=== PATIENT | male | born 1945 | race Caucasian/White ===

== ENCOUNTER → 2021-10-15 09:26 | Outpatient (BNVA) | payer MEDICARE, SELFPAY | PROVIDERS: Visit Provider Surgery | DX: L97.909 Non-pressure chronic ulcer of unspecified part of unspecified lower leg with unspecified severity (principal) | CPT/HCPCS: 99202 ==

== ENCOUNTER 2021-10-23 07:44 | Outpatient (RCR) | payer MEDICARE, SELFPAY | END 2022-02-25 11:08 | disposition home or self-care (01) | LOC: HO.WCC 07:44 | PROVIDERS: PCP Internal Medicine; Visit Provider Surgery | DX: L97.522 Non-pressure chronic ulcer of other part of left foot with fat layer exposed (principal); L97.512 Non-pressure chronic ulcer of other part of right foot with fat layer exposed; S91.002D Unspecified open wound, left ankle, subsequent encounter; L95.9 Vasculitis limited to the skin, unspecified; L03.116 Cellulitis of left lower limb; R60.0 Localized edema; Z79.891 Long term (current) use of opiate analgesic; Z79.52 Long term (current) use of systemic steroids; Z79.899 Other long term (current) drug therapy; Z87.891 Personal history of nicotine dependence | CPT/HCPCS: 11042; 99202; 99212; 99213; 99214; 99215 ==

== ENCOUNTER 2021-10-31 12:16 | Outpatient (REF) | payer MEDICARE, SELFPAY ==
[2021-10-31 13:38] LABS: MANUAL DIFF FLAG NO
[2021-10-31 13:49] LABS: Basophils Absolute Auto 0.1 X10*3/uL (0.0-0.2); Basophils Percent Auto 0.8 % (0-2); Eosinophils Absolute Auto 0.6 X10*3/uL (0.0-0.4); Eosinophils Percent Auto 6.4 % (0-4); Hematocrit 49.7 % (42.0-52.0); Hemoglobin 16.1 g/dl (14.0-18.0); Imm Gran Abs Auto 0.03 X10*3/uL (0.00-0.03); Imm Gran Pct Auto 0.3 % (0.0-0.4); Lymphocytes Absolute Auto 2.2 X10*3/uL (1.2-4.9); Lymphocytes Percent Auto 23.4 % (20-40); Mean Corpuscular HGB Conc 32.4 g/dl (31.0-36.0); Mean Corpuscular Hemoglobin 28.6 pg (27.0-33.0); Mean Corpuscular Volume 88.4 fL (80.0-98.0); Mean Platelet Volume 9.4 fL (9.4-12.4); Monocytes Absolute Auto 0.7 X10*3/uL (0.1-1.2); Monocytes Percent Auto 7.2 % (2-11); Neutrophils Absolute Auto 5.8 x10*3/uL (2.0-8.3); Neutrophils Percent Auto 61.9 % (45-73); Platelet Count 282 X10*3/uL (160-400); Red Blood Count 5.62 X10*6/uL (4.60-5.80); Red Cell Distribution Width 14.9 % (11.0-16.0); White Blood Count 9.3 X10*3/uL (4.8-10.8)
[2021-10-31 13:57] LABS: Alanine Aminotransferase 19 U/L (0-40); Albumin Level 4.4 g/dL (3.5-5.0); Alkaline Phosphatase 45 U/L (39-117); Anion Gap 13 (12-20); Aspartate Amino Transferase 21 U/L (5-37); Bilirubin Total 0.9 mg/dL (0.0-1.0); Blood Urea Nitrogen 25 mg/dL (9-16); Calcium 10.2 mg/dL (8.4-10.2); Carbon Dioxide 30 mmol/L (22-29); Chloride 101 mmol/L (96-108); Cholesterol 210 mg/dL; Estimated Glomerular Filt Rate 45; Glucose Fasting 97 mg/dL (60-99); HDL Cholesterol 39 mg/dL; LDL Cholesterol Calculated 147 mg/dl; Potassium 4.5 mmol/L (3.3-5.1); Sodium 139 mmol/L (135-145); Total Protein 6.9 g/dL (6.5-8.0); Triglycerides 124 mg/dL
[2021-10-31 14:22] LABS: TSH reflex Free T4 1.73 uIU/mL (0.32-4.0); Vitamin D 25-OH Total 33.7 ng/mL (>30)
[2021-10-31 14:34] LABS: Folate 7.9 ng/mL (> or = 4.0); Vitamin B12 485 pg/mL (200-900)
== END 2021-10-31 12:17 | disposition home or self-care (01) ==
LOC: HO.HMGCLDS 12:16
PROVIDERS: Visit Provider Nurse Practitioner Family
DX: Z13.820 Encounter for screening for osteoporosis (principal); Z13.29 Encounter for screening for other suspected endocrine disorder; I10 Essential (primary) hypertension
CPT/HCPCS: 36415; 80053; 80061; 82306; 82607; 82746; 84443; 85025

== ENCOUNTER → 2021-11-05 11:44 | Outpatient (BNVA) | payer MEDICARE, SELFPAY | PROVIDERS: PCP Internal Medicine; Referring Provider Internal Medicine; Visit Provider Surgery | DX: L97.929 Non-pressure chronic ulcer of unspecified part of left lower leg with unspecified severity (principal); L97.919 Non-pressure chronic ulcer of unspecified part of right lower leg with unspecified severity | CPT/HCPCS: 99212 ==

== ENCOUNTER 2021-11-14 13:41 | Outpatient (REF) | payer MEDICARE, SELFPAY ==
[2021-11-14 16:36] LABS: Alanine Aminotransferase 19 U/L (0-40); Albumin Level 4.4 g/dL (3.5-5.0); Alkaline Phosphatase 43 U/L (39-117); Anion Gap 14 (12-20); Aspartate Amino Transferase 19 U/L (5-37); Bilirubin Total 0.6 mg/dL (0.0-1.0); Blood Urea Nitrogen 23 mg/dL (9-16); Calcium 10.4 mg/dL (8.4-10.2); Carbon Dioxide 28 mmol/L (22-29); Chloride 103 mmol/L (96-108); Estimated Glomerular Filt Rate 44; Glucose Random 84 mg/dL (60-115); Potassium 3.9 mmol/L (3.3-5.1); Sodium 141 mmol/L (135-145)
[2021-11-14 17:00] LABS: Erythrocyte Sedimentation Rate 2 MM/HR (0-15)
== END 2021-11-14 13:42 | disposition home or self-care (01) ==
LOC: HO.HMGCLDS 13:41
PROVIDERS: Visit Provider Nurse Practitioner Family
DX: R79.89 Other specified abnormal findings of blood chemistry (principal); M06.9 Rheumatoid arthritis, unspecified
CPT/HCPCS: 36415; 80053; 85652; 86140

== ENCOUNTER 2021-12-05 11:43 | Outpatient (REF) | payer MEDICARE, SELFPAY ==
[2021-12-09 13:41] LABS: Calcium (PTHI) 10.1 mg/dL (8.6-10.3); PTHI 50 pg/mL (16-77)
[2021-12-10 14:36] LABS: Calcium, Ionized 5.3 mg/dL (4.8-5.6)
== END 2021-12-05 11:44 | disposition home or self-care (01) ==
LOC: HO.HMGCLDS 11:43
PROVIDERS: PCP Internal Medicine; Visit Provider Nurse Practitioner Family
DX: E83.52 Hypercalcemia (principal)
CPT/HCPCS: 36415; 82310; 82330; 83970

== ENCOUNTER 2021-12-17 10:25 | Outpatient (REF) | payer MEDICARE, SELFPAY ==
--- NOTE | ~2021-12-17 | MR_ITS ---
EXAMINATION: MRI FOOT WITHOUT CONTRAST, LEFT CLINICAL INFORMATION: Nonhealing wound. Osteomyelitis. COMPARISON: Subsequent left foot CT dated 12/22/2021. TECHNIQUE: Multisequence MR imaging of the left foot was obtained without contrast on a high-field strength scanner. Examination was terminated prematurely due to patient discomfort. Sagittal STIR, sagittal T1, and axial STIR images were obtained. FINDINGS: Evaluation limited due to patient motion and incomplete image acquisition. BONE: Prominent degenerative cystic change at the angle of G[place]. Articular cartilage loss with underlying cerebral cystic change at the dorsal calcaneocuboid joint. Additional degenerative arthritis at the talonavicular and cuneonavicular joints. No prominent marrow edema to suggest acute osteomyelitis, however, evaluation is significantly limited. MUSCLES/TENDONS: The visualized flexor and extensor tendons are grossly intact, however, evaluation is limited due to motion. SOFT TISSUES: Dorsal subcutaneous edema. No organized fluid collection or abscess formation. MR/MR foot LT wo con IMPRESSION: Evaluation significantly limited due to patient motion and incomplete image acquisition. Dorsal subcutaneous edema without evidence of abscess formation. Findings could represent cellulitis in the appropriate clinical setting. No evidence of acute osteomyelitis.
== END 2021-12-17 10:26 | disposition home or self-care (01) ==
LOC: HO.MRI 10:25
PROVIDERS: Visit Provider Psychiatry & Neurology Neurology
DX: M86.9 Osteomyelitis, unspecified (principal)
CPT/HCPCS: 73718

== ENCOUNTER → 2021-12-19 13:52 | Outpatient (BNVA) | payer MEDICARE, SELFPAY | PROVIDERS: PCP Internal Medicine; Visit Provider Nurse Practitioner Family | DX: S81.802A Unspecified open wound, left lower leg, initial encounter (principal); M62.838 Other muscle spasm | CPT/HCPCS: 99202 ==

== ENCOUNTER 2021-12-22 11:13 | Inpatient (IN) | payer MEDICARE, SELFPAY ==
--- NOTE | ~2021-12-22 | XR_ITS ---
EXAMINATION: XR CHEST CLINICAL INFORMATION: Shortness of breath COMPARISON: None TECHNIQUE: Frontal view of the chest was obtained. FINDINGS: No focal consolidation. Bibasilar subsegmental atelectasis. No pleural effusion or pneumothorax. Normal heart size and pulmonary vascularity. No acute or suspicious osseous abnormalities. XR/XR chest 1V IMPRESSION: No acute findings. Bibasilar subsegmental atelectasis.
--- NOTE | ~2021-12-22 | CT_ITS ---
EXAMINATION: CT HEAD WITHOUT CONTRAST CLINICAL INFORMATION: Confusion. Patient is anticoagulated. COMPARISON: None TECHNIQUE: Contiguous axial imaging was performed from the skull base to vertex without intravenous administration of contrast. This CT examination was performed using dose optimization techniques as appropriate, variously including the following: *Automated exposure control *Adjustment of mA and/or kV according to patient size (this includes techniques or standardized protocols for targeted exams where dose is matched to indication/reason for exam; i.e. extremities or head) *Use of iterative reconstruction technique DLP: 782 mGy-cm FINDINGS: There is no evidence of an extra-axial collection. There is no evidence of intra-axial or extra-axial hemorrhage. The ventricles and extra-axial CSF spaces are prominent suggestive of mild generalized atrophy. There is nonspecific periventricular white matter disease. No mass, mass effect or infarct is seen. Review of bone windows is normal. Paranasal sinuses, mastoid air cells and middle ears are clear. CT/CT head/brain wo con IMPRESSION: No acute findings. Mild generalized atrophy and nonspecific periventricular white matter disease.
--- NOTE | ~2021-12-22 | US_ITS ---
EXAMINATION: US VENOUS WITH DOPPLER UPPER EXTREMITY, RIGHT CLINICAL INFORMATION: Upper extremity swelling. COMPARISON: None TECHNIQUE: Ultrasound of the upper extremity is performed using compression sonography and color and pulse Doppler flow with assessment of augmentation of flow. There is also imaging and Doppler assessment of the jugular and subclavian veins. Spectral analysis with color-flow imaging is performed. FINDINGS: Right: No evidence for deep venous thrombosis in the right internal jugular, subclavian, axillary and brachial veins. The right cephalic and basilic veins are patent. The subcutaneous soft tissues are unremarkable. Left: Positive deep venous thrombosis is seen in the left brachial vein. The left internal jugular, subclavian and axillary veins are patent. Positive superficial thrombus with prominent thrombus burden is seen in the left basilic vein proximally and to a lesser extent distally. Positive superficial thrombus is also seen in the left cephalic vein extending to the left forearm. Overlying mild subcutaneous edema is noted. US/US venous duplex UE BI IMPRESSION: 1. Positive deep venous thrombosis in the left brachial vein. Positive superficial thrombus in the left basilic and cephalic veins. 2. No evidence for deep venous thrombosis in the right upper extremity.
--- NOTE | ~2021-12-22 | CT_ITS ---
EXAMINATION: CT foot LT wo con CLINICAL INFORMATION: Reason for Exam r/o osteo nonhealing wound COMPARISON: Limited incomplete noncontrast MRI left foot 12/17/2021 TECHNIQUE: Axial images were obtained through the left foot without the administration of intravenous contrast. Multiplanar reformatted images were generated. Intravenous Contrast: None This CT examination was performed using dose optimization techniques as appropriate, variously including the following: *Automated exposure control *Adjustment of mA and/or kV according to patient size (this includes techniques or standardized protocols for targeted exams where dose is matched to indication/reason for exam; i.e. extremities or head) *Use of iterative reconstruction technique DLP: 219 mGy-cm FINDINGS: No acute fracture or dislocation. No ankle joint effusion. No osseous destructive change or periosteal reaction. Osteoarthritic changes at the ankle, subtalar and Chopart joints with joint space narrowing, subchondral sclerosis and osteophyte formation. Lisfranc alignment is maintained. Vascular remnant and intraosseous fat noted in the calcaneal body at the ankle. Limited assessment of soft tissues to noncontrast CT technique. There are superficial appearing soft tissue wounds/ulcers overlying the dorsal and lateral aspect of the midfoot. No appreciable underlying loculated fluid collection. Broader soft tissue defect/ulcer overlying the distal fibula and peroneal muscles and tendons. No underlying fluid collection. Diffuse subcutaneous edema. No evidence of tenosynovitis. CT/CT foot LT wo con IMPRESSION: 1. No acute osseous injury or CT findings of advanced acute osteomyelitis. 2. Soft tissue ulcers along the midfoot and overlying the distal fibula. 3. No loculated fluid collection to suggest abscess. 4. Diffuse subcutaneous edema.
--- NOTE | ~2021-12-22 | XR_ITS ---
EXAMINATION: XR CHEST CLINICAL INFORMATION: Status post intubation. COMPARISON: 12/22/2021 TECHNIQUE: Frontal view of the chest was obtained. FINDINGS: The endotracheal tube terminates 5 cm above the rosanna. Right internal jugular central venous catheter terminates over the mid SVC. Cardiac leads overlie the chest. The lungs are well expanded. There is new right basilar consolidation. No pleural effusion or pneumothorax. The cardiomediastinal silhouette is unchanged. XR/XR chest 1V IMPRESSION: Endotracheal tube terminates 5 cm above the rosanna. New right basilar airspace opacity which could be aspiration or pneumonia.
--- NOTE | ~2021-12-22 | US_ITS ---
EXAMINATION: ULTRASOUND ARTERIAL DUPLEX UPPER EXTREMITY BILATERAL CLINICAL INFORMATION: Compartment syndrome. COMPARISON: None TECHNIQUE: Multiple 2-D grayscale and duplex Doppler ultrasound images of the arteries of the upper extremities were obtained. FINDINGS: Normal triphasic/biphasic waveforms are seen bilaterally. Peak systolic arterial velocities are as follows in centimeters per second: Subclavian: Right 86. Left 98. Axillary: Right 65. Left 59. Proximal brachial: Right 91. Left 84. Mid brachial: Right 71. Left 72. Distal brachial: Right 68. Left 65. Radial: Right 53. Left 83. Ulnar: Right 40. Left 24. US/US arterial duplex UE BI IMPRESSION: No hemodynamically significant arterial stenosis bilaterally.
--- NOTE | ~2021-12-22 | XR_ITS ---
EXAMINATION: XR CHEST CLINICAL INFORMATION: Evaluation of feeding tube placement COMPARISON: 01/09/2022 earlier exam TECHNIQUE: Frontal view of the chest was obtained. FINDINGS: NG tube is been placed with its tip past the GE junction but not fully included. Other support tubing stable. There is a patchy infiltrate in the right midlung and right lower lung. Given differences in patient obliquity and inspiration and position, little change from the study performed earlier today. Left lung remains grossly clear. Heart size borderline with normal caliber pulmonary vessels. XR/XR chest 1V IMPRESSION: NG tube placed as described. Otherwise no significant change given differences in patient positioning and inspiratory effort.
--- NOTE | ~2021-12-22 | CT_ITS ---
EXAMINATION: CT ANGIOGRAM OF THE CHEST WITH AND WITHOUT CONTRAST (CT PULMONARY ANGIOGRAM FOR PE) CLINICAL INFORMATION: Reason for Exam s/p arrest ? PE COMPARISON: Radiograph from today. TECHNIQUE: Prior to contrast administration, noncontrast localization images were obtained. Subsequently, multidetector volumetric imaging was performed from the thoracic inlet to below the diaphragms following the administration of 100 mL Omnipaque 350 intravenous contrast. No contrast reaction reported Sagittal, coronal, and MIP oblique sagittal reformatted images were obtained on the CT workstation, uploaded to PACS, and reviewed. This CT examination was performed using dose optimization techniques as appropriate, variously including the following: *Automated exposure control *Adjustment of mA and/or kV according to patient size (this includes techniques or standardized protocols for targeted exams where dose is matched to indication/reason for exam; i.e. extremities or head) *Use of iterative reconstruction technique Total exam dose-length product 566 mGy-cm FINDINGS: QUALITY OF STUDY/CONTRAST BOLUS: Satisfactory. PULMONARY ARTERIES: Bilateral pulmonary emboli are present. Left upper lobe lobar level filling defect extending into segmental branches. Left lower lobe subsegmental branch filling defect. Right upper lobe lobar level and lower lobe lobar level filling defects. Right middle lobe segmental level filling defect. THORACIC AORTA: No aneurysm or dissection. LUNG: Endotracheal tube in place which terminates 4 cm above the rosanna. The central airways are patent. There is severe centrilobular and paraseptal emphysema. Right lower lobe consolidation noted. PLEURA: No pleural effusion or pneumothorax. MEDIASTINUM: Normal heart size. No pericardial effusion. No hilar or mediastinal lymphadenopathy. There is septal bowing suggesting right heart strain. CHEST WALL/AXILLA: No axillary or internal mammary lymphadenopathy. OSSEOUS STRUCTURES: No acute or suspicious osseous abnormality. Degenerative changes throughout the spine. UPPER ABDOMEN: There is reflux of contrast into the hepatic veins to suggest elevated right heart pressures. CT/CT angio chest PE protocol IMPRESSION: Bilateral pulmonary emboli. Evidence of elevated right heart pressures. Endotracheal tube terminates 4 cm above the rosanna. Right lower lobe consolidation which is concerning for pneumonia/aspiration. Severe emphysema. This critical result was discussed with Anamaria Rm PA-C, by telephone at 01/09/2022 6:40 AM and it was ascertained that the content and urgency of the report was understood at the time of direct communication. VTE: positive
[2021-12-22 11:15] VITALS: BP 140/89; PULSE 96; RESP 18; TEMP 36.6; O2SAT 94; BMI 25.8
[2021-12-22 11:47] LABS: MANUAL DIFF FLAG NO
[2021-12-22 11:49] LABS: Basophils Percent Auto 0.3 % (0-2); Eosinophils Percent Auto 0.3 % (0-4); Hematocrit 48.4 % (42.0-52.0); Hemoglobin 16.3 g/dl (14.0-18.0); Imm Gran Abs Auto 0.09 X10*3/uL (0.00-0.03); Imm Gran Pct Auto 0.6 % (0.0-0.4); Lymphocytes Absolute Auto 1.5 X10*3/uL (1.2-4.9); Lymphocytes Percent Auto 10.7 % (20-40); Mean Corpuscular HGB Conc 33.7 g/dl (31.0-36.0); Mean Corpuscular Hemoglobin 30.4 pg (27.0-33.0); Mean Corpuscular Volume 90.1 fL (80.0-98.0); Mean Platelet Volume 8.5 fL (9.4-12.4); Monocytes Absolute Auto 0.7 X10*3/uL (0.1-1.2); Monocytes Percent Auto 4.8 % (2-11); Neutrophils Percent Auto 83.3 % (45-73); Platelet Count 239 X10*3/uL (160-400); Red Blood Count 5.37 X10*6/uL (4.60-5.80); Red Cell Distribution Width 13.8 % (11.0-16.0); White Blood Count 14.4 X10*3/uL (4.8-10.8)
[2021-12-22 11:58] LABS: Lactic Acid 1.3 mmol/L (0.5-2.0)
[2021-12-22 12:02] LABS: Anion Gap 15 (12-20); Blood Urea Nitrogen 19 mg/dL (9-16); C Reactive Protein 0.05 mg/dL (< or = 0.50); Calcium 9.5 mg/dL (8.4-10.2); Carbon Dioxide 24 mmol/L (22-29); Chloride 105 mmol/L (96-108); Creatinine Clr Calc Pharmacy 44.3; Estimated Glomerular Filt Rate 55; Glucose Random 83 mg/dL (60-115); Sodium 140 mmol/L (135-145)
[2021-12-22 12:43] LABS: Erythrocyte Sedimentation Rate 1 MM/HR (0-15)
[2021-12-22] MEDS: Acetaminophen 325 MG TABLET 650 MG PO (15:46)
--- NOTE | 2021-12-22 17:15 | ED_ITS ---
HPI - General Adult General Chief complaint: General Medical Stated complaint: severe open wound L leg Time Seen by Provider: 12/22/21 17:15 Source: patient Mode of arrival: ambulatory Limitations: no limitations History of Present Illness HPI narrative: Patient comes to the emergency room complaining of a wound on his left foot. Patient has been seen at the [facility] for several months. The patient's states that 3 days ago, the wound started turning black, and this morning redness started spreading upwards. Patient denies fever chills. Patient states his foot is very painful. Patient went to the wound clinic today, they asked the patient to come to the emergency room, patient will need IV antibiotics and inpatient treatment. On December 17, patient had an MRI done of his foot. However, patient has intermittent twitching of his foot, his images were not ideal, not read by radiology yet Related Data Home Medications Medication Instructions Recorded Confirmed umeclidinium 62.5 mcg-vilanterol 1 inh inhalation DAILY PRN 10/15/21 12/22/21 25 mcg/actuation powdr for Shortness Of Breath inhalation (Anoro Ellipta) acetaminophen 500 mg tablet 1,000 mg PO Q6H PRN Pain (Scale 10/30/21 12/22/21 (Tylenol Extra Strength) Score 1-3) albuterol sulfate 90 mcg/actuation 2 puff inhalation Q6H PRN 11/28/21 12/22/21 aerosol inhaler (ProAir HFA) Shortness Of Breath tocilizumab 80 mg/4 mL (20 mg/mL) 0 mg IV Q30D 11/28/21 12/22/21 intravenous solution (Actemra) duloxetine 20 mg capsule,delayed 20 mg PO BEDTIME 12/19/21 12/22/21 release prednisone 10 mg tablet See Taper PO DAILY 12/19/21 12/22/21 Previous Rx's Medication Instructions Recorded baclofen 10 mg tablet 10 mg PO BID #60 tabs 12/19/21 Allergies Allergy/AdvReac Type Severity Reaction Status Date / Time No Known Allergies Allergy Verified 12/22/21 11:15 [No Known Allergies*] Review of Systems Review of Systems: Constitutional : No Weight loss, No Fever, No Chills, No Night Sweats, No Fatigue, No Malaise ENT/Mouth : No Hearing loss, No Ear Pain, No Nasal Congestion, No Sinus Pain, No Hoarseness, No sore throat, No Rhinorrhea, No Swallowing Difficulty Eyes: No Eye Pain, No Swelling, No Redness, No Foreign Body, No Discharge, No Vision Changes Cardiovascular : No Chest Pain, No SOB, No Dyspnea on Exertion, No Orthopnea, No Edema, No Palpitations Respiratory : No Cough, No Sputum, No Wheezing, No Smoke Exposure, No Dyspnea Gastrointestinal : No Nausea, No Vomiting, No Diarrhea, No Constipation, No abdominal Pain, No Hematochezia, No Melena Genitourinary : no irregular bleeding, No Dysuria, No Urinary Frequency, No Hematuria, No Urinary Incontinence, No Urgency, No Flank Pain, No Urinary Flow Changes, No Hesitancy Musculoskeletal : No joint pain, No Myalgias, No Joint Swelling Skin : Large skin lesion, draining odorous yellowish fluid, very painful to touch Neuro : No Weakness, No Numbness, No Paresthesias, No Loss of Consciousness, No Dizziness, No Headache Psych : No Anxiety/Panic, No Depression, No SI/HI/AH/VH, No Social Issues, Heme/Lymph: No Bruising, No Bleeding,No Lymphadenopathy Endocrine : No Polyuria, No Polydipsia, No Temperature Intolerance [facility] Past Medical History Medical History (Updated 12/22/21 @ 17:45 by Isamar Smith MD) Chronic ulcer of leg CKD (chronic kidney disease) stage 3, GFR 30-59 ml/min COPD (chronic obstructive pulmonary disease) Elevated serum creatinine HTN (hypertension) Rheumatoid arthritis Sjogren's disease Vasculitis Surgical History History of hernia repair History of left knee replacement Social History Social History (Updated 11/28/21 @ 13:45 by Kia Stroud MD) Housing: House Alcohol intake: current Patient Tobacco Use Status: Former Tobacco user Tobacco use type: Cigarette Years Smoked: quit 2019 e-Cigarette/Vaping Use: Never Used Advance Directives: Yes Advance Directives Information Provided: Yes Advance Directives on File: No Current occupational status: retired Cognitive needs: Yes (cane) Hearing needs: No Vision needs: Yes (Pt wear glasses. ) Physical Exam ED Vital Signs: Vital Signs - 24 hr 12/22/21 11:15 12/22/21 18:52 12/22/21 19:37 Temperature 97.8 F 99.5 F 99.1 F Pulse Rate 96 104 H 92 Respiratory Rate 18 18 23 H Blood Pressure 140/89 H 134/86 145/83 H Pulse Oximetry 94 90 L 94 Oxygen Delivery Method Room Air Room Air Room Air BMI result Body Mass Index 25.8 Const Other: Appearance: Alert. Oriented X3. No acute distress. Well-appearing Eyes: Pupils equal, round and reactive to light. ENT: Pharynx normal. Neck: Normal inspection. Neck supple. No lymph nodes noted. No crepitus CVS: Normal heart rate and rhythm. Pulses normal. Normal S1 and S2 Respiratory: No respiratory distress. Breath sounds normal. No Wheezing. No rales Abdomen: Soft and nontender. No rigidity. No distention. Skin: Skin warm and dry. Normal skin color. However, left extremity, erythema spreading upwards from the ankle, significant ulcerations at the ankle, see pictures below Extremities: No lower extremity edema. See skin Neuro: Oriented X 3. No motor deficit. No sensory deficit. Moving all extremities. No slurred speech. CN 2 through 12 grossly intact Psych: calm, cooperative, normal affect Course Course Course Narrative: I discussed the patient with , he will be consulting tomorrow for possible debridement Patient was started on Zosyn and vancomycin. White blood cell count is elevated, normal lactic acid, normal blood pressure, no fever or chills. Sepsis not suspected. CT scan does not show osteomyelitis. I discussed the patient with Dr. Mckeon, pt being admitted Medical Decision Making Lab Data Result diagrams: 12/22/21 11:41 12/22/21 11:41 Labs: Lab Results 12/22/21 12/22/21 12/22/21 Range/Units 11:41 11:41 11:41 WBC 14.4 H (4.8-10.8) X10*3/uL RBC 5.37 (4.60-5.80) X10*6/uL Hgb 16.3 (14.0-18.0) g/dl Hct 48.4 (42.0-52.0) % MCV 90.1 (80.0-98.0) fL MCH 30.4 (27.0-33.0) pg MCHC 33.7 (31.0-36.0) g/dl RDW 13.8 (11.0-16.0) % Plt Count 239 (160-400) X10*3/uL MPV 8.5 L (9.4-12.4) fL Immature Gran % (Auto) 0.6 H (0.0-0.4) % Neut % (Auto) 83.3 H (45-73) % Lymph % (Auto) 10.7 L (20-40) % [place] % (Auto) 4.8 (2-11) % Eos % (Auto) 0.3 (0-4) % Baso % (Auto) 0.3 (0-2) % Lymph # (Auto) 1.5 (1.2-4.9) X10*3/uL [place] # (Auto) 0.7 (0.1-1.2) X10*3/uL Eos # (Auto) 0.0 (0.0-0.4) X10*3/uL Baso # (Auto) 0.0 (0.0-0.2) X10*3/uL Abs Immat Gran (auto) 0.09 H (0.00-0.03) X10*3/uL Absolute Neuts (auto) 12.0 H (2.0-8.3) x10*3/uL Absolute Nucleated RBC 0.000 (0.0-0.012) X10*3/uL Nucleated RBC % (auto) 0.0 (0.0-0.2) /100WBC ESR 1 (0-15) MM/HR Sodium 140 (135-145) mmol/L Potassium 4.0 (3.3-5.1) mmol/L Chloride 105 (96-108) mmol/L Carbon Dioxide 24 (22-29) mmol/L Anion Gap 15 (12-20) BUN 19 H (9-16) mg/dL Creatinine 1.28 (0.5-1.4) mg/dL Estim Creat Clear Calc 44.3 Estimated GFR 55 Random Glucose 83 (60-115) mg/dL Lactic Acid (0.5-2.0) mmol/L Calcium 9.5 (8.4-10.2) mg/dL C-Reactive Protein 0.05 (< or = 0.50) mg/dL 12/22/21 Range/Units 11:41 WBC (4.8-10.8) X10*3/uL RBC (4.60-5.80) X10*6/uL Hgb (14.0-18.0) g/dl Hct (42.0-52.0) % MCV (80.0-98.0) fL MCH (27.0-33.0) pg MCHC (31.0-36.0) g/dl RDW (11.0-16.0) % Plt Count (160-400) X10*3/uL MPV (9.4-12.4) fL Immature Gran % (Auto) (0.0-0.4) % Neut % (Auto) (45-73) % Lymph % (Auto) (20-40) % [place] % (Auto) (2-11) % Eos % (Auto) (0-4) % Baso % (Auto) (0-2) % Lymph # (Auto) (1.2-4.9) X10*3/uL [place] # (Auto) (0.1-1.2) X10*3/uL Eos # (Auto) (0.0-0.4) X10*3/uL Baso # (Auto) (0.0-0.2) X10*3/uL Abs Immat Gran (auto) (0.00-0.03) X10*3/uL Absolute Neuts (auto) (2.0-8.3) x10*3/uL Absolute Nucleated RBC (0.0-0.012) X10*3/uL Nucleated RBC % (auto) (0.0-0.2) /100WBC ESR (0-15) MM/HR Sodium (135-145) mmol/L Potassium (3.3-5.1) mmol/L Chloride (96-108) mmol/L Carbon Dioxide (22-29) mmol/L Anion Gap (12-20) BUN (9-16) mg/dL Creatinine (0.5-1.4) mg/dL Estim Creat Clear Calc Estimated GFR Random Glucose (60-115) mg/dL Lactic Acid 1.3 (0.5-2.0) mmol/L Calcium (8.4-10.2) mg/dL C-Reactive Protein (< or = 0.50) mg/dL Imaging Data Foot CT: Radiologist's impression: FINDINGS: No acute fracture or dislocation. No ankle joint effusion. No osseous destructive change or periosteal reaction. Osteoarthritic changes at the ankle, subtalar and Chopart joints with joint space narrowing, subchondral sclerosis and osteophyte formation. Lisfranc alignment is maintained. Vascular remnant and intraosseous fat noted in the calcaneal body at the ankle. Limited assessment of soft tissues to noncontrast CT technique. There are superficial appearing soft tissue wounds/ulcers overlying the dorsal and lateral aspect of the midfoot. No appreciable underlying loculated fluid collection. Broader soft tissue defect/ulcer overlying the distal fibula and peroneal muscles and tendons. No underlying fluid collection. Diffuse subcutaneous edema. No evidence of tenosynovitis. CT/CT foot LT wo con IMPRESSION: ? 1. No acute osseous injury or CT findings of advanced acute osteomyelitis. 2. Soft tissue ulcers along the midfoot and overlying the distal fibula. 3. No loculated fluid collection to suggest abscess. 4. Diffuse subcutaneous edema. Discharge Plan Discharge Clinical Impression: Chronic ulcer of leg, Cellulitis Patient Disposition: Admitted As Inpatient
--- NOTE | 2021-12-22 17:41 | PM.CNGS ---
History of Present Illness Consult details Consult date: 12/22/21 Narrative: 76M here in the ED for painful left leg/foot ulcers. He has hx of RA and Sjogrens disease, and has had painful chronicu ulcers on bothe lower extremities for years. He has been seeing multiple doctors in [place] , including rheumatologists, neurologists and a wound care clinic but has recently moved to the area. He has been following the Wound Clinic. He apparently has had worsening of the left lower leg ulcer with discoloration, boyce and redness so he was sent to the ED earlier today. Review of Systems Constitutional: Constitutional: Denies chills and Denies fever(s) Cardiovascular: Cardiovascular: Denies chest pain, Denies dyspnea and Denies dyspnea on exertion Respiratory: Respiratory: Denies cough, Denies dyspnea and Denies dyspnea on exertion Gastrointestinal: Gastrointestinal: Denies hematochezia and Denies change in bowel habits Genitourinary: Genitourinary: Denies hematuria and Denies difficulty urinating Musculoskeletal: Musculoskeletal: Reports back pain and Reports limited range of motion Neurologic: Denies focal weakness and Denies convulsions Psychiatric: Psychiatric: Denies depression and Denies mood swings [facility] Past Medical History Medical History Chronic ulcer of leg CKD (chronic kidney disease) stage 3, GFR 30-59 ml/min COPD (chronic obstructive pulmonary disease) Elevated serum creatinine HTN (hypertension) Rheumatoid arthritis Sjogren's disease Vasculitis Family History Family History Other No family history of coronary artery disease Surgical History Surgical History History of hernia repair History of left knee replacement Social History Social History Household Members: Spouse Housing: House Do you presently have visiting nurse or other home services: No Alcohol intake: current Alcohol intake frequency: former alcohol drinker Patient Tobacco Use Status: Former Tobacco user Tobacco use type: Cigarette Years Smoked: quit 2019 e-Cigarette/Vaping Use: Never Used Advance Directives Date on File: 12/23/21 service: No Current occupational status: retired Cognitive needs: Yes (cane) Hearing needs: No Vision needs: Yes (Pt wear glasses. ) Meds Allergies Allergy/AdvReac Type Severity Reaction Status Date / Time No Known Allergies Allergy Verified 12/22/21 11:15 [No Known Allergies*] Active Medications: Current Medications Piperacillin Sod/Tazobactam (Sod 3.375 gm/ Sodium Chloride) 50 mls @ 100 mls/hr IV ONCE ONE Stop: 12/22/21 17:56 Vancomycin HCl 1,000 mg/Vancomycin HCl 750 mg/ Sodium Chloride 535 mls @ 267.5 mls/hr IV ONCE ONE Stop: 12/22/21 19:44 Pharmacy Consult (Consult Rx Vancomycin Dosing) 1 each MISCELLANE DAILY PRN PRN Reason: Consult order Pharmacy Consult (Consult Rx Perform Med Rec) 1 each MISCELLANE ONCE PRN PRN Reason: Consult order Home Medications Medication Instructions Recorded Confirmed Last Taken Type umeclidinium 62.5 mcg-vilanterol 1 inh inhalation DAILY PRN 10/15/21 12/22/21 Unknown History 25 mcg/actuation powdr for Shortness Of Breath inhalation (Anoro Ellipta) acetaminophen 500 mg tablet 1,000 mg PO Q6H PRN Pain (Scale 10/30/21 12/22/21 12/22/21 History (Tylenol Extra Strength) Score 1-3) albuterol sulfate 90 mcg/actuation 2 puff inhalation Q6H PRN 11/28/21 12/22/21 Unknown History aerosol inhaler (ProAir HFA) Shortness Of Breath tocilizumab 80 mg/4 mL (20 mg/mL) 0 mg IV Q30D 11/28/21 12/22/21 12/02/21 History intravenous solution (Actemra) duloxetine 20 mg capsule,delayed 20 mg PO BEDTIME 12/19/21 12/22/21 12/21/21 History release prednisone 10 mg tablet See Taper PO DAILY 12/19/21 12/22/21 12/21/21 History Physical Exam Vital Signs: Vital Signs: Last Vital Signs Temp 97.8 F 12/22/21 11:15 Pulse 96 12/22/21 11:15 Resp 18 12/22/21 11:15 BP 140/89 H 12/22/21 11:15 Pulse Ox 94 12/22/21 11:15 O2 Del Method 12/22/21 11:15 BMI result Body Mass Index 25.8 Const: General: comfortable and no acute distress Orientation/consciousness: patient oriented x3 Neck: Neck: Yes no lymphadenopathy Resp: Auscultation: clear to auscultation bilaterally Cardio: Rhythm: regular rhythm GI: Palpation (GI): Soft to palpation, nontender and no guarding Neuro: General: patient oriented x3 Extrem: Other: large ulcer, left lower leg, near the ankle, about 9 cm by 5 cm in widest dimension with surrounding redness, some nonviable coating with discoloration, very tender Results Labs Result diagrams: 12/25/21 05:59 12/25/21 05:59 Labs: Abnormal lab results 12/22/21 12/22/21 Range/Units 11:41 11:41 WBC 14.4 H (4.8-10.8) X10*3/uL MPV 8.5 L (9.4-12.4) fL Immature Gran % (Auto) 0.6 H (0.0-0.4) % Neut % (Auto) 83.3 H (45-73) % Lymph % (Auto) 10.7 L (20-40) % Abs Immat Gran (auto) 0.09 H (0.00-0.03) X10*3/uL Absolute Neuts (auto) 12.0 H (2.0-8.3) x10*3/uL BUN 19 H (9-16) mg/dL Short CBC 12/22/21 Range/Units 11:41 WBC 14.4 H (4.8-10.8) X10*3/uL Hgb 16.3 (14.0-18.0) g/dl Hct 48.4 (42.0-52.0) % Plt Count 239 (160-400) X10*3/uL BMP 12/22/21 11:41 Sodium 140 Potassium 4.0 Chloride 105 Carbon Dioxide 24 BUN 19 H Creatinine 1.28 Calcium 9.5 All other labs normal. Assessment and Plan (1) Chronic ulcer of leg: Status: Acute Plan He has a leg ulcer as described above with worsening pain, redness and discoloration starting last weel. There appears to be a coating of nonviable tissue. This needs to be debrided in the OR under anesthesia. I explained the technique of this procedure. I reviewed the risks including but not limited to bleeding and infections and postop pain. We will try to have this done in the OR tomorrow. In the meantime, he will be admitted to the Medical service and will be started on empiric antibiotics. Procedures Date of Service Date of Service: 12/22/21
[2021-12-22] MEDS: Piperacillin Sodium/Tazobactam 3.375 GM in 0.9 % Sodium Chloride 50 ML IV (18:04)
--- NOTE | 2021-12-22 18:35 | PHA.MEDREC ---
Pharmacy Consult ? Medication Reconciliation Pharmacy has completed the medication reconciliation. Spoke with patient and who had RX bottles with her. patient takes Anoro Ellipta PRN. Patient is on Prednisone taper and will be on 20 mg daily until until and then 10 mg daily x 7 days starting wednesday. Actemra for RA was last administered on 12/02/21
[2021-12-22 18:52] VITALS: BP 134/86; PULSE 104; RESP 18; TEMP 37.5; O2SAT 90
[2021-12-22] MEDS: vancomycin HCL 1,000 MG, vancomycin HCL 750 MG in 0.9 % Sodium Chloride 500 ML 267.5 MG IV (19:04)
[2021-12-22 19:37] VITALS: BP 145/83; PULSE 92; RESP 23; TEMP 37.3; O2SAT 94
--- NOTE | 2021-12-22 19:41 | PC.NURSE ---
Addendum entered by Tejal Razo 12/23/21 06:57: Report given to RICKEY Rose Addendum entered by Tejal Razo 12/22/21 22:45: pt c/o bilateral lower leg pain. Dr. Mckeon made aare. pt desat to 86%RA on good pleth. pt started on 3L oxygen increase to 92%. Dr. Mckeon made aware, will order chest xray Original Note: Report received from RICKEY Bangura. pt is alert and oriented. resting in bed. no signs of acute distress notice. breathing equally unlabored. pt started on continuos cardiac monitoring
[2021-12-22] MEDS: Baclofen 10 MG TABLET PO (20:04)
[2021-12-22] MEDS: DULoxetine HCl 20 MG CAPSULE.DR PO (20:31)
[2021-12-22] MEDS: HYDROmorphone HCl 0.5 MG/0.5 ML SYRINGE IVPUSH (22:33)
[2021-12-22 22:35] VITALS: BP 103/63; PULSE 100; RESP 25; O2SAT 93
--- NOTE | 2021-12-22 22:48 | P.HPHOSP_ITS ---
History of Present Illness Date of Service: 12/22/21 Chief Complaint: leg pain This is a 76-year-old male with past medical history of chronic ulcer of leg, CKD, COPD, HTN, rheumatoid arthritis, Sjogren's disease, and 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 although patient and his deny at this time comes into the hospital from wound clinic for nonhealing left lower extremity wound. Patient reports that he has had this wound for several months, following at the wound clinic, he he has been experiencing increased pain, drainage, and redness at the side of the wound and therefore went to the wound clinic today and was asked to come to the hospital. Patient reports that he noticed drainage about 5 days ago, the left lower extremity became significantly red and experience 10/10 constant nonradiating, pain that is not alleviated with Tylenol or ibuprofen. Patient denies any fever but has had chills, reports no chest pain, no abdominal pain, some nausea with 1 episode of vomiting, no diarrhea constipation, no urin parth symptoms. On arrival to the ED patient hemodynamically stable with no significant abnormal vitals Labs are significant for WBC count of 14.4, creatinine of 1.28, hives otherwise unremarkable, ESR normal, CRP normal, Foot CT shows no acute osseous injury on CT findings suggestive of advanced osteomyelitis, soft tissue ulcers along the midfoot and overlaying the distal fibula, no loculated fluid collection, diffuse subcutaneous edema General surgery was consulted and evaluated the patient, planned for surgical debridement in a.m. Review of Systems Review of Systems: Yes all other systems are reviewed and are negative [facility] Medical History Chronic ulcer of leg CKD (chronic kidney disease) stage 3, GFR 30-59 ml/min COPD (chronic obstructive pulmonary disease) Elevated serum creatinine HTN (hypertension) Rheumatoid arthritis Sjogren's disease Vasculitis Family History (Updated 12/23/21 @ 06:28 by Bridget Mckeon MD) Other No family history of coronary artery disease Surgical History History of hernia repair History of left knee replacement Social History Housing: House Alcohol intake: current Patient Tobacco Use Status: Former Tobacco user Tobacco use type: Cigarette Years Smoked: quit 2019 e-Cigarette/Vaping Use: Never Used Advance Directives: Yes Advance Directives Information Provided: Yes Advance Directives on File: No Current occupational status: retired Cognitive needs: Yes (cane) Hearing needs: No Vision needs: Yes (Pt wear glasses. ) Meds Allergies Allergy/AdvReac Type Severity Reaction Status Date / Time No Known Allergies Allergy Verified 12/22/21 11:15 [No Known Allergies*] Active Medications: Current Medications Acetaminophen (Acetaminophen 325 Mg Tablet) 650 mg PO Q6H PRN PRN Reason: Pain (Scale Score 1-3) Baclofen (Baclofen 10 Mg Tablet) 10 mg PO BID ON LICENSE OF [facility] Last Admin: 12/22/21 20:04 Dose: 10 mg Duloxetine HCl (Duloxetine Hcl 20 Mg Capsule.Dr) 20 mg PO BEDTIME ON LICENSE OF [facility] Last Admin: 12/22/21 20:31 Dose: 20 mg Pharmacy Consult (Consult Rx Vancomycin Dosing) 1 each MISCELLANE DAILY PRN PRN Reason: Consult order Pharmacy Consult (Consult Rx Perform Med Rec) 1 each MISCELLANE ONCE PRN PRN Reason: Consult order Home Medications Medication Instructions Recorded Confirmed Last Taken Type umeclidinium 62.5 mcg-vilanterol 1 inh inhalation DAILY PRN 10/15/21 12/22/21 Unknown History 25 mcg/actuation powdr for Shortness Of Breath inhalation (Anoro Ellipta) acetaminophen 500 mg tablet 1,000 mg PO Q6H PRN Pain (Scale 10/30/21 12/22/21 12/22/21 History (Tylenol Extra Strength) Score 1-3) albuterol sulfate 90 mcg/actuation 2 puff inhalation Q6H PRN 11/28/21 12/22/21 Unknown History aerosol inhaler (ProAir HFA) Shortness Of Breath tocilizumab 80 mg/4 mL (20 mg/mL) 0 mg IV Q30D 11/28/21 12/22/21 12/02/21 History intravenous solution (Actemra) duloxetine 20 mg capsule,delayed 20 mg PO BEDTIME 12/19/21 12/22/21 12/21/21 History release prednisone 10 mg tablet See Taper PO DAILY 12/19/21 12/22/21 12/21/21 History Physical Exam Vital Signs and Narrative: Vital Signs: Last Vital Signs Temp 99.1 F 12/22/21 19:37 Pulse 100 12/22/21 22:35 Resp 25 H 12/22/21 22:35 BP 103/63 12/22/21 22:35 Pulse Ox 93 12/22/21 22:35 O2 Del Method 12/22/21 22:35 BMI result Body Mass Index 25.8 Const: Other: Patient is sitting up in bed , appears in pain and uncomfortable General: coope rative Orientation/consciousness: patient oriented x3 Eyes: General: appearance normal, both eyes and all related structures Pupils: Equal, round and reactive pupils present Resp: Effort & Inspection: normal respiratory effort Auscultation: clear to auscultation bilaterally Cardio: Rate: regular rate Rhythm: regular rhythm GI: Palpation (GI): Soft to palpation Auscultation: normal bowel sounds Skin: Other: Significant aspiration on the lateral aspect of left lower extremity, has erythema extending to just below the left knee, warmth, significant tenderness on palpation, General skin exam: no rashes or lesions noted Neuro: General: patient oriented x3 Cranial nerves: Yes Equal, round and reactive pupils present Cognition (Neuro): normal cognition Extrem: General: Yes normal to inspection and Yes no pedal edema Results Labs CBC and Chem 7: 12/23/21 04:07 12/23/21 04:07 Labs: Laboratory Results - last 24 hr 12/22/21 12/22/21 12/22/21 11:41 11:41 11:41 MCV 90.1 MCH 30.4 MCHC 33.7 RDW 13.8 Plt Count 239 MPV 8.5 L Immature Gran % (Auto) 0.6 H Neut % (Auto) 83.3 H Lymph % (Auto) 10.7 L [place] % (Auto) 4.8 Eos % (Auto) 0.3 Baso % (Auto) 0.3 Lymph # (Auto) 1.5 [place] # (Auto) 0.7 Eos # (Auto) 0.0 Baso # (Auto) 0.0 Abs Immat Gran (auto) 0.09 H Absolute Neuts (auto) 12.0 H Absolute Nucleated RBC 0.000 Nucleated RBC % (auto) 0.0 ESR 1 Anion Gap 15 Estim Creat Clear Calc 44.3 Estimated GFR 55 Random Glucose 83 Lactic Acid Calcium 9.5 C-Reactive Protein 0.05 12/22/21 11:41 MCV MCH MCHC RDW Plt Count MPV Immature Gran % (Auto) Neut % (Auto) Lymph % (Auto) [place] % (Auto) Eos % (Auto) Baso % (Auto) Lymph # (Auto) [place] # (Auto) Eos # (Auto) Baso # (Auto) Abs Immat Gran (auto) Absolute Neuts (auto) Absolute Nucleated RBC Nucleated RBC % (auto) ESR Anion Gap Estim Creat Clear Calc Estimated GFR Random Glucose Lactic Acid 1.3 Calcium C-Reactive Protein Imaging Radiologist's Impressions: Impressions Foot CT 12/22/21 19:06 IMPRESSION: 1. No acute osseous injury or CT findings of advanced acute osteomyelitis. 2. Soft tissue ulcers along the midfoot and overlying the distal fibula. 3. No loculated fluid collection to suggest abscess. 4. Diffuse subcutaneous edema. Assessment and Plan (1) Non-healing wound of left lower extremity: Status: Acute (2) Cellulitis: Status: Acute (3) Chronic ulcer of leg: Status: Acute Plan This is a 76-year-old male with past medical history of chronic leg wound, Sjogren's disease, 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 presents to the hospital of complaints of worsening pain on his left lower leg # nonhealing wound of left lower extremity - patient was increased erythema, pain, wound drainage of a chronic lower extremity ulcer - patient and at bedside reports the patient is being investigated for poss ible vasculitis but has not been confirm have vasculitis - no history of diabetes - afebrile but has leukocytosis - will start patient on IV antibiotics - follow blood cultures - normal ESR and CRP therefore osteomyelitis less likely - surgery consulted for surgical debridement # cellulitis - erythema, warmth, tenderness, as well as edema up to just below the left knee - will treat with IV antibiotics, cover for staph given the drainage and skin breakdown - follow cultures - infectious disease consulted # rheumatoid arthritis - continue home medication as well as prednisone # COPD - not in exacerbation - continue home inhalers DVT prophylaxis: Heparin subQ Given the patient's need for surgical intervention as well as IV antibiotics he will require a minimum 2 night hospital stay for further management and monitoring Quality Stroke Does the patient have a stroke diagnosis?: No VTE Prior VTE?: No VTE Risk Level:: Medical - moderate - high VTE Device Contraindication: Treatment Not Indicated VTE Drug Contraindication: N/A - Med Ordered
[2021-12-23] VITALS (23 sets, daily range): BP systolic 94–158; BP diastolic 53–97; PULSE 69–113; RESP 12–22; TEMP 36.2–37.3; O2SAT 90–99
[2021-12-23] MEDS: Piperacillin Sodium/Tazobactam 3.375 GM in 0.9 % Sodium Chloride 50 ML IV ×3 (03:19→20:36)
[2021-12-23] MEDS: HYDROmorphone HCl 1 MG/ML SYRINGE 0.5 MG IVPUSH ×2 (03:20→08:37)
[2021-12-23] MEDS: Heparin Sodium,Porcine 5,000 UNIT/ML VIAL 5000 UNIT SUBCUT ×2 (03:22→19:37)
[2021-12-23 04:13] LABS: Basophils Absolute Auto 0.1 X10*3/uL (0.0-0.2); Basophils Percent Auto 0.2 % (0-2); Hematocrit 44.1 % (42.0-52.0); Hemoglobin 14.4 g/dl (14.0-18.0); Imm Gran Abs Auto 0.66 X10*3/uL (0.00-0.03); Imm Gran Pct Auto 2.7 % (0.0-0.4); Lymphocytes Absolute Auto 0.6 X10*3/uL (1.2-4.9); Lymphocytes Percent Auto 2.6 % (20-40); MANUAL DIFF FLAG SCAN; Mean Corpuscular HGB Conc 32.7 g/dl (31.0-36.0); Mean Corpuscular Hemoglobin 29.9 pg (27.0-33.0); Mean Corpuscular Volume 91.7 fL (80.0-98.0); Mean Platelet Volume 8.4 fL (9.4-12.4); Monocytes Absolute Auto 1.4 X10*3/uL (0.1-1.2); Monocytes Percent Auto 5.8 % (2-11); Neutrophils Absolute Auto 21.4 x10*3/uL (2.0-8.3); Neutrophils Percent Auto 88.7 % (45-73); Platelet Count 179 X10*3/uL (160-400); Red Blood Count 4.81 X10*6/uL (4.60-5.80); SCAN SMEAR FLAG 1; White Blood Count 24.2 X10*3/uL (4.8-10.8)
[2021-12-23 04:31] LABS: Anion Gap 13 (12-20); Blood Urea Nitrogen 22 mg/dL (9-16); Calcium 8.6 mg/dL (8.4-10.2); Carbon Dioxide 22 mmol/L (22-29); Chloride 107 mmol/L (96-108); Creatinine Clr Calc Pharmacy 37.5; Estimated Glomerular Filt Rate 45; Glucose Random 116 mg/dL (60-115); Potassium 4.2 mmol/L (3.3-5.1); Sodium 138 mmol/L (135-145)
[2021-12-23 04:32] LABS: SLIDE REVIEW VERIFIED
[2021-12-23] MEDS: Lactated Ringers 1,000 ML 100 ML IVCONT ×2 (06:32→16:51)
[2021-12-23] MEDS: Baclofen 10 MG TABLET PO ×2 (08:30→19:37)
[2021-12-23 09:14] LABS: COVID-19 Test Negative (Negative); IDNOW Serial# 16C4AD1C
--- NOTE | 2021-12-23 12:03 | PHA.PROG ---
Admission Date/Time: December 22, 2021 22:46 Indication: Cellulitis Weight in k.575 kg Adjusted body weight in K.5 kg [place] body weight in K.8 Obesity Dosing Indication % IBW: 113% Serum Creatinine - Last 168 Hours 12/22/21 12/23/21 11:41 04:07 Creatinine 1.28 1.51 H Estimated CrCl and GFR - Last 168 Hours 12/22/21 12/23/21 11:41 04:07 Estim Creat Clear Calc 44.3 37.5 Estimated GFR 55 45 Vancomycin Loading Dose: 1750 mg (24 mg/kg) Current Vancomycin Dosing Regimen: 100 mgQ24H Date and Time for next Vancomycin Level to be drawn: 12/24 @ 1700 Pharmacist Comments on Vancomycin Plan: Patient recieve an adequate loading dose of vancomycin 1750 mg in the ED 12/22 @ 1900 Maintenance dose vancomycin 100 mg Q24H to begin 12/23 @ 1900. Expected AUC 498 with a trough of 498. Patient renal fucntion is decline with an increase of Scr 1.28 to 1.5. Will get a random level 12/24 @ 1700 prior to 3rd dose to access for patient safety as renal function is decline Pharmacy will monitor renal function daily Keiry Llamas PharmD Vancomycin dosing will take advantage of [employer] as a clinical decision support tool that uses Bayesian modeling to calculate individual patient's pharmacokinetic parameters and forecast the patient's drug concentration time course with the target goal AUC 24 range of 400 - 600 mg/L/hr.
--- NOTE | 2021-12-23 12:24 | HO.ANESPROP2 ---
HPI - Anesthesia Eval Consult details Narrative: Left lower extremity non-healing ulcer PMFSH Active Problems Active Problems: All Active Problems (Updated 12/23/21 @ 06:30 by Bridget Mckeon MD) Non-healing wound of left lower extremity (Acute) Chronic ulcer of leg (Acute) Cellulitis (Acute) Guaiac positive stools (Acute) Annual physical exam (Acute) Hypercalcemia (Acute) Leg pain, bilateral (Acute) Chronic venous insufficiency (Acute) Past Medical History Medical History Chronic ulcer of leg CKD (chronic kidney disease) stage 3, GFR 30-59 ml/min COPD (chronic obstructive pulmonary disease) Elevated serum creatinine HTN (hypertension) Rheumatoid arthritis Sjogren's disease Vasculitis Family History Family History (Updated 12/23/21 @ 06:28 by Bridget Mckeon MD) Other No family history of coronary artery disease Family history of problems with anesthesia: No Surgical History Surgical History History of hernia repair History of left knee replacement History of Problems with Anesthesia: No Social History Social History Housing: House Alcohol intake: current Patient Tobacco Use Status: Former Tobacco user Tobacco use type: Cigarette Years Smoked: quit 2019 e-Cigarette/Vaping Use: Never Used Current occupational status: retired Cognitive needs: Yes (cane) Hearing needs: No Vision needs: Yes (Pt wear glasses. ) Meds Allergies Allergy/AdvReac Type Severity Reaction Status Date / Time No Known Allergies Allergy Verified 12/22/21 11:15 [No Known Allergies*] Active Medications: Current Medications Acetaminophen (Acetaminophen 325 Mg Tablet) 650 mg PO Q6H PRN PRN Reason: Pain (Scale Score 1-3) Acetaminophen (Acetaminophen 325 Mg Tablet) 650 mg PO Q6H PRN PRN Reason: Pain, Mild (Pain Scale 1-3) Baclofen (Baclofen 10 Mg Tablet) 10 mg PO BID [facility] Last Admin: 12/23/21 08:30 Dose: 10 mg Docusate Sodium (Docusate Sodium 100 Mg Capsule) 100 mg PO DAILY PRN PRN Reason: Constipation Duloxetine HCl (Duloxetine Hcl 20 Mg Capsule.Dr) 20 mg PO BEDTIME [facility] Last Admin: 12/22/21 20:31 Dose: 20 mg Heparin Sodium (Porcine) (Heparin Sodium,Porcine 5,000 Unit/Ml Vial) 5,000 unit SUBCUT Q12H [facility] Last Admin: 12/23/21 11:57 Dose: Not Given Hydromorphone HCl (Hydromorphone Hcl 1 Mg/Ml Syringe) 0.5 mg IVPUSH Q4H PRN; Protocol PRN Reason: Pain, Severe (Pain Scale 7-10) Last Admin: 12/23/21 08:37 Dose: 0.5 mg Piperacillin Sod/Tazobactam (Sod 3.375 gm/ Sodium Chloride) 50 mls @ 100 mls/hr IV Q6H [facility] Last Infusion: 12/23/21 10:55 Dose: Infused Lactated Ringer's (Lr) 1,000 mls @ 100 mls/hr IVCONT .Q10H [facility] Last Admin: 12/23/21 06:32 Dose: 100 mls/hr Vancomycin HCl 1,000 mg/ (Sodium Chloride) 270 mls @ 270 mls/hr IV Q24H [facility] Non-Formulary Medication (Umeclidinium-Vilanterol [Anoro Ellipta]) 1 inhalation INHALE DAILY PRN PRN Reason: Shortness Of Breath Ondansetron HCl (Ondansetron Hcl 4 Mg/2 Ml Vial) 4 mg IVPUSH Q8H PRN PRN Reason: Nausea and Vomiting Pharmacy Consult (Consult Rx Vancomycin Dosing) 1 each MISCELLANE DAILY PRN PRN Reason: Consult order Pharmacy Consult (Consult Rx Perform Med Rec) 1 each MISCELLANE ONCE PRN PRN Reason: Consult order Pharmacy Consult (Consult Rx Vancomycin Dosing) 1 each MISCELLANE DAILY PRN PRN Reason: Consult order Sodium Chloride (0.9 % Sodium Chloride Flush 3 Ml Syringe) 3 ml IVFLUSH QSHIFT [facility] Last Admin: 12/23/21 08:30 Dose: Not Given Home Medications Medication Instructions Recorded Confirmed Last Taken Type umeclidinium 62.5 mcg-vilanterol 1 inh inhalation DAILY PRN 10/15/21 12/22/21 Unknown History 25 mcg/actuation powdr for Shortness Of Breath inhalation (Anoro Ellipta) acetaminophen 500 mg tablet 1,000 mg PO Q6H PRN Pain (Scale 10/30/21 12/22/21 12/22/21 History (Tylenol Extra Strength) Score 1-3) albuterol sulfate 90 mcg/actuation 2 puff inhalation Q6H PRN 11/28/21 12/22/21 Unknown History aerosol inhaler (ProAir HFA) Shortness Of Breath tocilizumab 80 mg/4 mL (20 mg/mL) 0 mg IV Q30D 11/28/21 12/22/21 12/02/21 History intravenous solution (Actemra) duloxetine 20 mg capsule,delayed 20 mg PO BEDTIME 12/19/21 12/22/21 12/21/21 History release prednisone 10 mg tablet See Taper PO DAILY 12/19/21 12/22/21 12/21/21 History Exam Exam Date and Time: December 23, 2021 1224 Height,Weight and Vital Signs: Height 5 ft 6 in Weight 72.575 kg Last Vital Signs Temp 98.3 F 12/23/21 06:31 Pulse 73 12/23/21 05:59 Resp 18 12/23/21 05:59 BP 107/71 12/23/21 05:59 Pulse Ox 98 12/23/21 05:59 O2 Del Method 12/23/21 05:59 O2 Flow Rate 3 12/23/21 05:59 Pertinent Lab Results Pertinent Lab Results: Laboratory Tests 12/22/21 12/22/21 12/22/21 11:41 11:41 11:41 WBC 14.4 H RBC 5.37 Hgb 16.3 Hct 48.4 MCV 90.1 MCH 30.4 MCHC 33.7 RDW 13.8 Plt Count 239 MPV 8.5 L Immature Gran % (Auto) 0.6 H Neut % (Auto) 83.3 H Lymph % (Auto) 10.7 L [place] % (Auto) 4.8 Eos % (Auto) 0.3 Baso % (Auto) 0.3 Lymph # (Auto) 1.5 [place] # (Auto) 0.7 Eos # (Auto) 0.0 Baso # (Auto) 0.0 Abs Immat Gran (auto) 0.09 H Absolute Neuts (auto) 12.0 H Absolute Nucleated RBC 0.000 Nucleated RBC % (auto) 0.0 Smear Tech's Comments ESR 1 Sodium 140 Potassium 4.0 Chloride 105 Carbon Dioxide 24 Anion Gap 15 BUN 19 H Creatinine 1.28 Estim Creat Clear Calc 44.3 Estimated GFR 55 Random Glucose 83 Lactic Acid Calcium 9.5 C-Reactive Protein 0.05 COVID-19 ([facility]) COVID-19 Exo 12/22/21 12/23/21 12/23/21 11:41 04:07 04:07 WBC 24.2 H RBC 4.81 Hgb 14.4 Hct 44.1 MCV 91.7 MCH 29.9 MCHC 32.7 RDW 14.0 Plt Count 179 D MPV 8.4 L Immature Gran % (Auto) 2.7 H Neut % (Auto) 88.7 H Lymph % (Auto) 2.6 L [place] % (Auto) 5.8 Eos % (Auto) 0.0 Baso % (Auto) 0.2 Lymph # (Auto) 0.6 L [place] # (Auto) 1.4 H Eos # (Auto) 0.0 Baso # (Auto) 0.1 Abs Immat Gran (auto) 0.66 H Absolute Neuts (auto) 21.4 H Absolute Nucleated RBC 0.000 Nucleated RBC % (auto) 0.0 Smear Tech's Comments VERIFIED ESR Sodium 138 Potassium 4.2 Chloride 107 Carbon Dioxide 22 Anion Gap 13 BUN 22 H Creatinine 1.51 H Estim Creat Clear Calc 37.5 Estimated GFR 45 Random Glucose 116 H D Lactic Acid 1.3 Calcium 8.6 D C-Reactive Protein COVID-19 ([facility]) COVID-19 Exo 12/23/21 08:48 WBC RBC Hgb Hct MCV MCH MCHC RDW Plt Count MPV Immature Gran % (Auto) Neut % (Auto) Lymph % (Auto) [place] % (Auto) Eos % (Auto) Baso % (Auto) Lymph # (Auto) [place] # (Auto) Eos # (Auto) Baso # (Auto) Abs Immat Gran (auto) Absolute Neuts (auto) Absolute Nucleated RBC Nucleated RBC % (auto) Smear Tech's Comments ESR Sodium Potassium Chloride Carbon Dioxide Anion Gap BUN Creatinine Estim Creat Clear Calc Estimated GFR Random Glucose Lactic Acid Calcium C-Reactive Protein COVID-19 ([facility]) Negative COVID-[place] See Note Airway Mallampati Class: II TM Dist: >3cm Neck ROM: Full Denture: Upper and Lower Loose/Missing/Broken Teeth: Yes Heart: [id number] Lungs: cta b/l Assessment and Plan Assessment Anesthesia Assessment: Anesthesia Plan Discussed and Chart Reviewed Final Anesthetic Review Family History of Problems with Anesthesia: No History of Problems with Anesthesia: No NPO: Yes ASA Class: III Final Preanesthetic Review: No Changes in Pt Med Stat, Meds/Allgs Chart Reviewed, Consent Obtained/Reviewed and Anes Risks/Benef Reviewed Patient Risk: Intermediate Procedure Risk: Intermediate Assessment/Block/Sedation in SS: Assess/Block/Sedation-SS Anesthetic Plan Anesthetic Plan: GA and Agree w/ Assess. and Plan Disposition: Standard PACU
--- NOTE | 2021-12-23 12:56 | PM.EVENT ---
Event Note Date of Service: 12/23/21 Event Note: explained to pt technique of debridement of the left leg ulcers I reviewed the risks including but not limited to bleeding, infections,pain, poor healing he understands and agrees to proceed was involved with discussion
--- NOTE | 2021-12-23 13:42 | W.PM.OPN ---
Operative Note Operative Note Date of Service: 12/23/21 Narrative: Preop diagnosis: Left leg ulcer with eschar Postop diagnose: Left leg ulcer with eschar, measuring about 11 cm x 7 cm, irregularly shaped Procedure: Excisional debridement, left leg ulcer with eschar, full-thickness of the skin and part of subcutaneous layer Surgeon: Qamar Cedeno MD practice assistant: TIMOTEO Arthur The patient is a 76-year-old male who has a chronic leg ulcers. [facility] He was sent to the ER yesterday by the [facility] because of his left leg ulcer with an eschar Examination read showed a thick eschar on the ulcer with surrounding cellulitis. I told him it would be best to proceed with excision debridement the OR. He understood the technique of the procedure as well as the risks, benefits, and alternatives Was brought to the operating room and placed supine under general anesthesia via laryngeal mask airway. The left leg and foot was prepped draped usual sterile fashion. A surgical time-out was done. The patient had been receiving scheduled antibiotics . Examination showed this large ulcer with eschar, on the lateral aspect of left leg towards the ankle. I proceeded to sharply excise this thick eschar using curved Landeros scissors. The eschar consisted of the full-thickness skin and part of subcutaneous layer. I lifted up all these eschar and sharply debrided this using this scissors. I then used the curette to further remove more nonviable tissue. This area excise about 11 x 7 cm. There was note of a smaller area towards the dorsum of the foot which is also debrided. This was about a 1.5 cm area Once it appeared that the base was viable, proceeded to irrigate. I applied wet to dry dressings on all the open areas, and over this with thick dry gauze and wrapped this with Kerlix as well as that Chris bandage. The procedure was then completed. The patient tolerated well. There were no complications noted. Blood loss about 20 cc The patient was extubated without difficulty and transferred to the recovery room with stable vital signs.
[2021-12-23] MEDS: HYDROmorphone HCl 0.5 MG/0.5 ML SYRINGE IVPUSH ×3 (14:09→14:19)
--- NOTE | 2021-12-23 14:54 | P.PNIM_ITS ---
Subjective Subjective Date of Service: 12/23/21 Interval History: leg pain,possible ckd Review of Systems Patient says that he has leg wound on and off since 1998, his wound he tends to heal with wound care but this time he has leg wound since and we which is not healing Physical Exam Vital Signs: Vital Signs: Last Vital Signs Temp 99.1 F 12/23/21 13:55 Pulse 109 H 12/23/21 14:40 Resp 14 12/23/21 14:40 BP 109/69 12/23/21 14:40 Pulse Ox 91 L 12/23/21 14:40 O2 Del Method 12/23/21 14:40 O2 Flow Rate 5 12/23/21 14:40 BMI result Body Mass Index 25.8 Appearance: Alert.? Oriented X3.? not in distress.? cvs: [id number], [id number] , no murmur res: clear to auscultation ,no rhonchii or wheezing abd: no rebound or guarding ,nt, bs present. ext pulses present , no cyanosis ,left leg ulcers -seems nonhealing-on the lateral aspect of left lower extremity, has erythema extending to just below the left knee, warmth, significant tenderness on palpation? neuro: axo3 , nonfocal. Objective Data Active Medications Acetaminophen (Acetaminophen 325 Mg Tablet) 650 mg PO Q6H PRN PRN Reason: Pain (Scale Score 1-3) Acetaminophen (Acetaminophen 325 Mg Tablet) 650 mg PO Q6H PRN PRN Reason: Pain, Mild (Pain Scale 1-3) Baclofen (Baclofen 10 Mg Tablet) 10 mg PO BID [facility] Last Admin: 12/23/21 08:30 Dose: 10 mg Documented By: JADA Docusate Sodium (Docusate Sodium 100 Mg Capsule) 100 mg PO DAILY PRN PRN Reason: Constipation Duloxetine HCl (Duloxetine Hcl 20 Mg Capsule.Dr) 20 mg PO BEDTIME [facility] Last Admin: 12/22/21 20:31 Dose: 20 mg Documented By: BRITTANICL Fentanyl (Fentanyl Citrate/Pf 100 Mcg/2 Ml Vial) 50 mcg IVPUSH Q5M PRN; Protocol PRN Reason: Pain, Moderate (Pain Scale 4-6 Heparin Sodium (Porcine) (Heparin Sodium,Porcine 5,000 Unit/Ml Vial) 5,000 unit SUBCUT Q12H [facility] Last Admin: 12/23/21 11:57 Dose: Not Given Documented By: JN Non-Admin Reason: See Note Hydromorphone HCl (Hydromorphone Hcl 0.5 Mg/0.5 Ml Syringe) 0.5 mg IVPUSH Q5M PRN; Protocol PRN Reason: Pain, Severe (Pain Scale 7-10) Last Admin: 12/23/21 14:19 Dose: 0.5 mg Documented By: PAULO Hydromorphone HCl (Hydromorphone Hcl 1 Mg/Ml Syringe) 1 mg IVPUSH Q4H PRN; Protocol PRN Reason: Pain, Severe (Pain Scale 7-10) Piperacillin Sod/Tazobactam (Sod 3.375 gm/ Sodium Chloride) 50 mls @ 100 mls/hr IV Q6H [facility] Last Infusion: 12/23/21 10:55 Dose: 0 mls/hr Documented By: BRITTRAMSK Lactated Ringer's (Lr) 1,000 mls @ 100 mls/hr IVCONT .Q10H [facility] Last Admin: 12/23/21 06:32 Dose: 100 mls/hr Documented By: BRITTANICL Vancomycin HCl 1,000 mg/ (Sodium Chloride) 270 mls @ 270 mls/hr IV Q24H [facility] Non-Formulary Medication (Umeclidinium-Vilanterol [Anoro Ellipta]) 1 inhalation INHALE DAILY PRN PRN Reason: Shortness Of Breath Ondansetron HCl (Ondansetron Hcl 4 Mg/2 Ml Vial) 4 mg IVPUSH Q8H PRN PRN Reason: Nausea and Vomiting Ondansetron HCl (Ondansetron Hcl 4 Mg/2 Ml Vial) 4 mg IVPUSH ONCE PRN PRN Reason: Nausea and Vomiting Oxycodone HCl (Oxycodone Hcl Immed Release 5 Mg Tablet) 10 mg PO ONCE PRN PRN Reason: Pain, Mild (Pain Scale 1-3) Oxycodone HCl (Oxycodone Hcl Immed Release 5 Mg Tablet) 5 mg PO ONCE PRN PRN Reason: Pain, Severe (Pain Scale 7-10) Oxycodone HCl (Oxycodone Hcl Immed Release 5 Mg Tablet) 10 mg PO Q4H PRN PRN Reason: Pain, Moderate (Pain Scale 4-6 Pharmacy Consult (Consult Rx Vancomycin Dosing) 1 each MISCELLANE DAILY PRN PRN Reason: Consult order Pharmacy Consult (Consult Rx Perform Med Rec) 1 each MISCELLANE ONCE PRN PRN Reason: Consult order Pharmacy Consult (Consult Rx Vancomycin Dosing) 1 each MISCELLANE DAILY PRN PRN Reason: Consult order Pharmacy Consult (Consult Rx Vancomycin Dosing) 1 each MISCELLANE DAILY PRN PRN Reason: Consult order Sodium Chloride (0.9 % Sodium Chloride Flush 3 Ml Syringe) 3 ml IVFLUSH QSHIFT [facility] Last Admin: 12/23/21 08:30 Dose: Not Given Documented By: JADA Non-Admin Reason: IV Running Labs CBC & Chem 7: 12/23/21 04:07 12/23/21 04:07 Labs: Laboratory Results - last 24 hr 12/23/21 12/23/21 12/23/21 04:07 04:07 08:48 MCV 91.7 MCH 29.9 MCHC 32.7 RDW 14.0 Plt Count 179 D MPV 8.4 L Immature Gran % (Auto) 2.7 H Neut % (Auto) 88.7 H Lymph % (Auto) 2.6 L [place] % (Auto) 5.8 Eos % (Auto) 0.0 Baso % (Auto) 0.2 Lymph # (Auto) 0.6 L [place] # (Auto) 1.4 H Eos # (Auto) 0.0 Baso # (Auto) 0.1 Abs Immat Gran (auto) 0.66 H Absolute Neuts (auto) 21.4 H Absolute Nucleated RBC 0.000 Nucleated RBC % (auto) 0.0 Smear Tech's Comments VERIFIED Anion Gap 13 Estim Creat Clear Calc 37.5 Estimated GFR 45 Random Glucose 116 H D Calcium 8.6 D COVID-19 ([facility]) Negative COVID-19 Clin Com See Note Microbiology Microbiology Results: Microbiology 12/22/21 11:41 Blood Culture - Preliminary Blood - Venous No growth after 24 hours. 12/22/21 11:41 Blood Culture - Preliminary Blood - Venous No growth after 24 hours. Assessment and Plan (1) Non-healing wound of left lower extremity: Status: Acute (2) Chronic ulcer of leg: Status: Acute (3) Cellulitis: Status: Acute Plan 76-year-old male with past medical history of chronic leg wound, Sjogren's disease, 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 presents to the hospital of complaints of worsening pain on his left lower leg nonhealing wound of left lower extremity - patient was increased erythema, pain, wound drainage of a chronic lower extremity ulcer - patient and at bedside reports the patient is being investigated for possible vasculitis but has not been confirm have vasculitis - no history of diabetes - afebrile but has leukocytosis on IV antibiotics-vanco,zosyn -vanco trough. - follow blood cultures - normal ESR and CRP therefore osteomyelitis less likely - surgery consulted for surgical debridement cellulitis - erythema, warmth, tenderness, as well as edema up to just below the left knee - will treat with IV antibiotics, cover for staph given the drainage and skin breakdown - follow cultures - infectious disease consulted rheumatoid arthritis - continue home medication as well as prednisone COPD - not in exacerbation - continue home inhalers joshua on ckd: his cr was 1.2 earlier this year gentle hydration nephrology eval DVT prophylaxis:? Heparin subQ inpatient needs: left foot ulcer /cellulitis- IV antibiotics Quality Stroke Does the patient have a stroke diagnosis?: No VTE Prior VTE?: No VTE Risk Level:: Medical - moderate - high VTE Device Contraindication: Treatment Not Indicated VTE Drug Contraindication: N/A - Med Ordered
[2021-12-23] MEDS: Albuterol/Iprat 2.5/0.5MG 3 ML AMPUL.NEB 1.5 ML INHALE (15:41)
--- NOTE | 2021-12-23 16:27 | PM.EVENT ---
Event Note Date of Service: 12/23/21 Event Note: underwent debridement of left leg ulcer with eschar seems to have good pain control dressings dry pain mgt monitor creatinine - pt on Vanco in room
[2021-12-23] MEDS: vancomycin HCL 1,000 MG in 0.9 % Sodium Chloride 250 ML 270 MG IV (19:26)
[2021-12-23] MEDS: oxyCODONE HCl Immed Release 5 MG TABLET 10 MG PO (19:37)
[2021-12-23] MEDS: DULoxetine HCl 20 MG CAPSULE.DR PO (19:37)
[2021-12-23] MEDS: 0.9 % Sodium Chloride Flush 3 ML SYRINGE IVFLUSH (19:37)
[2021-12-24] VITALS (8 sets, daily range): BP systolic 108–123; BP diastolic 62–91; PULSE 75–83; RESP 16–20; TEMP 36.2–37.3; O2SAT 90–95
[2021-12-24] MEDS: Piperacillin Sodium/Tazobactam 3.375 GM in 0.9 % Sodium Chloride 50 ML IV ×4 (01:56→19:23)
[2021-12-24] MEDS: Lactated Ringers 1,000 ML 100 ML IVCONT ×3 (03:03→21:26)
[2021-12-24] MEDS: oxyCODONE HCl Immed Release 5 MG TABLET PO (05:57)
[2021-12-24 06:26] LABS: Estimated Glomerular Filt Rate 51
[2021-12-24] MEDS: Baclofen 10 MG TABLET PO ×2 (07:30→19:55)
[2021-12-24] MEDS: HYDROmorphone HCl 1 MG/ML SYRINGE IVPUSH ×3 (07:36→21:38)
--- NOTE | 2021-12-24 08:45 | HE.PHANOTE ---
Vancomycin Dosing Adendu Patient has random @ 1700. Drawing to evaluate for safety. Previously renal function was declining. Renal function has improved from yesterday, therefore, level might be subtherapeutic as patient is not at steady state.
--- NOTE | 2021-12-24 10:00 | HO.POSTANES ---
Post Anesthesia Evaluation Post Anesthesia Evaluation Vital Signs: Vital Signs Temp Pulse Resp BP Pulse Ox O2 Del Method O2 Flow Rate 12/24/21 08:00 98.4 F 76 18 117/71 92 Room Air 12/24/21 04:00 97.1 F 78 17 108/62 94 Nasal Cannula 3 12/23/21 23:59 97.8 F 75 18 107/65 97 Nasal Cannula 3 Anesthesia: General Mental Status: Awake Pain Control: Satisfactory (difficult to control pain) Nausea/Vomiting: None Hydration: Adequate Anesthesia-Related Issues: No Anes. Related Issues
--- NOTE | 2021-12-24 11:36 | P.PNIM_ITS ---
Subjective Subjective Date of Service: 12/24/21 Interval History: leg wound Review of Systems Denies any new complaint of chest pain or shortness of breath or abdominal pain or fever or chills or nausea or vomiting Denies any cough Denies any weakness or numbness. still has leg pain Physical Exam Vital Signs: Vital Signs: Last Vital Signs Temp 98.4 F 12/24/21 08:00 Pulse 76 12/24/21 08:00 Resp 18 12/24/21 08:00 BP 117/71 12/24/21 08:00 Pulse Ox 92 12/24/21 08:00 O2 Del Method 12/24/21 08:00 O2 Flow Rate 3 12/24/21 04:00 BMI result Body Mass Index 25.8 Appearance: Alert.? Oriented X3.? not in distress.? cvs: rrr, [id number] , no murmur res: clear to auscultation ,no rhonchii or wheezing abd: no rebound or guarding ,nt, bs present. ext pulses present , no cyanosis ,left leg ulcers -wrapped ( less pain than yesterday) neuro: axo3 , nonfocal.? Objective Data Active Medications Acetaminophen (Acetaminophen 325 Mg Tablet) 650 mg PO Q6H PRN PRN Reason: Pain, Mild (Pain Scale 1-3) Albuterol Sulfate (Albuterol Sulfate 90 Mcg 8 Gm Inhaler) 1 puff INHALE RQ4H PRN PRN Reason: asthma Baclofen (Baclofen 10 Mg Tablet) 10 mg PO BID [facility] Last Admin: 12/24/21 07:30 Dose: 10 mg Documented By: UZIEL Docusate Sodium (Docusate Sodium 100 Mg Capsule) 100 mg PO DAILY PRN PRN Reason: Constipation Duloxetine HCl (Duloxetine Hcl 20 Mg Capsule.Dr) 20 mg PO BEDTIME [facility] Last Admin: 12/23/21 19:37 Dose: 20 mg Documented By: KEVON Fentanyl (Fentanyl Citrate/Pf 100 Mcg/2 Ml Vial) 50 mcg IVPUSH Q5M PRN; Protocol PRN Reason: Pain, Moderate (Pain Scale 4-6 Heparin Sodium (Porcine) (Heparin Sodium,Porcine 5,000 Unit/Ml Vial) 5,000 unit SUBCUT Q12H [facility] Last Admin: 12/23/21 19:37 Dose: 5,000 unit Documented By: KEVON Hydromorphone HCl (Hydromorphone Hcl 0.5 Mg/0.5 Ml Syringe) 0.5 mg IVPUSH Q5M PRN; Protocol PRN Reason: Pain, Severe (Pain Scale 7-10) Last Admin: 12/23/21 14:19 Dose: 0.5 mg Documented By: PAULO Hydromorphone HCl (Hydromorphone Hcl 1 Mg/Ml Syringe) 1 mg IVPUSH Q4H PRN; Protocol PRN Reason: Pain, Severe (Pain Scale 7-10) Last Admin: 12/24/21 07:36 Dose: 1 mg Documented By: UZIEL Piperacillin Sod/Tazobactam (Sod 3.375 gm/ Sodium Chloride) 50 mls @ 100 mls/hr IV Q6H [facility] Last Infusion: 12/24/21 08:39 Dose: 0 mls/hr Documented By: UZIEL Lactated Ringer's (Lr) 1,000 mls @ 100 mls/hr IVCONT .Q10H [facility] Last Admin: 12/24/21 03:03 Dose: 100 mls/hr Documented By: KEVON Vancomycin HCl 1,000 mg/ (Sodium Chloride) 270 mls @ 270 mls/hr IV Q24H [facility] Last Infusion: 12/23/21 20:35 Dose: 0 mls/hr Documented By: KEVON Non-Formulary Medication (Umeclidinium-Vilanterol [Anoro Ellipta]) 1 inhalation INHALE DAILY PRN PRN Reason: Shortness Of Breath Ondansetron HCl (Ondansetron Hcl 4 Mg/2 Ml Vial) 4 mg IVPUSH Q8H PRN PRN Reason: Nausea and Vomiting Ondansetron HCl (Ondansetron Hcl 4 Mg/2 Ml Vial) 4 mg IVPUSH ONCE PRN PRN Reason: Nausea and Vomiting Oxycodone HCl (Oxycodone Hcl Immed Release 5 Mg Tablet) 10 mg PO ONCE PRN PRN Reason: Pain, Mild (Pain Scale 1-3) Oxycodone HCl (Oxycodone Hcl Immed Release 5 Mg Tablet) 10 mg PO Q4H PRN PRN Reason: Pain, Moderate (Pain Scale 4-6 Last Admin: 12/23/21 19:37 Dose: 10 mg Documented By: KEVON Pharmacy Consult (Consult Rx Vancomycin Dosing) 1 each MISCELLANE DAILY PRN PRN Reason: Consult order Pharmacy Consult (Consult Rx Perform Med Rec) 1 each MISCELLANE ONCE PRN PRN Reason: Consult order Pharmacy Consult (Consult Rx Vancomycin Dosing) 1 each MISCELLANE DAILY PRN PRN Reason: Consult order Sodium Chloride (0.9 % Sodium Chloride Flush 3 Ml Syringe) 3 ml IVFLUSH QSHIFT [facility] Last Admin: 12/24/21 07:33 Dose: Not Given Documented By: UZIEL Non-Admin Reason: IV Running Labs CBC & Chem 7: 12/23/21 04:07 12/24/21 05:46 Labs: Laboratory Results - last 24 hr 12/24/21 05:46 Estim Creat Clear Calc 42.0 Estimated GFR 51 Microbiology Microbiology Results: Microbiology 12/22/21 11:41 Blood Culture - Preliminary Blood - Venous No growth after 24 hours. 12/22/21 11:41 Blood Culture - Preliminary Blood - Venous No growth after 24 hours. Assessment and Plan (1) Non-healing wound of left lower extremity: Status: Acute (2) Cellulitis: Status: Acute Plan 76-year-old male with past medical history of chronic leg wound, Sjogren's disease, 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 presents to the hospital of complaints of worsening pain on his left lower leg ?nonhealing wound of left lower extremity - patient was increased erythema, pain, wound drainage of a chronic lower extremity ulcer - patient and at bedside reports the patient is being investigated for possible vasculitis but has not been confirm have vasculitis - no history of diabetes - afebrile but has leukocytosis on IV antibiotics-vanco,zosyn -vanco trough. - follow blood cultures - normal ESR and CRP therefore osteomyelitis less likely - surgery consulted -s/psurgical debridement day 2. ?cellulitis - erythema, warmth, tenderness, as well as edema up to just below the left knee - will treat with IV antibiotics, cover for staph given the drainage and skin breakdown follow vanco trough - follow cultures - infectious disease consulted rheumatoid arthritis - continue home medication as well as prednisone ?COPD - not in exacerbation - continue home inhalers joshua on ckd:cr improving his cr was 1.2 earlier this year gentle hydration nephrology -added workup-spep,immunlogical- Proteus 3, myeloperoxidase, complement C3 and C4. DVT prophylaxis:? Heparin subQ inpatient needs: left leg ulcer /cellulitis- IV antibiotics Quality Stroke Does the patient have a stroke diagnosis?: No VTE Prior VTE?: No VTE Risk Level:: Medical - moderate - high VTE Device Contraindication: Treatment Not Indicated VTE Drug Contraindication: N/A - Med Ordered
[2021-12-24] MEDS: Heparin Sodium,Porcine 5,000 UNIT/ML VIAL 5000 UNIT SUBCUT ×2 (11:50→21:31)
[2021-12-24] MEDS: oxyCODONE HCl Immed Release 5 MG TABLET 10 MG PO ×2 (11:50→19:26)
--- NOTE | 2021-12-24 12:05 | CONS_ITS ---
DATE OF SERVICE: 12/24/2021 REASON FOR CONSULTATION: I was called to see this patient to assist in management of acute kidney injury. HISTORY OF PRESENT ILLNESS: To summarize, the patient is a 76-year-old man with history of rheumatoid arthritis, Sjogren syndrome and question of vasculitis. He has had history of an episode of acute kidney injury in the past and serum creatinine has been fluctuating. According to his , they were in [place] and they were told about the fluctuating creatinine levels. Although, he does not remember the baseline. Looking at the clinical records, it appears that the baseline creatinine is around 1.2 to 1.3 mg/dL. He has had a chronic leg ulcer and is being managed in the [facility]ound [facility] and he has been admitted for further management of the wound. He did receive vancomycin 1 g and there has been a bump in serum creatinine to 1.5. Although he has not had any difficulty urination in the past. He did notice some blood in the urine today. Also of note, the patient has been consuming ibuprofen for last several years for the rheumatoid arthritis. He was initially treated with Enbrel. He did not receive any gold therapy. ONGOING MEDICAL PROBLEMS: Include a history of chronic kidney disease. Baseline creatinine around 1.2 to 1.3 mg/dL. COPD. Rheumatoid arthritis. Sjogren syndrome. Question of vasculitis. Hypertension. Chronic leg ulcer. FAMILY HISTORY: Noncontributory. SURGICAL HISTORY: History of hernia repair and left knee replacement. SOCIAL HISTORY: He consumes alcohol at home. He also used to smoke in the past. He does not smoke anymore. ALLERGIES: NO KNOWN DRUG ALLERGIES. MEDICATIONS: At time of admission included Tylenol, albuterol, tocilizumab (Actemra), duloxetine, and prednisone. REVIEW OF SYSTEMS: Positive for leg pain. No headache, nausea, or vomiting. No abdominal pain or constipation. No fever. No rash. No dysuria. No polyuria or polydipsia. He did have hematuria, which was painless. PHYSICAL EXAMINATION: GENERAL: Today, the patient appears comfortable, not in distress. NECK: Supple. No JVD. Mucosa is dry. LUNGS: Air entry equal. No rales. HEART: S1, S2 heard. No gallop. No rub. ABDOMEN: Distended, soft, nontender. Bowel sounds heard. NEUROLOGY: Alert and awake. No asterixis. EXTREMITIES: The left lower leg is wrapped. There are deformities related to rheumatoid arthritis. No dependent edema. No rash. No clubbing. VITAL SIGNS: Blood pressure was 117/71, pulse 76, temperature 98.4. LABORATORY DATA: WBC 24.2, hemoglobin 14.4, on admission hemoglobin was 16.3, platelets 179. Serum electrolytes normal. BUN 22, creatinine 1.51, calcium 8.6. Urine studies not available. PROBLEMS: 1. Acute kidney injury, superimposed on chronic kidney disease. 2. Chronic leg ulcers. 3. Rheumatoid arthritis. 4. Acute kidney injury mostly related to volume depletion. However, he did receive vancomycin. Therefore, vanco induced brain injury is a possibility. Obstructive uropathy should be considered as well. He does have underlying chronic kidney disease. This has been related to chronic use of NSAIDs. However, with rheumatoid arthritis, he could have underlying pulmonary disease as well. RECOMMENDATION: Check urine for urinalysis, urine sodium, creatinine and protein. Renal ultrasonogram or CAT scan to evaluate the kidneys and ureters in the bladder and may need further workup for the hematuria. However, nephrotoxic agents, I will hold vancomycin until the creatinine continues to increase. Check vanco levels. For now, I agree with IV hydration with current IV fluids. Keep intake more than the output. Further workup will be based on the outcome of the baseline investigations. This includes serological workup as well. Terrance Scruggs MD BPA/MODL / [id number]
[2021-12-24 13:40] LABS: Appearance Urine CLEAR; Color Urine YELLOW; Glucose Urine UA NEG (NEG); Leukocyte Esterase Urine NEG (NEG); Nitrite Urine NEG (NEG); Specific Gravity - Urine 1.025 (1.005-1.025); Urine Blood NEG (NEG); Urine Ketones NEG (NEG); Urine Protein NEG (NEG-TRACE)
--- NOTE | 2021-12-24 13:43 | PM.PNGS ---
Subjective Subjective Date of Service: 12/24/21 Interval history: Underwent excisional debridement of the left leg ulcer yesterday Says he was able to sleep well last night Area of the ulcer very sensitive Good urine output Physical Exam Vital Signs: Vital Signs: Last Vital Signs Temp 97.9 F 12/24/21 11:50 Pulse 81 12/24/21 11:50 Resp 16 12/24/21 11:50 BP 123/80 12/24/21 11:50 Pulse Ox 92 12/24/21 11:50 O2 Del Method 12/24/21 11:50 O2 Flow Rate 3 12/24/21 04:00 BMI result Body Mass Index 25.8 Const: Other: In bed, appears comfortable or although has periods of pain from his left leg Resp: Effort & Inspection: normal respiratory effort Cardio: Rate: regular rate GI: Palpation (GI): Soft to palpation and nontender Extrem: Other: I removed his dressings - debrided area on the left leg appears to be clean, no pus, eschar Objective Data Active Medications Acetaminophen (Acetaminophen 325 Mg Tablet) 650 mg PO Q6H PRN PRN Reason: Pain, Mild (Pain Scale 1-3) Albuterol Sulfate (Albuterol Sulfate 90 Mcg 8 Gm Inhaler) 1 puff INHALE RQ4H PRN PRN Reason: asthma Baclofen (Baclofen 10 Mg Tablet) 10 mg PO BID [facility] Last Admin: 12/24/21 07:30 Dose: 10 mg Documented By: UZIEL Docusate Sodium (Docusate Sodium 100 Mg Capsule) 100 mg PO DAILY PRN PRN Reason: Constipation Duloxetine HCl (Duloxetine Hcl 20 Mg Capsule.) 20 mg PO BEDTIME [facility] Last Admin: 12/23/21 19:37 Dose: 20 mg Documented By: CASTILM Fentanyl (Fentanyl Citrate/Pf 100 Mcg/2 Ml Vial) 50 mcg IVPUSH Q5M PRN; Protocol PRN Reason: Pain, Moderate (Pain Scale 4-6 Heparin Sodium (Porcine) (Heparin Sodium,Porcine 5,000 Unit/Ml Vial) 5,000 unit SUBCUT Q12H [facility] Last Admin: 12/24/21 11:50 Dose: 5,000 unit Documented By: UZIEL Hydromorphone HCl (Hydromorphone Hcl 0.5 Mg/0.5 Ml Syringe) 0.5 mg IVPUSH Q5M PRN; Protocol PRN Reason: Pain, Severe (Pain Scale 7-10) Last Admin: 12/23/21 14:19 Dose: 0.5 mg Documented By: PAULO Hydromorphone HCl (Hydromorphone Hcl 1 Mg/Ml Syringe) 1 mg IVPUSH Q4H PRN; Protocol PRN Reason: Pain, Severe (Pain Scale 7-10) Last Admin: 12/24/21 12:15 Dose: 1 mg Documented By: UZIEL Piperacillin Sod/Tazobactam (Sod 3.375 gm/ Sodium Chloride) 50 mls @ 100 mls/hr IV Q6H [facility] Last Infusion: 12/24/21 08:39 Dose: 0 mls/hr Documented By: UZIEL Lactated Ringer's (Lr) 1,000 mls @ 100 mls/hr IVCONT .Q10H [facility] Last Infusion: 12/24/21 13:37 Dose: 0 mls/hr Documented By: UZIEL Vancomycin HCl 1,000 mg/ (Sodium Chloride) 270 mls @ 270 mls/hr IV Q24H [facility] Last Infusion: 12/23/21 20:35 Dose: 0 mls/hr Documented By: CASTILAleksandr Non-Formulary Medication (Umeclidinium-Vilanterol [Anoro Ellipta]) 1 inhalation INHALE DAILY PRN PRN Reason: Shortness Of Breath Ondansetron HCl (Ondansetron Hcl 4 Mg/2 Ml Vial) 4 mg IVPUSH Q8H PRN PRN Reason: Nausea and Vomiting Ondansetron HCl (Ondansetron Hcl 4 Mg/2 Ml Vial) 4 mg IVPUSH ONCE PRN PRN Reason: Nausea and Vomiting Oxycodone HCl (Oxycodone Hcl Immed Release 5 Mg Tablet) 10 mg PO ONCE PRN PRN Reason: Pain, Mild (Pain Scale 1-3) Oxycodone HCl (Oxycodone Hcl Immed Release 5 Mg Tablet) 10 mg PO Q4H PRN PRN Reason: Pain, Moderate (Pain Scale 4-6 Last Admin: 12/24/21 11:50 Dose: 10 mg Documented By: UZIEL Pharmacy Consult (Consult Rx Vancomycin Dosing) 1 each MISCELLANE DAILY PRN PRN Reason: Consult order Pharmacy Consult (Consult Rx Perform Med Rec) 1 each MISCELLANE ONCE PRN PRN Reason: Consult order Pharmacy Consult (Consult Rx Vancomycin Dosing) 1 each MISCELLANE DAILY PRN PRN Reason: Consult order Sodium Chloride (0.9 % Sodium Chloride Flush 3 Ml Syringe) 3 ml IVFLUSH QSHIFT [facility] Last Admin: 12/24/21 07:33 Dose: Not Given Documented By: UZIEL Non-Admin Reason: IV Running Labs CBC & Chem 7: 12/23/21 04:07 12/24/21 05:46 Labs: Laboratory Results - last 24 hr 12/24/21 12/24/21 05:46 13:20 Estim Creat Clear Calc 42.0 Estimated GFR 51 Urine Color YELLOW Urine Appearance CLEAR Urine pH 6.0 Ur Specific [place] 1.025 Urine Protein NEG Urine Glucose (UA) NEG Urine Ketones NEG Urine Blood NEG Urine Nitrite NEG Ur Leukocyte Esterase NEG Microbiology Microbiology Results: Microbiology 12/22/21 11:41 Blood Culture - Preliminary Blood - Venous No growth after 24 hours. 12/22/21 11:41 Blood Culture - Preliminary Blood - Venous No growth after 24 hours. Procedures Date of Service Date of Service: 12/24/21 Progress Note: A&P Assessment and plan (1) Chronic ulcer of leg: Status: Acute Assessment and Plan: I changes dressings and applied wet to dry for now He remains very hyperaesthetic on the left leg Pain management Creatinine better today Wound care Will also consult the Wound Clinic for management of this chronic colon Time Spent With Patient Time: Total time spent is greater than 50% in coordination of care (as documented) at patient's floor/unit and/or counseling patient: Quality Stroke Does the patient have a stroke diagnosis?: No VTE Prior VTE?: No VTE Risk Level:: Medical - moderate - high VTE Device Contraindication: Treatment Not Indicated VTE Drug Contraindication: N/A - Med Ordered
[2021-12-24 13:55] LABS: RBC Urine 0 /HPF (0); Uric Acid Crystals Urine 1+ /LPF; WBC Urine 0 /HPF (0-4)
--- NOTE | 2021-12-24 14:05 | W.PM.IDCN ---
History of Present Illness Data of Consult Service Date: 12/24/21 Requesting physician: Hernan Hastings Primary Care Provider: Kia Stroud MD HPI Reason for consult: chronic leg wound,left I tried to see patient yesterday but he was in surgery with Dr Cedeno. He presents with worsening redness and drainage lateral left leg for about a week. He has no fever or chills. He has had chronic left leg ulcers and seen Dr Vela in Wound Clinic. He was diagnosed in 1998 with chronic venous stasis ulcers he says He has seen Vascular. He has rhhad rheumatoid arthritis and was thought to have ulcer due to it or pyoderma gangrenosum Review of Systems Review of Systems: Yes all other systems are reviewed and are negative PMFSH Past Medical History Medical History Chronic ulcer of leg CKD (chronic kidney disease) stage 3, GFR 30-59 ml/min COPD (chronic obstructive pulmonary disease) Elevated serum creatinine HTN (hypertension) Rheumatoid arthritis Sjogren's disease Vasculitis Family History Family History Other No family history of coronary artery disease Family history: reviewed and not pertinent Surgical History Surgical History History of hernia repair History of left knee replacement Social History Social History Household Members: Spouse Housing: House Do you presently have visiting nurse or other home services: No Alcohol intake: current Alcohol intake frequency: former alcohol drinker Patient Tobacco Use Status: Former Tobacco user Tobacco use type: Cigarette Years Smoked: quit 2018 e-Cigarette/Vaping Use: Never Used Advance Directives Date on File: 12/23/21 Current occupational status: retired Cognitive needs: Yes (cane) Hearing needs: No Vision needs: Yes (Pt wear glasses. ) Meds Allergies Allergy/AdvReac Type Severity Reaction Status Date / Time No Known Allergies Allergy Verified 12/22/21 11:15 [No Known Allergies*] Active Medications: Current Medications Acetaminophen (Acetaminophen 325 Mg Tablet) 650 mg PO Q6H PRN PRN Reason: Pain, Mild (Pain Scale 1-3) Albuterol Sulfate (Albuterol Sulfate 90 Mcg 8 Gm Inhaler) 1 puff INHALE RQ4H PRN PRN Reason: asthma Baclofen (Baclofen 10 Mg Tablet) 10 mg PO BID [facility] Last Admin: 12/24/21 07:30 Dose: 10 mg Docusate Sodium (Docusate Sodium 100 Mg Capsule) 100 mg PO DAILY PRN PRN Reason: Constipation Duloxetine HCl (Duloxetine Hcl 20 Mg Capsule.Dr) 20 mg PO BEDTIME [facility] Last Admin: 12/23/21 19:37 Dose: 20 mg Fentanyl (Fentanyl Citrate/Pf 100 Mcg/2 Ml Vial) 50 mcg IVPUSH Q5M PRN; Protocol PRN Reason: Pain, Moderate (Pain Scale 4-6 Heparin Sodium (Porcine) (Heparin Sodium,Porcine 5,000 Unit/Ml Vial) 5,000 unit SUBCUT Q12H [facility] Last Admin: 12/24/21 11:50 Dose: 5,000 unit Hydromorphone HCl (Hydromorphone Hcl 0.5 Mg/0.5 Ml Syringe) 0.5 mg IVPUSH Q5M PRN; Protocol PRN Reason: Pain, Severe (Pain Scale 7-10) Last Admin: 12/23/21 14:19 Dose: 0.5 mg Hydromorphone HCl (Hydromorphone Hcl 1 Mg/Ml Syringe) 1 mg IVPUSH Q4H PRN; Protocol PRN Reason: Pain, Severe (Pain Scale 7-10) Last Admin: 12/24/21 12:15 Dose: 1 mg Piperacillin Sod/Tazobactam (Sod 3.375 gm/ Sodium Chloride) 50 mls @ 100 mls/hr IV Q6H [facility] Last Admin: 12/24/21 14:02 Dose: 100 mls/hr Lactated Ringer's (Lr) 1,000 mls @ 100 mls/hr IVCONT .Q10H [facility] Last Admin: 12/24/21 14:03 Dose: 100 mls/hr Vancomycin HCl 1,000 mg/ (Sodium Chloride) 270 mls @ 270 mls/hr IV Q24H [facility] Last Infusion: 12/23/21 20:35 Dose: Infused Non-Formulary Medication (Umeclidinium-Vilanterol [Anoro Ellipta]) 1 inhalation INHALE DAILY PRN PRN Reason: Shortness Of Breath Ondansetron HCl (Ondansetron Hcl 4 Mg/2 Ml Vial) 4 mg IVPUSH Q8H PRN PRN Reason: Nausea and Vomiting Ondansetron HCl (Ondansetron Hcl 4 Mg/2 Ml Vial) 4 mg IVPUSH ONCE PRN PRN Reason: Nausea and Vomiting Oxycodone HCl (Oxycodone Hcl Immed Release 5 Mg Tablet) 10 mg PO ONCE PRN PRN Reason: Pain, Mild (Pain Scale 1-3) Oxycodone HCl (Oxycodone Hcl Immed Release 5 Mg Tablet) 10 mg PO Q4H PRN PRN Reason: Pain, Moderate (Pain Scale 4-6 Last Admin: 12/24/21 11:50 Dose: 10 mg Pharmacy Consult (Consult Rx Vancomycin Dosing) 1 each MISCELLANE DAILY PRN PRN Reason: Consult order Pharmacy Consult (Consult Rx Perform Med Rec) 1 each MISCELLANE ONCE PRN PRN Reason: Consult order Pharmacy Consult (Consult Rx Vancomycin Dosing) 1 each MISCELLANE DAILY PRN PRN Reason: Consult order Sodium Chloride (0.9 % Sodium Chloride Flush 3 Ml Syringe) 3 ml IVFLUSH [facility] Last Admin: 12/24/21 14:03 Dose: Not Given Home Medications Medication Instructions Recorded Confirmed Last Taken Type umeclidinium 62.5 mcg-vilanterol 1 inh inhalation DAILY PRN 10/15/21 12/22/21 Unknown History 25 mcg/actuation powdr for Shortness Of Breath inhalation (Anoro Ellipta) acetaminophen 500 mg tablet 1,000 mg PO Q6H PRN Pain (Scale 10/30/21 12/22/21 12/22/21 History (Tylenol Extra Strength) Score 1-3) albuterol sulfate 90 mcg/actuation 2 puff inhalation Q6H PRN 11/28/21 12/22/21 Unknown History aerosol inhaler (ProAir HFA) Shortness Of Breath tocilizumab 80 mg/4 mL (20 mg/mL) 0 mg IV Q30D 11/28/21 12/22/21 12/02/21 History intravenous solution (Actemra) duloxetine 20 mg capsule,delayed 20 mg PO BEDTIME 12/19/21 12/22/21 12/21/21 History release prednisone 10 mg tablet See Taper PO DAILY 12/19/21 12/22/21 12/21/21 History Physical Exam Vital Signs: Vital Signs: Last Vital Signs Temp 97.9 F 12/24/21 11:50 Pulse 81 12/24/21 11:50 Resp 16 12/24/21 11:50 BP 123/80 12/24/21 11:50 Pulse Ox 92 12/24/21 13:35 O2 Del Method 12/24/21 13:35 O2 Flow Rate 3 12/24/21 04:00 BMI result Body Mass Index 25.8 Const: General: cooperative Eyes: General: appearance normal, both eyes and all related structures Pupils: Equal, round and reactive pupils present Resp: Effort & Inspection: normal respiratory effort Cardio: Rate: regular rate Rhythm: regular rhythm GI: Palpation (GI): Soft to palpation and nontender Neuro: Cranial nerves: Yes Equal, round and reactive pupils present Extrem: Other: left leg wrapped,had eschar Results Labs CBC & Chem 7: 12/23/21 04:07 12/24/21 05:46 Labs: BMP 12/24/21 05:46 Creatinine 1.35 Urine 12/24/21 Range/Units 13:20 Urine Color YELLOW Urine Appearance CLEAR Urine pH 6.0 (5.0-8.0) Ur Specific [place] 1.025 (1.005-1.025) Urine Protein NEG (NEG-TRACE) MG/DL Urine Glucose (UA) NEG (NEG) MG/DL Microbiology Microbiology Results: Microbiology 12/22/21 11:41 Blood - Venous Blood Culture - Preliminary No growth after 48 hours. 12/22/21 11:41 Blood - Venous Blood Culture - Preliminary No growth after 48 hours. Assessment and Plan (1) Non-healing wound of left lower extremity: Status: Acute There appears to be acute infection probably due to skin being open of chronic ulcer which may be infectious or possibly due to chronic venous changes or collagen vascular disease or pyoderma gangrenosum (2) Chronic ulcer of leg: Status: Acute (3) Cellulitis: Status: Acute Plan Continue Vancomycin and Zosyn for now treat possible bacterial superinfection of chronic ulcer. Would await biopsy (steroids helped in past and are ok if needed) Duration and type of antibiotics to be determined.
[2021-12-24 14:20] LABS: Creatinine Urine 135.33 mg/dL; Total Protein Urine Random 25 mg/dL (<12)
--- NOTE | 2021-12-24 15:50 | MHC.CM.PN ---
IMM 12/24/21, EMR REVIEWED, DEBRIDEMENT OF LLE WOUND DONE ON 12/23, WOUND CULTURE PENDING, BC'S PENDING, PT W/RIGHT LIVES W/, USES A CANE AND HAS A WALKER AT HOME, GRAB BARS IN [place], PT HAS NO HOME SERVICES AND SEES DR LYLES AT [facility] WK[facility] ON WEDNESDAYS, PT'S WOULD LIKE VNA SERVICES AND REPORTS SHE HAS BEEN DOING HIS DRESSINGS EOD AND SHE STARTED DOING THEM DAILY D/T TO AN INCREASE OF DRAINAGE AND SATURATED DRESSINGS, REPORTS PT WAS INITIALLY GOING TO [facility] [place] WHEN THEY FIRST RELOCATED FROM [place], REPORTS HCP WAS DONE IN [place] AND SHE WOULD LIKE TO COMPLETE A NEW ONE TOMORROW, PT VERIFIES MODERNA X3. D/C PLAN: HOME W/NEW VNA AND [facility] OF [facility], FAMILY FOR TRANSPORT.
[2021-12-24 19:03] LABS: Vancomycin Trough 8.4 mcg/mL (10.0-20.0)
[2021-12-24] MEDS: vancomycin HCL 1,250 MG in 0.9 % Sodium Chloride 250 ML 166.67 MG IV (19:55)
[2021-12-24] MEDS: DULoxetine HCl 20 MG CAPSULE.DR PO (19:55)
[2021-12-24] MEDS: 0.9 % Sodium Chloride Flush 3 ML SYRINGE IVFLUSH (19:56)
[2021-12-25] VITALS: BP 113/71; PULSE 73; RESP 18; TEMP 36.6; O2SAT 96
[2021-12-25] MEDS: Piperacillin Sodium/Tazobactam 3.375 GM in 0.9 % Sodium Chloride 50 ML IV ×4 (01:43→20:09)
[2021-12-25] MEDS: oxyCODONE HCl Immed Release 5 MG TABLET 10 MG PO ×3 (01:47→20:12)
[2021-12-25 04:00] VITALS: BP 128/75; PULSE 71; RESP 17; TEMP 36.4; O2SAT 94
[2021-12-25 06:35] LABS: Hematocrit 41.9 % (42.0-52.0); Hemoglobin 13.3 g/dl (14.0-18.0); Mean Corpuscular HGB Conc 31.7 g/dl (31.0-36.0); Mean Corpuscular Volume 94.6 fL (80.0-98.0); Platelet Count 168 X10*3/uL (160-400); Red Blood Count 4.43 X10*6/uL (4.60-5.80); Red Cell Distribution Width 13.9 % (11.0-16.0); White Blood Count 16.2 X10*3/uL (4.8-10.8)
[2021-12-25 07:05] LABS: Creatinine Clr Calc Pharmacy 50.6; Estimated Glomerular Filt Rate > 60
[2021-12-25 07:13] LABS: Anion Gap 12 (12-20); Blood Urea Nitrogen 17 mg/dL (9-16); Calcium 8.3 mg/dL (8.4-10.2); Carbon Dioxide 23 mmol/L (22-29); Chloride 111 mmol/L (96-108); Creatinine Clr Calc Pharmacy 48.8; Estimated Glomerular Filt Rate > 60; Glucose Random 77 mg/dL (60-115); Sodium 142 mmol/L (135-145)
[2021-12-25] MEDS: Baclofen 10 MG TABLET PO ×2 (07:27→20:12)
[2021-12-25 07:53] VITALS: BP 134/85; PULSE 70; RESP 18; TEMP 36.7; O2SAT 93
--- NOTE | 2021-12-25 08:12 | HE.PHANOTE ---
Vancomycin Dosing Addendum Patient has trough level 12/25 @1800. Renal function is improved. Predicted AUC 413 mg/L/hr
--- NOTE | 2021-12-25 08:24 | P.PNGS_ITS ---
Subjective Subjective Date of Service: 12/25/21 Interval history: He states he slept well last night Pain well controlled overnight but says he now has pain again Physical Exam Vital Signs: Vital Signs: Last Vital Signs Temp 98.1 F 12/25/21 07:53 Pulse 70 12/25/21 07:53 Resp 18 12/25/21 07:53 BP 134/85 12/25/21 07:53 Pulse Ox 93 12/25/21 07:53 O2 Del Method 12/25/21 07:53 O2 Flow Rate 2.0 12/25/21 07:53 BMI result Body Mass Index 25.8 Const: General: comfortable and no acute distress Resp: Effort & Inspection: normal respiratory effort Cardio: Rate: regular rate Extrem: Other: Dressings dry, nonbloody Objective Data Active Medications Acetaminophen (Acetaminophen 325 Mg Tablet) 650 mg PO Q6H PRN PRN Reason: Pain, Mild (Pain Scale 1-3) Albuterol Sulfate (Albuterol Sulfate 90 Mcg 8 Gm Inhaler) 1 puff INHALE RQ4H P RN PRN Reason: asthma Baclofen (Baclofen 10 Mg Tablet) 10 mg PO BID [facility] Last Admin: 12/25/21 07:27 Dose: 10 mg Documented By: UZIEL Docusate Sodium (Docusate Sodium 100 Mg Capsule) 100 mg PO DAILY PRN PRN Reason: Constipation Duloxetine HCl (Duloxetine Hcl 20 Mg Capsule.Dr) 20 mg PO BEDTIME [facility] Last Admin: 12/24/21 19:55 Dose: 20 mg Documented By: SAMUEL Fentanyl (Fentanyl Citrate/Pf 100 Mcg/2 Ml Vial) 50 mcg IVPUSH Q5M PRN; Protocol PRN Reason: Pain, Moderate (Pain Scale 4-6 Heparin Sodium (Porcine) (Heparin Sodium,Porcine 5,000 Unit/Ml Vial) 5,000 unit SUBCUT Q12H [facility] Last Admin: 12/24/21 21:31 Dose: 5,000 unit Documented By: SAMUEL Hydromorphone HCl (Hydromorphone Hcl 0.5 Mg/0.5 Ml Syringe) 0.5 mg IVPUSH Q5M PRN; Protocol PRN Reason: Pain, Severe (Pain Scale 7-10) Last Admin: 12/23/21 14:19 Dose: 0.5 mg Documented By: PAULO Hydromorphone HCl (Hydromorphone Hcl 1 Mg/Ml Syringe) 1 mg IVPUSH Q4H PRN; Protocol PRN Reason: Pain, Severe (Pain Scale 7-10) Last Admin: 12/24/21 21:38 Dose: 1 mg Documented By: SAMUEL Piperacillin Sod/Tazobactam (Sod 3.375 gm/ Sodium Chloride) 50 mls @ 100 mls/hr IV Q6H [facility] Last Admin: 12/25/21 07:27 Dose: 100 mls/hr Documented By: UZIEL Vancomycin HCl 1,250 mg/ (Sodium Chloride) 250 mls @ 166.667 mls/hr IV Q24H [facility] Last Infusion: 12/24/21 21:57 Dose: 0 mls/hr Documented By: SAMUEL Non-Formulary Medication (Umeclidinium-Vilanterol [Anoro Ellipta]) 1 inhalation INHALE DAILY PRN PRN Reason: Shortness Of Breath Ondansetron HCl (Ondansetron Hcl 4 Mg/2 Ml Vial) 4 mg IVPUSH Q8H PRN PRN Reason: Nausea and Vomiting Ondansetron HCl (Ondansetron Hcl 4 Mg/2 Ml Vial) 4 mg IVPUSH ONCE PRN PRN Reason: Nausea and Vomiting Oxycodone HCl (Oxycodone Hcl Immed Release 5 Mg Tablet) 10 mg PO ONCE PRN PRN Reason: Pain, Mild (Pain Scale 1-3) Oxycodone HCl (Oxycodone Hcl Immed Release 5 Mg Tablet) 10 mg PO Q4H PRN PRN Reason: Pain, Moderate (Pain Scale 4-6 Last Admin: 12/25/21 07:27 Dose: 10 mg Documented By: UZIEL Pharmacy Consult (Consult Rx Vancomycin Dosing) 1 each MISCELLANE DAILY PRN PRN Reason: Consult order Pharmacy Consult (Consult Rx Perform Med Rec) 1 each MISCELLANE ONCE PRN PRN Reason: Consult order Pharmacy Consult (Consult Rx Vancomycin Dosing) 1 each MISCELLANE DAILY PRN PRN Reason: Consult order Sodium Chloride (0.9 % Sodium Chloride Flush 3 Ml Syringe) 3 ml IVFLUSH QSHIFT [facility] Last Admin: 12/25/21 07:09 Dose: Not Given Documented By: HO.DABA Non-Admin Reason: IV Running Labs CBC & Chem 7: 12/25/21 05:59 12/25/21 05:59 Labs: Laboratory Results - last 24 hr 12/24/21 12/24/21 12/24/21 13:20 13:20 18:21 MCV MCH MCHC RDW Plt Count MPV Absolute Nucleated RBC Nucleated RBC % (auto) Anion Gap Estim Creat Clear Calc Estimated GFR Random Glucose Calcium Urine Color YELLOW Urine Appearance CLEAR Urine pH 6.0 Ur Specific [place] 1.025 Urine Protein NEG Urine Glucose (UA) NEG Urine Ketones NEG Urine Blood NEG Urine Nitrite NEG Ur Leukocyte Esterase NEG Urine RBC 0 Urine WBC 0 Ur Squamous Epith Cells NONE Uric Acid Crystals 1+ Urine Bacteria NONE U Random Total Protein 25 H Urine Creatinine 135.33 Vancomycin Trough 8.4 L 12/25/21 12/25/21 12/25/21 05:59 05:59 05:59 MCV 94.6 MCH 30.0 MCHC 31.7 RDW 13.9 Plt Count 168 MPV 9.0 L Absolute Nucleated RBC 0.000 Nucleated RBC % (auto) 0.0 Anion Gap 12 Estim Creat Clear Calc 48.8 50.6 Estimated GFR > 60 > 60 Random Glucose 77 Calcium 8.3 L Urine Color Urine Appearance Urine pH Ur Specific [place] Urine Protein Urine Glucose (UA) Urine Ketones Urine Blood Urine Nitrite Ur Leukocyte Esterase Urine RBC Urine WBC Ur Squamous Epith Cells Uric Acid Crystals Urine Bacteria U Random Total Protein Urine Creatinine Vancomycin Trough Microbiology Microbiology Results: Microbiology 12/22/21 11:41 Blood Culture - Preliminary Blood - Venous No growth after 48 hours. 12/22/21 11:41 Blood Culture - Preliminary Blood - Venous No growth after 48 hours. Procedures Date of Service Date of Service: 12/25/21 Progress Note: A&P Assessment and plan (1) Chronic ulcer of leg: Status: Acute Assessment and Plan: Status post debridement WBC down Will have dressing change with Dr. Vela today Pain management Will continue to follow Time Spent With Patient Time: Total time spent is greater than 50% in coordination of care (as documented) at patient's floor/unit and/or counseling patient: Quality Stroke Does the patient have a stroke diagnosis?: No VTE Prior VTE?: No VTE Risk Level:: Medical - moderate - high VTE Device Contraindication: Treatment Not Indicated VTE Drug Contraindication: N/A - Med Ordered
--- NOTE | 2021-12-25 10:43 | P.PNNP_ITS ---
Subjective Subjective Date of Service: 12/25/21 Interval history: Events noted leg wound Physical Exam Vital Signs: Vital Signs: Last Vital Signs Temp 98.1 F 12/25/21 07:53 Pulse 70 12/25/21 07:53 Resp 18 12/25/21 07:53 BP 134/85 12/25/21 07:53 Pulse Ox 93 12/25/21 07:53 O2 Del Method 12/25/21 07:53 O2 Flow Rate 2.0 12/25/21 07:53 BMI result Body Mass Index 25.8 Const: General: alert and awake Orientation/consciousness: patient oriented x3 Neck: Neck: Yes supple and Yes no JVD Resp: Auscultation: clear to auscultation bilaterally, no crackles and no rhonchi Cardio: Heart sounds: S1 normal heart sound present, S2 normal heart sound present, no murmurs and no rubs GI: Palpation (GI): Soft to palpation and nontender Auscultation: normal bowel sounds Skin: Rashes: no rashes Neuro: General: patient oriented x3 Motor exam (neuro): no asterixis Objective Data Labs CBC & Chem 7: 12/25/21 05:59 12/25/21 05:59 Labs: Laboratory Results - last 24 hr 12/24/21 12/24/21 12/24/21 13:20 13:20 18:21 WBC RBC Hgb Hct MCV MCH MCHC RDW Plt Count MPV Absolute Nucleated RBC Nucleated RBC % (auto) Sodium Potassium Chloride Carbon Dioxide Anion Gap BUN Creatinine Estim Creat Clear Calc Estimated GFR Random Glucose Calcium Urine Color YELLOW Urine Appearance CLEAR Urine pH 6.0 Ur Specific [employer] 1.025 Urine Protein NEG Urine Glucose (UA) NEG Urine Ketones NEG Urine Blood NEG Urine Nitrite NEG Ur Leukocyte Esterase NEG Urine RBC 0 Urine WBC 0 Ur Squamous Epith Cells NONE Uric Acid Crystals 1+ Urine Bacteria NONE U Random Total Protein 25 H Urine Creatinine 135.33 Vancomycin Trough 8.4 L 12/25/21 12/25/21 12/25/21 05:59 05:59 05:59 WBC 16.2 H RBC 4.43 L Hgb 13.3 L Hct 41.9 L MCV 94.6 MCH 30.0 MCHC 31.7 RDW 13.9 Plt Count 168 MPV 9.0 L Absolute Nucleated RBC 0.000 Nucleated RBC % (auto) 0.0 Sodium 142 Potassium 4.0 Chloride 111 H Carbon Dioxide 23 Anion Gap 12 BUN 17 H Creatinine 1.16 1.12 Estim Creat Clear Calc 48.8 50.6 Estimated GFR > 60 > 60 Random Glucose 77 Calcium 8.3 L Urine Color Urine Appearance Urine pH Ur Specific [employer] Urine Protein Urine Glucose (UA) Urine Ketones Urine Blood Urine Nitrite Ur Leukocyte Esterase Urine RBC Urine WBC Ur Squamous Epith Cells Uric Acid Crystals Urine Bacteria U Random Total Protein Urine Creatinine Vancomycin Trough Microbiology Microbiology Results: Microbiology 12/22/21 11:41 Blood - Venous Blood Culture - Preliminary No growth after 48 hours. 12/22/21 11:41 Blood - Venous Blood Culture - Preliminary No growth after 48 hours. Procedures Date of Service Date of Service: 12/25/21 Assessment & Plan Assessment and plan (1) CKD (chronic kidney disease) stage 3, GFR 30-59 ml/min: Plan 1. Acute kidney injury, superimposed on chronic kidney disease. 2. Chronic leg ulcers. 3. Rheumatoid arthritis. 4. Acute kidney injury mostly related to volume depletion.? However, he did receive vancomycin.? Therefore, vanco induced brain injury is a possibility. Obstructive uropathy should be considered as well.? He does have underlying chronic kidney disease.? This has been related to chronic use of NSAIDs. However, with rheumatoid arthritis, he could have underlying pulmonary disease as well. Ua- No hematuria or protineria RECOMMENDATION:? .? Keep intake more than the output.? Renal function back to baseline Time Spent With Patient Time: Total time spent is greater than 50% in coordination of care (as documented) at patient's floor/unit and/or counseling patient: Progress Note: Quality Stroke Does the patient have a stroke diagnosis?: No
[2021-12-25] MEDS: Heparin Sodium,Porcine 5,000 UNIT/ML VIAL 5000 UNIT SUBCUT ×2 (10:48→22:32)
[2021-12-25] MEDS: HYDROmorphone HCl 1 MG/ML SYRINGE IVPUSH (11:32)
[2021-12-25 11:37] LABS: Complement C3 52 mg/dL (82-185)
[2021-12-25 12:00] VITALS: RESP 17
[2021-12-25] MEDS: 0.9 % Sodium Chloride Flush 3 ML SYRINGE IVFLUSH ×2 (13:32→20:55)
--- NOTE | 2021-12-25 13:55 | P.PNIM_ITS ---
Subjective Subjective Date of Service: 12/25/21 Interval History: leg wound Review of Systems still has leg pain , erythema slightly better denies any nausea vomiting or fever chills. Physical Exam Vital Signs: Vital Signs: Last Vital Signs Temp 98.1 F 12/25/21 07:53 Pulse 70 12/25/21 07:53 Resp 18 12/25/21 07:53 BP 134/85 12/25/21 07:53 Pulse Ox 93 12/25/21 07:53 O2 Del Method 12/25/21 13:00 O2 Flow Rate 2.0 12/25/21 07:53 Oxygen Flow Rate 2 12/25/21 12:00 BMI result Body Mass Index 25.8 ?Appearance: Alert.? Oriented X3.? not in distress.? cvs: rrr, [id number] , no murmur res: clear to auscultation ,no rhonchii or wheezing abd: no rebound or guarding ,nt, bs present. ext pulses present , no cyanosis ,left leg ulcers -wrapped ( less pain similar to yesterday) neuro: axo3 , nonfocal.? Objective Data Active Medications Acetaminophen (Acetaminophen 325 Mg Tablet) 650 mg PO Q6H PRN PRN Reason: Pain, Mild (Pain Scale 1-3) Albuterol Sulfate (Albuterol Sulfate 90 Mcg 8 Gm Inhaler) 1 puff INHALE RQ4H PRN PRN Reason: asthma Baclofen (Baclofen 10 Mg Tablet) 10 mg PO BID [facility] Last Admin: 12/25/21 07:27 Dose: 10 mg Documented By: UZIEL Docusate Sodium (Docusate Sodium 100 Mg Capsule) 100 mg PO DAILY PRN PRN Reason: Constipation Duloxetine HCl (Duloxetine Hcl 20 Mg Capsule.Dr) 20 mg PO BEDTIME [facility] Last Admin: 12/24/21 19:55 Dose: 20 mg Documented By: SAMUEL Fentanyl (Fentanyl Citrate/Pf 100 Mcg/2 Ml Vial) 50 mcg IVPUSH Q5M PRN; Protocol PRN Reason: Pain, Moderate (Pain Scale 4-6 Heparin Sodium (Porcine) (Heparin Sodium,Porcine 5,000 Unit/Ml Vial) 5,000 unit SUBCUT Q12H [facility] Last Admin: 12/25/21 10:48 Dose: 5,000 unit Documented By: UZIEL Hydromorphone HCl (Hydromorphone Hcl 0.5 Mg/0.5 Ml Syringe) 0.5 mg IVPUSH Q5M PRN; Protocol PRN Reason: Pain, Severe (Pain Scale 7-10) Last Admin: 12/23/21 14:19 Dose: 0.5 mg Documented By: PAULO Hydromorphone HCl (Hydromorphone Hcl 1 Mg/Ml Syringe) 1 mg IVPUSH Q4H PRN; Protocol PRN Reason: Pain, Severe (Pain Scale 7-10) Last Admin: 12/25/21 11:32 Dose: 1 mg Documented By: UZIEL Piperacillin Sod/Tazobactam (Sod 3.375 gm/ Sodium Chloride) 50 mls @ 100 mls/hr IV Q6H [facility] Last Admin: 12/25/21 13:30 Dose: 100 mls/hr Documented By: UZIEL Vancomycin HCl 1,250 mg/ (Sodium Chloride) 250 mls @ 166.667 mls/hr IV Q24H [facility] Last Infusion: 12/24/21 21:57 Dose: 0 mls/hr Documented By: SAMUEL Non-Formulary Medication (Umeclidinium-Vilanterol [Anoro Ellipta]) 1 inhalation INHALE DAILY PRN PRN Reason: Shortness Of Breath Ondansetron HCl (Ondansetron Hcl 4 Mg/2 Ml Vial) 4 mg IVPUSH Q8H PRN PRN Reason: Nausea and Vomiting Ondansetron HCl (Ondansetron Hcl 4 Mg/2 Ml Vial) 4 mg IVPUSH ONCE PRN PRN Reason: Nausea and Vomiting Oxycodone HCl (Oxycodone Hcl Immed Release 5 Mg Tablet) 10 mg PO ONCE PRN PRN Reason: Pain, Mild (Pain Scale 1-3) Oxycodone HCl (Oxycodone Hcl Immed Release 5 Mg Tablet) 10 mg PO Q4H PRN PRN Reason: Pain, Moderate (Pain Scale 4-6 Last Admin: 12/25/21 07:27 Dose: 10 mg Documented By: UZIEL Pharmacy Consult (Consult Rx Vancomycin Dosing) 1 each MISCELLANE DAILY PRN PRN Reason: Consult order Pharmacy Consult (Consult Rx Perform Med Rec) 1 each MISCELLANE ONCE PRN PRN Reason: Consult order Pharmacy Consult (Consult Rx Vancomycin Dosing) 1 each MISCELLANE DAILY PRN PRN Reason: Consult order Sodium Chloride (0.9 % Sodium Chloride Flush 3 Ml Syringe) [facility] Last Admin: 12/25/21 13:32 Dose: 3 ml Documented By: UZIEL Labs CBC & Chem 7: 12/25/21 05:59 12/25/21 05:59 Labs: Laboratory Results - last 24 hr 12/24/21 12/24/21 12/24/21 10:59 13:20 13:20 MCV MCH MCHC RDW Plt Count MPV Absolute Nucleated RBC Nucleated RBC % (auto) Anion Gap Estim Creat Clear Calc Estimated GFR Random Glucose Calcium Urine RBC 0 Urine WBC 0 Ur Squamous Epith Cells NONE Uric Acid Crystals 1+ Urine Bacteria NONE U Random Total Protein 25 H Urine Creatinine 135.33 Vancomycin Trough Complement C3 52 L Complement C4 15 12/24/21 12/25/21 12/25/21 18:21 05:59 05:59 MCV 94.6 MCH 30.0 MCHC 31.7 RDW 13.9 Plt Count 168 MPV 9.0 L Absolute Nucleated RBC 0.000 Nucleated RBC % (auto) 0.0 Anion Gap 12 Estim Creat Clear Calc 48.8 Estimated GFR > 60 Random Glucose 77 Calcium 8.3 L Urine RBC Urine WBC Ur Squamous Epith Cells Uric Acid Crystals Urine Bacteria U Random Total Protein Urine Creatinine Vancomycin Trough 8.4 L Complement C3 Complement C4 12/25/21 05:59 MCV MCH MCHC RDW Plt Count MPV Absolute Nucleated RBC Nucleated RBC % (auto) Anion Gap Estim Creat Clear Calc 50.6 Estimated GFR > 60 Random Glucose Calcium Urine RBC Urine WBC Ur Squamous Epith Cells Uric Acid Crystals Urine Bacteria U Random Total Protein Urine Creatinine Vancomycin Trough Complement C3 Complement C4 Microbiology Microbiology Results: Microbiology 12/22/21 11:41 Blood Culture - Preliminary Blood - Venous No growth after 48 hours. 12/22/21 11:41 Blood Culture - Preliminary Blood - Venous No growth after 48 hours. Assessment and Plan (1) Non-healing wound of left lower extremity: Status: Acute (2) Cellulitis: Status: Acute Plan 76-year-old male with past medical history of chronic leg wound, Sjogren's disease, 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 presents to the hospital of complaints of worsening pain on his left lower leg ?nonhealing wound of left lower extremity - patient was increased erythema, pain, wound drainage of a chronic lower extremity ulcer - patient and at bedside reports the patient is being investigated for possible vasculitis but has not been confirm have vasculitis - no history of diabetes - afebrile but has leukocytosis trending down , blood cultures neg@48hrs on IV antibiotics-vanco,zosyn -vanco trough. normal ESR and CRP therefore osteomyelitis less likely - surgery consulted -s/psurgical debridement day 3. ?cellulitis - erythema, warmth, tenderness, as well as edema up to just below the left knee - will treat with IV antibiotics, cover for staph given the drainage and skin breakdown follow vanco trough - follow cultures - infectious disease consulted rheumatoid arthritis - continue home medication as well as prednisone ?COPD - not in exacerbation - continue home inhalers joshua on ckd:cr at [facility] his cr was 1.2 earlier this year nephrology -added workup-spep,immunlogical- Proteus 3, myeloperoxidase, complement C3 and C4. DVT prophylaxis:? Heparin subQ inpatient needs: left leg ulcer /cellulitis- IV antibiotics Quality Stroke Does the patient have a stroke diagnosis?: No VTE Prior VTE?: No VTE Risk Level:: Medical - moderate - high VTE Device Contraindication: Treatment Not Indicated VTE Drug Contraindication: N/A - Med Ordered
--- NOTE | 2021-12-25 14:33 | HO.WOUNDCONS ---
History of Present Illness Data of Consult Service Date: 12/24/21 Requesting physician: Hernan Hastings Primary Care Provider: MD MARINO White Reason for consult: leg wound the patient is a 76-year-old male who has had peripheral extremity wounds for many years without a distinct etiology. He has Srojens disease and RA insert we are assuming that this was some kind of vasculitis or other inflammatory autoimmune disease process. He has had other product info specialist back at his home in [place] take care of him. He says that he occasionally gets on steroids and that helps him with his wounds. He complains that his wounds are extremely painful and he recently has seen pain management for this. Last week he came into the hospital after being started about 2 weeks ago on some steroids that he asked for. This was because the wounds were getting worse and we set him up with Dermatology but he was in so much pain that we started prednisone taper before he saw Dermatology. Last week in the office visit the wound looked a little worse on the lateral leg larger is clean it is very difficult to read or do anything because he is in so much pain. Over the next couple of days the pain got worse the wound looked worse such that he came in for an emergency clinic visit here on Wednesday morning and the wound was significantly worse with necrotic tissue and he was sent over to the hospital. He was admitted and then underwent surgical excision of this necrotic tissue and now having wound care consulted to determine what else needs to be done. The pathology specimen did not reveal any significant findings other than the chronic gangrenous tissue. he is also being seen for chronic renal insufficiency. His main complaint is the continuous pain. It seems like there is almost a neuropathic component to this pain Review of Systems Review of Systems: Yes all other systems are reviewed and are negative [facility] Medical History Chronic ulcer of leg CKD (chronic kidney disease) stage 3, GFR 30-59 ml/min COPD (chronic obstructive pulmonary disease) Elevated serum creatinine HTN (hypertension) Rheumatoid arthritis Sjogren's disease Vasculitis Functional capacity: independent ambulation Family History Other No family history of coronary artery disease Surgical History History of hernia repair History of left knee replacement Social History Household Members: Spouse Housing: House Do you presently have visiting nurse or other home services: No Alcohol intake: current Alcohol intake frequency: former alcohol drinker Patient Tobacco Use Status: Former Tobacco user Tobacco use type: Cigarette Years Smoked: quit 2019 e-Cigarette/Vaping Use: Never Used Advance Directives Date on File: 12/23/21 service: No Current occupational status: retired Cognitive needs: Yes (cane) Hearing needs: No Vision needs: Yes (Pt wear glasses. ) Meds Allergies Allergy/AdvReac Type Severity Reaction Status Date / Time No Known Allergies Allergy Verified 12/22/21 11:15 [No Known Allergies*] Active Medications: Current Medications Acetaminophen (Acetaminophen 325 Mg Tablet) 650 mg PO Q6H PRN PRN Reason: Pain, Mild (Pain Scale 1-3) Albuterol Sulfate (Albuterol Sulfate 90 Mcg 8 Gm Inhaler) 1 puff INHALE RQ4H PRN PRN Reason: asthma Baclofen (Baclofen 10 Mg Tablet) 10 mg PO BID [facility] Last Admin: 12/25/21 07:27 Dose: 10 mg Docusate Sodium (Docusate Sodium 100 Mg Capsule) 100 mg PO DAILY PRN PRN Reason: Constipation Duloxetine HCl (Duloxetine Hcl 20 Mg Capsule.Dr) 20 mg PO BEDTIME [facility] Last Admin: 12/24/21 19:55 Dose: 20 mg Fentanyl (Fentanyl Citrate/Pf 100 Mcg/2 Ml Vial) 50 mcg IVPUSH Q5M PRN; Protocol PRN Reason: Pain, Moderate (Pain Scale 4-6 Heparin Sodium (Porcine) (Heparin Sodium,Porcine 5,000 Unit/Ml Vial) 5,000 unit SUBCUT Q12H [facility] Last Admin: 12/25/21 10:48 Dose: 5,000 unit Hydromorphone HCl (Hydromorphone Hcl 0.5 Mg/0.5 Ml Syringe) 0.5 mg IVPUSH Q5M PRN; Protocol PRN Reason: Pain, Severe (Pain Scale 7-10) Last Admin: 12/23/21 14:19 Dose: 0.5 mg Hydromorphone HCl (Hydromorphone Hcl 1 Mg/Ml Syringe) 1 mg IVPUSH Q4H PRN; Protocol PRN Reason: Pain, Severe (Pain Scale 7-10) Last Admin: 12/25/21 11:32 Dose: 1 mg Piperacillin Sod/Tazobactam (Sod 3.375 gm/ Sodium Chloride) 50 mls @ 100 mls/hr IV Q6H [facility] Last Infusion: 12/25/21 14:17 Dose: Infused Vancomycin HCl 1,250 mg/ (Sodium Chloride) 250 mls @ 166.667 mls/hr IV Q24H [facility] Last Infusion: 12/24/21 21:57 Dose: Infused Non-Formulary Medication (Umeclidinium-Vilanterol [Anoro Ellipta]) 1 inhalation INHALE DAILY PRN PRN Reason: Shortness Of Breath Ondansetron HCl (Ondansetron Hcl 4 Mg/2 Ml Vial) 4 mg IVPUSH Q8H PRN PRN Reason: Nausea and Vomiting Ondansetron HCl (Ondansetron Hcl 4 Mg/2 Ml Vial) 4 mg IVPUSH ONCE PRN PRN Reason: Nausea and Vomiting Oxycodone HCl (Oxycodone Hcl Immed Release 5 Mg Tablet) 10 mg PO ONCE PRN PRN Reason: Pain, Mild (Pain Scale 1-3) Oxycodone HCl (Oxycodone Hcl Immed Release 5 Mg Tablet) 10 mg PO Q4H PRN PRN Reason: Pain, Moderate (Pain Scale 4-6 Last Admin: 12/25/21 07:27 Dose: 10 mg Pharmacy Consult (Consult Rx Vancomycin Dosing) 1 each MISCELLANE DAILY PRN PRN Reason: Consult order Pharmacy Consult (Consult Rx Perform Med Rec) 1 each MISCELLANE ONCE PRN PRN Reason: Consult order Pharmacy Consult (Consult Rx Vancomycin Dosing) 1 each MISCELLANE DAILY PRN PRN Reason: Consult order Sodium Chloride (0.9 % Sodium Chloride Flush 3 Ml Syringe) 3 ml IVFLUSH QSHIFT [facility] Last Admin: 12/25/21 13:32 Dose: 3 ml Home Medications Medication Instructions Recorded Confirmed Last Taken Type umeclidinium 62.5 mcg-vilanterol 1 inh inhalation DAILY PRN 10/15/21 12/22/21 Unknown History 25 mcg/actuation powdr for Shortness Of Breath inhalation (Anoro Ellipta) acetaminophen 500 mg tablet 1,000 mg PO Q6H PRN Pain (Scale 10/30/21 12/22/21 12/22/21 History (Tylenol Extra Strength) Score 1-3) albuterol sulfate 90 mcg/actuation 2 puff inhalation Q6H PRN 11/28/21 12/22/21 Unknown History aerosol inhaler (ProAir HFA) Shortness Of Breath tocilizumab 80 mg/4 mL (20 mg/mL) 0 mg IV Q30D 11/28/21 12/22/21 12/02/21 History intravenous solution (Actemra) duloxetine 20 mg capsule,delayed 20 mg PO BEDTIME 12/19/21 12/22/21 12/21/21 History release prednisone 10 mg tablet See Taper PO DAILY 12/19/21 12/22/21 12/21/21 History Physical Exam Vital Signs and Narrative: Vital Signs: Last Vital Signs Temp 98.1 F 12/25/21 07:53 Pulse 70 12/25/21 07:53 Resp 18 12/25/21 07:53 BP 134/85 12/25/21 07:53 Pulse Ox 93 12/25/21 07:53 O2 Del Method 12/25/21 13:00 O2 Flow Rate 2.0 12/25/21 07:53 Oxygen Flow Rate 2 12/25/21 12:00 BMI result Body Mass Index 25.8 Const: General: cooperative and healthy appearing HEENT: Head: Yes normal to inspection Skin: Other: the patient's left leg is very tender his skin is super sensitive and he has hyperesthesia to even light touch. On the lateral aspect of the left lower leg there is an open wound which was debrided down to some fatty skin tissue layer as well as deeper dermal layer. The area is very sensitive to light touch there is no purulent material it does not appear to be necrotic tissue. On the back of the left thigh there is a little raw area which looks like some blistered skin has broken down and this also is very tender. There is no purulent material draining anywhere his clear fluid from the posterior calf Patient has palpable pedal pulses Neuro: Other: hyperesthesia of left leg and foot especially around the wounds Results Labs CBC and Chem 7: 12/25/21 05:59 12/25/21 05:59 Labs: Laboratory Results - last 24 hr 12/24/21 12/24/21 12/25/21 10:59 18:21 05:59 MCV 94.6 MCH 30.0 MCHC 31.7 RDW 13.9 Plt Count 168 MPV 9.0 L Absolute Nucleated RBC 0.000 Nucleated RBC % (auto) 0.0 Anion Gap Estim Creat Clear Calc Estimated GFR Random Glucose Calcium Vancomycin Trough 8.4 L Complement C3 52 L Complement C4 15 12/25/21 12/25/21 05:59 05:59 MCV MCH MCHC RDW Plt Count MPV Absolute Nucleated RBC Nucleated RBC % (auto) Anion Gap 12 Estim Creat Clear Calc 48.8 50.6 Estimated GFR > 60 > 60 Random Glucose 77 Calcium 8.3 L Vancomycin Trough Complement C3 Complement C4 Assessment and Plan (1) Non-healing wound of left lower extremity: Status: Acute Plan 76-year-old male who left leg wounds very painful question the etiology of this necrotic wound. He had been on prednisone before to treat these as he is said in the past they have responded to prednisone. He does have other autoimmune issues. Pathology on the skin specimen does not reveal any significant diagnostic findings. Plan is to continue with the IV antibiotics and switch to p.o. as recommended by Infectious Diseases. Increased protein diet. Two wet to dry for right now and then also get Pain Service involved. Getting him on some type of narcotic as well as potentially gabapentin may be beneficial. Once he is discharged we can follow up with him in the outpatient setting. This was all extensively discussed with his team and the patient and his in the understand and agree
[2021-12-25 15:24] VITALS: BP 110/72; PULSE 76; RESP 18; TEMP 36.3; O2SAT 94
[2021-12-25] MEDS: Gabapentin 100 MG CAPSULE 200 MG PO ×2 (15:40→20:12)
[2021-12-25 18:13] LABS: Vancomycin Trough 10.3 mcg/mL (10.0-20.0)
--- NOTE | 2021-12-25 18:38 | HE.PHANOTE ---
Patient trough 10.3 and scr improving, increase dose to 1500 mg q24 , predicted auc 459, trough 12, next level 12/26@1800
[2021-12-25 19:46] VITALS: BP 117/73; PULSE 81; RESP 18; TEMP 36.9; O2SAT 96
[2021-12-25] MEDS: DULoxetine HCl 20 MG CAPSULE.DR PO (20:12)
[2021-12-25] MEDS: vancomycin HCL 1,500 MG in 0.9 % Sodium Chloride 500 ML 333.33 MG IV (20:49)
[2021-12-26] VITALS (11 sets, daily range): BP systolic 113–155; BP diastolic 66–96; PULSE 65–84; RESP 17–18; TEMP 36.2–37.1; O2SAT 91–97
[2021-12-26] MEDS: Piperacillin Sodium/Tazobactam 3.375 GM in 0.9 % Sodium Chloride 50 ML IV ×2 (01:46→09:12)
[2021-12-26] MEDS: oxyCODONE HCl Immed Release 5 MG TABLET 10 MG PO ×2 (04:03→09:21)
[2021-12-26 07:07] LABS: Estimated Glomerular Filt Rate > 60
--- NOTE | 2021-12-26 07:56 | P.PNIM_ITS ---
Subjective Subjective Date of Service: 12/27/21 Interval History: leg wound/persistent leg pain Review of Systems denies any chest pain or shortness of breath or abdominal pain or fever chills. Physical Exam Vital Signs: Vital Signs: Last Vital Signs Temp 98.6 F 12/26/21 04:00 Pulse 84 12/26/21 04:00 Resp 18 12/26/21 04:00 BP 146/87 H 12/26/21 04:00 Pulse Ox 92 12/26/21 04:00 O2 Del Method 12/26/21 04:00 O2 Flow Rate 2 12/26/21 04:00 Oxygen Flow Rate 2 12/25/21 12:00 BMI result Body Mass Index 25.8 Appearance: Alert.? Oriented X3.? not in distress.? cvs: rrr, [id number] , no murmur res: clear to auscultation ,no rhonchii or wheezing abd: no rebound or guarding ,nt, bs present. ext pulses present , no cyanosis ,left leg ulcers -wrapped ( less pain similar to yesterday) neuro: axo3 , nonfocal.? Objective Data Active Medications Acetaminophen (Acetaminophen 325 Mg Tablet) 975 mg PO Q8H PRN PRN Reason: Pain, Mild (Pain Scale 1-3) Albuterol Sulfate (Albuterol Sulfate 90 Mcg 8 Gm Inhaler) 1 puff INHALE RQ4H PRN PRN Reason: asthma Baclofen (Baclofen 10 Mg Tablet) 10 mg PO BID [facility] Last Admin: 12/25/21 20:12 Dose: 10 mg Documented By: SAMUEL Docusate Sodium (Docusate Sodium 100 Mg Capsule) 100 mg PO DAILY PRN PRN Reason: Constipation Duloxetine HCl (Duloxetine Hcl 20 Mg Capsule.) 20 mg PO BEDTIME [facility] Last Admin: 12/25/21 20:12 Dose: 20 mg Documented By: SAMUEL Fentanyl (Fentanyl Citrate/Pf 100 Mcg/2 Ml Vial) 50 mcg IVPUSH Q5M PRN; Protocol PRN Reason: Pain, Moderate (Pain Scale 4-6 Gabapentin (Gabapentin 100 Mg Capsule) 200 mg PO BID [facility] Last Admin: 12/25/21 20:12 Dose: 200 mg Documented By: SAMUEL Heparin Sodium (Porcine) (Heparin Sodium,Porcine 5,000 Unit/Ml Vial) 5,000 unit SUBCUT Q12H [facility] Last Admin: 12/25/21 22:32 Dose: 5,000 unit Documented By: SAMUEL Hydromorphone HCl (Hydromorphone Hcl 0.5 Mg/0.5 Ml Syringe) 0.5 mg IVPUSH Q5M PRN; Protocol PRN Reason: Pain, Severe (Pain Scale 7-10) Last Admin: 12/23/21 14:19 Dose: 0.5 mg Documented By: PAULO Hydromorphone HCl (Hydromorphone Hcl 1 Mg/Ml Syringe) 1 mg IVPUSH Q4H PRN; Protocol PRN Reason: Pain, Severe (Pain Scale 7-10) Last Admin: 12/25/21 11:32 Dose: 1 mg Documented By: UZIEL Piperacillin Sod/Tazobactam (Sod 3.375 gm/ Sodium Chloride) 50 mls @ 100 mls/hr IV Q6H [facility] Last Infusion: 12/26/21 02:17 Dose: 0 mls/hr Documented By: SAMUEL Vancomycin HCl 1,500 mg/ (Sodium Chloride) 500 mls @ 333.333 mls/hr IV Q24H [facility] Last Infusion: 12/25/21 22:34 Dose: 0 mls/hr Documented By: SAMUEL Non-Formulary Medication (Umeclidinium-Vilanterol [Anoro Ellipta]) 1 inhalation INHALE DAILY PRN PRN Reason: Shortness Of Breath Ondansetron HCl (Ondansetron Hcl 4 Mg/2 Ml Vial) 4 mg IVPUSH Q8H PRN PRN Reason: Nausea and Vomiting Ondansetron HCl (Ondansetron Hcl 4 Mg/2 Ml Vial) 4 mg IVPUSH ONCE PRN PRN Reason: Nausea and Vomiting Oxycodone HCl (Oxycodone Hcl Immed Release 5 Mg Tablet) 10 mg PO ONCE PRN PRN Reason: Pain, Mild (Pain Scale 1-3) Oxycodone HCl (Oxycodone Hcl Immed Release 5 Mg Tablet) 10 mg PO Q4H PRN PRN Reason: Pain, Moderate (Pain Scale 4-6 Last Admin: 12/26/21 04:03 Dose: 10 mg Documented By: SAMUEL Pharmacy Consult (Consult Rx Vancomycin Dosing) 1 each MISCELLANE DAILY PRN PRN Reason: Consult order Pharmacy Consult (Consult Rx Perform Med Rec) 1 each MISCELLANE ONCE PRN PRN Reason: Consult order Pharmacy Consult (Consult Rx Vancomycin Dosing) 1 each MISCELLANE DAILY PRN PRN Reason: Consult order Sodium Chloride (0.9 % Sodium Chloride Flush 3 Ml Syringe) 3 ml IVFLUSH QSHIFT [facility]ER Last Admin: 12/25/21 20:55 Dose: 3 ml Documented By: SAMUEL Labs CBC & Chem 7: 12/25/21 05:59 12/27/21 06:04 Labs: Laboratory Results - last 24 hr 12/24/21 12/25/21 12/26/21 10:59 17:44 05:38 Estim Creat Clear Calc 53.0 Estimated GFR > 60 Vancomycin Trough 10.3 Complement C3 52 L Complement C4 15 Assessment and Plan (1) Muscle spasm: Status: Acute (2) Cellulitis: Status: Acute (3) Chronic ulcer of leg: Status: Acute Plan 76-year-old male with past medical history of chronic leg wound, Sjogren's disease, 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 presents to the hospital of complaints of worsening pain on his left lower leg ?nonhealing wound of left lower extremity - patient was increased erythema, pain, wound drainage of a chronic lower extremity ulcer - patient and at bedside reports the patient is being investigated for possible vasculitis but has not been confirm have vasculitis - no history of diabetes - afebrile but has leukocytosis trending down , blood cultures neg@48hrs on IV antibiotics-vanco,zosyn -vanco trough. normal ESR and CRP therefore osteomyelitis less likely - surgery consulted -s/psurgical debridement? day 3. ?cellulitis - erythema, warmth, tenderness, as well as edema up to just below the left knee - will treat with IV antibiotics, cover for staph given the drainage and skin breakdown follow vanco trough - follow cultures - infectious disease consulted rheumatoid arthritis - continue home medication as well as prednisone ?COPD - not in exacerbation - continue home inhalers joshua on ckd:cr at [facility] his cr was 1.2 earlier this year nephrology -added workup-spep,immunlogical-? Proteus 3, myeloperoxidase, compl ement C3 and C4. DVT prophylaxis:? Heparin subQ inpatient needs: left leg ulcer /cellulitis- IV antibiotics,pain control. Quality Stroke Does the patient have a stroke diagnosis?: No VTE Prior VTE?: No VTE Risk Level:: Medical - moderate - high VTE Device Contraindication: Treatment Not Indicated VTE Drug Contraindication: N/A - Med Ordered
--- NOTE | 2021-12-26 08:20 | PM.PNGS ---
Subjective Subjective Date of Service: 12/26/21 Interval history: c/o spasms, pain on left leg ulcer dressings changed by [facility] yesterday Physical Exam Vital Signs: Vital Signs: Last Vital Signs Temp 98.3 F 12/26/21 07:58 Pulse 82 12/26/21 07:58 Resp 17 12/26/21 07:58 BP 155/96 H 12/26/21 07:58 Pulse Ox 92 12/26/21 07:58 O2 Del Method 12/26/21 07:58 O2 Flow Rate 2.0 12/26/21 07:58 Oxygen Flow Rate 2 12/25/21 12:00 BMI result Body Mass Index 25.8 Const: General: no acute distress Resp: Effort & Inspection: normal respiratory effort Cardio: Rate: regular rate GI: Palpation (GI): Soft to palpation and nontender Objective Data Active Medications Acetaminophen (Acetaminophen 325 Mg Tablet) 975 mg PO Q8H PRN PRN Reason: Pain, Mild (Pain Scale 1-3) Albuterol Sulfate (Albuterol Sulfate 90 Mcg 8 Gm Inhaler) 1 puff INHALE RQ4H PRN PRN Reason: asthma Baclofen (Baclofen 10 Mg Tablet) 10 mg PO BID [facility] Last Admin: 12/25/21 20:12 Dose: 10 mg Documented By: SAMUEL Docusate Sodium (Docusate Sodium 100 Mg Capsule) 100 mg PO DAILY PRN PRN Reason: Constipation Duloxetine HCl (Duloxetine Hcl 20 Mg Capsule.Dr) 20 mg PO BEDTIME [facility] Last Admin: 12/25/21 20:12 Dose: 20 mg Documented By: SAMUEL Fentanyl (Fentanyl Citrate/Pf 100 Mcg/2 Ml Vial) 50 mcg IVPUSH Q5M PRN; Protocol PRN Reason: Pain, Moderate (Pain Scale 4-6 Gabapentin (Gabapentin 100 Mg Capsule) 200 mg PO BID [facility] Last Admin: 12/25/21 20:12 Dose: 200 mg Documented By: SAMUEL Heparin Sodium (Porcine) (Heparin Sodium,Porcine 5,000 Unit/Ml Vial) 5,000 unit SUBCUT Q12H [facility] Last Admin: 12/25/21 22:32 Dose: 5,000 unit Documented By: SAMUEL Hydromorphone HCl (Hydromorphone Hcl 0.5 Mg/0.5 Ml Syringe) 0.5 mg IVPUSH Q5M PRN; Protocol PRN Reason: Pain, Severe (Pain Scale 7-10) Last Admin: 12/23/21 14:19 Dose: 0.5 mg Documented By: PAULO Hydromorphone HCl (Hydromorphone Hcl 1 Mg/Ml Syringe) 1 mg IVPUSH Q4H PRN; Protocol PRN Reason: Pain, Severe (Pain Scale 7-10) Last Admin: 12/25/21 11:32 Dose: 1 mg Documented By: UZIEL Piperacillin Sod/Tazobactam (Sod 3.375 gm/ Sodium Chloride) 50 mls @ 100 mls/hr IV Q6H [facility] Last Infusion: 12/26/21 02:17 Dose: 0 mls/hr Documented By: SAMUEL Vancomycin HCl 1,500 mg/ (Sodium Chloride) 500 mls @ 333.333 mls/hr IV Q24H [facility] Last Infusion: 12/25/21 22:34 Dose: 0 mls/hr Documented By: SAMUEL Non-Formulary Medication (Umeclidinium-Vilanterol [Anoro Ellipta]) 1 inhalation INHALE DAILY PRN PRN Reason: Shortness Of Breath Ondansetron HCl (Ondansetron Hcl 4 Mg/2 Ml Vial) 4 mg IVPUSH Q8H PRN PRN Reason: Nausea and Vomiting Ondansetron HCl (Ondansetron Hcl 4 Mg/2 Ml Vial) 4 mg IVPUSH ONCE PRN PRN Reason: Nausea and Vomiting Oxycodone HCl (Oxycodone Hcl Immed Release 5 Mg Tablet) 10 mg PO ONCE PRN PRN Reason: Pain, Mild (Pain Scale 1-3) Oxycodone HCl (Oxycodone Hcl Immed Release 5 Mg Tablet) 10 mg PO Q4H PRN PRN Reason: Pain, Moderate (Pain Scale 4-6 Last Admin: 12/26/21 04:03 Dose: 10 mg Documented By: SAMUEL Pharmacy Consult (Consult Rx Vancomycin Dosing) 1 each MISCELLANE DAILY PRN PRN Reason: Consult order Pharmacy Consult (Consult Rx Perform Med Rec) 1 each MISCELLANE ONCE PRN PRN Reason: Consult order Pharmacy Consult (Consult Rx Vancomycin Dosing) 1 each MISCELLANE DAILY PRN PRN Reason: Consult order Sodium Chloride (0.9 % Sodium Chloride Flush 3 Ml Syringe) 3 ml IVFLUSH QSHIFT [facility] Last Admin: 12/25/21 20:55 Dose: 3 ml Documented By: SAMUEL Labs CBC & Chem 7: 12/25/21 05:59 12/26/21 05:38 Labs: Laboratory Results - last 24 hr 12/24/21 12/25/21 12/26/21 10:59 17:44 05:38 Estim Creat Clear Calc 53.0 Estimated GFR > 60 Vancomycin Trough 10.3 Complement C3 52 L Complement C4 15 Procedures Date of Service Date of Service: 12/26/21 Progress Note: A&P Assessment and plan (1) Chronic ulcer of leg: Status: Acute Assessment and Plan: S/P debridement seen by Wound Care continue wet to dry dressings for now daily needs good pain mgt Gabapentin restarted Time Spent With Patient Time: Total time spent is greater than 50% in coordination of care (as documented) at patient's floor/unit and/or counseling patient: Quality Stroke Does the patient have a stroke diagnosis?: No VTE Prior VTE?: No VTE Risk Level:: Medical - moderate - high VTE Device Contraindication: Treatment Not Indicated VTE Drug Contraindication: N/A - Med Ordered
[2021-12-26] MEDS: Heparin Sodium,Porcine 5,000 UNIT/ML VIAL 5000 UNIT SUBCUT ×2 (09:13→22:00)
[2021-12-26] MEDS: Gabapentin 100 MG CAPSULE 200 MG PO (09:13)
[2021-12-26] MEDS: Baclofen 10 MG TABLET PO ×2 (09:13→20:35)
[2021-12-26] MEDS: 0.9 % Sodium Chloride Flush 3 ML SYRINGE IVFLUSH ×3 (09:13→20:35)
[2021-12-26] MEDS: Acetaminophen 325 MG TABLET 975 MG PO (09:21)
--- NOTE | 2021-12-26 12:23 | PM.PNNEP ---
Subjective Subjective Date of Service: 12/26/21 Interval history: leg wound Physical Exam Vital Signs: Vital Signs: Last Vital Signs Temp 97.6 F 12/26/21 11:51 Pulse 65 12/26/21 11:51 Resp 18 12/26/21 11:51 BP 118/66 12/26/21 11:51 Pulse Ox 95 12/26/21 11:51 O2 Del Method 12/26/21 11:51 O2 Flow Rate 2.0 12/26/21 11:51 Oxygen Flow Rate 2 12/25/21 12:00 BMI result Body Mass Index 25.8 Const: General: alert and awake Orientation/consciousness: patient oriented x3 Neck: Neck: Yes supple and Yes no JVD Resp: Auscultation: clear to auscultation bilaterally, no crackles and no rhonchi Cardio: Heart sounds: S1 normal heart sound present, S2 normal heart sound present, no murmurs and no rubs GI: Palpation (GI): Soft to palpation and nontender Auscultation: normal bowel sounds Skin: Rashes: no rashes Neuro: General: patient oriented x3 Motor exam (neuro): no asterixis Objective Data Labs CBC & Chem 7: 12/25/21 05:59 12/26/21 05:38 Labs: Laboratory Results - last 24 hr 12/25/21 12/26/21 17:44 05:38 Creatinine 1.07 Estim Creat Clear Calc 53.0 Estimated GFR > 60 Vancomycin Trough 10.3 Microbiology Microbiology Results: Microbiology 12/22/21 11:41 Blood - Venous Blood Culture - Preliminary No growth after 48 hours. 12/22/21 11:41 Blood - Venous Blood Culture - Preliminary No growth after 48 hours. Procedures Date of Service Date of Service: 12/26/21 Assessment & Plan Assessment and plan (1) CKD (chronic kidney disease) stage 3, GFR 30-59 ml/min: Plan 1. Acute kidney injury, superimposed on chronic kidney disease. 2. Chronic leg ulcers. 3. Rheumatoid arthritis. 4. Acute kidney injury mostly related to volume depletion.? However, he did receive vancomycin.? Therefore, vanco induced brain injury is a possibility. Obstructive uropathy should be considered as well.? He does have underlying chronic kidney disease.? This has been related to chronic use of NSAIDs. However, with rheumatoid arthritis, he could have underlying pulmonary disease as well. Ua- No hematuria or protineria RECOMMENDATION:? .? Keep intake more than the output.? Renal function back to baseline Time Spent With Patient Time: Total time spent is greater than 50% in coordination of care (as documented) at patient's floor/unit and/or counseling patient: Progress Note: Quality Stroke Does the patient have a stroke diagnosis?: No
--- NOTE | 2021-12-26 13:55 | MHC.CLN ---
NUTRITION CONSULT FOR CELLULITIS. DIET=REGULAR. APPEARS TO BE EATING WELL, 50-100%. NO NEW NUTRITION INTERVENTIONS AT THIS TIME.
[2021-12-26] MEDS: Amoxicillin/Potassium Clav 875 MG TABLET PO (15:41)
[2021-12-26] MEDS: fentaNYL 12 MCG PATCH.TD72 TRANSDERMA (15:42)
[2021-12-26] MEDS: HYDROmorphone HCl 1 MG/ML SYRINGE IVPUSH ×2 (15:43→22:00)
--- NOTE | 2021-12-26 16:15 | MHC.CM.PN ---
EMR REVIEWED, PT NOT READY FOR D/C D/T UNCONTROLLED PAIN, NEPHROLOGY AND SURGICAL FOLLOWING, CM WILL CONT TO FOLLOW D/C NEEDS.
[2021-12-26 18:07] LABS: Prot Elec - Alpha1 0.4 g/dL (0.2-0.3); Prot Elec - Alpha2 0.6 g/dL (0.5-0.9); Prot Elec - Beta 1 0.3 g/dL (0.4-0.6); Prot Elec - Beta 2 0.3 g/dL (0.2-0.5); Prot Elec - Gamma 0.6 g/dL (0.8-1.7); Prot Elec - Total Protein 5.1 g/dL (6.1-8.1)
[2021-12-26 18:42] LABS: Vancomycin Trough 11.5 mcg/mL (10.0-20.0)
[2021-12-26] MEDS: HYDROmorphone HCl 2 MG TABLET 1 MG PO (20:35)
[2021-12-26] MEDS: Gabapentin 300 MG CAPSULE PO (20:35)
[2021-12-26] MEDS: DULoxetine HCl 20 MG CAPSULE.DR PO (20:35)
[2021-12-27] VITALS (12 sets, daily range): BP systolic 117–151; BP diastolic 66–94; PULSE 67–81; RESP 12–20; TEMP 36.4–37.2; O2SAT 90–95
[2021-12-27] MEDS: Amoxicillin/Potassium Clav 875 MG TABLET PO ×2 (02:34→14:51)
[2021-12-27] MEDS: HYDROmorphone HCl 1 MG/ML SYRINGE IVPUSH ×5 (02:34→23:16)
[2021-12-27 07:10] LABS: Creatinine Clr Calc Pharmacy 56.1; Estimated Glomerular Filt Rate > 60
[2021-12-27] MEDS: Docusate Sodium 100 MG CAPSULE PO (08:32)
[2021-12-27] MEDS: Gabapentin 300 MG CAPSULE PO ×3 (08:32→19:59)
[2021-12-27] MEDS: Baclofen 10 MG TABLET PO ×2 (08:32→19:59)
[2021-12-27] MEDS: Acetaminophen 325 MG TABLET 975 MG PO ×2 (08:33→19:59)
[2021-12-27] MEDS: HYDROmorphone HCl 2 MG TABLET 1 MG PO ×3 (08:33→19:59)
[2021-12-27] MEDS: 0.9 % Sodium Chloride Flush 3 ML SYRINGE IVFLUSH ×3 (08:33→20:01)
[2021-12-27 10:01] LABS: Myeloperoxidase Antibody <1.0 AI; Proteinase 3 PR3 Antibodies <1.0 AI
[2021-12-27] MEDS: Heparin Sodium,Porcine 5,000 UNIT/ML VIAL 5000 UNIT SUBCUT ×2 (10:03→22:42)
--- NOTE | 2021-12-27 10:16 | P.PNIM_ITS ---
Subjective Subjective Date of Service: 12/27/21 Interval History: leg wound/persistent leg pain Review of Systems denies any new complaint except leg pain seems similar to day denies jonah sob or constipation Physical Exam Vital Signs: Vital Signs: Last Vital Signs Temp 98.0 F 12/27/21 07:40 Pulse 71 12/27/21 07:40 Resp 19 12/27/21 10:03 BP 135/88 12/27/21 07:40 Pulse Ox 90 L 12/27/21 07:40 O2 Del Method 12/27/21 07:40 O2 Flow Rate 2 12/27/21 07:40 Oxygen Flow Rate 2.0 12/26/21 13:00 BMI result Body Mass Index 25.8 ?Appearance: Alert.? Oriented X3.? not in distress.? cvs: rrr, [id number] , no murmur res: clear to auscultation ,no rhonchii or wheezing abd: no rebound or guarding ,nt, bs present. ext pulses present , no cyanosis ,left leg ulcers -wrapped (leg pain similar to ) neuro: axo3 , nonfocal.? Objective Data Active Medications Acetaminophen (Acetaminophen 325 Mg Tablet) 975 mg PO Q8H PRN PRN Reason: Pain, Mild (Pain Scale 1-3) Last Admin: 12/27/21 08:33 Dose: 975 mg Documented By: NATHANIEL Albuterol Sulfate (Albuterol Sulfate 90 Mcg 8 Gm Inhaler) 1 puff INHALE RQ4H PRN PRN Reason: asthma Albuterol/Ipratropium (Albuterol/Iprat 2.5/0.5mg 3 Ml Ampul.Neb) 3 ml INHALE RQ4H WHILE AWAKE [facility] Amoxicillin/Clavulanate Potassium (Amoxicillin/Potassium Clav 875 Mg Tablet) 875 mg PO Q12H [facility] Last Admin: 12/27/21 02:34 Dose: 875 mg Documented By: LUPIS Baclofen (Baclofen 10 Mg Tablet) 10 mg PO BID [facility] Last Admin: 12/27/21 08:32 Dose: 10 mg Documented By: COTEMA Docusate Sodium (Docusate Sodium 100 Mg Capsule) 100 mg PO DAILY PRN PRN Reason: Constipation Last Admin: 12/27/21 08:32 Dose: 100 mg Documented By: NATHANIEL Doxycycline Hyclate (Doxycycline Hyclate 100 Mg Tablet) 100 mg PO Q12H [facility] Last Admin: 12/27/21 02:34 Dose: 100 mg Documented By: LUPIS Duloxetine HCl (Duloxetine Hcl 20 Mg Capsule.Dr) 20 mg PO BEDTIME [facility] Last Admin: 12/26/21 20:35 Dose: 20 mg Documented By: LUPIS Fluticasone/Vilanterol (Fluticasone/Vilanterol 100/25 Blst.W.Dev) 1 puff INHALE DAILY PRN PRN Reason: Shortness Of Breath Gabapentin (Gabapentin 300 Mg Capsule) 300 mg PO TID [facility] Heparin Sodium (Porcine) (Heparin Sodium,Porcine 5,000 Unit/Ml Vial) 5,000 unit SUBCUT Q12H [facility] Last Admin: 12/27/21 10:03 Dose: 5,000 unit Documented By: NATHANIEL Hydromorphone HCl (Hydromorphone Hcl 1 Mg/Ml Syringe) 1 mg IVPUSH Q4H PRN; Protocol PRN Reason: Pain, Severe (Pain Scale 7-10) Last Admin: 12/27/21 02:34 Dose: 1 mg Documented By: LUPIS Hydromorphone HCl (Hydromorphone Hcl 2 Mg Tablet) 1 mg PO TID [facility] Last Admin: 12/27/21 08:33 Dose: 1 mg Documented By: NATHANIEL Ondansetron HCl (Ondansetron Hcl 4 Mg/2 Ml Vial) 4 mg IVPUSH Q8H PRN PRN Reason: Nausea and Vomiting Oxycodone HCl (Oxycodone Hcl Er 10 Mg Tab.Er.12h) 10 mg PO BID [facility] Pharmacy Consult (Consult Rx Perform Med Rec) 1 each MISCELLANE ONCE PRN PRN Reason: Consult order Pharmacy Consult (Consult Rx Vancomycin Dosing) 1 each MISCELLANE DAILY PRN PRN Reason: Consult order Sodium Chloride (0.9 % Sodium Chloride Flush 3 Ml Syringe) 3 ml IVFLUSH QSHIFT [facility] Last Admin: 12/27/21 08:33 Dose: 3 ml Documented By: NATHANIEL Labs CBC & Chem 7: 12/25/21 05:59 12/27/21 06:04 Labs: Laboratory Results - last 24 hr 12/24/21 12/26/21 12/27/21 10:59 18:07 06:04 Estim Creat Clear Calc 56.1 Estimated GFR > 60 Total Protein (PEP) 5.1 L Albumin (PEP) 3.0 L Suype-8-Cjgzpufgg 0.4 H Xakuo-0-Ftvjzsrgl 0.6 Mrza-5-Nevkekzp 0.3 L Ehrq-9-Uuldifxp 0.3 Gamma Globulins 0.6 L Abnorm Protein Band 1 TNP Abnorm Protein Band 2 TNP Abnorm Protein Band 3 TNP PEP Interpretation SEE NOTE Vancomycin Trough 11.5 Proteinase 3 (PR3) Ab <1.0 Myeloperoxidase Ab <1.0 Assessment and Plan (1) Muscle spasm: Status: Acute (2) Non-healing wound of left lower extremity: Status: Acute (3) Cellulitis: Status: Acute Plan 76-year-old male with past medical history of chronic leg wound, Sjogren's disease, 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 presents to the hospital of complaints of worsening pain on his left lower leg ?nonhealing wound of left lower extremity - patient was increased erythema, pain, wound drainage of a chronic lower extrem ity ulcer - patient and at bedside reports the patient is being investigated for possible vasculitis but has not been confirm have vasculitis - no history of diabetes - afebrile but has leukocytosis trending down , blood cultures neg@48hrs on IV antibiotics-vanco,zosyn -vanco trough. normal ESR and CRP therefore osteomyelitis less likely - surgery consulted -s/psurgical debridement? day 4. patient is having difficult time with pain control-started on iv diludid ,tylenol,gabapentin,po dilaudid , po oxycontin added -encouraged for getting out even if need more pain meds bowel regimen ?cellulitis - erythema, warmth, tenderness, as well as edema up to just below the left knee - will treat with IV antibiotics, cover for staph given the drainage and skin breakdown blood cultures@48 hours - infectious disease consulted noted -d/w Id : seems improving switched to po antibiotics rheumatoid arthritis - continue home medication as well as prednisone ?COPD - not in exacerbation - continue home inhalers joshua on ckd:cr at [facility] his cr was 1.2 earlier this year nephrology -added workup-spep,immunlogical-? Proteus 3, myeloperoxidase, complement C3 and C4. DVT prophylaxis:? Heparin subQ inpatient needs: left leg ulcer s/p debridement-pain control. Quality Stroke Does the patient have a stroke diagnosis?: No VTE Prior VTE?: No VTE Risk Level:: Medical - moderate - high VTE Device Contraindication: Treatment Not Indicated VTE Drug Contraindication: N/A - Med Ordered
[2021-12-27] MEDS: Albuterol/Iprat 2.5/0.5MG 3 ML AMPUL.NEB INHALE ×3 (10:40→19:59)
--- NOTE | 2021-12-27 13:11 | PM.PNNEP ---
Subjective Subjective Date of Service: 12/28/21 Interval history: Events noted leg wound/persistent leg pain Physical Exam Vital Signs: Vital Signs: Last Vital Signs Temp 98.9 F 12/27/21 11:50 Pulse 80 12/27/21 11:50 Resp 17 12/27/21 11:50 BP 151/94 H 12/27/21 11:50 Pulse Ox 93 12/27/21 11:50 O2 Del Method 12/27/21 12:02 O2 Flow Rate 2 12/27/21 11:50 Oxygen Flow Rate 2 12/27/21 12:02 BMI result Body Mass Index 25.8 Const: General: alert and awake Orientation/consciousness: patient oriented x3 Neck: Neck: Yes supple and Yes no JVD Resp: Auscultation: clear to auscultation bilaterally, no crackles and no rhonchi Cardio: Heart sounds: S1 normal heart sound present, S2 normal heart sound present, no murmurs and no rubs GI: Palpation (GI): Soft to palpation and nontender Auscultation: normal bowel sounds Skin: Rashes: no rashes Neuro: General: patient oriented x3 Motor exam (neuro): no asterixis Objective Data Labs CBC & Chem 7: 12/25/21 05:59 12/28/21 05:59 Labs: Laboratory Results - last 24 hr 12/24/21 12/26/21 12/27/21 10:59 18:07 06:04 Creatinine 1.01 Estim Creat Clear Calc 56.1 Estimated GFR > 60 Total Protein (PEP) 5.1 L Albumin (PEP) 3.0 L Aycxg-6-Tvsnxcnph 0.4 H Qozbp-1-Phbytztpm 0.6 Uqzg-4-Xvvpvexi 0.3 L Vkhj-7-Gqwezkrb 0.3 Gamma Globulins 0.6 L Abnorm Protein Band 1 TNP Abnorm Protein Band 2 TNP Abnorm Protein Band 3 TNP PEP Interpretation SEE NOTE Vancomycin Trough 11.5 Proteinase 3 (PR3) Ab <1.0 Myeloperoxidase Ab <1.0 Microbiology Microbiology Results: Microbiology 12/22/21 11:41 Blood - Venous Blood Culture - Preliminary No growth after 48 hours. 12/22/21 11:41 Blood - Venous Blood Culture - Preliminary No growth after 48 hours. Procedures Date of Service Date of Service: 12/27/21 Assessment & Plan Assessment and plan (1) CKD (chronic kidney disease) stage 3, GFR 30-59 ml/min: Plan 1. Acute kidney injury, superimposed on chronic kidney disease. 2. Chronic leg ulcers. 3. Rheumatoid arthritis. 4. Acute kidney injury mostly related to volume depletion.? However, he did receive vancomycin.? Therefore, vanco induced brain injury is a possibility. Obstructive uropathy should be considered as well.? He does have underlying chronic kidney disease.? This has been related to chronic use of NSAIDs. However, with rheumatoid arthritis, he could have underlying pulmonary disease as well. Ua- No hematuria or protineria RECOMMENDATION:? .? Keep intake more than the output.? Renal function back to baseline Time Spent With Patient Time: Total time spent is greater than 50% in coordination of care (as documented) at patient's floor/unit and/or counseling patient: Progress Note: Quality Stroke Does the patient have a stroke diagnosis?: No
[2021-12-27] MEDS: DULoxetine HCl 20 MG CAPSULE.DR PO (19:59)
[2021-12-27] MEDS: oxyCODONE HCl ER 10 MG TAB.ER.12H PO (20:00)
[2021-12-28] VITALS (9 sets, daily range): BP systolic 112–146; BP diastolic 61–84; PULSE 73–107; RESP 15–20; TEMP 36.3–36.8; O2SAT 94–97
[2021-12-28] MEDS: Amoxicillin/Potassium Clav 875 MG TABLET PO ×2 (02:38→14:34)
[2021-12-28 07:35] LABS: Creatinine Clr Calc Pharmacy 57.8; Estimated Glomerular Filt Rate > 60
[2021-12-28] MEDS: Albuterol/Iprat 2.5/0.5MG 3 ML AMPUL.NEB INHALE ×3 (07:59→19:41)
[2021-12-28] MEDS: 0.9 % Sodium Chloride Flush 3 ML SYRINGE IVFLUSH ×3 (08:30→20:47)
[2021-12-28] MEDS: Gabapentin 300 MG CAPSULE PO ×4 (08:31→20:47)
[2021-12-28] MEDS: oxyCODONE HCl ER 10 MG TAB.ER.12H PO ×2 (08:31→20:47)
[2021-12-28] MEDS: HYDROmorphone HCl 2 MG TABLET 1 MG PO (08:31)
[2021-12-28] MEDS: Baclofen 10 MG TABLET PO ×2 (08:31→20:47)
[2021-12-28] MEDS: predniSONE 10 MG TABLET PO (08:31)
[2021-12-28] MEDS: ondansetron HCL 4 MG/2 ML VIAL IVPUSH (08:32)
[2021-12-28] MEDS: HYDROmorphone HCl 1 MG/ML SYRINGE IVPUSH ×2 (08:32→14:35)
[2021-12-28] MEDS: Acetaminophen 325 MG TABLET 975 MG PO (08:32)
[2021-12-28] MEDS: LORazepam 2 MG/ML VIAL 0.5 MG IVPUSH (08:48)
--- NOTE | 2021-12-28 11:12 | P.PNIM_ITS ---
Subjective Subjective Date of Service: 12/28/21 Interval History: leg wound/persistent leg pain Review of Systems leg pain seems improving slightly to yeterday denies any sob or constipation or fever or chills Physical Exam Vital Signs: Vital Signs: Last Vital Signs Temp 97.7 F 12/28/21 07:05 Pulse 82 12/28/21 08:00 Resp 17 12/28/21 08:32 BP 146/84 H 12/28/21 07:05 Pulse Ox 95 12/28/21 07:05 O2 Del Method 12/28/21 07:05 O2 Flow Rate 3 12/28/21 07:05 Oxygen Flow Rate 2 12/27/21 12:02 BMI result Body Mass Index 25.8 Appearance: Alert.? Oriented X3.? not in distress.? cvs: [id number], [id number] , no murmur res: clear to auscultation ,no rhonchii or wheezing abd: no rebound or guarding ,nt, bs present. ext pulses present , no cyanosis ,left leg ulcers -wrapped-lower leg ulcer area seems to be improving/graulatin(lateral side) upper medial /posterior left leg area (skin denudation -area unchanged but still very discomfortable) neuro: axo3 , nonfocal.? Const: General: alert and awake Orientation/consciousness: patient oriented x3 Neck: Neck: Yes supple and Yes no JVD Resp: Auscultation: clear to auscultation bilaterally, no crackles and no rhonchi Cardio: Heart sounds: S1 normal heart sound present, S2 normal heart sound present, no murmurs and no rubs GI: Palpation (GI): Soft to palpation and nontender Auscultation: normal bowel sounds Skin: Rashes: no rashes Neuro: General: patient oriented x3 Motor exam (neuro): no asterixis Objective Data Active Medications Acetaminophen (Acetaminophen 325 Mg Tablet) 975 mg PO Q8H PRN PRN Reason: Pain, Mild (Pain Scale 1-3) Last Admin: 12/28/21 08:32 Dose: 975 mg Documented By: COTEMA Albuterol Sulfate (Albuterol Sulfate 90 Mcg 8 Gm Inhaler) 1 puff INHALE RQ4H PRN PRN Reason: asthma Albuterol/Ipratropium (Albuterol/Iprat 2.5/0.5mg 3 Ml Ampul.Neb) 3 ml INHALE RQ4H WHILE AWAKE [facility] Last Admin: 12/28/21 07:59 Dose: 3 ml Documented By: ULRICWild Amoxicillin/Clavulanate Potassium (Amoxicillin/Potassium Clav 875 Mg Tablet) 875 mg PO Q12H [facility] Last Admin: 12/28/21 02:38 Dose: 875 mg Documented By: SAMUEL Baclofen (Baclofen 10 Mg Tablet) 10 mg PO BID [facility] Last Admin: 12/28/21 08:31 Dose: 10 mg Documented By: COTEMA Docusate Sodium (Docusate Sodium 100 Mg Capsule) 100 mg PO DAILY PRN PRN Reason: Constipation Last Admin: 12/27/21 08:32 Dose: 100 mg Documented By: NATHANIEL Doxycycline Hyclate (Doxycycline Hyclate 100 Mg Tablet) 100 mg PO Q12H [facility] Last Admin: 12/28/21 02:38 Dose: 100 mg Documented By: SAMUEL Duloxetine HCl (Duloxetine Hcl 20 Mg Capsule.Dr) 20 mg PO BEDTIME [facility] Last Admin: 12/27/21 19:59 Dose: 20 mg Documented By: SAMUEL Fluticasone/Vilanterol (Fluticasone/Vilanterol 100/25 Blst.W.Dev) 1 puff INHALE DAILY PRN PRN Reason: Shortness Of Breath Gabapentin (Gabapentin 300 Mg Capsule) 300 mg PO QID [facility] Heparin Sodium (Porcine) (Heparin Sodium,Porcine 5,000 Unit/Ml Vial) 5,000 unit SUBCUT Q12H [facility] Last Admin: 12/27/21 22:42 Dose: 5,000 unit Documented By: SAMUEL Hydromorphone HCl (Hydromorphone Hcl 1 Mg/Ml Syringe) 1 mg IVPUSH Q4H PRN; Protocol PRN Reason: Pain, Severe (Pain Scale 7-10) Last Admin: 12/28/21 08:32 Dose: 1 mg Documented By: NATHANIEL Ondansetron HCl (Ondansetron Hcl 4 Mg/2 Ml Vial) 4 mg IVPUSH Q8H PRN PRN Reason: Nausea and Vomiting Last Admin: 12/28/21 08:32 Dose: 4 mg Documented By: NATHANIEL Oxycodone HCl (Oxycodone Hcl Er 10 Mg Tab.Er.12h) 20 mg PO BID [facility] Oxycodone HCl (Oxycodone Hcl Immed Release 5 Mg Tablet) 10 mg PO Q4H PRN PRN Reason: Pain, Mild (Pain Scale 1-3) Pharmacy Consult (Consult Rx Perform Med Rec) 1 each MISCELLANE ONCE PRN PRN Reason: Consult order Pharmacy Consult (Consult Rx Vancomycin Dosing) 1 each MISCELLANE DAILY PRN PRN Reason: Consult order Polyethylene Glycol (Polyethylene Glycol 3350 17 Gm Powd.Pack) 17 gm PO DAILY [facility] Last Admin: 12/28/21 08:11 Dose: Not Given Documented By: NATHANIEL Non-Admin Reason: Patient Refused Prednisone (Prednisone 10 Mg Tablet) 10 mg PO DAILY [facility]; Taper Stop: 01/08/22 08:59 Last Admin: 12/28/21 08:31 Dose: 10 mg Documented By: NATHANIEL Sodium Chloride (0.9 % Sodium Chloride Flush 3 Ml Syringe) 3 ml IVFLUSH QSHIFT [facility] Last Admin: 12/28/21 08:30 Dose: 3 ml Documented By: NATHANIEL Labs CBC & Chem 7: 12/25/21 05:59 12/28/21 05:59 Labs: Laboratory Results - last 24 hr 12/28/21 05:59 Estim Creat Clear Calc 57.8 Estimated GFR > 60 Microbiology Microbiology Results: Microbiology 12/22/21 11:41 Blood Culture - Final Blood - Venous No growth after 5 days. 12/22/21 11:41 Blood Culture - Final Blood - Venous No growth after 5 days. Assessment and Plan (1) Non-healing wound of left lower extremity: Status: Acute (2) Chronic ulcer of leg: Status: Acute (3) Cellulitis: Status: Acute Plan 76-year-old male with past medical history of chronic leg wound, Sjogren's disease, 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 presents to the hospital of complaints of worsening pain on his left lower leg ?nonhealing wound of left lower extremity - patient was increased erythema, pain, wound drainage of a chronic lower extremity ulcer - patient and at bedside reports the patient is being investigated for possible vasculitis but has not been confirm have vasculitis - no history of diabetes - afebrile but has leukocytosis trending down , blood cultures neg@48hrs on IV antibiotics-vanco,zosyn -vanco trough. normal ESR and CRP therefore osteomyelitis less likely - surgery consulted -s/psurgical debridement? day 6. pain control-continue tylenol , oxycontin adjusted to 20 mg bid ,oxycodone added also , gabapentin adjusted 300 mg qid, also iv diludid coverage for intermittent pain/dressing change. bowel regimen ?cellulitis - erythema, warmth, tenderness, as well as edema up to just below the left knee. seems imprvin,?blood cultures@48 hours - infectious disease consulted noted -d/w Id : seems improving switched to po antibiotics rheumatoid arthritis - continue home medication as well as prednisone ?COPD - not in exacerbation - continue home inhalers joshua on ckd:cr at [facility] his cr was 1.2 earlier this year nephrology-spep,immunlogical-? Proteus 3, myeloperoxidase, complement C3 and C4. DVT prophylaxis:? Heparin subQ inpatient needs: left leg ulcer s/p debridement-pain control. Quality Stroke Does the patient have a stroke diagnosis?: No VTE Prior VTE?: No VTE Risk Level:: Medical - moderate - high VTE Device Contraindication: Treatment Not Indicated VTE Drug Contraindication: N/A - Med Ordered
[2021-12-28] MEDS: Heparin Sodium,Porcine 5,000 UNIT/ML VIAL 5000 UNIT SUBCUT ×2 (14:34→23:08)
[2021-12-28] MEDS: oxyCODONE HCl Immed Release 5 MG TABLET 10 MG PO (14:35)
[2021-12-28] MEDS: DULoxetine HCl 20 MG CAPSULE.DR PO (20:47)
[2021-12-29] VITALS (11 sets, daily range): BP systolic 93–117; BP diastolic 61–78; PULSE 76–106; RESP 16–20; TEMP 36.4–36.9; O2SAT 2–97
[2021-12-29] MEDS: Amoxicillin/Potassium Clav 875 MG TABLET PO ×2 (01:51→14:30)
[2021-12-29] MEDS: HYDROmorphone HCl 1 MG/ML SYRINGE IVPUSH ×3 (04:52→14:31)
[2021-12-29] MEDS: Albuterol/Iprat 2.5/0.5MG 3 ML AMPUL.NEB INHALE ×4 (08:06→19:53)
[2021-12-29] MEDS: Heparin Sodium,Porcine 5,000 UNIT/ML VIAL 5000 UNIT SUBCUT ×2 (09:11→23:33)
[2021-12-29] MEDS: Gabapentin 300 MG CAPSULE PO ×4 (09:12→20:38)
[2021-12-29] MEDS: predniSONE 10 MG TABLET PO (09:12)
[2021-12-29] MEDS: Baclofen 10 MG TABLET PO ×2 (09:13→20:37)
[2021-12-29] MEDS: oxyCODONE HCl ER 10 MG TAB.ER.12H PO ×2 (09:13→20:37)
[2021-12-29] MEDS: 0.9 % Sodium Chloride Flush 3 ML SYRINGE IVFLUSH ×3 (09:14→20:38)
--- NOTE | 2021-12-29 10:11 | P.PNIM_ITS ---
Subjective Subjective Date of Service: 12/29/21 Interval History: leg wound/persistent leg pain Review of Systems denies any sob or constipation or fever or chills Physical Exam Vital Signs: Vital Signs: Last Vital Signs Temp 98.5 F 12/29/21 07:45 Pulse 76 12/29/21 08:08 Resp 18 12/29/21 08:08 BP 112/78 12/29/21 07:45 Pulse Ox 96 12/29/21 07:45 O2 Del Method 12/29/21 07:45 O2 Flow Rate 2.5 12/29/21 07:45 Oxygen Flow Rate 2 12/27/21 12:02 BMI result Body Mass Index 25.8 Appearance: Alert.? Oriented X3.? not in distress.? cvs: rrr, [id number] , no murmur res: clear to auscultation ,no rhonchii or wheezing abd: no rebound or guarding ,nt, bs present. ext pulses present , no cyanosis ,left leg ulcers -wrapped-lower leg ulcer area seems to be improving/graulatin(lateral side) upper medial /posterior left leg area (skin denudation -area unchanged but still very discomfortable) neuro: axo3 , nonfocal.? Objective Data Active Medications Acetaminophen (Acetaminophen 325 Mg Tablet) 975 mg PO Q8H PRN PRN Reason: Pain, Mild (Pain Scale 1-3) Last Admin: 12/28/21 08:32 Dose: 975 mg Documented By: NATHANIEL Albuterol Sulfate (Albuterol Sulfate 90 Mcg 8 Gm Inhaler) 1 puff INHALE RQ4H PRN PRN Reason: asthma Albuterol/Ipratropium (Albuterol/Iprat 2.5/0.5mg 3 Ml Ampul.Neb) 3 ml INHALE RQ4H WHILE AWAKE [facility] Last Admin: 12/29/21 08:06 Dose: 3 ml Documented By: SHIRLEY Amoxicillin/Clavulanate Potassium (Amoxicillin/Potassium Clav 875 Mg Tablet) 875 mg PO Q12H [facility] Last Admin: 12/29/21 01:51 Dose: 875 mg Documented By: LUPIS Baclofen (Baclofen 10 Mg Tablet) 10 mg PO BID [facility] Last Admin: 12/29/21 09:13 Dose: 10 mg Documented By: LYSZ Docusate Sodium (Docusate Sodium 100 Mg Capsule) 100 mg PO DAILY PRN PRN Reason: Constipation Last Admin: 12/27/21 08:32 Dose: 100 mg Documented By: NATHANIEL Doxycycline Hyclate (Doxycycline Hyclate 100 Mg Tablet) 100 mg PO Q12H [facility] Last Admin: 12/29/21 01:51 Dose: 100 mg Documented By: LUPIS Duloxetine HCl (Duloxetine Hcl 20 Mg Capsule.Dr) 20 mg PO BEDTIME [facility] Last Admin: 12/28/21 20:47 Dose: 20 mg Documented By: LUPIS Fluticasone/Vilanterol (Fluticasone/Vilanterol 100/25 Blst.W.Dev) 1 puff INHALE DAILY PRN PRN Reason: Shortness Of Breath Gabapentin (Gabapentin 300 Mg Capsule) 300 mg PO QID [facility] Last Admin: 12/29/21 09:12 Dose: 300 mg Documented By: TATIANNA Heparin Sodium (Porcine) (Heparin Sodium,Porcine 5,000 Unit/Ml Vial) 5,000 unit SUBCUT Q12H [facility] Last Admin: 12/29/21 09:11 Dose: 5,000 unit Documented By: TATIANNA Hydromorphone HCl (Hydromorphone Hcl 1 Mg/Ml Syringe) 1 mg IVPUSH Q4H PRN; Protocol PRN Reason: Pain, Severe (Pain Scale 7-10) Last Admin: 12/29/21 09:03 Dose: 1 mg Documented By: TATIANNA Ondansetron HCl (Ondansetron Hcl 4 Mg/2 Ml Vial) 4 mg IVPUSH Q8H PRN PRN Reason: Nausea and Vomiting Last Admin: 12/28/21 08:32 Dose: 4 mg Documented By: NATHANIEL Oxycodone HCl (Oxycodone Hcl Immed Release 5 Mg Tablet) 10 mg PO Q4H PRN PRN Reason: Pain, Mild (Pain Scale 1-3) Last Admin: 12/28/21 14:35 Dose: 10 mg Documented By: NATHANIEL Oxycodone HCl (Oxycodone Hcl Er 10 Mg Tab.Er.12h) 10 mg PO BID [facility] Last Admin: 12/29/21 09:13 Dose: 10 mg Documented By: TATIANNA Pharmacy Consult (Consult Rx Perform Med Rec) 1 each MISCELLANE ONCE PRN PRN Reason: Consult order Pharmacy Consult (Consult Rx Vancomycin Dosing) 1 each MISCELLANE DAILY PRN PRN Reason: Consult order Polyethylene Glycol (Polyethylene Glycol 3350 17 Gm Powd.Pack) 17 gm PO DAILY [facility] Last Admin: 12/29/21 09:14 Dose: Not Given Documented By: TATIANNA Non-Admin Reason: Patient Refused Prednisone (Prednisone 10 Mg Tablet) 10 mg PO DAILY [facility]; Taper Stop: 01/08/22 08:59 Last Admin: 12/29/21 09:12 Dose: 10 mg Documented By: TATIANNA Sodium Chloride (0.9 % Sodium Chloride Flush 3 Ml Syringe) 3 ml IVFLUSH QSHIFT [facility] Last Admin: 12/29/21 09:14 Dose: 3 ml Documented By: TATIANNA Labs CBC & Chem 7: 12/25/21 05:59 12/29/21 06:14 Assessment and Plan (1) Non-healing wound of left lower extremity: Status: Acute Plan 76-year-old male with past medical history of chronic leg wound, Sjogren's disease, 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 presents to the hospital of complaints of worsening pain on his left lower leg ?nonhealing wound of left lower extremity - patient was increased erythema, pain, wound drainage of a chronic lower extremity ulcer - patient and at bedside reports the patient is being investigated for p ossible vasculitis but has not been confirm have vasculitis - no history of diabetes - afebrile but has leukocytosis trending down , blood cultures neg@48hrs intialy on IV antibiotics-vanco,zosyn-switched to po antibiotics. normal ESR and CRP therefore osteomyelitis less likely - surgery consulted -s/psurgical debridement? day 7. ?pain control -after dressing still has significant pain -continue tylenol , oxycontin adjusted to 20 mg bid ,oxycodone added also , gabapentin adjusted 300 mg qid, also iv diludid coverage for intermittent pain/dressing change. bowel regimen surgery follow up ?cellulitis - erythema, warmth, tenderness, as well as edema up to just below the left knee. seems imprvin,?blood cultures@48 hours - infectious disease consulted noted -d/w Id : seems improving switched to po antibiotics rheumatoid arthritis - continue home medication as well as prednisone ?COPD - not in exacerbation - continue home inhalers joshua on ckd:cr at [facility] his cr was 1.2 earlier this year nephrology-spep,immunlogical-? Proteus 3, myeloperoxidase, complement C3 and C4. DVT prophylaxis:? Heparin subQ inpatient needs: left leg ulcer s/p debridement-pain control. Quality Stroke Does the patient have a stroke diagnosis?: No VTE Prior VTE?: No VTE Risk Level:: Medical - moderate - high VTE Device Contraindication: Treatment Not Indicated VTE Drug Contraindication: N/A - Med Ordered
[2021-12-29 10:35] LABS: Creatinine Clr Calc Pharmacy 50.6; Estimated Glomerular Filt Rate > 60
--- NOTE | 2021-12-29 11:40 | HO.WOUNDCONS ---
History of Present Illness Data of Consult Service Date: 12/29/21 Requesting physician: Hernan Hastings Primary Care Provider: MD MARINO White Reason for consult: dressing recommendation Asked by Dr. Hastings on Wednesday to update dressing recommendations because patient is having pain with wet to dry dressing changes. Over the weekend, the patient was transitioned from fentanyl and IV hydromorphone to oxcodone. Pain management has been involved as requested on , but his outpatient pain management plan is not clearly understood. Additionally, he has had surgical debridement of the left leg wounds since admission, with post surgical dressings managed by surgery. Primary role of consultation is to suggest dressings for these complicated wounds that may be vasculitic in nature, further confounded by rheumatologic history. [facility] Medical History Chronic ulcer of leg CKD (chronic kidney disease) stage 3, GFR 30-59 ml/min COPD (chronic obstructive pulmonary disease) Elevated serum creatinine HTN (hypertension) Rheumatoid arthritis Sjogren's disease Vasculitis Functional capacity: independent ambulation Family History Other No family history of coronary artery disease Surgical History History of hernia repair History of left knee replacement Social History Household Members: Spouse Housing: House Do you presently have visiting nurse or other home services: No Alcohol intake: current Alcohol intake frequency: former alcohol drinker Patient Tobacco Use Status: Former Tobacco user Tobacco use type: Cigarette Years Smoked: quit 2019 e-Cigarette/Vaping Use: Never Used Advance Directives Date on File: 12/23/21 service: No Current occupational status: retired Cognitive needs: Yes (cane) Hearing needs: No Vision needs: Yes (Pt wear glasses. ) Meds Allergies Allergy/AdvReac Type Severity Reaction Status Date / Time No Known Allergies Allergy Verified 12/22/21 11:15 [No Known Allergies*] Active Medications: Current Medications Acetaminophen (Acetaminophen 325 Mg Tablet) 975 mg PO Q8H PRN PRN Reason: Pain, Mild (Pain Scale 1-3) Last Admin: 12/28/21 08:32 Dose: 975 mg Albuterol Sulfate (Albuterol Sulfate 90 Mcg 8 Gm Inhaler) 1 puff INHALE RQ4H PRN PRN Reason: asthma Albuterol/Ipratropium (Albuterol/Iprat 2.5/0.5mg 3 Ml Ampul.Neb) 3 ml INHALE RQ4H WHILE AWAKE [facility] Last Admin: 12/29/21 11:39 Dose: 3 ml Amoxicillin/Clavulanate Potassium (Amoxicillin/Potassium Clav 875 Mg Tablet) 875 mg PO Q12H [facility] Last Admin: 12/29/21 01:51 Dose: 875 mg Baclofen (Baclofen 10 Mg Tablet) 10 mg PO BID [facility] Last Admin: 12/29/21 09:13 Dose: 10 mg Docusate Sodium (Docusate Sodium 100 Mg Capsule) 100 mg PO DAILY PRN PRN Reason: Constipation Last Admin: 12/27/21 08:32 Dose: 100 mg Doxycycline Hyclate (Doxycycline Hyclate 100 Mg Tablet) 100 mg PO Q12H [facility] Last Admin: 12/29/21 01:51 Dose: 100 mg Duloxetine HCl (Duloxetine Hcl 20 Mg Capsule.Dr) 20 mg PO BEDTIME [facility] Last Admin: 12/28/21 20:47 Dose: 20 mg Fluticasone/Vilanterol (Fluticasone/Vilanterol 100/25 Blst.W.Dev) 1 puff INHALE DAILY PRN PRN Reason: Shortness Of Breath Gabapentin (Gabapentin 300 Mg Capsule) 300 mg PO QID [facility] Last Admin: 12/29/21 09:12 Dose: 300 mg Heparin Sodium (Porcine) (Heparin Sodium,Porcine 5,000 Unit/Ml Vial) 5,000 unit SUBCUT Q12H [facility] Last Admin: 12/29/21 09:11 Dose: 5,000 unit Hydromorphone HCl (Hydromorphone Hcl 1 Mg/Ml Syringe) 1 mg IVPUSH Q4H PRN; Protocol PRN Reason: Pain, Severe (Pain Scale 7-10) Last Admin: 12/29/21 09:03 Dose: 1 mg Ondansetron HCl (Ondansetron Hcl 4 Mg/2 Ml Vial) 4 mg IVPUSH Q8H PRN PRN Reason: Nausea and Vomiting Last Admin: 12/28/21 08:32 Dose: 4 mg Oxycodone HCl (Oxycodone Hcl Immed Release 5 Mg Tablet) 10 mg PO Q4H PRN PRN Reason: Pain, Mild (Pain Scale 1-3) Last Admin: 12/28/21 14:35 Dose: 10 mg Oxycodone HCl (Oxycodone Hcl Er 10 Mg Tab.Er.12h) 10 mg PO BID [facility] Last Admin: 12/29/21 09:13 Dose: 10 mg Pharmacy Consult (Consult Rx Perform Med Rec) 1 each MISCELLANE ONCE PRN PRN Reason: Consult order Pharmacy Consult (Consult Rx Vancomycin Dosing) 1 each MISCELLANE DAILY PRN PRN Reason: Consult order Polyethylene Glycol (Polyethylene Glycol 3350 17 Gm Powd.Pack) 17 gm PO DAILY [facility] Last Admin: 12/29/21 09:14 Dose: Not Given Prednisone (Prednisone 10 Mg Tablet) 10 mg PO DAILY [facility]; Taper Stop: 01/08/22 08:59 Last Admin: 12/29/21 09:12 Dose: 10 mg Sodium Chloride (0.9 % Sodium Chloride Flush 3 Ml Syringe) 3 ml IVFLUSH QSHIFT [facility] Last Admin: 12/29/21 09:14 Dose: 3 ml Home Medications Medication Instructions Recorded Confirmed Last Taken Type umeclidinium 62.5 mcg-vilanterol 1 inh inhalation DAILY PRN 10/15/21 12/22/21 Unknown History 25 mcg/actuation powdr for Shortness Of Breath inhalation (Anoro Ellipta) acetaminophen 500 mg tablet 1,000 mg PO Q6H PRN Pain (Scale 10/30/21 12/22/21 12/22/21 History (Tylenol Extra Strength) Score 1-3) albuterol sulfate 90 mcg/actuation 2 puff inhalation Q6H PRN 11/28/21 12/22/21 Unknown History aerosol inhaler (ProAir HFA) Shortness Of Breath tocilizumab 80 mg/4 mL (20 mg/mL) 0 mg IV Q30D 11/28/21 12/22/21 12/02/21 History intravenous solution (Actemra) duloxetine 20 mg capsule,delayed 20 mg PO BEDTIME 12/19/21 12/22/21 12/21/21 History release prednisone 10 mg tablet See Taper PO DAILY 12/19/21 12/22/21 12/21/21 History Physical Exam Vital Signs and Narrative: Vital Signs: Last Vital Signs Temp 98.5 F 12/29/21 07:45 Pulse 76 12/29/21 08:08 Resp 18 12/29/21 08:08 BP 112/78 12/29/21 07:45 Pulse Ox 96 12/29/21 07:45 O2 Del Method 12/29/21 07:45 O2 Flow Rate 2.5 12/29/21 07:45 Oxygen Flow Rate 2 12/27/21 12:02 BMI result Body Mass Index 25.8 The patient is resting comfortably when I enter the room. He does not object to left leg wound examination. Without manipulation of any kind to this left leg, he winces and acutely withdraws from the examiner (me) as I remove the adhesive tape from the dressing which does not contact the wounds directly. He proceeds to tell me that I need scissors to remove the bandage. I reassure him that only the roller guaze will be removed by unwrapping. He tolerates this without difficulty. The inferior medial lower leg dressings fall off spontaneously with this manuever revealing relatively healthy, pink granular wound bed. No erythema, edema or streaking is seen. This is a remarkable improvement compared to pre admission wound assessment that promted ED visit last week. The proximal medial left lower leg wounds present more of a challenge. This is because denuded nonviable epithelial tissue is peeling from the patient's intact dermis. I would recommend debridement of this with tenotomy scissors which again, should not pose severe pain, if any because the tissue is nonviable. It appears to me that the nonstick Xeroform actually dried out and is adhered to this nonviable epithelium. When it is removed with or without irrigation, it is tearing the epithelial tissue as it approximates intact tissue which surely causes pain. For this reason, a small square is left in place for debridement at a later time. Additionally, with a closer look at this more proximal aspect of the left leg, there is significantly less edema and erythema compared to pre-admission appearance. The patient tolerated this encounter without any difficulty. See plan. His entered the room as a visitor upon completion the dressing change and called the wound clinic to express how she is upset that the patient was not premedicated prior to this encounter. I did discuss with the patient that he cannot go home on IV pain medication. His wounds are remarkably improved since admission and his narcotic requirement should reduce as his course improves. I find his reaction to pain to be out of proportion to the objective findings of his wound. That is not to say that dressing changes are not painful to the patient, clearly they are painful as described above. Wounds associated with vasculitis are generally painful. It is not clear to me if the patient has been properly counseled in terms of the use of narcotics for this type of pain management as they relate to indications, usage and limitations. No pain with dressing changes may not be a realistic expectation for these complicated wounds with unclear primary etiology. Results Labs CBC and Chem 7: 12/25/21 05:59 12/29/21 06:14 Labs: Laboratory Results - last 24 hr 12/29/21 06:14 Estim Creat Clear Calc 50.6 Estimated GFR > 60 Assessment and Plan (1) Chronic ulcer of leg: Plan In regards to the request for consultation regarding dressing changes, it is in the patient's best interest to use irrigated calcium alginate with silver cut to fit the open areas of inferior left leg wounds which will spontaneously fall off after removal of roller gauze and any other type of topical wrap if desired. I applied this with roller gauze today without causing discomfort to the patient. Unfortunately, the adhered Xeroform over nonviable epithelium creates more difficulty. I would recommend removal of the nonviable epithelial tissue which could be done at the bedside by surgery to include removal of Xeroform. Once definitive open area, free of debris is defined, then irrigated calcium alginate with silver to these open wounds would be the least painful way to proceed with dressing changes. He would benefit from zinc oxide to the periwound unless there is no contraindication otherwise. Would also recommend on an outpatient basis that the patient receive proper pain management counseling in terms of goals, limitations and indications for the use of pain medication. Happy to see that he is gradually transitioning to oral pain medications, as his course shows objective findings of improvement compared to one week ago by way of less inflammation, less edema and no signs of infection. If we have dermatology or rheumatology available for consultation in this inpatient setting, this may be helpful in terms of solidifying the wound etiology. We had planned to pursue this on an outpatient basis in the setting of potential vasculitis. Might also consider toxic epidermal necrolysis from new medication given blistery appearance of more proximal area on left leg if not a already considered. Dressings using irrigated calcium alginate with silver can be q 48 hours and prn drainage.
[2021-12-29] MEDS: oxyCODONE HCl Immed Release 5 MG TABLET 10 MG PO (11:58)
--- NOTE | 2021-12-29 13:50 | P.PNGS_ITS ---
Subjective Subjective Date of Service: 12/29/21 Interval history: He felt that he had been getting better with regards to his pain control over the weekend Dressing changes were being done by the nurses and he says that this was becoming more tolerable with pain meds However, this morning, he said a dressing change was done by the wound PA and he says that he felt that he was not given pain medications so he had severe pain during the dressing change He says that this is a setback for him today after improvement with the past few days. Physical Exam Vital Signs: Vital Signs: Last Vital Signs Temp 97.8 F 12/29/21 11:40 Pulse 95 12/29/21 11:40 Resp 16 12/29/21 11:40 BP 100/69 12/29/21 11:40 Pulse Ox 97 12/29/21 11:40 O2 Del Method 12/29/21 11:40 O2 Flow Rate 2.5 12/29/21 11:40 Oxygen Flow Rate 2 12/27/21 12:02 BMI result Body Mass Index 25.8 Const: General: no acute distress Resp: Effort & Inspection: normal respiratory effort Extrem: Other: Dressings in place, dry, foot edema is much improved Objective Data Active Medications Acetaminophen (Acetaminophen 325 Mg Tablet) 975 mg PO Q8H PRN PRN Reason: Pain, Mild (Pain Scale 1-3) Last Admin: 12/28/21 08:32 Dose: 975 mg Documented By: NATHANIEL Albuterol Sulfate (Albuterol Sulfate 90 Mcg 8 Gm Inhaler) 1 puff INHALE RQ4H PRN PRN Reason: asthma Albuterol/Ipratropium (Albuterol/Iprat 2.5/0.5mg 3 Ml Ampul.Neb) 3 ml INHALE RQ4H WHILE AWAKE [facility] Last Admin: 12/29/21 11:39 Dose: 3 ml Documented By: SHIRLEY Amoxicillin/Clavulanate Potassium (Amoxicillin/Potassium Clav 875 Mg Tablet) 875 mg PO Q12H [facility] Last Admin: 12/29/21 01:51 Dose: 875 mg Documented By: LUPIS Baclofen (Baclofen 10 Mg Tablet) 10 mg PO BID [facility] Last Admin: 12/29/21 09:13 Dose: 10 mg Documented By: LYSHomero Docusate Sodium (Docusate Sodium 100 Mg Capsule) 100 mg PO DAILY PRN PRN Reason: Constipation Last Admin: 12/27/21 08:32 Dose: 100 mg Documented By: NATHANIEL Doxycycline Hyclate (Doxycycline Hyclate 100 Mg Tablet) 100 mg PO Q12H [facility] Last Admin: 12/29/21 01:51 Dose: 100 mg Documented By: LUPIS Duloxetine HCl (Duloxetine Hcl 20 Mg Capsule.Dr) 20 mg PO BEDTIME [facility] Last Admin: 12/28/21 20:47 Dose: 20 mg Documented By: LUPIS Fluticasone/Vilanterol (Fluticasone/Vilanterol 100/25 Blst.W.Dev) 1 puff INHALE DAILY PRN PRN Reason: Shortness Of Breath Gabapentin (Gabapentin 300 Mg Capsule) 300 mg PO QID [facility] Last Admin: 12/29/21 09:12 Dose: 300 mg Documented By: TATIANNA Heparin Sodium (Porcine) (Heparin Sodium,Porcine 5,000 Unit/Ml Vial) 5,000 unit SUBCUT Q12H [facility] Last Admin: 12/29/21 09:11 Dose: 5,000 unit Documented By: TATIANNA Hydromorphone HCl (Hydromorphone Hcl 1 Mg/Ml Syringe) 1 mg IVPUSH Q4H PRN; Protocol PRN Reason: Pain, Severe (Pain Scale 7-10) Last Admin: 12/29/21 09:03 Dose: 1 mg Documented By: TATIANNA Ondansetron HCl (Ondansetron Hcl 4 Mg/2 Ml Vial) 4 mg IVPUSH Q8H PRN PRN Reason: Nausea and Vomiting Last Admin: 12/28/21 08:32 Dose: 4 mg Documented By: NATHANIEL Oxycodone HCl (Oxycodone Hcl Immed Release 5 Mg Tablet) 10 mg PO Q4H PRN PRN Reason: Pain, Mild (Pain Scale 1-3) Last Admin: 12/29/21 11:58 Dose: 10 mg Documented By: TATIANNA Oxycodone HCl (Oxycodone Hcl Er 10 Mg Tab.Er.12h) 10 mg PO BID [facility] Last Admin: 12/29/21 09:13 Dose: 10 mg Documented By: TATIANNA Pharmacy Consult (Consult Rx Perform Med Rec) 1 each MISCELLANE ONCE PRN PRN Reason: Consult order Pharmacy Consult (Consult Rx Vancomycin Dosing) 1 each MISCELLANE DAILY PRN PRN Reason: Consult order Polyethylene Glycol (Polyethylene Glycol 3350 17 Gm Powd.Pack) 17 gm PO DAILY [facility] Last Admin: 12/29/21 09:14 Dose: Not Given Documented By: TATIANNA Non-Admin Reason: Patient Refused Prednisone (Prednisone 10 Mg Tablet) 10 mg PO DAILY [facility]; Taper Stop: 01/08/22 08:59 Last Admin: 12/29/21 09:12 Dose: 10 mg Documented By: TATIANNA Sodium Chloride (0.9 % Sodium Chloride Flush 3 Ml Syringe) 3 ml IVFLUSH QSHIFT [facility] Last Admin: 12/29/21 09:14 Dose: 3 ml Documented By: TATIANNA Labs CBC & Chem 7: 12/25/21 05:59 12/29/21 06:14 Labs: Laboratory Results - last 24 hr 12/29/21 06:14 Estim Creat Clear Calc 50.6 Estimated GFR > 60 Procedures Date of Service Date of Service: 12/29/21 Progress Note: A&P Assessment and plan (1) Chronic ulcer of leg: Status: Acute Assessment and Plan: Status post debridement I had planned on doing his dressing change but had been done earlier by the [facility] PA I will by tomorrow again to do the dressing change He understands the plan Continues to require pain meds with dressing changes specially today The goal is for him to be able to tolerate dressing changes at home Time Spent With Patient Time: Total time spent is greater than 50% in coordination of care (as documented) at patient's floor/unit and/or counseling patient: Quality Stroke Does the patient have a stroke diagnosis?: No VTE Prior VTE?: No VTE Risk Level:: Medical - moderate - high VTE Device Contraindication: Treatment Not Indicated VTE Drug Contraindication: N/A - Med Ordered
--- NOTE | 2021-12-29 16:32 | MHC.CM.PN ---
yoly rn field case manager ntoe electronic emdical record reviewed along with case disucussed with [facility] wound cons called they changed the wound dresing today and made recomendations (please see therir note ), general surgeorn plans on changing thr dresisng tomorrow patient still continues on iv abx and iv analgeics for pain mangement discharge plan is for patient to be able to tolerate dresisng chnages at home with vna and follow up as outpaitent with [facility]
[2021-12-29] MEDS: DULoxetine HCl 20 MG CAPSULE.DR PO (20:38)
[2021-12-30] VITALS (10 sets, daily range): BP systolic 104–138; BP diastolic 63–87; PULSE 82–100; RESP 14–20; TEMP 36.3–37.1; O2SAT 92–99
[2021-12-30] MEDS: Amoxicillin/Potassium Clav 875 MG TABLET PO ×2 (02:00→13:05)
[2021-12-30] MEDS: HYDROmorphone HCl 1 MG/ML SYRINGE IVPUSH ×2 (03:33→11:11)
[2021-12-30] MEDS: oxyCODONE HCl Immed Release 5 MG TABLET 10 MG PO ×3 (04:17→13:42)
[2021-12-30 06:58] LABS: Hematocrit 41.5 % (42.0-52.0); Hemoglobin 13.4 g/dl (14.0-18.0); Mean Corpuscular HGB Conc 32.3 g/dl (31.0-36.0); Mean Corpuscular Hemoglobin 30.2 pg (27.0-33.0); Mean Corpuscular Volume 93.7 fL (80.0-98.0); Platelet Count 161 X10*3/uL (160-400); Red Blood Count 4.43 X10*6/uL (4.60-5.80); Red Cell Distribution Width 13.8 % (11.0-16.0); White Blood Count 8.4 X10*3/uL (4.8-10.8)
[2021-12-30 07:17] LABS: Creatinine Clr Calc Pharmacy 47.6; Estimated Glomerular Filt Rate 59
[2021-12-30 07:22] LABS: Anion Gap 11 (12-20); Blood Urea Nitrogen 17 mg/dL (9-16); Carbon Dioxide 27 mmol/L (22-29); Chloride 107 mmol/L (96-108); Creatinine Clr Calc Pharmacy 48.4; Estimated Glomerular Filt Rate > 60; Glucose Random 118 mg/dL (60-115); Potassium 4.4 mmol/L (3.3-5.1); Sodium 141 mmol/L (135-145)
[2021-12-30] MEDS: oxyCODONE HCl ER 10 MG TAB.ER.12H PO ×2 (08:25→20:03)
[2021-12-30] MEDS: polyethylene glycoL 3350 17 GM POWD.PACK PO (08:25)
[2021-12-30] MEDS: Gabapentin 300 MG CAPSULE PO ×4 (08:25→20:03)
[2021-12-30] MEDS: Baclofen 10 MG TABLET PO ×2 (08:26→20:02)
[2021-12-30] MEDS: predniSONE 10 MG TABLET PO (08:26)
[2021-12-30] MEDS: 0.9 % Sodium Chloride Flush 3 ML SYRINGE IVFLUSH ×3 (08:26→20:02)
[2021-12-30] MEDS: Albuterol/Iprat 2.5/0.5MG 3 ML AMPUL.NEB INHALE ×2 (08:54→21:00)
[2021-12-30] MEDS: Acetaminophen 325 MG TABLET 975 MG PO ×2 (09:38→17:18)
[2021-12-30] MEDS: Heparin Sodium,Porcine 5,000 UNIT/ML VIAL 5000 UNIT SUBCUT ×2 (09:39→23:37)
--- NOTE | 2021-12-30 09:58 | P.PNIM_ITS ---
Subjective Subjective Date of Service: 12/30/21 <Aurora Puentes NP - Last Filed: 12/30/21 14:46> 01/18/22 <Michele Silver MD - Last Filed: 01/18/22 14:47> Review of Systems Follow up LLE non-healing wound better today with pain resting in bed <Aurora Puentes NP - Last Filed: 12/30/21 14:46> Physical Exam Vital Signs: Vital Signs: Last Vital Signs Temp 98.1 F 12/30/21 07:49 Pulse 82 12/30/21 08:54 Resp 14 12/30/21 08:54 BP 135/83 12/30/21 08:34 Pulse Ox 93 12/30/21 08:34 O2 Del Method 12/30/21 07:49 O2 Flow Rate 2 12/30/21 07:49 Oxygen Flow Rate 2 12/29/21 13:00 BMI result Body Mass Index 25.8 <Aurora Puentes NP - Last Filed: 12/30/21 14:46> Appearing in no acute distress lung sounds are clear to auscultation heart regular rate rhythm, clear S1, S2 positive bowel sounds, abdomen is soft, nontender neuro patient is alert x3, no focal deficits LLE dressing intact, wound not visualized <Aurora Puentes NP - Last Filed: 12/30/21 14:46> Objective Data Active Medications Acetaminophen (Acetaminophen 325 Mg Tablet) 975 mg PO Q8H PRN PRN Reason: Pain, Mild (Pain Scale 1-3) Last Admin: 12/30/21 09:38 Dose: 975 mg Documented By: VALERIE Albuterol Sulfate (Albuterol Sulfate 90 Mcg 8 Gm Inhaler) 1 puff INHALE RQ4H PRN PRN Reason: asthma Albuterol/Ipratropium (Albuterol/Iprat 2.5/0.5mg 3 Ml Ampul.Neb) 3 ml INHALE RQ4H WHILE AWAKE [facility] Last Admin: 12/30/21 08:54 Dose: 3 ml Documented By: SHIRLEY Amoxicillin/Clavulanate Potassium (Amoxicillin/Potassium Clav 875 Mg Tablet) 875 mg PO Q12H [facility] Last Admin: 12/30/21 02:00 Dose: 875 mg Documented By: LUPIS Baclofen (Baclofen 10 Mg Tablet) 10 mg PO BID [facility] Last Admin: 12/30/21 08:26 Dose: 10 mg Documented By: VALERIE Docusate Sodium (Docusate Sodium 100 Mg Capsule) 100 mg PO DAILY PRN PRN Reason: Constipation Last Admin: 12/27/21 08:32 Dose: 100 mg Documented By: COTLEEANNA Doxycycline Hyclate (Doxycycline Hyclate 100 Mg Tablet) 100 mg PO Q12H [facility] Last Admin: 12/30/21 02:00 Dose: 100 mg Documented By: LUPIS Duloxetine HCl (Duloxetine Hcl 20 Mg Capsule.Dr) 20 mg PO BEDTIME [facility] Last Admin: 12/29/21 20:38 Dose: 20 mg Documented By: LUPIS Fluticasone/Vilanterol (Fluticasone/Vilanterol 100/25 Blst.W.Dev) 1 puff INHALE DAILY PRN PRN Reason: Shortness Of Breath Gabapentin (Gabapentin 300 Mg Capsule) 300 mg PO QID [facility] Last Admin: 12/30/21 08:25 Dose: 300 mg Documented By: VALERIE Heparin Sodium (Porcine) (Heparin Sodium,Porcine 5,000 Unit/Ml Vial) 5,000 unit SUBCUT Q12H [facility] Last Admin: 12/30/21 09:39 Dose: 5,000 unit Documented By: VALERIE Hydromorphone HCl (Hydromorphone Hcl 1 Mg/Ml Syringe) 1 mg IVPUSH Q4H PRN; Pr otocol PRN Reason: Pain, Severe (Pain Scale 7-10) Last Admin: 12/30/21 03:33 Dose: 1 mg Documented By: LUPIS Ondansetron HCl (Ondansetron Hcl 4 Mg/2 Ml Vial) 4 mg IVPUSH Q8H PRN PRN Reason: Nausea and Vomiting Last Admin: 12/28/21 08:32 Dose: 4 mg Documented By: NATHANIEL Oxycodone HCl (Oxycodone Hcl Immed Release 5 Mg Tablet) 10 mg PO Q4H PRN PRN Reason: Pain, Mild (Pain Scale 1-3) Last Admin: 12/30/21 09:41 Dose: 10 mg Documented By: VALERIE Oxycodone HCl (Oxycodone Hcl Er 10 Mg Tab.Er.12h) 10 mg PO BID [facility] Last Admin: 12/30/21 08:25 Dose: 10 mg Documented By: VALERIE Pharmacy Consult (Consult Rx Perform Med Rec) 1 each MISCELLANE ONCE PRN PRN Reason: Consult order Polyethylene Glycol (Polyethylene Glycol 3350 17 Gm Powd.Pack) 17 gm PO DAILY [facility] Last Admin: 12/30/21 08:25 Dose: 17 gm Documented By: VALERIE Prednisone (Prednisone 10 Mg Tablet) 10 mg PO DAILY [facility]; Taper Stop: 01/08/22 08:59 Last Admin: 12/30/21 08:26 Dose: 10 mg Documented By: VALERIE Sodium Chloride (0.9 % Sodium Chloride Flush 3 Ml Syringe) 3 ml IVFLUSH QSHIFT [facility] Last Admin: 12/30/21 08:26 Dose: 3 ml Documented By: VALERIE <Aurora Puentes NP - Last Filed: 12/30/21 14:46> Labs CBC & Chem 7: : 01/18/22 06:21 01/18/22 06:21 <Aurora Puentes NP - Last Filed: 12/30/21 14:46> Labs: Laboratory Results - last 24 hr 12/29/21 12/30/21 12/30/21 06:14 06:12 06:12 MCV 93.7 MCH 30.2 MCHC 32.3 RDW 13.8 Plt Count 161 MPV 10.0 Absolute Nucleated RBC 0.000 Nucleated RBC % (auto) 0.0 Anion Gap Estim Creat Clear Calc 50.6 47.6 Estimated GFR > 60 59 Random Glucose Calcium 12/30/21 06:12 MCV MCH MCHC RDW Plt Count MPV Absolute Nucleated RBC Nucleated RBC % (auto) Anion Gap 11 L Estim Creat Clear Calc 48.4 Estimated GFR > 60 Random Glucose 118 H D Calcium 9.0 D <Aurora Puentes NP - Last Filed: 12/30/21 14:46> Assessment and Plan (1) Non-healing wound of left lower extremity: Status: Acute <Aurora Puentes NP - Last Filed: 12/30/21 14:46> Assessment and Plan: 76-year-old male with past medical history of chronic leg wound, Sjogren's disease, 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 dressings with calcium alginate and silver Cellulitis. erythema, warmth, tenderness, as well as edema up to just below the left knee. blood cultures@48 hours ID following rheumatoid arthritis continue home medication as well as prednisone COPD, not in exacerbation continue home inhalers DEACON GFR >60. baseline his cr was 1.2 earlier this year DVT prophylaxis Heparin subQ Attending Dr. Silver Full code Patient requires continued hospitalization for left leg ulcer s/p debridement IV pain control. <Aurora Puentes NP - Last Filed: 12/30/21 14:46> Quality Stroke Does the patient have a stroke diagnosis?: No <Aurora Puentes NP - Last Filed: 12/30/21 14:46> VTE Prior VTE?: No <Aurora Puentes NP - Last Filed: 12/30/21 14:46> VTE Risk Level:: Medical - moderate - high <Aurora Puentes NP - Last Filed: 12/30/21 14:46> VTE Device Contraindication: Treatment Not Indicated <Aurora Puentes NP - Last Filed: 12/30/21 14:46> VTE Drug Contraindication: N/A - Med Ordered <Aurora Puentes NP - Last Filed: 12/30/21 14:46>
--- NOTE | 2021-12-30 13:00 | P.PNGS_ITS ---
Subjective Subjective Date of Service: 12/30/21 Interval history: no new complaints still with same jolting pain on left foot and leg Physical Exam Vital Signs: Vital Signs: Last Vital Signs Temp 97.5 F 12/30/21 11:25 Pulse 100 12/30/21 11:25 Resp 18 12/30/21 11:25 BP 104/63 12/30/21 11:25 Pulse Ox 93 12/30/21 11:25 O2 Del Method 12/30/21 11:25 O2 Flow Rate 2 12/30/21 11:25 Oxygen Flow Rate 2 12/29/21 13:00 BMI result Body Mass Index 25.8 Const: General: no acute distress Resp: Effort & Inspection: normal respiratory effort Extrem: Other: dressings taken down: swelling on left lower leg and foot much improved; ulcer on left leg clean, granulating well; skin tear on posterior calf noted Objective Data Active Medications Acetaminophen (Acetaminophen 325 Mg Tablet) 975 mg PO Q8H PRN PRN Reason: Pain, Mild (Pain Scale 1-3) Last Admin: 12/30/21 09:38 Dose: 975 mg Documented By: VALERIE Albuterol Sulfate (Albuterol Sulfate 90 Mcg 8 Gm Inhaler) 1 puff INHALE RQ4H PRN PRN Reason: asthma Albuterol/Ipratropium (Albuterol/Iprat 2.5/0.5mg 3 Ml Ampul.Neb) 3 ml INHALE RQ4H WHILE AWAKE [facility] Last Admin: 12/30/21 12:19 Dose: Not Given Documented By: SHIRLEY Non-Admin Reason: Patient Refused Amoxicillin/Clavulanate Potassium (Amoxicillin/Potassium Clav 875 Mg Tablet) 875 mg PO Q12H [facility] Last Admin: 12/30/21 02:00 Dose: 875 mg Documented By: LUPIS Baclofen (Baclofen 10 Mg Tablet) 10 mg PO BID [facility] Last Admin: 12/30/21 08:26 Dose: 10 mg Documented By: VALERIE Docusate Sodium (Docusate Sodium 100 Mg Capsule) 100 mg PO DAILY PRN PRN Reason: Constipation Last Admin: 12/27/21 08:32 Dose: 100 mg Documented By: COTEMA Doxycycline Hyclate (Doxycycline Hyclate 100 Mg Tablet) 100 mg PO Q12H [facility] Last Admin: 12/30/21 02:00 Dose: 100 mg Documented By: LUPIS Duloxetine HCl (Duloxetine Hcl 20 Mg Capsule.Dr) 20 mg PO BEDTIME [facility] Last Admin: 12/29/21 20:38 Dose: 20 mg Documented By: LUPIS Fluticasone/Vilanterol (Fluticasone/Vilanterol 100/25 Blst.W.Dev) 1 puff INHALE DAILY PRN PRN Reason: Shortness Of Breath Gabapentin (Gabapentin 300 Mg Capsule) 300 mg PO QID [facility] Last Admin: 12/30/21 08:25 Dose: 300 mg Documented By: VALERIE Heparin Sodium (Porcine) (Heparin Sodium,Porcine 5,000 Unit/Ml Vial) 5,000 unit SUBCUT Q12H [facility] Last Admin: 12/30/21 09:39 Dose: 5,000 unit Documented By: VALERIE Hydromorphone HCl (Hydromorphone Hcl 1 Mg/Ml Syringe) 1 mg IVPUSH Q4H PRN; Protocol PRN Reason: Pain, Severe (Pain Scale 7-10) Last Admin: 12/30/21 11:11 Dose: 1 mg Documented By: VALERIE Ondansetron HCl (Ondansetron Hcl 4 Mg/2 Ml Vial) 4 mg IVPUSH Q8H PRN PRN Reason: Nausea and Vomiting Last Admin: 12/28/21 08:32 Dose: 4 mg Documented By: COTLEEANNA Oxycodone HCl (Oxycodone Hcl Immed Release 5 Mg Tablet) 10 mg PO Q4H PRN PRN Reason: Pain, Mild (Pain Scale 1-3) Last Admin: 12/30/21 09:41 Dose: 10 mg Documented By: VALERIE Oxycodone HCl (Oxycodone Hcl Er 10 Mg Tab.Er.12h) 10 mg PO BID [facility] Last Admin: 12/30/21 08:25 Dose: 10 mg Documented By: VALERIE Pharmacy Consult (Consult Rx Perform Med Rec) 1 each MISCELLANE ONCE PRN PRN Reason: Consult order Polyethylene Glycol (Polyethylene Glycol 3350 17 Gm Powd.Pack) 17 gm PO DAILY [facility] Last Admin: 12/30/21 08:25 Dose: 17 gm Documented By: VALERIE Prednisone (Prednisone 10 Mg Tablet) 10 mg PO DAILY [facility]; Taper Stop: 01/08/22 08:59 Last Admin: 12/30/21 08:26 Dose: 10 mg Documented By: VALERIE Sodium Chloride (0.9 % Sodium Chloride Flush 3 Ml Syringe) 3 ml IVFLUSH QSHIFT [facility] Last Admin: 12/30/21 08:26 Dose: 3 ml Documented By: VALERIE Labs CBC & Chem 7: 12/30/21 06:12 12/30/21 06:12 Labs: Laboratory Results - last 24 hr 12/30/21 12/30/21 12/30/21 06:12 06:12 06:12 MCV 93.7 MCH 30.2 MCHC 32.3 RDW 13.8 Plt Count 161 MPV 10.0 Absolute Nucleated RBC 0.000 Nucleated RBC % (auto) 0.0 Anion Gap 11 L Estim Creat Clear Calc 47.6 48.4 Estimated GFR 59 > 60 Random Glucose 118 H D Calcium 9.0 D Procedures Date of Service Date of Service: 12/30/21 Progress Note: A&P Assessment and plan (1) Chronic ulcer of leg: Status: Acute Assessment and Plan: debrided last week dressings changed - sliver ag applied to ulcer; xeroform applied to skin tear on posterior calf; lef and foot wrapped in Kerlix pain mgt still requiring IV pain meds with dressing change restart Fentanyl patch? wound much improved STR once pain control better Time Spent With Patient Time: Total time spent is greater than 50% in coordination of care (as documented) at patient's floor/unit and/or counseling patient: Quality Stroke Does the patient have a stroke diagnosis?: No VTE Prior VTE?: No VTE Risk Level:: Medical - moderate - high VTE Device Contraindication: Treatment Not Indicated VTE Drug Contraindication: N/A - Med Ordered
--- NOTE | 2021-12-30 14:55 | MHC.CM.PN ---
NURSE PAPER SEALER NOTE ELECTRONIC MEDICAL RECORD REVIEWED ALONG WITH CASE DISUCSSED WITH STAFF NURSE , MET WITH PATIENT AFTER DISCUSSING CASE WITH THE HOSPITLIAT ASSIGHNED TO PATIENT . IT HAS BEEN RECOMENDED THAT HE FO TO SHORT TERM REHAB FOR PHYSICAL THERAPY AND WOUND DRESSING CARE AND RYAN I REVIEWED WITH THEM THE LIST OF [facility]MEDICARE FACILITIES , HE AND HIS ARE RELATIVELY NEW TO [facility] AND WANTE DTO TAKE THE PRINT OUT AND INVESTIGAET THESE FACILTIES MORE , I ALSO GAVE THEM THE CNTACT OF MEDICARE GOV,[employer] AND ENCORAGED THEM TO CLAL FACILTIIES IF THEY HAD SPECIFIC QUESTIONS AT THIS TIME BITH HE AND HIS VANDANAIULD NOT GIVE ME PERMISSION TO INATED ANY REFERRALS FOR SHORT TERM REHAB T/C TO HIS LYDIA BELLUCA [phone] ASKING FOR CIPY OF [facility] PROXY AND COPY OF VACINATION CARD to please bring to [facility] dso we could make a copy as this was need for the [facility] facility (message left on her visce mail ) discharge plan str for physical therpay and wound dressing chamnges and monitoring patient and to still give lead case manager facilities they have chosen
[2021-12-30] MEDS: fentaNYL 12 MCG PATCH.TD72 TRANSDERMA (15:20)
[2021-12-30] MEDS: DULoxetine HCl 20 MG CAPSULE.DR PO (20:03)
[2021-12-31] VITALS (10 sets, daily range): BP systolic 106–143; BP diastolic 63–84; PULSE 77–98; RESP 16–22; TEMP 36.2–37.3; O2SAT 92–97
[2021-12-31] MEDS: Amoxicillin/Potassium Clav 875 MG TABLET PO ×2 (01:15→12:33)
[2021-12-31] MEDS: Albuterol/Iprat 2.5/0.5MG 3 ML AMPUL.NEB INHALE ×4 (07:33→20:04)
[2021-12-31] MEDS: HYDROmorphone HCl 1 MG/ML SYRINGE IVPUSH ×2 (08:21→11:38)
[2021-12-31] MEDS: predniSONE 10 MG TABLET PO (08:24)
[2021-12-31] MEDS: Gabapentin 300 MG CAPSULE PO ×4 (08:24→21:28)
[2021-12-31] MEDS: oxyCODONE HCl ER 10 MG TAB.ER.12H PO ×2 (08:24→21:27)
[2021-12-31] MEDS: 0.9 % Sodium Chloride Flush 3 ML SYRINGE IVFLUSH ×2 (08:25→16:44)
[2021-12-31] MEDS: Baclofen 10 MG TABLET PO ×2 (08:25→21:28)
--- NOTE | 2021-12-31 08:35 | MHC.CM.PN ---
[facility] HAS CHOSEN IN ORDER OF PREFERENCE [facility] REFERRALS PLACED.
--- NOTE | 2021-12-31 09:40 | P.PNIM_ITS ---
Subjective Subjective Date of Service: 12/31/21 Review of Systems Follow up LLE non-healing wound better today with pain resting in bed Physical Exam Vital Signs: Vital Signs: Last Vital Signs Temp 98.1 F 12/31/21 07:42 Pulse 83 12/31/21 07:42 Resp 18 12/31/21 07:42 BP 121/77 12/31/21 07:42 Pulse Ox 95 12/31/21 07:42 O2 Del Method 12/31/21 07:42 O2 Flow Rate 2 12/31/21 07:42 Oxygen Flow Rate 2 12/29/21 13:00 BMI result Body Mass Index 25.8 Appearing in no acute distress head is normocephalic atraumatic eyes pupils are PERRLA sclera is anicteric mouth throat mucous membranes are intact and moist neck is supple no lymphadenopathy, no JVD noted lung sounds are clear to auscultation heart regular rate rhythm, clear S1, S2 positive bowel sounds, abdomen is soft, nontender neuro patient is alert x3, no focal deficits Objective Data Active Medications Acetaminophen (Acetaminophen 325 Mg Tablet) 975 mg PO Q8H PRN PRN Reason: Pain, Mild (Pain Scale 1-3) Last Admin: 12/30/21 17:18 Dose: 975 mg Documented By: VALERIE Albuterol Sulfate (Albuterol Sulfate 90 Mcg 8 Gm Inhaler) 1 puff INHALE RQ4H PRN PRN Reason: asthma Albuterol/Ipratropium (Albuterol/Iprat 2.5/0.5mg 3 Ml Ampul.Neb) 3 ml INHALE RQ4H WHILE AWAKE [facility] Last Admin: 12/31/21 07:33 Dose: 3 ml Documented By: BLASCDionna Amoxicillin/Clavulanate Potassium (Amoxicillin/Potassium Clav 875 Mg Tablet) 875 mg PO Q12H [facility] Last Admin: 12/31/21 01:15 Dose: 875 mg Documented By: MORRINDionna Baclofen (Baclofen 10 Mg Tablet) 10 mg PO BID [facility] Last Admin: 12/31/21 08:25 Dose: 10 mg Documented By: DESIRE Docusate Sodium (Docusate Sodium 100 Mg Capsule) 100 mg PO DAILY PRN PRN Reason: Constipation Last Admin: 12/27/21 08:32 Dose: 100 mg Documented By: HO.COTEMA Doxycycline Hyclate (Doxycycline Hyclate 100 Mg Tablet) 100 mg PO Q12H [facility] Last Admin: 12/31/21 01:14 Dose: 100 mg Documented By: GUILLERMORINDionna Duloxetine HCl (Duloxetine Hcl 20 Mg Capsule.Dr) 20 mg PO BEDTIME [facility] Last Admin: 12/30/21 20:03 Dose: 20 mg Documented By: SILVIA Fentanyl (Fentanyl 12 Mcg Patch.Td72) 12 mcg TRANSDERMA Q72H [facility] Last Admin: 12/30/21 15:20 Dose: 12 mcg Documented By: VALERIE Fluticasone/Vilanterol (Fluticasone/Vilanterol 100/25 Blst.W.Dev) 1 puff INHALE DAILY PRN PRN Reason: Shortness Of Breath Gabapentin (Gabapentin 300 Mg Capsule) 300 mg PO QID [facility] Last Admin: 12/31/21 08:24 Dose: 300 mg Documented By: DESIRE Heparin Sodium (Porcine) (Heparin Sodium,Porcine 5,000 Unit/Ml Vial) 5,000 unit SUBCUT Q12H [facility] Last Admin: 12/30/21 23:37 Dose: 5,000 unit Documented By: SILVIA Hydromorphone HCl (Hydromorphone Hcl 1 Mg/Ml Syringe) 1 mg IVPUSH Q4H PRN; Protocol PRN Reason: Pain, Severe (Pain Scale 7-10) Last Admin: 12/31/21 08:21 Dose: 1 mg Documented By: DESIRE Ondansetron HCl (Ondansetron Hcl 4 Mg/2 Ml Vial) 4 mg IVPUSH Q8H PRN PRN Reason: Nausea and Vomiting Last Admin: 12/28/21 08:32 Dose: 4 mg Documented By: NATHANIEL Oxycodone HCl (Oxycodone Hcl Immed Release 5 Mg Tablet) 10 mg PO Q4H PRN PRN Reason: Pain, Mild (Pain Scale 1-3) Last Admin: 12/30/21 13:42 Dose: 10 mg Documented By: VALERIE Oxycodone HCl (Oxycodone Hcl Er 10 Mg Tab.Er.12h) 10 mg PO BID [facility] Last Admin: 12/31/21 08:24 Dose: 10 mg Documented By: DESIRE Pharmacy Consult (Consult Rx Perform Med Rec) 1 each MISCELLANE ONCE PRN PRN Reason: Consult order Polyethylene Glycol (Polyethylene Glycol 3350 17 Gm Powd.Pack) 17 gm PO DAILY [facility] Last Admin: 12/31/21 08:25 Dose: Not Given Documented By: DESIRE Non-Admin Reason: Patient Refused Prednisone (Prednisone 10 Mg Tablet) 10 mg PO DAILY [facility]; Taper Stop: 01/08/22 08:59 Last Admin: 12/31/21 08:24 Dose: 10 mg Documented By: DESIRE Sodium Chloride (0.9 % Sodium Chloride Flush 3 Ml Syringe) 3 ml IVFLUSH QSHIFT [facility] Last Admin: 12/31/21 08:25 Dose: 3 ml Documented By: DESIRE Labs CBC & Chem 7: 12/30/21 06:12 12/30/21 06:12 Assessment and Plan (1) Non-healing wound of left lower extremity: Status: Acute Plan 76-year-old male with past medical history of chronic leg wound, Sjogren's disease, 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 presents to the hospital of complaints of worsening pain on his left lower leg Nonhealing wound of left lower extremity increased erythema, pain, wound drainage of a chronic lower extremity ulcer blood cultures neg@48hrs Initially on IV antibiotics- vanco,zosyn now on doxy and augmentin Day #6 normal ESR and CRP and no osteomyelitis on CT s/p surgical debridement Pain control -after dressing still has significant pain -continue tylenol, oxycontin adjusted to 20 mg bid, oxycodone added also, gabapentin adjusted 300 mg qid, Fentanyl patch also iv dilaudid coverage for intermittent pain/dressing change. dressings with calcium alginate and silver Cellulitis. Improving erythema, warmth, tenderness, as well as edema up to just below the left knee. blood cultures@48 hours ID following rheumatoid arthritis continue home medication as well as prednisone COPD, not in exacerbation continue home inhalers DEACON GFR >60. baseline his cr was 1.2 earlier this year DVT prophylaxis Heparin subQ Attending Dr. Silver Full code DISPO. Possible discharge tomorrow to [facility] if medically stable Patient requires continued hospitalization for left leg ulcer s/p debridement IV pain control. Quality Stroke Does the patient have a stroke diagnosis?: No VTE Prior VTE?: No VTE Risk Level:: Medical - moderate - high VTE Device Contraindication: Treatment Not Indicated VTE Drug Contraindication: N/A - Med Ordered
[2021-12-31] MEDS: Heparin Sodium,Porcine 5,000 UNIT/ML VIAL 5000 UNIT SUBCUT ×2 (11:38→21:28)
[2021-12-31] MEDS: oxyCODONE HCl Immed Release 5 MG TABLET 10 MG PO (12:33)
[2021-12-31] MEDS: Acetaminophen 325 MG TABLET 975 MG PO (13:38)
--- NOTE | 2021-12-31 13:41 | P.PNGS_ITS ---
Subjective Subjective Date of Service: 12/31/21 Interval history: No new complaints Has had periodic pain in the left leg Physical Exam Vital Signs: Vital Signs: Last Vital Signs Temp 98.2 F 12/31/21 11:39 Pulse 87 12/31/21 11:39 Resp 16 12/31/21 11:39 BP 106/63 12/31/21 11:39 Pulse Ox 92 12/31/21 11:39 O2 Del Method 12/31/21 11:39 O2 Flow Rate 1 12/31/21 11:39 Oxygen Flow Rate 2 12/29/21 13:00 BMI result Body Mass Index 25.8 Const: General: no acute distress Resp: Effort & Inspection: normal respiratory effort Cardio: Rate: regular rate Extrem: Other: I removed his dressings carefully after giving him IV pain meds The debridement site appears clean There was note of some skin tears the back of the calf There is note of an area of dry scabbing on the posterior calf as well I applied silver alginate to the debrided area Xeroform dressings on the posterior I wrapped the entire foot and leg with thick Kerlix He did have significant pain after dressing changes I do not feel that he is ready to be discharged to rehab because of his pain level I will re-evaluate him tomorrow Objective Data Active Medications Acetaminophen (Acetaminophen 325 Mg Tablet) 975 mg PO Q8H PRN PRN Reason: Pain, Mild (Pain Scale 1-3) Last Admin: 12/31/21 13:38 Dose: 975 mg Documented By: DESIRE Albuterol Sulfate (Albuterol Sulfate 90 Mcg 8 Gm Inhaler) 1 puff INHALE RQ4H PRN PRN Reason: asthma Albuterol/Ipratropium (Albuterol/Iprat 2.5/0.5mg 3 Ml Ampul.Neb) 3 ml INHALE RQ4H WHILE AWAKE [facility] Last Admin: 12/31/21 11:26 Dose: 3 ml Documented By: JENIFFER Amoxicillin/Clavulanate Potassium (Amoxicillin/Potassium Clav 875 Mg Tablet) 875 mg PO Q12H [facility] Last Admin: 12/31/21 12:33 Dose: 875 mg Documented By: DESIRE Baclofen (Baclofen 10 Mg Tablet) 10 mg PO BID [facility] Last Admin: 12/31/21 08:25 Dose: 10 mg Documented By: DESIRE Docusate Sodium (Docusate Sodium 100 Mg Capsule) 100 mg PO DAILY PRN PRN Reason: Constipation Last Admin: 12/27/21 08:32 Dose: 100 mg Documented By: COTLEEANNA Doxycycline Hyclate (Doxycycline Hyclate 100 Mg Tablet) 100 mg PO Q12H [facility] Last Admin: 12/31/21 12:33 Dose: 100 mg Documented By: DESIRE Duloxetine HCl (Duloxetine Hcl 20 Mg Capsule.) 20 mg PO BEDTIME [facility] Last Admin: 12/30/21 20:03 Dose: 20 mg Documented By: MORRINL Fentanyl (Fentanyl 12 Mcg Patch.Td72) 12 mcg TRANSDERMA Q72H [facility] Last Admin: 12/30/21 15:20 Dose: 12 mcg Documented By: NGENOAL Fluticasone/Vilanterol (Fluticasone/Vilanterol 100/25 Blst.W.Dev) 1 puff INHALE DAILY PRN PRN Reason: Shortness Of Breath Gabapentin (Gabapentin 300 Mg Capsule) 300 mg PO QID [facility] Last Admin: 12/31/21 12:33 Dose: 300 mg Documented By: DESIRE Heparin Sodium (Porcine) (Heparin Sodium,Porcine 5,000 Unit/Ml Vial) 5,000 unit SUBCUT Q12H [facility] Last Admin: 12/31/21 11:38 Dose: 5,000 unit Documented By: DESIRE Hydromorphone HCl (Hydromorphone Hcl 1 Mg/Ml Syringe) 1 mg IVPUSH Q4H PRN; Protocol PRN Reason: Pain, Severe (Pain Scale 7-10) Last Admin: 12/31/21 11:38 Dose: 1 mg Documented By: DESIRE Comments: give early per dr. gibson for dressing change Ondansetron HCl (Ondansetron Hcl 4 Mg/2 Ml Vial) 4 mg IVPUSH Q8H PRN PRN Reason: Nausea and Vomiting Last Admin: 12/28/21 08:32 Dose: 4 mg Documented By: NATHANIEL Oxycodone HCl (Oxycodone Hcl Immed Release 5 Mg Tablet) 10 mg PO Q4H PRN PRN Reason: Pain, Mild (Pain Scale 1-3) Last Admin: 12/31/21 12:33 Dose: 10 mg Documented By: DESIRE Oxycodone HCl (Oxycodone Hcl Er 10 Mg Tab.Er.12h) 10 mg PO BID [facility] Last Admin: 12/31/21 08:24 Dose: 10 mg Documented By: DESIRE Pharmacy Consult (Consult Rx Perform Med Rec) 1 each MISCELLANE ONCE PRN PRN Reason: Consult order Polyethylene Glycol (Polyethylene Glycol 3350 17 Gm Powd.Pack) 17 gm PO DAILY [facility] Last Admin: 12/31/21 08:25 Dose: Not Given Documented By: DESIRE Non-Admin Reason: Patient Refused Prednisone (Prednisone 10 Mg Tablet) 10 mg PO DAILY [facility]; Taper Stop: 01/08/22 08:59 Last Admin: 12/31/21 08:24 Dose: 10 mg Documented By: DESIRE Sodium Chloride (0.9 % Sodium Chloride Flush 3 Ml Syringe) [facility] Admin: 12/31/21 08:25 Dose: 3 ml Documented By: DESIRE Labs CBC & Chem 7: 12/30/21 06:12 12/30/21 06:12 Procedures Date of Service Date of Service: 12/31/21 Progress Note: A&P Time Spent With Patient Time: Total time spent is greater than 50% in coordination of care (as documented) at patient's floor/unit and/or counseling patient: Quality Stroke Does the patient have a stroke diagnosis?: No VTE Prior VTE?: No VTE Risk Level:: Medical - moderate - high VTE Device Contraindication: Treatment Not Indicated VTE Drug Contraindication: N/A - Med Ordered
[2021-12-31] MEDS: LORazepam 2 MG/ML VIAL 1 MG IVPUSH (14:16)
--- NOTE | 2021-12-31 15:30 | MHC.CM.PN ---
Addendum entered by Dedra Jones 01/01/22 12:43: [facility] OFFERED. THEY WILL FOLLOW FOR DC. PLAN IS FOR PATIENT TO TRANSFER TO OR. Original Note: PER CONVERSATION WITH (IN ROOM) REFERRALS NOW TO [facility] PLAN IS DC WEDNESDAY [facility] STILL FIRST CHOICE. PATIENT IS NOT RECEIVING HIS MONTHLY INFUSION ( PLAN IS TO START AT [facility] PROVIDER) PATIENT ORIGINALLY GOING TO [place] FOR THIS SERVICE AND IS STARTING PROCESS FOR LOCAL SERVICE
[2021-12-31] MEDS: DULoxetine HCl 20 MG CAPSULE.DR PO (21:28)
[2022-01-01] VITALS (7 sets, daily range): BP systolic 107–146; BP diastolic 65–96; PULSE 68–88; RESP 16–18; TEMP 36.4–37.4; O2SAT 92–96
[2022-01-01] MEDS: 0.9 % Sodium Chloride Flush 3 ML SYRINGE IVFLUSH ×4 (00:32→19:53)
[2022-01-01] MEDS: Amoxicillin/Potassium Clav 875 MG TABLET PO ×2 (01:25→13:00)
[2022-01-01] MEDS: Gabapentin 300 MG CAPSULE PO ×4 (08:39→19:53)
[2022-01-01] MEDS: oxyCODONE HCl ER 10 MG TAB.ER.12H PO ×2 (08:39→19:52)
[2022-01-01] MEDS: predniSONE 10 MG TABLET PO (08:39)
[2022-01-01] MEDS: Baclofen 10 MG TABLET PO ×2 (08:39→19:52)
[2022-01-01] MEDS: oxyCODONE HCl Immed Release 5 MG TABLET 10 MG PO ×2 (08:44→17:13)
[2022-01-01] MEDS: Acetaminophen 325 MG TABLET 975 MG PO ×2 (08:44→17:13)
[2022-01-01] MEDS: Heparin Sodium,Porcine 5,000 UNIT/ML VIAL 5000 UNIT SUBCUT ×2 (11:34→21:53)
[2022-01-01] MEDS: HYDROmorphone HCl 1 MG/ML SYRINGE IVPUSH (11:35)
--- NOTE | 2022-01-01 13:06 | P.PNGS_ITS ---
Subjective Subjective Date of Service: 01/01/22 Interval history: Pain now mostly on the posterior calf proximally No new complaints Physical Exam Vital Signs: Vital Signs: Last Vital Signs Temp 98.4 F 01/01/22 11:38 Pulse 76 01/01/22 11:38 Resp 18 01/01/22 11:38 BP 138/91 H 01/01/22 11:38 Pulse Ox 93 01/01/22 11:38 O2 Del Method 01/01/22 11:38 O2 Flow Rate 2 01/01/22 11:38 Oxygen Flow Rate 2 12/29/21 13:00 BMI result Body Mass Index 25.8 Const: General: no acute distress Resp: Effort & Inspection: normal respiratory effort Cardio: Rate: regular rate Extrem: Other: Left leg - dressings taken down after giving him; pain medications by IV and oral; the debrided site on the lateral aspect of the left lower leg is healing well and this appears clean. However posteriorly, there was note of a thick eschar on the more proximal part of the leg measuring about 3.2 cm in diameter. This is also tender to touch Objective Data Active Medications Acetaminophen (Acetaminophen 325 Mg Tablet) 975 mg PO Q8H PRN PRN Reason: Pain, Mild (Pain Scale 1-3) Last Admin: 01/01/22 08:44 Dose: 975 mg Documented By: DESIRE Albuterol Sulfate (Albuterol Sulfate 90 Mcg 8 Gm Inhaler) 1 puff INHALE RQ4H PRN PRN Reason: asthma Albuterol/Ipratropium (Albuterol/Iprat 2.5/0.5mg 3 Ml Ampul.Neb) 3 ml INHALE RQ4H WHILE AWAKE [facility] Last Admin: 01/01/22 12:15 Dose: Not Given Documented By: SHIRLEY Non-Admin Reason: Patient Refused Amoxicillin/Clavulanate Potassium (Amoxicillin/Potassium Clav 875 Mg Tablet) 875 mg PO Q12H [facility] Last Admin: 01/01/22 13:00 Dose: 875 mg Documented By: DESIRE Baclofen (Baclofen 10 Mg Tablet) 10 mg PO BID [facility] Last Admin: 01/01/22 08:39 Dose: 10 mg Documented By: DESIRE Docusate Sodium (Docusate Sodium 100 Mg Capsule) 100 mg PO DAILY PRN PRN Reason: Constipation Last Admin: 12/27/21 08:32 Dose: 100 mg Documented By: NATHANIEL Doxycycline Hyclate (Doxycycline Hyclate 100 Mg Tablet) 100 mg PO Q12H [facility] Last Admin: 01/01/22 13:00 Dose: 100 mg Documented By: DESIRE Duloxetine HCl (Duloxetine Hcl 20 Mg Capsule.Dr) 20 mg PO BEDTIME [facility] Last Admin: 12/31/21 21:28 Dose: 20 mg Documented By: ARTEMIO Fluticasone/Vilanterol (Fluticasone/Vilanterol 100/25 Blst.W.Dev) 1 puff INHALE DAILY PRN PRN Reason: Shortness Of Breath Gabapentin (Gabapentin 300 Mg Capsule) 300 mg PO QID [facility] Last Admin: 01/01/22 11:34 Dose: 300 mg Documented By: DESIRE Heparin Sodium (Porcine) (Heparin Sodium,Porcine 5,000 Unit/Ml Vial) 5,000 unit SUBCUT Q12H [facility] Last Admin: 01/01/22 11:34 Dose: 5,000 unit Documented By: DESIRE Hydromorphone HCl (Hydromorphone Hcl 1 Mg/Ml Syringe) 1 mg IVPUSH Q4H PRN; Protocol PRN Reason: Pain, Severe (Pain Scale 7-10) Last Admin: 01/01/22 11:35 Dose: 1 mg Documented By: DESIRE Ondansetron HCl (Ondansetron Hcl 4 Mg/2 Ml Vial) 4 mg IVPUSH Q8H PRN PRN Reason: Nausea and Vomiting Last Admin: 12/28/21 08:32 Dose: 4 mg Documented By: NATHANIEL Oxycodone HCl (Oxycodone Hcl Immed Release 5 Mg Tablet) 10 mg PO Q4H PRN PRN Reason: Pain, Mild (Pain Scale 1-3) Last Admin: 01/01/22 08:44 Dose: 10 mg Documented By: DESIRE Oxycodone HCl (Oxycodone Hcl Er 10 Mg Tab.Er.12h) 10 mg PO BID [facility] Last Admin: 01/01/22 08:39 Dose: 10 mg Documented By: DESIRE Pharmacy Consult (Consult Rx Perform Med Rec) 1 each MISCELLANE ONCE PRN PRN Reason: Consult order Polyethylene Glycol (Polyethylene Glycol 3350 17 Gm Powd.Pack) 17 gm PO DAILY [facility] Last Admin: 01/01/22 08:40 Dose: Not Given Documented By: DESIRE Non-Admin Reason: Patient Refused Prednisone (Prednisone 10 Mg Tablet) 10 mg PO DAILY [facility]; Taper Stop: 01/08/22 08:59 Last Admin: 01/01/22 08:39 Dose: 10 mg Documented By: DESIRE Sodium Chloride (0.9 % Sodium Chloride Flush 3 Ml Syringe) 3 ml IVFLUSH QSHIFT [facility] Last Admin: 01/01/22 11:35 Dose: 3 ml Documented By: DESIRE Labs CBC & Chem 7: 12/30/21 06:12 12/30/21 06:12 Procedures Date of Service Date of Service: 01/01/22 Progress Note: A&P Assessment and plan (1) Eschar of lower leg: Status: Acute Assessment and Plan: He has a new area with a thick eschar as described above on the posterior calf. He complains of pain on this area and this seems to be is predominant issue for him. I will schedule him for excision debridement of this eschar tomorrow in the OR under anesthesia. I reviewed with him the technique of this procedure. I explained the risks including but not limited to bleeding and infections as well as benefits and alternatives He has given consent. His family was around during the discussion. Time Spent With Patient Time: Total time spent is greater than 50% in coordination of care (as documented) at patient's floor/unit and/or counseling patient: Quality Stroke Does the patient have a stroke diagnosis?: No VTE Prior VTE?: No VTE Risk Level:: Medical - moderate - high VTE Device Contraindication: Treatment Not Indicated VTE Drug Contraindication: N/A - Med Ordered
--- NOTE | 2022-01-01 15:44 | HO.PM.IMPN ---
Subjective Subjective Date of Service: 01/01/22 Interval History: Seen and examined this morning Follow-up for nonhealing left lower extremity wound Patient reports ongoing pain with dressing changes Denies any fever, chills Review of Systems Review of Systems: Yes all other systems are reviewed and are negative Constitutional Constitutional: Denies chills and Denies fever(s) Cardiovascular Cardiovascular: Denies chest pain and Denies palpitations Respiratory Respiratory: Denies cough Gastrointestinal Gastrointestinal: Denies abdominal pain, Denies nausea and Denies vomiting Endocrine Endocrine: Denies palpitations Physical Exam Vital Signs: Vital Signs: Last Vital Signs Temp 98.4 F 01/01/22 11:38 Pulse 76 01/01/22 11:38 Resp 18 01/01/22 11:38 BP 138/91 H 01/01/22 11:38 Pulse Ox 93 01/01/22 11:38 O2 Del Method 01/01/22 11:38 O2 Flow Rate 2 01/01/22 11:38 Oxygen Flow Rate 2 12/29/21 13:00 BMI result Body Mass Index 25.8 Const: General: comfortable and awake Nutritional Appearance: average body habitus Orientation/consciousness: patient oriented x3 Resp: Effort & Inspection: normal respiratory effort and able to speak in complete sentences Cardio: Rate: regular rate Heart sounds: S1 normal heart sound present and S2 normal heart sound present GI: Palpation (GI): Soft to palpation and nontender Neuro: General: patient oriented x3 Extrem: Other: posterior calf Objective Data Active Medications Acetaminophen (Acetaminophen 325 Mg Tablet) 975 mg PO Q8H PRN PRN Reason: Pain, Mild (Pain Scale 1-3) Last Admin: 01/01/22 08:44 Dose: 975 mg Documented By: DESIRE Albuterol Sulfate (Albuterol Sulfate 90 Mcg 8 Gm Inhaler) 1 puff INHALE RQ4H PRN PRN Reason: asthma Albuterol/Ipratropium (Albuterol/Iprat 2.5/0.5mg 3 Ml Ampul.Neb) 3 ml INHALE RQ4H WHILE AWAKE [facility] Last Admin: 01/01/22 12:15 Dose: Not Given Documented By: SHIRLEY Non-Admin Reason: Patient Refused Amoxicillin/Clavulanate Potassium (Amoxicillin/Potassium Clav 875 Mg Tablet) 875 mg PO Q12H [facility] Last Admin: 01/01/22 13:00 Dose: 875 mg Documented By: DESIRE Baclofen (Baclofen 10 Mg Tablet) 10 mg PO BID [facility] Last Admin: 01/01/22 08:39 Dose: 10 mg Documented By: DESIRE Docusate Sodium (Docusate Sodium 100 Mg Capsule) 100 mg PO DAILY PRN PRN Reason: Constipation Last Admin: 12/27/21 08:32 Dose: 100 mg Documented By: NATHANIEL Doxycycline Hyclate (Doxycycline Hyclate 100 Mg Tablet) 100 mg PO Q12H [facility] Last Admin: 01/01/22 13:00 Dose: 100 mg Documented By: DESIRE Duloxetine HCl (Duloxetine Hcl 20 Mg Capsule.Dr) 20 mg PO BEDTIME [facility] Last Admin: 12/31/21 21:28 Dose: 20 mg Documented By: ARTEMIO Fluticasone/Vilanterol (Fluticasone/Vilanterol 100/25 Blst.W.Dev) 1 puff INHALE DAILY PRN PRN Reason: Shortness Of Breath Gabapentin (Gabapentin 300 Mg Capsule) 300 mg PO QID [facility] Last Admin: 01/01/22 11:34 Dose: 300 mg Documented By: DESIRE Heparin Sodium (Porcine) (Heparin Sodium,Porcine 5,000 Unit/Ml Vial) 5,000 unit SUBCUT Q12H [facility] Last Admin: 01/01/22 11:34 Dose: 5,000 unit Documented By: DESIRE Hydromorphone HCl (Hydromorphone Hcl 1 Mg/Ml Syringe) 1 mg IVPUSH Q4H PRN; Protocol PRN Reason: Pain, Severe (Pain Scale 7-10) Last Admin: 01/01/22 11:35 Dose: 1 mg Documented By: DESIRE Ondansetron HCl (Ondansetron Hcl 4 Mg/2 Ml Vial) 4 mg IVPUSH Q8H PRN PRN Reason: Nausea and Vomiting Last Admin: 12/28/21 08:32 Dose: 4 mg Documented By: NATHANIEL Oxycodone HCl (Oxycodone Hcl Immed Release 5 Mg Tablet) 10 mg PO Q4H PRN PRN Reason: Pain, Mild (Pain Scale 1-3) Last Admin: 01/01/22 08:44 Dose: 10 mg Documented By: DESIRE Oxycodone HCl (Oxycodone Hcl Er 10 Mg Tab.Er.12h) 10 mg PO BID [facility] Last Admin: 01/01/22 08:39 Dose: 10 mg Documented By: DESIRE Pharmacy Consult (Consult Rx Perform Med Rec) 1 each MISCELLANE ONCE PRN PRN Reason: Consult order Polyethylene Glycol (Polyethylene Glycol 3350 17 Gm Powd.Pack) 17 gm PO DAILY [facility] Last Admin: 01/01/22 08:40 Dose: Not Given Documented By: DESIRE Non-Admin Reason: Patient Refused Prednisone (Prednisone 10 Mg Tablet) 10 mg PO DAILY [facility]; Taper Stop: 01/08/22 08:59 Last Admin: 01/01/22 08:39 Dose: 10 mg Documented By: DESIRE Sodium Chloride (0.9 % Sodium Chloride Flush 3 Ml Syringe) 3 ml IVFLUSH QSHIFT [facility] Last Admin: 01/01/22 11:35 Dose: 3 ml Documented By: DESIRE Labs CBC & Chem 7: 12/30/21 06:12 12/30/21 06:12 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 presents to the hospital of complaints of worsening pain on his left lower leg Nonhealing wound of left lower extremity increased erythema, pain, wound drainage of a chronic lower extremity ulcer blood cultures neg to date 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 Seen by wound care, surgery following Cellulitis. Improving erythema, warmth, tenderness, as well as edema up to just below the left knee. blood cultures negative ID following rheumatoid arthritis continue home medication as well as prednisone COPD, not in exacerbation continue home inhalers DEACON GFR >60. baseline his cr was 1.2 earlier this year DVT prophylaxis Heparin subQ Attending Dr. Pulliam Full code DISPO. Possible discharge tomorrow to [facility] if medically stable Patient requires continued hospitalization for left leg ulcer s/p debridement IV pain control. Quality Stroke Does the patient have a stroke diagnosis?: No VTE Prior VTE?: No VTE Risk Level:: Medical - moderate - high VTE Device Contraindication: Treatment Not Indicated VTE Drug Contraindication: N/A - Med Ordered
[2022-01-01] MEDS: Albuterol/Iprat 2.5/0.5MG 3 ML AMPUL.NEB INHALE (15:45)
[2022-01-01] MEDS: DULoxetine HCl 20 MG CAPSULE.DR PO (19:52)
[2022-01-02] VITALS (21 sets, daily range): BP systolic 92–179; BP diastolic 58–109; PULSE 71–118; RESP 16–20; TEMP 36.2–37.2; O2SAT 89–95
[2022-01-02] MEDS: Amoxicillin/Potassium Clav 875 MG TABLET PO (01:41)
[2022-01-02 06:42] LABS: Hematocrit 42.8 % (42.0-52.0); Hemoglobin 13.7 g/dl (14.0-18.0); Mean Corpuscular Hemoglobin 29.7 pg (27.0-33.0); Mean Corpuscular Volume 92.6 fL (80.0-98.0); Mean Platelet Volume 9.9 fL (9.4-12.4); Platelet Count 123 X10*3/uL (160-400); Red Blood Count 4.62 X10*6/uL (4.60-5.80); Red Cell Distribution Width 13.9 % (11.0-16.0); White Blood Count 8.7 X10*3/uL (4.8-10.8)
[2022-01-02 07:00] LABS: Anion Gap 14 (12-20); Blood Urea Nitrogen 18 mg/dL (9-16); Calcium 9.1 mg/dL (8.4-10.2); Carbon Dioxide 26 mmol/L (22-29); Chloride 105 mmol/L (96-108); Creatinine Clr Calc Pharmacy 49.3; Estimated Glomerular Filt Rate > 60; Glucose Random 82 mg/dL (60-115); Potassium 4.5 mmol/L (3.3-5.1); Sodium 140 mmol/L (135-145)
[2022-01-02] MEDS: Gabapentin 300 MG CAPSULE PO ×4 (08:09→19:59)
[2022-01-02] MEDS: Baclofen 10 MG TABLET PO ×2 (08:09→19:59)
[2022-01-02] MEDS: oxyCODONE HCl ER 10 MG TAB.ER.12H PO ×2 (08:09→19:59)
[2022-01-02] MEDS: predniSONE 10 MG TABLET PO (08:09)
[2022-01-02] MEDS: 0.9 % Sodium Chloride Flush 3 ML SYRINGE IVFLUSH ×2 (08:10→15:38)
[2022-01-02] MEDS: Albuterol/Iprat 2.5/0.5MG 3 ML AMPUL.NEB INHALE ×2 (08:40→15:05)
--- NOTE | 2022-01-02 09:59 | P.CONAN_ITS ---
[facility] Active Problems Active Problems: All Active Problems (Updated 01/01/22 @ 13:07 by Qamar Cedeno MD) Eschar of lower leg (Acute) Muscle spasm (Acute) Non-healing wound of left lower extremity (Acute) Chronic ulcer of leg (Acute) Cellulitis (Acute) Guaiac positive stools (Acute) Annual physical exam (Acute) Hypercalcemia (Acute) Leg pain, bilateral (Acute) Chronic venous insufficiency (Acute) Past Medical History Medical History Chronic ulcer of leg CKD (chronic kidney disease) stage 3, GFR 30-59 ml/min COPD (chronic obstructive pulmonary disease) Elevated serum creatinine HTN (hypertension) Rheumatoid arthritis Sjogren's disease Vasculitis Functional capacity: independent ambulation Family History Family History Other No family history of coronary artery disease Family history of problems with anesthesia: No Surgical History Surgical History History of hernia repair History of left knee replacement History of Problems with Anesthesia: No Social History Social History Household Members: Spouse Housing: House Do you presently have visiting nurse or other home services: No Alcohol intake: current Alcohol intake frequency: holidays/special occasions only Patient Tobacco Use Status: Former Tobacco user Tobacco use type: Cigarette Years Smoked: quit 2019 e-Cigarette/Vaping Use: Never Used Advance Directives Date on File: 12/23/21 service: No Current occupational status: retired Cognitive needs: Yes (cane) Hearing needs: No Vision needs: Yes (Pt wear glasses. ) Meds Allergies Allergy/AdvReac Type Severity Reaction Status Date / Time No Known Allergies Allergy Verified 12/22/21 11:15 [No Known Allergies*] Active Medications: Current Medications Acetaminophen (Acetaminophen 325 Mg Tablet) 975 mg PO Q8H PRN PRN Reason: Pain, Mild (Pain Scale 1-3) Last Admin: 01/01/22 17:13 Dose: 975 mg Albuterol Sulfate (Albuterol Sulfate 90 Mcg 8 Gm Inhaler) 1 puff INHALE RQ4H PRN PRN Reason: asthma Albuterol/Ipratropium (Albuterol/Iprat 2.5/0.5mg 3 Ml Ampul.Neb) 3 ml INHALE RQ4H WHILE AWAKE [facility] Last Admin: 01/02/22 08:40 Dose: 3 ml Amoxicillin/Clavulanate Potassium (Amoxicillin/Potassium Clav 875 Mg Tablet) 875 mg PO Q12H [facility] Last Admin: 01/02/22 01:41 Dose: 875 mg Baclofen (Baclofen 10 Mg Tablet) 10 mg PO BID [facility] Last Admin: 01/02/22 08:09 Dose: 10 mg Docusate Sodium (Docusate Sodium 100 Mg Capsule) 100 mg PO DAILY PRN PRN Reason: Constipation Last Admin: 12/27/21 08:32 Dose: 100 mg Doxycycline Hyclate (Doxycycline Hyclate 100 Mg Tablet) 100 mg PO Q12H [facility] Last Admin: 01/02/22 01:41 Dose: 100 mg Duloxetine HCl (Duloxetine Hcl 20 Mg Capsule.Dr) 20 mg PO BEDTIME [facility] Last Admin: 01/01/22 19:52 Dose: 20 mg Fluticasone/Vilanterol (Fluticasone/Vilanterol 100/25 Blst.W.Dev) 1 puff INHALE DAILY PRN PRN Reason: Shortness Of Breath Gabapentin (Gabapentin 300 Mg Capsule) 300 mg PO QID [facility] Last Admin: 01/02/22 08:09 Dose: 300 mg Heparin Sodium (Porcine) (Heparin Sodium,Porcine 5,000 Unit/Ml Vial) 5,000 unit SUBCUT Q12H [facility] Last Admin: 01/01/22 21:53 Dose: 5,000 unit Ondansetron HCl (Ondansetron Hcl 4 Mg/2 Ml Vial) 4 mg IVPUSH Q8H PRN PRN Reason: Nausea and Vomiting Last Admin: 12/28/21 08:32 Dose: 4 mg Oxycodone HCl (Oxycodone Hcl Immed Release 5 Mg Tablet) 10 mg PO Q4H PRN PRN Reason: Pain, Mild (Pain Scale 1-3) Last Admin: 01/01/22 17:13 Dose: 10 mg Oxycodone HCl (Oxycodone Hcl Er 10 Mg Tab.Er.12h) 10 mg PO BID [facility] Last Admin: 01/02/22 08:09 Dose: 10 mg Pharmacy Consult (Consult Rx Perform Med Rec) 1 each MISCELLANE ONCE PRN PRN Reason: Consult order Polyethylene Glycol (Polyethylene Glycol 3350 17 Gm Powd.Pack) 17 gm PO DAILY [facility] Last Admin: 01/02/22 08:08 Dose: Not Given Prednisone (Prednisone 10 Mg Tablet) 10 mg PO DAILY [facility]; Taper Stop: 01/08/22 08:59 Last Admin: 01/02/22 08:09 Dose: 10 mg Sodium Chloride (0.9 % Sodium Chloride Flush 3 Ml Syringe) 3 ml IVFLUSH QSHIFT [facility] Last Admin: 01/02/22 08:10 Dose: 3 ml Home Medications Medication Instructions Recorded Confirmed Last Taken Type umeclidinium 62.5 mcg-vilanterol 1 inh inhalation DAILY PRN 10/15/21 12/22/21 Unknown History 25 mcg/actuation powdr for Shortness Of Breath inhalation (Anoro Ellipta) acetaminophen 500 mg tablet 1,000 mg PO Q6H PRN Pain (Scale 10/30/21 12/22/21 12/22/21 History (Tylenol Extra Strength) Score 1-3) albuterol sulfate 90 mcg/actuation 2 puff inhalation Q6H PRN 11/28/21 12/22/21 Unknown History aerosol inhaler (ProAir HFA) Shortness Of Breath tocilizumab 80 mg/4 mL (20 mg/mL) 0 mg IV Q30D 11/28/21 12/22/21 12/02/21 History intravenous solution (Actemra) duloxetine 20 mg capsule,delayed 20 mg PO BEDTIME 12/19/21 12/22/21 12/21/21 History release prednisone 10 mg tablet See Taper PO DAILY 12/19/21 12/22/21 12/21/21 History Exam Exam Date and Time: January 02, 2022 0959 Height,Weight and Vital Signs: Height 5 ft 6 in Weight 72.575 kg Last Vital Signs Temp 98.3 F 01/02/22 09:29 Pulse 87 01/02/22 09:29 Resp 18 01/02/22 09:29 BP 179/109 H 01/02/22 09:29 Pulse Ox 92 01/02/22 09:29 O2 Del Method 01/02/22 09:29 O2 Flow Rate 2 01/02/22 09:29 Oxygen Flow Rate 2 12/29/21 13:00 Pertinent Lab Results Pertinent Lab Results: Laboratory Tests 12/22/21 12/22/21 12/22/21 11:41 11:41 11:41 WBC 14.4 H RBC 5.37 Hgb 16.3 Hct 48.4 MCV 90.1 MCH 30.4 MCHC 33.7 RDW 13.8 Plt Count 239 MPV 8.5 L Immature Gran % (Auto) 0.6 H Neut % (Auto) 83.3 H Lymph % (Auto) 10.7 L Carlton % (Auto) 4.8 Eos % (Auto) 0.3 Baso % (Auto) 0.3 Lymph # (Auto) 1.5 Carlton # (Auto) 0.7 Eos # (Auto) 0.0 Baso # (Auto) 0.0 Abs Immat Gran (auto) 0.09 H Absolute Neuts (auto) 12.0 H Absolute Nucleated RBC 0.000 Nucleated RBC % (auto) 0.0 Smear Tech's Comments ESR 1 Sodium 140 Potassium 4.0 Chloride 105 Carbon Dioxide 24 Anion Gap 15 BUN 19 H Creatinine 1.28 Estim Creat Clear Calc 44.3 Estimated GFR 55 Random Glucose 83 Lactic Acid Calcium 9.5 C-Reactive Protein 0.05 Total Protein (PEP) Albumin (PEP) Hvojo-1-Zcypczrul Vvlrh-7-Qicgopvsl Hpok-8-Tkfijhbr Zdzc-8-Odidhpgv Gamma Globulins Abnorm Protein Band 1 Abnorm Protein Band 2 Abnorm Protein Band 3 PEP Interpretation Urine Color Urine Appearance Urine pH Ur Specific [place] Urine Protein Urine Glucose (UA) Urine Ketones Urine Blood Urine Nitrite Ur Leukocyte Esterase Urine RBC Urine WBC Ur Squamous Epith Cells Uric Acid Crystals Urine Bacteria U Random Total Protein Urine Creatinine Vancomycin Trough Proteinase 3 (PR3) Ab Myeloperoxidase Ab Complement C3 Complement C4 COVID-19 ([facility]) COVID-19 Clin Com 12/22/21 12/23/21 12/23/21 11:41 04:07 04:07 WBC 24.2 H RBC 4.81 Hgb 14.4 Hct 44.1 MCV 91.7 MCH 29.9 MCHC 32.7 RDW 14.0 Plt Count 179 D MPV 8.4 L Immature Gran % (Auto) 2.7 H Neut % (Auto) 88.7 H Lymph % (Auto) 2.6 L Carlton % (Auto) 5.8 Eos % (Auto) 0.0 Baso % (Auto) 0.2 Lymph # (Auto) 0.6 L Carl[place] # (Auto) 1.4 H Eos # (Auto) 0.0 Baso # (Auto) 0.1 Abs Immat Gran (auto) 0.66 H Absolute Neuts (auto) 21.4 H Absolute Nucleated RBC 0.000 Nucleated RBC % (auto) 0.0 Smear Tech's Comments VERIFIED ESR Sodium 138 Potassium 4.2 Chloride 107 Carbon Dioxide 22 Anion Gap 13 BUN 22 H Creatinine 1.51 H Estim Creat Clear Calc 37.5 Estimated GFR 45 Random Glucose 116 H D Lactic Acid 1.3 Calcium 8.6 D C-Reactive Protein Total Protein (PEP) Albumin (PEP) Wyldj-7-Btsxzypgq Yzdlf-0-Hnqierrwh Ynou-4-Xzlsuono Acvv-4-Frndgibv Gamma Globulins Abnorm Protein Band 1 Abnorm Protein Band 2 Abnorm Protein Band 3 PEP Interpretation Urine Color Urine Appearance Urine pH Ur Specific [place] Urine Protein Urine Glucose (UA) Urine Ketones Urine Blood Urine Nitrite Ur Leukocyte Esterase Urine RBC Urine WBC Ur Squamous Epith Cells Uric Acid Crystals Urine Bacteria U Random Total Protein Urine Creatinine Vancomycin Trough Proteinase 3 (PR3) Ab Myeloperoxidase Ab Complement C3 Complement C4 COVID-19 ([facility]) COVID-19 Clin Com 12/23/21 12/24/21 12/24/21 08:48 05:46 10:59 WBC RBC Hgb Hct MCV MCH MCHC RDW Plt Count MPV Immature Gran % (Auto) Neut % (Auto) Lymph % (Auto) Carlton % (Auto) Eos % (Auto) Baso % (Auto) Lymph # (Auto) Carlton # (Auto) Eos # (Auto) Baso # (Auto) Abs Immat Gran (auto) Absolute Neuts (auto) Absolute Nucleated RBC Nucleated RBC % (auto) Smear Tech's Comments ESR Sodium Potassium Chloride Carbon Dioxide Anion Gap BUN Creatinine 1.35 Estim Creat Clear Calc 42.0 Estimated GFR 51 Random Glucose Lactic Acid Calcium C-Reactive Protein Total Protein (PEP) 5.1 L Albumin (PEP) 3.0 L Pxofo-0-Bckpxhnky 0.4 H Kcmno-7-Jtfrqexer 0.6 Ysov-5-Hqgsqniu 0.3 L Jaav-6-Xoubscsq 0.3 Gamma Globulins 0.6 L Abnorm Protein Band 1 TNP Abnorm Protein Band 2 TNP Abnorm Protein Band 3 TNP PEP Interpretation SEE NOTE Urine Color Urine Appearance Urine pH Ur Specific [place] Urine Protein Urine Glucose (UA) Urine Ketones Urine Blood Urine Nitrite Ur Leukocyte Esterase Urine RBC Urine WBC Ur Squamous Epith Cells Uric Acid Crystals Urine Bacteria U Random Total Protein Urine Creatinine Vancomycin Trough Proteinase 3 (PR3) Ab <1.0 Myeloperoxidase Ab <1.0 Complement C3 52 L Complement C4 15 COVID-19 ([facility]) Negative COVID-19 Clin Com See Note 12/24/21 12/24/21 12/24/21 13:20 13:20 18:21 WBC RBC Hgb Hct MCV MCH MCHC RDW Plt Count MPV Immature Gran % (Auto) Neut % (Auto) Lymph % (Auto) Carlton % (Auto) Eos % (Auto) Baso % (Auto) Lymph # (Auto) Carlton # (Auto) Eos # (Auto) Baso # (Auto) Abs Immat Gran (auto) Absolute Neuts (auto) Absolute Nucleated RBC Nucleated RBC % (auto) Smear Tech's Comments ESR Sodium Potassium Chloride Carbon Dioxide Anion Gap BUN Creatinine Estim Creat Clear Calc Estimated GFR Random Glucose Lactic Acid Calcium C-Reactive Protein Total Protein (PEP) Albumin (PEP) Tnccq-7-Nvpnehvjw Mwtco-6-Psnztgdhv Novp-9-Quywojdl Sypv-5-Beqijsst Gamma Globulins Abnorm Protein Band 1 Abnorm Protein Band 2 Abnorm Protein Band 3 PEP Interpretation Urine Color YELLOW Urine Appearance CLEAR Urine pH 6.0 Ur Specific [place] 1.025 Urine Protein NEG Urine Glucose (UA) NEG Urine Ketones NEG Urine Blood NEG Urine Nitrite NEG Ur Leukocyte Esterase NEG Urine RBC 0 Urine WBC 0 Ur Squamous Epith Cells NONE Uric Acid Crystals 1+ Urine Bacteria NONE U Random Total Protein 25 H Urine Creatinine 135.33 Vancomycin Trough 8.4 L Proteinase 3 (PR3) Ab Myeloperoxidase Ab Complement C3 Complement C4 COVID-19 ([facility]) COVID-19 Clin Com 12/25/21 12/25/21 12/25/21 05:59 05:59 05:59 WBC 16.2 H RBC 4.43 L Hgb 13.3 L Hct 41.9 L MCV 94.6 MCH 30.0 MCHC 31.7 RDW 13.9 Plt Count 168 MPV 9.0 L Immature Gran % (Auto) Neut % (Auto) Lymph % (Auto) Carlton % (Auto) Eos % (Auto) Baso % (Auto) Lymph # (Auto) Carlton # (Auto) Eos # (Auto) Baso # (Auto) Abs Immat Gran (auto) Absolute Neuts (auto) Absolute Nucleated RBC 0.000 Nucleated RBC % (auto) 0.0 Smear Tech's Comments ESR Sodium 142 Potassium 4.0 Chloride 111 H Carbon Dioxide 23 Anion Gap 12 BUN 17 H Creatinine 1.16 1.12 Estim Creat Clear Calc 48.8 50.6 Estimated GFR > 60 > 60 Random Glucose 77 Lactic Acid Calcium 8.3 L C-Reactive Protein Total Protein (PEP) Albumin (PEP) Zdtmd-4-Ljbqccgkn Mxhac-4-Qgewmirej Sxha-5-Taafzjeb Jaol-9-Nwgvcwzw Gamma Globulins Abnorm Protein Band 1 Abnorm Protein Band 2 Abnorm Protein Band 3 PEP Interpretation Urine Color Urine Appearance Urine pH Ur Specific [place] Urine Protein Urine Glucose (UA) Urine Ketones Urine Blood Urine Nitrite Ur Leukocyte Esterase Urine RBC Urine WBC Ur Squamous Epith Cells Uric Acid Crystals Urine Bacteria U Random Total Protein Urine Creatinine Vancomycin Trough Proteinase 3 (PR3) Ab Myeloperoxidase Ab Complement C3 Complement C4 COVID-19 ([facility]) COVID-19 [employer] 12/25/21 12/26/21 12/26/21 17:44 05:38 18:07 WBC RBC Hgb Hct MCV MCH MCHC RDW Plt Count MPV Immature Gran % (Auto) Neut % (Auto) Lymph % (Auto) Carlton % (Auto) Eos % (Auto) Baso % (Auto) Lymph # (Auto) Carl[place] # (Auto) Eos # (Auto) Baso # (Auto) Abs Immat Gran (auto) Absolute Neuts (auto) Absolute Nucleated RBC Nucleated RBC % (auto) Smear Tech's Comments ESR Sodium Potassium Chloride Carbon Dioxide Anion Gap BUN Creatinine 1.07 Estim Creat Clear Calc 53.0 Estimated GFR > 60 Random Glucose Lactic Acid Calcium C-Reactive Protein Total Protein (PEP) Albumin (PEP) Lznmk-4-Wpoxigvlp Myiba-8-Nvwxtjrwm Loom-8-Nydpadpf Ucry-9-Uovmpvdy Gamma Globulins Abnorm Protein Band 1 Abnorm Protein Band 2 Abnorm Protein Band 3 PEP Interpretation Urine Color Urine Appearance Urine pH Ur Specific [place] Urine Protein Urine Glucose (UA) Urine Ketones Urine Blood Urine Nitrite Ur Leukocyte Esterase Urine RBC Urine WBC Ur Squamous Epith Cells Uric Acid Crystals Urine Bacteria U Random Total Protein Urine Creatinine Vancomycin Trough 10.3 11.5 Proteinase 3 (PR3) Ab Myeloperoxidase Ab Complement C3 Complement C4 COVID-19 ([facility]) COVID-19 [employer] [facility] 12/27/21 12/28/21 12/29/21 06:04 05:59 06:14 WBC RBC Hgb Hct MCV MCH MCHC RDW Plt Count MPV Immature Gran % (Auto) Neut % (Auto) Lymph % (Auto) Carlton % (Auto) Eos % (Auto) Baso % (Auto) Lymph # (Auto) Carlton # (Auto) Eos # (Auto) Baso # (Auto) Abs Immat Gran (auto) Absolute Neuts (auto) Absolute Nucleated RBC Nucleated RBC % (auto) Smear Tech's Comments ESR Sodium Potassium Chloride Carbon Dioxide Anion Gap BUN Creatinine 1.01 0.98 1.12 Estim Creat Clear Calc 56.1 57.8 50.6 Estimated GFR > 60 > 60 > 60 Random Glucose Lactic Acid Calcium C-Reactive Protein Total Protein (PEP) Albumin (PEP) Mrnas-8-Pytuypwyv Rqtxo-5-Nikzrymze Yyhw-7-Hzormgjw Hwhc-4-Zqlbywei Gamma Globulins Abnorm Protein Band 1 Abnorm Protein Band 2 Abnorm Protein Band 3 PEP Interpretation Urine Color Urine Appearance Urine pH Ur Specific [place] Urine Protein Urine Glucose (UA) Urine Ketones Urine Blood Urine Nitrite Ur Leukocyte Esterase Urine RBC Urine WBC Ur Squamous Epith Cells Uric Acid Crystals Urine Bacteria U Random Total Protein Urine Creatinine Vancomycin Trough Proteinase 3 (PR3) Ab Myeloperoxidase Ab Complement C3 Complement C4 COVID-19 ([facility]) COVID-19 Clin Com 12/30/21 12/30/21 12/30/21 06:12 06:12 06:12 WBC 8.4 RBC 4.43 L Hgb 13.4 L Hct 41.5 L MCV 93.7 MCH 30.2 MCHC 32.3 RDW 13.8 Plt Count 161 MPV 10.0 Immature Gran % (Auto) Neut % (Auto) Lymph % (Auto) Carlton % (Auto) Eos % (Auto) Baso % (Auto) Lymph # (Auto) [place] # (Auto) Eos # (Auto) Baso # (Auto) Abs Immat Gran (auto) Absolute Neuts (auto) Absolute Nucleated RBC 0.000 Nucleated RBC % (auto) 0.0 Smear Tech's Comments ESR Sodium 141 Potassium 4.4 Chloride 107 Carbon Dioxide 27 Anion Gap 11 L BUN 17 H Creatinine 1.19 1.17 Estim Creat Clear Calc 47.6 48.4 Estimated GFR 59 > 60 Random Glucose 118 H D Lactic Acid Calcium 9.0 D C-Reactive Protein Total Protein (PEP) Albumin (PEP) Juwwb-3-Drkgjqlwv Vjjaw-7-Lezonukco Bmfa-5-Zehgbdnn Rkec-7-Bndugplc Gamma Globulins Abnorm Protein Band 1 Abnorm Protein Band 2 Abnorm Protein Band 3 PEP Interpretation Urine Color Urine Appearance Urine pH Ur Specific [place] Urine Protein Urine Glucose (UA) Urine Ketones Urine Blood Urine Nitrite Ur Leukocyte Esterase Urine RBC Urine WBC Ur Squamous Epith Cells Uric Acid Crystals Urine Bacteria U Random Total Protein Urine Creatinine Vancomycin Trough Proteinase 3 (PR3) Ab Myeloperoxidase Ab Complement C3 Complement C4 COVID-19 ([facility]) COVID-19 Clin Com 01/02/22 01/02/22 05:47 05:47 WBC 8.7 RBC 4.62 Hgb 13.7 L Hct 42.8 MCV 92.6 MCH 29.7 MCHC 32.0 RDW 13.9 Plt Count 123 L MPV 9.9 Immature Gran % (Auto) Neut % (Auto) Lymph % (Auto) Carl[place] % (Auto) Eos % (Auto) Baso % (Auto) Lymph # (Auto) [place] # (Auto) Eos # (Auto) Baso # (Auto) Abs Immat Gran (auto) Absolute Neuts (auto) Absolute Nucleated RBC 0.000 Nucleated RBC % (auto) 0.0 Smear Tech's Comments ESR Sodium 140 Potassium 4.5 Chloride 105 Carbon Dioxide 26 Anion Gap 14 BUN 18 H Creatinine 1.15 Estim Creat Clear Calc 49.3 Estimated GFR > 60 Random Glucose 82 Lactic Acid Calcium 9.1 C-Reactive Protein Total Protein (PEP) Albumin (PEP) Lrehj-5-Fojtjlefr Ojhdg-0-Yklieshdq Izoc-6-Wzwpgjop Isrm-6-Wrbpvcxp Gamma Globulins Abnorm Protein Band 1 Abnorm Protein Band 2 Abnorm Protein Band 3 PEP Interpretation Urine Color Urine Appearance Urine pH Ur Specific [place] Urine Protein Urine Glucose (UA) Urine Ketones Urine Blood Urine Nitrite Ur Leukocyte Esterase Urine RBC Urine WBC Ur Squamous Epith Cells Uric Acid Crystals Urine Bacteria U Random Total Protein Urine Creatinine Vancomycin Trough Proteinase 3 (PR3) Ab Myeloperoxidase Ab Complement C3 Complement C4 COVID-19 ([facility]) COVID-19 Clin Com Assessment and Plan Final Anesthetic Review Family History of Problems with Anesthesia: No History of Problems with Anesthesia: No
--- NOTE | 2022-01-02 11:16 | W.PM.OPN ---
Operative Note Operative Note Date of Service: 01/02/22 Narrative: Preop diagnosis: Ulcer with eschar, left posterior calf Postop diagnosis: The same Procedure: Excision debridement, of ulcer with eschar on the left posterior calf surgeon: Qamar Cedeno MD the patient is a 76-year-old male was had chronic ulcers of the left leg and he had undergone debridement of the lateral aspect because of ulcers last week with an eschar. However, he had developed another ulcer posteriorly on the calf with an eschar as well. I explained to him that we needed to proceed with excision in the or because of this. He has severe pain and tenderness with hyperesthesia of the in on these areas so he would not be able to tolerate this at bedside He understood the technique of procedure. He was aware of the risks, benefits, and alternatives. He was brought to the operating room. He was in general anesthesia via laryngeal mask airway. The left leg was prepped draped usual sterile fashion. A surgical time-out was done. The patient received receiving scheduled antibiotics I had taken down the previous dressings on the entire left leg. Examination revealed an ulcer with the thick eschar a posteriorly. I sharply debrided this using the curved Landeros scissors. I debrided an area about 8 x 5 cm. I also cleaned up the previous also on the lateral aspect of the lower leg towards the ankle. This had good granulation tissue and was clean. There were no other areas of ischemic skin. I irrigated the debrided areas. I then nonstick sterile form packing and then wet to dry. I wrapped the entire leg with thick Kerlix rolls. The procedure was then completed The patient tolerated this well. There were no complications noted. Estimated blood loss about 25 cc The patient was extubated without difficulty and transferred to the recovery room with stable vital signs.
--- NOTE | 2022-01-02 11:30 | MHC.CM.PN ---
PT NOT YET MEDICALLY CLEARED DCP [facility]IN[facility] TO BE [facility] IS STILL PREFERRED FACILITY
[2022-01-02] MEDS: fentaNYL citrate/PF 100 MCG/2 ML VIAL 50 MCG IVPUSH ×2 (11:37→11:44)
--- NOTE | 2022-01-02 11:37 | HO.PM.IMPN ---
Subjective Subjective Date of Service: 01/02/22 Interval History: Seen and examined this morning Follow-up for left lower extremity wound No overnight events, slept well Reports pain with movement of his left leg. Denies fever, chills Review of Systems Review of Systems: Yes all other systems are reviewed and are negative Constitutional Constitutional: Denies chills and Denies fever(s) Cardiovascular Cardiovascular: Denies chest pain, Denies palpitations and Denies dyspnea Respiratory Respiratory: Denies cough and Denies dyspnea Gastrointestinal Gastrointestinal: Denies abdominal pain, Denies diarrhea, Denies nausea and Denies vomiting Endocrine Endocrine: Denies palpitations Physical Exam Vital Signs: Vital Signs: Last Vital Signs Temp 98.7 F 01/02/22 11:28 Pulse 76 01/02/22 11:28 Resp 16 01/02/22 11:28 BP 137/107 H 01/02/22 11:28 Pulse Ox 94 01/02/22 11:28 O2 Del Method 01/02/22 11:28 O2 Flow Rate 3 01/02/22 11:28 Oxygen Flow Rate 2 12/29/21 13:00 BMI result Body Mass Index 25.8 Const: General: comfortable and awake Nutritional Appearance: average body habitus Orientation/consciousness: patient oriented x3 Resp: Effort & Inspection: normal respiratory effort and able to speak in complete sentences Cardio: Rate: regular rate Heart sounds: S1 normal heart sound present and S2 normal heart sound present GI: Palpation (GI): Soft to palpation and nontender Neuro: General: patient oriented x3 Extrem: Other: LLE wrapped in c/d/i dressing from ankle to knee Objective Data Active Medications Acetaminophen (Acetaminophen 325 Mg Tablet) 975 mg PO Q8H PRN PRN Reason: Pain, Mild (Pain Scale 1-3) Last Admin: 01/01/22 17:13 Dose: 975 mg Documented By: ELISSA Albuterol Sulfate (Albuterol Sulfate 90 Mcg 8 Gm Inhaler) 1 puff INHALE RQ4H PRN PRN Reason: asthma Albuterol/Ipratropium (Albuterol/Iprat 2.5/0.5mg 3 Ml Ampul.Neb) 3 ml INHALE RQ4H WHILE AWAKE [facility] Last Admin: 01/02/22 08:40 Dose: 3 ml Documented By: SHIRLEY Amoxicillin/Clavulanate Potassium (Amoxicillin/Potassium Clav 875 Mg Tablet) 875 mg PO Q12H [facility] Last Admin: 01/02/22 01:41 Dose: 875 mg Documented By: SAMUEL Baclofen (Baclofen 10 Mg Tablet) 10 mg PO BID [facility] Last Admin: 01/02/22 08:09 Dose: 10 mg Documented By: OJ Docusate Sodium (Docusate Sodium 100 Mg Capsule) 100 mg PO DAILY PRN PRN Reason: Constipation Last Admin: 12/27/21 08:32 Dose: 100 mg Documented By: COTEMA Doxycycline Hyclate (Doxycycline Hyclate 100 Mg Tablet) 100 mg PO Q12H [facility] Last Admin: 01/02/22 01:41 Dose: 100 mg Documented By: SAMUEL Duloxetine HCl (Duloxetine Hcl 20 Mg Capsule.Dr) 20 mg PO BEDTIME [facility] Last Admin: 01/01/22 19:52 Dose: 20 mg Documented By: SAMUEL Fentanyl (Fentanyl Citrate/Pf 100 Mcg/2 Ml Vial) 25 mcg IVPUSH Q5M PRN; Protocol PRN Reason: Pain, Moderate (Pain Scale 4-6 Fentanyl (Fentanyl Citrate/Pf 100 Mcg/2 Ml Vial) 50 mcg IVPUSH Q5M PRN; Protocol PRN Reason: Pain, Severe (Pain Scale 7-10) Fluticasone/Vilanterol (Fluticasone/Vilanterol 100/25 Blst.W.Dev) 1 puff INHALE DAILY PRN PRN Reason: Shortness Of Breath Gabapentin (Gabapentin 300 Mg Capsule) 300 mg PO QID [facility] Last Admin: 01/02/22 08:09 Dose: 300 mg Documented By: OJ Heparin Sodium (Porcine) (Heparin Sodium,Porcine 5,000 Unit/Ml Vial) 5,000 unit SUBCUT Q12H [facility] Last Admin: 01/01/22 21:53 Dose: 5,000 unit Documented By: SAMUEL Ondansetron HCl (Ondansetron Hcl 4 Mg/2 Ml Vial) 4 mg IVPUSH Q8H PRN PRN Reason: Nausea and Vomiting Last Admin: 12/28/21 08:32 Dose: 4 mg Documented By: COTEMA Ondansetron HCl (Ondansetron Hcl 4 Mg/2 Ml Vial) 4 mg IVPUSH ONCE PRN PRN Reason: Nausea and Vomiting Oxycodone HCl (Oxycodone Hcl Er 10 Mg Tab.Er.12h) 10 mg PO BID [facility] Last Admin: 01/02/22 08:09 Dose: 10 mg Documented By: OJ Oxycodone HCl (Oxycodone Hcl Immed Release 5 Mg Tablet) 5 mg PO ONCE PRN PRN Reason: Pain, Severe (Pain Scale 7-10) Pharmacy Consult (Consult Rx Perform Med Rec) 1 each MISCELLANE ONCE PRN PRN Reason: Consult order Polyethylene Glycol (Polyethylene Glycol 3350 17 Gm Powd.Pack) 17 gm PO DAILY [facility] Last Admin: 01/02/22 08:08 Dose: Not Given Documented By: OJ Non-Admin Reason: Patient Refused Prednisone (Prednisone 10 Mg Tablet) 10 mg PO DAILY [facility]; Taper Stop: 01/08/22 08:59 Last Admin: 01/02/22 08:09 Dose: 10 mg Documented By: OJ Sodium Chloride (0.9 % Sodium Chloride Flush 3 Ml Syringe) 3 ml IVFLUSH QSHIFT [facility] Last Admin: 01/02/22 08:10 Dose: 3 ml Documented By: OJ Labs CBC & Chem 7: 01/02/22 05:47 01/02/22 05:47 Labs: Laboratory Results - last 24 hr 01/02/22 01/02/22 05:47 05:47 MCV 92.6 MCH 29.7 MCHC 32.0 RDW 13.9 Plt Count 123 L MPV 9.9 Absolute Nucleated RBC 0.000 Nucleated RBC % (auto) 0.0 Anion Gap 14 Estim Creat Clear Calc 49.3 Estimated GFR > 60 Random Glucose 82 Calcium 9.1 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 Resolved blood cultures negative ID following rheumatoid arthritis continue home medication as well as prednisone COPD, not in exacerbation continue home inhalers DEACON GFR >60. baseline his cr was 1.2 earlier this year DVT prophylaxis Heparin subQ Attending Dr. Pulliam Full code DISPO. to STR when medically stable Patient requires continued hospitalization for left leg ulcer s/p debridement IV pain control. Quality Stroke Does the patient have a stroke diagnosis?: No VTE Prior VTE?: No VTE Risk Level:: Medical - moderate - high VTE Device Contraindication: Treatment Not Indicated VTE Drug Contraindication: N/A - Med Ordered
[2022-01-02] MEDS: fentaNYL citrate/PF 100 MCG/2 ML VIAL 25 MCG IVPUSH (12:11)
[2022-01-02] MEDS: oxyCODONE HCl Immed Release 5 MG TABLET PO (12:57)
--- NOTE | 2022-01-02 14:15 | MHC.HEMONC ---
Alert and oriented. C/O left leg pain, medicated per MAR with good effect. VSS, afebrile, no acute resp. distress noted. S/P wound debridement. Left leg elevated on pillow, prn oxycodone given post procedure with good effect. at bedside. Vital signs stable. Fall precautions maintained. Will continue to monitor and treat per plan of care.
--- NOTE | 2022-01-02 14:25 | MHC.CLN ---
F/U PATIENT REQUESTING ENSURE SUPPLEMENT. ADDED ENSURE BID TO PROVIDE ADDITIONAL 700 KCALS, 40 G PROTEIN.
[2022-01-02] MEDS: HYDROmorphone HCl 0.5 MG/0.5 ML SYRINGE 0.25 MG IVPUSH (15:36)
--- NOTE | 2022-01-02 15:50 | PM.EVENT ---
Event Note Date of Service: 01/02/22 Event Note: Seen postop Underwent debridement of the left leg earlier today He seems to have adequate pain control at this time Dressings dry Pain management Plan to change dressings on Wednesday Family updated
[2022-01-02] MEDS: DULoxetine HCl 20 MG CAPSULE.DR PO (19:59)
[2022-01-02] MEDS: Heparin Sodium,Porcine 5,000 UNIT/ML VIAL 5000 UNIT SUBCUT (20:00)
[2022-01-03] VITALS (7 sets, daily range): BP systolic 111–163; BP diastolic 74–92; PULSE 71–90; RESP 16–20; TEMP 36.4–37; O2SAT 91–96
[2022-01-03] MEDS: oxyCODONE HCl Immed Release 5 MG TABLET PO ×2 (00:20→20:04)
[2022-01-03] MEDS: 0.9 % Sodium Chloride Flush 3 ML SYRINGE IVFLUSH ×4 (00:21→19:44)
[2022-01-03] MEDS: Albuterol/Iprat 2.5/0.5MG 3 ML AMPUL.NEB INHALE (09:07)
--- NOTE | 2022-01-03 09:34 | HO.POSTANES ---
Post Anesthesia Evaluation Post Anesthesia Evaluation Vital Signs: Vital Signs Temp Pulse Resp BP Pulse Ox O2 Del Method 01/03/22 09:09 90 18 01/03/22 08:14 98.6 F 71 17 128/82 93 Room Air 01/03/22 03:40 97.8 F 72 18 114/74 96 Room Air 01/03/22 01:00 16 01/02/22 23:58 97.1 F 77 17 110/75 95 Room Air 01/02/22 23:00 97.1 F 77 17 110/75 95 Room Air Anesthesia: General LMA Mental Status: Awake Pain Control: Satisfactory Nausea/Vomiting: None Hydration: Adequate Anesthesia-Related Issues: No Anes. Related Issues
--- NOTE | 2022-01-03 09:44 | PM.PNGS ---
Subjective Subjective Date of Service: 01/03/22 Interval history: seems to have been comfortable postop pain wellcontrolled this morning he is in good spirits Physical Exam Vital Signs: Vital Signs: Last Vital Signs Temp 98.6 F 01/03/22 08:14 Pulse 90 01/03/22 09:09 Resp 18 01/03/22 09:09 BP 128/82 01/03/22 08:14 Pulse Ox 93 01/03/22 08:14 O2 Del Method 01/03/22 08:14 O2 Flow Rate 2 01/02/22 20:00 Oxygen Flow Rate 2 12/29/21 13:00 BMI result Body Mass Index 25.8 Const: General: comfortable and no acute distress Resp: Effort & Inspection: normal respiratory effort Extrem: Other: dressings dry on the left leg Objective Data Active Medications Acetaminophen (Acetaminophen 325 Mg Tablet) 975 mg PO Q8H PRN PRN Reason: Pain, Mild (Pain Scale 1-3) Last Admin: 01/01/22 17:13 Dose: 975 mg Documented By: ELISSA Albuterol Sulfate (Albuterol Sulfate 90 Mcg 8 Gm Inhaler) 1 puff INHALE RQ4H PRN PRN Reason: asthma Albuterol/Ipratropium (Albuterol/Iprat 2.5/0.5mg 3 Ml Ampul.Neb) 3 ml INHALE RQ4H WHILE AWAKE [facility] Last Admin: 01/03/22 09:07 Dose: 3 ml Documented By: REGINE Baclofen (Baclofen 10 Mg Tablet) 10 mg PO BID [facility] Last Admin: 01/02/22 19:59 Dose: 10 mg Documented By: ARTEMIO Docusate Sodium (Docusate Sodium 100 Mg Capsule) 100 mg PO DAILY PRN PRN Reason: Constipation Last Admin: 12/27/21 08:32 Dose: 100 mg Documented By: COTEMA Duloxetine HCl (Duloxetine Hcl 20 Mg Capsule.Dr) 20 mg PO BEDTIME [facility] Last Admin: 01/02/22 19:59 Dose: 20 mg Documented By: ARTEMIO Fentanyl (Fentanyl Citrate/Pf 100 Mcg/2 Ml Vial) 25 mcg IVPUSH Q5M PRN; Protocol PRN Reason: Pain, Moderate (Pain Scale 4-6 Last Admin: 01/02/22 12:11 Dose: 25 mcg Documented By: AMADEO Fentanyl (Fentanyl Citrate/Pf 100 Mcg/2 Ml Vial) 50 mcg IVPUSH Q5M PRN; Protocol PRN Reason: Pain, Severe (Pain Scale 7-10) Last Admin: 01/02/22 11:44 Dose: 50 mcg Documented By: AMADEO Fluticasone/Vilanterol (Fluticasone/Vilanterol 100/25 Blst.W.Dev) 1 puff INHALE DAILY PRN PRN Reason: Shortness Of Breath Gabapentin (Gabapentin 300 Mg Capsule) 300 mg PO QID [facility] Last Admin: 01/02/22 19:59 Dose: 300 mg Documented By: ARTEMIO Heparin Sodium (Porcine) (Heparin Sodium,Porcine 5,000 Unit/Ml Vial) 5,000 unit SUBCUT Q12H [facility] Last Admin: 01/02/22 20:00 Dose: 5,000 unit Documented By: ARTEMIO Hydromorphone HCl (Hydromorphone Hcl 0.5 Mg/0.5 Ml Syringe) 0.25 mg IVPUSH Q5M PRN; Protocol PRN Reason: Pain, Severe (Pain Scale 7-10) Last Admin: 01/02/22 15:36 Dose: 0.25 mg Documented By: OJ Ondansetron HCl (Ondansetron Hcl 4 Mg/2 Ml Vial) 4 mg IVPUSH Q8H PRN PRN Reason: Nausea and Vomiting Last Admin: 12/28/21 08:32 Dose: 4 mg Documented By: NATHANIEL Ondansetron HCl (Ondansetron Hcl 4 Mg/2 Ml Vial) 4 mg IVPUSH ONCE PRN PRN Reason: Nausea and Vomiting Pharmacy Consult (Consult Rx Perform Med Rec) 1 each MISCELLANE ONCE PRN PRN Reason: Consult order Polyethylene Glycol (Polyethylene Glycol 3350 17 Gm Powd.Pack) 17 gm PO DAILY [facility] Last Admin: 01/02/22 08:08 Dose: Not Given Documented By: OJ Non-Admin Reason: Patient Refused Prednisone (Prednisone 10 Mg Tablet) 10 mg PO DAILY [facility]; Taper Stop: 01/08/22 08:59 Last Admin: 01/02/22 08:09 Dose: 10 mg Documented By: OJ Sodium Chloride (0.9 % Sodium Chloride Flush 3 Ml Syringe) 3 ml IVFLUSH QSHIFT [facility] Last Admin: 01/03/22 00:21 Dose: 3 ml Documented By: ARTEMIO Labs CBC & Chem 7: 01/02/22 05:47 01/02/22 05:47 Procedures Date of Service Date of Service: 01/03/22 Progress Note: A&P Assessment and plan (1) Eschar of lower leg: Status: Acute Assessment and Plan: status post debridement of ulcer with eschar on the posterior calf yesterday will hold off on dressing changes today has areas appeared clean after debridement he seems a lot more comfortable today still certain as to why he keeps having this skin ulcers with eschars with severe pain wound care will continue to follow closely physical therapy Time Spent With Patient Time: Total time spent is greater than 50% in coordination of care (as documented) at patient's floor/unit and/or counseling patient: Quality Stroke Does the patient have a stroke diagnosis?: No VTE Prior VTE?: No VTE Risk Level:: Medical - moderate - high VTE Device Contraindication: Treatment Not Indicated VTE Drug Contraindication: N/A - Med Ordered
--- NOTE | 2022-01-03 09:53 | P.PNIM_ITS ---
Subjective Subjective Date of Service: 01/03/22 Interval History: Seen and examined this morning Follow-up for left lower extremity wounds No overnight events, slept well Physical Exam Vital Signs: Vital Signs: Last Vital Signs Temp 98.6 F 01/03/22 08:14 Pulse 90 01/03/22 09:09 Resp 18 01/03/22 09:09 BP 128/82 01/03/22 08:14 Pulse Ox 93 01/03/22 08:14 O2 Del Method 01/03/22 08:14 O2 Flow Rate 2 01/02/22 20:00 Oxygen Flow Rate 2 12/29/21 13:00 BMI result Body Mass Index 25.8 Appearing in no acute distress lung sounds are clear to auscultation heart regular rate rhythm, clear S1, S2 positive bowel sounds, abdomen is soft, nontender neuro patient is alert x3, no focal deficits Surgical dressing intact two wounds one to left calf and one to lateral heal Objective Data Active Medications Acetaminophen (Acetaminophen 325 Mg Tablet) 975 mg PO Q8H PRN PRN Reason: Pain, Mild (Pain Scale 1-3) Last Admin: 01/01/22 17:13 Dose: 975 mg Documented By: ELISSA Albuterol Sulfate (Albuterol Sulfate 90 Mcg 8 Gm Inhaler) 1 puff INHALE RQ4H PRN PRN Reason: asthma Albuterol/Ipratropium (Albuterol/Iprat 2.5/0.5mg 3 Ml Ampul.Neb) 3 ml INHALE RQ4H WHILE AWAKE [facility] Last Admin: 01/03/22 09:07 Dose: 3 ml Documented By: REGINE Baclofen (Baclofen 10 Mg Tablet) 10 mg PO BID [facility] Last Admin: 01/02/22 19:59 Dose: 10 mg Documented By: ARTEMIO Docusate Sodium (Docusate Sodium 100 Mg Capsule) 100 mg PO DAILY PRN PRN Reason: Constipation Last Admin: 12/27/21 08:32 Dose: 100 mg Documented By: COTEMA Duloxetine HCl (Duloxetine Hcl 20 Mg Capsule.) 20 mg PO BEDTIME [facility] Last Admin: 01/02/22 19:59 Dose: 20 mg Documented By: ARTEMIO Fentanyl (Fentanyl Citrate/Pf 100 Mcg/2 Ml Vial) 25 mcg IVPUSH Q5M PRN; Protocol PRN Reason: Pain, Moderate (Pain Scale 4-6 Last Admin: 01/02/22 12:11 Dose: 25 mcg Documented By: AMADEO Fentanyl (Fentanyl Citrate/Pf 100 Mcg/2 Ml Vial) 50 mcg IVPUSH Q5M PRN; Protocol PRN Reason: Pain, Severe (Pain Scale 7-10) Last Admin: 01/02/22 11:44 Dose: 50 mcg Documented By: AMADEO Fluticasone/Vilanterol (Fluticasone/Vilanterol 100/25 Blst.W.Dev) 1 puff INHALE DAILY PRN PRN Reason: Shortness Of Breath Gabapentin (Gabapentin 300 Mg Capsule) 300 mg PO QID [facility] Last Admin: 01/02/22 19:59 Dose: 300 mg Documented By: ARTEMIO Heparin Sodium (Porcine) (Heparin Sodium,Porcine 5,000 Unit/Ml Vial) 5,000 unit SUBCUT Q12H [facility] Last Admin: 01/02/22 20:00 Dose: 5,000 unit Documented By: ARTEMIO Hydromorphone HCl (Hydromorphone Hcl 0.5 Mg/0.5 Ml Syringe) 0.25 mg IVPUSH Q5M PRN; Protocol PRN Reason: Pain, Severe (Pain Scale 7-10) Last Admin: 01/02/22 15:36 Dose: 0.25 mg Documented By: OJ Ondansetron HCl (Ondansetron Hcl 4 Mg/2 Ml Vial) 4 mg IVPUSH Q8H PRN PRN Reason: Nausea and Vomiting Last Admin: 12/28/21 08:32 Dose: 4 mg Documented By: COTLEEANNA Ondansetron HCl (Ondansetron Hcl 4 Mg/2 Ml Vial) 4 mg IVPUSH ONCE PRN PRN Reason: Nausea and Vomiting Pharmacy Consult (Consult Rx Perform Med Rec) 1 each MISCELLANE ONCE PRN PRN Reason: Consult order Polyethylene Glycol (Polyethylene Glycol 3350 17 Gm Powd.Pack) 17 gm PO DAILY [facility] Last Admin: 01/02/22 08:08 Dose: Not Given Documented By: OJ Non-Admin Reason: Patient Refused Prednisone (Prednisone 10 Mg Tablet) 10 mg PO DAILY [facility]; Taper Stop: 01/08/22 08:59 Last Admin: 01/02/22 08:09 Dose: 10 mg Documented By: OJ Sodium Chloride (0.9 % Sodium Chloride Flush 3 Ml Syringe) 3 ml IVFLUSH QSHIFT [facility] Last Admin: 01/03/22 00:21 Dose: 3 ml Documented By: ARTEMIO Labs CBC & Chem 7: 01/02/22 05:47 01/02/22 05:47 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 Resolved blood cultures negative ID following rheumatoid arthritis continue home medication as well as prednisone COPD, not in exacerbation continue home inhalers DEACON GFR >60. baseline his cr was 1.2 earlier this year DVT prophylaxis Heparin subQ Attending Dr. Stock Full code DISPO. to STR when medically stable Patient requires continued hospitalization for left leg ulcer s/p debridement IV pain control. Quality Stroke Does the patient have a stroke diagnosis?: No VTE Prior VTE?: No VTE Risk Level:: Medical - moderate - high VTE Device Contraindication: Treatment Not Indicated VTE Drug Contraindication: N/A - Med Ordered
[2022-01-03] MEDS: Heparin Sodium,Porcine 5,000 UNIT/ML VIAL 5000 UNIT SUBCUT ×2 (10:10→23:40)
[2022-01-03] MEDS: predniSONE 10 MG TABLET PO (10:10)
[2022-01-03] MEDS: Baclofen 10 MG TABLET PO ×2 (10:10→19:42)
[2022-01-03] MEDS: Gabapentin 300 MG CAPSULE PO ×4 (10:10→19:42)
[2022-01-03] MEDS: Acetaminophen 325 MG TABLET 975 MG PO (10:10)
[2022-01-03] MEDS: DULoxetine HCl 20 MG CAPSULE.DR PO (19:42)
[2022-01-04] VITALS (9 sets, daily range): BP systolic 106–129; BP diastolic 69–87; PULSE 64–99; RESP 14–18; TEMP 35.6–36.7; O2SAT 90–96
[2022-01-04] MEDS: ondansetron HCL 4 MG/2 ML VIAL IVPUSH (00:05)
[2022-01-04] MEDS: Morphine Sulfate 4 MG/ML CARTRIDGE IVPUSH (00:05)
[2022-01-04] MEDS: 0.9 % Sodium Chloride Flush 3 ML SYRINGE IVFLUSH ×3 (08:39→20:36)
[2022-01-04] MEDS: Acetaminophen 325 MG TABLET 975 MG PO ×2 (08:39→17:00)
[2022-01-04] MEDS: Baclofen 10 MG TABLET PO ×2 (08:40→20:35)
[2022-01-04] MEDS: Gabapentin 300 MG CAPSULE PO ×4 (08:40→20:35)
[2022-01-04] MEDS: predniSONE 10 MG TABLET PO (08:40)
[2022-01-04] MEDS: HYDROmorphone HCl 1 MG/ML SYRINGE IVPUSH (09:37)
[2022-01-04] MEDS: Heparin Sodium,Porcine 5,000 UNIT/ML VIAL 5000 UNIT SUBCUT ×2 (09:46→20:35)
--- NOTE | 2022-01-04 09:59 | P.PNIM_ITS ---
Subjective Subjective Date of Service: 01/04/22 Interval History: Seen and examined this morning Follow-up for left lower extremity wounds pain overnight Review of Systems Follow up cellulitis Physical Exam Vital Signs: Vital Signs: Last Vital Signs Temp 98.0 F 01/04/22 07:54 Pulse 76 01/04/22 07:54 Resp 16 01/04/22 07:54 BP 128/75 01/04/22 07:54 Pulse Ox 90 L 01/04/22 07:54 O2 Del Method 01/04/22 07:54 O2 Flow Rate 2 01/03/22 15:44 Oxygen Flow Rate 2 12/29/21 13:00 BMI result Body Mass Index 25.8 Appearing in no acute distress lung sounds are clear to auscultation heart regular rate rhythm, clear S1, S2 positive bowel sounds, abdomen is soft, nontender neuro patient is alert x3, no focal deficits Objective Data Active Medications Acetaminophen (Acetaminophen 325 Mg Tablet) 975 mg PO Q8H PRN PRN Reason: Pain, Mild (Pain Scale 1-3) Last Admin: 01/04/22 08:39 Dose: 975 mg Documented By: SAMSON Albuterol Sulfate (Albuterol Sulfate 90 Mcg 8 Gm Inhaler) 1 puff INHALE RQ4H PRN PRN Reason: asthma Baclofen (Baclofen 10 Mg Tablet) 10 mg PO BID [facility] Last Admin: 01/04/22 08:40 Dose: 10 mg Documented By: SAMSON Docusate Sodium (Docusate Sodium 100 Mg Capsule) 100 mg PO DAILY PRN PRN Reason: Constipation Last Admin: 12/27/21 08:32 Dose: 100 mg Documented By: COTEMA Duloxetine HCl (Duloxetine Hcl 20 Mg Capsule.Dr) 20 mg PO BEDTIME [facility] Last Admin: 01/03/22 19:42 Dose: 20 mg Documented By: NAUMOC Fentanyl (Fentanyl Citrate/Pf 100 Mcg/2 Ml Vial) 25 mcg IVPUSH Q5M PRN; Protocol PRN Reason: Pain, Moderate (Pain Scale 4-6 Last Admin: 01/02/22 12:11 Dose: 25 mcg Documented By: LARVidal Fentanyl (Fentanyl Citrate/Pf 100 Mcg/2 Ml Vial) 50 mcg IVPUSH Q5M PRN; Protocol PRN Reason: Pain, Severe (Pain Scale 7-10) Last Admin: 01/02/22 11:44 Dose: 50 mcg Documented By: AMADEO Fluticasone/Vilanterol (Fluticasone/Vilanterol 100/25 Blst.W.Dev) 1 puff INHALE DAILY PRN PRN Reason: Shortness Of Breath Gabapentin (Gabapentin 300 Mg Capsule) 300 mg PO QID [facility] Last Admin: 01/04/22 08:40 Dose: 300 mg Documented By: SAMSON Heparin Sodium (Porcine) (Heparin Sodium,Porcine 5,000 Unit/Ml Vial) 5,000 unit SUBCUT Q12H [facility] Last Admin: 01/04/22 09:46 Dose: 5,000 unit Documented By: SAMSON Hydromorphone HCl (Hydromorphone Hcl 0.5 Mg/0.5 Ml Syringe) 0.25 mg IVPUSH Q5M PRN; Protocol PRN Reason: Pain, Severe (Pain Scale 7-10) Last Admin: 01/02/22 15:36 Dose: 0.25 mg Documented By: OJ Morphine Sulfate (Morphine Sulfate 4 Mg/Ml Cartridge) 3 mg IVPUSH Q3H PRN; Protocol PRN Reason: Pain, Severe (Pain Scale 7-10) Ondansetron HCl (Ondansetron Hcl 4 Mg/2 Ml Vial) 4 mg IVPUSH Q8H PRN PRN Reason: Nausea and Vomiting Last Admin: 01/04/22 00:05 Dose: 4 mg Documented By: BAKARI Ondansetron HCl (Ondansetron Hcl 4 Mg/2 Ml Vial) 4 mg IVPUSH ONCE PRN PRN Reason: Nausea and Vomiting Oxycodone HCl (Oxycodone Hcl Immed Release 5 Mg Tablet) 5 mg PO Q4H PRN PRN Reason: Pain, Severe (Pain Scale 7-10) Last Admin: 01/03/22 20:04 Dose: 5 mg Documented By: BAKARI Pharmacy Consult (Consult Rx Perform Med Rec) 1 each MISCELLANE ONCE PRN PRN Reason: Consult order Polyethylene Glycol (Polyethylene Glycol 3350 17 Gm Powd.Pack) 17 gm PO DAILY [facility] Last Admin: 01/04/22 08:46 Dose: Not Given Documented By: SAMSON Non-Admin Reason: Patient Refused Prednisone (Prednisone 10 Mg Tablet) 10 mg PO DAILY [facility]; Taper Stop: 01/08/22 08:59 Last Admin: 01/04/22 08:40 Dose: 10 mg Documented By: SAMSON Sodium Chloride (0.9 % Sodium Chloride Flush 3 Ml Syringe) 3 ml IVFLUSH QSHIFT [facility] Last Admin: 01/04/22 08:39 Dose: 3 ml Documented By: SAMSON Labs CBC & Chem 7: 01/02/22 05:47 01/02/22 05:47 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 Resolved blood cultures negative ID following rheumatoid arthritis continue home medication as well as prednisone COPD, not in exacerbation continue home inhalers DEACON GFR >60. baseline his cr was 1.2 earlier this year DVT prophylaxis Heparin subQ Attending Dr. Stock Full code DISPO. to STR when medically stable Patient requires continued hospitalization for left leg ulcer s/p debridement IV pain control. Quality Stroke Does the patient have a stroke diagnosis?: No VTE Prior VTE?: No VTE Risk Level:: Medical - moderate - high VTE Device Contraindication: Treatment Not Indicated VTE Drug Contraindication: N/A - Med Ordered
[2022-01-04] MEDS: oxyCODONE HCl Immed Release 5 MG TABLET PO ×2 (10:27→20:40)
[2022-01-04] MEDS: fentaNYL 12 MCG PATCH.TD72 TRANSDERMA (10:27)
[2022-01-04] MEDS: Morphine Sulfate 4 MG/ML CARTRIDGE 3 MG IVPUSH (11:16)
--- NOTE | 2022-01-04 12:06 | P.PNGS_ITS ---
Subjective Subjective Date of Service: 01/04/22 Interval history: c/o throbbing pain says he has not been getting IV pain meds - order apparently had dropped off Physical Exam Vital Signs: Vital Signs: Last Vital Signs Temp 97.6 F 01/04/22 11:24 Pulse 99 01/04/22 11:24 Resp 18 01/04/22 11:24 BP 127/83 01/04/22 11:24 Pulse Ox 90 L 01/04/22 11:24 O2 Del Method 01/04/22 07:54 O2 Flow Rate 2 01/03/22 15:44 Oxygen Flow Rate 2 12/29/21 13:00 BMI result Body Mass Index 25.8 Const: General: no acute distress Resp: Effort & Inspection: normal respiratory effort Cardio: Rate: regular rate Extrem: Other: dressings were taken down after given him Dilaudid IV both debridement sites are clean, w/ good granulation dressings changed - silver alginate placed Objective Data Active Medications Acetaminophen (Acetaminophen 325 Mg Tablet) 975 mg PO Q8H PRN PRN Reason: Pain, Mild (Pain Scale 1-3) Last Admin: 01/04/22 08:39 Dose: 975 mg Documented By: SAMSON Albuterol Sulfate (Albuterol Sulfate 90 Mcg 8 Gm Inhaler) 1 puff INHALE RQ4H PRN PRN Reason: asthma Baclofen (Baclofen 10 Mg Tablet) 10 mg PO BID [facility] Last Admin: 01/04/22 08:40 Dose: 10 mg Documented By: SAMSON Docusate Sodium (Docusate Sodium 100 Mg Capsule) 100 mg PO DAILY PRN PRN Reason: Constipation Last Admin: 12/27/21 08:32 Dose: 100 mg Documented By: COTEMA Duloxetine HCl (Duloxetine Hcl 20 Mg Capsule.Dr) 20 mg PO BEDTIME [facility] Last Admin: 01/03/22 19:42 Dose: 20 mg Documented By: NAUMOC Fentanyl (Fentanyl 12 Mcg Patch.Td72) 12 mcg TRANSDERMA Q72H [facility] Last Admin: 01/04/22 10:27 Dose: 12 mcg Documented By: SAMSON Fluticasone/Vilanterol (Fluticasone/Vilanterol 100/25 Blst.W.Dev) 1 puff INHALE DAILY PRN PRN Reason: Shortness Of Breath Gabapentin (Gabapentin 300 Mg Capsule) 300 mg PO QID [facility] Last Admin: 01/04/22 08:40 Dose: 300 mg Documented By: SAMSON Heparin Sodium (Porcine) (Heparin Sodium,Porcine 5,000 Unit/Ml Vial) 5,000 unit SUBCUT Q12H [facility] Last Admin: 01/04/22 09:46 Dose: 5,000 unit Documented By: SAMSON Hydromorphone HCl (Hydromorphone Hcl 0.5 Mg/0.5 Ml Syringe) 0.5 mg IVPUSH Q4H PRN; Protocol PRN Reason: Pain, Mild (Pain Scale 1-3) Morphine Sulfate (Morphine Sulfate 4 Mg/Ml Cartridge) 3 mg IVPUSH Q3H PRN; Protocol PRN Reason: Pain, Severe (Pain Scale 7-10) Last Admin: 01/04/22 11:16 Dose: 3 mg Documented By: SAMSON Ondansetron HCl (Ondansetron Hcl 4 Mg/2 Ml Vial) 4 mg IVPUSH Q8H PRN PRN Reason: Nausea and Vomiting Last Admin: 01/04/22 00:05 Dose: 4 mg Documented By: BAKARI Ondansetron HCl (Ondansetron Hcl 4 Mg/2 Ml Vial) 4 mg IVPUSH ONCE PRN PRN Reason: Nausea and Vomiting Oxycodone HCl (Oxycodone Hcl Immed Release 5 Mg Tablet) 5 mg PO Q4H PRN PRN Reason: Pain, Severe (Pain Scale 7-10) Last Admin: 01/04/22 10:27 Dose: 5 mg Documented By: SAMSON Pharmacy Consult (Consult Rx Perform Med Rec) 1 each MISCELLANE ONCE PRN PRN Reason: Consult order Polyethylene Glycol (Polyethylene Glycol 3350 17 Gm Powd.Pack) 17 gm PO DAILY [facility] Last Admin: 01/04/22 08:46 Dose: Not Given Documented By: SAMSON Non-Admin Reason: Patient Refused Prednisone (Prednisone 10 Mg Tablet) 10 mg PO DAILY [facility]; Taper Stop: 01/08/22 08:59 Last Admin: 01/04/22 08:40 Dose: 10 mg Documented By: SAMSON Sodium Chloride (0.9 % Sodium Chloride Flush 3 Ml Syringe) 3 ml IVFLUSH [facility] Last Admin: 01/04/22 08:39 Dose: 3 ml Documented By: SAMSON Labs CBC & Chem 7: 01/02/22 05:47 01/02/22 05:47 Procedures Date of Service Date of Service: 01/04/22 Progress Note: A&P Assessment and plan (1) Eschar of lower leg: Status: Acute Plan dressings changed silver alginate applied leg wrapped with Kerlix still requiring IV pain meds for dressing change will continue with wound care Time Spent With Patient Time: Total time spent is greater than 50% in coordination of care (as documented) at patient's floor/unit and/or counseling patient: Quality Stroke Does the patient have a stroke diagnosis?: No VTE Prior VTE?: No VTE Risk Level:: Medical - moderate - high VTE Device Contraindication: Treatment Not Indicated VTE Drug Contraindication: N/A - Med Ordered
[2022-01-04] MEDS: HYDROmorphone HCl 0.5 MG/0.5 ML SYRINGE IVPUSH (13:08)
[2022-01-04] MEDS: DULoxetine HCl 20 MG CAPSULE.DR PO (20:35)
[2022-01-05] VITALS (9 sets, daily range): BP systolic 110–151; BP diastolic 74–91; PULSE 70–106; RESP 16–20; TEMP 36.1–36.6; O2SAT 89–95
[2022-01-05] MEDS: Gabapentin 300 MG CAPSULE PO ×4 (09:01→20:19)
[2022-01-05] MEDS: predniSONE 10 MG TABLET PO (09:01)
[2022-01-05] MEDS: Baclofen 10 MG TABLET PO ×2 (09:02→20:19)
[2022-01-05] MEDS: oxyCODONE HCl Immed Release 5 MG TABLET PO ×2 (09:05→14:38)
--- NOTE | 2022-01-05 09:12 | P.PNGS_ITS ---
Subjective Subjective Date of Service: 01/05/22 Interval history: Says he is comfortable Had a relatively good night States he did not require IV pain meds Physical Exam Vital Signs: Vital Signs: Last Vital Signs Temp 97.9 F 01/05/22 07:48 Pulse 74 01/05/22 07:48 Resp 16 01/05/22 07:48 BP 151/84 H 01/05/22 07:48 Pulse Ox 92 01/05/22 07:48 O2 Del Method 01/05/22 07:48 O2 Flow Rate 2 01/03/22 15:44 Oxygen Flow Rate 2 12/29/21 13:00 BMI result Body Mass Index 25.8 Const: General: comfortable and no acute distress Resp: Effort & Inspection: normal respiratory effort Cardio: Rate: regular rate Extrem: Other: Dressings on the left leg clean, dry Objective Data Active Medications Acetaminophen (Acetaminophen 325 Mg Tablet) 975 mg PO Q8H PRN PRN Reason: Pain, Mild (Pain Scale 1-3) Last Admin: 01/04/22 17:00 Dose: 975 mg Documented By: SAMSON Albuterol Sulfate (Albuterol Sulfate 90 Mcg 8 Gm Inhaler) 1 puff INHALE RQ4H PRN PRN Reason: asthma Baclofen (Baclofen 10 Mg Tablet) 10 mg PO BID [facility] Last Admin: 01/05/22 09:02 Dose: 10 mg Documented By: GALE Docusate Sodium (Docusate Sodium 100 Mg Capsule) 100 mg PO DAILY PRN PRN Reason: Constipation Last Admin: 12/27/21 08:32 Dose: 100 mg Documented By: COTEMA Duloxetine HCl (Duloxetine Hcl 20 Mg Capsule.Dr) 20 mg PO BEDTIME [facility] Last Admin: 01/04/22 20:35 Dose: 20 mg Documented By: CASTILM Fentanyl (Fentanyl 12 Mcg Patch.Td72) 12 mcg TRANSDERMA Q72H [facility] Last Admin: 01/04/22 10:27 Dose: 12 mcg Documented By: SAMSON Fluticasone/Vilanterol (Fluticasone/Vilanterol 100/25 Blst.W.Dev) 1 puff INHALE DAILY PRN PRN Reason: Shortness Of Breath Gabapentin (Gabapentin 300 Mg Capsule) 300 mg PO QID [facility] Last Admin: 01/05/22 09:01 Dose: 300 mg Documented By: GALE Heparin Sodium (Porcine) (Heparin Sodium,Porcine 5,000 Unit/Ml Vial) 5,000 unit SUBCUT Q12H [facility] Last Admin: 01/04/22 20:35 Dose: 5,000 unit Documented By: CASTILAleksandr Hydromorphone HCl (Hydromorphone Hcl 0.5 Mg/0.5 Ml Syringe) 0.5 mg IVPUSH Q4H PRN; Protocol PRN Reason: Pain, Mild (Pain Scale 1-3) Last Admin: 01/04/22 13:08 Dose: 0.5 mg Documented By: SAMSON Morphine Sulfate (Morphine Sulfate 4 Mg/Ml Cartridge) 3 mg IVPUSH Q3H PRN; Protocol PRN Reason: Pain, Severe (Pain Scale 7-10) Last Admin: 01/04/22 11:16 Dose: 3 mg Documented By: SAMSON Ondansetron HCl (Ondansetron Hcl 4 Mg/2 Ml Vial) 4 mg IVPUSH Q8H PRN PRN Reason: Nausea and Vomiting Last Admin: 01/04/22 00:05 Dose: 4 mg Documented By: BAKARI Ondansetron HCl (Ondansetron Hcl 4 Mg/2 Ml Vial) 4 mg IVPUSH ONCE PRN PRN Reason: Nausea and Vomiting Oxycodone HCl (Oxycodone Hcl Immed Release 5 Mg Tablet) 5 mg PO Q4H PRN PRN Reason: Pain, Severe (Pain Scale 7-10) Last Admin: 01/05/22 09:05 Dose: 5 mg Documented By: GALE Pharmacy Consult (Consult Rx Perform Med Rec) 1 each MISCELLANE ONCE PRN PRN Reason: Consult order Polyethylene Glycol (Polyethylene Glycol 3350 17 Gm Powd.Pack) 17 gm PO DAILY [facility] Last Admin: 01/05/22 09:01 Dose: Not Given Documented By: GALE Non-Admin Reason: Patient Refused Prednisone (Prednisone 10 Mg Tablet) 10 mg PO DAILY [facility]; Taper Stop: 01/08/22 08:59 Last Admin: 01/05/22 09:01 Dose: 10 mg Documented By: GALE Sodium Chloride (0.9 % Sodium Chloride Flush 3 Ml Syringe) 3 ml IVFLUSH QSHIFT [facility] Last Admin: 01/04/22 20:36 Dose: 3 ml Documented By: KEVON Labs CBC & Chem 7: 01/02/22 05:47 01/02/22 05:47 Procedures Date of Service Date of Service: 01/05/22 Progress Note: A&P Assessment and plan (1) Eschar of lower leg: Status: Acute Assessment and Plan: Status post debridement Dressings were changed yesterday - these appear clean and granulating well He says that he wants to hold off on any dressing change for today because of the pain I will therefore plan on doing his dressing change tomorrow Hopefully, he will require less pain medications Time Spent With Patient Time: Total time spent is greater than 50% in coordination of care (as documented) at patient's floor/unit and/or counseling patient: Quality Stroke Does the patient have a stroke diagnosis?: No VTE Prior VTE?: No VTE Risk Level:: Medical - moderate - high VTE Device Contraindication: Treatment Not Indicated VTE Drug Contraindication: N/A - Med Ordered
[2022-01-05] MEDS: 0.9 % Sodium Chloride Flush 3 ML SYRINGE IVFLUSH ×2 (11:18→16:29)
[2022-01-05] MEDS: Heparin Sodium,Porcine 5,000 UNIT/ML VIAL 5000 UNIT SUBCUT ×2 (11:18→21:58)
--- NOTE | 2022-01-05 11:22 | P.PNIM_ITS ---
Subjective Subjective Date of Service: 01/05/22 Interval History: Seen and examined this morning Follow-up for left lower extremity wounds pain with dressing changes diarrhea Review of Systems Follow up cellulitis Physical Exam Vital Signs: Vital Signs: Last Vital Signs Temp 97.9 F 01/05/22 07:48 Pulse 74 01/05/22 10:33 Resp 16 01/05/22 07:48 BP 151/84 H 01/05/22 10:33 Pulse Ox 92 01/05/22 10:33 O2 Del Method 01/05/22 07:48 O2 Flow Rate 2 01/03/22 15:44 Oxygen Flow Rate 2 12/29/21 13:00 BMI result Body Mass Index 25.8 Appearing in no acute distress lung sounds are clear to auscultation heart regular rate rhythm, clear S1, S2 positive bowel sounds, abdomen is soft, nontender neuro patient is alert x3, no focal deficits Objective Data Active Medications Acetaminophen (Acetaminophen 325 Mg Tablet) 975 mg PO Q8H PRN PRN Reason: Pain, Mild (Pain Scale 1-3) Last Admin: 01/04/22 17:00 Dose: 975 mg Documented By: SAMSON Albuterol Sulfate (Albuterol Sulfate 90 Mcg 8 Gm Inhaler) 1 puff INHALE RQ4H PRN PRN Reason: asthma Baclofen (Baclofen 10 Mg Tablet) 10 mg PO BID [facility] Last Admin: 01/05/22 09:02 Dose: 10 mg Documented By: GALE Docusate Sodium (Docusate Sodium 100 Mg Capsule) 100 mg PO DAILY PRN PRN Reason: Constipation Last Admin: 12/27/21 08:32 Dose: 100 mg Documented By: COTEMA Duloxetine HCl (Duloxetine Hcl 20 Mg Capsule.Dr) 20 mg PO BEDTIME [facility] Last Admin: 01/04/22 20:35 Dose: 20 mg Documented By: CASTILM Fentanyl (Fentanyl 12 Mcg Patch.Td72) 12 mcg TRANSDERMA Q72H [facility] Last Admin: 01/04/22 10:27 Dose: 12 mcg Documented By: SAMSON Fluticasone/Vilanterol (Fluticasone/Vilanterol 100/25 Blst.W.Dev) 1 puff INHALE DAILY PRN PRN Reason: Shortness Of Breath Gabapentin (Gabapentin 300 Mg Capsule) 300 mg PO QID [facility] Last Admin: 01/05/22 09:01 Dose: 300 mg Documented By: GALE Heparin Sodium (Porcine) (Heparin Sodium,Porcine 5,000 Unit/Ml Vial) 5,000 unit SUBCUT Q12H [facility] Last Admin: 01/05/22 11:18 Dose: 5,000 unit Documented By: GALE Hydromorphone HCl (Hydromorphone Hcl 0.5 Mg/0.5 Ml Syringe) 0.5 mg IVPUSH Q4H PRN; Protocol PRN Reason: Pain, Mild (Pain Scale 1-3) Last Admin: 01/04/22 13:08 Dose: 0.5 mg Documented By: SAMSON Morphine Sulfate (Morphine Sulfate 4 Mg/Ml Cartridge) 3 mg IVPUSH Q3H PRN; Protocol PRN Reason: Pain, Severe (Pain Scale 7-10) Last Admin: 01/04/22 11:16 Dose: 3 mg Documented By: SAMSON Ondansetron HCl (Ondansetron Hcl 4 Mg/2 Ml Vial) 4 mg IVPUSH Q8H PRN PRN Reason: Nausea and Vomiting Last Admin: 01/04/22 00:05 Dose: 4 mg Documented By: BAKARI Ondansetron HCl (Ondansetron Hcl 4 Mg/2 Ml Vial) 4 mg IVPUSH ONCE PRN PRN Reason: Nausea and Vomiting Oxycodone HCl (Oxycodone Hcl Immed Release 5 Mg Tablet) 5 mg PO Q4H PRN PRN Reason: Pain, Severe (Pain Scale 7-10) Last Admin: 01/05/22 09:05 Dose: 5 mg Documented By: GALE Pharmacy Consult (Consult Rx Perform Med Rec) 1 each MISCELLANE ONCE PRN PRN Reason: Consult order Polyethylene Glycol (Polyethylene Glycol 3350 17 Gm Powd.Pack) 17 gm PO DAILY [facility] Last Admin: 01/05/22 09:01 Dose: Not Given Documented By: GALE Non-Admin Reason: Patient Refused Prednisone (Prednisone 10 Mg Tablet) 10 mg PO DAILY [facility]; Taper Stop: 01/08/22 08:59 Last Admin: 01/05/22 09:01 Dose: 10 mg Documented By: GALE Sodium Chloride (0.9 % Sodium Chloride Flush 3 Ml Syringe) 3 ml IVFLUSH [facility] Last Admin: 01/05/22 11:18 Dose: 3 ml Documented By: GALE Labs CBC & Chem 7: 01/02/22 05:47 01/02/22 05:47 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 Resolved blood cultures negative ID following rheumatoid arthritis continue home medication as well as prednisone COPD, not in exacerbation continue home inhalers DEACON GFR >60. baseline his cr was 1.2 earlier this year DVT prophylaxis Heparin subQ Attending Dr. Adams Full code DISPO. to STR when medically stable Patient requires continued hospitalization for left leg ulcer s/p debridement IV pain control. Quality Stroke Does the patient have a stroke diagnosis?: No VTE Prior VTE?: No VTE Risk Level:: Medical - moderate - high VTE Device Contraindication: Treatment Not Indicated VTE Drug Contraindication: N/A - Med Ordered
[2022-01-05 14:59] LABS: Leukocytes Stool Qualitative NEGATIVE (NEGATIVE)
[2022-01-05] MEDS: DULoxetine HCl 20 MG CAPSULE.DR PO (20:19)
[2022-01-06] VITALS (7 sets, daily range): BP systolic 112–134; BP diastolic 66–90; PULSE 75–87; RESP 17–18; TEMP 36.3–37; O2SAT 91–96
[2022-01-06] MEDS: 0.9 % Sodium Chloride Flush 3 ML SYRINGE IVFLUSH ×3 (00:52→18:11)
[2022-01-06] MEDS: oxyCODONE HCl Immed Release 5 MG TABLET PO ×3 (00:55→18:23)
[2022-01-06] MEDS: Gabapentin 300 MG CAPSULE PO ×4 (08:21→20:30)
[2022-01-06] MEDS: Baclofen 10 MG TABLET PO ×2 (08:21→20:30)
[2022-01-06] MEDS: predniSONE 10 MG TABLET PO (08:21)
[2022-01-06 08:38] LABS: CDiff Gene PCR NEGATIVE (Negative)
--- NOTE | 2022-01-06 10:04 | P.PNIM_ITS ---
Subjective Subjective Date of Service: 01/06/22 Interval History: Seen and examined this morning Follow-up for left lower extremity wounds pain with dressing changes diarrhea Review of Systems Follow up cellulitis Physical Exam Vital Signs: Vital Signs: Last Vital Signs Temp 98.2 F 01/06/22 07:41 Pulse 76 01/06/22 07:41 Resp 18 01/06/22 07:41 BP 131/88 01/06/22 07:41 Pulse Ox 96 01/06/22 07:41 O2 Del Method 01/06/22 07:41 O2 Flow Rate 2 01/03/22 15:44 Oxygen Flow Rate 2 12/29/21 13:00 BMI result Body Mass Index 25.8 Appearing in no acute distress lung sounds are clear to auscultation heart regular rate rhythm, clear S1, S2 positive bowel sounds, abdomen is soft, nontender neuro patient is alert x3, no focal deficits Objective Data Active Medications Acetaminophen (Acetaminophen 325 Mg Tablet) 975 mg PO Q8H PRN PRN Reason: Pain, Mild (Pain Scale 1-3) Last Admin: 01/04/22 17:00 Dose: 975 mg Documented By: SAMSON Albuterol Sulfate (Albuterol Sulfate 90 Mcg 8 Gm Inhaler) 1 puff INHALE RQ4H PRN PRN Reason: asthma Baclofen (Baclofen 10 Mg Tablet) 10 mg PO BID [facility] Last Admin: 01/06/22 08:21 Dose: 10 mg Documented By: FLORESITA Docusate Sodium (Docusate Sodium 100 Mg Capsule) 100 mg PO DAILY PRN PRN Reason: Constipation Last Admin: 12/27/21 08:32 Dose: 100 mg Documented By: COTEMA Duloxetine HCl (Duloxetine Hcl 20 Mg Capsule.Dr) 20 mg PO BEDTIME [facility] Last Admin: 01/05/22 20:19 Dose: 20 mg Documented By: ARTEMIO Fentanyl (Fentanyl 12 Mcg Patch.Td72) 12 mcg TRANSDERMA Q72H [facility] Last Admin: 01/04/22 10:27 Dose: 12 mcg Documented By: SAMSON Fluticasone/Vilanterol (Fluticasone/Vilanterol 100/25 Blst.W.Dev) 1 puff INHALE DAILY PRN PRN Reason: Shortness Of Breath Gabapentin (Gabapentin 300 Mg Capsule) 300 mg PO QID [facility] Last Admin: 01/06/22 08:21 Dose: 300 mg Documented By: FLORESITA Heparin Sodium (Porcine) (Heparin Sodium,Porcine 5,000 Unit/Ml Vial) 5,000 unit SUBCUT Q12H [facility] Last Admin: 01/05/22 21:58 Dose: 5,000 unit Documented By: ARTEMIO Hydromorphone HCl (Hydromorphone Hcl 0.5 Mg/0.5 Ml Syringe) 0.5 mg IVPUSH Q4H PRN; Protocol PRN Reason: Pain, Mild (Pain Scale 1-3) Last Admin: 01/04/22 13:08 Dose: 0.5 mg Documented By: SAMSON Morphine Sulfate (Morphine Sulfate 4 Mg/Ml Cartridge) 3 mg IVPUSH Q3H PRN; Protocol PRN Reason: Pain, Severe (Pain Scale 7-10) Last Admin: 01/04/22 11:16 Dose: 3 mg Documented By: SASMON Ondansetron HCl (Ondansetron Hcl 4 Mg/2 Ml Vial) 4 mg IVPUSH Q8H PRN PRN Reason: Nausea and Vomiting Last Admin: 01/04/22 00:05 Dose: 4 mg Documented By: BAKARI Ondansetron HCl (Ondansetron Hcl 4 Mg/2 Ml Vial) 4 mg IVPUSH ONCE PRN PRN Reason: Nausea and Vomiting Oxycodone HCl (Oxycodone Hcl Immed Release 5 Mg Tablet) 5 mg PO Q4H PRN PRN Reason: Pain, Severe (Pain Scale 7-10) Last Admin: 01/06/22 00:55 Dose: 5 mg Documented By: ISABEL Pharmacy Consult (Consult Rx Perform Med Rec) 1 each MISCELLANE ONCE PRN PRN Reason: Consult order Polyethylene Glycol (Polyethylene Glycol 3350 17 Gm Powd.Pack) 17 gm PO DAILY [facility] Last Admin: 01/06/22 08:31 Dose: Not Given Documented By: FLORESITA Non-Admin Reason: Patient Refused Prednisone (Prednisone 10 Mg Tablet) 10 mg PO DAILY [facility]; Taper Stop: 01/08/22 08:59 Last Admin: 01/06/22 08:21 Dose: 10 mg Documented By: FLORESITA Sodium Chloride (0.9 % Sodium Chloride Flush 3 Ml Syringe) 3 ml IVFLUSH [facility] Last Admin: 01/06/22 08:26 Dose: 3 ml Documented By: FLORESITA Labs CBC & Chem 7: 01/02/22 05:47 01/02/22 05:47 Labs: Laboratory Results - last 24 hr 01/05/22 01/05/22 Unknown Unknown Stool Leukocytes, Qual NEGATIVE C. 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 subsiding Likely from recent antibiotics check stool studies including cdiff-negative Cellulitis. Resolved blood cultures negative ID following rheumatoid arthritis continue home medication as well as prednisone COPD, not in exacerbation continue home inhalers DEACON GFR >60. baseline his cr was 1.2 earlier this year DVT prophylaxis Heparin subQ Attending Dr. Adams Full code DISPO. to STR when medically stable Patient requires continued hospitalization for left leg ulcer s/p debridement IV pain control. Quality Stroke Does the patient have a stroke diagnosis?: No VTE Prior VTE?: No VTE Risk Level:: Medical - moderate - high VTE Device Contraindication: Treatment Not Indicated VTE Drug Contraindication: N/A - Med Ordered
[2022-01-06] MEDS: HYDROmorphone HCl 0.5 MG/0.5 ML SYRINGE IVPUSH (11:27)
[2022-01-06] MEDS: Heparin Sodium,Porcine 5,000 UNIT/ML VIAL 5000 UNIT SUBCUT ×2 (11:31→20:30)
[2022-01-06] MEDS: Morphine Sulfate 4 MG/ML CARTRIDGE 3 MG IVPUSH (12:59)
--- NOTE | 2022-01-06 15:10 | P.PNGS_ITS ---
Subjective Subjective Date of Service: 01/06/22 Interval history: New complaints Says he has better range of motion on his foot and ankle leg Physical Exam Vital Signs: Vital Signs: Last Vital Signs Temp 97.4 F 01/06/22 11:29 Pulse 78 01/06/22 12:31 Resp 17 01/06/22 11:29 BP 126/90 H 01/06/22 12:31 Pulse Ox 93 01/06/22 12:31 O2 Del Method 01/06/22 11:29 O2 Flow Rate 2 01/03/22 15:44 Oxygen Flow Rate 2 12/29/21 13:00 BMI result Body Mass Index 25.8 Const: General: comfortable and no acute distress Resp: Effort & Inspection: normal respiratory effort Cardio: Rate: regular rate GI: Palpation (GI): Soft to palpation and nontender Extrem: Other: Dressings taken down, ulcers examined; both debrided areas granulating well, edema better; he did have a severe throbbing pain after dressing change Objective Data Active Medications Acetaminophen (Acetaminophen 325 Mg Tablet) 975 mg PO Q8H PRN PRN Reason: Pain, Mild (Pain Scale 1-3) Last Admin: 01/04/22 17:00 Dose: 975 mg Documented By: SAMSON Albuterol Sulfate (Albuterol Sulfate 90 Mcg 8 Gm Inhaler) 1 puff INHALE RQ4H PRN PRN Reason: asthma Baclofen (Baclofen 10 Mg Tablet) 10 mg PO BID [facility] Last Admin: 01/06/22 08:21 Dose: 10 mg Documented By: FLORESITA Docusate Sodium (Docusate Sodium 100 Mg Capsule) 100 mg PO DAILY PRN PRN Reason: Constipation Last Admin: 12/27/21 08:32 Dose: 100 mg Documented By: COTEMA Duloxetine HCl (Duloxetine Hcl 20 Mg Capsule.Dr) 20 mg PO BEDTIME [facility] Last Admin: 01/05/22 20:19 Dose: 20 mg Documented By: BEIT Fentanyl (Fentanyl 12 Mcg Patch.Td72) 12 mcg TRANSDERMA Q72H [facility] Last Admin: 01/04/22 10:27 Dose: 12 mcg Documented By: SAMSON Fluticasone/Vilanterol (Fluticasone/Vilanterol 100/25 Blst.W.Dev) 1 puff INHALE DAILY PRN PRN Reason: Shortness Of Breath Gabapentin (Gabapentin 300 Mg Capsule) 300 mg PO QID [facility] Last Admin: 01/06/22 13:00 Dose: 300 mg Documented By: FLORESITA Heparin Sodium (Porcine) (Heparin Sodium,Porcine 5,000 Unit/Ml Vial) 5,000 unit SUBCUT Q12H [facility] Last Admin: 01/06/22 11:31 Dose: 5,000 unit Documented By: FLORESITA Hydromorphone HCl (Hydromorphone Hcl 0.5 Mg/0.5 Ml Syringe) 0.5 mg IVPUSH Q4H PRN; Protocol PRN Reason: Pain, Mild (Pain Scale 1-3) Last Admin: 01/06/22 11:27 Dose: 0.5 mg Documented By: FLORESITA Morphine Sulfate (Morphine Sulfate 4 Mg/Ml Cartridge) 3 mg IVPUSH Q3H PRN; Protocol PRN Reason: Pain, Severe (Pain Scale 7-10) Last Admin: 01/06/22 12:59 Dose: 3 mg Documented By: FLORESITA Ondansetron HCl (Ondansetron Hcl 4 Mg/2 Ml Vial) 4 mg IVPUSH Q8H PRN PRN Reason: Nausea and Vomiting Last Admin: 01/04/22 00:05 Dose: 4 mg Documented By: BAKARI Ondansetron HCl (Ondansetron Hcl 4 Mg/2 Ml Vial) 4 mg IVPUSH ONCE PRN PRN Reason: Nausea and Vomiting Oxycodone HCl (Oxycodone Hcl Immed Release 5 Mg Tablet) 5 mg PO Q4H PRN PRN Reason: Pain, Severe (Pain Scale 7-10) Last Admin: 01/06/22 11:28 Dose: 5 mg Documented By: FLORESITA Pharmacy Consult (Consult Rx Perform Med Rec) 1 each MISCELLANE ONCE PRN PRN Reason: Consult order Polyethylene Glycol (Polyethylene Glycol 3350 17 Gm Powd.Pack) 17 gm PO DAILY [facility] Last Admin: 01/06/22 08:31 Dose: Not Given Documented By: FLORESITA Non-Admin Reason: Patient Refused Prednisone (Prednisone 10 Mg Tablet) 10 mg PO DAILY [facility]; Taper Stop: 01/08/22 08:59 Last Admin: 01/06/22 08:21 Dose: 10 mg Documented By: FLORESITA Sodium Chloride (0.9 % Sodium Chloride Flush 3 Ml Syringe) 3 ml IVFLUSH QSHIFT [facility] Last Admin: 01/06/22 08:26 Dose: 3 ml Documented By: FLORESITA Labs CBC & Chem 7: 01/02/22 05:47 01/02/22 05:47 Labs: Laboratory Results - last 24 hr 01/05/22 Unknown C. difficile Tox B Gene NEGATIVE Procedures Date of Service Date of Service: 01/06/22 Progress Note: A&P Assessment and plan (1) Eschar of lower leg: Status: Acute Assessment and Plan: Status post debridement of ulcers I have changes dressings He has improved significantly but still requires IV pain medications with dressing changes I have applied silver alginate dressings to the debrided areas With change dressings again- needs pre medication with IV pain meds with dressing changes Time Spent With Patient Time: Total time spent is greater than 50% in coordination of care (as documented) at patient's floor/unit and/or counseling patient: Quality Stroke Does the patient have a stroke diagnosis?: No VTE Prior VTE?: No VTE Risk Level:: Medical - moderate - high VTE Device Contraindication: Treatment Not Indicated VTE Drug Contraindication: N/A - Med Ordered
[2022-01-06] MEDS: DULoxetine HCl 20 MG CAPSULE.DR PO (20:30)
[2022-01-07] VITALS (7 sets, daily range): BP systolic 96–133; BP diastolic 63–83; PULSE 73–85; RESP 16–19; TEMP 36–37.1; O2SAT 92–96
[2022-01-07] MEDS: Baclofen 10 MG TABLET PO ×2 (07:44→21:35)
[2022-01-07] MEDS: predniSONE 10 MG TABLET PO (07:44)
[2022-01-07] MEDS: oxyCODONE HCl Immed Release 5 MG TABLET PO ×2 (07:44→13:47)
[2022-01-07] MEDS: Gabapentin 300 MG CAPSULE PO ×4 (07:44→21:35)
[2022-01-07] MEDS: Acetaminophen 325 MG TABLET 975 MG PO (07:45)
--- NOTE | 2022-01-07 08:31 | PM.PNGS ---
Subjective Subjective Date of Service: 01/07/22 Interval history: No new complaints Had a good night Physical Exam Vital Signs: Vital Signs: Last Vital Signs Temp 98.6 F 01/07/22 08:00 Pulse 79 01/07/22 08:00 Resp 16 01/07/22 08:00 BP 123/82 01/07/22 08:00 Pulse Ox 92 01/07/22 08:00 O2 Del Method 01/07/22 08:00 O2 Flow Rate 2 01/03/22 15:44 Oxygen Flow Rate 2 12/29/21 13:00 BMI result Body Mass Index 25.8 Const: General: comfortable and no acute distress Resp: Effort & Inspection: normal respiratory effort Extrem: Other: Dressings dry Foot edema has resolved Objective Data Active Medications Acetaminophen (Acetaminophen 325 Mg Tablet) 975 mg PO Q8H PRN PRN Reason: Pain, Mild (Pain Scale 1-3) Last Admin: 01/07/22 07:45 Dose: 975 mg Documented By: GALE Albuterol Sulfate (Albuterol Sulfate 90 Mcg 8 Gm Inhaler) 1 puff INHALE RQ4H PRN PRN Reason: asthma Baclofen (Baclofen 10 Mg Tablet) 10 mg PO BID [facility] Last Admin: 01/07/22 07:44 Dose: 10 mg Documented By: GALE Docusate Sodium (Docusate Sodium 100 Mg Capsule) 100 mg PO DAILY PRN PRN Reason: Constipation Last Admin: 12/27/21 08:32 Dose: 100 mg Documented By: COTEMA Duloxetine HCl (Duloxetine Hcl 20 Mg Capsule.Dr) 20 mg PO BEDTIME [facility] Last Admin: 01/06/22 20:30 Dose: 20 mg Documented By: BEIT Fentanyl (Fentanyl 12 Mcg Patch.Td72) 12 mcg TRANSDERMA Q72H [facility] Last Admin: 01/04/22 10:27 Dose: 12 mcg Documented By: N-ARMKA Fluticasone/Vilanterol (Fluticasone/Vilanterol 100/25 Blst.W.Dev) 1 puff INHALE DAILY PRN PRN Reason: Shortness Of Breath Gabapentin (Gabapentin 300 Mg Capsule) 300 mg PO QID [facility] Last Admin: 01/07/22 07:44 Dose: 300 mg Documented By: GALE Heparin Sodium (Porcine) (Heparin Sodium,Porcine 5,000 Unit/Ml Vial) 5,000 unit SUBCUT Q12H [facility] Last Admin: 01/06/22 20:30 Dose: 5,000 unit Documented By: ARTEMIO Hydromorphone HCl (Hydromorphone Hcl 0.5 Mg/0.5 Ml Syringe) 0.5 mg IVPUSH Q4H PRN; Protocol PRN Reason: Pain, Mild (Pain Scale 1-3) Last Admin: 01/06/22 11:27 Dose: 0.5 mg Documented By: FLORESITA Morphine Sulfate (Morphine Sulfate 4 Mg/Ml Cartridge) 3 mg IVPUSH Q3H PRN; Protocol PRN Reason: Pain, Severe (Pain Scale 7-10) Last Admin: 01/06/22 12:59 Dose: 3 mg Documented By: FLORESITA Ondansetron HCl (Ondansetron Hcl 4 Mg/2 Ml Vial) 4 mg IVPUSH Q8H PRN PRN Reason: Nausea and Vomiting Last Admin: 01/04/22 00:05 Dose: 4 mg Documented By: BAKARI Ondansetron HCl (Ondansetron Hcl 4 Mg/2 Ml Vial) 4 mg IVPUSH ONCE PRN PRN Reason: Nausea and Vomiting Oxycodone HCl (Oxycodone Hcl Immed Release 5 Mg Tablet) 5 mg PO Q4H PRN PRN Reason: Pain, Severe (Pain Scale 7-10) Last Admin: 01/07/22 07:44 Dose: 5 mg Documented By: GALE Pharmacy Consult (Consult Rx Perform Med Rec) 1 each MISCELLANE ONCE PRN PRN Reason: Consult order Polyethylene Glycol (Polyethylene Glycol 3350 17 Gm Powd.Pack) 17 gm PO DAILY [facility] Last Admin: 01/06/22 08:31 Dose: Not Given Documented By: FLORESITA Non-Admin Reason: Patient Refused Prednisone (Prednisone 10 Mg Tablet) 10 mg PO DAILY [facility]; Taper Stop: 01/08/22 08:59 Last Admin: 01/07/22 07:44 Dose: 10 mg Documented By: GALE Sodium Chloride (0.9 % Sodium Chloride Flush 3 Ml Syringe) 3 ml IVFLUSH QSHIFT [facility] Last Admin: 01/07/22 00:15 Dose: Not Given Documented By: KESHA Non-Admin Reason: Previously Administered Labs CBC & Chem 7: 01/02/22 05:47 01/02/22 05:47 Labs: Laboratory Results - last 24 hr 01/05/22 Unknown C. difficile Tox B Gene NEGATIVE Procedures Date of Service Date of Service: 01/07/22 Progress Note: A&P Assessment and plan (1) Eschar of lower leg: Status: Acute Assessment and Plan: Status post debridement Has been doing much better Main issue now is severe pain with dressing changes Scheduled to have another dressing change tomorrow - will see if he can tolerate this with high doses of oral narcotics Time Spent With Patient Time: Total time spent is greater than 50% in coordination of care (as documented) at patient's floor/unit and/or counseling patient: Quality Stroke Does the patient have a stroke diagnosis?: No VTE Prior VTE?: No VTE Risk Level:: Medical - moderate - high VTE Device Contraindication: Treatment Not Indicated VTE Drug Contraindication: N/A - Med Ordered
[2022-01-07] MEDS: 0.9 % Sodium Chloride Flush 3 ML SYRINGE IVFLUSH ×2 (10:59→15:40)
[2022-01-07] MEDS: Heparin Sodium,Porcine 5,000 UNIT/ML VIAL 5000 UNIT SUBCUT ×2 (10:59→21:35)
[2022-01-07] MEDS: fentaNYL 12 MCG PATCH.TD72 TRANSDERMA (11:00)
--- NOTE | 2022-01-07 11:30 | P.PNIM_ITS ---
Subjective Subjective Date of Service: 01/07/22 Interval History: Seen and examined this morning Follow-up for left lower extremity wounds pain with dressing changes Review of Systems Follow up cellulitis Physical Exam Vital Signs: Vital Signs: Last Vital Signs Temp 98.6 F 01/07/22 08:00 Pulse 79 01/07/22 08:00 Resp 16 01/07/22 08:00 BP 123/82 01/07/22 08:00 Pulse Ox 92 01/07/22 08:00 O2 Del Method 01/07/22 08:00 O2 Flow Rate 2 01/03/22 15:44 Oxygen Flow Rate 2 12/29/21 13:00 BMI result Body Mass Index 25.8 Appearing in no acute distress lung sounds are clear to auscultation heart regular rate rhythm, clear S1, S2 positive bowel sounds, abdomen is soft, nontender neuro patient is alert x3, no focal deficits large Left leg granulating wounds to calf and anterior ankle, wound bed pink, surrounding tissue intact Objective Data Active Medications Acetaminophen (Acetaminophen 325 Mg Tablet) 975 mg PO Q8H PRN PRN Reason: Pain, Mild (Pain Scale 1-3) Last Admin: 01/07/22 07:45 Dose: 975 mg Documented By: GALE Albuterol Sulfate (Albuterol Sulfate 90 Mcg 8 Gm Inhaler) 1 puff INHALE RQ4H PRN PRN Reason: asthma Baclofen (Baclofen 10 Mg Tablet) 10 mg PO BID [facility] Last Admin: 01/07/22 07:44 Dose: 10 mg Documented By: GALE Docusate Sodium (Docusate Sodium 100 Mg Capsule) 100 mg PO DAILY PRN PRN Reason: Constipation Last Admin: 12/27/21 08:32 Dose: 100 mg Documented By: COTEMA Duloxetine HCl (Duloxetine Hcl 20 Mg Capsule.Dr) 20 mg PO BEDTIME [facility] Last Admin: 01/06/22 20:30 Dose: 20 mg Documented By: BEIT Fentanyl (Fentanyl 12 Mcg Patch.Td72) 12 mcg TRANSDERMA Q72H [facility] Last Admin: 01/07/22 11:00 Dose: 12 mcg Documented By: GALE Comments: old patch removed from left upper arm witness Nafisa Arteaga Fluticasone/Vilanterol (Fluticasone/Vilanterol 100/25 Blst.W.Dev) 1 puff INHALE DAILY PRN PRN Reason: Shortness Of Breath Gabapentin (Gabapentin 300 Mg Capsule) 300 mg PO QID [facility] Last Admin: 01/07/22 07:44 Dose: 300 mg Documented By: GALE Heparin Sodium (Porcine) (Heparin Sodium,Porcine 5,000 Unit/Ml Vial) 5,000 unit SUBCUT Q12H [facility] Last Admin: 01/07/22 10:59 Dose: 5,000 unit Documented By: GALE Hydromorphone HCl (Hydromorphone Hcl 0.5 Mg/0.5 Ml Syringe) 0.5 mg IVPUSH Q4H PRN; Protocol PRN Reason: Pain, Mild (Pain Scale 1-3) Last Admin: 01/06/22 11:27 Dose: 0.5 mg Documented By: FLORESITA Morphine Sulfate (Morphine Sulfate 4 Mg/Ml Cartridge) 3 mg IVPUSH Q3H PRN; Protocol PRN Reason: Pain, Severe (Pain Scale 7-10) Last Admin: 01/06/22 12:59 Dose: 3 mg Documented By: FLORESITA Ondansetron HCl (Ondansetron Hcl 4 Mg/2 Ml Vial) 4 mg IVPUSH Q8H PRN PRN Reason: Nausea and Vomiting Last Admin: 01/04/22 00:05 Dose: 4 mg Documented By: BAKARI Ondansetron HCl (Ondansetron Hcl 4 Mg/2 Ml Vial) 4 mg IVPUSH ONCE PRN PRN Reason: Nausea and Vomiting Oxycodone HCl (Oxycodone Hcl Immed Release 5 Mg Tablet) 5 mg PO Q4H PRN PRN Reason: Pain, Severe (Pain Scale 7-10) Last Admin: 01/07/22 07:44 Dose: 5 mg Documented By: GALE Pharmacy Consult (Consult Rx Perform Med Rec) 1 each MISCELLANE ONCE PRN PRN Reason: Consult order Polyethylene Glycol (Polyethylene Glycol 3350 17 Gm Powd.Pack) 17 gm PO DAILY [facility] Last Admin: 01/07/22 09:25 Dose: Not Given Documented By: GALE Non-Admin Reason: Patient Refused Prednisone (Prednisone 10 Mg Tablet) 10 mg PO DAILY [facility]; Taper Stop: 01/08/22 08:59 Last Admin: 01/07/22 07:44 Dose: 10 mg Documented By: GALE Sodium Chloride (0.9 % Sodium Chloride Flush 3 Ml Syringe) 3 ml IVFLUSH QSHIFT [facility] Last Admin: 01/07/22 10:59 Dose: 3 ml Documented By: GALE Labs CBC & Chem 7: 01/02/22 05:47 01/02/22 05:47 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 presents to the hospital of complaints of worsening pain on his left lower leg Nonhealing wound of left lower extremity Biopsy of the area showing soft tissue gangrenous necrosis, no osteomyelitis on CT s/p surgical debridement 01/02/22 Initially on IV antibiotics- vanco,zosyn switched to doxy/augmentin Day #8 , completed course local wound care as per general surgery pain control still an issue especially with dressing changes but slowly improving Diarrhea. resolved Likely from recent antibiotics check stool studies including cdiff-negative Cellulitis. Resolved blood cultures negative ID following rheumatoid arthritis continue home medication as well as prednisone COPD, not in exacerbation continue home inhalers DEACON GFR >60. baseline his cr was 1.2 earlier this year DVT prophylaxis Heparin subQ Attending Dr. Adams Full code DISPO. to STR when medically stable Patient requires continued hospitalization for left leg ulcer s/p debridement IV pain control. Quality Stroke Does the patient have a stroke diagnosis?: No VTE Prior VTE?: No VTE Risk Level:: Medical - moderate - high VTE Device Contraindication: Treatment Not Indicated VTE Drug Contraindication: N/A - Med Ordered
[2022-01-07] MEDS: DULoxetine HCl 20 MG CAPSULE.DR PO (21:35)
[2022-01-08] MEDS: 0.9 % Sodium Chloride Flush 3 ML SYRINGE IVFLUSH ×3 (00:17→16:47)
[2022-01-08 04:00] VITALS: BP 117/81; PULSE 70; RESP 17; TEMP 37.1; O2SAT 96
[2022-01-08 07:27] VITALS: BP 105/68; PULSE 68; RESP 18; TEMP 36.1; O2SAT 90
--- NOTE | 2022-01-08 08:30 | P.PNIM_ITS ---
Subjective Subjective Date of Service: 01/08/22 Interval History: Seen and examined this morning Follow-up for left lower extremity wounds pain with dressing changes more throbbing today to wound area especially with movement Review of Systems Follow up cellulitis Physical Exam Vital Signs: Vital Signs: Last Vital Signs Temp 97 F 01/08/22 07:27 Pulse 68 01/08/22 07:27 Resp 18 01/08/22 07:27 BP 105/68 01/08/22 07:27 Pulse Ox 90 L 01/08/22 07:27 O2 Del Method 01/08/22 07:27 O2 Flow Rate 2 01/03/22 15:44 Oxygen Flow Rate 2 12/29/21 13:00 BMI result Body Mass Index 25.8 Appearing in no acute distress lung sounds are clear to auscultation heart regular rate rhythm, clear S1, S2 positive bowel sounds, abdomen is soft, nontender neuro patient is alert x3, no focal deficits large Left leg granulating wounds to calf and anterior ankle, wound bed pink, surrounding tissue intact ? Objective Data Active Medications Acetaminophen (Acetaminophen 325 Mg Tablet) 975 mg PO Q8H PRN PRN Reason: Pain, Mild (Pain Scale 1-3) Last Admin: 01/07/22 07:45 Dose: 975 mg Documented By: GALE Albuterol Sulfate (Albuterol Sulfate 90 Mcg 8 Gm Inhaler) 1 puff INHALE RQ4H PRN PRN Reason: asthma Baclofen (Baclofen 10 Mg Tablet) 10 mg PO BID [facility] Last Admin: 01/07/22 21:35 Dose: 10 mg Documented By: ARTEMIO Docusate Sodium (Docusate Sodium 100 Mg Capsule) 100 mg PO DAILY PRN PRN Reason: Constipation Last Admin: 12/27/21 08:32 Dose: 100 mg Documented By: COTEMA Duloxetine HCl (Duloxetine Hcl 20 Mg Capsule.Dr) 20 mg PO BEDTIME [facility] Last Admin: 01/07/22 21:35 Dose: 20 mg Documented By: ARTEMIO Fentanyl (Fentanyl 12 Mcg Patch.Td72) 12 mcg TRANSDERMA Q72H [facility] Last Admin: 01/07/22 11:00 Dose: 12 mcg Documented By: GALE Comments: old patch removed from left upper arm witness Nafisa Arteaga Fluticasone/Vilanterol (Fluticasone/Vilanterol 100/25 Blst.W.Dev) 1 puff INHALE DAILY PRN PRN Reason: Shortness Of Breath Gabapentin (Gabapentin 300 Mg Capsule) 300 mg PO QID [facility] Last Admin: 01/07/22 21:35 Dose: 300 mg Documented By: ARTEMIO Heparin Sodium (Porcine) (Heparin Sodium,Porcine 5,000 Unit/Ml Vial) 5,000 unit SUBCUT Q12H [facility] Last Admin: 01/07/22 21:35 Dose: 5,000 unit Documented By: ARTEMIO Hydromorphone HCl (Hydromorphone Hcl 0.5 Mg/0.5 Ml Syringe) 0.5 mg IVPUSH Q4H PRN; Protocol PRN Reason: Pain, Mild (Pain Scale 1-3) Last Admin: 01/06/22 11:27 Dose: 0.5 mg Documented By: FLORESITA Morphine Sulfate (Morphine Sulfate 4 Mg/Ml Cartridge) 3 mg IVPUSH Q3H PRN; Protocol PRN Reason: Pain, Severe (Pain Scale 7-10) Last Admin: 01/06/22 12:59 Dose: 3 mg Documented By: FLORESITA Ondansetron HCl (Ondansetron Hcl 4 Mg/2 Ml Vial) 4 mg IVPUSH Q8H PRN PRN Reason: Nausea and Vomiting Last Admin: 01/04/22 00:05 Dose: 4 mg Documented By: BAKARI Ondansetron HCl (Ondansetron Hcl 4 Mg/2 Ml Vial) 4 mg IVPUSH ONCE PRN PRN Reason: Nausea and Vomiting Oxycodone HCl (Oxycodone Hcl Immed Release 5 Mg Tablet) 5 mg PO Q4H PRN PRN Reason: Pain, Severe (Pain Scale 7-10) Last Admin: 01/07/22 13:47 Dose: 5 mg Documented By: GALE Pharmacy Consult (Consult Rx Perform Med Rec) 1 each MISCELLANE ONCE PRN PRN Reason: Consult order Polyethylene Glycol (Polyethylene Glycol 3350 17 Gm Powd.Pack) 17 gm PO DAILY [facility] Last Admin: 01/07/22 09:25 Dose: Not Given Documented By: GALE Non-Admin Reason: Patient Refused Prednisone (Prednisone 10 Mg Tablet) 10 mg PO DAILY [facility]; Taper Stop: 01/08/22 08:59 Last Admin: 01/07/22 07:44 Dose: 10 mg Documented By: GALE Sodium Chloride (0.9 % Sodium Chloride Flush 3 Ml Syringe) 3 ml IVFLUSH QSHIFT [facility] Last Admin: 01/08/22 00:17 Dose: 3 ml Documented By: ISABEL Labs CBC & Chem 7: 01/02/22 05:47 01/02/22 05:47 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 presents to the hospital of complaints of worsening pain on his left lower leg Nonhealing wound of left lower extremity Biopsy of the area showing soft tissue gangrenous necrosis, no osteomyelitis on CT s/p surgical debridement 01/02/22 Initially on IV antibiotics- vanco,zosyn switched to doxy/augmentin, completed course local wound care as per general surgery pain control still an issue especially with dressing changes but slowly improving Diarrhea. resolved Likely from recent antibiotics check stool studies including cdiff-negative Cellulitis. Resolved blood cultures negative ID following rheumatoid arthritis continue home medication as well as prednisone COPD, not in exacerbation continue home inhalers DEACON GFR >60. baseline his cr was 1.2 earlier this year DVT prophylaxis Heparin subQ Attending Dr. Adams Full code DISPO. to STR when medically stable Patient requires continued hospitalization for left leg ulcer s/p debridement IV pain control. Quality Stroke Does the patient have a stroke diagnosis?: No VTE Prior VTE?: No VTE Risk Level:: Medical - moderate - high VTE Device Contraindication: Treatment Not Indicated VTE Drug Contraindication: N/A - Med Ordered
[2022-01-08] MEDS: Baclofen 10 MG TABLET PO ×2 (09:14→20:36)
[2022-01-08] MEDS: Gabapentin 300 MG CAPSULE PO ×4 (09:14→20:36)
[2022-01-08] MEDS: Heparin Sodium,Porcine 5,000 UNIT/ML VIAL 5000 UNIT SUBCUT ×2 (09:15→23:29)
[2022-01-08] MEDS: oxyCODONE HCl Immed Release 5 MG TABLET PO (10:04)
[2022-01-08 11:25] VITALS: BP 105/80; PULSE 84; RESP 18; TEMP 36.5; O2SAT 89
[2022-01-08] MEDS: Morphine Sulfate 4 MG/ML CARTRIDGE 3 MG IVPUSH ×2 (11:35→20:36)
[2022-01-08] MEDS: HYDROmorphone HCl 0.5 MG/0.5 ML SYRINGE IVPUSH (12:27)
--- NOTE | 2022-01-08 12:53 | MHC.CM.PN ---
[facility] UPDATED. PLAN IS PAIN MANAGEMENT AND DRESSING CHANGES. CM FOLLOWING FOR DC
--- NOTE | 2022-01-08 12:54 | PM.PNGS ---
Subjective Subjective Date of Service: 01/08/22 Interval history: no new complaints occasional throbbing pain on lower leg on left Physical Exam Vital Signs: Vital Signs: Last Vital Signs Temp 97.7 F 01/08/22 11:25 Pulse 84 01/08/22 11:25 Resp 18 01/08/22 11:25 BP 105/80 01/08/22 11:25 Pulse Ox 89 L 01/08/22 11:25 O2 Del Method 01/08/22 11:25 O2 Flow Rate 2 01/03/22 15:44 Oxygen Flow Rate 2 12/29/21 13:00 BMI result Body Mass Index 25.8 Const: General: comfortable and no acute distress Resp: Effort & Inspection: normal respiratory effort Extrem: Other: dressings taken down after premedication with Morphine and Oxycodobe; debrided area clean, granulating, no cellultic changes but he had a lot of pain with removal of dressings Objective Data Active Medications Acetaminophen (Acetaminophen 325 Mg Tablet) 975 mg PO Q8H PRN PRN Reason: Pain, Mild (Pain Scale 1-3) Last Admin: 01/07/22 07:45 Dose: 975 mg Documented By: GALE Albuterol Sulfate (Albuterol Sulfate 90 Mcg 8 Gm Inhaler) 1 puff INHALE RQ4H PRN PRN Reason: asthma Baclofen (Baclofen 10 Mg Tablet) 10 mg PO BID [facility] Last Admin: 01/08/22 09:14 Dose: 10 mg Documented By: GALE Docusate Sodium (Docusate Sodium 100 Mg Capsule) 100 mg PO DAILY PRN PRN Reason: Constipation Last Admin: 12/27/21 08:32 Dose: 100 mg Documented By: COTEMA Duloxetine HCl (Duloxetine Hcl 20 Mg Capsule.Dr) 20 mg PO BEDTIME [facility] Last Admin: 01/07/22 21:35 Dose: 20 mg Documented By: BEFLOYD Fentanyl (Fentanyl 12 Mcg Patch.Td72) 12 mcg TRANSDERMA Q72H [facility] Last Admin: 01/07/22 11:00 Dose: 12 mcg Documented By: GALE Comments: old patch removed from left upper arm witness Nafisa Arteaga Fluticasone/Vilanterol (Fluticasone/Vilanterol 100/25 Blst.W.Dev) 1 puff INHALE DAILY PRN PRN Reason: Shortness Of Breath Gabapentin (Gabapentin 300 Mg Capsule) 300 mg PO QID [facility] Last Admin: 01/08/22 12:27 Dose: 300 mg Documented By: GALE Heparin Sodium (Porcine) (Heparin Sodium,Porcine 5,000 Unit/Ml Vial) 5,000 unit SUBCUT Q12H [facility] Last Admin: 01/08/22 09:15 Dose: 5,000 unit Documented By: GALE Hydromorphone HCl (Hydromorphone Hcl 0.5 Mg/0.5 Ml Syringe) 0.5 mg IVPUSH Q4H PRN; Protocol PRN Reason: Pain, Mild (Pain Scale 1-3) Last Admin: 01/08/22 12:27 Dose: 0.5 mg Documented By: GALE Morphine Sulfate (Morphine Sulfate 4 Mg/Ml Cartridge) 3 mg IVPUSH Q3H PRN; Protocol PRN Reason: Pain, Severe (Pain Scale 7-10) Last Admin: 01/08/22 11:35 Dose: 3 mg Documented By: GALE Ondansetron HCl (Ondansetron Hcl 4 Mg/2 Ml Vial) 4 mg IVPUSH Q8H PRN PRN Reason: Nausea and Vomiting Last Admin: 01/04/22 00:05 Dose: 4 mg Documented By: BAKARI Ondansetron HCl (Ondansetron Hcl 4 Mg/2 Ml Vial) 4 mg IVPUSH ONCE PRN PRN Reason: Nausea and Vomiting Oxycodone HCl (Oxycodone Hcl Immed Release 5 Mg Tablet) 5 mg PO Q4H PRN PRN Reason: Pain, Severe (Pain Scale 7-10) Last Admin: 01/08/22 10:04 Dose: 5 mg Documented By: GALE Pharmacy Consult (Consult Rx Perform Med Rec) 1 each MISCELLANE ONCE PRN PRN Reason: Consult order Polyethylene Glycol (Polyethylene Glycol 3350 17 Gm Powd.Pack) 17 gm PO DAILY [facility] Last Admin: 01/08/22 09:16 Dose: Not Given Documented By: GALE Non-Admin Reason: Patient Refused Sodium Chloride (0.9 % Sodium Chloride Flush 3 Ml Syringe) 3 ml IVFLUSH QSHIFT [facility] Last Admin: 01/08/22 10:06 Dose: 3 ml Documented By: HO.YOUB Labs CBC & Chem 7: 01/02/22 05:47 01/02/22 05:47 Procedures Date of Service Date of Service: 01/08/22 Progress Note: A&P Assessment and plan (1) Eschar of lower leg: Status: Acute Assessment and Plan: S/P debridement dressings changed silver alginate applied to both open areas pt still requiring IV pain meds with dressing change needed another dose after dressing change continue same wound care debrided areas look much better Time Spent With Patient Time: Total time spent is greater than 50% in coordination of care (as documented) at patient's floor/unit and/or counseling patient: Quality Stroke Does the patient have a stroke diagnosis?: No VTE Prior VTE?: No VTE Risk Level:: Medical - moderate - high VTE Device Contraindication: Treatment Not Indicated VTE Drug Contraindication: N/A - Med Ordered
[2022-01-08 15:21] VITALS: BP 114/79; PULSE 89; RESP 20; TEMP 36.9; O2SAT 90
[2022-01-08 19:35] VITALS: BP 120/81; PULSE 81; RESP 18; TEMP 37.3; O2SAT 90
[2022-01-08] MEDS: DULoxetine HCl 20 MG CAPSULE.DR PO (20:36)
[2022-01-08 23:43] VITALS: BP 102/75; PULSE 78; RESP 18; TEMP 37.3; O2SAT 91
[2022-01-09] VITALS (38 sets, daily range): BP systolic 74–148; BP diastolic 50–93; PULSE 77–136; RESP 13–25; TEMP 32–38.1; O2SAT 90–100; BMI 25.8
--- NOTE | 2022-01-09 | ECG_ITS ---
Test Reason : code Blood Pressure : / mmHG Vent. Rate : 131 BPM Atrial Rate : 000 BPM P-R Int : 000 ms QRS Dur : 122 ms QT Int : 294 ms P-R-T Axes : 000 034 -73 degrees QTc Int : 434 ms Undetermined rhythm RSR' or QR pattern in V1 suggests right ventricular conduction delay Cannot rule out Inferior infarct , age undetermined ST & T wave abnormality, consider anterior ischemia Abnormal ECG No previous ECGs available Referred By: Anamaria Rm Electronically Signed By:SALLIE HURLEY
[2022-01-09] MEDS: 0.9 % Sodium Chloride Flush 3 ML SYRINGE IVFLUSH ×3 (00:43→14:20)
[2022-01-09 04:30] LABS: Glucose, Whole Blood 101 mg/dL (60-115)
--- NOTE | 2022-01-09 04:42 | P.EN_ITS ---
Event Note Date of Service: 01/09/22 Event Note: At 04:00 a rapid response was called on this patient for unresponsiveness, on my arrival to patient bedside of for O2 patient was found to be pulseless, cold blue than was called, CPR was initiated, patient was believed to be in pulseless electrical activity. patient received 4 rounds of epinephrine, as well as bicarb and calcium gluconate. ROSC was achieved at 04:18. Glucose during the code was in the 100s, patient has been on heparin subQ for DVT prophylaxis. According to the nurse, he had requested go the bathroom, she noticed that patient was short of breath, and had respiratory distress and walking to the bathroom and back, she increased his oxygen from 2 L to 3 L he was satting in the mid 90s. He then requested to use the bathroom again but this time on the bed commode, she placed a bed commode under him, came back about 8 minutes later and found him to be unresponsive and therefore called the rapid response. Patient has been transferred to the ICU. Auto Mechanic Apprentice notified was informed
[2022-01-09 04:45] LABS: Hematocrit 44.4 % (42.0-52.0); Hemoglobin 13.3 g/dl (14.0-18.0); Mean Corpuscular Hemoglobin 29.5 pg (27.0-33.0); Mean Corpuscular Volume 98.4 fL (80.0-98.0); Mean Platelet Volume 10.4 fL (9.4-12.4); White Blood Count 15.5 X10*3/uL (4.8-10.8)
--- NOTE | 2022-01-09 04:49 | PC.NURSE ---
PATIENT OOB TO BEDSIDE COMMODE WITH ASSIST OF TWO AT APPROX., [id number]. ALERT, TALKING, VERBALIZING SAFE INSTRUCTIONS TO MOVE HIS LEFT LEG THE WAY ITS BEST FOR HIM, DELLA TRANSFER WELL. LARGE BM ON COMMODE, ALSO URINATED, ASSIST OF 2 WITH WALKER TO STAND, PIVOT, BTB. PT SAT AT BED EDGE FOR A MINUTE HE WAS FEELING SOB, STAYED WITH PT, INCREASED OXYGEN TO 3L/M N/C. POSITIONED IN BED, HOB UP, PILLOWS UNDER LEFT LEG PER HIS ROUTINE. PT REMAINED WINDED AND SLOW BREATHS THROUGH HIS NOSE ENCOURAGED, SATS 91%, SKIN DRY, COLOR GOOD, PT TALKING. SHORTLY AFTER GETTING IN BED PT STATED THOUGH HE WAS GOING TO HAVE ANOTHER BM OR JUST SOME SQUIRTS . PT PUT ON THE BEDPAN THIS TIME PER HIS REQUEST, CALL TOLLIVER PLACED IN REACH, BED ALARM IN USE, AND PT INSTRUCTED TO ALERT STAFF WHEN DONE. RN AND PLANT OPERATOR LEFT ROOM, PHONE MESSAGE BY THIS STUDENT FINANCE SPECIALIST, HOWEVER, PLANT OPERATOR IN HALLWAY. RETURNED TO ROOM IN 4 TO 5 MINUTES AFTER ASKING PLANT OPERATOR IF HE RANG YET, CHECKED TO MAKE SURE HE DIDNT DROP TOLLIVER, AND UPON ENTERING ROOM PT WAS NOTED DUSKY COLOR, SKIN CLAMMY, NOT ANSWERING TO HIS NAME OR STERNAL RUB. RR CALLED, BEDPAN REMOVED, SMALL BM NOTED, BUT PT UNRESPONSIVE AT THIS POINT. NOTED BY THIS STUDENT FINANCE SPECIALIST TO HAVE SHALLOW BREATHS AT FIRST ENTER, BUT THEN NO RESPIRATIONS AND NO PULSE. NURSING TEMPER MILL ROLLER WAS NOW PRESENT IN ROOM, HOSPITALIST ALSO ENTERING AND CODE CALLED, TEAM ALL ARRIVING FOR RR. CPR INITIATED AND CODE TEAM, ED MD, AND ED RN AND STAFF ALL TOOK OVER PT CARE. PT INTUBATED AND TRANSFERRED TO ICU SETTING. SEE CODE DOCUMENTATION FOR DETAILS AND TIMES FRAME. HOSPITALIST CALLED AND UPDATED , REPORT GIVEN TO PHARMACY ORDER ENTRY TECHNICIAN TAKING OVER PATIENTS CARE.
[2022-01-09 04:50] LABS: VBG Base Excess -11.6 mmol/L; VBG HCO3 21 mmol/L (22-26); VBG pCO2 84 mmHg; VBG pO2 40 mmHg
[2022-01-09 04:51] LABS: Venous Blood Gas Refer to POC result
[2022-01-09 05:00] LABS: D Dimer High Sensitivity 47559 NG/ML
[2022-01-09 05:02] LABS: Lactic Acid 12.3 mmol/L (0.5-2.0)
[2022-01-09 05:03] LABS: Platelet Count 69 X10*3/uL (160-400)
[2022-01-09 05:06] LABS: Band Neutrophils Percent 11 % (3-5); Basophils Abs Manual 0.2 X10*3/uL (0.0-0.2); Basophils Percent Manual 1 % (0-2); Lymphocytes Absolute Manual 5.6 X10*3/uL (1.2-4.9); Lymphocytes Percent Manual 36 % (20-40); Metamyelocytes Absolute 0.2 X10*3/uL; Metamyelocytes Percent 1 %; Monocytes Absolute Manual 0.8 X10*3/uL (0.1-1.2); Monocytes Percent Manual 5 % (2-11); Neutrophils Absolute Manual 8.8 X10*3/uL (2.0-8.3); Neutrophils Percent Manual 46 % (45-73)
[2022-01-09 05:07] LABS: Large Platelet PRESENT; Platelet Estimate DECREASED (NORMAL); Platelet Morphology Comment NOTED; RBC Morphology NORMAL
[2022-01-09 05:09] LABS: B Type Natriuretic Peptide 38 pg/mL (<100)
[2022-01-09 05:18] LABS: Anion Gap 24 (12-20); Blood Urea Nitrogen 23 mg/dL (9-16); Carbon Dioxide 19 mmol/L (22-29); Chloride 101 mmol/L (96-108); Creatinine Clr Calc Pharmacy 31.5; Estimated Glomerular Filt Rate 37; Glucose Random 258 mg/dL (60-115); Magnesium 2.4 mg/dL (1.6-2.6); Phosphorus 9.2 mg/dL (2.7-4.5); Potassium 4.2 mmol/L (3.3-5.1); Sodium 140 mmol/L (135-145)
--- NOTE | 2022-01-09 05:31 | W.PM.CCHP ---
Procedures Date of Service Date of Service: 01/09/22 Central Line Placement Right IJ: Central Line Comments: venous access Consent for Procedure: Emergent-no informed consent obtained Time out performed: Yes Sterile Technique Used: Yes Patient placed on monitor/pulse ox: Yes MD prep: mask, gown and gloves Central line prep: Chlorhexidine scrub and sterile drapes applied Ultrasound used for placement: Yes Central line lumen inserted: triple Post procedure: sutured in place, good blood return, all ports aspirated, flushed, capped and sterile dressing applied Post procedure x-ray: tip of catheter in good position and no pneumothorax seen Patient tolerated procedure: well and no complications Complications: none
[2022-01-09 05:38] LABS: INTERNATIONAL NORM RATIO 1.2 (0.9-1.1)
[2022-01-09 05:41] LABS: Partial Thromboplastin Time 46.6 SEC (24.1-38.0)
[2022-01-09] MEDS: iohexoL 350 MG/ML 100 ML INFUS..BTL 35 ML IV (06:19)
[2022-01-09] MEDS: iohexoL 350 MG/ML 100 ML INFUS..BTL 65 ML IV (06:22)
--- NOTE | 2022-01-09 06:36 | W.PM.CCCN ---
History of Present Illness Data of Consult Service Date: 01/09/22 Requesting physician: Bridget Mckeon Primary Care Provider: Kia Stroud MD HPI Reason for consult: cardiac arrest At 04:00 a rapid response was called on this patient for unresponsiveness, when production sound mixer arrived, the patient was found to be pulseless, cold blue than was called, CPR was initiated, patient was believed to be in pulseless electrical activity.? patient received 4 rounds of epinephrine, as well as bicarb and calcium gluconate.? ROSC was achieved at 04:18.? Glucose during the code was in the 100s, patient has been on heparin subQ for DVT prophylaxis. Dr Lott from the ED intubated the pt. I was also at the bedside. Dr Vernon ran the code. According to the nurse, he had requested go the bathroom, she noticed that patient was short of breath, and had respiratory distress and walking to the bathroom and back, she increased his oxygen from 2 L to 3 L he was satting in the mid 90s.? He then requested to use the bathroom again but this time on the bed commode, she placed a bed commode under him, came back about 8 minutes later and found him to be unresponsive and therefore called the rapid response.? The patient will be transferred to the ICU following intubation; intubation meds caused patient to become hypotensive, this was not due to sepsis, will need to be placed on pressors and have a TLC placed. I discussed this case with Dr. Gardner and he agreed with the assessment and plan. EKG showed a right bundle branch block, however there is no previous EKG to compare this to, trop was 57.0. Most likely PE, will get CTA for PE protocol; discussed this with his family, agreed that the IV contrast is necessary, risk greater than benefit considering he has CKD. when we returned from the CT scan, the did give me a healthcare proxy that states the patient is now a DNR. Once we got the patient to the ICU, pt was cognitively aware of what was going on and was able to answer my questions by nodding his head yes or no and was answering questions appropriately. Will not do therapeutic hyopthermia protocol based on this. Review of Systems Review of Systems: Yes all other systems are reviewed and are negative PMFSH Past Medical History Medical History Chronic ulcer of leg Chronic venous insufficiency CKD (chronic kidney disease) stage 3, GFR 30-59 ml/min COPD (chronic obstructive pulmonary disease) Elevated serum creatinine HTN (hypertension) Leg pain, bilateral Rheumatoid arthritis Sjogren's disease Vasculitis Functional capacity: independent ambulation Family History Family History Other No family history of coronary artery disease Family history: reviewed and not pertinent Surgical History Surgical History History of hernia repair History of left knee replacement Social History Social History Household Members: Spouse Housing: House Do you presently have visiting nurse or other home services: No Alcohol intake: current Alcohol intake frequency: holidays/special occasions only Patient Tobacco Use Status: Former Tobacco user Tobacco use type: Cigarette Years Smoked: quit 2019 e-Cigarette/Vaping Use: Never Used Advance Directives Date on File: 12/23/21 service: No Current occupational status: retired Cognitive needs: Yes (cane) Hearing needs: No Vision needs: Yes (Pt wear glasses. ) Meds Allergies Allergy/AdvReac Type Severity Reaction Status Date / Time No Known Allergies Allergy Verified 12/22/21 11:15 [No Known Allergies*] Active Medications: Current Medications Acetaminophen (Acetaminophen 325 Mg Tablet) 975 mg PO Q8H PRN PRN Reason: Pain, Mild (Pain Scale 1-3) Last Admin: 01/07/22 07:45 Dose: 975 mg Albuterol Sulfate (Albuterol Sulfate 90 Mcg 8 Gm Inhaler) 1 puff INHALE RQ4H PRN PRN Reason: asthma Baclofen (Baclofen 10 Mg Tablet) 10 mg PO BID PETER Last Admin: 01/08/22 20:36 Dose: 10 mg Chlorhexidine Gluconate (Chlorhexidine Gluc Oral Rinse 15 Ml Mouthwash) 15 ml BUCCAL TID PETER Docusate Sodium (Docusate Sodium 100 Mg Capsule) 100 mg PO DAILY PRN PRN Reason: Constipation Last Admin: 12/27/21 08:32 Dose: 100 mg Duloxetine HCl (Duloxetine Hcl 20 Mg Capsule.Dr) 20 mg PO BEDTIME [facility] Last Admin: 01/08/22 20:36 Dose: 20 mg Fentanyl (Fentanyl 12 Mcg Patch.Td72) 12 mcg TRANSDERMA Q72H [facility] Last Admin: 01/07/22 11:00 Dose: 12 mcg Fluticasone/Vilanterol (Fluticasone/Vilanterol 100/25 Blst.W.Dev) 1 puff INHALE DAILY PRN PRN Reason: Shortness Of Breath Gabapentin (Gabapentin 300 Mg Capsule) 300 mg PO QID [facility] Last Admin: 01/08/22 20:36 Dose: 300 mg Heparin Sodium (Porcine) (Heparin Sodium,Porcine 5,000 Unit/Ml Vial) 5,000 unit SUBCUT Q12H [facility] Last Admin: 01/08/22 23:29 Dose: 5,000 unit Hydromorphone HCl (Hydromorphone Hcl 0.5 Mg/0.5 Ml Syringe) 0.5 mg IVPUSH Q4H PRN; Protocol PRN Reason: Pain, Mild (Pain Scale 1-3) Last Admin: 01/08/22 12:27 Dose: 0.5 mg Norepinephrine Bitartrate (Levophed) 8 mg in 250 mls @ 0 mls/hr IVCONT .Q0M PETER; Protocol Propofol (Diprivan) 1,000 mg in 100 mls @ 0 mls/hr IVCONT .Q0M PETER; Protocol Morphine Sulfate (Morphine Sulfate 4 Mg/Ml Cartridge) 3 mg IVPUSH Q3H PRN; Protocol PRN Reason: Pain, Severe (Pain Scale 7-10) Last Admin: 01/08/22 20:36 Dose: 3 mg Ondansetron HCl (Ondansetron Hcl 4 Mg/2 Ml Vial) 4 mg IVPUSH Q8H PRN PRN Reason: Nausea and Vomiting Last Admin: 01/04/22 00:05 Dose: 4 mg Ondansetron HCl (Ondansetron Hcl 4 Mg/2 Ml Vial) 4 mg IVPUSH ONCE PRN PRN Reason: Nausea and Vomiting Pharmacy Consult (Consult Rx Perform Med Rec) 1 each MISCELLANE ONCE PRN PRN Reason: Consult order Polyethylene Glycol (Polyethylene Glycol 3350 17 Gm Powd.Pack) 17 gm PO DAILY [facility] Last Admin: 01/08/22 09:16 Dose: Not Given Sodium Chloride (0.9 % Sodium Chloride Flush 3 Ml Syringe) 3 ml IVFLUSH QSHIFT PETER Last Admin: 01/09/22 00:43 Dose: 3 ml Home Medications Medication Instructions Recorded Confirmed Last Taken Type umeclidinium 62.5 mcg-vilanterol 1 inh inhalation DAILY PRN 10/15/21 12/22/21 Unknown History 25 mcg/actuation powdr for Shortness Of Breath inhalation (Anoro Ellipta) acetaminophen 500 mg tablet 1,000 mg PO Q6H PRN Pain (Scale 10/30/21 12/22/21 12/22/21 History (Tylenol Extra Strength) Score 1-3) albuterol sulfate 90 mcg/actuation 2 puff inhalation Q6H PRN 11/28/21 12/22/21 Unknown History aerosol inhaler (ProAir HFA) Shortness Of Breath tocilizumab 80 mg/4 mL (20 mg/mL) 0 mg IV Q30D 11/28/21 12/22/21 12/02/21 History intravenous solution (Actemra) duloxetine 20 mg capsule,delayed 20 mg PO BEDTIME 12/19/21 12/22/21 12/21/21 History release prednisone 10 mg tablet See Taper PO DAILY 12/19/21 12/22/21 12/21/21 History Physical Exam Vital Signs: Vital Signs: Last Vital Signs Temp 98.6 F 01/09/22 06:00 Pulse 100 01/09/22 06:00 Resp 20 01/09/22 06:00 BP 127/92 H 01/09/22 06:00 Pulse Ox 95 01/09/22 06:00 O2 Del Method 01/09/22 06:00 O2 Flow Rate 1.0 01/08/22 19:35 FiO2 100 01/09/22 06:00 Oxygen Flow Rate 2 12/29/21 13:00 BMI result Body Mass Index 25.8 Const: Other: intubated and sedated Resp: Effort & Inspection: tachypneic and uses accessory muscles Auscultation: clear to auscultation bilaterally Cardio: Jugular venous distension: no JVD Rate: tachycardic Rhythm: abnormal rhythm Heart sounds: normal S1 and S2 GI: Inspection: Yes normal to inspection Palpation (GI): Soft to palpation and nontender Neuro: Cognition (Neuro): normal cognition Extrem: Other: left lower extremity has dressing applied, CDI Results Labs CBC & Chem 7: 01/10/22 04:55 01/10/22 04:55 Labs: Short CBC 01/09/22 Range/Units 04:36 WBC 15.5 H (4.8-10.8) X10*3/uL Hgb 13.3 L (14.0-18.0) g/dl Hct 44.4 (42.0-52.0) % Plt Count 69 L D (160-400) X10*3/uL BMP 01/09/22 04:36 Sodium 140 Potassium 4.2 Chloride 101 Carbon Dioxide 19 L BUN 23 H Creatinine 1.80 H Calcium 13.0 H* D Microbiology Microbiology Results: Microbiology 12/22/21 11:41 Blood - Venous Blood Culture - Final No growth after 5 days. 12/22/21 11:41 Blood - Venous Blood Culture - Final No growth after 5 days. Assessment and Plan (1) Cardiac arrest: Status: Acute (2) Eschar of lower leg: Status: Acute (3) Non-healing wound of left lower extremity: Status: Acute (4) Chronic ulcer of leg: Status: Acute (5) Cellulitis: Status: Acute (6) Hypercalcemia: Status: Acute (7) Chronic venous insufficiency: Status: Acute Plan Pt has PE, will give argatroban because of possible heparin-induced thrombosis with bilateral pulmonary emboli and acute cor pulmonale supporting blood pressure and right ventricle with Levophed. Critical Care Time Critical Care Time (minutes): 120
--- NOTE | 2022-01-09 06:40 | PC.NURSE ---
received from med-surg post cardiac arrest...unresponsive on arrival...intubated/ambued by rt..placed ac vent settings by rt...diaphoretic and dusky...atrial fib hr 120's-130's..sbp 70's-90's....icu pa present...right jugular tlc inserted.....cxr done...to radiology for cta.... present at transfer to radiology...returned from radiology.. provided pa with paperwork changing code status to dnr...post-arrest monitor rapid atrial fib...converted to nsr/s.tach in ct dept...multiple vent changes...dr vázquez present post-ct..vent changed to pcv: ac 20/ip 15/fio2 80%/peep5...propofol and levophed titrated per anahi
[2022-01-09 06:42] LABS: Reflex Lactate? Lactic Acid Added
--- NOTE | 2022-01-09 07:00 | CA_ITS ---
Transthoracic Echocardiogram Patient (Last, First, Middle): Sarath Rodriguez, Gender: Male Date of : 1945 Age: 76 Procedure Date: 01/09/2022 Procedure Type: Transthoracic Echocardiogram Location: ICU Height: 167.64 cm Weight: 72.58 kg BSA: 1.82 m2 Heart Rate: bpm BP: 124 / 89 mmHg [employer] Operator: VH/TO Referring MD: Anamaria Rm PA-C Symptoms: s/p cardiac arrest Study Quality: Technically Difficult ECG Rhythm: Sinus Conclusions: - Based on available images, LVEF grossly >50%. - Moderately increased right ventricular cavity size. - No obvious valvular pathology seen on this study (based on available images). Findings Left Ventricle The left ventricle was not well visualized. Normal left ventricular cavity size. Regional wall motion abnormalities can not be excluded due to suboptimal endocardial definition. Diastolic function is indeterminate on the basis of available data. Based on available images, LVEF grossly >50%. Right Ventricle The right ventricle was not well visualized. Moderately increased right ventricular cavity size. Atria The left atrium is moderately dilated. The right atrium was not well visualized. Aortic Valve The aortic valve was not well visualized. There is no aortic valve stenosis. There is no aortic valve regurgitation. Mitral Valve The mitral valve appears normal. There is trace mitral valve regurgitation. There is no mitral valve stenosis. Pulmonic Valve The pulmonic valve was not well visualized. Tricuspid Valve Normal tricuspid valve structure. There is mild to moderate tricuspid valve regurgitation. Estimated RVSP 36mmHg + RAP (intubated). Venous The inferior vena cava is mildly dilated and collapses less than 50% with inspiration. Pericardium/Pleural There is no evidence of pericardial effusion. Prior Study Comparison No prior study available for comparison. Recommendations, Care & Conclusions No obvious valvular pathology seen on this study. Measurements 2D Linear Measurements LVOT Diam: 2.50 3.0+(-)1.3 cm Mitral Valve MV Pk E: 0.34 MV PK A: 0.30 MV Decel Time: 104.00 E/A: 1.10 E'Lateral: 8.92 E'Medial: 5.22 E/E' Med: 6.60 E/E' Lat: 3.80 PHT: 31.00 MVA PHT: 7.10 Decel [place]: 3.29 Aortic Valve AoV Pk Giovani: 1.10 AoV Mn Giovani: 0.76 AoV VTI: 0.30 AoV Pk Grad: 5.00 Aov Mn Grad: 3.00 SANJAY Cont.VTI: 2.00 LVOT LVOT Pk Giovani: 0.57 LVOT Mn Giovani: 0.37 LVOT VTI: 0.12 LVOT Pk Grad: 1.00 LVOT Mn Grad: 1.00 LVOT Diam: 2.50 LVOT Area: 4.91 Diastolic Function MV Pk E: 0.34 MV Pk A: 0.30 E/A: 1.10 E'Medial: 5.22 E/E' Med: 6.60 E' Laterial: 8.92 E/E' Lat: 3.80 Tricuspid Valve TR Pk Giovani: 3.03 TR Pk Grad: 37.00 Pulmonary Valve PV Pk Giovani: 0.80 Peak PV Grad: 3.00 Updated in Other Vendor System with Status of Final Matt Plunkett MD electronically signed on 01/09/2022 4:28:12 PM with status of Final
[2022-01-09] MEDS: propofoL 1,000 MG/100 ML VIAL 21.77 MG IVCONT ×3 (07:08→13:15)
[2022-01-09] MEDS: Sodium Bicarbonate 8.4% 50 MEQ/50 ML SYRINGE IVPUSH (07:08)
[2022-01-09 07:22] LABS: ~Lactic Acid-LAB USE ONLY 2.1 mmol/L (0.5-2.0)
[2022-01-09] MEDS: Argatroban 250 MG in 0.9 % Sodium Chloride 250 ML IV (07:30)
[2022-01-09 07:52] LABS: VBG Base Excess -0.6 mmol/L; VBG HCO3 24 mmol/L (22-26); VBG pCO2 43 mmHg; VBG pH 7.36 (7.32-7.43); VBG pO2 57 mmHg
[2022-01-09 07:57] LABS: Venous Blood Gas Refer to POC result
[2022-01-09 08:58] LABS: Reflex Lactate? 2 Y
[2022-01-09] MEDS: Chlorhexidine Gluc Oral Rinse 15 ML MOUTHWASH BUCCAL ×3 (10:23→22:02)
[2022-01-09 10:57] LABS: Partial Thromboplastin Time 150.2 SEC (24.1-38.0)
[2022-01-09] MEDS: fentaNYL citrate/NS 1,000 MCG/100 ML PLAST..BAG 2.5 MCG IVCONT (11:39)
--- NOTE | 2022-01-09 11:54 | MHC.CM.PN ---
Pt intubated and in ICU following a Code Blue earlier this morning where he was found pulseless. Pt initially being followed by STR however, d/c plans are pended at this time d/c critical condition
[2022-01-09] MEDS: Albuterol/Iprat 2.5/0.5MG 3 ML AMPUL.NEB INHALE ×3 (11:58→19:54)
[2022-01-09 12:26] LABS: Venous Blood Gas Refer to POC result
[2022-01-09 12:28] LABS: VBG Base Excess -3.3 mmol/L; VBG HCO3 19 mmol/L (22-26); VBG pCO2 28 mmHg; VBG pH 7.43 (7.32-7.43); VBG pO2 46 mmHg
[2022-01-09] MEDS: Lactated Ringers 1,000 ML 150 ML IVCONT ×2 (12:42→18:29)
[2022-01-09 12:54] LABS: Alanine Aminotransferase 784 U/L (0-40); Albumin Level 3.2 g/dL (3.5-5.0); Alkaline Phosphatase 124 U/L (39-117); Anion Gap 18 (12-20); Aspartate Amino Transferase 823 U/L (5-37); Bilirubin Total 0.6 mg/dL (0.0-1.0); Blood Urea Nitrogen 32 mg/dL (9-16); Carbon Dioxide 22 mmol/L (22-29); Chloride 105 mmol/L (96-108); Estimated Glomerular Filt Rate 34; Glucose Random 148 mg/dL (60-115); Potassium 4.7 mmol/L (3.3-5.1); Sodium 140 mmol/L (135-145); Total Protein 6.5 g/dL (6.5-8.0)
[2022-01-09] MEDS: vancomycin HCL 1,500 MG in 0.9 % Sodium Chloride 500 ML 333.33 MG IV (13:22)
[2022-01-09] MEDS: Fluconazole in NaCl,Iso-Osm 200 MG/100 ML PIGGYBACK 100 MG IV (13:22)
[2022-01-09] MEDS: methylPREDNISolone Sod Succ 125 MG/2 ML VIAL 60 MG IVPUSH ×2 (13:23→23:48)
[2022-01-09 14:36] LABS: Partial Thromboplastin Time 98.1 SEC (24.1-38.0)
[2022-01-09 15:26] LABS: Procalcitonin 23.03 ng/mL
--- NOTE | 2022-01-09 15:42 | P.PNCC_ITS ---
Subjective Subjective Date of Service: 01/09/22 Interval History: 76-year-old male who has been here for close to 3 weeks mostly at bed rest for a nonhealing ulcer in distal left lower extremity medially a very extensive area of skin debridement which just simply showed necrosis no evidence of inflammatory infiltrate who does have chronic renal insufficiency and underlying collagen vascular disease with rheumatoid arthritis and Sjogren syndrome and today had cardiac arrest with new right bundle branch block right ventricular preponderance echo confirming significantly dilated and diffusely hypo functional right ventricle with some compression of the interventricular septum but no septal paradox normal LV function with cysts with ejection fraction 60% and no primary valve or pericardial disease but he has a very eccentric 3+ tricuspid regurgitation with velocity exceeding 3.5 m/sec for pulmonary artery pressure probably somewhat greater than 50 mmHg and when I noted his platelet count had dropped and he was on subcutaneous heparin I felt this could be heparin-induced thrombosis and thrombocytopenia we stop heparin sent off the platelet antibody started argatroban empirically and went for a CTA utilizing PE protocol found that he did have showers of a bilateral pulmonary emboli with significant burden superimposed on significant COPD on the CT scan so currently we still require Levophed drip his periphery is still call with some diffuse acrocyanosis/livedo but dopplerable pulses at least 1 per lower extremity and we noted that it has been a week since his last antibiotic and his procalcitonin was 23 along with this hemodynamic so I have cultured him and empirically cover him with meropenem and vancomycin and 1 dose of fluconazole in 0 for the open wound as a potential source but there is no diarrhea. He did awaken while intubated him after the resuscitation which took 15 minutes to restore circulation so that is a hopeful sign for meaningful recovery but his climbing creatinine is indicating ATN but so thus far nonoliguric Critical Care Time (minutes): 60 Physical Exam Vital Signs: Vital Signs: Last Vital Signs Temp 99.7 F 01/09/22 15:00 Pulse 86 01/09/22 15:31 Resp 22 H 01/09/22 15:31 BP 117/88 01/09/22 15:23 Pulse Ox 97 01/09/22 15:00 O2 Del Method 01/09/22 15:00 O2 Flow Rate 1.0 01/08/22 19:35 FiO2 40 01/09/22 15:33 Oxygen Flow Rate 2 12/29/21 13:00 BMI result Body Mass Index 25.8 Deeply sedated and were going to lower propofol but before he did awaken no seizure activity no myoclonus moving all 4 extremities The ulcer base which is deep tissue looks clean no evidence of significant necroses but he does have some peripheral livedo and all 4 extremities cool to the touch distally Bedside echo with normal LV function but evidence of dilated dysfunctional right ventricle Chest no infiltrate no adventitious sounds Abdomen is soft with no again a megaly and tolerating his feedings Objective Data Labs CBC & Chem 7: 01/09/22 04:36 01/09/22 12:18 Labs: Laboratory Results - last 24 hr 01/09/22 01/09/22 01/09/22 04:14 04:36 04:36 WBC 15.5 H RBC 4.50 L Hgb 13.3 L Hct 44.4 MCV 98.4 H D MCH 29.5 MCHC 30.0 L RDW 14.0 Plt Count 69 L D MPV 10.4 Immature Gran % (Auto) Cancelled Neut % (Auto) Cancelled Lymph % (Auto) Cancelled [place] % (Auto) Cancelled Eos % (Auto) Cancelled Baso % (Auto) Cancelled Lymph # (Auto) Cancelled [place] # (Auto) Cancelled Eos # (Auto) Cancelled Baso # (Auto) Cancelled Abs Immat Gran (auto) Cancelled Absolute Neuts (auto) Cancelled Absolute Nucleated RBC 0.000 Nucleated RBC % (auto) 0.0 Neutrophils % (Manual) 46 Band Neutrophils % 11 H Lymphocytes % (Manual) 36 Monocytes % (Manual) 5 Basophils % (Manual) 1 Metamyelocytes % 1 Abs Neuts (Manual) 8.8 H Lymphocytes # (Manual) 5.6 H Monocytes # (Manual) 0.8 Basophils # (Manual) 0.2 Metamyelocytes # 0.2 Platelet Estimate DECREASED Large Platelets PRESENT Plt Morphology Comment NOTED RBC Morphology NORMAL PT 14.0 H INR 1.2 H APTT 46.6 H D-Dimer High Sensitivty 93967 VBG pH VBG pCO2 VBG pO2 VBG HCO3 VBG O2 Saturation VBG Base Excess Sodium Potassium Chloride Carbon Dioxide Anion Gap BUN Creatinine Estim Creat Clear Calc Estimated GFR POC Glucose 101 Random Glucose Lactic Acid Lactic Acid F/U @ 2Hr Calcium Phosphorus Magnesium Total Bilirubin AST ALT Alkaline Phosphatase Troponin I High Sens B-Natriuretic Peptide Total Protein Albumin Procalcitonin 01/09/22 01/09/22 01/09/22 04:36 04:36 04:36 WBC RBC Hgb Hct MCV MCH MCHC RDW Plt Count MPV Immature Gran % (Auto) Neut % (Auto) Lymph % (Auto) [place] % (Auto) Eos % (Auto) Baso % (Auto) Lymph # (Auto) [place] # (Auto) Eos # (Auto) Baso # (Auto) Abs Immat Gran (auto) Absolute Neuts (auto) Absolute Nucleated RBC Nucleated RBC % (auto) Neutrophils % (Manual) Band Neutrophils % Lymphocytes % (Manual) Monocytes % (Manual) Basophils % (Manual) Metamyelocytes % Abs Neuts (Manual) Lymphocytes # (Manual) Monocytes # (Manual) Basophils # (Manual) Metamyelocytes # Platelet Estimate Large Platelets Plt Morphology Comment RBC Morphology PT INR APTT D-Dimer High Sensitivty VBG pH VBG pCO2 VBG pO2 VBG HCO3 VBG O2 Saturation VBG Base Excess Sodium 140 Potassium 4.2 Chloride 101 Carbon Dioxide 19 L Anion Gap 24 H BUN 23 H Creatinine 1.80 H Estim Creat Clear Calc 31.5 Estimated GFR 37 POC Glucose Random Glucose 258 H D Lactic Acid 12.3 H* Lactic Acid F/U @ 2Hr Calcium 13.0 H* D Phosphorus 9.2 H Magnesium 2.4 Total Bilirubin AST ALT Alkaline Phosphatase Troponin I High Sens 57.0 H B-Natriuretic Peptide 38 Total Protein Albumin Procalcitonin 01/09/22 01/09/22 01/09/22 04:43 06:55 07:48 WBC RBC Hgb Hct MCV MCH MCHC RDW Plt Count MPV Immature Gran % (Auto) Neut % (Auto) Lymph % (Auto) [place] % (Auto) Eos % (Auto) Baso % (Auto) Lymph # (Auto) [place] # (Auto) Eos # (Auto) Baso # (Auto) Abs Immat Gran (auto) Absolute Neuts (auto) Absolute Nucleated RBC Nucleated RBC % (auto) Neutrophils % (Manual) Band Neutrophils % Lymphocytes % (Manual) Monocytes % (Manual) Basophils % (Manual) Metamyelocytes % Abs Neuts (Manual) Lymphocytes # (Manual) Monocytes # (Manual) Basophils # (Manual) Metamyelocytes # Platelet Estimate Large Platelets Plt Morphology Comment RBC Morphology PT INR APTT D-Dimer High Sensitivty VBG pH 7.00 L* 7.36 VBG pCO2 84 43 VBG pO2 40 57 VBG HCO3 21 L 24 VBG O2 Saturation 38.0 83.0 VBG Base Excess -11.6 -0.6 Sodium Potassium Chloride Carbon Dioxide Anion Gap BUN Creatinine Estim Creat Clear Calc Estimated GFR POC Glucose Random Glucose Lactic Acid Lactic Acid F/U @ 2Hr 2.1 H* Calcium Phosphorus Magnesium Total Bilirubin AST ALT Alkaline Phosphatase Troponin I High Sens B-Natriuretic Peptide Total Protein Albumin Procalcitonin 01/09/22 01/09/22 01/09/22 10:05 12:18 12:18 WBC RBC Hgb Hct MCV MCH MCHC RDW Plt Count MPV Immature Gran % (Auto) Neut % (Auto) Lymph % (Auto) [place] % (Auto) Eos % (Auto) Baso % (Auto) Lymph # (Auto) [place] # (Auto) Eos # (Auto) Baso # (Auto) Abs Immat Gran (auto) Absolute Neuts (auto) Absolute Nucleated RBC Nucleated RBC % (auto) Neutrophils % (Manual) Band Neutrophils % Lymphocytes % (Manual) Monocytes % (Manual) Basophils % (Manual) Metamyelocytes % Abs Neuts (Manual) Lymphocytes # (Manual) Monocytes # (Manual) Basophils # (Manual) Metamyelocytes # Platelet Estimate Large Platelets Plt Morphology Comment RBC Morphology PT INR APTT 150.2 H* D D-Dimer High Sensitivty VBG pH VBG pCO2 VBG pO2 VBG HCO3 VBG O2 Saturation VBG Base Excess Sodium 140 Potassium 4.7 Chloride 105 Carbon Dioxide 22 Anion Gap 18 BUN 32 H Creatinine 1.95 H Estim Creat Clear Calc 29.0 Estimated GFR 34 POC Glucose Random Glucose 148 H D Lactic Acid 2.0 Lactic Acid F/U @ 2Hr Calcium 10.0 D Phosphorus Magnesium Total Bilirubin 0.6 AST 823 H ALT 784 H Alkaline Phosphatase 124 H D Troponin I High Sens B-Natriuretic Peptide Total Protein 6.5 Albumin 3.2 L D Procalcitonin 01/09/22 01/09/22 01/09/22 12:18 12:24 14:13 WBC RBC Hgb Hct MCV MCH MCHC RDW Plt Count MPV Immature Gran % (Auto) Neut % (Auto) Lymph % (Auto) [place] % (Auto) Eos % (Auto) Baso % (Auto) Lymph # (Auto) [place] # (Auto) Eos # (Auto) Baso # (Auto) Abs Immat Gran (auto) Absolute Neuts (auto) Absolute Nucleated RBC Nucleated RBC % (auto) Neutrophils % (Manual) Band Neutrophils % Lymphocytes % (Manual) Monocytes % (Manual) Basophils % (Manual) Metamyelocytes % Abs Neuts (Manual) Lymphocytes # (Manual) Monocytes # (Manual) Basophils # (Manual) Metamyelocytes # Platelet Estimate Large Platelets Plt Morphology Comment RBC Morphology PT INR APTT 98.1 H* D D-Dimer High Sensitivty VBG pH 7.43 VBG pCO2 28 VBG pO2 46 VBG HCO3 19 L VBG O2 Saturation 73.0 VBG Base Excess -3.3 Sodium Potassium Chloride Carbon Dioxide Anion Gap BUN Creatinine Estim Creat Clear Calc Estimated GFR POC Glucose Random Glucose Lactic Acid Lactic Acid F/U @ 2Hr Calcium Phosphorus Magnesium Total Bilirubin AST ALT Alkaline Phosphatase Troponin I High Sens B-Natriuretic Peptide Total Protein Albumin Procalcitonin 23.03 Microbiology Microbiology Results: Microbiology 12/22/21 11:41 Blood - Venous Blood Culture - Final No growth after 5 days. 12/22/21 11:41 Blood - Venous Blood Culture - Final No growth after 5 days. Progress Note: A&P Assessment and plan (1) Acute pulmonary embolism: Status: Acute (2) Acute pulmonary embolism with acute cor pulmonale: Status: Acute (3) ATN (acute tubular necrosis): Status: Acute (4) HTN (hypertension): Status: Acute (5) Sjogren's disease: Status: Acute (6) Rheumatoid arthritis: Status: Acute (7) COPD (chronic obstructive pulmonary disease): Status: Acute (8) CKD (chronic kidney disease) stage 3, GFR 30-59 ml/min: Status: Acute (9) Cardiac arrest: Status: Acute (10) Eschar of lower leg: Status: Acute (11) Muscle spasm: Status: Acute (12) Non-healing wound of left lower extremity: Status: Acute (13) Chronic ulcer of leg: Status: Acute (14) Cellulitis: Status: Acute (15) Guaiac positive stools: Status: Acute (16) Annual physical exam: Status: Acute (17) Hypercalcemia: Status: Acute (18) Leg pain, bilateral: Status: Acute (19) Chronic venous insufficiency: Status: Acute Plan And the plan is to cover him and as a potential septic with an open wound potential source and we are using argatroban because of possible heparin-induced thrombosis with bilateral pulmonary emboli and acute cor pulmonale supporting blood pressure and right ventricle with Levophed Quality Stroke Does the patient have a stroke diagnosis?: No VTE Prior VTE?: No VTE Risk Level:: Medical - moderate - high VTE Device Contraindication: Treatment Not Indicated VTE Drug Contraindication: N/A - Med Ordered
--- NOTE | 2022-01-09 16:13 | P.PNGS_ITS ---
Subjective Subjective Date of Service: 01/09/22 Interval history: Events this hospice executive director reviewed Was found unresponsive on the bedpan for o'clock this morning Code blue called, return of spontaneous circulation, patient now in the ICU On ventilator, low-dose pressors Found to have multiple small PEs on CT angiogram Currently on anticoagulation Physical Exam Vital Signs: Vital Signs: Last Vital Signs Temp 99.9 F 01/09/22 16:00 Pulse 88 01/09/22 16:00 Resp 15 01/09/22 16:00 BP 100/71 01/09/22 16:00 Pulse Ox 97 01/09/22 16:00 O2 Del Method 01/09/22 16:00 O2 Flow Rate 1.0 01/08/22 19:35 FiO2 50 01/09/22 16:00 Oxygen Flow Rate 2 12/29/21 13:00 BMI result Body Mass Index 25.8 Const: Other: Intubated, on vent and sedated Resp: Other: On vent Cardio: Rate: regular rate Rhythm: regular rhythm GI: Palpation (GI): Soft to palpation and nontender Extrem: Other: Left leg Objective Data Active Medications Albuterol/Ipratropium (Albuterol/Iprat 2.5/0.5mg 3 Ml Ampul.Neb) 3 ml INHALE RQ4H WHILE AWAKE [facility], [facility] Last Admin: 01/09/22 15:30 Dose: 3 ml Documented By: ORLIN Chlorhexidine Gluconate (Chlorhexidine Gluc Oral Rinse 15 Ml Mouthwash) 15 ml BUCCAL TID [facility] Last Admin: 01/09/22 14:20 Dose: 15 ml Documented By: RAF Docusate Sodium (Docusate Sodium 100 Mg Capsule) 100 mg PO DAILY [facility] Fluticasone/Vilanterol (Fluticasone/Vilanterol 100/25 Blst.W.Dev) 1 puff INHALE DAILY PRN PRN Reason: Shortness Of Breath Norepinephrine Bitartrate (Levophed) 8 mg in 250 mls @ 0 mls/hr IVCONT .Q0M [facility]; Protocol Last Titration: 01/09/22 15:46 Dose: 0.14 mcg/kg/min, 19.05 mls/hr Documented By: RAF Propofol (Diprivan) 1,000 mg in 100 mls @ 0 mls/hr IVCONT .Q0M [facility]; Protocol Last Titration: 01/09/22 15:20 Dose: 40 mcg/kg/min, 17.42 mls/hr Documented By: CLARA Argatroban 250 mg/ Sodium (Chloride) 252.5 mls @ 4.398 mls/hr IV .Q24H PETER; Protocol Last Infusion: 01/09/22 14:36 Dose: 0 mcg/kg/min, 0 mls/hr Documented By: RAF Fentanyl (Sublimaze/Ns) 1,000 mcg in 100 mls @ 0 mls/hr IVCONT .Q0M PETER; Protocol Last Admin: 01/09/22 11:39 Dose: 25 mcg/hr, 2.5 mls/hr Documented By: CLARA Lactated Ringer's (Lr) 1,000 mls @ 150 mls/hr IVCONT .Q6H40M [facility] Last Admin: 01/09/22 12:42 Dose: 150 mls/hr Documented By: CLARA Meropenem 1 gm/ Sodium (Chloride) 100 mls @ 200 mls/hr IV Q12H [facility] Last Infusion: 01/09/22 13:54 Dose: 0 mls/hr Documented By: RAF Methylprednisolone Sodium Succinate (Methylprednisolone Sod Succ 125 Mg/2 Ml Vial) 60 mg IVPUSH Q12H [facility] Last Admin: 01/09/22 13:23 Dose: 60 mg Documented By: CLARA Naloxone HCl (Naloxone Hcl 0.4 Mg/Ml Vial) 0.2 mg IVPUSH Q2M PRN PRN Reason: Excessive sedation or RR < 8 Pharmacy Consult (Consult Rx Perform Med Rec) 1 each MISCELLANE ONCE PRN PRN Reason: Consult order Sodium Chloride (0.9 % Sodium Chloride Flush 3 Ml Syringe) 3 ml IVFLUSH QSHIFT [facility] Last Admin: 01/09/22 14:20 Dose: 3 ml Documented By: RAF Labs CBC & Chem 7: 01/09/22 04:36 01/09/22 12:18 Labs: Laboratory Results - last 24 hr 01/09/22 01/09/22 01/09/22 04:14 04:36 04:36 MCV 98.4 H D MCH 29.5 MCHC 30.0 L RDW 14.0 Plt Count 69 L D MPV 10.4 Immature Gran % (Auto) Cancelled Neut % (Auto) Cancelled Lymph % (Auto) Cancelled [place] % (Auto) Cancelled Eos % (Auto) Cancelled Baso % (Auto) Cancelled Lymph # (Auto) Cancelled [place] # (Auto) Cancelled Eos # (Auto) Cancelled Baso # (Auto) Cancelled Abs Immat Gran (auto) Cancelled Absolute Neuts (auto) Cancelled Absolute Nucleated RBC 0.000 Nucleated RBC % (auto) 0.0 Neutrophils % (Manual) 46 Band Neutrophils % 11 H Lymphocytes % (Manual) 36 Monocytes % (Manual) 5 Basophils % (Manual) 1 Metamyelocytes % 1 Abs Neuts (Manual) 8.8 H Lymphocytes # (Manual) 5.6 H Monocytes # (Manual) 0.8 Basophils # (Manual) 0.2 Metamyelocytes # 0.2 Platelet Estimate DECREASED Large Platelets PRESENT Plt Morphology Comment NOTED RBC Morphology NORMAL PT 14.0 H INR 1.2 H APTT 46.6 H D-Dimer High Sensitivty 75825 VBG pH VBG pCO2 VBG pO2 VBG HCO3 VBG O2 Saturation VBG Base Excess Anion Gap Estim Creat Clear Calc Estimated GFR POC Glucose 101 Random Glucose Lactic Acid Lactic Acid F/U @ 2Hr Calcium Phosphorus Magnesium Total Bilirubin AST ALT Alkaline Phosphatase Troponin I High Sens B-Natriuretic Peptide Total Protein Albumin Procalcitonin 01/09/22 01/09/22 01/09/22 04:36 04:36 04:36 MCV MCH MCHC RDW Plt Count MPV Immature Gran % (Auto) Neut % (Auto) Lymph % (Auto) [place] % (Auto) Eos % (Auto) Baso % (Auto) Lymph # (Auto) [place] # (Auto) Eos # (Auto) Baso # (Auto) Abs Immat Gran (auto) Absolute Neuts (auto) Absolute Nucleated RBC Nucleated RBC % (auto) Neutrophils % (Manual) Band Neutrophils % Lymphocytes % (Manual) Monocytes % (Manual) Basophils % (Manual) Metamyelocytes % Abs Neuts (Manual) Lymphocytes # (Manual) Monocytes # (Manual) Basophils # (Manual) Metamyelocytes # Platelet Estimate Large Platelets Plt Morphology Comment RBC Morphology PT INR APTT D-Dimer High Sensitivty VBG pH VBG pCO2 VBG pO2 VBG HCO3 VBG O2 Saturation VBG Base Excess Anion Gap 24 H Estim Creat Clear Calc 31.5 Estimated GFR 37 POC Glucose Random Glucose 258 H D Lactic Acid 12.3 H* Lactic Acid F/U @ 2Hr Calcium 13.0 H* D Phosphorus 9.2 H Magnesium 2.4 Total Bilirubin AST ALT Alkaline Phosphatase Troponin I High Sens 57.0 H B-Natriuretic Peptide 38 Total Protein Albumin Procalcitonin 01/09/22 01/09/22 01/09/22 04:43 06:55 07:48 MCV MCH MCHC RDW Plt Count MPV Immature Gran % (Auto) Neut % (Auto) Lymph % (Auto) [place] % (Auto) Eos % (Auto) Baso % (Auto) Lymph # (Auto) [place] # (Auto) Eos # (Auto) Baso # (Auto) Abs Immat Gran (auto) Absolute Neuts (auto) Absolute Nucleated RBC Nucleated RBC % (auto) Neutrophils % (Manual) Band Neutrophils % Lymphocytes % (Manual) Monocytes % (Manual) Basophils % (Manual) Metamyelocytes % Abs Neuts (Manual) Lymphocytes # (Manual) Monocytes # (Manual) Basophils # (Manual) Metamyelocytes # Platelet Estimate Large Platelets Plt Morphology Comment RBC Morphology PT INR APTT D-Dimer High Sensitivty VBG pH 7.00 L* 7.36 VBG pCO2 84 43 VBG pO2 40 57 VBG HCO3 21 L 24 VBG O2 Saturation 38.0 83.0 VBG Base Excess -11.6 -0.6 Anion Gap Estim Creat Clear Calc Estimated GFR POC Glucose Random Glucose Lactic Acid Lactic Acid F/U @ 2Hr 2.1 H* Calcium Phosphorus Magnesium Total Bilirubin AST ALT Alkaline Phosphatase Troponin I High Sens B-Natriuretic Peptide Total Protein Albumin Procalcitonin 01/09/22 01/09/22 01/09/22 10:05 12:18 12:18 MCV MCH MCHC RDW Plt Count MPV Immature Gran % (Auto) Neut % (Auto) Lymph % (Auto) [place] % (Auto) Eos % (Auto) Baso % (Auto) Lymph # (Auto) [place] # (Auto) Eos # (Auto) Baso # (Auto) Abs Immat Gran (auto) Absolute Neuts (auto) Absolute Nucleated RBC Nucleated RBC % (auto) Neutrophils % (Manual) Band Neutrophils % Lymphocytes % (Manual) Monocytes % (Manual) Basophils % (Manual) Metamyelocytes % Abs Neuts (Manual) Lymphocytes # (Manual) Monocytes # (Manual) Basophils # (Manual) Metamyelocytes # Platelet Estimate Large Platelets Plt Morphology Comment RBC Morphology PT INR APTT 150.2 H* D D-Dimer High Sensitivty VBG pH VBG pCO2 VBG pO2 VBG HCO3 VBG O2 Saturation VBG Base Excess Anion Gap 18 Estim Creat Clear Calc 29.0 Estimated GFR 34 POC Glucose Random Glucose 148 H D Lactic Acid 2.0 Lactic Acid F/U @ 2Hr Calcium 10.0 D Phosphorus Magnesium Total Bilirubin 0.6 AST 823 H ALT 784 H Alkaline Phosphatase 124 H D Troponin I High Sens B-Natriuretic Peptide Total Protein 6.5 Albumin 3.2 L D Procalcitonin 01/09/22 01/09/22 01/09/22 12:18 12:24 14:13 MCV MCH MCHC RDW Plt Count MPV Immature Gran % (Auto) Neut % (Auto) Lymph % (Auto) [place] % (Auto) Eos % (Auto) Baso % (Auto) Lymph # (Auto) [place] # (Auto) Eos # (Auto) Baso # (Auto) Abs Immat Gran (auto) Absolute Neuts (auto) Absolute Nucleated RBC Nucleated RBC % (auto) Neutrophils % (Manual) Band Neutrophils % Lymphocytes % (Manual) Monocytes % (Manual) Basophils % (Manual) Metamyelocytes % Abs Neuts (Manual) Lymphocytes # (Manual) Monocytes # (Manual) Basophils # (Manual) Metamyelocytes # Platelet Estimate Large Platelets Plt Morphology Comment RBC Morphology PT INR APTT 98.1 H* D D-Dimer High Sensitivty VBG pH 7.43 VBG pCO2 28 VBG pO2 46 VBG HCO3 19 L VBG O2 Saturation 73.0 VBG Base Excess -3.3 Anion Gap Estim Creat Clear Calc Estimated GFR POC Glucose Random Glucose Lactic Acid Lactic Acid F/U @ 2Hr Calcium Phosphorus Magnesium Total Bilirubin AST ALT Alkaline Phosphatase Troponin I High Sens B-Natriuretic Peptide Total Protein Albumin Procalcitonin 23.03 Procedures Date of Service Date of Service: 01/09/22 Progress Note: A&P Assessment and plan (1) Eschar of lower leg: Status: Acute Assessment and Plan: 2 areas have been debrided on the left leg - posterior upper calf and lateral distal lower leg Both areas open with good granulation Continue silver alginate dressings - okay to change every other day ICU care Currently being treated for PE, question of sepsis On anticoagulation Creatinine elevated as well Procalcitonin also elevated Time Spent With Patient Time: Total time spent is greater than 50% in coordination of care (as documented) at patient's floor/unit and/or counseling patient: Quality Stroke Does the patient have a stroke diagnosis?: No VTE Prior VTE?: No VTE Risk Level:: Medical - moderate - high VTE Device Contraindication: Treatment Not Indicated VTE Drug Contraindication: N/A - Med Ordered
[2022-01-09 18:19] LABS: Partial Thromboplastin Time 69.6 SEC (24.1-38.0)
[2022-01-09] MEDS: propofoL 1,000 MG/100 ML VIAL 13.06 MG IVCONT ×2 (18:32→23:48)
[2022-01-09 20:50] LABS: Partial Thromboplastin Time 59.6 SEC (24.1-38.0)
[2022-01-10] VITALS (34 sets, daily range): BP systolic 96–171; BP diastolic 61–107; PULSE 61–110; RESP 10–27; TEMP 34.8–37; O2SAT 94–100; BMI 27.4; BMI 25.6
[2022-01-10 00:55] LABS: Partial Thromboplastin Time 63.9 SEC (24.1-38.0)
[2022-01-10] MEDS: Lactated Ringers 1,000 ML 150 ML IVCONT (01:20)
[2022-01-10 05:07] LABS: VBG Base Excess -3.7 mmol/L; VBG HCO3 19 mmol/L (22-26); VBG pCO2 30 mmHg; VBG pH 7.41 (7.32-7.43); VBG pO2 55 mmHg
[2022-01-10 05:16] LABS: MANUAL DIFF FLAG NO
[2022-01-10 05:18] LABS: Basophils Percent Auto 0.2 % (0-2); Hematocrit 42.5 % (42.0-52.0); Hemoglobin 13.7 g/dl (14.0-18.0); Imm Gran Abs Auto 0.25 X10*3/uL (0.00-0.03); Imm Gran Pct Auto 1.6 % (0.0-0.4); Lymphocytes Absolute Auto 1.6 X10*3/uL (1.2-4.9); Lymphocytes Percent Auto 10.5 % (20-40); Mean Corpuscular HGB Conc 32.2 g/dl (31.0-36.0); Mean Corpuscular Hemoglobin 29.3 pg (27.0-33.0); Mean Corpuscular Volume 90.8 fL (80.0-98.0); Mean Platelet Volume 9.6 fL (9.4-12.4); Monocytes Absolute Auto 0.3 X10*3/uL (0.1-1.2); Monocytes Percent Auto 1.8 % (2-11); Neutrophils Absolute Auto 13.3 x10*3/uL (2.0-8.3); Neutrophils Percent Auto 85.9 % (45-73); Platelet Count 120 X10*3/uL (160-400); Red Blood Count 4.68 X10*6/uL (4.60-5.80); Red Cell Distribution Width 14.2 % (11.0-16.0); White Blood Count 15.5 X10*3/uL (4.8-10.8)
[2022-01-10 05:23] LABS: Venous Blood Gas Refer to POC result
[2022-01-10 05:33] LABS: INTERNATIONAL NORM RATIO 1.6 (0.9-1.1); Prothrombin Time 18.1 SEC (10.0-13.1)
[2022-01-10 05:40] LABS: Partial Thromboplastin Time 61.9 SEC (24.1-38.0)
[2022-01-10 05:41] LABS: Alanine Aminotransferase 510 U/L (0-40); Alkaline Phosphatase 96 U/L (39-117); Anion Gap 16 (12-20); Aspartate Amino Transferase 190 U/L (5-37); Bilirubin Direct 0.3 mg/dL (0.0-0.5); Bilirubin Total 0.5 mg/dL (0.0-1.0); Blood Urea Nitrogen 30 mg/dL (9-16); Carbon Dioxide 22 mmol/L (22-29); Chloride 107 mmol/L (96-108); Estimated Glomerular Filt Rate 42; Glucose Random 174 mg/dL (60-115); Magnesium 1.8 mg/dL (1.6-2.6); Phosphorus 4.5 mg/dL (2.7-4.5); Potassium 4.4 mmol/L (3.3-5.1); Sodium 141 mmol/L (135-145); Total Protein 5.6 g/dL (6.5-8.0)
[2022-01-10] MEDS: propofoL 1,000 MG/100 ML VIAL 13.06 MG IVCONT (06:25)
[2022-01-10] MEDS: 0.9 % Sodium Chloride Flush 3 ML SYRINGE IVFLUSH ×2 (07:53→13:49)
[2022-01-10] MEDS: Lactated Ringers 1,000 ML 100 ML IVCONT ×2 (07:53→17:01)
[2022-01-10] MEDS: Albuterol/Iprat 2.5/0.5MG 3 ML AMPUL.NEB INHALE ×4 (08:02→20:31)
--- NOTE | 2022-01-10 08:24 | P.PNCC_ITS ---
Subjective Subjective Date of Service: 01/10/22 Interval History: 76-year-old male in the hospital for a 2 and half weeks receiving several courses of antibiotics that the last of which was delivered one-week ago and this is for a in an ulcerated wound and underwent several debridements all showing necrotic skin edges but no evidence of vasculitic vasculitis and it is rather extensive certainly down to deep tissue and also because of underlying rheumatoid arthritis and Sjogren syndrome was on steroids were 1st week at 20 mg daily 2nd week at 10 mg abruptly stopped or at least 30 hours before this presentation and noted for several hours during that day to become increasingly hypoxic then found unresponsive and then pulseless and there was a 15 minute resuscitation until achieving ROSC and of course intubated and sent down here and when I saw the drop in platelets abruptly by more than 50% to 69,000 on heparin DVT prophylaxis I was afraid of heparin-induced thrombosis we did a stat CT scan not withstanding his 31 cc GFR and indeed it showed extensive bilateral pulmonary emboli heparin stopped and platelet antibody was sent and patient started on argatroban therapeutic ever since oxygenating via the vent the X the very very significant lactic acidosis resolved gradually over the hours with adventist of peripheral pulses and eventually urine output and then by today t he peak creatinine of 1.95 now is down to 1.62 with improvement in the degree of non oliguria even though the patient's periphery all 4 extremities are cold it stands out much more so on the left upper extremity with a less audible S palpable pulse there her an with a lot of tense forearm soft tissue swelling so just to be sure there is no compartment we with an ultrasound the upper extremity but let liver function tests are improving as well that probably a manifestation of hepatic ischemia all resolving stable CBC but with low-grade temperature yesterday there was certainly concerns about infection so he was cultured empirically given antibiotics as well and we considered the portal of entry to be the open ulcer on the left lower extremity and that is where we stand now but most of this picture is resolving and more importantly he started waking up of fairly early without any neurological sequelae just yet so this is much better prognosis so he was also given stress dose steroids and I inotropic and pressor support and will reassess daily by bedside echo the state of his right ventricle which clearly demonstrated acute cor pulmonale where was dilated and diffusely hypo functional initially in a pushing the interventricular septum towards the left ventricle and that is affect seem to relax never getting to a an actual septal paradox Critical Care Time (minutes): 60 Physical Exam Vital Signs: Vital Signs: Last Vital Signs Temp 98.2 F 01/10/22 08:00 Pulse 110 H 01/10/22 08:03 Resp 27 H 01/10/22 08:03 BP 96/61 01/10/22 08:00 Pulse Ox 96 01/10/22 08:00 O2 Del Method 01/10/22 08:00 O2 Flow Rate 1.0 01/08/22 19:35 FiO2 40 01/10/22 08:00 Oxygen Flow Rate 2 12/29/21 13:00 BMI result Body Mass Index 27.4 Responsive a nonfocal Good bilateral carotid upstrokes stable moderate CVP Abdomen benign no organomegaly No cellulitis of the skin dressing wrapped on the left lower extremity wound all 4 distal extremities so called but definitely a big temperature and color difference and even pulse difference at the left hand and that is going to have a duplex scan done Objective Data Labs CBC & Chem 7: 01/10/22 04:55 01/10/22 04:55 Labs: Laboratory Results - last 24 hr 01/09/22 01/09/22 01/09/22 10:05 12:18 12:18 WBC RBC Hgb Hct MCV MCH MCHC RDW Plt Count MPV Immature Gran % (Auto) Neut % (Auto) Lymph % (Auto) [place] % (Auto) Eos % (Auto) Baso % (Auto) Lymph # (Auto) [place] # (Auto) Eos # (Auto) Baso # (Auto) Abs Immat Gran (auto) Absolute Neuts (auto) Absolute Nucleated RBC Nucleated RBC % (auto) PT INR APTT 150.2 H* D VBG pH VBG pCO2 VBG pO2 VBG HCO3 VBG O2 Saturation VBG Base Excess Sodium 140 Potassium 4.7 Chloride 105 Carbon Dioxide 22 Anion Gap 18 BUN 32 H Creatinine 1.95 H Estim Creat Clear Calc 29.0 Estimated GFR 34 Random Glucose 148 H D Lactic Acid 2.0 Calcium 10.0 D Phosphorus Magnesium Total Bilirubin 0.6 Direct Bilirubin AST 823 H ALT 784 H Alkaline Phosphatase 124 H D Total Protein 6.5 Albumin 3.2 L D Procalcitonin 01/09/22 01/09/22 01/09/22 12:18 12:24 14:13 WBC RBC Hgb Hct MCV MCH MCHC RDW Plt Count MPV Immature Gran % (Auto) Neut % (Auto) Lymph % (Auto) [place] % (Auto) Eos % (Auto) Baso % (Auto) Lymph # (Auto) [place] # (Auto) Eos # (Auto) Baso # (Auto) Abs Immat Gran (auto) Absolute Neuts (auto) Absolute Nucleated RBC Nucleated RBC % (auto) PT INR APTT 98.1 H* D VBG pH 7.43 VBG pCO2 28 VBG pO2 46 VBG HCO3 19 L VBG O2 Saturation 73.0 VBG Base Excess -3.3 Sodium Potassium Chloride Carbon Dioxide Anion Gap BUN Creatinine Estim Creat Clear Calc Estimated GFR Random Glucose Lactic Acid Calcium Phosphorus Magnesium Total Bilirubin Direct Bilirubin AST ALT Alkaline Phosphatase Total Protein Albumin Procalcitonin 23.03 01/09/22 01/09/22 01/09/22 17:42 20:27 23:33 WBC RBC Hgb Hct MCV MCH MCHC RDW Plt Count MPV Immature Gran % (Auto) Neut % (Auto) Lymph % (Auto) [place] % (Auto) Eos % (Auto) Baso % (Auto) Lymph # (Auto) [place] # (Auto) Eos # (Auto) Baso # (Auto) Abs Immat Gran (auto) Absolute Neuts (auto) Absolute Nucleated RBC Nucleated RBC % (auto) PT INR APTT 69.6 H* D 59.6 H 63.9 H* VBG pH VBG pCO2 VBG pO2 VBG HCO3 VBG O2 Saturation VBG Base Excess Sodium Potassium Chloride Carbon Dioxide Anion Gap BUN Creatinine Estim Creat Clear Calc Estimated GFR Random Glucose Lactic Acid Calcium Phosphorus Magnesium Total Bilirubin Direct Bilirubin AST ALT Alkaline Phosphatase Total Protein Albumin Procalcitonin 01/10/22 01/10/22 01/10/22 03:00 04:55 04:55 WBC 15.5 H RBC 4.68 Hgb 13.7 L Hct 42.5 MCV 90.8 D MCH 29.3 MCHC 32.2 RDW 14.2 Plt Count 120 L D MPV 9.6 Immature Gran % (Auto) 1.6 H Neut % (Auto) 85.9 H Lymph % (Auto) 10.5 L [place] % (Auto) 1.8 L Eos % (Auto) 0.0 Baso % (Auto) 0.2 Lymph # (Auto) 1.6 [place] # (Auto) 0.3 Eos # (Auto) 0.0 Baso # (Auto) 0.0 Abs Immat Gran (auto) 0.25 H Absolute Neuts (auto) 13.3 H Absolute Nucleated RBC 0.000 Nucleated RBC % (auto) 0.0 PT 18.1 H INR 1.6 H APTT 68.0 H* 61.9 H* VBG pH VBG pCO2 VBG pO2 VBG HCO3 VBG O2 Saturation VBG Base Excess Sodium Potassium Chloride Carbon Dioxide Anion Gap BUN Creatinine Estim Creat Clear Calc Estimated GFR Random Glucose Lactic Acid Calcium Phosphorus Magnesium Total Bilirubin Direct Bilirubin AST ALT Alkaline Phosphatase Total Protein Albumin Procalcitonin 01/10/22 01/10/22 04:55 05:01 WBC RBC Hgb Hct MCV MCH MCHC RDW Plt Count MPV Immature Gran % (Auto) Neut % (Auto) Lymph % (Auto) [place] % (Auto) Eos % (Auto) Baso % (Auto) Lymph # (Auto) [place] # (Auto) Eos # (Auto) Baso # (Auto) Abs Immat Gran (auto) Absolute Neuts (auto) Absolute Nucleated RBC Nucleated RBC % (auto) PT INR APTT VBG pH 7.41 VBG pCO2 30 VBG pO2 55 VBG HCO3 19 L VBG O2 Saturation 84.0 VBG Base Excess -3.7 Sodium 141 Potassium 4.4 Chloride 107 Carbon Dioxide 22 Anion Gap 16 BUN 30 H Creatinine 1.62 H Estim Creat Clear Calc 35.0 Estimated GFR 42 Random Glucose 174 H Lactic Acid Calcium 9.0 D Phosphorus 4.5 Magnesium 1.8 Total Bilirubin 0.5 Direct Bilirubin 0.3 AST 190 H ALT 510 H Alkaline Phosphatase 96 D Total Protein 5.6 L Albumin 3.0 L Procalcitonin Microbiology Microbiology Results: Microbiology 01/09/22 04:38 Blood - Venous Blood Culture - Preliminary No growth after 24 hours. 01/09/22 04:38 Blood - Venous Blood Culture - Preliminary Prelim: GPC Gram Stain only 12/22/21 11:41 Blood - Venous Blood Culture - Final No growth after 5 days. 12/22/21 11:41 Blood - Venous Blood Culture - Final No growth after 5 days. Progress Note: A&P Assessment and plan (1) ATN (acute tubular necrosis): Status: Acute (2) Acute pulmonary embolism with acute cor pulmonale: Status: Acute (3) Acute pulmonary embolism: Status: Acute (4) HTN (hypertension): Status: Acute (5) Sjogren's disease: Status: Acute (6) Rheumatoid arthritis: Status: Acute (7) COPD (chronic obstructive pulmonary disease): Status: Acute (8) CKD (chronic kidney disease) stage 3, GFR 30-59 ml/min: Status: Acute (9) Cardiac arrest: Status: Acute (10) Eschar of lower leg: Status: Acute (11) Muscle spasm: Status: Acute (12) Non-healing wound of left lower extremity: Status: Acute (13) Chronic ulcer of leg: Status: Acute (14) Cellulitis: Status: Acute (15) Guaiac positive stools: Status: Acute (16) Annual physical exam: Status: Acute (17) Hypercalcemia: Status: Acute (18) Leg pain, bilateral: Status: Acute (19) Chronic venous insufficiency: Status: Acute Plan Ultrasound duplex including soft tissue of left upper extremity because of relative ischemia and hopefully slowly wean the pressor support that he is on for the sake of right ventricular function clearly continue ventilator today and based on some of culture returns consider maintaining his antibiotics and certainly his steroids Quality Stroke Does the patient have a stroke diagnosis?: No VTE Prior VTE?: No VTE Risk Level:: Medical - moderate - high VTE Device Contraindication: Treatment Not Indicated VTE Drug Contraindication: N/A - Med Ordered
[2022-01-10 08:33] LABS: Partial Thromboplastin Time 63.9 SEC (24.1-38.0)
[2022-01-10] MEDS: Argatroban 250 MG in 0.9 % Sodium Chloride 250 ML IV (08:52)
--- NOTE | 2022-01-10 08:52 | P.PNGS_ITS ---
Subjective Subjective Date of Service: 01/10/22 Interval history: remains on vent still on low dose pressors urine output much improved Physical Exam Vital Signs: Vital Signs: Last Vital Signs Temp 98.2 F 01/10/22 08:00 Pulse 110 H 01/10/22 08:03 Resp 27 H 01/10/22 08:03 BP 96/61 01/10/22 08:00 Pulse Ox 96 01/10/22 08:00 O2 Del Method 01/10/22 08:00 O2 Flow Rate 1.0 01/08/22 19:35 FiO2 40 01/10/22 08:32 Oxygen Flow Rate 2 12/29/21 13:00 BMI result Body Mass Index 27.4 Const: Other: on vent, sedated but starting to wake up Resp: Other: on ventilator Cardio: Rhythm: regular rhythm GI: Palpation (GI): Soft to palpation Extrem: Other: left lower dressings dry; changes on skin on right ankle area are chronic edema of left forearm - likely from IV infiltration Objective Data Active Medications Albuterol/Ipratropium (Albuterol/Iprat 2.5/0.5mg 3 Ml Ampul.Neb) 3 ml INHALE RQ4H WHILE AWAKE [facility] Last Admin: 01/10/22 08:02 Dose: 3 ml Documented By: SHIRLEY Chlorhexidine Gluconate (Chlorhexidine Gluc Oral Rinse 15 Ml Mouthwash) 15 ml BUCCAL TID [facility] Last Admin: 01/09/22 22:02 Dose: 15 ml Documented By: KESHA Docusate Sodium (Docusate Sodium 100 Mg Capsule) 100 mg PO DAILY [facility] Fluticasone/Vilanterol (Fluticasone/Vilanterol 100/25 Blst.W.Dev) 1 puff INHALE DAILY PRN PRN Reason: Shortness Of Breath Norepinephrine Bitartrate (Levophed) 8 mg in 250 mls @ 0 mls/hr IVCONT .Q0M [facility]; Protocol Last Admin: 01/10/22 05:12 Dose: 0.11 mcg/kg/min, 14.97 mls/hr Documented By: KESHA Propofol (Diprivan) 1,000 mg in 100 mls @ 0 mls/hr IVCONT .Q0M [facility]; Protocol Last Titration: 01/10/22 08:15 Dose: 40 mcg/kg/min, 17.42 mls/hr Documented By: GAYE Argatroban 250 mg/ Sodium (Chloride) 252.5 mls @ 4.398 mls/hr IV .Q24H [facility]; Protocol Last Infusion: 01/10/22 05:44 Dose: 1 mcg/kg/min, 4.4 mls/hr Documented By: NORMAN Fentanyl (Sublimaze/Ns) 1,000 mcg in 100 mls @ 0 mls/hr IVCONT .Q0M [facility]; Protocol Last Titration: 01/10/22 08:15 Dose: 50 mcg/hr, 5 mls/hr Documented By: GAYE Lactated Ringer's (Lr) 1,000 mls @ 150 mls/hr IVCONT .Q6H40M [facility] Last Admin: 01/10/22 07:53 Dose: 100 mls/hr Documented By: GAYE Meropenem 1 gm/ Sodium (Chloride) 100 mls @ 200 mls/hr IV Q12H [facility] Last Infusion: 01/10/22 01:51 Dose: 0 mls/hr Documented By: KESHA Methylprednisolone Sodium Succinate (Methylprednisolone Sod Succ 125 Mg/2 Ml Vial) 60 mg IVPUSH Q12H [facility] Last Admin: 01/09/22 23:48 Dose: 60 mg Documented By: KESHA Naloxone HCl (Naloxone Hcl 0.4 Mg/Ml Vial) 0.2 mg IVPUSH Q2M PRN PRN Reason: Excessive sedation or RR < 8 Pharmacy Consult (Consult Rx Perform Med Rec) 1 each MISCELLANE ONCE PRN PRN Reason: Consult order Sodium Chloride (0.9 % Sodium Chloride Flush 3 Ml Syringe) 3 ml IVFLUSH QSHIFT [facility] Last Admin: 01/10/22 07:53 Dose: 3 ml Documented By: GAYE Labs CBC & Chem 7: 01/10/22 04:55 01/10/22 04:55 Labs: Laboratory Results - last 24 hr 01/09/22 01/09/22 01/09/22 10:05 12:18 12:18 MCV MCH MCHC RDW Plt Count MPV Immature Gran % (Auto) Neut % (Auto) Lymph % (Auto) [place] % (Auto) Eos % (Auto) Baso % (Auto) Lymph # (Auto) [place] # (Auto) Eos # (Auto) Baso # (Auto) Abs Immat Gran (auto) Absolute Neuts (auto) Absolute Nucleated RBC Nucleated RBC % (auto) PT INR APTT 150.2 H* D VBG pH VBG pCO2 VBG pO2 VBG HCO3 VBG O2 Saturation VBG Base Excess Anion Gap 18 Estim Creat Clear Calc 29.0 Estimated GFR 34 Random Glucose 148 H D Lactic Acid 2.0 Calcium 10.0 D Phosphorus Magnesium Total Bilirubin 0.6 Direct Bilirubin AST 823 H ALT 784 H Alkaline Phosphatase 124 H D Total Protein 6.5 Albumin 3.2 L D Procalcitonin 01/09/22 01/09/22 01/09/22 12:18 12:24 14:13 MCV MCH MCHC RDW Plt Count MPV Immature Gran % (Auto) Neut % (Auto) Lymph % (Auto) [place] % (Auto) Eos % (Auto) Baso % (Auto) Lymph # (Auto) [place] # (Auto) Eos # (Auto) Baso # (Auto) Abs Immat Gran (auto) Absolute Neuts (auto) Absolute Nucleated RBC Nucleated RBC % (auto) PT INR APTT 98.1 H* D VBG pH 7.43 VBG pCO2 28 VBG pO2 46 VBG HCO3 19 L VBG O2 Saturation 73.0 VBG Base Excess -3.3 Anion Gap Estim Creat Clear Calc Estimated GFR Random Glucose Lactic Acid Calcium Phosphorus Magnesium Total Bilirubin Direct Bilirubin AST ALT Alkaline Phosphatase Total Protein Albumin Procalcitonin 23.03 01/09/22 01/09/22 01/09/22 17:42 20:27 23:33 MCV MCH MCHC RDW Plt Count MPV Immature Gran % (Auto) Neut % (Auto) Lymph % (Auto) [place] % (Auto) Eos % (Auto) Baso % (Auto) Lymph # (Auto) [place] # (Auto) Eos # (Auto) Baso # (Auto) Abs Immat Gran (auto) Absolute Neuts (auto) Absolute Nucleated RBC Nucleated RBC % (auto) PT INR APTT 69.6 H* D 59.6 H 63.9 H* VBG pH VBG pCO2 VBG pO2 VBG HCO3 VBG O2 Saturation VBG Base Excess Anion Gap Estim Creat Clear Calc Estimated GFR Random Glucose Lactic Acid Calcium Phosphorus Magnesium Total Bilirubin Direct Bilirubin AST ALT Alkaline Phosphatase Total Protein Albumin Procalcitonin 01/10/22 01/10/22 01/10/22 03:00 04:55 04:55 MCV 90.8 D MCH 29.3 MCHC 32.2 RDW 14.2 Plt Count 120 L D MPV 9.6 Immature Gran % (Auto) 1.6 H Neut % (Auto) 85.9 H Lymph % (Auto) 10.5 L [place] % (Auto) 1.8 L Eos % (Auto) 0.0 Baso % (Auto) 0.2 Lymph # (Auto) 1.6 [place] # (Auto) 0.3 Eos # (Auto) 0.0 Baso # (Auto) 0.0 Abs Immat Gran (auto) 0.25 H Absolute Neuts (auto) 13.3 H Absolute Nucleated RBC 0.000 Nucleated RBC % (auto) 0.0 PT 18.1 H INR 1.6 H APTT 68.0 H* 61.9 H* VBG pH VBG pCO2 VBG pO2 VBG HCO3 VBG O2 Saturation VBG Base Excess Anion Gap Estim Creat Clear Calc Estimated GFR Random Glucose Lactic Acid Calcium Phosphorus Magnesium Total Bilirubin Direct Bilirubin AST ALT Alkaline Phosphatase Total Protein Albumin Procalcitonin 01/10/22 01/10/22 01/10/22 04:55 05:01 08:00 MCV MCH MCHC RDW Plt Count MPV Immature Gran % (Auto) Neut % (Auto) Lymph % (Auto) [place] % (Auto) Eos % (Auto) Baso % (Auto) Lymph # (Auto) [place] # (Auto) Eos # (Auto) Baso # (Auto) Abs Immat Gran (auto) Absolute Neuts (auto) Absolute Nucleated RBC Nucleated RBC % (auto) PT INR APTT 63.9 H* VBG pH 7.41 VBG pCO2 30 VBG pO2 55 VBG HCO3 19 L VBG O2 Saturation 84.0 VBG Base Excess -3.7 Anion Gap 16 Estim Creat Clear Calc 35.0 Estimated GFR 42 Random Glucose 174 H Lactic Acid Calcium 9.0 D Phosphorus 4.5 Magnesium 1.8 Total Bilirubin 0.5 Direct Bilirubin 0.3 AST 190 H ALT 510 H Alkaline Phosphatase 96 D Total Protein 5.6 L Albumin 3.0 L Procalcitonin Microbiology Microbiology Results: Microbiology 01/09/22 04:38 Blood Culture - Preliminary Blood - Venous No growth after 24 hours. 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
[2022-01-10] MEDS: Chlorhexidine Gluc Oral Rinse 15 ML MOUTHWASH BUCCAL ×3 (08:54→21:15)
[2022-01-10] MEDS: propofoL 1,000 MG/100 ML VIAL 17.42 MG IVCONT ×2 (11:16→23:02)
--- NOTE | 2022-01-10 11:54 | PC.NURSE ---
Addendum entered by Cristhian Cordova RN 01/10/22 18:40: PT afebrile, VSS with Levophed gtt - see EMAR Left arm cool, dusky, and swollen - US BUE obtained - Doppler pulses bilaterally RLE no Doppler pedal pulse, noted in Pos. Tibial via Doppler LLE Pedal pulse via Doppler ARGATROBAN gtt titrated per MD updated by RN and MD Total bath, Q2hr reposition, turning bed, prevalon system utilized with pillows and wedges, barrier cream applied Original Note: PT moved from 261 to 254 to be placed on turning bed. Turning bed zeroed and new weight obtained of 72.0 Kg. New weight entered in EMAR.
[2022-01-10 12:33] LABS: Partial Thromboplastin Time 63.5 SEC (24.1-38.0)
[2022-01-10] MEDS: methylPREDNISolone Sod Succ 125 MG/2 ML VIAL 60 MG IVPUSH ×2 (12:53→23:38)
[2022-01-10] MEDS: fentaNYL citrate/NS 1,000 MCG/100 ML PLAST..BAG 5 MCG IVCONT (13:35)
[2022-01-10] MEDS: vancomycin HCL 1,250 MG in 0.9 % Sodium Chloride 250 ML 166.67 MG IV (13:48)
[2022-01-10 13:57] LABS: Vancomycin Trough 8.9 mcg/mL (10.0-20.0)
--- NOTE | 2022-01-10 14:22 | HE.PHANOTE ---
Level came back at 8.9, if provider chooses to cont, should decrease dose to 1 gm q24 based on current labs
[2022-01-10 14:39] LABS: Partial Thromboplastin Time 59.9 SEC (24.1-38.0)
[2022-01-10] MEDS: propofoL 1,000 MG/100 ML VIAL 15.24 MG IVCONT (17:02)
[2022-01-10 17:22] LABS: Partial Thromboplastin Time 71.1 SEC (24.1-38.0)
[2022-01-10 20:07] LABS: Partial Thromboplastin Time 65.2 SEC (24.1-38.0)
[2022-01-11] VITALS (34 sets, daily range): BP systolic 104–152; BP diastolic 66–95; PULSE 58–111; RESP 10–46; TEMP 34.8–37.2; O2SAT 5–98; BMI 25.6
[2022-01-11 00:22] LABS: Partial Thromboplastin Time 63.9 SEC (24.1-38.0)
[2022-01-11] MEDS: Lactated Ringers 1,000 ML 100 ML IVCONT ×2 (02:53→13:24)
[2022-01-11] MEDS: propofoL 1,000 MG/100 ML VIAL 17.42 MG IVCONT (02:54)
[2022-01-11 03:25] LABS: Partial Thromboplastin Time 71.3 SEC (24.1-38.0)
[2022-01-11] MEDS: fentaNYL citrate/NS 1,000 MCG/100 ML PLAST..BAG 5 MCG IVCONT (03:40)
[2022-01-11 05:55] LABS: Basophils Percent Auto 0.1 % (0-2); Hematocrit 34.2 % (42.0-52.0); Hemoglobin 10.8 g/dl (14.0-18.0); Imm Gran Abs Auto 0.18 X10*3/uL (0.00-0.03); Imm Gran Pct Auto 0.9 % (0.0-0.4); Lymphocytes Absolute Auto 0.8 X10*3/uL (1.2-4.9); Lymphocytes Percent Auto 4.2 % (20-40); MANUAL DIFF FLAG SCAN; Mean Corpuscular HGB Conc 31.6 g/dl (31.0-36.0); Mean Corpuscular Hemoglobin 29.1 pg (27.0-33.0); Mean Corpuscular Volume 92.2 fL (80.0-98.0); Mean Platelet Volume 10.1 fL (9.4-12.4); Monocytes Absolute Auto 0.6 X10*3/uL (0.1-1.2); Neutrophils Absolute Auto 17.6 x10*3/uL (2.0-8.3); Neutrophils Percent Auto 91.8 % (45-73); Platelet Count 132 X10*3/uL (160-400); Red Blood Count 3.71 X10*6/uL (4.60-5.80); Red Cell Distribution Width 13.9 % (11.0-16.0); SCAN SMEAR FLAG 1; White Blood Count 19.2 X10*3/uL (4.8-10.8)
[2022-01-11 06:02] LABS: Venous Blood Gas Refer to POC result
[2022-01-11 06:06] LABS: Partial Thromboplastin Time 68.5 SEC (24.1-38.0)
[2022-01-11 06:25] LABS: Alanine Aminotransferase 294 U/L (0-40); Albumin Level 2.8 g/dL (3.5-5.0); Alkaline Phosphatase 68 U/L (39-117); Anion Gap 13 (12-20); Aspartate Amino Transferase 59 U/L (5-37); Bilirubin Direct 0.2 mg/dL (0.0-0.5); Bilirubin Total 0.4 mg/dL (0.0-1.0); Blood Urea Nitrogen 26 mg/dL (9-16); Calcium 8.2 mg/dL (8.4-10.2); Carbon Dioxide 25 mmol/L (22-29); Chloride 107 mmol/L (96-108); Creatinine Clr Calc Pharmacy 49.7; Estimated Glomerular Filt Rate > 60; Glucose Random 155 mg/dL (60-115); Magnesium 1.8 mg/dL (1.6-2.6); Phosphorus 2.9 mg/dL (2.7-4.5); Potassium 4.2 mmol/L (3.3-5.1); Sodium 141 mmol/L (135-145)
[2022-01-11 06:29] LABS: SLIDE REVIEW VERIFIED
[2022-01-11 06:37] LABS: VBG Base Excess 1.1 mmol/L; VBG HCO3 25 mmol/L (22-26); VBG pCO2 36 mmHg; VBG pH 7.43 (7.32-7.43); VBG pO2 51 mmHg
[2022-01-11] MEDS: propofoL 1,000 MG/100 ML VIAL 21.77 MG IVCONT (07:44)
[2022-01-11] MEDS: Albuterol/Iprat 2.5/0.5MG 3 ML AMPUL.NEB INHALE ×4 (08:08→20:50)
[2022-01-11] MEDS: 0.9 % Sodium Chloride Flush 3 ML SYRINGE IVFLUSH ×3 (08:49→23:23)
[2022-01-11] MEDS: Argatroban 250 MG in 0.9 % Sodium Chloride 250 ML 8.8 MG IV (08:49)
[2022-01-11] MEDS: Chlorhexidine Gluc Oral Rinse 15 ML MOUTHWASH BUCCAL ×3 (08:51→21:52)
[2022-01-11 09:26] LABS: Partial Thromboplastin Time 73.4 SEC (24.1-38.0)
[2022-01-11 12:18] LABS: Partial Thromboplastin Time 67.5 SEC (24.1-38.0)
[2022-01-11] MEDS: fentaNYL citrate/PF 100 MCG/2 ML VIAL 50 MCG IVPUSH ×2 (13:30→21:44)
[2022-01-11] MEDS: methylPREDNISolone Sod Succ 125 MG/2 ML VIAL 60 MG IVPUSH ×2 (13:51→23:23)
[2022-01-11 14:53] LABS: Partial Thromboplastin Time 72.2 SEC (24.1-38.0)
--- NOTE | 2022-01-11 15:23 | P.PNCC_ITS ---
Subjective Subjective Date of Service: 01/11/22 Interval History: 76-year-old male with underlying rheumatoid arthritis who was on a monthly infusion of a monoclonal antibody but has not received it since November they missed out on December and also has Sjogren syndrome and has been dealing with this long- term issue with full-thickness skin loss very very large areas below the knee of his left lower extremity and a looked like pyoderma and has been repeatedly debrided with tissue being sent to pathology but there was no indication of of a vasculitis and came in for antibiotic treatment and pain control treatment for these lesions on his feet had been in for at least 2 and half to 3 weeks but was placed on heparin prophylaxis and all of a sudden has a primary hypoxic induced cardiac arrest in a with a pulseless electrical activity was intubated and had a 15 minute resuscitation to restore circulation and just before this happened there was a precipitous fall in his platelets I was concerned obviously with heparin-induced thrombocytopenia/hypercoagulability stop the heparin sent off antibody started him on argatroban he went for an emergent CT angiogram which was positive for bilateral pulmonary emboli and bedside echo showed preserved LV function but clear-cut dilatation and hypokinesis of the right ventricle with a pressure effect on the interventricular septum indicating an acute cor pulmonale and he required on inotropics lasts pressor support placement of central line i ntubation currently extubated successfully today and he is awake and alert but he does require fentanyl for pain control He was cultured because we question a possible septic issue he had a stunning i ncrease in his white count but found no source and but we have concerns because of the multiple large open areas of skin even though not cellulitic still a portal of entry so initially covered him but cultures have thus far remained negative He had been on prednisone which was abruptly stopped about a day and a half be before that and because of his hypotension we went back on methylprednisolone a nd be that over time could be slowly tapered and I will send off markers looking for activity which apparently do wax and wane in his case namely sed rate and CRP and maybe at some point and infusion could be arranged while still in inpatient once the brings in the information about this biological that he is on and once felt safe a can convert him from argatroban possibly to an oral anticoagulant of your choice Critical Care Time (minutes): 60 Physical Exam Vital Signs: Vital Signs: Last Vital Signs Temp 98.6 F 01/11/22 14:38 Pulse 11 L 01/11/22 14:38 Resp 13 01/11/22 14:38 BP 107/74 01/11/22 14:38 Pulse Ox 90 L 01/11/22 14:38 O2 Del Method 01/11/22 14:38 O2 Flow Rate 5 01/11/22 14:00 FiO2 40 01/11/22 13:07 Oxygen Flow Rate 2 12/29/21 13:00 BMI result Body Mass Index 25.6 Awake and alert 122/70 with a mean of 85 respiratory rate is 19 saturation 93% heart rate 100 in sinus He has got very distended left upper extremity and there was a tight compartment but with excellent preservation of arterial inflow so there was no compartment issue but the entire distal venous system is it occluded by thrombus namely brachial and basilic and cephalic and as a result literally has a cooler left hand as well as cerulea Objective Data Labs CBC & Chem 7: 01/11/22 05:10 01/11/22 05:10 Labs: Laboratory Results - last 24 hr 01/10/22 01/10/22 01/10/22 16:56 19:20 23:20 WBC RBC Hgb Hct MCV MCH MCHC RDW Plt Count MPV Immature Gran % (Auto) Neut % (Auto) Lymph % (Auto) [place] % (Auto) Eos % (Auto) Baso % (Auto) Lymph # (Auto) [place] # (Auto) Eos # (Auto) Baso # (Auto) Abs Immat Gran (auto) Absolute Neuts (auto) Absolute Nucleated RBC Nucleated RBC % (auto) Smear Tech's Comments APTT 71.1 H* 65.2 H* 63.9 H* VBG pH VBG pCO2 VBG pO2 VBG HCO3 VBG O2 Saturation VBG Base Excess Sodium Potassium Chloride Carbon Dioxide Anion Gap BUN Creatinine Estim Creat Clear Calc Estimated GFR Random Glucose Calcium Phosphorus Magnesium Total Bilirubin Direct Bilirubin AST ALT Alkaline Phosphatase Total Protein Albumin 01/11/22 01/11/22 01/11/22 02:46 05:10 05:10 WBC 19.2 H RBC 3.71 L D Hgb 10.8 L D Hct 34.2 L MCV 92.2 MCH 29.1 MCHC 31.6 RDW 13.9 Plt Count 132 L MPV 10.1 Immature Gran % (Auto) 0.9 H Neut % (Auto) 91.8 H Lymph % (Auto) 4.2 L [place] % (Auto) 3.0 Eos % (Auto) 0.0 Baso % (Auto) 0.1 Lymph # (Auto) 0.8 L [place] # (Auto) 0.6 Eos # (Auto) 0.0 Baso # (Auto) 0.0 Abs Immat Gran (auto) 0.18 H Absolute Neuts (auto) 17.6 H Absolute Nucleated RBC 0.000 Nucleated RBC % (auto) 0.0 Smear Tech's Comments VERIFIED APTT 71.3 H* VBG pH VBG pCO2 VBG pO2 VBG HCO3 VBG O2 Saturation VBG Base Excess Sodium 141 Potassium 4.2 Chloride 107 Carbon Dioxide 25 Anion Gap 13 BUN 26 H Creatinine 1.14 Estim Creat Clear Calc 49.7 Estimated GFR > 60 Random Glucose 155 H Calcium 8.2 L D Phosphorus 2.9 Magnesium 1.8 Total Bilirubin 0.4 Direct Bilirubin 0.2 AST 59 H ALT 294 H Alkaline Phosphatase 68 D Total Protein 5.0 L Albumin 2.8 L 01/11/22 01/11/22 01/11/22 05:10 05:28 08:08 WBC RBC Hgb Hct MCV MCH MCHC RDW Plt Count MPV Immature Gran % (Auto) Neut % (Auto) Lymph % (Auto) [place] % (Auto) Eos % (Auto) Baso % (Auto) Lymph # (Auto) [place] # (Auto) Eos # (Auto) Baso # (Auto) Abs Immat Gran (auto) Absolute Neuts (auto) Absolute Nucleated RBC Nucleated RBC % (auto) Smear Tech's Comments APTT 68.5 H* 73.4 H* VBG pH 7.43 VBG pCO2 36 VBG pO2 51 VBG HCO3 25 VBG O2 Saturation 79.0 VBG Base Excess 1.1 Sodium Potassium Chloride Carbon Dioxide Anion Gap BUN Creatinine Estim Creat Clear Calc Estimated GFR Random Glucose Calcium Phosphorus Magnesium Total Bilirubin Direct Bilirubin AST ALT Alkaline Phosphatase Total Protein Albumin 01/11/22 01/11/22 11:53 14:26 WBC RBC Hgb Hct MCV MCH MCHC RDW Plt Count MPV Immature Gran % (Auto) Neut % (Auto) Lymph % (Auto) [place] % (Auto) Eos % (Auto) Baso % (Auto) Lymph # (Auto) [place] # (Auto) Eos # (Auto) Baso # (Auto) Abs Immat Gran (auto) Absolute Neuts (auto) Absolute Nucleated RBC Nucleated RBC % (auto) Smear Tech's Comments APTT 67.5 H* 72.2 H* VBG pH VBG pCO2 VBG pO2 VBG HCO3 VBG O2 Saturation VBG Base Excess Sodium Potassium Chloride Carbon Dioxide Anion Gap BUN Creatinine Estim Creat Clear Calc Estimated GFR Random Glucose Calcium Phosphorus Magnesium Total Bilirubin Direct Bilirubin AST ALT Alkaline Phosphatase Total Protein Albumin Microbiology Microbiology Results: Microbiology 01/09/22 04:38 Blood - Venous Blood Culture - Preliminary No growth after 48 hours. 01/09/22 04:38 Blood - Venous Blood Culture - Final Coag negative Staphylococcus 12/22/21 11:41 Blood - Venous Blood Culture - Final No growth after 5 days. 12/22/21 11:41 Blood - Venous Blood Culture - Final No growth after 5 days. Progress Note: A&P Assessment and plan (1) 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: Status: Acute (2) Deep vein thrombosis: Status: Acute (3) ATN (acute tubular necrosis): Status: Acute (4) Acute pulmonary embolism with acute cor pulmonale: Status: Acute (5) Acute pulmonary embolism: Status: Acute (6) HTN (hypertension): Status: Acute (7) Sjogren's disease: Status: Acute (8) Rheumatoid arthritis: Status: Acute (9) COPD (chronic obstructive pulmonary disease): Status: Acute (10) CKD (chronic kidney disease) stage 3, GFR 30-59 ml/min: Status: Acute (11) Cardiac arrest: Status: Acute (12) Eschar of lower leg: Status: Acute (13) Muscle spasm: Status: Acute (14) Non-healing wound of left lower extremity: Status: Acute (15) Chronic ulcer of leg: Status: Acute (16) Cellulitis: Status: Acute (17) Guaiac positive stools: Status: Acute (18) Annual physical exam: Status: Acute (19) Hypercalcemia: Status: Acute (20) Leg pain, bilateral: Status: Acute (21) Chronic venous insufficiency: Status: Acute Plan At this point because of the morbidity of that left upper extremity I was going to place a catheter via the left axillary vein passage retrograde and at least into the brachial system and or basal excess them a something to her to be able to infuse alteplase but I think it might be preferable if the entry could be gained into either the brachial or basilic system from below and possibly I nterventional Radiology to do this and and push the catheter up into the thrombus and infuse for 24 hours the tPA while the thrombosis still fresh but otherwise we continue systemically the argatroban which is therapeutic consistently at 73 seconds and then switch her over to a oral anticoagulant and then eventually taper the steroid in it that he is on but 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
[2022-01-11 16:36] LABS: C Reactive Protein 4.26 mg/dL (< or = 0.50)
[2022-01-11 17:07] LABS: Erythrocyte Sedimentation Rate 11 MM/HR (0-15)
[2022-01-11 17:13] LABS: Partial Thromboplastin Time 69.5 SEC (24.1-38.0)
--- NOTE | 2022-01-11 17:31 | PC.NURSE ---
Sedation vacation per MD started at 0921. PT began to awaken, follow commands, track with eyes. RT called to change vent settings to pressure support. Successfully extubated at 1350 to 5L Oxymiser. PT alert but confused, PT redirectable. TLC dressing changed. Leg wound cleaned and changed dressing per order, progression pictures obtained and added to chart. Family updated by RN and
[2022-01-11 20:17] LABS: Partial Thromboplastin Time 67.1 SEC (24.1-38.0)
[2022-01-11 22:44] LABS: Partial Thromboplastin Time 69.3 SEC (24.1-38.0)
[2022-01-11] MEDS: ondansetron HCL 4 MG/2 ML VIAL IVPUSH (23:21)
[2022-01-12] VITALS (18 sets, daily range): BP systolic 121–158; BP diastolic 71–98; PULSE 74–87; RESP 10–19; TEMP 36.3–37.1; O2SAT 91–97; BMI 25.6
[2022-01-12 01:25] LABS: Partial Thromboplastin Time 73.1 SEC (24.1-38.0)
[2022-01-12 03:27] LABS: Partial Thromboplastin Time 81.2 SEC (24.1-38.0)
[2022-01-12] MEDS: HYDROmorphone HCl 0.5 MG/0.5 ML SYRINGE IVPUSH ×2 (04:36→20:54)
[2022-01-12 05:25] LABS: VBG Base Excess 2.7 mmol/L; VBG HCO3 27 mmol/L (22-26); VBG pCO2 44 mmHg; VBG pO2 48 mmHg
[2022-01-12 05:46] LABS: Venous Blood Gas Refer to POC result
[2022-01-12 05:52] LABS: Basophils Percent Auto 0.1 % (0-2); Hematocrit 32.1 % (42.0-52.0); Hemoglobin 10.1 g/dl (14.0-18.0); Imm Gran Abs Auto 0.16 X10*3/uL (0.00-0.03); Imm Gran Pct Auto 1.1 % (0.0-0.4); Lymphocytes Absolute Auto 0.7 X10*3/uL (1.2-4.9); Lymphocytes Percent Auto 4.9 % (20-40); MANUAL DIFF FLAG SCAN; Mean Corpuscular HGB Conc 31.5 g/dl (31.0-36.0); Mean Corpuscular Hemoglobin 29.2 pg (27.0-33.0); Mean Corpuscular Volume 92.8 fL (80.0-98.0); Monocytes Absolute Auto 0.3 X10*3/uL (0.1-1.2); Monocytes Percent Auto 2.3 % (2-11); Neutrophils Percent Auto 91.6 % (45-73); Platelet Count 111 X10*3/uL (160-400); Red Blood Count 3.46 X10*6/uL (4.60-5.80); Red Cell Distribution Width 13.6 % (11.0-16.0); SCAN SMEAR FLAG 1; White Blood Count 14.2 X10*3/uL (4.8-10.8)
[2022-01-12 06:06] LABS: Alanine Aminotransferase 202 U/L (0-40); Albumin Level 2.9 g/dL (3.5-5.0); Alkaline Phosphatase 65 U/L (39-117); Anion Gap 11 (12-20); Aspartate Amino Transferase 35 U/L (5-37); Bilirubin Direct 0.2 mg/dL (0.0-0.5); Bilirubin Total 0.4 mg/dL (0.0-1.0); Blood Urea Nitrogen 27 mg/dL (9-16); Calcium 8.1 mg/dL (8.4-10.2); Carbon Dioxide 26 mmol/L (22-29); Chloride 109 mmol/L (96-108); Creatinine Clr Calc Pharmacy 62.3; Estimated Glomerular Filt Rate > 60; Glucose Random 106 mg/dL (60-115); Magnesium 1.9 mg/dL (1.6-2.6); Phosphorus 2.9 mg/dL (2.7-4.5); Potassium 4.3 mmol/L (3.3-5.1); Sodium 142 mmol/L (135-145)
[2022-01-12 06:13] LABS: SLIDE REVIEW VERIFIED
[2022-01-12 06:18] LABS: Partial Thromboplastin Time 72.1 SEC (24.1-38.0)
[2022-01-12] MEDS: Albuterol/Iprat 2.5/0.5MG 3 ML AMPUL.NEB INHALE ×2 (08:18→19:25)
[2022-01-12] MEDS: 0.9 % Sodium Chloride Flush 3 ML SYRINGE IVFLUSH (08:19)
[2022-01-12] MEDS: Argatroban 250 MG in 0.9 % Sodium Chloride 250 ML 12.32 MG IV (08:20)
[2022-01-12] MEDS: predniSONE 20 MG TABLET 40 MG PO (08:23)
[2022-01-12] MEDS: Chlorhexidine Gluc Oral Rinse 15 ML MOUTHWASH BUCCAL ×2 (08:23→15:09)
[2022-01-12] MEDS: Docusate Sodium 100 MG CAPSULE PO (08:23)
[2022-01-12] MEDS: ondansetron HCL 4 MG/2 ML VIAL IVPUSH ×3 (08:34→20:54)
--- NOTE | 2022-01-12 09:51 | PM.CCPN ---
Subjective Subjective Date of Service: 01/12/22 Interval History: 76-year-old gentleman with underlying history of COPD, Sjogren's, RA, hypertension, nonhealing left lower extremity ulcer initially admitted on 12/22/2021 with poorly healing left lower extremity ulcer requiring extensive debridement by General surgery. Hospital course complicated by PEA/asystole cardiac arrest on 01/10/2022 from massive pulmonary embolism with underlying deep venous thrombosis, including left upper extremity. Extubated 01/11/2022. Critical Care Time (minutes): 0 Physical Exam Vital Signs: Vital Signs: Last Vital Signs Temp 97.3 F 01/12/22 07:00 Pulse 82 01/12/22 09:00 Resp 16 01/12/22 09:00 BP 140/89 H 01/12/22 09:00 Pulse Ox 94 01/12/22 09:00 O2 Del Method 01/12/22 09:00 O2 Flow Rate 5 01/12/22 09:00 FiO2 40 01/11/22 13:07 Oxygen Flow Rate 2 12/29/21 13:00 BMI result Body Mass Index 25.6 Const: General: no acute distress, alert and awake Eyes: Sclerae: sclerae normal EOM: EOMs intact bilaterally Neck: Neck: Yes no lymphadenopathy, Yes trachea midline and Yes supple Resp: Effort & Inspection: normal respiratory effort and no respiratory distress Auscultation: clear to auscultation bilaterally Cardio: Rate: regular rate Rhythm: regular rhythm Heart sounds: no gallops, no murmurs and no rubs GI: Palpation (GI): Soft to palpation and Other GI palpation findings present ( Nontender) Auscultation: normal bowel sounds Extrem: General: Yes no pedal edema, No clubbing, No cyanosis and Yes other (Left upper extremity swelling) Objective Data Labs CBC & Chem 7: 01/12/22 05:15 01/12/22 05:15 Labs: Laboratory Results - last 24 hr 01/11/22 01/11/22 01/11/22 11:53 14:26 16:01 WBC RBC Hgb Hct MCV MCH MCHC RDW Plt Count MPV Immature Gran % (Auto) Neut % (Auto) Lymph % (Auto) [place] % (Auto) Eos % (Auto) Baso % (Auto) Lymph # (Auto) [place] # (Auto) Eos # (Auto) Baso # (Auto) Abs Immat Gran (auto) Absolute Neuts (auto) Absolute Nucleated RBC Nucleated RBC % (auto) Smear Tech's Comments ESR 11 APTT 67.5 H* 72.2 H* VBG pH VBG pCO2 VBG pO2 VBG HCO3 VBG O2 Saturation VBG Base Excess Sodium Potassium Chloride Carbon Dioxide Anion Gap BUN Creatinine Estim Creat Clear Calc Estimated GFR Random Glucose Calcium Phosphorus Magnesium Total Bilirubin Direct Bilirubin AST ALT Alkaline Phosphatase C-Reactive Protein Total Protein Albumin 01/11/22 01/11/22 01/11/22 16:01 16:50 19:43 WBC RBC Hgb Hct MCV MCH MCHC RDW Plt Count MPV Immature Gran % (Auto) Neut % (Auto) Lymph % (Auto) [place] % (Auto) Eos % (Auto) Baso % (Auto) Lymph # (Auto) [place] # (Auto) Eos # (Auto) Baso # (Auto) Abs Immat Gran (auto) Absolute Neuts (auto) Absolute Nucleated RBC Nucleated RBC % (auto) Smear Tech's Comments ESR APTT 69.5 H* 67.1 H* VBG pH VBG pCO2 VBG pO2 VBG HCO3 VBG O2 Saturation VBG Base Excess Sodium Potassium Chloride Carbon Dioxide Anion Gap BUN Creatinine Estim Creat Clear Calc Estimated GFR Random Glucose Calcium Phosphorus Magnesium Total Bilirubin Direct Bilirubin AST ALT Alkaline Phosphatase C-Reactive Protein 4.26 H Total Protein Albumin 01/11/22 01/12/22 01/12/22 22:22 00:56 03:01 WBC RBC Hgb Hct MCV MCH MCHC RDW Plt Count MPV Immature Gran % (Auto) Neut % (Auto) Lymph % (Auto) [place] % (Auto) Eos % (Auto) Baso % (Auto) Lymph # (Auto) [place] # (Auto) Eos # (Auto) Baso # (Auto) Abs Immat Gran (auto) Absolute Neuts (auto) Absolute Nucleated RBC Nucleated RBC % (auto) Smear Tech's Comments ESR APTT 69.3 H* 73.1 H* 81.2 H* VBG pH VBG pCO2 VBG pO2 VBG HCO3 VBG O2 Saturation VBG Base Excess Sodium Potassium Chloride Carbon Dioxide Anion Gap BUN Creatinine Estim Creat Clear Calc Estimated GFR Random Glucose Calcium Phosphorus Magnesium Total Bilirubin Direct Bilirubin AST ALT Alkaline Phosphatase C-Reactive Protein Total Protein Albumin 01/12/22 01/12/22 01/12/22 05:15 05:15 05:15 WBC 14.2 H RBC 3.46 L Hgb 10.1 L Hct 32.1 L MCV 92.8 MCH 29.2 MCHC 31.5 RDW 13.6 Plt Count 111 L MPV 10.0 Immature Gran % (Auto) 1.1 H Neut % (Auto) 91.6 H Lymph % (Auto) 4.9 L [place] % (Auto) 2.3 Eos % (Auto) 0.0 Baso % (Auto) 0.1 Lymph # (Auto) 0.7 L [place] # (Auto) 0.3 Eos # (Auto) 0.0 Baso # (Auto) 0.0 Abs Immat Gran (auto) 0.16 H Absolute Neuts (auto) 13.0 H Absolute Nucleated RBC 0.000 Nucleated RBC % (auto) 0.0 Smear Tech's Comments VERIFIED ESR APTT 72.1 H* VBG pH VBG pCO2 VBG pO2 VBG HCO3 VBG O2 Saturation VBG Base Excess Sodium 142 Potassium 4.3 Chloride 109 H Carbon Dioxide 26 Anion Gap 11 L BUN 27 H Creatinine 0.91 Estim Creat Clear Calc 62.3 Estimated GFR > 60 Random Glucose 106 Calcium 8.1 L Phosphorus 2.9 Magnesium 1.9 Total Bilirubin 0.4 Direct Bilirubin 0.2 AST 35 D ALT 202 H Alkaline Phosphatase 65 C-Reactive Protein Total Protein 5.0 L Albumin 2.9 L 01/12/22 01/12/22 05:21 08:19 WBC RBC Hgb Hct MCV MCH MCHC RDW Plt Count MPV Immature Gran % (Auto) Neut % (Auto) Lymph % (Auto) [place] % (Auto) Eos % (Auto) Baso % (Auto) Lymph # (Auto) [place] # (Auto) Eos # (Auto) Baso # (Auto) Abs Immat Gran (auto) Absolute Neuts (auto) Absolute Nucleated RBC Nucleated RBC % (auto) Smear Tech's Comments ESR APTT 78.0 H* VBG pH 7.40 VBG pCO2 44 VBG pO2 48 VBG HCO3 27 H VBG O2 Saturation 76.0 VBG Base Excess 2.7 Sodium Potassium Chloride Carbon Dioxide Anion Gap BUN Creatinine Estim Creat Clear Calc Estimated GFR Random Glucose Calcium Phosphorus Magnesium Total Bilirubin Direct Bilirubin AST ALT Alkaline Phosphatase C-Reactive Protein Total Protein Albumin Microbiology Microbiology Results: Microbiology 01/09/22 04:38 Blood - Venous Blood Culture - Preliminary No growth after 48 hours. 01/09/22 04:38 Blood - Venous Blood Culture - Final Coag negative Staphylococcus 12/22/21 11:41 Blood - Venous Blood Culture - Final No growth after 5 days. 12/22/21 11:41 Blood - Venous Blood Culture - Final No growth after 5 days. Progress Note: A&P Assessment and plan (1) Deep vein thrombosis: Status: Acute (2) Acute pulmonary embolism with acute cor pulmonale: Status: Acute (3) Sjogren's disease: Status: Acute (4) Rheumatoid arthritis: Status: Acute (5) COPD (chronic obstructive pulmonary disease): Status: Acute (6) CKD (chronic kidney disease) stage 3, GFR 30-59 ml/min: Status: Acute (7) Cardiac arrest: Status: Acute (8) Non-healing wound of left lower extremity: Status: Acute Plan Assessment: 76-year-old gentleman with underlying CO growing and rheumatoid arthritis initially admitted with nonhealing left lower extremity ulcer with hospital course complicated by cardiac arrest secondary to massive pulmonary embolism, left upper extremity DVT, and possible GLENROY Plan: Neuro: No acute issues. Cardiac: Cardiac arrest secondary to acute pulmonary embolism, now on anticoagulation. Pulmonary: Intubated during CPR, extubated 01/11/2022. Renal: No acute issues. Endo: No acute issues. GI: No acute issues. ID: No acute issues Heme/Onc: Left upper extremity large DVT, possible GLENROY, continues on argatroban drip, vascular surgery consulted. Psych: No acute issues. Miscellaneous: Left upper extremity ulcer, status post surgical debridement. General surgery service care appreciated, likely related to underlying inflammatory diseases. Prophylaxis: Argatroban Diet: Regular Quality Stroke Does the patient have a stroke diagnosis?: No VTE Prior VTE?: No VTE Risk Level:: Medical - moderate - high VTE Device Contraindication: Treatment Not Indicated VTE Drug Contraindication: N/A - Med Ordered
[2022-01-12 14:13] LABS: Partial Thromboplastin Time 78.5 SEC (24.1-38.0)
--- NOTE | 2022-01-12 16:00 | PM.EVENT ---
Event Note Date of Service: 01/12/22 Event Note: Discussed case with . Transfer to medical floor
[2022-01-12 16:33] LABS: Partial Thromboplastin Time 72.7 SEC (24.1-38.0)
[2022-01-12] MEDS: fentaNYL citrate/PF 100 MCG/2 ML VIAL 50 MCG IVPUSH (18:03)
--- NOTE | 2022-01-12 18:35 | PC.NURSE ---
PT VSS, A&O x4 Pulses - Pedal pulses assessed with doppler, Radial pulse palpable Improvement in color and warmth of upper left arm to forearm, wrist to finger tips remain cold but able to tolerate movement of L arm better as day progressed, L hand swelling decreased w/ increased movement of fingers Pain in Left arm/hand treated with fentanyl per EMAR Patients necklace w/ medallion found and on patient
[2022-01-12 18:45] LABS: Partial Thromboplastin Time 73.4 SEC (24.1-38.0)
[2022-01-12 22:09] LABS: Partial Thromboplastin Time 73.9 SEC (24.1-38.0)
[2022-01-13] VITALS (9 sets, daily range): BP systolic 139–159; BP diastolic 85–99; PULSE 71–88; RESP 9–18; TEMP 36.6–37.5; O2SAT 93–97; BMI 27.3
[2022-01-13 00:42] LABS: Partial Thromboplastin Time 77.4 SEC (24.1-38.0)
[2022-01-13] MEDS: 0.9 % Sodium Chloride Flush 3 ML SYRINGE IVFLUSH ×3 (00:49→16:25)
[2022-01-13] MEDS: HYDROmorphone HCl 0.5 MG/0.5 ML SYRINGE IVPUSH ×2 (03:51→10:44)
[2022-01-13] MEDS: Argatroban 250 MG in 0.9 % Sodium Chloride 250 ML 12.32 MG IV (03:52)
[2022-01-13] MEDS: ondansetron HCL 4 MG/2 ML VIAL IVPUSH ×3 (03:56→12:03)
[2022-01-13 05:24] LABS: Hematocrit 32.5 % (42.0-52.0); Hemoglobin 10.6 g/dl (14.0-18.0); Mean Corpuscular HGB Conc 32.6 g/dl (31.0-36.0); Mean Corpuscular Volume 92.1 fL (80.0-98.0); Mean Platelet Volume 9.7 fL (9.4-12.4); Platelet Count 147 X10*3/uL (160-400); Red Blood Count 3.53 X10*6/uL (4.60-5.80); Red Cell Distribution Width 13.2 % (11.0-16.0)
[2022-01-13 05:33] LABS: Partial Thromboplastin Time 91.6 SEC (24.1-38.0)
[2022-01-13 05:59] LABS: Anion Gap 8 (12-20); Blood Urea Nitrogen 26 mg/dL (9-16); Calcium 8.4 mg/dL (8.4-10.2); Carbon Dioxide 28 mmol/L (22-29); Chloride 109 mmol/L (96-108); Estimated Glomerular Filt Rate > 60; Glucose Random 89 mg/dL (60-115); Sodium 141 mmol/L (135-145)
[2022-01-13 08:55] LABS: Partial Thromboplastin Time 62.9 SEC (24.1-38.0)
[2022-01-13] MEDS: predniSONE 20 MG TABLET 40 MG PO (08:58)
--- NOTE | 2022-01-13 09:04 | P.CONGS_ITS ---
History of Present Illness Consult details Consult date: 01/13/22 Reason for consult: other (DVT) Narrative: Very pleasant 76-year-old gentleman who has had a prolonged hospital stay hit was most recently discovered to have a left upper extremity DVT. He was origi carole brought in with a history surgery in syndrome and nonhealing left lower extremity ulcer. It has been progressively getting worse over time. During his hospitalization he ended up in the ICU and has had left upper extremity swelling. It was discovered he had a DVT. In addition there was concern of hit as the platelet count went down to 67. Patient is now on argatroban. Review of Systems Review of Systems: Yes all other systems are reviewed and are negative Constitutional: Constitutional: Reports fatigue and Reports poor appetite ENT: Reports Normal hearing present Cardiovascular: Cardiovascular: Denies chest pain, Denies chest pain at rest, Denies chest pain with activity and Denies pedal edema Respiratory: Respiratory: Denies cough Gastrointestinal: Gastrointestinal: Denies abdominal pain Musculoskeletal: Musculoskeletal: Denies abnormal gait, Denies muscle cramps and Denies radiating pain into limb Integumentary/Breasts: Skin/Breast: Denies skin ulcer and Denies wounds Neurologic: Reports Normal hearing present and Denies abnormal gait Psychiatric: Psychiatric: Reports no additional psychiatric complaints Endocrine: Endocrine: Reports fatigue PMFSH Past Medical History Medical History Chronic ulcer of leg Chronic venous insufficiency CKD (chronic kidney disease) stage 3, GFR 30-59 ml/min COPD (chronic obstructive pulmonary disease) Elevated serum creatinine HTN (hypertension) Leg pain, bilateral Rheumatoid arthritis Sjogren's disease Vasculitis Functional capacity: independent ambulation Family History Family History Other No family history of coronary artery disease Family history: reviewed and not pertinent Surgical History Surgical History History of hernia repair History of left knee replacement Social History Social History Household Members: Spouse Housing: House Do you presently have visiting nurse or other home services: No Alcohol intake: current Alcohol intake frequency: holidays/special occasions only Patient Tobacco Use Status: Former Tobacco user Tobacco use type: Cigarette Years Smoked: quit 2018 e-Cigarette/Vaping Use: Never Used Advance Directives Date on File: 12/23/21 service: No Current occupational status: retired Cognitive needs: Yes (cane) Hearing needs: No Vision needs: Yes (Pt wear glasses. ) Meds Allergies Allergy/AdvReac Type Severity Reaction Status Date / Time No Known Allergies Allergy Verified 12/22/21 11:15 [No Known Allergies*] Active Medications: Current Medications Albuterol/Ipratropium (Albuterol/Iprat 2.5/0.5mg 3 Ml Ampul.Neb) 3 ml INHALE RQ4H WHILE AWAKE [facility] Last Admin: 01/13/22 07:51 Dose: Not Given Chlorhexidine Gluconate (Chlorhexidine Gluc Oral Rinse 15 Ml Mouthwash) 15 ml BUCCAL TID [facility] Last Admin: 01/13/22 08:57 Dose: Not Given Docusate Sodium (Docusate Sodium 100 Mg Capsule) 100 mg PO DAILY [facility] Last Admin: 01/13/22 08:58 Dose: 100 mg Fluticasone/Vilanterol (Fluticasone/Vilanterol 100/25 Blst.W.Dev) 1 puff INHALE DAILY PRN PRN Reason: Shortness Of Breath Hydromorphone HCl (Hydromorphone Hcl 0.5 Mg/0.5 Ml Syringe) 0.5 mg IVPUSH Q4H PRN; Protocol PRN Reason: Breakthrough Pain Last Admin: 01/13/22 03:51 Dose: 0.5 mg Argatroban 250 mg/ Sodium (Chloride) 252.5 mls @ 12.315 mls/hr IV .[id number] [facility]; Protocol Last Infusion: 01/13/22 06:26 Dose: 1.4 mcg/kg/min, 6.16 mls/hr Naloxone HCl (Naloxone Hcl 0.4 Mg/Ml Vial) 0.2 mg IVPUSH Q2M PRN PRN Reason: Excessive sedation or RR < 8 Ondansetron HCl (Ondansetron Hcl 4 Mg/2 Ml Vial) 4 mg IVPUSH Q4H PRN PRN Reason: nausea Last Admin: 01/13/22 08:02 Dose: 4 mg Pharmacy Consult (Consult Rx Perform Med Rec) 1 each MISCELLANE ONCE PRN PRN Reason: Consult order Prednisone (Prednisone 20 Mg Tablet) 40 mg PO DAILY [facility] Last Admin: 01/13/22 08:58 Dose: 40 mg Sodium Chloride (0.9 % Sodium Chloride Flush 3 Ml Syringe) 3 ml IVFLUSH QSHIFT [facility] Last Admin: 01/13/22 08:43 Dose: 3 ml Home Medications Medication Instructions Recorded Confirmed Last Taken Type umeclidinium 62.5 mcg-vilanterol 1 inh inhalation DAILY PRN 10/15/21 12/22/21 Unknown History 25 mcg/actuation powdr for Shortness Of Breath inhalation (Anoro Ellipta) acetaminophen 500 mg tablet 1,000 mg PO Q6H PRN Pain (Scale 10/30/21 12/22/21 12/22/21 History (Tylenol Extra Strength) Score 1-3) albuterol sulfate 90 mcg/actuation 2 puff inhalation Q6H PRN 11/28/21 12/22/21 U nknown History aerosol inhaler (ProAir HFA) Shortness Of Breath tocilizumab 80 mg/4 mL (20 mg/mL) 0 mg IV Q30D 11/28/21 12/22/21 12/02/21 History intravenous solution (Actemra) duloxetine 20 mg capsule,delayed 20 mg PO BEDTIME 12/19/21 12/22/21 12/21/21 History release prednisone 10 mg tablet See Taper PO DAILY 12/19/21 12/22/21 12/21/21 History Physical Exam Vital Signs: Vital Signs: Last Vital Signs Temp 98.9 F 01/13/22 08:00 Pulse 71 01/13/22 08:00 Resp 9 L 01/13/22 08:00 BP 159/95 H 01/13/22 08:00 Pulse Ox 95 01/13/22 08:00 O2 Del Method 01/13/22 08:00 O2 Flow Rate 5 01/13/22 08:00 FiO2 40 01/11/22 13:07 Oxygen Flow Rate 2 12/29/21 13:00 BMI result Body Mass Index 27.3 Const: General: cooperative, ill appearing and lethargic Orientation/consciousness: oriented to person, oriented to place, oriented to time and lethargic HEENT: Head: Yes normal to inspection Neck: Neck: Yes normal visual inspection Carotids: no bruits Chest: Chest palpation & inspection: normal inspection of the chest Resp: Effort & Inspection: normal respiratory effort and able to speak in complete sentences Auscultation: clear to auscultation bilaterally, no crackles, no rales, no rhonchi and no wheezes Cardio: Other: Left upper extremity +2 edema Rate: regular rate Rhythm: regular rhythm Heart sounds: S1 normal heart sound present and S2 normal heart sound present Bruits: no carotid bruits Peripheral pulses: dorsalis pedis present (Bilateral DP) GI: Inspection: Yes normal to inspection Skin: Wounds: no wounds Hair: normal Neuro: General: oriented to person, oriented to place and oriented to time Cranial nerves: Yes CN's II-XII intact bilaterally and Yes Normal hearing present Cognition (Neuro): normal cognition Motor exam (neuro): 5/5 motor strength present throughout Extrem: Other: venous exam: No significant superficial varicosities or spider telangiectasias, minimal edema General: No clubbing, No cyanosis and No edema Psych: Appearance: grossly normal Mental Status: mental status grossly normal Speech and movement: Normal speech and movement present Results Labs Result diagrams: 01/13/22 05:15 01/13/22 05:15 Labs: Abnormal lab results 01/12/22 01/12/22 01/12/22 Range/Units 10:48 13:49 16:08 WBC (4.8-10.8) X10*3/uL RBC (4.60-5.80) X10*6/uL Hgb (14.0-18.0) g/dl Hct (42.0-52.0) % Plt Count (160-400) X10*3/uL APTT 66.0 H* 78.5 H* 72.7 H* (24.1-38.0) SEC Chloride (96-108) mmol/L Anion Gap (12-20) BUN (9-16) mg/dL 01/12/22 01/12/22 01/13/22 Range/Units 18:28 20:53 00:18 WBC (4.8-10.8) X10*3/uL RBC (4.60-5.80) X10*6/uL Hgb (14.0-18.0) g/dl Hct (42.0-52.0) % Plt Count (160-400) X10*3/uL APTT 73.4 H* 73.9 H* 77.4 H* (24.1-38.0) SEC Chloride (96-108) mmol/L Anion Gap (12-20) BUN (9-16) mg/dL 01/13/22 01/13/22 01/13/22 Range/Units 02:32 05:15 05:15 WBC 13.0 H (4.8-10.8) X10*3/uL RBC 3.53 L (4.60-5.80) X10*6/uL Hgb 10.6 L (14.0-18.0) g/dl Hct 32.5 L (42.0-52.0) % Plt Count 147 L D (160-400) X10*3/uL APTT 80.0 H* (24.1-38.0) SEC Chloride 109 H (96-108) mmol/L Anion Gap 8 L (12-20) BUN 26 H (9-16) mg/dL 01/13/22 01/13/22 Range/Units 05:15 08:36 WBC (4.8-10.8) X10*3/uL RBC (4.60-5.80) X10*6/uL Hgb (14.0-18.0) g/dl Hct (42.0-52.0) % Plt Count (160-400) X10*3/uL APTT 91.6 H* 62.9 H* D (24.1-38.0) SEC Chloride (96-108) mmol/L Anion Gap (12-20) BUN (9-16) mg/dL Short CBC 01/13/22 Range/Units 05:15 WBC 13.0 H (4.8-10.8) X10*3/uL Hgb 10.6 L (14.0-18.0) g/dl Hct 32.5 L (42.0-52.0) % Plt Count 147 L D (160-400) X10*3/uL BMP 01/13/22 05:15 Sodium 141 Potassium 4.0 Chloride 109 H Carbon Dioxide 28 BUN 26 H Creatinine 0.81 Calcium 8.4 Urine 12/24/21 Range/Units 13:20 Urine Color YELLOW Urine Appearance CLEAR Urine pH 6.0 (5.0-8.0) Ur Specific [place] 1.025 (1.005-1.025) Urine Protein NEG (NEG-TRACE) MG/DL Urine Glucose (UA) NEG (NEG) MG/DL All other labs normal. Assessment and Plan (1) 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: Status: Acute Plan I did review imaging and the patient does have left upper extremity DVT. At the current time I would not recommend intervention, unclear duration of the clot. 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 Would recommend continued elevation. Argatroban may be transition to Coumadin as required. We will follow on an as-needed basis. Thank you for allowing us to assist in this patient's care. Procedures Date of Service Date of Service: 01/13/22
--- NOTE | 2022-01-13 10:30 | P.PNIM_ITS ---
Subjective Subjective Date of Service: 01/13/22 Review of Systems Follow up cardiac arrest ICU transfer Still with pain to legs pain to left hand Physical Exam Vital Signs: Vital Signs: Last Vital Signs Temp 98.9 F 01/13/22 08:00 Pulse 71 01/13/22 08:00 Resp 9 L 01/13/22 08:00 BP 159/95 H 01/13/22 08:00 Pulse Ox 95 01/13/22 08:00 O2 Del Method 01/13/22 08:00 O2 Flow Rate 5 01/13/22 08:00 FiO2 40 01/11/22 13:07 Oxygen Flow Rate 2 12/29/21 13:00 BMI result Body Mass Index 27.3 Appearing in no acute distress lung sounds are clear to auscultation heart regular rate rhythm, clear S1, S2 positive bowel sounds, abdomen is soft, nontender neuro patient is alert x3, no focal deficits Objective Data Active Medications Albuterol/Ipratropium (Albuterol/Iprat 2.5/0.5mg 3 Ml Ampul.Neb) 3 ml INHALE RQ4H WHILE AWAKE [facility] Last Admin: 01/13/22 07:51 Dose: Not Given Documented By: SHIRLEY Non-Admin Reason: Patient Refused Chlorhexidine Gluconate (Chlorhexidine Gluc Oral Rinse 15 Ml Mouthwash) 15 ml BUCCAL TID [facility] Last Admin: 01/13/22 08:57 Dose: Not Given Documented By: RAF Non-Admin Reason: Patient no longer taking Docusate Sodium (Docusate Sodium 100 Mg Capsule) 100 mg PO DAILY [facility] Last Admin: 01/13/22 09:05 Dose: Not Given Documented By: RAF Non-Admin Reason: Patient Refused Fluticasone/Vilanterol (Fluticasone/Vilanterol 100/25 Blst.W.Dev) 1 puff INHALE DAILY PRN PRN Reason: Shortness Of Breath Hydromorphone HCl (Hydromorphone Hcl 0.5 Mg/0.5 Ml Syringe) 0.5 mg IVPUSH Q4H PRN; Protocol PRN Reason: Breakthrough Pain Last Admin: 01/13/22 03:51 Dose: 0.5 mg Documented By: ALAINA Argatroban 250 mg/ Sodium (Chloride) 252.5 mls @ 12.315 mls/hr IV .[id number] [facility]; Protocol Last Infusion: 01/13/22 06:26 Dose: 1.4 mcg/kg/min, 6.16 mls/hr Documented By: ALAINA Naloxone HCl (Naloxone Hcl 0.4 Mg/Ml Vial) 0.2 mg IVPUSH Q2M PRN PRN Reason: Excessive sedation or RR < 8 Ondansetron HCl (Ondansetron Hcl 4 Mg/2 Ml Vial) 4 mg IVPUSH Q4H PRN PRN Reason: nausea Last Admin: 01/13/22 08:02 Dose: 4 mg Documented By: CLARA Pharmacy Consult (Consult Rx Perform Med Rec) 1 each MISCELLANE ONCE PRN PRN Reason: Consult order Prednisone (Prednisone 20 Mg Tablet) 40 mg PO DAILY [facility] Last Admin: 01/13/22 08:58 Dose: 40 mg Documented By: RAF Sodium Chloride (0.9 % Sodium Chloride Flush 3 Ml Syringe) 3 ml IVFLUSH QSHIFT [facility] Last Admin: 01/13/22 08:43 Dose: 3 ml Documented By: RAF Labs CBC & Chem 7: 01/13/22 05:15 01/13/22 05:15 Labs: Laboratory Results - last 24 hr 01/12/22 01/12/22 01/12/22 10:48 13:49 16:08 MCV MCH MCHC RDW Plt Count MPV Absolute Nucleated RBC Nucleated RBC % (auto) APTT 66.0 H* 78.5 H* 72.7 H* Anion Gap Estim Creat Clear Calc Estimated GFR Random Glucose Calcium 01/12/22 01/12/22 01/13/22 18:28 20:53 00:18 MCV MCH MCHC RDW Plt Count MPV Absolute Nucleated RBC Nucleated RBC % (auto) APTT 73.4 H* 73.9 H* 77.4 H* Anion Gap Estim Creat Clear Calc Estimated GFR Random Glucose Calcium 01/13/22 01/13/22 01/13/22 02:32 05:15 05:15 MCV 92.1 MCH 30.0 MCHC 32.6 RDW 13.2 Plt Count 147 L D MPV 9.7 Absolute Nucleated RBC 0.000 Nucleated RBC % (auto) 0.0 APTT 80.0 H* Anion Gap 8 L Estim Creat Clear Calc 70.0 Estimated GFR > 60 Random Glucose 89 Calcium 8.4 01/13/22 01/13/22 05:15 08:36 MCV MCH MCHC RDW Plt Count MPV Absolute Nucleated RBC Nucleated RBC % (auto) APTT 91.6 H* 62.9 H* D Anion Gap Estim Creat Clear Calc Estimated GFR Random Glucose Calcium 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 presents to the hospital of complaints of worsening pain on his left lower leg Cardiac arrest 01/10/22 requiring intubation PEA/asystole, coded for 15 minutes with return of Rosc Secondary to massive bilateral pulmonary emboli with evidence of elevated right heart pressures and positive DVT in the left brachial vein, positive superficial thrombus in the left basilic and cephalic veins Had been maintained on subcutaneous heparin for DVT prophylaxis Physical therapy consultation Question of HIT Severe drop in platelet count on day of event (69) HIT workup pending for now continue on Argatroban Left arm swelling secondary to DVT Seen by vascular surgery rec no intervention at this time continue elevation monitor Nonhealing wound of left lower extremity Hx of Sjogren's likely contributing to pain management also Biopsy of the area showing soft tissue gangrenous necrosis, no osteomyelitis on CT s/p surgical debridement 01/02/22 Initially on IV antibiotics- vanco, zosyn switched to doxy/augmentin, completed course local wound care as per general surgery pain control an issue especially with dressing changes, had been slowly improving prior to Cardiac arrest Wound care every other day, premedicate Cellulitis. Resolved blood cultures negative ID following rheumatoid arthritis continue home medication as well as prednisone COPD, not in exacerbation continue home inhalers DEACON GFR >60. baseline his cr was 1.2 earlier this year DVT prophylaxis Argatroban IV Attending Dr. Adams Full code DISPO. to STR when medically stable Patient requires continued hospitalization for left leg ulcer s/p debridement IV pain control. S/p cardiac arrest, ICU transfer will require extensive PT prior to tx to rehab facility Quality Stroke Does the patient have a stroke diagnosis?: No VTE Prior VTE?: No VTE Risk Level:: Medical - moderate - high VTE Device Contraindication: Treatment Not Indicated VTE Drug Contraindication: N/A - Med Ordered
[2022-01-13 11:07] LABS: Partial Thromboplastin Time 58.2 SEC (24.1-38.0)
[2022-01-13 13:13] LABS: Partial Thromboplastin Time 55.2 SEC (24.1-38.0)
--- NOTE | 2022-01-13 13:56 | PC.NURSE ---
Patient c/o continuos left lower extremity and left upper extremity throbbing pain, rated an 8/10. Patient medicated with PRN dilaudid with no effectiveness per patient. Posterior surface of the Left hand covered in multiple fluid filled blisters, skin cool with dark discoloration. Left radial pulse obtained with dopplar ultrasound. Dressing changed per patient request with xeroform and gauze wrap. Picture obtained and sent to [facility]. No new orders at this time. Patient reporting continuous nausea throughout shift, medicated with Q4 PRN zofran at 0800, ineffective per patient. Patient given zofran again at 1200. Patient reported worsening of nausea immediately after administration of zofran. [facility] notified. No new orders at this time. Meds to be reviewed per [facility]. VSS.
[2022-01-13 14:55] LABS: Partial Thromboplastin Time 57.3 SEC (24.1-38.0)
--- NOTE | 2022-01-13 16:33 | P.CNHO_ITS ---
Subjective - Subjective Chief complaint: left hand pain Patient: new to practice Consult date: 01/13/22 Requesting Physician: Aurora Puentes NP Primary Care Provider: Kia Stroud MD HPI - Consult Narrative Reason for consult: DVT and pulmonary emboli Narrative: Sarath Rodriguez is a 76 year old male with a complicated medical history who has been diagnosed with left upper extremity DVT and pulmonary emboli while hospitalized for nonhealing ulcer of left foot. Patient states that problem with blisters and ulcer of his left foot started about 5 months ago and he has been receiving treatment at the wound clinic for this. He has a history of chronic kidney disease, rheumatoid arthritis and Sjogren's disease. He presented to the ED in December with increased pain in his left foot, CT findings showed soft tissue ulcers along the midfoot and overlying distal fibula. He was admitted for IV antibiotics. During the course of hospitalization, he was evaluated by Nephrology for acute kidney injury which was felt to be related to volume depletion. He has been evaluated by ID as well, biopsy of skin lesion showed gangrenous necrosis. On 01/09/2022 patient was found unresponsive and following a code he was intubated and admitted to the ICU. He was then diagnosed with possible heparin-induced thrombosis as his platelet counts had dropped and he was noted to have left upper extremity DVT and multiple pulmonary emboli. He has been on argatroban and his platelet counts have improved. There is no personal history of previous thromboembolism or family history of the same. Review of Systems - Constitutional Reports as per HPI - Neurologic Reports hearing normal, Denies abnormal gait, Denies focal weakness, Denies con vulsions [facility] Medical History: Medical History (Last Reviewed 01/09/22 @ 06:39 by Anamaria Rm PA-C) Chronic ulcer of leg Chronic venous insufficiency CKD (chronic kidney disease) stage 3, GFR 30-59 ml/min COPD (chronic obstructive pulmonary disease) Elevated serum creatinine HTN (hypertension) Leg pain, bilateral Rheumatoid arthritis Sjogren's disease Vasculitis Functional capacity: independent ambulation Family History: Family History (Last Reviewed 01/09/22 @ 06:39 by Anamaria Rm PA-C) Other No family history of coronary artery disease Family history: reviewed and not pertinent Surgical History: Surgical History (Last Reviewed 01/09/22 @ 06:39 by Anamaria Rm PA-C) History of hernia repair History of left knee replacement Social History: Social History (Last Reviewed 01/09/22 @ 06:39 by Anamaria Rm PA-C) Living Situation History: Household Members: Spouse Housing: House Do you presently have visiting nurse or other home services: No Tobacco History: Patient Tobacco Use Status: Former Tobacco user Tobacco use type: Cigarette Years Smoked: quit 2019 e-Cigarette/Vaping Use: Never Used Advance Directives: Advance Directives Date on File: 12/23/21 Occupation Assessmet: service: No Current occupational status: retired Home Medications and Allergies Current Medications: Current Medications Albuterol/Ipratropium (Albuterol/Iprat 2.5/0.5mg 3 Ml Ampul.Neb) 3 ml INHALE RQ4H WHILE AWAKE [facility] Last Admin: 01/13/22 14:54 Dose: Not Given Docusate Sodium (Docusate Sodium 100 Mg Capsule) 100 mg PO DAILY [facility] Last Admin: 01/13/22 09:05 Dose: Not Given Fluticasone/Vilanterol (Fluticasone/Vilanterol 100/25 Blst.W.Dev) 1 puff INHALE DAILY PRN PRN Reason: Shortness Of Breath Hydromorphone HCl (Hydromorphone Hcl 0.5 Mg/0.5 Ml Syringe) 0.5 mg IVPUSH Q4H PRN; Protocol PRN Reason: Breakthrough Pain Last Admin: 01/13/22 10:44 Dose: 0.5 mg Argatroban 250 mg/ Sodium (Chloride) 252.5 mls @ 12.315 mls/hr IV .[id number] [facility]; Protocol Last Infusion: 01/13/22 06:26 Dose: 1.4 mcg/kg/min, 6.16 mls/hr Promethazine HCl 6.25 mg/ (Sodium Chloride) 50.25 mls @ 201 mls/hr IV Q6H PRN PRN Reason: Nausea Naloxone HCl (Naloxone Hcl 0.4 Mg/Ml Vial) 0.2 mg IVPUSH Q2M PRN PRN Reason: Excessive sedation or RR < 8 Ondansetron HCl (Ondansetron Hcl 4 Mg/2 Ml Vial) 4 mg IVPUSH Q4H PRN PRN Reason: nausea Last Admin: 01/13/22 12:03 Dose: 4 mg Pharmacy Consult (Consult Rx Perform Med Rec) 1 each MISCELLANE ONCE PRN PRN Reason: Consult order Prednisone (Prednisone 20 Mg Tablet) 40 mg PO DAILY [facility] Last Admin: 01/13/22 08:58 Dose: 40 mg Sodium Chloride (0.9 % Sodium Chloride Flush 3 Ml Syringe) 3 ml IVFLUSH QSHIFT [facility] Last Admin: 01/13/22 16:25 Dose: 3 ml Home Medications Medication Instructions Recorded Confirmed Type umeclidinium 62.5 mcg-vilanterol 1 inh inhalation DAILY PRN 10/15/21 12/22/21 H istory 25 mcg/actuation powdr for Shortness Of Breath inhalation (Anoro Ellipta) acetaminophen 500 mg tablet 1,000 mg PO Q6H PRN Pain (Scale 10/30/21 12/22/21 History (Tylenol Extra Strength) Score 1-3) albuterol sulfate 90 mcg/actuation 2 puff inhalation Q6H PRN 11/28/21 12/22/21 H istory aerosol inhaler (ProAir HFA) Shortness Of Breath tocilizumab 80 mg/4 mL (20 mg/mL) 0 mg IV Q30D 11/28/21 12/22/21 History intravenous solution (Actemra) duloxetine 20 mg capsule,delayed 20 mg PO BEDTIME 12/19/21 12/22/21 History release prednisone 10 mg tablet See Taper PO DAILY 12/19/21 12/22/21 History Allergies Allergy/AdvReac Type Severity Reaction Status Date / Time No Known Allergies Allergy Verified 12/22/21 11:15 [No Known Allergies*] Physical Exam Vital signs: Vital Signs Temp 97.9 F 01/13/22 12:00 Pulse 73 01/13/22 12:00 Resp 11 L 01/13/22 12:00 BP 159/95 H 01/13/22 08:00 Pulse Ox 93 01/13/22 12:00 O2 Del Method 01/13/22 12:00 O2 Flow Rate 5 01/13/22 12:00 FiO2 40 01/11/22 13:07 Intake & Output 01/12/22 01/13/22 01/13/22 18:59 06:59 18:59 Intake Total 498.884 / 760.479 261.595 / 760.479 120 / 120 Output Total 865 / 1740 875 / 1740 360 / 360 Balance -366.116 / -979.521 -613.405 / -979.521 -240 / -240 Urine Output (Average ml/kg/hr) 1.00 0.95 0.39 Intake: Intake, Oral Amount 390 / 390 120 / 120 Intake, IV Amount 108.884 / 370.479 261.595 / 370.479 Argatroban 250 mg In 0.9 % 108.884 / 370.479 261.595 / 370.479 Sodium Chloride 250 ml @ 2.8 MCG/KG/MIN 12.315 mls/hr IV . [id number] [facility] Rx#:[id number] Output: Output, Urine Amount (Catheter) 865 / 1740 875 / 1740 360 / 360 Urethral 865 / 1740 875 / 1740 360 / 360 Other: Lunch % Eaten 0% Dinner % Eaten 100% Number of Bowel Movements 1 Urine Color Aura Last Bowel Movement 01/12/22 Stool Bedpan Stool Amount Moderate Stool Color Brown Stool Consistency Soft Weight 72 kg 77 kg Weight in Grams 79579 Weight 77 kg - Constitutional Present: no acute distress - Routine HEENT Exam Head: Present: normocephalic Eye: Present: EOMI - Routine Neck Exam Absent: lymphadenopathy - Routine Respiratory Exam Absent: accessory muscle use - Routine Cardiovascular Exam Cardiovascular: Present: RRR, S1, S2 - Routine Extremities Exam Present: calf tenderness - Routine Skin Exam Present: lesions Comments: Left foot and left hand under bandages. Swelling noted of left forearm and left leg. Hem/Onc Consult Result - Labs CBC & Chem 7: 01/13/22 05:15 01/13/22 05:15 Labs: Short CBC 01/13/22 Range/Units 05:15 WBC 13.0 H (4.8-10.8) X10*3/uL Hgb 10.6 L (14.0-18.0) g/dl Hct 32.5 L (42.0-52.0) % Plt Count 147 L D (160-400) X10*3/uL BMP 01/13/22 05:15 Sodium 141 Potassium 4.0 Chloride 109 H Carbon Dioxide 28 BUN 26 H Creatinine 0.81 Calcium 8.4 Assessment and Plan Patient Active problem list reviewed?: Yes (1) Acute pulmonary embolism Status: Acute Assessment and plan: 1. This is an unfortunate 76-year-old man with chronic rheumatoid arthritis and left foot nonhealing ulcer who has been diagnosed with left upper extremity DVT and acute bilateral pulmonary emboli. He has been bed-bound for several weeks and suffered transient cardiac arrest and had to be resuscitated. Echocardiogram at the time of resuscitation revealed increased right heart pressure and his platelet count had dropped while he was a receiving subcutaneous heparin for DVT prophylaxis. CT angiogram revealed bilateral pulmonary emboli with elevated right heart pressures. Bilateral upper extremity Dopplers revealed DVT in the left brachial vein and superficial thrombus in the left basilic and cephalic veins. Because of high suspicion for heparin-induced thrombocytopenia, he has been started on argatroban. Clinically he is doing better although he continues to have swelling of the distal part of his left upper extremity. Result of HIT antibody assay is pending. Lupus anticoagulant test is also pending. He will need to be transitioned to warfarin when his platelet counts are at least 150 K. There should be minimum of 5 days of overlapping therapy and the INR should be in the target range before argatroban can be discontinued. starting dose of warfarin should be low - 5 mg a day. If lupus anticoagulant test is negative, another option is to use a direct oral anticoagulants such as apixaban or rivaroxaban. Duration of anticoagulation is 6 months. I thank you for this consultation. - Time Spent With Patient Time Spent with Patient (in minutes): 25
[2022-01-13 17:24] LABS: Partial Thromboplastin Time 54.7 SEC (24.1-38.0)
[2022-01-13 19:14] LABS: Partial Thromboplastin Time 56.4 SEC (24.1-38.0)
[2022-01-13] MEDS: Albuterol/Iprat 2.5/0.5MG 3 ML AMPUL.NEB INHALE (19:55)
[2022-01-13 22:28] LABS: PTT Heparin Drip 61.3 SEC (53-77.9)
[2022-01-14] VITALS (9 sets, daily range): BP systolic 109–150; BP diastolic 77–93; PULSE 77–88; RESP 13–18; TEMP 37.2–37.6; O2SAT 90–99
[2022-01-14] MEDS: 0.9 % Sodium Chloride Flush 3 ML SYRINGE IVFLUSH ×4 (00:04→22:03)
[2022-01-14 01:04] LABS: PTT Heparin Drip 59.2 SEC (53-77.9)
--- NOTE | 2022-01-14 01:43 | PC.NURSE ---
ARGATROBAN DRIP 1.4 MCG/KG/MIN.....PTT REMAINS STABLE..NO SIGNS OF BLEEDING ..DR YEH UPDATED...TO CHANGE PTT DRAWS TO Q3 HOURS IF PTT STABLE...TO RETURN TO Q2H PTT'S IF DRIP RATE TITRATED
[2022-01-14 03:55] LABS: Partial Thromboplastin Time 59.3 SEC (24.1-38.0)
[2022-01-14 06:39] LABS: Partial Thromboplastin Time 55.3 SEC (24.1-38.0)
[2022-01-14 07:00] LABS: Anion Gap 10 (12-20); Blood Urea Nitrogen 24 mg/dL (9-16); Calcium 8.4 mg/dL (8.4-10.2); Carbon Dioxide 25 mmol/L (22-29); Chloride 104 mmol/L (96-108); Creatinine Clr Calc Pharmacy 74.8; Estimated Glomerular Filt Rate > 60; Glucose Random 85 mg/dL (60-115); Potassium 4.1 mmol/L (3.3-5.1); Sodium 135 mmol/L (135-145)
[2022-01-14] MEDS: Albuterol/Iprat 2.5/0.5MG 3 ML AMPUL.NEB INHALE ×4 (07:47→20:20)
[2022-01-14] MEDS: predniSONE 20 MG TABLET 40 MG PO (08:38)
[2022-01-14] MEDS: Morphine Sulfate 4 MG/ML CARTRIDGE IVPUSH (09:00)
--- NOTE | 2022-01-14 09:36 | MHC.CLN ---
F/U POOR PO PER REBAR BENDER PT REFUSED BREAKFAST THIS MORNING-C/O NAUSEOUS FROM MEDS DIET RX: CARDIAC-APPROPRIATE PT RECEIVING ENSURE BID PROVIDES 700KCALS, 40G PROTEIN TO PROMOTE WOUND HEALING CONTINUE TO MONITOR PO INTAKE CLOSELY
[2022-01-14 10:28] LABS: Partial Thromboplastin Time 63.6 SEC (24.1-38.0)
--- NOTE | 2022-01-14 10:52 | HO.PM.IMPN ---
Subjective Subjective Date of Service: 01/14/22 Interval History: cc: leg pain interval history:diffuse pain, nausea, weakness Cardiovascular Cardiovascular: Reports no additional cardiovascular complaints Respiratory Respiratory: Reports no additional respiratory complaints Physical Exam Vital Signs: Vital Signs: Last Vital Signs Temp 99.3 F 01/14/22 08:00 Pulse 88 01/14/22 08:00 Resp 15 01/14/22 08:00 BP 150/93 H 01/14/22 08:00 Pulse Ox 90 L 01/14/22 08:00 O2 Del Method 01/14/22 08:00 O2 Flow Rate 3 01/14/22 08:00 FiO2 40 01/11/22 13:07 Oxygen Flow Rate 2 12/29/21 13:00 BMI result Body Mass Index 27.3 General: AO X 3, in pain, ill appearing, anasarca Resp: diminished bilateral, no accessory muscles used CVS: S1,S2,RRR GI: soft, non tender, non distended Neuro: motor grossly intact, alert skin: bilateral lower excrtrmeiy ulcers, LUE edematous with bullae (as seen in previous pictures) Psych: appropriate affect, appropriate insight Objective Data Active Medications Albuterol/Ipratropium (Albuterol/Iprat 2.5/0.5mg 3 Ml Ampul.Neb) 3 ml INHALE RQ4H WHILE AWAKE [facility] Last Admin: 01/14/22 07:47 Dose: 3 ml Documented By: ORLIN Docusate Sodium (Docusate Sodium 100 Mg Capsule) 100 mg PO DAILY [facility] Last Admin: 01/14/22 08:39 Dose: Not Given Documented By: RAF Non-Admin Reason: Patient Refused Fentanyl (Fentanyl Citrate/Pf 100 Mcg/2 Ml Vial) 25 mcg IVPUSH Q1H PRN; Protocol PRN Reason: severe pain Fluticasone/Vilanterol (Fluticasone/Vilanterol 100/25 Blst.W.Dev) 1 puff INHALE DAILY PRN PRN Reason: Shortness Of Breath Hydromorphone HCl (Hydromorphone Hcl 0.5 Mg/0.5 Ml Syringe) 0.5 mg IVPUSH Q4H PRN; Protocol PRN Reason: Breakthrough Pain Last Admin: 01/13/22 10:44 Dose: 0.5 mg Documented By: CLARA Argatroban 250 mg/ Sodium (Chloride) 252.5 mls @ 12.315 mls/hr IV .[id number] [facility]; Protocol Last Admin: 01/14/22 00:00 Dose: 1.4 mcg/kg/min, 6.16 mls/hr Documented By: NORMAN Promethazine HCl 6.25 mg/ (Sodium Chloride) 50.25 mls @ 201 mls/hr IV Q6H PRN PRN Reason: Nausea Naloxone HCl (Naloxone Hcl 0.4 Mg/Ml Vial) 0.2 mg IVPUSH Q2M PRN PRN Reason: Excessive sedation or RR < 8 Ondansetron HCl (Ondansetron Hcl 4 Mg/2 Ml Vial) 4 mg IVPUSH Q4H PRN PRN Reason: nausea Last Admin: 01/13/22 12:03 Dose: 4 mg Documented By: CLARA Pharmacy Consult (Consult Rx Perform Med Rec) 1 each MISCELLANE ONCE PRN PRN Reason: Consult order Prednisone (Prednisone 20 Mg Tablet) 40 mg PO DAILY [facility] Last Admin: 01/14/22 08:38 Dose: 40 mg Documented By: RAF Sodium Chloride (0.9 % Sodium Chloride Flush 3 Ml Syringe) 3 ml IVFLUSH QSHIFT [facility] Last Admin: 01/14/22 08:39 Dose: 3 ml Documented By: RAF Labs CBC & Chem 7: 01/13/22 05:15 01/14/22 06:06 Labs: Laboratory Results - last 24 hr 01/13/22 01/13/22 01/13/22 10:50 12:45 14:40 APTT 58.2 H 55.2 H 57.3 H aPTT Heparin Protocol Anion Gap Estim Creat Clear Calc Estimated GFR Random Glucose Calcium 01/13/22 01/13/22 01/13/22 16:42 18:49 22:07 APTT 54.7 H 56.4 H aPTT Heparin Protocol 61.3 Anion Gap Estim Creat Clear Calc Estimated GFR Random Glucose Calcium 01/14/22 01/14/22 01/14/22 00:17 03:39 06:06 APTT 59.3 H aPTT Heparin Protocol 59.2 Anion Gap 10 L Estim Creat Clear Calc 74.8 Estimated GFR > 60 Random Glucose 85 Calcium 8.4 01/14/22 01/14/22 06:06 09:54 APTT 55.3 H 63.6 H* aPTT Heparin Protocol Anion Gap Estim Creat Clear Calc Estimated GFR Random Glucose Calcium Microbiology Microbiology Results: Microbiology 01/09/22 04:38 Blood Culture - Final Blood - Venous No growth after 5 days. 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 presents to the hospital of complaints of worsening pain on his left lower leg Cardiac arrest 01/10/22 requiring intubation PEA/asystole, coded for 15 minutes with return of Rosc Secondary to massive bilateral pulmonary emboli with evidence of elevated right heart pressures and positive DVT in the left brachial vein, positive superficial thrombus in the left basilic and cephalic veins Had been maintained on subcutaneous heparin for DVT prophylaxis Physical therapy consultation Question of HIT HIT workup pending for now continue on Argatroban plan for starting warfarin once plts above 150K, then atleast 5 days of dual therapy, then dc argatroban, can change to doac if LAC negative, monitor cbc, inr Left arm swelling secondary to DVT Seen by vascular surgery rec no intervention at this time continue elevation monitor Nonhealing wound of left lower extremity Hx of Sjogren's likely contributing to pain management also Biopsy of the area showing soft tissue gangrenous necrosis, no osteomyelitis on CT s/p surgical debridement 01/02/22 Initially on IV antibiotics- vanco, zosyn switched to doxy/augmentin, completed course local wound care as per general surgery pain control an issue especially with dressing changes, had been slowly improving prior to Cardiac arrest Wound care every other day, premedicate Cellulitis. Resolved blood cultures negative rheumatoid arthritis continue home medication as well as prednisone COPD, not in exacerbation continue home inhalers DEACON resolved Full code DISPO. to STR when medically stable reason for continued hospitalization: argatroban, close lab monitoring Quality Stroke Does the patient have a stroke diagnosis?: No VTE Prior VTE?: No VTE Risk Level:: Medical - moderate - high VTE Device Contraindication: Treatment Not Indicated VTE Drug Contraindication: N/A - Med Ordered
[2022-01-14] MEDS: fentaNYL citrate/PF 100 MCG/2 ML VIAL 25 MCG IVPUSH ×2 (11:32→21:38)
[2022-01-14] MEDS: fentaNYL 12 MCG PATCH.TD72 TRANSDERMA (12:58)
[2022-01-14 14:01] LABS: Partial Thromboplastin Time 63.6 SEC (24.1-38.0)
--- NOTE | 2022-01-14 14:11 | PC.NURSE ---
Addendum entered by Nae Trujillo RN 01/14/22 14:40: Lopressor 25 PO administered. 1435 18 second long non sustained VTach. Patient resting in bed with no complaints. BP 92/65. Dr Stock notified. BMP and Mag ordered - phlebotomy called to bedside. Cardio consult placed and called in. Will continue to monitor. Original Note: SVT up to 170's with 5BVT, patient asymptomatic. VSS. Dr Stock notified and at bedside. EKG ordered and obtained. No new orders at this time.
--- NOTE | 2022-01-14 14:15 | ECG_ITS ---
Test Reason : SVT, Vtach Blood Pressure : / mmHG Vent. Rate : 102 BPM Atrial Rate : 102 BPM P-R Int : 142 ms QRS Dur : 076 ms QT Int : 302 ms P-R-T Axes : 016 -05 -40 degrees QTc Int : 393 ms Sinus tachycardia with Premature ventricular complexes or Fusion complexes Nonspecific ST and T wave abnormality Abnormal ECG When compared to the previous EKG of IVCD not present anymore Referred By: Master Stock Electronically Signed By:Loco Carr
[2022-01-14] MEDS: Metoprolol Tartrate 25 MG TABLET PO ×2 (14:22→21:56)
[2022-01-14 15:12] LABS: Anion Gap 10 (12-20); Blood Urea Nitrogen 26 mg/dL (9-16); Calcium 8.3 mg/dL (8.4-10.2); Carbon Dioxide 25 mmol/L (22-29); Chloride 103 mmol/L (96-108); Creatinine Clr Calc Pharmacy 70.5; Estimated Glomerular Filt Rate > 60; Glucose Random 142 mg/dL (60-115); Magnesium 1.9 mg/dL (1.6-2.6); Potassium 4.1 mmol/L (3.3-5.1); Sodium 134 mmol/L (135-145)
[2022-01-14] MEDS: Magnesium Sulfate/H2O 2 GM/50 ML PIGGYBACK IV (15:39)
[2022-01-14 15:47] LABS: Heparin Induced Plt Ab POSITIVE (NEGATIVE)
[2022-01-14 18:34] LABS: Partial Thromboplastin Time 62.8 SEC (24.1-38.0)
[2022-01-14 21:49] LABS: Partial Thromboplastin Time 55.2 SEC (24.1-38.0)
[2022-01-14] MEDS: Argatroban 250 MG in 0.9 % Sodium Chloride 250 ML 6.16 MG IV ×2 (21:58)
--- NOTE | 2022-01-14 23:04 | P.CONWO_ITS ---
History of Present Illness Data of Consult Service Date: 01/14/22 Requesting physician: Master Stock Primary Care Provider: Kia Stroud MD [facility] Reason for consult: buttock DTI The pt is a 76 year old male who has been hospitalized for painful necrotic skin lesions on his legs- he has undergone surgical debridement for these and they have been treated for infection with iv antibiotics. unfortunately the pt also developed a left arm DVT and then had PE which lead to him having a cardiac arrest and coded. He was resuscitated with 4 rounds of epi and intubated but recovered and was extubated in the icu. during this time he developed some DTI to the buttock area bilaterally around the level of the anus. the tissue partially blanches but there is no significant skin breakdown. He is on an offloading bed and now is awake and stable in regards to vitals. He is known to us in wound care. [facility] Medical History Chronic ulcer of leg Chronic venous insufficiency CKD (chronic kidney disease) stage 3, GFR 30-59 ml/min COPD (chronic obstructive pulmonary disease) Elevated serum creatinine HTN (hypertension) Leg pain, bilateral Rheumatoid arthritis Sjogren's disease Vasculitis Functional capacity: independent ambulation Family History Other No family history of coronary artery disease Surgical History History of hernia repair History of left knee replacement Social History Household Members: Spouse Housing: House Do you presently have visiting nurse or other home services: No Alcohol intake: current Alcohol intake frequency: holidays/special occasions only Patient Tobacco Use Status: Former Tobacco user Tobacco use type: Cigarette Years Smoked: quit 2019 e-Cigarette/Vaping Use: Never Used Advance Directives Date on File: 12/23/21 service: No Current occupational status: retired Cognitive needs: Yes (cane) Hearing needs: No Vision needs: Yes (Pt wear glasses. ) Meds Allergies Allergy/AdvReac Type Severity Reaction Status Date / Time No Known Allergies Allergy Verified 12/22/21 11:15 [No Known Allergies*] Active Medications: Current Medications Albuterol/Ipratropium (Albuterol/Iprat 2.5/0.5mg 3 Ml Ampul.Neb) 3 ml INHALE RQ4H WHILE AWAKE [facility] Last Admin: 01/14/22 20:20 Dose: 3 ml Docusate Sodium (Docusate Sodium 100 Mg Capsule) 100 mg PO DAILY [facility] Last Admin: 01/14/22 08:39 Dose: Not Given Fentanyl (Fentanyl Citrate/Pf 100 Mcg/2 Ml Vial) 25 mcg IVPUSH Q1H PRN; Protocol PRN Reason: severe pain Last Admin: 01/14/22 21:38 Dose: 25 mcg Fentanyl (Fentanyl 12 Mcg Patch.Td72) 12 mcg TRANSDERMA Q72H [facility] Last Admin: 01/14/22 12:58 Dose: 12 mcg Fluticasone/Vilanterol (Fluticasone/Vilanterol 100/25 Blst.W.Dev) 1 puff INHALE DAILY PRN PRN Reason: Shortness Of Breath Argatroban 250 mg/ Sodium (Chloride) 252.5 mls @ 12.315 mls/hr IV .[id number] [facility]; Protocol Last Admin: 01/14/22 21:58 Dose: 1.4 mcg/kg/min, 6.16 mls/hr Metoprolol Tartrate (Metoprolol Tartrate 25 Mg Tablet) 25 mg PO BID [facility]; Protocol Last Admin: 01/14/22 21:56 Dose: 25 mg Naloxone HCl (Naloxone Hcl 0.4 Mg/Ml Vial) 0.2 mg IVPUSH Q2M PRN PRN Reason: Excessive sedation or RR < 8 Pharmacy Consult (Consult Rx Perform Med Rec) 1 each MISCELLANE ONCE PRN PRN Reason: Consult order Prednisone (Prednisone 20 Mg Tablet) 40 mg PO DAILY [facility] Last Admin: 01/14/22 08:38 Dose: 40 mg Sodium Chloride (0.9 % Sodium Chloride Flush 3 Ml Syringe) 3 ml IVFLUSH QSHIFT [facility] Last Admin: 01/14/22 22:03 Dose: 3 ml Home Medications Medication Instructions Recorded Confirmed Last Taken Type umeclidinium 62.5 mcg-vilanterol 1 inh inhalation DAILY PRN 10/15/21 12/22/21 Unknown History 25 mcg/actuation powdr for Shortness Of Breath inhalation (Anoro Ellipta) acetaminophen 500 mg tablet 1,000 mg PO Q6H PRN Pain (Scale 10/30/21 12/22/21 12/22/21 History (Tylenol Extra Strength) Score 1-3) albuterol sulfate 90 mcg/actuation 2 puff inhalation Q6H PRN 11/28/21 12/22/21 Unknown History aerosol inhaler (ProAir HFA) Shortness Of Breath tocilizumab 80 mg/4 mL (20 mg/mL) 0 mg IV Q30D 11/28/21 12/22/21 12/02/21 History intravenous solution (Actemra) duloxetine 20 mg capsule,delayed 20 mg PO BEDTIME 12/19/21 12/22/21 12/21/21 History release prednisone 10 mg tablet See Taper PO DAILY 12/19/21 12/22/21 12/21/21 History Physical Exam Vital Signs and Narrative: Vital Signs: Last Vital Signs Temp 98.6 F 01/15/22 00:00 Pulse 95 01/15/22 00:00 Resp 12 01/15/22 00:00 BP 131/83 01/15/22 00:00 Pulse Ox 95 01/15/22 00:00 O2 Del Method 01/15/22 00:00 O2 Flow Rate 5 01/15/22 00:00 FiO2 40 01/11/22 13:07 Oxygen Flow Rate 2 12/29/21 13:00 BMI result Body Mass Index 27.3 Skin: Other: buttock area bilaterally around the level of the anus has purplish/inkish color changes consistent with some DTI - no significant skin breakdown - maybe slight epithelial slough but otherwise intact. Results Labs CBC and Chem 7: 01/13/22 05:15 01/14/22 14:48 Labs: Laboratory Results - last 24 hr 01/09/22 01/14/22 01/14/22 07:29 00:17 03:39 APTT 59.3 H aPTT Heparin Protocol 59.2 Hep-Ind Thrombocytop Com See Below Anion Gap Estim Creat Clear Calc Estimated GFR Random Glucose Calcium Magnesium Heparin Dep Plt Ab OD >2.000 H Hep-Induced Plt Ab Nina POSITIVE A 01/14/22 01/14/22 01/14/22 06:06 06:06 09:54 APTT 55.3 H 63.6 H* aPTT Heparin Protocol Hep-Ind Thrombocytop Com Anion Gap 10 L Estim Creat Clear Calc 74.8 Estimated GFR > 60 Random Glucose 85 Calcium 8.4 Magnesium Heparin Dep Plt Ab OD Hep-Induced Plt Ab Nina 01/14/22 01/14/22 01/14/22 13:12 14:48 17:24 APTT 63.6 H* 62.8 H* aPTT Heparin Protocol Hep-Ind Thrombocytop Com Anion Gap 10 L Estim Creat Clear Calc 70.5 Estimated GFR > 60 Random Glucose 142 H D Calcium 8.3 L Magnesium 1.9 Heparin Dep Plt Ab OD Hep-Induced Plt Ab Nina 01/14/22 01/15/22 21:35 00:33 APTT 55.2 H aPTT Heparin Protocol 57.2 Hep-Ind Thrombocytop Com Anion Gap Estim Creat Clear Calc Estimated GFR Random Glucose Calcium Magnesium Heparin Dep Plt Ab OD Hep-Induced Plt Ab Nina Assessment and Plan (1) Pressure injury of buttock, stage 1: Status: Acute Plan 76 year old male known to us at wound care with leg wounds hospitalized for these and infection then went on to have dvt and thrombocytopenia and PE and coded and resuscitated and developed some DTI to buttock area. This is now improving and the patient is stable, better vitals- encourage protein intake, offloading and repositioning, special mattress, and teatment of underlying disease- PE, thrombocytopenia, ?vasculitis.
[2022-01-15] VITALS (8 sets, daily range): BP systolic 99–140; BP diastolic 65–98; PULSE 69–95; RESP 12–19; TEMP 36.4–37.5; O2SAT 93–99
[2022-01-15 00:49] LABS: PTT Heparin Drip 57.2 SEC (53-77.9)
[2022-01-15 03:59] LABS: PTT Heparin Drip 48.7 SEC (53-77.9)
[2022-01-15] MEDS: fentaNYL citrate/PF 100 MCG/2 ML VIAL 25 MCG IVPUSH ×2 (06:03→09:45)
[2022-01-15 06:20] LABS: Hemoglobin 10.9 g/dl (14.0-18.0); Mean Corpuscular Volume 87.8 fL (80.0-98.0); Mean Platelet Volume 9.2 fL (9.4-12.4); Platelet Count 223 X10*3/uL (160-400); Red Blood Count 3.76 X10*6/uL (4.60-5.80); Red Cell Distribution Width 13.2 % (11.0-16.0); White Blood Count 13.2 X10*3/uL (4.8-10.8)
[2022-01-15 06:32] LABS: INTERNATIONAL NORM RATIO 1.8 (0.9-1.1); Prothrombin Time 20.7 SEC (10.0-13.1)
[2022-01-15 06:47] LABS: Anion Gap 10 (12-20); Blood Urea Nitrogen 22 mg/dL (9-16); Calcium 8.3 mg/dL (8.4-10.2); Carbon Dioxide 26 mmol/L (22-29); Chloride 103 mmol/L (96-108); Creatinine Clr Calc Pharmacy 78.7; Estimated Glomerular Filt Rate > 60; Glucose Fasting 84 mg/dL (60-99); Magnesium 2.1 mg/dL (1.6-2.6); Potassium 3.9 mmol/L (3.3-5.1); Sodium 135 mmol/L (135-145)
[2022-01-15 07:13] LABS: DRVVT Confirmation Negative (Negative); Hexagonal Phase Neutralization Positive (Negative)
[2022-01-15] MEDS: Albuterol/Iprat 2.5/0.5MG 3 ML AMPUL.NEB INHALE (07:24)
--- NOTE | 2022-01-15 07:35 | PM.EVENT ---
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 Please list heparin as allergy, avoid heparin completely in future. Start warfarin today. Can switch to DOAC as outpt when pt more stable.
[2022-01-15 07:42] LABS: PTT Heparin Drip 53.4 SEC (53-77.9)
[2022-01-15 07:47] LABS: DRVVT 1:1 Mix Interpretation Not Indicated; PTT (LAC) Screen 144 sec (<=40); Thrombin Clotting Time >100 sec (13-19)
--- NOTE | 2022-01-15 08:51 | HO.PM.IMPN ---
Subjective Subjective Date of Service: 01/15/22 Interval History: cc: leg pain interval history:diffuse pain, nausea, weakness Cardiovascular Cardiovascular: Reports no additional cardiovascular complaints Respiratory Respiratory: Reports no additional respiratory complaints Physical Exam Vital Signs: Vital Signs: Last Vital Signs Temp 98.4 F 01/15/22 08:00 Pulse 77 01/15/22 08:00 Resp 13 01/15/22 08:00 BP 129/89 01/15/22 08:00 Pulse Ox 93 01/15/22 08:00 O2 Del Method 01/15/22 08:00 O2 Flow Rate 2 01/15/22 08:00 FiO2 40 01/11/22 13:07 Oxygen Flow Rate 2 12/29/21 13:00 BMI result Body Mass Index 27.3 General: AO X 3, in pain, ill appearing, anasarca Resp: diminished bilateral, no accessory muscles used CVS: S1,S2,RRR GI: soft, non tender, non distended Neuro: motor grossly intact, alert skin: bilateral lower excrtrmeiy ulcers, LUE edematous with bullae (as seen in previous pictures) Psych: appropriate affect, appropriate insight Objective Data Active Medications Albuterol/Ipratropium (Albuterol/Iprat 2.5/0.5mg 3 Ml Ampul.Neb) 3 ml INHALE RQ4H WHILE AWAKE [facility] Last Admin: 01/15/22 07:24 Dose: 3 ml Documented By: ORLIN Docusate Sodium (Docusate Sodium 100 Mg Capsule) 100 mg PO DAILY [facility] Last Admin: 01/14/22 08:39 Dose: Not Given Documented By: RAF Non-Admin Reason: Patient Refused Fentanyl (Fentanyl Citrate/Pf 100 Mcg/2 Ml Vial) 25 mcg IVPUSH Q1H PRN; Protocol PRN Reason: severe pain Last Admin: 01/15/22 06:03 Dose: 25 mcg Documented By: TERRA Fentanyl (Fentanyl 12 Mcg Patch.Td72) 12 mcg TRANSDERMA Q72H [facility] Last Admin: 01/14/22 12:58 Dose: 12 mcg Documented By: RAF Fluticasone/Vilanterol (Fluticasone/Vilanterol 100/25 Blst.W.Dev) 1 puff INHALE DAILY PRN PRN Reason: Shortness Of Breath Argatroban 250 mg/ Sodium (Chloride) 252.5 mls @ 12.315 mls/hr IV .[id number] [facility]; Protocol Last Admin: 01/14/22 21:58 Dose: 1.4 mcg/kg/min, 6.16 mls/hr Documented By: TERRA Metoprolol Tartrate (Metoprolol Tartrate 25 Mg Tablet) 25 mg PO BID [facility]; Protocol Last Admin: 01/14/22 21:56 Dose: 25 mg Documented By: TERRA Naloxone HCl (Naloxone Hcl 0.4 Mg/Ml Vial) 0.2 mg IVPUSH Q2M PRN PRN Reason: Excessive sedation or RR < 8 Pharmacy Consult (Consult Rx Perform Med Rec) 1 each MISCELLANE ONCE PRN PRN Reason: Consult order Prednisone (Prednisone 20 Mg Tablet) 40 mg PO DAILY [facility] Last Admin: 01/14/22 08:38 Dose: 40 mg Documented By: RAF Sodium Chloride (0.9 % Sodium Chloride Flush 3 Ml Syringe) 3 ml IVFLUSH QSHIFT [facility] Last Admin: 01/14/22 22:03 Dose: 3 ml Documented By: TERRA Warfarin Sodium (Warfarin Sodium 5 Mg Tablet) 5 mg PO DAILY@1800 [facility] Labs CBC & Chem 7: 01/15/22 06:10 01/15/22 06:10 Labs: Laboratory Results - last 24 hr 01/09/22 01/10/22 01/14/22 07:29 13:11 09:54 MCV MCH MCHC RDW Plt Count MPV Absolute Nucleated RBC Nucleated RBC % (auto) PT INR APTT 63.6 H* aPTT Heparin Protocol LA PTT Screen 144 H LA Thrombin Time >100 H dRVV Screen 153 H dRVVT Confirm Interp Negative dRVVT Mix Interpret Not Indicated Lupus Anticoag Interp see note Hep-Ind Thrombocytop Com See Below Anion Gap Estim Creat Clear Calc Estimated GFR Random Glucose Fasting Glucose Calcium Magnesium Heparin Dep Plt Ab OD >2.000 H Hep-Induced Plt Ab Nina POSITIVE A 01/14/22 01/14/22 01/14/22 13:12 14:48 17:24 MCV MCH MCHC RDW Plt Count MPV Absolute Nucleated RBC Nucleated RBC % (auto) PT INR APTT 63.6 H* 62.8 H* aPTT Heparin Protocol LA PTT Screen LA Thrombin Time dRVV Screen dRVVT Confirm Interp dRVVT Mix Interpret Lupus Anticoag Interp Hep-Ind Thrombocytop Com Anion Gap 10 L Estim Creat Clear Calc 70.5 Estimated GFR > 60 Random Glucose 142 H D Fasting Glucose Calcium 8.3 L Magnesium 1.9 Heparin Dep Plt Ab OD Hep-Induced Plt Ab Nina 01/14/22 01/15/22 01/15/22 21:35 00:33 03:40 MCV MCH MCHC RDW Plt Count MPV Absolute Nucleated RBC Nucleated RBC % (auto) PT INR APTT 55.2 H aPTT Heparin Protocol 57.2 48.7 L LA PTT Screen LA Thrombin Time dRVV Screen dRVVT Confirm Interp dRVVT Mix Interpret Lupus Anticoag Interp Hep-Ind Thrombocytop Com Anion Gap Estim Creat Clear Calc Estimated GFR Random Glucose Fasting Glucose Calcium Magnesium Heparin Dep Plt Ab OD Hep-Induced Plt Ab Nina 01/15/22 01/15/22 01/15/22 06:10 06:10 06:10 MCV 87.8 MCH 29.0 MCHC 33.0 RDW 13.2 Plt Count 223 D MPV 9.2 L Absolute Nucleated RBC 0.000 Nucleated RBC % (auto) 0.0 PT 20.7 H INR 1.8 H APTT aPTT Heparin Protocol LA PTT Screen LA Thrombin Time dRVV Screen dRVVT Confirm Interp dRVVT Mix Interpret Lupus Anticoag Interp Hep-Ind Thrombocytop Com Anion Gap 10 L Estim Creat Clear Calc 78.7 Estimated GFR > 60 Random Glucose Fasting Glucose 84 Calcium 8.3 L Magnesium 2.1 Heparin Dep Plt Ab OD Hep-Induced Plt Ab Nina 01/15/22 06:10 MCV MCH MCHC RDW Plt Count MPV Absolute Nucleated RBC Nucleated RBC % (auto) PT INR APTT aPTT Heparin Protocol 53.4 LA PTT Screen LA Thrombin Time dRVV Screen dRVVT Confirm Interp dRVVT Mix Interpret Lupus Anticoag Interp Hep-Ind Thrombocytop Com Anion Gap Estim Creat Clear Calc Estimated GFR Random Glucose Fasting Glucose Calcium Magnesium Heparin Dep Plt Ab OD Hep-Induced Plt Ab Nina Microbiology Microbiology Results: Microbiology 01/09/22 04:38 Blood Culture - Final Blood - Venous No growth after 5 days. 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 presents to the hospital of complaints of worsening pain on his left lower leg Cardiac arrest 01/10/22 requiring intubation PEA/asystole, coded for 15 minutes with return of Rosc Secondary to massive bilateral pulmonary emboli with evidence of elevated right heart pressures and positive DVT in the left brachial vein, positive superficial thrombus in the left basilic and cephalic veins Had been maintained on subcutaneous heparin for DVT prophylaxis Physical therapy consultation 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, platelets now >150K, will start coumadin 5mg daily, aim for inr around 4 while still on argatroban for atleast 5 days, then can dc argatroban and aim for inr 2-3 monitor cbc, inr Left arm swelling secondary to DVT Seen by vascular surgery rec no intervention at this time continue elevation monitor Nonhealing wound of left lower extremity Hx of Sjogren's likely contributing to pain management also Biopsy of the area showing soft tissue gangrenous necrosis, no osteomyelitis on CT s/p surgical debridement 01/02/22 Initially on IV antibiotics- vanco, zosyn switched to doxy/augmentin, completed course local wound care as per general surgery pain control an issue especially with dressing changes, had been slowly improving prior to Cardiac arrest Wound care every other day, premedicate wide complex tachyarrhtyhmia cardio eval now in sinus Cellulitis. Resolved blood cultures negative rheumatoid arthritis continue home medication as well as prednisone COPD, not in exacerbation continue home inhalers DEACON resolved Full code DISPO. to STR when medically stable reason for continued hospitalization: argatroban, close lab monitoring Quality Stroke Does the patient have a stroke diagnosis?: No VTE Prior VTE?: No VTE Risk Level:: Medical - moderate - high VTE Device Contraindication: Treatment Not Indicated VTE Drug Contraindication: N/A - Med Ordered
--- NOTE | 2022-01-15 09:43 | P.PNGS_ITS ---
Subjective Subjective Date of Service: 01/15/22 Interval history: Still short of breath Has some pain on the left leg Dressings were changed yesterday and required premedications Physical Exam Vital Signs: Vital Signs: Last Vital Signs Temp 98.4 F 01/15/22 08:00 Pulse 77 01/15/22 08:00 Resp 13 01/15/22 08:00 BP 129/89 01/15/22 08:00 Pulse Ox 93 01/15/22 08:00 O2 Del Method 01/15/22 08:00 O2 Flow Rate 2 01/15/22 08:00 FiO2 40 01/11/22 13:07 Oxygen Flow Rate 2 12/29/21 13:00 BMI result Body Mass Index 27.3 Const: Other: A little short of breath but comfortable Resp: Other: A little short of breath Cardio: Rate: regular rate GI: Palpation (GI): Soft to palpation and nontender Extrem: Other: Dressings on the left leg clean Has some fully on the left arm with swelling Objective Data Active Medications Albuterol/Ipratropium (Albuterol/Iprat 2.5/0.5mg 3 Ml Ampul.Neb) 3 ml INHALE RQ4H WHILE AWAKE [facility] Last Admin: 01/15/22 07:24 Dose: 3 ml Documented By: ORLIN Docusate Sodium (Docusate Sodium 100 Mg Capsule) 100 mg PO DAILY [facility] Last Admin: 01/14/22 08:39 Dose: Not Given Documented By: RAF Non-Admin Reason: Patient Refused Fentanyl (Fentanyl Citrate/Pf 100 Mcg/2 Ml Vial) 25 mcg IVPUSH Q1H PRN; Protocol PRN Reason: severe pain Last Admin: 01/15/22 06:03 Dose: 25 mcg Documented By: TERRA Fentanyl (Fentanyl 12 Mcg Patch.Td72) 12 mcg TRANSDERMA Q72H [facility] Last Admin: 01/14/22 12:58 Dose: 12 mcg Documented By: RAF Fluticasone/Vilanterol (Fluticasone/Vilanterol 100/25 Blst.W.Dev) 1 puff INHALE DAILY PRN PRN Reason: Shortness Of Breath Argatroban 250 mg/ Sodium (Chloride) 252.5 mls @ 12.315 mls/hr IV .[id number] [facility]; Protocol Last Admin: 01/14/22 21:58 Dose: 1.4 mcg/kg/min, 6.16 mls/hr Documented By: TERRA Metoprolol Tartrate (Metoprolol Tartrate 25 Mg Tablet) 25 mg PO BID [facility]; Protocol Last Admin: 01/14/22 21:56 Dose: 25 mg Documented By: TERRA Naloxone HCl (Naloxone Hcl 0.4 Mg/Ml Vial) 0.2 mg IVPUSH Q2M PRN PRN Reason: Excessive sedation or RR < 8 Omeprazole (Omeprazole 40 Mg Capsule.Dr) 40 mg PO DAILY@0630 [facility] Pharmacy Consult (Consult Rx Perform Med Rec) 1 each MISCELLANE ONCE PRN PRN Reason: Consult order Prednisone (Prednisone 20 Mg Tablet) 40 mg PO DAILY [facility] Last Admin: 01/14/22 08:38 Dose: 40 mg Documented By: RAF Sodium Chloride (0.9 % Sodium Chloride Flush 3 Ml Syringe) 3 ml IVFLUSH QSHIFT [facility] Last Admin: 01/14/22 22:03 Dose: 3 ml Documented By: TERRA Warfarin Sodium (Warfarin Sodium 5 Mg Tablet) 5 mg PO DAILY@1800 [facility] Labs CBC & Chem 7: 01/15/22 06:10 01/15/22 06:10 Labs: Laboratory Results - last 24 hr 01/09/22 01/10/22 01/14/22 07:29 13:11 09:54 MCV MCH MCHC RDW Plt Count MPV Absolute Nucleated RBC Nucleated RBC % (auto) PT INR APTT 63.6 H* aPTT Heparin Protocol LA PTT Screen 144 H LA Thrombin Time >100 H dRVV Screen 153 H dRVVT Confirm Interp Negative dRVVT Mix Interpret Not Indicated Lupus Anticoag Interp see note Hep-Ind Thrombocytop Com See Below Anion Gap Estim Creat Clear Calc Estimated GFR Random Glucose Fasting Glucose Calcium Magnesium Heparin Dep Plt Ab OD >2.000 H Hep-Induced Plt Ab Nina POSITIVE A 01/14/22 01/14/22 01/14/22 13:12 14:48 17:24 MCV MCH MCHC RDW Plt Count MPV Absolute Nucleated RBC Nucleated RBC % (auto) PT INR APTT 63.6 H* 62.8 H* aPTT Heparin Protocol LA PTT Screen LA Thrombin Time dRVV Screen dRVVT Confirm Interp dRVVT Mix Interpret Lupus Anticoag Interp Hep-Ind Thrombocytop Com Anion Gap 10 L Estim Creat Clear Calc 70.5 Estimated GFR > 60 Random Glucose 142 H D Fasting Glucose Calcium 8.3 L Magnesium 1.9 Heparin Dep Plt Ab OD Hep-Induced Plt Ab Nina 01/14/22 01/15/22 01/15/22 21:35 00:33 03:40 MCV MCH MCHC RDW Plt Count MPV Absolute Nucleated RBC Nucleated RBC % (auto) PT INR APTT 55.2 H aPTT Heparin Protocol 57.2 48.7 L LA PTT Screen LA Thrombin Time dRVV Screen dRVVT Confirm Interp dRVVT Mix Interpret Lupus Anticoag Interp Hep-Ind Thrombocytop Com Anion Gap Estim Creat Clear Calc Estimated GFR Random Glucose Fasting Glucose Calcium Magnesium Heparin Dep Plt Ab OD Hep-Induced Plt Ab Nina 01/15/22 01/15/22 01/15/22 06:10 06:10 06:10 MCV 87.8 MCH 29.0 MCHC 33.0 RDW 13.2 Plt Count 223 D MPV 9.2 L Absolute Nucleated RBC 0.000 Nucleated RBC % (auto) 0.0 PT 20.7 H INR 1.8 H APTT aPTT Heparin Protocol LA PTT Screen LA Thrombin Time dRVV Screen dRVVT Confirm Interp dRVVT Mix Interpret Lupus Anticoag Interp Hep-Ind Thrombocytop Com Anion Gap 10 L Estim Creat Clear Calc 78.7 Estimated GFR > 60 Random Glucose Fasting Glucose 84 Calcium 8.3 L Magnesium 2.1 Heparin Dep Plt Ab OD Hep-Induced Plt Ab Nina 01/15/22 06:10 MCV MCH MCHC RDW Plt Count MPV Absolute Nucleated RBC Nucleated RBC % (auto) PT INR APTT aPTT Heparin Protocol 53.4 LA PTT Screen LA Thrombin Time dRVV Screen dRVVT Confirm Interp dRVVT Mix Interpret Lupus Anticoag Interp Hep-Ind Thrombocytop Com Anion Gap Estim Creat Clear Calc Estimated GFR Random Glucose Fasting Glucose Calcium Magnesium Heparin Dep Plt Ab OD Hep-Induced Plt Ab Nina Microbiology Microbiology Results: Microbiology 01/09/22 04:38 Blood Culture - Final Blood - Venous No growth after 5 days. Procedures Date of Service Date of Service: 01/15/22 Progress Note: A&P Assessment and plan (1) Eschar of lower leg: Status: Acute Assessment and Plan: Status post debridement Plan to change dressings tomorrow with silver alginate Still requiring premedication with IV meds To be started on Coumadin due to [place] Time Spent With Patient Time: Total time spent is greater than 50% in coordination of care (as documented) at patient's floor/unit and/or counseling patient: Quality Stroke Does the patient have a stroke diagnosis?: No VTE Prior VTE?: No VTE Risk Level:: Medical - moderate - high VTE Device Contraindication: Treatment Not Indicated VTE Drug Contraindication: N/A - Med Ordered
[2022-01-15] MEDS: predniSONE 20 MG TABLET 40 MG PO (09:46)
[2022-01-15] MEDS: Metoprolol Tartrate 25 MG TABLET PO ×2 (09:46→20:08)
[2022-01-15] MEDS: 0.9 % Sodium Chloride Flush 3 ML SYRINGE IVFLUSH ×3 (09:46→20:08)
[2022-01-15] MEDS: Docusate Sodium 100 MG CAPSULE PO (09:46)
[2022-01-15] MEDS: Omeprazole 40 MG CAPSULE.DR PO (09:52)
[2022-01-15 10:07] LABS: PTT Heparin Drip 60.5 SEC (53-77.9)
[2022-01-15] MEDS: oxyCODONE HCl Immed Release 5 MG TABLET PO ×2 (10:34→17:50)
[2022-01-15] MEDS: fentaNYL 25 MCG PATCH.TD72 TRANSDERMA (12:52)
[2022-01-15 13:06] LABS: PTT Heparin Drip 63.7 SEC (53-77.9)
--- NOTE | 2022-01-15 14:19 | P.CONCA_ITS ---
History of Present Illness History of Present Illness Date of Service: 01/15/22 Requesting physician: Master Stock Chief complaint: PE, WCT Narrative: 76-year-old gentleman who had pea arrest secondary to massive pulmonary embolism who is extubated now and doing well. Yesterday he had 3-4 self-limiting episodes of wide complex tachycardia. Telemetry was reviewed. He did not have any symptoms at the time he had these runs. He is saying his breathing is impr oving. He has no chest discomfort or pain. Denying any palpitations. EKG, labs and imaging reviewed. Telemetry review has shown wide complex tachycardia which terminated spontaneously. One of the runs clearly has transition from wide complex to narrow complex with same heart rate. [facility] Past Medical History Medical History Chronic ulcer of leg Chronic venous insufficiency CKD (chronic kidney disease) stage 3, GFR 30-59 ml/min COPD (chronic obstructive pulmonary disease) Elevated serum creatinine HTN (hypertension) Leg pain, bilateral Rheumatoid arthritis Sjogren's disease Vasculitis Functional capacity: independent ambulation Family History Family History Other No family history of coronary artery disease Family history: reviewed and not pertinent Surgical History Surgical History History of hernia repair History of left knee replacement Social History Social History Household Members: Spouse Housing: House Do you presently have visiting nurse or other home services: No Alcohol intake: current Alcohol intake frequency: holidays/special occasions only Patient Tobacco Use Status: Former Tobacco user Tobacco use type: Cigarette Years Smoked: quit 2019 e-Cigarette/Vaping Use: Never Used Advance Directives Date on File: 12/23/21 service: No Current occupational status: retired Cognitive needs: Yes (cane) Hearing needs: No Vision needs: Yes (Pt wear glasses. ) Meds Allergies Allergy/AdvReac Type Severity Reaction Status Date / Time No Known Allergies Allergy Verified 12/22/21 11:15 [No Known Allergies*] Active Medications: Current Medications Albuterol/Ipratropium (Albuterol/Iprat 2.5/0.5mg 3 Ml Ampul.Neb) 3 ml INHALE RQ4H WHILE AWAKE [facility] Last Admin: 01/15/22 07:24 Dose: 3 ml Docusate Sodium (Docusate Sodium 100 Mg Capsule) 100 mg PO DAILY [facility] Last Admin: 01/15/22 09:46 Dose: 100 mg Fentanyl (Fentanyl Citrate/Pf 100 Mcg/2 Ml Vial) 25 mcg IVPUSH Q1H PRN; Protocol PRN Reason: severe pain Last Admin: 01/15/22 09:45 Dose: 25 mcg Fentanyl (Fentanyl 25 Mcg Patch.Td72) 25 mcg TRANSDERMA Q72H [facility] Last Admin: 01/15/22 12:52 Dose: 25 mcg Fluticasone/Vilanterol (Fluticasone/Vilanterol 100/25 Blst.W.Dev) 1 puff INHALE DAILY PRN PRN Reason: Shortness Of Breath Argatroban 250 mg/ Sodium (Chloride) 252.5 mls @ 12.315 mls/hr IV .[id number] [facility]; Protocol Last Admin: 01/14/22 21:58 Dose: 1.4 mcg/kg/min, 6.16 mls/hr Metoprolol Tartrate (Metoprolol Tartrate 25 Mg Tablet) 25 mg PO BID [facility]; Protocol Last Admin: 01/15/22 09:46 Dose: 25 mg Naloxone HCl (Naloxone Hcl 0.4 Mg/Ml Vial) 0.2 mg IVPUSH Q2M PRN PRN Reason: Excessive sedation or RR < 8 Omeprazole (Omeprazole 40 Mg Capsule.Dr) 40 mg PO DAILY@0630 [facility] Last Admin: 01/15/22 09:52 Dose: 40 mg Oxycodone HCl (Oxycodone Hcl Immed Release 5 Mg Tablet) 5 mg PO Q4H PRN PRN Reason: moderate pain Last Admin: 01/15/22 10:34 Dose: 5 mg Pharmacy Consult (Consult Rx Perform Med Rec) 1 each MISCELLANE ONCE PRN PRN Reason: Consult order Prednisone (Prednisone 20 Mg Tablet) 40 mg PO DAILY [facility] Last Admin: 01/15/22 09:46 Dose: 40 mg Sodium Chloride (0.9 % Sodium Chloride Flush 3 Ml Syringe) 3 ml IVFLUSH QSHIFT [facility] Last Admin: 01/15/22 09:46 Dose: 3 ml Warfarin Sodium (Warfarin Sodium 5 Mg Tablet) 5 mg PO DAILY@1800 [facility] Home Medications Medication Instructions Recorded Confirmed Last Taken Type umeclidinium 62.5 mcg-vilanterol 1 inh inhalation DAILY PRN 10/15/21 12/22/21 Unknown History 25 mcg/actuation powdr for Shortness Of Breath inhalation (Anoro Ellipta) acetaminophen 500 mg tablet 1,000 mg PO Q6H PRN Pain (Scale 10/30/21 12/22/21 12/22/21 History (Tylenol Extra Strength) Score 1-3) albuterol sulfate 90 mcg/actuation 2 puff inhalation Q6H PRN 11/28/21 12/22/21 Unknown History aerosol inhaler (ProAir HFA) Shortness Of Breath tocilizumab 80 mg/4 mL (20 mg/mL) 0 mg IV Q30D 11/28/21 12/22/21 12/02/21 History intravenous solution (Actemra) duloxetine 20 mg capsule,delayed 20 mg PO BEDTIME 12/19/21 12/22/21 12/21/21 History release prednisone 10 mg tablet See Taper PO DAILY 12/19/21 12/22/21 12/21/21 History Physical Exam Vital Signs: Vital Signs: Last Vital Signs Temp 99 F 01/15/22 12:00 Pulse 77 01/15/22 12:00 Resp 18 01/15/22 12:00 BP 99/65 01/15/22 12:00 Pulse Ox 94 01/15/22 12:00 O2 Del Method 01/15/22 12:00 O2 Flow Rate 2 01/15/22 12:00 FiO2 40 01/11/22 13:07 Oxygen Flow Rate 2 12/29/21 13:00 BMI result Body Mass Index 27.3 GENERAL APPEARANCE: in no acute distress, pleasant. NECK: no carotid bruit, no jugular venous distention. Right IJ triple-lumen catheter. SKIN: no suspicious lesions, warm and dry. HEART: no murmurs, regular rate and rhythm. LUNGS: clear to auscultation bilaterally. ABDOMEN: soft, nontender. EXTREMITIES: no edema. PERIPHERAL PULSES: equal. NEUROLOGIC: No gross deficits, AAO X 3 Objective Labs and Meds Result diagrams: 01/15/22 06:10 01/15/22 06:10 Lab results: Laboratory Results - last 24 hr 01/09/22 01/10/22 01/14/22 07:29 13:11 14:48 WBC RBC Hgb Hct MCV MCH MCHC RDW Plt Count MPV Absolute Nucleated RBC Nucleated RBC % (auto) PT INR APTT aPTT Heparin Protocol LA PTT Screen 144 H LA Thrombin Time >100 H dRVV Screen 153 H dRVVT Confirm Interp Negative dRVVT Mix Interpret Not Indicated Lupus Anticoag Interp see note Hep-Ind Thrombocytop Com See Below Sodium 134 L Potassium 4.1 Chloride 103 Carbon Dioxide 25 Anion Gap 10 L BUN 26 H Creatinine 0.87 Estim Creat Clear Calc 70.5 Estimated GFR > 60 Random Glucose 142 H D Fasting Glucose Calcium 8.3 L Magnesium 1.9 Heparin Dep Plt Ab OD >2.000 H Hep-Induced Plt Ab Nina POSITIVE A 01/14/22 01/14/22 01/15/22 17:24 21:35 00:33 WBC RBC Hgb Hct MCV MCH MCHC RDW Plt Count MPV Absolute Nucleated RBC Nucleated RBC % (auto) PT INR APTT 62.8 H* 55.2 H aPTT Heparin Protocol 57.2 LA PTT Screen LA Thrombin Time dRVV Screen dRVVT Confirm Interp dRVVT Mix Interpret Lupus Anticoag Interp Hep-Ind Thrombocytop Com Sodium Potassium Chloride Carbon Dioxide Anion Gap BUN Creatinine Estim Creat Clear Calc Estimated GFR Random Glucose Fasting Glucose Calcium Magnesium Heparin Dep Plt Ab OD Hep-Induced Plt Ab Nina 01/15/22 01/15/22 01/15/22 03:40 06:10 06:10 WBC 13.2 H RBC 3.76 L Hgb 10.9 L Hct 33.0 L MCV 87.8 MCH 29.0 MCHC 33.0 RDW 13.2 Plt Count 223 D MPV 9.2 L Absolute Nucleated RBC 0.000 Nucleated RBC % (auto) 0.0 PT 20.7 H INR 1.8 H APTT aPTT Heparin Protocol 48.7 L LA PTT Screen LA Thrombin Time dRVV Screen dRVVT Confirm Interp dRVVT Mix Interpret Lupus Anticoag Interp Hep-Ind Thrombocytop Com Sodium Potassium Chloride Carbon Dioxide Anion Gap BUN Creatinine Estim Creat Clear Calc Estimated GFR Random Glucose Fasting Glucose Calcium Magnesium Heparin Dep Plt Ab OD Hep-Induced Plt Ab Nina 01/15/22 01/15/22 01/15/22 06:10 06:10 09:39 WBC RBC Hgb Hct MCV MCH MCHC RDW Plt Count MPV Absolute Nucleated RBC Nucleated RBC % (auto) PT INR APTT aPTT Heparin Protocol 53.4 60.5 LA PTT Screen LA Thrombin Time dRVV Screen dRVVT Confirm Interp dRVVT Mix Interpret Lupus Anticoag Interp Hep-Ind Thrombocytop Com Sodium 135 Potassium 3.9 Chloride 103 Carbon Dioxide 26 Anion Gap 10 L BUN 22 H Creatinine 0.78 Estim Creat Clear Calc 78.7 Estimated GFR > 60 Random Glucose Fasting Glucose 84 Calcium 8.3 L Magnesium 2.1 Heparin Dep Plt Ab OD Hep-Induced Plt Ab Nina 01/15/22 12:50 WBC RBC Hgb Hct MCV MCH MCHC RDW Plt Count MPV Absolute Nucleated RBC Nucleated RBC % (auto) PT INR APTT aPTT Heparin Protocol 63.7 LA PTT Screen LA Thrombin Time dRVV Screen dRVVT Confirm Interp dRVVT Mix Interpret Lupus Anticoag Interp Hep-Ind Thrombocytop Com Sodium Potassium Chloride Carbon Dioxide Anion Gap BUN Creatinine Estim Creat Clear Calc Estimated GFR Random Glucose Fasting Glucose Calcium Magnesium Heparin Dep Plt Ab OD Hep-Induced Plt Ab Nina Assessment and Plan (1) Acute pulmonary embolism with acute cor pulmonale: Status: Acute (2) Wide-complex tachycardia: Status: Acute Plan [age] year gentleman who is currently in the intensive care unit and recovering from recent cardiac arrest due to massive pulmonary embolism. He has been noticed to have runs of wide complex tachycardia on telemetry. Reviewing the telemetry it appears that the wide complex tachycardia converted to narrow complex tachycardia at the same heart rate. He did not have any symptoms during these episodes. With acute cor pulmonale due to massive pulmonary embolism ventricular arrhythmia are possible but I think this is likely SVT with aberrancy. In any case initial treatment is beta-blockade. He did not have sustained VT or arrhythmia to warrant any shocks or treatment. We will see how he responds to beta-jocelyn. Please monitor potassium and magnesium closely and keep potassium close to 4.5 and magnesium close to 2. Thank you for allowing me to participate in the care of your patient. Please feel free to contact me if you have any questions. Procedures Date of Service Date of Service: 01/15/22
[2022-01-15 16:43] LABS: PTT Heparin Drip 55.8 SEC (53-77.9)
[2022-01-15] MEDS: Argatroban 250 MG in 0.9 % Sodium Chloride 250 ML 6.16 MG IV (17:47)
[2022-01-15] MEDS: Warfarin Sodium 5 MG TABLET PO (17:49)
[2022-01-15 19:27] LABS: PTT Heparin Drip 61.5 SEC (53-77.9)
[2022-01-15 22:34] LABS: PTT Heparin Drip 61.4 SEC (53-77.9)
[2022-01-16] VITALS (10 sets, daily range): BP systolic 82–150; BP diastolic 56–102; PULSE 70–89; RESP 14–18; TEMP 36.2–37.2; O2SAT 89–93
[2022-01-16 01:19] LABS: PTT Heparin Drip 63.1 SEC (53-77.9)
[2022-01-16 04:08] LABS: Hemoglobin 11.9 g/dl (14.0-18.0); Mean Corpuscular Hemoglobin 29.6 pg (27.0-33.0); Mean Corpuscular Volume 87.1 fL (80.0-98.0); Mean Platelet Volume 9.2 fL (9.4-12.4); Platelet Count 267 X10*3/uL (160-400); Red Blood Count 4.02 X10*6/uL (4.60-5.80); Red Cell Distribution Width 13.4 % (11.0-16.0); White Blood Count 17.4 X10*3/uL (4.8-10.8)
[2022-01-16 04:15] LABS: Prothrombin Time 23.3 SEC (10.0-13.1)
[2022-01-16 04:17] LABS: PTT Heparin Drip 63.8 SEC (53-77.9)
[2022-01-16 04:36] LABS: Anion Gap 11 (12-20); Blood Urea Nitrogen 26 mg/dL (9-16); Calcium 8.5 mg/dL (8.4-10.2); Carbon Dioxide 25 mmol/L (22-29); Chloride 104 mmol/L (96-108); Creatinine Clr Calc Pharmacy 73.1; Estimated Glomerular Filt Rate > 60; Glucose Fasting 89 mg/dL (60-99); Potassium 4.2 mmol/L (3.3-5.1); Sodium 136 mmol/L (135-145)
[2022-01-16] MEDS: Albuterol/Iprat 2.5/0.5MG 3 ML AMPUL.NEB INHALE ×2 (07:34→11:08)
[2022-01-16] MEDS: predniSONE 20 MG TABLET 40 MG PO (09:59)
[2022-01-16] MEDS: Metoprolol Tartrate 25 MG TABLET PO (09:59)
[2022-01-16] MEDS: Docusate Sodium 100 MG CAPSULE PO (09:59)
--- NOTE | 2022-01-16 10:04 | MHC.CLN ---
F/U VARIABLE PO INTAKE DIET RX: CARDIAC-APPROPRIATE PT RECEIVING ENSURE BID PROVIDES 700KCALS, 40G PROTEIN TO PROMOTE WOUND HEALING CONTINUE TO MONITOR PO INTAKE CLOSELY
[2022-01-16 10:37] LABS: PTT Heparin Drip 61.7 SEC (53-77.9)
--- NOTE | 2022-01-16 11:21 | MHC.CM.PN ---
Per ROUNDS discussion, Patient will not likely be medically cleared for dc until next week, r/t IV Argatrobin,Coumadin, required IV fentanyl yesterday/pain. PT recommends STR and [facility] is following.
--- NOTE | 2022-01-16 12:13 | P.PNIM_ITS ---
Subjective Subjective Date of Service: 01/16/22 Interval History: cc: leg pain interval history:diffuse pain, nausea, weakness, overall improved Cardiovascular Cardiovascular: Reports no additional cardiovascular complaints Respiratory Respiratory: Reports no additional respiratory complaints Physical Exam Vital Signs: Vital Signs: Last Vital Signs Temp 97.1 F 01/16/22 11:02 Pulse 83 01/16/22 11:09 Resp 18 01/16/22 11:09 BP 82/63 L 01/16/22 11:02 Pulse Ox 92 01/16/22 11:02 O2 Del Method 01/16/22 11:02 O2 Flow Rate 2 01/15/22 20:00 FiO2 40 01/11/22 13:07 Oxygen Flow Rate 2 12/29/21 13:00 BMI result Body Mass Index 27.3 GENERAL APPEARANCE: in no acute distress, pleasant. NECK: no carotid bruit, no jugular venous distention. Right IJ triple-lumen catheter. SKIN: no suspicious lesions, warm and dry. HEART: no murmurs, regular rate and rhythm. LUNGS: clear to auscultation bilaterally. ABDOMEN: soft, nontender. EXTREMITIES: no edema. PERIPHERAL PULSES: equal. NEUROLOGIC: No gross deficits, AAO X 3 Objective Data Active Medications Docusate Sodium (Docusate Sodium 100 Mg Capsule) 100 mg PO DAILY [facility] Last Admin: 01/16/22 09:59 Dose: 100 mg Documented By: COTEMA Fentanyl (Fentanyl Citrate/Pf 100 Mcg/2 Ml Vial) 25 mcg IVPUSH Q1H PRN; Protocol PRN Reason: severe pain Last Admin: 01/15/22 09:45 Dose: 25 mcg Documented By: ROOPA Fentanyl (Fentanyl 25 Mcg Patch.Td72) 25 mcg TRANSDERMA Q72H [facility] Last Admin: 01/15/22 12:52 Dose: 25 mcg Documented By: ROOPA Fluticasone/Vilanterol (Fluticasone/Vilanterol 100/25 Blst.W.Dev) 1 puff INHALE DAILY PRN PRN Reason: Shortness Of Breath Argatroban 250 mg/ Sodium (Chloride) 252.5 mls @ 12.315 mls/hr IV .[id number] [facility]; Protocol Last Infusion: 01/16/22 04:22 Dose: 1.4 mcg/kg/min, 6.16 mls/hr Documented By: ELIZABET Metoprolol Tartrate (Metoprolol Tartrate 25 Mg Tablet) 25 mg PO BID [facility]; Protocol Last Admin: 01/16/22 09:59 Dose: 25 mg Documented By: COTEMA Naloxone HCl (Naloxone Hcl 0.4 Mg/Ml Vial) 0.2 mg IVPUSH Q2M PRN PRN Reason: Excessive sedation or RR < 8 Omeprazole (Omeprazole 40 Mg Capsule.Dr) 40 mg PO DAILY@0630 [facility] Last Admin: 01/16/22 06:20 Dose: Not Given Documented By: ELIZABET Non-Admin Reason: Patient Refused Comments: pt refused and new allergy alert Oxycodone HCl (Oxycodone Hcl Immed Release 5 Mg Tablet) 5 mg PO Q4H PRN PRN Reason: moderate pain Last Admin: 01/15/22 17:50 Dose: 5 mg Documented By: ANJUM Pharmacy Consult (Consult Rx Perform Med Rec) 1 each MISCELLANE ONCE PRN PRN Reason: Consult order Prednisone (Prednisone 20 Mg Tablet) 40 mg PO DAILY [facility] Last Admin: 01/16/22 09:59 Dose: 40 mg Documented By: FLAVIOEMA Sodium Chloride (0.9 % Sodium Chloride Flush 3 Ml Syringe) 3 ml IVFLUSH QSHIFT [facility] Last Admin: 01/16/22 07:29 Dose: Not Given Documented By: NATHANIEL Non-Admin Reason: IV Running Warfarin Sodium (Warfarin Sodium 5 Mg Tablet) 5 mg PO DAILY@1800 [facility] Last Admin: 01/15/22 17:49 Dose: 5 mg Documented By: ANJUM Labs CBC & Chem 7: 01/16/22 04:02 01/16/22 04:02 Labs: Laboratory Results - last 24 hr 01/15/22 01/15/22 01/15/22 12:50 16:28 19:03 MCV MCH MCHC RDW Plt Count MPV Absolute Nucleated RBC Nucleated RBC % (auto) PT INR aPTT Heparin Protocol 63.7 55.8 61.5 Anion Gap Estim Creat Clear Calc Estimated GFR Fasting Glucose Calcium 01/15/22 01/16/22 01/16/22 22:05 00:56 04:02 MCV MCH MCHC RDW Plt Count MPV Absolute Nucleated RBC Nucleated RBC % (auto) PT 23.3 H INR 2.0 H aPTT Heparin Protocol 61.4 63.1 Anion Gap Estim Creat Clear Calc Estimated GFR Fasting Glucose Calcium 01/16/22 01/16/22 01/16/22 04:02 04:02 04:02 MCV 87.1 MCH 29.6 MCHC 34.0 RDW 13.4 Plt Count 267 MPV 9.2 L Absolute Nucleated RBC 0.000 Nucleated RBC % (auto) 0.0 PT INR aPTT Heparin Protocol 63.8 Anion Gap 11 L Estim Creat Clear Calc 73.1 Estimated GFR > 60 Fasting Glucose 89 Calcium 8.5 01/16/22 01/16/22 07:00 10:03 MCV MCH MCHC RDW Plt Count MPV Absolute Nucleated RBC Nucleated RBC % (auto) PT INR aPTT Heparin Protocol 64.0 61.7 Anion Gap Estim Creat Clear Calc Estimated GFR Fasting Glucose Calcium 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 presents to the hospital of complaints of worsening pain on his left lower leg Cardiac arrest 01/10/22 requiring intubation PEA/asystole, coded for 15 minutes with return of Rosc Secondary to massive bilateral pulmonary emboli with evidence of elevated right heart pressures and positive DVT in the left brachial vein, positive superficial thrombus in the left basilic and cephalic veins Had been maintained on subcutaneous heparin for DVT prophylaxis Physical therapy consultation 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, platelets now >150K, will start coumadin 5mg daily, aim for inr around 4 while still on argatroban for atleast 5 days, then can dc argatroban and aim for inr 2-3, today day 2/5 of bridge monitor cbc, inr Left arm swelling secondary to DVT Seen by vascular surgery rec no intervention at this time continue elevation monitor plan to disrupt bullae Nonhealing wound of left lower extremity Hx of Sjogren's likely contributing to pain management also Biopsy of the area showing soft tissue gangrenous necrosis, no osteomyelitis on CT s/p surgical debridement 01/02/22 Initially on IV antibiotics- vanco, zosyn switched to doxy/augmentin, completed course local wound care as per general surgery pain control an issue especially with dressing changes, had been slowly improving prior to Cardiac arrest Wound care every other day, premedicate wide complex tachyarrhtyhmia cardio eval now in sinus Cellulitis. Resolved blood cultures negative rheumatoid arthritis continue home medication as well as prednisone COPD, not in exacerbation continue home inhalers DEACON resolved Full code DISPO. to STR when medically stable reason for continued hospitalization: argatroban, close lab monitoring Quality Stroke Does the patient have a stroke diagnosis?: No VTE Prior VTE?: No VTE Risk Level:: Medical - moderate - high VTE Device Contraindication: Treatment Not Indicated VTE Drug Contraindication: N/A - Med Ordered
[2022-01-16 12:33] LABS: Beta-2 Glycoprotein IgA <2.0 U/mL (<20.0); Beta-2 Glycoprotein IgG <2.0 U/mL (<20.0); Beta-2 Glycoprotein IgM <2.0 U/mL (<20.0)
[2022-01-16 13:33] LABS: PTT Heparin Drip 62.2 SEC (53-77.9)
[2022-01-16] MEDS: Argatroban 250 MG in 0.9 % Sodium Chloride 250 ML 6.16 MG IV (13:33)
[2022-01-16] MEDS: HYDROmorphone HCl 1 MG/ML SYRINGE IVPUSH (13:33)
--- NOTE | 2022-01-16 15:09 | P.PNGS_ITS ---
Subjective Subjective Date of Service: 01/16/22 Interval history: He has no new complaints Transferred to [facility] [place] yesterday Physical Exam Vital Signs: Vital Signs: Last Vital Signs Temp 97.1 F 01/16/22 11:02 Pulse 83 01/16/22 11:09 Resp 18 01/16/22 11:09 BP 106/64 01/16/22 12:00 Pulse Ox 92 01/16/22 11:02 O2 Del Method 01/16/22 11:02 O2 Flow Rate 2 01/15/22 20:00 FiO2 40 01/11/22 13:07 Oxygen Flow Rate 2 12/29/21 13:00 BMI result Body Mass Index 27.3 Const: General: comfortable and no acute distress Cardio: Rate: regular rate Extrem: Other: Left leg ulcers x2 clean, good granulation, dressings changed with silver alginate Left arm wrist with edema and with multiple bullae; I drained this bowl a opening this using fine scissors. I covered this areas of the bully with Xeroform and wrapped the and forearm with gauze and Issac roll Objective Data Active Medications Docusate Sodium (Docusate Sodium 100 Mg Capsule) 100 mg PO DAILY [facility] Last Admin: 01/16/22 09:59 Dose: 100 mg Documented By: FLAVIOEMA Fentanyl (Fentanyl Citrate/Pf 100 Mcg/2 Ml Vial) 25 mcg IVPUSH Q1H PRN; Protocol PRN Reason: severe pain Last Admin: 01/15/22 09:45 Dose: 25 mcg Documented By: ROOPA Fentanyl (Fentanyl 25 Mcg Patch.Td72) 25 mcg TRANSDERMA Q72H [facility] Last Admin: 01/15/22 12:52 Dose: 25 mcg Documented By: ROOPA Fluticasone/Vilanterol (Fluticasone/Vilanterol 100/25 Blst.W.Dev) 1 puff INHALE DAILY PRN PRN Reason: Shortness Of Breath Argatroban 250 mg/ Sodium (Chloride) 252.5 mls @ 12.315 mls/hr IV .[id number] [facility]; Protocol Last Admin: 01/16/22 13:33 Dose: 1.4 mcg/kg/min, 6.16 mls/hr Documented By: FLAVIOEMA Metoprolol Tartrate (Metoprolol Tartrate 25 Mg Tablet) 25 mg PO BID [facility]; Protocol Last Admin: 01/16/22 09:59 Dose: 25 mg Documented By: FLAVIOEMA Naloxone HCl (Naloxone Hcl 0.4 Mg/Ml Vial) 0.2 mg IVPUSH Q2M PRN PRN Reason: Excessive sedation or RR < 8 Omeprazole (Omeprazole 40 Mg Capsule.Dr) 40 mg PO DAILY@0630 [facility] Last Admin: 01/16/22 06:20 Dose: Not Given Documented By: ELIZABET Non-Admin Reason: Patient Refused Comments: pt refused and new allergy alert Oxycodone HCl (Oxycodone Hcl Immed Release 5 Mg Tablet) 5 mg PO Q4H PRN PRN Reason: moderate pain Last Admin: 01/15/22 17:50 Dose: 5 mg Documented By: ANJUM Pharmacy Consult (Consult Rx Perform Med Rec) 1 each MISCELLANE ONCE PRN PRN Reason: Consult order Prednisone (Prednisone 20 Mg Tablet) 40 mg PO DAILY [facility] Last Admin: 01/16/22 09:59 Dose: 40 mg Documented By: NATHANIEL Sodium Chloride (0.9 % Sodium Chloride Flush 3 Ml Syringe) 3 ml IVFLUSH QSHIFT [facility] Last Admin: 01/16/22 07:29 Dose: Not Given Documented By: NATHANIEL Non-Admin Reason: IV Running Warfarin Sodium (Warfarin Sodium 5 Mg Tablet) 5 mg PO DAILY@1800 [facility] Last Admin: 01/15/22 17:49 Dose: 5 mg Documented By: ANJUM Labs CBC & Chem 7: 01/16/22 04:02 01/16/22 04:02 Labs: Laboratory Results - last 24 hr 01/10/22 01/15/22 01/15/22 13:11 16:28 19:03 MCV MCH MCHC RDW Plt Count MPV Absolute Nucleated RBC Nucleated RBC % (auto) PT INR aPTT Heparin Protocol 55.8 61.5 Anion Gap Estim Creat Clear Calc Estimated GFR Fasting Glucose Calcium Beta-2-GPI IgG Ab <2.0 Beta-2-GPI IgA Ab <2.0 Beta-2-GPI IgM Ab <2.0 01/15/22 01/16/22 01/16/22 22:05 00:56 04:02 MCV MCH MCHC RDW Plt Count MPV Absolute Nucleated RBC Nucleated RBC % (auto) PT 23.3 H INR 2.0 H aPTT Heparin Protocol 61.4 63.1 Anion Gap Estim Creat Clear Calc Estimated GFR Fasting Glucose Calcium Beta-2-GPI IgG Ab Beta-2-GPI IgA Ab Beta-2-GPI IgM Ab 01/16/22 01/16/22 01/16/22 04:02 04:02 04:02 MCV 87.1 MCH 29.6 MCHC 34.0 RDW 13.4 Plt Count 267 MPV 9.2 L Absolute Nucleated RBC 0.000 Nucleated RBC % (auto) 0.0 PT INR aPTT Heparin Protocol 63.8 Anion Gap 11 L Estim Creat Clear Calc 73.1 Estimated GFR > 60 Fasting Glucose 89 Calcium 8.5 Beta-2-GPI IgG Ab Beta-2-GPI IgA Ab Beta-2-GPI IgM Ab 01/16/22 01/16/22 01/16/22 07:00 10:03 13:03 MCV MCH MCHC RDW Plt Count MPV Absolute Nucleated RBC Nucleated RBC % (auto) PT INR aPTT Heparin Protocol 64.0 61.7 62.2 Anion Gap Estim Creat Clear Calc Estimated GFR Fasting Glucose Calcium Beta-2-GPI IgG Ab Beta-2-GPI IgA Ab Beta-2-GPI IgM Ab Procedures Date of Service Date of Service: 01/16/22 Progress Note: A&P Assessment and plan (1) Eschar of lower leg: Status: Acute Assessment and Plan: I had changed his dressings Has better tolerance to pain now with dressing changes Continue dressing changes every other day using silver alginate I also debrided will lay on his forearm and wrapped this with Kerlix as well Time Spent With Patient Time: Total time spent is greater than 50% in coordination of care (as documented) at patient's floor/unit and/or counseling patient: Quality Stroke Does the patient have a stroke diagnosis?: No VTE Prior VTE?: No VTE Risk Level:: Medical - moderate - high VTE Device Contraindication: Treatment Not Indicated VTE Drug Contraindication: N/A - Med Ordered
[2022-01-16 16:43] LABS: PTT Heparin Drip 64.7 SEC (53-77.9)
[2022-01-16] MEDS: Warfarin Sodium 5 MG TABLET PO (17:47)
[2022-01-16] MEDS: 0.9 % Sodium Chloride Flush 3 ML SYRINGE IVFLUSH (21:30)
[2022-01-16] MEDS: oxyCODONE HCl Immed Release 5 MG TABLET PO (21:44)
[2022-01-17] VITALS (7 sets, daily range): BP systolic 107–130; BP diastolic 67–83; PULSE 69–110; RESP 15–20; TEMP 36.5–37.2; O2SAT 90–99
[2022-01-17 08:27] LABS: Hematocrit 33.5 % (42.0-52.0); Hemoglobin 11.5 g/dl (14.0-18.0); Mean Corpuscular HGB Conc 34.3 g/dl (31.0-36.0); Mean Corpuscular Hemoglobin 30.2 pg (27.0-33.0); Mean Corpuscular Volume 87.9 fL (80.0-98.0); Mean Platelet Volume 9.3 fL (9.4-12.4); Platelet Count 328 X10*3/uL (160-400); Red Blood Count 3.81 X10*6/uL (4.60-5.80); Red Cell Distribution Width 13.7 % (11.0-16.0); White Blood Count 20.1 X10*3/uL (4.8-10.8)
[2022-01-17 08:28] LABS: INTERNATIONAL NORM RATIO 2.8 (0.9-1.1); Prothrombin Time 33.3 SEC (10.0-13.1)
[2022-01-17 08:31] LABS: PTT Heparin Drip 62.6 SEC (53-77.9)
[2022-01-17 08:53] LABS: Anion Gap 12 (12-20); Blood Urea Nitrogen 26 mg/dL (9-16); Calcium 8.9 mg/dL (8.4-10.2); Carbon Dioxide 25 mmol/L (22-29); Chloride 105 mmol/L (96-108); Creatinine Clr Calc Pharmacy 74.8; Estimated Glomerular Filt Rate > 60; Glucose Fasting 79 mg/dL (60-99); Potassium 4.3 mmol/L (3.3-5.1); Sodium 138 mmol/L (135-145)
[2022-01-17] MEDS: Metoprolol Tartrate 25 MG TABLET PO (10:06)
[2022-01-17] MEDS: 0.9 % Sodium Chloride Flush 3 ML SYRINGE IVFLUSH ×2 (10:06→16:10)
[2022-01-17] MEDS: predniSONE 20 MG TABLET 40 MG PO (10:06)
--- NOTE | 2022-01-17 10:13 | HO.PM.IMPN ---
Subjective Subjective Date of Service: 01/17/22 Interval History: cc: leg pain interval history:diffuse pain, nausea, weakness, overall improved Cardiovascular Cardiovascular: Reports no additional cardiovascular complaints Respiratory Respiratory: Reports no additional respiratory complaints Physical Exam Vital Signs: Vital Signs: Last Vital Signs Temp 98.6 F 01/17/22 08:00 Pulse 70 01/17/22 08:00 Resp 18 01/17/22 08:00 BP 125/75 01/17/22 08:00 Pulse Ox 98 01/17/22 08:00 O2 Del Method 01/17/22 08:00 O2 Flow Rate 2 01/15/22 20:00 FiO2 40 01/11/22 13:07 Oxygen Flow Rate 2 12/29/21 13:00 BMI result Body Mass Index 27.3 GENERAL APPEARANCE: in no acute distress, pleasant. NECK: no carotid bruit, no jugular venous distention. Right IJ triple-lumen catheter. SKIN: no suspicious lesions, warm and dry. HEART: no murmurs, regular rate and rhythm. LUNGS: clear to auscultation bilaterally. ABDOMEN: soft, nontender. EXTREMITIES: no edema. PERIPHERAL PULSES: equal. NEUROLOGIC: No gross deficits, AAO X 3 Objective Data Active Medications Docusate Sodium (Docusate Sodium 100 Mg Capsule) 100 mg PO DAILY [facility] Last Admin: 01/17/22 10:06 Dose: Not Given Documented By: SUSANA Non-Admin Reason: Patient Refused Fentanyl (Fentanyl Citrate/Pf 100 Mcg/2 Ml Vial) 25 mcg IVPUSH Q1H PRN; Protocol PRN Reason: severe pain Last Admin: 01/15/22 09:45 Dose: 25 mcg Documented By: ROOPA Fentanyl (Fentanyl 25 Mcg Patch.Td72) 25 mcg TRANSDERMA Q72H [facility] Last Admin: 01/15/22 12:52 Dose: 25 mcg Documented By: ROOPA Fluticasone/Vilanterol (Fluticasone/Vilanterol 100/25 Blst.W.Dev) 1 puff INHALE DAILY PRN PRN Reason: Shortness Of Breath Argatroban 250 mg/ Sodium (Chloride) 252.5 mls @ 12.315 mls/hr IV .[id number] [facility]; Protocol Last Admin: 01/17/22 10:07 Dose: Not Given Documented By: SUSANA Non-Admin Reason: IV Running Metoprolol Tartrate (Metoprolol Tartrate 25 Mg Tablet) 25 mg PO BID [facility]; Protocol Last Admin: 01/17/22 10:06 Dose: 25 mg Documented By: SUSANA Naloxone HCl (Naloxone Hcl 0.4 Mg/Ml Vial) 0.2 mg IVPUSH Q2M PRN PRN Reason: Excessive sedation or RR < 8 Omeprazole (Omeprazole 40 Mg Capsule.Dr) 40 mg PO DAILY@0630 [facility] Last Admin: 01/17/22 06:17 Dose: Not Given Documented By: IVANIA Non-Admin Reason: Patient Refused Oxycodone HCl (Oxycodone Hcl Immed Release 5 Mg Tablet) 5 mg PO Q4H PRN PRN Reason: moderate pain Last Admin: 01/16/22 21:44 Dose: 5 mg Documented By: IVANIA Pharmacy Consult (Consult Rx Perform Med Rec) 1 each MISCELLANE ONCE PRN PRN Reason: Consult order Prednisone (Prednisone 20 Mg Tablet) 40 mg PO DAILY [facility] Last Admin: 01/17/22 10:06 Dose: 40 mg Documented By: SUSANA Sodium Chloride (0.9 % Sodium Chloride Flush 3 Ml Syringe) 3 ml IVFLUSH QSHIFT [facility] Last Admin: 01/17/22 10:06 Dose: 3 ml Documented By: SUSANA Warfarin Sodium (Warfarin Sodium 5 Mg Tablet) 5 mg PO DAILY@1800 [facility] Last Admin: 01/16/22 17:47 Dose: 5 mg Documented By: NATHANIEL Labs CBC & Chem 7: 01/17/22 08:14 01/17/22 08:14 Labs: Laboratory Results - last 24 hr 01/10/22 01/10/22 01/16/22 13:11 13:11 10:03 MCV MCH MCHC RDW Plt Count MPV Absolute Nucleated RBC Nucleated RBC % (auto) PT INR aPTT Heparin Protocol 61.7 dRVVT Mixing Study TNP Hexagon Phase Neutraliz Positive A Anion Gap Estim Creat Clear Calc Estimated GFR Fasting Glucose Calcium Beta-2-GPI IgG Ab <2.0 Beta-2-GPI IgA Ab <2.0 Beta-2-GPI IgM Ab <2.0 01/16/22 01/16/22 01/17/22 13:03 16:09 08:14 MCV MCH MCHC RDW Plt Count MPV Absolute Nucleated RBC Nucleated RBC % (auto) PT 33.3 H INR 2.8 H aPTT Heparin Protocol 62.2 64.7 dRVVT Mixing Study Hexagon Phase Neutraliz Anion Gap Estim Creat Clear Calc Estimated GFR Fasting Glucose Calcium Beta-2-GPI IgG Ab Beta-2-GPI IgA Ab Beta-2-GPI IgM Ab 01/17/22 01/17/22 01/17/22 08:14 08:14 08:14 MCV 87.9 Cancelled MCH 30.2 Cancelled MCHC 34.3 Cancelled RDW 13.7 Cancelled Plt Count 328 Cancelled MPV 9.3 L Cancelled Absolute Nucleated RBC 0.000 Cancelled Nucleated RBC % (auto) 0.0 Cancelled PT INR aPTT Heparin Protocol dRVVT Mixing Study Hexagon Phase Neutraliz Anion Gap 12 Estim Creat Clear Calc 74.8 Estimated GFR > 60 Fasting Glucose 79 Calcium 8.9 Beta-2-GPI IgG Ab Beta-2-GPI IgA Ab Beta-2-GPI IgM Ab 01/17/22 08:14 MCV MCH MCHC RDW Plt Count MPV Absolute Nucleated RBC Nucleated RBC % (auto) PT INR aPTT Heparin Protocol 62.6 dRVVT Mixing Study Hexagon Phase Neutraliz Anion Gap Estim Creat Clear Calc Estimated GFR Fasting Glucose Calcium Beta-2-GPI IgG Ab Beta-2-GPI IgA Ab Beta-2-GPI IgM Ab 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 presents to the hospital of complaints of worsening pain on his left lower leg Cardiac arrest 01/10/22 requiring intubation PEA/asystole, coded for 15 minutes with return of Rosc Secondary to massive bilateral pulmonary emboli with evidence of elevated right heart pressures and positive DVT in the left brachial vein, positive superficial thrombus in the left basilic and cephalic veins Had been maintained on subcutaneous heparin for DVT prophylaxis Physical therapy consultation 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, platelets now >150K, started coumadin 5mg daily, aim for inr around 4 while still on argatroban for atleast 5 days, then can dc argatroban and aim for inr 2-3, today day 35 of bridge monitor cbc, inr Left arm swelling secondary to DVT s/p disruption of bullae continue elevation monitor Nonhealing wound of left lower extremity Hx of Sjogren's likely contributing to pain management also Biopsy of the area showing soft tissue gangrenous necrosis, no osteomyelitis on CT s/p surgical debridement 01/02/22 Initially on IV antibiotics- vanco, zosyn switched to doxy/augmentin, completed course local wound care as per general surgery pain control an issue especially with dressing changes, had been slowly improving prior to Cardiac arrest Wound care every other day, premedicate wide complex tachyarrhtyhmia cardio eval now in sinus Cellulitis. Resolved blood cultures negative rheumatoid arthritis continue home medication as well as prednisone COPD, not in exacerbation continue home inhalers DEACON resolved Full code DISPO. to STR when medically stable reason for continued hospitalization: argatroban, close lab monitoring Quality Stroke Does the patient have a stroke diagnosis?: No VTE Prior VTE?: No VTE Risk Level:: Medical - moderate - high VTE Device Contraindication: Treatment Not Indicated VTE Drug Contraindication: N/A - Med Ordered
--- NOTE | 2022-01-17 11:33 | PM.PNCARD ---
Subjective Subjective Date of Service: 01/17/22 Interval history: Telemetry has shown and other on of narrow complex tachycardia. His denying symptoms. He is more frustrated about his arm swelling and hand swelling. Having trouble with ADLs and frustrated. Physical Exam Vital Signs: Last Vital Signs Temp 98.6 F 01/17/22 08:00 Pulse 70 01/17/22 08:00 Resp 18 01/17/22 08:00 BP 125/75 01/17/22 08:00 Pulse Ox 98 01/17/22 08:00 O2 Del Method 01/17/22 08:00 O2 Flow Rate 2 01/15/22 20:00 FiO2 40 01/11/22 13:07 Oxygen Flow Rate 2 12/29/21 13:00 BMI result Body Mass Index 27.3 GENERAL APPEARANCE: in no acute distress, pleasant. NECK: no carotid bruit, no jugular venous distention. Right IJ triple-lumen catheter. SKIN: no suspicious lesions, warm and dry. HEART: no murmurs, regular rate and rhythm. LUNGS: clear to auscultation bilaterally. ABDOMEN: soft, nontender. EXTREMITIES: Left upper extremity dressed and edema from hand to elbow. PERIPHERAL PULSES: equal. NEUROLOGIC: No gross deficits, AAO X 3 Objective Labs and Meds Result diagrams: 01/17/22 08:14 01/17/22 08:14 Lab results: Laboratory Results - last 24 hr 01/10/22 01/10/22 01/16/22 13:11 13:11 13:03 WBC RBC Hgb Hct MCV MCH MCHC RDW Plt Count MPV Absolute Nucleated RBC Nucleated RBC % (auto) PT INR aPTT Heparin Protocol 62.2 dRVVT Mixing Study TNP Hexagon Phase Neutraliz Positive A Sodium Potassium Chloride Carbon Dioxide Anion Gap BUN Creatinine Estim Creat Clear Calc Estimated GFR Fasting Glucose Calcium Beta-2-GPI IgG Ab <2.0 Beta-2-GPI IgA Ab <2.0 Beta-2-GPI IgM Ab <2.0 01/16/22 01/17/22 01/17/22 16:09 08:14 08:14 WBC 20.1 H RBC 3.81 L Hgb 11.5 L Hct 33.5 L MCV 87.9 MCH 30.2 MCHC 34.3 RDW 13.7 Plt Count 328 MPV 9.3 L Absolute Nucleated RBC 0.000 Nucleated RBC % (auto) 0.0 PT 33.3 H INR 2.8 H aPTT Heparin Protocol 64.7 dRVVT Mixing Study Hexagon Phase Neutraliz Sodium Potassium Chloride Carbon Dioxide Anion Gap BUN Creatinine Estim Creat Clear Calc Estimated GFR Fasting Glucose Calcium Beta-2-GPI IgG Ab Beta-2-GPI IgA Ab Beta-2-GPI IgM Ab 01/17/22 01/17/22 01/17/22 08:14 08:14 08:14 WBC Cancelled RBC Cancelled Hgb Cancelled Hct Cancelled MCV Cancelled MCH Cancelled MCHC Cancelled RDW Cancelled Plt Count Cancelled MPV Cancelled Absolute Nucleated RBC Cancelled Nucleated RBC % (auto) Cancelled PT INR aPTT Heparin Protocol 62.6 dRVVT Mixing Study Hexagon Phase Neutraliz Sodium 138 Potassium 4.3 Chloride 105 Carbon Dioxide 25 Anion Gap 12 BUN 26 H Creatinine 0.82 Estim Creat Clear Calc 74.8 Estimated GFR > 60 Fasting Glucose 79 Calcium 8.9 Beta-2-GPI IgG Ab Beta-2-GPI IgA Ab Beta-2-GPI IgM Ab Progress Note: A&P Assessment and plan (1) Acute pulmonary embolism with acute cor pulmonale: Status: Acute (2) Wide-complex tachycardia: Status: Acute Plan [age] year gentleman who had acute pulmonary embolism and cardiac arrest with recovery and developed wide complex tachycardia which was thought to be SVT with aberrancy. He has runs of narrow complex tachycardia on telemetry. Again this is regular and supraventricular in origin. He has no symptoms. I am increasing the metoprolol to 50 mg twice a day. He has left arm is significantly swollen. I think he is struggling to keep the arm elevated with pillows. One possibility is to hang the arm to a sturdy IV pole. Thank you for allowing me to participate in the care of your patient. Please feel free to contact me if you have any questions. Time Spent With Patient Time: Total time spent is greater than 50% in coordination of care (as documented) at patient's floor/unit and/or counseling patient: Progress Note: Quality Stroke Does the patient have a stroke diagnosis?: No Procedures Date of Service Date of Service: 01/17/22
[2022-01-17] MEDS: Metoprolol Tartrate 5 MG/5 ML VIAL 2.5 MG IVPUSH (11:52)
[2022-01-17] MEDS: oxyCODONE HCl Immed Release 5 MG TABLET PO (14:46)
[2022-01-17] MEDS: Warfarin Sodium 5 MG TABLET PO (17:41)
[2022-01-17] MEDS: Metoprolol Tartrate 50 MG TABLET PO (19:49)
[2022-01-17] MEDS: Argatroban 250 MG in 0.9 % Sodium Chloride 250 ML 6.16 MG IV (22:30)
[2022-01-18] MEDS: 0.9 % Sodium Chloride Flush 3 ML SYRINGE IVFLUSH ×3 (00:24→21:57)
[2022-01-18] MEDS: oxyCODONE HCl Immed Release 5 MG TABLET PO ×4 (02:14→21:56)
--- NOTE | 2022-01-18 03:15 | MHC.PIE ---
P.PAIN I.PT C/O THROBBING TO LEFT ARM.ARM REMAINS SWOLLEN,REDDENED WITH BLISTERS PRESENT.HAD GIVEN OXYCODONE 5MG PO AT 0215.PT STATED IT DID NOT HELP MUCH.DR YEH NOTIFIED. STATES TO GIVE SECOND DOSE OF OXYCODONE 5MG PO NOW.PT UPDATED AND SECOND DOSE GIVEN. E.RESTING QUIETLY,CONT TO MONITOR.
[2022-01-18 03:55] VITALS: BP 134/80; PULSE 63; RESP 18; TEMP 36.8; O2SAT 94
[2022-01-18] MEDS: Omeprazole 40 MG CAPSULE.DR PO (06:13)
[2022-01-18 07:06] LABS: Hematocrit 33.1 % (42.0-52.0); Hemoglobin 10.9 g/dl (14.0-18.0); Mean Corpuscular HGB Conc 32.9 g/dl (31.0-36.0); Mean Corpuscular Hemoglobin 29.4 pg (27.0-33.0); Mean Corpuscular Volume 89.2 fL (80.0-98.0); Mean Platelet Volume 9.6 fL (9.4-12.4); Platelet Count 358 X10*3/uL (160-400); Red Blood Count 3.71 X10*6/uL (4.60-5.80); Red Cell Distribution Width 13.6 % (11.0-16.0); White Blood Count 16.2 X10*3/uL (4.8-10.8)
[2022-01-18 07:14] LABS: INTERNATIONAL NORM RATIO 3.4 (0.9-1.1); Prothrombin Time 41.6 SEC (10.0-13.1)
[2022-01-18 07:19] LABS: Anion Gap 11 (12-20); Blood Urea Nitrogen 25 mg/dL (9-16); Calcium 8.9 mg/dL (8.4-10.2); Carbon Dioxide 25 mmol/L (22-29); Chloride 105 mmol/L (96-108); Creatinine Clr Calc Pharmacy 78.7; Estimated Glomerular Filt Rate > 60; Glucose Fasting 75 mg/dL (60-99); Potassium 4.6 mmol/L (3.3-5.1); Sodium 136 mmol/L (135-145)
[2022-01-18 07:49] VITALS: BP 136/80; PULSE 64; RESP 20; TEMP 36.9; O2SAT 95
--- NOTE | 2022-01-18 09:27 | P.PNIM_ITS ---
Subjective Subjective Date of Service: 01/18/22 Interval History: cc: leg pain interval history:diffuse pain, nausea, weakness, overall improved Cardiovascular Cardiovascular: Reports no additional cardiovascular complaints Respiratory Respiratory: Reports no additional respiratory complaints Physical Exam Vital Signs: Vital Signs: Last Vital Signs Temp 98.4 F 01/18/22 07:49 Pulse 64 01/18/22 07:49 Resp 20 01/18/22 07:49 BP 136/80 01/18/22 07:49 Pulse Ox 95 01/18/22 07:49 O2 Del Method 01/18/22 07:49 O2 Flow Rate 2 01/15/22 20:00 FiO2 40 01/11/22 13:07 Oxygen Flow Rate 2 12/29/21 13:00 BMI result Body Mass Index 27.3 GENERAL APPEARANCE: in no acute distress, pleasant. NECK: no carotid bruit, no jugular venous distention. Right IJ triple-lumen catheter. SKIN: no suspicious lesions, warm and dry. HEART: no murmurs, regular rate and rhythm. LUNGS: clear to auscultation bilaterally. ABDOMEN: soft, nontender. EXTREMITIES: Left upper extremity dressed and edema from hand to elbow. PERIPHERAL PULSES: equal. NEUROLOGIC: No gross deficits, AAO X 3 Objective Data Active Medications Docusate Sodium (Docusate Sodium 100 Mg Capsule) 100 mg PO DAILY [facility] Last Admin: 01/17/22 10:06 Dose: Not Given Documented By: SUSANA Non-Admin Reason: Patient Refused Fentanyl (Fentanyl Citrate/Pf 100 Mcg/2 Ml Vial) 25 mcg IVPUSH Q1H PRN; Protocol PRN Reason: severe pain Last Admin: 01/15/22 09:45 Dose: 25 mcg Documented By: ROOPA Fentanyl (Fentanyl 25 Mcg Patch.Td72) 25 mcg TRANSDERMA Q72H [facility] Last Admin: 01/15/22 12:52 Dose: 25 mcg Documented By: ROOPA Fluticasone/Vilanterol (Fluticasone/Vilanterol 100/25 Blst.W.Dev) 1 puff INHALE DAILY PRN PRN Reason: Shortness Of Breath Argatroban 250 mg/ Sodium (Chloride) 252.5 mls @ 12.315 mls/hr IV .[id number] [facility]; Protocol Last Admin: 01/17/22 22:30 Dose: 1.4 mcg/kg/min, 6.16 mls/hr Documented By: BAKARI Metoprolol Tartrate (Metoprolol Tartrate 50 Mg Tablet) 50 mg PO BID [facility]; Protocol Last Admin: 01/17/22 19:49 Dose: 50 mg Documented By: POLI Naloxone HCl (Naloxone Hcl 0.4 Mg/Ml Vial) 0.2 mg IVPUSH Q2M PRN PRN Reason: Excessive sedation or RR < 8 Omeprazole (Omeprazole 40 Mg Capsule.) 40 mg PO DAILY@0630 [facility] Last Admin: 01/18/22 06:13 Dose: 40 mg Documented By: REMIGIO Oxycodone HCl (Oxycodone Hcl Immed Release 5 Mg Tablet) 5 mg PO Q4H PRN PRN Reason: moderate pain Last Admin: 01/18/22 03:27 Dose: 5 mg Documented By: REMIGIO Pharmacy Consult (Consult Rx Perform Med Rec) 1 each MISCELLANE ONCE PRN PRN Reason: Consult order Prednisone (Prednisone 20 Mg Tablet) 40 mg PO DAILY [facility] Last Admin: 01/17/22 10:06 Dose: 40 mg Documented By: SUSANA Sodium Chloride (0.9 % Sodium Chloride Flush 3 Ml Syringe) 3 ml IVFLUSH QSHIFT [facility] Last Admin: 01/18/22 00:24 Dose: 3 ml Documented By: REMIGIO Warfarin Sodium (Warfarin Sodium 5 Mg Tablet) 5 mg PO DAILY@1800 [facility] Last Admin: 01/17/22 17:41 Dose: 5 mg Documented By: SUSANA Labs CBC & Chem 7: 01/18/22 06:21 01/18/22 06:21 Labs: Laboratory Results - last 24 hr 01/18/22 01/18/22 01/18/22 06:21 06:21 06:21 MCV 89.2 MCH 29.4 MCHC 32.9 RDW 13.6 Plt Count 358 MPV 9.6 Absolute Nucleated RBC 0.000 Nucleated RBC % (auto) 0.0 PT 41.6 H INR 3.4 H Anion Gap 11 L Estim Creat Clear Calc 78.7 Estimated GFR > 60 Fasting Glucose 75 Calcium 8.9 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 presents to the hospital of complaints of worsening pain on his left lower leg Cardiac arrest 01/10/22 requiring intubation PEA/asystole, coded for 15 minutes with return of Rosc Secondary to massive bilateral pulmonary emboli with evidence of elevated right heart pressures and positive DVT in the left brachial vein, positive superficial thrombus in the left basilic and cephalic veins Had been maintained on subcutaneous heparin for DVT prophylaxis Physical therapy consultation 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, platelets now >150K, started coumadin 5mg daily, aim for inr around 4 while still on argatroban for atleast 5 days, then can dc argatroban and aim for inr 2-3, today day 4/ of bridge monitor cbc, inr Left arm swelling secondary to DVT s/p disruption of bullae continue elevation monitor Nonhealing wound of left lower extremity Hx of Sjogren's likely contributing to pain management also Biopsy of the area showing soft tissue gangrenous necrosis, no osteomyelitis on CT s/p surgical debridement 01/02/22 Initially on IV antibiotics- vanco, zosyn switched to doxy/augmentin, completed course local wound care as per general surgery pain control an issue especially with dressing changes, had been slowly improv ing prior to Cardiac arrest Wound care every other day, premedicate wide complex tachyarrhtyhmia cardio eval now in sinus Cellulitis. Resolved blood cultures negative rheumatoid arthritis continue home medication as well as prednisone COPD, not in exacerbation continue home inhalers DEACON resolved Full code DISPO. to STR when medically stable reason for continued hospitalization: argatroban, close lab monitoring Quality Stroke Does the patient have a stroke diagnosis?: No VTE Prior VTE?: No VTE Risk Level:: Medical - moderate - high VTE Device Contraindication: Treatment Not Indicated VTE Drug Contraindication: N/A - Med Ordered
[2022-01-18] MEDS: fentaNYL 25 MCG PATCH.TD72 TRANSDERMA (10:01)
[2022-01-18] MEDS: Docusate Sodium 100 MG CAPSULE PO (10:01)
[2022-01-18] MEDS: Metoprolol Tartrate 50 MG TABLET PO ×2 (10:01→21:56)
[2022-01-18] MEDS: predniSONE 20 MG TABLET 40 MG PO (10:02)
[2022-01-18 11:13] VITALS: BP 117/73; PULSE 61; RESP 20; TEMP 36.6; O2SAT 92
[2022-01-18] MEDS: Argatroban 250 MG in 0.9 % Sodium Chloride 250 ML 6.16 MG IV (11:14)
[2022-01-18 11:45] LABS: PTT Heparin Drip 73.2 SEC (53-77.9)
[2022-01-18 15:58] VITALS: BP 100/64; PULSE 66; RESP 17; TEMP 36.4; O2SAT 92
[2022-01-18] MEDS: Warfarin Sodium 5 MG TABLET PO (18:05)
--- NOTE | 2022-01-18 18:12 | PC.NURSE ---
Patient was due for dsg change today per Mds order, Patient refused stating he wants Dr. Cedeno to do the dsg change.
[2022-01-18 20:00] VITALS: BP 113/69; PULSE 76; RESP 18; TEMP 36.8; O2SAT 93
[2022-01-18 23:51] VITALS: BP 134/76; PULSE 66; RESP 16; TEMP 36.7; O2SAT 98
[2022-01-19] VITALS (9 sets, daily range): BP systolic 107–141; BP diastolic 51–83; PULSE 54–85; RESP 15–20; TEMP 36.1–36.8; O2SAT 92–99
[2022-01-19] MEDS: oxyCODONE HCl Immed Release 5 MG TABLET PO ×4 (02:13→17:08)
[2022-01-19] MEDS: Docusate Sodium 100 MG CAPSULE PO (07:37)
[2022-01-19] MEDS: Metoprolol Tartrate 50 MG TABLET PO ×2 (07:37→22:09)
[2022-01-19] MEDS: Omeprazole 40 MG CAPSULE.DR PO (07:37)
[2022-01-19] MEDS: 0.9 % Sodium Chloride Flush 3 ML SYRINGE IVFLUSH ×3 (07:37→22:09)
[2022-01-19] MEDS: predniSONE 20 MG TABLET 40 MG PO (07:37)
[2022-01-19 08:57] LABS: Hemoglobin 10.9 g/dl (14.0-18.0); Mean Corpuscular Hemoglobin 29.5 pg (27.0-33.0); Mean Corpuscular Volume 89.2 fL (80.0-98.0); Mean Platelet Volume 9.4 fL (9.4-12.4); Platelet Count 361 X10*3/uL (160-400); Red Cell Distribution Width 13.8 % (11.0-16.0); White Blood Count 13.3 X10*3/uL (4.8-10.8)
[2022-01-19 09:04] LABS: INTERNATIONAL NORM RATIO 4.9 (0.9-1.1); Prothrombin Time 59.9 SEC (10.0-13.1)
[2022-01-19 09:06] LABS: PTT Heparin Drip 74.4 SEC (53-77.9)
--- NOTE | 2022-01-19 09:10 | HO.PM.IMPN ---
Subjective Subjective Date of Service: 01/19/22 Review of Systems Follow up leg wounds, cardiac arrest, PE states that he is very depressed still with pain to his legs and left arm Physical Exam Vital Signs: Vital Signs: Last Vital Signs Temp 97.8 F 01/19/22 08:00 Pulse 61 01/19/22 08:00 Resp 20 01/19/22 08:00 BP 135/83 01/19/22 08:00 Pulse Ox 92 01/19/22 08:00 O2 Del Method 01/19/22 08:00 O2 Flow Rate 2 01/15/22 20:00 FiO2 40 01/11/22 13:07 Oxygen Flow Rate 2 12/29/21 13:00 BMI result Body Mass Index 27.3 Appearing in no acute distress lung sounds are clear to auscultation heart regular rate rhythm, clear S1, S2 positive bowel sounds, abdomen is soft, nontender neuro patient is alert x3, no focal deficits Left hand wrapped in gauze Left LE with dressing intact Objective Data Active Medications Docusate Sodium (Docusate Sodium 100 Mg Capsule) 100 mg PO DAILY [facility] Last Admin: 01/19/22 07:37 Dose: 100 mg Documented By: VALERIE Fentanyl (Fentanyl Citrate/Pf 100 Mcg/2 Ml Vial) 25 mcg IVPUSH Q1H PRN; Protocol PRN Reason: severe pain Last Admin: 01/15/22 09:45 Dose: 25 mcg Documented By: ROOPA Fentanyl (Fentanyl 25 Mcg Patch.Td72) 25 mcg TRANSDERMA Q72H [facility] Last Admin: 01/18/22 10:01 Dose: 25 mcg Documented By: ANN Fentanyl (Fentanyl 12 Mcg Patch.Td72) 12 mcg TRANSDERMA Q72H [facility] Last Admin: 01/18/22 13:26 Dose: Not Given Documented By: ANN Non-Admin Reason: Patient Refused Fluticasone/Vilanterol (Fluticasone/Vilanterol 100/25 Blst.W.Dev) 1 puff INHALE DAILY PRN PRN Reason: Shortness Of Breath Argatroban 250 mg/ Sodium (Chloride) 252.5 mls @ 12.315 mls/hr IV .[id number] [facility]; Protocol Last Admin: 01/19/22 04:11 Dose: Not Given Documented By: JOE Non-Admin Reason: IV Running Metoprolol Tartrate (Metoprolol Tartrate 50 Mg Tablet) 50 mg PO BID [facility]; Protocol Last Admin: 01/19/22 07:37 Dose: 50 mg Documented By: VALERIE Naloxone HCl (Naloxone Hcl 0.4 Mg/Ml Vial) 0.2 mg IVPUSH Q2M PRN PRN Reason: Excessive sedation or RR < 8 Omeprazole (Omeprazole 40 Mg Capsule.Dr) 40 mg PO DAILY@0630 [facility] Last Admin: 01/19/22 07:37 Dose: 40 mg Documented By: VALERIE Oxycodone HCl (Oxycodone Hcl Immed Release 5 Mg Tablet) 5 mg PO Q4H PRN PRN Reason: moderate pain Last Admin: 01/19/22 08:16 Dose: 5 mg Documented By: VALERIE Pharmacy Consult (Consult Rx Perform Med Rec) 1 each MISCELLANE ONCE PRN PRN Reason: Consult order Prednisone (Prednisone 20 Mg Tablet) 40 mg PO DAILY [facility] Last Admin: 01/19/22 07:37 Dose: 40 mg Documented By: VALERIE Sodium Chloride (0.9 % Sodium Chloride Flush 3 Ml Syringe) 3 ml IVFLUSH QSHIFT [facility] Last Admin: 01/19/22 07:37 Dose: 3 ml Documented By: VALERIE Warfarin Sodium (Warfarin Sodium 5 Mg Tablet) 5 mg PO DAILY@1800 [facility] Last Admin: 01/18/22 18:05 Dose: 5 mg Documented By: JONATHAN Labs CBC & Chem 7: 01/19/22 08:14 01/18/22 06:21 Labs: Laboratory Results - last 24 hr 01/18/22 01/19/22 01/19/22 11:26 08:14 08:14 MCV 89.2 MCH 29.5 MCHC 33.0 RDW 13.8 Plt Count 361 MPV 9.4 Absolute Nucleated RBC 0.000 Nucleated RBC % (auto) 0.0 PT 59.9 H INR 4.9 H aPTT Heparin Protocol 73.2 01/19/22 08:14 MCV MCH MCHC RDW Plt Count MPV Absolute Nucleated RBC Nucleated RBC % (auto) PT INR aPTT Heparin Protocol 74.4 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 presents to the hospital of complaints of worsening pain on his left lower leg Depression after cardiac arrest Will consult CARE team for guidance Cardiac arrest 01/10/22 requiring intubation PEA/asystole, coded for 15 minutes with return of Rosc Secondary to massive bilateral pulmonary emboli with evidence of elevated right heart pressures and positive DVT in the left brachial vein, positive superficial thrombus in the left basilic and cephalic veins Had been maintained on subcutaneous heparin for DVT prophylaxis Physical therapy following 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, started coumadin 5mg daily, aiming for inr around 4 while still on argatroban for at least 5 days, INR now 4.9, will stop Argatroban continue warfarin with INR goal 2-3 monitor cbc, inr daily Left arm swelling secondary to DVT s/p disruption of bullae continue elevation monitor Nonhealing wound of left lower extremity Hx of Sjogren's likely contributing to pain management also Biopsy of the area showing soft tissue gangrenous necrosis, no osteomyelitis on CT s/p surgical debridement 01/02/22 Initially on IV antibiotics- vanco, zosyn switched to doxy/augmentin, completed course local wound care pain control an issue especially with dressing changes, had been slowly improving prior to Cardiac arrest Wound care every other day, premedicate Dressing changes every other day with silver alginate wide complex tachyarrhtyhmia cardio eval now in sinus Cellulitis. Resolved blood cultures negative rheumatoid arthritis continue home medication as well as prednisone COPD, not in exacerbation continue home inhalers DEACON resolved Full code DISPO. to STR when medically stable Attending Dr. Silver reason for continued hospitalization: Now bridged to warfarin. Continue to require IV pain medications for dressing changes Quality Stroke Does the patient have a stroke diagnosis?: No VTE Prior VTE?: No VTE Risk Level:: Medical - moderate - high VTE Device Contraindication: Treatment Not Indicated VTE Drug Contraindication: N/A - Med Ordered
[2022-01-19 09:30] LABS: Anion Gap 11 (12-20); Blood Urea Nitrogen 18 mg/dL (9-16); Calcium 8.6 mg/dL (8.4-10.2); Carbon Dioxide 26 mmol/L (22-29); Chloride 105 mmol/L (96-108); Creatinine Clr Calc Pharmacy 73.9; Estimated Glomerular Filt Rate > 60; Glucose Fasting 75 mg/dL (60-99); Potassium 4.5 mmol/L (3.3-5.1); Sodium 137 mmol/L (135-145)
--- NOTE | 2022-01-19 11:38 | MHC.CM.PN ---
Per ROUNDS discussion, Patient is not yet medically cleared for dc R/T slow recovery,less IV pain management required, pending Care Team Consult r/t s/s of severe Depression; PT is recommending STR and [facility] is following.
--- NOTE | 2022-01-19 11:49 | MHC.CLN ---
F/U PO INTAKE IMPROVED 75-100% DIET RX: CARDIAC-APPROPRIATE PT RECEIVING ENSURE BID PROVIDES 700KCALS, 40G PROTEIN TO PROMOTE WOUND HEALING CONTINUE TO MONITOR PO INTAKE CLOSELY
[2022-01-19] MEDS: fentaNYL citrate/PF 100 MCG/2 ML VIAL 25 MCG IVPUSH ×2 (13:05→17:07)
--- NOTE | 2022-01-19 14:29 | P.PNGS_ITS ---
Subjective Subjective Date of Service: 01/19/22 Interval history: a little depressed no new complaints Physical Exam Vital Signs: Vital Signs: Last Vital Signs Temp 98.1 F 01/19/22 12:00 Pulse 66 01/19/22 12:00 Resp 20 01/19/22 12:00 BP 109/69 01/19/22 12:00 Pulse Ox 92 01/19/22 12:00 O2 Del Method 01/19/22 12:00 O2 Flow Rate 2 01/15/22 20:00 FiO2 40 01/11/22 13:07 Oxygen Flow Rate 2 12/29/21 13:00 BMI result Body Mass Index 27.3 Const: General: comfortable and no acute distress GI: Palpation (GI): Soft to palpation, not firm and nontender Extrem: Other: left leg wounds clean, granulating well, edema seems resolved left forearm/wrist - with some bullous skin changes, also seen on fingers edema stil present Objective Data Active Medications Docusate Sodium (Docusate Sodium 100 Mg Capsule) 100 mg PO DAILY [facility] Last Admin: 01/19/22 07:37 Dose: 100 mg Documented By: VALERIE Fentanyl (Fentanyl Citrate/Pf 100 Mcg/2 Ml Vial) 25 mcg IVPUSH Q1H PRN; Protoc ol PRN Reason: severe pain Last Admin: 01/19/22 13:05 Dose: 25 mcg Documented By: VALERIE Fentanyl (Fentanyl 25 Mcg Patch.Td72) 25 mcg TRANSDERMA Q72H [facility] Last Admin: 01/18/22 10:01 Dose: 25 mcg Documented By: DOBROB Fentanyl (Fentanyl 12 Mcg Patch.Td72) 12 mcg TRANSDERMA Q72H [facility] Last Admin: 01/18/22 13:26 Dose: Not Given Documented By: ANN Non-Admin Reason: Patient Refused Fluticasone/Vilanterol (Fluticasone/Vilanterol 100/25 Blst.W.Dev) 1 puff INHALE DAILY PRN PRN Reason: Shortness Of Breath Metoprolol Tartrate (Metoprolol Tartrate 50 Mg Tablet) 50 mg PO BID [facility]; Protocol Last Admin: 01/19/22 07:37 Dose: 50 mg Documented By: VALERIE Naloxone HCl (Naloxone Hcl 0.4 Mg/Ml Vial) 0.2 mg IVPUSH Q2M PRN PRN Reason: Excessive sedation or RR < 8 Omeprazole (Omeprazole 40 Mg Capsule.Dr) 40 mg PO DAILY@0630 [facility] Last Admin: 01/19/22 07:37 Dose: 40 mg Documented By: VALERIE Oxycodone HCl (Oxycodone Hcl Immed Release 5 Mg Tablet) 5 mg PO Q4H PRN PRN Reason: moderate pain Last Admin: 01/19/22 13:04 Dose: 5 mg Documented By: VALERIE Pharmacy Consult (Consult Rx Perform Med Rec) 1 each MISCELLANE ONCE PRN PRN Reason: Consult order Prednisone (Prednisone 20 Mg Tablet) 40 mg PO DAILY [facility] Last Admin: 01/19/22 07:37 Dose: 40 mg Documented By: VALERIE Sodium Chloride (0.9 % Sodium Chloride Flush 3 Ml Syringe) 3 ml IVFLUSH QSHIFT [facility] Last Admin: 01/19/22 07:37 Dose: 3 ml Documented By: VALERIE Warfarin Sodium (Warfarin Sodium 5 Mg Tablet) 5 mg PO DAILY@1800 [facility] Last Admin: 01/18/22 18:05 Dose: 5 mg Documented By: JONATHAN Labs CBC & Chem 7: 01/19/22 08:14 01/19/22 08:14 Labs: Laboratory Results - last 24 hr 01/19/22 01/19/22 01/19/22 08:14 08:14 08:14 MCV 89.2 MCH 29.5 MCHC 33.0 RDW 13.8 Plt Count 361 MPV 9.4 Absolute Nucleated RBC 0.000 Nucleated RBC % (auto) 0.0 PT 59.9 H INR 4.9 H aPTT Heparin Protocol Anion Gap 11 L Estim Creat Clear Calc 73.9 Estimated GFR > 60 Fasting Glucose 75 Calcium 8.6 01/19/22 08:14 MCV MCH MCHC RDW Plt Count MPV Absolute Nucleated RBC Nucleated RBC % (auto) PT INR aPTT Heparin Protocol 74.4 Anion Gap Estim Creat Clear Calc Estimated GFR Fasting Glucose Calcium Procedures Date of Service Date of Service: 01/19/22 Progress Note: A&P Assessment and plan (1) Chronic ulcer of leg: Status: Acute Assessment and Plan: s/p debridement dressings changed silver alginate applied on leg wounds premedicated with Dilaudid 1 mg IV I also changed the dressings on the left forearm continue wound care - will do dressings change on Wednesday restart physical therapy Time Spent With Patient Time: Total time spent is greater than 50% in coordination of care (as documented) at patient's floor/unit and/or counseling patient: Quality Stroke Does the patient have a stroke diagnosis?: No VTE Prior VTE?: No VTE Risk Level:: Medical - moderate - high VTE Device Contraindication: Treatment Not Indicated VTE Drug Contraindication: N/A - Med Ordered
[2022-01-19] MEDS: Warfarin Sodium 5 MG TABLET PO (17:08)
[2022-01-20 03:03] VITALS: BP 112/71; PULSE 61; RESP 16; TEMP 36.9; O2SAT 95
[2022-01-20] MEDS: Omeprazole 40 MG CAPSULE.DR PO (05:39)
[2022-01-20] MEDS: oxyCODONE HCl Immed Release 5 MG TABLET PO (05:42)
[2022-01-20 06:47] LABS: INTERNATIONAL NORM RATIO 4.1 (0.9-1.1); Prothrombin Time 49.7 SEC (10.0-13.1)
[2022-01-20 07:05] LABS: Hematocrit 31.4 % (42.0-52.0); Hemoglobin 10.3 g/dl (14.0-18.0); Mean Corpuscular HGB Conc 32.8 g/dl (31.0-36.0); Mean Corpuscular Hemoglobin 29.1 pg (27.0-33.0); Mean Corpuscular Volume 88.7 fL (80.0-98.0); Mean Platelet Volume 9.2 fL (9.4-12.4); Platelet Count 330 X10*3/uL (160-400); Red Blood Count 3.54 X10*6/uL (4.60-5.80); Red Cell Distribution Width 13.6 % (11.0-16.0); White Blood Count 10.9 X10*3/uL (4.8-10.8)
[2022-01-20 07:48] VITALS: BP 124/80; PULSE 63; RESP 20; TEMP 36.9; O2SAT 93
--- NOTE | 2022-01-20 08:36 | P.CDIC_ITS ---
CDI Concurrent Query Documentation Clarification: PHYSICIAN'S DOCUMENTATION REQUEST Date of Query: 01/20/22 0836 Patient Name: Sarath Rodriguez Admit Date: 12/22/21 Dear Doctor, A review of the medical record indicates additional documentation may be indicated. Please review below and update the documentation accordingly. Clinical Indicators: Risk Factors/Clinical Indicators/Treatments Wound care notes 01/15 - Deep tissue injury Bilateral buttocks. Barrier cream, leave open to air. Based on the above, could you please provide, in the Progress Notes, further information regarding the ulcer/wound: * If a pressure ulcer, please also include the stage* of the ulcer/DTI: Stages 1-4 or other * Stage 1 - Skin intact, non-blanchable redness * Stage 2 - Partial thickness loss of dermis, includes intact or open blister * Stage 3 - Full thickness tissue not including bone, tendon, or muscle * Stage 4 - Full thickness tissue loss, including exposed bones, tendon, or muscle * Unstageable * Suspected deep tissue injury - Purple or maroon localized area of discolored intact skin or blood-filled blister due to damage of underlying soft tissues from pressure and/or shear. The area may be preceded by tissue that is painful, firm, mushy, boggy, warmer, or cooler as compare to adjacent tissue. * Other * Unable to determine *Source: National Pressure Ulcer Advisory Panel (NPUAP) Use of terms such as suspected, likely, concern for, or probable (associated with a specific diagnosis that is being evaluated, monitored, or treated as if it exists) are acceptable and can be coded in the inpatient setting, when documented at the time of discharge. Thank you, Clair [place] [facility], CDIS Extension: [phone] Please use your independent medical judgment in providing your response. THIS QUERY IS PART OF THE PERMANENT MEDICAL RECORD
[2022-01-20] MEDS: HYDROmorphone HCl 1 MG/ML SYRINGE IVPUSH (09:42)
[2022-01-20] MEDS: predniSONE 20 MG TABLET 40 MG PO (09:45)
[2022-01-20] MEDS: Metoprolol Tartrate 50 MG TABLET PO ×2 (09:45→21:32)
[2022-01-20] MEDS: Docusate Sodium 100 MG CAPSULE PO (09:45)
[2022-01-20] MEDS: LORazepam 0.5 MG TABLET 0.25 MG PO (09:45)
[2022-01-20] MEDS: 0.9 % Sodium Chloride Flush 3 ML SYRINGE IVFLUSH (09:46)
[2022-01-20] MEDS: oxyCODONE HCl Immed Release 5 MG TABLET 10 MG PO (09:49)
--- NOTE | 2022-01-20 09:50 | PC.NURSE ---
Pt complaining of severe 10/10 pain to LLE. Pt crying out in pain and attempting to climb out of bed. 1mg IVP Dilaudid, 10mg PO Oxycodone, and 0.25mg PO ativan given per Aurora Puentes NP verbal orders. Pt in bed. Call crane in reach. Bed alarm on.
--- NOTE | 2022-01-20 10:30 | HO.PM.IMPN ---
Subjective Subjective Date of Service: 01/20/22 Review of Systems Follow up leg wounds, cardiac arrest, PE states that he is very depressed still with pain to his legs and left arm Physical Exam Vital Signs: Vital Signs: Last Vital Signs Temp 98.5 F 01/20/22 07:48 Pulse 63 01/20/22 07:48 Resp 20 01/20/22 07:48 BP 124/80 01/20/22 07:48 Pulse Ox 93 01/20/22 07:48 O2 Del Method 01/20/22 07:48 O2 Flow Rate 2 01/19/22 23:35 FiO2 40 01/11/22 13:07 Oxygen Flow Rate 2 12/29/21 13:00 BMI result Body Mass Index 27.3 Appearing in no acute distress, apprears to be mentally down lung sounds are clear to auscultation heart regular rate rhythm, clear S1, S2 positive bowel sounds, abdomen is soft, nontender neuro patient is alert x3, no focal deficits Objective Data Active Medications Docusate Sodium (Docusate Sodium 100 Mg Capsule) 100 mg PO DAILY [facility] Last Admin: 01/20/22 09:45 Dose: 100 mg Documented By: JUSTINO Fentanyl (Fentanyl 25 Mcg Patch.Td72) 25 mcg TRANSDERMA Q72H [facility] Last Admin: 01/18/22 10:01 Dose: 25 mcg Documented By: BROMady Fentanyl (Fentanyl 12 Mcg Patch.Td72) 12 mcg TRANSDERMA Q72H [facility] Last Admin: 01/18/22 13:26 Dose: Not Given Documented By: ANN Non-Admin Reason: Patient Refused Fluticasone/Vilanterol (Fluticasone/Vilanterol 100/25 Blst.W.Dev) 1 puff INHALE DAILY PRN PRN Reason: Shortness Of Breath Hydromorphone HCl (Hydromorphone Hcl 2 Mg Tablet) 3 mg PO Q6H PRN PRN Reason: Pain, Mild (Pain Scale 1-3) Lorazepam (Lorazepam 0.5 Mg Tablet) 0.25 mg PO Q6H PRN PRN Reason: anxiety Last Admin: 01/20/22 09:45 Dose: 0.25 mg Documented By: JUSTINO Metoprolol Tartrate (Metoprolol Tartrate 50 Mg Tablet) 50 mg PO BID [facility]; Protocol Last Admin: 01/20/22 09:45 Dose: 50 mg Documented By: JUSTINO Naloxone HCl (Naloxone Hcl 0.4 Mg/Ml Vial) 0.2 mg IVPUSH Q2M PRN PRN Reason: Excessive sedation or RR < 8 Omeprazole (Omeprazole 40 Mg Capsule.) 40 mg PO DAILY@0630 [facility] Last Admin: 01/20/22 05:39 Dose: 40 mg Documented By: TRENT Oxycodone HCl (Oxycodone Hcl Immed Release 5 Mg Tablet) 10 mg PO Q4H PRN PRN Reason: moderate pain Last Admin: 01/20/22 09:49 Dose: 10 mg Documented By: JUSTINO Pharmacy Consult (Consult Rx Perform Med Rec) 1 each MISCELLANE ONCE PRN PRN Reason: Consult order Prednisone (Prednisone 20 Mg Tablet) 40 mg PO DAILY [facility] Last Admin: 01/20/22 09:45 Dose: 40 mg Documented By: JUSTINO Sodium Chloride (0.9 % Sodium Chloride Flush 3 Ml Syringe) 3 ml IVFLUSH QSHIFT [facility] Last Admin: 01/20/22 09:46 Dose: 3 ml Documented By: JUSTINO Warfarin Sodium (Warfarin Sodium 5 Mg Tablet) 5 mg PO DAILY@1800 [facility] Last Admin: 01/19/22 17:08 Dose: 5 mg Documented By: VALERIE Labs CBC & Chem 7: 01/20/22 05:20 01/19/22 08:14 Labs: Laboratory Results - last 24 hr 01/20/22 01/20/22 05:20 05:20 MCV 88.7 MCH 29.1 MCHC 32.8 RDW 13.6 Plt Count 330 MPV 9.2 L Absolute Nucleated RBC 0.000 Nucleated RBC % (auto) 0.0 PT 49.7 H INR 4.1 H 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 presents to the hospital of complaints of worsening pain on his left lower leg Depression after cardiac arrest Will consult CARE team for guidance Cardiac arrest 01/10/22 requiring intubation PEA/asystole, coded for 15 minutes with return of Rosc Secondary to massive bilateral pulmonary emboli with evidence of elevated right heart pressures and positive DVT in the left brachial vein, positive superficial thrombus in the left basilic and cephalic veins Had been maintained on subcutaneous heparin for DVT prophylaxis Physical therapy following 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, started coumadin 5mg daily, aiming for inr around 4 while still on argatroban for at least 5 days, INR now 4.9, will stop Argatroban continue warfarin with INR goal 2-3 monitor cbc, inr daily Left arm swelling secondary to DVT s/p disruption of bullae continue elevation monitor Nonhealing wound of left lower extremity throbbing pain today Hx of Sjogren's Biopsy of the area showing soft tissue gangrenous necrosis, no osteomyelitis on CT s/p surgical debridement 01/02/22 Initially on IV antibiotics- vanco, zosyn switched to doxy/augmentin, completed course pain control an issue especially with dressing changes, had been slowly improving prior to Cardiac arrest Dressing changes every other day with silver alginate switched to oral dilaudid to see if he can handle with dressing changes, also increased oxycodone to 10mg wide complex tachyarrhtyhmia cardio eval now in sinus Cellulitis. Resolved blood cultures negative rheumatoid arthritis continue home medication as well as prednisone COPD, not in exacerbation continue home inhalers DEACON resolved Full code DISPO. to STR when medically stable Attending Dr. Silver reason for continued hospitalization: Now bridged to warfarin. Continue to require IV pain medications for dressing changes Quality Stroke Does the patient have a stroke diagnosis?: No VTE Prior VTE?: No VTE Risk Level:: Medical - moderate - high VTE Device Contraindication: Treatment Not Indicated VTE Drug Contraindication: N/A - Med Ordered
[2022-01-20 12:00] VITALS: BP 91/62; PULSE 62; RESP 20; TEMP 36.7; O2SAT 93
[2022-01-20] MEDS: Dextrose 5 % and 0.9 % NaCl 1,000 ML 100 ML IVCONT (14:36)
[2022-01-20 15:15] VITALS: BP 121/83; PULSE 65; RESP 16; TEMP 37; O2SAT 95
--- NOTE | 2022-01-20 16:13 | PM.PNGS ---
Subjective Subjective Date of Service: 01/20/22 Interval history: depressed today does not want to eat also somewhat confused Physical Exam Vital Signs: Vital Signs: Last Vital Signs Temp 98.6 F 01/20/22 15:15 Pulse 65 01/20/22 15:15 Resp 16 01/20/22 15:15 BP 121/83 01/20/22 15:15 Pulse Ox 95 01/20/22 15:15 O2 Del Method 01/20/22 15:15 O2 Flow Rate 2 01/19/22 23:35 FiO2 40 01/11/22 13:07 Oxygen Flow Rate 2 12/29/21 13:00 BMI result Body Mass Index 27.3 Const: Other: somewhat confused Resp: Effort & Inspection: normal respiratory effort Cardio: Rate: regular rate GI: Palpation (GI): Soft to palpation and nontender Extrem: Other: dressings in place, dry Objective Data Active Medications Docusate Sodium (Docusate Sodium 100 Mg Capsule) 100 mg PO DAILY [facility] Last Admin: 01/20/22 09:45 Dose: 100 mg Documented By: JUSTINO Fentanyl (Fentanyl 25 Mcg Patch.Td72) 25 mcg TRANSDERMA Q72H [facility] Last Admin: 01/18/22 10:01 Dose: 25 mcg Documented By: BROMady Fentanyl (Fentanyl 12 Mcg Patch.Td72) 12 mcg TRANSDERMA Q72H [facility] Last Admin: 01/18/22 13:26 Dose: Not Given Documented By: ANN Non-Admin Reason: Patient Refused Fluticasone/Vilanterol (Fluticasone/Vilanterol 100/25 Blst.W.Dev) 1 puff INHALE DAILY PRN PRN Reason: Shortness Of Breath Hydromorphone HCl (Hydromorphone Hcl 2 Mg Tablet) 3 mg PO Q6H PRN PRN Reason: Pain, Mild (Pain Scale 1-3) Dextrose/Sodium Chloride (D5ns) 1,000 mls @ 100 mls/hr IVCONT .Q10H [facility] Last Admin: 01/20/22 14:36 Dose: 100 mls/hr Documented By: JUSTINO Lorazepam (Lorazepam 0.5 Mg Tablet) 0.25 mg PO Q6H PRN PRN Reason: anxiety Last Admin: 01/20/22 09:45 Dose: 0.25 mg Documented By: JUSTINO Metoprolol Tartrate (Metoprolol Tartrate 50 Mg Tablet) 50 mg PO BID [facility]; Protocol Last Admin: 01/20/22 09:45 Dose: 50 mg Documented By: JUSTINO Naloxone HCl (Naloxone Hcl 0.4 Mg/Ml Vial) 0.2 mg IVPUSH Q2M PRN PRN Reason: Excessive sedation or RR < 8 Omeprazole (Omeprazole 40 Mg Capsule.Dr) 40 mg PO DAILY@0630 [facility] Last Admin: 01/20/22 05:39 Dose: 40 mg Documented By: TRENT Oxycodone HCl (Oxycodone Hcl Immed Release 5 Mg Tablet) 10 mg PO Q4H PRN PRN Reason: moderate pain Last Admin: 01/20/22 09:49 Dose: 10 mg Documented By: JUSTINO Pharmacy Consult (Consult Rx Perform Med Rec) 1 each MISCELLANE ONCE PRN PRN Reason: Consult order Prednisone (Prednisone 20 Mg Tablet) 40 mg PO DAILY [facility] Last Admin: 01/20/22 09:45 Dose: 40 mg Documented By: JUSTINO Sodium Chloride (0.9 % Sodium Chloride Flush 3 Ml Syringe) 3 ml IVFLUSH QSHIFT [facility] Last Admin: 01/20/22 09:46 Dose: 3 ml Documented By: JUSTINO Warfarin Sodium (Warfarin Sodium 5 Mg Tablet) 5 mg PO DAILY@1800 [facility] Last Admin: 01/19/22 17:08 Dose: 5 mg Documented By: VALERIE Labs CBC & Chem 7: 01/20/22 05:20 01/19/22 08:14 Labs: Laboratory Results - last 24 hr 01/20/22 01/20/22 05:20 05:20 MCV 88.7 MCH 29.1 MCHC 32.8 RDW 13.6 Plt Count 330 MPV 9.2 L Absolute Nucleated RBC 0.000 Nucleated RBC % (auto) 0.0 PT 49.7 H INR 4.1 H Procedures Date of Service Date of Service: 01/20/22 Progress Note: A&P Assessment and plan (1) Eschar of lower leg: Status: Acute Assessment and Plan: s/p debridement plan dressing changes tomorrow including for left wrist Alginate dressings for open wounds, granulating has had change in mental status today - depressed, somewhat confused dw Hospitalist - CT ordered IVF - pt not eating at all today Time Spent With Patient Time: Total time spent is greater than 50% in coordination of care (as documented) at patient's floor/unit and/or counseling patient: Quality Stroke Does the patient have a stroke diagnosis?: No VTE Prior VTE?: No VTE Risk Level:: Medical - moderate - high VTE Device Contraindication: Treatment Not Indicated VTE Drug Contraindication: N/A - Med Ordered
--- NOTE | 2022-01-20 17:15 | PM.PSYCN ---
History of Present Illness Date of Service: 01/20/22 Chief Complaint: PE, WCT Reason for Consult: Medication Requesting physician: Aurora Puentes Discussed with referring provider: Yes Sources of Information: patient interviewed, chart reviewed and crisis/core team assessment reviewed HPI Narrative: Sarath is a 76 y.o. male with past medical history of chronic leg wound, Sjogren's disease, RA, COPD, HTN, CKD, underlying collagen vascular disease. He presented to [facility] on 12/22/21 due worsening pain on his left lower extremity due to ulcer. During course of hospitalization, pt went into cardiac arrest, coded for 15 min on 01/10/2022 requiring intubation (extubated 01/11/22) and ICU stay. Pt found to have massive bilateral pulmonary emboli with evidence of elevated right heart pressures and positive DVT in the left brachial vein, positive superficial thrombus in the left basilic and cephalic vein. Pt had echo, which showed EF 60%. 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 Pt is currently being cross titrated from argatroban to coumadin. Pt has throbbing pain, non-healing wound of L lower extremity, had surgical debridement 01/02/22 due to necrosis. Has required IV pain meds for dressing changes. Will be discharged to PT upon discharge. Pt has mostly been on bed rest.? Psych consult placed for medication due to pt complaining of severe depression, crying episodes. I evaluated the pt this evening and upon interview he denies any past psych treatment. He was recently prescribed cymbalta on 12/15/2021 but did not take it. Pt endorses depressed mood. Says he doesnt sleep enough, feels tired, his appetite is low. Says he has thoughts that he?d be better off but denies active SI. Denies experiencing past episodes of depression. Says he feels irritable, ?short,? and has no patience.? Medical Evaluation Reviewed: Yes [facility] Medical History Chronic ulcer of leg Chronic venous insufficiency CKD (chronic kidney disease) stage 3, GFR 30-59 ml/min COPD (chronic obstructive pulmonary disease) Elevated serum creatinine HTN (hypertension) Leg pain, bilateral Rheumatoid arthritis Sjogren's disease Vasculitis Surgical History History of hernia repair History of left knee replacement Diagnostics Vital Signs (24Hr): Vital Signs - 24 hr 01/19/22 19:23 01/19/22 19:25 01/19/22 23:27 Temperature 97.5 F 96.9 F 98.3 F Pulse Rate 78 85 58 Respiratory Rate 18 18 16 Blood Pressure 107/57 L 109/51 L 113/67 Pulse Oximetry 99 95 93 Oxygen Delivery Method Room Air Nasal Cannula Room Air Oxygen Flow Rate 2 01/19/22 23:35 01/19/22 23:39 01/20/22 03:03 Temperature 97.8 F 97.3 F 98.4 F Pulse Rate 54 71 61 Respiratory Rate 16 16 16 Blood Pressure 141/63 H 135/69 112/71 Pulse Oximetry 95 93 95 Oxygen Delivery Method Nasal Cannula Room Air Room Air Oxygen Flow Rate 2 01/20/22 07:48 01/20/22 12:00 01/20/22 15:15 Temperature 98.5 F 98.0 F 98.6 F Pulse Rate 63 62 65 Respiratory Rate 20 20 16 Blood Pressure 124/80 91/62 121/83 Pulse Oximetry 93 93 95 Oxygen Delivery Method Room Air Room Air Room Air Oxygen Flow Rate BMI result Body Mass Index 27.3 Labs Results: 01/20/22 05:20 01/19/22 08:14 Labs: Laboratory Results - last 48 hr 01/19/22 01/19/22 01/19/22 08:14 08:14 08:14 WBC 13.3 H RBC 3.70 L Hgb 10.9 L Hct 33.0 L MCV 89.2 MCH 29.5 MCHC 33.0 RDW 13.8 Plt Count 361 MPV 9.4 Absolute Nucleated RBC 0.000 Nucleated RBC % (auto) 0.0 PT 59.9 H INR 4.9 H aPTT Heparin Protocol Sodium 137 Potassium 4.5 Chloride 105 Carbon Dioxide 26 Anion Gap 11 L BUN 18 H Creatinine 0.83 Estim Creat Clear Calc 73.9 Estimated GFR > 60 Fasting Glucose 75 Calcium 8.6 01/19/22 01/20/22 01/20/22 08:14 05:20 05:20 WBC 10.9 H RBC 3.54 L Hgb 10.3 L Hct 31.4 L MCV 88.7 MCH 29.1 MCHC 32.8 RDW 13.6 Plt Count 330 MPV 9.2 L Absolute Nucleated RBC 0.000 Nucleated RBC % (auto) 0.0 PT 49.7 H INR 4.1 H aPTT Heparin Protocol 74.4 Sodium Potassium Chloride Carbon Dioxide Anion Gap BUN Creatinine Estim Creat Clear Calc Estimated GFR Fasting Glucose Calcium Imaging Radiology Impressions: ITS Impressions Foot CT 12/22/21 19:06 IMPRESSION: 1. No acute osseous injury or CT findings of advanced acute osteomyelitis. 2. Soft tissue ulcers along the midfoot and overlying the distal fibula. 3. No loculated fluid collection to suggest abscess. 4. Diffuse subcutaneous edema. Chest X-Ray 12/22/21 23:00 IMPRESSION: No acute findings. Bibasilar subsegmental atelectasis. Chest X-Ray 01/09/22 05:15 IMPRESSION: Endotracheal tube terminates 5 cm above the ros[place]. New right basilar airspace opacity which could be aspiration or pneumonia. Chest CTA 01/09/22 06:15 IMPRESSION: Bilateral pulmonary emboli. Evidence of elevated right heart pressures. Endotracheal tube terminates 4 cm above the ros[place]. Right lower lobe consolidation which is concerning for pneumonia/aspiration. Severe emphysema. This critical result was discussed with Anamaria Rm PA-C, by telephone at 01/09/2022 6:40 AM and it was ascertained that the content and urgency of the report was understood at the time of direct communication. VTE: positive Chest X-Ray 01/09/22 12:13 IMPRESSION: NG tube placed as described. Otherwise no significant change given differences in patient positioning and inspiratory effort. Duplex Scan Upper Extremity Artery 01/10/22 10:15 IMPRESSION: No hemodynamically significant arterial stenosis bilaterally. Venous Duplex 01/10/22 10:15 IMPRESSION: 1. Positive deep venous thrombosis in the left brachial vein. Positive superficial thrombus in the left basilic and cephalic veins. 2. No evidence for deep venous thrombosis in the right upper extremity. Head CT 01/20/22 15:33 IMPRESSION: No acute findings. Mild generalized atrophy and nonspecific periventricular white matter disease. Mental Status Exam Mental Status Exam Narrative: A&O. In hospital attire, bandage on L upper extremity, somewhat unkempt but not malodorous. Poor eye contact, attentive. No Tics or Tremors. No abnormal involuntary movements. Calm, question of brain injury s/p cardiac arrest and expressive aphasia. Non-pressured speech, normal volume, no prolonged speech latency or dysarthria. Mood is depressed,? affect is blunted. Denies SI/SIB/HI upon inquiry. Denies A/VH or delusional thought content. Thoughts are slowed. Insight/ Judgment fair and adequate. Medications Medications Current Medications Docusate Sodium (Docusate Sodium 100 Mg Capsule) 100 mg PO DAILY [facility] Last Admin: 01/20/22 09:45 Dose: 100 mg Fentanyl (Fentanyl 25 Mcg Patch.Td72) 25 mcg TRANSDERMA Q72H [facility] Last Admin: 01/18/22 10:01 Dose: 25 mcg Fentanyl (Fentanyl 12 Mcg Patch.Td72) 12 mcg TRANSDERMA Q72H [facility] Last Admin: 01/18/22 13:26 Dose: Not Given Fluticasone/Vilanterol (Fluticasone/Vilanterol 100/25 Blst.W.Dev) 1 puff INHALE DAILY PRN PRN Reason: Shortness Of Breath Hydromorphone HCl (Hydromorphone Hcl 2 Mg Tablet) 3 mg PO Q6H PRN PRN Reason: Pain, Mild (Pain Scale 1-3) Dextrose/Sodium Chloride (D5ns) 1,000 mls @ 100 mls/hr IVCONT .Q10H [facility] Last Admin: 01/20/22 14:36 Dose: 100 mls/hr Lorazepam (Lorazepam 0.5 Mg Tablet) 0.25 mg PO Q6H PRN PRN Reason: anxiety Last Admin: 01/20/22 09:45 Dose: 0.25 mg Metoprolol Tartrate (Metoprolol Tartrate 50 Mg Tablet) 50 mg PO BID [facility]; Protocol Last Admin: 01/20/22 09:45 Dose: 50 mg Naloxone HCl (Naloxone Hcl 0.4 Mg/Ml Vial) 0.2 mg IVPUSH Q2M PRN PRN Reason: Excessive sedation or RR < 8 Omeprazole (Omeprazole 40 Mg Capsule.) 40 mg PO DAILY@0630 [facility] Last Admin: 01/20/22 05:39 Dose: 40 mg Oxycodone HCl (Oxycodone Hcl Immed Release 5 Mg Tablet) 10 mg PO Q4H PRN PRN Reason: moderate pain Last Admin: 01/20/22 09:49 Dose: 10 mg Pharmacy Consult (Consult Rx Perform Med Rec) 1 each MISCELLANE ONCE PRN PRN Reason: Consult order Prednisone (Prednisone 20 Mg Tablet) 40 mg PO DAILY [facility] Last Admin: 01/20/22 09:45 Dose: 40 mg Sodium Chloride (0.9 % Sodium Chloride Flush 3 Ml Syringe) 3 ml IVFLUSH QSHIFT [facility] Last Admin: 01/20/22 17:01 Dose: Not Given Warfarin Sodium (Warfarin Sodium 5 Mg Tablet) 5 mg PO DAILY@1800 [facility] Last Admin: 01/19/22 17:08 Dose: 5 mg Allergies Allergies Allergy/AdvReac Type Severity Reaction Status Date / Time heparin (porcine) Allergy Severe HIT Verified 01/16/22 07:48 Assessment & Plan Assessment & Plan (1) MDD (major depressive disorder), single episode: Status: Acute Code(s): F32.9 - Major depressive disorder, single episode, unspecified Plan Sarath is a 76 y.o. male with past medical history of chronic leg wound, Sjogren's disease, RA, COPD, HTN, CKD, underlying collagen vascular disease. He presented to [facility] ED on 12/22/21 due worsening pain on his left lower extremity due to ulcer. During course of hospitalization, pt went into cardiac arrest, coded for 15 min on 01/10/2022 requiring intubation (extubated 01/11/22) and ICU stay. Pt found to have massive bilateral pulmonary emboli with evidence of elevated right heart pressures and positive DVT. 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 Pt is currently being cross titrated from argatroban to coumadin. Pt has throbbing pain, non-healing wound of L lower extremity, had surgical debridement 01/02/22 due to necrosis. Has required IV pain meds for dressing changes. Will be discharged to PT upon discharge. Pt has mostly been on bed rest.?Question of brain injury, expressive aphasia. Plan: -Pt is presenting with sx congruent with single episode of depression, precipitating factors include decompensation in health. Pt prescribed cymbalta prior to admission but did not take it. Will trial cymbalta 20 mg QAM for sx of depression and monitor for benefit. Reviewed risks and benefits. -Care team consult for referral to OP therapy once medically cleared. I have shared this with Aurora Puentes Thank you for this consultation. If you have any questions or concerns, please do not hesitate to contact psychiatry service. I spent minutes with the patient and/or on the patient floor today, greater than?50% of which was spent counseling/coordinating care. Patient educated on: medication risk/benefits and therapeutic strategies
[2022-01-20] MEDS: Warfarin Sodium 5 MG TABLET PO (18:35)
[2022-01-20] MEDS: HYDROmorphone HCl 2 MG TABLET 3 MG PO (18:40)
[2022-01-20 19:40] VITALS: BP 101/63; PULSE 76; RESP 16; TEMP 36.7; O2SAT 92
[2022-01-20] MEDS: DULoxetine HCl 20 MG CAPSULE.DR PO (21:32)
[2022-01-20 23:44] VITALS: BP 107/69; PULSE 58; RESP 18; TEMP 36.4; O2SAT 93
[2022-01-21] MEDS: 0.9 % Sodium Chloride Flush 3 ML SYRINGE IVFLUSH ×4 (00:37→20:06)
[2022-01-21] MEDS: Dextrose 5 % and 0.9 % NaCl 1,000 ML 100 ML IVCONT ×3 (01:52→20:10)
[2022-01-21 03:09] VITALS: BP 99/65; PULSE 62; RESP 18; TEMP 36.6; O2SAT 93
[2022-01-21 05:55] LABS: Hematocrit 33.3 % (42.0-52.0); Hemoglobin 10.6 g/dl (14.0-18.0); Mean Corpuscular HGB Conc 31.8 g/dl (31.0-36.0); Mean Corpuscular Hemoglobin 28.3 pg (27.0-33.0); Mean Corpuscular Volume 88.8 fL (80.0-98.0); Mean Platelet Volume 8.9 fL (9.4-12.4); Platelet Count 289 X10*3/uL (160-400); Red Blood Count 3.75 X10*6/uL (4.60-5.80); Red Cell Distribution Width 13.7 % (11.0-16.0); White Blood Count 9.2 X10*3/uL (4.8-10.8)
[2022-01-21] MEDS: Omeprazole 40 MG CAPSULE.DR PO (06:05)
[2022-01-21 06:17] LABS: INTERNATIONAL NORM RATIO 4.9 (0.9-1.1); Prothrombin Time 59.9 SEC (10.0-13.1)
[2022-01-21 06:46] LABS: Anion Gap 11 (12-20); Blood Urea Nitrogen 15 mg/dL (9-16); Calcium 8.3 mg/dL (8.4-10.2); Carbon Dioxide 24 mmol/L (22-29); Chloride 107 mmol/L (96-108); Creatinine Clr Calc Pharmacy 73.1; Estimated Glomerular Filt Rate > 60; Glucose Random 140 mg/dL (60-115); Potassium 4.5 mmol/L (3.3-5.1); Sodium 137 mmol/L (135-145)
[2022-01-21 07:27] VITALS: BP 107/76; PULSE 78; RESP 18; TEMP 36.6; O2SAT 94
--- NOTE | 2022-01-21 08:16 | PM.PNGS ---
Subjective Subjective Date of Service: 01/21/22 Interval history: Looks much better Alert again today Mental status much improved compared to yesterday Better mood Physical Exam Vital Signs: Vital Signs: Last Vital Signs Temp 97.9 F 01/21/22 07:27 Pulse 78 01/21/22 07:27 Resp 18 01/21/22 07:27 BP 107/76 01/21/22 07:27 Pulse Ox 94 01/21/22 07:27 O2 Del Method 01/21/22 07:27 O2 Flow Rate 2 01/19/22 23:35 FiO2 40 01/11/22 13:07 Oxygen Flow Rate 2 12/29/21 13:00 BMI result Body Mass Index 27.3 Const: General: comfortable and no acute distress GI: Palpation (GI): Soft to palpation and nontender Extrem: Other: Dressings dry Objective Data Active Medications Docusate Sodium (Docusate Sodium 100 Mg Capsule) 100 mg PO DAILY [facility] Last Admin: 01/20/22 09:45 Dose: 100 mg Documented By: JUSTINO Duloxetine HCl (Duloxetine Hcl 20 Mg Capsule.Dr) 20 mg PO BEDTIME [facility] Last Admin: 01/20/22 21:32 Dose: 20 mg Documented By: MANOLO Fentanyl (Fentanyl 25 Mcg Patch.Td72) 25 mcg TRANSDERMA Q72H [facility] Last Admin: 01/18/22 10:01 Dose: 25 mcg Documented By: ANN Fentanyl (Fentanyl 12 Mcg Patch.Td72) 12 mcg TRANSDERMA Q72H [facility] Last Admin: 01/18/22 13:26 Dose: Not Given Documented By: ANN Non-Admin Reason: Patient Refused Fluticasone/Vilanterol (Fluticasone/Vilanterol 100/25 Blst.W.Dev) 1 puff INHALE DAILY PRN PRN Reason: Shortness Of Breath Hydromorphone HCl (Hydromorphone Hcl 2 Mg Tablet) 3 mg PO Q6H PRN PRN Reason: Pain, Mild (Pain Scale 1-3) Last Admin: 01/20/22 18:40 Dose: 3 mg Documented By: JUSTINO Dextrose/Sodium Chloride (D5ns) 1,000 mls @ 100 mls/hr IVCONT .Q10H [facility] Last Admin: 01/21/22 01:52 Dose: 100 mls/hr Documented By: REMIGIO Lorazepam (Lorazepam 0.5 Mg Tablet) 0.25 mg PO Q6H PRN PRN Reason: anxiety Last Admin: 01/20/22 09:45 Dose: 0.25 mg Documented By: JUSTINO Metoprolol Tartrate (Metoprolol Tartrate 50 Mg Tablet) 50 mg PO BID [facility]; Protocol Last Admin: 01/20/22 21:32 Dose: 50 mg Documented By: MANOLO Naloxone HCl (Naloxone Hcl 0.4 Mg/Ml Vial) 0.2 mg IVPUSH Q2M PRN PRN Reason: Excessive sedation or RR < 8 Omeprazole (Omeprazole 40 Mg Capsule.Dr) 40 mg PO DAILY@0630 [facility] Last Admin: 01/21/22 06:05 Dose: 40 mg Documented By: REMIGIO Oxycodone HCl (Oxycodone Hcl Immed Release 5 Mg Tablet) 10 mg PO Q4H PRN PRN Reason: moderate pain Last Admin: 01/20/22 09:49 Dose: 10 mg Documented By: JUSTINO Pharmacy Consult (Consult Rx Perform Med Rec) 1 each MISCELLANE ONCE PRN PRN Reason: Consult order Prednisone (Prednisone 20 Mg Tablet) 40 mg PO DAILY [facility] Last Admin: 01/20/22 09:45 Dose: 40 mg Documented By: JUSTINO Sodium Chloride (0.9 % Sodium Chloride Flush 3 Ml Syringe) 3 ml IVFLUSH QSHIFT [facility] Last Admin: 01/21/22 00:37 Dose: 3 ml Documented By: REMIGIO Warfarin Sodium (Warfarin Sodium 5 Mg Tablet) 5 mg PO DAILY@1800 [facility] Last Admin: 01/20/22 18:35 Dose: 5 mg Documented By: JUSTINO Labs CBC & Chem 7: 01/21/22 05:34 01/21/22 05:34 Labs: Laboratory Results - last 24 hr 01/21/22 01/21/22 01/21/22 05:34 05:34 05:34 MCV 88.8 MCH 28.3 MCHC 31.8 RDW 13.7 Plt Count 289 MPV 8.9 L Absolute Nucleated RBC 0.000 Nucleated RBC % (auto) 0.0 PT 59.9 H INR 4.9 H Anion Gap 11 L Estim Creat Clear Calc 73.1 Estimated GFR > 60 Random Glucose 140 H Calcium 8.3 L Procedures Date of Service Date of Service: 01/21/22 Progress Note: A&P Assessment and plan (1) Eschar of lower leg: Status: Acute Assessment and Plan: Was very depressed, confused yesterday May have been secondary to Ativan? CT scan of the head did not reveal any acute change Now much improved Plan to change dressings today with p.o. Dilaudid Time Spent With Patient Time: Total time spent is greater than 50% in coordination of care (as documented) at patient's floor/unit and/or counseling patient: Quality Stroke Does the patient have a stroke diagnosis?: No VTE Prior VTE?: No VTE Risk Level:: Medical - moderate - high VTE Device Contraindication: Treatment Not Indicated VTE Drug Contraindication: N/A - Med Ordered
[2022-01-21] MEDS: predniSONE 20 MG TABLET 40 MG PO (09:23)
[2022-01-21] MEDS: Metoprolol Tartrate 50 MG TABLET PO ×2 (09:23→20:06)
[2022-01-21] MEDS: fentaNYL 25 MCG PATCH.TD72 TRANSDERMA (09:46)
--- NOTE | 2022-01-21 09:53 | P.PNIM_ITS ---
Subjective Subjective Date of Service: 01/21/22 Review of Systems Follow up leg wounds, cardiac arrest, PE In better spirits today still with pain to his legs and left arm Physical Exam Vital Signs: Vital Signs: Last Vital Signs Temp 97.9 F 01/21/22 07:27 Pulse 78 01/21/22 07:27 Resp 18 01/21/22 07:27 BP 107/76 01/21/22 07:27 Pulse Ox 94 01/21/22 07:27 O2 Del Method 01/21/22 07:27 O2 Flow Rate 2 01/19/22 23:35 FiO2 40 01/11/22 13:07 Oxygen Flow Rate 2 12/29/21 13:00 BMI result Body Mass Index 27.3 Appearing in no acute distress lung sounds are clear to auscultation heart regular rate rhythm, clear S1, S2 positive bowel sounds, abdomen is soft, nontender neuro patient is alert x3, no focal deficits Left hand swelling improving, still with some blistering Left LE wound dressing intact, changed by general surgeon Objective Data Active Medications Docusate Sodium (Docusate Sodium 100 Mg Capsule) 100 mg PO DAILY COUNTS INCLUDE 234 BEDS AT THE [facility] Last Admin: 01/21/22 09:24 Dose: Not Given Documented By: ZACH Non-Admin Reason: Patient Refused Duloxetine HCl (Duloxetine Hcl 20 Mg Capsule.Dr) 20 mg PO BEDTIME COUNTS INCLUDE 234 BEDS AT THE [facility] Last Admin: 01/20/22 21:32 Dose: 20 mg Documented By: MANOLO Fentanyl (Fentanyl 25 Mcg Patch.Td72) 25 mcg TRANSDERMA Q72H COUNTS INCLUDE 234 BEDS AT THE [facility] Last Admin: 01/21/22 09:46 Dose: 25 mcg Documented By: ZACH Fentanyl (Fentanyl 12 Mcg Patch.Td72) 12 mcg TRANSDERMA Q72H COUNTS INCLUDE 234 BEDS AT THE [facility] Last Admin: 01/21/22 09:47 Dose: Not Given Documented By: ZACH Non-Admin Reason: Physician Held Med Fluticasone/Vilanterol (Fluticasone/Vilanterol 100/25 Blst.W.Dev) 1 puff INHALE DAILY PRN PRN Reason: Shortness Of Breath Hydromorphone HCl (Hydromorphone Hcl 2 Mg Tablet) 3 mg PO Q6H PRN PRN Reason: Pain, Mild (Pain Scale 1-3) Last Admin: 01/20/22 18:40 Dose: 3 mg Documented By: JUSTINO Dextrose/Sodium Chloride (D5ns) 1,000 mls @ 100 mls/hr IVCONT .Q10H COUNTS INCLUDE 234 BEDS AT THE [facility] Last Admin: 01/21/22 01:52 Dose: 100 mls/hr Documented By: REMIGIO Lorazepam (Lorazepam 0.5 Mg Tablet) 0.25 mg PO Q6H PRN PRN Reason: anxiety Last Admin: 01/20/22 09:45 Dose: 0.25 mg Documented By: JUSTINO Metoprolol Tartrate (Metoprolol Tartrate 50 Mg Tablet) 50 mg PO BID COUNTS INCLUDE 234 BEDS AT THE [facility]; Protocol Last Admin: 01/21/22 09:23 Dose: 50 mg Documented By: ZACH Naloxone HCl (Naloxone Hcl 0.4 Mg/Ml Vial) 0.2 mg IVPUSH Q2M PRN PRN Reason: Excessive sedation or RR < 8 Omeprazole (Omeprazole 40 Mg Capsule.Dr) 40 mg PO DAILY@0630 COUNTS INCLUDE 234 BEDS AT THE [facility] Last Admin: 01/21/22 06:05 Dose: 40 mg Documented By: REMIGIO Oxycodone HCl (Oxycodone Hcl Immed Release 5 Mg Tablet) 10 mg PO Q4H PRN PRN Reason: moderate pain Last Admin: 01/20/22 09:49 Dose: 10 mg Documented By: JUSTINO Pharmacy Consult (Consult Rx Perform Med Rec) 1 each MISCELLANE ONCE PRN PRN Reason: Consult order Prednisone (Prednisone 20 Mg Tablet) 40 mg PO DAILY COUNTS INCLUDE 234 BEDS AT THE [facility] Last Admin: 01/21/22 09:23 Dose: 40 mg Documented By: ZACH Sodium Chloride (0.9 % Sodium Chloride Flush 3 Ml Syringe) 3 ml IVFLUSH QSHIFT COUNTS INCLUDE 234 BEDS AT THE [facility] Last Admin: 01/21/22 09:24 Dose: 3 ml Documented By: ZACH Warfarin Sodium (Warfarin Sodium 5 Mg Tablet) 5 mg PO DAILY@1800 COUNTS INCLUDE 234 BEDS AT THE [facility] Last Admin: 01/20/22 18:35 Dose: 5 mg Documented By: JUSTINO Labs CBC & Chem 7: 01/21/22 05:34 01/21/22 05:34 Labs: Laboratory Results - last 24 hr 01/21/22 01/21/22 01/21/22 05:34 05:34 05:34 MCV 88.8 MCH 28.3 MCHC 31.8 RDW 13.7 Plt Count 289 MPV 8.9 L Absolute Nucleated RBC 0.000 Nucleated RBC % (auto) 0.0 PT 59.9 H INR 4.9 H Anion Gap 11 L Estim Creat Clear Calc 73.1 Estimated GFR > 60 Random Glucose 140 H Calcium 8.3 L 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, started coumadin 5mg daily, aiming for inr around 4 while still on argatroban for at least 5 days, INR now 4.9, will stop Argatroban continue warfarin with INR goal 2-3 monitor cbc, inr daily Left arm swelling secondary to DVT s/p disruption of bullae continue elevation monitor Nonhealing wound of left lower extremity throbbing pain today Hx of Sjogren's Biopsy of the area showing soft tissue gangrenous necrosis, no osteomyelitis on CT s/p surgical debridement 01/02/22 Initially on IV antibiotics- vanco, zosyn switched to doxy/augmentin, completed course pain control an issue especially with dressing changes, had been slowly improving prior to Cardiac arrest Dressing changes every other day with silver alginate switched to oral dilaudid to see if he can handle with dressing changes, also increased oxycodone to 10mg wide complex tachyarrhtyhmia cardio eval now in sinus Cellulitis. Resolved blood cultures negative rheumatoid arthritis continue home medication as well as prednisone COPD, not in exacerbation continue home inhalers DEACON resolved DVT prophylaxis with warfarin Full code DISPO. to STR when medically stable Attending Dr. Adams reason for continued hospitalization: Now bridged to warfarin. Continue to require IV pain medications for dressing changes Quality Stroke Does the patient have a stroke diagnosis?: No VTE Prior VTE?: No VTE Risk Level:: Medical - moderate - high VTE Device Contraindication: Treatment Not Indicated VTE Drug Contraindication: N/A - Med Ordered
--- NOTE | 2022-01-21 10:08 | PC.NURSE ---
Fentanyl patch 25mcg from 01/18/22 removed 09:45 from left upper back. New fentanyl patch 25 mcg placed to left upper posterior shoulder for left arm pain.
[2022-01-21] MEDS: HYDROmorphone HCl 2 MG TABLET PO (11:36)
--- NOTE | 2022-01-21 11:41 | MHC.CM.PN ---
Per ROUNDS discussion, Patient is not yet medically cleared for dc (Fentanyl Patch for leg and left arm pain); PT is recommending STR and CM will continue to follow.
[2022-01-21 12:00] VITALS: BP 99/60; PULSE 64; RESP 20; TEMP 36.9; O2SAT 94
--- NOTE | 2022-01-21 13:39 | MHC.CLN ---
F/U PO INTAKE IMPROVED 75-100% DIET RX: CARDIAC-APPROPRIATE PT RECEIVING ENSURE BID PROVIDES 700KCALS, 40G PROTEIN TO PROMOTE WOUND HEALING CONTINUE TO MONITOR PO INTAKE CLOSELY
[2022-01-21] MEDS: oxyCODONE HCl Immed Release 5 MG TABLET 10 MG PO (14:45)
[2022-01-21 15:42] VITALS: BP 95/65; PULSE 67; RESP 18; TEMP 36.8; O2SAT 94
[2022-01-21] MEDS: HYDROmorphone HCl 2 MG TABLET 3 MG PO (16:40)
[2022-01-21 19:44] VITALS: BP 110/67; PULSE 65; RESP 18; TEMP 36.4; O2SAT 93
[2022-01-21] MEDS: DULoxetine HCl 20 MG CAPSULE.DR PO (20:06)
[2022-01-21 23:11] VITALS: BP 118/71; RESP 17; O2SAT 95
[2022-01-22] VITALS (7 sets, daily range): BP systolic 99–126; BP diastolic 62–77; PULSE 57–67; RESP 14–20; TEMP 36.2–36.8; O2SAT 92–97
[2022-01-22 05:57] LABS: Hematocrit 27.7 % (42.0-52.0); Mean Corpuscular HGB Conc 32.5 g/dl (31.0-36.0); Mean Corpuscular Hemoglobin 28.8 pg (27.0-33.0); Mean Corpuscular Volume 88.8 fL (80.0-98.0); Mean Platelet Volume 8.8 fL (9.4-12.4); Platelet Count 235 X10*3/uL (160-400); Red Blood Count 3.12 X10*6/uL (4.60-5.80); Red Cell Distribution Width 13.7 % (11.0-16.0); White Blood Count 9.3 X10*3/uL (4.8-10.8)
[2022-01-22 06:09] LABS: INTERNATIONAL NORM RATIO 4.1 (0.9-1.1); Prothrombin Time 49.4 SEC (10.0-13.1)
[2022-01-22] MEDS: Dextrose 5 % and 0.9 % NaCl 1,000 ML 100 ML IVCONT (06:22)
[2022-01-22] MEDS: Omeprazole 40 MG CAPSULE.DR PO (06:22)
[2022-01-22] MEDS: Metoprolol Tartrate 50 MG TABLET PO ×2 (09:04→20:36)
[2022-01-22] MEDS: predniSONE 20 MG TABLET 40 MG PO (09:04)
--- NOTE | 2022-01-22 11:06 | MHC.CM.PN ---
Per Medical, Patient will likely be ready for dc to SNF/STR tomorrow; CM has asked [facility] to initiate the auth process.
[2022-01-22] MEDS: HYDROmorphone HCl 2 MG TABLET 3 MG PO (12:02)
--- NOTE | 2022-01-22 12:39 | MHC.CM.PN ---
CM met with Patient and his at bedside. expressed that she felt uninformed about Patient's condition/plan. RN was in the room upon CM entering and Patient's indicated that Medical (Sandra) had been in earlier today to speak with/update her. CM explained that the first choices for SNFs are not able to accept Patient and that fellow RN ANANYA Colmenares had discussed a referral to the only accepting facility/[facility] on 12/31/21. CM addressed IMM with Patient and his and original has been given to them and a copy has been placed on the chart. Patient and his appeared comforted and appreciative of the update and CM will follow.
--- NOTE | 2022-01-22 13:37 | P.PNGS_ITS ---
Subjective Subjective Date of Service: 01/22/22 Interval history: No new complaints Eating better Patient not happy with care in [facility] Physical Exam Vital Signs: Vital Signs: Last Vital Signs Temp 98.0 F 01/22/22 11:25 Pulse 67 01/22/22 11:25 Resp 20 01/22/22 11:25 BP 103/62 01/22/22 11:25 Pulse Ox 94 01/22/22 11:25 O2 Del Method 01/22/22 11:25 O2 Flow Rate 2 01/19/22 23:35 FiO2 40 01/11/22 13:07 Oxygen Flow Rate 2 12/29/21 13:00 BMI result Body Mass Index 27.3 Const: General: comfortable and no acute distress Resp: Effort & Inspection: normal respiratory effort Extrem: Other: Dressings in place, bleeding, no solid Objective Data Active Medications Docusate Sodium (Docusate Sodium 100 Mg Capsule) 100 mg PO DAILY [facility] Last Admin: 01/22/22 09:04 Dose: Not Given Documented By: RUBIA Non-Admin Reason: Patient Refused Duloxetine HCl (Duloxetine Hcl 20 Mg Capsule.Dr) 20 mg PO BEDTIME [facility] Last Admin: 01/21/22 20:06 Dose: 20 mg Documented By: BAKARI Fentanyl (Fentanyl 25 Mcg Patch.Td72) 25 mcg TRANSDERMA Q72H [facility] Last Admin: 01/21/22 09:46 Dose: 25 mcg Documented By: ZACH Fluticasone/Vilanterol (Fluticasone/Vilanterol 100/25 Blst.W.Dev) 1 puff INHALE DAILY PRN PRN Reason: Shortness Of Breath Hydromorphone HCl (Hydromorphone Hcl 2 Mg Tablet) 3 mg PO Q6H PRN PRN Reason: Pain, Mild (Pain Scale 1-3) Last Admin: 01/22/22 12:02 Dose: 3 mg Documented By: RUBIA Lorazepam (Lorazepam 0.5 Mg Tablet) 0.25 mg PO Q6H PRN PRN Reason: anxiety Last Admin: 01/20/22 09:45 Dose: 0.25 mg Documented By: JUSTINO Metoprolol Tartrate (Metoprolol Tartrate 50 Mg Tablet) 50 mg PO BID [facility]; Protocol Last Admin: 01/22/22 09:04 Dose: 50 mg Documented By: RUBIA Naloxone HCl (Naloxone Hcl 0.4 Mg/Ml Vial) 0.2 mg IVPUSH Q2M PRN PRN Reason: Excessive sedation or RR < 8 Omeprazole (Omeprazole 40 Mg Capsule.) 40 mg PO DAILY@0630 [facility] Last Admin: 01/22/22 06:22 Dose: 40 mg Documented By: BAKARI Oxycodone HCl (Oxycodone Hcl Immed Release 5 Mg Tablet) 10 mg PO Q4H PRN PRN Reason: moderate pain Last Admin: 01/21/22 14:45 Dose: 10 mg Documented By: ZACH Pharmacy Consult (Consult Rx Perform Med Rec) 1 each MISCELLANE ONCE PRN PRN Reason: Consult order Prednisone (Prednisone 20 Mg Tablet) 40 mg PO DAILY [facility] Last Admin: 01/22/22 09:04 Dose: 40 mg Documented By: RUBIA Sodium Chloride (0.9 % Sodium Chloride Flush 3 Ml Syringe) 3 ml IVFLUSH QSHIFT [facility] Last Admin: 01/22/22 09:04 Dose: Not Given Documented By: RUBIA Non-Admin Reason: IV Running Warfarin Sodium (Warfarin Sodium 5 Mg Tablet) 5 mg PO DAILY@1800 [facility] Last Admin: 01/20/22 18:35 Dose: 5 mg Documented By: JUSTINO Labs CBC & Chem 7: 01/22/22 05:39 01/21/22 05:34 Labs: Laboratory Results - last 24 hr 01/22/22 01/22/22 05:39 05:39 MCV 88.8 MCH 28.8 MCHC 32.5 RDW 13.7 Plt Count 235 MPV 8.8 L Absolute Nucleated RBC 0.000 Nucleated RBC % (auto) 0.0 PT 49.4 H INR 4.1 H Procedures Date of Service Date of Service: 01/22/22 Progress Note: A&P Assessment and plan (1) Eschar of lower leg: Status: Acute Assessment and Plan: Plan to do dressing change tomorrow with p.o. Dilaudid Will change pain regimen - oxycodone 10 mg p.o. p.r.n. for pain, Dilaudid only for dressing change if possible Physical therapy Explained plan to family at bedside Time Spent With Patient Time: Total time spent is greater than 50% in coordination of care (as documented) at patient's floor/unit and/or counseling patient: Quality Stroke Does the patient have a stroke diagnosis?: No VTE Prior VTE?: No VTE Risk Level:: Medical - moderate - high VTE Device Contraindication: Treatment Not Indicated VTE Drug Contraindication: N/A - Med Ordered
[2022-01-22] MEDS: 0.9 % Sodium Chloride Flush 3 ML SYRINGE IVFLUSH ×2 (16:02→20:37)
--- NOTE | 2022-01-22 16:14 | HO.PM.IMPN ---
Subjective Subjective Date of Service: 01/22/22 Interval History: Seen and examined this morning Follow-up for PE, lower extremity edema Pain under adequate control No specific complaints at this time Review of Systems Review of Systems: Yes all other systems are reviewed and are negative Constitutional Constitutional: Denies chills and Denies fever(s) Cardiovascular Cardiovascular: Denies chest pain, Denies palpitations and Denies dyspnea Respiratory Respiratory: Denies cough and Denies dyspnea Gastrointestinal Gastrointestinal: Denies abdominal pain Endocrine Endocrine: Denies palpitations Physical Exam Vital Signs: Vital Signs: Last Vital Signs Temp 98.2 F 01/22/22 15:11 Pulse 63 01/22/22 15:11 Resp 14 01/22/22 15:11 BP 100/64 01/22/22 15:11 Pulse Ox 95 01/22/22 15:11 O2 Del Method 01/22/22 15:11 O2 Flow Rate 2 01/19/22 23:35 FiO2 40 01/11/22 13:07 Oxygen Flow Rate 2 12/29/21 13:00 BMI result Body Mass Index 27.3 Const: General: cooperative, comfortable, alert and awake Nutritional Appearance: average body habitus Orientation/consciousness: patient oriented x3 Resp: Effort & Inspection: normal respiratory effort and able to speak in complete sentences Cardio: Rate: regular rate Heart sounds: S1 normal heart sound present and S2 normal heart sound present GI: Palpation (GI): Soft to palpation and nontender Neuro: General: patient oriented x3 Extrem: Other: Left hand, left lower leg wrapped in clean/dry bandage; left arm swelling Objective Data Active Medications Docusate Sodium (Docusate Sodium 100 Mg Capsule) 100 mg PO DAILY [facility] Last Admin: 01/22/22 09:04 Dose: Not Given Documented By: RUBIA Non-Admin Reason: Patient Refused Duloxetine HCl (Duloxetine Hcl 20 Mg Capsule.Dr) 20 mg PO BEDTIME [facility] Last Admin: 01/21/22 20:06 Dose: 20 mg Documented By: BAKARI Fentanyl (Fentanyl 25 Mcg Patch.Td72) 25 mcg TRANSDERMA Q72H [facility] Last Admin: 01/21/22 09:46 Dose: 25 mcg Documented By: ZACH Fluticasone/Vilanterol (Fluticasone/Vilanterol 100/25 Blst.W.Dev) 1 puff INHALE DAILY PRN PRN Reason: Shortness Of Breath Hydromorphone HCl (Hydromorphone Hcl 2 Mg Tablet) 2 mg PO Q4H PRN PRN Reason: Pain, Moderate (Pain Scale 4-6 Metoprolol Tartrate (Metoprolol Tartrate 50 Mg Tablet) 50 mg PO BID [facility]; Protocol Last Admin: 01/22/22 09:04 Dose: 50 mg Documented By: RUBIA Naloxone HCl (Naloxone Hcl 0.4 Mg/Ml Vial) 0.2 mg IVPUSH Q2M PRN PRN Reason: Excessive sedation or RR < 8 Omeprazole (Omeprazole 40 Mg Capsule.Dr) 40 mg PO DAILY@0630 [facility] Last Admin: 01/22/22 06:22 Dose: 40 mg Documented By: BAKARI Oxycodone HCl (Oxycodone Hcl Immed Release 5 Mg Tablet) 10 mg PO Q4H PRN PRN Reason: moderate pain Last Admin: 01/21/22 14:45 Dose: 10 mg Documented By: ZACH Pharmacy Consult (Consult Rx Perform Med Rec) 1 each MISCELLANE ONCE PRN PRN Reason: Consult order Prednisone (Prednisone 20 Mg Tablet) 40 mg PO DAILY [facility] Last Admin: 01/22/22 09:04 Dose: 40 mg Documented By: RUBIA Sodium Chloride (0.9 % Sodium Chloride Flush 3 Ml Syringe) 3 ml IVFLUSH QSHIFT [facility] Last Admin: 01/22/22 16:02 Dose: 3 ml Documented By: LANDENQC Warfarin Sodium (Warfarin Sodium 5 Mg Tablet) 5 mg PO DAILY@1800 [facility] Last Admin: 01/20/22 18:35 Dose: 5 mg Documented By: HOWIEI Labs CBC & Chem 7: 01/22/22 05:39 01/21/22 05:34 Labs: Laboratory Results - last 24 hr 01/22/22 01/22/22 05:39 05:39 MCV 88.8 MCH 28.8 MCHC 32.5 RDW 13.7 Plt Count 235 MPV 8.8 L Absolute Nucleated RBC 0.000 Nucleated RBC % (auto) 0.0 PT 49.4 H INR 4.1 H Assessment and Plan (1) Deep vein thrombosis: Status: Acute (2) Acute pulmonary embolism with acute cor pulmonale: Status: Acute Plan 76-year-old male with past medical history of chronic leg wound, Sjogren's disease, 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 argatroban now d/c continue warfarin with INR goal 2-3; INR elevated, coumadin on hold monitor cbc, inr daily Cardiac arrest 01/10/22 requiring intubation/PE/DVT PEA/asystole, coded for 15 minutes with return of Rosc Secondary to massive bilateral pulmonary emboli with evidence of elevated right heart pressures and positive DVT in the left brachial vein, positive superficial thrombus in the left basilic and cephalic veins Had been maintained on subcutaneous heparin for DVT prophylaxis continue coumadin Left arm swelling secondary to DVT s/p disruption of bullae continue elevation monitor Nonhealing wound of left lower extremity Hx of Sjogren's Biopsy of the area showing soft tissue gangrenous necrosis, no osteomyelitis on CT s/p surgical debridement 01/02/22 Initially on IV antibiotics- vanco, zosyn switched to doxy/augmentin, completed course pain control an issue especially with dressing changes, had been slowly improving prior to Cardiac arrest Dressing changes every other day with silver alginate switched to oral dilaudid to see if he can handle with dressing changes, also increased oxycodone to 10mg tachyarrhtyhmia seen by cardiology continue BB Cellulitis. Resolved blood cultures negative rheumatoid arthritis continue home medication as well as prednisone COPD, not in exacerbation continue home inhalers DEACON resolved DVT prophylaxis with warfarin Full code DISPO. to STR when medically stable Attending Dr. Adams reason for continued hospitalization: Now bridged to warfarin Quality Stroke Does the patient have a stroke diagnosis?: No VTE Prior VTE?: No VTE Risk Level:: Medical - moderate - high VTE Device Contraindication: Treatment Not Indicated VTE Drug Contraindication: N/A - Med Ordered
[2022-01-22] MEDS: DULoxetine HCl 20 MG CAPSULE.DR PO (20:36)
[2022-01-23] VITALS (8 sets, daily range): BP systolic 89–138; BP diastolic 56–80; PULSE 56–65; RESP 14–18; TEMP 36.6–37.1; O2SAT 92–98
[2022-01-23] MEDS: oxyCODONE HCl Immed Release 5 MG TABLET 10 MG PO ×3 (03:25→23:18)
[2022-01-23] MEDS: polyethylene glycoL 3350 17 GM POWD.PACK PO (03:34)
[2022-01-23 05:15] LABS: OBS Int Ctl Valid YES; OBS1 NEGATIVE (NEGATIVE)
[2022-01-23] MEDS: Omeprazole 40 MG CAPSULE.DR PO (05:53)
[2022-01-23 06:53] LABS: Hematocrit 29.7 % (42.0-52.0); Hemoglobin 9.5 g/dl (14.0-18.0); Mean Corpuscular Hemoglobin 28.3 pg (27.0-33.0); Mean Corpuscular Volume 88.4 fL (80.0-98.0); Mean Platelet Volume 9.2 fL (9.4-12.4); Platelet Count 228 X10*3/uL (160-400); Red Blood Count 3.36 X10*6/uL (4.60-5.80); Red Cell Distribution Width 13.7 % (11.0-16.0); White Blood Count 9.7 X10*3/uL (4.8-10.8)
[2022-01-23 07:04] LABS: INTERNATIONAL NORM RATIO 2.3 (0.9-1.1); Prothrombin Time 26.8 SEC (10.0-13.1)
[2022-01-23] MEDS: 0.9 % Sodium Chloride Flush 3 ML SYRINGE IVFLUSH ×3 (10:35→23:18)
[2022-01-23] MEDS: Metoprolol Tartrate 50 MG TABLET PO ×2 (10:35→23:18)
[2022-01-23] MEDS: predniSONE 20 MG TABLET 40 MG PO (10:35)
--- NOTE | 2022-01-23 11:36 | MHC.CLN ---
F/U PO INTAKE VARIABLE RANGING FROM 0-100% DIET RX: CARDIAC-APPROPRIATE PT RECEIVING ENSURE BID PROVIDES 700KCALS, 40G PROTEIN TO PROMOTE WOUND HEALING CONTINUE TO MONITOR PO INTAKE CLOSELY
--- NOTE | 2022-01-23 14:48 | MHC.CM.PN ---
PER NOTES, REQUEST SENT TO [facility] YESTERDAY ASKING FOR AUTH TO BE INITIATED. PER [facility], AUTH NOT YET RECEIVED. MESSAGE LEFT REQUESTING FOLLOW UP PTS INSURANCE COMPANY WILL BE CLOSED THROUGH THE WEEKEND, IF [facility] DOES NOT COME IN TODAY, HE WILL REMAIN UNTIL WEDNESDAY WHEN THEY REOPEN.
[2022-01-23] MEDS: HYDROmorphone HCl 2 MG TABLET PO (16:17)
--- NOTE | 2022-01-23 16:54 | HO.PM.IMPN ---
Subjective Subjective Date of Service: 01/23/22 Interval History: Seen and examined this morning No specific complaints today No chest pain, no shortness of breath Pain under adequate control Review of Systems Review of Systems: Yes all other systems are reviewed and are negative Constitutional Constitutional: Denies chills and Denies fever(s) Cardiovascular Cardiovascular: Denies chest pain, Denies palpitations and Denies dyspnea Respiratory Respiratory: Denies cough and Denies dyspnea Gastrointestinal Gastrointestinal: Denies abdominal pain Endocrine Endocrine: Denies palpitations Physical Exam Vital Signs: Vital Signs: Last Vital Signs Temp 97.8 F 01/23/22 15:34 Pulse 62 01/23/22 15:34 Resp 14 01/23/22 15:34 BP 89/56 L 01/23/22 15:34 Pulse Ox 94 01/23/22 15:34 O2 Del Method 01/23/22 15:34 O2 Flow Rate 2 01/19/22 23:35 FiO2 40 01/11/22 13:07 Oxygen Flow Rate 2 12/29/21 13:00 BMI result Body Mass Index 27.3 Const: General: cooperative, comfortable, alert and awake Nutritional Appearance: average body habitus Orientation/consciousness: patient oriented x3 Resp: Effort & Inspection: normal respiratory effort and able to speak in complete sentences Cardio: Rate: regular rate Heart sounds: S1 normal heart sound present and S2 normal heart sound present GI: Palpation (GI): Soft to palpation and nontender Skin: Other: Neuro: General: patient oriented x3 Extrem: Other: Left hand, left lower leg wrapped in clean/dry bandage; left arm swelling Objective Data Active Medications Docusate Sodium (Docusate Sodium 100 Mg Capsule) 100 mg PO DAILY [facility] Last Admin: 01/23/22 10:36 Dose: Not Given Documented By: RUBIA Non-Admin Reason: Patient Refused Duloxetine HCl (Duloxetine Hcl 20 Mg Capsule.Dr) 20 mg PO BEDTIME [facility] Last Admin: 01/22/22 20:36 Dose: 20 mg Documented By: BAKARI Fentanyl (Fentanyl 25 Mcg Patch.Td72) 25 mcg TRANSDERMA Q72H [facility] Last Admin: 01/21/22 09:46 Dose: 25 mcg Documented By: ZACH Fluticasone/Vilanterol (Fluticasone/Vilanterol 100/25 Blst.W.Dev) 1 puff INHALE DAILY PRN PRN Reason: Shortness Of Breath Hydromorphone HCl (Hydromorphone Hcl 2 Mg Tablet) 2 mg PO Q4H PRN PRN Reason: Pain, Moderate (Pain Scale 4-6 Last Admin: 01/23/22 16:17 Dose: 2 mg Documented By: RUBIA Metoprolol Tartrate (Metoprolol Tartrate 50 Mg Tablet) 50 mg PO BID [facility]; Protocol Last Admin: 01/23/22 10:35 Dose: 50 mg Documented By: RUBIA Naloxone HCl (Naloxone Hcl 0.4 Mg/Ml Vial) 0.2 mg IVPUSH Q2M PRN PRN Reason: Excessive sedation or RR < 8 Omeprazole (Omeprazole 40 Mg Capsule.Dr) 40 mg PO DAILY@0630 [facility] Last Admin: 01/23/22 05:53 Dose: 40 mg Documented By: BAKARI Oxycodone HCl (Oxycodone Hcl Immed Release 5 Mg Tablet) 10 mg PO Q4H PRN PRN Reason: moderate pain Last Admin: 01/23/22 03:25 Dose: 10 mg Documented By: BAKARI Pharmacy Consult (Consult Rx Perform Med Rec) 1 each MISCELLANE ONCE PRN PRN Reason: Consult order Polyethylene Glycol (Polyethylene Glycol 3350 17 Gm Powd.Pack) 17 gm PO DAILY PRN PRN Reason: Constipation Last Admin: 01/23/22 03:34 Dose: 17 gm Documented By: BAKARI Prednisone (Prednisone 20 Mg Tablet) 40 mg PO DAILY [facility] Last Admin: 01/23/22 10:35 Dose: 40 mg Documented By: RUBIA Sodium Chloride (0.9 % Sodium Chloride Flush 3 Ml Syringe) 3 ml IVFLUSH QSHIFT [facility] Last Admin: 01/23/22 16:19 Dose: 3 ml Documented By: RUBIA Warfarin Sodium (Warfarin Sodium 4 Mg Tablet) 4 mg PO DAILY@1800 [facility] Labs CBC & Chem 7: 01/23/22 06:13 01/21/22 05:34 Labs: Laboratory Results - last 24 hr 01/23/22 01/23/22 01/23/22 04:30 06:12 06:13 MCV 88.4 MCH 28.3 MCHC 32.0 RDW 13.7 Plt Count 228 MPV 9.2 L Absolute Nucleated RBC 0.000 Nucleated RBC % (auto) 0.0 PT 26.8 H INR 2.3 H Stool Occult Blood NEGATIVE Assessment and Plan (1) Pressure injury of buttock, stage 1: Status: Acute (2) Acute pulmonary embolism with acute cor pulmonale: Status: Acute (3) Chronic ulcer of leg: Status: Acute Plan 76-year-old male with past medical history of chronic leg wound, Sjogren's disease, 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 INR now 2.3 resume coumadin Check PT INR daily Depression after cardiac arrest Seen by psychiatry team (see note) Resumed on Cymbalta 20 mg daily, Needs lots of encouragement. 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 argatroban now d/c continue warfarin with INR goal 2-3; INR 2.3, resume coumadin monitor cbc, inr daily Cardiac arrest 01/10/22 requiring intubation/PE/DVT PEA/asystole, coded for 15 minutes with return of Rosc Secondary to massive bilateral pulmonary emboli with evidence of elevated right heart pressures and positive DVT in the left brachial vein, positive superficial thrombus in the left basilic and cephalic veins Had been maintained on subcutaneous heparin for DVT prophylaxis continue coumadin Left arm swelling secondary to DVT s/p disruption of bullae continue elevation Nonhealing wound of left lower extremity Hx of Sjogren's Biopsy of the area showing soft tissue gangrenous necrosis, no osteomyelitis on CT s/p surgical debridement 01/02/22 Initially on IV antibiotics- vanco, zosyn switched to doxy/augmentin, completed course pain control an issue especially with dressing changes, had been slowly improving prior to Cardiac arrest Dressing changes every other day with silver alginate switched to oral dilaudid to see if he can handle with dressing changes, also increased oxycodone to 10mg dressing changes per Dr. hilda saul, plan to change to MWF dressing changes tachyarrhtyhmia seen by cardiology continue BB Cellulitis. Resolved blood cultures negative rheumatoid arthritis continue home medication as well as prednisone COPD, not in exacerbation continue home inhalers DEACON resolved Pressure injury of buttock, stage 1 local wound care DVT prophylaxis with warfarin Full code DISPO. to STR when medically stable Attending Dr. Adams reason for continued hospitalization: Now bridged to warfarin; awaiting rehab placement Quality Stroke Does the patient have a stroke diagnosis?: No VTE Prior VTE?: No VTE Risk Level:: Medical - moderate - high VTE Device Contraindication: Treatment Not Indicated VTE Drug Contraindication: N/A - Med Ordered
--- NOTE | 2022-01-23 16:55 | HO.PSYCHPN ---
Subjective Subjective Date of Service: 01/23/22 Reason For Visit: PE, ELINA Interim History: Patient seen and discussed with team. Patient evaluated today and upon interview pt reports its hard to say for if he has noticed any benefit on cymbalta, which I agree it is too early to assess. Says he has been up and down with his mood. His sleep has been improving and his energy is better, says he still cant say it's doing great. His pain is a 10/10, recently had a dressing change. Pt's is present, which was allowed by the pt, and she reports I've seen a little bit of a difference in his mood, he doesnt seem to be as down and out and agitated. Per pt, I feel better but not great. Medication Compliance: Yes Side effects from medications: No Mental Status Exam Mental Status Exam Narrative: A&O. In hospital attire, bandage on L upper extremity, somewhat unkempt but not malodorous. Poor eye contact, attentive. No Tics or Tremors. No abnormal involuntary movements. Calm, aphasia is less. Non-pressured speech, normal volume, no prolonged speech latency or dysarthria. Mood is okay,? affect is brighter, calmer. Denies SI/SIB/HI upon inquiry. Denies A/VH or delusional thought content. Thoughts are slowed. Insight/ Judgment fair and adequate. Diagnostics Vital Signs (24Hr): Vital Signs - 24 hr 01/22/22 19:04 01/22/22 20:30 01/22/22 23:21 Temperature 98.3 F 98.2 F Pulse Rate 66 63 Respiratory Rate 14 14 Blood Pressure 99/66 126/77 110/74 Pulse Oximetry 94 97 Oxygen Delivery Method Room Air Room Air 01/23/22 04:00 01/23/22 07:21 01/23/22 10:44 Temperature 98.6 F 98.4 F Pulse Rate 65 56 56 Respiratory Rate 15 16 Blood Pressure 138/80 111/70 111/70 Pulse Oximetry 94 93 93 Oxygen Delivery Method Room Air Room Air 01/23/22 11:49 01/23/22 15:34 Temperature 98.4 F 97.8 F Pulse Rate 61 62 Respiratory Rate 16 14 Blood Pressure 104/67 89/56 L Pulse Oximetry 92 94 Oxygen Delivery Method Room Air Room Air BMI result Body Mass Index 27.3 Labs Results: 01/24/22 06:05 01/24/22 06:05 Labs: Laboratory Results - last 48 hr 01/22/22 01/22/22 01/23/22 05:39 05:39 04:30 WBC 9.3 RBC 3.12 L Hgb 9.0 L Hct 27.7 L MCV 88.8 MCH 28.8 MCHC 32.5 RDW 13.7 Plt Count 235 MPV 8.8 L Absolute Nucleated RBC 0.000 Nucleated RBC % (auto) 0.0 PT 49.4 H INR 4.1 H Stool Occult Blood NEGATIVE 01/23/22 01/23/22 06:12 06:13 WBC 9.7 RBC 3.36 L Hgb 9.5 L Hct 29.7 L MCV 88.4 MCH 28.3 MCHC 32.0 RDW 13.7 Plt Count 228 MPV 9.2 L Absolute Nucleated RBC 0.000 Nucleated RBC % (auto) 0.0 PT 26.8 H INR 2.3 H Stool Occult Blood Imaging Radiology Impressions: ITS Impressions Foot CT 12/22/21 19:06 IMPRESSION: 1. No acute osseous injury or CT findings of advanced acute osteomyelitis. 2. Soft tissue ulcers along the midfoot and overlying the distal fibula. 3. No loculated fluid collection to suggest abscess. 4. Diffuse subcutaneous edema. Chest X-Ray 12/22/21 23:00 IMPRESSION: No acute findings. Bibasilar subsegmental atelectasis. Chest X-Ray 01/09/22 05:15 IMPRESSION: Endotracheal tube terminates 5 cm above the rosanna. New right basilar airspace opacity which could be aspiration or pneumonia. Chest CTA 01/09/22 06:15 IMPRESSION: Bilateral pulmonary emboli. Evidence of elevated right heart pressures. Endotracheal tube terminates 4 cm above the rosanna. Right lower lobe consolidation which is concerning for pneumonia/aspiration. Severe emphysema. This critical result was discussed with Anamaria Rm PA-C, by telephone at 01/09/2022 6:40 AM and it was ascertained that the content and urgency of the report was understood at the time of direct communication. VTE: positive Chest X-Ray 01/09/22 12:13 IMPRESSION: NG tube placed as described. Otherwise no significant change given differences in patient positioning and inspiratory effort. Duplex Scan Upper Extremity Artery 01/10/22 10:15 IMPRESSION: No hemodynamically significant arterial stenosis bilaterally. Venous Duplex 01/10/22 10:15 IMPRESSION: 1. Positive deep venous thrombosis in the left brachial vein. Positive superficial thrombus in the left basilic and cephalic veins. 2. No evidence for deep venous thrombosis in the right upper extremity. Head CT 01/20/22 15:33 IMPRESSION: No acute findings. Mild generalized atrophy and nonspecific periventricular white matter disease. Medications Medications Current Medications Docusate Sodium (Docusate Sodium 100 Mg Capsule) 100 mg PO DAILY [facility] Last Admin: 01/23/22 10:36 Dose: Not Given Duloxetine HCl (Duloxetine Hcl 20 Mg Capsule.) 20 mg PO BEDTIME [facility] Last Admin: 01/22/22 20:36 Dose: 20 mg Fentanyl (Fentanyl 25 Mcg Patch.Td72) 25 mcg TRANSDERMA Q72H [facility] Last Admin: 01/21/22 09:46 Dose: 25 mcg Fluticasone/Vilanterol (Fluticasone/Vilanterol 100/25 Blst.W.Dev) 1 puff INHALE DAILY PRN PRN Reason: Shortness Of Breath Hydromorphone HCl (Hydromorphone Hcl 2 Mg Tablet) 2 mg PO Q4H PRN PRN Reason: Pain, Moderate (Pain Scale 4-6 Last Admin: 01/23/22 16:17 Dose: 2 mg Metoprolol Tartrate (Metoprolol Tartrate 50 Mg Tablet) 50 mg PO BID [facility]; Protocol Last Admin: 01/23/22 10:35 Dose: 50 mg Naloxone HCl (Naloxone Hcl 0.4 Mg/Ml Vial) 0.2 mg IVPUSH Q2M PRN PRN Reason: Excessive sedation or RR < 8 Omeprazole (Omeprazole 40 Mg Capsule.) 40 mg PO DAILY@0630 [facility] Last Admin: 01/23/22 05:53 Dose: 40 mg Oxycodone HCl (Oxycodone Hcl Immed Release 5 Mg Tablet) 10 mg PO Q4H PRN PRN Reason: moderate pain Last Admin: 01/23/22 03:25 Dose: 10 mg Pharmacy Consult (Consult Rx Perform Med Rec) 1 each MISCELLANE ONCE PRN PRN Reason: Consult order Polyethylene Glycol (Polyethylene Glycol 3350 17 Gm Powd.Pack) 17 gm PO DAILY PRN PRN Reason: Constipation Last Admin: 01/23/22 03:34 Dose: 17 gm Prednisone (Prednisone 20 Mg Tablet) 40 mg PO DAILY [facility] Last Admin: 01/23/22 10:35 Dose: 40 mg Sodium Chloride (0.9 % Sodium Chloride Flush 3 Ml Syringe) 3 ml IVFLUSH QSHIFT [facility] Last Admin: 01/23/22 16:19 Dose: 3 ml Warfarin Sodium (Warfarin Sodium 4 Mg Tablet) 4 mg PO DAILY@1800 [facility] Allergies Allergies Allergy/AdvReac Type Severity Reaction Status Date / Time heparin (porcine) Allergy Severe HIT Verified 01/16/22 07:48 Assessment & Plan Assessment & Plan (1) Deep vein thrombosis: Status: Acute Code(s): I82.409 - Acute embolism and thrombosis of unspecified deep veins of unspecified lower extremity (2) Acute pulmonary embolism with acute cor pulmonale: Status: Acute Code(s): I26.09 - Other pulmonary embolism with acute cor pulmonale Plan Sarath is a 76 y.o. male with past medical history of chronic leg wound, Sjogren's disease, RA, COPD, HTN, CKD, underlying collagen vascular disease. He presented to [facility] ED on 12/22/21 due worsening pain on his left lower extremity due to ulcer. During course of hospitalization, pt went into cardiac arrest, coded for 15 min on 01/10/2022 requiring intubation (extubated 01/11/22) and ICU stay. Pt found to have massive bilateral pulmonary emboli with evidence of elevated right heart pressures and positive DVT. 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 Pt is currently being cross titrated from argatroban to coumadin. Pt has throbbing pain, non-healing wound of L lower extremity, had surgical debridement 01/02/22 due to necrosis. Has required IV pain meds for dressing changes. Will be discharged to PT upon discharge. Pt has mostly been on bed rest.?Question of brain injury, expressive aphasia. Plan: -Pt is presenting with sx congruent with single episode of depression, precipitating factors include decompensation in health. Pt prescribed cymbalta prior to admission but did not take it. Will trial cymbalta 20 mg QAM for sx of depression and monitor for benefit. Reviewed risks and benefits. -Care team consult for referral to OP therapy once medically cleared. I have shared this with Aurora Puentes Thank you for this consultation. If you have any questions or concerns, please do not hesitate to contact psychiatry service. I spent minutes with the patient and/or on the patient floor today, greater than?50% of which was spent counseling/coordinating care. Reason for contiued inpatient stay Substantial Risk for: stable for discharge
--- NOTE | 2022-01-23 18:01 | PM.EVENT ---
Event Note Date of Service: 01/23/22 Event Note: dressing changed premdicated with PODilaudid 45 minutes before, alginate soaked with NS to loosen this both left lower leg wounds clean, granulating edema has resolved Silver alginate applied, wrapped with abd and Issac roll left wrist/hand dressings also changed central line removed
[2022-01-23] MEDS: Warfarin Sodium 4 MG TABLET PO (18:32)
--- NOTE | 2022-01-23 20:02 | PC.NURSE ---
[address] Cedeno. Also dsg to left arm and LE changed by . Medicated for pain with some eff.
[2022-01-23] MEDS: DULoxetine HCl 20 MG CAPSULE.DR PO (23:18)
[2022-01-24 04:00] VITALS: BP 126/78; PULSE 57; RESP 20; TEMP 37.1; O2SAT 96
[2022-01-24] MEDS: oxyCODONE HCl Immed Release 5 MG TABLET 10 MG PO (06:26)
[2022-01-24] MEDS: Omeprazole 40 MG CAPSULE.DR PO (06:26)
[2022-01-24 06:36] LABS: INTERNATIONAL NORM RATIO 1.9 (0.9-1.1); Prothrombin Time 22.2 SEC (10.0-13.1)
[2022-01-24 06:38] LABS: Hematocrit 30.5 % (42.0-52.0); Hemoglobin 9.7 g/dl (14.0-18.0); Mean Corpuscular HGB Conc 31.8 g/dl (31.0-36.0); Mean Corpuscular Hemoglobin 28.2 pg (27.0-33.0); Mean Corpuscular Volume 88.7 fL (80.0-98.0); Platelet Count 226 X10*3/uL (160-400); Red Blood Count 3.44 X10*6/uL (4.60-5.80); Red Cell Distribution Width 13.9 % (11.0-16.0); White Blood Count 9.6 X10*3/uL (4.8-10.8)
[2022-01-24 07:15] LABS: Anion Gap 9 (12-20); Blood Urea Nitrogen 16 mg/dL (9-16); Calcium 8.2 mg/dL (8.4-10.2); Carbon Dioxide 29 mmol/L (22-29); Chloride 105 mmol/L (96-108); Creatinine Clr Calc Pharmacy 73.1; Estimated Glomerular Filt Rate > 60; Glucose Random 86 mg/dL (60-115); Potassium 5.1 mmol/L (3.3-5.1); Sodium 138 mmol/L (135-145)
[2022-01-24] MEDS: predniSONE 20 MG TABLET 40 MG PO (07:47)
[2022-01-24] MEDS: 0.9 % Sodium Chloride Flush 3 ML SYRINGE IVFLUSH ×3 (07:48→21:30)
[2022-01-24] MEDS: Metoprolol Tartrate 50 MG TABLET PO (07:51)
[2022-01-24] MEDS: fentaNYL 25 MCG PATCH.TD72 TRANSDERMA (07:51)
[2022-01-24 08:00] VITALS: BP 127/61; PULSE 67; RESP 18; TEMP 36.3; O2SAT 92
--- NOTE | 2022-01-24 11:23 | P.PNIM_ITS ---
Subjective Subjective Date of Service: 01/24/22 Interval History: seen and examined this morning follow up for chronic wound feeling well this am, no specific complaints tolerating diet, voiding without issue, pain controlled Review of Systems Review of Systems: Yes all other systems are reviewed and are negative Constitutional Constitutional: Denies chills and Denies fever(s) Cardiovascular Cardiovascular: Denies chest pain, Denies palpitations and Denies dyspnea Respiratory Respiratory: Denies cough and Denies dyspnea Endocrine Endocrine: Denies palpitations Physical Exam Vital Signs: Vital Signs: Last Vital Signs Temp 97.4 F 01/24/22 08:00 Pulse 67 01/24/22 08:00 Resp 18 01/24/22 08:00 BP 127/61 01/24/22 08:00 Pulse Ox 92 01/24/22 08:00 O2 Del Method 01/24/22 08:00 O2 Flow Rate 2 01/19/22 23:35 FiO2 40 01/11/22 13:07 Oxygen Flow Rate 2 12/29/21 13:00 BMI result Body Mass Index 27.3 Const: General: cooperative, comfortable, alert and awake Nutritional Appearance: average body habitus Orientation/consciousness: patient oriented x3 Resp: Effort & Inspection: normal respiratory effort and able to speak in co mplete sentences Cardio: Rate: regular rate Heart sounds: S1 normal heart sound present and S2 normal heart sound present GI: Palpation (GI): Soft to palpation and nontender Neuro: General: patient oriented x3 Extrem: Other: Left hand, left lower leg wrapped in clean/dry bandage; left arm swelling Objective Data Active Medications Docusate Sodium (Docusate Sodium 100 Mg Capsule) 100 mg PO DAILY [facility] Last Admin: 01/24/22 07:48 Dose: Not Given Documented By: VALERIE Non-Admin Reason: Patient Refused Duloxetine HCl (Duloxetine Hcl 20 Mg Capsule.Dr) 20 mg PO BEDTIME [facility] Last Admin: 01/23/22 23:18 Dose: 20 mg Documented By: JOE Fentanyl (Fentanyl 25 Mcg Patch.Td72) 25 mcg TRANSDERMA Q72H [facility] Last Admin: 01/24/22 07:51 Dose: 25 mcg Documented By: VALERIE Fluticasone/Vilanterol (Fluticasone/Vilanterol 100/25 Blst.W.Dev) 1 puff INHALE DAILY PRN PRN Reason: Shortness Of Breath Hydromorphone HCl (Hydromorphone Hcl 2 Mg Tablet) 2 mg PO Q4H PRN PRN Reason: Pain, Moderate (Pain Scale 4-6 Last Admin: 01/23/22 16:17 Dose: 2 mg Documented By: RUBIA Metoprolol Tartrate (Metoprolol Tartrate 50 Mg Tablet) 50 mg PO BID [facility]; Protocol Last Admin: 01/24/22 07:51 Dose: 50 mg Documented By: VALERIE Naloxone HCl (Naloxone Hcl 0.4 Mg/Ml Vial) 0.2 mg IVPUSH Q2M PRN PRN Reason: Excessive sedation or RR < 8 Omeprazole (Omeprazole 40 Mg Capsule.Dr) 40 mg PO DAILY@0630 [facility] Last Admin: 01/24/22 06:26 Dose: 40 mg Documented By: JOE Oxycodone HCl (Oxycodone Hcl Immed Release 5 Mg Tablet) 10 mg PO Q4H PRN PRN Reason: moderate pain Last Admin: 01/24/22 06:26 Dose: 10 mg Documented By: JOE Pharmacy Consult (Consult Rx Perform Med Rec) 1 each MISCELLANE ONCE PRN PRN Reason: Consult order Polyethylene Glycol (Polyethylene Glycol 3350 17 Gm Powd.Pack) 17 gm PO DAILY PRN PRN Reason: Constipation Last Admin: 01/23/22 03:34 Dose: 17 gm Documented By: BAKARI Prednisone (Prednisone 20 Mg Tablet) 40 mg PO DAILY [facility] Last Admin: 01/24/22 07:47 Dose: 40 mg Documented By: VALERIE Sodium Chloride (0.9 % Sodium Chloride Flush 3 Ml Syringe) 3 ml IVFLUSH QSHIFT [facility] Last Admin: 01/24/22 07:48 Dose: 3 ml Documented By: VALERIE Warfarin Sodium (Warfarin Sodium 4 Mg Tablet) 4 mg PO DAILY@1800 [facility] Last Admin: 01/23/22 18:32 Dose: 4 mg Documented By: RUBIA Labs CBC & Chem 7: 01/24/22 06:05 01/24/22 06:05 Labs: Laboratory Results - last 24 hr 01/24/22 01/24/22 01/24/22 06:05 06:05 06:05 MCV 88.7 MCH 28.2 MCHC 31.8 RDW 13.9 Plt Count 226 MPV 9.0 L Absolute Nucleated RBC 0.000 Nucleated RBC % (auto) 0.0 PT 22.2 H INR 1.9 H Anion Gap 9 L Estim Creat Clear Calc 73.1 Estimated GFR > 60 Random Glucose 86 D Calcium 8.2 L Assessment and Plan (1) Pressure injury of buttock, stage 1: Status: Acute (2) Deep vein thrombosis: Status: Acute (3) Acute pulmonary embolism: Status: Acute Plan 76-year-old male with past medical history of chronic leg wound, Sjogren's disease, 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 argatroban now d/c continue warfarin with INR goal 2-3; INR 2.3, resume coumadin monitor cbc, inr daily avoid heparin products Cardiac arrest 01/10/22 requiring intubation/PE/DVT PEA/asystole, coded for 15 minutes with return of Rosc Secondary to massive bilateral pulmonary emboli with evidence of elevated right heart pressures and positive DVT in the left brachial vein, positive superficial thrombus in the left basilic and cephalic veins Had been maintained on subcutaneous heparin for DVT prophylaxis continue coumadin. INR was elevated and held, resumed yesterday at lower dose, INR 1.9 will increase dose of coumadin, follow INR Left arm swelling secondary to DVT s/p disruption of bullae continue elevation Nonhealing wound of left lower extremity Hx of Sjogren's Biopsy of the area showing soft tissue gangrenous necrosis, no osteomyelitis on CT s/p surgical debridement 01/02/22 Initially on IV antibiotics- vanco, zosyn switched to doxy/augmentin, completed course pain control an issue especially with dressing changes, had been slowly im proving prior to Cardiac arrest Dressing changes every other day with silver alginate switched to oral dilaudid to see if he can handle with dressing changes, also increased oxycodone to 10mg dressing changes per Dr. hilda saul, plan to change to MWF dressing changes tachyarrhtyhmia seen by cardiology continue BB Cellulitis. Resolved blood cultures negative rheumatoid arthritis continue home medication as well as prednisone COPD, not in exacerbation continue home inhalers DEACON resolved Pressure injury of buttock, stage 1 local wound care DVT prophylaxis with warfarin Full code DISPO. to STR when medically stable Attending Dr. Adams reason for continued hospitalization: Now bridged to warfarin; awaiting rehab placement - awaiting insurance authorization, Has bed at [facility] Quality Stroke Does the patient have a stroke diagnosis?: No VTE Prior VTE?: No VTE Risk Level:: Medical - moderate - high VTE Device Contraindication: Treatment Not Indicated VTE Drug Contraindication: N/A - Med Ordered
[2022-01-24 12:00] VITALS: BP 94/57; PULSE 66; RESP 20; TEMP 36.2; O2SAT 94
[2022-01-24 15:13] VITALS: BP 94/65; PULSE 77; RESP 18; TEMP 36.7; O2SAT 94
[2022-01-24] MEDS: Warfarin Sodium 5 MG TABLET PO (17:56)
[2022-01-24 19:16] VITALS: BP 99/63; PULSE 61; RESP 18; TEMP 36.7; O2SAT 96
[2022-01-24] MEDS: DULoxetine HCl 20 MG CAPSULE.DR PO (21:29)
[2022-01-25] VITALS (7 sets, daily range): BP systolic 95–123; BP diastolic 56–80; PULSE 57–87; RESP 16–20; TEMP 36.1–37.1; O2SAT 91–98
[2022-01-25] MEDS: Omeprazole 40 MG CAPSULE.DR PO (05:30)
[2022-01-25 06:51] LABS: INTERNATIONAL NORM RATIO 2.1 (0.9-1.1); Prothrombin Time 24.6 SEC (10.0-13.1)
[2022-01-25] MEDS: Metoprolol Tartrate 50 MG TABLET PO ×2 (08:44→22:13)
[2022-01-25] MEDS: Docusate Sodium 100 MG CAPSULE PO (08:44)
[2022-01-25] MEDS: 0.9 % Sodium Chloride Flush 3 ML SYRINGE IVFLUSH ×3 (08:45→22:13)
[2022-01-25] MEDS: predniSONE 20 MG TABLET 40 MG PO (08:45)
[2022-01-25] MEDS: polyethylene glycoL 3350 17 GM POWD.PACK PO (13:13)
--- NOTE | 2022-01-25 14:17 | P.PNIM_ITS ---
Subjective Subjective Date of Service: 01/25/22 Interval History: seen and examined this morning follow up left arm/leg wounds, PE frustrated overnight with leaking [place] catheter and inability to reach urinal, gonzalez catheter was placed no SOB, no chest pain Review of Systems Review of Systems: Yes all other systems are reviewed and are negative Constitutional Constitutional: Denies chills and Denies fever(s) Cardiovascular Cardiovascular: Denies chest pain, Denies palpitations and Denies dyspnea Respiratory Respiratory: Denies cough and Denies dyspnea Gastrointestinal Gastrointestinal: Denies abdominal pain, Denies nausea and Denies vomiting Endocrine Endocrine: Denies palpitations Physical Exam Vital Signs: Vital Signs: Last Vital Signs Temp 97.3 F 01/25/22 12:00 Pulse 65 01/25/22 13:57 Resp 20 01/25/22 13:57 BP 107/65 01/25/22 13:57 Pulse Ox 95 01/25/22 13:57 O2 Del Method 01/25/22 13:57 O2 Flow Rate 2 01/19/22 23:35 FiO2 40 01/11/22 13:07 Oxygen Flow Rate 2 12/29/21 13:00 BMI result Body Mass Index 27.3 Const: General: cooperative, comfortable, alert and awake Nutritional Appearance: average body habitus Orientation/consciousness: patient oriented x3 Resp: Effort & Inspection: normal respiratory effort and able to speak in complete sentences Cardio: Rate: regular rate Heart sounds: S1 normal heart sound present and S2 normal heart sound present GI: Palpation (GI): Soft to palpation and nontender : Other: gonzalez in place draining clear yellow urine Neuro: General: patient oriented x3 Extrem: Other: Left hand, left lower leg wrapped in clean/dry bandage; left arm swelling improving Objective Data Active Medications Docusate Sodium (Docusate Sodium 100 Mg Capsule) 100 mg PO DAILY [facility] Last Admin: 01/25/22 08:44 Dose: 100 mg Documented By: DESIRE Duloxetine HCl (Duloxetine Hcl 20 Mg Capsule.) 20 mg PO BEDTIME [facility] Last Admin: 01/24/22 21:29 Dose: 20 mg Documented By: ANABELA Fentanyl (Fentanyl 25 Mcg Patch.Td72) 25 mcg TRANSDERMA Q72H [facility] Last Admin: 01/24/22 07:51 Dose: 25 mcg Documented By: HO.NGENOAL Fluticasone/Vilanterol (Fluticasone/Vilanterol 100/25 Blst.W.Dev) 1 puff INHALE DAILY PRN PRN Reason: Shortness Of Breath Hydromorphone HCl (Hydromorphone Hcl 2 Mg Tablet) 2 mg PO Q4H PRN PRN Reason: Pain, Moderate (Pain Scale 4-6 Last Admin: 01/23/22 16:17 Dose: 2 mg Documented By: RUBIA Metoprolol Tartrate (Metoprolol Tartrate 50 Mg Tablet) 50 mg PO BID [facility]; Protocol Last Admin: 01/25/22 08:44 Dose: 50 mg Documented By: DESIRE Naloxone HCl (Naloxone Hcl 0.4 Mg/Ml Vial) 0.2 mg IVPUSH Q2M PRN PRN Reason: Excessive sedation or RR < 8 Omeprazole (Omeprazole 40 Mg Capsule.) 40 mg PO DAILY@0630 [facility] Last Admin: 01/25/22 05:30 Dose: 40 mg Documented By: ANABELA Pharmacy Consult (Consult Rx Perform Med Rec) 1 each MISCELLANE ONCE PRN PRN Reason: Consult order Polyethylene Glycol (Polyethylene Glycol 3350 17 Gm Powd.Pack) 17 gm PO DAILY PRN PRN Reason: Constipation Last Admin: 01/25/22 13:13 Dose: 17 gm Documented By: DESIRE Prednisone (Prednisone 20 Mg Tablet) 40 mg PO DAILY [facility] Last Admin: 01/25/22 08:45 Dose: 40 mg Documented By: DESIRE Sodium Chloride (0.9 % Sodium Chloride Flush 3 Ml Syringe) 3 ml IVFLUSH QSHIFT [facility] Last Admin: 01/25/22 08:45 Dose: 3 ml Documented By: DESIRE Warfarin Sodium (Warfarin Sodium 5 Mg Tablet) 5 mg PO DAILY@1800 [facility] Last Admin: 01/24/22 17:56 Dose: 5 mg Documented By: HAL Labs CBC & Chem 7: 01/24/22 06:05 01/24/22 06:05 Labs: Laboratory Results - last 24 hr 01/25/22 06:03 PT 24.6 H INR 2.1 H Assessment and Plan (1) MDD (major depressive disorder), single episode: Status: Acute (2) Acute pulmonary embolism: Status: Acute Plan 76-year-old male with past medical history of chronic leg wound, Sjogren's disease, 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 argatroban now d/c continue warfarin with INR goal 2-3; continue coumadin monitor inr daily avoid heparin products Cardiac arrest 01/10/22 requiring intubation/PE/DVT PEA/asystole, coded for 15 minutes with return of Rosc Secondary to massive bilateral pulmonary emboli with evidence of elevated right heart pressures and positive DVT in the left brachial vein, positive superficial thrombus in the left basilic and cephalic veins Had been maintained on subcutaneous heparin for DVT prophylaxis continue coumadin INR 2.1 Left arm swelling secondary to DVT improving s/p disruption of bullae continue elevation Nonhealing wound of left lower extremity Hx of Sjogren's Biopsy of the area showing soft tissue gangrenous necrosis, no osteomyelitis on CT s/p surgical debridement 01/02/22 Initially on IV antibiotics- vanco, zosyn switched to doxy/augmentin, completed course pain control an issue especially with dressing changes, had been slowly improving prior to Cardiac arrest switched to oral dilaudid to see if he can handle with dressing changes, also increased oxycodone to 10mg dressing changes per Dr. hilda saul, plan to change to MWF dressing changes tachyarrhtyhmia seen by cardiology continue BB Cellulitis. Resolved blood cultures negative rheumatoid arthritis continue home medication, wean prednisone COPD, not in exacerbation continue home inhalers DEACON resolved Pressure injury of buttock, stage 1 local wound care DVT prophylaxis with warfarin Full code DISPO. to STR when medically stable Attending Dr. Adams reason for continued hospitalization: Now bridged to warfarin; awaiting rehab placement - awaiting insurance authorization, [facility] Stroke Does the patient have a stroke diagnosis?: No VTE Prior VTE?: No VTE Risk Level:: Medical - moderate - high VTE Device Contraindication: Treatment Not Indicated VTE Drug Contraindication: N/A - Med Ordered
[2022-01-25] MEDS: Warfarin Sodium 5 MG TABLET PO (17:29)
[2022-01-25] MEDS: DULoxetine HCl 20 MG CAPSULE.DR PO (22:13)
[2022-01-26 03:09] VITALS: BP 117/66; PULSE 51; RESP 19; TEMP 36.8; O2SAT 96
[2022-01-26 04:00] VITALS: PULSE 51
[2022-01-26] MEDS: Omeprazole 40 MG CAPSULE.DR PO (06:00)
[2022-01-26 07:07] LABS: Hematocrit 31.3 % (42.0-52.0); Mean Corpuscular HGB Conc 31.9 g/dl (31.0-36.0); Mean Corpuscular Hemoglobin 28.2 pg (27.0-33.0); Mean Corpuscular Volume 88.4 fL (80.0-98.0); Mean Platelet Volume 8.6 fL (9.4-12.4); Platelet Count 215 X10*3/uL (160-400); Red Blood Count 3.54 X10*6/uL (4.60-5.80); Red Cell Distribution Width 14.3 % (11.0-16.0); White Blood Count 9.1 X10*3/uL (4.8-10.8)
[2022-01-26 07:13] LABS: Prothrombin Time 35.6 SEC (10.0-13.1)
[2022-01-26 07:38] VITALS: BP 123/83; PULSE 59; RESP 18; TEMP 36.7; O2SAT 94
[2022-01-26] MEDS: predniSONE 10 MG TABLET 30 MG PO (08:37)
[2022-01-26 09:37] VITALS: BP 123/83; PULSE 59; O2SAT 94
[2022-01-26 11:24] VITALS: BP 113/70; PULSE 71; RESP 20; TEMP 36.5; O2SAT 94
[2022-01-26] MEDS: HYDROmorphone HCl 2 MG TABLET PO (11:47)
--- NOTE | 2022-01-26 12:12 | MHC.CLN ---
F/U PO INTAKE 50% AVERAGE DIET RX: CARDIAC-APPROPRIATE PT RECEIVING ENSURE BID PROVIDES 700KCALS, 40G PROTEIN TO PROMOTE WOUND HEALING SPOKE WITH PT TODAY STATED OVERALL FOOD IS FINE DRINKING ENSURE AT BEDSIDE PRESSURE INJURY NOW STAGE 1 PER NSG CONTINUE TO MONITOR PO INTAKE CLOSELY
--- NOTE | 2022-01-26 12:44 | HO.PM.IMPN ---
Subjective Subjective Date of Service: 01/26/22 Interval History: follow up left arm/leg wounds, PE frustrated overnight with leaking [place] catheter and inability to reach urinal, gonzalez catheter was placed no SOB, no chest pain Review of Systems Follow up Review of Systems: Yes all other systems are reviewed and are negative Constitutional Constitutional: Denies chills and Denies fever(s) Cardiovascular Cardiovascular: Denies chest pain, Denies palpitations and Denies dyspnea Respiratory Respiratory: Denies cough and Denies dyspnea Gastrointestinal Gastrointestinal: Denies abdominal pain, Denies nausea and Denies vomiting Endocrine Endocrine: Denies palpitations Physical Exam Vital Signs: Vital Signs: Last Vital Signs Temp 97.7 F 01/26/22 11:24 Pulse 71 01/26/22 11:24 Resp 20 01/26/22 11:24 BP 113/70 01/26/22 11:24 Pulse Ox 94 01/26/22 11:24 O2 Del Method 01/26/22 11:24 O2 Flow Rate 2 01/19/22 23:35 FiO2 40 01/11/22 13:07 Oxygen Flow Rate 2 12/29/21 13:00 BMI result Body Mass Index 27.3 Appearing in no acute distress lung sounds are clear to auscultation heart regular rate rhythm, clear S1, S2 positive bowel sounds, abdomen is soft, nontender neuro patient is alert x3, no focal deficits Left leg wound Objective Data Active Medications Docusate Sodium (Docusate Sodium 100 Mg Capsule) 100 mg PO DAILY [facility] Last Admin: 01/26/22 08:39 Dose: Not Given Documented By: MARIN-SOFFA Non-Admin Reason: Patient Refused Duloxetine HCl (Duloxetine Hcl 20 Mg Capsule.) 20 mg PO BEDTIME [facility] Last Admin: 01/25/22 22:13 Dose: 20 mg Documented By: CRISTIN Fentanyl (Fentanyl 25 Mcg Patch.Td72) 25 mcg TRANSDERMA Q72H [facility] Last Admin: 01/24/22 07:51 Dose: 25 mcg Documented By: VALERIE Fluticasone/Vilanterol (Fluticasone/Vilanterol 100/25 Blst.W.Dev) 1 puff INHALE DAILY PRN PRN Reason: Shortness Of Breath Hydromorphone HCl (Hydromorphone Hcl 2 Mg Tablet) 2 mg PO Q4H PRN PRN Reason: Pain, Moderate (Pain Scale 4-6 Last Admin: 01/26/22 11:47 Dose: 2 mg Documented By: ALAN Metoprolol Tartrate (Metoprolol Tartrate 50 Mg Tablet) 50 mg PO BID [facility]; Protocol Last Admin: 01/26/22 08:31 Dose: Not Given Documented By: ALAN Non-Admin Reason: low HR Naloxone HCl (Naloxone Hcl 0.4 Mg/Ml Vial) 0.2 mg IVPUSH Q2M PRN PRN Reason: Excessive sedation or RR < 8 Omeprazole (Omeprazole 40 Mg Capsule.) 40 mg PO DAILY@0630 [facility] Last Admin: 01/26/22 06:00 Dose: 40 mg Documented By: MITCHEL Pharmacy Consult (Consult Rx Perform Med Rec) 1 each MISCELLANE ONCE PRN PRN Reason: Consult order Polyethylene Glycol (Polyethylene Glycol 3350 17 Gm Powd.Pack) 17 gm PO DAILY PRN PRN Reason: Constipation Last Admin: 01/25/22 13:13 Dose: 17 gm Documented By: DESIRE Prednisone (Prednisone 10 Mg Tablet) 30 mg PO DAILY [facility] Last Admin: 01/26/22 08:37 Dose: 30 mg Documented By: ALAN Sodium Chloride (0.9 % Sodium Chloride Flush 3 Ml Syringe) 3 ml IVFLUSH QSHIFT [facility] Last Admin: 01/26/22 07:53 Dose: Not Given Documented By: ALAN Non-Admin Reason: See Note Warfarin Sodium (Warfarin Sodium 4 Mg Tablet) 4 mg PO DAILY@1800 [facility] Labs CBC & Chem 7: 01/26/22 06:46 01/24/22 06:05 Labs: Laboratory Results - last 24 hr 01/26/22 01/26/22 06:46 06:46 MCV 88.4 MCH 28.2 MCHC 31.9 RDW 14.3 Plt Count 215 MPV 8.6 L Absolute Nucleated RBC 0.000 Nucleated RBC % (auto) 0.0 PT 35.6 H INR 3.0 H Assessment and Plan (1) MDD (major depressive disorder), single episode: Status: Acute (2) Acute pulmonary embolism: Status: Acute Plan 76-year-old male with past medical history of chronic leg wound, Sjogren's disease, 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 argatroban now d/c continue warfarin with INR goal 2-3; continue coumadin monitor inr daily avoid heparin products Cardiac arrest 01/10/22 requiring intubation/PE/DVT PEA/asystole, coded for 15 minutes with return of Rosc Secondary to massive bilateral pulmonary emboli with evidence of elevated right heart pressures and positive DVT in the left brachial vein, positive superficial thrombus in the left basilic and cephalic veins Had been maintained on subcutaneous heparin for DVT prophylaxis continue coumadin Left arm swelling secondary to DVT improving s/p disruption of bullae continue elevation Nonhealing wound of left lower extremity Hx of Sjogren's Biopsy of the area showing soft tissue gangrenous necrosis, no osteomyelitis on CT s/p surgical debridement 01/02/22 Initially on IV antibiotics- vanceddy zosyn switched to doxy/augmentin, completed course pain control an issue especially with dressing changes, had been slowly improving prior to Cardiac arrest switched to oral dilaudid to see if he can handle with dressing changes, also increased oxycodone to 10mg dressing changes per Dr. hilda saul, plan to change to MWF dressing changes tachyarrythmia seen by cardiology continue BB Cellulitis. Resolved blood cultures negative rheumatoid arthritis continue home medication, wean prednisone COPD, not in exacerbation continue home inhalers DEACON resolved Pressure injury of buttock, stage 1 local wound care DVT prophylaxis with warfarin Full code DISPO. to STR when medically stable Attending Dr. Adams reason for continued hospitalization: Now bridged to warfarin; awaiting rehab placement - awaiting insurance authorization, [facility] bed [facility] Stroke Does the patient have a stroke diagnosis?: No VTE Prior VTE?: No VTE Risk Level:: Medical - moderate - high VTE Device Contraindication: Treatment Not Indicated VTE Drug Contraindication: N/A - Med Ordered
--- NOTE | 2022-01-26 13:41 | MHC.CM.PN ---
ins auth obtained amb risa be set up for 3 to [facility]
--- NOTE | 2022-01-26 14:11 | PM.DS ---
DS: Providers Provider Date of Service: 01/27/22 Date of admission: 12/22/21 22:46 Primary care physician: Kia Stroud MD Consults: 12/22/21 22:45 Consult to General Surgery Routine Consulting Provider: Qamar Cedeno Reason for consultation: non-healing wound Has provider been notified: Yes Consult to Infectious Diseases Routine Consulting Provider: Elizabeth Camara Reason for consultation: non-healing wound Has provider been notified: No 12/23/21 12:31 Consult to Wound Care Routine Consulting Provider: Sandra Vela Reason for consultation: leg wound Has provider been notified: No 12/23/21 15:05 Consult to Nephrology Routine Consulting Provider: Terrance Scruggs Reason for consultation: [facility] vs ckd Has provider been notified: No 12/24/21 14:12 Consult to Wound Care Routine Consulting Provider: Sandra Vela Reason for consultation: chronic ulcer left leg, s/p debridement yesterday 12/26/21 09:56 Consult to Pain Management Routine Consulting Provider: [facility] Reason for consultation: persistent leg pain Has provider been notified: No 01/12/22 08:17 Consult to Vascular Surgery Routine Consulting Provider: Harry Tavares Reason for consultation: RUE venous thrombosis ?local t-PA Has provider been notified: No 01/13/22 10:05 Consult to Wound Care Stat Consulting Provider: Sandra Vela Reason for consultation: wound staging bilateral buttocks 01/13/22 10:31 Consult to Hematology / Oncology Routine Consulting Provider: Ludy Powell Reason for consultation: PE on heparin Has provider been notified: No 01/14/22 14:39 Consult to Cardiology Routine Consulting Provider: Loco Carr Reason for consultation: NSVT, cardiac arrest this admission 01/19/22 09:09 Consult to Care Team Routine Comment: Reason for consultation: severe depression after cardiac arrest 01/20/22 14:37 Consult to Psychiatry Routine Consulting Provider: Psych Covering Reason for consultation: severe depression Has provider been notified: No Attending physician on discharge: Anival Adams Discharging clinician: Aurora Puentes DS: Diagnosis Discharge Diagnosis (1) MDD (major depressive disorder), single episode: Status: Acute (2) Acute pulmonary embolism: Status: Acute DS: Summary Hospital Course Hospital Course: HP as per admitting provider This is a 76-year-old male with past medical history of chronic ulcer of leg, CKD, COPD, HTN, rheumatoid arthritis, Sjogren's disease, and 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 Patient reports that he has had this wound for several months, following at the wound clinic, he he has been experiencing increased pain, drainage, and redness at the side of the wound and therefore went to the wound clinic today and was asked to come to the hospital.? Patient reports that he noticed drainage about 5 days ago, the left lower extremity became significantly red and experience 10/10 constant nonradiating, pain that is not alleviated with Tylenol or ibuprofen.? Patient denies any fever but has had chills, reports no chest pain, no abdominal pain, some nausea with 1 episode of vomiting, no diarrhea constipation, no urinary symptoms.?On arrival to the ED patient hemodynamically stable with no significant abnormal vitals Labs are significant for WBC count of 14.4, creatinine of 1.28, hives otherwise unremarkable, ESR normal, CRP normal, Foot CT shows no acute osseous injury on CT findings suggestive of advanced osteomyelitis, soft tissue ulcers along the midfoot and overlaying the distal fibula, no loculated fluid collection, diffuse subcutaneous edema General surgery was consulted and evaluated the patient, planned for surgical debridement in a.m . Nonhealing wound of left lower extremity Hx of Sjogren's? Biopsy of the area showing soft tissue gangrenous necrosis, no osteomyelitis on CT s/p surgical debridement 01/02/22 Initially on IV antibiotics- vanco, zosyn switched to doxy/augmentin, completed course pain control an issue especially with dressing changes, had been slowly improving prior to Cardiac arrest switched to oral dilaudid to see if he can handle with dressing changes, also increased oxycodone to 10mg dressing changes per Dr. 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 argatroban now d/c continue warfarin with INR goal 2-3; continue coumadin monitor inr daily avoid heparin products Cardiac arrest 01/10/22 requiring intubation/PE/DVT secondary to HIT PEA/asystole, coded for 15 minutes with return of Rosc Secondary to massive bilateral pulmonary emboli with evidence of elevated right heart pressures and positive DVT in the left brachial vein, positive superficial thrombus in the left basilic and cephalic veins Had been maintained on subcutaneous heparin for DVT prophylaxis continue coumadin, INR goal 2-3 Left arm swelling secondary to DVT improving s/p disruption of bullae continue elevation Depression after cardiac arrest Seen by psychiatry team Resumed on Cymbalta 20 mg daily, Needs lots of encouragement. He should be OOB to chair and working with PT everyday Cellulitis. Resolved blood cultures negative rheumatoid arthritis continue home medication COPD, not in exacerbation continue inhalers DEACON resolved Pressure injury of buttock, stage 1 local wound care Time Spent with Patient Time attestation: Total time spent providing and/or coordinating discharge services: Discharge coordination time: Greater than 30 minutes Quality: Safe Use of Opioids Does Pt have an Active Cancer Diagnosis on the Problem List?: No Quality: Stroke Does the patient have a stroke diagnosis?: No Physical Exam Vital Signs: Vital Signs: Last Vital Signs Temp 97.7 F 01/26/22 11:24 Pulse 71 01/26/22 11:24 Resp 20 01/26/22 11:24 BP 113/70 01/26/22 11:24 Pulse Ox 94 01/26/22 11:24 O2 Del Method 01/26/22 11:24 O2 Flow Rate 2 01/19/22 23:35 FiO2 40 01/11/22 13:07 Oxygen Flow Rate 2 12/29/21 13:00 BMI result Body Mass Index 27.3 Appearing in no acute distress head is normocephalic atraumatic eyes pupils are PERRLA sclera is anicteric mouth throat mucous membranes are intact and moist neck is supple no lymphadenopathy, no JVD noted lung sounds are clear to auscultation heart regular rate rhythm, clear S1, S2 positive bowel sounds, abdomen is soft, nontender neuro patient is alert x3, no focal deficits Left hand wounds Left leg wound with granulating tissue and intact surrounding skin. DS: Data Data Completed and Pending Completed studies during hospitalization [Text1]: Pending at discharge 12/23/21 14:10 Surgical [PTH] Routine 01/02/22 11:17 Surgical [PTH] Routine Labs on day of discharge: Laboratory Results - last 24 hr 01/26/22 01/26/22 06:46 06:46 WBC 9.1 RBC 3.54 L Hgb 10.0 L Hct 31.3 L MCV 88.4 MCH 28.2 MCHC 31.9 RDW 14.3 Plt Count 215 MPV 8.6 L Absolute Nucleated RBC 0.000 Nucleated RBC % (auto) 0.0 PT 35.6 H INR 3.0 H Discharge Plan Discharge Anticipated Discharge Date/Time: 01/27/22 10:24 Patient Disposition: Xfer Inpatient Rehab Fac Discharge Diagnosis: Nonhealing wound of left lower ext and cellulitis Cardiac arrest Heparin induced thrombocytopenia DVT of left upper extremity Pulmonary embolus Cellulitis Referrals: [facility] [Other] - 1 Week Po,Kia Liu MD [Primary Care Provider] - 1 Week Discharge Medications: New warfarin [Jantoven] 4 mg Tablet 4 mg PO DAILY@1800 Qty: 30 0RF metoprolol tartrate 50 mg Tablet 50 mg PO BID Qty: 60 0RF Protocol: Hold for SBP/HR < HOLD for SBP < : 90 HOLD for HR < : 60 fentanyl 25 mcg/hr Patch 72 Hour 25 mcg transdermal Q72H Qty: 5 0RF Rx Instructions: Partial Fill upon patient request. oxycodone 10 mg tablet 10 mg PO Q4H PRN (Reason: pain) Qty: 24 0RF Rx Instructions: pain with dressing change hydromorphone 2 mg Tablet 2 mg PO DAILY PRN (Reason: Pain, Moderate (Pain Scale 4-6) Qty: 3 0RF Rx Instructions: Partial Fill upon patient request. Continued acetaminophen [Tylenol Extra Strength] 500 mg tablet 1,000 mg PO Q6H PRN (Reason: Pain (Scale Score 1-3)) albuterol sulfate [ProAir HFA] 90 mcg/actuation HFA aerosol inhaler 2 puff inhalation Q6H PRN (Reason: Shortness Of Breath) Anoro Ellipta 62.5-25 mcg/actuation blister with device 1 inh inhalation DAILY PRN (Reason: Shortness Of Breath) Actemra 80 mg/4 mL (20 mg/mL) solution 0 mg IV Q30D Label Comments: [place]- scheduled 12/2021 Rx Instructions: last dose on 12/02 duloxetine 20 mg capsule,delayed release(DR/EC) 20 mg PO BEDTIME baclofen 10 mg tablet 10 mg PO BID Qty: 60 0RF Discontinued prednisone 10 mg tablet See Taper PO DAILY Taper: Prednisone 20 mg daily for 4 Days and 0 Hour 10 mg daily for 7 Days and 0 Hour Rx Instructions: pt on prednisone taper. 20 mg daily until 12/25 and then on 12/26 start 10 mg daily x 7 days, then done. Discharge Orders: Discharge Order (Routine); Ordered 01/27/22 Ordered By: Aurora Puentes Diet: Advance to usual diet Activity on Discharge: As tolerated Stand Alone Forms: Patient Portal Discharge page Other Ambulatory Orders: Prothrombin Time INR (DAILY@0600) Timeframe: 20220128 Facility: [facility] - Location: Laboratory Ordered By: Aurora Puentes Prothrombin Time INR (DAILY@0600) Timeframe: 20220129 Facility: [facility] - Location: Laboratory Ordered By: Aurora Puentes Prothrombin Time INR (DAILY@0600) Timeframe: 20220130 Facility: [facility] - Location: Laboratory Ordered By: Aurora Puentes Care Plan Goals: Resolution of symptoms Health Concerns: Nonhealing wound of left lower ext and cellulitis Cardiac arrest Heparin induced thrombocytopenia DVT of left upper extremity Pulmonary embolus Cellulitis Plan of Treatment: Check INR daily until therapeutic between 2-3 Take all medications as prescribed Soak the dressings with NS on the 2 open wounds, left calf until these loosen. Remove silver alginate and replace. Cover with ABD and wrap Issac roll. Ok to do MWF. Premedicate with Dilaudid 2 mg PO 1 hour prior to dressing change Last dressing change 01/26/22 Assessment: See discharge summary Discharge Date/Time: 01/27/22 13:10
--- NOTE | 2022-01-26 14:16 | PC.NURSE ---
prn pain med administered per md verbal order prior to dressing change. MD changed pt's dressing and assessed pt. pt's at bedside. pt to be discharged around 1500. IV and tele removed, all belongings with pt. safety and fell precautions in place. pt repo'ed q2. call crane within reach. informed md sindy concepcion test req prior to discharge
[2022-01-26 14:52] LABS: COVID-19 Test Negative (Negative); IDNOW Serial# 9DD0AD1C
--- NOTE | 2022-01-26 14:59 | PM.EVENT ---
Event Note Date of Service: 01/26/22 Event Note: No new complaints I have changes his dressings Silver alginate placed He may be able to transfer to residential today They should continue with dressing changes to the left leg Premedicate 1st with Dilaudid, 2 mg about 1 hour prior to dressing change Cut out all the Issac roll Moisten the dressings to let it loose sent for several minutes Removed the dressings including the silver alginate dressings and changes a fresh alginate on both sites Cover the wounds with ABD pad Wrap the leg with Issac roll Dressing changes may be done Wednesday
[2022-01-26] MEDS: Warfarin Sodium 4 MG TABLET PO (17:44)
--- NOTE | 2022-01-26 22:07 | PC.NURSE ---
Pt upset that his discharge was pushed back to [phone]. Pt refusing ro leave but also refusing all care (vital signs, hs medications). Wants to speak to Nursing broadcast supervisor-Hunter marshallied.
[2022-01-27] VITALS: BP 148/93; PULSE 76; RESP 16; TEMP 36.4; O2SAT 93
[2022-01-27 04:00] VITALS: BP 125/81; PULSE 68; RESP 16; TEMP 36.2; O2SAT 93
[2022-01-27] MEDS: Omeprazole 40 MG CAPSULE.DR PO (06:27)
[2022-01-27 07:36] VITALS: BP 139/89; PULSE 70; RESP 16; TEMP 36.4; O2SAT 96
[2022-01-27] MEDS: predniSONE 10 MG TABLET 30 MG PO (09:16)
[2022-01-27] MEDS: Metoprolol Tartrate 50 MG TABLET PO (09:18)
--- NOTE | 2022-01-27 10:05 | MHC.CM.PN ---
Patient will be dc to [facility] today at noon via [facility]. Apparently when Patient arrived at the SNF last night after 10PM, he was sent back to [facility] (Do not accept Patients after 10PM).
== END 2022-01-27 13:10 | DRG 570 ==
LOC: HO.ED 17:45 → HO.EDOVER 22:51 → HO.S3 12-23 12:18 → HO.ICU 01-09 04:47 → HO.IMC 01-15 12:40 → HO.ICU 01-15 13:41 → HO.IMC 01-15 19:27 → HO.S3 01-26 23:38
PROVIDERS: Hospitalist; Internal Medicine; Internal Medicine Cardiovascular Disease; Internal Medicine Hypertension Specialist; Internal Medicine Pulmonary Disease; Physician Assistant; Physician Assistant Medical; Surgery; Admitting Provider Internal Medicine; Emergency Provider Emergency Medicine; PCP Internal Medicine; Visit Provider Nurse Practitioner Acute Care
PROC: 0JBP0ZZ Excision of Left Lower Leg Subcutaneous Tissue and Fascia, Open Approach (ICD-10-PCS; principal; 2021-12-23 13:30)
PROC: 0HBLXZZ Excision of Left Lower Leg Skin, External Approach (ICD-10-PCS; principal; 2022-01-02 10:20)
DX: L97.228 Non-pressure chronic ulcer of left calf with other specified severity (principal); I26.09 Other pulmonary embolism with acute cor pulmonale; I46.9 Cardiac arrest, cause unspecified; N17.0 Acute kidney failure with tubular necrosis; L03.116 Cellulitis of left lower limb; I96 Gangrene, not elsewhere classified; K52.1 Toxic gastroenteritis and colitis; I82.622 Acute embolism and thrombosis of deep veins of left upper extremity; I47.1 Supraventricular tachycardia; F32.9 Major depressive disorder, single episode, unspecified; M06.9 Rheumatoid arthritis, unspecified; M35.00 Sjogren syndrome, unspecified; I12.9 Hypertensive chronic kidney disease with stage 1 through stage 4 chronic kidney disease, or unspecified chronic kidney disease; R20.3 Hyperesthesia; T36.95XA Adverse effect of unspecified systemic antibiotic, initial encounter; L95.9 Vasculitis limited to the skin, unspecified; L89.301 Pressure ulcer of unspecified buttock, stage 1; D75.82 Heparin induced thrombocytopenia (HIT); E83.52 Hypercalcemia; N18.30 Chronic kidney disease, stage 3 unspecified; J44.9 Chronic obstructive pulmonary disease, unspecified; Z96.652 Presence of left artificial knee joint; Z91.14 Patient's other noncompliance with medication regimen; Z20.822 Contact with and (suspected) exposure to COVID-19; Z87.891 Personal history of nicotine dependence; Z79.899 Other long term (current) drug therapy
CPT/HCPCS: 36415; 70450; 71045; 71275; 73700; 80048; 80053; 80076; 80202; 81001; 82272; 82565; 82803; 82947; 83605; 83735; 83880; 84100; 84145; 84156; 84165; 84484; 85007; 85025; 85027; 85379; 85597; 85610; 85613; 85652; 85730; 86021; 86022; 86140; 86146; 86160; 87040; 87147; 87205; 87493; 87635; 88304; 88305; 89055; 93005; 93306; 93930; 93970; 94002; 94003; 94640; 96365; 96366; 96367; 96375; 97110; 97116; 97162; 97530; 99285; C1758; J0131; J0171; J0883; J1100; J1170; J1450; J2060; J2185; J2250; J2270; J2405; J2543; J2930; J3010; J3370; J3475; Q9967

== ENCOUNTER 2022-04-06 09:50 | Outpatient (REF) | payer MEDICARE, SELFPAY ==
[2022-04-06 11:22] LABS: MANUAL DIFF FLAG NO
[2022-04-06 11:33] LABS: Basophils Absolute Auto 0.1 X10*3/uL (0.0-0.2); Eosinophils Absolute Auto 0.2 X10*3/uL (0.0-0.4); Eosinophils Percent Auto 2.4 % (0-4); Hematocrit 43.4 % (42.0-52.0); Hemoglobin 13.2 g/dl (14.0-18.0); Imm Gran Abs Auto 0.03 X10*3/uL (0.00-0.03); Imm Gran Pct Auto 0.4 % (0.0-0.4); Immature Retic Fraction 15.7 % (2.3-13.4); Lymphocytes Absolute Auto 1.7 X10*3/uL (1.2-4.9); Lymphocytes Percent Auto 24.2 % (20-40); Mean Corpuscular HGB Conc 30.4 g/dl (31.0-36.0); Mean Corpuscular Hemoglobin 25.5 pg (27.0-33.0); Mean Corpuscular Volume 83.9 fL (80.0-98.0); Monocytes Absolute Auto 0.5 X10*3/uL (0.1-1.2); Monocytes Percent Auto 6.8 % (2-11); Neutrophils Absolute Auto 4.6 x10*3/uL (2.0-8.3); Neutrophils Percent Auto 65.2 % (45-73); Platelet Count 294 X10*3/uL (160-400); Red Blood Count 5.17 X10*6/uL (4.60-5.80); Red Cell Distribution Width 15.7 % (11.0-16.0); Retic HGB Equivalent 28.2 pg (30.0-35.0); Reticulocyte Percent 1.1 % (0.5-1.8); Reticulocytes Absolute 0.056 X10*6/uL (0.026-0.095); White Blood Count 7.1 X10*3/uL (4.8-10.8)
[2022-04-06 11:52] LABS: Alanine Aminotransferase 11 U/L (0-40); Albumin Level 4.2 g/dL (3.5-5.0); Alkaline Phosphatase 58 U/L (39-117); Anion Gap 15 (12-20); Aspartate Amino Transferase 12 U/L (5-37); Bilirubin Total 0.2 mg/dL (0.0-1.0); Blood Urea Nitrogen 23 mg/dL (9-16); C Reactive Protein 4.15 mg/dL (< or = 0.50); Calcium 9.8 mg/dL (8.4-10.2); Carbon Dioxide 25 mmol/L (22-29); Chloride 106 mmol/L (96-108); Cholesterol 176 mg/dL; Estimated Glomerular Filt Rate > 60; Glucose Random 96 mg/dL (60-115); HDL Cholesterol 43 mg/dL; Iron 37 mcg/dL (45-160); LDL Cholesterol Calculated 119 mg/dl; Percent Iron Saturation 11 % (15-50); Potassium 4.3 mmol/L (3.3-5.1); Sodium 142 mmol/L (135-145); Total Iron Binding Capacity 325 mcg/dL (228-428); Total Protein 7.2 g/dL (6.5-8.0); Triglycerides 72 mg/dL; Unsaturated Iron Binding 288 ug/dL
[2022-04-06 12:05] LABS: Alanine Aminotransferase 12 U/L (0-40); Alkaline Phosphatase 57 U/L (39-117); Aspartate Amino Transferase 13 U/L (5-37); Bilirubin Direct 0.2 mg/dL (0.0-0.5); Bilirubin Total 0.2 mg/dL (0.0-1.0); Blood Urea Nitrogen 23 mg/dL (9-16); Estimated Glomerular Filt Rate > 60; Total Protein 6.8 g/dL (6.5-8.0)
[2022-04-06 12:11] LABS: HBS Num1 1.01 mIU/mL (0-7.99); HBc Num1 0.17 S/CO (0.00-0.79); HBsAGNum1 0.23 S/CO (0.00-0.99); Hepatitis B Core Antibody Nonreactive (Nonreactive); Hepatitis B Surface Antigen Negative (Negative); ~Hepatitis B Surface Antibody NONREACTIVE (Nonreactive); ~Hepatitis C Antibody Nonreactive (Nonreactive)
[2022-04-06 12:17] LABS: Erythrocyte Sedimentation Rate 44 MM/HR (0-15)
[2022-04-06 12:18] LABS: Ferritin 57 ng/mL (20-250); Free T4 (Free Thyroxine) 0.96 ng/dL (0.71-1.85); Thyroid Stimulating Hormone 1.08 uIU/mL (0.32-4.0)
[2022-04-06 12:46] LABS: Folate 10.8 ng/mL (> or = 4.0); Vitamin B12 489 pg/mL (200-900)
[2022-04-09 15:35] LABS: TS Negative Control Passed; TS Panel A 0; TS Panel B 0; TS Positive Control Passed; TSpotTB Negative (Negative)
== END 2022-04-06 09:51 | disposition home or self-care (01) ==
LOC: HO.HMGCLDS 09:50
PROVIDERS: Absent Provider Physician Assistant; PCP Internal Medicine; Referring Provider Internal Medicine; Visit Provider Dermatology
DX: Z11.1 Encounter for screening for respiratory tuberculosis (principal); I10 Essential (primary) hypertension; I77.6 Arteritis, unspecified; R79.89 Other specified abnormal findings of blood chemistry; E78.00 Pure hypercholesterolemia, unspecified; Z79.899 Other long term (current) drug therapy
CPT/HCPCS: 36415; 80053; 80061; 80076; 82248; 82565; 82607; 82728; 82746; 83540; 84439; 84443; 84520; 85025; 85045; 85652; 86140; 86481; 86704; 86706; 86803; 87340

== ENCOUNTER 2022-05-04 13:24 | Outpatient (REF) | payer MEDICARE, SELFPAY ==
[2022-05-04 14:02] LABS: INTERNATIONAL NORM RATIO 2.4 (0.9-1.1); Prothrombin Time 28.2 SEC (10.0-13.1)
== END 2022-05-04 13:25 | disposition home or self-care (01) ==
LOC: HO.LAB 13:24
PROVIDERS: PCP Internal Medicine; Visit Provider Internal Medicine
DX: I26.09 Other pulmonary embolism with acute cor pulmonale (principal)
CPT/HCPCS: 36415; 85610

== ENCOUNTER 2022-05-05 09:29 | Outpatient (REF) | payer MEDICARE, SELFPAY ==
[2022-05-05 11:06] LABS: MANUAL DIFF FLAG NO
[2022-05-05 11:35] LABS: Basophils Absolute Auto 0.1 X10*3/uL (0.0-0.2); Basophils Percent Auto 0.8 % (0-2); Eosinophils Absolute Auto 0.1 X10*3/uL (0.0-0.4); Eosinophils Percent Auto 1.4 % (0-4); Hematocrit 41.6 % (42.0-52.0); Hemoglobin 12.7 g/dl (14.0-18.0); Imm Gran Abs Auto 0.02 X10*3/uL (0.00-0.03); Imm Gran Pct Auto 0.3 % (0.0-0.4); Lymphocytes Absolute Auto 1.9 X10*3/uL (1.2-4.9); Lymphocytes Percent Auto 24.4 % (20-40); Mean Corpuscular HGB Conc 30.5 g/dl (31.0-36.0); Mean Corpuscular Hemoglobin 24.9 pg (27.0-33.0); Mean Corpuscular Volume 81.4 fL (80.0-98.0); Mean Platelet Volume 9.5 fL (9.4-12.4); Monocytes Absolute Auto 0.6 X10*3/uL (0.1-1.2); Monocytes Percent Auto 7.8 % (2-11); Neutrophils Absolute Auto 5.1 x10*3/uL (2.0-8.3); Neutrophils Percent Auto 65.3 % (45-73); Platelet Count 302 X10*3/uL (160-400); Red Blood Count 5.11 X10*6/uL (4.60-5.80); Red Cell Distribution Width 15.8 % (11.0-16.0); White Blood Count 7.7 X10*3/uL (4.8-10.8)
[2022-05-05 11:55] LABS: Alanine Aminotransferase 12 U/L (0-40); Albumin Level 4.2 g/dL (3.5-5.0); Alkaline Phosphatase 50 U/L (39-117); Anion Gap 15 (12-20); Aspartate Amino Transferase 14 U/L (5-37); Bilirubin Direct < 0.2 mg/dL (0.0-0.5); Bilirubin Total 0.3 mg/dL (0.0-1.0); Blood Urea Nitrogen 21 mg/dL (9-16); Calcium 9.7 mg/dL (8.4-10.2); Carbon Dioxide 26 mmol/L (22-29); Chloride 106 mmol/L (96-108); Estimated Glomerular Filt Rate > 60; Glucose Random 93 mg/dL (60-115); Potassium 4.5 mmol/L (3.3-5.1); Sodium 142 mmol/L (135-145)
== END 2022-05-05 09:30 | disposition home or self-care (01) ==
LOC: HO.HMGCLDS 09:29
PROVIDERS: Absent Provider Physician Assistant; PCP Internal Medicine; Visit Provider Dermatology
DX: Z79.899 Other long term (current) drug therapy (principal)
CPT/HCPCS: 36415; 80053; 82248; 85025

== ENCOUNTER 2022-06-01 08:27 | Outpatient (REF) | payer MEDICARE, SELFPAY ==
[2022-06-01 11:30] LABS: MANUAL DIFF FLAG NO
[2022-06-01 11:55] LABS: Basophils Absolute Auto 0.1 X10*3/uL (0.0-0.2); Basophils Percent Auto 0.6 % (0-2); Eosinophils Absolute Auto 0.1 X10*3/uL (0.0-0.4); Eosinophils Percent Auto 0.9 % (0-4); Hematocrit 44.6 % (42.0-52.0); Hemoglobin 13.5 g/dl (14.0-18.0); Imm Gran Abs Auto 0.02 X10*3/uL (0.00-0.03); Imm Gran Pct Auto 0.3 % (0.0-0.4); Lymphocytes Absolute Auto 2.1 X10*3/uL (1.2-4.9); Lymphocytes Percent Auto 26.3 % (20-40); Mean Corpuscular HGB Conc 30.3 g/dl (31.0-36.0); Mean Corpuscular Hemoglobin 24.7 pg (27.0-33.0); Mean Corpuscular Volume 81.5 fL (80.0-98.0); Mean Platelet Volume 9.5 fL (9.4-12.4); Monocytes Absolute Auto 0.6 X10*3/uL (0.1-1.2); Monocytes Percent Auto 7.2 % (2-11); Neutrophils Absolute Auto 5.1 x10*3/uL (2.0-8.3); Neutrophils Percent Auto 64.7 % (45-73); Platelet Count 346 X10*3/uL (160-400); Red Blood Count 5.47 X10*6/uL (4.60-5.80); Red Cell Distribution Width 16.6 % (11.0-16.0); White Blood Count 7.9 X10*3/uL (4.8-10.8)
[2022-06-01 12:21] LABS: Alanine Aminotransferase 13 U/L (0-40); Albumin Level 4.5 g/dL (3.5-5.0); Alkaline Phosphatase 56 U/L (39-117); Anion Gap 15 (12-20); Aspartate Amino Transferase 15 U/L (5-37); Bilirubin Total 0.4 mg/dL (0.0-1.0); Blood Urea Nitrogen 23 mg/dL (9-16); Calcium 9.8 mg/dL (8.4-10.2); Carbon Dioxide 27 mmol/L (22-29); Chloride 105 mmol/L (96-108); Cholesterol 191 mg/dL; Estimated Glomerular Filt Rate 58; Glucose Fasting 95 mg/dL (60-99); HDL Cholesterol 41 mg/dL; LDL Cholesterol Calculated 131 mg/dl; Potassium 4.8 mmol/L (3.3-5.1); Sodium 142 mmol/L (135-145); Total Protein 7.5 g/dL (6.5-8.0); Triglycerides 96 mg/dL
== END 2022-06-01 08:28 | disposition home or self-care (01) ==
LOC: HO.HMGCLDS 08:27
PROVIDERS: Absent Provider Physician Assistant; PCP Internal Medicine; Referring Provider Surgery; Visit Provider Dermatology
DX: Z79.899 Other long term (current) drug therapy (principal)
CPT/HCPCS: 36415; 80053; 80061; 85025

== ENCOUNTER → 2022-06-19 14:53 | Outpatient (BNVA) | payer MEDICARE, SELFPAY | PROVIDERS: PCP Internal Medicine; Visit Provider Nurse Practitioner Family | DX: L97.929 Non-pressure chronic ulcer of unspecified part of left lower leg with unspecified severity (principal); S81.802A Unspecified open wound, left lower leg, initial encounter; M35.00 Sjogren syndrome, unspecified; M79.605 Pain in left leg; G62.9 Polyneuropathy, unspecified; M06.9 Rheumatoid arthritis, unspecified; G89.29 Other chronic pain | CPT/HCPCS: 99212 ==

== ENCOUNTER 2022-07-02 11:48 | Outpatient (REF) | payer MEDICARE, SELFPAY ==
--- NOTE | 2022-07-02 08:15 | EMG_ITS ---
Bilateral tibial and peroneal motor studies were performed. Bilateral sural studies were performed and needle examination was performed on few muscles and each leg. IMPRESSION: This study was somewhat limited because of extensive pathology on his left leg. Because of this, I also tested his right leg for comparison. There was no significant difference between the legs. 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 MD DIRK Davis/ARJUNL / [id number]
== END 2022-07-02 11:49 | disposition home or self-care (01) ==
LOC: HO.NEURO 11:48
PROVIDERS: PCP Internal Medicine; Visit Provider Nurse Practitioner Family
DX: G62.9 Polyneuropathy, unspecified (principal); M79.605 Pain in left leg; G89.29 Other chronic pain
CPT/HCPCS: 95886; 95910

== ENCOUNTER → 2022-07-03 11:49 | Outpatient (BNVA) | payer MEDICARE, SELFPAY | PROVIDERS: PCP Internal Medicine; Visit Provider Nurse Practitioner Family | DX: G60.8 Other hereditary and idiopathic neuropathies (principal); I87.2 Venous insufficiency (chronic) (peripheral); I12.9 Hypertensive chronic kidney disease with stage 1 through stage 4 chronic kidney disease, or unspecified chronic kidney disease; N18.30 Chronic kidney disease, stage 3 unspecified; G89.29 Other chronic pain; M79.605 Pain in left leg; L97.421 Non-pressure chronic ulcer of left heel and midfoot limited to breakdown of skin; L89.301 Pressure ulcer of unspecified buttock, stage 1; Z57.4 Occupational exposure to toxic agents in agriculture | CPT/HCPCS: Q3014 ==

== ENCOUNTER → 2022-07-20 15:37 | Outpatient (BNVA) | payer MEDICARE, SELFPAY | PROVIDERS: PCP Internal Medicine; Visit Provider Nurse Practitioner Family | DX: M79.662 Pain in left lower leg (principal); G89.29 Other chronic pain; L89.301 Pressure ulcer of unspecified buttock, stage 1; I87.2 Venous insufficiency (chronic) (peripheral); I26.09 Other pulmonary embolism with acute cor pulmonale; I12.9 Hypertensive chronic kidney disease with stage 1 through stage 4 chronic kidney disease, or unspecified chronic kidney disease; N18.30 Chronic kidney disease, stage 3 unspecified; Z87.891 Personal history of nicotine dependence; Z99.3 Dependence on wheelchair | CPT/HCPCS: 99212 ==

== ENCOUNTER 2022-07-28 10:27 | Outpatient (REF) | payer MEDICARE, SELFPAY ==
[2022-07-28 11:49] LABS: MANUAL DIFF FLAG NO
[2022-07-28 12:04] LABS: Basophils Absolute Auto 0.1 X10*3/uL (0.0-0.2); Basophils Percent Auto 0.8 % (0-2); Eosinophils Absolute Auto 0.2 X10*3/uL (0.0-0.4); Eosinophils Percent Auto 2.1 % (0-4); Hematocrit 39.5 % (42.0-52.0); Hemoglobin 12.6 g/dl (14.0-18.0); Imm Gran Abs Auto 0.04 X10*3/uL (0.00-0.03); Imm Gran Pct Auto 0.5 % (0.0-0.4); Lymphocytes Absolute Auto 1.9 X10*3/uL (1.2-4.9); Lymphocytes Percent Auto 24.1 % (20-40); Mean Corpuscular HGB Conc 31.9 g/dl (31.0-36.0); Mean Corpuscular Hemoglobin 26.7 pg (27.0-33.0); Mean Corpuscular Volume 83.7 fL (80.0-98.0); Mean Platelet Volume 9.2 fL (9.4-12.4); Monocytes Absolute Auto 0.6 X10*3/uL (0.1-1.2); Monocytes Percent Auto 7.2 % (2-11); Neutrophils Absolute Auto 5.2 x10*3/uL (2.0-8.3); Neutrophils Percent Auto 65.3 % (45-73); Platelet Count 322 X10*3/uL (160-400); Red Blood Count 4.72 X10*6/uL (4.60-5.80); White Blood Count 7.9 X10*3/uL (4.8-10.8)
[2022-07-28 14:16] LABS: Alanine Aminotransferase 13 U/L (0-40); Albumin Level 4.2 g/dL (3.5-5.0); Alkaline Phosphatase 60 U/L (39-117); Anion Gap 12 (12-20); Aspartate Amino Transferase 15 U/L (5-37); Bilirubin Total 0.4 mg/dL (0.0-1.0); Blood Urea Nitrogen 18 mg/dL (9-16); Calcium 9.7 mg/dL (8.4-10.2); Carbon Dioxide 27 mmol/L (22-29); Chloride 106 mmol/L (96-108); Cholesterol 178 mg/dL; Estimated Glomerular Filt Rate 59; Glucose Random 92 mg/dL (60-115); HDL Cholesterol 42 mg/dL; LDL Cholesterol Calculated 111 mg/dl; Potassium 4.6 mmol/L (3.3-5.1); Sodium 140 mmol/L (135-145); Triglycerides 129 mg/dL
== END 2022-07-28 10:28 | disposition home or self-care (01) ==
LOC: HO.HMGCLDS 10:27
PROVIDERS: PCP Internal Medicine; Visit Provider Dermatology
DX: Z79.899 Other long term (current) drug therapy (principal)
CPT/HCPCS: 36415; 80053; 80061; 85025

== ENCOUNTER 2022-08-03 14:08 | Outpatient (REF) | payer MEDICARE, SELFPAY ==
--- NOTE | ~2022-08-03 | US_ITS ---
EXAMINATION: US VENOUS WITH DOPPLER UPPER EXTREMITY, LEFT CLINICAL INFORMATION: History of DVT. COMPARISON: Upper extremity venous ultrasound 01/10/2022 TECHNIQUE: Ultrasound of the upper extremity is performed using compression sonography and color and pulse Doppler flow with assessment of augmentation of flow. There is also imaging and Doppler assessment of the jugular and subclavian veins. Spectral analysis with color-flow imaging is performed. FINDINGS: There is residual chronic appearing thrombus in the distal brachial veins. Residual chronic appearing occlusive thrombus throughout the imaged cephalic vein and chronic appearing residual thrombus in the proximal and mid portion of the basilic vein. There is normal flow in the internal jugular and subclavian veins. The axillary vein is also patent. US/US venous duplex UE LT IMPRESSION: 1. Residual chronic appearing thrombus in the distal brachial veins, overall improved since prior study. 2. Residual chronic appearing occlusive thrombus throughout the imaged cephalic vein and proximal and mid portion of the basilic vein. 3. No new sites of venous thrombosis.
== END 2022-08-03 14:09 | disposition home or self-care (01) ==
LOC: HO.US 14:08
PROVIDERS: PCP Internal Medicine; Visit Provider Internal Medicine
DX: I82.402 Acute embolism and thrombosis of unspecified deep veins of left lower extremity (principal)
CPT/HCPCS: 93971

== ENCOUNTER → 2022-08-13 14:25 | Outpatient (BNVA) | payer MEDICARE, SELFPAY | PROVIDERS: PCP Internal Medicine; Visit Provider Student in an Organized Health Care Education/Training Program | DX: L88 Pyoderma gangrenosum (principal); M06.9 Rheumatoid arthritis, unspecified | CPT/HCPCS: 99202 ==

== ENCOUNTER → 2022-08-17 10:21 | Outpatient (BNVA) | payer MEDICARE, SELFPAY | PROVIDERS: PCP Internal Medicine; Visit Provider Nurse Practitioner Family | DX: G89.29 Other chronic pain (principal); M79.605 Pain in left leg; L88 Pyoderma gangrenosum; G62.9 Polyneuropathy, unspecified; M06.9 Rheumatoid arthritis, unspecified; S81.802A Unspecified open wound, left lower leg, initial encounter; Z79.899 Other long term (current) drug therapy | CPT/HCPCS: 99212 ==

== ENCOUNTER → 2022-09-03 13:31 | Outpatient (BNVA) | payer MEDICARE, SELFPAY | PROVIDERS: PCP Internal Medicine; Visit Provider Nurse Practitioner Family | DX: Z13.89 Encounter for screening for other disorder (principal) ==

== ENCOUNTER → 2022-09-29 12:51 | Outpatient (BNVA) | payer MEDICARE, SELFPAY | PROVIDERS: PCP Internal Medicine; Visit Provider Nurse Practitioner Family | DX: F11.20 Opioid dependence, uncomplicated (principal); M06.9 Rheumatoid arthritis, unspecified; L88 Pyoderma gangrenosum; G62.9 Polyneuropathy, unspecified; M79.605 Pain in left leg; G89.29 Other chronic pain | CPT/HCPCS: 99212 ==

== ENCOUNTER 2022-10-22 11:54 | Outpatient (REF) | payer MEDICARE, SELFPAY ==
[2022-10-22 12:58] LABS: MANUAL DIFF FLAG NO
[2022-10-22 13:13] LABS: Estimated Average Glucose 114 mg/dL; Hemoglobin A1c % 5.6 %
[2022-10-22 13:17] LABS: Basophils Absolute Auto 0.1 X10*3/uL (0.0-0.2); Eosinophils Absolute Auto 0.1 X10*3/uL (0.0-0.4); Eosinophils Percent Auto 0.8 % (0-4); Hematocrit 42.3 % (42.0-52.0); Hemoglobin 13.7 g/dl (14.0-18.0); Imm Gran Abs Auto 0.05 X10*3/uL (0.00-0.03); Imm Gran Pct Auto 0.7 % (0.0-0.4); Lymphocytes Absolute Auto 2.5 X10*3/uL (1.2-4.9); Lymphocytes Percent Auto 34.3 % (20-40); Mean Corpuscular HGB Conc 32.4 g/dl (31.0-36.0); Mean Corpuscular Hemoglobin 28.3 pg (27.0-33.0); Mean Corpuscular Volume 87.4 fL (80.0-98.0); Mean Platelet Volume 10.7 fL (9.4-12.4); Monocytes Absolute Auto 0.6 X10*3/uL (0.1-1.2); Monocytes Percent Auto 8.5 % (2-11); Neutrophils Absolute Auto 3.9 x10*3/uL (2.0-8.3); Neutrophils Percent Auto 54.7 % (45-73); Platelet Count 211 X10*3/uL (160-400); Red Blood Count 4.84 X10*6/uL (4.60-5.80); Red Cell Distribution Width 15.6 % (11.0-16.0); White Blood Count 7.2 X10*3/uL (4.8-10.8)
[2022-10-22 13:45] LABS: Alanine Aminotransferase 18 U/L (0-40); Albumin Level 4.5 g/dL (3.5-5.0); Alkaline Phosphatase 66 U/L (39-117); Anion Gap 13 (12-20); Aspartate Amino Transferase 17 U/L (5-37); Bilirubin Total 0.6 mg/dL (0.0-1.0); Blood Urea Nitrogen 22 mg/dL (9-16); C Reactive Protein 0.99 mg/dL (< or = 0.50); Calcium 9.6 mg/dL (8.4-10.2); Carbon Dioxide 23 mmol/L (22-29); Chloride 108 mmol/L (96-108); Estimated Glomerular Filt Rate 47; Glucose Random 91 mg/dL (60-115); Potassium 4.5 mmol/L (3.3-5.1); Rheumatoid Factor < 13.0 IU/mL (<15.0); Sodium 139 mmol/L (135-145); Total Protein 7.2 g/dL (6.5-8.0)
[2022-10-22 13:55] LABS: Erythrocyte Sedimentation Rate 12 MM/HR (0-15)
[2022-10-22 14:29] LABS: Appearance Urine Clear; Color Urine Yellow; Glucose Urine UA Negative (Negative); Leukocyte Esterase Urine Negative (Negative); Nitrite Urine Negative (Negative); Specific Gravity - Urine >= 1.030 (1.005-1.025); Urine Blood Negative (Negative); Urine Ketones Trace mg/dL (Negative); Urine Protein Trace mg/dL (Neg-Trace)
[2022-10-22 14:35] LABS: Bacteria Urine None Seen (None Seen); Hyaline Casts Urine 0-2 /LPF (0-2); RBC Urine 0-2 /HPF (0-2); Squamous Epithelial Cell Urine 0-2 /HPF (0-2); WBC Urine 0-5 /HPF (0-5)
[2022-10-22 15:50] LABS: Creatinine Urine 270.27 mg/dL; Protein/Creatinine Ratio, Ur 0.05 (<0.2); Total Protein Urine Random 14 mg/dL (<12)
[2022-10-23 08:21] LABS: HBS Num1 0.31 mIU/mL (0-7.99); HBc Num1 0.13 S/CO (0.00-0.79); HBsAGNum1 0.43 S/CO (0.00-0.99); Hepatitis A Antibody IgM 0.14 Index (0-0.79); Hepatitis B Core Antibody Nonreactive (Nonreactive); Hepatitis B Surface Antigen Negative (Negative); ~HepC Num1 0.13 S/CO (0.00-0.79); ~Hepatitis A Antibody IgM Nonreactive (Nonreactive); ~Hepatitis B Surface Antibody NONREACTIVE (Nonreactive); ~Hepatitis C Antibody Nonreactive (Nonreactive)
[2022-10-24 16:54] LABS: TS Negative Control Passed; TS Panel A 1; TS Panel B 1; TS Positive Control Passed; TSpotTB Negative (Negative)
[2022-10-25 02:13] LABS: Complement C3 158 mg/dL (82-185)
[2022-10-26 14:59] LABS: Cyclic Citrullinated Peptide <16 UNITS
[2022-10-27 15:18] LABS: Anti Nuclear Antibody Screen POSITIVE (NEGATIVE)
[2022-10-27 19:38] LABS: Anti DNA DS Antibody <1 IU/mL; Antibody to SS-A Antigen >8.0 POS AI (<1.0 NEG); Antibody to SS-B Antigen <1.0 NEG AI (<1.0 NEG); Myeloperoxidase Antibody <1.0 AI; Proteinase 3 PR3 Antibodies <1.0 AI; SM/Ribonucleoprotein Ab <1.0 NEG AI (<1.0 NEG); Smith Protein <1.0 NEG AI (<1.0 NEG)
[2022-10-27 21:58] LABS: HLA B27 Negative (Negative)
[2022-10-27 23:43] LABS: Prot Elec - Albumin 4.5 g/dL (3.8-4.8); Prot Elec - Alpha1 0.3 g/dL (0.2-0.3); Prot Elec - Alpha2 0.7 g/dL (0.5-0.9); Prot Elec - Beta 1 0.5 g/dL (0.4-0.6); Prot Elec - Beta 2 0.4 g/dL (0.2-0.5); Prot Elec - Gamma 0.9 g/dL (0.8-1.7); Prot Elec - Total Protein 7.2 g/dL (6.1-8.1)
[2022-10-28 09:08] LABS: IgA 343 mg/dL (70-320); IgG 1010 mg/dL (600-1540); IgM 81 mg/dL (50-300)
[2022-10-28 11:12] LABS: Cardiolipin IgG Ab <2.0 GPL-U/mL; Cardiolipin IgM Ab <2.0 MPL-U/mL
[2022-10-28 13:33] LABS: DNAds, Crithidia Antibody Negative (Negative)
[2022-10-28 23:24] LABS: DRVVT 1:1 Mix CORRECTED (CORRECTED); DRVVT Confirmation Positive (Negative); PTT (LAC) Screen 37 sec (<=40)
[2022-10-29 14:13] LABS: Beta-2 Glycoprotein IgA <2.0 U/mL (<20.0); Beta-2 Glycoprotein IgG <2.0 U/mL (<20.0); Beta-2 Glycoprotein IgM <2.0 U/mL (<20.0)
== END 2022-10-22 11:55 | disposition home or self-care (01) ==
LOC: HO.LAB 11:54
PROVIDERS: PCP Internal Medicine; Visit Provider Student in an Organized Health Care Education/Training Program
DX: M32.9 Systemic lupus erythematosus, unspecified (principal); I77.6 Arteritis, unspecified; D68.61 Antiphospholipid syndrome; M06.9 Rheumatoid arthritis, unspecified; M45.9 Ankylosing spondylitis of unspecified sites in spine; R73.03 Prediabetes; Z11.59 Encounter for screening for other viral diseases; Z72.89 Other problems related to lifestyle; Z11.7 Encounter for testing for latent tuberculosis infection
CPT/HCPCS: 36415; 80053; 81001; 82595; 82784; 83036; 84156; 84165; 85025; 85597; 85613; 85652; 85730; 86021; 86038; 86039; 86140; 86146; 86147; 86160; 86200; 86225; 86235; 86255; 86334; 86431; 86481; 86704; 86706; 86709; 86803; 86812; 87340

== ENCOUNTER → 2022-10-27 10:10 | Outpatient (BNVA) | payer MEDICARE, SELFPAY | PROVIDERS: PCP Internal Medicine; Visit Provider Nurse Practitioner Family | DX: Z51.81 Encounter for therapeutic drug level monitoring (principal); Z79.899 Other long term (current) drug therapy | CPT/HCPCS: 99211 ==

== ENCOUNTER → 2022-11-06 10:29 | Outpatient (BNVA) | payer MEDICARE, SELFPAY | PROVIDERS: PCP Internal Medicine; Visit Provider Student in an Organized Health Care Education/Training Program | DX: L88 Pyoderma gangrenosum (principal); M06.9 Rheumatoid arthritis, unspecified; N18.30 Chronic kidney disease, stage 3 unspecified | CPT/HCPCS: 99212 ==

== ENCOUNTER → 2022-11-24 10:26 | Outpatient (BNVA) | payer MEDICARE, SELFPAY | PROVIDERS: PCP Internal Medicine; Visit Provider Nurse Practitioner Family | DX: Z51.81 Encounter for therapeutic drug level monitoring (principal); F11.20 Opioid dependence, uncomplicated; L88 Pyoderma gangrenosum; G62.9 Polyneuropathy, unspecified; M06.9 Rheumatoid arthritis, unspecified; S81.802D Unspecified open wound, left lower leg, subsequent encounter | CPT/HCPCS: 99212 ==

== ENCOUNTER 2022-12-29 08:37 | Outpatient (REF) | payer MEDICARE, SELFPAY ==
[2022-12-29 11:27] LABS: MANUAL DIFF FLAG NO
[2022-12-29 11:43] LABS: Basophils Percent Auto 0.5 % (0-2); Eosinophils Absolute Auto 0.1 X10*3/uL (0.0-0.4); Eosinophils Percent Auto 0.8 % (0-4); Hematocrit 44.4 % (42.0-52.0); Hemoglobin 14.1 g/dl (14.0-18.0); Imm Gran Abs Auto 0.07 X10*3/uL (0.00-0.03); Imm Gran Pct Auto 0.9 % (0.0-0.4); Lymphocytes Absolute Auto 1.8 X10*3/uL (1.2-4.9); Lymphocytes Percent Auto 23.3 % (20-40); Mean Corpuscular HGB Conc 31.8 g/dl (31.0-36.0); Mean Corpuscular Hemoglobin 28.2 pg (27.0-33.0); Mean Corpuscular Volume 88.8 fL (80.0-98.0); Mean Platelet Volume 9.5 fL (9.4-12.4); Monocytes Absolute Auto 0.6 X10*3/uL (0.1-1.2); Monocytes Percent Auto 7.4 % (2-11); Neutrophils Absolute Auto 5.2 x10*3/uL (2.0-8.3); Neutrophils Percent Auto 67.1 % (45-73); Platelet Count 304 X10*3/uL (160-400); Red Cell Distribution Width 14.8 % (11.0-16.0); White Blood Count 7.7 X10*3/uL (4.8-10.8)
[2022-12-29 12:16] LABS: Alanine Aminotransferase 23 U/L (0-40); Albumin Level 4.3 g/dL (3.5-5.0); Alkaline Phosphatase 57 U/L (39-117); Anion Gap 16 (12-20); Aspartate Amino Transferase 18 U/L (5-37); Bilirubin Total 0.5 mg/dL (0.0-1.0); Blood Urea Nitrogen 17 mg/dL (9-16); Calcium 9.9 mg/dL (8.4-10.2); Carbon Dioxide 23 mmol/L (22-29); Chloride 108 mmol/L (96-108); Cholesterol 195 mg/dL; Estimated Glomerular Filt Rate 52; Glucose Random 101 mg/dL (60-115); HDL Cholesterol 40 mg/dL; LDL Cholesterol Calculated 128 mg/dl; Potassium 4.5 mmol/L (3.3-5.1); Sodium 142 mmol/L (135-145); Total Protein 7.5 g/dL (6.5-8.0); Triglycerides 138 mg/dL
== END 2022-12-29 08:38 | disposition home or self-care (01) ==
LOC: HO.HMGCLDS 08:37
PROVIDERS: PCP Internal Medicine; Visit Provider Dermatology
DX: Z79.899 Other long term (current) drug therapy (principal); G62.9 Polyneuropathy, unspecified; M79.605 Pain in left leg; M06.9 Rheumatoid arthritis, unspecified; F11.90 Opioid use, unspecified, uncomplicated
CPT/HCPCS: 36415; 80053; 80061; 85025; 99212

== ENCOUNTER 2023-02-02 10:31 | Outpatient (AMB) | payer MEDICARE, SELFPAY ==
--- NOTE | 2023-02-02 10:31 | A.OFFVIS_ITS ---
Intake Vital Signs 02/02/23 10:41 02/02/23 11:02 Height 5 ft 6 in Weight 180 lb BMI 29.0 BP 105/66 110/60 Blood Pressure Location Rt brachial Lt brachial Position Sitting Sitting Pulse 74 76 Pulse Source Pulse Oximeter Pulse Oximeter Pulse Oximetry (%) 91 L 93 Oxygen Delivery Method Room Air Room Air Comment weight per pt BP manually done Intake Visit Reasons: Pill count Intake Note: Sarath comes in today for a pill count to hydromorphone, patient should have 0 tablets and presents with 8 tablets which he last took Wednesday01/31/23. Pain today 7.10. 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 Patient is supposed to have #0 pills, in his possession has #8 pills. Patient takes hydromorphone 2 mg TID prn for wound care and severe pain related to chronic, non healing left lateral lower extremity ulcer. This demonstrates a responsible attitude in regards to the medication regimen. Patient reports reasonable pain relief on his regime with no noted side effects. He also takes gabapentin 600 mg during the day and 1200 mg at bedtime. Patient reports he takes hydromorphone only for wound care and dressing changes. Denies any constipation, nausea, sedation, dizziness, or urinary retention. Patient reports fluctuating blood pressure readings at home and has notified his PCP with elevated BP readings. Denies any chest pain, shortness of breaths, chest tightness or dizziness. He is planning to follow up with Cardiology provider as well. [place] [facility] [place] [facility] [facility] Medical History Acute pulmonary embolism Acute pulmonary embolism with acute cor pulmonale Cardiac arrest Chronic ulcer of leg CKD (chronic kidney disease) stage 3, GFR 30-59 ml/min COPD (chronic obstructive pulmonary disease) Deep vein thrombosis 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 Elevated serum creatinine HTN (hypertension) Leg pain, bilateral MDD (major depressive disorder), single episode Pressure injury of buttock, stage 1 Rheumatoid arthritis Sjogren's disease Surgical History History of ankle surgery History of hernia repair History of left knee replacement Family History Sister Breast cancer Father Aneurysm Mother Angina at rest Other No family history of coronary artery disease Social History Household Members: Spouse Housing: House Do you presently have visiting nurse or other home services: No Alcohol intake: current Alcohol intake frequency: holidays/special occasions only Patient Tobacco Use Status: Former Tobacco user Tobacco use type: Cigarette Years Smoked: quit 2018 e-Cigarette/Vaping Use: Never Used Advance Directives Date on File: 12/23/21 service: Yes Current occupational status: retired Cognitive needs: Yes (cane) Hearing needs: No Vision needs: Yes (Pt wear glasses. ) Review of Systems Const All systems reviewed & are unremarkable except as noted in HPI and below Physical Exam Vital Signs: Last Vital Signs Pulse 74 02/02/23 10:41 BP 105/66 02/02/23 10:41 Pulse Ox 91 L 02/02/23 10:41 Oxygen Delivery Method Room Air 02/02/23 10:41 BMI result Body Mass Index 29.0 General: Appears afebrile. Alert and oriented. Mood and affect appropriate. Follows and participates in conversation appropriately. Respiratory effort is unlabored. No cough. Sitting comfortably in the wheelchair. Extrem Other: Patient's spouse iPhone photo taken of patient's LLE on 01/27/23: Psych Appearance: grossly normal and well kempt Mental Status: mental status grossly normal Speech and movement: Normal speech and movement present Affect: normal affect Attitude: cooperative Thought process: Normal thought process present Thought content: Normal thought content present, suicidality (none), no hallucinations and No Depressive thoughts present Assessment & Plan Assessment & Plan (1) Peripheral neuropathy: Code(s): G62.9 - Polyneuropathy, unspecified (2) Chronic pain of left lower extremity: Code(s): M79.605 - Pain in left leg; G89.29 - Other chronic pain (3) Chronic, continuous use of opioids: Code(s): F11.90 - Opioid use, unspecified, uncomplicated (4) Non-healing wound of left lower extremity: Code(s): S81.802A - Unspecified open wound, left lower leg, initial encounter (5) Pyoderma gangrenosum: Code(s): L88 - Pyoderma gangrenosum Plan Patient has shown accountability for his medication regimen and the pill count was accurate. There is no evidence of misuse, abuse or diversion at this time. MassPat reviewed. Refill for hydrocodone sent today with #60 pills/30 days as patient only takes this for wound dressing changes and wound therapy sessions. Continue gabapentin to 600 mg day and 1200 mg bedtime. All questions were answered and the patient is in agreement with the plan. Will follow up in 4 weeks for a pill count or sooner if needed. Medications: Refilled gabapentin 600 mg PO TID 30 days 90 tabs 0RF pain G62.9 - Polyneuropathy, unspecified, G89.29 - Other chronic pain, M79.605 - Pain in left leg hydromorphone Partial Fill upon patient request. 2 mg PO TID 30 days PRN 60 tabs 0RF Pain, Moderate (Pain Scale 4-6 F11.90 - Opioid use, unspecified, uncomplicated, G89.29 - Other chronic pain, L88 - Pyoderma gangrenosum, M79.605 - Pain in left leg Coding Level of Care Code Est Pt Level 4 (33395) Diagnoses Peripheral neuropathy G62.9 Chronic pain of left lower extremity M79.605; G89.29 Chronic, continuous use of opioids F11.90 Non-healing wound of left lower extremity S81.802A Pyoderma gangrenosum L88
[2023-02-02 10:41] VITALS: BP 105/66; PULSE 74; O2SAT 91; BMI 29.0
[2023-02-02 11:02] VITALS: BP 110/60; PULSE 76; O2SAT 93
== END 2023-02-02 10:58 | disposition home or self-care (01) ==
PROVIDERS: PCP Internal Medicine; Visit Provider Nurse Practitioner Family
DX: G62.9 Polyneuropathy, unspecified (principal); M79.605 Pain in left leg; G89.29 Other chronic pain; Z79.891 Long term (current) use of opiate analgesic; S81.802A Unspecified open wound, left lower leg, initial encounter; L88 Pyoderma gangrenosum
CPT/HCPCS: 99214

== ENCOUNTER → 2023-02-02 10:31 | Outpatient (BNVA) | payer MEDICARE, SELFPAY | PROVIDERS: PCP Internal Medicine; Visit Provider Nurse Practitioner Family | DX: S81.802A Unspecified open wound, left lower leg, initial encounter (principal); L88 Pyoderma gangrenosum; G62.9 Polyneuropathy, unspecified; G89.29 Other chronic pain; M79.605 Pain in left leg; Z79.891 Long term (current) use of opiate analgesic | CPT/HCPCS: 99212 ==

== ENCOUNTER 2023-02-09 11:28 | Outpatient (AMB) | payer MEDICARE, SELFPAY ==
[2023-02-09 11:30] VITALS: BP 106/62; PULSE 60; RESP 16; TEMP 36.4; O2SAT 95; BMI 29.5
--- NOTE | 2023-02-09 11:30 | A.OFFVIS_ITS ---
Intake Vital Signs 02/09/23 11:30 Height 5 ft 6 in Weight 183 lb BMI 29.5 BP 106/62 Blood Pressure Location Lt brachial Position Sitting Respiration 16 Pulse 60 Pulse Source Pulse Oximeter Temp 97.5 F Temp Source Temporal Artery Scan Pulse Oximetry (%) 95 Oxygen Delivery Method Room Air Intake Visit Reasons: 3 mnts f/u for PG -LVM with appt Allergies heparin (porcine) Allergy (Severe, Verified 02/09/23 11:37) HIT Medication List - Last Reconciled 02/09/23 by oKfi Horne MD acetaminophen (Tylenol Extra Strength) 1,000 mg PO Q6H PRN albuterol sulfate 90 mcg/actuation (ProAir HFA) 2 puffs inhalation Q6H PRN benfotiamine 150 mg PO BID 30 days fluticasone propionate 50 mcg/actuation (Flonase Allergy Relief) 2 sprays intranasal DAILY gabapentin 600 mg PO TID 30 days hydromorphone 2 mg PO TID PRN 30 days metoprolol tartrate 12.5 mg PO DAILY naloxone 4 mg/actuation (Narcan) 4 mg intranasal Q2M PRN rivaroxaban (Xarelto) 10 mg PO DAILY umeclidinium-vilanterol 62.5-25 mcg/actuation (Anoro Ellipta) 1 inh inhalation DAILY PRN upadacitinib ER (Rinvoq) 15 mg PO DAILY HPI HPI Comments History of Present Illness Details 77-year-old male with seronegative RA/Sjogren's (dry mouth +++Ro) and pyoderma gangrenosum returns for follow-up. Patient took prednisone taper starting at 40 mg daily last visit with some improvement in his wounds then the wounds started to grow a little larger again recently. Per patient's blood pressure was fluctuating while he is on prednisone however his blood pressure remains fluctuating despite discontinuation of prednisone. Patient has been on Rinvoq 15 mg daily since approximately March of 2022. Prescribed by demand planning analyst Dr. Cantor. Per the wound looks better but it remains quite large. Continues to be painful. Initial history: This is a 76-year-old male with a past medical history of rheumatoid arthritis, Sjogren's, pyoderma gangrenosum, hypertension, bilateral PE who presents for evaluation of left lower extremity open wounds. Patient is originally from [place], moved to [place] in June of 2021. Patient stated that he was initially diagnosed with Sjogren's at the [place] back in the due to dry eyes. He was eventually diagnosed with rheumatoid arthritis and he had been on Enbrel since the for many years. Enbrel was switched to reflect this for about 1 year but it was not effective. He was switched to Actemra in June of 2021 to bring down his inflammatory markers down. He received Actemra infusions for 2-3 months then moved to [place]. In [place] patient initially could not find a implementation project manager, he was eventually evaluated by Dari Good. Starting June of 2021 patient started having open left lower extremity wounds that were quite painful. He was admitted at the hospital in summer for evaluation of those wounds. 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 He was started on argatroban then switched to warfarin on discharge. Patient was evaluated by demand planning analyst in [place] Dr. Godwin who started patient on Rinvoq 3-4 months ago. Tear they state that the smaller lower extremity wounds have closed and the large wound is not getting worse and might be getting somewhat better. With regards to his joint pain patient states he is about the same, he has stiffness of his hands worse on the right hand. He has bilateral hand contractures from many years of RA. [facility] Medical History Acute pulmonary embolism Acute pulmonary embolism with acute cor pulmonale Cardiac arrest Chronic ulcer of leg CKD (chronic kidney disease) stage 3, GFR 30-59 ml/min COPD (chronic obstructive pulmonary disease) Deep vein thrombosis 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 Elevated serum creatinine HTN (hypertension) Leg pain, bilateral MDD (major depressive disorder), single episode Pressure injury of buttock, stage 1 Rheumatoid arthritis Sjogren's disease Surgical History History of ankle surgery History of hernia repair History of left knee replacement Family History Sister Breast cancer Father Aneurysm Mother Angina at rest Other No family history of coronary artery disease Social History Household Members: Spouse Housing: House Do you presently have visiting nurse or other home services: No Alcohol intake: current Alcohol intake frequency: holidays/special occasions only Patient Tobacco Use Status: Former Tobacco user Tobacco use type: Cigarette Years Smoked: quit 2018 e-Cigarette/Vaping Use: Never Used Advance Directives Date on File: 12/23/21 service: Yes Current occupational status: retired Cognitive needs: Yes (cane) Hearing needs: No Vision needs: Yes (Pt wear glasses. ) Review of Systems Skin/Breast Reports non-healing lesions and Reports wounds Physical Exam Vital Signs: Last Vital Signs Temp 97.5 F 02/09/23 11:30 Pulse 60 02/09/23 11:30 Resp 16 02/09/23 11:30 BP 106/62 02/09/23 11:30 Pulse Ox 95 02/09/23 11:30 Oxygen Delivery Method Room Air 02/09/23 11:30 BMI result Body Mass Index 29.5 Const General: cooperative, healthy appearing and comfortable Nutritional Appearance: overweight Limitations: wheelchair HEENT Head: Yes normocephalic and Yes atraumatic Resp Effort & Inspection: normal respiratory effort and able to speak in complete sentences Skin Other: Left leg ankle and foot are wrapped. I was able to see a picture on 's phone taken last week showing a large ulcerating lesion on the lateral aspect of his left leg. Picture looks like pyoderma gangrenosum. Overall the wound is a little smaller and less deep compared to how it was initially. Extrem Other: Right hand RA deformities with ulnar deviation and synovial thickening of his MCPs. 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 Normal range of motion of elbows and shoulders Normal nailfold capillaroscopy Assessment & Plan Assessment & Plan (1) Pyoderma gangrenosum: Code(s): L88 - Pyoderma gangrenosum Plan: This is a 76-year-old male originally from [place], recently moved to [place] with past medical history of seronegative RA/Sjogren's (dry mouth +++Ro) diagnosed in the treated with Enbrel for many years. Patient had right lower extremity wounds which were treated with Renflexis & prednisone with good results however he was having recurrent knee swelling. He was switched to Kevzara early 2021 with some improvement. Patient developed left lower extremity pyoderma gangrenosum. This started around June 2021. 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 He is currently on warfarin now switched to rivaroxaban by corner bead operator. Patient was started on Rinvoq 15 mg daily (April 2022) by demand planning analyst Dr. Cantor in [place]. With some improvement. When comparing pictures of left lower extremity wound, the wound now appears more superficial, it is red with granulation tissue with less pustular material. Per the wound seems to have stopped improving. A steroid tapering course was prescribed last visit which seems to have provided minimal benefit. Reviewed records from patient's previous implementation project manager when he had the left knee synovitis, synovial fluid showed CPPD crystals consistent with pseudogout. My belief is Renflexis and prednisone was working well for rheumatoid arthritis and pyoderma gangrenosum, when patient was switched to Kevzara the pyoderma gangrenosum recurred. Patient has a follow-up appointment with his demand planning analyst next month. I discussed the possibility of potentially adding IVIG treatment as an add on therapy for Rinvoq. Advised patient to discuss with his Construction Producer (2) Rheumatoid arthritis: Code(s): M06.9 - Rheumatoid arthritis, unspecified Plan: Seronegative and deforming. Well controlled on Rinvoq 15 mg daily. No need to make any changes (3) CKD (chronic kidney disease) stage 3, GFR 30-59 ml/min: Code(s): N18.30 - Chronic kidney disease, stage 3 unspecified Plan: Was transient. It self-resolved Plan I spent 30 minutes reviewing patient's chart, evaluating patient, counseling patient & his and documenting in the chart Coding Level of Care Code Est Pt Level 4 (45579) Diagnoses Pyoderma gangrenosum L88 Rheumatoid arthritis M06.9 CKD (chronic kidney disease) stage 3, GFR 30-59 ml/min N18.30
== END 2023-02-09 12:13 | disposition home or self-care (01) ==
PROVIDERS: PCP Internal Medicine; Visit Provider Student in an Organized Health Care Education/Training Program
DX: L88 Pyoderma gangrenosum (principal); M06.9 Rheumatoid arthritis, unspecified; N18.30 Chronic kidney disease, stage 3 unspecified
CPT/HCPCS: 99214

== ENCOUNTER → 2023-02-09 11:28 | Outpatient (BNVA) | payer MEDICARE, SELFPAY | PROVIDERS: Visit Provider Student in an Organized Health Care Education/Training Program | DX: M06.9 Rheumatoid arthritis, unspecified (principal); N18.30 Chronic kidney disease, stage 3 unspecified; L88 Pyoderma gangrenosum | CPT/HCPCS: 99212 ==

== ENCOUNTER 2023-02-16 15:34 | Outpatient (AMB) | payer MEDICARE, SELFPAY ==
[2023-02-16 15:39] VITALS: BP 138/72; PULSE 75; O2SAT 94
--- NOTE | 2023-02-16 15:39 | A.OFFPC_ITS ---
Vital Signs 02/16/23 15:39 02/16/23 16:01 Height 5 ft 6 in BMI Reason not done Patient refused/unable BP 138/72 120/80 Blood Pressure Location Lt brachial Lt brachial Position Sitting Sitting Pulse 75 Pulse Source Pulse Oximeter Pulse Oximetry (%) 94 Oxygen Delivery Method Room Air Intake Visit Reasons: 3 month f/u Allergies heparin (porcine) Allergy (Severe, Verified 02/16/23 15:40) HIT Tobacco use date assessed: 07/20/22 Fall risk assessment: No Falls in past year Last assessed Fall Risk: 02/16/23 Dental Screening Dental Screen Date: 02/16/23 Did you have a dental visit in the last 12 months?: Yes Did you have a dental problem in the last 6 months where you did not have access to dental care?: No Was dental information given to patient?: Patient has dentist HPI 3 month f/u HPI Details 77-year-old male with multiple medical problems. 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 Last seen in October 2022 review of the notes has seen rheumatology steroid taper some improvement patient follows up with hematology oncology also with the left upper extremity DVT and bilateral pulmonary emboli January 2022. 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 Maintained on Xarelto 10 mg once a day. concern about labile BP. - will be seeing cardiology in 2 weeks -PAtient isw also needing a letter regarding being exposed to chemicals when he was in [place] and the medical problems he having. noted receieved from our specialist here [facility] Medical History Acute pulmonary embolism Acute pulmonary embolism with acute cor pulmonale Cardiac arrest Chronic ulcer of leg CKD (chronic kidney disease) stage 3, GFR 30-59 ml/min COPD (chronic obstructive pulmonary disease) Deep vein thrombosis 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 Elevated serum creatinine HTN (hypertension) Leg pain, bilateral MDD (major depressive disorder), single episode Pressure injury of buttock, stage 1 Rheumatoid arthritis Sjogren's disease Surgical History History of ankle surgery History of hernia repair History of left knee replacement Family History Sister Breast cancer Father Aneurysm Mother Angina at rest Other No family history of coronary artery disease Social History Household Members: Spouse Housing: House Do you presently have visiting nurse or other home services: No Alcohol intake: current Alcohol intake frequency: holidays/special occasions only Patient Tobacco Use Status: Former Tobacco user Tobacco use type: Cigarette Years Smoked: quit 2019 e-Cigarette/Vaping Use: Never Used Advance Directives Date on File: 12/23/21 service: Yes Current occupational status: retired Cognitive needs: Yes (cane) Hearing needs: No Vision needs: Yes (Pt wear glasses. ) Questionnaire Thrive Questionnaire Date Thrive assessed: 07/20/22 AUDIT C Alcohol Use Questionnaire (AUDIT-C) 1. How often do you have a drink containing alcohol?: Never 2. How many drinks containing alcohol do you have on a typical day when you are drinking?: 1 or 2 (0) 3. How often do you have six or more drinks on one occasion?: Never Total Score: 0 RENETTA-7 AMB Questionnaire RENETTA-7 Date RENETTA - 7 assessed: 07/20/22 Source: Developed by Drs. Ronal Rivero, Cecelia Cortez, Johny Ocasio and colleagues, with an educational samantha from [employer]. Physical exam (Primary Care) Vital Signs: Last Vital Signs Pulse 75 02/16/23 15:39 BP 138/72 02/16/23 15:39 Pulse Ox 94 02/16/23 15:39 Oxygen Delivery Method Room Air 02/16/23 15:39 Tobacco/Smoking Status: Tobacco use Status Tobacco use date assessed 07/20/22 02/16/23 15:44 Patient Tobacco Use Status Former Tobacco user 02/16/23 15:44 Tobacco use type Cigarette 02/16/23 15:44 e-Cigarette/Vaping Use Never Used 02/16/23 15:44 Thrive Assessment: Date of Thrive Assessment Date Thrive assessed 07/20/22 02/16/23 15:44 Const General: alert; No acute distress Eyes Conjunctivae: conjunctivae normal Resp Auscultation: clear to auscultation bilaterally Cardio Rate: regular rate Rhythm: regular rhythm GI Inspection: Yes normal to inspection Extrem General: Yes normal to inspection and No edema Assessment and Plan Assessment & Plan (1) Pyoderma gangrenosum: Code(s): L88 - Pyoderma gangrenosum Plan: Patient continues to follow-up with Rheumatology and Dermatology on Rinvoq (2) Heparin induced thrombocytopenia (HIT): Code(s): D75.829 - Heparin-induced thrombocytopenia, unspecified Plan: Patient follows up with Hematology-Oncology (3) HTN (hypertension): Code(s): I10 - Essential (primary) hypertension Plan: Continue with blood pressure medication. Decrease salt intake and exercise patient is on metoprolol 12.5 mg once a day (4) Sjogren's disease: Code(s): M35.00 - Sjogren syndrome, unspecified Plan: Patient follows up with Rheumatology (5) Rheumatoid arthritis: Code(s): M06.9 - Rheumatoid arthritis, unspecified Plan: Patient follows up with Rheumatology (6) COPD (chronic obstructive pulmonary disease): Code(s): J44.9 - Chronic obstructive pulmonary disease, unspecified Plan: Continue with the inhaler as needed (7) CKD (chronic kidney disease) stage 3, GFR 30-59 ml/min: Code(s): N18.30 - Chronic kidney disease, stage 3 unspecified Plan: Stable avoid NSAIDs, keep well hydrated (8) Chronic ulcer of leg: Code(s): L97.909 - Non-pressure chronic ulcer of unspecified part of unspecified lower leg with unspecified severity Plan: Patient continues to follow-up with wound care as well as pain management (9) Acute pulmonary embolism with acute cor pulmonale: Code(s): I26.09 - Other pulmonary embolism with acute cor pulmonale Plan: Continue with prophylactic dose of anticoagulation Coding Level of Care Code Est Pt Level 4 (47274) Diagnoses Pyoderma gangrenosum L88 Heparin induced thrombocytopenia (HIT) D75.829 HTN (hypertension) I10 Sjogren's disease M35.00 Rheumatoid arthritis M06.9 COPD (chronic obstructive pulmonary disease) J44.9 CKD (chronic kidney disease) stage 3, GFR 30-59 ml/min N18.30 Chronic ulcer of leg L97.909 Acute pulmonary embolism with acute cor pulmonale I26.09
[2023-02-16 16:01] VITALS: BP 120/80
== END 2023-02-16 16:24 | disposition home or self-care (01) ==
LOC: HO.HMGH 15:34
PROVIDERS: PCP Internal Medicine; Visit Provider Internal Medicine
DX: I10 Essential (primary) hypertension (principal); D75.829 Heparin-induced thrombocytopenia, unspecified; M35.00 Sjogren syndrome, unspecified; M06.9 Rheumatoid arthritis, unspecified; L88 Pyoderma gangrenosum; J44.9 Chronic obstructive pulmonary disease, unspecified; N18.30 Chronic kidney disease, stage 3 unspecified; L97.909 Non-pressure chronic ulcer of unspecified part of unspecified lower leg with unspecified severity; I26.09 Other pulmonary embolism with acute cor pulmonale
CPT/HCPCS: 99214

== ENCOUNTER 2023-03-02 10:34 | Outpatient (AMB) | payer MEDICARE, SELFPAY ==
--- NOTE | 2023-03-02 10:44 | MHC.OFFVIS ---
Intake Vital Signs 03/02/23 10:46 Height 5 ft 6 in BP 135/93 H Blood Pressure Location Rt brachial Position Sitting Pulse 76 Pulse Source Pulse Oximeter Pulse Oximetry (%) 96 Oxygen Delivery Method Room Air Intake Visit Reasons: PILL COUNT Intake Note: Sarath comes in today for a pill count to hydromorphone, patient should have 4 tablets and presents with 54 tablets which he last took on Wednesday02/28/23 at 11am. Pain today 1010. Analyst Market Intelligence Required: No Accompanied by: Spouse Allergies heparin (porcine) Allergy (Severe, Verified 03/02/23 10:46) HIT HPI HPI Comments History of Present Illness Details Patient presents today for a pill count. Patient is supposed to have #4 pills, in his possession has #54 pills. Patient takes hydromorphone 2 mg TID prn for wound care and dressing as needed and severe pain related to chronic, non healing left lateral lower extremity ulcer. He also takes one tab prior to [facility] visits. This demonstrates a responsible attitude in regards to the medication regimen. Patient reports reasonable pain relief on his regime with no noted side effects. He also takes gabapentin 600 mg during the day and 1200 mg at bedtime. Denies any constipation, nausea, sedation, dizziness, or urinary retention. Patient reports his wound is slowly closing up and slightly improving. He reports no longer receiving VNA services and wound dressings are being done by his at home. Patient continues to utilize wheelchair for transfers and mobility. He cannot stand or walk on his left leg for more than 8-10 minutes due to increase pain with standing or walking. Patient is currently is active with home PT and daily home exercise program. 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 Elevated serum creatinine HTN (hypertension) Leg pain, bilateral MDD (major depressive disorder), single episode Pressure injury of buttock, stage 1 Rheumatoid arthritis Sjogren's disease Surgical History History of ankle surgery History of hernia repair History of left knee replacement Family History Sister Breast cancer Father Aneurysm Mother Angina at rest Other No family history of coronary artery disease Social History Household Members: Spouse Housing: House Do you presently have visiting nurse or other home services: No Alcohol intake: current Alcohol intake frequency: holidays/special occasions only Patient Tobacco Use Status: Former Tobacco user Tobacco use type: Cigarette Years Smoked: quit 2018 e-Cigarette/Vaping Use: Never Used Advance Directives Date on File: 12/23/21 service: Yes Current occupational status: retired Cognitive needs: Yes (cane) Hearing needs: No Vision needs: Yes (Pt wear glasses. ) Review of Systems Const All systems reviewed & are unremarkable except as noted in HPI and below Physical Exam Vital Signs: Last Vital Signs Pulse 76 03/02/23 10:46 BP 135/93 H 03/02/23 10:46 Pulse Ox 96 03/02/23 10:46 Oxygen Delivery Method Room Air 03/02/23 10:46 General: Appears afebrile. Alert and oriented. Mood and affect appropriate. Follows and participates in conversation appropriately. Respiratory effort is unlabored. No cough. Sitting comfortably in the wheelchair. Left leg and ankle wrapped with dry and intact dressing. Extrem Other: Patient's spouse iPhone photo taken of patient's Left lower leg: Psych Appearance: grossly normal and well kempt Mental Status: mental status grossly normal Speech and movement: Normal speech and movement present Affect: normal affect Attitude: cooperative Thought process: Normal thought process present Thought content: Normal thought content present, suicidality (none), no hallucinations and No Depressive thoughts present Assessment & Plan Assessment & Plan (1) Peripheral neuropathy: Code(s): G62.9 - Polyneuropathy, unspecified (2) Chronic pain of left lower extremity: Code(s): M79.605 - Pain in left leg; G89.29 - Other chronic pain (3) Chronic, continuous use of opioids: Code(s): F11.90 - Opioid use, unspecified, uncomplicated (4) Rheumatoid arthritis: Code(s): M06.9 - Rheumatoid arthritis, unspecified (5) Pyoderma gangrenosum: Code(s): L88 - Pyoderma gangrenosum Plan Patient has shown accountability for his medication regimen and the pill count was accurate. There is no evidence of misuse, abuse or diversion at this time. Jefft reviewed. I will hold off on refilling him with hydromorphone for now as he has surplus in pill count today. Patient will call us to let us know when he is down to 5 to 10 pills and we will send a refill at that time. Continue gabapentin as before. All questions were answered and the patient is in agreement with the plan. Will follow up in 5 weeks for a pill count or sooner if needed. Coding Level of Care Code Est Pt Level 4 (58369) Diagnoses Peripheral neuropathy G62.9 Chronic pain of left lower extremity M79.605; G89.29 Chronic, continuous use of opioids F11.90 Rheumatoid arthritis M06.9 Pyoderma gangrenosum L88
[2023-03-02 10:46] VITALS: BP 135/93; PULSE 76; O2SAT 96
== END 2023-03-02 11:02 | disposition home or self-care (01) ==
PROVIDERS: PCP Internal Medicine; Visit Provider Nurse Practitioner Family
DX: G62.9 Polyneuropathy, unspecified (principal); M79.605 Pain in left leg; G89.29 Other chronic pain; Z79.891 Long term (current) use of opiate analgesic; M06.9 Rheumatoid arthritis, unspecified; L88 Pyoderma gangrenosum
CPT/HCPCS: 99214

== ENCOUNTER → 2023-03-02 10:34 | Outpatient (BNVA) | payer MEDICARE, SELFPAY | PROVIDERS: PCP Internal Medicine; Visit Provider Nurse Practitioner Family | DX: Z51.81 Encounter for therapeutic drug level monitoring (principal); F11.20 Opioid dependence, uncomplicated; G62.9 Polyneuropathy, unspecified; M79.605 Pain in left leg; M06.9 Rheumatoid arthritis, unspecified; L88 Pyoderma gangrenosum; G89.29 Other chronic pain | CPT/HCPCS: 99212 ==

== ENCOUNTER 2023-04-05 11:14 | Outpatient (AMB) | payer MEDICARE, SELFPAY ==
--- NOTE | 2023-04-05 11:17 | A.OFFVIS_ITS ---
Intake Vital Signs 3 04/05/23 11:32 Height 5 ft 6 in BP 155/97 H Blood Pressure Location Rt brachial Position Sitting Pulse 69 Pulse Source Pulse Oximeter Pulse Oximetry (%) 98 Oxygen Delivery Method Room Air Intake Visit Reasons: Medication Count Intake Note: Sarath comes in today for a pill count to hydromorphone, patient should have 0 tablets and presents with 35 tablets which he last took yesterday 04/04/23 at 1pm. Pain today 810. Nuclear Auxiliary Operator Required: No Accompanied by: Self / Same As Patient Allergies heparin (porcine) Allergy (Severe, Verified 04/05/23 11:32) HIT HPI HPI Comments 2 History of Present Illness0 Details Patient presents today for a pill count. Patient is supposed to have #0 pills, in his possession has #35 pills. Patient takes hydromorphone 2 mg TID prn for wound care and dressing changes as needed for severe pain only. He took only 19 pills for the past month. This demonstrates a responsible attitude in regards to the medication regimen. Patient reports reasonable pain relief on his regime with no noted side effects. He also takes gabapentin 600 mg during the day and 1200 mg at bedtime. Denies any constipation, nausea, sedation, dizziness, or urinary retention. Patient reports frequent episodes of diarrhea and has notified his PCP few times. He will trial BRAT diet and follow up with PCP for potential GI evaluation if continues to have frequent episodes of diarrhea. Patient reports home dressing changes done by his and he attends [facility] once a week. He continues to utilize wheelchair for transfers due to LLE non healing wound ulcer. Patient is concerned for increasing discoloration of both of his feet, left worse than right. We will refer him to Dr. Tavares for further evaluation. 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 Acute pulmonary embolism with acute cor pulmonale Acute pulmonary embolism Cardiac arrest CKD (chronic kidney disease) stage 3, GFR 30-59 ml/min Sjogren's disease Leg pain, bilateral Elevated serum creatinine COPD (chronic obstructive pulmonary disease) HTN (hypertension) Rheumatoid arthritis Chronic ulcer of leg Surgical History History of ankle surgery History of hernia repair History of left knee replacement Family History Sister Breast cancer Father Aneurysm Mother Angina at rest Other No family history of coronary artery disease Social History Household Members: Spouse Housing: House Do you presently have visiting nurse or other home services: No Alcohol intake: current Alcohol intake frequency: holidays/special occasions only Patient Tobacco Use Status: Former Tobacco user Tobacco use type: Cigarette Years Smoked: quit 2018 e-Cigarette/Vaping Use: Never Used Advance Directives Date on File: 12/23/21 service: Yes Current occupational status: retired Cognitive needs: Yes (cane) Hearing needs: No Vision needs: Yes (Pt wear glasses. ) Review of Systems Const All systems reviewed & are unremarkable except as noted in HPI and below Physical Exam Vital Signs: Last Vital Signs Pulse 69 04/05/23 11:32 BP 155/97 H 04/05/23 11:32 Pulse Ox 98 04/05/23 11:32 Oxygen Delivery Method Room Air 04/05/23 11:32 General: Appears afebrile. Alert and oriented. Mood and affect appropriate. Follows and participates in conversation appropriately. Respiratory effort is unlabored. No cough. Sitting comfortably in the wheelchair. Left leg and ankle wrapped with dry and intact dressing. Extrem Other: Diminished pedal pulses bilaterally, Feet cool to touch, decreased capillary refill. Psych Appearance: grossly normal and well kempt Mental Status: mental status grossly normal Speech and movement: Normal speech and movement present and Clear speech present Affect: normal affect Attitude: cooperative Thought process: Normal thought process present Thought content: Normal thought content present, suicidality (none), no hallucinations and Depressive thoughts present Results Reviewed Results Reviewed: Assessment & Plan Assessment & Plan (1) Peripheral vascular disease: Code(s): I73.9 - Peripheral vascular disease, unspecified (2) Peripheral neuropathy: Code(s): G62.9 - Polyneuropathy, unspecified (3) Chronic pain of left lower extremity: Code(s): M79.605 - Pain in left leg; G89.29 - Other chronic pain (4) Chronic, continuous use of opioids: Code(s): F11.90 - Opioid use, unspecified, uncomplicated (5) Rheumatoid arthritis: Code(s): M06.9 - Rheumatoid arthritis, unspecified (6) Pyoderma gangrenosum: Code(s): L88 - Pyoderma gangrenosum Plan Patient has shown accountability for his medication regimen and the pill count was accurate. There is no evidence of misuse, abuse or diversion at this time. [place] reviewed. I will continue to hold off on refilling him with hydromorphone for now as he has surplus in pill count today. Patient will call us to let us know when he is down to 5 to 10 pills and we will send a refill at that time. Continue gabapentin as before. Follow up with PCP if diarrhea worsens. Patient will trial BRAT diet and keep diary. All questions were answered and the patient is in agreement with the plan. Follow up in 5 weeks for a pill count or sooner if needed. Orders: Referrals 2 Vascular Surgery Referral I73.9 - Peripheral vascular disease, unspecified Coding Level of Care Code Est Pt Level 3 (94641) Diagnoses Peripheral vascular disease I73.9 Peripheral neuropathy G62.9 Chronic pain of left lower extremity M79.605; G89.29 Chronic, continuous use of opioids F11.90 Rheumatoid arthritis M06.9 Pyoderma gangrenosum L88
[2023-04-05 11:32] VITALS: BP 155/97; PULSE 69; O2SAT 98
== END 2023-04-05 12:00 | disposition home or self-care (01) ==
PROVIDERS: PCP Internal Medicine; Visit Provider Nurse Practitioner Family
DX: G62.9 Polyneuropathy, unspecified (principal); G89.29 Other chronic pain; M79.605 Pain in left leg; Z79.891 Long term (current) use of opiate analgesic; I73.9 Peripheral vascular disease, unspecified
CPT/HCPCS: 99213

== ENCOUNTER → 2023-04-05 11:14 | Outpatient (BNVA) | payer MEDICARE, SELFPAY | PROVIDERS: PCP Internal Medicine; Visit Provider Nurse Practitioner Family | DX: Z51.81 Encounter for therapeutic drug level monitoring (principal); F11.20 Opioid dependence, uncomplicated; M79.605 Pain in left leg; M06.9 Rheumatoid arthritis, unspecified; L88 Pyoderma gangrenosum; G62.9 Polyneuropathy, unspecified; I73.9 Peripheral vascular disease, unspecified; G89.29 Other chronic pain | CPT/HCPCS: 99212 ==

== ENCOUNTER 2023-05-10 09:45 | Outpatient (AMB) | payer MEDICARE, SELFPAY ==
--- NOTE | 2023-05-10 09:57 | MHC.OFFVIS ---
Intake Vital Signs 05/10/23 09:58 Height 5 ft 6 in Weight 188 lb BMI 30.3 BP 113/67 Blood Pressure Location Lt brachial Position Sitting Respiration 14 Pulse 67 Pulse Oximetry (%) 93 Oxygen Delivery Method Room Air Intake Visit Reasons: Medication Count Allergies heparin (porcine) Allergy (Severe, Verified 05/10/23 09:58) HIT HPI HPI Comments History of Present Illness Details Patient presents today for a pill count. Patient is supposed to have #38 pills, in his possession has #56 pills. Patient takes hydromorphone 2 mg BID prn for wound care and dressing changes as needed for moderate-severe pain.This demonstrates a responsible attitude in regards to the medication regimen. We have decreased his medication regime to BID last month due to minimal use however his wounds recently got worse, enlarged, new 2 small blisters and increased drainage. Patient reports significant pain with wound changes and has upcoming follow up [facility] with his Real Estate Development Manager. We discussed going back to TID prn scheduled with hydromorphone, patient will notify our office if he will require to this with wound care changes and new treatments. He continues to take gabapentin 600 mg during the day and 1200 mg at bedtime. Denies any constipation, nausea, sedation, dizziness, or urinary retention. Patient experience frequent episodes of loose stools and has notified his PCP regarding this. Patient denies any withdrawal symptoms and states due to pain he has to regularly take hydromorphine. Denies any recent cough, cold, infection, fever or other significant changes in medical history since last office visit. 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 Acute pulmonary embolism with acute cor pulmonale Acute pulmonary embolism Cardiac arrest CKD (chronic kidney disease) stage 3, GFR 30-59 ml/min Sjogren's disease Leg pain, bilateral Elevated serum creatinine COPD (chronic obstructive pulmonary disease) HTN (hypertension) Rheumatoid arthritis Chronic ulcer of leg Surgical History History of ankle surgery History of hernia repair History of left knee replacement Family History Sister Breast cancer Father Aneurysm Mother Angina at rest Other No family history of coronary artery disease Social History Household Members: Spouse Housing: House Do you presently have visiting nurse or other home services: No Alcohol intake: current Alcohol intake frequency: holidays/special occasions only Patient Tobacco Use Status: Former Tobacco user Tobacco use type: Cigarette Years Smoked: quit 2018 e-Cigarette/Vaping Use: Never Used Advance Directives Date on File: 12/23/21 service: Yes Current occupational status: retired Cognitive needs: Yes (cane) Hearing needs: No Vision needs: Yes (Pt wear glasses. ) Review of Systems Const All systems reviewed & are unremarkable except as noted in HPI and below Physical Exam Vital Signs: Last Vital Signs Pulse 67 05/10/23 09:58 Resp 14 05/10/23 09:58 BP 113/67 05/10/23 09:58 Pulse Ox 93 05/10/23 09:58 Oxygen Delivery Method Room Air 05/10/23 09:58 BMI result Body Mass Index 30.3 General: Appears afebrile. Alert and oriented. Mood and affect appropriate. Follows and participates in conversation appropriately. Respiratory effort is unlabored. No cough. Sitting comfortably in the wheelchair. Left leg and ankle wrapped with dry and intact dressing. Psych Appearance: grossly normal and well kempt Mental Status: mental status grossly normal Speech and movement: Normal speech and movement present and Clear speech present Affect: normal affect Attitude: cooperative Thought process: Normal thought process present Thought content: Normal thought content present, suicidality (none), no hallucinations and Depressive thoughts present Assessment & Plan Assessment & Plan (1) Peripheral neuropathy: Code(s): G62.9 - Polyneuropathy, unspecified (2) Chronic pain of left lower extremity: Code(s): M79.605 - Pain in left leg; G89.29 - Other chronic pain (3) Chronic, continuous use of opioids: Code(s): F11.90 - Opioid use, unspecified, uncomplicated (4) Rheumatoid arthritis: Code(s): M06.9 - Rheumatoid arthritis, unspecified (5) Pyoderma gangrenosum: Code(s): L88 - Pyoderma gangrenosum Plan Patient has shown accountability for his medication regimen and the pill count was accurate. There is no evidence of misuse, abuse or diversion at this time. Jefft reviewed. I will hold off on refilling him with hydromorphone until patient reaches out to our office and letting us know if he will need to return to his hydromorphine TID prn schedule instead of BID prn due to worsening of wound status. Continue gabapentin as before. Follow up with PCP if diarrhea worsens. All questions were answered and the patient is in agreement with the plan. Follow up in 4-5 weeks for a pill count or sooner if needed. Coding Level of Care Code Est Pt Level 3 (26532) Diagnoses Peripheral neuropathy G62.9 Chronic pain of left lower extremity M79.605; G89.29 Chronic, continuous use of opioids F11.90 Rheumatoid arthritis M06.9 Pyoderma gangrenosum L88
[2023-05-10 09:58] VITALS: BP 113/67; PULSE 67; RESP 14; O2SAT 93; BMI 30.3
== END 2023-05-10 10:16 | disposition home or self-care (01) ==
PROVIDERS: PCP Internal Medicine; Visit Provider Nurse Practitioner Family
DX: G89.29 Other chronic pain (principal); M79.605 Pain in left leg; Z79.891 Long term (current) use of opiate analgesic; L88 Pyoderma gangrenosum; G62.9 Polyneuropathy, unspecified; M06.9 Rheumatoid arthritis, unspecified
CPT/HCPCS: 99213

== ENCOUNTER → 2023-05-10 09:45 | Outpatient (BNVA) | payer MEDICARE, SELFPAY | PROVIDERS: PCP Internal Medicine; Visit Provider Nurse Practitioner Family | DX: Z51.81 Encounter for therapeutic drug level monitoring (principal); F11.20 Opioid dependence, uncomplicated; G62.9 Polyneuropathy, unspecified; M79.605 Pain in left leg; M06.9 Rheumatoid arthritis, unspecified; L88 Pyoderma gangrenosum; G89.29 Other chronic pain | CPT/HCPCS: 99212 ==

== ENCOUNTER 2023-05-28 10:51 | Outpatient (AMB) | payer MEDICARE, SELFPAY ==
[2023-05-28 10:59] VITALS: BP 140/78; PULSE 53; TEMP 36.1; O2SAT 92
--- NOTE | 2023-05-28 10:59 | A.OFFVIS_ITS ---
Intake Vital Signs 3 05/28/23 10:59 Height 5 ft 6 in BMI Reason not done Patient refused/unable BP 140/78 H Blood Pressure Location Rt brachial Position Sitting Pulse 53 Pulse Source Pulse Oximeter Temp 97.0 F Temp Source Skin Pulse Oximetry (%) 92 Oxygen Delivery Method Room Air Comment in wheelchair, leg wound Intake Visit Reasons: pyoderma Intake Note: Pt last seen 02/09/23 presents tody for follow up and test results. C/o constant generalized pain. Following with wound care Equipment Scheduler Required: No Accompanied by: Spouse Allergies heparin (porcine) Allergy (Severe, Verified 05/28/23 11:02) HIT Medication List - Last Reconciled 05/28/23 by Kofi Horne MD acetaminophen (Tylenol Extra Strength) 1,000 mg PO Q6H PRN albuterol sulfate 90 mcg/actuation (ProAir HFA) 2 puffs inhalation Q6H PRN benfotiamine 150 mg PO BID 30 days fluticasone propionate 50 mcg/actuation (Flonase Allergy Relief) 2 sprays intranasal DAILY gabapentin 800 mg PO TID 30 days hydromorphone 2 mg PO BID-TID PRN 30 days metoprolol tartrate 12.5 mg PO DAILY naloxone 4 mg/actuation (Narcan) 4 mg intranasal Q2M PRN rivaroxaban (Xarelto) 10 mg PO DAILY umeclidinium-vilanterol 62.5-25 mcg/actuation (Anoro Ellipta) 1 inh inhalation DAILY PRN upadacitinib ER (Rinvoq) 30 mg PO DAILY HPI HPI Comments 2 History of Present Illness0 Details 77-year-old male with 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 The Rinvoq dose was increased to 30 mg daily about 2 months ago without much improvement per patient. Per patient some areas of the wound are getting smaller and other areas are getting larger. States that the pain is unbearable. He can barely sleep 3 hours at night. States that topical cream was prescribed by his automatic fancy machine operator last visit.. Does not recall the name. States that an infusion was discussed as well. He has no complaints from his arthritis at this point. Initial history: This is a 76-year-old male with a past medical history of rheumatoid arthritis, Sjogren's, pyoderma gangrenosum, hypertension, bilateral PE who presents for evaluation of left lower extremity open wounds. Patient is originally from [place], moved to [place] in June of 2021. Patient stated that he was initially diagnosed with Sjogren's at the [facility] back in the due to dry eyes. He was eventually diagnosed with rheumatoid arthritis and he had been on Enbrel since the for many years. Enbrel was switched to reflect this for about 1 year but it was not effective. He was switched to Actemra in June of 2021 to bring down his inflammatory markers down. He received Actemra infusions for 2-3 months then moved to [place]. In [place] patient initially could not find a textile broker, he was eventually evaluated by Dari Good. Starting June of 2021 patient started having open left lower extremity wounds that were quite painful. He was admitted at the hospital in summer for evaluation of those wounds. 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 He was started on argatroban then switched to warfarin on discharge. Patient was evaluated by automatic fancy machine operator in [place] Dr. Godwin who started patient on Rinvoq 3-4 months ago. Tear they state that the smaller lower extremity wounds have closed and the large wound is not getting worse and might be getting somewhat better. With regards to his joint pain patient states he is about the same, he has stiffness of his hands worse on the right hand. He has bilateral hand contractures from many years of RA. [facility] Medical History MDD (major depressive disorder), single episode Pressure injury of buttock, stage 1 Deep vein thrombosis 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 Acute pulmonary embolism with acute cor pulmonale Acute pulmonary embolism Cardiac arrest CKD (chronic kidney disease) stage 3, GFR 30-59 ml/min Sjogren's disease Leg pain, bilateral Elevated serum creatinine COPD (chronic obstructive pulmonary disease) HTN (hypertension) Rheumatoid arthritis Chronic ulcer of leg Surgical History History of ankle surgery History of hernia repair History of left knee replacement Family History Sister Breast cancer Father Aneurysm Mother Angina at rest Other No family history of coronary artery disease Social History Household Members: Spouse Housing: House Do you presently have visiting nurse or other home services: No Alcohol intake: current Alcohol intake frequency: holidays/special occasions only Patient Tobacco Use Status: Former Tobacco user Tobacco use type: Cigarette Years Smoked: quit 2019 e-Cigarette/Vaping Use: Never Used Advance Directives Date on File: 12/23/21 service: Yes Current occupational status: retired Cognitive needs: Yes (cane) Hearing needs: No Vision needs: Yes (Pt wear glasses. ) Review of Systems Skin/Breast Reports non-healing lesions, Reports skin pain, Reports skin ulcer and Reports wounds Physical Exam Vital Signs: Last Vital Signs Temp 97.0 F 05/28/23 10:59 Pulse 53 05/28/23 10:59 BP 140/78 H 05/28/23 10:59 Pulse Ox 92 05/28/23 10:59 Oxygen Delivery Method Room Air 05/28/23 10:59 Const General: cooperative, healthy appearing and comfortable Nutritional Appearance: overweight Limitations: wheelchair HEENT Head: Yes normocephalic and Yes atraumatic Resp Effort & Inspection: normal respiratory effort and able to speak in complete sentences Skin Other: Left leg ankle and foot are wrapped. Patient showed me progression of patient's left ankle wound over time. Over time it seems that the bottom part of the wound is shrinking but the top part is opening up Extrem Other: Right hand RA deformities with ulnar deviation and synovial thickening of his MCPs. 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 Normal range of motion of elbows and shoulders There is no active synovitis Normal nailfold capillaroscopy Results Reviewed Results Reviewed: Assessment & Plan Assessment & Plan (1) Pyoderma gangrenosum: Code(s): L88 - Pyoderma gangrenosum Plan: This is a 77-year-old male originally from [place], recently moved to [place] with past medical history of seronegative RA/Sjogren's (dry mouth +++Ro) diagnosed in the treated with Enbrel for at least 15 years years. Patient had right lower extremity wounds which were treated with Renflexis & prednisone with good results however he was having recurrent knee swelling. He was switched to Kevzara early 2021 with some improvement. Patient developed left lower extremity pyoderma gangrenosum. This started around June 2021. 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 He is currently on warfarin now switched to rivaroxaban by split and drum room supervisor. Patient was started on Rinvoq 15 mg daily (April 2022) by automatic fancy machine operator Dr. Cantor in [place]. With some improvement. The Rinvoq dose was increased a few months ago to 30 mg daily without much improvement according to patient. A steroid tapering course was prescribed 6 months ago which provided temporary improvement Reviewed records from patient's previous textile broker when he had the left knee synovitis, synovial fluid showed CPPD crystals consistent with pseudogout. My belief is Renflexis and prednisone was working well for rheumatoid arthritis and pyoderma gangrenosum, when patient was switched to Kevzara the pyoderma gangrenosum recurred. I reviewed the most recent Dermatology notes. It seems that infliximab was discussed. I believe infliximab infusions would be a reasonable treatment option especially given the fact that patient's wounds improved with Renflexis in the past. Rinvoq would have to be discontinued Unfortunately I do not know his Renflexis dosing schedule in the past. I think patient should receive at least the same Renflexis dose or a higher dose. I will send my notes to his automatic fancy machine operator I had a long conversation today with patient, his regarding his condition. (2) Rheumatoid arthritis: Code(s): M06.9 - Rheumatoid arthritis, unspecified Plan: Seronegative and deforming. Currently well controlled. Plan I spent 30 minutes reviewing patient's chart, evaluating patient, counseling patient & his and documenting in the chart Coding Level of Care Code Est Pt Level 4 (87901) Diagnoses Pyoderma gangrenosum L88 Rheumatoid arthritis M06.9
== END 2023-05-28 11:33 | disposition home or self-care (01) ==
PROVIDERS: PCP Internal Medicine; Visit Provider Student in an Organized Health Care Education/Training Program
DX: L88 Pyoderma gangrenosum (principal); M06.9 Rheumatoid arthritis, unspecified
CPT/HCPCS: 99214

== ENCOUNTER → 2023-05-28 10:51 | Outpatient (BNVA) | payer MEDICARE, SELFPAY | PROVIDERS: PCP Internal Medicine; Visit Provider Student in an Organized Health Care Education/Training Program | DX: L88 Pyoderma gangrenosum (principal); M06.9 Rheumatoid arthritis, unspecified | CPT/HCPCS: 99212 ==

== ENCOUNTER 2023-05-31 10:51 | Outpatient (AMB) | payer MEDICARE, SELFPAY ==
[2023-05-31 10:52] VITALS: BP 136/78; PULSE 77; O2SAT 95; BMI 31.0
--- NOTE | 2023-05-31 10:52 | A.OFFPC_ITS ---
Vital Signs 05/31/23 10:52 Height 5 ft 6 in Weight 192 lb 3.889 oz BMI 31.0 BP 136/78 Blood Pressure Location Lt brachial Position Sitting Pulse 77 Pulse Source Pulse Oximeter Pulse Oximetry (%) 95 Oxygen Delivery Method Room Air Intake Visit Reasons: pyoderma gangrenosum , CKD, RA Morgue Attendant Required: No Allergies heparin (porcine) Allergy (Severe, Verified 05/31/23 10:52) HIT Tobacco use date assessed: 05/31/23 Fall risk assessment: No Falls in past year Last assessed Fall Risk: 05/31/23 HPI pyoderma gangrenosum , CKD, RA HPI Details 77-year-old male with a history of pyode rma gangrenosum heparin-induced thrombocytopenia hypertension Sjogren's disease rheumatoid arthritis COPD chronic kidney disease with a history of pulmonary embolism coming in for follow-up. Last seen in February 2023.. Patient follows up with Rheumatology treated with Rinvoq without much improvement. Noted renflexix and prednisone from rheumatology. Patient also follows up with wound care and pain management patient also has seen [place] [facility]. PAin still . blood work 04/23/2023 and renal US- blood work showing renal insuf and US showing renal disease [facility] Medical History MDD (major depressive disorder), single episode Pressure injury of buttock, stage 1 Deep vein thrombosis 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 Acute pulmonary embolism with acute cor pulmonale Acute pulmonary embolism Cardiac arrest CKD (chronic kidney disease) stage 3, GFR 30-59 ml/min Sjogren's disease Leg pain, bilateral Elevated serum creatinine COPD (chronic obstructive pulmonary disease) HTN (hypertension) Rheumatoid arthritis Chronic ulcer of leg Surgical History History of ankle surgery History of hernia repair History of left knee replacement Family History Sister Breast cancer Father Aneurysm Mother Angina at rest Other No family history of coronary artery disease Social History Household Members: Spouse Housing: House Do you presently have visiting nurse or other home services: No Alcohol intake: current Alcohol intake frequency: holidays/special occasions only Patient Tobacco Use Status: Former Tobacco user Tobacco use type: Cigarette Years Smoked: quit 2018 e-Cigarette/Vaping Use: Never Used Advance Directives Date on File: 12/23/21 service: Yes Current occupational status: retired Cognitive needs: Yes (cane) Hearing needs: No Vision needs: Yes (Pt wear glasses. ) Questionnaire Thrive Questionnaire Date Thrive assessed: 07/20/22 AUDIT C Alcohol Use Questionnaire (AUDIT-C) 1. How often do you have a drink containing alcohol?: Never 2. How many drinks containing alcohol do you have on a typical day when you are drinking?: 1 or 2 (0) 3. How often do you have six or more drinks on one occasion?: Never Total Score: 0 RENETTA-7 AMB Questionnaire RENETTA-7 Date RENETTA - 7 assessed: 07/20/22 Source: Developed by Drs. Ronal Rivero, Cecelia Cortez, Johny Ocasio and colleagues, with an educational samantha from [employer]. Physical exam (Primary Care) Vital Signs: Last Vital Signs Pulse 77 05/31/23 10:52 BP 136/78 05/31/23 10:52 Pulse Ox 95 05/31/23 10:52 Oxygen Delivery Method Room Air 05/31/23 10:52 BMI result Body Mass Index 31.0 Tobacco/Smoking Status: Tobacco use Status Tobacco use date assessed 05/31/23 05/31/23 10:53 Patient Tobacco Use Status Former Tobacco user 05/31/23 10:53 Tobacco use type Cigarette 05/31/23 10:53 e-Cigarette/Vaping Use Never Used 05/31/23 10:53 Thrive Assessment: Date of Thrive Assessment Date Thrive assessed 07/20/22 05/31/23 10:53 Const General: alert; No acute distress Eyes Conjunctivae: conjunctivae normal Resp Auscultation: clear to auscultation bilaterally Cardio Rate: regular rate Rhythm: regular rhythm GI Inspection: Yes normal to inspection Assessment and Plan Assessment & Plan (1) COPD (chronic obstructive pulmonary disease): Code(s): J44.9 - Chronic obstructive pulmonary disease, unspecified Plan: Continue with inhaler, Anoro (2) CKD (chronic kidney disease) stage 3, GFR 30-59 ml/min: Code(s): N18.30 - Chronic kidney disease, stage 3 unspecified Plan: Avoid NSAIDs, keep well-hydrated about the blood work and will need to repeat. Discussed with the options of getting Nephrology (3) Rheumatoid arthritis: Code(s): M06.9 - Rheumatoid arthritis, unspecified Plan: Patient is being followed up by Rheumatology (4) HTN (hypertension): Code(s): I10 - Essential (primary) hypertension Plan: Continue with blood pressure medication. Decrease salt intake and exercise takes metoprolol 12.5 mg once a day (5) Acute pulmonary embolism with acute cor pulmonale: Code(s): I26.09 - Other pulmonary embolism with acute cor pulmonale Plan: Continue with anticoagulation with Xarelto (6) Pyoderma gangrenosum: Code(s): L88 - Pyoderma gangrenosum Plan: Patient follows up with Dermatology and Rheumatology (7) Renal insufficiency: Code(s): N28.9 - Disorder of kidney and ureter, unspecified Plan: Keep well hydrated will follow-up on the blood work (8) Anemia: Code(s): D64.9 - Anemia, unspecified Plan: continue to follow up. (9) Hypertriglyceridemia: Code(s): E78.1 - Pure hyperglyceridemia Plan: Avoid fried foods, chicken skin, eggs, butter margarine, pastries and meat. Be it pork or beef they have a lot of cholesterol LDL goal of less than 130 and triglyceride of less than 150. Orders: Orders Complete Blood Count Auto Diff 2 Months N28.9 - Disorder of kidney and ureter, unspecified Comprehensive Met. Panel 2 Months N28.9 - Disorder of kidney and ureter, unspecified Coding Level of Care Code Est Pt Level 4 (96421) Diagnoses COPD (chronic obstructive pulmonary disease) J44.9 CKD (chronic kidney disease) stage 3, GFR 30-59 ml/min N18.30 Rheumatoid arthritis M06.9 HTN (hypertension) I10 Acute pulmonary embolism with acute cor pulmonale I26.09 Pyoderma gangrenosum L88 Renal insufficiency N28.9 Anemia D64.9 Hypertriglyceridemia E78.1
== END 2023-05-31 11:39 | disposition home or self-care (01) ==
PROVIDERS: PCP Internal Medicine; Visit Provider Internal Medicine
DX: I12.9 Hypertensive chronic kidney disease with stage 1 through stage 4 chronic kidney disease, or unspecified chronic kidney disease (principal); J44.9 Chronic obstructive pulmonary disease, unspecified; N18.30 Chronic kidney disease, stage 3 unspecified; M06.9 Rheumatoid arthritis, unspecified; I26.09 Other pulmonary embolism with acute cor pulmonale; L88 Pyoderma gangrenosum; N28.9 Disorder of kidney and ureter, unspecified; D64.9 Anemia, unspecified; E78.1 Pure hyperglyceridemia
CPT/HCPCS: 99214

== ENCOUNTER 2023-06-07 09:50 | Outpatient (AMB) | payer MEDICARE, SELFPAY ==
--- NOTE | 2023-06-07 10:28 | A.OFFVIS_ITS ---
Intake Vital Signs 06/07/23 10:37 Height 5 ft 6 in Weight 192 lb BMI 31.0 BP 125/78 Blood Pressure Location Rt brachial Position Sitting Pulse 71 Pulse Source Pulse Oximeter Pulse Oximetry (%) 98 Oxygen Delivery Method Room Air Intake Visit Reasons: PILL COUNT/confirmed Intake Note: Sarath comes in today for a pill count to hydromophone, patient should have 0 tablets and presents with 20 tablets which he last took last night 06/05/23 at 6:45pm. Pain today 04/20 Slasher Tender Helper Required: No Accompanied by: Spouse Allergies heparin (porcine) Allergy (Severe, Verified 06/07/23 10:37) HIT HPI HPI Comments History of Present Illness Details Patient presents today for a pill count. Patient is supposed to have #0 pills, in his possession has #20 pills. Patient takes hydromorphone 2 mg BID prn for wound care and dressing changes as needed for moderate-severe pain. This demonstrates a responsible attitude in regards to the medication regimen. Patient reports no improvement in his wound healing and discussion for potential amputation has been recently discussed by his another provider. Patient reports he is awaiting infusion treatment for left wound treatment. He continues to report significant pain with wound changes, as well as daily chronic LLE pain which wakes him at night around [id number] am per his . Patient reports hydromorphone helps during wound care and dressing changes but pain is not managed consistently. Pain negatively affects his ADLs, mobility, functioning, mood, sleep and quality of life. Patient's concerned that patient's appetite has been decreased. Recent lab results concerning to patient and his for low iron levels. His blood counts are within normal levels, lab results were scanned into his chart. We discussed dietary sources of iron and patient will incorporate into his daily intake. He reports, due to significant daily pain, he does not have much appetite. We discussed adding low dose Fentanyl patch to his current regime for continued pain control. Patient reports he had good results with Fentanyl patch and Dilaudid prn dressing changes during his previous rehab stay. Denies any fever, cough, shortness of breaths, abdominal pain, constipation, nausea, sedation, dizziness, or urinary retention. [facility] Medical History MDD (major depressive disorder), single episode Pressure injury of buttock, stage 1 Deep vein thrombosis 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 Acute pulmonary embolism with acute cor pulmonale Acute pulmonary embolism Cardiac arrest CKD (chronic kidney disease) stage 3, GFR 30-59 ml/min Sjogren's disease Leg pain, bilateral Elevated serum creatinine COPD (chronic obstructive pulmonary disease) HTN (hypertension) Rheumatoid arthritis Chronic ulcer of leg Surgical History History of ankle surgery History of hernia repair History of left knee replacement Family History Sister Breast cancer Father Aneurysm Mother Angina at rest Other No family history of coronary artery disease Household Members: Spouse Housing: House Do you presently have visiting nurse or other home services: No Alcohol intake: current Alcohol intake frequency: holidays/special occasions only Patient Tobacco Use Status: Former Tobacco user Tobacco use type: Cigarette Years Smoked: quit 2019 e-Cigarette/Vaping Use: Never Used Advance Directives Date on File: 12/23/21 service: Yes Current occupational status: retired Cognitive needs: Yes (cane) Hearing needs: No Vision needs: Yes (Pt wear glasses. ) Review of Systems Const All systems reviewed & are unremarkable except as noted in HPI and below Physical Exam Vital Signs: Last Vital Signs Pulse 71 06/07/23 10:37 BP 125/78 06/07/23 10:37 Pulse Ox 98 06/07/23 10:37 Oxygen Delivery Method Room Air 06/07/23 10:37 BMI result Body Mass Index 31.0 General: Appears afebrile. Alert and oriented. Mood and affect appropriate. Follows and participates in conversation appropriately. Respiratory effort is unlabored. No cough. Sitting comfortably in the wheelchair. Left leg and ankle wrapped with dry and intact dressing. Psych Appearance: grossly normal Mental Status: mental status grossly normal Speech and movement: Normal speech and movement present Affect: normal affect and Sad affect present Attitude: cooperative Thought process: Normal thought process present Thought content: Normal thought content present, suicidality (none), no hallucinations and Depressive thoughts present Insight: Good insight present (Psych) Assessment & Plan Assessment & Plan (1) Peripheral neuropathy: Code(s): G62.9 - Polyneuropathy, unspecified (2) Chronic pain of left lower extremity: Code(s): M79.605 - Pain in left leg; G89.29 - Other chronic pain (3) Pyoderma gangrenosum: Code(s): L88 - Pyoderma gangrenosum (4) Chronic, continuous use of opioids: Code(s): F11.90 - Opioid use, unspecified, uncomplicated (5) Rheumatoid arthritis: Code(s): M06.9 - Rheumatoid arthritis, unspecified Plan Patient has shown accountability for his medication regimen and the pill count was accurate. There is no evidence of misuse, abuse or diversion at this time. [employer] reviewed. We had a long discussion about his LLE non healing wound and pain managements. His current opioid is not providing him consistent pain relief except wound care and dressing changes. We will trial low dose Fentanyl patch for 2 weeks and use of hydromorphone for wound care/dressing changes as needed. Side effects and precautions were discussed with patient and his . Patient reports he had tolerated Fentanyl patch well previously during rehabilitation. I will hold off on refilling him with hydromorphone at this time as he has surplus of #20 pills and will continue use it prn. Continue gabapentin as before and will restart duloxetine at bedtime. All questions were answered and the patient is in agreement with the plan. Follow up in 4 weeks for a pill count or sooner if needed. Medications: New duloxetine 20 mg PO BEDTIME 30 caps 0RF pain G62.9 - Polyneuropathy, unspecified, G89.29 - Other chronic pain, M79.605 - Pain in left leg fentanyl 12 mcg/hr Partial Fill upon patient request. 1 patch transdermal Q72H 15 days 5 ea 0RF pain G62.9 - Polyneuropathy, unspecified, G89.29 - Other chronic pain, L88 - Pyoderma gangrenosum, M79.605 - Pain in left leg Refilled hydromorphone Partial Fill upon patient request. 2 mg PO BID-TID 30 days PRN 60 tabs 0RF Pain, Moderate (Pain Scale 4-6 F11.90 - Opioid use, unspecified, uncomplicated, G89.29 - Other chronic pain, L88 - Pyoderma gangrenosum, M79.605 - Pain in left leg Coding Level of Care Code Est Pt Level 4 (98091) Diagnoses Peripheral neuropathy G62.9 Chronic pain of left lower extremity M79.605; G89.29 Pyoderma gangrenosum L88 Chronic, continuous use of opioids F11.90 Rheumatoid arthritis M06.9
[2023-06-07 10:37] VITALS: BP 125/78; PULSE 71; O2SAT 98; BMI 31.0
== END 2023-06-07 11:22 | disposition home or self-care (01) ==
PROVIDERS: PCP Internal Medicine; Visit Provider Nurse Practitioner Family
DX: G62.9 Polyneuropathy, unspecified (principal); M79.605 Pain in left leg; G89.29 Other chronic pain; Z79.891 Long term (current) use of opiate analgesic; L88 Pyoderma gangrenosum; M06.9 Rheumatoid arthritis, unspecified
CPT/HCPCS: 99214

== ENCOUNTER → 2023-06-07 09:50 | Outpatient (BNVA) | payer MEDICARE, SELFPAY | PROVIDERS: PCP Internal Medicine; Visit Provider Nurse Practitioner Family | DX: G62.9 Polyneuropathy, unspecified (principal); M79.605 Pain in left leg; G89.29 Other chronic pain; M06.9 Rheumatoid arthritis, unspecified; L88 Pyoderma gangrenosum; Z79.891 Long term (current) use of opiate analgesic | CPT/HCPCS: 99212 ==

== ENCOUNTER 2023-07-13 10:31 | Outpatient (AMB) | payer MEDICARE, SELFPAY ==
[2023-07-13 10:38] VITALS: BP 132/72; PULSE 72; RESP 12; O2SAT 90; BMI 29.9
--- NOTE | 2023-07-13 10:38 | A.OFFVIS_ITS ---
Intake Vital Signs 07/13/23 10:38 07/13/23 10:54 Height 5 ft 6 in Weight 185 lb BMI 29.9 BP 132/72 Blood Pressure Location Lt brachial Position Sitting Sitting Respiration 12 16 Pulse 72 72 Pulse Source Pulse Oximeter Pulse Oximeter Pulse Oximetry (%) 90 L 93 Oxygen Delivery Method Room Air Room Air Intake Visit Reasons: Medication Count/confirmed Intake Note: Pt currently wearing fentanyl patch, last took dilaudid 07/12/22 @ 7pm Allergies heparin (porcine) Allergy (Severe, Verified 07/13/23 10:39) HIT Medication List - Last Reconciled 07/13/23 by MARJOREI Pierce acetaminophen (Tylenol Extra Strength) 1,000 mg PO Q6H PRN albuterol sulfate 90 mcg/actuation (ProAir HFA) 2 puffs inhalation Q6H PRN benfotiamine 250 mg PO BID duloxetine 20 mg PO BEDTIME 90 days fluticasone propionate 50 mcg/actuation (Flonase Allergy Relief) 2 sprays intranasal DAILY gabapentin 800 mg PO TID 30 days hydromorphone 2 mg PO BID-TID PRN 30 days metoprolol tartrate 25 mg PO BID naloxone 4 mg/actuation (Narcan) 4 mg intranasal Q2M PRN prednisone 10 mg PO DAILY umeclidinium-vilanterol 62.5-25 mcg/actuation (Anoro Ellipta) 1 inh inhalation DAILY PRN HPI HPI Comments History of Present Illness Details Patient presents today for a pill count. Patient is supposed to have #8 pills and #0 patches, in his possession has #44 pills and #0 patches. Patient takes hydromorphone 2 mg BID prn for wound care and dressing changes as needed for moderate-severe pain. He reports minimal benefit with Fentanyl patch and would like to discontinue this. He reports better sleep since restarting low dose duloxetine. This demonstrates a responsible attitude in regards to the medication regimen. Patient reports worsening of his chronic non-healing LLE wound. He is scheduled to undergo infusion treatment for left wound through his [facility] and Dermatology center. Patient continues to report significant pain with wound changes, as well as daily chronic LLE pain during the day and partially at night. Patient is interested in hyperbaric oxygen therapy if infusion treatments will not be effective. Denies any fever, cough, shortness of breaths, abdominal pain, constipation, nausea, sedation, dizziness, or urinary retention. [facility] Medical History MDD (major depressive disorder), single episode Pressure injury of buttock, stage 1 Deep vein thrombosis 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 Acute pulmonary embolism with acute cor pulmonale Acute pulmonary embolism Cardiac arrest CKD (chronic kidney disease) stage 3, GFR 30-59 ml/min Sjogren's disease Leg pain, bilateral Elevated serum creatinine COPD (chronic obstructive pulmonary disease) HTN (hypertension) Rheumatoid arthritis Chronic ulcer of leg Surgical History History of ankle surgery History of hernia repair History of left knee replacement Family History Sister Breast cancer Father Aneurysm Mother Angina at rest Other No family history of coronary artery disease Social History Household Members: Spouse Housing: House Do you presently have visiting nurse or other home services: No Alcohol intake: current Alcohol intake frequency: holidays/special occasions only Comment: restraints Patient Tobacco Use Status: Former Tobacco user Tobacco use type: Cigarette Years Smoked: quit 2019 e-Cigarette/Vaping Use: Never Used Advance Directives Date on File: 12/23/21 service: Yes Current occupational status: retired Cognitive needs: Yes (cane) Hearing needs: No Vision needs: Yes (Pt wear glasses. ) Review of Systems Const All systems reviewed & are unremarkable except as noted in HPI and below Physical Exam Vital Signs: Last Vital Signs Pulse 72 07/13/23 10:38 Resp 12 07/13/23 10:38 BP 132/72 07/13/23 10:38 Pulse Ox 90 L 07/13/23 10:38 Oxygen Delivery Method Room Air 07/13/23 10:38 General: Appears afebrile. Alert and oriented. Mood and affect appropriate. Follows and participates in conversation appropriately. Respiratory effort is unlabored. No cough. Sitting comfortably in the wheelchair. Resp Effort & Inspection: normal respiratory effort, able to speak in complete sentences, no cough, no respiratory distress and No symmetric chest movement Extrem Other: Left lower leg dressed in bulky dressing, dry and intact. Psych Appearance: grossly normal Mental Status: mental status grossly normal Speech and movement: Normal speech and movement present Affect: normal affect and Sad affect present Attitude: cooperative Thought process: Normal thought process present Thought content: Normal thought content present, suicidality (none), no hallucinations and Depressive thoughts present Insight: Good insight present (Psych) Assessment & Plan Assessment & Plan (1) Peripheral neuropathy: Code(s): G62.9 - Polyneuropathy, unspecified (2) Chronic pain of left lower extremity: Code(s): M79.605 - Pain in left leg; G89.29 - Other chronic pain (3) Pyoderma gangrenosum: Code(s): L88 - Pyoderma gangrenosum (4) Chronic, continuous use of opioids: Code(s): F11.90 - Opioid use, unspecified, uncomplicated (5) Rheumatoid arthritis: Code(s): M06.9 - Rheumatoid arthritis, unspecified (6) Non-healing wound of left lower extremity: Code(s): S81.802A - Unspecified open wound, left lower leg, initial encounter Plan Patient has shown accountability for his medication regimen and the pill count was accurate. There is no evidence of misuse, abuse or diversion at this time. MassPat reviewed. Patient will stop Fentanyl due to low benefit. He will continue to use hydromorphone for wound care/dressing changes as needed. I will hold off on refilling him with hydromorphone at this time as he has surplus of #44 pills and will continue use it prn. Continue gabapentin as before but adjust times as needed and duloxetine at bedtime. Follow up with Wound Center as planned, consider hyperbaric oxygen therapy. All questions were answered and the patient is in agreement with the plan. Follow up in 4-5 weeks for a pill count or sooner if needed. Medications: Refilled duloxetine 20 mg PO BEDTIME 90 days 90 caps 1RF for pain G62.9 - Polyneuro nghia, unspecified, G89.29 - Other chronic pain, M79.605 - Pain in left leg Discontinued fentanyl 12 mcg/hr Partial Fill upon patient request. Discontinued Reason: Patient Completed Course 1 patch transdermal Q72H 15 days 5 ea 0RF pain G62.9 - Polyneuropathy, unspecified, G89.29 - Other chronic pain, L88 - Pyoderma gangrenosum, M79.605 - Pain in left leg Coding Level of Care Code Est Pt Level 4 (88173) Diagnoses Peripheral neuropathy G62.9 Chronic pain of left lower extremity M79.605; G89.29 Pyoderma gangrenosum L88 Chronic, continuous use of opioids F11.90 Rheumatoid arthritis M06.9 Non-healing wound of left lower extremity S81.802A
[2023-07-13 10:54] VITALS: PULSE 72; RESP 16; O2SAT 93
== END 2023-07-13 11:16 | disposition home or self-care (01) ==
PROVIDERS: PCP Internal Medicine; Visit Provider Nurse Practitioner Family
DX: G62.9 Polyneuropathy, unspecified (principal); M79.605 Pain in left leg; G89.29 Other chronic pain; Z79.891 Long term (current) use of opiate analgesic; L88 Pyoderma gangrenosum; M06.9 Rheumatoid arthritis, unspecified; S81.802A Unspecified open wound, left lower leg, initial encounter
CPT/HCPCS: 99214

== ENCOUNTER → 2023-07-13 10:31 | Outpatient (BNVA) | payer MEDICARE, SELFPAY | PROVIDERS: PCP Internal Medicine; Visit Provider Nurse Practitioner Family | DX: G62.9 Polyneuropathy, unspecified (principal); G89.29 Other chronic pain; M79.605 Pain in left leg; L88 Pyoderma gangrenosum; M06.9 Rheumatoid arthritis, unspecified; S81.802D Unspecified open wound, left lower leg, subsequent encounter; Z87.891 Personal history of nicotine dependence | CPT/HCPCS: 99212 ==

== ENCOUNTER 2023-08-16 10:31 | Outpatient (REF) | payer MEDICARE, SELFPAY ==
--- NOTE | ~2023-08-16 | XR_ITS ---
EXAMINATION: XR CHEST CLINICAL INFORMATION: COPD COMPARISON: Chest x-ray on 01/09/2022 TECHNIQUE: 2 views of the chest were obtained. FINDINGS: vascularity. LUNGS: Horizontal linear atelectasis is seen in bilateral lung bases. No pneumothorax is seen. BONES: Bony skeleton is intact. XR/XR chest 2V IMPRESSION: 1. Interval development of bilateral lung bases horizontal linear atelectasis. 2. Interval removal of central line and supporting tubes.
== END 2023-08-16 10:32 | disposition home or self-care (01) ==
LOC: HO.XRAY 10:31
PROVIDERS: PCP Internal Medicine; Visit Provider Nurse Practitioner Family
DX: R05.9 Cough, unspecified (principal); J44.9 Chronic obstructive pulmonary disease, unspecified; G62.9 Polyneuropathy, unspecified; M79.605 Pain in left leg; G89.29 Other chronic pain; L88 Pyoderma gangrenosum; S81.802A Unspecified open wound, left lower leg, initial encounter; Z79.891 Long term (current) use of opiate analgesic
CPT/HCPCS: 71046; 99212

== ENCOUNTER 2023-08-16 10:31 | Outpatient (AMB) | payer MEDICARE, SELFPAY ==
--- NOTE | 2023-08-16 10:33 | MHC.OFFVIS ---
Intake Vital Signs 08/16/23 10:46 Height 5 ft 6 in Weight 180 lb BMI 29.0 BP 139/83 Blood Pressure Location Lt brachial Position Sitting Pulse 88 Pulse Source Pulse Oximeter Pulse Oximetry (%) 91 L Oxygen Delivery Method Room Air Intake Visit Reasons: Medication Count/lvm random UDS Intake Note: Sarath comes in today for a pill count to hydromorphone, patient should have 25.5 tablets and presents with 30 tablets of hydromorphone 4mg and 1 tablet of hydromorphone 2mg tablet which he last took last night 08/15/23 at 7pm. Pain today 8.5/10 Patient will go for a random UDS today, aware that he needs to have this done today 08/16/23 before 12pm at the lab in this building on the first floor. Sarath also resigned updated opioid contract in office, signed copy was provided to patient. Drapery Hanger Required: No Accompanied by: Spouse Allergies heparin (porcine) Allergy (Severe, Verified 08/16/23 10:48) HIT HPI HPI Comments History of Present Illness Details Patient presents today for a pill count. Patient is supposed to have #25.5 pills, in his possession has #30 pills. Patient takes hydromorphone 2 mg BID prn for wound care and dressing changes as needed for moderate-severe pain. Patient has restarted duloxetine to help him with the sleep but continues to frequently wake up during the night due to significant jolting and sharp pain in his left lower extremity. Patient notes this mostly occurs on the days when he does not take hydromorphone or takes it only once a day. Patient reports worsening of his chronic non-healing LLE wound. Updated wound picture is posted below that patient shared via her iphone. Patient has not started infusion treatments due to insurance coverage. Unfortunately, his insurance does not cover hyperbaric oxygen therapy as well. He continues to regularly attend [facility] in [place]. Denies any fever, shortness of breaths, abdominal pain, constipation, nausea, sedation, dizziness, or urinary retention. Patient presents today with audible wheezing and scattered fine crackles in his bilateral lower bases with non-productive occasional cough. We will obtain chest xray to follow up on his COPD and today's exam findings. Patient encouraged deep breathing exercises. His pulse oximetry readings are 88-91% per family when he attends Wound Care center or our clinic. Discussed long-term opioid effects on respiratory system and reviewed with patient and his the risks associated with taking medications in combination with other [employer] depressants.? [facility] Medical History MDD (major depressive disorder), single episode Pressure injury of buttock, stage 1 Deep vein thrombosis 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 Acute pulmonary embolism with acute cor pulmonale Acute pulmonary embolism Cardiac arrest CKD (chronic kidney disease) stage 3, GFR 30-59 ml/min Sjogren's disease Leg pain, bilateral Elevated serum creatinine COPD (chronic obstructive pulmonary disease) HTN (hypertension) Rheumatoid arthritis Chronic ulcer of leg Surgical History History of ankle surgery History of hernia repair History of left knee replacement Family History Sister Breast cancer Father Aneurysm Mother Angina at rest Other No family history of coronary artery disease Social History Household Members: Spouse Housing: House Do you presently have visiting nurse or other home services: No Alcohol intake: current Alcohol intake frequency: holidays/special occasions only Comment: restraints Patient Tobacco Use Status: Former Tobacco user Tobacco use type: Cigarette Years Smoked: quit 2019 e-Cigarette/Vaping Use: Never Used Advance Directives Date on File: 12/23/21 service: Yes Current occupational status: retired Cognitive needs: Yes (cane) Hearing needs: No Vision needs: Yes (Pt wear glasses. ) Review of Systems Const All systems reviewed & are unremarkable except as noted in HPI and below Physical Exam Vital Signs: Last Vital Signs Pulse 88 08/16/23 10:46 BP 139/83 08/16/23 10:46 Pulse Ox 91 L 08/16/23 10:46 Oxygen Delivery Method Room Air 08/16/23 10:46 BMI result Body Mass Index 29.0 General: Appears afebrile. Alert and oriented. Mood and affect appropriate. Follows and participates in conversation appropriately. Respiratory effort is unlabored. No cough. Sitting comfortably in the wheelchair. Resp Effort & Inspection: normal respiratory effort, able to speak in complete sentences, audible wheezes, no cough, no respiratory distress and No symmetric chest movement Auscultation: crackles bilateral at the base and in the lower lung ryan and diffuse, no rales and wheezes expiratory wheezes and scattered wheezes Extrem Other: Left lower leg dressed in bulky dressing, dry and intact. Picture shared by patient via iphone photo. Photo is taken as of 08/15/23 per family. General: Yes capillary refill normal and Yes no calf tenderness Psych Appearance: grossly normal and well kempt Mental Status: mental status grossly normal Speech and movement: Normal speech and movement present and Clear speech present Affect: normal affect Attitude: cooperative Thought process: Normal thought process present Thought content: Normal thought content present, suicidality (none), no hallucinations and Depressive thoughts present Insight: Good insight present (Psych) Results Reviewed Results Reviewed: Assessment & Plan Assessment & Plan (1) Cough: Code(s): R05.9 - Cough, unspecified (2) Peripheral neuropathy: Code(s): G62.9 - Polyneuropathy, unspecified (3) Chronic pain of left lower extremity: Code(s): M79.605 - Pain in left leg; G89.29 - Other chronic pain (4) Pyoderma gangrenosum: Code(s): L88 - Pyoderma gangrenosum (5) Chronic, continuous use of opioids: Code(s): F11.90 - Opioid use, unspecified, uncomplicated (6) Non-healing wound of left lower extremity: Code(s): S81.802A - Unspecified open wound, left lower leg, initial encounter Plan Patient has shown accountability for his medication regimen and the pill count was accurate. There is no evidence of misuse, abuse or diversion at this time. [employer] reviewed. Patient will continue to use hydromorphone for wound care/dressing changes and moderate-severe pain as needed. I will hold off on refilling him with hydromorphone at this time as he has surplus. Due to medication shortage of 2 mg of hydromorphone, patient was sent script of hydromorphone 4 mg #30 tabs and pill splitter to provide him 2 mg per dose. Continue gabapentin and duloxetine. Chest xray to follow up on today's exam findings and chronic cough related to COPD. Discussed long-term opioid effects on respiratory system and reviewed with patient and his the risks associated with taking medications in combination with other [employer] depressants. Follow up with Wound and Dermatology Centers as scheduled. All questions were answered and the patient is in agreement with the plan. Follow up in 4 weeks for a pill count or sooner if needed. Medications: Refilled duloxetine 30 mg PO DAILY 30 caps 1RF pain 30 days G62.9 - Polyneuropathy, unspecified, G89.29 - Other chronic pain, M79.605 - Pain in left leg gabapentin 800 mg PO TID 90 tabs 1RF for pain G62.9 - Polyneuropathy, unspecified, G89.29 - Other chronic pain, M79.605 - Pain in left leg Coding Level of Care Code Est Pt Level 4 (10843) Diagnoses Cough R05.9 Peripheral neuropathy G62.9 Chronic pain of left lower extremity M79.605; G89.29 Pyoderma gangrenosum L88 Chronic, continuous use of opioids F11.90 Non-healing wound of left lower extremity S81.802A
[2023-08-16 10:46] VITALS: BP 139/83; PULSE 88; O2SAT 91; BMI 29.0
== END 2023-08-16 11:19 | disposition home or self-care (01) ==
PROVIDERS: PCP Internal Medicine; Visit Provider Nurse Practitioner Family
DX: R05.9 Cough, unspecified (principal); G62.9 Polyneuropathy, unspecified; M79.605 Pain in left leg; Z79.891 Long term (current) use of opiate analgesic; G89.29 Other chronic pain; L88 Pyoderma gangrenosum; S81.802A Unspecified open wound, left lower leg, initial encounter
CPT/HCPCS: 99214

== ENCOUNTER 2023-08-20 08:11 | Outpatient (REF) | payer MEDICARE, SELFPAY ==
[2023-08-20 11:40] LABS: MANUAL DIFF FLAG NO
[2023-08-20 11:41] LABS: Basophils Absolute Auto 0.1 X10*3/uL (0.0-0.2); Basophils Percent Auto 0.7 % (0-2); Eosinophils Absolute Auto 0.1 X10*3/uL (0.0-0.4); Eosinophils Percent Auto 1.3 % (0-4); Hematocrit 46.7 % (42.0-52.0); Hemoglobin 14.5 g/dl (14.0-18.0); Imm Gran Abs Auto 0.04 X10*3/uL (0.00-0.03); Imm Gran Pct Auto 0.4 % (0.0-0.4); Lymphocytes Absolute Auto 1.9 X10*3/uL (1.2-4.9); Lymphocytes Percent Auto 21.3 % (20-40); Mean Corpuscular Hemoglobin 27.4 pg (27.0-33.0); Mean Corpuscular Volume 88.3 fL (80.0-98.0); Mean Platelet Volume 9.4 fL (9.4-12.4); Monocytes Absolute Auto 0.7 X10*3/uL (0.1-1.2); Monocytes Percent Auto 7.2 % (2-11); Neutrophils Absolute Auto 6.3 x10*3/uL (2.0-8.3); Neutrophils Percent Auto 69.1 % (45-73); Platelet Count 252 X10*3/uL (160-400); Red Blood Count 5.29 X10*6/uL (4.60-5.80); Red Cell Distribution Width 15.9 % (11.0-16.0); White Blood Count 9.1 X10*3/uL (4.8-10.8)
[2023-08-20 12:06] LABS: Alanine Aminotransferase 29 U/L (0-40); Albumin Level 4.1 g/dL (3.5-5.0); Alkaline Phosphatase 51 U/L (39-117); Anion Gap 13 (12-20); Aspartate Amino Transferase 17 U/L (5-37); Bilirubin Total 0.5 mg/dL (0.0-1.0); Blood Urea Nitrogen 17 mg/dL (9-16); Calcium 9.6 mg/dL (8.4-10.2); Carbon Dioxide 25 mmol/L (22-29); Chloride 108 mmol/L (96-108); Estimated Glomerular Filt Rate 50; Glucose Random 92 mg/dL (60-115); Potassium 3.8 mmol/L (3.3-5.1); Sodium 142 mmol/L (135-145); Total Protein 7.1 g/dL (6.5-8.0)
== END 2023-08-20 08:12 | disposition home or self-care (01) ==
LOC: HO.HMGCLDS 08:11
PROVIDERS: PCP Internal Medicine; Visit Provider Internal Medicine
DX: N28.9 Disorder of kidney and ureter, unspecified (principal)
CPT/HCPCS: 36415; 80053; 85025

== ENCOUNTER 2023-09-03 10:36 | Outpatient (AMB) | payer MEDICARE, SELFPAY ==
[2023-09-03 10:38] VITALS: BP 130/86; PULSE 73; O2SAT 91; BMI 31.3
--- NOTE | 2023-09-03 10:38 | A.OFFPC_ITS ---
Vital Signs 09/03/23 10:38 Height 5 ft 6 in Weight 193 lb 12.581 oz BMI 31.3 BP 130/86 Blood Pressure Location Lt brachial Position Sitting Pulse 73 Pulse Source Pulse Oximeter Pulse Oximetry (%) 91 L Oxygen Delivery Method Room Air Intake Visit Reasons: pyoderma gangrenosum Intake Note: Patient is here to follow up on pyoderma gangrenosum Lead Data Architect Required: No Allergies heparin (porcine) Allergy (Severe, Verified 09/03/23 10:39) HIT Tobacco use date assessed: 09/03/23 Fall risk assessment: No Falls in past year Last assessed Fall Risk: 09/03/23 Dental Screening Dental Screen Date: 09/03/23 HPI pyoderma gangrenosum HPI Details 77-year-old obese male with rheumatoid a rthritis chronic kidney disease COPD hypertension history of pulmonary embolism pyoderma gangrenosum chronic anemia and hypercholesterolemia coming in for follow-up last seen in May 2023. Receive note from [facility] dermatology pyoderma gangrenosum resolves with systemic steroids wound care psoriatic arthritis on infliximab. Patient also follows up with pain management on narcotic pain medication and duloxetine and gabapentin COUNT INCLUDES THE [facility] Medical History MDD (major depressive disorder), single episode Pressure injury of buttock, stage 1 Deep vein thrombosis 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 Acute pulmonary embolism with acute cor pulmonale Acute pulmonary embolism Cardiac arrest CKD (chronic kidney disease) stage 3, GFR 30-59 ml/min Sjogren's disease Leg pain, bilateral Elevated serum creatinine COPD (chronic obstructive pulmonary disease) HTN (hypertension) Rheumatoid arthritis Chronic ulcer of leg Surgical History History of ankle surgery History of hernia repair History of left knee replacement Family History Sister Breast cancer Father Aneurysm Mother Angina at rest Other No family history of coronary artery disease Social History Household Members: Spouse Housing: House Do you presently have visiting nurse or other home services: No Alcohol intake: current Alcohol intake frequency: holidays/special occasions only Comment: restraints Patient Tobacco Use Status: Former Tobacco user Tobacco use type: Cigarette Years Smoked: quit 2018 e-Cigarette/Vaping Use: Never Used Advance Directives Date on File: 12/23/21 service: Yes Current occupational status: retired Cognitive needs: Yes (cane) Hearing needs: No Vision needs: Yes (Pt wear glasses. ) Questionnaire Thrive Questionnaire Date Thrive assessed: 09/03/23 AUDIT C Alcohol Use Questionnaire (AUDIT-C) 1. How often do you have a drink containing alcohol?: Never 2. How many drinks containing alcohol do you have on a typical day when you are drinking?: 1 or 2 (0) 3. How often do you have six or more drinks on one occasion?: Never Total Score: 0 RENETTA-7 AMB Questionnaire RENETTA-7 Date RENETTA - 7 assessed: 09/03/23 Source: Developed by Drs. Ronal Rivero, Cecelia Cortez, Johny Ocasio and colleagues, with an educational samantha from [employer]. Physical exam (Primary Care) Vital Signs: Last Vital Signs Pulse 73 09/03/23 10:38 BP 130/86 09/03/23 10:38 Pulse Ox 91 L 09/03/23 10:38 Oxygen Delivery Method Room Air 09/03/23 10:38 BMI result Body Mass Index 31.3 Tobacco/Smoking Status: Tobacco use Status Tobacco use date assessed 09/03/23 09/03/23 10:39 Patient Tobacco Use Status Former Tobacco user 09/03/23 10:39 Tobacco use type Cigarette 09/03/23 10:39 e-Cigarette/Vaping Use Never Used 09/03/23 10:39 Thrive Assessment: Date of Thrive Assessment Date Thrive assessed 09/03/23 09/03/23 10:39 Const General: alert; No acute distress Eyes Conjunctivae: conjunctivae normal Resp Auscultation: clear to auscultation bilaterally Cardio Rate: regular rate Rhythm: regular rhythm GI Inspection: Yes normal to inspection Assessment and Plan Assessment & Plan (1) Pyoderma gangrenosum: Code(s): L88 - Pyoderma gangrenosum Plan: Patient is being followed up by Wound Care as well as [place] dermat[facility] on steroids prednisone (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 (3) Chronic, continuous use of opioids: Code(s): F11.90 - Opioid use, unspecified, uncomplicated Plan: Patient is under pain management. (4) HTN (hypertension): Code(s): I10 - Essential (primary) hypertension Plan: Continue with blood pressure medication. Decrease salt intake and exercise presently on metoprolol 25 mg twice a day (5) Rheumatoid arthritis: Code(s): M06.9 - Rheumatoid arthritis, unspecified Plan: Presently on infliximab (6) COPD (chronic obstructive pulmonary disease): Code(s): J44.9 - Chronic obstructive pulmonary disease, unspecified Plan: Continue with inhalers (7) CKD (chronic kidney disease) stage 3, GFR 30-59 ml/min: Code(s): N18.30 - Chronic kidney disease, stage 3 unspecified Plan: Stable continue to monitor kidney function (8) Hypertriglyceridemia: Code(s): E78.1 - Pure hyperglyceridemia Plan: Avoid fried foods, chicken skin, eggs, butter margarine, pastries and meat. 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
== END 2023-09-03 11:35 | disposition home or self-care (01) ==
PROVIDERS: PCP Internal Medicine; Visit Provider Internal Medicine
DX: M06.9 Rheumatoid arthritis, unspecified (principal); L88 Pyoderma gangrenosum; D75.829 Heparin-induced thrombocytopenia, unspecified; J44.9 Chronic obstructive pulmonary disease, unspecified; N18.30 Chronic kidney disease, stage 3 unspecified; F19.20 Other psychoactive substance dependence, uncomplicated; F11.90 Opioid use, unspecified, uncomplicated; I10 Essential (primary) hypertension; E78.1 Pure hyperglyceridemia
CPT/HCPCS: 99214

== ENCOUNTER 2023-09-07 12:35 | Outpatient (AMB) | payer MEDICARE, SELFPAY ==
[2023-09-07 12:41] VITALS: BP 142/80; PULSE 74; O2SAT 89; BMI 31.6
--- NOTE | 2023-09-07 12:41 | A.OFFVIS_ITS ---
Intake Vital Signs 3 09/07/23 12:41 Height 5 ft 6 in Weight 195 lb 12.328 oz BMI 31.6 BP 142/80 H Blood Pressure Location Rt brachial Position Sitting Pulse 74 Pulse Source Pulse Oximeter Pulse Oximetry (%) 89 L Oxygen Delivery Method Room Air Intake Visit Reasons: RA Intake Note: Patient last seen 05/28/23 presents today for follow up. Reports he started infusion 2 weeks ago, made him tired. Spa Director/Finance Required: No Accompanied by: Spouse Allergies heparin (porcine) Allergy (Severe, Verified 09/07/23 12:45) HIT Medication List - Last Reconciled 09/07/23 by Kofi Horne MD acetaminophen (Tylenol Extra Strength) 1,000 mg PO Q6H PRN albuterol sulfate 90 mcg/actuation (ProAir HFA) 2 puffs inhalation Q6H PRN benfotiamine 250 mg PO BID duloxetine 30 mg PO DAILY 30 days fluticasone propionate 50 mcg/actuation (Flonase Allergy Relief) 2 sprays intranasal DAILY gabapentin 800 mg PO TID hydromorphone 4 mg PO BID-TID PRN 30 days infliximab-abda (Renflexis) mg IV metoprolol tartrate 25 mg PO BID miscellaneous medical supply As directed naloxone 4 mg/actuation (Narcan) 4 mg intranasal Q2M PRN prednisone 10 mg PO DAILY umeclidinium-vilanterol 62.5-25 mcg/actuation (Anoro Ellipta) 1 inh inhalation DAILY PRN HPI HPI Comments 2 History of Present Illness0 Details 77-year-old male with 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 Recently patient was started on Renflexis infusions. The plan is 5 milligrams/kilogram every 6 weeks. He received the 1st loading dose 2 weeks ago and will be receiving the 2nd loading dose tomorrow. He was also started on prednisone 10 mg daily about a month ago. He believes that he has gained about 10 lb. showed me some pictures, the wound is getting a little smaller. Patient states that he keeps getting sudden severe shooting pains that start from his left foot into his spine, these happen abruptly while sitting down and also happened suddenly in the middle of the night. His inflammatory arthritis is well controlled. Initial history: This is a 76-year-old male with a past medical history of rheumatoid arthritis, Sjogren's, pyoderma gangrenosum, hypertension, bilateral PE who presents for evaluation of left lower extremity open wounds. Patient is originally from [place], moved to [place] in June of 2021. Patient stated that he was initially diagnosed with Sjogren's at the [facility] in the due to dry eyes. He was eventually diagnosed with rheumatoid arthritis and he had been on Enbrel since the for many years. Enbrel was switched to reflect this for about 1 year but it was not effective. He was switched to Actemra in June of 2021 to bring down his inflammatory markers down. He received Actemra infusions for 2-3 months then moved to [place]. In [place] patient initially could not find a ammonia refrigeration technician, he was eventually evaluated by Dari Good. Starting June of 2021 patient started having open left lower extremity wounds that were quite painful. He was admitted at the hospital in summer for evaluation of those wounds. 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 He was started on argatroban then switched to warfarin on discharge. Patient was evaluated by fuel cell systems engineer in [place] Dr. Godwin who started patient on Rinvoq 3-4 months ago. Tear they state that the smaller lower extremity wounds have closed and the large wound is not getting worse and might be getting somewhat better. With regards to his joint pain patient states he is about the same, he has stiffness of his hands worse on the right hand. He has bilateral hand contractures from many years of RA. [facility] Medical History MDD (major depressive disorder), single episode Pressure injury of buttock, stage 1 Deep vein thrombosis 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 Acute pulmonary embolism with acute cor pulmonale Acute pulmonary embolism Cardiac arrest CKD (chronic kidney disease) stage 3, GFR 30-59 ml/min Sjogren's disease Leg pain, bilateral Elevated serum creatinine COPD (chronic obstructive pulmonary disease) HTN (hypertension) Rheumatoid arthritis Chronic ulcer of leg Surgical History History of ankle surgery History of hernia repair History of left knee replacement Family History Sister Breast cancer Father Aneurysm Mother Angina at rest Other No family history of coronary artery disease Social History Household Members: Spouse Housing: House Do you presently have visiting nurse or other home services: No Alcohol intake: current Alcohol intake frequency: holidays/special occasions only Comment: restraints Patient Tobacco Use Status: Former Tobacco user Tobacco use type: Cigarette Years Smoked: quit 2018 e-Cigarette/Vaping Use: Never Used Advance Directives Date on File: 12/23/21 service: Yes Current occupational status: retired Cognitive needs: Yes (cane) Hearing needs: No Vision needs: Yes (Pt wear glasses. ) Review of Systems Skin/Breast Reports non-healing lesions, Reports skin pain, Reports skin ulcer and Reports wounds Physical Exam Vital Signs: Last Vital Signs Pulse 74 09/07/23 12:41 BP 142/80 H 09/07/23 12:41 Pulse Ox 89 L 09/07/23 12:41 Oxygen Delivery Method Room Air 09/07/23 12:41 BMI result Body Mass Index 31.6 Const General: cooperative, healthy appearing and comfortable Nutritional Appearance: overweight Limitations: wheelchair HEENT Head: Yes normocephalic and Yes atraumatic Resp Effort & Inspection: normal respiratory effort and able to speak in complete sentences Skin Other: 09/01/2023 09/01/2023 09/01/2023 Extrem Other: Right hand RA deformities with ulnar deviation and synovial thickening of his MCPs. Osteoarthritic changes of both hands with Heberden's and Byran's nodes Bilateral wrist contracture, very limited flexion extension with no active synovitis today. Normal range of motion of elbows and shoulders There is no active synovitis Normal nailfold capillaroscopy Results Reviewed Results Reviewed: Assessment & Plan Assessment & Plan (1) Pyoderma gangrenosum: Code(s): L88 - Pyoderma gangrenosum Plan: This is a 77-year-old male originally from [place], recently moved to [place] with past medical history of seronegative RA/Sjogren's (dry mouth +++Ro) diagnosed in the treated with Enbrel for at least 15 years years. Patient had right lower extremity wounds which were treated with Renflexis & prednisone with good results however he was having recurrent knee swelling. He was switched to Kevzara early 2021 with some improvement. Patient developed left lower extremity pyoderma gangrenosum. This started around June 2021. 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 He is currently on warfarin now switched to rivaroxaban by director of retail merchandising. Patient was started on Rinvoq by his fuel cell systems engineer Dr. Omar Cantor in [place], with little improvement, then dose was increased from 15 mg daily to 30 mg daily for a few months without significant improvement. A steroid tapering course was prescribed 6 months ago which provided temporary improvement Reviewed records from patient's previous ammonia refrigeration technician when he had the left knee synovitis, synovial fluid showed CPPD crystals consistent with pseudogout. My belief is Renflexis and prednisone was working well for rheumatoid arthritis and pyoderma gangrenosum, when patient was switched to Kevzara the pyoderma gangrenosum recurred. Patient was started on Renflexis recently, the plan is to do 5 mg/kg at 0, 2 and 6 weeks and stay on 5 mg/kg every 6 weeks. Patient received the 1st loading dose 2 weeks ago and should get the 2nd loading dose tomorrow Prednisone 10 mg daily was also added about a month ago. There is some improvement. The wound is shrinking. I believe this is a good treatment regimen for his pyoderma gangrenosum. Infliximab products have been used successfully for treatment of pyoderma gangrenosum. Patient should continue with current management, can consider increasing Renflexis dose. Steroid tapering per Dermatology Continue to follow-up with fuel cell systems engineer Follow-up in 3 months (2) Rheumatoid arthritis: Code(s): M06.9 - Rheumatoid arthritis, unspecified Qualifiers: Rheumatoid arthritis location: multiple sites Rheumatoid factor presence: without rheumatoid factor Qualified Code(s): M06.09 - Rheumatoid arthritis without rheumatoid factor, multiple sites Plan: Seronegative and deforming. Currently well controlled. (3) Chronic pain of left lower extremity: Code(s): M79.605 - Pain in left leg; G89.29 - Other chronic pain Plan: Advised patient to discuss with pain management, ? Nerve block Plan I spent 30 minutes reviewing patient's chart, evaluating patient, counseling patient & his and documenting in the chart Coding Level of Care Code Est Pt Level 4 (28386) Diagnoses Pyoderma gangrenosum L88 Rheumatoid arthritis of multiple sites with negative rheumatoid factor M06.09 Rheumatoid arthritis location: multiple sites Rheumatoid factor presence: without rheumatoid factor Chronic pain of left lower extremity M79.605; G89.29
== END 2023-09-07 13:22 | disposition home or self-care (01) ==
PROVIDERS: PCP Internal Medicine; Visit Provider Student in an Organized Health Care Education/Training Program
DX: L88 Pyoderma gangrenosum (principal); M06.09 Rheumatoid arthritis without rheumatoid factor, multiple sites; M79.605 Pain in left leg; G89.29 Other chronic pain
CPT/HCPCS: 99214

== ENCOUNTER → 2023-09-07 12:35 | Outpatient (BNVA) | payer MEDICARE, SELFPAY | PROVIDERS: PCP Internal Medicine; Visit Provider Student in an Organized Health Care Education/Training Program | DX: M06.09 Rheumatoid arthritis without rheumatoid factor, multiple sites (principal); M79.605 Pain in left leg; L88 Pyoderma gangrenosum; G89.29 Other chronic pain | CPT/HCPCS: 99212 ==

== ENCOUNTER 2023-09-09 14:58 | Outpatient (REF) | payer MEDICARE, SELFPAY ==
--- NOTE | ~2023-09-09 | XR_ITS ---
EXAMINATION: XR SHOULDER, LEFT CLINICAL INFORMATION: Rheumatoid arthritis COMPARISON: None available. TECHNIQUE: AP external rotation, Grashey, scapular Y, and axillary views of the left shoulder. FINDINGS: There is mild narrowing cough left glenohumeral joint without erosive changes or fractures or dislocation. There is prominent keel shape spur extending from the acromion, may cause subacromion impingement. 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
--- NOTE | ~2023-09-09 | XR_ITS ---
EXAMINATION: XR SHOULDER, RIGHT CLINICAL INFORMATION: Rheumatoid arthritis without rheumatoid factor, pain COMPARISON: None available. TECHNIQUE: AP external rotation, Grashey, scapular Y views of the right shoulder. FINDINGS: There is narrowing of right glenohumeral joint without fractures or subluxations. There are mild degenerative changes in the acromioclavicular joint. There is no evidence of fractures or subluxations and no cephalad migration of the right humeral head. 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
== END 2023-09-09 14:59 | disposition home or self-care (01) ==
LOC: HO.XRAY 14:58
PROVIDERS: PCP Internal Medicine; Visit Provider Student in an Organized Health Care Education/Training Program
DX: M06.09 Rheumatoid arthritis without rheumatoid factor, multiple sites (principal)
CPT/HCPCS: 73030

== ENCOUNTER 2023-09-13 10:28 | Outpatient (AMB) | payer MEDICARE, SELFPAY ==
--- NOTE | 2023-09-13 10:31 | MHC.OFFVIS ---
Intake Vital Signs 09/13/23 10:43 Height 5 ft 6 in Weight 190 lb BMI 30.7 BP 133/96 H Blood Pressure Location Lt brachial Position Sitting Pulse 67 Pulse Source Pulse Oximeter Pulse Oximetry (%) 96 Oxygen Delivery Method Room Air Intake Visit Reasons: PILL COUNT Intake Note: Sarath comes in for a pill count to hydromorphone, patient should have 0 tablets and presents with 10 tablets which he last took last night 09/12/23 at 7pm. Pain today 02/18. Cosmetology Professor Required: No Accompanied by: Spouse Allergies heparin (porcine) Allergy (Severe, Verified 09/13/23 10:44) HIT HPI HPI Comments History of Present Illness Details Patient presents today for a pill count. Patient is supposed to have #0 pills, in his possession has #10 pills. Patient takes hydromorphone 2 mg BID prn for wound care and dressing changes as needed for moderate-severe pain. Patient continues to take duloxetine which has been beneficial for his pain and sleep. Patient reports starting infusion treatments for his chronic non-healing LLE wound. He continues to regularly attend [facility] in [place]. Denies any fever, shortness of breaths, abdominal pain, constipation, nausea, sedation, dizziness, or urinary retention. We discussed interventional treatments for chronic left lower extremity pain in his wound side and instep left foot. 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 His nociceptive pain is worse than neuropathic pain. Denies any significant pain in his right leg or foot. We discussed diagnostic nerve blocks which are limiting to patient's condition as we are not able to pursue longer term modalities at this time even if he has good response to nerve blocks. Patient will continue medical management with dilaudid, duloxetine and gabapentin. [facility] Medical History MDD (major depressive disorder), single episode Pressure injury of buttock, stage 1 Deep vein thrombosis 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 Acute pulmonary embolism with acute cor pulmonale Acute pulmonary embolism Cardiac arrest CKD (chronic kidney disease) stage 3, GFR 30-59 ml/min Sjogren's disease Leg pain, bilateral Elevated serum creatinine COPD (chronic obstructive pulmonary disease) HTN (hypertension) Rheumatoid arthritis Chronic ulcer of leg Surgical History History of ankle surgery History of hernia repair History of left knee replacement Family History Sister Breast cancer Father Aneurysm Mother Angina at rest Other No family history of coronary artery disease Social History Household Members: Spouse Housing: House Do you presently have visiting nurse or other home services: No Alcohol intake: current Alcohol intake frequency: holidays/special occasions only Comment: restraints Patient Tobacco Use Status: Former Tobacco user Tobacco use type: Cigarette Years Smoked: quit 2018 e-Cigarette/Vaping Use: Never Used Advance Directives Date on File: 12/23/21 service: Yes Current occupational status: retired Cognitive needs: Yes (cane) Hearing needs: No Vision needs: Yes (Pt wear glasses. ) Review of Systems Const All systems reviewed & are unremarkable except as noted in HPI and below Physical Exam Vital Signs: Last Vital Signs Pulse 67 09/13/23 10:43 BP 133/96 H 09/13/23 10:43 Pulse Ox 96 09/13/23 10:43 Oxygen Delivery Method Room Air 09/13/23 10:43 BMI result Body Mass Index 30.7 General: Appears afebrile. Alert and oriented. Mood and affect appropriate. Follows and participates in conversation appropriately. Respiratory effort is unlabored. No cough. Sitting comfortably in the wheelchair. Resp Effort & Inspection: normal respiratory effort, able to speak in complete sentences, no cough, no respiratory distress and No symmetric chest movement Extrem Other: Left lower leg dressed in large dressing, dry and intact. Psych Appearance: grossly normal and well kempt Mental Status: mental status grossly normal Speech and movement: Normal speech and movement present and Clear speech present Affect: normal affect and Sad affect present Attitude: cooperative Thought process: Normal thought process present Thought content: Normal thought content present, suicidality (none), no hallucinations and Depressive thoughts present Insight: Good insight present (Psych) Results Reviewed Results Reviewed: Assessment & Plan Assessment & Plan (1) Peripheral neuropathy: Code(s): G62.9 - Polyneuropathy, unspecified (2) Chronic pain of left lower extremity: Code(s): M79.605 - Pain in left leg; G89.29 - Other chronic pain (3) Pyoderma gangrenosum: Code(s): L88 - Pyoderma gangrenosum (4) Chronic, continuous use of opioids: Code(s): F11.90 - Opioid use, unspecified, uncomplicated (5) Non-healing wound of left lower extremity: Code(s): S81.802A - Unspecified open wound, left lower leg, initial encounter Plan Patient has shown accountability for his medication regimen and the pill count was accurate. There is no evidence of misuse, abuse or diversion at this time. [employer] reviewed. Patient will continue to use hydromorphone for wound care/dressing changes and moderate-severe pain as needed. Script sent for hydromorphone 4 mg # 30 tabs, continue to split medication to obtain 2 mg dose BID-TID prn with advanced date of 09/17/23. Continue gabapentin and duloxetine. Interventional treatments were once again discussed with patient and his for chronic left lower extremity pain in his wound side and instep left foot. 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 His nociceptive pain is worse than neuropathic pain. Denies any significant symptoms in his RLE. We discussed diagnostic nerve blocks, including lumbar sympathetic and left peroneal nerve blocks which are limiting to patient's condition as we are not able to pursue longer term modalities at this time even if he has good response to nerve blocks. Patient will continue medical management with dilaudid, duloxetine and gabapentin. [facility]. All questions were answered and the patient is in agreement with the plan. Follow up in 4 weeks for a pill count or sooner if needed. Medications: Refilled hydromorphone Take half a tab twice-three times per day as needed Partial Fill upon patient request. 4 mg PO BID-TID PRN 30 tabs 0RF pain (scale score 7-10) 30 days G62.9 - Polyneuropathy, unspecified, G89.29 - Other chronic pain, M79.605 - Pain in left leg Coding Level of Care Code Est Pt Level 4 (92132) Diagnoses Peripheral neuropathy G62.9 Chronic pain of left lower extremity M79.605; G89.29 Pyoderma gangrenosum L88 Chronic, continuous use of opioids F11.90 Non-healing wound of left lower extremity S81.802A
[2023-09-13 10:43] VITALS: BP 133/96; PULSE 67; O2SAT 96; BMI 30.7
== END 2023-09-13 10:58 | disposition home or self-care (01) ==
PROVIDERS: PCP Internal Medicine; Visit Provider Nurse Practitioner Family
DX: G62.9 Polyneuropathy, unspecified (principal); M79.605 Pain in left leg; G89.29 Other chronic pain; Z79.891 Long term (current) use of opiate analgesic; L88 Pyoderma gangrenosum; S81.802A Unspecified open wound, left lower leg, initial encounter
CPT/HCPCS: 99214

== ENCOUNTER → 2023-09-13 10:28 | Outpatient (BNVA) | payer MEDICARE, SELFPAY | PROVIDERS: PCP Internal Medicine; Visit Provider Nurse Practitioner Family | DX: Z51.81 Encounter for therapeutic drug level monitoring (principal); F11.20 Opioid dependence, uncomplicated; G62.9 Polyneuropathy, unspecified; M79.605 Pain in left leg; L88 Pyoderma gangrenosum; G89.29 Other chronic pain; S81.802D Unspecified open wound, left lower leg, subsequent encounter | CPT/HCPCS: 99212 ==

== ENCOUNTER 2023-09-28 10:24 | Outpatient (REF) | payer MEDICARE, SELFPAY ==
--- NOTE | ~2023-09-28 | MM_ITS ---
EXAMINATION: BONE DENSITOMETRY CLINICAL INDICATION: Age-related osteoporosis without current pathological fracture. COMPARISON: This is the patient's baseline examination. TECHNIQUE: Using a [employer] Skis DXA System (software version: 13.1) manufactured by [employer], dual-energy x-ray absorptiometry was performed of the lumbar spine and right hip due to patient's inability to straighten left leg. The images are of good technical quality. Summary results are attached. FINDINGS: RIGHT FEMUR, NECK: BMD 0.853 g/cm2, Z-score -0.4, T-score -1.7, osteopenia. RIGHT FEMUR, TOTAL: BMD 1.004 g/cm2, Z-score 0.2, T-score -0.7, normal. AP SPINE L1-L4: BMD 1.244 g/cm2, Z-score 0.6, T-score 0.2, normal. IDENTIFIED RISK FACTORS: Height loss, rheumatoid arthritis. HISTORY OF FRACTURE: None listed. MEDICATIONS: Calcium, vitamin D. MM/XR DEXA axial skeleton IMPRESSION: 1. DIAGNOSIS: Osteopenia based on the lowest T-score value of -1.7 in the femoral neck applying World Health Organization criteria. 2. 10-YEAR FRACTURE RISK PREDICTION, FRAX: Major osteoporotic fracture (clinical spine, forearm, hip or shoulder) 9.8%. Hip fracture 3.6%. 3. Treatment Recommendations: NOF guidelines recommend consideration for treatment in postmenopausal women and men age 50 and older presenting with the following: -A hip or vertebral (clinical or morphometric) fracture. -T-score less than or equal to -2.5 at the femoral neck or spine after appropriate evaluation to exclude secondary causes. -Low bone mass at the hip or spine and a 10-year fracture probability by FRAX of greater than or equal to 3% for hip fracture or greater than or equal to 20% for major osteoporotic fracture based on the [place] adapted WHO algorithm. 4. Other Recommendations: All treatment decisions require clinical judgment and consideration of individual patient factors, including patient preferences, comorbidities, previous drug use, risk factors not captured in the FRAX model (e.g. frailty, falls, vitamin D deficiency, increased bone turnover, interval significant decline in bone density) and possible under or overestimation of fracture risk by FRAX. Additional medical evaluation for secondary cause of low bone mineral density may be appropriate. FUTURE SCAN RECOMMENDATION: People with diagnosed cases of osteoporosis or at high risk for fracture should have regular bone mineral density tests. For patients eligible for Medicare, routine testing is allowed once every 2 years. The testing frequency can be increased to one year for patients who have rapidly progressing disease, those who are receiving or discontinuing medical therapy to restore bone mass, or have additional risk factors.
== END 2023-09-28 10:25 | disposition home or self-care (01) ==
LOC: HO.MAMMO 10:24
PROVIDERS: PCP Internal Medicine; Visit Provider Internal Medicine
DX: Z13.820 Encounter for screening for osteoporosis (principal); M81.0 Age-related osteoporosis without current pathological fracture; F19.20 Other psychoactive substance dependence, uncomplicated
CPT/HCPCS: 77080

== ENCOUNTER 2023-10-04 10:46 | Outpatient (AMB) | payer MEDICARE, SELFPAY ==
--- NOTE | 2023-10-03 20:40 | MHC.OFFVIS ---
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 Required: No School Bus Driver/Mechanic: School Bus Driver/Mechanic offered & declined Accompanied by: Spouse Allergies heparin (porcine) Allergy (Severe, Verified 10/04/23 11:02) HIT Medication List - Last Reconciled 10/04/23 by Kianna Mendez LPN acetaminophen (Tylenol Extra Strength) 1,000 mg PO Q6H PRN albuterol sulfate 90 mcg/actuation (ProAir HFA) 2 puffs inhalation Q6H PRN benfotiamine 250 mg PO BID duloxetine 30 mg PO DAILY 30 days epinephrine (Adrenalin) IM fluticasone propionate 50 mcg/actuation (Flonase Allergy Relief) 2 sprays intranasal DAILY gabapentin 800 mg PO TID hydromorphone 4 mg PO BID-TID PRN 30 days infliximab-abda (Renflexis) mg IV metoprolol tartrate 25 mg PO BID miscellaneous medical supply As directed naloxone 4 mg/actuation (Narcan) 4 mg intranasal Q2M PRN prednisone 7.5 mg PO DAILY umeclidinium-vilanterol 62.5-25 mcg/actuation (Anoro Ellipta) 1 inh inhalation DAILY PRN HPI COPD HPI Details Sarath is a pleasant 77 year old male, former smoker, with 30 pack year history, quit 2019, with underlying COPD, Sjogren's, provoked PE, CKD, HTN and chronic nonhealing wound on prednisone 7.5 mg QD. He presents to establish care, as he moved here from [place] and no longer is under the care of pulmonary. Overall he reports symptoms are moderately controlled on Anoro and uses albuterol MDI once daily. He reports occasional dyspnea on exertion, wheezing and cough. However he is essentially nonambulatory due to nonhealing wound on foot, any pressure results in opening of wound and has been instructed by wound care of limit weight bearing. He denies any recent hospitalizations or recent COPD exacerbations. He denies any occupational exposures. He denies any pertinent family history. [facility] Medical History MDD (major depressive disorder), single episode Pressure injury of buttock, stage 1 Deep vein thrombosis 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 Acute pulmonary embolism with acute cor pulmonale Acute pulmonary embolism Cardiac arrest CKD (chronic kidney disease) stage 3, GFR 30-59 ml/min Sjogren's disease Leg pain, bilateral Elevated serum creatinine COPD (chronic obstructive pulmonary disease) HTN (hypertension) Rheumatoid arthritis Chronic ulcer of leg Surgical History History of ankle surgery History of hernia repair History of left knee replacement Family History Sister Breast cancer Father Aneurysm Mother Angina at rest Other No family history of coronary artery disease Social History (Updated 10/04/23 @ 11:06 by Kianna Mendez LPN) Household Members: Spouse Housing: House Do you presently have visiting nurse or other home services: No Alcohol intake: current Alcohol intake frequency: holidays/special occasions only Comment: restraints Patient Tobacco Use Status: Former Tobacco user Tobacco use type: Cigarette Cigarette Packs Per Day: 1 Years Smoked: quit + years e-Cigarette/Vaping Use: Never Used Advance Directives Date on File: 12/23/21 service: Yes Current occupational status: retired Cognitive needs: Yes (cane) Hearing needs: No Vision needs: Yes (Pt wear glasses. ) Review of Systems Const Denies chills, Denies excessive sweating, Denies fever(s), Denies headache(s) and Denies night sweats Eyes Denies dry eyes, Denies irritation and Denies itchy eyes ENT Reports Normal hearing present, Denies headache(s), Denies nasal congestion, Denies nasal discharge and Denies sore throat Card Denies chest pain, Denies chest pain at rest, Denies chest pain with activity, Denies claudication, Denies orthopnea and Denies paroxysmal nocturnal dyspnea Resp Denies excessive phlegm production, Denies pain on inspiration, Denies pain with cough and Denies stridor Musc Denies myalgias Neuro Reports Normal hearing present and Denies headache(s) Endo Denies excessive sweating Jhon/Lymph Denies lymphadenopathy Aller/Immun Denies itchy eyes and Denies seasonal rhinorrhea Physical Exam Vital Signs: Last Vital Signs Pulse 83 10/04/23 10:50 BP 136/80 10/04/23 10:50 Pulse Ox 91 L 10/04/23 10:50 Oxygen Delivery Method Room Air 10/04/23 10:50 BMI result Body Mass Index 30.3 Const General: cooperative, healthy appearing, comfortable, no acute distress, well developed and alert Orientation/consciousness: patient oriented x3 Limitations: wheelchair HEENT Head: Yes normal to inspection, Yes normocephalic and Yes atraumatic Ears: hearing grossly normal bilaterally and external ears normal Eyes General: appearance normal, both eyes and all related structures Eyelids: Yes eyelids normal Sclerae: sclerae normal EOM: EOMs intact bilaterally Neck Neck: Yes normal visual inspection and Yes no lymphadenopathy Lymphatic: no lymphadenopathy noted Chest Chest palpation & inspection: normal inspection of the chest Resp Effort & Inspection: normal respiratory effort, able to speak in complete sentences, no audible wheezes, no cough, no stridor, not tachypneic, no tripod positioning and no use of accessory muscles Cardio Jugular venous distension: no JVD Rate: regular rate Skin Other: warm, dry Neuro General: patient oriented x3 Cranial nerves: Yes Normal hearing present Cognition (Neuro): normal cognition Extrem Other: LLE with edema, covered with dry, clean dressing Psych Appearance: grossly normal and well kempt Speech and movement: Normal speech and movement present and Clear speech present Affect: normal affect Attitude: cooperative Thought process: Normal thought process present Thought content: Normal thought content present Insight: Good insight present (Psych) Judgement: Good judgement present (Psych) Results Reviewed Results Reviewed: [address] [address] XRay Report Signed Patient: Sarath Gipson MR#: [id number] : 1945 Acct:[id number] Age/Sex: 77 / M ADM Date: 08/16/23 Loc: [facility] Attending Dr: Darleen AMADOR Ordering Physician: Darleen Omalley Date of Service: 08/16/23 Procedure(s): XR chest 2V Accession Number(s): [id number] cc: Darleen Omalley; Kia Stroud MD~ EXAMINATION: XR CHEST CLINICAL INFORMATION: COPD COMPARISON: Chest x-ray on 01/09/2022 TECHNIQUE: 2 views of the chest were obtained. FINDINGS: vascularity. LUNGS: Horizontal linear atelectasis is seen in bilateral lung bases. No pneumothorax is seen. BONES: Bony skeleton is intact. XR/XR chest 2V IMPRESSION: 1. Interval development of bilateral lung bases horizontal linear atelectasis. 2. Interval removal of central line and supporting tubes. Assessment & Plan Assessment & Plan (1) COPD (chronic obstructive pulmonary disease): Code(s): J44.9 - Chronic obstructive pulmonary disease, unspecified (2) Personal history of tobacco use: Code(s): Z87.891 - Personal history of nicotine dependence (3) Cough: Code(s): R05.9 - Cough, unspecified Plan Sarath presents for pulmonary evaluation for COPD, unclear severity. Will send for PFT to evaluate. Will also send for chest CT as patient with significant smoking history and no recent CT. Last CXR revealed bilateral atelectasis. At this time, patient feels symptoms are controlled on Anoro and albuterol MDI. If he feels symptoms are worsening, then will consider Trelegy. Discussed 6MWT but unfortunately patient is essentially non weight bearing on the left, so unable to perform. Patient does monitor oxygen at home and reports never decreasing below 88%. Will follow up to review results of PFT and CT. All questions were answered and patient is in agreement of plan. Orders: Orders CT chest wo IV con Today J44.9 - Chronic obstructive pulmonary disease, unspecified, R05.9 - Cough, unspecified, Z87.891 - Personal history of nicotine dependence PFT pulmonary function test Today J44.9 - Chronic obstructive pulmonary disease, unspecified Coding Level of Care Code New Pt Level 4 (91453) Diagnoses COPD (chronic obstructive pulmonary disease) J44.9 Personal history of tobacco use Z87.891 Cough R05.9
[2023-10-04 10:50] VITALS: BP 136/80; PULSE 83; O2SAT 91; BMI 30.3
== END 2023-10-04 11:52 | disposition home or self-care (01) ==
PROVIDERS: PCP Internal Medicine; Visit Provider Nurse Practitioner Family
DX: J44.9 Chronic obstructive pulmonary disease, unspecified (principal); Z87.891 Personal history of nicotine dependence; R05.9 Cough, unspecified
CPT/HCPCS: 99214

== ENCOUNTER → 2023-10-04 10:46 | Outpatient (BNVA) | payer MEDICARE, SELFPAY | PROVIDERS: PCP Internal Medicine; Visit Provider Nurse Practitioner Family | DX: J44.9 Chronic obstructive pulmonary disease, unspecified (principal); R05.9 Cough, unspecified; Z87.891 Personal history of nicotine dependence | CPT/HCPCS: 99212 ==

== ENCOUNTER 2023-10-11 10:24 | Outpatient (AMB) | payer MEDICARE, SELFPAY ==
--- NOTE | 2023-10-11 10:26 | A.OFFVIS_ITS ---
Intake Vital Signs 3 10/11/23 10:35 Height 5 ft 6 in Weight 188 lb BMI 30.3 BP 118/70 Blood Pressure Location Rt brachial Position Sitting Pulse 77 Pulse Source Pulse Oximeter Pulse Oximetry (%) 96 Oxygen Delivery Method Room Air Intake Visit Reasons: PILL COUNT Intake Note: Sarath comes in today for a pill count to hyrdomorphone, patient should have 9 tablets and presents with 25 tablets which he last took last night 10/10/23 at 7pm. 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 Patient is supposed to have #9 pills, in his possession has #25 pills. Patient takes hydromorphone 2 mg BID prn for wound care and dressing changes and as needed for moderate-severe pain. Patient continues to take duloxetine which has been beneficial for his pain and sleep. Patient reports completing 3 home infusion treatments for his chronic non- healing LLE wound. He reports mild adverse reaction due to inflammatory sensitivity trigger r/t RA with infusion treatment but notices improvements in his wound healing. Patient continues to regularly attend [facility] and [facility] Center in [place]. He is interested to titrate down on gabapentin. Denies any fever, shortness of breaths, abdominal pain, constipation, nausea, sedation, dizziness, or urinary retention. [facility] Medical History MDD (major depressive disorder), single episode Pressure injury of buttock, stage 1 Deep vein thrombosis 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 Acute pulmonary embolism with acute cor pulmonale Acute pulmonary embolism Cardiac arrest CKD (chronic kidney disease) stage 3, GFR 30-59 ml/min Sjogren's disease Leg pain, bilateral Elevated serum creatinine COPD (chronic obstructive pulmonary disease) HTN (hypertension) Rheumatoid arthritis Chronic ulcer of leg Surgical History History of ankle surgery History of hernia repair History of left knee replacement Family History Sister Breast cancer Father Aneurysm Mother Angina at rest Other No family history of coronary artery disease Social History Household Members: Spouse Housing: House Do you presently have visiting nurse or other home services: No Alcohol intake: current Alcohol intake frequency: holidays/special occasions only Comment: restraints Patient Tobacco Use Status: Former Tobacco user Tobacco use type: Cigarette Cigarette Packs Per Day: 1 Years Smoked: quit 2019/ 30+ years e-Cigarette/Vaping Use: Never Used Advance Directives Date on File: 12/23/21 service: Yes Current occupational status: retired Cognitive needs: Yes (cane) Hearing needs: No Vision needs: Yes (Pt wear glasses. ) Review of Systems Const All systems reviewed & are unremarkable except as noted in HPI and below Physical Exam Vital Signs: Last Vital Signs Pulse 77 10/11/23 10:35 BP 118/70 10/11/23 10:35 Pulse Ox 96 10/11/23 10:35 Oxygen Delivery Method Room Air 10/11/23 10:35 BMI result Body Mass Index 30.3 General: Appears afebrile. Alert and oriented. Mood and affect appropriate. Follows and participates in conversation appropriately. Respiratory effort is unlabored. No cough. Sitting comfortably in the wheelchair. Avoids standing on LLE due to increase in pain. Resp Effort & Inspection: normal respiratory effort, able to speak in complete sentences, no cough, no respiratory distress and No symmetric chest movement Extrem Other: Photo provided by family via iPhone 10/11/23 Left lower extremity: lower leg (Dressing dry and intact.) Psych Appearance: grossly normal and well kempt Mental Status: mental status grossly normal Speech and movement: Normal speech and movement present and Clear speech present Affect: normal affect and Sad affect present Attitude: cooperative Thought process: Normal thought process present Thought content: Normal thought content present, suicidality (none), no hallucinations and Depressive thoughts present Insight: Good insight present (Psych) Assessment & Plan Assessment & Plan (1) Pyoderma gangrenosum: Code(s): L88 - Pyoderma gangrenosum (2) Peripheral neuropathy: Code(s): G62.9 - Polyneuropathy, unspecified (3) Chronic pain of left lower extremity: Code(s): M79.605 - Pain in left leg; G89.29 - Other chronic pain (4) Rheumatoid arthritis: Code(s): M06.9 - Rheumatoid arthritis, unspecified Qualifiers: Rheumatoid arthritis location: multiple sites Rheumatoid factor presence: without rheumatoid factor Qualified Code(s): M06.09 - Rheumatoid arthritis without rheumatoid factor, multiple sites (5) Chronic, continuous use of opioids: Code(s): F11.90 - Opioid use, unspecified, uncomplicated (6) Non-healing wound of left lower extremity: Code(s): S81.802A - Unspecified open wound, left lower leg, initial encounter Plan Patient has shown accountability for his medication regimen and the pill count was accurate. There is no evidence of misuse, abuse or diversion at this time. [employer] reviewed. Patient will continue to use hydromorphone for wound care/dressing changes and moderate-severe pain as needed. Script sent for hydromorphone 4 mg # 30 tabs, continue to split medication to obtain 2 mg dose BID-TID prn with advanced date of 10/27/23. Patient will decrease gabapentin 800 mg TID to 800 mg at bedtime and 400 mg in am and afternoon (by splitting one 800 mg tablet in half). Will increase duloxetine 30 mg daily to 20 mg BID. Patient and family are aware to continue to monitor for any side effects, reviewed precautions too. All questions were answered and the patient is in agreement with the plan. Follow up in 4 weeks for a pill count or sooner if needed. Medications: Changed 2 From duloxetine 30 mg PO DAILY 30 days 30 caps 1RF pain G62.9 - Polyneuropathy, unspecified, G89.29 - Other chronic pain, L88 - Pyoderma gangrenosum, M79.605 - Pain in left leg, R05.9 - Cough, unspecified To duloxetine 20 mg PO BID 30 days 60 caps 0RF pain G62.9 - Polyneuropathy, unspecified, G89.29 - Other chronic pain, L88 - Pyoderma gangrenosum, M79.605 - Pain in left leg, R05.9 - Cough, unspecified Refilled 2 hydromorphone Take half a tab twice-three times per day as needed Partial Fill upon patient request. 4 mg PO BID-TID 30 days PRN 30 tabs 0RF pain (scale score 7-10) G62.9 - Polyneuropathy, unspecified, G89.29 - Other chronic pain, M79.605 - Pain in left leg Coding Level of Care Code Est Pt Level 4 (05298) Diagnoses Pyoderma gangrenosum L88 Peripheral neuropathy G62.9 Chronic pain of left lower extremity M79.605; G89.29 Rheumatoid arthritis of multiple sites with negative rheumatoid factor M06.09 Rheumatoid arthritis location: multiple sites Rheumatoid factor presence: without rheumatoid factor Chronic, continuous use of opioids F11.90 Non-healing wound of left lower extremity S81.802A
[2023-10-11 10:35] VITALS: BP 118/70; PULSE 77; O2SAT 96; BMI 30.3
== END 2023-10-11 10:54 | disposition home or self-care (01) ==
PROVIDERS: PCP Internal Medicine; Visit Provider Nurse Practitioner Family
DX: L88 Pyoderma gangrenosum (principal); G62.9 Polyneuropathy, unspecified; M79.605 Pain in left leg; Z79.891 Long term (current) use of opiate analgesic; G89.29 Other chronic pain; M06.09 Rheumatoid arthritis without rheumatoid factor, multiple sites; S81.802A Unspecified open wound, left lower leg, initial encounter
CPT/HCPCS: 99214

== ENCOUNTER → 2023-10-11 10:24 | Outpatient (BNVA) | payer MEDICARE, SELFPAY | PROVIDERS: PCP Internal Medicine; Visit Provider Nurse Practitioner Family | DX: I10 Essential (primary) hypertension (principal); I26.09 Other pulmonary embolism with acute cor pulmonale; I46.9 Cardiac arrest, cause unspecified; I47.10 Supraventricular tachycardia, unspecified; L88 Pyoderma gangrenosum; G62.9 Polyneuropathy, unspecified; M79.605 Pain in left leg; G89.29 Other chronic pain; M06.09 Rheumatoid arthritis without rheumatoid factor, multiple sites; S81.802A Unspecified open wound, left lower leg, initial encounter; X58.XXXA Exposure to other specified factors, initial encounter; Y93.9 Activity, unspecified; Y92.9 Unspecified place or not applicable; Y99.9 Unspecified external cause status; Z79.899 Other long term (current) drug therapy; Z79.891 Long term (current) use of opiate analgesic; Z51.81 Encounter for therapeutic drug level monitoring | CPT/HCPCS: 93005; 99212 ==

== ENCOUNTER 2023-10-11 13:08 | Outpatient (AMB) | payer MEDICARE, SELFPAY ==
--- NOTE | 2023-10-11 13:09 | A.OFFVIS_ITS ---
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 Present Allergies heparin (porcine) Allergy (Severe, Verified 10/11/23 13:12) HIT Medication List - Last Reconciled 10/11/23 by NOEMI Mendoza acetaminophen (Tylenol Extra Strength) 1,000 mg PO Q6H PRN albuterol sulfate 90 mcg/actuation (ProAir HFA) 2 puffs inhalation Q6H PRN benfotiamine 250 mg PO BID duloxetine 20 mg PO BID 30 days fluticasone propionate 50 mcg/actuation (Flonase Allergy Relief) 2 sprays intranasal DAILY gabapentin 800 mg PO TID hydromorphone 4 mg PO BID-TID PRN 30 days infliximab-abda (Renflexis) mg IV metoprolol tartrate 25 mg PO BID miscellaneous medical supply As directed naloxone 4 mg/actuation (Narcan) 4 mg intranasal Q2M PRN prednisone 7.5 mg PO DAILY umeclidinium-vilanterol 62.5-25 mcg/actuation (Anoro Ellipta) 1 inh inhalation DAILY PRN HPI [facility] /uncontrolled bp HPI Details Sarath is a 77-year-old male with past medical history of hypertension, pulmonary embolism with cardiac arrest 01/2022 with episodes of wide complex rhythm at that time which was thought to be SVT with aberrancy who now presents for cardiology follow-up. He has not been seen in our office before. Today he reports that he has been doing generally well since his hospital admission in 2021. Has not had any recurrent issues with pulmonary embolism, DVT or any clotting. He has not on blood thinners at this time. He denies any chest discomfort at rest or with activity. No heart palpitations, lightheadedness, presyncope, syncope, falls. No concerning shortness of breath, PND, orthopnea or edema. He has issues with each lower leg bilaterally. He has a chronic wound on his left lateral ankle and goes to the wound clinic weekly. For this reason he is not able to walk on his feet and uses a wheelchair. He has had chronic wounds on his right lower extremity as well and shows me extensive scarring. is present she brings a list of his blood pressures which are checked at different times throughout the day. His blood pressure readings are mostly elevated ranging from 130 up to 160 systolic. He is taking his metoprolol 25 mg b.i.d.. He tells me he does want any new medications added. [facility] Medical History MDD (major depressive disorder), single episode Pressure injury of buttock, stage 1 Deep vein thrombosis 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 Acute pulmonary embolism with acute cor pulmonale Acute pulmonary embolism Cardiac arrest CKD (chronic kidney disease) stage 3, GFR 30-59 ml/min Sjogren's disease Leg pain, bilateral Elevated serum creatinine COPD (chronic obstructive pulmonary disease) HTN (hypertension) Rheumatoid arthritis Chronic ulcer of leg Surgical History History of ankle surgery History of hernia repair History of left knee replacement Family History Sister Breast cancer Father Aneurysm Mother Angina at rest Other No family history of coronary artery disease Social History Household Members: Spouse Housing: House Do you presently have visiting nurse or other home services: No Alcohol intake: current Alcohol intake frequency: holidays/special occasions only Comment: restraints Patient Tobacco Use Status: Former Tobacco user Tobacco use type: Cigarette Cigarette Packs Per Day: 1 Years Smoked: quit + years e-Cigarette/Vaping Use: Never Used Advance Directives Date on File: 12/23/21 service: Yes Current occupational status: retired Cognitive needs: Yes (cane) Hearing needs: No Vision needs: Yes (Pt wear glasses. ) Review of Systems Const All systems reviewed & are unremarkable except as noted in HPI and below ENT Denies dizziness Card Denies chest pain, Denies chest pain at rest, Denies chest pain with activity, Denies rapid heart rate, Denies pedal edema, Denies edema, Denies leg edema, Denies lightheadedness, Denies palpitations, Denies dyspnea, Denies dyspnea on exertion and Denies orthopnea Resp Denies cough, Denies dyspnea and Denies dyspnea on exertion GI Denies hematochezia and Denies change in stool character Musc Denies abnormal gait, Denies limited range of motion, Denies muscle cramps, Denies muscle weakness, Denies numbness, Denies radiating pain into limb, Denies stiffness and Denies tingling Neuro Denies abnormal gait, Denies dizziness, Denies numbness and Denies tingling Endo Denies palpitations Physical Exam Vital Signs: Last Vital Signs BP 120/80 10/11/23 13:10 BMI result Body Mass Index 30.3 Const General: cooperative, healthy appearing, comfortable and no acute distress Orientation/consciousness: patient oriented x3 Neck Neck: Yes normal visual inspection and Yes no JVD Resp Effort & Inspection: normal respiratory effort Auscultation: clear to auscultation bilaterally, no crackles, no rales, no rhonchi and no wheezes Cardio Jugular venous distension: no JVD Rate: regular rate Rhythm: regular rhythm Heart sounds: S1 normal heart sound present, S2 normal heart sound present, no murmurs and no rubs Neuro General: patient oriented x3 Extrem General: Yes normal to inspection, No no pedal edema and No calf tenderness Psych Appearance: grossly normal Mental Status: mental status grossly normal Speech and movement: Normal speech and movement present Office Procedures EKG Details: Today, read by me, normal sinus rhythm, nonspecific T wave abn, rate 80, QTc 41 0ms [id number], Complete Assessment & Plan Assessment & Plan (1) HTN (hypertension): Code(s): I10 - Essential (primary) hypertension Plan: History of hypertension. Has been on metoprolol tartrate 25 mg b.i.d.. Home blood pressures mostly elevated. states they have had his home cuff calibrated with an office reading and they are equal. Blood pressure elevated when checked by me today. He is requesting no new medications be added. Will increase metoprolol tartrate up to 37.5 mg in the a.m. 25 mg in the p.m.. Instructed to continue monitoring blood pressure and we will plan to call him in 2 weeks to check readings. Plan to further titrate metoprolol if needed. Mary D blood pressure goal with systolic less than 130. (2) Acute pulmonary embolism with acute cor pulmonale: Code(s): I26.09 - Other pulmonary embolism with acute cor pulmonale Plan: History of an acute pulmonary embolism with cor pulmonale, cardiac arrest 01/2022. He cardiology consult at that time however has not followed up in our office until today. He tells me he has had no recurrent issues with blood clots. His med list does not include a blood thinner at this time. No signs of heart failure on exam. An EKG was done today showing normal sinus rhythm, nonspecific T-wave abnormality, rate 80. Last known echo at time of his PE showed EF greater than 50%, moderate increase in the RV size and no valve abnormalities. Will update echocardiogram to re-evaluate heart function and chamber size. (3) Cardiac arrest: Code(s): I46.9 - Cardiac arrest, cause unspecified Plan: At time of acute PE (4) SVT (supraventricular tachycardia): Code(s): I47.10 - Supraventricular tachycardia, unspecified Plan: Following PE while still hospitalized he was having runs of wide complex tachycardia which was evaluated by Dr. Carr and felt to be SVT with aberrancy. He was put on metoprolol and remains on it for heart rate and blood pressure control. No reports of heart palpitations. Plan Time spent on chart review, documentation, interview and assessment Orders: Orders CA echo transthoracic complete Today I10 - Essential (primary) hypertension, I47.10 - Supraventricular tachycardia, unspecified Coding Level of Care Code Est Pt Level 4 (47197) Diagnoses HTN (hypertension) I10 Acute pulmonary embolism with acute cor pulmonale I26.09 Cardiac arrest I46.9 SVT (supraventricular tachycardia) I47.10 CPT Codes EKG - CPT: [id number], Complete ([id number]) Time Spent (min) 28
[2023-10-11 13:10] VITALS: BP 142/98; PULSE 80; BMI 30.3
== END 2023-10-11 13:53 | disposition home or self-care (01) ==
PROVIDERS: PCP Internal Medicine; Visit Provider Nurse Practitioner Family
DX: I10 Essential (primary) hypertension (principal); I26.09 Other pulmonary embolism with acute cor pulmonale; I46.9 Cardiac arrest, cause unspecified; I47.10 Supraventricular tachycardia, unspecified
CPT/HCPCS: 93010; 99214

== ENCOUNTER → 2023-11-05 12:59 | Outpatient (REF) | payer MEDICARE, SELFPAY ==
--- NOTE | 2023-11-05 13:02 | CA_ITS ---
Transthoracic Echocardiogram Patient (Last, First, Middle): Sarath Gipson, Gender: Male Date of : 1945 Age: 77 Procedure Date: 11/05/2023 Procedure Type: Transthoracic Echocardiogram Location: OP Height: 167.64 cm Weight: 86.18 kg BSA: 1.96 m2 Heart Rate: bpm BP: 134 / 80 mmHg Operating Engineer Apprentice: NUPUR Referring MD: Majo Barrera BIOMETRIC TECHNICIAN-[employer] Detailer: Bonifacio Finney MD Symptoms: I10 - Essential (primary) hypertension Study Quality: Technically Difficult ECG Rhythm: Sinus Conclusions: - 1. Normal LV ejection fraction 55-60% with mild LVH with grade 1 diastolic dysfunction 2. Mildly dilated right ventricle 3. Cardiac valvular Dopplers within normal limits 4. Mildly dilated ascending aorta at 4.1 cm 5. No gross pericardial effusion Findings Left Ventricle Normal left ventricular size and systolic function. There is mildly increased left ventricular wall thickness. The visually estimated ejection fraction is between 55-60%. Regional wall motion abnormalities can not be excluded due to suboptimal endocardial definition. Spectral Doppler is indicative of an impaired relaxation filling pattern. E/E prime ratio is <8, consistent with normal filling pressures. Evidence suggests grade I (mild) diastolic dysfunction. Right Ventricle Mildly increased right ventricular cavity size. There is normal right ventricular systolic function. Atria The left atrium is normal in size. Interatrial shunt cannot be excluded. The right atrium was not well visualized. Aortic Valve The aortic valve was not well visualized. There is no aortic valve stenosis. There is no aortic valve regurgitation. Mitral Valve Likely normal mitral valve structure and function. There is trace mitral valve regurgitation. There is no mitral valve stenosis. Pulmonic Valve The pulmonic valve was not well visualized. Tricuspid Valve Likely normal tricuspid valve structure and function. There is trace tricuspid valve regurgitation. The right ventricular systolic pressure is normal. The right ventricular systolic pressure is 23 mmHg. Normal right atrial pressure. There is no evidence of pulmonary hypertension. Great Vessels The aorta was not well visualized. The pulmonary artery was not well visualized. There is mild dilatation of the ascending aorta measuring 4.10 cm. Venous The inferior vena cava is normal in size and collapses greater than 50% with inspiration. Pericardium/Pleural There is no evidence of pericardial effusion. Prior Study Comparison No significant change compared to prior study dated: 01/09/2022. Recommendations, Care & Conclusions Recommend contrast in the future to improve endocardial definition. Measurements 2D Linear Measurements IVSd: 1.20 0.6-0.9/0.6-1.0 cm LVIDd: 3.22 3.9-5.3/4.2-5.9 cm LVIDd Index: 1.64 2.4-3.2/2.2-3.1 cm/m2 LVIDs: 2.04 2.0-3.6 cm LVPWd: 1.15 0.7-1.1 cm Ao Root: 3.30 2.1-3.5 cm LA Diam: 4.20 2.7-3.8/3.0-4.0 cm LAIDs Index: 2.14 1.5-2.3 cm/m2 LV Mass: 217.97 67-162/88-224 g LV Mass Index: 111.21 43-95/49-115 g/m2 LVOT Diam: 2.50 3.0+(-)1.3 cm 2D Systolic Function EF 4C: 62.10 >55% EF 2C: 52.80 >55% EF BiP: 58.60 >55% Mitral Valve MV Pk E: 0.35 MV PK A: 0.69 MV Decel Time: 246.00 E/A: 0.50 E'Lateral: 5.00 E'Medial: 5.11 E/E' Med: 6.80 E/E' Lat: 6.90 PHT: 72.00 MVA PHT: 3.06 Decel Kenedy: 1.41 Aortic Valve AoV Pk Giovani: 0.88 AoV Mn Giovani: 0.60 AoV VTI: 0.21 AoV Pk Grad: 3.00 Aov Mn Grad: 2.00 SANJAY Cont.VTI: 4.06 LVOT LVOT Pk Giovani: 0.67 LVOT Mn Giovani: 0.42 LVOT VTI: 0.17 LVOT Pk Grad: 2.00 LVOT Mn Grad: 1.00 LVOT Diam: 2.50 LVOT Area: 4.91 Diastolic Function MV Pk E: 0.35 MV Pk A: 0.69 E/A: 0.50 E'Medial: 5.11 E/E' Med: 6.80 E' Laterial: 5.00 E/E' Lat: 6.90 Right Ventricle TAPSE (mm): 19.00 TVS' Giovani: 12.00 Tricuspid Valve TR Pk Giovani: 2.67 TR Pk Grad: 29.00 RA Press: 3.00 RVSP: 23.00 Great Vessels Aorta Ao Root-2D: 3.30 2.0-3.7 cm Ao Asc: 4.10 2.1-3.4 cm Pulmonary Valve PV Pk Giovani: 0.73 Peak PV Grad: 2.00 Updated in Other Vendor System with Status of Final Bonifacio Finney MD electronically signed on 11/06/2023 5:52:34 AM with status of Final
== END ==
LOC: HO.CARD 12:59
PROVIDERS: PCP Internal Medicine; Visit Provider Nurse Practitioner Family
DX: I10 Essential (primary) hypertension (principal); I47.10 Supraventricular tachycardia, unspecified
CPT/HCPCS: 93306

== ENCOUNTER → 2023-11-05 13:02 | Outpatient (BNV) | payer MEDICARE, SELFPAY | PROVIDERS: PCP Internal Medicine; Visit Provider Internal Medicine Cardiovascular Disease | DX: I10 Essential (primary) hypertension (principal) | CPT/HCPCS: 93306 ==

== ENCOUNTER 2023-11-08 10:09 | Outpatient (AMB) | payer MEDICARE, SELFPAY ==
--- NOTE | 2023-11-08 10:26 | MHC.OFFVIS ---
Intake Visit Reasons: PILL COUNT Intake Note: Sarath comes in today for a pill count to hydromorphone, patient should have 0 tablets and presents with 9 tablets which he last took Wednesday11/06/23 at 7pm. Pain today 02/18 Project Development Leader Required: No Accompanied by: Spouse Allergies heparin (porcine) Allergy (Severe, Verified 11/08/23 10:27) HIT Medication List - Last Reconciled 11/08/23 by MARJORIE Pierce acetaminophen (Tylenol Extra Strength) 1,000 mg PO Q6H PRN adalimumab (Humira Pen) 40 mg subcut Q2W albuterol sulfate 90 mcg/actuation (ProAir HFA) 2 puffs inhalation Q6H PRN benfotiamine 250 mg PO BID duloxetine 20 mg PO BID 30 days fluticasone propionate 50 mcg/actuation (Flonase Allergy Relief) 2 sprays intranasal DAILY gabapentin 800 mg PO TID hydromorphone 4 mg PO BID-TID PRN 30 days metoprolol tartrate 50 mg PO BID miscellaneous medical supply As directed naloxone 4 mg/actuation (Narcan) 4 mg intranasal Q2M PRN prednisone 7.5 mg PO DAILY umeclidinium-vilanterol 62.5-25 mcg/actuation (Anoro Ellipta) 1 inh inhalation DAILY PRN HPI Comments Details: Patient presents today for a pill count. Patient is supposed to have #0 pills, in his possession has #9 pills. Patient takes hydromorphone 2 mg BID prn for wound care and dressing changes and as needed for moderate-severe pain. Patient continues to take duloxetine which has been beneficial for his pain and sleep. He is tapering off prednisone by Wednesday and has recently started on Humira biweekly injections. Patient reports home infusion treatments were discontinued due to adverse reaction. Family reports original wound has new skin and mild improvement and that patient now has 2 small additional open wounds above his original wound. Patient continues to regularly attend [facility] in [place]. Denies any fever, shortness of breaths, abdominal pain, constipation, nausea, sedation, dizziness, or urinary retention. 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 Acute pulmonary embolism with acute cor pulmonale Acute pulmonary embolism Cardiac arrest CKD (chronic kidney disease) stage 3, GFR 30-59 ml/min Sjogren's disease Leg pain, bilateral Elevated serum creatinine COPD (chronic obstructive pulmonary disease) HTN (hypertension) Rheumatoid arthritis Chronic ulcer of leg Surgical History History of ankle surgery History of hernia repair History of left knee replacement Family History Sister Breast cancer Father Aneurysm Mother Angina at rest Other No family history of coronary artery disease Social History Household Members: Spouse Housing: House Do you presently have visiting nurse or other home services: No Alcohol intake: current Alcohol intake frequency: holidays/special occasions only Comment: restraints Patient Tobacco Use Status: Former Tobacco user Tobacco use type: Cigarette Cigarette Packs Per Day: 1 Years Smoked: quit + years e-Cigarette/Vaping Use: Never Used Advance Directives Date on File: 12/23/21 service: Yes Current occupational status: retired Cognitive needs: Yes (cane) Hearing needs: No Vision needs: Yes (Pt wear glasses. ) Review of Systems Const All systems reviewed & are unremarkable except as noted in HPI and below Physical Exam General: Appears afebrile. Alert and oriented. Mood and affect appropriate. Follows and participates in conversation appropriately. Respiratory effort is unlabored. No cough. Sitting comfortably in the wheelchair. Avoids standing on LLE due to increase in pain. Resp Effort & Inspection: normal respiratory effort, able to speak in complete sentences, no cough, no respiratory distress and No symmetric chest movement Extrem Other: Photo provided by family via iPhone 11/04/23 Left lower extremity: lower leg (Dressing dry and intact.) Psych Appearance: grossly normal Mental Status: mental status grossly normal Speech and movement: Normal speech and movement present and Clear speech present Affect: normal affect Attitude: cooperative Thought process: Normal thought process present Thought content: Normal thought content present, suicidality (none), no hallucinations and Depressive thoughts present Insight: Good insight present (Psych) Judgement: Good judgement present (Psych) Results Reviewed Results Reviewed: Assessment & Plan Assessment & Plan (1) Peripheral neuropathy: Code(s): G62.9 - Polyneuropathy, unspecified Category: Medical (2) Chronic pain of left lower extremity: Code(s): M79.605 - Pain in left leg; G89.29 - Other chronic pain Category: Medical (3) Pyoderma gangrenosum: Code(s): L88 - Pyoderma gangrenosum Category: Medical (4) Chronic, continuous use of opioids: Code(s): F11.90 - Opioid use, unspecified, uncomplicated Category: Medical (5) Non-healing wound of left lower extremity: Code(s): S81.802A - Unspecified open wound, left lower leg, initial encounter Category: Medical Plan Patient has shown accountability for his medication regimen and the pill count was accurate. There is no evidence of misuse, abuse or diversion at this time. MassPat reviewed. Patient will continue to use hydromorphone for wound care/dressing changes and moderate-severe pain as needed. I will hold off on refilling him with hydromorphone at this time as he has pending script for this month which was not refilled yet. Refill provided for duloxetine at patient's request. Continue gabapentin. [facility] as [facility]. All questions were answered and the patient is in agreement with the plan. Follow up in 4-5 weeks for a pill count or sooner if needed. Medications: Refilled duloxetine 20 mg PO BID 30 days 60 caps 6RF pain G62.9 - Polyneuropathy, unspecified, G89.29 - Other chronic pain, L88 - Pyoderma gangrenosum, M79.605 - Pain in left leg, R05.9 - Cough, unspecified Coding Level of Care Code Est Pt Level 4 (10161) Diagnoses Peripheral neuropathy G62.9 Chronic pain of left lower extremity M79.605; G89.29 Pyoderma gangrenosum L88 Chronic, continuous use of opioids F11.90 Non-healing wound of left lower extremity S81.802A
== END 2023-11-08 10:55 | disposition home or self-care (01) ==
PROVIDERS: PCP Internal Medicine; Visit Provider Nurse Practitioner Family
DX: G62.9 Polyneuropathy, unspecified (principal); M79.605 Pain in left leg; G89.29 Other chronic pain; Z79.891 Long term (current) use of opiate analgesic; L88 Pyoderma gangrenosum; S81.802A Unspecified open wound, left lower leg, initial encounter
CPT/HCPCS: 99214

== ENCOUNTER → 2023-11-08 10:09 | Outpatient (BNVA) | payer MEDICARE, SELFPAY | PROVIDERS: PCP Internal Medicine; Visit Provider Nurse Practitioner Family | DX: G62.9 Polyneuropathy, unspecified (principal); G89.29 Other chronic pain; L88 Pyoderma gangrenosum; F11.90 Opioid use, unspecified, uncomplicated; R05.9 Cough, unspecified; M79.605 Pain in left leg; Z51.81 Encounter for therapeutic drug level monitoring | CPT/HCPCS: 99212 ==

== ENCOUNTER 2023-11-19 10:25 | Outpatient (REF) | payer MEDICARE, SELFPAY | END 2023-11-19 10:26 | disposition home or self-care (01) | LOC: HO.RESP 10:25 | PROVIDERS: PCP Internal Medicine; Visit Provider Nurse Practitioner Family | DX: Z13.89 Encounter for screening for other disorder (principal) ==

== ENCOUNTER 2023-11-23 09:33 | Outpatient (REF) | payer MEDICARE, SELFPAY ==
--- NOTE | ~2023-11-23 | CT_ITS ---
EXAMINATION: CT CHEST WITHOUT CONTRAST CLINICAL INFORMATION: Nicotine dependence. COMPARISON: CTA chest dated 01/09/2022. TECHNIQUE: Multidetector volumetric CT imaging of the chest was done. Axial MIP volume rendering provided. Sagittal and coronal reformatted images were obtained. This CT examination was performed using dose optimization techniques as appropriate, variously including the following: *Automated exposure control *Adjustment of mA and/or kV according to patient size (this includes techniques or standardized protocols for targeted exams where dose is matched to indication/reason for exam; i.e. extremities or head) *Use of iterative reconstruction technique DLP: 174 mGy-cm FINDINGS: GRAB JACK MAN: There is bibasilar plate-like atelectasis. There is mild elevation of the right hemidiaphragm. LUNGS: There are diffuse centrilobular predominant emphysematous changes. There is bibasilar dependent atelectasis. Within the bilateral lower lung ryan, there are foci of scar/subsegmental atelectasis, without focal airway obstruction. There is no nodule, mass, infiltrate or groundglass opacity. No generalized small airway thickening is seen. The central airways appear patent. MEDIASTINUM: The thyroid is unremarkable. There is no thoracic aortic aneurysm. There are mild atherosclerotic calcifications of the great vessel origins and thoracic aorta. No mediastinal or hilar lymphadenopathy is seen. CORONARY ARTERY CALCIFICATION: None visualized on this study. PLEURA: There is no pleural effusion. No pleural mass or thickening. AXILLA: No lymphadenopathy. UPPER ABDOMEN: There is diffuse hepatic steatosis. The included portions of the adrenal glands are unremarkable. OSSEOUS STRUCTURES: There is multi-level thoracic and upper lumbar spondylosis. No acute or aggressive osseous finding is noted. CT/CT chest wo IV con IMPRESSION: There are diffuse centrilobular predominant emphysematous changes. There are scattered foci of lower lung field scar/subsegmental atelectasis, without associated focal airway obstruction. No nodule, mass, infiltrate or groundglass opacity is seen. There is no thoracic lymphadenopathy or pleural effusion. No aggressive osseous lesion is seen. Fleischner guidelines were followed.
== END 2023-11-23 09:34 | disposition home or self-care (01) ==
LOC: HO.CT 09:33
PROVIDERS: PCP Internal Medicine; Visit Provider Nurse Practitioner Family
DX: R05.9 Cough, unspecified (principal); J44.9 Chronic obstructive pulmonary disease, unspecified; Z87.891 Personal history of nicotine dependence
CPT/HCPCS: 71250

== ENCOUNTER 2023-12-01 13:39 | Outpatient (AMB) | payer MEDICARE, SELFPAY ==
--- NOTE | 2023-12-01 14:05 | MHC.OFFVIS ---
Vital Signs 12/01/23 14:12 Height 5 ft 6 in Weight 190 lb 14.725 oz BMI 30.8 BP 112/70 Blood Pressure Location Rt brachial Position Sitting Pulse 84 Pulse Source Pulse Oximeter Pulse Oximetry (%) 92 Oxygen Delivery Method Room Air Intake Visit Reasons: Pyoderma gangrenosum Intake Note: Patient last seen 09/07/23 presents today for follow up. Reports recent flare for the past 2-3 days. Rest Room Attendant Required: No Accompanied by: Spouse Allergies heparin (porcine) Allergy (Severe, Verified 12/01/23 14:12) HIT Medication List - Last Reconciled 12/01/23 by Kofi Horne MD acetaminophen (Tylenol Extra Strength) 1,000 mg PO Q6H PRN adalimumab (Humira Pen) 40 mg subcut Q2W albuterol sulfate 90 mcg/actuation (ProAir HFA) 2 puffs inhalation Q6H PRN benfotiamine 250 mg PO BID duloxetine 20 mg PO BID 30 days fluticasone propionate 50 mcg/actuation (Flonase Allergy Relief) 2 sprays intranasal DAILY gabapentin 800 mg PO TID metoprolol tartrate 50 mg PO BID miscellaneous medical supply As directed morphine 15 mg PO Q8H PRN 30 days naloxone 4 mg/actuation (Narcan) 4 mg intranasal Q2M PRN umeclidinium-vilanterol 62.5-25 mcg/actuation (Anoro Ellipta) 1 inh inhalation DAILY PRN HPI Comments Details: 77-year-old male with seronegative RA/Sjogren's (dry mouth +++Ro) and pyoderma gangrenosum returns for follow-up. Patient received 3 red flexes infusions and discontinued due to a reaction with multiple joint pain. Switched to Humira. Per patient received 80 mg followed by 40 mg every other week for 2 doses. Patient feels about the same, the wound still hurts and gets drainage whenever he does any form of activity. However per the wound does look smaller. His RA is generally well controlled. Initial history: This is a 76-year-old male with a past medical history of rheumatoid arthritis, Sjogren's, pyoderma gangrenosum, hypertension, bilateral PE who presents for evaluation of left lower extremity open wounds. Patient is originally from [place], moved to [place] in June of 2021. Patient stated that he was initially diagnosed with Sjogren's at the [facility] back in the due to dry eyes. He was eventually diagnosed with rheumatoid arthritis and he had been on Enbrel since the for many years. Enbrel was switched to reflect this for about 1 year but it was not effective. He was switched to Actemra in June of 2021 to bring down his inflammatory markers down. He received Actemra infusions for 2-3 months then moved to [place]. In [place] patient initially could not find a guide plant, he was eventually evaluated by Dari Good. Starting June of 2021 patient started having open left lower extremity wounds that were quite painful. He was admitted at the hospital in summer for evaluation of those wounds. 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 He was started on argatroban then switched to warfarin on discharge. Patient was evaluated by production editor in [place] Dr. Godwin who started patient on Rinvoq 3-4 months ago. Tear they state that the smaller lower extremity wounds have closed and the large wound is not getting worse and might be getting somewhat better. With regards to his joint pain patient states he is about the same, he has stiffness of his hands worse on the right hand. He has bilateral hand contractures from many years of RA. [facility] Medical History MDD (major depressive disorder), single episode Pressure injury of buttock, stage 1 Deep vein thrombosis 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 Acute pulmonary embolism with acute cor pulmonale Acute pulmonary embolism Cardiac arrest CKD (chronic kidney disease) stage 3, GFR 30-59 ml/min Sjogren's disease Leg pain, bilateral Elevated serum creatinine COPD (chronic obstructive pulmonary disease) HTN (hypertension) Rheumatoid arthritis Chronic ulcer of leg Surgical History History of ankle surgery History of hernia repair History of left knee replacement Family History Sister Breast cancer Father Aneurysm Mother Angina at rest Other No family history of coronary artery disease Social History Household Members: Spouse Housing: House Do you presently have visiting nurse or other home services: No Alcohol intake: current Alcohol intake frequency: holidays/special occasions only Comment: restraints Patient Tobacco Use Status: Former Tobacco user Tobacco use type: Cigarette Cigarette Packs Per Day: 1 Years Smoked: quit + years e-Cigarette/Vaping Use: Never Used Advance Directives Date on File: 12/23/21 service: Yes Current occupational status: retired Cognitive needs: Yes (cane) Hearing needs: No Vision needs: Yes (Pt wear glasses. ) Review of Systems Skin/Breast Reports non-healing lesions, Reports skin pain, Reports skin ulcer and Reports wounds Physical Exam Vital Signs: Last Vital Signs Pulse 84 12/01/23 14:12 BP 112/70 12/01/23 14:12 Pulse Ox 92 12/01/23 14:12 Oxygen Delivery Method Room Air 12/01/23 14:12 BMI result Body Mass Index 30.8 Const General: cooperative, healthy appearing and comfortable Nutritional Appearance: overweight Limitations: wheelchair HEENT Head: Yes normocephalic and Yes atraumatic Resp Effort & Inspection: normal respiratory effort and able to speak in complete sentences Extrem Other: Right hand RA deformities with ulnar deviation and synovial thickening of his MCPs. 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 Normal range of motion of elbows and shoulders There is no active synovitis Normal nailfold capillaroscopy Results Reviewed Results Reviewed: Assessment & Plan Assessment & Plan (1) Pyoderma gangrenosum: Code(s): L88 - Pyoderma gangrenosum Category: Medical Plan: This is a 78-year-old male originally from [place], recently moved to [place] with past medical history of seronegative RA/Sjogren's (dry mouth +++Ro) diagnosed in the treated with Enbrel for at least 15 years years. Patient had right lower extremity wounds which were treated with Renflexis & prednisone with good results however he was having recurrent knee swelling. He was switched to Kevzara early 2021 with some improvement. Patient developed left lower extremity pyoderma gangrenosum. This started around June 2021. 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 He is currently on warfarin now switched to rivaroxaban by mult au matic operator. Patient was started on Rinvoq by his production editor Dr. Omar Cantor in [place], with little improvement, then dose was increased from 15 mg daily to 30 mg daily for a few months without significant improvement. A steroid tapering course was prescribed 6 months ago which provided temporary improvement Reviewed records from patient's previous guide plant when he had the left knee synovitis, synovial fluid showed CPPD crystals consistent with pseudogout. My belief is Renflexis and prednisone was working well for rheumatoid arthritis and pyoderma gangrenosum, when patient was switched to Kevzara the pyoderma gangrenosum recurred. Patient took 3 doses of Renflexis and it was discontinued due to a reaction with joint pain. He was recently started on Humira. He received 80 mg followed by 2 doses of 40 mg 2 weeks apart. I reviewed pictures of patient's wound on his 's cell phone. The wounds are shrinking. I agree with Humira. Can consider increasing the dose to 80 mg every other week or 40 mg weekly Steroids have been tapered off Continue to follow-up with production editor Follow-up in 4 months (2) Rheumatoid arthritis: Code(s): M06.9 - Rheumatoid arthritis, unspecified Category: Medical Qualifiers: Rheumatoid arthritis location: multiple sites Rheumatoid factor presence: without rheumatoid factor Qualified Code(s): M06.09 - Rheumatoid arthritis without rheumatoid factor, multiple sites Plan: Seronegative and deforming. Currently well controlled. Plan I spent 30 minutes reviewing patient's chart, evaluating patient, counseling patient & his and documenting in the chart Medications: Changed From metoprolol tartrate dose increase 50 mg PO BID 60 tabs 5RF To metoprolol tartrate 50mg QAM, 25mg QHS 50 mg PO BID Coding Level of Care Code Est Pt Level 4 (64259) Diagnoses Pyoderma gangrenosum L88 Rheumatoid arthritis of multiple sites with negative rheumatoid factor M06.09 Rheumatoid arthritis location: multiple sites Rheumatoid factor presence: without rheumatoid factor
[2023-12-01 14:12] VITALS: BP 112/70; PULSE 84; O2SAT 92; BMI 30.8
== END 2023-12-01 14:34 | disposition home or self-care (01) ==
LOC: HO.RHE 14:02
PROVIDERS: PCP Internal Medicine; Visit Provider Student in an Organized Health Care Education/Training Program
DX: L88 Pyoderma gangrenosum (principal); M06.09 Rheumatoid arthritis without rheumatoid factor, multiple sites
CPT/HCPCS: 99214

== ENCOUNTER → 2023-12-01 14:02 | Outpatient (BNVA) | payer MEDICARE, SELFPAY | PROVIDERS: PCP Internal Medicine; Visit Provider Student in an Organized Health Care Education/Training Program | DX: L88 Pyoderma gangrenosum (principal); M06.09 Rheumatoid arthritis without rheumatoid factor, multiple sites; M35.00 Sjogren syndrome, unspecified | CPT/HCPCS: 99212 ==

== ENCOUNTER 2023-12-13 10:20 | Outpatient (AMB) | payer MEDICARE, SELFPAY ==
--- NOTE | 2023-12-13 10:25 | MHC.OFFVIS ---
Vital Signs 12/13/23 10:33 Height 5 ft 6 in Weight 190 lb BMI 30.7 BP 120/81 Blood Pressure Location Lt brachial Position Sitting Pulse 69 Pulse Source Pulse Oximeter Pulse Oximetry (%) 97 Oxygen Delivery Method Room Air Intake Visit Reasons: PILL COUNT Intake Note: Sarath comes in today for a pill count to morphine, patient should have 0 tablets and presents with 89 tablets which he last took 12/06/23. Pain today 910. Fire Investigator Required: No Accompanied by: Spouse Allergies heparin (porcine) Allergy (Severe, Verified 12/13/23 10:33) HIT HPI Comments Details: Patient presents today for a pill count. Patient is supposed to have #0 pills, in his possession has #89 pills. Last visit we switched opioid medication from hydromorphone 2 mg BID prn to morphine 15 mg TID prn due to national shortage of hydromorphine in 2 mg and 4 mg tabs. Patient reports he had left over of previous hydromorphine script and was completing it and took only one tablet of morphine 15 mg. Denies any side effects and cannot state if morphine has been helpful. Patient reports wound pain has been decreasing. He continues with wound dressing changes every other day and has been taking Tylenol, gabapentin and duloxetine regularly. His main concern remains instep foot and toes pain with standing or walking which he avoids and utilizes wheelchair. Patient states his left foot pain is unpredictable and comes on as burning, stabbing and shock like sensations throughout the day. Denies any fever, shortness of breaths, abdominal pain, constipation, nausea, sedation, dizziness, or urinary retention. 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 Acute pulmonary embolism with acute cor pulmonale Acute pulmonary embolism Cardiac arrest CKD (chronic kidney disease) stage 3, GFR 30-59 ml/min Sjogren's disease Leg pain, bilateral Elevated serum creatinine COPD (chronic obstructive pulmonary disease) HTN (hypertension) Rheumatoid arthritis Chronic ulcer of leg Surgical History History of ankle surgery History of hernia repair History of left knee replacement Family History Sister Breast cancer Father Aneurysm Mother Angina at rest Other No family history of coronary artery disease Social History Household Members: Spouse Housing: House Do you presently have visiting nurse or other home services: No Alcohol intake: current Alcohol intake frequency: holidays/special occasions only Comment: restraints Patient Tobacco Use Status: Former Tobacco user Tobacco use type: Cigarette Cigarette Packs Per Day: 1 Years Smoked: quit + years e-Cigarette/Vaping Use: Never Used Advance Directives Date on File: 12/23/21 service: Yes Current occupational status: retired Cognitive needs: Yes (cane) Hearing needs: No Vision needs: Yes (Pt wear glasses. ) Review of Systems Const All systems reviewed & are unremarkable except as noted in HPI and below Physical Exam Vital Signs: Last Vital Signs Pulse 69 12/13/23 10:33 BP 120/81 12/13/23 10:33 Pulse Ox 97 12/13/23 10:33 Oxygen Delivery Method Room Air 12/13/23 10:33 BMI result Body Mass Index 30.7 General: Appears afebrile. Alert and oriented. Mood and affect appropriate. Follows and participates in conversation appropriately. Respiratory effort is unlabored. No cough. Sitting comfortably in the wheelchair. Difficulty standing on LLE due to increase in pain. Resp Effort & Inspection: normal respiratory effort, able to speak in complete sentences, no cough, no respiratory distress and No symmetric chest movement Extrem Left lower extremity: lower leg (Dressing dry and intact.) Psych Appearance: grossly normal Mental Status: mental status grossly normal Speech and movement: Normal speech and movement present and Clear speech present Affect: normal affect Attitude: cooperative Thought process: Normal thought process present Thought content: Normal thought content present, suicidality (none), no hallucinations and Depressive thoughts present Insight: Good insight present (Psych) Judgement: Good judgement present (Psych) Results Reviewed Results Reviewed: Assessment & Plan Assessment & Plan (1) Peripheral neuropathy: Code(s): G62.9 - Polyneuropathy, unspecified Category: Medical (2) Chronic pain of left lower extremity: Code(s): M79.605 - Pain in left leg; G89.29 - Other chronic pain Category: Medical (3) Pyoderma gangrenosum: Code(s): L88 - Pyoderma gangrenosum Category: Medical (4) Chronic, continuous use of opioids: Code(s): F11.90 - Opioid use, unspecified, uncomplicated Category: Medical (5) Non-healing wound of left lower extremity: Code(s): S81.802A - Unspecified open wound, left lower leg, initial encounter Category: Medical Plan Patient has shown accountability for his medication regimen and the pill count was accurate. There is no evidence of misuse, abuse or diversion at this time. MassPat reviewed. Patient will continue to use morphine for wound care/dressing changes and moderate-severe pain as needed. I will hold off on refilling him with morphine at this time due to surplus. Patient reports better pain coverage with hydromorphone which is on hold due to national shortage. Continue duloxetine and gabapentin. [facility]. All questions were answered and the patient is in agreement with the plan. Follow up in 4 weeks for a pill count or sooner if needed. Coding Level of Care Code Est Pt Level 3 (37489) Diagnoses Peripheral neuropathy G62.9 Chronic pain of left lower extremity M79.605; G89.29 Pyoderma gangrenosum L88 Chronic, continuous use of opioids F11.90 Non-healing wound of left lower extremity S81.802A
[2023-12-13 10:33] VITALS: BP 120/81; PULSE 69; O2SAT 97; BMI 30.7
== END 2023-12-13 11:07 | disposition home or self-care (01) ==
PROVIDERS: PCP Internal Medicine; Visit Provider Nurse Practitioner Family
DX: G62.9 Polyneuropathy, unspecified (principal); G89.29 Other chronic pain; M79.605 Pain in left leg; Z79.891 Long term (current) use of opiate analgesic; L88 Pyoderma gangrenosum
CPT/HCPCS: 99213

== ENCOUNTER → 2023-12-13 10:20 | Outpatient (BNVA) | payer MEDICARE, SELFPAY | PROVIDERS: PCP Internal Medicine; Visit Provider Nurse Practitioner Family | DX: G62.9 Polyneuropathy, unspecified (principal); M79.605 Pain in left leg; G89.29 Other chronic pain; L88 Pyoderma gangrenosum; S81.802A Unspecified open wound, left lower leg, initial encounter; X58.XXXA Exposure to other specified factors, initial encounter; Y93.9 Activity, unspecified; Y92.9 Unspecified place or not applicable; Y99.9 Unspecified external cause status; Z79.891 Long term (current) use of opiate analgesic; Z51.81 Encounter for therapeutic drug level monitoring | CPT/HCPCS: 99212 ==

== ENCOUNTER 2024-01-10 10:53 | Outpatient (AMB) | payer MEDICARE, SELFPAY ==
[2024-01-10 11:08] VITALS: BP 132/86; PULSE 72; O2SAT 96; BMI 30.7
--- NOTE | 2024-01-10 11:08 | A.OFFVIS_ITS ---
Vital Signs 3 01/10/24 11:08 Height 5 ft 6 in Weight 190 lb BMI 30.7 BP 132/86 Blood Pressure Location Lt brachial Position Sitting Pulse 72 Pulse Source Pulse Oximeter Pulse Oximetry (%) 96 Oxygen Delivery Method Room Air Intake Visit Reasons: PILL COUNT Intake Note: Sarath comes in today for a pill count to morphine, patient should have 0 tablets and presents with 80 tablets which he last took last night 01/09/24. Pain today 8/10. Returned Item Clerk Required: No Accompanied by: Self / Same As Patient Allergies heparin (porcine) Allergy (Severe, Verified 01/10/24 11:08) HIT HPI Comments Details: Patient presents today for a pill count. Patient is supposed to have #0 pills, in his possession has #80 pills. Previously, we switched his original hydromorphone 2 mg b.i.d. p.r.n. to morphine 15 mg b.i.d.-t.i.d. p.r.n. due to national shortage of hydro morphine 2 mg and 4 mg tabs. Patient reports he only takes morphine for dressing change but hesitant to take 2nd dose on the day of dressings because of taking gabapentin t.i.d.. He takes gabapentin and opioid 2 hours apart. Patinet does he does not feel tired or drowsy with morphine as he used to be experience with hydromorphine. Patient will try to take 2nd dose of morphine after the dressing change for moderate to severe pain and take only half of the afternoon gabapentin dose. Patient reports 8/10 wound pain after dressing change this morning. His reports the wound has been increasing and they have upcoming follow up with Dermatology provider in [place] on 01/24/24. He continues taking Tylenol, gabapentin and duloxetine regularly. Patient reports he is able to sleep through the night with gabapentin and duloxetine. Denies any fever, shortness of breaths, abdominal pain, constipation, nausea, sedation, dizziness, or urinary retention. [facility] Medical History MDD (major depressive disorder), single episode Pressure injury of buttock, stage 1 Deep vein thrombosis 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 Acute pulmonary embolism with acute cor pulmonale Acute pulmonary embolism Cardiac arrest CKD (chronic kidney disease) stage 3, GFR 30-59 ml/min Sjogren's disease Leg pain, bilateral Elevated serum creatinine COPD (chronic obstructive pulmonary disease) HTN (hypertension) Rheumatoid arthritis Chronic ulcer of leg Surgical History History of ankle surgery History of hernia repair History of left knee replacement Family History Sister Breast cancer Father Aneurysm Mother Angina at rest Other No family history of coronary artery disease Social History Household Members: Spouse Housing: House Do you presently have visiting nurse or other home services: No Alcohol intake: current Alcohol intake frequency: holidays/special occasions only Comment: restraints Patient Tobacco Use Status: Former Tobacco user Tobacco use type: Cigarette Cigarette Packs Per Day: 1 Years Smoked: quit + years e-Cigarette/Vaping Use: Never Used Advance Directives Date on File: 12/23/21 service: Yes Current occupational status: retired Cognitive needs: Yes (cane) Hearing needs: No Vision needs: Yes (Pt wear glasses. ) Review of Systems Const All systems reviewed & are unremarkable except as noted in HPI and below Physical Exam Vital Signs: Last Vital Signs Pulse 72 01/10/24 11:08 BP 132/86 01/10/24 11:08 Pulse Ox 96 01/10/24 11:08 Oxygen Delivery Method Room Air 01/10/24 11:08 BMI result Body Mass Index 30.7 General: Appears afebrile. Alert and oriented. Mood and affect appropriate. Follows and participates in conversation appropriately. Respiratory effort is unlabored. No cough. Sitting comfortably in the wheelchair. Difficulty standing on LLE due to increase in pain. Resp Effort & Inspection: normal respiratory effort, able to speak in complete sentences, no cough, no respiratory distress and No symmetric chest movement Extrem Other: Photo from patient's iPhone 01/05/24 Left lower extremity: lower leg (Dressing dry and intact.) Psych Appearance: grossly normal Mental Status: mental status grossly normal Speech and movement: Normal speech and movement present and Clear speech present Affect: normal affect Attitude: cooperative Thought process: Normal thought process present Thought content: Normal thought content present, suicidality (none), no hallucinations and Depressive thoughts present Insight: Good insight present (Psych) Judgement: Good judgement present (Psych) Assessment & Plan Assessment & Plan (1) Peripheral neuropathy: Code(s): G62.9 - Polyneuropathy, unspecified Category: Medical (2) Chronic pain of left lower extremity: Code(s): M79.605 - Pain in left leg; G89.29 - Other chronic pain Category: Medical (3) Pyoderma gangrenosum: Code(s): L88 - Pyoderma gangrenosum Category: Medical (4) Chronic, continuous use of opioids: Code(s): F11.90 - Opioid use, unspecified, uncomplicated Category: Medical (5) Non-healing wound of left lower extremity: Code(s): S81.802A - Unspecified open wound, left lower leg, initial encounter Category: Medical Plan Patient has shown accountability for his medication regimen and the pill count was accurate. There is no evidence of misuse, abuse or diversion at this time. MassPat reviewed. Patient will continue to use morphine for wound care/dressing changes and moderate-severe pain as needed. I will hold off on refilling him with morphine at this time due to surplus. Continue duloxetine and gabapentin. [facility] scheduled on 01/24/24. All questions were answered and the patient is in agreement with the plan. Follow up in 4 weeks for a pill count or sooner if needed. Coding Level of Care Code Est Pt Level 3 (19891) Diagnoses Peripheral neuropathy G62.9 Chronic pain of left lower extremity M79.605; G89.29 Pyoderma gangrenosum L88 Chronic, continuous use of opioids F11.90 Non-healing wound of left lower extremity S81.802A
== END 2024-01-10 11:33 | disposition home or self-care (01) ==
PROVIDERS: PCP Internal Medicine; Visit Provider Nurse Practitioner Family
DX: G62.9 Polyneuropathy, unspecified (principal); M79.605 Pain in left leg; G89.29 Other chronic pain; L88 Pyoderma gangrenosum; Z79.891 Long term (current) use of opiate analgesic; S81.802A Unspecified open wound, left lower leg, initial encounter
CPT/HCPCS: 99213

== ENCOUNTER → 2024-01-10 10:53 | Outpatient (BNVA) | payer MEDICARE, SELFPAY | PROVIDERS: PCP Internal Medicine; Visit Provider Nurse Practitioner Family | DX: G62.9 Polyneuropathy, unspecified (principal); G89.29 Other chronic pain; M79.605 Pain in left leg; L88 Pyoderma gangrenosum; F11.90 Opioid use, unspecified, uncomplicated; S81.802A Unspecified open wound, left lower leg, initial encounter; X58.XXXA Exposure to other specified factors, initial encounter; Y93.9 Activity, unspecified; Y92.9 Unspecified place or not applicable; Y99.9 Unspecified external cause status; Z51.81 Encounter for therapeutic drug level monitoring | CPT/HCPCS: 99212 ==

== ENCOUNTER 2024-01-25 09:26 | Outpatient (AMB) | payer MEDICARE, SELFPAY ==
[2024-01-25 09:38] VITALS: BP 134/80; PULSE 70; BMI 29.0
--- NOTE | 2024-01-25 09:38 | MHC.OFFVIS ---
Vital Signs 01/25/24 09:38 Height 5 ft 6 in Weight 180 lb BMI 29.0 BP 134/80 Blood Pressure Location Lt brachial Pulse 70 Pulse Source Pulse Oximeter Intake Visit Reasons: 3 mth f/up Cyber Incident Handler: Cyber Incident Handler Present Allergies heparin (porcine) Allergy (Severe, Verified 01/25/24 09:41) HIT Medication List - Last Reconciled 01/25/24 by NOEMI Mendoza acetaminophen (Tylenol Extra Strength) 1,000 mg PO Q6H PRN adalimumab (Humira Pen) 40 mg subcut Q2W albuterol sulfate 90 mcg/actuation (ProAir HFA) 2 puffs inhalation Q6H PRN amlodipine 2.5 mg PO DAILY benfotiamine 300 mg PO ONCE duloxetine 20 mg PO BID 30 days fluticasone propionate 50 mcg/actuation (Flonase Allergy Relief) 2 sprays intranasal DAILY gabapentin 800 mg PO TID metoprolol succinate ER 50 mg PO DAILY miscellaneous medical supply As directed morphine 15 mg PO Q8H PRN 30 days naloxone 4 mg/actuation (Narcan) 4 mg intranasal Q2M PRN umeclidinium-vilanterol 62.5-25 mcg/actuation (Anoro Ellipta) 1 inh inhalation DAILY PRN HPI HPI 3 mth f/up: Details: Sarath is a 77-year-old male with past medical history of hypertension, pulmonary embolism with cardiac arrest 01/2022 with episodes of wide complex rhythm at that time which was thought to be SVT with aberrancy who recently underwent an echocardiogram and now presents for follow-up. He was not seen in our office between 01/2022 and last visit 10/11/2023. Today he reports that he has been doing well since his last visit in October. He denies any cardiac symptoms. Has not had any recurrent issues with pulmonary embolism, DVT or any clotting. He has not on blood thinners at this time. He denies any chest discomfort at rest or with activity. No heart palpitations, lightheadedness, presyncope, syncope, falls. No concerning shortness of breath, PND, orthopnea or edema. He continues to have issues with wounds on each lower leg. He has a chronic wound on his left lateral ankle and goes to the wound clinic weekly. For this reason he is not able to walk on his feet and uses a wheelchair. He has had chronic wounds on his right lower extremity as well and has extensive scarring. is present she brings a list of his blood pressures which are checked at different times throughout the day. His blood pressure readings are mostly elevated ranging from 130 up to 160 systolic. Home pulse rates are mostly in the 70s to 80s. He is taking his metoprolol 50 mg in the a.m. and 25 mg in the p.m. He is reluctant to start new medication. 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 Acute pulmonary embolism with acute cor pulmonale Acute pulmonary embolism Cardiac arrest CKD (chronic kidney disease) stage 3, GFR 30-59 ml/min Sjogren's disease Leg pain, bilateral Elevated serum creatinine COPD (chronic obstructive pulmonary disease) HTN (hypertension) Rheumatoid arthritis Chronic ulcer of leg Surgical History History of ankle surgery History of hernia repair History of left knee replacement Family History Sister Breast cancer Father Aneurysm Mother Angina at rest Other No family history of coronary artery disease Social History Household Members: Spouse Housing: House Do you presently have visiting nurse or other home services: No Alcohol intake: current Alcohol intake frequency: holidays/special occasions only Comment: restraints Patient Tobacco Use Status: Former Tobacco user Tobacco use type: Cigarette Cigarette Packs Per Day: 1 Years Smoked: quit + years e-Cigarette/Vaping Use: Never Used Advance Directives Date on File: 12/23/21 service: Yes Current occupational status: retired Cognitive needs: Yes (cane) Hearing needs: No Vision needs: Yes (Pt wear glasses. ) Review of Systems Const All systems reviewed & are unremarkable except as noted in HPI and below ENT Denies dizziness Card Denies chest pain, Denies chest pain at rest, Denies chest pain with activity, Denies rapid heart rate, Denies pedal edema, Denies edema, Denies leg edema, Denies lightheadedness, Denies palpitations, Denies dyspnea, Denies dyspnea on exertion and Denies orthopnea Resp Denies cough, Denies dyspnea and Denies dyspnea on exertion GI Denies hematochezia and Denies change in stool character Musc Reports abnormal gait (in wheelchair due to foot wound), Denies limited range of motion, Denies muscle cramps, Denies muscle weakness, Denies numbness, Denies radiating pain into limb, Denies stiffness and Denies tingling Neuro Reports abnormal gait (in wheelchair due to foot wound), Denies dizziness, Denies numbness and Denies tingling Endo Denies palpitations Physical Exam Vital Signs: Last Vital Signs Pulse 70 01/25/24 09:38 BP 134/80 01/25/24 09:38 BMI result Body Mass Index 29.0 Const General: cooperative, healthy appearing, comfortable and no acute distress Orientation/consciousness: patient oriented x3 Neck Neck: Yes normal visual inspection and Yes no JVD Resp Effort & Inspection: normal respiratory effort Auscultation: clear to auscultation bilaterally, no crackles, no rales, no rhonchi and no wheezes Cardio Jugular venous distension: no JVD Rate: regular rate Rhythm: regular rhythm Heart sounds: S1 normal heart sound present, S2 normal heart sound present, no murmurs and no rubs Neuro General: patient oriented x3 Extrem General: Yes normal to inspection, No no pedal edema and No calf tenderness Psych Appearance: grossly normal Mental Status: mental status grossly normal Speech and movement: Normal speech and movement present Assessment & Plan Assessment & Plan (1) HTN (hypertension): Code(s): I10 - Essential (primary) hypertension Category: Medical Plan: History of hypertension. Had been on metoprolol tartrate 25 mg b.i.d.. On last visit it was noted his blood pressures were mostly elevated. states they have had his home cuff calibrated with an office reading and they are equal. Metoprolol dose was increased. Patient did not want to start on additional agents. Today his office blood pressure is 134/82. List of home blood pressures reviewed and he does run a systolic as high as 150s to 160s with diastolic into the low 100s. On occasion his blood pressure will be 120s systolic. Overall he does need better blood pressure control. Spent time discussing medications. is concerned about dropping his heart rate too low with metoprolol. Patient is agreeable to make a change in medication but not increase the number of pills he takes. Will change his metoprolol to XL 50 mg once daily in the a.m.. Will add amlodipine 2.5 mg daily in the p.m. will check blood pressures at home and continue to keep a log. We will plan to call him in 2 weeks to reassess home blood pressures. If blood pressures remain elevated with systolic greater than 140 will plan to further titrate amlodipine up to 5 mg daily. He does have issues with chronic pain which can contribute to his elevated blood pressure readings. Reviewed this with him and he is following with pain management for this problem. (2) Acute pulmonary embolism with acute cor pulmonale: Code(s): I26.09 - Other pulmonary embolism with acute cor pulmonale Category: Medical Plan: History of an acute pulmonary embolism with cor pulmonale, cardiac arrest 01/2022. He cardiology consult at that time however has not followed up in our office until October 2023. He tells me he has had no recurrent issues with blood clots. His med list does not include a blood thinner at this time. No signs of heart failure on exam. An EKG was done last visit showing normal sinus rhythm, nonspecific T-wave abnormality, rate 80. Last known echo at time of his PE showed EF greater than 50%, moderate increase in the RV size and no valve abnormalities. Echocardiogram done on 11/05/2023 shows EF 55-60%, mild LVH, grade 1 diastolic dysfunction, normal valves, mildly dilated RV, ascending aorta 4.1 cm. Test results reviewed with him. (3) Cardiac arrest: Code(s): I46.9 - Cardiac arrest, cause unspecified Category: Medical Plan: At time of acute PE. Recent echo shows normal EF and no regional wall motion abnormalities. Will check with his primary ged preparation teacher regarding need for further ischemic eval. (4) SVT (supraventricular tachycardia): Code(s): I47.10 - Supraventricular tachycardia, unspecified Category: Medical Plan: Following PE while still hospitalized he was having runs of wide complex tachycardia which was evaluated by Dr. Carr and felt to be SVT with aberrancy. He was put on metoprolol and remains on it for heart rate and blood pressure control. No reports of heart palpitations. Will continue on metoprolol however adjust the dose as above. Plan Time spent on chart review, documentation, interview and assessment Medications: New amlodipine New BP medication 2.5 mg PO DAILY 30 tabs 2RF metoprolol succinate ER changing from Metoprolol tartrate to XL 50 mg PO DAILY 30 tabs 2RF Coding Level of Care Code Est Pt Level 4 (00663) Diagnoses HTN (hypertension) I10 Acute pulmonary embolism with acute cor pulmonale I26.09 Cardiac arrest I46.9 SVT (supraventricular tachycardia) I47.10 Time Spent (min) 30
== END 2024-01-25 10:34 | disposition home or self-care (01) ==
PROVIDERS: PCP Internal Medicine; Visit Provider Nurse Practitioner Family
DX: I10 Essential (primary) hypertension (principal); I26.09 Other pulmonary embolism with acute cor pulmonale; I46.9 Cardiac arrest, cause unspecified; I47.10 Supraventricular tachycardia, unspecified
CPT/HCPCS: 99214

== ENCOUNTER → 2024-01-25 09:26 | Outpatient (BNVA) | payer MEDICARE, SELFPAY | PROVIDERS: PCP Internal Medicine; Visit Provider Nurse Practitioner Family | DX: I10 Essential (primary) hypertension (principal); I26.09 Other pulmonary embolism with acute cor pulmonale; I47.10 Supraventricular tachycardia, unspecified; Z86.74 Personal history of sudden cardiac arrest | CPT/HCPCS: 99212 ==

== ENCOUNTER 2024-01-31 09:54 | Outpatient (AMB) | payer MEDICARE, SELFPAY ==
--- NOTE | 2024-01-31 10:10 | MHC.OFFVIS ---
Vital Signs 01/31/24 10:51 Height 5 ft 6 in Weight 186 lb 4.65 oz BMI 30.1 BP 144/88 H Blood Pressure Location Rt brachial Position Sitting Pulse 75 Pulse Source Pulse Oximeter Pulse Oximetry (%) 92 Oxygen Delivery Method Room Air Intake Visit Reasons: COPD/PFT CT Follow Up Allergies heparin (porcine) Allergy (Severe, Verified 01/31/24 10:56) HIT HPI HPI COPD/PFT CT Follow Up: Details: Sarath is a pleasant 78 year old male, former smoker, with 30 pack year history, quit 2019, with underlying COPD, Sjogren's, Rheumatoid arthritis on Humira, provoked PE, CKD, HTN and chronic nonhealing wound. At baseline, patient has been moderately controlled with Anoro, however does not use daily. He reports occasional dyspnea on exertion and productive cough with clear sputum. He denies any wheezing or chest tightness. He denies any visits to urgent care or hospitalizations since last visit. Of note, he continues to be nonambulatory due to poor healing wound on foot. Today he presents to review chest CT results. He was also sent for PFT however due to scheduling conflicts patient was unable to keep appt. [facility] Medical History MDD (major depressive disorder), single episode Pressure injury of buttock, stage 1 Deep vein thrombosis 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 Acute pulmonary embolism with acute cor pulmonale Acute pulmonary embolism Cardiac arrest CKD (chronic kidney disease) stage 3, GFR 30-59 ml/min Sjogren's disease Leg pain, bilateral Elevated serum creatinine COPD (chronic obstructive pulmonary disease) HTN (hypertension) Rheumatoid arthritis Chronic ulcer of leg Surgical History History of ankle surgery History of hernia repair History of left knee replacement Family History Sister Breast cancer Father Aneurysm Mother Angina at rest Other No family history of coronary artery disease Social History Household Members: Spouse Housing: House Do you presently have visiting nurse or other home services: No Alcohol intake: current Alcohol intake frequency: holidays/special occasions only Comment: restraints Patient Tobacco Use Status: Former Tobacco user Tobacco use type: Cigarette Cigarette Packs Per Day: 1 Years Smoked: quit 30+ years e-Cigarette/Vaping Use: Never Used Advance Directives Date on File: 12/23/21 service: Yes Current occupational status: retired Cognitive needs: Yes (cane) Hearing needs: No Vision needs: Yes (Pt wear glasses. ) Review of Systems Const Denies chills, Denies excessive sweating, Denies fever(s), Denies headache(s) and Denies night sweats Eyes Denies dry eyes, Denies irritation and Denies itchy eyes ENT Reports Normal hearing present, Denies headache(s), Denies nasal congestion, Denies nasal discharge and Denies sore throat Card Denies chest pain, Denies chest pain at rest, Denies chest pain with activity, Denies claudication, Denies orthopnea and Denies paroxysmal nocturnal dyspnea Resp Denies excessive phlegm production, Denies pain on inspiration, Denies pain with cough and Denies stridor Musc Denies myalgias Neuro Reports Normal hearing present and Denies headache(s) Endo Denies excessive sweating Jhon/Lymph Denies lymphadenopathy Aller/Immun Denies itchy eyes and Denies seasonal rhinorrhea Physical Exam Vital Signs: Last Vital Signs Pulse 75 01/31/24 10:51 BP 144/88 H 01/31/24 10:51 Pulse Ox 92 01/31/24 10:51 Oxygen Delivery Method Room Air 01/31/24 10:51 BMI result Body Mass Index 30.1 Const General: cooperative, healthy appearing, comfortable, no acute distress, well developed and alert Orientation/consciousness: patient oriented x3 Limitations: wheelchair HEENT Head: Yes normal to inspection, Yes normocephalic and Yes atraumatic Ears: hearing grossly normal bilaterally and external ears normal Eyes General: appearance normal, both eyes and all related structures Eyelids: Yes eyelids normal Sclerae: sclerae normal EOM: EOMs intact bilaterally Neck Neck: Yes normal visual inspection and Yes no lymphadenopathy Lymphatic: no lymphadenopathy noted Chest Chest palpation & inspection: normal inspection of the chest Resp Effort & Inspection: normal respiratory effort, able to speak in complete sentences, no audible wheezes, no cough, no stridor, not tachypneic, no tripod positioning and no use of accessory muscles Cardio Jugular venous distension: no JVD Rate: regular rate Skin Other: warm, dry Neuro General: patient oriented x3 Cranial nerves: Yes Normal hearing present Cognition (Neuro): normal cognition Extrem Other: LLE with edema, covered with dry, clean dressing Psych Appearance: grossly normal and well kempt Speech and movement: Normal speech and movement present and Clear speech present Affect: normal affect Attitude: cooperative Thought process: Normal thought process present Thought content: Normal thought content present Insight: Good insight present (Psych) Judgement: Good judgement present (Psych) Results Reviewed Results Reviewed: [address] [address] [address] Scan Report Signed Patient: Sarath Gipson MR#: [id number] : 1945 Acct:[id number] Age/Sex: 78 / M ADM Date: 11/23/23 Loc: HO.CT Attending Dr: Isamar Lock NP Ordering Physician: Isamar Lock NP Date of Service: 11/23/23 Procedure(s): CT chest wo IV con Accession Number(s): [id number] cc: Kia Stroud MD; Isamar Lock NP~ EXAMINATION: CT CHEST WITHOUT CONTRAST CLINICAL INFORMATION: Nicotine dependence. COMPARISON: CTA chest dated 01/09/2022. TECHNIQUE: Multidetector volumetric CT imaging of the chest was done. Axial MIP volume rendering provided. Sagittal and coronal reformatted images were obtained. This CT examination was performed using dose optimization techniques as appropriate, variously including the following: *Automated exposure control *Adjustment of mA and/or kV according to patient size (this includes techniques or standardized protocols for targeted exams where dose is matched to indication/reason for exam; i.e. extremities or head) *Use of iterative reconstruction technique DLP: 174 mGy-cm FINDINGS: REAL ESTATE DIRECTOR: There is bibasilar plate-like atelectasis. There is mild elevation of the right hemidiaphragm. LUNGS: There are diffuse centrilobular predominant emphysematous changes. There is bibasilar dependent atelectasis. Within the bilateral lower lung ryan, there are foci of scar/subsegmental atelectasis, without focal airway obstruction. There is no nodule, mass, infiltrate or groundglass opacity. No generalized small airway thickening is seen. The central airways appear patent. MEDIASTINUM: The thyroid is unremarkable. There is no thoracic aortic aneurysm. There are mild atherosclerotic calcifications of the great vessel origins and thoracic aorta. No mediastinal or hilar lymphadenopathy is seen. CORONARY ARTERY CALCIFICATION: None visualized on this study. PLEURA: There is no pleural effusion. No pleural mass or thickening. AXILLA: No lymphadenopathy. UPPER ABDOMEN: There is diffuse hepatic steatosis. The included portions of the adrenal glands are unremarkable. OSSEOUS STRUCTURES: There is multi-level thoracic and upper lumbar spondylosis. No acute or aggressive osseous finding is noted. CT/CT chest wo IV con IMPRESSION: There are diffuse centrilobular predominant emphysematous changes. There are scattered foci of lower lung field scar/subsegmental atelectasis, without associated focal airway obstruction. No nodule, mass, infiltrate or groundglass opacity is seen. There is no thoracic lymphadenopathy or pleural effusion. No aggressive osseous lesion is seen. Fleischner guidelines were followed. Dictated By: Jeffrey Lopez MD Signed By: <Electronically signed by Jeffrey Lopez MD in [place]> 01/06/24 2352 DD/ 1020 TD/TT: Senior Manufacturing Test Engineer: THAD Assessment & Plan Assessment & Plan (1) COPD (chronic obstructive pulmonary disease): Code(s): J44.9 - Chronic obstructive pulmonary disease, unspecified Category: Medical (2) Personal history of tobacco use: Code(s): Z87.891 - Personal history of nicotine dependence Category: Social Hx (3) Cough: Code(s): R05.9 - Cough, unspecified Category: Medical Plan Advised Sarath to use Anoro daily to better assess effectiveness of medication regimen. Reviewed chest CT which revealed significant emphysematous changes, without any concerning nodules. No need to repeat imaging at this time. Discussed 6MWT but unfortunately patient continues to be non weight bearing on the left. Patient does monitor oxygen at home and reports lowest 90% while awake. Will send for overnight oximetry to assess for nocturnal hypoxemia, to be performed on room air. Encouraged patient to reschedule PFT as they had scheduling conflicts with prior two scheduled PFTs. All questions were answered and patient is in agreement of plan. Will follow up in three months or sooner if needed. Orders: Orders Overnight Pulse Oximetry Today G47.34 - Idiopathic sleep related nonobstructive alveolar hypoventilation Medications: Refilled umeclidinium-vilanterol 62.5-25 mcg/actuation (Anoro Ellipta) 1 inh inhalation DAILY PRN 60 ea 11RF Shortness Of Breath J44.9 - Chronic obstructive pulmonary disease, unspecified Coding Level of Care Code Est Pt Level 4 (78172) Diagnoses COPD (chronic obstructive pulmonary disease) J44.9 Personal history of tobacco use Z87.891 Cough R05.9
[2024-01-31 10:51] VITALS: BP 144/88; PULSE 75; O2SAT 92; BMI 30.1
== END 2024-01-31 11:28 | disposition home or self-care (01) ==
PROVIDERS: PCP Internal Medicine; Visit Provider Nurse Practitioner Family
DX: J44.9 Chronic obstructive pulmonary disease, unspecified (principal); Z87.891 Personal history of nicotine dependence; R05.9 Cough, unspecified
CPT/HCPCS: 99214

== ENCOUNTER → 2024-01-31 09:54 | Outpatient (BNVA) | payer MEDICARE, SELFPAY | PROVIDERS: PCP Internal Medicine; Visit Provider Nurse Practitioner Family | DX: J44.9 Chronic obstructive pulmonary disease, unspecified (principal); G47.34 Idiopathic sleep related nonobstructive alveolar hypoventilation; Z87.891 Personal history of nicotine dependence | CPT/HCPCS: 99212 ==

== ENCOUNTER → 2024-02-10 13:11 | Outpatient (REF) | payer MEDICARE, SELFPAY ==
--- NOTE | 2024-02-10 13:15 | HM_ITS ---
* Total monitoring time 3 days. * Underlying rhythm is sinus with an average rate of 71/Min. * Rare supraventricular ectopy. * Rare ventricular ectopy. 2 brief runs, longest 4 beats. * No significant pauses or high-grade AV blocks. * No patient markers or diary events. MTDD
== END ==
LOC: HO.CARD 13:11
PROVIDERS: PCP Internal Medicine; Visit Provider Nurse Practitioner Family
DX: I47.10 Supraventricular tachycardia, unspecified (principal)
CPT/HCPCS: 93242

== ENCOUNTER → 2024-02-10 13:15 | Outpatient (BNV) | payer MEDICARE, SELFPAY | PROVIDERS: PCP Internal Medicine; Visit Provider Internal Medicine | DX: I47.10 Supraventricular tachycardia, unspecified (principal); I49.3 Ventricular premature depolarization | CPT/HCPCS: 93244 ==

== ENCOUNTER 2024-02-14 10:35 | Outpatient (AMB) | payer MEDICARE, SELFPAY ==
--- NOTE | 2024-02-14 10:37 | MHC.OFFVIS ---
Vital Signs 02/14/24 10:46 Height 5 ft 6 in Weight 186 lb BMI 30.0 BP 127/85 Blood Pressure Location Lt brachial Position Sitting Pulse 77 Pulse Source Pulse Oximeter Pulse Oximetry (%) 98 Oxygen Delivery Method Room Air Intake Visit Reasons: PILL COUNT Intake Note: Sarath comes in today for a pill count to morphine, patient should have 0 tablets and presents with 58 tablets which he last took yesterday 02/13/24 at 6pm. Pain today 11/18 [place] Screen Measurer And Trimmer Required: No Accompanied by: Spouse Allergies heparin (porcine) Allergy (Severe, Verified 02/14/24 10:46) HIT HPI Comments Details: Patient presents today for a pill count. Patient is supposed to have #0 pills, in his possession has #58 pills. Patient takes morphine mainly during wound care and dressing changes in clinic and home. For the past month, he took #22 tablets and also takes gabapentin, duloxetine and Tylenol. Patient reports recent follow up with Dermatology provider in [place] and has been changed to Humira 40 mg once a week. He continues to reports diarrhea episodes twice weekly and has notified his Dermatology regarding this who did not feel patient's GI symptoms were related to Humira. Patient has been doing BRAT diet and taking probiotics at home per patient's . Denies any fever, chills, weight loss, bleeding, weakness, dizziness, shortness of breaths, constipation, nausea, sedation, urinary retention or abdominal pain. 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 Acute pulmonary embolism with acute cor pulmonale Acute pulmonary embolism Cardiac arrest CKD (chronic kidney disease) stage 3, GFR 30-59 ml/min Sjogren's disease Leg pain, bilateral Elevated serum creatinine COPD (chronic obstructive pulmonary disease) HTN (hypertension) Rheumatoid arthritis Chronic ulcer of leg Surgical History History of ankle surgery History of hernia repair History of left knee replacement Family History Sister Breast cancer Father Aneurysm Mother Angina at rest Other No family history of coronary artery disease Social History Household Members: Spouse Housing: House Do you presently have visiting nurse or other home services: No Alcohol intake: current Alcohol intake frequency: holidays/special occasions only Comment: restraints Patient Tobacco Use Status: Former Tobacco user Tobacco use type: Cigarette Cigarette Packs Per Day: 1 Years Smoked: quit 2018/ 30+ years e-Cigarette/Vaping Use: Never Used Advance Directives Date on File: 12/23/21 service: Yes Current occupational status: retired Cognitive needs: Yes (cane) Hearing needs: No Vision needs: Yes (Pt wear glasses. ) Review of Systems Const All systems reviewed & are unremarkable except as noted in HPI and below Physical Exam Vital Signs: Last Vital Signs Pulse 77 02/14/24 10:46 BP 127/85 02/14/24 10:46 Pulse Ox 98 02/14/24 10:46 Oxygen Delivery Method Room Air 02/14/24 10:46 BMI result Body Mass Index 30.0 General: Appears afebrile. Alert and oriented. Mood and affect appropriate. Follows and participates in conversation appropriately. Respiratory effort is unlabored. No cough. Sitting comfortably in the wheelchair. Difficulty standing on LLE due to increase in pain. Left lower leg dressed with dressing, dry and intact. Resp Effort & Inspection: normal respiratory effort, able to speak in complete sentences, no cough, no respiratory distress and No symmetric chest movement Extrem Left lower extremity: lower leg (Dressing dry and intact.) Psych Appearance: grossly normal and well kempt Mental Status: mental status grossly normal Speech and movement: Normal speech and movement present and Clear speech present Affect: normal affect Attitude: cooperative Thought process: Normal thought process present Thought content: Normal thought content present, suicidality (none), no hallucinations and Depressive thoughts present Insight: Good insight present (Psych) Judgement: Good judgement present (Psych) Results Reviewed Results Reviewed: Assessment & Plan Assessment & Plan (1) Peripheral neuropathy: Code(s): G62.9 - Polyneuropathy, unspecified Category: Medical (2) Chronic pain of left lower extremity: Code(s): M79.605 - Pain in left leg; G89.29 - Other chronic pain Category: Medical (3) Pyoderma gangrenosum: Code(s): L88 - Pyoderma gangrenosum Category: Medical (4) Chronic, continuous use of opioids: Code(s): F11.90 - Opioid use, unspecified, uncomplicated Category: Medical (5) Non-healing wound of left lower extremity: Code(s): S81.802A - Unspecified open wound, left lower leg, initial encounter Category: Medical Plan Patient has shown accountability for his medication regimen and the pill count was accurate. There is no evidence of misuse, abuse or diversion at this time. [employer] reviewed. Patient will continue to use morphine for wound care/dressing changes and moderate-severe pain as needed. I will hold off on refilling him with morphine at this time due to surplus. Continue duloxetine, gabapentin and Tylenol. [facility]. Patient is currently on Humira 40 mg once a week. Patient reports episodes of diarrhea twice/week with minimal improvement with BRAT diet and probiotics. He is encouraged to notify his PCP if his GI symptoms worsen. All questions were answered and the patient is in agreement with the plan. Follow up in 4-5 weeks for a pill count or sooner if needed. Coding Level of Care Code Est Pt Level 3 (06473) Diagnoses Peripheral neuropathy G62.9 Chronic pain of left lower extremity M79.605; G89.29 Pyoderma gangrenosum L88 Chronic, continuous use of opioids F11.90 Non-healing wound of left lower extremity S81.802A
[2024-02-14 10:46] VITALS: BP 127/85; PULSE 77; O2SAT 98
== END 2024-02-14 11:04 | disposition home or self-care (01) ==
PROVIDERS: PCP Internal Medicine; Visit Provider Nurse Practitioner Family
DX: G62.9 Polyneuropathy, unspecified (principal); M79.605 Pain in left leg; G89.29 Other chronic pain; Z79.891 Long term (current) use of opiate analgesic; L88 Pyoderma gangrenosum; S81.802A Unspecified open wound, left lower leg, initial encounter
CPT/HCPCS: 99213

== ENCOUNTER → 2024-02-14 10:35 | Outpatient (BNVA) | payer MEDICARE, SELFPAY | PROVIDERS: PCP Internal Medicine; Visit Provider Nurse Practitioner Family | DX: G62.9 Polyneuropathy, unspecified (principal); M79.605 Pain in left leg; G89.29 Other chronic pain; L88 Pyoderma gangrenosum; F11.90 Opioid use, unspecified, uncomplicated; Z51.81 Encounter for therapeutic drug level monitoring | CPT/HCPCS: 99212 ==

== ENCOUNTER 2024-03-03 10:40 | Outpatient (AMB) | payer MEDICARE, SELFPAY ==
[2024-03-03 10:46] VITALS: BP 130/80; PULSE 74; O2SAT 98; BMI 29.9
--- NOTE | 2024-03-03 10:46 | MHC.PC.OV ---
Vital Signs 03/03/24 10:46 Height 5 ft 6 in Weight 185 lb 3.013 oz BMI 29.9 BP 130/80 Blood Pressure Location Lt brachial Position Sitting Pulse 74 Pulse Source Pulse Oximeter Pulse Oximetry (%) 98 Oxygen Delivery Method Room Air Intake Visit Reasons: Pyoderma gangrenosum Geology Scientist Required: No Accompanied by: Self / Same As Patient Allergies heparin (porcine) Allergy (Severe, Verified 03/03/24 10:46) HIT Medication List - Last Reconciled 03/03/24 by Kia Stroud MD acetaminophen (Tylenol Extra Strength) 1,000 mg PO Q6H PRN adalimumab (Humira Pen) 40 mg subcut Q2W albuterol sulfate 90 mcg/actuation (ProAir HFA) 2 puffs inhalation Q6H PRN amlodipine 2.5 mg PO DAILY benfotiamine 300 mg PO ONCE duloxetine 20 mg PO BID 30 days fluticasone propionate 50 mcg/actuation (Flonase Allergy Relief) 2 sprays intranasal DAILY gabapentin 600 mg PO TID 30 days metoprolol succinate ER 50 mg PO DAILY miscellaneous medical supply As directed morphine 15 mg PO Q8H PRN 30 days naloxone 4 mg/actuation (Narcan) 4 mg intranasal Q2M PRN umeclidinium-vilanterol 62.5-25 mcg/actuation (Anoro Ellipta) 1 inh inhalation DAILY PRN Tobacco use date assessed: 03/03/24 Fall risk assessment: No Falls in past year Last assessed Fall Risk: 03/03/24 Dental Screening Dental Screen Date: 03/03/24 Did you have a dental visit in the last 12 months?: No Did you have a dental problem in the last 6 months where you did not have access to dental care?: No Was dental information given to patient?: No HPI Pyoderma gangrenosum HPI Details 78-year-old overweight male with a 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 Last seen in August 2023. Patient follows up with wound care for the leg ulcers left lateral and follows up with pain management also on morphine. Had Holter monitor done in February Total monitoring time 3 days. Underlying rhythm is sinus with an average rate of 71/Min. Rare supraventricular ectopy. Rare ventricular ectopy. 2 brief runs, longest 4 beats. No significant pauses or high-grade AV blocks. No patient markers or diary events. 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 Seen Rheumatology also in November [facility] Medical History MDD (major depressive disorder), single episode Pressure injury of buttock, stage 1 Deep vein thrombosis 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 Acute pulmonary embolism with acute cor pulmonale Acute pulmonary embolism Cardiac arrest CKD (chronic kidney disease) stage 3, GFR 30-59 ml/min Sjogren's disease Leg pain, bilateral Elevated serum creatinine COPD (chronic obstructive pulmonary disease) HTN (hypertension) Rheumatoid arthritis Chronic ulcer of leg Surgical History History of ankle surgery History of hernia repair History of left knee replacement Family History Sister Breast cancer Father Aneurysm Mother Angina at rest Other No family history of coronary artery disease Social History Household Members: Spouse Housing: House Do you presently have visiting nurse or other home services: No Alcohol intake: current Alcohol intake frequency: holidays/special occasions only Comment: restraints Patient Tobacco Use Status: Former Tobacco user Tobacco use type: Cigarette Cigarette Packs Per Day: 1 Years Smoked: quit 2018/ 30+ years e-Cigarette/Vaping Use: Never Used Advance Directives Date on File: 12/23/21 service: Yes Current occupational status: retired Cognitive needs: Yes (cane) Hearing needs: No Vision needs: Yes (Pt wear glasses. ) Questionnaire PHQ-9 Over the last 2 weeks, how often have you been bothered by any of the following problems? 1. Little interest or pleasure in doing things: not at all 2. Feeling down, depressed, or hopeless: not at all 3. Trouble falling or staying asleep, or sleeping too much: not at all 4. Feeling tired or having little energy: not at all 5. Poor appetite or overeating: not at all 6. Feeling bad about yourself - or that you are a failure or have let yourself or your family down: not at all 7. Trouble concentrating on things, such as reading the newspaper or watching television: not at all 8. Moving or speaking so slowly that other people could have noticed. Or the opposite - being so fidgety or restless that you have been moving around a lot more than usual: not at all 9. Thoughts that you would be better off or of hurting yourself in some way: not at all Total score: 0 Depression Screening Interpretation: Negative Depression Screening Done: Yes Source: Developed by Drs. Ronal Rivero, Cecelia Cortez, Johny Ocasio and colleagues, with an educational samantha from [employer]. Thrive Questionnaire Date Thrive assessed: 03/03/24 I am a: Patient What is your living situation today?: I have a steady place to live Within the past 12 months, did the food you bought not last and you didn't have the money to get more?: Never true Within the past 12 months, did you worry whether your food would run out before you got money to buy more?: Never true Do you have trouble paying for medicines?: No Do you have trouble getting transportation to medical appointments?: No Do you have trouble paying your heating and electricity bill?: No Do you have trouble taking care of your child, family member or friend?: No Do you have trouble with day-to-day activities such as bathing, preparing meals, shopping, managing finances, etc.?: No Are you currently unemployed and looking for a job?: No Are you interested in more education?: No Please select the resources that you would like help with: None Currently or been in a relationship where the following occur: No concerns reported THRIVE Score: 0 AUDIT C Alcohol Use Questionnaire (AUDIT-C) 1. How often do you have a drink containing alcohol?: Never 2. How many drinks containing alcohol do you have on a typical day when you are drinking?: 1 or 2 (0) 3. How often do you have six or more drinks on one occasion?: Never Total Score: 0 RENETTA-7 AMB Questionnaire RENETTA-7 Date RENETTA - 7 assessed: 03/03/24 Feeling nervous, anxious, or on edge: 0 = Not at all Not being able to stop or control worryin = Not at all Worrying too much about different things: 0 = Not at all Trouble relaxin = Not at all Being so restless that it is hard to sit still: 0 = Not at all Becoming easily annoyed or irritable: 0 = Not at all Feeling afraid as if something awful might happen: 0 = Not at all Total RENETTA-7 score (0-4 normal; 5-9 mild; 10-14 moderate; 15-21 severe): 0 Source: Developed by Drs. Ronal Rivero, Cecelia Cortez, Johny Ocasio and colleagues, with an educational samantha from [employer]. Physical exam (Primary Care) Vital Signs: Last Vital Signs Pulse 74 03/03/24 10:46 BP 130/80 03/03/24 10:46 Pulse Ox 98 03/03/24 10:46 Oxygen Delivery Method Room Air 03/03/24 10:46 BMI result Body Mass Index 29.9 Tobacco/Smoking Status: Tobacco use Status Tobacco use date assessed 03/03/24 03/03/24 10:55 Patient Tobacco Use Status Former Tobacco user 03/03/24 10:55 Tobacco use type Cigarette 03/03/24 10:55 e-Cigarette/Vaping Use Never Used 03/03/24 10:55 PHQ-9: PHQ-9 Score PHQ-9: Total score 0 03/03/24 11:24 Depression Screening Interpretation: Negative Thrive Assessment: Date of Thrive Assessment Date Thrive assessed 03/03/24 03/03/24 10:55 Currently or been in a relationship where the following occur: No concerns reported Const General: alert; No acute distress Eyes Conjunctivae: conjunctivae normal Resp Auscultation: clear to auscultation bilaterally Cardio Rate: regular rate Rhythm: regular rhythm GI Inspection: Yes normal to inspection Extrem Other: Bilateral lower extremity swelling, left leg with bandage on right leg has no open wound but has scaly rash. Assessment and Plan Assessment & Plan (1) Personal history of tobacco use: Comment: CT 10/30/2023 Code(s): Z87.891 - Personal history of nicotine dependence Plan: Patient is being followed up by Pulmonary CT scan done in October 2023 (2) Pyoderma gangrenosum: Code(s): L88 - Pyoderma gangrenosum Plan: Patient continues to follow-up with dermatology Rheumatology wound care in pain management (3) HTN (hypertension): Code(s): I10 - Essential (primary) hypertension Plan: Continue with blood pressure medication. Decrease salt intake and exercise has seen Cardiology and has modified blood pressure medication with metoprolol and amlodipine (4) Rheumatoid arthritis: Code(s): M06.9 - Rheumatoid arthritis, unspecified Qualifiers: Rheumatoid arthritis location: multiple sites Rheumatoid factor presence: without rheumatoid factor Qualified Code(s): M06.09 - Rheumatoid arthritis without rheumatoid factor, multiple sites Plan: Continue to follow-up with Rheumatology and has been placed on Humira (5) COPD (chronic obstructive pulmonary disease): Code(s): J44.9 - Chronic obstructive pulmonary disease, unspecified Plan: Continue with the inhalers on Anoro albuterol (6) CKD (chronic kidney disease) stage 3, GFR 30-59 ml/min: Code(s): N18.30 - Chronic kidney disease, stage 3 unspecified Plan: Continue to monitor kidney function Orders: Orders Complete Blood Count Auto Diff Today I10 - Essential (primary) hypertension Erythrocyte Sedimentation Rate Today I10 - Essential (primary) hypertension Magnesium Today I10 - Essential (primary) hypertension UA w Microscopic Today I10 - Essential (primary) hypertension Comprehensive Met. Panel Today I10 - Essential (primary) hypertension Free T4 (Free Thyroxine) Today I10 - Essential (primary) hypertension Lipid Panel Today E78.00 - Pure hypercholesterolemia, unspecified, I10 - Essential (primary) hypertension Vitamin B12 and Folate Today I10 - Essential (primary) hypertension C Reactive Protein Today I10 - Essential (primary) hypertension Thyroid Stimulating Hormone Today I10 - Essential (primary) hypertension Coding Level of Care Code Est Pt Level 4 (15091) Diagnoses Personal history of tobacco use Z87.891 Pyoderma gangrenosum L88 HTN (hypertension) I10 Rheumatoid arthritis of multiple sites with negative rheumatoid factor M06.09 Rheumatoid arthritis location: multiple sites Rheumatoid factor presence: without rheumatoid factor COPD (chronic obstructive pulmonary disease) J44.9 CKD (chronic kidney disease) stage 3, GFR 30-59 ml/min N18.30 Additional Codes PHQ-9 - 66512 - PHQ-9 Billing: ([id number])
== END 2024-03-03 11:43 | disposition home or self-care (01) ==
PROVIDERS: PCP Internal Medicine; Visit Provider Internal Medicine
DX: I12.9 Hypertensive chronic kidney disease with stage 1 through stage 4 chronic kidney disease, or unspecified chronic kidney disease (principal); N18.30 Chronic kidney disease, stage 3 unspecified; L88 Pyoderma gangrenosum; M06.09 Rheumatoid arthritis without rheumatoid factor, multiple sites; J44.9 Chronic obstructive pulmonary disease, unspecified; Z87.891 Personal history of nicotine dependence
CPT/HCPCS: 99214

== ENCOUNTER 2024-03-06 15:28 | Outpatient (AMB) | payer MEDICARE, SELFPAY ==
[2024-03-06 15:35] VITALS: BMI 29.9
--- NOTE | 2024-03-06 15:35 | A.OFFVIS_ITS ---
Vital Signs 03/06/24 15:35 Height 5 ft 6 in Weight 185 lb 3.013 oz BMI 29.9 Intake Visit Reasons: Left lateral leg ulcer Intake Note: This patient was referred by [facility] clinic for Left lateral leg ulcer assessment. Pt c/o; reports has been going to the wound clinic for the past 2 years, reports ulcer and dry skin around wound, reports he goes to the wound clinic every other Wednesday. Customs Director Required: No Accompanied by: Spouse Allergies heparin (porcine) Allergy (Severe, Verified 03/06/24 15:48) HIT Medication List - Last Reconciled 03/07/24 by Qamar Cedeno MD acetaminophen (Tylenol Extra Strength) 1,000 mg PO Q6H PRN adalimumab (Humira Pen) 40 mg subcut Q2W albuterol sulfate 90 mcg/actuation (ProAir HFA) 2 puffs inhalation Q6H PRN amlodipine 2.5 mg PO DAILY benfotiamine 300 mg PO ONCE duloxetine 20 mg PO BID 30 days fluticasone propionate 50 mcg/actuation (Flonase Allergy Relief) 2 sprays intranasal DAILY gabapentin 600 mg PO TID 30 days metoprolol succinate ER 50 mg PO DAILY miscellaneous medical supply As directed morphine 15 mg PO Q8H PRN 30 days naloxone 4 mg/actuation (Narcan) 4 mg intranasal Q2M PRN umeclidinium-vilanterol 62.5-25 mcg/actuation (Anoro Ellipta) 1 inh inhalation DAILY PRN HPI HPI Left lateral leg ulcer: Details: He is here for follow-up for his chronic ulcers on the left leg. He is well known to me for these chronic ulcers. He actually is being followed by the Wound Clinic. He had large multiple ulcers in the past. He has this particular ulcer on the lateral aspect of the left leg which has persisted. However, this has actually improved significantly with a p ast 2 years. He had been started on biologic treatment. He is currently on Humira. His other ulcers have resolved on the area areas of his leg. His pain level has improved significantly. He is able to tolerate dressing changes now without significant pain. He is able to stand up and do transfers and ambulate for short distances but is mostly wheelchair-bound. [facility] Medical History MDD (major depressive disorder), single episode Pressure injury of buttock, stage 1 Deep vein thrombosis 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 Acute pulmonary embolism with acute cor pulmonale Acute pulmonary embolism Cardiac arrest CKD (chronic kidney disease) stage 3, GFR 30-59 ml/min Sjogren's disease Leg pain, bilateral Elevated serum creatinine COPD (chronic obstructive pulmonary disease) HTN (hypertension) Rheumatoid arthritis Chronic ulcer of leg Surgical History History of ankle surgery History of hernia repair History of left knee replacement Family History Sister Breast cancer Father Aneurysm Mother Angina at rest Other No family history of coronary artery disease Social History Household Members: Spouse Housing: House Do you presently have visiting nurse or other home services: No Alcohol intake: current Alcohol intake frequency: holidays/special occasions only Comment: restraints Patient Tobacco Use Status: Former Tobacco user Tobacco use type: Cigarette Cigarette Packs Per Day: 1 Years Smoked: quit + years e-Cigarette/Vaping Use: Never Used Advance Directives Date on File: 12/23/21 service: Yes Current occupational status: retired Cognitive needs: Yes (cane) Hearing needs: No Vision needs: Yes (Pt wear glasses. ) Review of Systems Const Denies chills Card Denies chest pain, Denies dyspnea and Denies dyspnea on exertion Resp Denies cough, Denies dyspnea and Denies dyspnea on exertion GI Denies hematochezia and Denies change in bowel habits Denies hematuria and Denies difficulty urinating Musc Details: Able to walk short distances and do transfers Denies back pain and Reports limited range of motion Neuro Denies focal weakness and Denies convulsions Psych Denies depression and Denies mood swings Physical Exam Vital Signs: BMI result Body Mass Index 29.9 Const Other: Looks well General: comfortable and no acute distress Resp Effort & Inspection: normal respiratory effort Cardio Rate: regular rate GI Palpation (GI): Soft to palpation Extrem Other: Ulcer on the lateral aspect of the lower leg on the left, clean, measuring 8 x 11 cm in diameter, no eschar, no gangrenous areas, with note of chronic trophic changes on the entire leg, Assessment & Plan Assessment & Plan (1) Non-healing wound of left lower extremity: Code(s): S81.802A - Unspecified open wound, left lower leg, initial encounter Category: Medical Plan: Most of his ulcers have actually healed. There was 1 persistent ulcer on the lateral aspect of the left lower leg, measuring 11 x 8 cm as described above. This appears to be clean without any eschar or gangrenous tissue. This appears to involve the full-thickness of the skin and has expose subcutaneous fat The exact etiology of his chronic ulcers is unclear. He has had multiple workups in [place] and had been seen by wound doctors in [place]. He seems to be responding well to biologic treatment with Humira. I changed his dressings. I would continue with the wound care regimen. His does dressing changes at home. Overall he has improved significantly since I had been taking care of his wound 2 years ago. He can follow up with me on a p.r.n. basis. Currently does not require any debridement or surgical intervention for his ulcers. Coding Level of Care Code Est Pt Level 3 (41990) Diagnoses Non-healing wound of left lower extremity S81.802A
== END 2024-03-06 16:12 | disposition home or self-care (01) ==
PROVIDERS: PCP Internal Medicine; Referring Provider Surgery; Visit Provider Surgery
DX: S81.802A Unspecified open wound, left lower leg, initial encounter (principal)
CPT/HCPCS: 99213

== ENCOUNTER → 2024-03-06 15:28 | Outpatient (BNVA) | payer MEDICARE, SELFPAY | PROVIDERS: PCP Internal Medicine; Referring Provider Surgery; Visit Provider Surgery | DX: Z09 Encounter for follow-up examination after completed treatment for conditions other than malignant neoplasm (principal); L97.822 Non-pressure chronic ulcer of other part of left lower leg with fat layer exposed | CPT/HCPCS: 99212 ==

== ENCOUNTER 2024-03-20 10:30 | Outpatient (AMB) | payer MEDICARE, SELFPAY ==
--- NOTE | 2024-03-20 10:33 | MHC.OFFVIS ---
Vital Signs 03/20/24 10:41 Height 5 ft 6 in Weight 185 lb BMI 29.9 BP 133/85 Blood Pressure Location Lt brachial Position Sitting Pulse 74 Pulse Source Pulse Oximeter Pulse Oximetry (%) 97 Oxygen Delivery Method Room Air Intake Visit Reasons: Pill Count Intake Note: Sarath comes in today for a pill count to Morphine, patient should have 0 tablets and presents with 48 tablets which he last took yestaerday 03/19/24 at 3pm. Pain today 03/21 Interlocking And Signal Mechanic Required: No Accompanied by: Spouse Allergies heparin (porcine) Allergy (Severe, Verified 03/20/24 10:41) HIT Medication List - Last Reconciled 03/20/24 by MARJORIE Pierce acetaminophen (Tylenol Extra Strength) 1,000 mg PO Q6H PRN adalimumab (Humira Pen) 40 mg subcut Q2W adalimumab (Humira(CF) Pen) 40 mg subcut Q2W albuterol sulfate 90 mcg/actuation (ProAir HFA) 2 puffs inhalation Q6H PRN amlodipine 2.5 mg PO DAILY benfotiamine 300 mg PO ONCE duloxetine 20 mg PO BID 30 days fluticasone propionate 50 mcg/actuation (Flonase Allergy Relief) 2 sprays intranasal DAILY gabapentin 600 mg PO TID 30 days hydromorphone 2 mg PO BID-TID PRN 30 days metoprolol succinate ER 50 mg PO DAILY miscellaneous medical supply As directed mycophenolate mofetil 500 mg PO QAM naloxone 4 mg/actuation (Narcan) 4 mg intranasal Q2M PRN umeclidinium-vilanterol 62.5-25 mcg/actuation (Anoro Ellipta) 1 inh inhalation DAILY PRN HPI Comments Details: Patient presents today for a pill count. Patient is supposed to have #0 pills, in his possession has #48 pills. Patient takes morphine mainly during wound care and dressing changes in clinic and home. Patient reports morphine is not controlling his pain, especially with the dressing changes. He is interested to trial to return to hydromorphine as this was previously unavailable due to national shortage. He continues to take gabapentin, duloxetine and Tylenol and Humira per Dermatology provider. Denies any fever, chills, weight loss, bleeding, weakness, dizziness, shortness of breaths, constipation, nausea, sedation, urinary retention or abdominal pain. [facility] Medical History MDD (major depressive disorder), single episode Pressure injury of buttock, stage 1 Deep vein thrombosis 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 Acute pulmonary embolism with acute cor pulmonale Acute pulmonary embolism Cardiac arrest CKD (chronic kidney disease) stage 3, GFR 30-59 ml/min Sjogren's disease Leg pain, bilateral Elevated serum creatinine COPD (chronic obstructive pulmonary disease) HTN (hypertension) Rheumatoid arthritis Chronic ulcer of leg Surgical History History of ankle surgery History of hernia repair History of left knee replacement Family History Sister Breast cancer Father Aneurysm Mother Angina at rest Other No family history of coronary artery disease Social History Household Members: Spouse Housing: House Do you presently have visiting nurse or other home services: No Alcohol intake: current Alcohol intake frequency: holidays/special occasions only Comment: restraints Patient Tobacco Use Status: Former Tobacco user Tobacco use type: Cigarette Cigarette Packs Per Day: 1 Years Smoked: quit + years e-Cigarette/Vaping Use: Never Used Advance Directives Date on File: 12/23/21 service: Yes Current occupational status: retired Cognitive needs: Yes (cane) Hearing needs: No Vision needs: Yes (Pt wear glasses. ) Review of Systems Const All systems reviewed & are unremarkable except as noted in HPI and below Physical Exam Vital Signs: Last Vital Signs Pulse 74 03/20/24 10:41 BP 133/85 03/20/24 10:41 Pulse Ox 97 03/20/24 10:41 Oxygen Delivery Method Room Air 03/20/24 10:41 BMI result Body Mass Index 29.9 General: Appears afebrile. Alert and oriented. Mood and affect appropriate. Follows and participates in conversation appropriately. Respiratory effort is unlabored. No cough. Sitting comfortably in the wheelchair. Difficulty standing on LLE due to increase in pain. Left lower leg dressed with dressing, dry and intact. Resp Effort & Inspection: normal respiratory effort, able to speak in complete sentences, no cough, no respiratory distress and No symmetric chest movement Extrem Other: Left lower extremity: lower leg (Dressing dry and intact.) Psych Appearance: grossly normal and well kempt Mental Status: mental status grossly normal Speech and movement: Normal speech and movement present and Clear speech present Affect: normal affect Attitude: cooperative Thought process: Normal thought process present Thought content: Normal thought content present, suicidality (none), no hallucinations and Depressive thoughts present Insight: Good insight present (Psych) Judgement: Good judgement present (Psych) Results Reviewed Results Reviewed: Assessment & Plan Assessment & Plan (1) Peripheral neuropathy: Code(s): G62.9 - Polyneuropathy, unspecified Category: Medical (2) Chronic pain of left lower extremity: Code(s): M79.605 - Pain in left leg; G89.29 - Other chronic pain Category: Medical (3) Pyoderma gangrenosum: Code(s): L88 - Pyoderma gangrenosum Category: Medical (4) Chronic, continuous use of opioids: Code(s): F11.90 - Opioid use, unspecified, uncomplicated Category: Medical (5) Non-healing wound of left lower extremity: Code(s): S81.802A - Unspecified open wound, left lower leg, initial encounter Category: Medical Plan Patient has shown accountability for his medication regimen and the pill count was accurate. There is no evidence of misuse, abuse or diversion at this time. [employer] reviewed. Will stop morphine and restart hydromorphine 2 mg bid-tid prn for wound care/dressing changes and moderate-severe pain as needed, script sent today. Continue duloxetine at pm, gabapentin 600 mg in am and 800 at pm and Tylenol prn. [facility]. All questions were answered and the patient is in agreement with the plan. Follow up in 4-5 weeks for a pill count or sooner if needed. Medications: Refilled hydromorphone Partial Fill upon patient request. 2 mg PO BID-TID 30 days PRN 60 tabs 0RF Pain, Moderate (Pain Scale 4-6 F11.90 - Opioid use, unspecified, uncomplicated, G89.29 - Other chronic pain, L88 - Pyoderma gangrenosum, M79.605 - Pain in left leg Discontinued morphine Partial Fill upon patient request. Discontinued Reason: Doctor's Order 15 mg PO Q8H 30 days PRN 90 tabs 0RF pain F11.90 - Opioid use, unspecified, uncomplicated, G89.29 - Other chronic pain, M79.605 - Pain in left leg, S81.802A - Unspecified open wound, left lower leg, initial encounter Coding Level of Care Code Est Pt Level 4 (52433) Complex EM visit Add On G2211 Diagnoses Peripheral neuropathy G62.9 Chronic pain of left lower extremity M79.605; G89.29 Pyoderma gangrenosum L88 Chronic, continuous use of opioids F11.90 Non-healing wound of left lower extremity S81.802A
[2024-03-20 10:41] VITALS: BP 133/85; PULSE 74; O2SAT 97; BMI 29.9
== END 2024-03-20 11:01 | disposition home or self-care (01) ==
PROVIDERS: PCP Internal Medicine; Visit Provider Nurse Practitioner Family
DX: G62.9 Polyneuropathy, unspecified (principal); M79.605 Pain in left leg; G89.29 Other chronic pain; L88 Pyoderma gangrenosum; Z79.891 Long term (current) use of opiate analgesic; S81.802A Unspecified open wound, left lower leg, initial encounter
CPT/HCPCS: 99214; G2211

== ENCOUNTER → 2024-03-20 10:30 | Outpatient (BNVA) | payer MEDICARE, SELFPAY | PROVIDERS: PCP Internal Medicine; Visit Provider Nurse Practitioner Family | DX: G62.9 Polyneuropathy, unspecified (principal); M79.605 Pain in left leg; G89.29 Other chronic pain; L88 Pyoderma gangrenosum; F11.90 Opioid use, unspecified, uncomplicated; S81.802A Unspecified open wound, left lower leg, initial encounter; X58.XXXA Exposure to other specified factors, initial encounter; Y93.9 Activity, unspecified; Y92.9 Unspecified place or not applicable; Y99.9 Unspecified external cause status; Z51.81 Encounter for therapeutic drug level monitoring | CPT/HCPCS: 99212 ==

== ENCOUNTER 2024-03-24 08:58 | Outpatient (REF) | payer MEDICARE, SELFPAY ==
[2024-03-24 10:25] LABS: MANUAL DIFF FLAG NO
[2024-03-24 10:35] LABS: Basophils Absolute Auto 0.1 X10*3/uL (0.0-0.2); Basophils Percent Auto 1.1 % (0-2); Eosinophils Absolute Auto 0.1 X10*3/uL (0.0-0.4); Eosinophils Percent Auto 2.5 % (0-4); Hematocrit 45.9 % (42.0-52.0); Hemoglobin 14.6 g/dl (14.0-18.0); Imm Gran Abs Auto 0.02 X10*3/uL (0.00-0.03); Imm Gran Pct Auto 0.4 % (0.0-0.4); Lymphocytes Absolute Auto 1.7 X10*3/uL (1.2-4.9); Lymphocytes Percent Auto 30.1 % (20-40); Mean Corpuscular HGB Conc 31.8 g/dl (31.0-36.0); Mean Corpuscular Hemoglobin 26.7 pg (27.0-33.0); Mean Corpuscular Volume 83.9 fL (80.0-98.0); Mean Platelet Volume 9.7 fL (9.4-12.4); Monocytes Absolute Auto 0.5 X10*3/uL (0.1-1.2); Monocytes Percent Auto 8.3 % (2-11); Neutrophils Absolute Auto 3.3 x10*3/uL (2.0-8.3); Neutrophils Percent Auto 57.6 % (45-73); Platelet Count 266 X10*3/uL (160-400); Red Blood Count 5.47 X10*6/uL (4.60-5.80); Red Cell Distribution Width 15.5 % (11.0-16.0); White Blood Count 5.6 X10*3/uL (4.8-10.8)
[2024-03-24 10:41] LABS: Appearance Urine Clear; Color Urine Yellow; Glucose Urine UA Negative (Negative); Leukocyte Esterase Urine Negative (Negative); Nitrite Urine Negative (Negative); PH 5.5 (5.0-9.0); Urine Blood Negative (Negative); Urine Ketones Negative (Negative); Urine Protein Negative (Neg-Trace)
[2024-03-24 10:45] LABS: Bacteria Urine None Seen (None Seen); Hyaline Casts Urine 0-2 /LPF (0-2); RBC Urine 0-2 /HPF (0-2); Squamous Epithelial Cell Urine 0-2 /HPF (0-2); WBC Urine 0-5 /HPF (0-5)
[2024-03-24 10:57] LABS: Alanine Aminotransferase 15 U/L (0-40); Albumin Level 4.3 g/dL (3.5-5.0); Alkaline Phosphatase 71 U/L (39-117); Anion Gap 14 (12-20); Aspartate Amino Transferase 14 U/L (5-37); Bilirubin Total 0.5 mg/dL (0.0-1.0); Blood Urea Nitrogen 14 mg/dL (9-16); C Reactive Protein 4.08 mg/dL (< or = 0.50); Carbon Dioxide 24 mmol/L (22-29); Chloride 109 mmol/L (96-108); Cholesterol 180 mg/dL (<200); Estimated Glomerular Filt Rate 50; Glucose Random 98 mg/dL (60-115); HDL Cholesterol 33 mg/dL (>40); LDL Cholesterol Calculated 120 mg/dL (<100); Magnesium 1.9 mg/dL (1.6-2.6); Potassium 4.1 mmol/L (3.3-5.1); Sodium 143 mmol/L (135-145); Total Protein 7.9 g/dL (6.5-8.0); Triglycerides 139 mg/dL (<150)
[2024-03-24 11:14] LABS: Free T4 (Free Thyroxine) 0.79 ng/dL (0.71-1.85); Thyroid Stimulating Hormone 1.87 uIU/mL (0.32-4.0)
[2024-03-24 11:17] LABS: Erythrocyte Sedimentation Rate 26 MM/HR (0-15)
[2024-03-24 11:23] LABS: Folate 6.2 ng/mL (> or = 4.0); Vitamin B12 446 pg/mL (200-900)
== END 2024-03-24 08:59 | disposition home or self-care (01) ==
LOC: HO.HMGCLDS 08:58
PROVIDERS: PCP Internal Medicine; Visit Provider Internal Medicine
DX: I10 Essential (primary) hypertension (principal); E78.00 Pure hypercholesterolemia, unspecified
CPT/HCPCS: 36415; 80053; 80061; 81001; 82607; 82746; 83735; 84439; 84443; 85025; 85652; 86140

== ENCOUNTER 2024-04-03 10:29 | Outpatient (AMB) | payer MEDICARE, SELFPAY ==
[2024-04-03 10:35] VITALS: BP 134/76; PULSE 72; O2SAT 92; BMI 30.3
--- NOTE | 2024-04-03 10:35 | MHC.OFFVIS ---
Vital Signs 04/03/24 10:35 Height 5 ft 6 in Weight 187 lb 9.814 oz BMI 30.3 BP 134/76 Blood Pressure Location Lt brachial Position Sitting Pulse 72 Pulse Source Pulse Oximeter Pulse Oximetry (%) 92 Oxygen Delivery Method Room Air Intake Visit Reasons: pyoderma Intake Note: Patient last seen by Doctor Kofi Horne on 12/01/23. Patient presents today for Pyodorma follow up. Accompanied by: Spouse Allergies heparin (porcine) Allergy (Severe, Verified 04/03/24 10:39) HIT Medication List - Last Reconciled 04/03/24 by Kofi Horne MD acetaminophen (Tylenol Extra Strength) 1,000 mg PO Q6H PRN albuterol sulfate 90 mcg/actuation (ProAir HFA) 2 puffs inhalation Q6H PRN amlodipine 2.5 mg PO DAILY azathioprine mg PO benfotiamine 300 mg PO ONCE duloxetine 20 mg PO BID 30 days fluticasone propionate 50 mcg/actuation (Flonase Allergy Relief) 2 sprays intranasal DAILY gabapentin 600 mg PO TID 30 days hydromorphone 2 mg PO BID-TID PRN 30 days metoprolol succinate ER 50 mg PO DAILY miscellaneous medical supply As directed mycophenolate mofetil 500 mg PO QAM naloxone 4 mg/actuation (Narcan) 4 mg intranasal Q2M PRN umeclidinium-vilanterol 62.5-25 mcg/actuation (Anoro Ellipta) 1 inh inhalation DAILY PRN HPI Comments Details: 78-year-old male with seronegative RA/Sjogren's (dry mouth +++Ro) and pyoderma gangrenosum returns for follow-up. Patient received Humira 40 mg every other week then 40 mg every week without much improvement. And he was switched to mycophenolate 500 mg a day without improvement. He was last seen by his air table operator Dr. Monzon about a month ago and at that time he was started on azathioprine 50 mg daily. Patient's left leg wound is getting larger. And he is starting to have new wounds in his right ankle. Initial history: This is a 76-year-old male with a past medical history of rheumatoid arthritis, Sjogren's, pyoderma gangrenosum, hypertension, bilateral PE who presents for evaluation of left lower extremity open wounds. Patient is originally from [place], moved to [place] in June of 2021. Patient stated that he was initially diagnosed with Sjogren's at the [facility] back in the due to dry eyes. He was eventually diagnosed with rheumatoid arthritis and he had been on Enbrel since the for many years. Enbrel was switched to reflect this for about 1 year but it was not effective. He was switched to Actemra in June of 2021 to bring down his inflammatory markers down. He received Actemra infusions for 2-3 months then moved to [place]. In [place] patient initially could not find a production cost estimator, he was eventually evaluated by Dari Good. Starting June of 2021 patient started having open left lower extremity wounds that were quite painful. He was admitted at the hospital in summer for evaluation of those wounds. 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 He was started on argatroban then switched to warfarin on discharge. Patient was evaluated by air table operator in [place] Dr. Godwin who started patient on Rinvoq 3-4 months ago. Tear they state that the smaller lower extremity wounds have closed and the large wound is not getting worse and might be getting somewhat better. With regards to his joint pain patient states he is about the same, he has stiffness of his hands worse on the right hand. He has bilateral hand contractures from many years of RA. 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 Acute pulmonary embolism with acute cor pulmonale Acute pulmonary embolism Cardiac arrest CKD (chronic kidney disease) stage 3, GFR 30-59 ml/min Sjogren's disease Leg pain, bilateral Elevated serum creatinine COPD (chronic obstructive pulmonary disease) HTN (hypertension) Rheumatoid arthritis Chronic ulcer of leg Surgical History History of ankle surgery History of hernia repair History of left knee replacement Family History Sister Breast cancer Father Aneurysm Mother Angina at rest Other No family history of coronary artery disease Social History Household Members: Spouse Housing: House Do you presently have visiting nurse or other home services: No Alcohol intake: current Alcohol intake frequency: holidays/special occasions only Comment: restraints Patient Tobacco Use Status: Former Tobacco user Tobacco use type: Cigarette Cigarette Packs Per Day: 1 Years Smoked: quit + years e-Cigarette/Vaping Use: Never Used Advance Directives Date on File: 12/23/21 service: Yes Current occupational status: retired Cognitive needs: Yes (cane) Hearing needs: No Vision needs: Yes (Pt wear glasses. ) Review of Systems Skin/Breast Reports non-healing lesions, Reports skin pain, Reports skin ulcer and Reports wounds Physical Exam Vital Signs: Last Vital Signs Pulse 72 04/03/24 10:35 BP 134/76 04/03/24 10:35 Pulse Ox 92 04/03/24 10:35 Oxygen Delivery Method Room Air 04/03/24 10:35 BMI result Body Mass Index 30.3 Const General: cooperative, healthy appearing and comfortable Nutritional Appearance: overweight Limitations: wheelchair HEENT Head: Yes normocephalic and Yes atraumatic Resp Effort & Inspection: normal respiratory effort and able to speak in complete sentences Extrem Other: Right hand RA deformities with ulnar deviation and synovial thickening of his MCPs. 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 Normal range of motion of elbows and shoulders There is no active synovitis Normal nailfold capillaroscopy Assessment & Plan Assessment & Plan (1) Pyoderma gangrenosum: Code(s): L88 - Pyoderma gangrenosum Category: Medical Plan: This is a 78-year-old male originally from [place], recently moved to [place] with past medical history of seronegative RA/Sjogren's (dry mouth +++Ro) diagnosed in the treated with Enbrel for at least 15 years years. Patient had right lower extremity wounds which were treated with Renflexis & prednisone with good results however he was having recurrent knee swelling. He was switched to Kevzara early 2021 with some improvement. Patient developed left lower extremity pyoderma gangrenosum. This started around June 2021. 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 He is currently on warfarin now switched to rivaroxaban by freelance digital project manager. This was discontinued months ago. Patient was started on Rinvoq by his air table operator Dr. Omar Cantor in [place], with little improvement, then dose was increased from 15 mg daily to 30 mg daily for a few months without significant improvement. A steroid tapering course was prescribed 6 months ago which provided temporary improvement. Patient took 3 doses of Renflexis and it was discontinued due to a reaction with joint pain. He was then started on Humira, he took Humira 40 mg every other week then advanced to 40 mg weekly without improvement. He then failed CellCept. His leg ulcers are getting worse, wounds are getting bigger and starting to have new ones on the right ankle. Reviewed records from patient's previous production cost estimator when he had the left knee synovitis, synovial fluid showed CPPD crystals consistent with pseudogout. My belief is Renflexis and prednisone was working well for rheumatoid arthritis and pyoderma gangrenosum, when patient was switched to Kevzara the pyoderma gangrenosum recurre Today we discussed IVIG. There has been some case series showing success in factory pyoderma gangrenosum. (PMID:?[id number]) Discussed risks and benefits of IVIG. Patient and agreed to proceed. Will start prior authorization for IVIG. There is some risk of thrombosis with IVIG especially given his history of HIT. I will reach out to patient's freelance digital project manager Dr. Powell to discuss whether patient will require anticoagulation. Labs before next visit in 3 months (2) Rheumatoid arthritis: Code(s): M06.9 - Rheumatoid arthritis, unspecified Category: Medical Qualifiers: Rheumatoid arthritis location: multiple sites Rheumatoid factor presence: without rheumatoid factor Qualified Code(s): M06.09 - Rheumatoid arthritis without rheumatoid factor, multiple sites Plan: Seronegative and deforming. Currently well controlled. Plan I spent 30 minutes reviewing patient's chart, evaluating patient, counseling patient & his and documenting in the chart Orders: Orders Erythrocyte Sedimentation Rate 3 Months M06.09 - Rheumatoid arthritis without rheumatoid factor, multiple sites Complete Blood Count Auto Diff 3 Months M06.09 - Rheumatoid arthritis without rheumatoid factor, multiple sites Comprehensive Met. Panel 3 Months M06.09 - Rheumatoid arthritis without rheumatoid factor, multiple sites C Reactive Protein 3 Months M06.09 - Rheumatoid arthritis without rheumatoid factor, multiple sites Referrals Infusion Center Notification L88 - Pyoderma gangrenosum Coding Level of Care Code Est Pt Level 4 (17866) Diagnoses Pyoderma gangrenosum L88 Rheumatoid arthritis of multiple sites with negative rheumatoid factor M06.09 Rheumatoid arthritis location: multiple sites Rheumatoid factor presence: without rheumatoid factor
== END 2024-04-03 11:22 | disposition home or self-care (01) ==
LOC: HO.RHE 10:29
PROVIDERS: PCP Internal Medicine; Visit Provider Student in an Organized Health Care Education/Training Program
DX: L88 Pyoderma gangrenosum (principal); M06.09 Rheumatoid arthritis without rheumatoid factor, multiple sites
CPT/HCPCS: 99214

== ENCOUNTER → 2024-04-03 10:29 | Outpatient (BNVA) | payer MEDICARE, SELFPAY | PROVIDERS: PCP Internal Medicine; Visit Provider Student in an Organized Health Care Education/Training Program | DX: L88 Pyoderma gangrenosum (principal); M06.09 Rheumatoid arthritis without rheumatoid factor, multiple sites | CPT/HCPCS: 99212 ==

== ENCOUNTER 2024-04-15 11:25 | Outpatient (REF) | payer MEDICARE, SELFPAY ==
[2024-04-15 12:50] LABS: MANUAL DIFF FLAG NO
[2024-04-15 12:56] LABS: Basophils Absolute Auto 0.1 X10*3/uL (0.0-0.2); Basophils Percent Auto 0.9 % (0-2); Eosinophils Absolute Auto 0.1 X10*3/uL (0.0-0.4); Eosinophils Percent Auto 1.8 % (0-4); Hematocrit 41.6 % (42.0-52.0); Hemoglobin 13.6 g/dl (14.0-18.0); Imm Gran Abs Auto 0.02 X10*3/uL (0.00-0.03); Imm Gran Pct Auto 0.4 % (0.0-0.4); Lymphocytes Absolute Auto 1.3 X10*3/uL (1.2-4.9); Mean Corpuscular HGB Conc 32.7 g/dl (31.0-36.0); Mean Corpuscular Hemoglobin 27.5 pg (27.0-33.0); Mean Platelet Volume 9.2 fL (9.4-12.4); Monocytes Absolute Auto 0.4 X10*3/uL (0.1-1.2); Monocytes Percent Auto 7.4 % (2-11); Neutrophils Absolute Auto 3.8 x10*3/uL (2.0-8.3); Neutrophils Percent Auto 66.5 % (45-73); Platelet Count 331 X10*3/uL (160-400); Red Blood Count 4.95 X10*6/uL (4.60-5.80); Red Cell Distribution Width 15.5 % (11.0-16.0); White Blood Count 5.7 X10*3/uL (4.8-10.8)
[2024-04-15 13:29] LABS: Alanine Aminotransferase 12 U/L (0-40); Albumin Level 4.1 g/dL (3.5-5.0); Alkaline Phosphatase 68 U/L (39-117); Aspartate Amino Transferase 13 U/L (5-37); Bilirubin Direct 0.2 mg/dL (0.0-0.5); Bilirubin Total 0.4 mg/dL (0.0-1.0); Total Protein 7.7 g/dL (6.5-8.0)
== END 2024-04-15 11:26 | disposition home or self-care (01) ==
LOC: HO.HMGCLDS 11:25
PROVIDERS: PCP Internal Medicine; Visit Provider Dermatology
DX: Z79.899 Other long term (current) drug therapy (principal)
CPT/HCPCS: 36415; 80076; 85025

== ENCOUNTER 2024-04-17 10:27 | Outpatient (AMB) | payer MEDICARE, SELFPAY ==
--- NOTE | 2024-04-17 10:32 | A.OFFVIS_ITS ---
Vital Signs 3 04/17/24 10:57 Height 5 ft 6 in Weight 186 lb BMI 30.0 BP 141/76 H Blood Pressure Location Lt brachial Position Sitting Pulse 79 Pulse Source Pulse Oximeter Pulse Oximetry (%) 98 Oxygen Delivery Method Room Air Intake Visit Reasons: Pill Count Intake Note: Sarath comes in today for a pill count to hydromorphone, patient should have 0 tablets and presents with 28 tablets which he last took yesterday 04/16/24. [employer] Required: No Accompanied by: Spouse Allergies heparin (porcine) Allergy (Severe, Verified 04/17/24 10:58) HIT HPI Comments Details: Patient presents today for a pill count. Patient is supposed to have #0 pills, in his possession has #28 pills. Reports pain due to increased wound drainage and cold weather. Patient takes hydromorphine mainly during wound care and dressing changes in clinic and home. Given increased wound drainage, his dressing changes are conducted daily by his and wound clinic. Patient reports mild to moderate analgesia with current medication regime. He continues to take gabapentin, duloxetine and Tylenol. Denies any fever, chills, weight loss, bleeding, weakness, dizziness, shortness of breaths, constipation, nausea, sedation, urinary retention or abdominal pain. [facility] Medical History MDD (major depressive disorder), single episode Pressure injury of buttock, stage 1 Deep vein thrombosis 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 Acute pulmonary embolism with acute cor pulmonale Acute pulmonary embolism Cardiac arrest CKD (chronic kidney disease) stage 3, GFR 30-59 ml/min Sjogren's disease Leg pain, bilateral Elevated serum creatinine COPD (chronic obstructive pulmonary disease) HTN (hypertension) Rheumatoid arthritis Chronic ulcer of leg Surgical History History of ankle surgery History of hernia repair History of left knee replacement Family History Sister Breast cancer Father Aneurysm Mother Angina at rest Other No family history of coronary artery disease Social History Household Members: Spouse Housing: House Do you presently have visiting nurse or other home services: No Alcohol intake: current Alcohol intake frequency: holidays/special occasions only Comment: restraints Patient Tobacco Use Status: Former Tobacco user Tobacco use type: Cigarette Cigarette Packs Per Day: 1 Years Smoked: quit + years e-Cigarette/Vaping Use: Never Used Advance Directives Date on File: 12/23/21 service: Yes Current occupational status: retired Cognitive needs: Yes (cane) Hearing needs: No Vision needs: Yes (Pt wear glasses. ) Review of Systems Const All systems reviewed & are unremarkable except as noted in HPI and below Physical Exam Vital Signs: Last Vital Signs Pulse 79 04/17/24 10:57 BP 141/76 H 04/17/24 10:57 Pulse Ox 98 04/17/24 10:57 Oxygen Delivery Method Room Air 04/17/24 10:57 BMI result Body Mass Index 30.0 General: Appears afebrile. Alert and oriented. Mood and affect appropriate. Follows and participates in conversation appropriately. Respiratory effort is unlabored. No cough. Sitting comfortably in the wheelchair. Difficulty standing on LLE due to increase in pain. Left lower leg dressed with dressing, dry and intact. Healing wounds RLE. Resp Effort & Inspection: normal respiratory effort, able to speak in complete sentences, no cough, no respiratory distress and No symmetric chest movement Extrem Other: Bilateral lower extremity wound pictures shared by patient's family Iphone 04/17/24 Left lower extremity: lower leg (Dressing dry and intact.) Psych Appearance: grossly normal and well kempt Mental Status: mental status grossly normal Speech and movement: Normal speech and movement present and Clear speech present Affect: normal affect Attitude: cooperative Thought process: Normal thought process present Thought content: Normal thought content present, suicidality (none), no hallucinations and Depressive thoughts present Insight: Good insight present (Psych) Judgement: Good judgement present (Psych) Results Reviewed Results Reviewed: Assessment & Plan Assessment & Plan (1) Peripheral neuropathy: Code(s): G62.9 - Polyneuropathy, unspecified Category: Medical (2) Chronic pain of left lower extremity: Code(s): M79.605 - Pain in left leg; G89.29 - Other chronic pain Category: Medical (3) Pyoderma gangrenosum: Code(s): L88 - Pyoderma gangrenosum Category: Medical (4) Chronic, continuous use of opioids: Code(s): F11.90 - Opioid use, unspecified, uncomplicated Category: Medical (5) Non-healing wound of left lower extremity: Code(s): S81.802A - Unspecified open wound, left lower leg, initial encounter Category: Medical Plan Patient has shown accountability for his medication regimen and the pill count was accurate. There is no evidence of misuse, abuse or diversion at this time. [facility] reviewed. Script for hydromorphine 2 mg bid-tid prn with advanced date of 04/30/24 for wound care/dressing changes and moderate-severe pain as needed. Continue duloxetine at pm, gabapentin 600 mg in am and 800 at pm and Tylenol prn. [facility]. All questions were answered and the patient is in agreement with the plan. Follow up in 4-5 weeks for a pill count or sooner if needed. Medications: Refilled 2 gabapentin 600 mg PO TID 90 tabs 0RF pain 30 days G62.9 - Polyneuropathy, unspecified, G89.29 - Other chronic pain, M79.605 - Pain in left leg hydromorphone Partial Fill upon patient request. 2 mg PO BID-TID PRN 60 tabs 0RF Pain, Moderate (Pain Scale 4-6 30 days F11.90 - Opioid use, unspecified, uncomplicated, G89.29 - Other chronic pain, L88 - Pyoderma gangrenosum, M79.605 - Pain in left leg Coding Level of Care Code Est Pt Level 4 (91860) Complex EM visit Add On G2211 Diagnoses Peripheral neuropathy G62.9 Chronic pain of left lower extremity M79.605; G89.29 Pyoderma gangrenosum L88 Chronic, continuous use of opioids F11.90 Non-healing wound of left lower extremity S81.802A
[2024-04-17 10:57] VITALS: BP 141/76; PULSE 79; O2SAT 98
== END 2024-04-17 10:58 | disposition home or self-care (01) ==
PROVIDERS: PCP Internal Medicine; Visit Provider Nurse Practitioner Family
DX: G62.9 Polyneuropathy, unspecified (principal); M79.605 Pain in left leg; G89.29 Other chronic pain; Z79.891 Long term (current) use of opiate analgesic; L88 Pyoderma gangrenosum; S81.802A Unspecified open wound, left lower leg, initial encounter
CPT/HCPCS: 99214; G2211

== ENCOUNTER → 2024-04-17 10:27 | Outpatient (BNVA) | payer MEDICARE, SELFPAY | PROVIDERS: PCP Internal Medicine; Visit Provider Nurse Practitioner Family | DX: G62.9 Polyneuropathy, unspecified (principal); M79.605 Pain in left leg; G89.29 Other chronic pain; L88 Pyoderma gangrenosum; S81.802A Unspecified open wound, left lower leg, initial encounter; X58.XXXA Exposure to other specified factors, initial encounter; Y93.9 Activity, unspecified; Y92.9 Unspecified place or not applicable; Y99.9 Unspecified external cause status; Z79.891 Long term (current) use of opiate analgesic | CPT/HCPCS: 99212 ==

== ENCOUNTER 2024-04-25 11:45 | Inpatient (IN) | payer MEDICARE, SELFPAY ==
[2024-04-25] VITALS (7 sets, daily range): BP systolic 111–141; BP diastolic 60–76; PULSE 84–96; RESP 18–22; TEMP 36.8–37.6; O2SAT 90–95; BMI 30.3
--- NOTE | ~2024-04-25 | XR_ITS ---
EXAMINATION: XR CHEST CLINICAL INFORMATION: Shortness of breath COMPARISON: CT chest 11/23/2023 TECHNIQUE: Frontal view of the chest was obtained. FINDINGS: Heart borderline in size with normal caliber pulmonary vessels. Minor atelectasis at the lung bases is likely due to poor inspiratory effort. Cardiac monitoring leads present. XR/XR chest 1V IMPRESSION: Poor inspiratory effort. Minor atelectasis noted. A follow-up PA and lateral would be helpful with deeper inspiration. Electronically signed by: Refugio Spivey MD 04/25/2024 01:45 PM EDT
--- NOTE | 2024-04-25 12:07 | ECG_ITS ---
Test Reason : sob Blood Pressure : / mmHG Vent. Rate : 086 BPM Atrial Rate : 086 BPM P-R Int : 162 ms QRS Dur : 082 ms QT Int : 382 ms P-R-T Axes : 034 011 068 degrees QTc Int : 457 ms Normal sinus rhythm with sinus arrhythmia Nonspecific ST abnormality Abnormal ECG When compared with ECG of 14-JAN-2022 14:02, Premature ventricular complexes are no longer Present Referred By: Laureen Polk Electronically Signed By:SALLIE HURLEY
--- NOTE | 2024-04-25 12:12 | ED_ITS ---
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 He states he has been coughing more than usual, bringing up phlegm and very weak. His helps provide history who cares for him at home. She reports he has had chills and had a fever of 101 last night. He has been using his nebulizer at home with little improvement. No chest pain, abdominal pain, N/V/D. He did have one episode of loose BM today with blood in the toilet bowel and when he wiped. No associated pain. He is not on anticoagulation. No recurrent bleeding episodes. Patient found to be hypoxic to 89% for EMS, placed on 2L NC with improvement in O2 saturation to 95% MD elicited complaint: shortness of breath and cough Pertinent past history: COPD Onset (ago): day(s) Context: recent illness Timing: progressively worsening Severity: moderate Exacerbating factors: coughing Relieving factors: rest and bronchodilators Known history of: COPD Associated symptoms: cough, wheezing, sputum production and lower extremity pain Treatment prior to arrival: oxygen and bronchodilator Related Data Home oxygen amount: none Home Medications ?Medication ?Instructions ?Recorded ?Confirmed acetaminophen 500 mg tablet 1,000 mg PO Q6H PRN Pain (Scale 10/30/21 03/20/24 (Tylenol Extra Strength) Score 1-3) benfotiamine 150 mg capsule 300 mg PO ONCE peripheral 01/25/24 03/20/24 neuropathy azathioprine 50 mg tablet mg PO 04/03/24 Previous Rx's ?Medication ?Instructions ?Recorded naloxone 4 mg/actuation nasal 4 mg intranasal Q2M PRN opioid 07/20/22 spray (Narcan) overdose #2 ea fluticasone propionate 50 2 spray intranasal DAILY #16 grams 07/23/22 mcg/actuation nasal spray,suspension (Flonase Allergy Relief) albuterol sulfate 90 mcg/actuation 2 puff inhalation Q6H PRN 08/02/23 aerosol inhaler (ProAir HFA) Shortness Of Breath #6.7 grams miscellaneous medical supply #1 ea 08/13/23 duloxetine 20 mg capsule,delayed 20 mg PO BID pain 30 days #60 caps 11/08/23 release umeclidinium 62.5 mcg-vilanterol 1 inh inhalation DAILY PRN 01/31/24 25 mcg/actuation powdr for Shortness Of Breath #60 ea inhalation (Anoro Ellipta) metoprolol succinate 50 mg 50 mg PO DAILY #90 tabs 04/06/24 tablet,extended release 24 hr gabapentin 600 mg tablet 600 mg PO TID pain 30 days #90 tabs 04/17/24 hydromorphone 2 mg tablet 2 mg PO BID-TID PRN Pain, Moderate 04/17/24 (Pain Scale 4-6 30 days #60 tabs amlodipine 2.5 mg tablet 2.5 mg PO DAILY #90 tabs 04/21/24 Allergies Allergy/AdvReac Type Severity Reaction Status Date / Time heparin (porcine) Allergy Severe HIT Verified 04/25/24 11:59 Review of Systems 2 Review of Systems: Yes all other systems are reviewed and are negative [facility] Past Medical History Medical History MDD (major depressive disorder), single episode Pressure injury of buttock, stage 1 Deep vein thrombosis 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 Acute pulmonary embolism with acute cor pulmonale Acute pulmonary embolism Cardiac arrest CKD (chronic kidney disease) stage 3, GFR 30-59 ml/min Sjogren's disease Leg pain, bilateral Elevated serum creatinine COPD (chronic obstructive pulmonary disease) HTN (hypertension) Rheumatoid arthritis Chronic ulcer of leg Surgical History History of ankle surgery History of hernia repair History of left knee replacement Family History Family History Sister Breast cancer Father Aneurysm Mother Angina at rest Other No family history of coronary artery disease Social History Social History Household Members: Spouse Housing: House Do you presently have visiting nurse or other home services: No Alcohol intake: current Alcohol intake frequency: holidays/special occasions only Comment: restraints Patient Tobacco Use Status: Former Tobacco user Tobacco use type: Cigarette Cigarette Packs Per Day: 1 Years Smoked: quit 2018/ + years Smoked in Last 30 Days: No e-Cigarette/Vaping Use: Never Used Use of substances other than those prescribed or required for medical reasons: No Advance Directives: No Advance Directives Information Provided: Yes Advance Directives Date on File: 12/23/21 Do you have a plan to hurt others: No Plan service: Yes Current occupational status: retired Cognitive needs: Yes (cane) Hearing needs: No Vision needs: Yes (Pt wear glasses. ) Physical Exam 2 Vital Signs: Vital Signs: Last Vital Signs Temp 98.3 F 04/25/24 12:04 Pulse 84 04/25/24 15:00 Resp 22 H 04/25/24 15:00 BP 111/60 04/25/24 15:00 Pulse Ox 94 04/25/24 12:04 O2 Del Method Nasal Cannula 04/25/24 12:04 Oxygen Flow Rate 2 04/25/24 11:55 BMI result Body Mass Index 30.3 Appearance: Alert. Oriented X3. Mild acute distress, RR low 20s Head: normocephalic, atraumatic. Eyes: Pupils equal, round and reactive to light. ENT: Pharynx normal. No tonsillar swelling or exudate. Neck: Normal inspection. Neck supple. CVS: Normal heart rate and rhythm. Pulses normal. Respiratory: Mild respiratory distress. Breath sounds with diffuse inspiratory and expiratory wheezing. speaking in complete sentences Abdomen: Soft and nontender. +BS x4 Skin: Skin warm and dry. Normal skin color. Normal skin turgor. No rashes. Extremities: trace LE peripheral edema. LLE with clean/dry/ dressing in place of the lower leg. tender top of the foot. Neuro/psych: Oriented X 3. No motor deficit. No sensory deficit. CN II-XII intact. Normal speech and cognition. Medications Administered Generic Name Dose Route Start Last Admin Trade Name Freq PRN Reason Stop Dose Admin Doxycycline Hyclate 100 mg/ 250 mls @ 166.67 mls/hr 04/25/24 13:56 04/25/24 14:59 Sodium Chloride IV 04/25/24 15:25 166.67 mls/hr ONCE ONE Administration Discontinued Medications Generic Name Dose Route Start Last Admin Trade Name Andreas PRN Reason Stop Dose Admin Albuterol Sulfate 2.5 mg/ 0 mg 04/25/24 12:32 04/25/24 12:35 Albuterol/Ipratropium 3 ml INHALE 04/25/24 12:33 1 dose ONCE ONE Administration Lactated Ringer's 1,000 mls @ 999 mls/hr 04/25/24 13:15 04/25/24 14:29 Lr IV 04/25/24 14:15 999 mls/hr .Q1H1M PETER Administration Methylprednisolone Sodium Succinate 40 mg 04/25/24 13:07 04/25/24 14:29 Methylprednisolone Sod Succ 40 Mg/Ml Vial IVPUSH 04/25/24 13:08 40 mg ONCE ONE Administration Medical Decision Making Medical Decision Making MDM Narrative: 78 yo wheelchair bound male with history of COPD, HTN, Sjogren syndrome, hx HIT, hx PE, CKD, psoriatic arthritis, 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 His LLE wound is followed by the Wound clinic and dressings are done by his daily. No reports of new drainage or swelling. Patient found to be hypoxic to 89% for EMS, placed on 2L NC with improvement in SPO2 to low 90s. Wheezing on arrival with no significant resp distress. no lethargy to suggest hypercarbia. ED bronch protocol ordered along with IV steroids. CXR w/ poor inspiratory effort but no obvious PNA. His LLE wound is dressed - per his he has a specific wound care dressing that is needed and she would like to bring in supplies from home. doubt this is the cause of his symptoms/fever given resp complaints and hypoxia IV doxycycline ordered for COPD exacerbation. lactic acid 2.7. no other signs of sepsis. no leukocytosis, tachycardia or fever. 1L IVF given for mild DEACON will plan to admit for further management. patient and updated on plan of care Differential Diagnosis Differential Diagnoses: The differential diagnosis associated with the presentation includes COPD exacerbation, PNA, viral PNA/bronchitis, metabolic derangement, dehydration Admission/Observation Consideration of admission/observation: Escalation of care including admission/observation considered Consult Healthcare Provider Management of the patient was discussed with: Hospitalist Lab Data MDM Lab Attestation statement: I reviewed the patient's lab results. mild anemia, mild DEACON on CKD 04/25/24 12:26 04/25/24 12:26 Labs: Lab Results 04/25/24 04/25/24 Range/Units 12:26 13:34 WBC 6.4 (4.8-10.8) X10*3/uL RBC 4.95 (4.60-5.80) X10*6/uL Hgb 13.1 L (14.0-18.0) g/dl Hct 40.1 L (42.0-52.0) % MCV 81.0 (80.0-98.0) fL MCH 26.5 L (27.0-33.0) pg MCHC 32.7 (31.0-36.0) g/dl RDW 15.9 (11.0-16.0) % Plt Count 262 (160-400) X10*3/uL MPV 9.1 L (9.4-12.4) fL Immature Gran % (Auto) 0.3 (0.0-0.4) % Neut % (Auto) 75.5 H (45-73) % Lymph % (Auto) 14.0 L (20-40) % [place] % (Auto) 8.1 (2-11) % Eos % (Auto) 1.6 (0-4) % Baso % (Auto) 0.5 (0-2) % Lymph # (Auto) 0.9 L (1.2-4.9) X10*3/uL [place] # (Auto) 0.5 (0.1-1.2) X10*3/uL Eos # (Auto) 0.1 (0.0-0.4) X10*3/uL Baso # (Auto) 0.0 (0.0-0.2) X10*3/uL Abs Immat Gran (auto) 0.02 (0.00-0.03) X10*3/uL Absolute Neuts (auto) 4.9 (2.0-8.3) x10*3/uL Absolute Nucleated RBC 0.000 (0.0-0.012) X10*3/uL Nucleated RBC % (auto) 0.0 (0.0-0.2) /100WBC PT 15.0 H (10.9-12.4) SEC INR 1.3 H (0.9-1.1) APTT 34.1 (26.0-36.8) SEC Sodium 138 (135-145) mmol/L Potassium 4.5 (3.3-5.1) mmol/L Chloride 105 (96-108) mmol/L Carbon Dioxide 23 (22-29) mmol/L Anion Gap 15 (12-20) BUN 19 H (9-16) mg/dL Creatinine 1.61 H (0.5-1.4) mg/dL Estim Creat Clear Calc 38.7 Estimated GFR 42 Random Glucose 91 (60-115) mg/dL Lactic Acid 2.7 H* (0.5-2.0) mmol/L Calcium 9.8 (8.4-10.2) mg/dL Magnesium 2.1 (1.6-2.6) mg/dL Total Bilirubin 0.5 (0.0-1.0) mg/dL Direct Bilirubin 0.3 (0.0-0.5) mg/dL AST 23 (5-37) U/L ALT 23 (0-40) U/L Alkaline Phosphatase 81 (39-117) U/L Troponin I High Sens 7.8 (<3.5-35.0) ng/L B-Natriuretic Peptide 123 H (<100) pg/mL Total Protein 7.5 (6.5-8.0) g/dL Albumin 3.8 (3.5-5.0) g/dL Influenza Type A (PCR) NEGATIVE (Negative) Influenza Type B (PCR) NEGATIVE (Negative) RSV RNA Qual (PCR) NEGATIVE (Negative) SARS-CoV-2 RNA (RT-PCR) NEGATIVE (Negative) Independent Interpretation I performed an independent interpretation of an: EKG and Plain X-Ray Interpretation: ekg with normal sinus rhythm, sinus arrythmia, HR 86 bpm, no ST segment elevations or depressions cxr with poor inspiratory effort, no overt PNA or vasc congestion Radiology Impression Discussion of test interpretation with radiology: I have reviewed the radiologist's reading. Independent Historian Clinical information obtained from an independent historian. History obtained from or confirmed by: Spouse and EMS External Record Review External record reviewed: Inpatient record, Outpatient record and Prior outpatient labs Tests considered The following testing was considered but not selected: CT chest considered Prescription Management I considered prescription management with: Pain Medication and Antibiotic Chronic Conditions Patient?s care impacted by: Other (COPD) Social Determinants Patient?s care significantly limited by Social Determinants of Health including: Other Social Determinant of Health Critical Care Time Critical Care Time Critical Care Time: Yes Total Critical Care Time: 41 Attestation: I have personally provided critical care time exclusive of time spent on separately billable procedures. Time includes review of lab data, radiology results, discussion with consultants, and monitoring for potential decompensation. Intervention performed as documented. Discharge Plan Discharge Clinical Impression: Acute exacerbation of chronic obstructive pulmonary disease Patient Disposition: Admitted As Inpatient Print Language: [place]
--- NOTE | 2024-04-25 12:14 | PC.NURSE ---
Pt comes to ED today for c/o increased SOB and weakness. Reports symptoms started on 04/21/24, Pt reports he has been unable to get out of his wheelchair. Pt also complains of 8/10 pain to a wound to L ankle. States wound is chronic x2 years with unknown origin. VSS and afebrile. Provider at bedside and EKG in process.
[2024-04-25 12:32] LABS: MANUAL DIFF FLAG NO
[2024-04-25 12:35] LABS: Basophils Percent Auto 0.5 % (0-2); Eosinophils Absolute Auto 0.1 X10*3/uL (0.0-0.4); Eosinophils Percent Auto 1.6 % (0-4); Hematocrit 40.1 % (42.0-52.0); Hemoglobin 13.1 g/dl (14.0-18.0); Imm Gran Abs Auto 0.02 X10*3/uL (0.00-0.03); Imm Gran Pct Auto 0.3 % (0.0-0.4); Lymphocytes Absolute Auto 0.9 X10*3/uL (1.2-4.9); Mean Corpuscular HGB Conc 32.7 g/dl (31.0-36.0); Mean Corpuscular Hemoglobin 26.5 pg (27.0-33.0); Mean Platelet Volume 9.1 fL (9.4-12.4); Monocytes Absolute Auto 0.5 X10*3/uL (0.1-1.2); Monocytes Percent Auto 8.1 % (2-11); Neutrophils Absolute Auto 4.9 x10*3/uL (2.0-8.3); Neutrophils Percent Auto 75.5 % (45-73); Platelet Count 262 X10*3/uL (160-400); Red Blood Count 4.95 X10*6/uL (4.60-5.80); Red Cell Distribution Width 15.9 % (11.0-16.0); White Blood Count 6.4 X10*3/uL (4.8-10.8)
[2024-04-25] MEDS: Albuterol Sulfate 2.5 MG, Albuterol/Iprat 2.5/0.5MG 3 ML 3 ML INHALE (12:35)
[2024-04-25 12:47] LABS: INTERNATIONAL NORM RATIO 1.3 (0.9-1.1)
[2024-04-25 12:49] LABS: Alanine Aminotransferase 23 U/L (0-40); Albumin Level 3.8 g/dL (3.5-5.0); Alkaline Phosphatase 81 U/L (39-117); Anion Gap 15 (12-20); Aspartate Amino Transferase 23 U/L (5-37); Bilirubin Direct 0.3 mg/dL (0.0-0.5); Bilirubin Total 0.5 mg/dL (0.0-1.0); Blood Urea Nitrogen 19 mg/dL (9-16); Calcium 9.8 mg/dL (8.4-10.2); Carbon Dioxide 23 mmol/L (22-29); Chloride 105 mmol/L (96-108); Creatinine Clr Calc Pharmacy 38.7; Estimated Glomerular Filt Rate 42; Glucose Random 91 mg/dL (60-115); Magnesium 2.1 mg/dL (1.6-2.6); Potassium 4.5 mmol/L (3.3-5.1); Sodium 138 mmol/L (135-145); Total Protein 7.5 g/dL (6.5-8.0)
[2024-04-25 12:50] LABS: Partial Thromboplastin Time 34.1 SEC (26.0-36.8)
[2024-04-25 12:54] LABS: Troponin-I High Sensitivity 7.8 ng/L (<3.5-35.0)
[2024-04-25 12:55] LABS: B Type Natriuretic Peptide 123 pg/mL (<100)
[2024-04-25 14:05] LABS: Lactic Acid 2.7 mmol/L (0.5-2.0)
[2024-04-25] MEDS: methylPREDNISolone Sod Succ 40 MG/ML VIAL IVPUSH (14:29)
[2024-04-25] MEDS: Lactated Ringers 1,000 ML 999 ML IV (14:29)
[2024-04-25 14:30] LABS: Influenza A PCR NEGATIVE (Negative); Influenza B PCR NEGATIVE (Negative); Resp Syncy Virus RNA Qual PCR NEGATIVE (Negative); SARS COV2 PCR INHOUSE NEGATIVE (Negative)
[2024-04-25] MEDS: Doxycycline Hyclate 100 MG in 0.9 % Sodium Chloride 250 ML 166.67 MG IV ×2 (14:59→21:23)
--- NOTE | 2024-04-25 15:23 | PHA.MEDREC ---
Addendum entered by Rola Hilliard [facility] 04/25/24 16:12: Reviewed by [facility] Addendum entered by Terell Godinez 04/25/24 16:10: Patient also state they were suppose to see Dr. Cantor today but couldn't because of coming in today. Addendum entered by Terell Godinez 04/25/24 16:05: Went back to speak to about Mycophenolate 500mg tab and she was not 100% sure and didn't remember the medication even after looking at a photo, but stated that if it was prescribed by Dr. Cantor it has been discontinued. Looking in claims it was written 03/[address] Cantor. Original Note: Pharmacy Consult ? Medication Reconciliation Pharmacy has completed the medication reconciliation. Spoke to patient at bedside and she confirmed all his medications. She confirmed he is not taking the Azathioprine 50mg tab anymore per his Dr as of last month due to him developing a reaction to the medication. She's also been giving her his Duloxtine 20mg capsule at bedtime and has been doing it like that for a few months . The patient stated he has been using his Fluticasone 50mg nasal spray only as needed for allergies. His confirmed he is taking a Gabapentin 600mg tab once in the morning and at bedtime she give him a Gabapentin 800mg tab that she has an old script she has herself at bedtime. The patient and stated he is taking the Hydromorphone 2mg tab only when absolutely needed after changing his wound bandaging and he last took that last 04/20. I also asked about Humira and the confirmed the Dr had stopped that last month. The patient states she alternates between giving 2 Tylenol 500mg tabs and 2 Ibuprofen 200mg tabs daily as needed for pain. The patient states they still have Naloxone 4mg spray at home as needed and has not had to use it. The patient confirmed he is still using the Albuterol inhaler and Anoro inhaler as needed. The patient confirmed he took his Gabapetin 600mg tab and Metoprolol 50mg this morning.
[2024-04-25 15:40] LABS: Reflex Lactate? Lactic Acid Added
--- NOTE | 2024-04-25 15:45 | PM.IMHP ---
History of Present Illness Date of Service: 04/25/24 Attending physician on admission: [facility] Chief Complaint: SOB, fever, weakness 78-year-old male with a past medical history significant for COPD, hypertension, Sjogren's, HIT, PE, CKD, psoriatic arthritis, and pyoderma gangrenosum (not currently on medication but has used many biologics in the past, most recently on azothiaprine), who presented to the ED today with worsening shortness of breath, productive cough with green sputum, weakness and fever. His reports a temp of 101 degrees last night. His fever has been waxing and waning. He has also had some diarrhea and nausea but no vomiting. He denies any recent antibiotics or travel. He also reports chills and rigors today. He will have an occasional headache. Runny nose has improved. Review of Systems Constitutional: Constitutional: Reports chills, Reports fatigue, Reports fever(s) and Reports headache(s) Eyes: Eyes: Denies change in vision and Denies diplopia ENT: Reports headache(s), Reports nasal discharge and Denies sore throat Cardiovascular: Cardiovascular: Reports as per HPI, Denies leg edema, Denies lightheadedness and Reports dyspnea Respiratory: Respiratory: Reports cough and Reports dyspnea Gastrointestinal: Gastrointestinal: Denies melena, Denies constipation, Reports diarrhea, Reports nausea and Denies vomiting Genitourinary: Genitourinary: Denies dysuria and Denies urinary urgency Integumentary/Breasts: Comments: Wound left lower extremity followed by wound care Neurologic: Reports headache(s) Endocrine: Endocrine: Reports fatigue [facility] Medical History MDD (major depressive disorder), single episode Pressure injury of buttock, stage 1 Deep vein thrombosis 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 Acute pulmonary embolism with acute cor pulmonale Acute pulmonary embolism Cardiac arrest CKD (chronic kidney disease) stage 3, GFR 30-59 ml/min Sjogren's disease Leg pain, bilateral Elevated serum creatinine COPD (chronic obstructive pulmonary disease) HTN (hypertension) Rheumatoid arthritis Chronic ulcer of leg Family History Sister Breast cancer Father Aneurysm Mother Angina at rest Other No family history of coronary artery disease Surgical History History of ankle surgery History of hernia repair History of left knee replacement Social History Household Members: Spouse Housing: House Do you presently have visiting nurse or other home services: No Alcohol intake: current Alcohol intake frequency: holidays/special occasions only Comment: restraints Patient Tobacco Use Status: Former Tobacco user Tobacco use type: Cigarette Cigarette Packs Per Day: 1 Years Smoked: quit + years Smoked in Last 30 Days: No e-Cigarette/Vaping Use: Never Used Use of substances other than those prescribed or required for medical reasons: No Advance Directives: No Advance Directives Information Provided: Yes Advance Directives Date on File: 12/23/21 Do you have a plan to hurt others: No Plan service: Yes Current occupational status: retired Cognitive needs: Yes (cane) Hearing needs: No Vision needs: Yes (Pt wear glasses. 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 Verified 04/25/24 11:59 Active Medications: Current Medications Acetaminophen (Acetaminophen 325 Mg Tablet) 650 mg PO Q6H PRN PRN Reason: Pain, Mild (Pain Scale 1-3), fever or headache Albuterol/Ipratropium (Albuterol/Iprat 2.5/0.5mg 3 Ml Ampul.Neb) 3 ml INHALE RQ4H WHILE AWAKE PETER Calcium Carbonate (Calcium Carbonate 750 Mg Tab.Chew) 750 mg PO Q4H PRN PRN Reason: Heartburn Albuterol Sulfate 2.5 mg/ (Albuterol/Ipratropium 3 ml) 0 mg INHALE Q2H PRN PRN Reason: Shortness of Breath/Wheezing Doxycycline Hyclate 100 mg/ (Sodium Chloride) 250 mls @ 166.67 mls/hr IV BID PETER Magnesium Hydroxide (Milk Of Magnesia 30 Ml Oral.Susp) 30 ml PO DAILY PRN PRN Reason: Constipation Melatonin (Melatonin 3 Mg Tablet) 6 mg PO BEDTIME PRN PRN Reason: Insomnia Ondansetron HCl (Ondansetron Hcl 4 Mg/2 Ml Vial) 4 mg IVPUSH Q8H PRN PRN Reason: Nausea and Vomiting Rivaroxaban (Rivaroxaban 10 Mg Tablet) 10 mg PO DAILY [facility] Sodium Chloride (0.9 % Sodium Chloride Flush 3 Ml Syringe) 3 ml IVFLUSH QSHIFT [facility] Home Medications ?Medication ?Instructions ?Recorded ?Confirmed ?Last Taken ?Type acetaminophen 500 mg tablet 1,000 mg PO Q6H PRN Pain (Scale 10/30/21 04/25/24 12/22/21 History (Tylenol Extra Strength) Score 1-3) albuterol sulfate 90 mcg/actuation 2 puff inhalation Q6H PRN dyspnea 04/25/24 04/25/24 Unknown History aerosol inhaler duloxetine 20 mg capsule,delayed 20 mg PO BEDTIME pain 04/25/24 04/25/24 04/24/24 History release fluticasone propionate 50 2 spray intranasal DAILY PRN 04/25/24 04/25/24 Unknown History mcg/actuation nasal allergies spray,suspension (Flonase Allergy Relief) gabapentin 600 mg tablet 600 mg PO DAILY pain 04/25/24 04/25/24 04/24/24 History gabapentin 800 mg tablet 800 mg PO BEDTIME 04/25/24 04/25/24 04/24/24 History hydromorphone 2 mg tablet 2 mg PO DAILY PRN Pain, Moderate 04/25/24 04/25/24 04/20/24 History (Pain Scale 4-6 ibuprofen 200 mg tablet 400 mg PO DAILY PRN Pain 04/25/24 04/25/24 Unknown History Physical Exam Vital Signs and Narrative: Vital Signs: Last Vital Signs Temp 98.3 F 04/25/24 12:04 Pulse 84 04/25/24 15:00 Resp 22 H 04/25/24 15:00 BP 111/60 04/25/24 15:00 Pulse Ox 94 04/25/24 12:04 O2 Del Method Nasal Cannula 04/25/24 12:04 Oxygen Flow Rate 2 04/25/24 11:55 BMI result Body Mass Index 30.3 General: AOx3, no acute distress Resp: CTA bilaterally, no wheezing CVS: S1, S2, RRR GI: +BS, NT, no distention Skin: Warm, dry, dressing on LLE, chronic venous stasis bilaterally Extremities: No edema Psych: Appropriate affect Results Labs 04/25/24 12:26 04/25/24 12:26 Labs: Laboratory Results - last 24 hr 04/25/24 04/25/24 12:26 13:34 MCV 81.0 MCH 26.5 L MCHC 32.7 RDW 15.9 Plt Count 262 MPV 9.1 L Immature Gran % (Auto) 0.3 Neut % (Auto) 75.5 H Lymph % (Auto) 14.0 L [place] % (Auto) 8.1 Eos % (Auto) 1.6 Baso % (Auto) 0.5 Lymph # (Auto) 0.9 L [place] # (Auto) 0.5 Eos # (Auto) 0.1 Baso # (Auto) 0.0 Abs Immat Gran (auto) 0.02 Absolute Neuts (auto) 4.9 Absolute Nucleated RBC 0.000 Nucleated RBC % (auto) 0.0 PT 15.0 H INR 1.3 H APTT 34.1 Anion Gap 15 Estim Creat Clear Calc 38.7 Estimated GFR 42 Random Glucose 91 Lactic Acid 2.7 H* Calcium 9.8 Magnesium 2.1 Total Bilirubin 0.5 Direct Bilirubin 0.3 AST 23 ALT 23 Alkaline Phosphatase 81 Troponin I High Sens 7.8 B-Natriuretic Peptide 123 H Total Protein 7.5 Albumin 3.8 Influenza Type A (PCR) NEGATIVE Influenza Type B (PCR) NEGATIVE RSV RNA Qual (PCR) NEGATIVE SARS-CoV-2 RNA (RT-PCR) NEGATIVE Imaging Radiologist's Impressions: Impressions Chest X-Ray 04/25/24 12:18 IMPRESSION: Poor inspiratory effort. Minor atelectasis noted. A follow-up PA and lateral would be helpful with deeper inspiration. Electronically signed by: Refugio Spivey MD 04/25/2024 01:45 PM EDT Assessment and Plan (1) Acute exacerbation of chronic obstructive pulmonary disease: Status: Acute (2) Chronic ulcer of leg: Status: Acute Plan 78-year-old male with a past medical history significant for COPD, hypertension, Sjogren's, HIT, PE, CKD, psoriatic arthritis, and pyoderma gangrenosum (not currently on medication but has used many biologics in the past, most recently on azothiaprine), who presented to the ED today for COPD exacerbation. COPD exacerbation - new O2 requirement - CXR without PNA - no leukocytosis - COVID/RSV/flu negative - check resp panel - monitor CBC, BMP - continue duonebs, solumedrol and doxycycline LLE wound due to pyoderma gangrenosum - wound care consult - no significant warmth or surrounding erythema suggesting cellulitis mild DEACON on CKD - given 1 L fluids - monitor BMP HTN - continue amlodipine and metoprolol full code VTE prophy: xarelto due to hx of HIT and LLE wound Pt with COPD exacerbation with new O2 requirement who will need admission for at least 2 midnights stay for IV steroids and breathing treatments. Quality Stroke Does the patient have a stroke diagnosis?: No VTE Prior VTE?: Yes VTE Risk Level:: Medical - moderate - high VTE Device Contraindication: Procedure Contraindicated VTE Drug Contraindication: N/A - Med Ordered
[2024-04-25] MEDS: Albuterol/Iprat 2.5/0.5MG 3 ML AMPUL.NEB INHALE ×2 (16:22→19:44)
[2024-04-25 16:47] LABS: Appearance Urine Cloudy; Color Urine Dark Yellow; Glucose Urine UA Negative (Negative); Leukocyte Esterase Urine Small (1+) (Negative); Nitrite Urine Negative (Negative); PH 5.5 (5.0-9.0); Specific Gravity - Urine >= 1.030 (1.005-1.025); UMIC TRIGGER UACC YES; Urine Blood Negative (Negative); Urine Ketones 15 mg/dL (Negative); Urine Protein 100 (2+) mg/dL (Neg-Trace)
[2024-04-25 16:51] LABS: ~Lactic Acid-LAB USE ONLY 2.9 mmol/L (0.5-2.0)
[2024-04-25 17:07] LABS: Bacteria Urine None Seen (None Seen); RBC Urine 0-2 /HPF (0-2); UACC Culture Trigger YES
[2024-04-25 18:27] LABS: Reflex Lactate? 2 Y
[2024-04-25 19:37] LABS: ~Lactic Acid-LAB USE ONLY 2.1 mmol/L (0.5-2.0)
[2024-04-25 20:46] LABS: Cancel Lactic Acid Canceled
[2024-04-25] MEDS: DULoxetine HCl 20 MG CAPSULE.DR PO (21:21)
[2024-04-25] MEDS: Gabapentin 400 MG CAPSULE 800 MG PO (21:21)
[2024-04-25] MEDS: 0.9 % Sodium Chloride Flush 3 ML SYRINGE IVFLUSH (23:21)
[2024-04-26] VITALS (9 sets, daily range): BP systolic 129–160; BP diastolic 71–85; PULSE 81–93; RESP 16–20; TEMP 36.2–37.1; O2SAT 90–93
[2024-04-26 06:58] LABS: MANUAL DIFF FLAG NO
[2024-04-26 07:08] LABS: Basophils Percent Auto 0.2 % (0-2); Hemoglobin 11.8 g/dl (14.0-18.0); Imm Gran Abs Auto 0.03 X10*3/uL (0.00-0.03); Imm Gran Pct Auto 0.5 % (0.0-0.4); Lymphocytes Absolute Auto 0.7 X10*3/uL (1.2-4.9); Lymphocytes Percent Auto 11.4 % (20-40); Mean Corpuscular HGB Conc 31.9 g/dl (31.0-36.0); Mean Corpuscular Hemoglobin 25.9 pg (27.0-33.0); Mean Corpuscular Volume 81.3 fL (80.0-98.0); Mean Platelet Volume 9.5 fL (9.4-12.4); Monocytes Absolute Auto 0.4 X10*3/uL (0.1-1.2); Monocytes Percent Auto 5.9 % (2-11); Neutrophils Absolute Auto 5.3 x10*3/uL (2.0-8.3); Platelet Count 303 X10*3/uL (160-400); Red Blood Count 4.55 X10*6/uL (4.60-5.80); Red Cell Distribution Width 15.9 % (11.0-16.0); White Blood Count 6.5 X10*3/uL (4.8-10.8)
[2024-04-26 07:21] LABS: Anion Gap 14 (12-20); Blood Urea Nitrogen 18 mg/dL (9-16); Calcium 9.6 mg/dL (8.4-10.2); Carbon Dioxide 23 mmol/L (22-29); Chloride 107 mmol/L (96-108); Creatinine Clr Calc Pharmacy 51.4; Estimated Glomerular Filt Rate 58; Glucose Random 122 mg/dL (60-115); Potassium 4.3 mmol/L (3.3-5.1); Sodium 140 mmol/L (135-145)
[2024-04-26] MEDS: Albuterol/Iprat 2.5/0.5MG 3 ML AMPUL.NEB INHALE ×4 (07:46→19:54)
[2024-04-26] MEDS: Doxycycline Hyclate 100 MG in 0.9 % Sodium Chloride 250 ML 166.67 MG IV ×2 (07:51→21:09)
[2024-04-26] MEDS: methylPREDNISolone Sod Succ 40 MG/ML VIAL IVPUSH ×2 (07:52→21:05)
[2024-04-26] MEDS: HYDROmorphone HCl 2 MG TABLET PO (07:52)
[2024-04-26] MEDS: Gabapentin 600 MG TABLET PO (07:52)
[2024-04-26] MEDS: amLODIPine Besylate 2.5 MG TABLET PO (07:53)
[2024-04-26] MEDS: Metoprolol Succinate ER 50 MG TAB.ER.24H PO (07:53)
--- NOTE | 2024-04-26 10:43 | MHC.CM.PN ---
IMM DELIVERED CM MET WITH PT AND SPOUSE AT BEDSIDE. PT LIVES WITH SPOUSE WHO ASSIST HIM WITH HIS DAILY FOOT DRESSING. PT USES W/C FOR MAJOR MOBILITY, IS ABLE TO SELF TRANSFER WITH [facility]. PT ATTENDS [facility]. NO VNA SERVICES AT THIS TIME. + HCP ON FILE. PCP DR. XIE DP: HOME WITH RESUMPTION OF WOUND CLINIC, POSSIBLE VNA IF RECOMMENDED. PT/ FIRST CHOICE [facility]. SPOUSE WILL TRANSPORT. CM WILL CONTINUE TO FOLLOW FOR ANY CHANGE TO DC PLAN/NEEDS.
--- NOTE | 2024-04-26 11:52 | P.PNIM_ITS ---
Subjective Subjective Date of Service: 04/26/24 Interval History: feeling better. still congested with mild SOB and dyspnea. improvement with duonebs and steroids. still using O2. no chest pain, nausea, vomiting, abd pain or concerns reports prior to admission he had new weakness and she was unable to help with transfers at home, pt is wheelchair bound Constitutional Constitutional: Denies body ache(s), Denies chills, Denies fever(s) and Denies headache(s) Eyes Eyes: Denies change in vision ENT Ears, Nose, Mouth, and Throat: Denies headache(s), Reports nasal congestion and Denies nasal discharge Cardiovascular Cardiovascular: Reports as per HPI Respiratory Respiratory: Reports as per HPI Gastrointestinal Gastrointestinal: Denies melena, Denies diarrhea, Denies nausea and Denies vomiting Genitourinary Genitourinary: Denies dysuria and Denies urinary frequency Musculoskeletal Musculoskeletal: Denies back pain and Denies myalgias Neurologic Neurologic: Denies headache(s) Physical Exam 2 Vital Signs: Vital Signs: Last Vital Signs Temp 97.2 F 04/26/24 07:23 Pulse 93 04/26/24 07:46 Resp 18 04/26/24 07:46 BP 159/85 H 04/26/24 07:23 Pulse Ox 90 L 04/26/24 07:23 O2 Del Method Nasal Cannula 04/26/24 07:23 O2 Flow Rate 2 04/26/24 07:23 Oxygen Flow Rate 2 04/25/24 11:55 BMI result Body Mass Index 30.3 General: AOx3, no acute distress, seen with bedside Resp: CTA bilaterally CVS: S1, S2, RRR GI: +BS, NT, no distention Skin: Warm, dry, LLE wound dressing intact Extremities: No edema Psych: Appropriate affect Objective Data Active Medications Acetaminophen (Acetaminophen 325 Mg Tablet) 650 mg PO Q6H PRN PRN Reason: Pain, Mild (Pain Scale 1-3), fever or headache Albuterol/Ipratropium (Albuterol/Iprat 2.5/0.5mg 3 Ml Ampul.Neb) 3 ml INHALE RQ4H WHILE AWAKE [facility] Last Admin: 04/26/24 07:46 Dose: 3 ml Documented By: TOO Amlodipine Besylate (Amlodipine Besylate 2.5 Mg Tablet) 2.5 mg PO DAILY [facility]; Protocol Last Admin: 04/26/24 07:53 Dose: 2.5 mg Documented By: ANJANA Calcium Carbonate (Calcium Carbonate 750 Mg Tab.Chew) 750 mg PO Q4H PRN PRN Reason: Heartburn Albuterol Sulfate 2.5 mg/ (Albuterol/Ipratropium 3 ml) 0 mg INHALE Q2H PRN PRN Reason: Shortness of Breath/Wheezing Duloxetine HCl (Duloxetine Hcl 20 Mg Capsule.Dr) 20 mg PO BEDTIME [facility] Last Admin: 04/25/24 21:21 Dose: 20 mg Documented By: ISABEL Gabapentin (Gabapentin 600 Mg Tablet) 600 mg PO DAILY [facility] Last Admin: 04/26/24 07:52 Dose: 600 mg Documented By: ANJANA Gabapentin (Gabapentin 400 Mg Capsule) 800 mg PO BEDTIME [facility] Last Admin: 04/25/24 21:21 Dose: 800 mg Documented By: ISABEL Hydromorphone HCl (Hydromorphone Hcl 2 Mg Tablet) 2 mg PO DAILY PRN PRN Reason: Pain, Moderate (Pain Scale 4-6 Last Admin: 04/26/24 07:52 Dose: 2 mg Documented By: ANJANA Doxycycline Hyclate 100 mg/ (Sodium Chloride) 250 mls @ 166.67 mls/hr IV BID [facility] Last Infusion: 04/26/24 09:26 Dose: Infused Documented By: ANJANA Magnesium Hydroxide (Milk Of Magnesia 30 Ml Oral.Susp) 30 ml PO DAILY PRN PRN Reason: Constipation Melatonin (Melatonin 3 Mg Tablet) 6 mg PO BEDTIME PRN PRN Reason: Insomnia Methylprednisolone Sodium Succinate (Methylprednisolone Sod Succ 40 Mg/Ml Vial) 40 mg IVPUSH Q12H [facility] Last Admin: 04/26/24 07:52 Dose: 40 mg Documented By: ANJANA Metoprolol Succinate (Metoprolol Succinate Er 50 Mg Tab.Er.24h) 50 mg PO DAILY [facility]; Protocol Last Admin: 04/26/24 07:53 Dose: 50 mg Documented By: ANJANA Ondansetron HCl (Ondansetron Hcl 4 Mg/2 Ml Vial) 4 mg IVPUSH Q8H PRN PRN Reason: Nausea and Vomiting Rivaroxaban (Rivaroxaban 10 Mg Tablet) 10 mg PO DAILY@1700 [facility] Last Admin: 04/25/24 18:29 Dose: Not Given Documented By: SHANNA Non-Admin Reason: Patient Refused Sodium Chloride (0.9 % Sodium Chloride Flush 3 Ml Syringe) 3 ml IVFLUSH QSCAFT [facility] Last Admin: 04/26/24 07:52 Dose: Not Given Documented By: ANJANA Non-Admin Reason: IV Running Labs 04/26/24 05:43 04/26/24 05:43 Labs: Laboratory Results - last 24 hr 04/25/24 04/25/24 04/25/24 12:26 13:34 16:24 MCV 81.0 MCH 26.5 L MCHC 32.7 RDW 15.9 Plt Count 262 MPV 9.1 L Immature Gran % (Auto) 0.3 Neut % (Auto) 75.5 H Lymph % (Auto) 14.0 L [place] % (Auto) 8.1 Eos % (Auto) 1.6 Baso % (Auto) 0.5 Lymph # (Auto) 0.9 L [place] # (Auto) 0.5 Eos # (Auto) 0.1 Baso # (Auto) 0.0 Abs Immat Gran (auto) 0.02 Absolute Neuts (auto) 4.9 Absolute Nucleated RBC 0.000 Nucleated RBC % (auto) 0.0 PT 15.0 H INR 1.3 H APTT 34.1 Anion Gap 15 Estim Creat Clear Calc 38.7 Estimated GFR 42 Random Glucose 91 Lactic Acid 2.7 H* Lactic Acid F/U @ 2Hr 2.9 H* Lactic Acid F/U @ 4Hr Calcium 9.8 Magnesium 2.1 Total Bilirubin 0.5 Direct Bilirubin 0.3 AST 23 ALT 23 Alkaline Phosphatase 81 Troponin I High Sens 7.8 B-Natriuretic Peptide 123 H Total Protein 7.5 Albumin 3.8 Urine Color Urine Appearance Urine pH Ur Specific Reva Urine Protein Urine Glucose (UA) Urine Ketones Urine Blood Urine Nitrite Ur Leukocyte Esterase Urine RBC Urine WBC Ur Squamous Epith Cells Urine Bacteria Hyaline Casts Influenza Type A (PCR) NEGATIVE Influenza Type B (PCR) NEGATIVE RSV RNA Qual (PCR) NEGATIVE SARS-CoV-2 RNA (RT-PCR) NEGATIVE 04/25/24 04/25/24 04/26/24 16:40 18:59 05:43 MCV 81.3 MCH 25.9 L MCHC 31.9 RDW 15.9 Plt Count 303 MPV 9.5 Immature Gran % (Auto) 0.5 H Neut % (Auto) 82.0 H Lymph % (Auto) 11.4 L [place] % (Auto) 5.9 Eos % (Auto) 0.0 Baso % (Auto) 0.2 Lymph # (Auto) 0.7 L [place] # (Auto) 0.4 Eos # (Auto) 0.0 Baso # (Auto) 0.0 Abs Immat Gran (auto) 0.03 Absolute Neuts (auto) 5.3 Absolute Nucleated RBC 0.000 Nucleated RBC % (auto) 0.0 PT INR APTT Anion Gap 14 Estim Creat Clear Calc 51.4 Estimated GFR 58 Random Glucose 122 H Lactic Acid Lactic Acid F/U @ 2Hr Lactic Acid F/U @ 4Hr 2.1 H* Calcium 9.6 Magnesium Total Bilirubin Direct Bilirubin AST ALT Alkaline Phosphatase Troponin I High Sens B-Natriuretic Peptide Total Protein Albumin Urine Color Dark Yellow Urine Appearance Cloudy Urine pH 5.5 Ur Specific Reva >= 1.030 H Urine Protein 100 (2+) H Urine Glucose (UA) Negative Urine Ketones 15 Urine Blood Negative Urine Nitrite Negative Ur Leukocyte Esterase Small (1+) H Urine RBC 0-2 Urine WBC 6-10 Ur Squamous Epith Cells 3-5 Urine Bacteria None Seen Hyaline Casts 6-10 Influenza Type A (PCR) Influenza Type B (PCR) RSV RNA Qual (PCR) SARS-CoV-2 RNA (RT-PCR) Microbiology Microbiology Results: Microbiology 04/25/24 Unknown Urine Culture - Preliminary Urine clean catch - Clean Catch Midstream Culture too young to evaluate. 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 Quality Stroke Does the patient have a stroke diagnosis?: No VTE Prior VTE?: Yes VTE Risk Level:: Medical - moderate - high VTE Device Contraindication: Procedure Contraindicated VTE Drug Contraindication: N/A - Med Ordered
[2024-04-26 15:17] LABS: Adenovirus PCR Not Detected (Not Detect.); Bordetella parapertussis PCR Not Detected (Not Detect.); Bordetella pertussis PCR Not Detected (Not Detect.); Chlamydia pneumoniae PCR Not Detected (Not Detect.); Coronavirus 229E PCR Not Detected (Not Detect.); Coronavirus HKU1 PCR Not Detected (Not Detect.); Coronavirus NL63 PCR Not Detected (Not Detect.); Coronavirus OC43 PCR Not Detected (Not Detect.); Human metapneumovirus PCR Not Detected (Not Detect.); Influenza A PCR Not Detected (Not Detect.); Influenza B PCR Not Detected (Not Detect.); Mycoplasma pneumoniae PCR Not Detected (Not Detect.); Parainfluenza 1 PCR Not Detected (Not Detect.); Parainfluenza 2 PCR Not Detected (Not Detect.); Parainfluenza 3 PCR Not Detected (Not Detect.); Parainfluenza 4 PCR Not Detected (Not Detect.); RSV PCR Not Detected (Not Detect.); Rhino/Enterovirus PCR Not Detected (Not Detect.)
[2024-04-26 16:01] LABS: SARS-CoV-2 PCR Not Detected (Not Detect.)
[2024-04-26] MEDS: 0.9 % Sodium Chloride Flush 3 ML SYRINGE IVFLUSH ×2 (16:33→21:12)
[2024-04-26] MEDS: DULoxetine HCl 20 MG CAPSULE.DR PO (20:05)
[2024-04-26] MEDS: Gabapentin 400 MG CAPSULE 800 MG PO (20:05)
[2024-04-27 03:45] VITALS: BP 164/83; PULSE 87; RESP 18; TEMP 36.1; O2SAT 93
[2024-04-27] MEDS: Acetaminophen 325 MG TABLET 650 MG PO (03:55)
[2024-04-27 07:52] VITALS: BP 160/92; PULSE 72; RESP 18; TEMP 36.2; O2SAT 94
[2024-04-27] MEDS: Albuterol/Iprat 2.5/0.5MG 3 ML AMPUL.NEB INHALE (07:59)
[2024-04-27 08:01] VITALS: PULSE 91; RESP 18; O2SAT 93
[2024-04-27 08:57] VITALS: BP 153/91
[2024-04-27] MEDS: Doxycycline Hyclate 100 MG in 0.9 % Sodium Chloride 250 ML 166.67 MG IV (08:57)
[2024-04-27] MEDS: methylPREDNISolone Sod Succ 40 MG/ML VIAL IVPUSH (08:57)
[2024-04-27] MEDS: Metoprolol Succinate ER 50 MG TAB.ER.24H PO (08:57)
[2024-04-27] MEDS: Gabapentin 600 MG TABLET PO (08:57)
[2024-04-27] MEDS: amLODIPine Besylate 2.5 MG TABLET PO (08:58)
[2024-04-27] MEDS: 0.9 % Sodium Chloride Flush 3 ML SYRINGE IVFLUSH (09:00)
[2024-04-27 09:13] VITALS: O2SAT 93
--- NOTE | 2024-04-27 09:45 | PC.NURSE ---
Addendum entered by Tono Snyder RN 04/27/24 09:51: IV site clean, dry, and intact. No signs or symptoms of infiltration. Patient reports improved comfort with decreased rate. Original Note: IV doxycycline infusion rate decreased for patient comfort.
--- NOTE | 2024-04-27 10:20 | P.DS_ITS ---
DS: Providers Provider Date of Service: 04/27/24 Date of admission: 04/25/24 15:27 Date of discharge: 04/27/24 Primary care physician: Kia Stroud MD Consults: 04/25/24 15:46 Consult to Wound Care Routine Reason for consultation: LLE wound, seeing wound care Q2W due tomorrow 04/25/24 18:27 Consult to Wound Care Routine Reason for consultation: LLE cellulitis DS: Diagnosis Discharge Diagnosis (1) Acute exacerbation of chronic obstructive pulmonary disease: Status: Acute (2) Chronic ulcer of leg: Status: Acute (3) CKD (chronic kidney disease) stage 3, GFR 30-59 ml/min: Status: Acute DS: Summary Hospital Course Hospital Course: Admission HPI: 78-year-old male with a past medical history significant for COPD, hypertension, Sjogren's, HIT, PE, CKD, psoriatic arthritis, and pyoderma gangrenosum (not currently on medication but has used many biologics in the past, most recently on azothiaprine), who presented to the ED today with worsening shortness of breath, productive cough with green sputum, weakness and fever. His reports a temp of 101 degrees last night. His fever has been waxing and waning. He has also had some diarrhea and nausea but no vomiting. He denies any recent antibiotics or travel. He also reports chills and rigors today. He will have an occasional headache. Runny nose has improved. Hospital course: Pt presented with SOB when admitted due to COPD exacerbation, treated with IV steroids, bronchodilators with nebs, and doxycycline for bronchitis. improved over the past few days. no respiratory difficulty, would like to go home today. will send home with prednisone 40mg QD for 3 more days to complete the course of 5 days, and doxycycline 100mg BID for 3 more days to complete the course of 5 days for bronchitis. continue home inhalers. Status at Discharge Functional status at discharge: wheelchair bound Time Attestation Discharge Coordination Time (in mins): 45 mins Quality: Safe Use of Opioids Does Pt have an Active Cancer Diagnosis on the Problem List?: No Quality: Stroke Does the patient have a stroke diagnosis?: No Physical Exam Vital Signs: Vital Signs: Last Vital Signs Temp 97.1 F 04/27/24 07:52 Pulse 91 04/27/24 08:01 Resp 18 04/27/24 08:01 BP 153/91 H 04/27/24 08:57 Pulse Ox 93 04/27/24 09:13 O2 Del Method Room Air 04/27/24 09:13 O2 Flow Rate 2 04/27/24 03:45 Oxygen Flow Rate 2 04/25/24 11:55 BMI result Body Mass Index 30.3 General: AOx3, no acute distress Resp: CTA bilaterally CVS: S1, S2, RRR GI: +BS, NT, no distention Skin: Warm, dry. LLE wound, dressing changed yesterday. Extremities: No edema Psych: Appropriate affect DS: Data Data Completed and Pending Completed studies during hospitalization [Text1]: Procedures Excision of Left Lower Leg Skin, External Approach (12/22/21) Excision of Left Lower Leg Subcutaneous Tissue and Fascia, Open Approach (12/22/21) Insertion of Endotracheal Airway into Trachea, Via Natural or Artificial Opening (12/22/21) Insertion of Infusion Device into Superior Vena Cava, Percutaneous Approach (12/22/21) Introduction of Vasopressor into Peripheral Vein, Percutaneous Approach (12/22/21) Performance of Cardiac Output, Single, Manual (12/22/21) Respiratory Ventilation, 24-96 Consecutive Hours (12/22/21) Labs on day of discharge: Laboratory Results - last 24 hr 04/26/24 14:00 Respiratory Panel [place] See Note Adenovirus (Rapid PCR) Not Detected B.pert (TEM-PCR) Not Detected B.parapertussis DNA PCR Not Detected C. pneumoniae DNA (PCR) Not Detected Coronavirus OC43 (PCR) Not Detected Coronavirus HKU1 (PCR) Not Detected Coronavirus 229E (PCR) Not Detected Coronavirus NL63 (PCR) Not Detected Human Metapneumovir PCR Not Detected Influenza A (RT-PCR) Not Detected Influenza B (RT-PCR) Not Detected M. pneumoniae (PCR) Not Detected Parainfluenza 1 (PCR) Not Detected Parainfluenza 2 (PCR) Not Detected Parainfluenza 3 (PCR) Not Detected Parainfluenza 4 (PCR) Not Detected RSV (PCR) Not Detected Entero/Rhino (PCR) Not Detected SARS-CoV-2 RNA (RT-PCR) Not Detected Preliminary micro results at discharge 04/25/24 13:26 Blood Culture - Preliminary Blood - Venous No growth after 24 hours. 04/25/24 13:34 Blood Culture - Preliminary Blood - Venous No growth after 24 hours. 04/25/24 Unknown Urine Culture - Preliminary Urine clean catch - Clean Catch Midstream Culture too young to evaluate. Discharge Plan Discharge Anticipated Discharge Date/Time: 04/27/24 10:05 Patient Disposition: Home, Self-Care Discharge Diagnosis: COPD exacerbation Referrals: Maximus,Kia Liu MD [Primary Care Provider] - 1 Week Discharge Medications: New doxycycline hyclate 100 mg capsule 100 mg PO BID Qty: 6 0RF prednisone 20 mg tablet 40 mg PO DAILY Qty: 6 0RF Continued (DME) miscellaneous medical supply Misc See Rx Instructions .Route Qty: 1 0RF Rx Instructions: As directed metoprolol succinate 50 mg tablet extended release 24 hr 50 mg PO DAILY Qty: 90 3RF amlodipine 2.5 mg tablet 2.5 mg PO DAILY Qty: 90 3RF gabapentin 800 mg Tablet 800 mg PO BEDTIME ibuprofen 200 mg Tablet 400 mg PO DAILY PRN (Reason: Pain) albuterol sulfate 90 mcg/actuation HFA aerosol inhaler 2 puff INHALATION Q6H PRN (Reason: dyspnea) gabapentin 600 mg tablet 600 mg PO DAILY hydromorphone 2 mg tablet 2 mg PO DAILY PRN (Reason: Pain, Moderate (Pain Scale 4-6) Rx Instructions: Partial Fill upon patient request. fluticasone propionate [Flonase Allergy Relief] 50 mcg/actuation spray,suspension 2 spray intranasal DAILY PRN (Reason: allergies) Rx Instructions: administer into each nostril duloxetine 20 mg capsule,delayed release(DR/EC) 20 mg PO BEDTIME acetaminophen [Tylenol Extra Strength] 500 mg tablet 1,000 mg PO Q6H PRN (Reason: Pain (Scale Score 1-3)) naloxone [Narcan] 4 mg/actuation spray,non-aerosol 4 mg intranasal Q2M PRN (Reason: opioid overdose) Qty: 2 0RF Rx Instructions: spray 1 dose into ONE nostril; alternate nostrils w each dose until help arrives Anoro Ellipta 62.5-25 mcg/actuation blister with device 1 inh inhalation DAILY PRN (Reason: Shortness Of Breath) Qty: 60 11RF Discharge Orders: Discharge Order (Routine); Ordered 04/27/24 Ordered By: Ida Olson Diet: Regular diet Activity on Discharge: As tolerated Stand Alone Forms: Patient Portal Discharge page Print Language: Uzbek Care Plan Goals: recovery from COPD exacerbation Health Concerns: COPD, respiratory failure Plan of Treatment: take prednisone 40mg daily for 3 more days for COPD exacerbation take doxycycline 100mg twice daily for 3 more days for bronchitis continue home inhalers follow up with PCP within 1-2 weeks Assessment: see above
--- NOTE | 2024-04-27 10:38 | MHC.CM.PN ---
DP: PT HAS BEEN MEDICALLY CLEARED FOR DC HOME WITH [facility] FOR HOME P.T. SERVICES. [facility] WILL TRANSPORT.
--- NOTE | 2024-04-27 10:41 | P.F2F_ITS ---
Service Date Service Date: 04/27/24 Encounter Date of encounter: 04/27/24 Reasons for Services Signs and symptoms assessed: SOB due to COPD Reason for physical therapy: home safety and mobility and energy conservation Homebound: Leaving the home is medically contraindicated at this time without the asist of a device and/or another person due th the listed conditions above and below. Reason homebound: unsteady gait / fall risk and weakness related to hospital stay Homebound supporting statement: homebound due to SOB at rest with minimal activity, wheelchair bound therefore needs assistance of another person Certification: Based on the above findings, I certify that this patient is confined to the home and needs intermittent residential care, physical therapy and/or speech therapy, or continues to need occupational therapy. The patient is under my care, and I have initiated the establishment of the plan of care. The patient will be followed by a physician who will periodically review the plan of care. Time Spent With Patient Time: Total time managing care of this patient today ____ minutes.
[2024-04-27] MEDS: Flu Vacc TS2024-25(6mos up)/PF 0.5 ML SYRINGE IM (11:01)
== END 2024-04-27 11:53 | disposition home or self-care (01) | DRG 191 ==
LOC: HO.ED 13:22 → HO.EDOVER 15:37 → HO.S3 17:43
PROVIDERS: Internal Medicine; Physician Assistant; Admitting Provider Physician Assistant; Emergency Provider Emergency Medicine Emergency Medical Services; PCP Internal Medicine; Visit Provider Physician Assistant
DX: J44.1 Chronic obstructive pulmonary disease with (acute) exacerbation (principal); L88 Pyoderma gangrenosum; N17.9 Acute kidney failure, unspecified; I12.9 Hypertensive chronic kidney disease with stage 1 through stage 4 chronic kidney disease, or unspecified chronic kidney disease; N18.30 Chronic kidney disease, stage 3 unspecified; M06.9 Rheumatoid arthritis, unspecified; M35.00 Sjogren syndrome, unspecified; Z23 Encounter for immunization; Z20.822 Contact with and (suspected) exposure to COVID-19; Z79.620 Long term (current) use of immunosuppressive biologic; Z87.898 Personal history of other specified conditions; Z79.899 Other long term (current) drug therapy
CPT/HCPCS: 0241U; 36415; 71045; 80048; 80076; 81001; 83605; 83735; 83880; 84484; 85025; 85610; 85730; 87040; 87086; 87633; 90656; 93005; 94640; 97162; 99285; J2919; J7120

== ENCOUNTER → 2024-04-25 12:07 | Outpatient (BNV) | payer MEDICARE, SELFPAY | PROVIDERS: Emergency Provider Emergency Medicine Emergency Medical Services; PCP Internal Medicine; Visit Provider Internal Medicine | DX: R06.02 Shortness of breath (principal); R94.31 Abnormal electrocardiogram [ECG] [EKG] | CPT/HCPCS: 93010 ==

== ENCOUNTER → 2024-04-25 15:27 | Outpatient (BNV) | payer MEDICARE, SELFPAY | PROVIDERS: Admitting Provider Physician Assistant; Emergency Provider Emergency Medicine Emergency Medical Services; PCP Internal Medicine; Visit Provider Physician Assistant | DX: J44.1 Chronic obstructive pulmonary disease with (acute) exacerbation (principal); L97.928 Non-pressure chronic ulcer of unspecified part of left lower leg with other specified severity; N18.30 Chronic kidney disease, stage 3 unspecified | CPT/HCPCS: 99223; 99232; 99239; G0180 ==

== ENCOUNTER 2024-04-28 13:25 | Outpatient (AMB) | payer MEDICARE, SELFPAY ==
[2024-04-28 13:35] VITALS: BP 128/60; PULSE 78; BMI 29.0
--- NOTE | 2024-04-28 13:35 | A.OFFVIS_ITS ---
Vital Signs 04/28/24 13:35 Height 5 ft 6 in Weight 180 lb BMI 29.0 BMI Reason not done Patient refused/unable BP 128/60 Blood Pressure Location Lt brachial Position Sitting Pulse 78 Pulse Source Pulse Oximeter Intake Visit Reasons: 3 mth f/up Allergies heparin (porcine) Allergy (Severe, Verified 04/25/24 11:59) HIT Medication List - Last Reconciled 04/28/24 by NOEMI Mendoza acetaminophen (Tylenol Extra Strength) 1,000 mg PO Q6H PRN albuterol sulfate 90 mcg/actuation 2 puffs inhalation Q6H PRN amlodipine 2.5 mg PO DAILY doxycycline hyclate 100 mg PO BID duloxetine 20 mg PO BEDTIME fluticasone propionate 50 mcg/actuation (Flonase Allergy Relief) 2 sprays intranasal DAILY PRN gabapentin 600 mg PO DAILY gabapentin 800 mg PO BEDTIME hydromorphone 2 mg PO DAILY PRN ibuprofen 400 mg PO DAILY PRN metoprolol succinate ER 50 mg PO DAILY miscellaneous medical supply As directed naloxone 4 mg/actuation (Narcan) 4 mg intranasal Q2M PRN prednisone 40 mg (2 x 20 mg) PO DAILY umeclidinium-vilanterol 62.5-25 mcg/actuation (Anoro Ellipta) 1 inh inhalation DAILY PRN HPI HPI 3 mth f/up: Details: Sarath is a 77-year-old male with past medical history of hypertension, pulmonary embolism with cardiac arrest 01/2022 with episodes of wide complex rhythm at that time which was thought to be SVT with aberrancy who was recently admitted to [facility] with increased shortness of breath treated for COPD exacerbation. On last visit to our office he was started on amlodipine and now presents for blood pressure follow-up. Today he reports he has been doing well since his hospital discharge yesterday. He says his breathing is much more comfortable. He had been having coughing, wheezing and chills. He is now on prednisone and antibiotics. He denies shortness of breath while sitting in his wheelchair. No chest discomfort at rest or with activity. No heart palpitations, lightheadedness, presyncope, syncope, falls. Still has issues with chronic wounds on his lower extremities. Not able to walk and using a wheelchair. Taking meds as directed. [facility] Medical History MDD (major depressive disorder), single episode Pressure injury of buttock, stage 1 Deep vein thrombosis 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 Acute pulmonary embolism with acute cor pulmonale Acute pulmonary embolism Cardiac arrest CKD (chronic kidney disease) stage 3, GFR 30-59 ml/min Sjogren's disease Leg pain, bilateral Elevated serum creatinine COPD (chronic obstructive pulmonary disease) HTN (hypertension) Rheumatoid arthritis Chronic ulcer of leg Surgical History History of ankle surgery History of hernia repair History of left knee replacement Family History Sister Breast cancer Father Aneurysm Mother Angina at rest Other No family history of coronary artery disease Social History Household Members: Spouse Housing: House Do you presently have visiting nurse or other home services: No Alcohol intake: current Alcohol intake frequency: holidays/special occasions only Comment: restraints Patient Tobacco Use Status: Never used Tobacco Tobacco use type: Cigarette Cigarette Packs Per Day: 1 Years Smoked: quit + years e-Cigarette/Vaping Use: Never Used Advance Directives Date on File: 12/23/21 service: Yes Current occupational status: retired Cognitive needs: Yes (cane) Hearing needs: No Vision needs: Yes (Pt wear glasses. ) Review of Systems Const All systems reviewed & are unremarkable except as noted in HPI and below Denies weakness ENT Denies dizziness Card Details: open wound left LE - chronic Denies chest pain, Denies chest pain with activity, Denies syncope, Denies rapid heart rate, Denies edema, Reports leg edema, Denies lightheadedness, Denies palpitations, Denies dyspnea, Reports dyspnea on exertion and Denies orthopnea Resp Denies cough, Denies dyspnea and Reports dyspnea on exertion GI Denies hematochezia and Denies change in stool character Musc Reports abnormal gait, Denies muscle cramps, Denies muscle weakness, Denies numbness, Denies radiating pain into limb and Denies tingling Neuro Reports abnormal gait, Denies dizziness, Denies syncope, Denies numbness, Denies tingling and Denies weakness Endo Denies palpitations Physical Exam Vital Signs: Last Vital Signs Pulse 78 04/28/24 13:35 BP 128/60 04/28/24 13:35 BMI result Body Mass Index 29.0 Const General: cooperative, healthy appearing, comfortable and no acute distress Orientation/consciousness: patient oriented x3 Neck Neck: Yes normal visual inspection and Yes no JVD Resp Effort & Inspection: normal respiratory effort Auscultation: clear to auscultation bilaterally, no crackles, no rales, no rhonchi and no wheezes Cardio Jugular venous distension: no JVD Rate: regular rate Rhythm: regular rhythm Heart sounds: S1 normal heart sound present, S2 normal heart sound present, no murmurs and no rubs Neuro General: patient oriented x3 Extrem General: Yes normal to inspection, No no pedal edema and No calf tenderness Psych Appearance: grossly normal Mental Status: mental status grossly normal Speech and movement: Normal speech and movement present Assessment & Plan Assessment & Plan (1) HTN (hypertension): Code(s): I10 - Essential (primary) hypertension Category: Medical Plan: History of hypertension. Had been on metoprolol tartrate 25 mg b.i.d.. On last visit it was noted his blood pressures were mostly elevated. He did not want to take more medication daily. We agreed on changing his metoprolol to metoprolol XL 50 mg daily and adding amlodipine 2.5 mg daily. Blood pressure log reviewed today and home readings show good control. There is a rare reading with a systolic of 150, most other readings 120-130 systolic. Blood pressure today 128/60. Continue current meds without change. Blood pressure does become elevated his amlodipine can be further titrated. Cardiology office visit in 6 months, sooner if needed. (2) Acute pulmonary embolism with acute cor pulmonale: Code(s): I26.09 - Other pulmonary embolism with acute cor pulmonale Category: Medical Plan: History of an acute pulmonary embolism with cor pulmonale, cardiac arrest 01/2022. He cardiology consult at that time however did not followed up in our office until October 2023. He tells me he has had no recurrent issues with blood clots. His med list does not include a blood thinner at this time. No signs of heart failure on exam. An EKG was done last visit showing normal sinus rhythm, nonspecific T-wave abnormality, rate 80. Echocardiogram was done on 11/05/2023 shows EF 55-60%, mild LVH, grade 1 diastolic dysfunction, normal valves, mildly dilated RV, ascending aorta 4.1 cm. Test results reviewed with him. Did have hospital admission this past week for increased shortness of breath, COPD exacerbation. Today his breathing is much improved. (3) Cardiac arrest: Code(s): I46.9 - Cardiac arrest, cause unspecified Category: Medical Plan: At time of acute PE. Recent echo shows normal EF and no regional wall motion abnormalities. He has no reports of chest discomfort at rest or with activity. (4) SVT (supraventricular tachycardia): Code(s): I47.10 - Supraventricular tachycardia, unspecified Category: Medical Plan: Following PE while still hospitalized he was having runs of wide complex tachycardia which was evaluated by Dr. Carr and felt to be SVT with aberrancy. He was put on metoprolol and remains on it for heart rate and blood pressure control. No reports of heart palpitations. Holter monitor done on 02/10/2024 for 3 days showed sinus rhythm with heart rates average 71, rare SVE, rare ve with 2 brief runs, 4 beats, no pauses or heart block. Will continue on metoprolol. (5) Ascending aorta dilatation: Code(s): I77.810 - Thoracic aortic ectasia Category: Medical Plan: Last echo shows dilated ascending aorta 4.1 cm. Will plan for repeat echo 1 year from last, prior to next visit. (6) Hospital discharge follow-up: Code(s): Z09 - Encounter for follow-up examination after completed treatment for conditions other than malignant neoplasm Category: Medical Plan: As above. Plan Time spent on chart review, documentation, interview and assessment Orders: Orders CA echo transthoracic complete 10/16/24 I77.810 - Thoracic aortic ectasia Coding Level of Care Code Est Pt Level 4 (43270) Complex EM visit Add On G2211 Diagnoses HTN (hypertension) I10 Acute pulmonary embolism with acute cor pulmonale I26.09 Cardiac arrest I46.9 SVT (supraventricular tachycardia) I47.10 Ascending aorta dilatation I77.810 Hospital discharge follow-up Z09 Time Spent (min) 30
== END 2024-04-28 14:11 | disposition home or self-care (01) ==
PROVIDERS: PCP Internal Medicine; Visit Provider Nurse Practitioner Family
DX: I10 Essential (primary) hypertension (principal); I26.09 Other pulmonary embolism with acute cor pulmonale; I46.9 Cardiac arrest, cause unspecified; I47.10 Supraventricular tachycardia, unspecified; I77.810 Thoracic aortic ectasia; Z09 Encounter for follow-up examination after completed treatment for conditions other than malignant neoplasm
CPT/HCPCS: 99214; G2211

== ENCOUNTER → 2024-04-28 13:25 | Outpatient (BNVA) | payer MEDICARE, SELFPAY | PROVIDERS: PCP Internal Medicine; Visit Provider Nurse Practitioner Family | DX: Z09 Encounter for follow-up examination after completed treatment for conditions other than malignant neoplasm (principal); I10 Essential (primary) hypertension; I26.09 Other pulmonary embolism with acute cor pulmonale; I46.9 Cardiac arrest, cause unspecified; I47.10 Supraventricular tachycardia, unspecified; I77.810 Thoracic aortic ectasia | CPT/HCPCS: 99212 ==

== ENCOUNTER 2024-05-01 10:38 | Outpatient (AMB) | payer MEDICARE, SELFPAY ==
[2024-05-01 10:42] VITALS: BP 114/78; PULSE 70; O2SAT 94; BMI 29.4
--- NOTE | 2024-05-01 10:42 | A.OFFVIS_ITS ---
Vital Signs 05/01/24 10:42 Height 5 ft 6 in Weight 181 lb 14.102 oz BMI 29.4 BP 114/78 Blood Pressure Location Rt brachial Position Sitting Pulse 70 Pulse Source Pulse Oximeter Pulse Oximetry (%) 94 Oxygen Delivery Method Room Air Intake Visit Reasons: COPD Allergies heparin (porcine) Allergy (Severe, Verified 05/01/24 10:46) HIT HPI HPI COPD: Details: Sarath is a pleasant 78 year old male, former smoker, with 30 pack year history, quit 2019, with underlying COPD, Sjogren's, Rheumatoid arthritis on Humira, provoked PE, CKD, HTN and chronic nonhealing wound. At baseline, reports suboptimal control with Anoro and albuterol MDI. Today he presents for hospital follow up. He was recently admitted 04/25-04/27 for acute COPD exacerbation. He initially presented with dyspnea and progressively worsening productive cough, treated with IV steroids, bronchodilators, and doxycycline. He did report requiring supplemental oxygen however was discharged on room air. Today is the last day of prescription for prednisone and doxycycline 100mg. He reports significant improvements, continues with dyspnea on exertion and intermittent cough however infrequent. He continues to be nonambulatory due to poor healing wound on foot, currently in wheelchair and accompanied by . At the last visit, he was sent for overnight oximetry however this order was never processed, will resend. [facility] Medical History MDD (major depressive disorder), single episode Pressure injury of buttock, stage 1 Deep vein thrombosis 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 Acute pulmonary embolism with acute cor pulmonale Acute pulmonary embolism Cardiac arrest CKD (chronic kidney disease) stage 3, GFR 30-59 ml/min Sjogren's disease Leg pain, bilateral Elevated serum creatinine COPD (chronic obstructive pulmonary disease) HTN (hypertension) Rheumatoid arthritis Chronic ulcer of leg Surgical History History of ankle surgery History of hernia repair History of left knee replacement Family History Sister Breast cancer Father Aneurysm Mother Angina at rest Other No family history of coronary artery disease Social History (Updated 05/01/24 @ 10:46 by Sandra Andre [facility]) Household Members: Spouse Housing: House Do you presently have visiting nurse or other home services: No Alcohol intake: current Alcohol intake frequency: holidays/special occasions only Comment: restraints Patient Tobacco Use Status: Never used Tobacco Tobacco use type: Cigarette Cigarette Packs Per Day: 1 Years Smoked: quit 30+ years e-Cigarette/Vaping Use: Never Used Advance Directives Date on File: 12/23/21 service: Yes Current occupational status: retired Cognitive needs: Yes (cane) Hearing needs: No Vision needs: Yes (Pt wear glasses. ) Review of Systems Const Denies chills, Denies excessive sweating, Denies fever(s), Denies headache(s) and Denies night sweats Eyes Denies dry eyes, Denies irritation and Denies itchy eyes ENT Reports Normal hearing present, Denies headache(s), Denies nasal congestion, Denies nasal discharge and Denies sore throat Card Denies chest pain, Denies chest pain at rest, Denies chest pain with activity, Denies claudication, Denies orthopnea and Denies paroxysmal nocturnal dyspnea Resp Denies excessive phlegm production, Denies pain on inspiration, Denies pain with cough and Denies stridor Musc Denies myalgias Neuro Reports Normal hearing present and Denies headache(s) Endo Denies excessive sweating Jhon/Lymph Denies lymphadenopathy Aller/Immun Denies itchy eyes and Denies seasonal rhinorrhea Physical Exam Vital Signs: Last Vital Signs Pulse 70 05/01/24 10:42 BP 114/78 05/01/24 10:42 Pulse Ox 94 05/01/24 10:42 Oxygen Delivery Method Room Air 05/01/24 10:42 BMI result Body Mass Index 29.4 Const General: cooperative, healthy appearing, comfortable, no acute distress, well developed and alert Orientation/consciousness: patient oriented x3 Limitations: wheelchair HEENT Head: Yes normal to inspection, Yes normocephalic and Yes atraumatic Ears: hearing grossly normal bilaterally and external ears normal Eyes General: appearance normal, both eyes and all related structures Eyelids: Yes eyelids normal Sclerae: sclerae normal EOM: EOMs intact bilaterally Neck Neck: Yes normal visual inspection and Yes no lymphadenopathy Lymphatic: no lymphadenopathy noted Chest Chest palpation & inspection: normal inspection of the chest Resp Effort & Inspection: normal respiratory effort, able to speak in complete sentences, no audible wheezes, no cough, no stridor, not tachypneic, no tripod positioning and no use of accessory muscles Auscultation: diminished lung sounds Cardio Jugular venous distension: no JVD Rate: regular rate Skin Other: warm, dry Neuro General: patient oriented x3 Cranial nerves: Yes Normal hearing present Cognition (Neuro): normal cognition Extrem Other: LLE with edema, covered with dry, clean dressing Psych Appearance: grossly normal and well kempt Speech and movement: Normal speech and movement present and Clear speech present Affect: normal affect Attitude: cooperative Thought process: Normal thought process present Thought content: Normal thought content present Insight: Good insight present (Psych) Judgement: Good judgement present (Psych) Assessment & Plan Assessment & Plan (1) COPD (chronic obstructive pulmonary disease): Code(s): J44.9 - Chronic obstructive pulmonary disease, unspecified Category: Medical (2) Personal history of tobacco use: Comment: CT 10/30/2023 Code(s): Z87.891 - Personal history of nicotine dependence Category: Social Hx (3) Cough: Code(s): R05.9 - Cough, unspecified Category: Medical Plan Sarath presents after recent hospitalization related to COPD exacerbation. He reports improvements since discharge and will complete doxy/prednisone today. He is aware if symptoms recur to call office. He reports suboptimal relief with Anoro, will switch to Trelegy. Discussed importance of good oral hygiene to prevent thrush. Discussed 6MWT but unfortunately patient continues to be non weight bearing. Will resend order for overnight oximetry to assess for nocturnal hypoxemia, to be performed on room air. All questions were answered and patient is in agreement of plan. Will follow up in 6-8 weeks or sooner if needed. Medications: New xniqmycfqic-zqsjzwqox-bweqjddo 100-62.5-25 mcg (Trelegy Ellipta) 1 inh inhalation DAILY 60 ea 6RF Discontinued umeclidinium-vilanterol 62.5-25 mcg/actuation (Anoro Ellipta) Discontinued Reason: Patient Completed Course 1 inh inhalation DAILY PRN 60 ea 11RF Shortness Of Breath J44.9 - Chronic obstructive pulmonary disease, unspecified Coding Level of Care Code Est Pt Level 4 (55998) Diagnoses COPD (chronic obstructive pulmonary disease) J44.9 Personal history of tobacco use Z87.891 Cough R05.9
--- NOTE | 2024-05-01 10:42 | MHC.OFFVIS ---
Vital Signs 05/01/24 10:42 Height 5 ft 6 in Weight 181 lb 14.102 oz BMI 29.4 Intake Visit Reasons: COPD Allergies heparin (porcine) Allergy (Severe, Verified 04/25/24 11:59) HIT [facility] Medical History MDD (major depressive disorder), single episode Pressure injury of buttock, stage 1 Deep vein thrombosis 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 Acute pulmonary embolism with acute cor pulmonale Acute pulmonary embolism Cardiac arrest CKD (chronic kidney disease) stage 3, GFR 30-59 ml/min Sjogren's disease Leg pain, bilateral Elevated serum creatinine COPD (chronic obstructive pulmonary disease) HTN (hypertension) Rheumatoid arthritis Chronic ulcer of leg Surgical History History of ankle surgery History of hernia repair History of left knee replacement Family History Sister Breast cancer Father Aneurysm Mother Angina at rest Other No family history of coronary artery disease Social History Household Members: Spouse Housing: House Do you presently have visiting nurse or other home services: No Alcohol intake: current Alcohol intake frequency: holidays/special occasions only Comment: restraints Patient Tobacco Use Status: Never used Tobacco Tobacco use type: Cigarette Cigarette Packs Per Day: 1 Years Smoked: quit + years e-Cigarette/Vaping Use: Never Used Advance Directives Date on File: 12/23/21 service: Yes Current occupational status: retired Cognitive needs: Yes (cane) Hearing needs: No Vision needs: Yes (Pt wear glasses. ) Coding
== END 2024-05-01 11:26 | disposition home or self-care (01) ==
PROVIDERS: PCP Internal Medicine; Visit Provider Nurse Practitioner Family
DX: J44.9 Chronic obstructive pulmonary disease, unspecified (principal); Z87.891 Personal history of nicotine dependence; R05.9 Cough, unspecified
CPT/HCPCS: 99214

== ENCOUNTER → 2024-05-01 10:38 | Outpatient (BNVA) | payer MEDICARE, SELFPAY | PROVIDERS: PCP Internal Medicine; Visit Provider Nurse Practitioner Family | DX: J44.9 Chronic obstructive pulmonary disease, unspecified (principal); R05.9 Cough, unspecified; Z87.891 Personal history of nicotine dependence | CPT/HCPCS: 99212 ==

== ENCOUNTER 2024-05-09 14:53 | Outpatient (AMB) | payer MEDICARE, SELFPAY ==
[2024-05-09 14:56] VITALS: BP 90/62; PULSE 88; O2SAT 94; BMI 28.7
--- NOTE | 2024-05-09 14:56 | MHC.PC.OV ---
Vital Signs 05/09/24 14:56 05/09/24 15:20 Height 5 ft 6 in Weight 178 lb 2.136 oz BMI 28.7 BP 90/62 100/74 Blood Pressure Location Lt brachial Lt brachial Position Sitting Sitting Pulse 88 Pulse Source Pulse Oximeter Pulse Oximetry (%) 94 Oxygen Delivery Method Room Air Intake Visit Reasons: TCM COPD 04/26 [facility] Intake Note: Patient is here for hospital discharge follow up. Patient was discharged from [facility] on 04/26/24 Online Merchant Required: No Allergies heparin (porcine) Allergy (Severe, Verified 05/09/24 14:57) HIT Medication List - Last Reconciled 05/09/24 by Marjorie Kearney PA-C acetaminophen (Tylenol Extra Strength) 1,000 mg PO Q6H PRN albuterol sulfate 90 mcg/actuation 2 puffs inhalation Q6H PRN amlodipine 2.5 mg PO DAILY duloxetine 20 mg PO BEDTIME fluticasone propionate 50 mcg/actuation (Flonase Allergy Relief) 2 sprays intranasal DAILY PRN tfpbfhrlfgb-[id number] 100-62.5-25 mcg (Trelegy Ellipta) 1 inh inhalation DAILY gabapentin 600 mg PO DAILY gabapentin 800 mg PO BEDTIME 90 days hydromorphone 2 mg PO DAILY PRN ibuprofen 400 mg PO DAILY PRN metoprolol succinate ER 50 mg PO DAILY miscellaneous medical supply As directed naloxone 4 mg/actuation (Narcan) 4 mg intranasal Q2M PRN Tobacco use date assessed: 03/03/24 Fall risk assessment: No Falls in past year Last assessed Fall Risk: 05/09/24 Dental Screening Dental Screen Date: 03/03/24 HPI TCM COPD 04/26 [facility] HPI Details 78-year-old overweight male with 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 Stroud February 2024 coming in for hospital discharge follow up. In review of the notes, patient was seen in [facility] ED 04/25/2024 with worsening shortness of breath and productive cough with sputum and was admitted for COPD exacerbation. Patient was treated with IV steroids, bronchodilators with nebulizers and doxycycline for bronchitis with good improvement. Patient was discharged home with prednisone and additional doxycycline. Patient was seen by [facility] Cardiology 04/28/2024 continue on current medication regimen and ordered echocardiogram. Patient was seen by pulmonology 05/01/2024 switched inhaler to Trelegy in ordered for overnight oximetry advised to follow up in 6-8 weeks. Patient states he has been feeling generally better since discharge from the hospital. No longer has fever, chest pain or shortness of breath. He has been using his new inhaler with good improvement. TCM TCM Information Date of Discharge 04/27/24 Discharged From [facility] Medical History MDD (major depressive disorder), single episode Pressure injury of buttock, stage 1 Deep vein thrombosis 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 Acute pulmonary embolism with acute cor pulmonale Acute pulmonary embolism Cardiac arrest CKD (chronic kidney disease) stage 3, GFR 30-59 ml/min Sjogren's disease Leg pain, bilateral Elevated serum creatinine COPD (chronic obstructive pulmonary disease) HTN (hypertension) Rheumatoid arthritis Chronic ulcer of leg Surgical History History of ankle surgery History of hernia repair History of left knee replacement Family History Sister Breast cancer Father Aneurysm Mother Angina at rest Other No family history of coronary artery disease Social History (Updated 05/01/24 @ 10:46 by Sandra Andre [facility]) Household Members: Spouse Housing: House Do you presently have visiting nurse or other home services: No Alcohol intake: current Alcohol intake frequency: holidays/special occasions only Comment: restraints Patient Tobacco Use Status: Never used Tobacco Tobacco use type: Cigarette Cigarette Packs Per Day: 1 Years Smoked: quit + years Packs Per Year: 0 e-Cigarette/Vaping Use: Never Used Advance Directives Date on File: 12/23/21 service: Yes Current occupational status: retired Cognitive needs: Yes (cane) Hearing needs: No Vision needs: Yes (Pt wear glasses. ) Questionnaire Thrive Questionnaire Date Thrive assessed: 04/26/24 AUDIT C Alcohol Use Questionnaire (AUDIT-C) 2. How many drinks containing alcohol do you have on a typical day when you are drinking?: 1 or 2 3. How often do you have six or more drinks on one occasion?: Never Total Score: 0 RENETTA-7 AMB Questionnaire RENETTA-7 Date RENETTA - 7 assessed: 03/03/24 Source: Developed by Drs. Ronal Rivero, Cecelia Cortez, Johny Ocasio and colleagues, with an educational samantha from [employer]. Review of Systems Const Denies body aches, Denies chills, Denies fever(s), Denies headache(s) and Denies poor appetite Eyes Reports no additional complaints ENT Denies dizziness and Denies headache(s) Card Denies chest pain, Denies syncope, Denies edema, Denies irregular heart rhythm, Denies lightheadedness and Denies dyspnea Resp Reports cough (Occasional), Denies hemoptysis and Denies dyspnea GI Denies abdominal pain, Denies melena, Denies hematochezia, Denies change in bowel habits, Denies constipation, Denies diarrhea, Denies nausea and Denies vomiting Reports no additional complaints Musc Reports no additional complaints Skin/Breast Reports system reviewed and no additional complaints, except as documented Neuro Denies dizziness, Denies syncope and Denies headache(s) Psych Reports no additional complaints Physical exam (Primary Care) Vital Signs: Last Vital Signs Pulse 88 05/09/24 14:56 BP 100/74 05/09/24 15:20 Pulse Ox 94 05/09/24 14:56 Oxygen Delivery Method Room Air 05/09/24 14:56 BMI result Body Mass Index 28.7 Tobacco/Smoking Status: Tobacco use Status Tobacco use date assessed 03/03/24 05/09/24 14:57 Patient Tobacco Use Status Never used Tobacco 05/09/24 14:57 Tobacco use type Cigarette 05/09/24 14:57 e-Cigarette/Vaping Use Never Used 05/09/24 14:57 Thrive Assessment: Date of Thrive Assessment Date Thrive assessed 04/26/24 05/09/24 14:57 Const General: cooperative, healthy appearing, comfortable and no acute distress Orientation/consciousness: patient oriented x3 HENMT Head: Yes normocephalic Ears: hearing grossly normal bilaterally General nose exam: Normal external nose present Eyes General: appearance normal, both eyes and all related structures Conjunctivae: conjunctivae normal Neck Neck: Yes full ROM and Yes no lymphadenopathy Resp Effort & Inspection: normal respiratory effort Auscultation: clear to auscultation bilaterally, no crackles, no rales, no rhonchi and no wheezes Cardio Rate: regular rate Rhythm: regular rhythm Skin General skin exam: no rashes or lesions noted Neuro General: patient oriented x3 Gait exam (Neuro): Normal gait present Extrem General: Yes normal to inspection, Yes full ROM and No edema Psych Affect: normal affect Attitude: cooperative Insight: Good insight present (Psych) Judgement: Good judgement present (Psych) Coding Level of Care Code TCM Mod MDM <= 14 Days Complex EM visit Add On G2211 Diagnoses Ascending aorta dilatation I77.810 Nocturnal hypoxemia G47.34 Personal history of tobacco use Z87.891 Hypertriglyceridemia E78.1 Cough R05.9 HTN (hypertension) I10 COPD (chronic obstructive pulmonary disease) J44.9 Anemia D64.9 Assessment & Plan Assessment & Plan (1) Ascending aorta dilatation: Code(s): I77.810 - Thoracic aortic ectasia Category: Medical Plan: Continue to follow with ultrasound and continue to follow with Cardiology. (2) Nocturnal hypoxemia: Code(s): G47.34 - Idiopathic sleep related nonobstructive alveolar hypoventilation Category: Medical Plan: Overnight oximetry ordered by pulmonology and advised to follow up in 6-8 weeks. (3) Personal history of tobacco use: Comment: CT 10/30/2023 Code(s): Z87.891 - Personal history of nicotine dependence Category: Social Hx Plan: Smoking cigarettes and the use of tobacco can be harmful. We discussed the importance of stopping and options to aid in smoking cessation. No longer use of cigarettes. (4) Hypertriglyceridemia: Code(s): E78.1 - Pure hyperglyceridemia Category: Medical Plan: Avoid foods that are high in cholesterol such as red meat, fried foods, eggs and baked goods. Triglyceride goal of less than 150 and LDL goal of less than 70. Not currently on medical management. (5) Cough: Code(s): R05.9 - Cough, unspecified Category: Medical Plan: Cough has improved with prednisone and antibiotics. Continue on current medication regimen. Reviewed red flag symptoms and when to return for re-evaluation. (6) HTN (hypertension): Code(s): I10 - Essential (primary) hypertension Category: Medical Plan: Continue on current blood pressure medication. Avoid salt intake and encourage healthy diet and regular exercise. (7) COPD (chronic obstructive pulmonary disease): Code(s): J44.9 - Chronic obstructive pulmonary disease, unspecified Category: Medical Plan: COPD well managed on current medications recently switched to Trelegy and feels this has been beneficial. Continue to follow up with pulmonology. (8) Anemia: Code(s): D64.9 - Anemia, unspecified Category: Medical Plan: CBC showed evidence of anemia denies any GI bleed symptoms, lightheadedness or dizziness. Ordered for repeat CBC with iron profile, vitamin B12 and folate. Discussed anemia could be related to chronic kidney disease. Plan This note was constructed using voice recognition software. While every effort has been made to ensure accuracy and workers compensation claims examiner, still areas may have been included sometimes these areas may affect the content or meeting of the given symptoms. Total time spent caring for the patient today was 30 minutes. This includes time spent before the visit reviewing the chart, time spent during the visit, and time spent after the visit and documentation. Orders: Orders Complete Blood Count Auto Diff 05/09/24 D64.9 - Anemia, unspecified IRON PROFILE 05/09/24 D64.9 - Anemia, unspecified Vitamin B12 and Folate 05/09/24 D64.9 - Anemia, unspecified
[2024-05-09 15:20] VITALS: BP 100/74
== END 2024-05-09 15:39 | disposition home or self-care (01) ==
LOC: HO.HMCH 14:53
PROVIDERS: PCP Internal Medicine
DX: I77.810 Thoracic aortic ectasia (principal); G47.34 Idiopathic sleep related nonobstructive alveolar hypoventilation; J44.9 Chronic obstructive pulmonary disease, unspecified; Z87.891 Personal history of nicotine dependence; E78.1 Pure hyperglyceridemia; R05.9 Cough, unspecified; I10 Essential (primary) hypertension; D64.9 Anemia, unspecified

== ENCOUNTER → 2024-05-09 14:53 | Outpatient (BNVA) | payer MEDICARE, SELFPAY | PROVIDERS: PCP Internal Medicine | DX: I77.810 Thoracic aortic ectasia (principal); G47.34 Idiopathic sleep related nonobstructive alveolar hypoventilation; E78.1 Pure hyperglyceridemia; R05.9 Cough, unspecified; I10 Essential (primary) hypertension; J44.9 Chronic obstructive pulmonary disease, unspecified; Z87.891 Personal history of nicotine dependence | CPT/HCPCS: 99495 ==

== ENCOUNTER 2024-05-11 13:17 | Outpatient (REF) | payer MEDICARE, SELFPAY ==
[2024-05-11 16:35] LABS: MANUAL DIFF FLAG NO
[2024-05-11 16:50] LABS: Basophils Percent Auto 0.7 % (0-2); Eosinophils Absolute Auto 0.1 X10*3/uL (0.0-0.4); Eosinophils Percent Auto 1.4 % (0-4); Hematocrit 41.3 % (42.0-52.0); Hemoglobin 12.6 g/dl (14.0-18.0); Imm Gran Abs Auto 0.02 X10*3/uL (0.00-0.03); Imm Gran Pct Auto 0.3 % (0.0-0.4); Lymphocytes Absolute Auto 1.2 X10*3/uL (1.2-4.9); Lymphocytes Percent Auto 20.8 % (20-40); Mean Corpuscular HGB Conc 30.5 g/dl (31.0-36.0); Mean Corpuscular Hemoglobin 25.6 pg (27.0-33.0); Mean Corpuscular Volume 83.8 fL (80.0-98.0); Mean Platelet Volume 9.3 fL (9.4-12.4); Monocytes Absolute Auto 0.4 X10*3/uL (0.1-1.2); Monocytes Percent Auto 7.4 % (2-11); Neutrophils Absolute Auto 4.1 x10*3/uL (2.0-8.3); Neutrophils Percent Auto 69.4 % (45-73); Platelet Count 396 X10*3/uL (160-400); Red Blood Count 4.93 X10*6/uL (4.60-5.80); Red Cell Distribution Width 17.2 % (11.0-16.0); White Blood Count 5.9 X10*3/uL (4.8-10.8)
[2024-05-11 17:04] LABS: Iron 23 mcg/dL (45-160); Percent Iron Saturation 10 % (15-50); Total Iron Binding Capacity 222 mcg/dL (228-428); Unsaturated Iron Binding 199 ug/dL
[2024-05-11 17:33] LABS: Folate 5.1 ng/mL (> or = 4.0); Vitamin B12 572 pg/mL (200-900)
== END 2024-05-11 13:18 | disposition home or self-care (01) ==
LOC: HO.HMGCLDS 13:17
PROVIDERS: PCP Internal Medicine
DX: D64.9 Anemia, unspecified (principal)
CPT/HCPCS: 36415; 82607; 82746; 83540; 85025

== ENCOUNTER 2024-05-22 10:41 | Outpatient (AMB) | payer MEDICARE, SELFPAY ==
--- NOTE | 2024-05-22 10:42 | A.OFFVIS_ITS ---
Vital Signs 3 05/22/24 10:52 Height 5 ft 6 in Weight 178 lb BMI 28.7 BP 132/76 Blood Pressure Location Lt brachial Position Sitting Pulse 73 Pulse Source Pulse Oximeter Pulse Oximetry (%) 98 Oxygen Delivery Method Room Air Intake Visit Reasons: Pill Count Intake Note: Sarath comes in today for a pill count to hydromorphone, patient should have 0 tablets and presents with 18 tablets which he last took about a week ago. Pain today 02/18 Medical Esthetician Required: No Accompanied by: Spouse Allergies heparin (porcine) Allergy (Severe, Verified 05/09/24 14:57) HIT HPI Comments Details: Patient presents today for a pill count. Patient is supposed to have #0 pills, in his possession has #18 pills. Reports pain due to increased wound drainage and cold weather. Patient takes hydromorphine mainly during wound care and dressing changes in clinic and home. Patient reports mild to moderate analgesia with current medication regime. He continues to take gabapentin, duloxetine and Tylenol. Patient reports recent ER visit with hospitalization 04/25/24-04/27/24 for COPD exacerbation and bronchitis. He has been treated with prednisone 40mg, doxycycline 100mg twice daily and home inhalers. Patient and family reports improvement and increased drainage in his LLE wound ulcer since starting prednisone and doxycycline but recently developed heartburn, nausea and diarrhea. Denies any fever, chills, weight loss, bleeding, weakness, dizziness, shortness of breaths, constipation, nausea, sedation, urinary retention or abdominal pain. [facility] Medical History MDD (major depressive disorder), single episode Pressure injury of buttock, stage 1 Deep vein thrombosis 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 Acute pulmonary embolism with acute cor pulmonale Acute pulmonary embolism Cardiac arrest CKD (chronic kidney disease) stage 3, GFR 30-59 ml/min Sjogren's disease Leg pain, bilateral Elevated serum creatinine COPD (chronic obstructive pulmonary disease) HTN (hypertension) Rheumatoid arthritis Chronic ulcer of leg Surgical History History of ankle surgery History of hernia repair History of left knee replacement Family History Sister Breast cancer Father Aneurysm Mother Angina at rest Other No family history of coronary artery disease Social History Household Members: Spouse Housing: House Do you presently have visiting nurse or other home services: No Alcohol intake: current Alcohol intake frequency: holidays/special occasions only Comment: restraints Patient Tobacco Use Status: Never used Tobacco Tobacco use type: Cigarette Cigarette Packs Per Day: 1 Years Smoked: quit + years e-Cigarette/Vaping Use: Never Used Advance Directives Date on File: 12/23/21 service: Yes Current occupational status: retired Cognitive needs: Yes (cane) Hearing needs: No Vision needs: Yes (Pt wear glasses. ) Review of Systems Const All systems reviewed & are unremarkable except as noted in HPI and below Physical Exam Vital Signs: Last Vital Signs Pulse 73 05/22/24 10:52 BP 132/76 05/22/24 10:52 Pulse Ox 98 05/22/24 10:52 Oxygen Delivery Method Room Air 05/22/24 10:52 BMI result Body Mass Index 28.7 General: Appears afebrile. Alert and oriented. Mood and affect appropriate. Follows and participates in conversation appropriately. Respiratory effort is unlabored. No cough. Sitting comfortably in the wheelchair. Difficulty standing on LLE due to increase in pain. Left lower leg with dressing, dry and intact. Healing wounds RLE. Resp Effort & Inspection: normal respiratory effort, able to speak in complete sentences, no cough, no respiratory distress and No symmetric chest movement GI Inspection: Yes normal to inspection Palpation (GI): Soft to palpation, nontender and no guarding Psych Appearance: grossly normal and well kempt Mental Status: mental status grossly normal Speech and movement: Normal speech and movement present and Clear speech present Affect: normal affect Attitude: cooperative Thought process: Normal thought process present Thought content: Normal thought content present, suicidality (none), no hallucinations and Depressive thoughts present Insight: Good insight present (Psych) Judgement: Good judgement present (Psych) Results Reviewed Results Reviewed: Assessment & Plan Assessment & Plan (1) Non-healing wound of left lower extremity: Code(s): S81.802A - Unspecified open wound, left lower leg, initial encounter Category: Medical (2) Chronic pain of left lower extremity: Code(s): M79.605 - Pain in left leg; G89.29 - Other chronic pain Category: Medical (3) Peripheral neuropathy: Code(s): G62.9 - Polyneuropathy, unspecified Category: Medical (4) Pyoderma gangrenosum: Code(s): L88 - Pyoderma gangrenosum Category: Medical (5) Chronic, continuous use of opioids: Code(s): F11.90 - Opioid use, unspecified, uncomplicated Category: Medical Plan Patient has shown accountability for his medication regimen and the pill count was accurate. There is no evidence of misuse, abuse or diversion at this time. [employer] reviewed. Script for hydromorphine 2 mg bid-tid prn with advanced date of 05/29/24 for wound care/dressing changes and moderate-severe pain as needed. Continue duloxetine at pm, gabapentin 600 mg in am and 800 at pm and Tylenol prn. Script for hydromorphine resent to [facility] per patient due to shortage of medication at [facility] pharmacy. [facility]. Patient noted improvement in LLE wound healing with doxycycline use for recent COPD/bronchitis hospitalization and was told per Dermatology to continue it. However, developed nausea, heartburn and diarrhea after week of taking it. He has paused it. Will send script of probiotics and encourage patient to follow up with Dermatology for further recommendations. All questions were answered and the patient is in agreement with the plan. Follow up in 4-5 weeks for a pill count or sooner if needed. Medications: New 2 Lactobac. rhamnosus GG-inulin 20 billion cell -200 mg (Culturelle Ultimate) 1 cap PO DAILY 2 weeks 14 caps 1RF Changed 2 From hydromorphone Partial Fill upon patient request. 2 mg PO DAILY PRN Pain, Moderate (Pain Scale 4-6 G89.29 - Other chronic pain, M79.605 - Pain in left leg, S81.802A - Unspecified open wound, left lower leg, initial encounter To hydromorphone Partial Fill upon patient request. 2 mg PO DAILY 30 days PRN 60 tabs 0RF Pain, Moderate (Pain Scale 4-6 G89.29 - Other chronic pain, M79.605 - Pain in left leg, S81.802A - Unspecified open wound, left lower leg, initial encounter Refilled 2 hydromorphone Partial Fill upon patient request. 2 mg PO DAILY 30 days PRN 60 tabs 0RF Pain, Moderate (Pain Scale 4-6 G89.29 - Other chronic pain, M79.605 - Pain in left leg, S81.802A - Unspecified open wound, left lower leg, initial encounter hydromorphone Partial Fill upon patient request. 2 mg PO DAILY 30 days PRN 60 tabs 0RF Pain, Moderate (Pain Scale 4-6 G89.29 - Other chronic pain, M79.605 - Pain in left leg, S81.802A - Unspecified open wound, left lower leg, initial encounter Coding Level of Care Code Est Pt Level 4 (86572) Complex EM visit Add On G2211 Diagnoses Non-healing wound of left lower extremity S81.802A Chronic pain of left lower extremity M79.605; G89.29 Peripheral neuropathy G62.9 Pyoderma gangrenosum L88 Chronic, continuous use of opioids F11.90
[2024-05-22 10:52] VITALS: BP 132/76; PULSE 73; O2SAT 98; BMI 28.7
== END 2024-05-22 11:19 | disposition home or self-care (01) ==
PROVIDERS: PCP Internal Medicine; Visit Provider Nurse Practitioner Family
DX: G89.29 Other chronic pain (principal); S81.802A Unspecified open wound, left lower leg, initial encounter; M79.605 Pain in left leg; Z79.891 Long term (current) use of opiate analgesic; G62.9 Polyneuropathy, unspecified; L88 Pyoderma gangrenosum
CPT/HCPCS: 99214; G2211

== ENCOUNTER → 2024-05-22 10:41 | Outpatient (BNVA) | payer MEDICARE, SELFPAY | PROVIDERS: PCP Internal Medicine; Visit Provider Nurse Practitioner Family | DX: S81.802A Unspecified open wound, left lower leg, initial encounter (principal); X58.XXXA Exposure to other specified factors, initial encounter; Y93.9 Activity, unspecified; Y92.9 Unspecified place or not applicable; Y99.9 Unspecified external cause status; M79.605 Pain in left leg; G89.29 Other chronic pain; G62.9 Polyneuropathy, unspecified; L88 Pyoderma gangrenosum; Z79.891 Long term (current) use of opiate analgesic | CPT/HCPCS: 99212 ==

== ENCOUNTER 2024-06-16 09:30 | Outpatient (REF) | payer MEDICARE, SELFPAY ==
--- NOTE | 2024-06-16 09:39 | PFT_ITS ---
Flows: FEV1: 66 % of predicted at 1.68 L FVC: 92 % of predicted at 3.14 L FEV1/FVC: 54 % Bronchodilator response: Present in small to medium airways only Volumes: Total lung capacity: 81 % of predicted at 4.98 L Residual volume: 73 % of predicted at 1.77 L Slow vital capacity: 90 % of predicted at 3.21 L Expiratory reserve volume: 80 % of predicted at 0.80 L Diffusion capacity: Moderately decreased Impression: Moderate obstructive ventilatory defect with bronchodilator response present in small to medium airways only. Decreased diffusion capacity suggests emphysema. MTDD
[2024-06-16 11:28] VITALS: PULSE 87; O2SAT 91
== END 2024-06-16 09:31 | disposition home or self-care (01) ==
LOC: HO.RESP 09:30
PROVIDERS: PCP Internal Medicine; Visit Provider Nurse Practitioner Family
DX: J44.9 Chronic obstructive pulmonary disease, unspecified (principal)
CPT/HCPCS: 94010; 94640; 94727; 94729

== ENCOUNTER → 2024-06-16 09:39 | Outpatient (BNV) | payer MEDICARE, SELFPAY | PROVIDERS: PCP Internal Medicine; Visit Provider Internal Medicine Pulmonary Disease | DX: J44.9 Chronic obstructive pulmonary disease, unspecified (principal) | CPT/HCPCS: 94060; 94727; 94729 ==

== ENCOUNTER 2024-06-26 09:19 | Outpatient (AMB) | payer MEDICARE, SELFPAY ==
--- NOTE | 2024-06-26 09:20 | MHC.OFFVIS ---
Vital Signs 06/26/24 09:33 Height 5 ft 6 in Weight 180 lb BMI 29.0 BP 140/91 H Blood Pressure Location Rt brachial Position Sitting Pulse 81 Pulse Source Pulse Oximeter Pulse Oximetry (%) 96 Oxygen Delivery Method Room Air Intake Visit Reasons: PILL COUNT Intake Note: Sarath comes in today for a pill count to hydromorphone, patient should have 3 tablets and presents with 28 tablets which he last took yesterday 06/25/24 at 1pm. Pain today 02/18 Dedicated Intermodal Truck Driver Required: No Accompanied by: Self / Same As Patient Allergies heparin (porcine) Allergy (Severe, Verified 06/26/24 09:35) HIT HPI Comments Details: Patient presents today for a pill count. Patient is supposed to have #3 pills, in his possession has #28 pills. Reports pain due to increased wound drainage and cold weather. Patient takes hydromorphine mainly during wound care and dressing changes in clinic and home. Patient reports mild to moderate analgesia with current medication regime. He continues to take gabapentin, duloxetine and Tylenol. He reports left wound has slightly improved with prednisone and antibiotic during recent hospitalization for COPD exacerbation in April and since then has continued on prednisone per dermatology. Denies any fever, chills, weight loss, bleeding, weakness, dizziness, shortness of breaths, constipation, nausea, sedation, urinary retention or abdominal pain. [facility] Medical History MDD (major depressive disorder), single episode Pressure injury of buttock, stage 1 Deep vein thrombosis 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 Acute pulmonary embolism with acute cor pulmonale Acute pulmonary embolism Cardiac arrest CKD (chronic kidney disease) stage 3, GFR 30-59 ml/min Sjogren's disease Leg pain, bilateral Elevated serum creatinine COPD (chronic obstructive pulmonary disease) HTN (hypertension) Rheumatoid arthritis Chronic ulcer of leg Surgical History History of ankle surgery History of hernia repair History of left knee replacement Family History Sister Breast cancer Father Aneurysm Mother Angina at rest Other No family history of coronary artery disease Social History Household Members: Spouse Housing: House Do you presently have visiting nurse or other home services: No Alcohol intake: current Alcohol intake frequency: holidays/special occasions only Comment: restraints Patient Tobacco Use Status: Never used Tobacco Tobacco use type: Cigarette Cigarette Packs Per Day: 1 Years Smoked: quit 30+ years e-Cigarette/Vaping Use: Never Used Advance Directives Date on File: 12/23/21 service: Yes Current occupational status: retired Cognitive needs: Yes (cane) Hearing needs: No Vision needs: Yes (Pt wear glasses. ) Review of Systems Const All systems reviewed & are unremarkable except as noted in HPI and below Physical Exam Vital Signs: Last Vital Signs Pulse 81 06/26/24 09:33 BP 140/91 H 06/26/24 09:33 Pulse Ox 96 06/26/24 09:33 Oxygen Delivery Method Room Air 06/26/24 09:33 BMI result Body Mass Index 29.0 General: Appears afebrile. Alert and oriented. Mood and affect appropriate. Follows and participates in conversation appropriately. Respiratory effort is unlabored. No cough. Sitting comfortably in the wheelchair. Left lower leg with dressing, dry and intact. Resp Effort & Inspection: normal respiratory effort, able to speak in complete sentences, no cough, no respiratory distress and No symmetric chest movement GI Inspection: Yes normal to inspection Palpation (GI): Soft to palpation, nontender and no guarding Psych Appearance: grossly normal and well kempt Mental Status: mental status grossly normal Speech and movement: Normal speech and movement present and Clear speech present Affect: normal affect Attitude: cooperative Thought process: Normal thought process present Thought content: Normal thought content present, suicidality (none), no hallucinations and Depressive thoughts present Insight: Good insight present (Psych) Judgement: Good judgement present (Psych) Results Reviewed Results Reviewed: Assessment & Plan Assessment & Plan (1) Non-healing wound of left lower extremity: Code(s): S81.802A - Unspecified open wound, left lower leg, initial encounter Category: Medical (2) Chronic pain of left lower extremity: Code(s): M79.605 - Pain in left leg; G89.29 - Other chronic pain Category: Medical (3) Peripheral neuropathy: Code(s): G62.9 - Polyneuropathy, unspecified Category: Medical (4) Pyoderma gangrenosum: Code(s): L88 - Pyoderma gangrenosum Category: Medical (5) Chronic, continuous use of opioids: Code(s): F11.90 - Opioid use, unspecified, uncomplicated Category: Medical Plan Patient has shown accountability for his medication regimen and the pill count was accurate. There is no evidence of misuse, abuse or diversion at this time. [employer] reviewed. Will hold off script for hydromorphine 2 mg bid-tid prn due to surplus in pill count today, he takes it for wound care/dressing changes and moderate-severe pain as needed. Continue duloxetine at pm, gabapentin 600 mg in am and 800 at pm and Tylenol prn. [facility]. Patient noted improvement in LLE wound healing with doxycycline and prednisone use for recent COPD/bronchitis hospitalization and was told per Dermatology to continue with prednisone. All questions were answered and the patient is in agreement with the plan. Follow up in 4-5 weeks for a pill count or sooner if needed. Coding Level of Care Code Est Pt Level 3 (97811) Complex EM visit Add On G2211 Diagnoses Non-healing wound of left lower extremity S81.802A Chronic pain of left lower extremity M79.605; G89.29 Peripheral neuropathy G62.9 Pyoderma gangrenosum L88 Chronic, continuous use of opioids F11.90
--- OUTSIDE RECORDS SUMMARY | 2024-06-26 09:21 | XMS_ITS | Encounter Summary ---
Author Name [facility] [place] Address [address] [place] [address] Care Team Providers Care Application Dba Name Role Phone LYDIA MG Primary Care Provider VALENTÍN Borjas Primary Care Provider Unavail able Insurance Providers: All historical and current Section Date Range: From patient's date of to the date document was created. This section includes the names of all active insurance providers for the patient. Insurance Provider Type of Coverage Plan Name Start of Policy Coverage End of Policy Coverage Group Number Member ID Insurance Provider's Telephone Number Policy Holland's Name Patient's Relationship to Policy Holland [facility]) [facility]IC[facility] ADVANTAGE [facility] ([facility]) Jul 12, 2023 [id number] [phone] [place] PAT[place] AET[place] [facility] (WNR) MEDICARE [facility] ([facility]) Jul 12, 2023 [id number] [phone] [place] PAT[place] AETNA [facility] (WNR) MEDICARE [facility] (R) Jul 12, 2019 [id number] S [place] [facility]) MEDICARE ADVANTAGE [facility] ([facility]) Jul 12, 2018 [id number] S [place] PAT[place] AETNA [facility] (WNR) MEDICARE ADVANTAGE [facility] (R) Jul 12, 2018 [id number] [phone] [place] PAT[place] [employer] [facility] (WNR) MEDICARE ADVANTAGE [facility] ([facility]) Sep 09, 2017 [id number] [place] PAT[place] [employer]OSS [facility] (WNR) MEDICARE ADVANTAGE [facility] (R) Jul 12, 2017 [id number] [place] PAT[place] Selected Encounter This section includes the information on record at [place] for the Encounter. Date/Time Encounter Type Encounter Description Reason Pro vider Source Aug 10, 2023 01:14 PM Outpatient Encounter ADMIN PAT ACTIVTIES (MASNONCT) IHE Encounter Template Text not used by [place] Plan of Treatment: Future Appointments (+ 6 months) and Future Tests (+/- 45 days) The Plan of Treatment section includes future care activities for the patient from all [place] treatmentfacilities. This section includes future appointments and future orders which are active, pending or scheduled. Future Appointments This section includes appointments that were scheduled to occur 6 months from the date of the Encounter, up to a maximum of 20 appointments. The data comes from all [place] treatment facilities. Appointment Date/Time Appointment Type Appointme nt Facility Name Sep 21, 2023 01:00 PM AMBULATORY [place]RY [place] [facility] [place] [facility] Oct 22, 2023 01:00 PM AMBULATORY - MEDICINE [place] [facility] [place] [facility] Oct 25, 2023 02:30 PM AM[place]ULATORY [place]ICINE [place] [facility] [place] [facility] Oct 25, 2023 03:00 PM AM[place]ULATORY - MEDICINE [place] [facility] [place] [facility] Oct 25, 2023 04:15 PM AM[place]ULATORY - [place]ICINE [place] [facility] [place] [facility] November 10, 2023 08:00 AM AMBULATORY - MEDICINE [place] [facility] [place] [facility] Jan 24, 2024 11:00 AM AMBULATORY - NONE [place] [facility] [place] [facility] Social History: Smoking Status (Most current) and Tobacco Use (All prior to encounter date) This section includes the most current, and the historical, smoking and tobacco- related health factors from the [place] facility where the Encounter took place. Current Smoking Status This section includes the most current smoking, or tobacco-related health factor, from the [place] facility where the Encounter took place. Date/Time Current Smoking Status Comment Facil ity Jan 22, 2023 01:30 PM VA-TOBACCO FORMER USER [facility] Tobacco Use History This section includes a history of the smoking, or tobacco-related health factors, that were collected on or before the date of the Encounter. The data comes from the [place] facility where the Encounter took place. Date/Time Smoking Status/Tobacco Use Comment F acility Jan 22, 2023 01:30 PM [place]-TOBACCO QUIT 5 TO < 15 YRS [facility] Feb 17, 2022 04:37 PM VA-TOBACCO FORMER USER [facility] Feb 17, 2022 04:37 PM [place]-TOBACCO QUIT 1 TO < 5 YRS [facility] Advance Directives: All historical and current Section Date Range: From patient's date of to the date document was created. This section includes ALL of a patient's completed or amended [place] Advance and Rescinded Directives. The entries below indicate that a directive exists for the patient, but an actual copy is not included with this document. The data comes from all [place] facilities. Date Advance Directives Provider Source Oct 26, 2023 ADVANCE DIRECTIVE MARGARITA KRAFT [facility] Encounter Notes: All associated encounter notes This section contains the clinical notes associated to the Encounter. Date/Time Encounter Note(s) Provider Source Aug 10, 2023 01:14 PM ADMINISTRATIVE NOT E: LOCAL TITLE: CCC: SCHEDULING ADMINISTRATION STANDARD TITLE: ADMINISTRATIVE NOTE DATE OF NOTE: AUG 10, 2023@13:14:54 ENTRY DATE: AUG 10, 2023@13:14:54 AUTHOR: ROSALBA FLYNN COSIGNER: URGENCY: STATUS: COMPLETED CCC: SCHEDULING ADMINISTRATION Has ADDENDA Patient Demographics Patient Name: VALENTÍN JEROME Patient Primary Phone: [phone] Patient Primary Address: [address] [place] [address] Patient : 1945 Patient Age: 77 Caller/Recipient Relation to Patient: Self Administrative Administrative Note Reason: Medication Renewal Medications Refill/Renewal Request: Vet on phone with . Inform switch getting wound care [facility] received 2 box dressing: DRESSING,MEPILEX BORDR [id number]. This dressing is for buttocks area for bed with tape. VEt said this is the incorrect item. The dressing they need is for L foot. Vet/ explain they are requesting : Hydrolock SA , 6'x10' pad size 4.7'x 8.7' is Super absorbent wound dressing with gel core and water proof backing, no tape. Understand if [facility] may not have same brand and a dressing comparable is requested for L leg. Requesting to leaf size picker at [facility] pharmacy window Vet and are available for call back /es/ ROSALBA FLYNN Signed: 08/10/2023 13:15 Receipt Acknowledged By: 08/10/2023 14:47 /es/ JOSHUA YANEZ RN REGISTERED NURSE 08/11/2023 20:13 /es/ ANDRES YATES NP NURSE PRACTITIONER for VALENTÍN MORANBEBE 08/10/2023 ADDENDUM STATUS: COMPLETED Sent fax to Wound provider with above request. /flor/ JOSHUA YANEZ RN REGISTERED NURSE Signed: 08/10/2023 14:47 08/10/2023 ADDENDUM STATUS: COMPLETED Called [place] and discussed other options for the wound care, does not appear that we have access to the first choice but to carry ZETUVIT which they have used before when they were unable to get Hydrolock but will need 2 per dressing change of the 4x4 size but cannot use this products though with border tape and needs to be super adsorbent. Found two other options that would fit [facility]'s needs, all NF. Did also send fax to [facility] provider but they are unlikely to know what we have. Abdominal pad is not used for wound but to catch excess below wound. Allevyn gentle border is for separate wound on calf. /flor/ JOSHUA YANEZ RN REGISTERED NURSE Signed: 08/10/2023 15:26 Receipt Acknowledged By: 08/11/2023 20:04 /flor/ ANDRES YATES, JAMIE NURSE PRACTITIONER for [facility] JORDAN
--- OUTSIDE RECORDS SUMMARY | 2024-06-26 09:21 | XMS_ITS | Encounter Summary ---
Author Name [facility] [place] [facility] [place] Organization [place] Address [address] [place] [id number] Care Team Providers Care Ell Teacher Name Role Phone LYDIA MG Primary Care [...] Holland's Name Patient's Relationship to Policy Holland [facility] ([facility]) Jul 12, 2023 [id number] [phone] [place] PATIENT AETNA [facility] (WNR) MEDICARE ADVANTAGE [facility] ([facility]) Jul 12, 2023 [id number] [phone] [place] PATIENT AETNA [facility] (WNR) MEDICARE [facility] ([facility]) Jul 12, 2019 [id number] S [place] [facility] ([facility]) Jul 12, 2018 [id number] S [place] PATIENT AETNA [facility] ([facility]) MEDICARE ADVANTAGE [facility] ([facility]) Jul 12, 2018 [id number] [phone] [place] PATIENT [place] [employer] [facility] (WNR) MEDICARE ADVANTAGE [facility] ([facility]) Sep 09, 2017 [id number] [place] PATIENT [place] [employer] [facility] (WNR) MEDICARE ADVANTAGE [facility] ([facility]) Jul 12, 2017 [id number] [place] PAT[place] Selected Encounter This section includes the information on record at [place] for the Encounter. Date/Time Encounter Type Encounter Description Reason Provider Source Aug 16, 2023 01:56 PM QNHP OL DIG ASSMT&MGMT 5-10 CLINICAL PHARMACY ICD-10-CM S91.009A Unspecified open wound, unspecified ankle, initial encounter AKIRA MAURICE [place] Encounter Template Text not used by [place] Assessments - Encounter Diagnoses This section includes the primary and secondary diagnoses documented for the Encounter. Date/Time Primary/Secondary Diagnosis Diagnosis Name Provider Source Aug 16, 2023 02:13 PM PRIMARY Unspecified open wound, unspecified ankle, initial encounter AKIRA MAURICE [facility] Plan of Treatment: Future Appointments (+ 6 months) and Future Tests (+/- 45 days) The Plan of Treatment section includes future care activities for the patient from all [place] treatmentfacilities. This section includes future appointments and future orders which are active, pending or scheduled. Future Appointments This section includes appointments that were scheduled to occur 6 months from the date of the Encounter, up to a maximum of 20 appointments. The data comes from all [place] treatment facilities. Appointment Date/Time Appointment Type Appointme nt Facility Name Sep 21, 2023 01:00 PM [facility] [place] [facility] Oct 22, 2023 01:00 PM [facility] Oct 25, 2023 02:30 PM [facility] Oct 25, 2023 03:00 PM [facility]ULATORY - MEDICINE [place] [facility] [place] [facility] Oct 25, 2023 04:15 PM AMBULATORY - MEDICINE [place] [facility] [place] [facility] November 10, 2023 08:00 AM AMBULATORY - MEDICINE [place] [facility] [place] [facility] Jan 24, 2024 11:00 AM AMBULATORY - NONE [place] [facility] Advance Directives: All historical and current Section Date Range: From patient's date of to the date document was created. This section includes ALL of a patient's completed or amended [place] Advance and Rescinded Directives. The entries below indicate that a directive exists for the patient, but an actual copy is not included with this document. The data comes from all [place] facilities. Date Advance Directives Provider Source Oct 26, 2023 ADVANCE DIRECTIVE MARGARITA KRAFT [place] [facility] Encounter Notes: All associated encounter notes This section contains the clinical notes associated to the Encounter. Date/Time Encounter Note(s) Provider Source Aug 17, 2023 08:04 AM ADDENDUM: LOCAL TITLE: Addendum STANDARD TITLE: ADDENDUM DATE OF NOTE: AUG 17, 2023@08:04:27 ENTRY DATE: AUG 17, 2023@08:04:28 AUTHOR: LUZMA MAURICE EXP COSIGNER: URGENCY: STATUS: COMPLETED Hydralock dressings are now available in the drug file for ordering and have been approved for pt. Per recent notes: Vet/ explain they are requesting : Hydrolock SA , 6'x10' pad size 4.7'x 8.7' is Super absorbent wound dressing with gel core and water proof backing, no tape. Dressing can be found under the following: DRESSING,HYDRALOCK DRESSING,TOP NF 1 DRESSING DRESSING,HYDRALOCK SA 6IN X 10IN #[id number] NF Thank you! /flor/ Luzma Maurice, PharmD, BCPS Clinical Physical Therapy Aide Signed: 08/17/2023 08:08 Receipt Acknowledged By: 08/17/2023 10:08 /es/ JOSHUA YAENZ RN REGISTERED NURSE 08/17/2023 09:21 /flor/ ANDRES YATES NP NURSE PRACTITIONER for VALENTÍN SAHA --- Original Document --- 08/16/23 CONSULT REPORT/NON FORMULARY PADR: The medical record has been reviewed with regard to this restricted drug request. This prior authorization drug request originated with a [facility] provider. Medication requested: DRESSING,HYDRALOCK SA 6X10 Medication indication: LE wound Medical history relevant to this request: Pt requires the use of an absorbent dressing without tape. Pt is following with wound care and has used the following: Hydrolock SA, 6'x10' pad size 4.7'x 8.7' is Super absorbent wound dressing with gel core and water proof backing, no tape. Reviewed with PACT RN. Requesting for pharmacy to have the above product entered into our drug file for ordering. This is preferred to currently pending order. Will therefore discontinue pending dressing for CONVAMAX SUPERABSORB and will alert PACT Team when Hydralock dressing can be ordered (have asked for this to be entered JOSE) The request is APPROVED - No formulary-preferred alternative /flor/ Luzma Maurice, Mirella, [facility] Clinical Physical Therapy Aide Signed: 08/16/2023 14:13 LUZMA MAURICE [facility] Aug 16, 2023 01:56 PM MEDICATION MGT CON SULT: LOCAL TITLE: CONSULT REPORT/NON FORMULARY PADR STANDARD TITLE: MEDICATION MGT CONSULT DATE OF NOTE: AUG 16, 2023@13:56 ENTRY DATE: AUG 16, 2023@13:56:08 AUTHOR: LUZMA MAURICE EXP COSIGNER: URGENCY: STATUS: COMPLETED CONSULT REPORT/NON FORMULARY PADR Has ADDENDA The medical record has been reviewed with regard to this restricted drug request. This prior authorization drug request originated with a [facility] provider. Medication requested: DRESSING,HYDRALOCK SA 6X10 Medication indication: LE wound Medical history relevant to this request: Pt requires the use of an absorbent dressing without tape. Pt is following with [facility] wound care and has used the following: Hydrolock SA, 6'x10' pad size 4.7'x 8.7' is Super absorbent wound dressing with gel core and water proof backing, no tape. Reviewed with PACT RN. Requesting for pharmacy to have the above product entered into our drug file for ordering. This is preferred to currently pending order. Will therefore discontinue pending dressing for CONVAMAX SUPERABSORB and will alert PACT Team when Hydralock dressing can be ordered (have asked for this to be entered JOSE) The request is APPROVED - No formulary-preferred alternative /flor/ Luzma Maurice PharmD, [facility] Clinical Physical Therapy Aide Signed: 08/16/2023 14:13 08/17/2023 ADDENDUM STATUS: COMPLETED Hydralock dressings are now available in the drug file for ordering and have been approved for pt. Per recent notes: Vet/ explain they are requesting : Hydrolock SA , 6'x10' pad size 4.7'x 8.7' is Super absorbent wound dressing with gel core and water proof backing, no tape. Dressing can be found under the following: DRESSING,HYDRALOCK DRESSING,TOP NF 1 DRESSING DRESSING,HYDRALOCK SA 6IN X 10IN #[id number] NF Thank you! /flor/ Luzma Maurice PharmD, [facility] Clinical Physical Therapy Aide Signed: 08/17/2023 08:08 Receipt Acknowledged By: * AWAITING SIGNATURE * JOSHUA YANEZ * AWAITING SIGNATURE * VALENTÍN SAHA KRISTIE J [place]
--- OUTSIDE RECORDS SUMMARY | 2024-06-26 09:21 | XMS_ITS ---
Author Name [facility] [place] [facility] Address [address] [place] [id number] Care Team Providers Care Practical Nurse Name Role Phone LYDIA MG Primary Care [...] Holland's Name Patient's Relationship to Policy [place] [facility]IC[facility] ADVANTAGE MCR ([place]) Jul 12, 2023 [id number] [phone] BRANDAN,W[place] LLIAM PATIENT AETNA [facility] ([place]) MEDICARE [facility] ([place]) Jul 12, 2023 [id number] [phone] BRANDAN,WI LLIAM PATIENT AETNA [facility] ([place]) MEDICARE [facility] ([place]) Jul 12, 2019 [id number] BRANDAN,WI LLIAM PATIENT [facility] MEDICARE ADVANTAGE MCR ([place]) Jul 12, 2018 [id number] BRANDAN,NM LLIAM PATIENT AETNA MCR ([place]) MEDICARE [facility] (R) Jul 12, 2018 [id number] [phone] BRANDAN,WI LLIAM PATIENT EMPIRE [employer] MCR ([place]) MEDICARE [facility] (R) Sep 09, 2017 [id number] [phone] BRANDAN,WI LLIAM PATIENT E[employer]IRE [employer] MCR ([place]) MEDICARE ADVANTAGE MCR ([place]) Jul 12, 2017 [id number] BRANDAN,NM LLIAM PATIENT Selected Encounter This section includes the information on record at [place] for the Encounter. Date/Time Encounter Type Encounter Description Reason Provider Source Sep 21, 2023 01:57 PM Outpatient En[facility] Encounter Template Text not used by [place] Plan of Treatment: Future Appointments (+ 6 months) and Future Tests (+/- 45 days) The Plan of Treatment section includes future care activities for the patient from all [place] [facility] This section includes future appointments and future orders which are active, pending or scheduled. Future Appointments This section includes appointments that were scheduled to occur 6 months from the date of the Encounter, up to a maximum of 20 appointments. The data comes from all [place] treatment facilities. Appointment Date/Time Appointment Type Appointme nt Facility Name Oct 22, 2023 01:00 PM AM[place]ULATORY [place]ICINE [place] [facility] [place] [facility] Oct 25, 2023 02:30 PM AM[place]ULATORY [place]IC[place] [facility] [place] [facility] Oct 25, 2023 03:00 PM AM[place]ULATORY [place]IC[place] [facility] [place] [facility] Oct 25, 2023 04:15 PM AMBULATORY - [place]ICINE [place] [facility] [place] [facility] November 10, 2023 08:00 AM AMBULATORY - [place]ICINE [place] [facility] [place] [facility] Jan 24, 2024 11:00 AM AMBULATORY - NONE [place] [facility] [place] [facility] Lab Results: +/- 30 days of the encounter This section includes the Chemistry and Hematology Lab Results on record with [place] for the patient. Radiology Reports and Pathology Reports are provided separately, in subsequent sections. Lab Results This section contains the Chemistry/Hematology Results that were resulted 30 days before or 30 daysafter the date of the Encounter. Date/Time Source Result Type Result - Unit Interpretation Reference Range Comment Oct 15, 2023 11:06 AM [facility] BASIC METABOLIC PANEL (fasting) Specimen Type: SERUM No comment entered. Ordering Provider: PO SAHA Report Released Date/Time: Oct 15, 2023 11:05 AM Reporting Lab: [facility] [address] [facility] [address] Performing Lab: [address] [address] UREA NITROGEN 18 mg/dL 7-25 GLUCOSE 95 mg/dL 65-100 SODIUM 141 mmol/L 135-145 POTASSIUM 4.2 mmol/L 3.5-5.0 CHLORIDE 106 mmol/L 100-110 CO2 25 meq/L 20-30 CREATININE, Serum 1.37 mg/dL 0.50-1.40 eGFR(CKD-EPI 2020) 53 mL/min L >60 Oct 15, 2023 11:06 AM [facility] LIVER FUNCTION Specimen Type: SERUM No comment entered. Ordering Provider: PO SAHA Report Released Date/Time: Oct 15, 2023 11:05 AM Reporting Lab: [facility] [address] [facility] [facility] [address] Performing Lab: [address] [address] PROTEIN,TOTAL 7.1 g/dL 6.0-8.3 ALBUMIN 3.8 g/dL 3.5-5.0 ALKALINE PHOSPHATASE 50 U/L 40-150 AST 15 U/L 5-34 ALT 26 U/L BILIRUBIN, TOTAL 0.5 mg/dL 0.2-1.2 Oct 15, 2023 11:06 AM [facility] LIPID PANEL FASTING Specimen Type: SERUM No comment entered. Ordering Provider: PO SAHA Report Released Date/Time: Oct 15, 2023 11:05 AM Reporting Lab: [facility] [address] [address] Performing Lab: [facility] [address] [address] CHOLESTEROL 179 mg/dL TRIGLYCERIDE 123 mg/dL 0-150 LDL calculated 111 mg/dL 0-129 CHOL/HDL 4.2 HDL CHOLESTEROL 43 mg/dL 40-60 Oct 15, 2023 11:06 AM [facility] IRON & TIBC PANEL Specimen Type: SERUM No comment entered. Ordering Provider: PO SAHA Report Released Date/Time: Oct 15, 2023 11:05 AM Reporting Lab: [address] [address] Performing Lab: [address] [address] TIBC 338 ug/dL 204-475 IRON 51 ug/dL 40-160 Transferrin Saturation 15.1 L 20.0-50.0 Oct 15, 2023 11:06 AM [facility] CBC AND DIFF (AUTO) Specimen Type: BLOOD No comment entered. Ordering Provider: PO SAHA Report Released Date/Time: Oct 15, 2023 11:05 AM Reporting Lab: [facility] [address] [address] Performing Lab: [address] [address] WBC 6.76 10*3/uL 4.50-11.00 RBC 5.57 10*6/uL 4.23-5.66 HGB 14.9 g/dL 12.8-17 HCT 47.5 39.2-50.4 MCV 85.3 fL 82-99 MCHC 31.4 g/dL 30.8-35.1 PLT 243 10*3/uL 140-360 RDW-CV 15.0 12.0-16.0 Clark, Abs 0.49 10*3/uL 0.30-1.10 MCH 26.8 pg 26.2-32.6 Neut % 67.8 43.7-75.8 Lymph % 21.9 14.0-42.3 Clark % 7.2 5.1-13.7 Eos % 2.1 0.4-6.8 Baso % 0.6 0.1-2.0 Neut, Abs 4.58 10*3/uL 2.20-7.60 Lymph, Abs 1.48 10*3/uL 1.00-3.20 Eos, Abs 0.14 10*3/uL 0.03-0.44 Baso, Abs 0.04 10*3/uL 0.01-0.13 Immature Gran % 0.4 0.0-0.7 Immature Gran, Abs 0.03 10*3/uL 0.00-0.06 Social History: Smoking Status (Most current) and Tobacco Use (All prior to encounter date) This section includes the most current, and the historical, smoking and tobacco- related health factors from the [place] facility where the Encounter took place. Current Smoking Status This section includes the most current smoking, or tobacco-related health factor, from the [place] facility where the Encounter took place. Date/Time Current Smoking Status Comment Facil ity Jan 22, 2023 01:30 PM [place]-TOBACCO QUIT 5 TO < 15 YRS [facility] Tobacco Use History This section includes a history of the smoking, or tobacco-related health factors, that were collected on or before the date of the Encounter. The data comes from the [place] facility where the Encounter took place. Date/Time Smoking Status/Tobacco Use Comment F acility Jan 22, 2023 01:30 PM [place]-TOBAC[place] QUIT 5 TO < 15 YRS [facility] Feb 17, 2022 04:37 PM [place]AC[place] [facility] Feb 17, 2022 04:37 PM [place]-TOBACCO QUIT 1 TO < 5 YRS [facility] Advance Directives: All historical and current Section Date Range: From patient's date of to the date document was created. This section includes ALL of a patient's completed or amended [place] Advance and Rescinded Directives. The entries below indicate that a directive exists for the patient, but an actual copy is not included with this document. The data comes from all [place] facilities. Date Advance Directives Provider Source Oct 26, 2023 ADVANCE DIRECTIVE [facility] K[facility]FT [facility] Encounter Notes: All associated encounter notes This section contains the clinical notes associated to the Encounter. Date/Time Encounter Note(s) Provider Source Sep 21, 2023 02:12 PM MENTAL HEALTH DIAG NOSTIC STUDY NOTE: LOCAL TITLE: MENTAL HEALTH DIAGNOSTIC STUDY STANDARD TITLE: MENTAL HEALTH DIAGNOSTIC STUDY NOTE DATE OF NOTE: SEP 21, 2023@14:12:52 ENTRY DATE: SEP 21, 2023@14:12:52 AUTHOR: POLINA HANDY EXP COSIGNER: URGENCY: STATUS: COMPLETED Garza Anxiety Inventory Date Given: 09/21/2023 Clinician: Polina Handy Location: [facility] Fearing Plessis: Valentín Gipson SSN: [id number] : [birth year]) Gender: Man NAA Score: 0 indicates minimal anxiety. The overall range is 0 to 63 with minimal anxiety between 0 - 7. 0-7 Minimal level of anxiety 8-15 Mild anxiety 16-25 Moderate anxiety 26-63 Severe anxiety Questions and answers 1. Not at all(0 points) 2. Not at all(0 points) 3. Not at all(0 points) 4. Not at all(0 points) 5. Not at all(0 points) 6. Not at all(0 points) 7. Not at all(0 points) 8. Not at all(0 points) 9. Not at all(0 points) 10. Not at all(0 points) 11. Not at all(0 points) 12. Not at all(0 points) 13. Not at all(0 points) 14. Not at all(0 points) 15. Not at all(0 points) 16. Not at all(0 points) 17. Not at all(0 points) 18. Not at all(0 points) 19. Not at all(0 points) 20. Not at all(0 points) 21. Not at all(0 points) Copyright (c) 1993 [employer] Ramon Garza. Reproduced, adapted and translated with permission of Publisher [employer] All rights reserved. Information contained in this note is based on a self-report assessment and is not sufficient to use alone for diagnostic purposes. Assessment results should be verified for accuracy and used in conjunction with other diagnostic activities and procedures. __ Garza Depression Inventory--Second Edition Date Given: 09/21/2023 Clinician: Polina Handy Location: [facility] Fearing : Valentín Gipson SSN: [id number] : [birth year]) Gender: Man BDI2 Score: 11 indicates low depression. The overall range is 0 to 63 with low depression between 0 - 13. 1 point = mild symptom level 2 points = moderate symptom level 3 points = severe symptom level Questions and answers 1. I do not feel sad. (0 points) 2. I am not discouraged about my future. (0 points) 3. I do not feel like a failure. (0 points) 4. I get as much pleasure as I ever did from the things I enjoy. (0 points) 5. I don't feel particularly guilty. (0 points) 6. I don't feel I am being punished. (0 points) 7. I feel the same about myself as ever. (0 points) 8. I am more critical of myself than I used to be. (1 point) 9. I don't have any thoughts of killing myself. (0 points) 10. I cry over every little thing. (2 points) 11. I feel more restless or wound up than usual. (1 point) 12. I am less interested in other people or things than before. (1 point) 13. I make decisions about as well as ever. (0 points) 14. I do not feel I am worthless. (0 points) 15. I have less energy than I used to have. (1 point) 16. I sleep somewhat less than usual. (1 point) 17. I am more irritable than usual. (1 point) 18. My appetite is somewhat less than usual. (1 point) 19. I can concentrate as well as ever. (0 points) 20. I get more tired or fatigued more easily than usual. (1 point) 21. I am less interested in sex than I used to be. (1 point) Second Edition (BDI-II). Copyright (c) 1995 Noah Garza. Reproduced, adapted and translated with permission of Publisher [facility] [employer] All rights reserved. Information contained in this note is based on a self-report assessment and is not sufficient to use alone for diagnostic purposes. Assessment results should be verified for accuracy and used in conjunction with other diagnostic activities and procedures. __ PCL-5 Date Given: 09/21/2023 Clinician: Polina Handy Location: [facility] Fearing Plessis: Valentín Gipson SSN: [id number] : [birth year]) Gender: Man PCL-5 Score: 27 This measure assesses an individual's perception of the distress associated with possible PTSD symptoms. It is not used to diagnose PTSD. Symptoms are rated from 0-4 in terms of distress they cause the individual. Scores that are greater than or equal to 31-33 suggest that the may meet the criteria for a PTSD diagnosis. However, it is important to use caution when using this cutoff since it is possible for some Veterans with scores lower than 31-33 to meet criteria for PTSD. Additional testing using a structured diagnostic interview, such as the Clinician Administered PTSD Scale for DSM-5, is recommended to confirm diagnostic status. Values range from 0 to 80 with higher scores indicating more probable PTSD. Questions and Answers: 1. Repeated, disturbing, and unwanted memories of the stressful experience? Moderately 2. Repeated, disturbing dreams of the stressful experience? Moderately 3. Suddenly feeling or acting as if the stressful experience were actually happening again (as if you were actually back there reliving it)? Moderately 4. Feeling very upset when something reminded you of the stressful experience? Moderately 5. Having strong physical reactions when something reminded you of the stressful experience (for example, heart pounding, trouble breathing, sweating)? Moderately 6. Avoiding memories, thoughts, or feelings related to the stressful experience? Moderately 7. Avoiding external reminders of the stressful experience (for example, people, places, conversations, activities, objects, or situations)? Moderately 8. Trouble remembering important parts of the stressful experience? Moderately 9. Having strong negative beliefs about yourself, other people, or the world (for example, having thoughts such as: I am bad, there is something seriously wrong with me, no one can be trusted, the world is completely dangerous)? Moderately 10. Blaming yourself or someone else for the stressful experience or what happened after it? A little bit 11. Having strong negative feelings such as fear, horror, anger, guilt, or shame? A little bit 12. Loss of interest in activities that you used to enjoy? A little bit 13. Feeling distant or cut off from other people? A little bit 14. Trouble experiencing positive feelings (for example, being unable to feel happiness or have loving feelings for people close to you)? A little bit 15. Irritable behavior, angry outbursts, or acting aggressively? A little bit 16. Taking too many risks or doing things that could cause you harm? A little bit 17. Being superalert or watchful or on guard? A little bit 18. Feeling jumpy or easily startled? Not at all 19. Having difficulty concentrating? Not at all 20. Trouble falling or staying asleep? A little bit Information contained in this note is based on a self-report assessment and is not sufficient to use alone for diagnostic purposes. Assessment results should be verified for accuracy and used in conjunction with other diagnostic activities and procedures. __ [place] Suicide Severity Rating Scale (C-SSRS) Date Given: 09/21/2023 Clinician: Polina Handy Location: [facility] Fearkathleen Plessis: BrandanValentín Rubens SSN: [id number] : [birth year]) Gender: Man Suicidal Ideation in Past Month: None endorsed Method/Plan/Intent in Past Month: No method, no specific plan, and no intent Suicidal Behavior: No Past Suicidal Behavior Reported CHAPPELL INDICATORS: Questions and Answers: 1. Over the past month, have you wished you were or wished you could go to sleep and not wake up? No 2. Over the past month, have you had any actual thoughts of killing yourself? No 3. Over the past month, have you been thinking about how you might do this? Not asked (due to responses to other questions) 4. Over the past month, have you had these thoughts and had some intention of acting on them? Not asked (due to responses to other questions) 5. Over the past month, have you started to work out or worked out the details of how to kill yourself? Not asked (due to responses to other questions) 6. If yes, at any time in the past month did you intend to carry out this plan? Not asked (due to responses to other questions) 7. In your lifetime, have you ever done anything, started to do anything, or prepared to do anything to end your life (for example, collected pills, obtained a gun, gave away valuables, went to the roof but didn't jump)? No 8. If yes, was this within the past 3 months? Not asked (due to responses to other questions) [place]-Suicide Severity Rating Scale (C-SSRS) ?? 2016 [facility]. Scale may be reproduced without permission. Information contained in this note is based on a self-report assessment and is not sufficient to use alone for diagnostic purposes. Assessment results should be verified for accuracy and used in conjunction with other diagnostic activities. /flor/ POLINA HANDY,PHD PSYCHOLOGIST Signed: 09/21/2023 14:29 [facility] [place] [facility]
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
--- OUTSIDE RECORDS SUMMARY | 2024-06-26 09:21 | XMS_ITS | Continuity of Care Document ---
Author Name [facility] Organization [facility] Care Team Providers Care Director Electrical Engineering Name Role Phone [facility] Unavailable Unavailable Problems Combined list of problems from Department of Defense and Veterans Affairs facilities. It does not include entries that were removed or entered in error. Problem Status Onset Date Problem Type Date of Resolution Comments Source Acute pulmonary embolism Active 2 Condition [facility] Pain Active 2 Condition [facility] COPD - Chronic Obstructive Pulmonary Disease (SCT [id number]) Active Condition [facility] Deep venous thrombosis of upper extremity Active Condition Feb 18, 2022 Entered By: MESFIN SAHA Comment: Left [facility] Depression (SCT [id number]) Active Condition [facility] Exposure to potentially hazardous substance Active Condition Oct 07, 2023 Entered By: COL BHARATHI ADAME Comment: ILIANA Screening Snomed Code connected 01/22/23 [facility] H/O: rheumatoid arthritis Active Condition [facility] Hypertension Active Condition [facility] Moderate protein-calorie malnutrition (weight for age 60-74 percent of standard) Active Condition [facility] PE - Pulmonary Embolism (SCT [id number]) Active Condition [facility] Pyoderma gangrenosum Active Condition [facility] Rheumatoid arthritis Active Condition [facility] Sjogren syndrome Active Condition [facility] Venous ulcer Active Condition [facility] Diagnosis: ICD-10-CM R52 Pain, unspecified Active Diagnosis [facility] Diagnosis: ICD-10-CM Z12.2 Encntr screen for malignant neoplasm of respiratory organs Active Diagnosis [facility] [place] [facility] Diagnosis: ICD-10-CM Z46.0 Encounter for fit/adjst of spectacles and contact lenses Active [facility] Diagnosis: ICD-10-CM H40.013 Open angle with borderline findings, low risk, bilateral Active Diagnosis [facility] Diagnosis: ICD-10-CM I10 Essential (primary) hypertension Active Diagnosis [facility] Diagnosis: ICD-10-CM J44.9 Chronic obstructive pulmonary disease, unspecified Active Diagnosis [facility] [place] [facility] Diagnosis: ICD-10-CM F43.10 Post-traumatic stress disorder, unspecified Active Diagnosis [facility] [place] [facility] Diagnosis: ICD-10-CM S91.009A Unspecified open wound, unspecified ankle, initial encounter Active Diagnosis [facility] Diagnosis: ICD-10-CM Z13.9 Encounter for screening, unspecified Active Diagnosis [facility] Diagnosis: ICD-10-CM I25.10 Athscl heart disease of [place] coronary artery w/o ang pctrs Active Diagnosis [facility] [place] [facility] Diagnosis: ICD-10-CM Z04.89 Encounter for examination and observation for oth reasons Active Diagnosis [facility] Diagnosis: ICD-10-CM M35.00 Sjogren syndrome, unspecified Active Diagnosis [facility] [place] [facility] Diagnosis: ICD-10-CM R26.89 Other abnormalities of gait and mobility Active Diagnosis [facility] [place] [facility] Diagnosis: ICD-10-CM E44.0 Moderate protein-calorie malnutrition Active Diagnosis [facility] Medications Combined list of outpatient medications from Department of Defense and Veterans Affairs facilities.Medications provided include 1) outpatient medications from the last 15 months, and 2) patient-reported medications. Medication Details Route Status Patient Instructions Prescription Expires Prescription Number Last Dispense Date Ordering Provider Order Date Order Qty Source ACETAMINOPH EN 500MG TAB TAKE TWO TABLETS BY MOUTH PRN ORAL ACTIVE VALENTÍN SAHA 2022 [facility] [place] ALBUTEROL 90MCG/ACTUA T (CFC-F) INHL,ORAL,8 .5GM DOSE COUNTER INHALE 2 PUFFS BY MOUTH EVERY 6 HOURS NEEDED RESPIR ATORY (INHAL ATION) ACTIVE VALENTÍN SAHA 2022 [facility] CALCIUM CARBONATE TAB TAKE ACTIVE [facility] [place] CHOLECALCIF MELISSA (VIT D3) TAB TAKE EVERY DAY ACTIVE [facility] [place] DULOXETINE HCL 20MG CAP,EC TAKE 1 CAPSULE BY MOUTH AT BEDTIME ORAL ACTIVE VALENTÍN SAHA 2022 [facility] ETANERCEPT 50MG INJ,SOLN INJECT UNDER THE SKIN SUBCUT ANEOUS ACTIVE [facility] [place] FAMOTIDINE TAB TAKE ACTIVE [facility] [place] FLUTICASONE PROPIONATE 50MCG/SPRAY SOLN,NASAL, 16GM INSTILL 2 SPRAYS INTO EACH NOSTRIL ONCE DAILY NASAL ACTIVE VALENTÍN SAHA 2022 [facility] [place] [facility] GABAPENTIN 300MG CAP TAKE 2 CAPSULES BY MOUTH EVERY EVENING AND TAKE 4 CAPSULES BY MOUTH AT BEDTIME ORAL ACTIVE VALENTÍN SAHA 2022 [facility] HYDROCHLORO THIAZIDE TAB TAKE EVERY DAY ACTIVE [facility] [place] HYDROMORPHO NE HCL 2MG TAB TAKE ONE TABLET BY MOUTH THREE TIMES DAILY NEEDED ORAL ACTIVE VALENTÍN SAHA 2022 [facility] [facility] IBUPROFEN TAB TAKE PRN ACTIVE [facility] [place] METOPROLOL TARTRATE 25MG TAB TAKE ONE TABLET BY MOUTH TWICE DAILY ORAL ACTIVE VALENTÍN SAHA 2022 [facility] MULTIVITAMI N & MINERALS TAB TAKE EVERY DAY ACTIVE [facility] [place] NALOXONE HCL 4MG/SPRAY SOLN,SPRAY, NASAL INSTILL 1 SPRAY ONE NOSTRIL ONE TIME PRN NASAL ACTIVE VALENTÍN SAHA 2022 [facility] PREDNISONE (LOOK ALIKE/SOUND ALIKE) TAB TAKE BY MOUTH ORAL ACTIVE [facility] [place] RIVAROXABAN 10MG TAB TAKE ONE TABLET BY MOUTH ONCE DAILY ORAL ACTIVE VALENTÍN SAHA 2022 [facility] SODIUM CHLORIDE 0.9% (PF) INJ,SYRINGE ,10ML INJECT 1 SYRINGE IV PUSH ONCE DAILY INTRAV ENOUS DISCONT INUED (EDIT) 04/28/2024 [id number] JEAN LINDQUISTI 2023 30 [facility] SODIUM CHLORIDE 0.9% (PF) INJ,SYRINGE ,10ML INJECT 1 SYRINGE IV PUSH DIRECTED BY PROVIDER INTRAV ENOUS DISCONT INUED (EDIT) 02/18/2024 [id number] 4 JEAN LINDQUISTI 2023 30 [facility] [place] SODIUM CHLORIDE 0.9% (PF) INJ,SYRINGE ,10ML INJECT 1 SYRINGE DIRECTED BY PROVIDER ONCE DAILY NOT APPLIC ABLE 04/30/2024 [id number] 4 JEAN LINDQUISTI 2023 30 [facility] [place] SODIUM CHLORIDE 0.9% (PF) INJ,SYRINGE ,10ML APPLY 1 SYRINGE TOPICALL Y DIRECTED BY PROVIDER TOPICA L 03/02/2024 [id number] 4 JEAN LINDQUISTI 2023 30 [facility] SODIUM CHLORIDE 0.9% SOLN,IRRG IRRIGATE UDP TOPICALL Y EVERY OTHER DAY TOPICA L DISCONT INUED (EDIT) 10/01/2023 [id number] 4 JEAN LINDQUISTI 2023 1000 [facility] [place] SODIUM CHLORIDE 0.9% SOLN,IRRG IRRIGATE DIRECTED TOPICALL Y EVERY OTHER DAY TOPICA L 10/03/2023 [id number] 4 JEAN LINDQUISTI 2023 1000 [facility] SODIUM CHLORIDE 0.9% SOLN,IRRG IRRIGATE DIRECTED TOPICALL Y EVERY OTHER DAY TOPICA L 08/20/2023 [id number] 4 MELISSA NDEONDAVID 2023 1000 [facility] [place] UMECLIDINIU M 62.5MCG/YARELY ANTEROL 25MCG/ACTUA T INH,ORAL,30 D INHALE 1 INHALATI ON BY MOUTH ONCE DAILY RESPIR ATORY (INHAL ATION) ACTIVE VALENTÍN SAHA 2022 [facility] [place] [facility] UPADACITINI B 15MG 24HR TAB,SA TAKE ONE TABLET BY MOUTH ONCE DAILY ORAL ACTIVE VALENTÍN SAHA 2022 [facility] [place] [facility] Allergies, Adverse Reactions, Alerts Combined list of allergies from Department of Defense and Veterans Affairs facilities. It does not include entries that were removed or entered in error. Substance Category Reaction Severity Reaction type Status Date Reported Comments Source HEPARIN Propensity to adverse reactions to drug (finding) Cardiac arrest SEVERE active 3 [facility] [place] [facility] Immunizations Combined list of available immunizations from the Department of Defense and Veterans Affairs facilities. Immunization Series Date Given Administered By Site Reaction Lot Number CVX Code Drug Front Counter Clerk Status Comments Source INFLUENZA, UNSPECIFIED FORMULATION 2023 88 complet ed [facility] [place] [facility] PNEUMOCOCCAL CONJUGATE PCV20, POLYSACCHARID E [id number] CONJUGATE, ADJUVANT, PF 2023 ROXANNA VILLALBA E LEFT DELTO ID [id number] 216 complet ed [facility] [place] [facility] TDAP 2023 ROXANNA VILLALBA LEFT DELTO ID [id number] 115 complet ed [facility] [place] [facility] INFLUENZA, UNSPECIFIED FORMULATION 2022 88 complet ed [facility] [place] [facility] COVID-19 (MODERNA), MRNA, LNP-S, BIVALENT, PF, 50 MCG/0.5 ML OR 25MCG/0.25 ML DOSE 1 2021 229 complet ed [facility] [place] [facility] INFLUENZA VACCINE, QUADRIVALENT, ADJUVANTED 2021 205 complet ed [facility] [place] [facility] COVID-19 (MODERNA), MRNA, LNP-S, PF, 100 MCG/0.5ML DOSE OR 50 MCG/0.25ML DOSE 3 2020 207 complet ed [facility] [place] [facility] INFLUENZA, UNSPECIFIED FORMULATION 2020 88 complet ed [facility] [place] [facility] COVID-19 (MODERNA), MRNA, LNP-S, PF, 100 MCG/0.5ML DOSE OR 50 MCG/0.25ML DOSE 2 2020 207 complet ed [facility] COVID-19 (MODERNA), MRNA, LNP-S, PF, 100 MCG/0.5ML DOSE OR 50 MCG/0.25ML DOSE 1 2020 207 complet ed [facility] [place] [facility] INFLUENZA, TRIVALENT, ADJUVANTED 2018 NONE 168 complet ed [facility] [place] PNEUMOCOCCAL CONJUGATE PCV 13 2017 133 complet ed [facility] PNEUMOCOCCAL POLYSACCHARID E [id number] 2015 33 complet ed [facility] Results Combined list of recent chemistry, hematology and other laboratory results from Department of Defense and Veterans Affairs, ranging from 15 months to all on record, depending upon the facility. Order Name Results Value Reference Range Date Interpretation Specimen Comments Source BASIC METABOLI C PANEL (fasting ) UREA NITROGEN [MASS/VOLU ME] IN SERUM OR PLASMA 18 mg/dL 7 - 25 10/14 Specimen Type: SERUM No comment entered. Ordering Provider: Madelaine SAHA Report Released Date/Time: Oct 15, 2023 11:05 AM Reporting Lab: [address] [address] Performing Lab: [address] [address] [facility] BASIC METABOLI C PANEL (fasting ) GLUCOSE [MASS/VOLU ME] IN SERUM OR PLASMA 95 mg/dL 65 - 100 10/14 Specimen Type: SERUM No comment entered. Ordering Provider: Madelaine SAHA Report Released Date/Time: Oct 15, 2023 11:05 AM Reporting Lab: [facility] [place] [facility] [address] [facility] [address] Performing Lab: [facility] [address] [facility] [address] [facility] [place] [facility] BASIC METABOLI C PANEL (fasting ) SODIUM [MOLES/VOL UME] IN SERUM OR PLASMA 141 mmol/L 135 - 145 10/14 Specimen Type: SERUM No comment entered. Ordering Provider: Madelaine SAHA Report Released Date/Time: Oct 15, 2023 11:05 AM Reporting Lab: [facility] [address] [address] Performing Lab: [facility] [address] [address] [facility] [place] [facility] BASIC METABOLI C PANEL (fasting ) POTASSIUM [MOLES/VOL UME] IN SERUM OR PLASMA 4.2 mmol/L 3.5 - 5.0 10/14 Specimen Type: SERUM No comment entered. Ordering Provider: Madelaine SAHA Report Released Date/Time: Oct 15, 2023 11:05 AM Reporting Lab: [facility] [place] [facility] [address] [facility] [address] Performing Lab: [facility] [place] [facility] [address] [facility] [address] [facility] [place] [facility] BASIC METABOLI C PANEL (fasting ) CHLORIDE [MOLES/VOL UME] IN SERUM OR PLASMA 106 mmol/L 100 - 110 10/14 Specimen Type: SERUM No comment entered. Ordering Provider: Madelaine SAHA Report Released Date/Time: Oct 15, 2023 11:05 AM Reporting Lab: [facility] [place] [address] [address] Performing Lab: [facility] [address] [address] [facility] BASIC METABOLI C PANEL (fasting ) CARBON DIOXIDE, TOTAL [MOLES/VOL UME] IN SERUM OR PLASMA 25 meq/L 20 - 30 10/14 Specimen Type: SERUM No comment entered. Ordering Provider: Madelaine SAHA Report Released Date/Time: Oct 15, 2023 11:05 AM Reporting Lab: [facility]N [facility] [address] Performing Lab: [facility]N [facility] [address] [facility] BASIC METABOLI C PANEL (fasting ) CREATININE [MASS/VOLU ME] IN SERUM OR PLASMA 1.37 mg/dL 0.50 - 1.40 10/14 Specimen Type: SERUM No comment entered. Ordering Provider: Madelaine SAHA Report Released Date/Time: Oct 15, 2023 11:05 AM Reporting Lab: [facility] [address] Performing Lab: [facility] [address] [facility] [place] [facility] BASIC METABOLI C PANEL (fasting ) GLOMERULAR FILTRATION RATE/1.73 SQ M.PREDICTE D [VOLUME RATE/AREA] IN SERUM, PLASMA OR BLOOD BY CREATININE -BASED FORMULA (CKD-EPI 2020) 53 mL/min 60 10/14 L Specimen Type: SERUM No comment entered. Ordering Provider: Madelaine SAHA Report Released Date/Time: Oct 15, 2023 11:05 AM Reporting Lab: [facility]RRANDOL[facility]TRN [facility] [address] Performing Lab: [facility] [place] [address] [address] [facility] [place] [facility] LIVER FUNCTION PROTEIN [MASS/VOLU ME] IN SERUM OR PLASMA 7.1 g/dL 6.0 - 8.3 10/14 Specimen Type: SERUM No comment entered. Ordering Provider: Madelaine SAHA Report Released Date/Time: Oct 15, 2023 11:05 AM Reporting Lab: [facility] [place] [facility] [address] [facility] [address] Performing Lab: [facility] [place] [facility] [address] [facility] [address] [facility] [place] [facility] LIVER FUNCTION ALBUMIN [MASS/VOLU ME] IN SERUM OR PLASMA 3.8 g/dL 3.5 - 5.0 10/14 Specimen Type: SERUM No comment entered. Ordering Provider: Madelaine SAHA Report Released Date/Time: Oct 15, 2023 11:05 AM Reporting Lab: [facility] [place] [facility] [address] [facility] [address] Performing Lab: [facility] [place] [address] [address] [place] [facility] [place] [facility] LIVER FUNCTION ALKALINE PHOSPHATAS E [ENZYMATIC ACTIVITY/V OLUME] IN SERUM OR PLASMA 50 U/L 40 - 150 10/14 Specimen Type: SERUM No comment entered. Ordering Provider: Madelaine SAHA Report Released Date/Time: Oct 15, 2023 11:05 AM Reporting Lab: [facility] [place] [facility] [address] [facility] [address] Performing Lab: [facility] [place] [facility] [address] [facility] [address] [facility] [place] [facility] LIVER FUNCTION ASPARTATE AMINOTRANS FERASE [ENZYMATIC ACTIVITY/V OLUME] IN SERUM OR PLASMA 15 U/L 5 - 34 10/14 Specimen Type: SERUM No comment entered. Ordering Provider: Madelaine SAHA Report Released Date/Time: Oct 15, 2023 11:05 AM Reporting Lab: [facility] [place] [facility] [address] [facility] [address] Performing Lab: [facility] [place] [facility] [address] [facility] [address] [facility] [place] [facility] LIVER FUNCTION ALANINE AMINOTRANS FERASE [ENZYMATIC ACTIVITY/V OLUME] IN SERUM OR PLASMA 26 U/L 10/14 Specimen Type: SERUM No comment entered. Ordering Provider: Madelaine SAHA Report Released Date/Time: Oct 15, 2023 11:05 AM Reporting Lab: [facility] [place] [facility] [address] [facility] [address] Performing Lab: [facility] [place] [facility] [address] [facility] [address] [facility] [place] [facility] LIVER FUNCTION BILIRUBIN. TOTAL [MASS/VOLU ME] IN SERUM OR PLASMA 0.5 mg/dL 0.2 - 1.2 10/14 Specimen Type: SERUM No comment entered. Ordering Provider: Madelaine SAHA Report Released Date/Time: Oct 15, 2023 11:05 AM Reporting Lab: [place] [facility] [place] [address] [address] Performing Lab: [place] [facility] [place] [address] [address] [facility] [place] LIPID PANEL FASTING CHOLESTERO L [MASS/VOLU ME] IN SERUM OR PLASMA 179 mg/dL 10/14 Specimen Type: SERUM No comment entered. Ordering Provider: Madelaine SAHA Report Released Date/Time: Oct 15, 2023 11:05 AM Reporting Lab: [facility] [place] [facility] [address] [facility] [address] Performing Lab: [facility] [place] [facility] [address] [facility] [address] [facility] [place] [facility] LIPID PANEL FASTING TRIGLYCERI DE [MASS/VOLU ME] IN SERUM OR PLASMA 123 mg/dL 0 - 150 10/14 Specimen Type: SERUM No comment entered. Ordering Provider: Madelaine SAHA Report Released Date/Time: Oct 15, 2023 11:05 AM Reporting Lab: [place] [facility] [place] [address] [address] Performing Lab: [facility] [place] [facility] [address] [facility] [address] [facility] [place] [facility] LIPID PANEL FASTING CHOLESTERO L IN LDL [MASS/VOLU ME] IN SERUM OR PLASMA BY CALCULAGIOO N 111 mg/dL 0 - 129 10/14 Specimen Type: SERUM No comment entered. Ordering Provider: Madelaine SAHA Report Released Date/Time: Oct 15, 2023 11:05 AM Reporting Lab: [facility] [place] [facility] [address] [facility] [address] Performing Lab: [facility] [facility] [address] [facility] [address] [facility] [place] [facility] LIPID PANEL FASTING CHOLESTERO L.TOTAL/CH OLESTEROL IN HDL [MASS RATIO] IN SERUM OR PLASMA 4.2 10/14 Specimen Type: SERUM No comment entered. Ordering Provider: Madelaine SAHA Report Released Date/Time: Oct 15, 2023 11:05 AM Reporting Lab: [facility] [place] [facility] [address] [facility] [address] Performing Lab: [facility] [place] [facility] [address] [facility] [address] [facility] [place] [facility] LIPID PANEL FASTING CHOLESTERO L IN HDL [MASS/VOLU ME] IN SERUM OR PLASMA 43 mg/dL 40 - 60 10/14 Specimen Type: SERUM No comment entered. Ordering Provider: Madelaine SAHA Report Released Date/Time: Oct 15, 2023 11:05 AM Reporting Lab: [facility] [place] [facility] [address] [facility] [address] Performing Lab: [facility] [place] [facility] [address] [facility] [address] [facility] [place] [facility] IRON & TIBC PANEL IRON BINDING CAPACITY [MASS/VOLU ME] IN SERUM OR PLASMA 338 ug/dL 204 - 475 10/14 Specimen Type: SERUM No comment entered. Ordering Provider: VANWAGNER,W ILLIAM F Report Released Date/Time: Oct 15, 2023 11:05 AM Reporting Lab: [facility] [place] [facility] [address] [facility] [address] Performing Lab: [facility] [place] [facility] [address] [facility] [address] [facility] [place] [facility] IRON & TIBC PANEL IRON [MASS/VOLU ME] IN SERUM OR PLASMA 51 ug/dL 40 - 160 10/14 Specimen Type: SERUM No comment entered. Ordering Provider: Madelaine SAHA Report Released Date/Time: Oct 15, 2023 11:05 AM Reporting Lab: [facility] [place] [facility] [address] [facility] [address] Performing Lab: [facility] [place] [facility] [address] [facility] [address] [facility] [place] [facility] IRON & TIBC PANEL IRON/IRON BINDING CAPACITY.T OTAL [MASS RATIO] IN SERUM OR PLASMA 15.1 20.0 - 50.0 10/14 L Specimen Type: SERUM No comment entered. Ordering Provider: Madelaine SAHA Report Released Date/Time: Oct 15, 2023 11:05 AM Reporting Lab: [facility] [place] [facility] [address] [facility] [address] Performing Lab: [facility] [place] [facility] [address] [facility] [address] [facility] [place] [facility] CBC AND DIFF (AUTO) LEUKOCYTES [#/VOLUME] IN BLOOD BY AUTOMATED COUNT 6.76 10*3/uL 4.50 - 11.00 10/14 Specimen Type: BLOOD No comment entered. Ordering Provider: Madelaine SAHA Report Released Date/Time: Oct 15, 2023 11:05 AM Reporting Lab: [facility] [place] [facility] [address] [facility] [address] Performing Lab: [facility] [place] [facility] [address] [facility] [address] [facility] [place] [facility] CBC AND DIFF (AUTO) ERYTHROCYT ES [#/VOLUME] IN BLOOD BY AUTOMATED COUNT 5.57 10*6/uL 4.23 - 5.66 10/14 Specimen Type: BLOOD No comment entered. Ordering Provider: Madelaine SAHA Report Released Date/Time: Oct 15, 2023 11:05 AM Reporting Lab: [facility] [place] [facility] [address] [facility] [address] Performing Lab: [facility] [place] [facility] [address] [facility] [address] [facility] [place] [facility] CBC AND DIFF (AUTO) HEMOGLOBIN [MASS/VOLU ME] IN BLOOD 14.9 g/dL 12.8 - 17 10/14 Specimen Type: BLOOD No comment entered. Ordering Provider: Madelaine SAHA Report Released Date/Time: Oct 15, 2023 11:05 AM Reporting [facility] [place] [address] [address] Performing Lab[facility] [place] [facility] [address] [facility] [address] [facility] [place] [facility] CBC AND DIFF (AUTO) HEMATOCRIT [VOLUME FRACTION] OF BLOOD BY AUTOMATED COUNT 47.5 39.2 - 50.4 10/14 Specimen Type: BLOOD No comment entered. Ordering Provider: Madelaine SAHA Report Released Date/Time: Oct 15, 2023 11:05 AM Reporting Lab: [facility] [place] [address] [address] Performing Lab: [facility] [place] [facility] [address] [facility] [address] [facility] [facility] CBC AND DIFF (AUTO) MCV [ENTITIC VOLUME] BY AUTOMATED COUNT 85.3 fL 82 - 99 10/14 Specimen Type: BLOOD No comment entered. Ordering Provider: Madelaine SAHA Report Released Date/Time: Oct 15, 2023 11:05 AM Reporting Lab: [facility] [place] [address] [address] Performing Lab: [facility] [place] [facility] [address] [facility] [address] [facility] [place] [facility] CBC AND DIFF (AUTO) MCHC [MASS/VOLU ME] BY AUTOMATED COUNT 31.4 g/dL 30.8 - 35.1 10/14 Specimen Type: BLOOD No comment entered. Ordering Provider: Madelaine SAHA Report Released Date/Time: Oct 15, 2023 11:05 AM Reporting Lab: [facility] [place] [facility] [address] [facility] [address] Performing Lab: [facility] [place] [facility] [address] [facility] [address] [facility] [place] [facility] CBC AND DIFF (AUTO) PLATELETS [#/VOLUME] IN BLOOD BY AUTOMATED COUNT 243 10*3/uL 140 - 360 10/14 Specimen Type: BLOOD No comment entered. Ordering Provider: Madelaine SAHA Report Released Date/Time: Oct 15, 2023 11:05 AM Reporting Lab: [facility] [place] [facility] [address] [facility] [address] Performing Lab: [facility] [place] [facility] [address] [facility] [address] [facility] [place] [facility] CBC AND DIFF (AUTO) ERYTHROCYT E DISTRIBUTI ON WIDTH [RATIO] BY AUTOMATED COUNT 15.0 12.0 - 16.0 10/14 Specimen Type: BLOOD No comment entered. Ordering Provider: Mdaelaine SAHA Report Released Date/Time: Oct 15, 2023 11:05 AM Reporting Lab: [facility] [place] [facility] [address] [facility] [address] Performing Lab: [facility] [place] [facility] [address] [facility] [address] [facility] [place] [facility] CBC AND DIFF (AUTO) MONOCYTES [#/VOLUME] IN BLOOD BY AUTOMATED COUNT 0.49 10*3/uL 0.30 - 1.10 10/14 Specimen Type: BLOOD No comment entered. Ordering Provider: Madelaine SAHA Report Released Date/Time: Oct 15, 2023 11:05 AM Reporting Lab: [facility] [place] [facility] [address] [facility] [address] Performing Lab: [facility] [place] [facility] [address] [facility] [address] [facility] [place] CBC AND DIFF (AUTO) MCH [ENTITIC MASS] BY AUTOMATED COUNT 26.8 pg 26.2 - 32.6 10/14 Specimen Type: BLOOD No comment entered. Ordering Provider: Madelaine SAHA Report Released Date/Time: Oct 15, 2023 11:05 AM Reporting Lab: [facility] [place] [facility] [address] [facility] [address] Performing Lab: [facility] [place] [facility] [address] [facility] [address] [facility] [place] CBC AND DIFF (AUTO) NEUTROPHIL S/100 LEUKOCYTES IN BLOOD BY AUTOMATED COUNT 67.8 43.7 - 75.8 10/14 Specimen Type: BLOOD No comment entered. Ordering Provider: Madelaine SAHA Report Released Date/Time: Oct 15, 2023 11:05 AM Reporting Lab: [facility] [place] [facility] [address] [facility] [address] Performing Lab: [facility] [place] [facility] [address] [facility] [address] [facility] CBC AND DIFF (AUTO) LYMPHOCYTE S/100 LEUKOCYTES IN BLOOD BY AUTOMATED COUNT 21.9 14.0 - 42.3 10/14 Specimen Type: BLOOD No comment entered. Ordering Provider: Madelaine SAHA Report Released Date/Time: Oct 15, 2023 11:05 AM Reporting Lab: [facility] [place] [facility] [address] [facility] [address] Performing Lab: [facility] [place] [facility] [address] [facility] [address] [facility] [place] [facility] CBC AND DIFF (AUTO) MONOCYTES/ 100 LEUKOCYTES IN BLOOD BY AUTOMATED COUNT 7.2 5.1 - 13.7 10/14 Specimen Type: BLOOD No comment entered. Ordering Provider: Madelaine SAHA Report Released Date/Time: Oct 15, 2023 11:05 AM Reporting Lab: [facility] [place] [facility] [address] [facility] [address] Performing Lab: [facility] [place] [facility] [address] [facility] [address] [facility] [place] [facility] CBC AND DIFF (AUTO) EOSINOPHIL S/100 LEUKOCYTES IN BLOOD BY AUTOMATED COUNT 2.1 0.4 - 6.8 10/14 Specimen Type: BLOOD No comment entered. Ordering Provider: Madelaine SAHA Report Released Date/Time: Oct 15, 2023 11:05 AM Reporting Lab: [facility] [place] [address] [address] Performing Lab: [facility] [place] [address] [address] [facility] [place] [facility] CBC AND DIFF (AUTO) BASOPHILS/ 100 LEUKOCYTES IN BLOOD BY AUTOMATED COUNT 0.6 0.1 - 2.0 10/14 Specimen Type: BLOOD No comment entered. Ordering Provider: Madelaine SAHA Report Released Date/Time: Oct 15, 2023 11:05 AM Reporting Lab: [facility] [place] [address] [address] Performing Lab: [facility] [place] [address] [address] [facility] [place] [facility] CBC AND DIFF (AUTO) NEUTROPHIL S [#/VOLUME] IN BLOOD BY AUTOMATED COUNT 4.58 10*3/uL 2.20 - 7.60 10/14 Specimen Type: BLOOD No comment entered. Ordering Provider: Madelaine SAHA Report Released Date/Time: Oct 15, 2023 11:05 AM Reporting Lab: [facility] [place] [address] [address] Performing Lab: [facility] [place] [facility] [address] [facility] [address] [facility] [place] [facility] CBC AND DIFF (AUTO) LYMPHOCYTE S [#/VOLUME] IN BLOOD BY AUTOMATED COUNT 1.48 10*3/uL 1.00 - 3.20 10/14 Specimen Type: BLOOD No comment entered. Ordering Provider: Madelaine SAAH Report Released Date/Time: Oct 15, 2023 11:05 AM Reporting Lab: [facility] [place] [facility] [address] [facility] [address] Performing Lab: [facility] [place] [address] [address] [facility] [place] [facility] CBC AND DIFF (AUTO) EOSINOPHIL S [#/VOLUME] IN BLOOD BY AUTOMATED COUNT 0.14 10*3/uL 0.03 - 0.44 10/14 Specimen Type: BLOOD No comment entered. Ordering Provider: Madelaine SAHA Report Released Date/Time: Oct 15, 2023 11:05 AM Reporting Lab: [facility] [place] [address] [address] Performing Lab: [facility] [place] [address] [address] [facility] [place] [facility] CBC AND DIFF (AUTO) BASOPHILS [#/VOLUME] IN BLOOD BY AUTOMATED COUNT 0.04 10*3/uL 0.01 - 0.13 10/14 Specimen Type: BLOOD No comment entered. Ordering Provider: Madelaine SAHA Report Released Date/Time: Oct 15, 2023 11:05 AM Reporting Lab: [facility] [place] [address] [address] Performing Lab: [facility] [place] [address] [address] [facility] [place] [facility] CBC AND DIFF (AUTO) IMMATURE GRANULOCYT ES/100 LEUKOCYTES IN BLOOD BY AUTOMATED COUNT 0.4 0.0 - 0.7 10/14 Specimen Type: BLOOD No comment entered. Ordering Provider: Madelaine SAHA Report Released Date/Time: Oct 15, 2023 11:05 AM Reporting Lab: [facility] [place] [facility] [address] [facility] [address] Performing Lab: [facility] [place] [facility] [address] [facility] [address] [facility] [place] [facility] CBC AND DIFF (AUTO) IMMATURE GRANULOCYT ES [#/VOLUME] IN BLOOD 0.03 10*3/uL 0.00 - 0.06 10/14 Specimen Type: BLOOD No comment entered. Ordering Provider: Madelaine SAHA Report Released Date/Time: Oct 15, 2023 11:05 AM Reporting Lab: [facility] [place] [facility] [address] [facility] [address] Performing Lab: [facility] [place] [facility] [address] [facility] [address] [facility] [place] [facility] CBC LEUKOCYTES [#/VOLUME] IN BLOOD BY AUTOMATED COUNT 6.94 10*3/uL 4.50 - 11.00 05/24 Specimen Type: BLOOD No comment entered. Ordering Provider: Madelaine SAHA Report Released Date/Time: Apr 14, 2023 08:29 AM Reporting Lab: [facility] [place] [facility] [address] [facility] [address] Performing Lab: [facility] [place] [facility] [address] [facility] [address] [facility] [place] [facility] CBC ERYTHROCYT ES [#/VOLUME] IN BLOOD BY AUTOMATED COUNT 4.59 10*6/uL 4.23 - 5.66 05/24 Specimen Type: BLOOD No comment entered. Ordering Provider: Madelaine SAHA Report Released Date/Time: Apr 14, 2023 08:29 AM Reporting Lab: [facility] [place] [facility] [address] [facility] [address] Performing Lab: [facility] [place] [facility] [address] [facility] [address] [facility] [place] [facility] CBC HEMOGLOBIN [MASS/VOLU ME] IN BLOOD 12.9 g/dL 12.8 - 17 05/24 Specimen Type: BLOOD No comment entered. Ordering Provider: Madelaine SAHA Report Released Date/Time: Apr 14, 2023 08:29 AM Reporting Lab: [facility] [place] [facility] [address] [facility] [address] Performing Lab: [facility] [place] [facility] [address] [facility] [address] [facility] [place] [facility] CBC HEMATOCRIT [VOLUME FRACTION] OF BLOOD BY AUTOMATED COUNT 40.6 39.2 - 50.4 05/24 Specimen Type: BLOOD No comment entered. Ordering Provider: Madelaine SAHA Report Released Date/Time: Apr 14, 2023 08:29 AM Reporting Lab: [facility] [place] [facility] [address] [facility] [address] Performing Lab: [facility] [place] [facility] [address] [facility] [address] [facility] [place] [facility] CBC MCV [ENTITIC VOLUME] BY AUTOMATED COUNT 88.5 fL 82 - 99 05/24 Specimen Type: BLOOD No comment entered. Ordering Provider: Madelaine SAHA Report Released Date/Time: Apr 14, 2023 08:29 AM Reporting Lab: [facility] [place] [facility] [address] [facility] [address] Performing Lab: [facility] [place] [facility] [address] [facility] [address] [facility] [place] [facility] CBC MCHC [MASS/VOLU ME] BY AUTOMATED COUNT 31.8 g/dL 30.8 - 35.1 05/24 Specimen Type: BLOOD No comment entered. Ordering Provider: Madelaine SAHA Report Released Date/Time: Apr 14, 2023 08:29 AM Reporting Lab: [facility] [place] [facility] [address] [facility] [address] Performing Lab: [facility] [place] [facility] [address] [facility] [address] [facility] [place] [facility] CBC PLATELETS [#/VOLUME] IN BLOOD BY AUTOMATED COUNT 309 10*3/uL 140 - 360 05/24 Specimen Type: BLOOD No comment entered. Ordering Provider: Madelaine SAHA Report Released Date/Time: Apr 14, 2023 08:29 AM Reporting Lab: [facility] [place] [facility] [address] [facility] [address] Performing Lab: [facility] [place] [facility] [address] [facility] [address] [facility] [place] [facility] CBC ERYTHROCYT E DISTRIBUTI ON WIDTH [RATIO] BY AUTOMATED COUNT 14.0 12.0 - 16.0 05/24 Specimen Type: BLOOD No comment entered. Ordering Provider: Madelaine SAHA Report Released Date/Time: Apr 14, 2023 08:29 AM Reporting Lab: [facility] [place] [facility] [address] [facility] [address] Performing Lab: [facility] [place] [facility] [address] [facility] [address] [facility] [place] [facility] CBC MCH [ENTITIC MASS] BY AUTOMATED COUNT 28.1 pg 26.2 - 32.6 05/24 Specimen Type: BLOOD No comment entered. Ordering Provider: Madelaine SAHA Report Released Date/Time: Apr 14, 2023 08:29 AM Reporting Lab: [facility] [place] [place] [facility] [address] [facility] [address] Performing Lab: [facility] [facility] [address] [facility] [address] [facility] [place] [facility] URINALYS IS COLOR OF URINE Light-Ye llow 05/24 Specimen Type: URINE Comment: If Glucose = >500 and Ketones are positive, please alert the Physician. Ordering Provider: Madelaine SAHA Report Released Date/Time: Apr 26, 2023 04:38 PM Reporting Lab: [facility] [place] [facility] [address] [facility] [address] Performing Lab: [facility] [facility] [address] [facility] [address] [facility] [place] [facility] URINALYS IS APPEARANCE OF URINE Clear 05/24 Specimen Type: URINE Comment: If Glucose = >500 and Ketones are positive, please alert the Physician. Ordering Provider: Madelaine SAHA Report Released Date/Time: Apr 26, 2023 04:38 PM Reporting Lab: [facility] [facility] [address] [facility] [address] Performing Lab: [facility] [place] [place] [facility] [address] [facility] [address] [facility] [place] [facility] URINALYS IS GLUCOSE [MASS/VOLU ME] IN URINE NEGATIVE mg/dL 05/24 Specimen Type: URINE Comment: If Glucose = >500 and Ketones are positive, please alert the Physician. Ordering Provider: Madelaine SAHA Report Released Date/Time: Apr 26, 2023 04:38 PM Reporting Lab: [facility] [place] [facility] [address] [facility] [address] Performing Lab: [facility] [place] [facility] [address] [facility] [address] [facility] [place] [facility] URINALYS IS KETONES [MASS/VOLU ME] IN URINE BY TEST STRIP NEGATIVE mg/dL 05/24 Specimen Type: URINE Comment: If Glucose = >500 and Ketones are positive, please alert the Physician. Ordering Provider: Madelaine SAHA Report Released Date/Time: Apr 26, 2023 04:38 PM Reporting Lab: [facility] [place] [facility] [address] [facility] [address] Performing Lab: [facility] [place] [facility] [address] [facility] [address] [facility] [place] [facility] URINALYS IS ERYTHROCYT ES [PRESENCE] IN URINE SEDIMENT BY LIGHT MICROSCOPY NEGATIVE mg/dL 05/24 Specimen Type: URINE Comment: If Glucose = >500 and Ketones are positive, please alert the Physician. Ordering Provider: Madelaine SAHA Report Released Date/Time: Apr 26, 2023 04:38 PM Reporting Lab: [facility] [place] [facility] [address] [facility] [address] Performing Lab: [facility] [place] [facility] [address] [facility] [address] [facility] [place] [facility] URINALYS IS PROTEIN [MASS/VOLU ME] IN URINE BY TEST STRIP NEGATIVE mg/dL 05/24 Specimen Type: URINE Comment: If Glucose = >500 and Ketones are positive, please alert the Physician. Ordering Provider: Madelaine SAHA Report Released Date/Time: Apr 26, 2023 04:38 PM Reporting Lab: [facility] [place] [facility] [address] [facility] [address] Performing Lab: [facility] [place] [facility] [address] [facility] [address] [facility] [place] [facility] URINALYS IS NITRITE [PRESENCE] IN URINE NEGATIVE mg/dL 05/24 Specimen Type: URINE Comment: If Glucose = >500 and Ketones are positive, please alert the Physician. Ordering Provider: Madelaine SAHA Report Released Date/Time: Apr 26, 2023 04:38 PM Reporting Lab: [facility] [place] [facility] [address] [facility] [address] Performing Lab: [facility] [place] [facility] [address] [facility] [address] [facility] [place] [facility] URINALYS IS BILIRUBIN. TOTAL [PRESENCE] IN URINE NEGATIVE mg/dL 05/24 Specimen Type: URINE Comment: If Glucose = >500 and Ketones are positive, please alert the Physician. Ordering Provider: Madelaine SAHA Report Released Date/Time: Apr 26, 2023 04:38 PM Reporting Lab: [facility] [place] [facility] [address] [facility] [address] Performing Lab: [facility] [place] [facility] [address] [facility] [address] [facility] URINALYS IS SPECIFIC GRAVITY OF URINE BY REFRACTOME TRY 1.017 1.016 - 1.022 05/24 Specimen Type: URINE Comment: If Glucose = >500 and Ketones are positive, please alert the Physician. Ordering Provider: Madelaine SAHA Report Released Date/Time: Apr 26, 2023 04:38 PM Reporting Lab: [facility] [address] [facility] [address] Performing Lab: [facility] [address] [facility] [address] [facility] URINALYS IS PH OF URINE BY TEST STRIP 6.0 5.0 - 9.0 05/24 Specimen Type: URINE Comment: If Glucose = >500 and Ketones are positive, please alert the Physician. Ordering Provider: Madelaine SAHA Report Released Date/Time: Apr 26, 2023 04:38 PM Reporting Lab: [facility] [facility] [address] [facility] [address] Performing Lab: [facility] [address] [facility] [address] [facility] URINALYS IS UROBILINOG EN [MASS/VOLU ME] IN URINE BY TEST STRIP <2.0mg/d L <2.0 - 2.0 05/24 Specimen Type: URINE Comment: If Glucose = >500 and Ketones are positive, please alert the Physician. Ordering Provider: Madelaine SAHA Report Released Date/Time: Apr 26, 2023 04:38 PM Reporting Lab: [facility] [place] [facility] [address] [facility] [address] Performing Lab: [facility] [address] [facility] URINALYS IS LEUKOCYTE ESTERASE [PRESENCE] IN URINE BY TEST STRIP NEGATIVE 05/24 Specimen Type: URINE Comment: If Glucose = >500 and Ketones are positive, please alert the Physician. Ordering Provider: Madelaine SAHA Report Released Date/Time: Apr 26, 2023 04:38 PM Reporting Lab: [facility] [place] [facility] [address] [facility] [address] Performing Lab: [facility] [place] [facility] [address] [facility] [address] [facility] [place] [facility] MICROALB UMIN CREATINI NE RATIO PANEL MICROALBUM IN/CREATIN INE [MASS RATIO] IN URINE 21.1 mg/g 0 - 29.9 05/24 Specimen Type: URINE No comment entered. Ordering Provider: Madelaine SAHA Report Released Date/Time: Apr 26, 2023 04:38 PM Reporting Lab: [facility] [place] [facility] [address] [facility] [address] Performing Lab: [facility] [facility] [address] [facility] [address] [facility] [place] [facility] MICROALB UMIN CREATINI NE RATIO PANEL MICROALBUM IN [MASS/VOLU ME] IN URINE 1.9 mg/dL 05/24 Specimen Type: URINE No comment entered. Ordering Provider: Madelaine SAHA Report Released Date/Time: Apr 26, 2023 04:38 PM Reporting Lab: [facility] [place] [facility] [address] [facility] [address] Performing Lab: [facility] [facility] [address] [facility] [address] [facility] [place] [facility] MICROALB UMIN CREATINI NE RATIO PANEL CREATININE [MASS/VOLU ME] IN URINE 89.96 mg/dL 05/24 Specimen Type: URINE No comment entered. Ordering Provider: Madelaine SAHA Report Released Date/Time: Apr 26, 2023 04:38 PM Reporting Lab: [facility] [facility] [address] [facility] [address] Performing Lab: [facility] [place] [facility] [address] [facility] [address] [facility] [place] [facility] IRON & TIBC PANEL IRON BINDING CAPACITY [MASS/VOLU ME] IN SERUM OR PLASMA 347 ug/dL 204 - 475 05/24 Specimen Type: SERUM No comment entered. Ordering Provider: Madelaine SAHA Report Released Date/Time: Apr 26, 2023 04:38 PM Reporting Lab: [facility] [place] [facility] [address] [facility] [address] Performing Lab: [facility] [place] [facility] [address] [facility] [address] [facility] [place] [facility] IRON & TIBC PANEL IRON [MASS/VOLU ME] IN SERUM OR PLASMA 41 ug/dL 40 - 160 05/24 Specimen Type: SERUM No comment entered. Ordering Provider: Madelaine SAHA Report Released Date/Time: Apr 26, 2023 04:38 PM Reporting Lab: [facility] [place] [address] [address] Performing Lab: [facility] [place] [address] [address] [facility] [place] [facility] IRON & TIBC PANEL IRON/IRON BINDING CAPACITY.T OTAL [MASS RATIO] IN SERUM OR PLASMA 11.8 20.0 - 50.0 05/24 L Specimen Type: SERUM No comment entered. Ordering Provider: Madelaine SAHA Report Released Date/Time: Apr 26, 2023 04:38 PM Reporting Lab: [facility] [place] [facility] [address] [facility] [address] Performing Lab: [facility] [place] [address] [address] [facility] [place] [facility] BASIC METABOLI C PANEL (fasting ) UREA NITROGEN [MASS/VOLU ME] IN SERUM OR PLASMA 17 mg/dL 7 - 25 05/24 Specimen Type: SERUM No comment entered. Ordering Provider: Madelaine SAHA Report Released Date/Time: Apr 26, 2023 04:38 PM Reporting Lab: [facility] [place] [address] [place] [address] [facility] Lab: [facility] [place] [facility] [address] [facility] [address] [facility] [facility] BASIC METABOLI C PANEL (fasting ) GLUCOSE [MASS/VOLU ME] IN SERUM OR PLASMA 95 mg/dL 65 - 100 05/24 Specimen Type: SERUM No comment entered. Ordering Provider: Madelaine SAHA Report Released Date/Time: Apr 26, 2023 04:38 PM Reporting Lab: [facility] [place] [facility] [address] [facility] [address] Performing Lab: [facility] [address] [facility] BASIC METABOLI C PANEL (fasting ) SODIUM [MOLES/VOL UME] IN SERUM OR PLASMA 142 mmol/L 135 - 145 05/24 Specimen Type: SERUM No comment entered. Ordering Provider: Madelaine SAHA Report Released Date/Time: Apr 26, 2023 04:38 PM Reporting Lab: [facility]ITALRRANDOL[facility] CENTERTRN [facility]USE[address] [address] Performing Lab: [facility]USEC[facility] [address] [facility] [address] [facility] TRN [facility] BASIC METABOLI C PANEL (fasting ) POTASSIUM [MOLES/VOL UME] IN SERUM OR PLASMA 4.8 mmol/L 3.5 - 5.0 05/24 Specimen Type: SERUM No comment entered. Ordering Provider: Madelaine SAHA Report Released Date/Time: Apr 26, 2023 04:38 PM Reporting Lab: [facility] [place] [facility] [address] [facility] [address] Performing Lab: [facility]ITALUSEC[facility] [address] [facility] [address] [facility] TRN [facility]ITALUSE [facility] BASIC METABOLI C PANEL (fasting ) CHLORIDE [MOLES/VOL UME] IN SERUM OR PLASMA 107 mmol/L 100 - 110 05/24 Specimen Type: SERUM No comment entered. Ordering Provider: Madelaine SAHA Report Released Date/Time: Apr 26, 2023 04:38 PM Reporting Lab: [facility] [address] [address] Performing Lab: [facility] WSTRN [address] [address] [facility] BASIC METABOLI C PANEL (fasting ) CARBON DIOXIDE, TOTAL [MOLES/VOL UME] IN SERUM OR PLASMA 24 meq/L 20 - 30 05/24 Specimen Type: SERUM No comment entered. Ordering Provider: Madelaine SAHA Report Released Date/Time: Apr 26, 2023 04:38 PM Reporting Lab: [facility] [address] [address] Performing Lab: [facility] TRN [address] [address] [facility] BASIC METABOLI C PANEL (fasting ) CREATININE [MASS/VOLU ME] IN SERUM OR PLASMA 1.49 mg/dL 0.50 - 1.40 05/24 H Specimen Type: SERUM No comment entered. Ordering Provider: Madelaine SAHA Report Released Date/Time: Apr 26, 2023 04:38 PM Reporting Lab: [facility] TRN [address] [address] Performing Lab: [facility]L TRN [address] [address] [facility] BASIC METABOLI C PANEL (fasting ) GLOMERULAR FILTRATION RATE/1.73 SQ M.PREDICTE D [VOLUME RATE/AREA] IN SERUM, PLASMA OR BLOOD BY CREATININE -BASED FORMULA (CKD-EPI 2020) 48 mL/min 60 05/24 L Specimen Type: SERUM No comment entered. Ordering Provider: Madelaine SAHA Report Released Date/Time: Apr 26, 2023 04:38 PM Reporting Lab: [facility] TRN [address] [address] Performing Lab: [facility] [place] [place] [facility] [address] [facility] [address] [facility] [place] [facility] Vital Signs Combined list of inpatient and outpatient Vital Signs from Department of Defense and Veterans Affairs, ranging from 12 months to all on record, depending upon the facility. Vital Sign Value Date Comments Source SYSTOLIC BLOOD PRESSURE 144 10/25/19 14:37:52 [facility] [place] [facility] DIASTOLIC BLOOD PRESSURE 80 14:37:52 [facility] [place] [facility] PULSE 70 10/25/2023 14:37:52 [facility] [place] [facility] SYSTOLIC BLOOD PRESSURE 144 10/22/19 24 12:55:36 [facility] [place] [facility] DIASTOLIC BLOOD PRESSURE 94 024 12:55:36 [facility] [place] [facility] PULSE OXIMETRY 90 10/22/2023 12:55:36 [facility] [place] [facility] WEIGHT 196 10/22/2023 12:55:36 [facility] [place] [facility] BMI 32kg/m2 10/22/2023 12:55:36 [facility] [place] [facility] PAIN 0 10/22/2023 12:55:36 [facility] [place] [facility] TEMPERATURE 98.1 10/22/2023 12:55:36 [facility] [place] [facility] PULSE 88 10/22/2023 12:55:36 [facility] [place] [facility] RESPIRATION 16 10/22/2023 12:55:36 [facility] [place] [facility] Encounters Combined list of: 1) Encounters from Department of Veterans Affairs facilities going back up to thelast 18 months. 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<b r/> VALENTÍN SAHA 01/22 [facility] En[facility] [id number] 01/22 [facility] [place] [place] En[facility] [id number] 01/25 [facility] [place] [place] En[facility] [id number] 01/25 [facility] [place] En[facility] [id number] 01/25 [facility] [place] [place] WHEELCHAIR MNGMENT TRAINING [id number] Diagnos is: ICD-10- CM R26.89 Other abnorma lities of gait and mobilit y
JOHN MCFADDEN ICA L 02/22 [facility] [place] En[facility] [id number] 04/08 [facility] [place] [place] WHEELCHAIR MNGMENT TRAINING [id number] Diagnos is: ICD-10- CM R26.89 Other abnorma lities of gait and mobilit y
JOHN MCFADDEN ICA L 04/12 [facility] [place] OFFICE O/P EST LOW 20-29 MIN [id number] Diagnos is: ICD-10- CM M35.00 Sjogren syndrom e, unspeci fied
VALENTÍN SAHA 04/23 [facility] [place] [facility] [place] [facility] Outpatient Encounter [id number] ALEXUS ZARAGOZA 04/24 [facility] [place] [facility] Outpatient Encounter [id number] Diagnos is: ICD-10- CM Z04.89 Encount er for examina tion and observa tion for oth reasons
ALEXUS ZARAGOZA 04/24 [place] [facility] [place] [facility] Outpatient Encounter [id number] 04/27 [facility] [place] [place] [facility] [place] [facility] TTE W/DOPPLER COMPLETE [id number] Diagnos is: ICD-10- CM I25.10 Athscl heart disease of [place] coronar y artery w/o ang pctrs<b r/> KIRT MAC 05/03 [facility] [place] [facility] CARDIOVERS ION ELECTRIC INT [id number] Diagnos is: ICD-10- CM Z13.9 Encount er for screeni ng, unspeci fied
CHANI PISANO 05/03 [place] [facility] [place] [facility] Outpatient Encounter [id number] 07/23 [facility] [place] [place] [facility] [place] [facility] Outpatient Encounter [id number] 08/10 [facility] [place] [facility] QNHP OL DIG ASSMT&MGMT 5-10 [id number] Diagnos is: ICD-10- CM S91.009 A Unspeci fied open wound, unspeci fied ankle, initial encount er
KATY THORPE 08/16 [facility] [place] En[facility] [id number] Diagnos is: ICD-10- CM F43.10 Post-tr aumatic stress disorde r, unspeci fied
FEARINGPARVEZ A 09/20 [facility] En[facility] [id number] FEARING,PARVEZ Lopez 09/20 [facility] En[facility] [id number] 10/04 [facility] [place] [place] [facility] OFFICE O/P EST LOW 20 MIN [id number] Diagnos is: ICD-10- CM J44.9 Chronic obstruc tive pulmona ry disease , unspeci fied
MARIA AVALENTÍN 10/21 [facility] [place] [place] [facility] OFF/OP EST MAY X REQ PHY/QHP [id number] Diagnos is: ICD-10- CM I10 Essenti al (primar y) hyperte nsion<b r/> Dionna YANEZ 10/24 [facility] [place] [facility] COMPRE OPH EXAM NEW PT 1/> [id number] Diagnos is: ICD-10- CM H40.013 Open angle with borderl ine finding s, low risk, bilater al
PARVEZ LEMUS 10/24 [facility] [place] [facility] ECHO EXAM OF EYE THICKNESS [id number] Diagnos is: ICD-10- CM H40.013 Open angle with borderl ine finding s, low risk, bilater al
PARVEZ LEMUS 10/24 [facility] [place] [place] FIT SPECTACLES MULTIFOCAL [id number] Diagnos is: ICD-10- CM Z46.0 Encount er for fit/adj st of spectac les and contact lenses< br/> PARVEZ LEMUS 10/25 [facility] Out[facility] Encounter [id number] 10/25 [facility] Encounter [id number] 11/23 [facility] Out[facility] Encounter [id number] 12/07 [facility] [place] Encounter [id number] 12/09 [facility] [place] Out[facility] Encounter [id number] 12/09 [facility] [place] [place] Encounter [id number] 01/23 [facility] [place] [place] QNHP OL DIG ASSMT&MGMT 5-10 [id number] Diagnos is: ICD-10- CM Z12.2 Encntr screen for maligna nt neoplas m of respira tory organs< br/> PUCHALSKI, MIRELA L 01/23 [facility] En[facility] [id number] 01/31 [facility] [place] [facility] [facility] [place] [facility] Outpatient Encounter [id number] 05/11 [facility] [place] [facility] [facility] [place] [facility] Outpatient Encounter [id number] 05/16 [facility] [place] [facility] [place] [facility] QNHP OL DIG ASSMT&MGMT 5-10 [id number] Diagnos is: ICD-10- CM R52 Pain, unspeci fied
LAURA LEDESMA 05/26 [facility] [place] [facility] [place] [facility] Outpatient Encounter [id number] 06/01 [facility] [place] [facility] Social History Combined list of available smoking, tobacco, and other social history from Department of Defense and Veterans Affairs facilities. Social History Type Response Date Comment Sour e Tobacco smoking status NHIS VA-TOBACCO USE FORMER CIGARETTES 06/01/2024 [facility] [place] [facility] History of tobacco use OR-TOBACCO NEVER USED OTHER TYPE 06/01/2024 [facility] [place] [facility] History of tobacco use VA-TOBACCO QUIT 5 TO < 15 YRS 01/22/2023 [facility] [place] [facility] History of tobacco use VA-TOBACCO FORMER USER 02/17/2022 [facility] [place] [facility] History of tobacco use VA-TOBACCO QUIT 1 TO < 5 YRS 06/22/2019 VICKY EVANS Plan of Care List of future care activities from Department of Veterans Affairs facilities. Additional future care activities may be listed in the Assessment and Plan section. Date/Time Care Activity Care Activity Detail Facili ty 06/28/2024 AMBULATORY - MEDICINE AMBULATORY - [place]ICI [place] [facility] [place] [facility] 09/07/2024 AMBULATORY - MEDICINE AMBULATORY - MEDICI [place] [facility] [place] [facility] 10/20/2024 AMBULATORY - MEDICINE AMBULATORY - MEDICI NE [facility] 05/23/2024 Consult Order [facility] Cons Compliance Representative Dealer's Choice [facility] Advance Directives List of completed, amended, or rescinded Advance Directives on record at Department of [facility] facilities. An actual copy of the Directive is not included. Date Advance Directive Provider Source 10/26/2023 ADVANCE DIRECTIVE MARGARITA KRAFT [facility]
--- OUTSIDE RECORDS SUMMARY | 2024-06-26 09:21 | XMS_ITS | Encounter Summary ---
Author Name [place] Address [address] [place] [address] Care Team Providers Care Senior Talent Acquisition Specialist Name Role Phone LYDIA MG Primary Care [...] Holland's Name Patient's Relationship to Policy [facility] ADVANTAGE [facility] ([facility]) Jul 12, 2023 [id number] [phone] [place] PATIENT AETNA [facility] (WNR) MEDICARE [facility] ([facility]) Jul 12, 2023 [id number] [phone] [place] PATIENT AETNA [facility] (WNR) MEDICARE [facility] (R) Jul 12, 2019 [id number] [place] [facility] ADVANTAGE [facility] ([facility]) Jul 12, 2018 [id number] [phone] [place] PATIENT AETNA [facility] (WNR) MEDICARE ADVANTAGE [facility] ([facility]) Jul 12, 2018 [id number] [phone] [place] PATIENT [place] [employer] [facility] (WNR) MEDICARE ADVANTAGE [facility] ([facility]) Sep 09, 2017 [id number] [phone] [place] PATIENT [place] [employer] [facility] (WNR) MEDICARE ADVANTAGE [facility] (R) Jul 12, 2017 [id number] [place] PATIENT Selected Encounter This section includes the information on record at [place] for the Encounter. Date/Time Encounter Type Encounter Description Reason Pro vider Source Jul 23, 2023 12:55 PM Outpatient Encounter ADMIN PAT ACTIVTIES (MASNONCT) IHE Encounter Template Text not used by [place] Plan of Treatment: Future Appointments (+ 6 months) and Future Tests (+/- 45 days) The Plan of Treatment section includes future care activities for the patient from all [place] treatmentfacilities. This section includes future appointments and future orders which are active, pending or scheduled. Future Appointments This section includes appointments that were scheduled to occur 6 months from the date of the Encounter, up to a maximum of 20 appointments. The data comes from all [place] treatment facilities. Appointment Date/Time Appointment Type Appointme nt Facility Name Sep 21, 2023 01:00 PM AMBULATORY - PSYCHIATRY [place] [facility] [place] [facility] Oct 22, 2023 01:00 PM AMBULATORY - MEDICINE [place] [facility] Oct 25, 2023 02:30 PM AMBULATORY - MEDICINE [place] [facility] Oct 25, 2023 03:00 PM AMBULATORY - MEDICINE [place] [facility] Oct 25, 2023 04:15 PM AMBULATORY - MEDICINE [place] [facility] November 10, 2023 08:00 AM AMBULATORY - MEDICINE [facility] [place] [facility] Social History: Smoking Status (Most current) and Tobacco Use (All prior to encounter date) This section includes the most current, and the historical, smoking and tobacco- related health factors from the [place] facility where the Encounter took place. Current Smoking Status This section includes the most current smoking, or tobacco-related health factor, from the [place] facility where the Encounter took place. Date/Time Current Smoking Status Comment Valeria medinay Jan 22, 2023 01:30 PM VA-TOBACCO QUIT 5 TO < 15 YRS [facility] Tobacco Use History This section includes a history of the smoking, or tobacco-related health factors, that were collected on or before the date of the Encounter. The data comes from the [place] facility where the Encounter took place. Date/Time Smoking Status/Tobacco Use Comment F actania Jan 22, 2023 01:30 PM [place]-TOBACCO QUIT 5 TO < 15 YRS [facility] Feb 17, 2022 04:37 PM [facility]CO FOR[facility]ER [facility] Feb 17, 2022 04:37 PM IN-TOBACCO QUIT 1 TO < 5 YRS [facility] Advance Directives: All historical and current Section Date Range: From patient's date of to the date document was created. This section includes ALL of a patient's completed or amended [place] Advance and Rescinded Directives. The entries below indicate that a directive exists for the patient, but an actual copy is not included with this document. The data comes from all [place] facilities. Date Advance Directives Provider Source Oct 26, 2023 ADVANCE DIRECTIVE MARGARITA KRAFT [facility] Encounter Notes: All associated encounter notes This section contains the clinical notes associated to the Encounter. Date/Time Encounter Note(s) Provider Source Jul 23, 2023 12:55 PM ADMINISTRATIVE NOT E: LOCAL TITLE: CCC: SCHEDULING ADMINISTRATION STANDARD TITLE: ADMINISTRATIVE NOTE DATE OF NOTE: JUL 23, 2023@12:55:40 ENTRY DATE: JUL 23, 2023@12:55:40 AUTHOR: DENICE VERGARA COSIGNER: URGENCY: STATUS: COMPLETED CCC: SCHEDULING ADMINISTRATION Has ADDENDA Patient Demographics Patient Name: VALENTÍN JEROME Patient Primary Phone: [phone] Patient Primary Address: [address] [place] [id number] Patient : 1945 Patient Age: 77 Caller/Recipient Relation to Patient: Other If Other Describe Relation to Patient: Caller Name: KATIE JEROME Administrative Administrative Note Reason: Other Administrative Note Comments: 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 /maury AGUIRRE CCC AMSA Signed: 07/23/2023 12:57 07/23/2023 ADDENDUM STATUS: COMPLETED Spoke to , x-rays are for a comp and pen claim and requested by an outside contracted company with the [facility]. Explained to her that we are unable to order these for this reason. Must be done thru the comp and pen system and recommended she call them to find a closer location. /flor/ JOSHUA YANEZ RN REGISTERED NURSE Signed: 07/23/2023 14:19 DENICE VERGARA [facility]
--- OUTSIDE RECORDS SUMMARY | 2024-06-26 09:22 | XMS_ITS ---
Author Name [facility] (MD) Organization [facility] (MD) Address [address] [place] [id number] Care Team Providers Care Casting And Locker Room Servicer Name Role Phone LYDIA MG Primary Care [...] Holland's Name Patient's Relationship to Policy Holland [facility] (R) MEDICARE ADVANTAGE MCR ([facility] Jul 12, 2023 [id number] [phone] [place] [facility]IENT [facility] ([facility] Jul 12, 2023 [id number] [phone] [place] [facility] MCR ([facility] Jul 12, 2019 [id number] [place] PATIENT [facility] ([facility] MEDICARE ADVANTAGE MCR ([facility] Jul 12, 2018 [id number] [place] PATIENT AETNA [facility] (WNR) MEDICARE ADVANTAGE MCR ([facility] Jul 12, 2018 [id number] [phone] [place] [facility] (WNR) MEDICARE ADVANTAGE MCR ([facility] Sep 09, 2017 [id number] [phone] [place] PATIENT [employer] [facility] (WNR) MEDICARE ADVANTAGE MCR ([facility] Jul 12, 2017 [id number] [place] PATIENT Selected Encounter This section includes the information on record at MD for the Encounter. Date/Time Encounter Type Encounter Description Reason Provider Source Oct 25, 2023 04:15 PM ECHO EXAM OF EYE THICKNESS OPTOMETRY ICD-10-CM H40.013 Open angle with borderline findings, low risk, bilateral RENATE LEMUS E Encounter Template Text not used by MD Assessments - Encounter Diagnoses This section includes the primary and secondary diagnoses documented for the Encounter. Date/Time Primary/Secondary Diagnosis Diagnosis Name Provider Source Oct 30, 2023 01:46 PM PRIMARY Open angle with borderline findings, low risk, bilateral RENATE LEMUS [facility] Plan of Treatment: Future Appointments (+ 6 months) and Future Tests (+/- 45 days) The Plan of Treatment section includes future care activities for the patient from all MD treatmentfacilities. This section includes future appointments and future orders which are active, pending or scheduled. Future Appointments This section includes appointments that were scheduled to occur 6 months from the date of the Encounter, up to a maximum of 20 appointments. The data comes from all MD treatment facilities. Appointment Date/Time Appointment Type Appointme nt Facility Name November 10, 2023 08:00 AM [facility] Jan 24, 2024 11:00 AM [facility] Lab Results: +/- 30 days of the encounter This section includes the Chemistry and Hematology Lab Results on record with MD for the patient. Radiology Reports and Pathology Reports are provided separately, in subsequent sections. Lab Results This section contains the Chemistry/Hematology Results that were resulted 30 days before or 30 daysafter the date of the Encounter. Date/Time Source Result Type Result - Unit Interpretation Reference Range Comment Oct 15, 2023 11:06 AM [facility] BASIC METABOLIC PANEL (fasting) Specimen Type: SERUM No comment entered. Ordering Provider: PO SAHA Report Released Date/Time: Oct 15, 2023 11:05 AM Reporting Lab: [address] [address] Performing Lab: [address] [address] UREA NITROGEN 18 mg/dL 7-25 GLUCOSE 95 mg/dL 65-100 SODIUM 141 mmol/L 135-145 POTASSIUM 4.2 mmol/L 3.5-5.0 CHLORIDE 106 mmol/L 100-110 CO2 25 meq/L 20-30 CREATININE, Serum 1.37 mg/dL 0.50-1.40 eGFR(CKD-EPI 2020) 53 mL/min L >60 Oct 15, 2023 11:06 AM [facility] LIVER FUNCTION Specimen Type: SERUM No comment entered. Ordering Provider: PO SAHA Report Released Date/Time: Oct 15, 2023 11:05 AM Reporting Lab: [address] [address] Performing Lab: [address] [address] PROTEIN,TOTAL 7.1 g/dL 6.0-8.3 ALBUMIN 3.8 g/dL 3.5-5.0 ALKALINE PHOSPHATASE 50 U/L 40-150 AST 15 U/L 5-34 ALT 26 U/L BILIRUBIN, TOTAL 0.5 mg/dL 0.2-1.2 Oct 15, 2023 11:06 AM [facility] LIPID PANEL FASTING Specimen Type: SERUM No comment entered. Ordering Provider: PO SAHA Report Released Date/Time: Oct 15, 2023 11:05 AM Reporting Lab: [address] [address] Performing Lab: [facility] [address] [facility] [address] CHOLESTEROL 179 mg/dL TRIGLYCERIDE 123 mg/dL 0-150 LDL calculated 111 mg/dL 0-129 CHOL/HDL 4.2 HDL CHOLESTEROL 43 mg/dL 40-60 Oct 15, 2023 11:06 AM [facility] IRON & TIBC PANEL Specimen Type: SERUM No comment entered. Ordering Provider: PO SAHA Report Released Date/Time: Oct 15, 2023 11:05 AM Reporting Lab: [facility] [address] [facility] [address] Performing Lab: [facility] [address] [facility] [address] TIBC 338 ug/dL 204-475 IRON 51 ug/dL 40-160 Transferrin Saturation 15.1 L 20.0-50.0 Oct 15, 2023 11:06 AM [facility] CBC AND DIFF (AUTO) Specimen Type: BLOOD No comment entered. Ordering Provider: PO SAHA Report Released Date/Time: Oct 15, 2023 11:05 AM Reporting Lab: [facility] [address] [facility] [address] Performing Lab: [address] [address] WBC 6.76 10*3/uL 4.50-11.00 RBC 5.57 10*6/uL 4.23-5.66 HGB 14.9 g/dL 12.8-17 HCT 47.5 39.2-50.4 MCV 85.3 fL 82-99 MCHC 31.4 g/dL 30.8-35.1 PLT 243 10*3/uL 140-360 RDW-CV 15.0 12.0-16.0 Lamb, Abs 0.49 10*3/uL 0.30-1.10 MCH 26.8 pg 26.2-32.6 Neut % 67.8 43.7-75.8 Lymph % 21.9 14.0-42.3 Lamb % 7.2 5.1-13.7 Eos % 2.1 0.4-6.8 Baso % 0.6 0.1-2.0 Neut, Abs 4.58 10*3/uL 2.20-7.60 Lymph, Abs 1.48 10*3/uL 1.00-3.20 Eos, Abs 0.14 10*3/uL 0.03-0.44 Baso, Abs 0.04 10*3/uL 0.01-0.13 Immature Gran % 0.4 0.0-0.7 Immature Gran, Abs 0.03 10*3/uL 0.00-0.06 Vital Signs: All taken on the encounter date This section contains inpatient and outpatient Vital Signs collected on the date of the Encounter. Date/Time Temperature Pulse Blood Pressure Respiratory Rate SP02 Pain Height Weight Body Mass Index Source Oct 25, 2023 02:37 PM 120/80 [facility] [place] [facility] [facility] Oct 25, 2023 02:37 PM 122/90 [facility] [place] [facility] Oct 25, 2023 02:37 PM 70 144/80 [facility] [place] [facility] Social History: Smoking Status (Most current) and Tobacco Use (All prior to encounter date) This section includes the most current, and the historical, smoking and tobacco- related health factors from the MD facility where the Encounter took place. Current Smoking Status This section includes the most current smoking, or tobacco-related health factor, from the MD facility where the Encounter took place. Date/Time Current Smoking Status Comment Facil ity Jan 22, 2023 01:30 PM VA-TOBACCO QUIT 5 TO < 15 YRS [place] [facility] [place] [facility] Tobacco Use History This section includes a history of the smoking, or tobacco-related health factors, that were collected on or before the date of the Encounter. The data comes from the MD facility where the Encounter took place. Date/Time Smoking Status/Tobacco Use Comment F acility Jan 22, 2023 01:30 PM VA-TOBACCO QUIT 5 TO < 15 YRS [place] [facility] [place] [facility] Feb 17, 2022 04:37 PM VA-TOBACCO FORMER USER [facility] [place] [facility] Feb 17, 2022 04:37 PM VA-TOBACCO QUIT 1 TO < 5 YRS [facility] Advance Directives: All historical and current Section Date Range: From patient's date of to the date document was created. This section includes ALL of a patient's completed or amended [place] Advance and Rescinded Directives. The entries below indicate that a directive exists for the patient, but an actual copy is not included with this document. The data comes from all MD facilities. Date Advance Directives Provider Source Oct 26, 2023 ADVANCE DIRECTIVE JADIEL KRAFTSSJohn Pavon [facility] Encounter Notes: All associated encounter notes This section contains the clinical notes associated to the Encounter. Date/Time Encounter Note(s) Provider Source Oct 25, 2023 04:30 PM OPTOMETRY CONSULT: LOCAL TITLE: CONSULT REPORT/OPTOMETRY OCT STANDARD TITLE: OPTOMETRY CONSULT DATE OF NOTE: OCT 25, 2023@16:30 ENTRY DATE: OCT 25, 2023@16:30:25 AUTHOR: LEANNE FAITH COSIGNER: ISAIAH LEMUS URGENCY: STATUS: COMPLETED CONSULT REPORT/OPTOMETRY OCT Has ADDENDA RNFL OCT report: RNFL OCT reviewed for Low Risk Glaucoma Suspect secondary to assymmetric IOPs OS>OD OD: average c/d 0.53, vertical c/d 0.57, disc area 1.39 mm^2. Average RNFL thickness 87 microns. No thinning noted all quadrants. OS: average c/d 0.66, vertical c/d 0.65, disc area 1.50 mm^2. Average RNFL thickness 78 microns. No thinning noted all quadrants. Pachymetry: OD: 509 OS: 495 A/P: 1. Low Risk Glaucoma Suspect secondary to assymmetric IOPs OS>OD - Pt. educated on the risks of loosing peripheral vision if condition is left untreated and the risks of high eye pressures. Pt educated on the importance of collecting more data(IOP, OCT, HVF) in order to confirm a diagnosis and therefore the importance of followup appointments. Treatment with glacouma drops is not initated at this time. Monitor condition. - IOPs today OD: 16, OS: 23 - RTC in 6 months for imaging and IOP check - monitor condition /flor/ LEANNE FAITH OPTOMETRY STUDENT Signed: 10/25/2023 16:34 /es/ Isaiah Lemus OD CHIEF OF OPTOMETRY Cosigned: 10/30/2023 13:44 10/30/2023 ADDENDUM STATUS: COMPLETED Optic nerve OCT obtained on patient with asymmetric IOP. Will follow as low risk glaucoma suspect based on physical exam and imaging. Optical pachymetry obtained on patient with history of asymmetric intraocular pressure. 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 /flor/ Isaiah Lemus OD CHIEF OF OPTOMETRY Signed: 10/30/2023 13:46 LEANNE FAITH [facility]
--- OUTSIDE RECORDS SUMMARY | 2024-06-26 09:22 | XMS_ITS | Encounter Summary ---
Author Name [facility] Organization [facility] Address [address] [place] [id number] Care Team Providers Care Tungsten Tender Name Role Phone LYDIA MG Primary Care [...] Holland's Name Patient's Relationship to Policy Holland [facility] MEDICARE [facility] ([facility]) Jul 12, 2023 [id number] [phone] [place] PATIENT [facility]ETNA [facility] (WNR) MEDICARE [facility] ([facility]) Jul 12, 2023 [id number] [phone] [place] PATIENT [facility] (WNR) MEDICARE [facility] ([facility]) Jul 12, 2019 [id number] [place] PATIENT [facility] ([facility]) MEDICARE [facility] ([facility]) Jul 12, 2018 [id number] [place] PATIENT AETNA [facility] (WNR) MEDICARE ADVANTAGE MCR (WNR) Jul 12, 2018 [id number] [phone] [place] PATIENT [employer] [facility] (WNR) MEDICARE [facility] (WNR) Sep 09, 2017 [id number] [phone] [place] PATIENT [employer] [facility] (WNR) MEDICARE ADVANTAGE MCR (WNR) Jul 12, 2017 [id number] [place] PATIENT Selected Encounter This section includes the information on record at [place] for the Encounter. Date/Time Encounter Type Encounter Description Reason Pro vider Source Oct 05, 2023 10:28 AM Outpatient Encounter PRIMARY CARE/MEDICINE [facility] Encounter Template Text not used by MT Plan of Treatment: Future Appointments (+ 6 months) and Future Tests (+/- 45 days) The Plan of Treatment section includes future care activities for the patient from all [place] treatmentfacilities. This section includes future appointments and future orders which are active, pending or scheduled. Future Appointments This section includes appointments that were scheduled to occur 6 months from the date of the Encounter, up to a maximum of 20 appointments. The data comes from all [place] treatment facilities. Appointment Date/Time Appointment Type Appointme nt Facility Name Oct 22, 2023 01:00 PM AMBULATORY - MEDICINE [place] [facility] [place] [facility] Oct 25, 2023 02:30 PM AMBULATORY - MEDICINE [place] [facility] [place] [facility] Oct 25, 2023 03:00 PM AMBULATORY - MEDICINE [place] [facility] [place] [facility] Oct 25, 2023 04:15 PM AMBULATORY - MEDICINE [place] [facility] [place] [facility] November 10, 2023 08:00 AM AMBULATORY - MEDICINE [place] [facility] [place] [facility] Jan 24, 2024 11:00 AM AMBULATORY - NONE [place] [facility] [place] [facility] Lab Results: +/- 30 days of the encounter This section includes the Chemistry and Hematology Lab Results on record with MT for the patient. Radiology Reports and Pathology Reports are provided separately, in subsequent sections. Lab Results This section contains the Chemistry/Hematology Results that were resulted 30 days before or 30 daysafter the date of the Encounter. Date/Time Source Result Type Result - Unit Interpretation Reference Range Comment Oct 15, 2023 11:06 AM [facility] BASIC METABOLIC PANEL (fasting) Specimen Type: SERUM No comment entered. Ordering Provider: PO SAHA Report Released Date/Time: Oct 15, 2023 11:05 AM Reporting Lab: [address] [address] Performing Lab: [address] [address] UREA NITROGEN 18 mg/dL 7-25 GLUCOSE 95 mg/dL 65-100 SODIUM 141 mmol/L 135-145 POTASSIUM 4.2 mmol/L 3.5-5.0 CHLORIDE 106 mmol/L 100-110 CO2 25 meq/L 20-30 CREATININE, Serum 1.37 mg/dL 0.50-1.40 eGFR(CKD-EPI 2020) 53 mL/min L >60 Oct 15, 2023 11:06 AM [facility] LIVER FUNCTION Specimen Type: SERUM No comment entered. Ordering Provider: PO SAHA Report Released Date/Time: Oct 15, 2023 11:05 AM Reporting Lab: [address] [address] Performing Lab: [address] [address] PROTEIN,TOTAL 7.1 g/dL 6.0-8.3 ALBUMIN 3.8 g/dL 3.5-5.0 ALKALINE PHOSPHATASE 50 U/L 40-150 AST 15 U/L 5-34 ALT 26 U/L BILIRUBIN, TOTAL 0.5 mg/dL 0.2-1.2 Oct 15, 2023 11:06 AM [facility] LIPID PANEL FASTING Specimen Type: SERUM No comment entered. Ordering Provider: PO SAHA Report Released Date/Time: Oct 15, 2023 11:05 AM Reporting Lab: [address] [place] [address] Performing Lab: [facility] [address] [facility] [address] CHOLESTEROL 179 mg/dL TRIGLYCERIDE 123 mg/dL 0-150 LDL calculated 111 mg/dL 0-129 CHOL/HDL 4.2 HDL CHOLESTEROL 43 mg/dL 40-60 Oct 15, 2023 11:06 AM [facility] IRON & TIBC PANEL Specimen Type: SERUM No comment entered. Ordering Provider: PO SAHA Report Released Date/Time: Oct 15, 2023 11:05 AM Reporting Lab: [address] [address] Performing Lab: [address] [address] TIBC 338 ug/dL 204-475 IRON 51 ug/dL 40-160 Transferrin Saturation 15.1 L 20.0-50.0 Oct 15, 2023 11:06 AM [facility] CBC AND DIFF (AUTO) Specimen Type: BLOOD No comment entered. Ordering Provider: PO SAHA Report Released Date/Time: Oct 15, 2023 11:05 AM Reporting Lab: [address] [address] Performing Lab: [address] [address] WBC 6.76 10*3/uL 4.50-11.00 RBC 5.57 10*6/uL 4.23-5.66 HGB 14.9 g/dL 12.8-17 HCT 47.5 39.2-50.4 MCV 85.3 fL 82-99 MCHC 31.4 g/dL 30.8-35.1 PLT 243 10*3/uL 140-360 RDW-CV 15.0 12.0-16.0 [place], Abs 0.49 10*3/uL 0.30-1.10 MCH 26.8 pg 26.2-32.6 Neut % 67.8 43.7-75.8 Lymph % 21.9 14.0-42.3 [place] % 7.2 5.1-13.7 Eos % 2.1 0.4-6.8 [...] and tobacco- related health factors from the [place] facility where the Encounter took place. Current Smoking Status This section includes the most current smoking, or tobacco-related health factor, from the [place] facility where the Encounter took place. Date/Time Current Smoking Status Comment Facil ity Jan 22, 2023 01:30 PM MT-TOBACCO QUIT 5 TO < 15 YRS [facility] Tobacco Use History This section includes a history of the smoking, or tobacco-related health factors, that were collected on or before the date of the Encounter. The data comes from the [place] facility where the Encounter took place. Date/Time Smoking Status/Tobacco Use Comment F acility Jan 22, 2023 01:30 PM MT-TOBACCO QUIT 5 TO < 15 YRS [facility] Feb 17, 2022 04:37 PM MT-TOBACCO FORMER USER [facility] Feb 17, 2022 04:37 PM MT-TOBACCO QUIT 1 TO < 5 YRS [facility] Advance Directives: All historical and current Section Date Range: From patient's date of to the date document was created. This section includes ALL of a patient's completed or amended [place] Advance and Rescinded Directives. The entries below indicate that a directive exists for the patient, but an actual copy is not included with this document. The data comes from all [place] facilities. Date Advance Directives Provider Source Oct 26, 2023 ADVANCE DIRECTIVE MARGARITA KRAFT [facility] Encounter Notes: All associated encounter notes This section contains the clinical notes associated to the Encounter. Date/Time Encounter Note(s) Provider Source Oct 05, 2023 10:28 AM ADMINISTRATIVE NOT E: LOCAL TITLE: FAX/MAIL RECEIVED STANDARD TITLE: ADMINISTRATIVE NOTE DATE OF NOTE: OCT 05, 2023@10:28 ENTRY DATE: OCT 05, 2023@10:28:53 AUTHOR: OLIVA GOFF EXP COSIGNER: URGENCY: STATUS: COMPLETED Document Received On: Sep Document Type: Other: Health care proxy Date of Service: Sep Facility and or Provider: Contact Information: PCP of Record: VALENTÍN SAHA Next visit with PCP: 10/22/2023 13:00 CWM/NO/PACT 3 Primary Care May keep copies of this document for up to 14 days and send the original for scanning. [facility] hosp[facility] patient care secretary is terri Gipson /flor/ Oliva Goff RN, BSN Primary Care Nurse Broadband Technician Signed: 10/05/2023 10:30 OLIVA GOFF [facility]
--- OUTSIDE RECORDS SUMMARY | 2024-06-26 09:22 | XMS_ITS ---
Author Name [facility] [place] Organization [facility] [place] Address [address] [place] [id number] Care Team Providers Care Custom Shoe Designer And Maker Name Role Phone LYDIA MG Primary Care [...] [facility]) MEDICARE ADVANTAGE [facility] ([facility]) Jul 12, 2023 [id number] [phone] [place] PATIENT AETNA [facility] (WNR) MEDICARE ADVANTAGE [facility] ([facility]) Jul 12, 2023 [id number] [place] PATIENT AETNA [facility] (WNR) MEDICARE [facility] ([facility]) Jul 12, 2019 [id number] [place] PATIENT [facility]WNR) MEDICARE ADVANTAGE [facility] (WNR) Jul 12, 2018 [id number] [place]EN[place]AL LLI[place] PATIENT AETNA [facility] (WNR) MEDICARE ADVANTAGE [facility] (WNR) Jul 12, 2018 [id number] [phone] [place] PATIENT [employer]IRE [employer] [facility] (WNR) MEDICARE ADVANTAGE [facility] (R) Sep 09, 2017 [id number] [place],AL LLIAM PATIENT [employer] [facility] (WNR) MEDICARE ADVANTAGE [facility] (R) Jul 12, 2017 [id number] [place],AL LLIAM PATIENT Selected Encounter This section includes the information on record at [place] for the Encounter. Date/Time Encounter Type Encounter Description Reason Provider Source Oct 25, 2023 02:30 PM OFF/OP EST NOVEMBER X REQ PHY/QHP PRIMARY CARE/MEDICINE ICD-10-CM I10 Essential (primary) hypertension DIPAK YANEZ E Encounter Template Text not used by [place] Assessments - Encounter Diagnoses This section includes the primary and secondary diagnoses documented for the Encounter. Date/Time Primary/Secondary Diagnosis Diagnosis Name Provider Source Oct 25, 2023 02:41 PM PRIMARY Essential (primary) hypertension [facility] Plan of Treatment: Future Appointments (+ 6 months) and Future Tests (+/- 45 days) The Plan of Treatment section includes future care activities for the patient from all [place] treatmentfacilities. This section includes future appointments and future orders which are active, pending or scheduled. Future Appointments This section includes appointments that were scheduled to occur 6 months from the date of the Encounter, up to a maximum of 20 appointments. The data comes from all [place] treatment facilities. Appointment Date/Time Appointment Type Appointme nt Facility Name November 10, 2023 08:00 AM [facility] Jan 24, 2024 11:00 AM [facility] Lab Results: +/- 30 days of the encounter This section includes the Chemistry and Hematology Lab Results on record with [place] for the patient. Radiology Reports and Pathology Reports are provided separately, in subsequent sections. Lab Results This section contains the Chemistry/Hematology Results that were resulted 30 days before or 30 daysafter the date of the Encounter. Date/Time Source Result Type Result - Unit Interpretation Reference Range Comment Oct 15, 2023 11:06 AM [facility] LIVER FUNCTION Specimen Type: SERUM No comment entered. Ordering Provider: PO AMADOR Report Released Date/Time: Oct 15, 2023 11:05 AM Reporting Lab: [address] [address] Performing Lab: [address] [address] PROTEIN,TOTAL 7.1 g/dL 6.0-8.3 ALBUMIN 3.8 g/dL 3.5-5.0 ALKALINE PHOSPHATASE 50 U/L 40-150 AST 15 U/L 5-34 ALT 26 U/L BILIRUBIN, TOTAL 0.5 mg/dL 0.2-1.2 Oct 15, 2023 11:06 AM [facility] BASIC METABOLIC PANEL (fasting) Specimen Type: SERUM No comment entered. Ordering Provider: PO AMADOR Report Released Date/Time: Oct 15, 2023 11:05 AM Reporting Lab: [address] [address] Performing Lab: [address] [address] UREA NITROGEN 18 mg/dL 7-25 GLUCOSE 95 mg/dL 65-100 SODIUM 141 mmol/L 135-145 POTASSIUM 4.2 mmol/L 3.5-5.0 CHLORIDE 106 mmol/L 100-110 CO2 25 meq/L 20-30 CREATININE, Serum 1.37 mg/dL 0.50-1.40 eGFR(CKD-EPI 2020) 53 mL/min L >60 Oct 15, 2023 11:06 AM [facility] LIPID PANEL FASTING Specimen Type: SERUM No comment entered. Ordering Provider: PO AMADOR Report Released Date/Time: Oct 15, 2023 11:05 AM Reporting Lab: [address] [place] [address] Performing Lab: [facility] [address] [facility] [address] CHOLESTEROL 179 mg/dL TRIGLYCERIDE 123 mg/dL 0-150 LDL calculated 111 mg/dL 0-129 CHOL/HDL 4.2 HDL CHOLESTEROL 43 mg/dL 40-60 Oct 15, 2023 11:06 AM [facility] IRON & TIBC PANEL Specimen Type: SERUM No comment entered. Ordering Provider: PO AMADOR Report Released Date/Time: Oct 15, 2023 11:05 AM Reporting Lab: [address] [address] Performing Lab: [address] [address] TIBC 338 ug/dL 204-475 IRON 51 ug/dL 40-160 Transferrin Saturation 15.1 L 20.0-50.0 Oct 15, 2023 11:06 AM [facility] CBC AND DIFF (AUTO) Specimen Type: BLOOD No comment entered. Ordering Provider: PO AMADOR Report Released Date/Time: Oct 15, 2023 11:05 AM Reporting Lab: [address] [address] Performing Lab: [address] [address] WBC 6.76 10*3/uL 4.50-11.00 RBC 5.57 10*6/uL 4.23-5.66 HGB 14.9 g/dL 12.8-17 HCT 47.5 39.2-50.4 MCV 85.3 fL 82-99 MCHC 31.4 g/dL 30.8-35.1 PLT 243 10*3/uL 140-360 RDW-CV 15.0 12.0-16.0 Alpine, Abs 0.49 10*3/uL 0.30-1.10 MCH 26.8 pg 26.2-32.6 Neut % 67.8 43.7-75.8 Lymph % 21.9 14.0-42.3 Alpine % 7.2 5.1-13.7 Eos % 2.1 0.4-6.8 [...] Source Oct 25, 2023 02:37 PM 120/80 [place] [facility] [place] [facility] [facility] Oct 25, 2023 02:37 PM 122/90 [place] [facility] [place] [facility] Oct 25, 2023 02:37 PM 70 144/80 [place] [facility] [place] [facility] Social History: Smoking Status (Most current) and Tobacco Use (All prior to encounter date) This section includes the most current, and the historical, smoking and tobacco- related health factors from the [place] facility where the Encounter took place. Current Smoking Status This section includes the most current smoking, or tobacco-related health factor, from the [place] facility where the Encounter took place. Date/Time Current Smoking Status Comment Facil ity Jan 22, 2023 01:30 PM VA-TOBACCO FORMER USER [place] [facility] [place] [facility] Tobacco Use History This section includes a history of the smoking, or tobacco-related health factors, that were collected on or before the date of the Encounter. The data comes from the [place] facility where the Encounter took place. Date/Time Smoking Status/Tobacco Use Comment F acility Jan 22, 2023 01:30 PM VA-TOBACCO QUIT 5 TO < 15 YRS [facility] [place] [facility] Feb 17, 2022 04:37 PM VA-TOBACCO FORMER USER [facility] [place] [facility] Feb 17, 2022 04:37 PM VA-TOBACCO QUIT 1 TO < 5 YRS [place] [facility] Advance Directives: All historical and current Section Date Range: From patient's date of to the date document was created. This section includes ALL of a patient's completed or amended [place] Advance and Rescinded Directives. The entries below indicate that a directive exists for the patient, but an actual copy is not included with this document. The data comes from all [place] facilities. Date Advance Directives Provider Source Oct 26, 2023 ADVANCE DIRECTIVE MARGARITA KRAFT [facility] Encounter Notes: All associated encounter notes This section contains the clinical notes associated to the Encounter. Date/Time Encounter Note(s) Provider Source Oct 25, 2023 02:27 PM PRIMARY CARE NOTE: LOCAL TITLE: WALK-IN NOTE PRIMARY CARE (T) STANDARD TITLE: PRIMARY CARE NOTE DATE OF NOTE: OCT 25, 2023@14:27 ENTRY DATE: OCT 25, 2023@14:27:35 AUTHOR: JOSHUA YANEZ EXP COSIGNER: URGENCY: STATUS: COMPLETED Blood pressure check: F: [facility] D: Wilmer here for blood pressure check per PCP Valentín Amador. Len has history of hypertension. Presently he is taking this medication for elevated B/P: Non-VA METOPROLOL TARTRATE TAB 25MG TAKE ONE TABLET BY MOUTH TWICE DAILY. A: B/P today is 144/80 in his left arm (automatic), 120/80 left arm (MANUAL) and 122/90 in his right arm (manual cuff used with arm elevated at heart level) Pulse is 70. Will review results with pcp, Wilmer to discuss with his outside prescriber. R: tolerated well and left area ab estuardo. /flor/ JOSHUA YANEZ RN REGISTERED NURSE Signed: 10/25/2023 14:41 Receipt Acknowledged By: 10/26/2023 17:15 /flor/ Valentín Amador PA-C STAFF PHYSICIAN HEDIS NURSE JOSHUA YANEZ [facility]
--- OUTSIDE RECORDS SUMMARY | 2024-06-26 09:22 | XMS_ITS | Encounter Summary ---
Author Name [facility] [place] Organization [facility] [place] Address [address] [place] [address] Care Team Providers Care Heel Edge Inker Machine Name Role Phone LYDIA MG Primary Care [...] Holland's Name Patient's Relationship to Policy [facility] MEDICARE ADVANTAGE MCR ([facility]) Jul 12, 2023 [id number] [phone] [place] PATIENT [facility]) MEDICARE ADVANTAGE MCR ([facility]) Jul 12, 2023 [id number] [phone] [place] PATIENT [facility] ([facility] MEDICARE ADVANTAGE MCR ([facility]) Jul 12, 2019 [id number] [place] PATIENT [facility]) MEDICARE ADVANTAGE MCR ([facility]) Jul 12, 2018 [id number] [phone] [place] PATIENT A[employer] MCR ([facility]) MEDICARE ADVANTAGE MCR ([facility]) Jul 12, 2018 [id number] [phone] [place] PATIENT [place] [employer] [facility] ([place]) MEDICARE [facility] ([facility]) Sep 09, 2017 [id number] [place] PATIENT [employer] [facility] ([facility]) MEDICARE ADVANTAGE MCR (R) Jul 12, 2017 [id number] [place] PATIENT Selected Encounter This section includes the information on record at [place] for the Encounter. Date/Time Encounter Type Encounter Description Reason Provider Source Oct 22, 2023 01:00 PM OFFICE O/P EST LOW 20 MIN PRIMARY CARE/MEDICINE ICD-10-CM J44.9 Chronic obstructive pulmonary disease, unspecified MARIA AWILL LAURA F IHE Encounter Template Text not used by [place] Assessments - Encounter Diagnoses This section includes the primary and secondary diagnoses documented for the Encounter. Date/Time Primary/Secondary Diagnosis Diagnosis Name Provider Source Oct 22, 2023 01:37 PM PRIMARY Chronic obstructive pulmonary disease, unspecified PO AMADORM Jamal [place] [facility] [place] [facility] Oct 22, 2023 01:37 PM SECONDARY Acute embolism and thrombosis of deep vn unsp up extrem PO AMADOR Jamal [place] [facility] [place] [facility] Oct 22, 2023 01:37 PM SECONDARY Encounter for immunization PO AMADORAleksandr Berry [facility] [place] [facility] Oct 22, 2023 01:37 PM SECONDARY Other pulmonary embolism without acute cor pulmonale PO AMADORAleksandr Berry [facility] [place] [facility] Oct 22, 2023 01:37 PM SECONDARY Sjogren syndrome, unspecified PO AMADOR Jamal [place] [facility] [place] [facility] Plan of Treatment: Future Appointments (+ 6 months) and Future Tests (+/- 45 days) The Plan of Treatment section includes future care activities for the patient from all [place] treatmentfacilities. This section includes future appointments and future orders which are active, pending or scheduled. Future Appointments This section includes appointments that were scheduled to occur 6 months from the date of the Encounter, up to a maximum of 20 appointments. The data comes from all [place] treatment facilities. Appointment Date/Time Appointment Type Appointme nt Facility Name Oct 25, 2023 02:30 PM [facility]BUL[facility] Oct 25, 2023 03:00 PM [facility]ICINE [facility] Oct 25, 2023 04:15 PM [facility] November 10, 2023 08:00 AM AMBULATORY - MEDICINE DE C [facility] Jan 24, 2024 11:00 AM AMBULATORY - NONE [facility] Lab Results: +/- 30 days of the encounter This section includes the Chemistry and Hematology Lab Results on record with [place] for the patient. Radiology Reports and Pathology Reports are provided separately, in subsequent sections. Lab Results This section contains the Chemistry/Hematology Results that were resulted 30 days before or 30 daysafter the date of the Encounter. Date/Time Source Result Type Result - Unit Interpretation Reference Range Comment Oct 15, 2023 11:06 AM [facility] BASIC METABOLIC PANEL (fasting) Specimen Type: SERUM No comment entered. Ordering Provider: PO AMADOR Report Released Date/Time: Oct 15, 2023 11:05 AM Reporting Lab: [facility] [address] [address] Performing Lab: [address] [address] UREA NITROGEN 18 mg/dL 7-25 GLUCOSE 95 mg/dL 65-100 SODIUM 141 mmol/L 135-145 POTASSIUM 4.2 mmol/L 3.5-5.0 CHLORIDE 106 mmol/L 100-110 CO2 25 meq/L 20-30 CREATININE, Serum 1.37 mg/dL 0.50-1.40 eGFR(CKD-EPI 2020) 53 mL/min L >60 Oct 15, 2023 11:06 AM [facility] LIVER FUNCTION Specimen Type: SERUM No comment entered. Ordering Provider: PO AMADOR Report Released Date/Time: Oct 15, 2023 11:05 AM Reporting [facility] [address] [address] Performing Lab: [facility] [address] [address] PROTEIN,TOTAL 7.1 g/dL 6.0-8.3 ALBUMIN 3.8 g/dL 3.5-5.0 ALKALINE PHOSPHATASE 50 U/L 40-150 AST 15 U/L 5-34 ALT 26 U/L BILIRUBIN, TOTAL 0.5 mg/dL 0.2-1.2 Oct 15, 2023 11:06 AM [facility] LIPID PANEL FASTING Specimen Type: SERUM No comment entered. Ordering Provider: PO AMADOR Report Released Date/Time: Oct 15, 2023 11:05 AM Reporting Lab: [facility] [address] [address] Performing Lab: [facility] [address] [address] CHOLESTEROL 179 mg/dL TRIGLYCERIDE 123 mg/dL 0-150 LDL calculated 111 mg/dL 0-129 CHOL/HDL 4.2 HDL CHOLESTEROL 43 mg/dL 40-60 Oct 15, 2023 11:06 AM [facility] IRON & TIBC PANEL Specimen Type: SERUM No comment entered. Ordering Provider: PO AMADOR Report Released Date/Time: Oct 15, 2023 11:05 AM Reporting Lab: [facility] [address] [address] Performing Lab: [facility] [address] [address] TIBC 338 ug/dL 204-475 IRON 51 ug/dL 40-160 Transferrin Saturation 15.1 L 20.0-50.0 Oct 15, 2023 11:06 AM [facility] CBC AND DIFF (AUTO) Specimen Type: BLOOD No comment entered. Ordering Provider: VANWAGNER,PO DEVONTE F Report Released Date/Time: Oct 15, 2023 11:05 AM Reporting Lab: [facility] [address] [address] Performing Lab: [facility] [address] [address] WBC 6.76 10*3/uL 4.50-11.00 RBC 5.57 10*6/uL 4.23-5.66 HGB 14.9 g/dL 12.8-17 HCT 47.5 39.2-50.4 MCV 85.3 fL 82-99 MCHC 31.4 g/dL 30.8-35.1 PLT 243 10*3/uL 140-360 RDW-CV 15.0 12.0-16.0 Lassen, Abs 0.49 10*3/uL 0.30-1.10 MCH 26.8 pg 26.2-32.6 Neut % 67.8 43.7-75.8 Lymph % 21.9 14.0-42.3 [place] % 7.2 5.1-13.7 Eos % 2.1 0.4-6.8 [...] Height Weight Body Mass Index Source Oct 22, 2023 12:55 PM 98.1 88 144/94 16 90 0 196 32 [facility] Immunizations: All administered on the encounter date This section contains immunizations associated to the Encounter. Immunization Series Date Issued Reaction Comments PNEUMOCOCCAL CONJUGATE PCV20 , POLYSACCHARIDE [id number] CONJUGATE, ADJUVANT, PF Oct 22, 2023 TDAP Oct 22, 2023 Social History: Smoking Status (Most current) and Tobacco Use (All prior to encounter date) This section includes the most current, and the historical, smoking and tobacco- related health factors from the [place] facility where the Encounter took place. Current Smoking Status This section includes the most current smoking, or tobacco-related health factor, from the [place] facility where the Encounter took place. Date/Time Current Smoking Status Comment Valeria ity Jan 22, 2023 01:30 PM VA-TOBACCO FORMER USER [facility] Tobacco Use History This section includes a history of the smoking, or tobacco-related health factors, that were collected on or before the date of the Encounter. The data comes from the [place] facility where the Encounter took place. Date/Time Smoking Status/Tobacco Use Comment F acility Jan 22, 2023 01:30 PM VA-TOBACCO QUIT 5 TO < 15 YRS [facility] Feb 17, 2022 04:37 PM VA-TOBACCO FORMER USER [facility] Feb 17, 2022 04:37 PM [place]-TOBACCO QUIT 1 TO < 5 YRS [facility] Advance Directives: All historical and current Section Date Range: From patient's date of to the date document was created. This section includes ALL of a patient's completed or amended [place] Advance and Rescinded Directives. The entries below indicate that a directive exists for the patient, but an actual copy is not included with this document. The data comes from all [place] facilities. Date Advance Directives Provider Source Oct 26, 2023 ADVANCE DIRECTIVE MARGARITA [facility] Encounter Notes: All associated encounter notes This section contains the clinical notes associated to the Encounter. Date/Time Encounter Note(s) Provider Source Oct 22, 2023 01:34 PM PREVENTIVE MEDICINE NURSING NOTE: LOCAL TITLE: CLINICAL REMINDERS/NURSING STANDARD TITLE: PREVENTIVE MEDICINE NURSING NOTE DATE OF NOTE: OCT 22, 2023@13:34 ENTRY DATE: OCT 22, 2023@13:35:02 AUTHOR: HARPAL VILLALBA EXP COSIGNER: URGENCY: STATUS: COMPLETED Tdap Immunization: Administered: TDAP Date Administered: Oct 22, 2023 13:00 Series: Booster Milker Machine: [employer] Lot: [id number] Exp Date: Nov 04, 2025 [facility]: [id number] Admin Route/Site: INTRAMUSCULAR/LEFT DELTOID Dosage: 0.5mL Vaccine Information Statement(s): TDAP (TETANUS, DIPHTHERIA, PERTUSSIS) VACCINE VIS Feb 14, 2021 ([facility]) Order By: Policy Administered By: Harpal Villalba Vaccine Information Sheet (VIS) was given to the patient/caregiver, education regarding adverse reactions was discussed, as well as barriers to learning, if any, were acknowledged. Pneumococcal Conjugate Vaccine (PCV15/PCV20): PCV20 (Prevnar 20) Administered: PNEUMOCOCCAL CONJUGATE PCV20, POLYSACCHARIDE [id number] CONJUGATE, ADJUVANT, PF Date Administered: Oct 22, 2023 13:00 Series: Booster Milker Machine: [email or web address] Lot: [id number] Exp Date: May 11, 2024 [facility]: [phone] Admin Route/Site: INTRAMUSCULAR/LEFT DELTOID Dosage: 0.5mL Vaccine Information Statement(s): PNEUMOCOCCAL CONJUGATE ([id number]) VIS November 20, 2022 ([facility]) Order By: Policy Administered By: Harpal Villalba Vaccine Information Sheet (VIS) was given to the patient/caregiver, education regarding adverse reactions was discussed, as well as barriers to learning, if any, were acknowledged. /flor/ HARPAL VILLALBA LPN HARPAL VILLALBA LPN Signed: 10/22/2023 13:37 HARPAL VILLALBA [facility] [place] [facility] Oct 22, 2023 01:31 PM PHYSICIAN PRIVATE BRANCH EXCHANGE INSTALLER NOTE: LOCAL TITLE: PA NOTE STANDARD TITLE: PHYSICIAN PRIVATE BRANCH EXCHANGE INSTALLER NOTE DATE OF NOTE: OCT 22, 2023@13:31 ENTRY DATE: OCT 22, 2023@13:32:01 AUTHOR: VALENTÍN AMADOR EXP COSIGNER: URGENCY: STATUS: COMPLETED CC/HPI/A/P: 77 year old MALE here in follow-up for; Htn, repeat in the room is still a bit above goal, w/i bp check in two weeks. Wheelchair arm is rotted out, to PT. Review of systems: Patient reports no changes from [facility], in meds or any admissions. Active problems - Computerized Problem List is the source for the followin. Exposure to potentially hazardous substance ILIANA Screening Snomed Code connected 01/22/23 2. Moderate protein-calorie malnutrition (weight for age 60-74 percent of stand 3. Pain 4. Acute pulmonary embolism 5. COPD - Chronic Obstructive Pulmonary Disease ([facility] [id number]) 6. Depression ([facility] [id number]) 7. Deep venous thrombosis of upper extremity Left 8. H/O: rheumatoid arthritis 9. Sjogren syndrome 10. PE - Pulmonary Embolism ([facility] [id number]) SERVICE CONNECTED % - NONE FOUND VA and Non VA meds were reconciled with the patient who left with a corrected copy. See medication page for details. Active and Recently Outpatient Medications (excluding Supplies): Inactive Outpatient Medications Status 1) SODIUM CHLORIDE 0.9% IRRG SOLN IRRIGATE DIRECTED TOPICALLY EVERY OTHER DAY Active Non-VA Medications Status 1) Non-VA ACETAMINOPHEN 500MG TAB 1000MG BY MOUTH ACTIVE NEEDED 2) Non-VA ALBUTEROL 90MCG (CFC-F) 200D ORAL INHL 2 PUFFS ACTIVE BY MOUTH EVERY 6 HOURS NEEDED 3) Non-VA DULOXETINE HCL 20MG EC CAP 20MG BY MOUTH AT ACTIVE BEDTIME 4) Non-VA FLUTICASONE PROP 50MCG 120D NASAL INHL 2 ACTIVE SPRAYS INTO EACH NOSTRIL ONCE DAILY 5) Non-VA GABAPENTIN 300MG CAP 600MG BY MOUTH EVERY ACTIVE EVENING 6) Non-VA HYDROMORPHONE HCL 2MG TAB 2MG BY MOUTH THREE ACTIVE TIMES DAILY NEEDED 7) Non-VA METOPROLOL TARTRATE 25MG TAB 25MG BY MOUTH ACTIVE TWICE DAILY 8) Non-VA NALOXONE HCL 4MG/SPRAY SOLN NASAL SPRAY 1 ACTIVE SPRAY ONE NOSTRIL ONE TIME NEEDED 9) Non-VA RIVAROXABAN 10MG TAB 10MG BY MOUTH ONCE DAILY ACTIVE 10) Non-VA YHSITFCCBMTK62.5/VILANTERO L25MCG 30D INH 1 ACTIVE INHALATION BY MOUTH ONCE DAILY 11) Non-VA UPADACITINIB 15MG 24HR SA TAB 15MG BY MOUTH ACTIVE ONCE DAILY 12 Total Medications 98.1 F [36.7 C] (10/22/2023 12:55) 88 (10/22/2023 12:55) 16 (10/22/2023 12:55) 144/94 (10/22/2023 12:55) 0 (10/22/2023 12:55) 66 in [167.6 cm] (02/25/2022 12:17) 196 lb [88.90 kg] (10/22/2023 12:55) BMI: 31.7 Neuro: Alert and oriented times three, grossly nonfocal, nasolabial folds intact. Recent labs reviewed with patient today:yes /es/ Valentín Amador PA-C STAFF PHYSICIAN PRIVATE BRANCH EXCHANGE INSTALLER Signed: 10/22/2023 13:37 VALENTÍN AMADOR DE [facility] Oct 22, 2023 12:59 PM ACCOUNTING OF DISCLOSURES NOTE: LOCAL TITLE: STATE PRESCRIPTION DRUG MONITORING PROGRAM STANDARD TITLE: ACCOUNTING OF DISCLOSURES NOTE DATE OF NOTE: OCT 22, 2023@12:59:06 ENTRY DATE: OCT 22, 2023@12:59:06 AUTHOR: VALENTÍN AMADOR EXP COSIGNER: URGENCY: STATUS: COMPLETED This PDMP query was submitted by Valentín Amador. The clinical justification for this PDMP query is to review controlled substances prescribed outside of the [facility], and any additional information that may become available, as an important component of standard clinical care, and in accordance with [facility] policy. Patient information was shared with the PDMP [place]. Prescription(s) filled outside the [facility] in the last 90 days are noted. However, they do not raise significant safety concerns and do not influence the treatment plan at this time. nivia Prescriptions: 49 Total Private Pay: 2 Fill Date ID Written Drug Qty Days Prescriber Rx # Pharmacy Refill Daily Dose * Pymt Type RV SERVICE TECHNICIAN 10/10/2023 4 08/16/2023 Gabapentin 800 Mg Tablet 90.00 30 [facility] [id number] 07/12 [place] 09/27/2023 4 09/27/2023 Hydromorphone 4 Mg Tablet 30.00 20 [facility] [id number] [facility] 0/0 30.00 MME [place] 09/14/2023 4 08/16/2023 Gabapentin 800 Mg Tablet 90.00 30 Ol [facility] [id number] [facility] 01 [place] 08/16/2023 4 07/15/2023 Gabapentin 800 Mg Tablet 90.00 30 Ol Buc [id number] [facility] 07/12 [place] 08/13/2023 4 08/13/2023 Hydromorphone 4 Mg Tablet 30.00 10 Ol Buc [id number] [facility] 0/0 60.00 MME [place] 07/15/2023 4 07/15/2023 Gabapentin 800 Mg Tablet 90.00 30 Ol Buc [id number] [facility] 0 [place] 06/26/2023 4 06/17/2023 Fentanyl 12 Mcg/hr Patch 5.00 15 Ol [facility] [id number] [facility] 0/0 28.80 MME [place] 06/17/2023 4 06/17/2023 Hydromorphone 2 Mg Tablet 60.00 30 Ol Buc [id number] [facility] ([facility] 0/0 20.00 [place] 06/16/2023 4 05/18/2023 Gabapentin 800 Mg Tablet 90.00 30 Ol Buc [id number] [facility] ([facility] 07/12 [place] 06/11/2023 4 06/07/2023 Fentanyl 12 Mcg/hr Patch 5.00 15 Ol [facility] [id number] [facility] ([facility] 0/0 28.80 MME Medicare Aleksandr /flor/ Valentín Amador PA-C STAFF PHYSICIAN PRIVATE BRANCH EXCHANGE INSTALLER Signed: 10/22/2023 13:00 VALENTÍN AMADOR [facility] [place] [facility] Oct 22, 2023 12:58 PM PREVENTIVE MEDICINE NURSING NOTE: LOCAL TITLE: CLINICAL REMINDERS/NURSING STANDARD TITLE: PREVENTIVE MEDICINE NURSING NOTE DATE OF NOTE: OCT 22, 2023@12:58 ENTRY DATE: OCT 22, 2023@12:59:06 AUTHOR: HARPAL VILLALBA EXP COSIGNER: URGENCY: STATUS: COMPLETED PAVE Foot Check: Patient declined limb care exam. Comment: feet are banmdaged s/p surgical debridment The patient was advised the [place] mandates all patients with diabetes mellitus, end stage renal disease, peripheral vascular disease, or sensory neuropathy should have a complete foot check completed annually. This includes a visual exam of the skin, pedal pulses and a sensory exam. Patients with any abnormality noted during the foot check should be referred to a specialist. /flor/ HARPAL VILLALBA LPN Signed: 10/22/2023 13:00 HARPAL VILLALBA DE [facility]
--- OUTSIDE RECORDS SUMMARY | 2024-06-26 09:22 | XMS_ITS | Encounter Summary ---
Author Name [facility] [place] [facility] [place] [facility] [facility] [place] Address [address] [place] [address] Care Team Providers Care Director Child Name Role Phone LYDIA MG Primary Care [...] Holland's Name Patient's Relationship to Policy [facility] MCR ([facility]) Jul 12, 2023 [id number] [phone] [place] PATIENT AETNA [facility] (WNR) MEDICARE ADVANTAGE MCR ([facility]) Jul 12, 2023 [id number] [place] PATIENT AETNA [facility] (WNR) MEDICARE ADVANTAGE MCR (R) Jul 12, 2019 [id number] [place] [facility] ([facility]) Jul 12, 2018 [id number] [phone] [place] PATIENT AETNA [facility] (WN) MEDICARE ADVANTAGE MCR ([facility]) Jul 12, 2018 [id number] [phone] [place] PATIENT EMPIRE BCBS [facility] (WN) MEDICARE ADVANTAGE MCR ([facility]) Sep 09, 2017 [id number] [place] PATIENT EMPIRE [employer] [facility] (WNR) MEDICARE ADVANTAGE MCR ([facility]) Jul 12, 2017 [id number] [place] PATIENT Selected Encounter This section includes the information on record at [place] for the Encounter. Date/Time Encounter Type Encounter Description Reason Provider Source Oct 25, 2023 03:00 PM COMPRE OPH EXAM NEW PT 1/> OPTOMETRY ICD-10-CM H40.013 Open angle with borderline findings, low risk, bilateral RENATE LEMUS I[facility]ah Encounter Template Text not used by [place] Assessments - Encounter Diagnoses This section includes the primary and secondary diagnoses documented for the Encounter. Date/Time Primary/Secondary Diagnosis Diagnosis Name Provider Source Oct 27, 2023 03:55 PM PRIMARY Open angle with borderline findings, low risk, bilateral RENATE LEMUS [facility] [place] [facility] Oct 27, 2023 03:55 PM SECONDARY Presence of intraocular lens RENATE LEMUS [facility] Plan of Treatment: Future Appointments (+ [...] 10, 2023 08:00 AM AMBULATORY - MEDICINE [facility] [place] [facility] Jan 24, 2024 11:00 AM [facility] Lab Results: +/- 30 days of the encounter This section includes the Chemistry and Hematology Lab Results on record with [place] for the patient. Radiology Reports and Pathology Reports are provided separately, in subsequent sections. Lab Results This section contains the Chemistry/Hematology Results that were resulted 30 days before or 30 daysafter the date of the Encounter. Date/Time Source Result Type Result - Unit Interpretation Reference Range Comment Oct 15, 2023 11:06 AM [facility] BASIC METABOLIC PANEL (fasting) Specimen Type: SERUM No comment entered. Ordering Provider: PO SAHA Report Released Date/Time: Oct 15, 2023 11:05 AM Reporting Lab: [address] [address] Performing Lab: [address] [address] UREA NITROGEN 18 mg/dL 7-25 GLUCOSE 95 mg/dL 65-100 SODIUM 141 mmol/L 135-145 POTASSIUM 4.2 mmol/L 3.5-5.0 CHLORIDE 106 mmol/L 100-110 CO2 25 meq/L 20-30 CREATININE, Serum 1.37 mg/dL 0.50-1.40 eGFR(CKD-EPI 2020) 53 mL/min L >60 Oct 15, 2023 11:06 AM [facility] LIVER FUNCTION Specimen Type: SERUM No comment entered. Ordering Provider: PO SAHA Report Released Date/Time: Oct 15, 2023 11:05 AM Reporting Lab: [address] [address] Performing Lab: [address] [address] PROTEIN,TOTAL 7.1 g/dL 6.0-8.3 ALBUMIN 3.8 g/dL 3.5-5.0 ALKALINE PHOSPHATASE 50 U/L 40-150 AST 15 U/L 5-34 ALT 26 U/L BILIRUBIN, TOTAL 0.5 mg/dL 0.2-1.2 Oct 15, 2023 11:06 AM [facility] LIPID PANEL FASTING Specimen Type: SERUM No comment entered. Ordering Provider: PO SAHA Report Released Date/Time: Oct 15, 2023 11:05 AM Reporting Lab: [facility] [address] [facility] [address] Performing Lab: [address] [address] CHOLESTEROL 179 mg/dL TRIGLYCERIDE 123 mg/dL 0-150 LDL calculated 111 mg/dL 0-129 CHOL/HDL 4.2 HDL CHOLESTEROL 43 mg/dL 40-60 Oct 15, 2023 11:06 AM [facility] IRON & TIBC PANEL Specimen Type: SERUM No comment entered. Ordering Provider: PO SAHA Report Released Date/Time: Oct 15, 2023 11:05 AM Reporting Lab: [address] [address] Performing Lab: [address] [address] TIBC 338 ug/dL 204-475 IRON 51 ug/dL 40-160 Transferrin Saturation 15.1 L 20.0-50.0 Oct 15, 2023 11:06 AM [facility] CBC AND DIFF (AUTO) Specimen Type: BLOOD No comment entered. Ordering Provider: PO SAHA Report Released Date/Time: Oct 15, 2023 11:05 AM Reporting Lab: [address] [address] Performing Lab: [address] [address] WBC 6.76 10*3/uL 4.50-11.00 RBC 5.57 10*6/uL 4.23-5.66 HGB 14.9 g/dL 12.8-17 HCT 47.5 39.2-50.4 MCV 85.3 fL 82-99 MCHC 31.4 g/dL 30.8-35.1 PLT 243 10*3/uL 140-360 RDW-CV 15.0 12.0-16.0 Chambers, Abs 0.49 10*3/uL 0.30-1.10 MCH 26.8 pg 26.2-32.6 Neut % 67.8 43.7-75.8 Lymph % 21.9 14.0-42.3 Chambers % 7.2 5.1-13.7 Eos % 2.1 0.4-6.8 [...] Source Oct 25, 2023 02:37 PM 120/80 [facility] [place] [facility] Oct 25, 2023 02:37 PM 122/90 [facility] [place] [facility] Oct 25, 2023 02:37 PM 70 144/80 [facility] Social History: Smoking Status (Most [...] Facil ity Jan 22, 2023 01:30 PM IN-TOBACCO QUIT 5 TO < 15 YRS [facility] Tobacco Use History This section includes a history of the smoking, or tobacco-related health factors, that were collected on or before the date of the Encounter. The data comes from the [place] facility where the Encounter took place. Date/Time Smoking Status/Tobacco Use Comment F acility Jan 22, 2023 01:30 PM IN-TOBACCO QUIT 5 TO < 15 YRS [facility] Feb 17, 2022 04:37 PM VA-TOBACCO FOR[facility]ER [facility] Feb 17, 2022 04:37 PM VA-TOBACCO QUIT 1 TO < 5 YRS [facility] Advance Directives: All historical and current [...] Oct 26, 2023 ADVANCE DIRECTIVE MARGARITA KRAFT [facility] Encounter Notes: All associated encounter notes This section contains the clinical notes associated to the Encounter. Date/Time Encounter Note(s) Provider Source Oct 25, 2023 04:19 PM OPTOMETRY NOTE: LOCAL TITLE: OPTOMETRY NOTE STANDARD TITLE: OPTOMETRY NOTE DATE OF NOTE: OCT 25, 2023@16:19 ENTRY DATE: OCT 25, 2023@16:20:01 AUTHOR: ISAIAH LEMUS EXP COSIGNER: URGENCY: STATUS: COMPLETED I saw this patient in conjunction with the student and agree with stated findings and plan as noted below after reviewing both the history and repeating lorenz elements of the physical exam now. Patient new to [place] eye clinic with history of previous bilateral cataract surgery with YAG capsulotomy left eye presents today for comprehensive eye examination complaining of decreased distance vision while trying to read print on the television. His last eye examination was 2 to 3 years ago in [place]. Anterior segment evaluation shows rosacea facies with meibomian gland dysfunction all 4 lids with reduced TBUT but without moy corneal staining. Bilateral pseudophakia with YAG capsulotomy left eye. There is no evidence of pigment dispersion syndrome or pseudoexfoliation either eye but intraocular pressure is asymmetric. Repeated by me now with hand-held Goldmann tonometry noted to be 16 mmHg right eye 23 mmHg left eye 3:25 PM. Dilated fundus examination shows healthy disc appearance 0. cup-to-disc ratio in each eye with good color, intact rim tissue without splinter hemorrhage or notching. Remainder of retinal examination each eye is unremarkable with normal macula and no evidence of retinal hole, tear, detachment either eye. 0.55 cup-to-disc ratio right eye 0.65 cup-to-disc ratio left eye with healthy disc appearance appearance. Pachymetry obtained today and noted to be with thinner than average each eye. Overall index of suspicion for glaucoma remains low at present we will monitor his bilateral low risk glaucoma suspect with plan for repeat exam and repeat OCT in 12 months. Ophthalmic medication reconciliation: He is currently not taking or prescribed any ocular medications. EYE: Visual Function Reminder: Normal Vision: 20/25 or better: Unspecified disorder of refraction or accommodation (367.9). Medication Reconciliation: Outpatient: Has the patient been taking medications as documented in the EMLR? YES: The patient has been taking medications as documented in the EMLR. Essential Medication List for Review used to complete this medication reconciliation. INCLUDED IN THIS LIST: Alphabetical list of active outpatient prescriptions dispensed from this [place] (local) and dispensed from another [place] or [facility] facility (remote) as well as inpatient orders (local, pending and active), local clinic medications, locally documented non-VA medications, and local prescriptions that have or been discontinued in the past 90 days. - All changes in medications, including all non-VA/Herbal/OTC medications were entered into CPRS. - If there were any medications the patient should no longer take, they were discontinued. - The patient/caregiver was instructed to update this list, discard old lists, and take this list to the next appointment, whether with a VA or non-VA provider. Medication List: JLV Link Data on this list may not be complete. Please check JLV. Allergies/ADRs (Tool #5) FACILITY ALLERGY/ADR -------- [place] [facility] [place] [facility] - NO KNOWN ALLERGIES Med. Reconciliation (Tool #1) INCLUDED IN THIS LIST: Alphabetical list of active outpatient prescriptions dispensed from this [place] (local) and dispensed from another [place] or [facility] facility (remote) as well as inpatient orders (local pending and active), local clinic medications, locally documented non-VA medications, and local prescriptions that have or been discontinued in the past 90 days. Non-VA Meds Last Documented On: Jan 22, 2023 NOTE The display of VA prescriptions dispensed from another [place] or [facility] facility (remote) is limited to active outpatient prescription entries matched to National Drug File at the originating site and may not include some items such as investigational drugs, compounds, etc. NOT INCLUDED IN THIS LIST: Medications self-entered by the patient into personal health records (i.e. [place]) are NOT included in this list. Non-VA medications documented outside this [place], remote inpatient orders (regardless of status) and remote clinic medications are NOT included in this list. The patient and provider must always discuss medications the patient is taking, regardless of where the medication was dispensed or obtained. Non-VA ACETAMINOPHEN 500MG TAB TAKE TWO TABLETS BY MOUTH NEEDED Medication prescribed by Non-VA provider. Non-VA ALBUTEROL 90MCG (CFC-F) 200D ORAL INHL INHALE 2 PUFFS BY MOUTH EVERY 6 HOURS NEEDED Medication prescribed by Non-VA provider. Non-VA DULOXETINE HCL 20MG EC CAP TAKE 1 CAPSULE BY MOUTH AT BEDTIME Non-VA FLUTICASONE PROP 50MCG 120D NASAL INHL INSTILL 2 SPRAYS INTO EACH NOSTRIL ONCE DAILY Non-VA GABAPENTIN 300MG CAP TAKE 2 CAPSULES BY MOUTH EVERY EVENING AND TAKE 4 CAPSULES BY MOUTH AT BEDTIME Indication: FOR NERVE PAIN Non-VA HYDROMORPHONE HCL 2MG TAB TAKE ONE TABLET BY MOUTH THREE TIMES DAILY NEEDED Medication prescribed by Non-VA provider. Non-VA METOPROLOL TARTRATE 25MG TAB TAKE ONE TABLET BY MOUTH TWICE DAILY Non-VA NALOXONE HCL 4MG/SPRAY SOLN NASAL SPRAY INSTILL 1 SPRAY ONE NOSTRIL ONE TIME NEEDED Medication prescribed by Non-VA provider. Non-VA RIVAROXABAN 10MG TAB TAKE ONE TABLET BY MOUTH ONCE DAILY Indication: TO PREVENT BLOOD CLOTS OUTPT SODIUM CHLORIDE 0.9% IRRG SOLN (Status = ) IRRIGATE DIRECTED TOPICALLY EVERY OTHER DAY Rx# [id number] Last Released: 07/29/23 Qt Supply: Rx Expiration Date: 08/20/23 Refills Remainin OUTPT SODIUM CHLORIDE 0.9% IRRG SOLN (Status = Discontinued) IRRIGATE UDP TOPICALLY EVERY OTHER DAY Rx# [id number] Last Released: Supply: Rx Expiration Date: 10/01/23 Refills Remainin OUTPT SODIUM CHLORIDE 0.9% IRRG SOLN (Status = ) IRRIGATE DIRECTED TOPICALLY EVERY OTHER DAY Rx# [id number] Last Released: 09/08/23 Qty/ Supply: Rx Expiration Date: 10/03/23 Refills Remainin Non-VA [id number]/VILANTEROL 25MCG 30D INH PZJLMEWXGAZS41.5/VILANTEROL 25MCG 30D INH INHALE 1 INHALATION BY MOUTH ONCE DAILY Non-VA UPADACITINIB 15MG 24HR SA TAB TAKE ONE TABLET BY MOUTH ONCE DAILY Medication prescribed by Non-VA provider. SUPPLIES OUTPT BRIEF,PROTECTIVE SUPER ABS LG ATTENDS (Status = Discontinued) USE 1 BRIEF DIRECTED TWICE DAILY NEEDED INCONTINENCE Rx# [id number] Last Released: 04/26/23 Qt/Days Supply: Rx Expiration Date: 04/23/24 Refills Remainin Indication: INCONTINENCE OUTPT DEPEND UNDERWEAR,MAXIMUM,MEN LARGE (Status = Active) USE 1 BRIEF DIRECTED TWICE DAILY Rx# [id number] Last Released: Qty/Days Supply: Rx Expiration Date: 10/22/24 Refills Remainin Indication: INCONTINENCE OUTPT DRESSING NON-ADHERE OIL/EMULSION [id number] (Status = ) APPLY 1 DRESSING TOPICALLY EVERY OTHER DAY Rx# [id number] Last Released: 08/02/23 Qty/Days Supply: Rx Expiration Date: 08/20/23 Refills Remainin OUTPT DRESSING NON-ADHERE OIL/EMULSION [id number] (Status = ) APPLY 1 DRESSING TOPICALLY EVERY OTHER DAY Rx# [id number] Last Released: 09/07/23 Qty/Days Supply: Rx Expiration Date: 10/01/23 Refills Remainin OUTPT DRESSING,ALLEVYN GNTL BORDER 3X3IN #[id number] (Status = Discontinued) APPLY 1 DRESSING TOPICALLY EVERY OTHER DAY Rx# [id number] Last Released: 08/04/23 Qty/Days Supply: Rx Expiration Date: 08/20/23 Refills Remainin OUTPT DRESSING,AQUACEL AG ADVAN 4X5IN C#[id number] (Status = ) APPLY 1 DRESSING TOPICALLY EVERY OTHER DAY Rx# [id number] Last Released: 09/07/23 Qty/Days Supply: Rx Expiration Date: 10/01/23 Refills Remainin OUTPT DRESSING,HYDRALOCK SA 6IN X 10IN #[id number] (Status = Active) APPLY 1 DRESSING TOPICALLY TWICE DAILY FOR WOUND CARE Rx# [id number] Last Released: 08/23/23 Qty/Days Supply: Rx Expiration Date: 08/17/24 Refills Remainin Indication: FOR WOUND CARE OUTPT DRESSING,MEPILEX BORDR 8.7X9.8IN #[id number] (Status = ) APPLY 1 DRESSING DIRECTED EVERY OTHER DAY Rx# [id number] Last Released: 08/02/23 Qty/Days Supply: Rx Expiration Date: 08/20/23 Refills Remainin OUTPT DRESSING,MEPILEX BORDR 8.7X9.8IN #[id number] (Status = ) APPLY 1 DRESSING DIRECTED EVERY OTHER DAY Rx# [id number] Last Released: 09/07/23 Qty/Days Supply: Rx Expiration Date: 10/01/23 Refills Remainin OUTPT GAUZE PAD 4IN X 4IN NONSTERILE (Status = ) APPLY GAUZE(S) TOPICALLY EVERY OTHER DAY Rx# [id number] Last Released: 08/02/23 Qty/Days Supply: / Rx Expiration Date: 10/19/23 Refills Remainin OUTPT PAD,ABDOMINAL 5 X 9 STERILE (Status = ) USE 1 PAD TOPICALLY EVERY OTHER DAY Rx# [id number] Last Released: 08/02/23 Qty/Days Supply: Rx Expiration Date: 08/20/23 Refills Remainin OUTPT PAD,ABDOMINAL 5 X 9 STERILE (Status = ) USE 1 PAD TOPICALLY EVERY OTHER DAY Rx# [id number] Last Released: 09/07/23 Qty/Days Supply: Rx Expiration Date: 10/01/23 Refills Remainin OUTPT TAPE,MEDIPORE H SOFT 1IN X 10YD 3M#2861 (Status = ) USE 1 PIECE TOPICALLY EVERY OTHER DAY Rx# [id number] Last Released: 08/02/23 Qty/Days Supply: Rx Expiration Date: 08/20/23 Refills Remainin OUTPT TAPE,MEDIPORE H SOFT 1IN X 10YD 3M#2861 (Status = ) USE 1 PIECE TOPICALLY EVERY OTHER DAY Rx# [id number] Last Released: 09/07/23 Qty/Days Supply: Rx Expiration Date: 10/01/23 Refills Remainin PHARMACY TERMS AND POSSIBLE PATIENT ACTIONS INPT = IN inpatient order IV = IN intravenous medication OUTPT = IN outpatient prescription PHARMACY POSSIBLE PATIENT TERMS EXPLANATION ACTIONS -------- ----- ACTIVE A prescription that can be If you have refills, filled at the local [place] pharmacy. you may request a refill of this prescription from your [place] pharmacy. CLINIC A medication you received during If you have questions a visit to a [place] clinic or about this medication emergency department. contact your VA healthcare team. DISCONTINUED A prescription your provider has Contact your VA stopped. It is no longer healthcare team if you available to be sent to you or need more of this picked up at the [place] pharmacy medication. window. A prescription which is too old Contact your VA to fill. This does not refer to healthcare team if you the expiration date of the need more of this medication in the container. medication. NON-VA A medication that came from If this medication someplace other than a VA information is pharmacy. This may be a incorrect or out of prescription from either the VA date, please tell your or non VA providers that was VA healthcare team. filled outside the VA. Or, it may be an aikr-xyx-gglettv (OTC), herbal, dietary supplements or sample medication. ON HOLD An active prescription that will Contact your VA not be filled until pharmacy pharmacy when you need resolves the issue. more of this medication. PARKED An active prescription that will Contact your VA not be filled until the patient pharmacy when you need requests it. this medication. PENDING This prescription order has been If you have been sent to the pharmacy for review instructed to start and is not ready yet. this medication now, contact your VA pharmacy. SUSPENDED An active prescription that is Contact your [place] not scheduled to be filled yet. pharmacy if you need You should receive it before this medication now. you run out. Declines printed copy of medication list now /flor/ Isaiah Lemus OD CHIEF OF OPTOMETRY Signed: 10/27/2023 16:00 ISAIAH LEMUS IN [facility] [place] [facility] Oct 25, 2023 02:53 PM OPTOMETRY NOTE: LOCAL TITLE: OPTOMETRY NOTE STANDARD TITLE: OPTOMETRY NOTE DATE OF NOTE: OCT 25, 2023@14:53 ENTRY DATE: OCT 25, 2023@14:54:44 AUTHOR: LEANNE FAITH EXP COSIGNER: ISAIAH LEMUS URGENCY: STATUS: COMPLETED Active problems - Computerized Problem List is the source for the followin. Exposure to potentially hazardous substance 2. Moderate protein-calorie malnutrition (weight for age 60-74 percent of stand 3. Pain 4. Acute pulmonary embolism 5. COPD - Chronic Obstructive Pulmonary Disease ([facility] [id number]) 6. Depression ([facility] [id number]) 7. Deep venous thrombosis of upper extremity 8. H/O: rheumatoid arthritis 9. Sjogren syndrome 10. PE - Pulmonary Embolism ([facility] [id number]) Active Outpatient Medications (including Supplies): Active Outpatient Medications Status 1) DEPEND UNDERWEAR,MAXIMUM,MEN LARGE USE 1 BRIEF ACTIVE DIRECTED TWICE DAILY 2) DRESSING,HYDRALOCK SA 6IN X 10IN #11427 APPLY 1 ACTIVE DRESSING TOPICALLY TWICE DAILY FOR WOUND CARE Active Non-VA Medications Status 1) Non-VA ACETAMINOPHEN [...] CAP 600MG BY MOUTH EVERY ACTIVE EVENING AND 1200MG BY MOUTH AT BEDTIME 6) Non-VA HYDROMORPHONE HCL 2MG TAB 2MG BY MOUTH THREE ACTIVE TIMES DAILY NEEDED 7) Non-VA METOPROLOL TARTRATE 25MG TAB 25MG BY MOUTH ACTIVE TWICE DAILY 8) Non-VA NALOXONE HCL 4MG/SPRAY SOLN NASAL SPRAY 1 ACTIVE SPRAY ONE NOSTRIL ONE TIME NEEDED 9) Non-VA RIVAROXABAN 10MG TAB 10MG BY MOUTH ONCE DAILY ACTIVE 10) Non-VA YXKFGKSSSKSO77.5/VILANTEROL 25MCG 30D INH 1 ACTIVE INHALATION BY MOUTH ONCE DAILY 11) Non-VA UPADACITINIB 15MG 24HR SA TAB 15MG BY MOUTH ACTIVE ONCE DAILY 13 Total Medications Allergies: HEPARIN All medications including those prescribed by outside VA's, community providers, and all OTC meds were reviewed and reconciled with patient to the best of their abilities. This 77 year old MALE is seen today for a comprehensive eye exam Chief Complaint: Pt. complains of blurry vision at distance OU, started noticing the 3-4 years ago. Pt. uses [employer] currently. LINUS: over 3-4 years ago, in [place]. OHx: 1. Pseudophakia OU 2. Refractive Error OU (-) Pain: (-) SMITH: (-) Diplopia: (-) Flashes: (+) Floaters: occassionaly (-) Amaurosis Fugax/Tia's: (-) Eye Injury: (+) Eye Surgery: cataract sx, YAG ou (-) TBI Family Ocular History: (-) Glaucoma/ARMD/Blindness Social History: (-) Smoker/Length of Time/PPD: former smoker, quit 5/6 years ago Current Rx with last BCVA:unknown OD: OS: Add: DVA (X)sc ( )cc OD: 20/25+2 OS: 20/25+1 Pupils: PERRL (-)APD EOMs: SAFE OU, (-)Pain/Diplopia CVF (facial, peripheral): FTFC OU Autorefraction: OD: -0.25 -1.00 x070 20/20-1 OS: -0.75 -0.75 X154 20/20 Subjective Refraction: OD: 0.00 -1.50 x070 20/20-1 OS: -0.75 -1.00 X145 20/20 ADD: +2.50 20/20 Binoc Balance: OD: 0.00 -1.50 x070 OS: -0.75 -1.00 X145 Final SRx: OD: 0.00 -1.50 x070 20/20-1 OS: -0.75 -1.00 X145 20/20 ADD: +2.50 20/20 All the above performed by student, reviewed by attending Anterior segment: Performed by student, repeated by attending Lids: clear OU Conj: white and quiet OU Cornea: 1+ SPK OU AC: 4x4 OU, (-)TID OU Iris: flat and clear OU Lens: PCIOL OU Tonometry(Icare): Performed by student, reviewed by attending OD 12, 12 mmHg OS 20, 23 mmHg Time: 3:20pm Cortez: OD: 16 mmHg OS: 23 mmHg Fundus exam: Dilated: xxxx @3:25pm Dilating Drops: 1GTT 1 % Tropicamide OU & 1GTT 2.5% Phenylephrine OU (Pt. ed. on side effects, dilation warning given and verbal consent obtained) Patient advised not to drive if they feel they have any symptoms which could affect their ability to drive safely. Patient advised not to engage in any activities which could put themselves or others at risk if they feel they have any symptoms which could affect their ability to perform those activities safely. Performed by student, repeated by attending Vit: clear OU C/D: 0.50/0.50 OD, 0.60/0.60 OS Disc: Rim tissue is pink and healthy OU (-)drance hemes/notching OU Macula: flat and clear OU PPole: clear A/V: 2/3 Vessels: normal caliber OU Periph: flat and intact (-)holes, tears, detachments 360 OU Assessment/Plan: 1. Low Risk Glaucoma Suspect secondary to assymmetric IOPs - Pt. educated on the risks of loosing peripheral vision if condition is left untreated and the risks of high eye pressures. Pt educated on the importance of collecting more data(IOP, OCT, HVF) in order to confirm a diagnosis and therefore the importance of followup appointments. Treatment with glacouma drops is not initated at this time. Monitor condition. - RTC in 6 months for imaging and IOP check - monitor condition 2. 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 ed on findings - pt. to fill as progressives with transitions - monitor condition 3. Pseudophakia OU - Pt. ed on findings - PCIOL cenetered and clear - monitor condition Return to Clinic 6 months or earlier PRN Patient Education: Glaucoma: Patient was educated regarding glaucoma/glaucoma suspect as well as the natural history of this diagnosis including prognosis. Stress importance of compliance and persistency with glaucoma medication when prescribed, timely follow up as well as the role of ancillary testing. Exclusion criteria for ancillary testing include significantly reduced acuity, mental status changes affecting the patient's ability to attend to the test or other physical limitations that would prohibit the patient's ability to participate in testing. /flor/ LEANNE FAITH OPTOMETRY STUDENT Signed: 10/25/2023 16:34 /flor/ Isaiah Lemus OD CHIEF OF OPTOMETRY Cosigned: 10/27/2023 15:55 LEANNE FAITH [facility]
--- OUTSIDE RECORDS SUMMARY | 2024-06-26 09:22 | XMS_ITS | Encounter Summary ---
Author Name [facility] [place] [facility] [place] Organization [facility] [place] Address [address] [place] [address] Care Team Providers Care Rechecker Name Role Phone LYDIA MG Primary Care Provider VALENTÍN oBrjas Primary Care Provider Unavail able Insurance Providers: [...] Holland's Name Patient's Relationship to Policy [facility] ([facility]) MEDICARE ADVANTAGE MCR ([facility]) Jul 12, 2023 [id number] [phone] [place] [facility] ([facility]) Jul 12, 2023 [id number] [phone] [place] PATIENT AETNA [facility] (WNR) MEDICARE ADVANTAGE MCR ([facility]) Jul 12, 2019 [id number] S [place] [facility] MEDICARE ADVANTAGE MCR ([facility]) Jul 12, 2018 [id number] [phone] [facility] PATIENT AETNA [facility] ([facility]) MEDICARE ADVANTAGE MCR ([facility]) Jul 12, 2018 [id number] [phone] [place] PATIENT EMPIRE BCBS [facility] (WNR) MEDICARE ADVANTAGE MCR ([facility]) Sep 09, 2017 [id number] [place] PATIENT EMPIRE BLUE CROSS [facility] (WNR) MEDICARE ADVANTAGE MCR ([facility]) Jul 12, 2017 [id number] [place] PATIENT Selected Encounter This section includes the information on record at [place] for the Encounter. Date/Time Encounter Type Encounter Description Reason Provider Source Oct 26, 2023 08:19 AM FIT SPECTACLES MULTIFOCAL OPTOMETRY ICD-10-CM Z46.0 Encounter for fit/adjst of spectacles and contact lenses RENATE LEMUS Encounter Template Text not used by [place] Assessments - Encounter Diagnoses This section includes the primary and secondary diagnoses documented for the Encounter. Date/Time Primary/Secondary Diagnosis Diagnosis Name Provider Source Oct 26, 2023 08:19 AM PRIMARY Encounter for fit/adjst of spectacles and contact lenses [facility] Plan of Treatment: Future Appointments (+ 6 months) and Future Tests (+/- 45 days) The Plan of Treatment section includes future care activities for the patient from all [place] treatmentfacilities. This section includes future appointments and future orders which are active, pending or scheduled. Future Appointments This section includes appointments that were scheduled to occur 6 months from the date of the Encounter, up to a maximum of 20 appointments. The data comes from all [place] treatment facilities. Appointment Date/Time Appointment Type Appointme nt Facility Name November 10, 2023 08:00 AM [facility] Jan 24, 2024 11:00 AM [facility] Lab Results: +/- 30 days of the encounter This section includes the Chemistry and Hematology Lab Results on record with [place] for the patient. Radiology Reports and Pathology Reports are provided separately, in subsequent sections. Lab Results This section contains the Chemistry/Hematology Results that were resulted 30 days before or 30 daysafter the date of the Encounter. Date/Time Source Result Type Result - Unit Interpretation Reference Range Comment Oct 15, 2023 11:06 AM [facility] LIVER FUNCTION Specimen Type: SERUM No comment entered. Ordering Provider: PO SAHA Report Released Date/Time: Oct 15, 2023 11:05 AM Reporting Lab: [address] [address] Performing Lab: [address] [address] PROTEIN,TOTAL 7.1 g/dL 6.0-8.3 ALBUMIN 3.8 g/dL 3.5-5.0 ALKALINE PHOSPHATASE 50 U/L 40-150 AST 15 U/L 5-34 ALT 26 U/L BILIRUBIN, TOTAL 0.5 mg/dL 0.2-1.2 Oct 15, 2023 11:06 AM [facility] BASIC METABOLIC PANEL (fasting) Specimen Type: SERUM No comment entered. Ordering Provider: PO SAHA Report Released Date/Time: Oct 15, 2023 11:05 AM Reporting Lab: [address] [address] Performing Lab: [address] [address] UREA NITROGEN 18 mg/dL 7-25 GLUCOSE 95 mg/dL 65-100 SODIUM 141 mmol/L 135-145 POTASSIUM 4.2 mmol/L 3.5-5.0 CHLORIDE 106 mmol/L 100-110 CO2 25 meq/L 20-30 CREATININE, Serum 1.37 mg/dL 0.50-1.40 eGFR(CKD-EPI 2020) 53 mL/min L >60 Oct 15, 2023 11:06 AM [facility] LIPID PANEL FASTING Specimen Type: SERUM No comment entered. Ordering Provider: PO SAHA Report Released Date/Time: Oct 15, 2023 11:05 AM Reporting Lab: [address] [place] [address] Performing Lab: [facility] [address] [facility] [address] CHOLESTEROL 179 mg/dL TRIGLYCERIDE 123 mg/dL 0-150 LDL calculated 111 mg/dL 0-129 CHOL/HDL 4.2 HDL CHOLESTEROL 43 mg/dL 40-60 Oct 15, 2023 11:06 AM [facility] IRON & TIBC PANEL Specimen Type: SERUM No comment entered. Ordering Provider: PO SAHA Report Released Date/Time: Oct 15, 2023 11:05 AM Reporting Lab: [address] [address] Performing Lab: [address] [address] TIBC 338 ug/dL 204-475 IRON 51 ug/dL 40-160 Transferrin Saturation 15.1 L 20.0-50.0 Oct 15, 2023 11:06 AM [facility] CBC AND DIFF (AUTO) Specimen Type: BLOOD No comment entered. Ordering Provider: PO SAHA Report Released Date/Time: Oct 15, 2023 11:05 AM Reporting Lab: [address] [address] Performing Lab: [address] [address] WBC 6.76 10*3/uL 4.50-11.00 RBC 5.57 10*6/uL 4.23-5.66 HGB 14.9 g/dL 12.8-17 HCT 47.5 39.2-50.4 MCV 85.3 fL 82-99 MCHC 31.4 g/dL 30.8-35.1 PLT 243 10*3/uL 140-360 RDW-CV 15.0 12.0-16.0 [place], Abs 0.49 10*3/uL 0.30-1.10 MCH 26.8 pg 26.2-32.6 Neut % 67.8 43.7-75.8 Lymph % 21.9 14.0-42.3 [place] % 7.2 5.1-13.7 Eos % 2.1 0.4-6.8 [...] and tobacco- related health factors from the [place] facility where the Encounter took place. Current Smoking Status This section includes the most current smoking, or tobacco-related health factor, from the [place] facility where the Encounter took place. Date/Time Current Smoking Status Comment Facil ity Jan 22, 2023 01:30 PM VA-TOBACCO FORMER USER [facility] Tobacco Use History This section includes a history of the smoking, or tobacco-related health factors, that were collected on or before the date of the Encounter. The data comes from the [place] facility where the Encounter took place. Date/Time Smoking Status/Tobacco Use Comment F acility Jan 22, 2023 01:30 PM VA-TOBACCO QUIT 5 TO < 15 YRS [facility] Feb 17, 2022 04:37 PM VA-TOBACCO FORMER USER [facility] Feb 17, 2022 04:37 PM [place]-TOBACCO QUIT 1 TO < 5 YRS [facility] Advance Directives: All historical and current Section Date Range: From patient's date of to the date document was created. This section includes ALL of a patient's completed or amended [place] Advance and Rescinded Directives. The entries below indicate that a directive exists for the patient, but an actual copy is not included with this document. The data comes from all [place] facilities. Date Advance Directives Provider Source Oct 26, 2023 ADVANCE DIRECTIVE MARGARITA KRAFT [facility] Encounter Notes: All associated encounter notes This section contains the clinical notes associated to the Encounter. Date/Time Encounter Note(s) Provider Source Oct 26, 2023 08:19 AM OPTOMETRY NOTE: LOCAL TITLE: OPTOMETRY NOTE STANDARD TITLE: OPTOMETRY NOTE DATE OF NOTE: OCT 26, 2023@08:19 ENTRY DATE: OCT 26, 2023@08:19:50 AUTHOR: LIZ WILLS EXP COSIGNER: URGENCY: STATUS: COMPLETED OPTOMETRY NOTE Has ADDENDA The quote provided below is for informational purposes only. Please verify prior to the creation of a purchase order. VALENTÍN JEROME [id number] RX INFORMATION OD 0.00 -1.50 X70 Add:+2.50 Pzm:0.00 Dir: Prz2:0.00 Dir2: OS -0.75 -1.00 X145 Add:+2.50 Pzm:0.00 Dir: Prz2:0.00 Dir2: FITTING INFORMATION FPD: NPD: [place]:R:30 L:30 SEG HT:R:25 L:25 Tint:None Shade:None VA Billable Items FRAME: DANNY REHMAN 58-19-150 Right Lens: POLY VA PROGRESSIVE PHOTOCHROMIC SCHREIBER 1.586 POLY Left Lens: POLY VA PROGRESSIVE PHOTOCHROMIC SCHREIBER 1.586 POLY KLEAR ANTI-REFLECTIVE COATING /flor/ LIZ WILLS GATE KEEPER Signed: 10/26/2023 08:19 Receipt Acknowledged By: 10/26/2023 09:55 /flor/ TANIKA BAILON OPTOMETRY TECH 10/26/2023 ADDENDUM STATUS: COMPLETED PDS Director Of Online Education fit patient with 1 pair(s) of progressive eyeglasses on 10/25/2023. OPT HT entered consult(s) as requested for provider signature. /flor/ TANIKA BAILON OPTOMETRY TECH Signed: 10/26/2023 09:58 LIZ WILLS CNTRL [facility]
--- OUTSIDE RECORDS SUMMARY | 2024-06-26 09:22 | XMS_ITS | Encounter Summary ---
Author Name [facility] [place] Organization [facility] [place] Address [address] [place] [address] Care Team Providers Care Videotape Sales Representative Name Role Phone LYDIA MG Primary Care [...] Holland's Name Patient's Relationship to Policy Holland [facility] MEDICARE [facility] ([facility]) Jul 12, 2023 [id number] [phone] [place] PATIENT AETNA [facility] (WNR) MEDICARE [facility] ([facility]) Jul 12, 2023 [id number] [phone] [place] PATIENT AETNA [facility] (WNR) MEDICARE [facility] ([facility]) Jul 12, 2019 [id number] S [place] PATIENT AETNA [facility] ([facility]) MEDICARE [facility] ([facility]) Jul 12, 2018 [id number] S [phone] [place] PATIENT AETNA [facility] (WNR) MEDICARE ADVANTAGE MCR ([facility]) Jul 12, 2018 [id number] [phone] [place] PATIENT EMPIRE BCBS [facility] (WNR) MEDICARE [facility] (R) Sep 09, 2017 [id number] [phone] [place] PATIENT EMPIRE BLUE CROSS [facility] (WNR) MEDICARE ADVANTAGE [facility] (R) Jul 12, 2017 [id number] [place] PATIENT Selected Encounter This section includes the information on record at [place] for the Encounter. Date/Time Encounter Type Encounter Description Reason Pro vider Source Oct 26, 2023 02:13 PM Outpatient Encounter PRIMARY CARE/MEDICINE IHE Encounter Template Text not used by [place] Plan of Treatment: Future Appointments (+ 6 months) and Future Tests (+/- 45 days) The Plan of Treatment section includes future care activities for the patient from all [place] treatmentfacilities. This section includes future appointments and future orders which are active, pending or scheduled. Future Appointments This section includes appointments that were scheduled to occur 6 months from the date of the Encounter, up to a maximum of 20 appointments. The data comes from all [place] treatment facilities. Appointment Date/Time Appointment Type Appointme nt Facility Name November 10, 2023 08:00 AM AMBULATORY - MEDICINE [facility] Jan 24, 2024 11:00 AM AMBULATORY - NONE [facility] Lab Results: +/- 30 days of the encounter This section includes the Chemistry and Hematology Lab Results on record with [place] for the patient. Radiology Reports and Pathology [...] Reporting Lab: [facility] [address] [facility] [address] Performing Lab: [facility] [address] [facility] [address] UREA NITROGEN 18 mg/dL 7-25 GLUCOSE 95 [...] Reporting Lab: [facility] [address] [facility] [address] Performing Lab: [address] [address] PROTEIN,TOTAL 7.1 g/dL 6.0-8.3 ALBUMIN 3.8 g/dL 3.5-5.0 ALKALINE PHOSPHATASE 50 U/L 40-150 AST 15 U/L 5-34 ALT 26 U/L BILIRUBIN, TOTAL 0.5 mg/dL 0.2-1.2 Oct 15, 2023 11:06 AM [facility] LIPID PANEL FASTING Specimen Type: SERUM No comment entered. Ordering Provider: PO SAHA Report Released Date/Time: Oct 15, 2023 11:05 AM Reporting Lab: [facility] [address] [facility] [address] Performing Lab: [address] [address] CHOLESTEROL 179 mg/dL TRIGLYCERIDE 123 mg/dL 0-150 LDL calculated 111 mg/dL 0-129 CHOL/HDL 4.2 HDL CHOLESTEROL 43 mg/dL 40-60 Oct 15, 2023 11:06 AM [facility] IRON & TIBC PANEL Specimen Type: SERUM No comment entered. Ordering Provider: PO SAHA Report Released Date/Time: Oct 15, 2023 11:05 AM Reporting Lab: [address] [address] Performing Lab: [address] [address] TIBC 338 ug/dL 204-475 IRON 51 ug/dL 40-160 Transferrin Saturation 15.1 L 20.0-50.0 Oct 15, 2023 11:06 AM [facility] CBC AND DIFF (AUTO) Specimen Type: BLOOD No comment entered. Ordering Provider: PO SAHA Report Released Date/Time: Oct 15, 2023 11:05 AM Reporting Lab: [address] [address] Performing Lab: [address] [address] WBC 6.76 10*3/uL 4.50-11.00 RBC 5.57 10*6/uL 4.23-5.66 HGB 14.9 g/dL 12.8-17 HCT 47.5 39.2-50.4 MCV 85.3 fL 82-99 MCHC 31.4 g/dL 30.8-35.1 PLT 243 10*3/uL 140-360 RDW-CV 15.0 12.0-16.0 [place], Abs 0.49 10*3/uL 0.30-1.10 MCH 26.8 pg 26.2-32.6 Neut % 67.8 43.7-75.8 Lymph % 21.9 14.0-42.3 [place] % 7.2 5.1-13.7 Eos % 2.1 0.4-6.8 [...] and tobacco- related health factors from the [place] facility where the Encounter took place. Current Smoking Status This section includes the most current smoking, or tobacco-related health factor, from the [place] facility where the Encounter took place. Date/Time Current Smoking Status Comment Facil ity Jan 22, 2023 01:30 PM [place]-TOBACCO QUIT 5 TO < 15 YRS [facility] Tobacco Use History This section includes a history of the smoking, or tobacco-related health factors, that were collected on or before the date of the Encounter. The data comes from the [place] facility where the Encounter took place. Date/Time Smoking Status/Tobacco Use Comment F acility Jan 22, 2023 01:30 PM [place]-TOBACCO QUIT 5 TO < 15 YRS [place] [facility] [place] [facility] Feb 17, 2022 04:37 PM [place]-TO[place]AC[place] FORMER USER [place] [facility] Feb 17, 2022 04:37 PM [place]-TOBACCO QUIT 1 TO < 5 YRS [facility] Advance Directives: All historical and current Section Date Range: From patient's date of to the date document was created. This section includes ALL of a patient's completed or amended [place] Advance and Rescinded Directives. The entries below indicate that a directive exists for the patient, but an actual copy is not included with this document. The data comes from all [place] facilities. Date Advance Directives Provider Source Oct 26, 2023 ADVANCE DIRECTIVE MARGARITA KRAFT [facility] Encounter Notes: All associated encounter notes This section contains the clinical notes associated to the Encounter. Date/Time Encounter Note(s) Provider Source Oct 26, 2023 02:13 PM ADVANCE DIRECTIVE: LOCAL TITLE: ADVANCE DIRECTIVE STANDARD TITLE: ADVANCE DIRECTIVE DATE OF NOTE: OCT 26, 2023@14:13 ENTRY DATE: OCT 26, 2023@14:14:05 AUTHOR: MARGARITA KRAFT EXP COSIGNER: URGENCY: STATUS: COMPLETED * [ ]Advance Directive executed with . [X]Patient brought in his/her own Advance Directive. Scanned Advance Directive or Advance Directive/AOD Flowsheet is located in [employer]. /flor/ MARGARITA VALE Signed: 10/26/2023 14:14 MARGARITA KRAFT [facility]
--- OUTSIDE RECORDS SUMMARY | 2024-06-26 09:23 | XMS_ITS | Encounter Summary ---
Author Name [facility] [place] Organization [facility] ([place]) Address [address] [place] [address] Care Team Providers Care Brand Leader Name Role Phone LYDIA MG Primary Care [...] Holland's Name Patient's Relationship to Policy Holland [facility] MEDICARE [facility] Jul 12, 2023 [id number] [phone] [place] PATIENT AETNA [facility] (WNR) MEDICARE ADVANTAGE [facility] ([facility] Jul 12, 2023 [id number] [phone] [place] PATIENT AETNA [facility] (WNR) MEDICARE [facility] ([facility] Jul 12, 2019 [id number] S [place] PATIENT AETNA [facility] ([facility] MEDICARE [facility] ([facility] Jul 12, 2018 [id number] S [place] PATIENT AETNA [facility] (WNR) MEDICARE ADVANTAGE [facility] (R) Jul 12, 2018 [id number] [phone] [place] PATIENT EMPIRE BCBS [facility] (WNR) MEDICARE [facility] (WNR) Sep 09, 2017 [id number] [place] PATIENT EMPIRE BLUE CROSS [facility] (WNR) MEDICARE ADVANTAGE [facility] (R) Jul 12, 2017 [id number] [place] PATIENT Selected Encounter This section includes the information on record at [place] for the Encounter. Date/Time Encounter Type Encounter Description Reason Pro vider Source Jan 24, 2024 12:00 AM Outpatient Encounter EVENT (HISTORICAL) IHE Encounter Template Text not used by [place] Plan of Treatment: Future Appointments (+ 6 months) and Future Tests (+/- 45 days) The Plan of Treatment section includes future care activities for the patient from all [place] treatmentfacilities. This section includes future appointments and future orders which are active, pending or scheduled. Future Appointments This section includes appointments that were scheduled to occur 6 months from the date of the Encounter, up to a maximum of 20 appointments. The data comes from all [place] treatment facilities. Appointment Date/Time Appointment Type Appointme nt Facility Name Jun 28, 2024 11:00 AM AMBULATORY - MEDICINE [facility] Social History: Smoking Status (Most current) and Tobacco Use (All prior to encounter date) This section includes the most current, and the historical, smoking and tobacco- related health factors from the [place] facility where the Encounter took place. Current Smoking Status This section includes the most current smoking, or tobacco-related health factor, from the [place] facility where the Encounter took place. Date/Time Current Smoking Status Comment Facil ity Jan 22, 2023 01:30 PM [place]-TOBACCO QUIT 5 TO < 15 YRS [facility] Tobacco Use History This section includes a history of the smoking, or tobacco-related health factors, that were collected on or before the date of the Encounter. The data comes from the [place] facility where the Encounter took place. Date/Time Smoking Status/Tobacco Use Comment F acility Jan 22, 2023 01:30 PM VA-TOBACCO QUIT 5 TO < 15 [facility] Feb 17, 2022 04:37 PM [facility]AC[facility] Feb 17, 2022 04:37 PM VA-TOBACCO QUIT 1 TO < 5 YRS [facility] Advance Directives: All historical and current Section Date Range: From patient's date of to the date document was created. This section includes ALL of a patient's completed or amended [place] Advance and Rescinded Directives. The entries below indicate that a directive exists for the patient, but an actual copy is not included with this document. The data comes from all [place] facilities. Date Advance Directives Provider Source Oct 26, 2023 ADVANCE DIRECTIVE MARGARITA KRAFT [facility] Radiology Reports: +/- 30 days of the encounter Radiology Reports For cases when an order for radiology services may have been completed prior to the date of the Encounter, the report list includes the Radiology Reports that were completed up to 30 days before dateof the Encounter. For cases when an order for radiology services may have been completed after the date of the Encounter, the report list also includes the Radiology Reports that were completed up to30 days after date of the Encounter. The data comes from all [place] treatment facilities. Date/Time Radiology Report Provider Source Jan 24, 2024 10:28 AM LDCT LUNG CANCER SCREENING: VALENTÍN JEROME [id number] M Exm Date: JAN 24, 2024@10:28 Req Phys: VALENTÍN SAHA Loc: ZZCWM/NO/LCS ADMIN (Req'g Loc) Img Loc: NHM/CT Service: Unknown [facility] , (Case 17 COMPLETE) LDCT LUNG CANCER SCREENING (CT Detailed) CPT:94555 Reason for Study: LUNG CANCER SCREENING Clinical History: 100TPY QUIT SMOKING 2015 BASELINE LCS LDCT ON 01/22/2023: LR 1(S): NO SUSPICIOUS PULMONARY NODULES Report Status: Verified Date Reported: JAN 24, 2024 Date Verified: JAN 24, 2024 Sand Mixer E-Sig:/ES/BRUCE CABRAL JR Report: Study: Lung cancer screening CT of the chest. Provided History: Lung cancer screening. Comparison: CT scan the chest from January 22, 2023. Technique: 1 mm lung algorithm and 3 mm soft tissue algorithm axial reconstructions from the lung apices through the lung bases without the administration of intravenous contrast as per standard department protocol for lung cancer screening. Subsequently, sagittal and coronal reformats were generated. MIP images also provided and reviewed. Secondary computer-aided detection with post-processing from [employer] is used. The lack of intravenous contrast inherently limits the evaluation of hilar structures, vascular structures, and abnormal enhancement patterns. Lower than standard dose was utilized limiting sensitivity for fine parenchymal detail. Dose Parameters: CTDI(vol): 2.6 mGy. DLP: 91.0 mGy*cm. Findings: Lungs: Emphysema: Moderate centrilobular and paraseptal emphysematous changes with associated scattered parenchymal scarring is unchanged. Index Nodule: None. Other Nodules: None. Lungs/airway findings: No acute pulmonary process or pleural effusion is identified. There are moderate dependent changes present at the lung bases. Mild to moderate right middle lobe and bibasilar bronchiectatic changes again seen. Otherwise, the tracheobronchial tree is patent and normal. Heart, mediastinum and lymph nodes: The heart size is normal. No pericardial effusion identified. Normal caliber thoracic aorta. No mediastinal or hilar lymphadenopathy by size criteria. No axillary lymphadenopathy by size criteria. Normal caliber pulmonary arteries. Visualized coronary artery and aortic calcifications: Atherosclerotic changes of the aorta and coronary arteries. Upper abdomen: Hepatic steatotic changes. Bones and soft tissues: Normal age-related degenerative changes present. No acute bony abnormality identified. Other findings: None. Impression: No significant interval change or new abnormality, as described above. Lung-RADS Assessment: Category 1, Negative. Recommendation: Continue annual screening with lung cancer screening CT in 12 months. Other Significant Findings and Recommendations: None. Primary Diagnostic Code: No immediate attention required Secondary Diagnostic Codes: LUNGRADS 1: NEGATIVE Primary Interpreting Staff: BRUCE CABRAL JR, Radiologist (Sand Mixer) /BRUCE SCHERER JR [place] [facility] [place] [facility]
--- OUTSIDE RECORDS SUMMARY | 2024-06-26 09:23 | XMS_ITS | Encounter Summary ---
Author Name [facility] [place] Organization [facility] [place] Address [address] [place] [address] Care Team Providers Care Counseling Aide Name Role Phone LYDIA MG Primary Care [...] Holland's Name Patient's Relationship to Policy [facility]) [facility] AD[facility]ANTAGE [facility] ([facility]) Jul 12, 2023 [id number] [phone] [place] PATIENT AETNA [facility] (WNR) MEDICARE [facility] ([facility]) Jul 12, 2023 [id number] [phone] [place] PATIENT AETNA [facility] (WNR) MEDICARE [facility] (R) Jul 12, 2019 [id number] S [place] [facility] ADVANTAGE [facility] ([facility]) Jul 12, 2018 [id number] S [place] PATIENT AETNA [facility] (WNR) MEDICARE ADVANTAGE [facility] ([facility]) Jul 12, 2018 [id number] [phone] [place] PATIENT EMPIRE BCBS [facility] (WNR) MEDICARE ADVANTAGE [facility] ([facility]) Sep 09, 2017 [id number] [place] PATIENT EMPIRE BLUE CROSS [facility] (WNR) MEDICARE ADVANTAGE [facility] ([facility]) Jul 12, 2017 [id number] [place] PATIENT Selected Encounter This section includes the information on record at OR for the Encounter. Date/Time Encounter Type Encounter Description Reason Pro vider Source Feb 01, 2024 03:59 PM Outpatient Encounter ADMIN PAT ACTIVTIES (MASNONCT) IHE Encounter Template Text not used by OR Plan of Treatment: Future Appointments (+ 6 months) and Future Tests (+/- 45 days) The Plan of Treatment section includes future care activities for the patient from all [place] treatmentfacilities. This section includes future appointments and future orders which are active, pending or scheduled. Future Appointments This section includes appointments that were scheduled to occur 6 months from the date of the Encounter, up to a maximum of 20 appointments. The data comes from all [place] treatment facilities. Appointment Date/Time Appointment Type Appointme nt Facility Name Jun 28, 2024 11:00 AM [facility] Social History: Smoking Status (Most current) and Tobacco Use (All prior to encounter date) This section includes the most current, and the historical, smoking and tobacco- related health factors from the VA facility where the Encounter took place. Current Smoking Status This section includes the most current smoking, or tobacco-related health factor, from the VA facility where the Encounter took place. Date/Time Current Smoking Status Comment Facil ity Jan 22, 2023 01:30 PM VA-TOBACCO FORMER USER [facility] Tobacco Use History This section includes a history of the smoking, or tobacco-related health factors, that were collected on or before the date of the Encounter. The data comes from the [place] facility where the Encounter took place. Date/Time Smoking Status/Tobacco Use Comment F acility Jan 22, 2023 01:30 PM VA-TOBACCO QUIT 5 TO < 15 YRS [facility] Feb 17, 2022 04:37 PM VA-TOBACCO FORMER USER [facility] Feb 17, 2022 04:37 PM VA-TOBACCO QUIT 1 TO < 5 YRS [facility] Advance Directives: All historical and current Section Date Range: From patient's date of to the date document was created. This section includes ALL of a patient's completed or amended OR Advance and Rescinded Directives. The entries below indicate that a directive exists for the patient, but an actual copy is not included with this document. The data comes from all OR facilities. Date Advance Directives Provider Source Oct 26, 2023 ADVANCE DIRECTIVE MARGARITA KRAFT [facility] Radiology Reports: +/- 30 days of the [...] the Encounter. The data comes from all OR treatment facilities. Date/Time Radiology Report Provider Source Jan 24, 2024 10:28 AM LDCT LUNG CANCER SCREENING: VALENTÍN JEROME [id number] -1945 M Exm Date: JAN 24, 2024@10:28 Req Phys: VALENTÍN AMADOR Loc: ZZCWM/NO/LCS ADMIN (Req'g Loc) Img Loc: NHM/CT Service: Unknown [facility] , (Case 17 COMPLETE) LDCT LUNG CANCER SCREENING (CT Detailed) CPT:63949 Reason for Study: LUNG CANCER SCREENING Clinical History: 100TPY QUIT SMOKING 2015 BASELINE LCS LDCT ON 01/22/2023: LR 1(S): NO SUSPICIOUS PULMONARY NODULES Report Status: Verified Date Reported: JAN 24, 2024 Date Verified: JAN 24, 2024 Credit Manager E-Sig:/ES/BRUCE CABRAL JR Report: Study: Lung cancer [...] reviewed. Secondary computer-aided detection with post-processing from [employer] is used. The lack of intravenous contrast [...] Primary Interpreting Staff: BRUCE CABRAL JR, Radiologist (Nan) /BRUCE SCHERER JR [facility] Encounter Notes: All associated encounter notes This section contains the clinical notes associated to the Encounter. Date/Time Encounter Note(s) Provider Source Feb 01, 2024 03:59 PM ADMINISTRATIVE NOT E: LOCAL TITLE: CCC: SCHEDULING ADMINISTRATION STANDARD TITLE: ADMINISTRATIVE NOTE DATE OF NOTE: FEB 01, 2024@15:59:14 ENTRY DATE: FEB 01, 2024@15:59:15 AUTHOR: JAMAL RAMIREZ COSIGNER: URGENCY: STATUS: COMPLETED CCC: SCHEDULING ADMINISTRATION Has ADDENDA Patient Demographics Patient Name: VALENTÍN JEROME Patient Primary Phone: [phone] Patient Primary Address: [address] [place] [address] Patient : 1945 Patient Age: 78 Caller/Recipient Relation to Patient: Other If Other Describe Relation to Patient: spouse Caller Name: [place] Administrative Administrative Note Reason: Medication Renewal OR Medications Refill/Renewal Request: Rx # - Medication Name - Dosage - SIG - Number of Refills - Facility - Status [id number] - GAUZE PAD 4IN X 4IN NONSTERILE - GAUZE(S) - APPLY GAUZE(S) TOPICALLY EVERY OTHER DAY - 0 - [place] [address] - [id number] - SODIUM CHLORIDE 0.9% IRRG SOLN - DIRECTED - IRRIGATE DIRECTED TOPICALLY EVERY OTHER DAY - 0 - [facility] 63 - [id number] - DRESSING NON-ADHERE OIL/EMULSION [id number] - 1 DRESSING - APPLY 1 DRESSING TOPICALLY EVERY OTHER DAY - 0 - [place] [address] - [id number] - DRESSING,AQUACEL AG ADVAN 4X5IN C#[id number] - 1 DRESSING - APPLY 1 DRESSING TOPICALLY EVERY OTHER DAY - 0 - [place] [address] - [id number] - DRESSING,MEPILEX BORDR 8.7X9.8IN #[id number] - 1 DRESSING - APPLY 1 DRESSING DIRECTED EVERY OTHER DAY - 0 - [place] [address] - [id number] - TAPE,MEDIPORE H SOFT 1IN X 10YD 3M#2861 - 1 PIECE - USE 1 PIECE TOPICALLY EVERY OTHER DAY - 0 - [facility] - 631 - [id number] - PAD,ABDOMINAL 5 X 9 STERILE - 1 PAD - USE 1 PAD TOPICALLY EVERY OTHER DAY - 0 - [facility] [place] [facility] - 631 - Administrative Note Comments: 's called regarding the above supplies needed [facility] that has been faxed several times to us since November 2023. [place] hasn't received any supplies since October. Vet has been having to pay out of pocket which has been a big expense. The provider is: [facility]/[address] [address] P: [phone] If we don't have the current notes/scripts sent from their office please contact them so that we can have these orders placed JOSE. states there were some updates made to scripts. Please call back at [phone] to confirm when this all set. /flor/ JAMAL RAMIREZ VISN1 CCC AMSA Signed: 02/01/2024 15:59 Receipt Acknowledged By: 02/04/2024 09:20 /flor/ JOSHUA YANEZ RN REGISTERED NURSE 02/03/2024 13:32 /es/ HARPAL VILLALBA LPN 02/01/2024 16:59 /es/ Valentín Amador PA-C STAFF PHYSICIAN MAGNETIC TESTER 02/01/2024 ADDENDUM STATUS: COMPLETED Faxed presciption request to [facility] /flor/ JOSHUA YANEZ RN REGISTERED NURSE Signed: 02/01/2024 16:07 02/01/2024 ADDENDUM STATUS: COMPLETED Spoke with pharmacy, they are filling order now. Will check back with updates and follow-up with [place]. /flor/ JOSHUA YANEZ RN REGISTERED NURSE Signed: 02/01/2024 16:20 JAMAL RAMIREZ [facility]
--- OUTSIDE RECORDS SUMMARY | 2024-06-26 09:23 | XMS_ITS | Encounter Summary ---
Author Name [facility] [place] Organization [place] Address [address] [place] [address] Care Team Providers Care Player Manager Name Role Phone LYDIA MG Primary Care [...] Holland's Name Patient's Relationship to Policy Holland [facility] ADVANTAGE [facility] ([facility]) Jul 12, 2023 [id number] [phone] [place] PATIENT AETNA [facility] (WNR) MEDICARE [facility] ([facility]) Jul 12, 2023 [id number] [phone] [place] PATIENT AETNA [facility] (WNR) MEDICARE [facility] (R) Jul 12, 2019 [id number] S [place] PATIENT [facility]) [facility]IC[facility] ADVANTAGE [facility] ([facility]) Jul 12, 2018 [id number] S [place] PATIENT AETNA [facility] (WNR) MEDICARE ADVANTAGE [facility] (R) Jul 12, 2018 [id number] [phone] [place] PATIENT EMPIRE BCBS [facility] (WNR) MEDICARE ADVANTAGE [facility] (WNR) Sep 09, 2017 [id number] [place] PATIENT EMPIRE BLUE CROSS [facility] (WNR) MEDICARE ADVANTAGE [facility] (R) Jul 12, 2017 [id number] [place] PATIENT Selected Encounter This section includes the information on record at [place] for the Encounter. Date/Time Encounter Type Encounter Description Reason Pro vider Source May 16, 2024 10:47 AM Outpatient Encounter ADMIN PAT ACTIVTIES (MASNONCT) IHE Encounter Template Text not used by AR Plan of Treatment: Future Appointments (+ 6 months) and Future Tests (+/- 45 days) The Plan of Treatment section includes future care activities for the patient from all [place] treatmentfacilities. This section includes future appointments and future orders which are active, pending or scheduled. Future Appointments This section includes appointments that were scheduled to occur 6 months from the date of the Encounter, up to a maximum of 20 appointments. The data comes from all [place] treatment facilities. Appointment Date/Time Appointment Type Appointme nt Facility Name Jun 28, 2024 11:00 AM [facility] Sep 07, 2024 10:30 AM AMBULATORY - [facility] [place] [facility] Oct 20, 2024 01:30 PM AMBULATORY - MEDICINE [facility] Active, Pending, and Scheduled Orders This section includes a listing of several types of active, pending, and scheduled orders, including clinic medications orders, diagnostic test orders, procedure orders and consult orders; where the start date of the order is 45 days before the date of the Encounter or 45 days after the date of theEncounter. The data comes from all [facility] treatment [facility]. Test Date/Time Test Type Test Details Facility Name May 23, 2024 12:58 PM Consult Order COMMUNITY CARE-WOUND Cons Biodies[employer] Process Control Technician's Choice [facility] Social History: Smoking Status (Most current) and Tobacco Use (All prior to encounter date) This section includes the most current, and the historical, smoking and tobacco- related health factors from the AR facility where the Encounter took place. Current Smoking Status This section includes the most current smoking, or tobacco-related health factor, from the [place] facility where the Encounter took place. Date/Time Current Smoking Status Comment Facil ity Jan 22, 2023 01:30 PM AR-TOBACCO QUIT 5 TO < 15 YRS [facility] W[facility] Tobacco Use History This section includes a history of the smoking, or tobacco-related health factors, that were collected on or before the date of the Encounter. The data comes from the [place] facility where the Encounter took place. Date/Time Smoking Status/Tobacco Use Comment F acility Jan 22, 2023 01:30 PM AR-TOBACCO QUIT 5 TO < 15 YRS [facility] Feb 17, 2022 04:37 PM VA-TOBACCO FORMER USER [facility] Feb 17, 2022 04:37 PM [facility]-TOBACCO QUIT 1 TO < 5 YRS [facility] Advance Directives: All historical and current Section Date Range: From patient's date of to the date document was created. This section includes ALL of a patient's completed or amended [place] Advance and Rescinded Directives. The entries below indicate that a directive exists for the patient, but an actual copy is not included with this document. The data comes from all [place] facilities. Date Advance Directives Provider Source Oct 26, 2023 ADVANCE DIRECTIVE MARGARITA KRAFT [facility] TRL [facility] Encounter Notes: All associated encounter notes This section contains the clinical notes associated to the Encounter. Date/Time Encounter Note(s) Provider Source May 16, 2024 10:47 AM ADMINISTRATIVE NOT E: LOCAL TITLE: CCC: SCHEDULING ADMINISTRATION STANDARD TITLE: ADMINISTRATIVE NOTE DATE OF NOTE: MAY 16, 2024@10:47:40 ENTRY DATE: MAY 16, 2024@10:47:40 AUTHOR: SHENA ROGERS COSIGNER: URGENCY: STATUS: COMPLETED CCC: SCHEDULING ADMINISTRATION Has ADDENDA Patient Demographics Patient Name: VALENTÍN JEROME Patient Primary Phone: [phone] Patient Primary Address: [address] [place] [address] Patient : 1945 Patient Age: 78 Caller/Recipient Relation to Patient: Other If Other Describe Relation to Patient: spouse Caller Name: Nury Administrative Administrative Note Reason: [facility] [place] Administrative Note Comments: Nury states patient needs a new referral for his wound care because the current referral is only good until 06/11/24. One of the main things she needs JOSE is calcium alginate silver dressing, they only have 3 left. She needs a call back from [facility] to discuss the correct wound care supplies that she needs. She has been waiting and the wound care center has been trying to contact as well to get the correct supplies but it's still incorrect. Nury can be reached at the number on file. IMPORTANT: This note was created by [facility] Contact [facility] staff. Please do not alert the staff member by adding them as a signer for future communications. Alerts are not monitored by this user. /flor/ SHENA ROGERS Clinical Contact Center AMSA Signed: 05/16/2024 10:47 Receipt Acknowledged By: 05/23/2024 11:27 /flor/ JOSHUA YANEZ RN REGISTERED NURSE 05/24/2024 10:10 /es/ HARPAL VILLALBA LPN 05/23/2024 ADDENDUM STATUS: COMPLETED Spoke to Olga, who stated that [employer] has been sending Rx for wound care to [facility] fill. Confirmed Fax number for pharmacy and contacted [facility] Pharmacist to see if anything has be received from them, awaiting response. Refilled Depends for mail and instructed on how to refill in future. needs Dressing, Calcium Alginate Silver 4x4 Ref # [id number], this is NF. Last ordered here in January: DRESSING,RESTORE,CA ALG AG 4X4.75#[id number] APPLY 1 DRESSING TOPICALLY ONCE DAILY Quantity: 30 Refills: 0 needs to use 1.5 of this dressings daily d/t size of wound and no refills were given. /flor/ JOSHUA M FREEDMAN, RN REGISTERED NURSE Signed: 05/23/2024 10:07 SHENA ROGERS [facility]
--- OUTSIDE RECORDS SUMMARY | 2024-06-26 09:23 | XMS_ITS | Encounter Summary ---
Author Name [facility] [place] Organization [facility] [place] Address [address] [place] [address] Care Team Providers Care Human Relations Manager Name Role Phone LYDIA MG Primary [...] to Policy [facility]ICARE [facility] ([facility]) Jul 12, 2023 [id number] [phone] [place] PATIENT AETNA [facility] (WNR) MEDICARE [facility] ([facility]) Jul 12, 2023 [id number] [phone] [place] PATIENT AETNA [facility] (WNR) MEDICARE [facility] ([facility]) Jul 12, 2019 [id number] [place] PATIENT AETNA [facility] (WN) MEDICARE [facility] ([facility]) Jul 12, 2018 [id number] [place] PATIENT AETNA [facility] (WNR) MEDICARE ADVANTAGE [facility] ([facility]) Jul 12, 2018 [id number] [phone] [place] PATIENT [place] BCBS [facility] (WNR) MEDICARE [facility] ([facility]) Sep 09, 2017 [id number] [place] PATIENT EMPIRE BLUE CROSS [facility] (WNR) MEDICARE [facility] (R) Jul 12, 2017 [id number] [place] PATIENT Selected Encounter This section includes the information on record at [place] for the Encounter. Date/Time Encounter Type Encounter Description Reason Pro vider Source December 10, 2023 02:53 PM Outpatient Encounter COMMUNITY CARE CONSULT IHE Encounter Template Text not used by [...] Date/Time Appointment Type Appointme nt Facility Name Jan 24, 2024 11:00 AM AMBULATORY - NONE [facility] Social History: Smoking Status (Most [...] 15 YRS [facility] Tobacco Use History This section includes a history of the smoking, or tobacco-related health factors, that were collected on or before the date of the Encounter. The data comes from the [place] facility where the Encounter took place. Date/Time Smoking Status/Tobacco Use Comment F acility Jan 22, 2023 01:30 PM VA-TOBACCO QUIT 5 TO < 15 YRS [place] [facility] [place] [facility] Feb 17, 2022 04:37 PM VA-TOBACCO FORMER USER [place] [facility] [place] [facility] Feb 17, 2022 04:37 PM VA-TOBACCO QUIT 1 TO < 5 YRS [facility] Advance Directives: All historical and [...] Oct 26, 2023 ADVANCE DIRECTIVE MARGARITA KRAFT [place] CN TRL [facility] Encounter Notes: All associated encounter notes This section contains the clinical notes associated to the Encounter. Date/Time Encounter Note(s) Provider Source December 10, 2023 02:53 PM NONVA NOTE: LOCAL TITLE: COMMUNITY CARE-CARE COORDINATION PLAN NOTE STANDARD TITLE: NONVA NOTE DATE OF NOTE: DECEMBER 10, 2023@14:53 ENTRY DATE: DECEMBER 10, 2023@14:53:27 AUTHOR: KATHRYN FORD COSIGNER: URGENCY: STATUS: COMPLETED COMMUNITY CARE-CARE COORDINATION PLAN NOTE Has ADDENDA Care Coordination Follow Up CC-Wound Level of Care Coordination Moderate Care Coordination was determined from: Chart Review Services: Basic Care Coordination Services OCC received a phone request from [facility] wound clinic requesting a new referral for continued care, chronic lower extremity wound If PCP is agreeable, please submit a new CC-Wound consult for this care, thank you /flor/ MARJORIE JIMÉNEZ Nurse Practitioner Signed: 12/10/2023 14:55 Receipt Acknowledged By: 12/10/2023 15:01 /flor/ JOSHUA YANEZ RN REGISTERED NURSE 12/10/2023 16:04 /flor/ ANDRES YATES NP NURSE PRACTITIONER for VALENTÍN Berry MARIA A 12/10/2023 ADDENDUM STATUS: COMPLETED Consult entered, pending provider signature. /flor/ JOSHUA YANEZ, RN REGISTERED NURSE Signed: 12/10/2023 15:02 [facility]
--- OUTSIDE RECORDS SUMMARY | 2024-06-26 09:23 | XMS_ITS | Encounter Summary ---
Author Name [facility]) Organization [facility] [place] Address [address] [place] [address] Care Team Providers Care Clinical Implementation Specialist Name Role Phone LYDIA MG Primary [...] Holland's Name Patient's Relationship to Policy Holland [facility] (R) MEDICARE [facility] ([facility]) Jul 12, 2023 [id number] [phone] QUEENIE,WI LLIAM PATIENT AETNA [facility] (WNR) MEDICARE [facility] ([facility]) Jul 12, 2023 [id number] [phone] QUEEN[place],WI LLIAM PATIENT AETNA [facility] (WNR) MEDICARE [facility] ([facility]) Jul 12, 2019 [id number] [phone] [place]ENIE,WI LLIAM PATIENT AETNA [facility] (WN) MEDICARE [facility] ([facility]) Jul 12, 2018 [id number] [phone] [place]IE,W[place] LLIAM PATIENT AETNA [facility] (WNR) MEDICARE ADVANTAGE [facility] (R) Jul 12, 2018 [id number] [phone] [place] PATIENT [place] [employer] [facility] (WNR) MEDICARE ADVANTAGE [facility] (WNR) Sep 09, 2017 [id number] QUEENIE,WI LLIAM PATIENT [employer] [facility] (WNR) MEDICARE [facility] (R) Jul 12, 2017 [id number] [place]ENIE,WI LLIAM PATIENT Selected Encounter This section includes the information on record at [place] for the Encounter. Date/Time Encounter Type Encounter Description Reason Pro vider Source November 24, 2023 12:00 PM Outpatient Encounter COMMUNITY CARE CONSULT IHE Encounter Template Text not used by [place] Plan of Treatment: Future Appointments (+ 6 months) and Future Tests (+/- 45 days) The Plan of Treatment section includes future care activities for the patient from all [place] treatmentfacilities. This section includes future appointments and future orders which are active, pending or scheduled. Future Appointments This section includes appointments that were scheduled to occur 6 months from the date of the Encounter, up to a maximum of 20 appointments. The data comes from all [place] treatment facilities. Appointment Date/Time Appointment Type Appointme nt Facility Name Jan 24, 2024 11:00 AM AMBULATORY - NONE [facility] Social History: Smoking Status (Most current) and Tobacco Use (All prior to encounter date) This section includes the most current, and the historical, smoking and tobacco- related health factors from the [place] facility where the Encounter took place. Current Smoking Status This section includes the most current smoking, or tobacco-related health factor, from the [place] facility where the Encounter took place. Date/Time Current Smoking Status Comment Valeria claire Jan 22, 2023 01:30 PM VA-TOBACCO FORMER USER [facility] Tobacco Use History This section includes a history of the smoking, or tobacco-related health factors, that were collected on or before the date of the Encounter. The data comes from the [place] facility where the Encounter took place. Date/Time Smoking Status/Tobacco Use Comment F acility Jan 22, 2023 01:30 PM VA-TOBACCO QUIT 5 TO < 15 YRS [facility] Feb 17, 2022 04:37 PM VA-TOBACCO FORMER USER [facility] Feb 17, 2022 04:37 PM VA-TOBACCO QUIT 1 TO < 5 YRS [facility] Advance Directives: All historical and current Section Date Range: From patient's date of to the date document was created. This section includes ALL of a patient's completed or amended [place] Advance and Rescinded Directives. The entries below indicate that a directive exists for the patient, but an actual copy is not included with this document. The data comes from all [place] facilities. Date Advance Directives Provider Source Oct 26, 2023 ADVANCE DIRECTIVE MARGARITA KRAFT [facility] Encounter Notes: All associated encounter notes This section contains the clinical notes associated to the Encounter. Date/Time Encounter Note(s) Provider Source November 24, 2023 12:00 PM NONVA CONSULT: LOCAL TITLE: COMMUNITY CARE-CONSULT RESULT NOTE STANDARD TITLE: NONVA CONSULT DATE OF NOTE: NOVEMBER 24, 2023@12:00 ENTRY DATE: DECEMBER 09, 2023@10:49:49 AUTHOR: CHARLIE HAY EXP COSIGNER: URGENCY: STATUS: COMPLETED VistA Imaging - Scanned Document [facility]-WOUND CARE NOTES SCANNED DOCUMENT SIGNATURE NOT REQUIRED Electronically Filed: 12/09/2023 by: CHARLIE HAY LEASE ADMINISTRATOR CHARLIE HAY [facility]
--- OUTSIDE RECORDS SUMMARY | 2024-06-26 09:23 | XMS_ITS | Encounter Summary ---
Author Name [facility] Organization [facility] Address [address] [place] [address] Care Team Providers Care Wheelabrator Operator Name Role Phone LYDIA MG Primary Care [...] Holland's Name Patient's Relationship to Policy Holland [facility] (R) MEDICARE [facility] ([facility]) Jul 12, 2023 [id number] [phone] [place]I LLIAM PATIENT AETNA [facility] (WNR) MEDICARE [facility] ([facility]) Jul 12, 2023 [id number] [phone] [place],WI LLIAM PATIENT AETNA [facility] (WNR) MEDICARE [facility] ([facility]) Jul 12, 2019 [id number] [place]AM PATIENT AETNA [facility] (WN) MEDICARE [facility] ([facility]) Jul 12, 2018 [id number] [phone] [place],WI LLIAM PATIENT AETNA [facility] (WNR) MEDICARE ADVANTAGE [facility] (R) Jul 12, 2018 [id number] [phone] [place] PATIENT [place] [employer] [facility] (WNR) MEDICARE ADVANTAGE [facility] (WNR) Sep 09, 2017 [id number] [phone] [place]IE,WI LLIAM PATIENT [employer] [facility] (WNR) MEDICARE [facility] (R) Jul 12, 2017 [id number] [place]ENIE,WI LLIAM PATIENT Selected Encounter This section includes the information on record at OR for the Encounter. Date/Time Encounter Type Encounter Description Reason Pro vider Source December 08, 2023 12:00 AM Outpatient Encounter COMMUNITY CARE CONSULT IHE Encounter [...] 24, 2024 11:00 AM AMBULATORY - NONE [facility] Social History: Smoking Status (Most current) and Tobacco Use (All prior to encounter date) This section includes the most current, and the historical, smoking and tobacco- related health factors from the [place] facility where the Encounter took place. Current Smoking Status This section includes the most current smoking, or tobacco-related health factor, from the [place] facility where the Encounter took place. Date/Time Current Smoking Status Comment Facil ity Jan 22, 2023 01:30 PM VA-TOBACCO QUIT 5 TO < 15 YRS [facility] Tobacco Use History This section includes a history of the smoking, or tobacco-related health factors, that were collected on or before the date of the Encounter. The data comes from the [place] facility where the Encounter took place. Date/Time Smoking Status/Tobacco Use Comment F acility Jan 22, 2023 01:30 PM VA-TOBACCO QUIT 5 TO < 15 YRS [facility] Feb 17, 2022 04:37 PM VA-TOBACCO FORMER USER [place] [facility] [place] [facility] Feb 17, 2022 04:37 PM VA-TOBACCO QUIT 1 TO < 5 YRS [facility] Advance Directives: All historical and current Section [...] Oct 26, 2023 ADVANCE DIRECTIVE MARGARITA KRAFT [facility] Encounter Notes: All associated encounter notes This section contains the clinical notes associated to the Encounter. Date/Time Encounter Note(s) Provider Source December 08, 2023 12:00 AM NONVA CONSULT: LOCAL TITLE: COMMUNITY CARE-CONSULT RESULT NOTE STANDARD TITLE: NONVA CONSULT DATE OF NOTE: DECEMBER 08, 2023 ENTRY DATE: JAN 03, 2024@11:18:03 AUTHOR: DELFINA JAMA EXP COSIGNER: URGENCY: STATUS: COMPLETED VistA Imaging - Scanned Document SCANNED DOCUMENT SIGNATURE NOT REQUIRED Electronically Filed: 01/03/2024 by: DELFINA SALAMANCA [facility]
--- OUTSIDE RECORDS SUMMARY | 2024-06-26 09:23 | XMS_ITS | Encounter Summary ---
Author Name [facility] [place] [facility] [place] [place] Address [address] [place] [address] Care Team Providers Care Emergency Registrar Name Role Phone LYDIA MG Primary Care [...] Holland's Name Patient's Relationship to Policy Holland [facility] ([facility]NR) MEDICARE ADVANTAGE [facility] ([facility]) Jul 12, 2023 [id number] [phone] [place]EN[place],WI LLIAM PATIENT AETNA [facility] (WNR) MEDICARE [facility] ([facility]) Jul 12, 2023 [id number] [phone] QUEEN[place],WI LLIAM PATIENT AETNA [facility] (WNR) MEDICARE [facility] (R) Jul 12, 2019 [id number] S [place] PATIENT [facility] ([facility] MEDICARE ADVANTAGE [facility]CR ([facility]) Jul 12, 2018 [id number] [phone] [place],WI LLIAM PATIENT AETNA [facility] (WN) MEDICARE ADVANTAGE [facility] ([facility]) Jul 12, 2018 [id number] [phone] [place],WI LLIAM PATIENT [place] BCBS [facility] (WN) MEDICARE ADVANTAGE MCR ([facility]) Sep 09, 2017 [id number] [place],WI LLIAM PATIENT [employer] [facility] (WNR) MEDICARE ADVANTAGE MCR ([facility]) Jul 12, 2017 [id number] [place],WI LLIAM PATIENT Selected Encounter This section includes the information on record at [place] for the Encounter. Date/Time Encounter Type Encounter Description Reason Pro vider Source December 10, 2023 02:03 PM Outpatient Encounter ADMIN PAT ACTIVTIES (MASNONCT) [...] 24, 2024 11:00 AM AMBULATORY - NONE [facility] Social History: Smoking Status (Most [...] Facil ity Jan 22, 2023 01:30 PM AK-TOBACCO QUIT 5 TO < 15 YRS [facility] Tobacco Use History This section includes a history of the smoking, or tobacco-related health factors, that were collected on or before the date of the Encounter. The data comes from the [place] facility where the Encounter took place. Date/Time Smoking Status/Tobacco Use Comment F acility Jan 22, 2023 01:30 PM VA-TOBACCO QUIT 5 TO < 15 YRS [place] [facility] [place] [facility] Feb 17, 2022 04:37 PM VA-TOBACCO FORMER USER [place] [facility] [place] [facility] Feb 17, 2022 04:37 PM VA-TOBACCO QUIT 1 TO < 5 YRS [facility] Advance Directives: All historical and current [...] Oct 26, 2023 ADVANCE DIRECTIVE MARGARITA KRAFT [facility] Encounter Notes: All associated encounter notes This section contains the clinical notes associated to the Encounter. Date/Time Encounter Note(s) Provider Source December 10, 2023 02:03 PM ADMINISTRATIVE NOTE: LOCAL TITLE: CCC: SCHEDULING ADMINISTRATION STANDARD TITLE: ADMINISTRATIVE NOTE DATE OF NOTE: DECEMBER 10, 2023@14:03:21 ENTRY DATE: DECEMBER 10, 2023@14:03:22 AUTHOR: KRYSTLE PRITCHARD EXP COSIGNER: URGENCY: STATUS: COMPLETED Patient Demographics Patient Name: VALENTÍN JEROME Patient Primary Phone: [phone] Patient Primary Address: [address] [place] [address] Patient : 1945 Patient Age: 78 Call Back Number: [phone] Caller/Recipient Relation to Patient: Other If Other Describe Relation to Patient: spouse Caller Name: Kelly Administrative Administrative Note Reason: Other Administrative Note Comments: spouse reported renewal need, marketing writer renewed, DEPEND UNDERWEAR,MAXIMUM,MEN LARGE Last Filled: 12/10/23, and reported Depends worked continue to send them /flor/ KRYSTLE [facility] Signed: 12/10/2023 14:03 Receipt Acknowledged By: 12/10/2023 14:15 /es/ JOSHUA YANEZ, RICKEY REGISTERED NURSE 12/10/2023 19:11 /es/ ANDRES YATES, JAMIE NURSE PRACTITIONER for KRYSTLE [facility] JORDAN
--- OUTSIDE RECORDS SUMMARY | 2024-06-26 09:23 | XMS_ITS | Encounter Summary ---
Author Name [facility] [place] Organization [facility] [place] Address [address] [place] [address] Care Team Providers Care Assistant Auditor Name Role Phone LYDIA MG Primary Care [...] Holland's Name Patient's Relationship to Policy Holland AETNA [facility] (WNR) MEDICARE ADVANTAGE [facility] (R) Jul 12, 2023 [id number] [phone] [place],WI LLIAM PATIENT AETNA [facility] (WNR) MEDICARE ADVANTAGE [facility] ([facility]) Jul 12, 2023 [id number] [phone] QUEENIE,WI LLIAM PATIENT AETNA [facility] (WNR) MEDICARE [facility] (R) Jul 12, 2019 [id number] S [place],WI LLIAM PATIENT AETNA [facility] (WNR) MEDICARE ADVANTAGE [facility] (R) Jul 12, 2018 [id number] S [place],WI L[place]AM PATIENT AETNA [facility] (WNR) MEDICARE ADVANTAGE M[facility] ([facility]) Jul 12, 2018 [id number] [phone] [place] PATIENT [place] [employer] [facility] (WNR) MEDICARE ADVANTAGE [facility] ([facility]) Sep 09, 2017 [id number] [phone] [place],WI L[place]AM PATIENT [employer] [facility] (WNR) MEDICARE ADVANTAGE [facility] ([facility]) Jul 12, 2017 [id number] [place],WI LLIAM PATIENT Selected Encounter This section includes the information on record at [place] for the Encounter. Date/Time Encounter Type Encounter Description Reason Provider Source Jan 24, 2024 01:55 PM QNHP OL DIG ASSMT&MGMT 5-10 PULMONARY/CHEST ICD-10-CM Z12.2 Encntr screen for malignant neoplasm of respiratory organs NEFTALI TEJEDA [facility] Encounter Template Text not used by [place] Assessments - Encounter Diagnoses This section includes the primary and secondary diagnoses documented for the Encounter. Date/Time Primary/Secondary Diagnosis Diagnosis Name Provider Source Jan 24, 2024 02:07 PM PRIMARY Encntr screen for malignant neoplasm of respiratory organs NEFTALI TEJEDA [facility] Plan of Treatment: Future Appointments (+ 6 months) and Future Tests (+/- 45 days) The Plan of Treatment section includes future care activities for the patient from all [place] treatmentfacilities. This section includes future appointments and future orders which are active, pending or scheduled. Future Appointments This section includes appointments that were scheduled to occur 6 months from the date of the Encounter, up to a maximum of 20 appointments. The data comes from all [place] treatment facilities. Appointment Date/Time Appointment Type Appointme nt Facility Name Jun 28, 2024 11:00 AM AMBULATORY - MEDICINE [facility] Social History: Smoking Status (Most current) and Tobacco Use (All prior to encounter date) This section includes the most current, and the historical, smoking and tobacco- related health factors from the [place] facility where the Encounter took place. Current Smoking Status This section includes the most current smoking, or tobacco-related health factor, from the [place] facility where the Encounter took place. Date/Time Current Smoking Status Comment Facil ity Jan 22, 2023 01:30 PM AL-TOBACCO QUIT 5 TO < 15 YRS [facility] Tobacco Use History This section includes a history of the smoking, or tobacco-related health factors, that were collected on or before the date of the Encounter. The data comes from the [place] facility where the Encounter took place. Date/Time Smoking Status/Tobacco Use Comment F acility Jan 22, 2023 01:30 PM AL-TOBACCO QUIT 5 TO < 15 YRS [facility] Feb 17, 2022 04:37 PM AL-TOBACCO FORMER USER AL [facility]TR [facility] Feb 17, 2022 04:37 PM AL-TOBACCO QUIT 1 TO < 5 YRS [facility] Advance Directives: All historical and current Section Date Range: From patient's date of to the date document was created. This section includes ALL of a patient's completed or amended [place] Advance and Rescinded Directives. The entries below indicate that a directive exists for the patient, but an actual copy is not included with this document. The data comes from all [place] facilities. Date Advance Directives Provider Source Oct 26, 2023 ADVANCE DIRECTIVE [facility]ITA [facility] Radiology Reports: +/- 30 days of [...] the Encounter. The data comes from all [place] treatment facilities. Date/Time Radiology Report Provider Source Jan 24, 2024 10:28 AM LDCT LUNG CANCER SCREENING: VALENTÍN GIPSON [id number] -1945 M Exm Date: JAN 24, 2024@10:28 Req Phys: VALENTÍN AMADOR Pat Loc: ZZCWM/NO/LCS ADMIN (Req'g Loc) Img Loc: NHM/CT Service: Unknown [place] [facility] [place] [facility] , (Case 17 COMPLETE) LDCT LUNG CANCER SCREENING (CT Detailed) CPT:84975 Reason for Study: LUNG CANCER SCREENING Clinical History: 100TPY QUIT SMOKING 2015 BASELINE LCS LDCT ON 01/22/2023: LR 1(S): NO SUSPICIOUS PULMONARY NODULES Report Status: Verified Date Reported: JAN 24, 2024 Date Verified: JAN 24, [address] Stenographer E-Sig:/ES/BRUCE CABRAL JR Report: Study: Lung cancer [...] reviewed. Secondary computer-aided detection with post-processing from [employer] is used. The lack of intravenous contrast [...] Primary Interpreting Staff: BRUCE CABRAL JR, Radiologist ([address] Stenographer) /BRUCE SCHERER JR [facility] Encounter Notes: All associated encounter notes This section contains the clinical notes associated to the Encounter. Date/Time Encounter Note(s) Provider Source Jan 24, 2024 02:08 PM PREVENTIVE MEDICINE RISK ASSESSMENT SCREENING NOTE: LOCAL TITLE: LUNG CANCER SCREENING DOCUMENTATION STANDARD TITLE: PREVENTIVE MEDICINE RISK ASSESSMENT SCREENING NO DATE OF NOTE: JAN 24, 2024@14:08 ENTRY DATE: JAN 24, 2024@14:08:10 AUTHOR: MIRELA TEJEDA COSIGNER: URGENCY: STATUS: COMPLETED Jan Dear Mr. Gipson: Your recent lung cancer screening CT scan showed NO abnormal findings that are concerning for lung cancer. This result is reassuring news. If there are additional findings, we will alert your primary care team. A copy if the results from your Low-Dose CT scan done on 01/24/2024 are enclosed with this letter. Your next lung cancer screening CT scan is due in 12 months, JANUARY 2025. You may reach our radiology team M-F between the hours of 8am and 4pm at [phone] for scheduling purposes. If you are experiencing an upper respiratory illness like a cold or the flu, please get your scan 4 weeks after your symptoms have gone away. Lung cancer screening can detect lung cancer, but it does not prevent it. Rarely, a CT scan can miss a small lung cancer. Contact your primary care provider if you develop new symptoms like worsening shortness of breath, change in a cough, or coughing up blood. If you still smoke cigarettes, we can help you quit. We understand that quitting cigarette smoking is difficult, but it is the best way to improve your health. When you want help, let your primary care provider know. You can also call 6-648-CQJE-VET ( ) or visit [employer]smokefree.gov. Please contact us with questions or concerns about lung cancer screening. Sincerely, Mirela MOTA, RN, OCN Lung Cancer Screening Nurse Enclosures: brochure entitled, My Lung Cancer Screening Did Not Show Lung Cancer /es/ MIRELA Susanna MOTA,RN,OCN LUNG CANCER SCREENING NURSE NAVIGATOR Signed: 01/24/2024 14:09 MIRELA TEJEDA [place] [facility] [place] [facility] Jan 24, 2024 01:55 PM PREVENTIVE MEDICINE RISK ASSESSMENT SCREENING NOTE: LOCAL TITLE: LUNG CANCER SCREENING DOCUMENTATION STANDARD TITLE: PREVENTIVE MEDICINE RISK ASSESSMENT SCREENING NO DATE OF NOTE: JAN 24, 2024@13:55 ENTRY DATE: JAN 24, 2024@13:55:09 AUTHOR: MIRELA TEJEDA EXP COSIGNER: URGENCY: STATUS: COMPLETED NO LUNG NODULES or TRACKING OF NODULE NOT INDICATED per guidelines (e.g., clearly benign/some small nodules). Date of image: Date: January 24, 2024 LDCT Scan Results: Most recent LDCT Scan negative for lung nodules Comment: Lung Rads 1 Index Nodule: None. Other Nodules: None. INCIDENTAL FINDINGS WILL BE MANAGED DEEMED CLINICALLY APPROPRIATE BY PCP The following incidental findings were noted: 1.) Emphysema: Moderate centrilobular and paraseptal emphysematous changes with associated scattered parenchymal scarring is unchanged. Mild to moderate right middle lobe and bibasilar bronchiectatic changes again seen. 2.) Visualized coronary artery and aortic calcifications: Atherosclerotic changes of the aorta and coronary arteries. 3.) Upper abdomen: Hepatic steatotic changes. I am notifying the Primary Care Provider for information, and for follow-up of incidental findings, if indicated. Comment: Valentín MAHMOOD and PACT team via second signer in CPRS Plan: Continue routine annual lung cancer screening. Patient Notification of results: Results letter sent to patient. Comment: Results letter and educational materials mailed to address on file. Patient contacted by telephone. Comment: Call placed to the [place] with 's Jude, Communication authorization verified and on file. Results of LC SLDCT reviewed, specifically that no pulmonary nodules or masses were seen per radiology report. Education provided. Importance of and rationale for continued surveillance with LDCT at an annual interval discussed. 's verbalized good understanding and agreement with this plan. 's expressed appreciation for the time spent and education provided. /es/ MIRELA KINGN,RN,OCN LUNG CANCER SCREENING NURSE NAVIGATOR Signed: 01/24/2024 14:08 Receipt Acknowledged By: 01/24/2024 14:44 /es/ JOSHUA YANEZ, RN REGISTERED NURSE 01/25/2024 09:37 /es/ HARPAL VILLALBA LPN 01/25/2024 07:30 /es/ Valentín Amador PA-C STAFF PHYSICIAN LANGUAGE PATHOLOGIST MIRELA [facility]EDA [facility]
--- OUTSIDE RECORDS SUMMARY | 2024-06-26 09:24 | XMS_ITS | Encounter Summary ---
Author Name [facility] [place] Address [address] [place] [id number] Care Team Providers Care Circular Knitter Name Role Phone LYDIA MG Primary Care [...] Name Patient's Relationship to Policy Holland AETNA [facility] (WNR) MEDICARE ADVANTAGE [facility] (R) Jul 12, 2023 [id number] [phone] [place] PATIENT AETNA [facility] (WNR) MEDICARE ADVANTAGE [facility] ([facility]) Jul 12, 2023 [id number] [phone] [place] PATIENT AETNA [facility] (WNR) MEDICARE [facility] (R) Jul 12, 2019 [id number] [place] PATIENT AETNA [facility] (WNR) MEDICARE ADVANTAGE [facility] (R) Jul 12, 2018 [id number] [phone] [place] PATIENT AETNA [facility] (WNR) MEDICARE ADVANTAGE [facility] ([facility]) Jul 12, 2018 [id number] [phone] [place] PATIENT [employer] [facility] (WNR) MEDICARE ADVANTAGE [facility] ([facility]) Sep 09, 2017 [id number] [place] PATIENT [employer] [facility] (WNR) MEDICARE ADVANTAGE [facility] ([facility]) Jul 12, 2017 [id number] [place] PATIENT Selected Encounter This section includes the information on record at [place] for the Encounter. Date/Time Encounter Type Encounter Description Reason Provider Source May 26, 2024 12:29 PM QNHP OL DIG ASSMT&MGMT 5-10 CLINICAL PHARMACY ICD-10-CM R52 Pain, unspecified GDULA,LAURA A IHE Encounter Template Text not used by [place] Assessments - Encounter Diagnoses This section includes the primary and secondary diagnoses documented for the Encounter. Date/Time Primary/Secondary Diagnosis Diagnosis Name Provider Source May 26, 2024 12:32 PM PRIMARY Pain, unspecified GDULA,LAURA A [facility] [place] [facility] Plan of Treatment: Future Appointments (+ 6 months) and Future Tests (+/- 45 days) The Plan of Treatment section includes future care activities for the patient from all [place] treatmentfacilities. This section includes future appointments and future orders which are active, pending or scheduled. Future Appointments This section includes appointments that were scheduled to occur 6 months from the date of the Encounter, up to a maximum of 20 appointments. The data comes from all [place] treatment facilities. Appointment Date/Time Appointment Type Appointme nt Facility Name Jun 28, 2024 11:00 AM AMBULATORY - MEDICINE [facility] [place] [facility] Sep 07, 2024 10:30 AM AMBULATORY - MEDICINE [place] [facility] Oct 20, 2024 01:30 PM AMBULATORY - MEDICINE [facility] [place]TR [place] [facility] Active, Pending, and Scheduled Orders This section includes a listing of several types of active, pending, and scheduled orders, including clinic medications orders, diagnostic test orders, procedure orders and consult orders; where the start date of the order is 45 days before the date of the Encounter or 45 days after the date of theEncounter. The data comes from all [place] treatment facilities. Test Date/Time Test Type Test Details Facility Name May 23, 2024 12:58 PM Consult Order COMMUNITY CARE-WOUND Cons Enterprise Manager's Choice [facility] Social History: Smoking Status (Most current) and Tobacco Use (All prior to encounter date) This section includes the most current, and the historical, smoking and tobacco- related health factors from the [place] facility where the Encounter took place. Current Smoking Status This section includes the most current smoking, or tobacco-related health factor, from the [place] facility where the Encounter took place. Date/Time Current Smoking Status Comment Facil ity Jan 22, 2023 01:30 PM [place]-TOBACCO QUIT 5 TO < 15 YRS [facility] Tobacco Use History This section includes a history of the smoking, or tobacco-related health factors, that were collected on or before the date of the Encounter. The data comes from the [place] facility where the Encounter took place. Date/Time Smoking Status/Tobacco Use Comment F acility Jan 22, 2023 01:30 PM [place]-TOBACCO QUIT 5 TO < 15 YRS [facility] Feb 17, 2022 04:37 PM [place]-TOBACCO FORMER USER [facility] Feb 17, 2022 04:37 PM [place]-TOBACCO QUIT 1 TO < 5 YRS [facility] Advance Directives: All historical and current Section Date Range: From patient's date of to the date document was created. This section includes ALL of a patient's completed or amended [place] Advance and Rescinded Directives. The entries below indicate that a directive exists for the patient, but an actual copy is not included with this document. The data comes from all [place] facilities. Date Advance Directives Provider Source Oct 26, 2023 ADVANCE DIRECTIVE MARGARITA KRAFT [facility] Encounter Notes: All associated encounter notes This section contains the clinical notes associated to the Encounter. Date/Time Encounter Note(s) Provider Source May 26, 2024 12:29 PM MEDICATION MGT CON SULT: LOCAL TITLE: CONSULT REPORT/NON FORMULARY PADR STANDARD TITLE: MEDICATION MGT CONSULT DATE OF NOTE: MAY 26, 2024@12:29 ENTRY DATE: MAY 26, 2024@12:29:39 AUTHOR: LAURA LEDESMA COSIGNER: URGENCY: STATUS: COMPLETED The medical record has been reviewed with regard to this restricted drug request. This prior authorization drug request originated with a [facility] provider. Medication requested: DRESS,KERRAMAX CARE 4IN X 9IN Medication indication: dressing care Medical history relevant to this request: DRESS,KERRAMAX CARE 4IN X 9IN Previous dressing pt was using is no longer available. This product is sufficient for use. The request is approved - No formulary-preferred alternative Time spent: 5 mins /flor/ LAURA LEDESMA PHARMD,[facility] PRACTITIONER Signed: 05/26/2024 12:33 Receipt Acknowledged By: 05/26/2024 13:01 /flor/ VALENTÍN CONTE Interventional Radiology Rn LAURA LEDESMA [facility]
--- OUTSIDE RECORDS SUMMARY | 2024-06-26 09:24 | XMS_ITS | Encounter Summary ---
Author Name [facility] [place] Organization [facility] Address [address] [place] [address] Care Team Providers Care Construction Person Name Role Phone LYDIA MG Primary Care [...] Holland's Name Patient's Relationship to Policy Holland [facility] (R) MEDICARE [facility] ([facility]) Jul 12, 2023 [id number] [phone] [place] PATIENT AETNA [facility] (WNR) MEDICARE ADVANTAGE [facility] ([facility]) Jul 12, 2023 [id number] [phone] [place] PATIENT AETNA [facility] (WNR) MEDICARE [facility] ([facility]) Jul 12, 2019 [id number] [place] PATIENT AETNA [facility] ([facility]) MEDICARE [facility] ([facility]) Jul 12, 2018 [id number] [place]LIAM PATIENT AETNA [facility] (WNR) MEDICARE ADVANTAGE [facility] (WNR) Jul 12, 2018 [id number] [phone] [place] PATIENT [employer] [facility] (WNR) MEDICARE [facility] (WNR) Sep 09, 2017 [id number] [place] LLIAM PATIENT [employer] [facility] (WNR) MEDICARE ADVANTAGE [facility] (WNR) Jul 12, 2017 [id number] [place] PATIENT Selected Encounter This section includes the information on record at [place] for the Encounter. Date/Time Encounter Type Encounter Description Reason Pro vider Source May 11, 2024 12:00 AM Outpatient Encounter EVENT (HISTORICAL) IHE Encounter Template Text not used by [place] Plan of Treatment: Future Appointments (+ 6 months) and Future Tests (+/- 45 days) The Plan of Treatment section includes future care activities for the [facility] [place] [facility] This section includes future appointments and future orders which are active, pending or scheduled. Future Appointments This section includes appointments that were scheduled to occur 6 months from the date of the Encounter, up to a maximum of 20 appointments. The data comes from all [place] treatment facilities. Appointment Date/Time Appointment Type Appointme nt Facility Name Jun 28, 2024 11:00 AM [facility] Sep 07, 2024 10:30 AM [facility]ULAT[facility] [place] [facility] Oct 20, 2024 01:30 PM [facility]BULATORY [facility] Active, Pending, and Scheduled Orders This section includes a listing of several types of active, pending, and scheduled orders, including clinic medications orders, diagnostic test orders, procedure orders and consult orders; where the start date of the order is 45 days before the date of the Encounter or 45 days after the date of theEncounter. The data comes from all [place] treatment facilities. Test Date/Time Test Type Test Details Facility Name May 23, 2024 12:58 PM Consult Order COMMUNITY CARE-WOUND Cons Lithography Contact Worker's Choice [facility] Immunizations: All administered on the encounter date This section contains immunizations associated to the Encounter. Immunization Series Date Issued Reaction Comments INFLUENZA, UNSPECIFIED FORMULATION May 11, 2024 Social History: Smoking Status (Most current) and Tobacco Use (All prior to encounter date) This section includes the most current, and the historical, smoking and tobacco- related health factors from the [place] facility where the Encounter took place. Current Smoking Status This section includes the most current smoking, or tobacco-related health factor, from the [place] facility where the Encounter took place. Date/Time Current Smoking Status Comment Facil ity Jan 22, 2023 01:30 PM [place]-TOBACCO QUIT 5 TO < 15 YRS [facility] Tobacco Use History This section includes a history of the smoking, or tobacco-related health factors, that were collected on or before the date of the Encounter. The data comes from the [place] facility where the Encounter took place. Date/Time Smoking Status/Tobacco Use Comment F acility Jan 22, 2023 01:30 PM [place]-TOBACCO QUIT 5 TO < 15 YRS [facility] Feb 17, 2022 04:37 PM [place]-TOBACCO FORMER USER [facility] Feb 17, 2022 04:37 PM [place]-TOBACCO QUIT 1 TO < 5 YRS [facility] Advance Directives: All historical and current Section Date Range: From patient's date of to the date document was created. This section includes ALL of a patient's completed or amended [place] Advance and Rescinded Directives. The entries below indicate that a directive exists for the patient, but an actual copy is not included with this document. The data comes from all [place] facilities. Date Advance Directives Provider Source Oct 26, 2023 ADVANCE DIRECTIVE MARGARITA KRAFT [facility]
--- OUTSIDE RECORDS SUMMARY | 2024-06-26 09:24 | XMS_ITS | Encounter Summary ---
Author Name [facility] Organization 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 Name Role Phone LYDIA MG Primary [...] Holland's Name Patient's Relationship to Policy Holland [facility] MEDICARE [facility] ([facility]) Jul 12, 2023 [id number] [phone] [place] PATIENT AETNA [facility] (WNR) MEDICARE [facility] ([facility]) Jul 12, 2023 [id number] [phone] [place]AM PATIENT AETNA [facility] (WNR) MEDICARE [facility] ([facility]) Jul 12, 2019 [id number] [phone] [place] PATIENT AETNA [facility] ([facility]) MEDICARE [facility] ([facility]) Jul 12, 2018 [id number] [place] PATIENT AETNA [facility] (WNR) MEDICARE ADVANTAGE [facility] (R) Jul 12, 2018 [id number] [phone] [place] PATIENT [employer]IRE [employer] [facility] (WNR) MEDICARE [facility] (WNR) Sep 09, 2017 [id number] [place] PATIENT [employer] [facility] (WNR) MEDICARE ADVANTAGE [facility] (WNR) Jul 12, 2017 [id number] [place] PATIENT Selected Encounter This section includes the information on record at [place] for the Encounter. Date/Time Encounter Type Encounter Description Reason Pro vider Source Jun 01, 2024 10:57 AM Outpatient Encounter PRIMARY CARE/MEDICINE IHE Encounter Template Text not used by [place] Plan of Treatment: Future Appointments (+ 6 months) and Future Tests (+/- 45 days) The Plan of Treatment section includes future care activities for the patient [facility] [place] [facility]. This section includes future appointments and future [...] 28, 2024 11:00 AM AMBULATORY - MEDICINE [facility] Sep 07, 2024 10:30 AM AMBULATORY - MEDIC[facility] [place] [facility] Oct 20, 2024 01:30 PM AMBULATORY - MEDICINE [facility] Active, Pending, and Scheduled Orders This section includes a listing of several types of active, pending, and scheduled orders, including clinic medications orders, diagnostic test orders, procedure orders and consult orders; where the start date of the order is 45 days before the date of the Encounter or 45 days after the date of theEncounter. The data comes from all [place] treatment facilities. Test Date/Time Test Type Test Details Facility Name May 23, 2024 12:58 PM Consult Order COMMUNITY CARE-WOUND Cons Sap Bw Bi Developer's Choice [facility] Social History: Smoking Status (Most current) [...] Date/Time Current Smoking Status Comment Valeria ity Jun 01, 2024 10:57 AM VA-TOBACCO USE FOR AKANKSHA CIGARETTES [facility] Tobacco Use History This section includes a history of the smoking, or tobacco-related health factors, that were collected on or before the date of the Encounter. The data comes from the [place] facility where the Encounter took place. Date/Time Smoking Status/Tobacco Use Comment Jamal actania Jun 01, 2024 10:57 AM VA-TOBACCO USE FOR AKANKSHA CIGARETTES [place] [facility]TR [facility] Jan 22, 2023 01:30 PM [facility] Jan 22, 2023 01:30 PM VA-TOBACCO QUIT 5 TO < 15 YRS [place] CNTR [facility] Feb 17, 2022 04:37 PM [facility] Feb 17, 2022 04:37 PM [place]-TOBACCO QUIT 1 TO < 5 YRS [facility] Advance Directives: All historical and current Section [...] Oct 26, 2023 ADVANCE DIRECTIVE [facility]FT [facility] Encounter Notes: All associated encounter notes This section contains the clinical notes associated to the Encounter. Date/Time Encounter Note(s) Provider Source Jun 01, 2024 10:57 AM PREVENTIVE MEDICINE NURSING NOTE: LOCAL TITLE: CLINICAL REMINDERS/NURSING STANDARD TITLE: PREVENTIVE MEDICINE NURSING NOTE DATE OF NOTE: JUN 01, 2024@10:57 ENTRY DATE: JUN 01, 2024@10:57:24 AUTHOR: HARPAL VILLALBAIGNER: URGENCY: STATUS: COMPLETED Homelessness/Food Insecurity Screen: In the past 2 months, have you been living in stable housing that you own, rent, or stay in as part of a household? Yes - Living in stable housing. Are you worried or concerned that in the next 2 months you may NOT have stable housing that you own, rent, or stay in as part of a household? No - Not worried about housing near future The reports the following: Within the past 12 months, you worried whether your food would run out before you got money to buy more. Never true Within the past 12 months, the food you bought just didn't last and you didn't have money to get more. Never true Depression Screening: Perform PHQ-2 A PHQ-2 screen was performed. The score was 0 which is a negative screen for depression. Over the past two weeks, how often have you been bothered by the following problems? 1. Little interest or pleasure in doing things Not at all 2. Feeling down, depressed, or hopeless Not at all Falls & Incontinence Screen: Falls Screen: During the past 12 months, did the patient report any falls? 4. No falls within the past year. Incontinence Screen: During the past 12 months, has the patient has any characteristics of incontinence (ability, voiding, leakage, etc.)? No incontinence. Tobacco Use Screening: The patient is a former cigarette smoker. The patient has never used other types of tobacco. Influenza Immunization: The patient has received the seasonal influenza vaccine for the current season at another location. Documented: INFLUENZA, UNSPECIFIED FORMULATION Historical Date Administered: May 11, 2024 Series: Booster Outside Location: Outside Healthcare Provider Information Source: FROM OTHER PROVIDER Alcohol Use Screen (AUDIT-C): Alcohol Screen: SCREEN FOR ALCOHOL (AUDIT-C) An alcohol screening test (AUDIT-C) was negative (score=1). 1. How often did you have a drink containing alcohol in the past year? Consider a drink to be a 12 ounce can or bottle of regular beer, 8 ounces of malt liquor, a 5 ounce glass of table wine, or a 1.5 ounce shot of liquor (like scotch, gin, or vodka). Monthly or less 2. How many drinks containing alcohol did you have on a typical day when you were drinking in the past year? Zero drinks 3. How often did you have six or more drinks on one occasion in the past year? Never COVID-19 Immunization: Refused Moderna Monovalent COVID-19 vaccine Immunization: COVID-19 (MODERNA), MRNA, LNP-S, PF, 50 MCG/0.5 ML (AGES 12+ YEARS) Refusal Reason: PATIENT DECISION Patient refuses all immunization(s) in the COVID-19 group Date Documented: 06/01/24 11:00 Refused Pfizer Monovalent COVID-19 vaccine Immunization: COVID-19 (PFIZER), MRNA, LNP-S, PF, TAMIKO-SUCROSE, 30 MCG/0.3 ML (AGES 12+ YEARS) Refusal Reason: PATIENT DECISION Patient refuses all immunization(s) in the COVID-19 group Date Documented: 06/01/24 11:00 Refused Novavax COVID-19 vaccine Immunization: COVID-19 (NOVAVAX), SUBUNIT, RS-NANOPARTICLE, ADJUVANTED, PF, 5 MCG/0.5 ML (AGES 12+ YEARS) Refusal Reason: PATIENT DECISION Patient refuses all immunization(s) in the COVID-19 group Date Documented: 06/01/24 11:00 /flor/ HARPAL VILLALBA LPN Signed: 06/01/2024 11:00 HARPAL VILLALBA [facility]
[2024-06-26 09:33] VITALS: BP 140/91; PULSE 81; O2SAT 96; BMI 29.0
== END 2024-06-26 09:59 | disposition home or self-care (01) ==
PROVIDERS: PCP Internal Medicine; Visit Provider Nurse Practitioner Family
DX: G89.29 Other chronic pain (principal); G62.9 Polyneuropathy, unspecified; M79.605 Pain in left leg; Z79.891 Long term (current) use of opiate analgesic; S81.802A Unspecified open wound, left lower leg, initial encounter; L88 Pyoderma gangrenosum
CPT/HCPCS: 99213; G2211

== ENCOUNTER → 2024-06-26 09:19 | Outpatient (BNVA) | payer MEDICARE, SELFPAY | PROVIDERS: PCP Internal Medicine; Visit Provider Nurse Practitioner Family | DX: J44.9 Chronic obstructive pulmonary disease, unspecified (principal); I12.9 Hypertensive chronic kidney disease with stage 1 through stage 4 chronic kidney disease, or unspecified chronic kidney disease; N18.9 Chronic kidney disease, unspecified; R05.9 Cough, unspecified; G47.34 Idiopathic sleep related nonobstructive alveolar hypoventilation; M35.00 Sjogren syndrome, unspecified; S81.802A Unspecified open wound, left lower leg, initial encounter; G89.29 Other chronic pain; G62.9 Polyneuropathy, unspecified; L88 Pyoderma gangrenosum; F11.90 Opioid use, unspecified, uncomplicated; X58.XXXA Exposure to other specified factors, initial encounter; Y93.9 Activity, unspecified; Y92.9 Unspecified place or not applicable; Y99.9 Unspecified external cause status; Z51.81 Encounter for therapeutic drug level monitoring; Z87.891 Personal history of nicotine dependence; Z79.899 Other long term (current) drug therapy | CPT/HCPCS: 99212 ==

== ENCOUNTER 2024-06-26 10:44 | Outpatient (AMB) | payer MEDICARE, SELFPAY ==
--- OUTSIDE RECORDS SUMMARY | 2024-06-26 10:51 | XMS_ITS | Continuity of Care Document ---
Author Name [facility] Organization [facility] Care Team Providers Care Pay Clerk Name Role Phone [facility] Unavailable Unavailable Problems Combined list of problems [...] COPD - Chronic Obstructive Pulmonary Disease (SCT [id number]) Active Condition [facility] Deep venous thrombosis of upper extremity Active Condition Feb 18, 2022 Entered By: MESFIN SAHA Comment: Left [facility] Depression (SCT [id number]) Active Condition [facility] Exposure to potentially hazardous substance Active Condition Oct 07, 2023 Entered By: COL BHARATHI ADAME Comment: [facility] Screening Snomed Code connected 01/22/23 [facility] H/O: rheumatoid arthritis Active Condition [facility] Hypertension [facility] Moderate protein-calorie malnutrition (weight for age 60-74 percent of standard) Active Condition [facility] PE - Pulmonary Embolism (SCT [id number]) Active Condition [facility] Pyoderma gangrenosum Active Condition [facility] Rhe[facility]oid arthritis Active Condition [facility] Sjogren syndrome Active Condition [facility] Venous ulcer Active Condition [facility] Diagnosis: ICD-10-CM R52 Pain, unspecified Active Diagnosis [facility] Diagnosis: ICD-10-CM Z12.2 Encntr screen for malignant neoplasm of respiratory organs Active Diagnosis [facility] [place] [facility] Diagnosis: ICD-10-CM Z46.0 Encounter for fit/adjst of spectacles and contact lenses Active [facility] Diagnosis: ICD-10-CM H40.013 Open angle with borderline findings, low risk, bilateral Active Diagnosis [facility] Diagnosis: ICD-10-CM I10 Essential (primary) hypertension [facility] Diagnosis: ICD-10-CM J44.9 Chronic obstructive pulmonary disease, unspecified Active Diagnosis [facility] [place] [facility] Diagnosis: ICD-10-CM F43.10 Post-traumatic stress disorder, unspecified Active Diagnosis [facility] [place] [facility] Diagnosis: ICD-10-CM S91.009A Unspecified open wound, unspecified ankle, initial encounter Active Diagnosis [facility] Diagnosis: ICD-10-CM Z13.9 Encounter for screening, unspecified Active Diagnosis [facility] Diagnosis: ICD-10-CM 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 Diagnosis [facility] [place] [facility] Diagnosis: ICD-10-CM Z04.89 Encounter for examination and observation for oth reasons Active Diagnosis [facility] Diagnosis: ICD-10-CM M35.00 Sjogren syndrome, unspecified Active Diagnosis [facility] [place] [facility] Diagnosis: ICD-10-CM R26.89 Other abnormalities of gait and mobility Active Diagnosis [facility] [place] [facility] Diagnosis: ICD-10-CM E44.0 Moderate protein-calorie malnutrition Active Diagnosis [facility] Medications Combined list of outpatient medications from Department of Defense and Veterans Affairs facilities.Medications provided include 1) outpatient medications from the last 15 months, and 2) patient-reported medications. Medication Details Route Status Patient Instructions Prescription Expires Prescription Number Last Dispense Date Ordering Provider Order Date Order Qty Source ACETAMINOPH EN 500MG TAB TAKE TWO TABLETS BY MOUTH PRN ORAL ACTIVE VALENTÍN SAHA 2022 [facility] ALBUTEROL 90MCG/ACTUA T (CFC-F) INHL,ORAL,8 .5GM DOSE COUNTER INHALE 2 PUFFS BY MOUTH EVERY 6 HOURS NEEDED RESPIR ATORY (INHAL ATION) ACTIVE VALENTÍN SAHA 2022 [facility] CALCIUM CARBONATE TAB TAKE ACTIVE [facility] [place] CHOLECALCIF MELISSA (VIT D3) TAB TAKE EVERY DAY ACTIVE [facility] [place] DULOXETINE HCL 20MG CAP,EC TAKE 1 CAPSULE BY MOUTH AT BEDTIME ORAL ACTIVE VALENTÍN SAHA 2022 [facility] ETANERCEPT 50MG INJ,SOLN INJECT UNDER THE SKIN SUBCUT ANEOUS ACTIVE [facility] [place] FAMOTIDINE TAB TAKE ACTIVE [facility] [place] FLUTICASONE PROPIONATE 50MCG/SPRAY SOLN,NASAL, 16GM INSTILL 2 SPRAYS INTO EACH NOSTRIL ONCE DAILY NASAL ACTIVE VALENTÍN SAHA 2022 [facility] [place] [facility] GABAPENTIN 300MG CAP TAKE 2 CAPSULES BY MOUTH EVERY EVENING AND TAKE 4 CAPSULES BY MOUTH AT BEDTIME ORAL ACTIVE VALENTÍN SAHA 2022 [facility] HYDROCHLORO THIAZIDE TAB TAKE EVERY DAY ACTIVE [facility] [place] HYDROMORPHO NE HCL 2MG TAB TAKE ONE TABLET BY MOUTH THREE TIMES DAILY NEEDED ORAL ACTIVE VALENTÍN SAHA 2022 [facility] IBUPROFEN TAB TAKE PRN ACTIVE [facility] [place] METOPROLOL TARTRATE 25MG TAB TAKE ONE TABLET BY MOUTH TWICE DAILY ORAL ACTIVE VALENTÍN SAHA 2022 [facility] MULTIVITAMI N & MINERALS TAB TAKE EVERY DAY ACTIVE [facility] [place] NALOXONE HCL 4MG/SPRAY SOLN,SPRAY, NASAL [...] DAILY INTRAV ENOUS DISCONT INUED (EDIT) 04/28/2024 [id number] JEAN LINDQUISTI 2023 30 [facility] SODIUM CHLORIDE 0.9% (PF) INJ,SYRINGE ,10ML INJECT 1 SYRINGE IV PUSH DIRECTED BY PROVIDER INTRAV ENOUS DISCONT INUED (EDIT) 02/18/2024 [id number] JEAN LINDQUISTI 2023 30 [facility] SODIUM CHLORIDE 0.9% (PF) INJ,SYRINGE ,10ML INJECT 1 SYRINGE DIRECTED BY PROVIDER ONCE DAILY NOT APPLIC ABLE 04/30/2024 [id number] 4 JEAN LINDQUISTI 2023 30 [facility] SODIUM CHLORIDE 0.9% (PF) INJ,SYRINGE ,10ML APPLY 1 SYRINGE TOPICALL Y DIRECTED BY PROVIDER TOPICA L 03/02/2024 [id number] 4 JEAN LINDQUISTI 2023 30 [facility] SODIUM CHLORIDE 0.9% SOLN,IRRG IRRIGATE UDP TOPICALL Y EVERY OTHER DAY TOPICA L DISCONT INUED (EDIT) 10/01/2023 [id number] 4 JEAN LINDQUISTI 2023 1000 [facility] SODIUM CHLORIDE 0.9% SOLN,IRRG IRRIGATE DIRECTED TOPICALL Y EVERY OTHER DAY TOPICA L 10/03/2023 [id number] 4 JEAN LINDQUISTI 2023 1000 [facility] SODIUM CHLORIDE 0.9% SOLN,IRRG IRRIGATE DIRECTED TOPICALL Y EVERY OTHER DAY TOPICA L 08/20/2023 [id number] 4 MELISSA NDEONDAVID 2023 1000 [facility] UMECLIDINIU M 62.5MCG/YARELY ANTEROL 25MCG/ACTUA T INH,ORAL,30 D INHALE 1 INHALATI ON BY MOUTH ONCE DAILY RESPIR ATORY (INHAL ATION) ACTIVE VALENTÍN SAHA 2022 [facility] UPADACITINI B 15MG 24HR TAB,SA TAKE ONE TABLET BY MOUTH ONCE DAILY ORAL ACTIVE VALENTÍN SAHA 2022 [facility] [place] [facility] Allergies, Adverse Reactions, Alerts Combined list of allergies from Department of Defense and Veterans Affairs facilities. It does not include entries that were removed or entered in error. Substance Category Reaction Severity Reaction type Status Date Reported Comments Source HEPARIN Propensity to adverse reactions to drug (finding) Cardiac arrest SEVERE active 3 [facility] [place] [facility] Immunizations Combined list of available immunizations from the Department of Defense and Veterans Affairs facilities. Immunization Series Date Given Administered By Site Reaction Lot Number CVX Code Drug Manager Inventory Status Comments Source INFLUENZA, UNSPECIFIED FORMULATION 2023 88 complet ed [facility] [place] [facility] PNEUMOCOCCAL CONJUGATE PCV20, POLYSACCHARID E [id number] CONJUGATE, ADJUVANT, PF 2023 ROXANNA VILLALBA E LEFT DELTO ID [id number] 216 complet ed [facility] TDAP 2023 ROXANNA VILLALBA LEFT DELTO ID [id number] 115 complet ed [facility] [place] [facility] [facility] INFLUENZA, UNSPECIFIED FORMULATION 2022 88 complet ed [facility] [place] [facility] COVID-19 (MODERNA), MRNA, LNP-S, BIVALENT, PF, 50 MCG/0.5 ML OR 25MCG/0.25 ML DOSE 1 2021 229 complet ed [facility] [place] INFLUENZA VACCINE, QUADRIVALENT, ADJUVANTED 2021 205 complet ed [facility] [place] [facility] [facility] COVID-19 (MODERNA), MRNA, LNP-S, PF, 100 MCG/0.5ML DOSE OR 50 MCG/0.25ML DOSE 3 2020 207 complet ed [facility] [place] [facility] INFLUENZA, UNSPECIFIED FORMULATION 2020 88 complet ed [facility] [place] [facility] COVID-19 (MODERNA), MRNA, LNP-S, PF, 100 MCG/0.5ML DOSE OR 50 MCG/0.25ML DOSE 2 2020 207 complet ed [facility] COVID-19 (MODERNA), MRNA, LNP-S, PF, 100 MCG/0.5ML DOSE OR 50 MCG/0.25ML DOSE 1 2020 207 complet ed [facility] [place] [facility] INFLUENZA, TRIVALENT, ADJUVANTED 2018 NONE 168 complet ed [facility] [place] PNEUMOCOCCAL CONJUGATE PCV 13 2017 133 complet ed [facility] PNEUMOCOCCAL POLYSACCHARID E [id number] 2015 33 complet ed [facility] Results Combined list of recent chemistry, hematology [...] Oct 15, 2023 11:05 AM Reporting Lab: [address] [address] Performing Lab: [address] [address] [facility] BASIC METABOLI C PANEL (fasting ) GLUCOSE [MASS/VOLU ME] IN SERUM OR PLASMA 95 mg/dL 65 - 100 10/14 Specimen Type: SERUM No comment entered. Ordering Provider: Madelaine SAHA Report Released Date/Time: Oct 15, 2023 11:05 AM Reporting Lab: [facility] [place] [facility] [address] [facility] [facility] [address] Performing Lab: [facility] [address] [facility] [address] [facility] BASIC METABOLI C PANEL (fasting ) SODIUM [MOLES/VOL UME] IN SERUM OR PLASMA 141 mmol/L 135 - 145 10/14 Specimen Type: SERUM No comment entered. Ordering Provider: Madelaine SAHA Report Released Date/Time: Oct 15, 2023 11:05 AM Reporting Lab: [facility] [address] [address] Performing Lab: [facility] [address] [address] [facility] [place] [facility] BASIC METABOLI C PANEL (fasting ) POTASSIUM [MOLES/VOL UME] IN SERUM OR PLASMA 4.2 mmol/L 3.5 - 5.0 10/14 Specimen Type: SERUM No comment entered. Ordering Provider: Madelaine SAHA Report Released Date/Time: Oct 15, 2023 11:05 AM Reporting Lab: [facility] [place] [facility] [address] [facility] [address] Performing Lab: [facility] [place] [facility] [address] [facility] [address] [facility] [place] [facility] BASIC METABOLI C PANEL (fasting ) CHLORIDE [MOLES/VOL UME] IN SERUM OR PLASMA 106 mmol/L 100 - 110 10/14 Specimen Type: SERUM No comment entered. Ordering Provider: Madelaine SAHA Report Released Date/Time: Oct 15, 2023 11:05 AM Reporting Lab: [facility] [place] [address] [address] Performing Lab: [facility] [place] [facility] [address] [facility] [address] [facility] BASIC METABOLI C PANEL (fasting ) CARBON DIOXIDE, TOTAL [MOLES/VOL UME] IN SERUM OR PLASMA 25 meq/L 20 - 30 10/14 Specimen Type: SERUM No comment entered. Ordering Provider: Madelaine SAHA Report Released Date/Time: Oct 15, 2023 11:05 AM Reporting Lab: [facility] [address] [address] Performing Lab: [facility] [address] [address] [facility] BASIC METABOLI C PANEL (fasting ) CREATININE [MASS/VOLU ME] IN SERUM OR PLASMA 1.37 mg/dL 0.50 - 1.40 10/14 Specimen Type: SERUM No comment entered. Ordering Provider: Madelaine SAHA Report Released Date/Time: Oct 15, 2023 11:05 AM Reporting Lab: [facility] [address] [address] Performing Lab: [facility] [address] [address] [facility] BASIC METABOLI C PANEL (fasting ) GLOMERULAR FILTRATION RATE/1.73 SQ M.PREDICTE D [VOLUME RATE/AREA] IN SERUM, PLASMA OR BLOOD BY CREATININE -BASED FORMULA (CKD-EPI 2020) 53 mL/min 60 10/14 L Specimen Type: SERUM No comment entered. Ordering Provider: Madelaine SAHA Report Released Date/Time: Oct 15, 2023 11:05 AM Reporting Lab: [facility] [address] [address] Performing Lab: [facility] [address] [address] [facility] CBC AND DIFF (AUTO) LEUKOCYTES [#/VOLUME] IN BLOOD BY AUTOMATED COUNT 6.76 10*3/uL 4.50 - 11.00 10/14 Specimen Type: BLOOD No comment entered. Ordering Provider: Madelaine SAHA Report Released Date/Time: Oct 15, 2023 11:05 AM Reporting Lab: [facility] [place] [facility] [address] [facility] [facility] [address] Performing Lab: [facility] [place] [facility] [address] [facility] [address] [facility] [place] [facility] CBC AND DIFF (AUTO) ERYTHROCYT ES [#/VOLUME] IN BLOOD BY AUTOMATED COUNT 5.57 10*6/uL 4.23 - 5.66 10/14 Specimen Type: BLOOD No comment entered. Ordering Provider: Madelaine SAHA Report Released Date/Time: Oct 15, 2023 11:05 AM Reporting Lab: [facility] [place] [address] [address] Performing Lab: [facility] [place] [facility] [address] [facility] [address] [facility] [place] [facility] CBC AND DIFF (AUTO) HEMOGLOBIN [MASS/VOLU ME] IN BLOOD 14.9 g/dL 12.8 - 17 10/14 Specimen Type: BLOOD No comment entered. Ordering Provider: Madelaine SAHA Report Released Date/Time: Oct 15, 2023 11:05 AM Reporting Lab: [facility] [place] [address] [address] Performing Lab: [facility] [place] [facility] [address] [facility] [address] [facility] [place] [facility] CBC AND DIFF (AUTO) HEMATOCRIT [VOLUME FRACTION] OF BLOOD BY AUTOMATED COUNT 47.5 39.2 - 50.4 10/14 Specimen Type: BLOOD No comment entered. Ordering Provider: Madelaine SAHA Report Released Date/Time: Oct 15, 2023 11:05 AM Reporting Lab: [facility] [place] [address] [address] Performing Lab: [facility] [place] [address] [address] [facility] CBC AND DIFF (AUTO) MCV [ENTITIC VOLUME] BY AUTOMATED COUNT 85.3 fL 82 - 99 10/14 Specimen Type: BLOOD No comment entered. Ordering Provider: Madelaine SAHA Report Released Date/Time: Oct 15, 2023 11:05 AM Reporting Lab: [facility] [address] [facility] [facility] [address] Performing Lab: [facility] [address] [facility] [address] [facility] [place] CBC AND DIFF (AUTO) MCHC [MASS/VOLU ME] BY AUTOMATED COUNT 31.4 g/dL 30.8 - 35.1 10/14 Specimen Type: BLOOD No comment entered. Ordering Provider: Madelaine SAHA Report Released Date/Time: Oct 15, 2023 11:05 AM Reporting Lab: [facility] [place] [facility] [address] [facility] [address] Performing Lab: [facility] [place] [facility] [address] [facility] [address] [facility] [place] [facility] CBC AND DIFF (AUTO) PLATELETS [#/VOLUME] IN BLOOD BY AUTOMATED COUNT 243 10*3/uL 140 - 360 10/14 Specimen Type: BLOOD No comment entered. Ordering Provider: Madelaine SAHA Report Released Date/Time: Oct 15, 2023 11:05 AM Reporting Lab: [facility] [address] [facility] [facility] [address] Performing Lab: [facility] [place] [facility] [address] [facility] [address] [facility] [place] CBC AND DIFF (AUTO) ERYTHROCYT E DISTRIBUTI ON WIDTH [RATIO] BY AUTOMATED COUNT 15.0 12.0 - 16.0 10/14 Specimen Type: BLOOD No comment entered. Ordering Provider: Madelaine SAHA Report Released Date/Time: Oct 15, 2023 11:05 AM Reporting Lab: [facility] [place] [facility] [address] [facility] [address] Performing Lab: [facility] [place] [facility] [address] [facility] [address] [facility] [place] [facility] CBC AND DIFF (AUTO) MONOCYTES [#/VOLUME] IN BLOOD BY AUTOMATED COUNT 0.49 10*3/uL 0.30 - 1.10 10/14 Specimen Type: BLOOD No comment entered. Ordering Provider: Madelaine SAHA Report Released Date/Time: Oct 15, 2023 11:05 AM Reporting Lab: [facility] [place] [facility] [address] [facility] [address] Performing Lab: [facility] [place] [address] [address] [facility] [place] [facility] CBC AND DIFF (AUTO) MCH [ENTITIC MASS] BY AUTOMATED COUNT 26.8 pg 26.2 - 32.6 10/14 Specimen Type: BLOOD No comment entered. Ordering Provider: Madleaine SAHA Report Released Date/Time: Oct 15, 2023 11:05 AM Reporting Lab: [facility] [place] [address] [address] Performing Lab: [facility] [place] [address] [address] [facility] [place] [facility] CBC AND DIFF (AUTO) NEUTROPHIL S/100 LEUKOCYTES IN BLOOD BY AUTOMATED COUNT 67.8 43.7 - 75.8 10/14 Specimen Type: BLOOD No comment entered. Ordering Provider: Madelaine SAHA Report Released Date/Time: Oct 15, 2023 11:05 AM Reporting Lab: [facility] [place] [facility] [address] [facility] [address] Performing Lab: [facility] [place] [address] [address] [facility] [place] [facility] CBC AND DIFF (AUTO) LYMPHOCYTE S/100 LEUKOCYTES IN BLOOD BY AUTOMATED COUNT 21.9 14.0 - 42.3 10/14 Specimen Type: BLOOD No comment entered. Ordering Provider: Madelaine SAHA Report Released Date/Time: Oct 15, 2023 11:05 AM Reporting Lab: [facility] [place] [facility] [address] [facility] [address] Performing Lab: [facility] [place] [facility] [address] [facility] [address] [facility] [place] [facility] CBC AND DIFF (AUTO) MONOCYTES/ 100 LEUKOCYTES IN BLOOD BY AUTOMATED COUNT 7.2 5.1 - 13.7 10/14 Specimen Type: BLOOD No comment entered. Ordering Provider: Madelaine SAHA Report Released Date/Time: Oct 15, 2023 11:05 AM Reporting Lab: [facility] [place] [facility] [address] [facility] [facility] [address] Performing Lab: [facility] [place] [facility] [address] [facility] [address] [facility] [place] CBC AND DIFF (AUTO) EOSINOPHIL S/100 LEUKOCYTES IN BLOOD BY AUTOMATED COUNT 2.1 0.4 - 6.8 10/14 Specimen Type: BLOOD No comment entered. Ordering Provider: Madelaine SAHA Report Released Date/Time: Oct 15, 2023 11:05 AM Reporting Lab: [facility] [place] [facility] [address] [facility] [address] Performing Lab: [facility] [place] [facility] [address] [facility] [address] [facility] [place] [facility] CBC AND DIFF (AUTO) BASOPHILS/ 100 LEUKOCYTES IN BLOOD BY AUTOMATED COUNT 0.6 0.1 - 2.0 10/14 Specimen Type: BLOOD No comment entered. Ordering Provider: Madelaine SAHA Report Released Date/Time: Oct 15, 2023 11:05 AM Reporting Lab: [facility] [place] [facility] [address] [facility] [address] Performing Lab: [facility] [place] [facility] [address] [facility] [address] [facility] [place] CBC AND DIFF (AUTO) NEUTROPHIL S [#/VOLUME] IN BLOOD BY AUTOMATED COUNT 4.58 10*3/uL 2.20 - 7.60 10/14 Specimen Type: BLOOD No comment entered. Ordering Provider: Madelaine SAHA Report Released Date/Time: Oct 15, 2023 11:05 AM Reporting Lab: [facility] [place] [address] [address] Performing Lab: [facility] [place] [address] [address] [facility] [place] [facility] CBC AND DIFF (AUTO) LYMPHOCYTE S [#/VOLUME] IN BLOOD BY AUTOMATED COUNT 1.48 10*3/uL 1.00 - 3.20 10/14 Specimen Type: BLOOD No comment entered. Ordering Provider: Madelaine SAHA Report Released Date/Time: Oct 15, 2023 11:05 AM Reporting Lab: [facility] [place] [address] [address] Performing Lab: [facility] [place] [address] [phone] [place], [place] [address] [facility] CBC AND DIFF (AUTO) EOSINOPHIL S [#/VOLUME] IN BLOOD BY AUTOMATED COUNT 0.14 10*3/uL 0.03 - 0.44 10/14 Specimen Type: BLOOD No comment entered. Ordering Provider: Madelaine SAHA Report Released Date/Time: Oct 15, 2023 11:05 AM Reporting Lab: [facility] [place] [address] [address] Performing Lab: [facility] [place] [address] [address] [facility] [place] [facility] CBC AND DIFF (AUTO) BASOPHILS [#/VOLUME] IN BLOOD BY AUTOMATED COUNT 0.04 10*3/uL 0.01 - 0.13 10/14 Specimen Type: BLOOD No comment entered. Ordering Provider: Madelaine SAHA Report Released Date/Time: Oct 15, 2023 11:05 AM Reporting Lab: [facility] [place] [facility] [address] [facility] [address] Performing Lab: [facility] [place] [facility] [address] [facility] [address] [facility] [place] [facility] CBC AND DIFF (AUTO) IMMATURE GRANULOCYT ES/100 LEUKOCYTES IN BLOOD BY AUTOMATED COUNT 0.4 0.0 - 0.7 10/14 Specimen Type: BLOOD No comment entered. Ordering Provider: Madelaine SHAA Report Released Date/Time: Oct 15, 2023 11:05 AM Reporting Lab: [facility] [place] [facility] [address] [facility] [address] Performing Lab: [facility] [place] [facility] [address] [facility] [address] [facility] [place] [facility] CBC AND DIFF (AUTO) IMMATURE GRANULOCYT ES [#/VOLUME] IN BLOOD 0.03 10*3/uL 0.00 - 0.06 10/14 Specimen Type: BLOOD No comment entered. Ordering Provider: Madelaine SAHA Report Released Date/Time: Oct 15, 2023 11:05 AM Reporting Lab: [facility] [place] [facility] [address] [facility] [address] Performing Lab: [facility] [place] [facility] [address] [facility] [address] [facility] [place] [facility] IRON & TIBC PANEL IRON BINDING CAPACITY [MASS/VOLU ME] IN SERUM OR PLASMA 338 ug/dL 204 - 475 10/14 Specimen Type: SERUM No comment entered. Ordering Provider: Madelaine SAHA Report Released Date/Time: Oct 15, 2023 11:05 AM Reporting Lab: [facility] [place] [facility] [address] [facility] [address] Performing Lab: [facility] [place] [facility] [address] [facility] [address] [facility] [place] [facility] IRON & TIBC PANEL IRON [MASS/VOLU ME] IN SERUM OR PLASMA 51 ug/dL 40 - 160 10/14 Specimen Type: SERUM No comment entered. Ordering Provider: Madelaine SAHA Report Released Date/Time: Oct 15, 2023 11:05 AM Reporting Lab: [facility] [place] [facility] [address] [facility] [address] Performing Lab: [facility] [place] [facility] [address] [facility] [address] [facility] [place] [facility] IRON & TIBC PANEL IRON/IRON BINDING CAPACITY.T OTAL [MASS RATIO] IN SERUM OR PLASMA 15.1 20.0 - 50.0 10/14 L Specimen Type: SERUM No comment entered. Ordering Provider: Madelaine SAHA Report Released Date/Time: Oct 15, 2023 11:05 AM Reporting Lab: [facility] [place] [address] [address] Performing Lab: [facility] [place] [address] [address] [facility] [place] [facility] LIPID PANEL FASTING CHOLESTERO L [MASS/VOLU ME] IN SERUM OR PLASMA 179 mg/dL 10/14 Specimen Type: SERUM No comment entered. Ordering Provider: Madelaine SAHA Report Released Date/Time: Oct 15, 2023 11:05 AM Reporting Lab: [facility] [place] [address] [address] Performing Lab: [facility] [place] [facility] [address] [facility] [address] [facility] [place] [facility] LIPID PANEL FASTING TRIGLYCERI DE [MASS/VOLU ME] IN SERUM OR PLASMA 123 mg/dL 0 - 150 10/14 Specimen Type: SERUM No comment entered. Ordering Provider: Madelaine SAHA Report Released Date/Time: Oct 15, 2023 11:05 AM Reporting Lab: [facility] [place] [facility] [address] [address] Performing Lab: [facility] [place] [address] [address] [facility] [place] [facility] LIPID PANEL FASTING CHOLESTERO L IN LDL [MASS/VOLU ME] IN SERUM OR PLASMA BY CALCTHOMPSON N 111 mg/dL 0 - 129 10/14 Specimen Type: SERUM No comment entered. Ordering Provider: Madelaine SAHA Report Released Date/Time: Oct 15, 2023 11:05 AM Reporting Lab: [facility] [place] [facility] [address] [facility] [address] Performing Lab: [facility] [place] [facility] [address] [facility] [address] [facility] [place] [facility] LIPID PANEL FASTING CHOLESTERO L.TOTAL/CH OLESTEROL IN HDL [MASS RATIO] IN SERUM OR PLASMA 4.2 10/14 Specimen Type: SERUM No comment entered. Ordering Provider: Madelaine SAHA Report Released Date/Time: Oct 15, 2023 11:05 AM Reporting Lab: [facility] [place] [address] [address] Performing Lab: [facility] [place] [address] [address] [facility] [place] [facility] LIPID PANEL FASTING CHOLESTERO L IN HDL [MASS/VOLU ME] IN SERUM OR PLASMA 43 mg/dL 40 - 60 10/14 Specimen Type: SERUM No comment entered. Ordering Provider: Madelaine SAHA Report Released Date/Time: Oct 15, 2023 11:05 AM Reporting Lab: [facility] [place] [facility] [address] [facility] [address] Performing Lab: [facility] [place] [address] [address] [facility] [place] [facility] LIVER FUNCTION PROTEIN [MASS/VOLU ME] IN SERUM OR PLASMA 7.1 g/dL 6.0 - 8.3 10/14 Specimen Type: SERUM No comment entered. Ordering Provider: Madelaine SAHA Report Released Date/Time: Oct 15, 2023 11:05 AM Reporting Lab: [facility] [place] [facility] [address] [facility] [address] Performing Lab: [facility] [place] [facility] [address] [facility] [address] [facility] [place] [facility] LIVER FUNCTION ALBUMIN [MASS/VOLU ME] IN SERUM OR PLASMA 3.8 g/dL 3.5 - 5.0 10/14 Specimen Type: SERUM No comment entered. Ordering Provider: Madelaine SAHA Report Released Date/Time: Oct 15, 2023 11:05 AM Reporting Lab: [facility] [place] [facility] [address] [facility] [address] Performing Lab: [facility] [place] [facility] [address] [facility] [address] [facility] [place] [facility] LIVER FUNCTION ALKALINE PHOSPHATAS E [ENZYMATIC ACTIVITY/V OLUME] IN SERUM OR PLASMA 50 U/L 40 - 150 10/14 Specimen Type: SERUM No comment entered. Ordering Provider: Madelaine SAHA Report Released Date/Time: Oct 15, 2023 11:05 AM Reporting Lab: [facility] [place] [facility] [address] [facility] [address] Performing Lab: [facility] [place] [facility] [address] [facility] [address] [facility] [place] [facility] LIVER FUNCTION ASPARTATE AMINOTRANS FERASE [ENZYMATIC ACTIVITY/V OLUME] IN SERUM OR PLASMA 15 U/L 5 - 34 10/14 Specimen Type: SERUM No comment entered. Ordering Provider: Madelaine SAHA Report Released Date/Time: Oct 15, 2023 11:05 AM Reporting Lab: [facility] [place] [facility] [address] [facility] [address] Performing Lab: [facility] [place] [facility] [address] [facility] [address] [facility] [place] [facility] LIVER FUNCTION ALANINE AMINOTRANS FERASE [ENZYMATIC ACTIVITY/V OLUME] IN SERUM OR PLASMA 26 U/L 10/14 Specimen Type: SERUM No comment entered. Ordering Provider: Madelaine SAHA Report Released Date/Time: Oct 15, 2023 11:05 AM Reporting Lab: [facility] [place] [facility] [address] [facility] [facility] [address] Performing Lab: [facility] [place] [facility] [address] [facility] [address] [facility] [place] [facility] LIVER FUNCTION BILIRUBIN. TOTAL [MASS/VOLU ME] IN SERUM OR PLASMA 0.5 mg/dL 0.2 - 1.2 10/14 Specimen Type: SERUM No comment entered. Ordering Provider: Madelaine SAHA Report Released Date/Time: Oct 15, 2023 11:05 AM Reporting Lab: [facility] [place] [facility] [address] [facility] [address] Performing Lab: [facility] [place] [facility] [address] [facility] [address] [facility] [place] [facility] CBC LEUKOCYTES [#/VOLUME] IN BLOOD BY AUTOMATED COUNT 6.94 10*3/uL 4.50 - 11.00 05/24 Specimen Type: BLOOD No comment entered. Ordering Provider: Madelaine SAHA Report Released Date/Time: Apr 14, 2023 08:29 AM Reporting Lab: [facility] [place] [facility] [address] [facility] [facility] [address] Performing Lab: [facility] [place] [facility] [address] [facility] [address] [facility] [place] [facility] CBC ERYTHROCYT ES [#/VOLUME] IN BLOOD BY AUTOMATED COUNT 4.59 10*6/uL 4.23 - 5.66 05/24 Specimen Type: BLOOD No comment entered. Ordering Provider: Madelaine SAHA Report Released Date/Time: Apr 14, 2023 08:29 AM Reporting Lab: [facility] [place] [facility] [address] [facility] [address] Performing Lab: [facility] [place] [facility] [address] [facility] [address] [facility] [place] [facility] CBC HEMOGLOBIN [MASS/VOLU ME] IN BLOOD 12.9 g/dL 12.8 - 17 05/24 Specimen Type: BLOOD No comment entered. Ordering Provider: Madelaine SAHA Report Released Date/Time: Apr 14, 2023 08:29 AM Reporting Lab: [facility] [place] [facility] [address] [facility] [address] Performing Lab: [facility] [place] [facility] [address] [facility] [address] [facility] [facility] CBC HEMATOCRIT [VOLUME FRACTION] OF BLOOD BY AUTOMATED COUNT 40.6 39.2 - 50.4 05/24 Specimen Type: BLOOD No comment entered. Ordering Provider: Madelaine SAHA Report Released Date/Time: Apr 14, 2023 08:29 AM Reporting Lab: [facility] [place] [facility] [address] [facility] [address] Performing Lab: [facility] [place] [facility] [address] [facility] [address] [facility] [place] [facility] CBC MCV [ENTITIC VOLUME] BY AUTOMATED COUNT 88.5 fL 82 - 99 05/24 Specimen Type: BLOOD No comment entered. Ordering Provider: Madelaine SAHA Report Released Date/Time: Apr 14, 2023 08:29 AM Reporting Lab: [facility] [place] [facility] [address] [facility] [address] Performing Lab: [facility] [place] [facility] [address] [facility] [address] [facility] [place] [facility] CBC MCHC [MASS/VOLU ME] BY AUTOMATED COUNT 31.8 g/dL 30.8 - 35.1 05/24 Specimen Type: BLOOD No comment entered. Ordering Provider: Madelaine SAHA Report Released Date/Time: Apr 14, 2023 08:29 AM Reporting Lab: [facility] [place] [facility] [address] [facility] [address] Per[place] Lab: [facility] [place] [facility] [address] [facility] [address] [facility] [place] [facility] CBC PLATELETS [#/VOLUME] IN BLOOD BY AUTOMATED COUNT 309 10*3/uL 140 - 360 05/24 Specimen Type: BLOOD No comment entered. Ordering Provider: Madelaine SAHA Report Released Date/Time: Apr 14, 2023 08:29 AM Reporting Lab: [facility] [place] [facility] [address] [facility] [address] Performing Lab: [facility] [place] [facility] [address] [facility] [address] [facility] [place] [facility] CBC ERYTHROCYT E DISTRIBUTI ON WIDTH [RATIO] BY AUTOMATED COUNT 14.0 12.0 - 16.0 05/24 Specimen Type: BLOOD No comment entered. Ordering Provider: Madelaine SAHA Report Released Date/Time: Apr 14, 2023 08:29 AM Reporting Lab: [facility] [place] [address] [address] Performing Lab: [facility] [place] [facility] [address] [facility] [address] [facility] [place] [facility] CBC MCH [ENTITIC MASS] BY AUTOMATED COUNT 28.1 pg 26.2 - 32.6 05/24 Specimen Type: BLOOD No comment entered. Ordering Provider: Madelaine SAHA Report Released Date/Time: Apr 14, 2023 08:29 AM Reporting Lab: [facility] [place] [facility] [address] [facility] [address] Performing Lab: [place] [facility] [place] [facility] [address] [facility] [address] [facility] [place] [facility] BASIC METABOLI C PANEL (fasting ) UREA NITROGEN [MASS/VOLU ME] IN SERUM OR PLASMA 17 mg/dL 7 - 25 05/24 Specimen Type: SERUM No comment entered. Ordering Provider: Madelaine SAHA Report Released Date/Time: Apr 26, 2023 04:38 PM Reporting Lab: [facility] [place] [address] [address] Performing Lab: [facility] [place] [place] [facility] [address] [facility] [address] [facility] BASIC METABOLI C PANEL (fasting ) GLUCOSE [MASS/VOLU ME] IN SERUM OR PLASMA 95 mg/dL 65 - 100 05/24 Specimen Type: SERUM No comment entered. Ordering Provider: Madelaine SAHA Report Released Date/Time: Apr 26, 2023 04:38 PM Reporting Lab: [facility] [address] [address] Performing Lab: [facility]UN[facility] SYSTEMTRN [facility] [address] [facility] [address] [facility] BASIC METABOLI C PANEL (fasting ) SODIUM [MOLES/VOL UME] IN SERUM OR PLASMA 142 mmol/L 135 - 145 05/24 Specimen Type: SERUM No comment entered. Ordering Provider: Madelaine SAHA Report Released Date/Time: Apr 26, 2023 04:38 PM Reporting Lab: [facility]UN[facility]TRN [facility]ITALUSE[facility] [address] [address] Performing Lab: [facility]ITAL[facility] [address] [facility] [address] [facility] BASIC METABOLI C PANEL (fasting ) POTASSIUM [MOLES/VOL UME] IN SERUM OR PLASMA 4.8 mmol/L 3.5 - 5.0 05/24 Specimen Type: SERUM No comment entered. Ordering Provider: Madelaine SAHA Report Released Date/Time: Apr 26, 2023 04:38 PM Reporting Lab: [facility]TRN [facility]ITALUSE[facility] [address] [facility] [address] Performing Lab: [facility]UN[facility] SYSTEMTRN [facility]ITALUSE[facility] [address] [facility] [address] [facility] BASIC METABOLI C PANEL (fasting ) CHLORIDE [MOLES/VOL UME] IN SERUM OR PLASMA 107 mmol/L 100 - 110 05/24 Specimen Type: SERUM No comment entered. Ordering Provider: Madelaine SAHA Report Released Date/Time: Apr 26, 2023 04:38 PM Reporting Lab: [facility] [address] [address] Performing Lab: [facility] [address] [address] [facility] [place] [facility] BASIC METABOLI C PANEL (fasting ) CARBON DIOXIDE, TOTAL [MOLES/VOL UME] IN SERUM OR PLASMA 24 meq/L 20 - 30 05/24 Specimen Type: SERUM No comment entered. Ordering Provider: Madelaine SAHA Report Released Date/Time: Apr 26, 2023 04:38 PM Reporting Lab: [place] [facility] [address] [address] Performing Lab: [place] [facility]ITALUSE[address] [address] [facility] [place] [facility] BASIC METABOLI C PANEL (fasting ) CREATININE [MASS/VOLU ME] IN SERUM OR PLASMA 1.49 mg/dL 0.50 - 1.40 05/24 H Specimen Type: SERUM No comment entered. Ordering Provider: Madelaine SAHA Report Released Date/Time: Apr 26, 2023 04:38 PM Reporting Lab: [facility] [place] [address] [address] Performing Lab: [place] [facility]ITALUSETS [address] [address] [facility] [place] [facility] BASIC METABOLI C PANEL (fasting ) GLOMERULAR FILTRATION RATE/1.73 SQ M.PREDICTE D [VOLUME RATE/AREA] IN SERUM, PLASMA OR BLOOD BY CREATININE -BASED FORMULA (CKD-EPI 2020) 48 mL/min 60 05/24 L Specimen Type: SERUM No comment entered. Ordering Provider: Madelaine SAHA Report Released Date/Time: Apr 26, 2023 04:38 PM Reporting Lab: [place] [facility] [address] [address] Performing Lab: [facility] [facility]ITALUS[facility] [address] [facility] [facility] [address] [place] [facility] [place] [facility] IRON & TIBC PANEL IRON BINDING CAPACITY [MASS/VOLU ME] IN SERUM OR PLASMA 347 ug/dL 204 - 475 05/24 Specimen Type: SERUM No comment entered. Ordering Provider: Madelaine SAHA Report Released Date/Time: Apr 26, 2023 04:38 PM Reporting Lab: [facility] [place] [facility] [address] [facility] [address] Performing Lab: [facility] [place] [facility] [address] [facility] [address] [facility] [place] [facility] IRON & TIBC PANEL IRON [MASS/VOLU ME] IN SERUM OR PLASMA 41 ug/dL 40 - 160 05/24 Specimen Type: SERUM No comment entered. Ordering Provider: Madelaine SAHA Report Released Date/Time: Apr 26, 2023 04:38 PM Reporting Lab: [facility] [place] [facility] [address] [facility] [address] Performing Lab: [facility] [place] [facility] [address] [facility] [address] [facility] [facility] IRON & TIBC PANEL IRON/IRON BINDING CAPACITY.T OTAL [MASS RATIO] IN SERUM OR PLASMA 11.8 20.0 - 50.0 05/24 L Specimen Type: SERUM No comment entered. Ordering Provider: Madelaine SAHA Report Released Date/Time: Apr 26, 2023 04:38 PM Reporting Lab: [facility] [place] [facility] [address] [facility] [address] Performing Lab: [facility] [place] [facility] [address] [facility] [address] [facility] [facility] MICROALB UMIN CREATINI NE RATIO PANEL MICROALBUM IN/CREATIN INE [MASS RATIO] IN URINE 21.1 mg/g 0 - 29.9 05/24 Specimen Type: URINE No comment entered. Ordering Provider: VANWAGNER,W ILLIAM F Report Released Date/Time: Apr 26, 2023 04:38 PM Reporting Lab: [facility] [place] [facility] [address] [facility] [address] Performing Lab: [facility] [place] [facility] [address] [facility] [address] [facility] [place] [facility] MICROALB UMIN CREATINI NE RATIO PANEL MICROALBUM IN [MASS/VOLU ME] IN URINE 1.9 mg/dL 05/24 Specimen Type: URINE No comment entered. Ordering Provider: Madelaine SAHA Report Released Date/Time: Apr 26, 2023 04:38 PM Reporting Lab: [facility] [place] [facility] [address] [facility] [address] Performing Lab: [facility] [place] [facility] [address] [facility] [address] [facility] [place] [facility] MICROALB UMIN CREATINI NE RATIO PANEL CREATININE [MASS/VOLU ME] IN URINE 89.96 mg/dL 05/24 Specimen Type: URINE No comment entered. Ordering Provider: Madelaine SAHA Report Released Date/Time: Apr 26, 2023 04:38 PM Reporting Lab: [facility] [place] [facility] [address] [facility] [address] Performing Lab: [facility] [place] [facility] [address] [facility] [address] [facility] [place] [facility] URINALYS IS COLOR OF URINE Light-Ye llow 05/24 Specimen Type: URINE Comment: If Glucose = >500 and Ketones are positive, please alert the Physician. Ordering Provider: Madelaine SAHA Report Released Date/Time: Apr 26, 2023 04:38 PM Reporting Lab: [facility] [place] [facility] [address] [facility] [address] Performing Lab: [facility] [place] [facility] [address] [facility] [address] [facility] [facility] URINALYS IS APPEARANCE OF URINE Clear 05/24 Specimen Type: URINE Comment: If Glucose = >500 and Ketones are positive, please alert the Physician. Ordering Provider: Madelaine SAHA Report Released Date/Time: Apr 26, 2023 04:38 PM Reporting Lab: [facility] [place] [facility] [address] [facility] [address] Performing Lab: [facility] [place] [facility] [address] [facility] [address] [facility] [place] [facility] URINALYS IS GLUCOSE [MASS/VOLU ME] IN URINE NEGATIVE mg/dL 05/24 Specimen Type: URINE Comment: If Glucose = >500 and Ketones are positive, please alert the Physician. Ordering Provider: Madelaine SAHA Report Released Date/Time: Apr 26, 2023 04:38 PM Reporting Lab: [facility] [place] [facility] [address] [facility] [address] Performing Lab: [facility] [place] [facility] [address] [facility] [address] [facility] [facility] URINALYS IS KETONES [MASS/VOLU ME] IN URINE BY TEST STRIP NEGATIVE mg/dL 05/24 Specimen Type: URINE Comment: If Glucose = >500 and Ketones are positive, please alert the Physician. Ordering Provider: Madelaine SAHA Report Released Date/Time: Apr 26, 2023 04:38 PM Reporting Lab: [facility] [place] [facility] [address] [facility] [address] Performing Lab: [facility] [place] [facility] [address] [facility] [address] [facility] [facility] URINALYS IS ERYTHROCYT ES [PRESENCE] IN URINE SEDIMENT BY LIGHT MICROSCOPY NEGATIVE mg/dL 05/24 Specimen Type: URINE Comment: If Glucose = >500 and Ketones are positive, please alert the Physician. Ordering Provider: Madelaine SAHA Report Released Date/Time: Apr 26, 2023 04:38 PM Reporting Lab: [facility] [place] [facility] [address] [facility] [address] Performing Lab: [place] [facility] [place] [facility] [address] [facility] [address] [facility] [place] [facility] URINALYS IS PROTEIN [MASS/VOLU ME] IN URINE BY TEST STRIP NEGATIVE mg/dL 05/24 Specimen Type: URINE Comment: If Glucose = >500 and Ketones are positive, please alert the Physician. Ordering Provider: Madelaine SAHA Report Released Date/Time: Apr 26, 2023 04:38 PM Reporting Lab: [facility] [place] [facility] [address] [facility] [address] Performing Lab: [facility] [place] [facility] [address] [facility] [address] [facility] [place] [place] [facility] URINALYS IS NITRITE [PRESENCE] IN URINE NEGATIVE mg/dL 05/24 Specimen Type: URINE Comment: If Glucose = >500 and Ketones are positive, please alert the Physician. Ordering Provider: Madelaine SAHA Report Released Date/Time: Apr 26, 2023 04:38 PM Reporting Lab: [facility] [place] [facility] [address] [facility] [phone] Performing Lab: [place] [facility] [facility] [address] [facility] [address] [facility] [place] [place] [facility] URINALYS IS BILIRUBIN. TOTAL [PRESENCE] IN URINE NEGATIVE mg/dL 05/24 Specimen Type: URINE Comment: If Glucose = >500 and Ketones are positive, please alert the Physician. Ordering Provider: Madelaine SAHA Report Released Date/Time: Apr 26, 2023 04:38 PM Reporting Lab: [facility] [place] [facility] [address] [facility] [facility] [address] Performing Lab: [facility] [place] [facility] [address] [facility] [address] [facility] URINALYS IS SPECIFIC GRAVITY OF URINE BY REFRACTOME TRY 1.017 1.016 - 1.022 05/24 Specimen Type: URINE Comment: If Glucose = >500 and Ketones are positive, please alert the Physician. Ordering Provider: Madelaine SAHA Report Released Date/Time: Apr 26, 2023 04:38 PM Reporting Lab: [facility] [place] [facility] [address] [address] Performing Lab: [facility]TRN [facility]PITALUSETS [facility] [address] [facility] [id number] [facility] URINALYS IS PH OF URINE BY TEST STRIP 6.0 5.0 - 9.0 05/24 Specimen Type: URINE Comment: If Glucose = >500 and Ketones are positive, please alert the Physician. Ordering Provider: Madelaine SAHA Report Released Date/Time: Apr 26, 2023 04:38 PM Reporting Lab: [facility] [place] [facility] [address] [address] Performing Lab: [facility]USE[address] [address] [facility]PITALUSE [facility] URINALYS IS UROBILINOG EN [MASS/VOLU ME] IN URINE BY TEST STRIP <2.0mg/d L <2.0 - 2.0 05/24 Specimen Type: URINE Comment: If Glucose = >500 and Ketones are positive, please alert the Physician. Ordering Provider: Madelaine SAHA Report Released Date/Time: Apr 26, 2023 04:38 PM Reporting Lab: [facility] [place] [facility] [address] [address] Performing Lab: [facility]PITALUSETS [facility] [address] [address] [facility]ITALN [facility]ITALUSE [facility] URINALYS IS LEUKOCYTE ESTERASE [PRESENCE] IN URINE BY TEST STRIP NEGATIVE 05/24 Specimen Type: URINE Comment: If Glucose = >500 and Ketones are positive, please alert the Physician. Ordering Provider: Madelaine SAHA Report Released Date/Time: Apr 26, 2023 04:38 PM Reporting Lab: [facility] [address] [facility] [address] Performing Lab: [facility] [place] [facility] [address] [address] [facility] Vital Signs Combined list of inpatient and [...] [id number] 12:55:36 [facility] [place] [facility] PULSE OXIMETRY 90 10/22/2023 12:55:36 [facility] WEIGHT 196 10/22/2023 12:55:36 [facility] BMI 32kg/m2 10/22/2023 12:55:36 [facility] PAIN 0 10/22/2023 12:55:36 [facility] TEMPERATURE 98.1 10/22/2023 12:55:36 [facility] PULSE 88 10/22/2023 12:55:36 [facility] RESPIRATION 16 10/22/2023 12:55:36 [facility] [place] [facility] Encounters Combined list of: 1) Encounters from Department of Veterans Affairs facilities going back up to thelast 18 months. 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<b r/> VALENTÍN SAHA 01/22 [facility] En[facility] [id number] 01/22 [facility] En[facility] [id number] 01/25 [facility] Encounter [id number] 01/25 [facility] En[facility] [id number] 01/25 [facility] WHEELCHAIR MNGMENT TRAINING [id number] Diagnos is: ICD-10- CM R26.89 Other abnorma lities of gait and mobilit y
JOHN MCFADDEN ICA L 02/22 [facility] En[facility] [id number] 04/08 [facility] WHEELCHAIR MNGMENT TRAINING [id number] Diagnos is: ICD-10- CM R26.89 Other abnorma lities of gait and mobilit y
JOHN MCFADDEN ICA L 04/12 [facility] OFFICE O/P EST LOW 20-29 MIN [id number] Diagnos is: ICD-10- CM M35.00 Sjogren syndrom e, unspeci fied
VALENTÍN SAHA 04/23 [facility] [place] [place] Outpatient Encounter [id number] ALEXUS ZARAGOZA 04/24 [facility] [place] Outpatient Encounter [id number] Diagnos is: ICD-10- CM Z04.89 Encount er for examina tion and observa tion for oth reasons
ALEXUS ZARAGOZA 04/24 [place] [facility] Outpatient Encounter [id number] 04/27 [facility] [place] [place] [facility] TTE W/DOPPLER COMPLETE [id number] Diagnos is: ICD-10- CM I25.10 Athscl heart disease of [place] coronar y artery w/o ang pctrs<b r/> KIRT MAC 05/03 [facility] [place] [facility] CARDIOVERS ION ELECTRIC INT [id number] Diagnos is: ICD-10- CM Z13.9 Encount er for screeni ng, unspeci fied
CHANI PISANO 05/03 [place] [facility] Outpatient Encounter [id number] 07/23 [facility] [place] [place] [facility] [place] Outpatient Encounter [id number] 08/10 [facility] [place] Q[facility]P OL DIG ASSMT&MGMT 5-10 [id number] Diagnos is: ICD-10- CM S91.009 A Unspeci fied open wound, unspeci fied ankle, initial encount er
KATY THORPE 08/16 [facility] En[facility] [id number] Diagnos is: ICD-10- CM F43.10 Post-tr aumatic stress disorde r, unspeci fied
FEARINGPARVEZ A 09/20 [facility] En[facility] [id number] FEARING,PARVEZ Lopez 09/20 [facility] Encounter [id number] 10/04 [facility] OFFICE O/P EST LOW 20 MIN [id number] Diagnos is: ICD-10- CM J44.9 Chronic obstruc tive pulmona ry disease , unspeci fied
MARIA AVALENTÍN 10/21 [facility] OFF/OP EST MAY X REQ PHY/QHP [id number] Diagnos is: ICD-10- CM I10 Essenti al (primar y) hyperte nsion<b r/> Dionna YANEZ 10/24 [facility] COMPRE OPH EXAM NEW PT 1/> [id number] Diagnos is: ICD-10- CM H40.013 Open angle with borderl ine finding s, low risk, bilater al
PARVEZ LEMUS 10/24 [facility] ECHO EXAM OF EYE THICKNESS [id number] Diagnos is: ICD-10- CM H40.013 Open angle with borderl ine finding s, low risk, bilater al
PARVEZ LEMUS 10/24 [facility] FIT SPECTACLES MULTIFOCAL [id number] Diagnos is: ICD-10- CM Z46.0 Encount er for fit/adj st of spectac les and contact lenses< br/> PARVEZ LEMUS 10/25 [facility] Out[facility] En[facility] [id number] 10/25 [facility] Out[facility] Encounter [id number] 11/23 [facility] Out[facility] Encounter [id number] 12/07 [facility] Out[facility] Encounter [id number] 12/09 [facility] Out[facility] Encounter [id number] 12/09 [facility] Out[facility] Encounter [id number] 01/23 [facility] QNHP OL DIG ASSMT&MGMT 5-10 [id number] Diagnos is: ICD-10- CM Z12.2 Encntr screen for maligna nt neoplas m of respira tory organs< br/> PUCHALSKI, MIRELA L 01/23 [facility] Out[facility] En[facility] [id number] 01/31 [facility] Outpatient Encounter [id number] 05/11 [facility] Outpatient Encounter [id number] 05/16 [facility] QNHP OL DIG ASSMT&MGMT 5-10 [id number] Diagnos is: ICD-10- CM R52 Pain, unspeci fied
LAURA LEDESMA 05/26 [facility] [place] [place] Outpatient Encounter [id number] 06/01 [facility] [place] [place] [facility] Social History Combined list of available smoking, tobacco, and other social history from Department of Defense and Veterans Affairs facilities. Social History Type Response Date Comment Sour e Tobacco smoking status NHIS VA-TOBACCO USE FORMER CIGARETTES 06/01/2024 [facility] [place] [facility] History of tobacco use CO-TOBACCO NEVER USED OTHER TYPE 06/01/2024 [facility] [place] [facility] History of tobacco use VA-TOBACCO QUIT 5 TO < 15 YRS 01/22/2023 [facility] [place] [facility] History of tobacco use VA-TOBACCO FORMER USER 02/17/2022 [facility] [place] [facility] History of tobacco use VA-TOBACCO QUIT 1 TO < 5 YRS 06/22/2019 VICKY EVANS Plan of Care List of future care activities from Department of Veterans Affairs facilities. Additional future care activities may be listed in the Assessment and Plan section. Date/Time Care Activity Care Activity Detail Facili ty 06/28/2024 AMBULATORY - MEDICINE AMBULATORY - MEDICI [place] [facility] [place] [facility] 09/07/2024 AMBULATORY - MEDICINE AMBULATORY - MEDICI [place] [facility] [place] [facility] 10/20/2024 AMBULATORY - MEDICINE AMBULATORY - MEDICI NE [facility] 05/23/2024 Consult Order [facility] Advance Directives List of completed, amended, or rescinded Advance Directives on record at Department of [facility] facilities. An actual copy of the Directive is not included. Date Advance Directive Provider Source 10/26/2023 ADVANCE DIRECTIVE MARGARITA KRAFT [facility]
[2024-06-26 11:00] VITALS: BP 130/88; PULSE 85; O2SAT 90; BMI 29.5
--- NOTE | 2024-06-26 11:00 | A.OFFVIS_ITS ---
Vital Signs 06/26/24 11:00 Height 5 ft 6 in Weight 182 lb 15.739 oz BMI 29.5 BP 130/88 Blood Pressure Location Rt brachial Position Sitting Pulse 85 Pulse Source Pulse Oximeter Pulse Oximetry (%) 90 L Oxygen Delivery Method Room Air Intake Visit Reasons: COPD Allergies heparin (porcine) Allergy (Severe, Verified 06/26/24 11:05) HIT HPI HPI COPD: Details: Sarath is a pleasant 78 year old male, former smoker, with 30 pack year history, quit 2019, with underlying COPD, Sjogren's, Rheumatoid arthritis on Humira, provoked PE, CKD, HTN and chronic nonhealing wound. He continues to be nonambulatory due to poor healing wound on foot, currently in wheelchair and accompanied by . At the last visit, he was sent for overnight oximetry/PFT and presents today to review results. He was started on Trelegy with good effect, using albuterol MDI infrequently. He continues to report dyspnea with exertion, denies cough, wheezing or chest tightness. He denies any visits to urgent care or hospitalizations since the last visit. [facility] Medical History MDD (major depressive disorder), single episode Pressure injury of buttock, stage 1 Deep vein thrombosis 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 Acute pulmonary embolism with acute cor pulmonale Acute pulmonary embolism Cardiac arrest CKD (chronic kidney disease) stage 3, GFR 30-59 ml/min Sjogren's disease Leg pain, bilateral Elevated serum creatinine COPD (chronic obstructive pulmonary disease) HTN (hypertension) Rheumatoid arthritis Chronic ulcer of leg Surgical History History of ankle surgery History of hernia repair History of left knee replacement Family History Sister Breast cancer Father Aneurysm Mother Angina at rest Other No family history of coronary artery disease Social History (Updated 06/26/24 @ 11:04 by Sandra Andre CMA) Household Members: Spouse Housing: House Do you presently have visiting nurse or other home services: No Alcohol intake: current Alcohol intake frequency: holidays/special occasions only Comment: restraints Patient Tobacco Use Status: Former Tobacco user Tobacco use type: Cigarette Cigarette Packs Per Day: 1 Years Smoked: quit 30+ years e-Cigarette/Vaping Use: Never Used Advance Directives Date on File: 12/23/21 service: Yes Current occupational status: retired Cognitive needs: Yes (cane) Hearing needs: No Vision needs: Yes (Pt wear glasses. ) Review of Systems Const Denies chills, Denies excessive sweating, Denies fever(s), Denies headache(s) and Denies night sweats Eyes Denies dry eyes, Denies irritation and Denies itchy eyes ENT Reports Normal hearing present, Denies headache(s), Denies nasal congestion, Denies nasal discharge and Denies sore throat Card Denies chest pain, Denies chest pain at rest, Denies chest pain with activity, Denies claudication, Reports dyspnea on exertion, Denies orthopnea and Denies paroxysmal nocturnal dyspnea Resp Denies chest congestion, Denies cough, Denies excessive phlegm production, Denies pain on inspiration, Denies pain with cough, Reports dyspnea on exertion, Denies stridor and Denies wheezing Musc Denies myalgias Neuro Reports Normal hearing present and Denies headache(s) Endo Denies excessive sweating Jhon/Lymph Denies lymphadenopathy Aller/Immun Denies itchy eyes, Denies seasonal rhinorrhea and Denies wheezing Physical Exam Vital Signs: Last Vital Signs Pulse 85 06/26/24 11:00 BP 130/88 06/26/24 11:00 Pulse Ox 90 L 06/26/24 11:00 Oxygen Delivery Method Room Air 06/26/24 11:00 BMI result Body Mass Index 29.5 Const General: cooperative, healthy appearing, comfortable, no acute distress, well developed and alert Orientation/consciousness: patient oriented x3 Limitations: wheelchair HEENT Head: Yes normal to inspection, Yes normocephalic and Yes atraumatic Ears: hearing grossly normal bilaterally and external ears normal Eyes General: appearance normal, both eyes and all related structures Eyelids: Yes eyelids normal Sclerae: sclerae normal EOM: EOMs intact bilaterally Neck Neck: Yes normal visual inspection and Yes no lymphadenopathy Lymphatic: no lymphadenopathy noted Chest Chest palpation & inspection: normal inspection of the chest Resp Effort & Inspection: normal respiratory effort, able to speak in complete sentences, no audible wheezes, no cough, no stridor, not tachypneic, no tripod positioning and no use of accessory muscles Auscultation: diminished lung sounds Cardio Jugular venous distension: no JVD Rate: regular rate Skin Other: warm, dry Neuro General: patient oriented x3 Cranial nerves: Yes Normal hearing present Cognition (Neuro): normal cognition Extrem Other: LLE with edema, covered with dry, clean dressing Psych Appearance: grossly normal and well kempt Speech and movement: Normal speech and movement present and Clear speech present Affect: normal affect Attitude: cooperative Thought process: Normal thought process present Thought content: Normal thought content present Insight: Good insight present (Psych) Judgement: Good judgement present (Psych) Assessment & Plan Assessment & Plan (1) COPD (chronic obstructive pulmonary disease): Code(s): J44.9 - Chronic obstructive pulmonary disease, unspecified Category: Medical (2) Personal history of tobacco use: Comment: CT 10/30/2023 Code(s): Z87.891 - Personal history of nicotine dependence Category: Social Hx (3) Cough: Code(s): R05.9 - Cough, unspecified Category: Medical (4) Nocturnal hypoxemia: Code(s): G47.34 - Idiopathic sleep related nonobstructive alveolar hypoventilation Category: Medical Plan Reviewed PFT which revealed moderate obstructive ventilatory defect with bronchodilator response present in small to medium airways only. Decreased diffusion capacity suggests emphysema. Reviewed overnight oximetry which revealed nocturnal hypoexmia <88% for 41 minutes and recommendation to assess for underlying sleep breathing disorder due to 43 desaturation events per hour with home sleep study, however patient would like to hold off at this time. Also discussed 1L of supplemental oxygen at [facility] due to hypoxia, however he declined. Upon arrival to room O2 was 90L on room air, rechecked and patient 92% on room air. He reports good control of respiratory symptoms at baseline, advised to continue and trial albuterol prior to exerting self. CT chest performed 11/2023 with no concerning pulmonary nodules, will repeat in one year to assess stability given smoking history. All questions were answered and patient is in agreement of plan. Will follow up in 3 months sooner if needed. Orders: Orders CT chest wo IV con 5 Months Z87.891 - Personal history of nicotine dependence Coding Level of Care Code Est Pt Level 4 (00980) Diagnoses COPD (chronic obstructive pulmonary disease) J44.9 Personal history of tobacco use Z87.891 Cough R05.9 Nocturnal hypoxemia G47.34
== END 2024-06-26 11:40 | disposition home or self-care (01) ==
PROVIDERS: PCP Internal Medicine; Visit Provider Nurse Practitioner Family
DX: J44.9 Chronic obstructive pulmonary disease, unspecified (principal); Z87.891 Personal history of nicotine dependence; R05.9 Cough, unspecified; G47.34 Idiopathic sleep related nonobstructive alveolar hypoventilation
CPT/HCPCS: 99214

== ENCOUNTER 2024-07-24 10:34 | Outpatient (AMB) | payer MEDICARE, SELFPAY ==
[2024-07-24 10:44] VITALS: BP 130/76; PULSE 87; O2SAT 97; BMI 29.9
--- NOTE | 2024-07-24 10:44 | MHC.OFFVIS ---
Vital Signs 07/24/24 10:44 Height 5 ft 6 in Weight 185 lb BMI 29.9 BP 130/76 Blood Pressure Location Lt brachial Position Sitting Pulse 87 Pulse Source Pulse Oximeter Pulse Oximetry (%) 97 Oxygen Delivery Method Room Air Intake Visit Reasons: Pyoderma Intake Note: Patient last seen by Doctor Kofi Horne on 04/03/24. Presents today for Pyoderma follow up and test results. Patient complains of knee pain and swelling today. Allergies heparin (porcine) Allergy (Severe, Verified 07/24/24 10:45) HIT Medication List - Last Reconciled 07/24/24 by Kofi Horne MD acetaminophen (Tylenol Extra Strength) 1,000 mg PO Q6H PRN albuterol sulfate 90 mcg/actuation 2 puffs inhalation Q6H PRN amlodipine 2.5 mg PO DAILY duloxetine 20 mg PO BEDTIME ferrous sulfate 325 mg PO DAILY fluticasone propionate 50 mcg/actuation (Flonase Allergy Relief) 2 sprays intranasal DAILY PRN nrouuwazukb-tdlfbebna-bgkssvod 100-62.5-25 mcg (Trelegy Ellipta) 1 inh inhalation DAILY gabapentin 600 mg PO DAILY gabapentin 800 mg PO BEDTIME 90 days hydromorphone 2 mg PO DAILY PRN 30 days ibuprofen 400 mg PO DAILY PRN Lactobac. rhamnosus GG-inulin 20 billion cell -200 mg (Culturelle Ultimate) 1 cap PO DAILY 2 weeks metoprolol succinate ER 50 mg PO DAILY miscellaneous medical supply As directed naloxone 4 mg/actuation (Narcan) 4 mg intranasal Q2M PRN prednisone 20 mg PO BID prednisone 10 mg PO DAILY HPI Comments Details: 78-year-old male with seronegative RA/Sjogren's (dry mouth +++Ro) and pyoderma gangrenosum returns for follow-up. Patient admitted with a COPD exacerbation back in April, he was treated with steroids in the hospital, his pyoderma gangrenosum wounds were improving, on discharge his community affairs director recommended that he continue with steroids with a taper, he was recently reduced to 10 mg a day. Per once the prednisone dosage was lowered he stopped having any improvement in his wounds. For the last month he has been having right knee pain and swelling, he is requesting drainage and injection today Initial history: This is a 76-year-old male with a past medical history of rheumatoid arthritis, Sjogren's, pyoderma gangrenosum, hypertension, bilateral PE who presents for evaluation of left lower extremity open wounds. Patient is originally from [place], moved to [place] in June of 2021. Patient stated that he was initially diagnosed with Sjogren's at the OR back in the due to dry eyes. He was eventually diagnosed with rheumatoid arthritis and he had been on Enbrel since the for many years. Enbrel was switched to reflect this for about 1 year but it was not effective. He was switched to Actemra in June of 2021 to bring down his inflammatory markers down. He received Actemra infusions for 2-3 months then moved to [place]. In [place] patient initially could not find a network operations project manager, he was eventually evaluated by Dari Good. Starting June of 2021 patient started having open left lower extremity wounds that were quite painful. He was admitted at the hospital in summer for evaluation of those wounds. 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 He was started on argatroban then switched to warfarin on discharge. Patient was evaluated by community affairs director in [place] Dr. Godwin who started patient on Rinvoq 3-4 months ago. Tear they state that the smaller lower extremity wounds have closed and the large wound is not getting worse and might be getting somewhat better. With regards to his joint pain patient states he is about the same, he has stiffness of his hands worse on the right hand. He has bilateral hand contractures from many years of RA. [facility], [facility] Medical History MDD (major depressive disorder), single episode Pressure injury of buttock, stage 1 Deep vein thrombosis 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 Acute pulmonary embolism with acute cor pulmonale Acute pulmonary embolism Cardiac arrest CKD (chronic kidney disease) stage 3, GFR 30-59 ml/min Sjogren's disease Leg pain, bilateral Elevated serum creatinine COPD (chronic obstructive pulmonary disease) HTN (hypertension) Rheumatoid arthritis Chronic ulcer of leg Surgical History History of ankle surgery History of hernia repair History of left knee replacement Family History Sister Breast cancer Father Aneurysm Mother Angina at rest Other No family history of coronary artery disease Social History Household Members: Spouse Housing: House Do you presently have visiting nurse or other home services: No Alcohol intake: current Alcohol intake frequency: holidays/special occasions only Comment: restraints Patient Tobacco Use Status: Former Tobacco user Tobacco use type: Cigarette Cigarette Packs Per Day: 1 Years Smoked: quit + years e-Cigarette/Vaping Use: Never Used Advance Directives Date on File: 12/23/21 service: Yes Current occupational status: retired Cognitive needs: Yes (cane) Hearing needs: No Vision needs: Yes (Pt wear glasses. ) Review of Systems Musc Reports arthralgias, Reports joint swelling and Reports stiffness Skin/Breast Reports non-healing lesions, Reports skin pain, Reports skin ulcer and Reports wounds Physical Exam Vital Signs: Last Vital Signs Pulse 87 07/24/24 10:44 BP 130/76 07/24/24 10:44 Pulse Ox 97 07/24/24 10:44 Oxygen Delivery Method Room Air 07/24/24 10:44 BMI result Body Mass Index 29.9 Const General: cooperative, healthy appearing and comfortable Nutritional Appearance: overweight Limitations: wheelchair HEENT Head: Yes normocephalic and Yes atraumatic Resp Effort & Inspection: normal respiratory effort and able to speak in complete sentences Extrem Other: Right hand RA deformities with ulnar deviation and synovial thickening of his MCPs. 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 Normal range of motion of elbows and shoulders Significant right knee swelling, warmth, the knee is held in semi flexion, there is pain with any range of motion Office Procedures AMB Joint Injection/Aspiration Joint Injection/Aspiration Primary Site: right knee Prep: site was prepped using sterile technique and ethochloride spray was applied Injected: 40 mg of, Kenalog, with 3 mL of, 1% plain lidocaine and in the joint Approach Used: other (Superolateral) Procedure: The patient tolerated the procedure well Coding Details: With the patient's consent the right knee was prepped with ChloraPrep and alcohol. The suprapatellar area was prepped with ChloraPrep ethyl chloride spray was used then the skin and subcutaneous tissue was anesthetized with 1% lidocaine then using an 18 gauge needle 35 cc of serosanguineous fluid were aspirated then injected with 40 mg of Kenalog. The patient tolerated the procedure well with no apparent acute adverse events - Large joint Procedure code (CPT) selection complete Office Meds lidocaine (PF) 10 mg/mL (1 %) injection solution Performing Provider: Kofi Horne MD Performing Location: [facility] Administered by: Kofi Horne MD on 07/24/24 11:44 Dose Route Admin Location Dispensed Lot Number Expiration Date [facility] [employer] 40 mg Infiltration Right knee 4 mL [id number] 10/10/26 69288-277-91 [facility] Kenalog 40 mg/mL suspension for injection Performing Provider: Kofi Horne MD Performing Location: [facility] Administered by: Kofi Horne MD on 07/24/24 11:44 Dose Route Admin Location Dispensed Lot Number Expiration Date [facility] [employer] 40 mg intra-articular Right knee 1 mL [id number] 01/09/26 [address]-3 [employer] Assessment & Plan Assessment & Plan (1) Pyoderma gangrenosum: Code(s): L88 - Pyoderma gangrenosum Category: Medical Plan: This is a 78-year-old male originally from [place], recently moved to [place] with past medical history of seronegative RA/Sjogren's (dry mouth +++Ro) diagnosed in the treated with Enbrel for at least 15 years years. Patient had right lower extremity wounds which were treated with Renflexis & prednisone with good results however he was having recurrent knee swelling. He was switched to Kevzara early 2021 with some improvement. Patient developed left lower extremity pyoderma gangrenosum. This started around June 2021. 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 He is currently on warfarin now switched to rivaroxaban by light out examiner. This was discontinued months ago. Patient was started on Rinvoq by his community affairs director Dr. Omar Cantor in [place], with little improvement, then dose was increased from 15 mg daily to 30 mg daily for a few months without significant improvement. A steroid tapering course was prescribed 10 months ago which provided temporary improvement. Patient took 3 doses of Renflexis and it was discontinued due to a reaction with joint pain. He was then started on Humira, he took Humira 40 mg every other week then advanced to 40 mg weekly without improvement. He then failed CellCept. CellCept was discontinued. 04/2024 patient was admitted with COPD exacerbation and received IV steroids with improvement of his pyoderma gangrenosum wounds, he was advised by his community affairs director to continue with steroids, his steroids are being tapered, per once the dose was lowered to 10 mg a day he stopped getting any improvement. Reviewed records from patient's previous network operations project manager when he had the left knee synovitis, synovial fluid showed CPPD crystals consistent with pseudogout. My belief is Renflexis and prednisone was working well for rheumatoid arthritis and pyoderma gangrenosum, when patient was switched to Kevzara the pyoderma gangrenosum recurred Last visit we discussed IVIG. There has been some case series showing success in factory pyoderma gangrenosum. (PMID:?[id number]) we Discussed risks and benefits of IVIG. Patient initially agreed to proceed then decided not to proceed with it. Today patient is still declining IVIG. Labs before next visit in 4 months (2) Rheumatoid arthritis: Code(s): M06.9 - Rheumatoid arthritis, unspecified Category: Medical Qualifiers: Rheumatoid arthritis location: multiple sites Rheumatoid factor presence: without rheumatoid factor Qualified Code(s): M06.09 - Rheumatoid arthritis without rheumatoid factor, multiple sites Plan: Patient has right knee effusion today that was tapped, then injected with Kenalog. A fluid was turbid so this is likely an inflammatory fluid, pseudogout flare versus RA flare versus other causes such as infectious causes, we will await synovial fluid results Plan I spent 30 minutes reviewing patient's chart, evaluating patient, ordering diagnostic workup, counseling patient & his and documenting in the chart Orders: Orders Cell Ct wDiff Synovial Fl Today M06.09 - Rheumatoid arthritis without rheumatoid factor, multiple sites Synov Fld Cult + Crystals Today M06.09 - Rheumatoid arthritis without rheumatoid factor, multiple sites AMB Joint Injection/Aspiration Today M06.09 - Rheumatoid arthritis without rheumatoid factor, multiple sites Lyme Synovial Fld PCR Today M25.461 - Effusion, right knee Coding Level of Care Code Est Pt Level 4 (88067) Diagnoses Pyoderma gangrenosum L88 Rheumatoid arthritis of multiple sites with negative rheumatoid factor M06.09 Rheumatoid arthritis location: multiple sites Rheumatoid factor presence: without rheumatoid factor CPT Codes Coding - 38083 Large joint: 22059 - Large joint ([id number])
--- OUTSIDE RECORDS SUMMARY | 2024-07-24 12:11 | XMS_ITS | Continuity of Care Document ---
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 Name Role Phone [facility] Unavailable Unavailable Problems Combined list of problems [...] COPD - Chronic Obstructive Pulmonary Disease (SCT [id number]) Active Condition [facility] [place] [facility] Deep venous thrombosis of upper extremity Active Condition Feb 18, 2022 Entered By: MESFIN SAHA Comment: Left [facility] Depression (SCT [id number]) Active Condition [facility] Exposure to potentially hazardous substance Active Condition Oct 07, 2023 Entered By: COL BHARATHI ADAME Comment: ILIANA Screening Snomed Code connected 01/22/23 [facility] H/O: rheumatoid arthritis Active Condition [facility]ension [facility] Moderate protein-calorie malnutrition (weight for age 60-74 percent of standard) Active Condition [facility] PE - Pulmonary Embolism (SCT [id number]) Active Condition [facility] Pyoderma gangrenosum Active Condition [facility] Rhe[facility]oid arthritis Active Condition [facility] Sjogren syndrome Active Condition [facility] [place] Venous ulcer [facility] Diagnosis: ICD-10-CM R52 Pain, unspecified Active Diagnosis [facility] Diagnosis: ICD-10-CM Z12.2 Encntr screen for malignant neoplasm of respiratory organs Active Diagnosis [facility] [place] [facility] Diagnosis: ICD-10-CM Z46.0 Encounter for fit/adjst of spectacles and contact lenses Active Diagnosis [facility] Diagnosis: ICD-10-CM H40.013 Open angle with borderline findings, low risk, bilateral Active Diagnosis [facility] Diagnosis: ICD-10-CM I10 Essential (primary) hypertension [facility] Diagnosis: ICD-10-CM J44.9 Chronic obstructive pulmonary disease, unspecified Active Diagnosis [facility] [place] [facility] Diagnosis: ICD-10-CM F43.10 Post-traumatic stress disorder, unspecified Active Diagnosis [facility] [place] [facility] Diagnosis: ICD-10-CM S91.009A Unspecified open wound, unspecified ankle, initial encounter Active Diagnosis [facility] Diagnosis: ICD-10-CM Z13.9 Encounter for screening, unspecified Active Diagnosis [facility] Diagnosis: ICD-10-CM I25.10 Athscl heart disease of [place] coronary artery w/o ang pctrs Active Diagnosis [facility] [place] [facility] Diagnosis: ICD-10-CM Z04.89 Encounter for examination and observation for oth reasons Active Diagnosis [facility] Diagnosis: ICD-10-CM M35.00 Sjogren syndrome, unspecified Active Diagnosis [facility] [place] [facility] Diagnosis: ICD-10-CM R26.89 Other abnormalities of gait and mobility Active Diagnosis [facility] [place] [facility] Diagnosis: ICD-10-CM E44.0 Moderate protein-calorie malnutrition Active [facility] Medications Combined list of outpatient medications [...] MOUTH PRN ORAL ACTIVE VALENTÍN SAHA 2022 [facility] ALBUTEROL 90MCG/ACTUA T (CFC-F) INHL,ORAL,8 .5GM DOSE COUNTER INHALE 2 PUFFS BY MOUTH EVERY 6 HOURS NEEDED RESPIR ATORY (INHAL ATION) ACTIVE VALENTÍN SAHA 2022 [facility] CALCIUM CARBONATE TAB TAKE ACTIVE [facility] [place] CHOLECALCIF MELISSA (VIT D3) TAB TAKE EVERY DAY ACTIVE [facility] [place] DULOXETINE HCL 20MG CAP,EC TAKE 1 CAPSULE BY MOUTH AT BEDTIME ORAL ACTIVE VALENTÍN SAHA 2022 [facility] ETANERCEPT 50MG INJ,SOLN INJECT UNDER THE SKIN SUBCUT ANEOUS ACTIVE [facility] [place] FAMOTIDINE TAB TAKE ACTIVE [facility] [place] FLUTICASONE PROPIONATE 50MCG/SPRAY SOLN,NASAL, 16GM INSTILL 2 SPRAYS INTO EACH NOSTRIL ONCE DAILY NASAL ACTIVE VALENTÍN SAHA 2022 [facility] GABAPENTIN 300MG CAP TAKE 2 CAPSULES BY MOUTH EVERY EVENING AND TAKE 4 CAPSULES BY MOUTH AT BEDTIME ORAL ACTIVE VALENTÍN SAHA 2022 [facility] HYDROCHLORO THIAZIDE TAB TAKE EVERY DAY ACTIVE [facility] [place] HYDROMORPHO NE HCL 2MG TAB TAKE ONE TABLET BY MOUTH THREE TIMES DAILY NEEDED ORAL ACTIVE VALENTÍN SAHA 2022 [facility] [place] [facility] [facility] IBUPROFEN TAB TAKE PRN ACTIVE [facility] [place] METOPROLOL TARTRATE 25MG TAB TAKE ONE TABLET BY MOUTH TWICE DAILY ORAL ACTIVE VALENTÍN SAHA 2022 [facility] [place] MULTIVITAMI N & MINERALS TAB TAKE EVERY DAY ACTIVE [facility] [place] NALOXONE HCL 4MG/SPRAY SOLN,SPRAY, [...] DAILY INTRAV ENOUS DISCONT INUED (EDIT) 04/28/2024 [id number] JEAN LINDQUISTI 2023 30 [facility] SODIUM CHLORIDE 0.9% (PF) INJ,SYRINGE ,10ML INJECT 1 SYRINGE IV PUSH DIRECTED BY PROVIDER INTRAV ENOUS DISCONT INUED (EDIT) 02/18/2024 [id number] 4 JEAN LINDQUISTI 2023 30 [facility] [place] SODIUM CHLORIDE 0.9% (PF) INJ,SYRINGE ,10ML INJECT 1 SYRINGE DIRECTED BY PROVIDER ONCE DAILY NOT APPLIC ABLE 04/30/2024 [id number] 4 JEAN LINDQUISTI 2023 30 [facility] [place] SODIUM CHLORIDE 0.9% (PF) INJ,SYRINGE ,10ML APPLY 1 SYRINGE TOPICALL Y DIRECTED BY PROVIDER TOPICA L 03/02/2024 [id number] 4 JEAN LINDQUISTI 2023 30 [facility] SODIUM CHLORIDE 0.9% SOLN,IRRG IRRIGATE UDP TOPICALL Y EVERY OTHER DAY TOPICA L DISCONT INUED (EDIT) 10/01/2023 [id number] 4 JEAN LINDQUISTI 2023 1000 [facility] [place] SODIUM CHLORIDE 0.9% SOLN,IRRG IRRIGATE DIRECTED TOPICALL Y EVERY OTHER DAY TOPICA L 10/03/2023 [id number] 4 JEAN LINDQUISTI 2023 1000 [facility] SODIUM CHLORIDE 0.9% SOLN,IRRG IRRIGATE DIRECTED TOPICALL Y EVERY OTHER DAY TOPICA L 08/20/2023 [id number] 4 MELISSA NDEONDAVID 2023 1000 [facility] UMECLIDINIU M 62.5MCG/YARELY ANTEROL 25MCG/ACTUA T INH,ORAL,30 D INHALE 1 INHALATI ON BY MOUTH ONCE DAILY RESPIR ATORY (INHAL ATION) ACTIVE VALENTÍN SAHA 2022 [facility] [place] [facility] UPADACITINI B 15MG 24HR TAB,SA TAKE ONE TABLET BY MOUTH ONCE DAILY ORAL ACTIVE VALENTÍN SAHA 2022 [facility] Allergies, Adverse Reactions, Alerts Combined list of allergies from Department of Defense and Veterans Affairs facilities. It does not include entries that were removed or entered in error. Substance Category Reaction Severity Reaction type Status Date Reported Comments Source HEPARIN Propensity to adverse reactions to drug (finding) Cardiac arrest SEVERE active 3 [facility] [place] [facility] Immunizations Combined list of available immunizations from the Department of Defense and Veterans Affairs facilities. Immunization Series Date Given Administered By Site Reaction Lot Number CVX Code Drug Conductor Yard Status Comments Source INFLUENZA, UNSPECIFIED FORMULATION 2023 88 complet ed [facility] [place] PNEUMOCOCCAL CONJUGATE PCV20, POLYSACCHARID E [id number] CONJUGATE, ADJUVANT, PF 2023 ROXANNA VILLALBA E LEFT DELTO ID [id number] 216 complet ed [facility] [place] TDAP 2023 [place] VILLALBA LEFT DELTO ID [id number] 115 complet ed [facility] [place] [facility] INFLUENZA, UNSPECIFIED FORMULATION 2022 88 complet ed [facility] [place] COVID-19 (MODERNA), MRNA, LNP-S, BIVALENT, PF, 50 MCG/0.5 ML OR 25MCG/0.25 ML DOSE 1 2021 229 complet ed [facility] [place] [facility] INFLUENZA VACCINE, QUADRIVALENT, ADJUVANTED 2021 205 complet ed [facility] [place] [facility] COVID-19 (MODERNA), MRNA, LNP-S, PF, 100 MCG/0.5ML DOSE OR 50 MCG/0.25ML DOSE 3 2020 207 complet ed [facility] [place] [facility] INFLUENZA, UNSPECIFIED FORMULATION 2020 88 complet ed [facility] [place] [facility] COVID-19 (MODERNA), MRNA, LNP-S, PF, 100 MCG/0.5ML DOSE OR 50 MCG/0.25ML DOSE 2 2020 207 complet ed [facility] COVID-19 (MODERNA), MRNA, LNP-S, PF, 100 MCG/0.5ML DOSE OR 50 MCG/0.25ML DOSE 1 2020 207 complet ed [facility] [place] [facility] INFLUENZA, TRIVALENT, ADJUVANTED 2018 NONE 168 complet ed [facility] [place] PNEUMOCOCCAL CONJUGATE PCV 13 2017 133 complet ed [facility] PNEUMOCOCCAL POLYSACCHARID E [id number] 2015 33 complet ed [facility] Results Combined list of recent chemistry, [...] Oct 15, 2023 11:05 AM Reporting Lab: [address] [address] Performing Lab: [address] [address] [facility] [place] BASIC METABOLI C PANEL (fasting ) GLUCOSE [MASS/VOLU ME] IN SERUM OR PLASMA 95 mg/dL 65 - 100 10/14 Specimen Type: SERUM No comment entered. Ordering Provider: Madelaine SAHA Report Released Date/Time: Oct 15, 2023 11:05 AM Reporting Lab: [facility] [place] [facility] [address] [facility] [address] Performing Lab: [facility] [address] [address] [facility] [place] [facility] BASIC METABOLI C PANEL (fasting ) SODIUM [MOLES/VOL UME] IN SERUM OR PLASMA 141 mmol/L 135 - 145 10/14 Specimen Type: SERUM No comment entered. Ordering Provider: Madelaine SAHA Report Released Date/Time: Oct 15, 2023 11:05 AM Reporting Lab: [facility] [address] [address] Performing Lab: [facility] [address] [address] [facility] [place] [facility] BASIC METABOLI C PANEL (fasting ) POTASSIUM [MOLES/VOL UME] IN SERUM OR PLASMA 4.2 mmol/L 3.5 - 5.0 10/14 Specimen Type: SERUM No comment entered. Ordering Provider: Madelaine SAHA Report Released Date/Time: Oct 15, 2023 11:05 AM Reporting Lab: [facility] [place] [facility] [address] [facility] [address] Performing Lab: [facility] [place] [facility] [address] [facility] [address] [facility] [place] [facility] BASIC METABOLI C PANEL (fasting ) CHLORIDE [MOLES/VOL UME] IN SERUM OR PLASMA 106 mmol/L 100 - 110 10/14 Specimen Type: SERUM No comment entered. Ordering Provider: Madelaine SAHA Report Released Date/Time: Oct 15, 2023 11:05 AM Reporting Lab: [facility] [place] [address] [address] Performing Lab: [facility] [address] [address] [facility]ITALN [facility] BASIC METABOLI C PANEL (fasting ) CARBON DIOXIDE, TOTAL [MOLES/VOL UME] IN SERUM OR PLASMA 25 meq/L 20 - 30 10/14 Specimen Type: SERUM No comment entered. Ordering Provider: Madelaine SAHA Report Released Date/Time: Oct 15, 2023 11:05 AM Reporting Lab: [facility] [address] Performing Lab: [facility] [address] [facility] BASIC METABOLI C PANEL (fasting ) CREATININE [MASS/VOLU ME] IN SERUM OR PLASMA 1.37 mg/dL 0.50 - 1.40 10/14 Specimen Type: SERUM No comment entered. Ordering Provider: Madelaine SAHA Report Released Date/Time: Oct 15, 2023 11:05 AM Reporting Lab: [facility]ENTERUSE[address] [address] Performing Lab: [facility]ERN [facility]ENTERUSE[address] [address] [facility] BASIC METABOLI C PANEL (fasting ) GLOMERULAR FILTRATION RATE/1.73 SQ M.PREDICTE D [VOLUME RATE/AREA] IN SERUM, PLASMA OR BLOOD BY CREATININE -BASED FORMULA (CKD-EPI 2020) 53 mL/min 60 10/14 L Specimen Type: SERUM No comment entered. Ordering Provider: Madelaine SAHA Report Released Date/Time: Oct 15, 2023 11:05 AM Reporting Lab: [facility]ITALRST[facility]INCENT[facility]OSPITALTRN [facility]ENTERUSE[address] [address] Performing Lab: [facility] [address] [address] [facility] LIVER FUNCTION PROTEIN [MASS/VOLU ME] IN SERUM OR PLASMA 7.1 g/dL 6.0 - 8.3 10/14 Specimen Type: SERUM No comment entered. Ordering Provider: Madelaine SAHA Report Released Date/Time: Oct 15, 2023 11:05 AM Reporting Lab: [facility] [place] [facility] [address] [address] Performing Lab: [facility] [place] [facility] [address] [address] [facility] [place] [facility] LIVER FUNCTION ALBUMIN [MASS/VOLU ME] IN SERUM OR PLASMA 3.8 g/dL 3.5 - 5.0 10/14 Specimen Type: SERUM No comment entered. Ordering Provider: Madelaine SAHA Report Released Date/Time: Oct 15, 2023 11:05 AM Reporting Lab: [facility] [place] [facility] [address] [facility] [facility] [address] Performing Lab: [facility] [place] [address] [address] [facility] [place] [facility] LIVER FUNCTION ALKALINE PHOSPHATAS E [ENZYMATIC ACTIVITY/V OLUME] IN SERUM OR PLASMA 50 U/L 40 - 150 10/14 Specimen Type: SERUM No comment entered. Ordering Provider: Madelaine SAHA Report Released Date/Time: Oct 15, 2023 11:05 AM Reporting Lab: [facility] [place] [facility] [address] [facility] [facility] [address] Performing Lab: [facility] [place] [facility] [address] [facility] [address] [facility] [place] [facility] LIVER FUNCTION ASPARTATE AMINOTRANS FERASE [ENZYMATIC ACTIVITY/V OLUME] IN SERUM OR PLASMA 15 U/L 5 - 34 10/14 Specimen Type: SERUM No comment entered. Ordering Provider: Madelaine SAHA Report Released Date/Time: Oct 15, 2023 11:05 AM Reporting Lab: [facility] [place] [facility] [address] [facility] [facility] [address] Performing Lab: [facility] [place] [facility] [address] [facility] [facility] [address] [facility] [place] [facility] LIVER FUNCTION ALANINE AMINOTRANS FERASE [ENZYMATIC ACTIVITY/V OLUME] IN SERUM OR PLASMA 26 U/L 10/14 Specimen Type: SERUM No comment entered. Ordering Provider: Madelaine SAHA Report Released Date/Time: Oct 15, 2023 11:05 AM Reporting Lab: [facility] [place] [facility] [address] [facility] [facility] [address] Performing Lab: [facility] [place] [facility] [address] [facility] [facility] [address] [facility] [place] [facility] LIVER FUNCTION BILIRUBIN. TOTAL [MASS/VOLU ME] IN SERUM OR PLASMA 0.5 mg/dL 0.2 - 1.2 10/14 Specimen Type: SERUM No comment entered. Ordering Provider: Madelaine SAHA Report Released Date/Time: Oct 15, 2023 11:05 AM Reporting Lab: [facility] [place] [address] [address] Performing Lab: [facility] [place] [address] [address] [facility] [place] [facility] LIPID PANEL FASTING CHOLESTERO L [MASS/VOLU ME] IN SERUM OR PLASMA 179 mg/dL 10/14 Specimen Type: SERUM No comment entered. Ordering Provider: Madelaine SAHA Report Released Date/Time: Oct 15, 2023 11:05 AM Reporting Lab: [facility] [place] [facility] [address] [facility] [facility] [address] Performing Lab: [facility] [place] [facility] [address] [facility] [facility] [address] [facility] [place] [facility] LIPID PANEL FASTING TRIGLYCERI DE [MASS/VOLU ME] IN SERUM OR PLASMA 123 mg/dL 0 - 150 10/14 Specimen Type: SERUM No comment entered. Ordering Provider: Madelaine SAHA Report Released Date/Time: Oct 15, 2023 11:05 AM Reporting Lab: [facility] [place] [address] [address] Performing Lab: [facility] [place] [facility] [address] [facility] [facility] [address] [facility] [place] [facility] LIPID PANEL FASTING CHOLESTERO L IN LDL [MASS/VOLU ME] IN SERUM OR PLASMA BY CALCULAGIOO N 111 mg/dL 0 - 129 10/14 Specimen Type: SERUM No comment entered. Ordering Provider: Madelaine SAHA Report Released Date/Time: Oct 15, 2023 11:05 AM Reporting Lab: [facility] [address] [facility] [facility] [address] Performing Lab: [facility] [place] [facility] [address] [facility] [facility] [address] [facility] [place] [facility] LIPID PANEL FASTING CHOLESTERO L.TOTAL/CH OLESTEROL IN HDL [MASS RATIO] IN SERUM OR PLASMA 4.2 10/14 Specimen Type: SERUM No comment entered. Ordering Provider: Madelaine SAHA Report Released Date/Time: Oct 15, 2023 11:05 AM Reporting Lab: [facility] [place] [facility] [address] [facility] [facility] [address] Performing Lab: [facility] [place] [facility] [address] [facility] [facility] [address] [facility] [place] [facility] LIPID PANEL FASTING CHOLESTERO L IN HDL [MASS/VOLU ME] IN SERUM OR PLASMA 43 mg/dL 40 - 60 10/14 Specimen Type: SERUM No comment entered. Ordering Provider: Madelaine SAHA Report Released Date/Time: Oct 15, 2023 11:05 AM Reporting Lab: [facility] [place] [facility] [address] [facility] [facility] [address] Performing Lab: [facility] [place] [facility] [address] [facility] [facility] [address] [facility] [place] [facility] IRON & TIBC PANEL IRON BINDING CAPACITY [MASS/VOLU ME] IN SERUM OR PLASMA 338 ug/dL 204 - 475 10/14 Specimen Type: SERUM No comment entered. Ordering Provider: VANWAGNER,W ILLIAM F Report Released Date/Time: Oct 15, 2023 11:05 AM Reporting Lab: [facility] [place] [facility] [address] [facility] [facility] [address] Performing Lab: [facility] [place] [facility] [address] [facility] [facility] [address] [facility] [place] [facility] IRON & TIBC PANEL IRON [MASS/VOLU ME] IN SERUM OR PLASMA 51 ug/dL 40 - 160 10/14 Specimen Type: SERUM No comment entered. Ordering Provider: Madelaine SAHA Report Released Date/Time: Oct 15, 2023 11:05 AM Reporting Lab: [facility] [place] [facility] [address] [facility] [facility] [address] Performing Lab: [facility] [place] [facility] [address] [facility] [facility] [address] [facility] [place] [facility] IRON & TIBC PANEL IRON/IRON BINDING CAPACITY.T OTAL [MASS RATIO] IN SERUM OR PLASMA 15.1 20.0 - 50.0 10/14 L Specimen Type: SERUM No comment entered. Ordering Provider: Madelaine SAHA Report Released Date/Time: Oct 15, 2023 11:05 AM Reporting Lab: [facility] [place] [facility] [address] [facility] [facility] [address] Performing Lab: [facility] [place] [facility] [address] [facility] [address] [facility] [place] [facility] CBC AND DIFF (AUTO) LEUKOCYTES [#/VOLUME] IN BLOOD BY AUTOMATED COUNT 6.76 10*3/uL 4.50 - 11.00 10/14 Specimen Type: BLOOD No comment entered. Ordering Provider: Madelaine SAHA Report Released Date/Time: Oct 15, 2023 11:05 AM Reporting Lab: [facility] [place] [facility] [address] [facility] [facility] [address] Performing Lab: [facility] [place] [facility] [address] [facility] [facility] [address] [facility] [place] [facility] CBC AND DIFF (AUTO) ERYTHROCYT ES [#/VOLUME] IN BLOOD BY AUTOMATED COUNT 5.57 10*6/uL 4.23 - 5.66 10/14 Specimen Type: BLOOD No comment entered. Ordering Provider: Madelaine SAHA Report Released Date/Time: Oct 15, 2023 11:05 AM Reporting Lab: [facility] [place] [facility] [address] [facility] [facility] [address] Performing Lab: [facility] [place] [facility] [address] [facility] [address] [facility] [place] [facility] CBC AND DIFF (AUTO) HEMOGLOBIN [MASS/VOLU ME] IN BLOOD 14.9 g/dL 12.8 - 17 10/14 Specimen Type: BLOOD No comment entered. Ordering Provider: Madelaine SAHA Report Released Date/Time: Oct 15, 2023 11:05 AM Reporting Lab: [facility] [place] [address] [address] Performing Lab: [facility] [place] [facility] [address] [facility] [facility] [address] [facility] [place] [facility] CBC AND DIFF (AUTO) HEMATOCRIT [VOLUME FRACTION] OF BLOOD BY AUTOMATED COUNT 47.5 39.2 - 50.4 10/14 Specimen Type: BLOOD No comment entered. Ordering Provider: Madelaine SAHA Report Released Date/Time: Oct 15, 2023 11:05 AM Reporting Lab: [facility] [place] [address] [address] Performing Lab: [facility] [place] [facility] [address] [facility] [facility] [address] [facility] CBC AND DIFF (AUTO) MCV [ENTITIC VOLUME] BY AUTOMATED COUNT 85.3 fL 82 - 99 10/14 Specimen Type: BLOOD No comment entered. Ordering Provider: Madelaine SAHA Report Released Date/Time: Oct 15, 2023 11:05 AM Reporting Lab: [facility] [place] [address] [address] Performing Lab: [facility] [place] [facility] [address] [facility] [facility] [address] [facility] [place] [facility] CBC AND DIFF (AUTO) MCHC [MASS/VOLU ME] BY AUTOMATED COUNT 31.4 g/dL 30.8 - 35.1 10/14 Specimen Type: BLOOD No comment entered. Ordering Provider: Madelaine SAHA Report Released Date/Time: Oct 15, 2023 11:05 AM Reporting Lab: [facility] [place] [facility] [address] [facility] [facility] [address] Performing Lab: [facility] [place] [facility] [address] [facility] [facility] [address] [facility] [place] [facility] CBC AND DIFF (AUTO) PLATELETS [#/VOLUME] IN BLOOD BY AUTOMATED COUNT 243 10*3/uL 140 - 360 10/14 Specimen Type: BLOOD No comment entered. Ordering Provider: Madelaine SAHA Report Released Date/Time: Oct 15, 2023 11:05 AM Reporting Lab: [facility] [place] [facility] [address] [facility] [address] Performing Lab: [facility] [place] [facility] [address] [address] [facility] CBC AND DIFF (AUTO) ERYTHROCYT E DISTRIBUTI ON WIDTH [RATIO] BY AUTOMATED COUNT 15.0 12.0 - 16.0 10/14 Specimen Type: BLOOD No comment entered. Ordering Provider: Madelaine SAHA Report Released Date/Time: Oct 15, 2023 11:05 AM Reporting Lab: [facility] [place] [facility] [address] [facility] [address] Performing Lab: [facility] [place] [facility] [address] [address] [facility] CBC AND DIFF (AUTO) MONOCYTES [#/VOLUME] IN BLOOD BY AUTOMATED COUNT 0.49 10*3/uL 0.30 - 1.10 10/14 Specimen Type: BLOOD No comment entered. Ordering Provider: Madelaine SAHA Report Released Date/Time: Oct 15, 2023 11:05 AM Reporting Lab: [facility] [address] [facility] [address] Performing Lab: [facility] [address] [address] [facility] CBC AND DIFF (AUTO) MCH [ENTITIC MASS] BY AUTOMATED COUNT 26.8 pg 26.2 - 32.6 10/14 Specimen Type: BLOOD No comment entered. Ordering Provider: Madelaine SAHA Report Released Date/Time: Oct 15, 2023 11:05 AM Reporting Lab: [facility] [address] [address] Performing Lab: [facility] [address] [facility] [address] [facility] CBC AND DIFF (AUTO) NEUTROPHIL S/100 LEUKOCYTES IN BLOOD BY AUTOMATED COUNT 67.8 43.7 - 75.8 10/14 Specimen Type: BLOOD No comment entered. Ordering Provider: Madelaine SAHA Report Released Date/Time: Oct 15, 2023 11:05 AM Reporting Lab: [facility] [address] [facility] [address] Performing Lab: [facility] [address] [facility] [facility] [address] [facility] CBC AND DIFF (AUTO) LYMPHOCYTE S/100 LEUKOCYTES IN BLOOD BY AUTOMATED COUNT 21.9 14.0 - 42.3 10/14 Specimen Type: BLOOD No comment entered. Ordering Provider: Madelaine SAHA Report Released Date/Time: Oct 15, 2023 11:05 AM Reporting Lab: [facility] [address] [facility] [address] Performing Lab: [facility] [address] [facility] [address] [facility] CBC AND DIFF (AUTO) MONOCYTES/ 100 LEUKOCYTES IN BLOOD BY AUTOMATED COUNT 7.2 5.1 - 13.7 10/14 Specimen Type: BLOOD No comment entered. Ordering Provider: Madelaine SAHA Report Released Date/Time: Oct 15, 2023 11:05 AM Reporting Lab: [facility] [address] [facility] [facility] [address] Performing Lab: [facility] [facility] [address] [facility] [address] [facility] CBC AND DIFF (AUTO) EOSINOPHIL S/100 LEUKOCYTES IN BLOOD BY AUTOMATED COUNT 2.1 0.4 - 6.8 10/14 Specimen Type: BLOOD No comment entered. Ordering Provider: Madelaine SAHA Report Released Date/Time: Oct 15, 2023 11:05 AM Reporting Lab: [facility] [address] [address] Performing Lab: [facility] [address] [address] [facility] CBC AND DIFF (AUTO) BASOPHILS/ 100 LEUKOCYTES IN BLOOD BY AUTOMATED COUNT 0.6 0.1 - 2.0 10/14 Specimen Type: BLOOD No comment entered. Ordering Provider: Madelaine SAHA Report Released Date/Time: Oct 15, 2023 11:05 AM Reporting Lab: [facility] [address] [address] Performing Lab: [facility] [address] [address] [facility] CBC AND DIFF (AUTO) NEUTROPHIL S [#/VOLUME] IN BLOOD BY AUTOMATED COUNT 4.58 10*3/uL 2.20 - 7.60 10/14 Specimen Type: BLOOD No comment entered. Ordering Provider: Madelaine SAHA Report Released Date/Time: Oct 15, 2023 11:05 AM Reporting Lab: [facility] [address] [address] Performing Lab: [facility] [address] [facility] [address] [facility] CBC AND DIFF (AUTO) LYMPHOCYTE S [#/VOLUME] IN BLOOD BY AUTOMATED COUNT 1.48 10*3/uL 1.00 - 3.20 10/14 Specimen Type: BLOOD No comment entered. Ordering Provider: Madelaine SAHA Report Released Date/Time: Oct 15, 2023 11:05 AM Reporting Lab: [facility] [place] [facility] [address] [facility] [address] Performing Lab: [facility] [place] [address] [address] [facility] [facility] CBC AND DIFF (AUTO) EOSINOPHIL S [#/VOLUME] IN BLOOD BY AUTOMATED COUNT 0.14 10*3/uL 0.03 - 0.44 10/14 Specimen Type: BLOOD No comment entered. Ordering Provider: Madelaine SAHA Report Released Date/Time: Oct 15, 2023 11:05 AM Reporting Lab: [facility] [address] [address] Performing Lab: [facility] [place] [address] [address] [facility] [facility] CBC AND DIFF (AUTO) BASOPHILS [#/VOLUME] IN BLOOD BY AUTOMATED COUNT 0.04 10*3/uL 0.01 - 0.13 10/14 Specimen Type: BLOOD No comment entered. Ordering Provider: Madelaine SAHA Report Released Date/Time: Oct 15, 2023 11:05 AM Reporting Lab: [facility] [address] [address] Performing Lab: [facility] [place] [address] [address] [facility] [facility] CBC AND DIFF (AUTO) IMMATURE GRANULOCYT ES/100 LEUKOCYTES IN BLOOD BY AUTOMATED COUNT 0.4 0.0 - 0.7 10/14 Specimen Type: BLOOD No comment entered. Ordering Provider: Madelaine SAHA Report Released Date/Time: Oct 15, 2023 11:05 AM Reporting Lab: [facility] [address] [facility] [address] Performing Lab: [facility] [address] [facility] [address] [facility] CBC AND DIFF (AUTO) IMMATURE GRANULOCYT ES [#/VOLUME] IN BLOOD 0.03 10*3/uL 0.00 - 0.06 10/14 Specimen Type: BLOOD No comment entered. Ordering Provider: Madelaine SAHA Report Released Date/Time: Oct 15, 2023 11:05 AM Reporting Lab: [facility] [address] [facility] [address] Performing Lab: [facility] [facility] [address] [facility] [facility] [address] [facility] CBC LEUKOCYTES [#/VOLUME] IN BLOOD BY AUTOMATED COUNT 6.94 10*3/uL 4.50 - 11.00 05/24 Specimen Type: BLOOD No comment entered. Ordering Provider: Madelaine SAHA Report Released Date/Time: Apr 14, 2023 08:29 AM Reporting Lab: [facility] [address] [facility] [facility] [address] Performing Lab: [facility] [facility] [address] [facility] [address] [facility] CBC ERYTHROCYT ES [#/VOLUME] IN BLOOD BY AUTOMATED COUNT 4.59 10*6/uL 4.23 - 5.66 05/24 Specimen Type: BLOOD No comment entered. Ordering Provider: Madelaine SAHA Report Released Date/Time: Apr 14, 2023 08:29 AM Reporting Lab: [facility] [address] [facility] [address] Performing Lab: [facility] [address] [facility] [address] [facility] CBC HEMOGLOBIN [MASS/VOLU ME] IN BLOOD 12.9 g/dL 12.8 - 17 05/24 Specimen Type: BLOOD No comment entered. Ordering Provider: Madelaine SAHA Report Released Date/Time: Apr 14, 2023 08:29 AM Reporting Lab: [facility] [place] [facility] [address] [facility] [address] Performing Lab: [facility] [place] [facility] [address] [facility] [address] [facility] CBC HEMATOCRIT [VOLUME FRACTION] OF BLOOD BY AUTOMATED COUNT 40.6 39.2 - 50.4 05/24 Specimen Type: BLOOD No comment entered. Ordering Provider: Madelaine SAHA Report Released Date/Time: Apr 14, 2023 08:29 AM Reporting Lab: [facility] [place] [facility] [address] [facility] [facility] [address] Performing Lab: [facility] [place] [facility] [address] [facility] [address] [facility] CBC MCV [ENTITIC VOLUME] BY AUTOMATED COUNT 88.5 fL 82 - 99 05/24 Specimen Type: BLOOD No comment entered. Ordering Provider: Madelaine SAHA Report Released Date/Time: Apr 14, 2023 08:29 AM Reporting Lab: [facility] [facility] [address] [facility] [address] Performing Lab: [facility] [place] [facility] [address] [facility] [facility] [address] [facility] CBC MCHC [MASS/VOLU ME] BY AUTOMATED COUNT 31.8 g/dL 30.8 - 35.1 05/24 Specimen Type: BLOOD No comment entered. Ordering Provider: Madelaine SAHA Report Released Date/Time: Apr 14, 2023 08:29 AM Reporting Lab: [facility] [facility] [address] [facility] [address] Performing Lab: [facility] [place] [facility] [address] [facility] [facility] [address] [facility] CBC PLATELETS [#/VOLUME] IN BLOOD BY AUTOMATED COUNT 309 10*3/uL 140 - 360 05/24 Specimen Type: BLOOD No comment entered. Ordering Provider: Madelaine SAHA Report Released Date/Time: Apr 14, 2023 08:29 AM Reporting Lab: [facility] [place] [facility] [address] [facility] [address] Performing Lab: [facility] [place] [facility] [address] [facility] [facility] [address] [facility] [place] [facility] CBC ERYTHROCYT E DISTRIBUTI ON WIDTH [RATIO] BY AUTOMATED COUNT 14.0 12.0 - 16.0 05/24 Specimen Type: BLOOD No comment entered. Ordering Provider: Madelaine SAHA Report Released Date/Time: Apr 14, 2023 08:29 AM Reporting Lab: [facility] [place] [facility] [address] [facility] [address] Performing Lab: [facility] [place] [facility] [address] [facility] [facility] [address] [facility] [place] [facility] CBC MCH [ENTITIC MASS] BY AUTOMATED COUNT 28.1 pg 26.2 - 32.6 05/24 Specimen Type: BLOOD No comment entered. Ordering Provider: Madelaine SAHA Report Released Date/Time: Apr 14, 2023 08:29 AM Reporting Lab: [facility] [place] [facility] [address] [facility] [facility] [address] Performing Lab: [facility] [place] [facility] [address] [facility] [facility] [address] [facility] [place] [facility] URINALYS IS COLOR OF URINE Light-Ye llow 05/24 Specimen Type: URINE Comment: If Glucose = >500 and Ketones are positive, please alert the Physician. Ordering Provider: Madelaine SAHA Report Released Date/Time: Apr 26, 2023 04:38 PM Reporting Lab: [facility] [place] [facility] [address] [facility] [facility] [facility] [address] Performing Lab: [facility] [place] [facility] [address] [facility] [facility] [address] [facility] [place] [facility] URINALYS IS APPEARANCE OF URINE Clear 05/24 Specimen Type: URINE Comment: If Glucose = >500 and Ketones are positive, please alert the Physician. Ordering Provider: Madelaine SAHA Report Released Date/Time: Apr 26, 2023 04:38 PM Reporting Lab: [facility] [place] [facility] [address] [facility] [address] Performing Lab: [facility] [place] [facility] [address] [facility] [facility] [facility] [address] [facility] [place] [facility] URINALYS IS GLUCOSE [MASS/VOLU ME] IN URINE NEGATIVE mg/dL 05/24 Specimen Type: URINE Comment: If Glucose = >500 and Ketones are positive, please alert the Physician. Ordering Provider: Madelaine SAHA Report Released Date/Time: Apr 26, 2023 04:38 PM Reporting Lab: [facility] [place] [facility] [address] [facility] [address] Performing Lab: [facility] [place] [facility] [address] [facility] [facility] [address] [facility] [place] [facility] URINALYS IS KETONES [MASS/VOLU ME] IN URINE BY TEST STRIP NEGATIVE mg/dL 05/24 Specimen Type: URINE Comment: If Glucose = >500 and Ketones are positive, please alert the Physician. Ordering Provider: Madelaine SAHA Report Released Date/Time: Apr 26, 2023 04:38 PM Reporting Lab: [facility] [place] [facility] [address] [facility] [address] Performing Lab: [facility] [place] [facility] [address] [facility] [facility] [address] [facility] [place] [facility] URINALYS IS ERYTHROCYT ES [PRESENCE] IN URINE SEDIMENT BY LIGHT MICROSCOPY NEGATIVE mg/dL 05/24 Specimen Type: URINE Comment: If Glucose = >500 and Ketones are positive, please alert the Physician. Ordering Provider: Madelaine SAHA Report Released Date/Time: Apr 26, 2023 04:38 PM Reporting Lab: [facility] [address] [facility] [address] Performing Lab: [facility] [address] [facility] [address] [facility] URINALYS IS PROTEIN [MASS/VOLU ME] IN URINE BY TEST STRIP NEGATIVE mg/dL 05/24 Specimen Type: URINE Comment: If Glucose = >500 and Ketones are positive, please alert the Physician. Ordering Provider: Madelaine SAHA Report Released Date/Time: Apr 26, 2023 04:38 PM Reporting Lab: [facility] [address] [facility] [facility] [address] Performing Lab: [facility] [place] [facility] [address] [facility] [address] [facility] URINALYS IS NITRITE [PRESENCE] IN URINE NEGATIVE mg/dL 05/24 Specimen Type: URINE Comment: If Glucose = >500 and Ketones are positive, please alert the Physician. Ordering Provider: Madelaine SAHA Report Released Date/Time: Apr 26, 2023 04:38 PM Reporting Lab: [facility] [address] [facility] [address] Performing Lab: [facility] [address] [facility] [address] [facility] [place] [facility] URINALYS IS BILIRUBIN. TOTAL [PRESENCE] IN URINE NEGATIVE mg/dL 05/24 Specimen Type: URINE Comment: If Glucose = >500 and Ketones are positive, please alert the Physician. Ordering Provider: Madelaine SAHA Report Released Date/Time: Apr 26, 2023 04:38 PM Reporting Lab: [facility] [place] [facility] [address] [facility] [facility] [address] Performing Lab: [facility] [address] [facility] [address] [facility] URINALYS IS SPECIFIC GRAVITY OF URINE BY REFRACTOME TRY 1.017 1.016 - 1.022 05/24 Specimen Type: URINE Comment: If Glucose = >500 and Ketones are positive, please alert the Physician. Ordering Provider: Madelaine SAHA Report Released Date/Time: Apr 26, 2023 04:38 PM Reporting Lab: [facility] [address] [facility] [facility] [address] Performing Lab: [facility] [address] [facility] [facility] [address] [facility] URINALYS IS PH OF URINE BY TEST STRIP 6.0 5.0 - 9.0 05/24 Specimen Type: URINE Comment: If Glucose = >500 and Ketones are positive, please alert the Physician. Ordering Provider: Madelaine SAHA Report Released Date/Time: Apr 26, 2023 04:38 PM Reporting Lab: [facility] [address] [facility] [facility] [facility] [address] Performing Lab: [facility] [address] [facility] [facility] [facility] [address] [facility] URINALYS IS UROBILINOG EN [MASS/VOLU ME] IN URINE BY TEST STRIP <2.0mg/d L <2.0 - 2.0 05/24 Specimen Type: URINE Comment: If Glucose = >500 and Ketones are positive, please alert the Physician. Ordering Provider: Madelaine SAHA Report Released Date/Time: Apr 26, 2023 04:38 PM Reporting Lab: [facility] [address] [facility] [facility] [facility] [address] Performing Lab: [facility] [address] [facility] URINALYS IS LEUKOCYTE ESTERASE [PRESENCE] IN URINE BY TEST STRIP NEGATIVE 05/24 Specimen Type: URINE Comment: If Glucose = >500 and Ketones are positive, please alert the Physician. Ordering Provider: Madelaine SAHA Report Released Date/Time: Apr 26, 2023 04:38 PM Reporting Lab: [facility] [place] [facility] [address] [facility] [address] Performing Lab: [facility] [address] [facility] [facility] [address] [facility] MICROALB UMIN CREATINI NE RATIO PANEL MICROALBUM IN/CREATIN INE [MASS RATIO] IN URINE 21.1 mg/g 0 - 29.9 05/24 Specimen Type: URINE No comment entered. Ordering Provider: Madelaine SAHA Report Released Date/Time: Apr 26, 2023 04:38 PM Reporting Lab: [facility] [place] [facility] [address] [facility] [address] Performing Lab: [facility] [place] [facility] [address] [facility] [address] [facility] [place] [facility] MICROALB UMIN CREATINI NE RATIO PANEL MICROALBUM IN [MASS/VOLU ME] IN URINE 1.9 mg/dL 05/24 Specimen Type: URINE No comment entered. Ordering Provider: Madelaine SAHA Report Released Date/Time: Apr 26, 2023 04:38 PM Reporting Lab: [facility] [place] [facility] [address] [facility] [address] Performing Lab: [facility] [place] [facility] [address] [facility] [facility] [address] [facility] [facility] MICROALB UMIN CREATINI NE RATIO PANEL CREATININE [MASS/VOLU ME] IN URINE 89.96 mg/dL 05/24 Specimen Type: URINE No comment entered. Ordering Provider: Madelaine SAHA Report Released Date/Time: Apr 26, 2023 04:38 PM Reporting Lab: [facility] [place] [facility] [address] [facility] [address] Performing Lab: [facility] [place] [facility] [address] [facility] [address] [facility] [facility] IRON & TIBC PANEL IRON BINDING CAPACITY [MASS/VOLU ME] IN SERUM OR PLASMA 347 ug/dL 204 - 475 05/24 Specimen Type: SERUM No comment entered. Ordering Provider: Madelaine SAHA Report Released Date/Time: Apr 26, 2023 04:38 PM Reporting Lab: [facility] [place] [facility] [address] [facility] [address] Performing Lab: [facility] [place] [facility] [address] [facility] [address] [facility] [place] [facility] IRON & TIBC PANEL IRON [MASS/VOLU ME] IN SERUM OR PLASMA 41 ug/dL 40 - 160 05/24 Specimen Type: SERUM No comment entered. Ordering Provider: Madelaine SAHA Report Released Date/Time: Apr 26, 2023 04:38 PM Reporting Lab: [facility] [place] [address] [address] Performing Lab: [facility] [place] [address] [address] [facility] [place] [facility] IRON & TIBC PANEL IRON/IRON BINDING CAPACITY.T OTAL [MASS RATIO] IN SERUM OR PLASMA 11.8 20.0 - 50.0 05/24 L Specimen Type: SERUM No comment entered. Ordering Provider: Madelaine SAHA Report Released Date/Time: Apr 26, 2023 04:38 PM Reporting Lab: [facility] [place] [facility] [address] [facility] [address] Performing Lab: [facility] [place] [address] [address] [facility] [place] [facility] BASIC METABOLI C PANEL (fasting ) UREA NITROGEN [MASS/VOLU ME] IN SERUM OR PLASMA 17 mg/dL 7 - 25 05/24 Specimen Type: SERUM No comment entered. Ordering Provider: Madelaine SAHA Report Released Date/Time: Apr 26, 2023 04:38 PM Reporting Lab: [facility] [place] [address] [place] [address] Performing Lab: [facility] [place] [facility] [address] [facility] [address] [facility] BASIC METABOLI C PANEL (fasting ) GLUCOSE [MASS/VOLU ME] IN SERUM OR PLASMA 95 mg/dL 65 - 100 05/24 Specimen Type: SERUM No comment entered. Ordering Provider: Madelaine SAHA Report Released Date/Time: Apr 26, 2023 04:38 PM Reporting Lab: [facility] [place] [facility] [address] [facility] [address] Performing Lab: [facility]USE[address] [address] [facility] BASIC METABOLI C PANEL (fasting ) SODIUM [MOLES/VOL UME] IN SERUM OR PLASMA 142 mmol/L 135 - 145 05/24 Specimen Type: SERUM No comment entered. Ordering Provider: Madelaine SAHA Report Released Date/Time: Apr 26, 2023 04:38 PM Reporting Lab: [facility]ITALRST[facility]INCENT[facility]PITALTRN [facility]ENTERUSE[address] [address] Performing Lab: [facility] [address] [facility] [facility] [address] [facility] TRN [facility] BASIC METABOLI C PANEL (fasting ) POTASSIUM [MOLES/VOL UME] IN SERUM OR PLASMA 4.8 mmol/L 3.5 - 5.0 05/24 Specimen Type: SERUM No comment entered. Ordering Provider: Madelaine SAHA Report Released Date/Time: Apr 26, 2023 04:38 PM Reporting Lab: [facility] [place] [facility] [address] [facility] [address] Performing Lab: [facility]USE[facility] [address] [facility] [address] [facility]N [facility] BASIC METABOLI C PANEL (fasting ) CHLORIDE [MOLES/VOL UME] IN SERUM OR PLASMA 107 mmol/L 100 - 110 05/24 Specimen Type: SERUM No comment entered. Ordering Provider: Madelaine SAHA Report Released Date/Time: Apr 26, 2023 04:38 PM Reporting Lab: [facility] [address] [address] Performing Lab: [facility] [address] [address] [facility] BASIC METABOLI C PANEL (fasting ) CARBON DIOXIDE, TOTAL [MOLES/VOL UME] IN SERUM OR PLASMA 24 meq/L 20 - 30 05/24 Specimen Type: SERUM No comment entered. Ordering Provider: Madelaine SAHA Report Released Date/Time: Apr 26, 2023 04:38 PM Reporting Lab: [facility] [address] [address] Performing Lab: [facility] TRN [address] [address] [facility] BASIC METABOLI C PANEL (fasting ) CREATININE [MASS/VOLU ME] IN SERUM OR PLASMA 1.49 mg/dL 0.50 - 1.40 05/24 H Specimen Type: SERUM No comment entered. Ordering Provider: Madelaine SAHA Report Released Date/Time: Apr 26, 2023 04:38 PM Reporting Lab: [facility] [address] [address] Performing Lab: [facility]N [address] [address] [facility] BASIC METABOLI C PANEL (fasting ) GLOMERULAR FILTRATION RATE/1.73 SQ M.PREDICTE D [VOLUME RATE/AREA] IN SERUM, PLASMA OR BLOOD BY CREATININE -BASED FORMULA (CKD-EPI 2020) 48 mL/min 60 05/24 L Specimen Type: SERUM No comment entered. Ordering Provider: Madelaine SAHA Report Released Date/Time: Apr 26, 2023 04:38 PM Reporting Lab: [facility] [address] [address] Performing Lab: [facility] [place] [facility] [address] [facility] [address] [facility] [place] [facility] Vital Signs Combined list of inpatient and [...] 94 024 12:55:36 [facility] [place] [facility] PULSE OXIMETRY 90 10/22/2023 12:55:36 [facility] WEIGHT 196 10/22/2023 12:55:36 [facility] BMI 32kg/m2 10/22/2023 12:55:36 [facility] PAIN 0 10/22/2023 12:55:36 [facility] TEMPERATURE 98.1 10/22/2023 12:55:36 [facility] PULSE 88 10/22/2023 12:55:36 [facility] RESPIRATION 16 10/22/2023 12:55:36 [facility] Encounters Combined list of: 1) Encounters from [facility] facilities going back up to thelast 18 months. 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<b r/> VALENTÍN SAHA 01/22 [facility] Outpatient Encounter [id number] 01/22 [facility]counter [id number] 01/25 [facility]counter [id number] 01/25 [facility]counter [id number] 01/25 [facility] WHEELCHAIR MNGMENT TRAINING [id number] Diagnos is: ICD-10- CM R26.89 Other abnorma lities of gait and mobilit y
JOHN MCFADDEN ICA L 02/22 [facility] Out[facility] Encounter [id number] 04/08 [facility] WHEELCHA[facility]NGMENT TRAINING [id number] Diagnos is: ICD-10- CM R26.89 Other abnorma lities of gait and mobilit y
JOHN MCFADDEN ICA L 04/12 [facility] OFFICE O/P EST LOW 20-29 MIN [id number] Diagnos is: ICD-10- CM M35.00 Sjogren syndrom e, unspeci fied
VALENTÍN SAHA 04/23 [facility] Outpatient Encounter [id number] ALEXUS ZARAGOZA 04/24 [facility] Outpatient Encounter [id number] Diagnos is: ICD-10- CM Z04.89 Encount er for examina tion and observa tion for oth reasons
ALEXUS ZARAGOZA 04/24 [place] [facility] Outpatient [facility]counter [id number] 04/27 [facility] TTE W/DOPPLER COMPLETE [id number] Diagnos is: ICD-10- CM I25.10 Athscl heart disease of [place] coronar y artery w/o ang pctrs<b r/> KIRT MAC 05/03 [facility] [facility] CARDIOVERS ION ELECTRIC INT [id number] Diagnos is: ICD-10- CM Z13.9 Encount er for screeni ng, unspeci fied
CHANI PISANO 05/03 [facility] Outpatient Encounter [id number] 07/23 [facility] Outpatient Encounter [id number] 08/10 [facility] Q[facility]P OL DIG ASSMT&MGMT 5-10 [id number] Diagnos is: ICD-10- CM S91.009 A Unspeci fied open wound, unspeci fied ankle, initial encount er
KATY THORPE 08/16 [facility] Encounter [id number] Diagnos is: ICD-10- CM F43.10 Post-tr aumatic stress disorde r, unspeci fied
FEARINGPARVEZ A 09/20 [facility] Encounter [id number] FEARING,PARVEZ Lopez 09/20 [facility] En[facility] [id number] 10/04 [facility] OFFICE O/P EST LOW 20 MIN [id number] Diagnos is: ICD-10- CM J44.9 Chronic obstruc tive pulmona ry disease , unspeci fied
MARIA AVALENTÍN 10/21 [facility] OFF/OP EST MAY X REQ PHY/QHP [id number] Diagnos is: ICD-10- CM I10 Essenti al (primar y) hyperte nsion<b r/> Dionna YANEZ 10/24 [facility] COMPRE OPH EXAM NEW PT 1/> [id number] Diagnos is: ICD-10- CM H40.013 Open angle with borderl ine finding s, low risk, bilater al
PARVEZ LEMUS 10/24 [facility] ECHO EXAM OF EYE THICKNESS [id number] Diagnos is: ICD-10- CM H40.013 Open angle with borderl ine finding s, low risk, bilater al
PARVEZ LEMUS 10/24 [facility] FIT SPECTACLES MULTIFOCAL [id number] Diagnos is: ICD-10- CM Z46.0 Encount er for fit/adj st of spectac les and contact lenses< br/> PARVEZ LEMUS 10/25 [facility] Out[facility] Encounter [id number] 10/25 [facility]counter [id number] 11/23 [facility] Encounter [id number] 12/07 [facility]counter [id number] 12/09 [facility] Encounter [id number] 12/09 [facility] Encounter [id number] 01/23 [facility] QNHP OL DIG ASSMT&MGMT 5-10 [id number] Diagnos is: ICD-10- CM Z12.2 Encntr screen for maligna nt neoplas m of respira tory organs< br/> PUCHALSKI, MIRELA L 01/23 [facility] Encounter [id number] 01/31 [facility] Outpatient Encounter [id number] 05/11 [facility] Outpatient Encounter [id number] 05/16 [facility] QNHP OL DIG ASSMT&MGMT 5-10 [id number] Diagnos is: ICD-10- CM R52 Pain, unspeci fied
LAURA LEDESMA 05/26 [facility] Outpatient Encounter [id number] 06/01 [facility] Social History Combined list of available smoking, tobacco, and other social history from Department of Defense and Veterans Affairs facilities. Social History Type Response Date Comment Sour e Tobacco smoking status NHIS VA-TOBACCO USE FORMER CIGARETTES 06/01/2024 [facility] [facility] History of tobacco use DC-TOBACCO NEVER USED OTHER TYPE 06/01/2024 [facility] [place] [facility] History of tobacco use VA-TOBACCO FORMER USER 01/22/2023 [facility] [place] [facility] History of tobacco use VA-TOBACCO FORMER USER 02/17/2022 [facility] History of tobacco use VA-TOBACCO QUIT 1 TO < 5 YRS 06/22/2019 [facility] EV[facility] Plan of Care List of future care activities from Department of Veterans Affairs facilities. Additional future care activities may be listed in the Assessment and Plan section. Date/Time Care Activity Care Activity Detail Facili ty 09/07/2024 AMBULATORY - MEDICINE AMBULATORY - [facility]ICI [facility] 10/20/2024 AMBULATORY - MEDICINE AMBULATORY - MEDICI [facility] Advance Directives List of completed, amended, or rescinded Advance Directives on record at Department of [facility] facilities. An actual copy of the Directive is not included. Date Advance Directive Provider Source 10/26/2023 ADVANCE DIRECTIVE MARGARITA KRAFT [facility]
== END 2024-07-24 11:43 | disposition home or self-care (01) ==
PROVIDERS: PCP Internal Medicine; Visit Provider Student in an Organized Health Care Education/Training Program
DX: L88 Pyoderma gangrenosum (principal); M25.461 Effusion, right knee; M06.09 Rheumatoid arthritis without rheumatoid factor, multiple sites
CPT/HCPCS: 20610; 99214

== ENCOUNTER 2024-07-24 10:34 | Outpatient (REF) | payer MEDICARE, SELFPAY ==
[2024-07-24 12:59] LABS: MN% 7.8 %; PMN% 92.2 %
[2024-07-24 13:00] LABS: WBC Synovial Fluid 16.916 X10*3/uL
[2024-07-24 13:02] LABS: RBC Synovial Fluid 0.016 X10*6/uL
[2024-07-24 13:35] LABS: Source Synovial Fluid RIGHT KNEE
[2024-07-24 13:36] LABS: BF Shift QC OK YES; Lymphocytes Synovial Fluid 2 %; Monocytes Synovial Fluid 1 %; Neutrophils Synovial Fluid 97 %
--- OUTSIDE RECORDS SUMMARY | 2024-07-24 13:48 | XMS_ITS | Continuity of Care Document ---
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 Role Phone [facility] Unavailable Unavailable Problems Combined list of problems [...] COPD - Chronic Obstructive Pulmonary Disease (SCT [id number]) Active Condition [facility] Deep venous thrombosis of upper extremity Active Condition Feb 18, 2022 Entered By: MESFIN SAHA Comment: Left [facility] Depression (SCT [id number]) Active Condition [facility] Exposure to potentially hazardous substance Active Condition Oct 07, 2023 Entered By: COL BHARATHI ADAME Comment: ILIANA Screening Snomed Code connected 01/22/23 [facility] H/O: rheumatoid arthritis Active Condition [facility] Hypertension Active [facility] Moderate protein-calorie malnutrition (weight for age 60-74 percent of standard) Active Condition [facility] PE - Pulmonary Embolism (SCT [id number]) Active Condition [facility] Pyoderma gangrenosum Active Condition [facility] Rheumatoid arthritis Active Condition [facility] Sjogren syndrome Active Condition [facility] Venous ulcer Active Condition [facility] Diagnosis: ICD-10-CM R52 Pain, unspecified Active Diagnosis [facility] Diagnosis: ICD-10-CM Z12.2 Encntr screen for malignant neoplasm of respiratory organs Active Diagnosis [facility] [place] [facility] Diagnosis: ICD-10-CM Z46.0 Encounter for fit/adjst of spectacles and contact lenses [facility] Diagnosis: ICD-10-CM H40.013 Open angle with borderline findings, low risk, bilateral Active Diagnosis [facility] Diagnosis: ICD-10-CM I10 Essential (primary) hypertension [facility] Diagnosis: ICD-10-CM J44.9 Chronic obstructive pulmonary disease, unspecified [facility] [place] [facility] Diagnosis: ICD-10-CM F43.10 Post-traumatic stress disorder, unspecified 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 [place] [facility] Diagnosis: ICD-10-CM Z04.89 Encounter for examination and observation for oth reasons Active Diagnosis [facility] Diagnosis: ICD-10-CM M35.00 Sjogren syndrome, unspecified Active [facility] [place] [facility] Diagnosis: ICD-10-CM R26.89 Other abnormalities of gait and mobility Active [facility] [place] [facility] Diagnosis: ICD-10-CM E44.0 Moderate protein-calorie malnutrition Active Diagnosis [facility] Medications Combined list of outpatient medications [...] MOUTH PRN ORAL ACTIVE VALENTÍN SAHA 2022 [facility] ALBUTEROL 90MCG/ACTUA T (CFC-F) INHL,ORAL,8 .5GM DOSE COUNTER INHALE 2 PUFFS BY MOUTH EVERY 6 HOURS NEEDED RESPIR ATORY (INHAL ATION) ACTIVE VALENTÍN SAHA 2022 [facility] [place] CALCIUM CARBONATE TAB TAKE ACTIVE [facility] [place] CHOLECALCIF MELISSA (VIT D3) TAB TAKE EVERY DAY ACTIVE [facility] [place] DULOXETINE HCL 20MG CAP,EC TAKE 1 CAPSULE BY MOUTH AT BEDTIME ORAL ACTIVE VALENTÍN SAHA 2022 [facility] [facility] ETANERCEPT 50MG INJ,SOLN INJECT UNDER THE SKIN SUBCUT ANEOUS ACTIVE [facility] [place] FAMOTIDINE TAB TAKE ACTIVE [facility] [place] FLUTICASONE PROPIONATE 50MCG/SPRAY SOLN,NASAL, 16GM INSTILL 2 SPRAYS INTO EACH NOSTRIL ONCE DAILY NASAL ACTIVE VALENTÍN SAHA 2022 [facility] [place] [facility] GABAPENTIN 300MG CAP TAKE 2 CAPSULES BY MOUTH EVERY EVENING AND TAKE 4 CAPSULES BY MOUTH AT BEDTIME ORAL ACTIVE VALENTÍN SAHA 2022 [facility] HYDROCHLORO THIAZIDE TAB TAKE EVERY DAY ACTIVE [facility] [place] HYDROMORPHO NE HCL 2MG TAB TAKE ONE TABLET BY MOUTH THREE TIMES DAILY NEEDED ORAL ACTIVE VALENTÍN SAHA 2022 [facility] [place] [facility] [facility] IBUPROFEN TAB TAKE PRN ACTIVE [facility] [place] METOPROLOL TARTRATE 25MG TAB TAKE ONE TABLET BY MOUTH TWICE DAILY ORAL ACTIVE VALENTÍN SAHA 2022 [facility] [place] MULTIVITAMI N & MINERALS TAB TAKE EVERY DAY ACTIVE [facility] [place] NALOXONE HCL 4MG/SPRAY SOLN,SPRAY, NASAL [...] DAILY INTRAV ENOUS DISCONT INUED (EDIT) 04/28/2024 [id number] JEAN LINDQUITSI 2023 30 [facility] SODIUM CHLORIDE 0.9% (PF) INJ,SYRINGE ,10ML INJECT 1 SYRINGE IV PUSH DIRECTED BY PROVIDER INTRAV ENOUS DISCONT INUED (EDIT) 02/18/2024 [id number] JEAN LINDQUISTI 2023 30 [facility] SODIUM CHLORIDE 0.9% (PF) INJ,SYRINGE ,10ML INJECT 1 SYRINGE DIRECTED BY PROVIDER ONCE DAILY NOT APPLIC ABLE 04/30/2024 [id number] 4 JEAN LINDQUISTI 2023 30 [facility] SODIUM CHLORIDE 0.9% (PF) INJ,SYRINGE ,10ML APPLY 1 S[place] TOPICALL Y DIRECTED BY PROVIDER TOPICA L 03/02/2024 [id number] 4 JEAN LINDQUISTI 2023 30 [facility] SODIUM CHLORIDE 0.9% SOLN,IRRG IRRIGATE UDP TOPICALL Y EVERY OTHER DAY TOPICA L DISCONT INUED (EDIT) 10/01/2023 [id number] 4 JEAN LINDQUISTI 2023 1000 [facility] SODIUM CHLORIDE 0.9% SOLN,IRRG IRRIGATE DIRECTED TOPICALL Y EVERY OTHER DAY TOPICA L 10/03/2023 [id number] 4 JEAN LINDQUISTI 2023 1000 [facility] SODIUM CHLORIDE 0.9% SOLN,IRRG IRRIGATE DIRECTED TOPICALL Y EVERY OTHER DAY TOPICA L 08/20/2023 [id number] 4 MELISSA NDEONDAVID 2023 1000 [facility] UMECLIDINIU M 62.5MCG/YARELY ANTEROL 25MCG/ACTUA T INH,ORAL,30 D INHALE 1 INHALATI ON BY MOUTH ONCE DAILY RESPIR ATORY (INHAL ATION) ACTIVE VALENTÍN SAHA 2022 [facility] UPADACITINI B 15MG 24HR TAB,SA TAKE ONE TABLET BY MOUTH ONCE DAILY ORAL ACTIVE VALENTÍN SAHA 2022 [facility] [place] [facility] Allergies, Adverse Reactions, Alerts Combined list of allergies from Department of Defense and Veterans Affairs facilities. It does not include entries that were removed or entered in error. Substance Category Reaction Severity Reaction type Status Date Reported Comments Source HEPARIN Propensity to adverse reactions to drug (finding) Cardiac arrest SEVERE active 3 [facility] [place] [facility] Immunizations Combined list of available immunizations from the Department of Defense and Veterans Affairs facilities. Immunization Series Date Given Administered By Site Reaction Lot Number CVX Code Drug Vehicle Upholsterer Status Comments Source INFLUENZA, UNSPECIFIED FORMULATION 2023 88 complet ed [facility] [place] [facility] PNEUMOCOCCAL CONJUGATE PCV20, POLYSACCHARID E [id number] CONJUGATE, ADJUVANT, PF 2023 ROXANNA VILLALBA E LEFT DELTO ID [id number] 216 complet [facility] TDAP 2023 ROXANNA VILLALBA LEFT DELTO ID [id number] 115 complet ed [facility] [place] [facility] INFLUENZA, UNSPECIFIED FORMULATION 2022 88 complet ed [facility] [place] [facility] COVID-19 (MODERNA), MRNA, LNP-S, BIVALENT, PF, 50 MCG/0.5 ML OR 25MCG/0.25 ML DOSE 1 2021 229 complet ed [facility] [place] [facility] INFLUENZA VACCINE, QUADRIVALENT, ADJUVANTED 2021 205 complet ed [facility] [place] [place] [facility] COVID-19 (MODERNA), MRNA, LNP-S, PF, 100 MCG/0.5ML DOSE OR 50 MCG/0.25ML DOSE 3 2020 207 complet ed [facility] [place] [facility] INFLUENZA, UNSPECIFIED FORMULATION 2020 88 complet ed [facility] [place] [facility] COVID-19 (MODERNA), MRNA, LNP-S, PF, 100 MCG/0.5ML DOSE OR 50 MCG/0.25ML DOSE 2 2020 207 complet ed [facility] COVID-19 (MODERNA), MRNA, LNP-S, PF, 100 MCG/0.5ML DOSE OR 50 MCG/0.25ML DOSE 1 2020 207 complet ed [facility] [place] [facility] INFLUENZA, TRIVALENT, ADJUVANTED 2018 NONE 168 complet ed [facility] [place] PNEUMOCOCCAL CONJUGATE PCV 13 2017 133 complet ed [facility] PNEUMOCOCCAL POLYSACCHARID E PPV23 2015 33 complet ed [facility] Results Combined list of recent chemistry, hematology [...] Oct 15, 2023 11:05 AM Reporting Lab: [address] [address] Performing Lab: [address] [address] [facility] BASIC METABOLI C PANEL (fasting ) GLUCOSE [MASS/VOLU ME] IN SERUM OR PLASMA 95 mg/dL 65 - 100 10/14 Specimen Type: SERUM No comment entered. Ordering Provider: Madelaine SAHA Report Released Date/Time: Oct 15, 2023 11:05 AM Reporting Lab: [facility] [place] [facility] [address] [facility] [address] Performing Lab: [facility] [address] [facility] [address] [facility] BASIC METABOLI C PANEL (fasting ) SODIUM [MOLES/VOL UME] IN SERUM OR PLASMA 141 mmol/L 135 - 145 10/14 Specimen Type: SERUM No comment entered. Ordering Provider: Madelaine SAHA Report Released Date/Time: Oct 15, 2023 11:05 AM Reporting Lab: [facility] [address] [address] Performing Lab: [facility] [address] [address] [facility] BASIC METABOLI C PANEL (fasting ) POTASSIUM [MOLES/VOL UME] IN SERUM OR PLASMA 4.2 mmol/L 3.5 - 5.0 10/14 Specimen Type: SERUM No comment entered. Ordering Provider: Madelaine SAHA Report Released Date/Time: Oct 15, 2023 11:05 AM Reporting Lab: [facility] [place] [facility] [address] [facility] [address] Performing Lab: [facility] [place] [facility] [address] [facility] [address] [facility] [place] [facility] BASIC METABOLI C PANEL (fasting ) CHLORIDE [MOLES/VOL UME] IN SERUM OR PLASMA 106 mmol/L 100 - 110 10/14 Specimen Type: SERUM No comment entered. Ordering Provider: Madelaine SAHA Report Released Date/Time: Oct 15, 2023 11:05 AM Reporting Lab: [facility] [place] [address] [address] Performing Lab: [facility] [place] [facility] [address] [facility] [address] [facility] BASIC METABOLI C PANEL (fasting ) CARBON DIOXIDE, TOTAL [MOLES/VOL UME] IN SERUM OR PLASMA 25 meq/L 20 - 30 10/14 Specimen Type: SERUM No comment entered. Ordering Provider: Madelaine SAHA Report Released Date/Time: Oct 15, 2023 11:05 AM Reporting Lab: [facility] [address] [address] Performing Lab: [facility] [address] [address] [facility] BASIC METABOLI C PANEL (fasting ) CREATININE [MASS/VOLU ME] IN SERUM OR PLASMA 1.37 mg/dL 0.50 - 1.40 10/14 Specimen Type: SERUM No comment entered. Ordering Provider: Madelaine SAHA Report Released Date/Time: Oct 15, 2023 11:05 AM Reporting Lab: [facility] [address] [address] Performing Lab: [facility] [address] [address] [facility] BASIC METABOLI C PANEL (fasting ) GLOMERULAR FILTRATION RATE/1.73 SQ M.PREDICTE D [VOLUME RATE/AREA] IN SERUM, PLASMA OR BLOOD BY CREATININE -BASED FORMULA (CKD-EPI 2020) 53 mL/min 60 10/14 L Specimen Type: SERUM No comment entered. Ordering Provider: Madelaine SAHA Report Released Date/Time: Oct 15, 2023 11:05 AM Reporting Lab: [facility] [address] [address] Performing Lab: [facility] [address] [address] [facility] CBC AND DIFF (AUTO) LEUKOCYTES [#/VOLUME] IN BLOOD BY AUTOMATED COUNT 6.76 10*3/uL 4.50 - 11.00 10/14 Specimen Type: BLOOD No comment entered. Ordering Provider: Madelaine SAHA Report Released Date/Time: Oct 15, 2023 11:05 AM Reporting Lab: [facility] [place] [facility] [address] [facility] [address] Performing Lab: [facility] [place] [facility] [address] [facility] [address] [facility] [place] [facility] CBC AND DIFF (AUTO) ERYTHROCYT ES [#/VOLUME] IN BLOOD BY AUTOMATED COUNT 5.57 10*6/uL 4.23 - 5.66 10/14 Specimen Type: BLOOD No comment entered. Ordering Provider: Madelaine SAHA Report Released Date/Time: Oct 15, 2023 11:05 AM Reporting Lab: [facility] [place] [address] [address] Performing Lab: [facility] [place] [facility] [address] [facility] [address] [facility] [place] [facility] CBC AND DIFF (AUTO) HEMOGLOBIN [MASS/VOLU ME] IN BLOOD 14.9 g/dL 12.8 - 17 10/14 Specimen Type: BLOOD No comment entered. Ordering Provider: Madelaine SAHA Report Released Date/Time: Oct 15, 2023 11:05 AM Reporting Lab: [facility] [place] [address] [address] Performing Lab: [facility] [place] [facility] [address] [facility] [address] [facility] [place] [facility] CBC AND DIFF (AUTO) HEMATOCRIT [VOLUME FRACTION] OF BLOOD BY AUTOMATED COUNT 47.5 39.2 - 50.4 10/14 Specimen Type: BLOOD No comment entered. Ordering Provider: Madelaine SAHA Report Released Date/Time: Oct 15, 2023 11:05 AM Reporting Lab: [facility] [place] [address] [address] Performing Lab: [facility] [place] [address] [address] [facility] CBC AND DIFF (AUTO) MCV [ENTITIC VOLUME] BY AUTOMATED COUNT 85.3 fL 82 - 99 10/14 Specimen Type: BLOOD No comment entered. Ordering Provider: Madelaine SAHA Report Released Date/Time: Oct 15, 2023 11:05 AM Reporting Lab: [facility] [address] [facility] [address] Performing Lab: [facility] [address] [facility] [address] [facility] [place] CBC AND DIFF (AUTO) MCHC [MASS/VOLU ME] BY AUTOMATED COUNT 31.4 g/dL 30.8 - 35.1 10/14 Specimen Type: BLOOD No comment entered. Ordering Provider: Madelaine SAHA Report Released Date/Time: Oct 15, 2023 11:05 AM Reporting Lab: [facility] [place] [facility] [address] [facility] [address] Performing Lab: [facility] [place] [facility] [address] [facility] [address] [facility] [place] [facility] CBC AND DIFF (AUTO) PLATELETS [#/VOLUME] IN BLOOD BY AUTOMATED COUNT 243 10*3/uL 140 - 360 10/14 Specimen Type: BLOOD No comment entered. Ordering Provider: Madelaine SAHA Report Released Date/Time: Oct 15, 2023 11:05 AM Reporting Lab: [facility] [address] [facility] [address] Performing Lab: [facility] [place] [facility] [address] [facility] [address] [facility] CBC AND DIFF (AUTO) ERYTHROCYT E DISTRIBUTI ON WIDTH [RATIO] BY AUTOMATED COUNT 15.0 12.0 - 16.0 10/14 Specimen Type: BLOOD No comment entered. Ordering Provider: Madelaine SAHA Report Released Date/Time: Oct 15, 2023 11:05 AM Reporting Lab: [facility] [place] [facility] [address] [facility] [address] Performing Lab: [facility] [place] [facility] [address] [facility] [address] [facility] [place] CBC AND DIFF (AUTO) MONOCYTES [#/VOLUME] IN BLOOD BY AUTOMATED COUNT 0.49 10*3/uL 0.30 - 1.10 10/14 Specimen Type: BLOOD No comment entered. Ordering Provider: Madelaine SAHA Report Released Date/Time: Oct 15, 2023 11:05 AM Reporting Lab: [facility] [place] [facility] [address] [facility] [address] Performing Lab: [facility] [place] [address] [address] [facility] [place] [facility] CBC AND DIFF (AUTO) MCH [ENTITIC MASS] BY AUTOMATED COUNT 26.8 pg 26.2 - 32.6 10/14 Specimen Type: BLOOD No comment entered. Ordering Provider: Madelaine SAHA Report Released Date/Time: Oct 15, 2023 11:05 AM Reporting Lab: [facility] [place] [address] [address] Performing Lab: [facility] [place] [address] [address] [facility] [place] [facility] CBC AND DIFF (AUTO) NEUTROPHIL S/100 LEUKOCYTES IN BLOOD BY AUTOMATED COUNT 67.8 43.7 - 75.8 10/14 Specimen Type: BLOOD No comment entered. Ordering Provider: Madelaine SAHA Report Released Date/Time: Oct 15, 2023 11:05 AM Reporting Lab: [facility] [place] [facility] [address] [facility] [address] Performing Lab: [facility] [place] [address] [address] [facility] [place] [facility] CBC AND DIFF (AUTO) LYMPHOCYTE S/100 LEUKOCYTES IN BLOOD BY AUTOMATED COUNT 21.9 14.0 - 42.3 10/14 Specimen Type: BLOOD No comment entered. Ordering Provider: Madelaine SAHA Report Released Date/Time: Oct 15, 2023 11:05 AM Reporting Lab: [facility] [place] [facility] [address] [facility] [address] Performing Lab: [facility] [place] [facility] [address] [facility] [address] [facility] [place] [facility] CBC AND DIFF (AUTO) MONOCYTES/ 100 LEUKOCYTES IN BLOOD BY AUTOMATED COUNT 7.2 5.1 - 13.7 10/14 Specimen Type: BLOOD No comment entered. Ordering Provider: Madelaine SAHA Report Released Date/Time: Oct 15, 2023 11:05 AM Reporting Lab: [facility] [place] [facility] [address] [facility] [address] Performing Lab: [facility] [place] [facility] [address] [facility] [address] [facility] [place] CBC AND DIFF (AUTO) EOSINOPHIL S/100 LEUKOCYTES IN BLOOD BY AUTOMATED COUNT 2.1 0.4 - 6.8 10/14 Specimen Type: BLOOD No comment entered. Ordering Provider: Madelaine SAHA Report Released Date/Time: Oct 15, 2023 11:05 AM Reporting Lab: [facility] [place] [facility] [address] [facility] [address] Performing Lab: [facility] [place] [facility] [address] [facility] [address] [facility] [place] CBC AND DIFF (AUTO) BASOPHILS/ 100 LEUKOCYTES IN BLOOD BY AUTOMATED COUNT 0.6 0.1 - 2.0 10/14 Specimen Type: BLOOD No comment entered. Ordering Provider: Madelaine SAHA Report Released Date/Time: Oct 15, 2023 11:05 AM Reporting Lab: [facility] [place] [facility] [address] [facility] [address] Performing Lab: [facility] [place] [facility] [address] [facility] [address] [facility] [place] [facility] CBC AND DIFF (AUTO) NEUTROPHIL S [#/VOLUME] IN BLOOD BY AUTOMATED COUNT 4.58 10*3/uL 2.20 - 7.60 10/14 Specimen Type: BLOOD No comment entered. Ordering Provider: Madelaine SAHA Report Released Date/Time: Oct 15, 2023 11:05 AM Reporting Lab: [facility] [place] [address] [address] Performing Lab: [facility] [place] [address] [address] [facility] [place] [facility] CBC AND DIFF (AUTO) LYMPHOCYTE S [#/VOLUME] IN BLOOD BY AUTOMATED COUNT 1.48 10*3/uL 1.00 - 3.20 10/14 Specimen Type: BLOOD No comment entered. Ordering Provider: Madelaine SAHA Report Released Date/Time: Oct 15, 2023 11:05 AM Reporting Lab: [facility] [place] [address] [address] Performing Lab: [facility] [place] [address] [phone] [place], [place] [address] [facility] [facility] CBC AND DIFF (AUTO) EOSINOPHIL S [#/VOLUME] IN BLOOD BY AUTOMATED COUNT 0.14 10*3/uL 0.03 - 0.44 10/14 Specimen Type: BLOOD No comment entered. Ordering Provider: Madelaine SAHA Report Released Date/Time: Oct 15, 2023 11:05 AM Reporting Lab: [facility] [place] [address] [address] Performing Lab: [facility] [place] [address] [address] [facility] [place] [facility] CBC AND DIFF (AUTO) BASOPHILS [#/VOLUME] IN BLOOD BY AUTOMATED COUNT 0.04 10*3/uL 0.01 - 0.13 10/14 Specimen Type: BLOOD No comment entered. Ordering Provider: Madelaine SAHA Report Released Date/Time: Oct 15, 2023 11:05 AM Reporting Lab: [facility] [place] [facility] [address] [facility] [address] Performing Lab: [facility] [place] [facility] [address] [facility] [address] [facility] [place] [facility] CBC AND DIFF (AUTO) IMMATURE GRANULOCYT ES/100 LEUKOCYTES IN BLOOD BY AUTOMATED COUNT 0.4 0.0 - 0.7 10/14 Specimen Type: BLOOD No comment entered. Ordering Provider: Madelaine SAHA Report Released Date/Time: Oct 15, 2023 11:05 AM Reporting Lab: [facility] [place] [facility] [address] [facility] [address] Performing Lab: [facility] [address] [facility] [address] [facility] CBC AND DIFF (AUTO) IMMATURE GRANULOCYT ES [#/VOLUME] IN BLOOD 0.03 10*3/uL 0.00 - 0.06 10/14 Specimen Type: BLOOD No comment entered. Ordering Provider: Madelaine SAHA Report Released Date/Time: Oct 15, 2023 11:05 AM Reporting Lab: [facility] [place] [facility] [address] [facility] [address] Performing Lab: [facility] [place] [facility] [address] [facility] [address] [facility] IRON & TIBC PANEL IRON BINDING CAPACITY [MASS/VOLU ME] IN SERUM OR PLASMA 338 ug/dL 204 - 475 10/14 Specimen Type: SERUM No comment entered. Ordering Provider: Madelaine SAHA Report Released Date/Time: Oct 15, 2023 11:05 AM Reporting Lab: [facility] [place] [facility] [address] [facility] [address] Performing Lab: [facility] [place] [facility] [address] [facility] [address] [facility] IRON & TIBC PANEL IRON [MASS/VOLU ME] IN SERUM OR PLASMA 51 ug/dL 40 - 160 10/14 Specimen Type: SERUM No comment entered. Ordering Provider: Madelaine SAHA Report Released Date/Time: Oct 15, 2023 11:05 AM Reporting Lab: [facility] [place] [facility] [address] [facility] [address] Performing Lab: [facility] [place] [facility] [address] [facility] [address] [facility] [facility] IRON & TIBC PANEL IRON/IRON BINDING CAPACITY.T OTAL [MASS RATIO] IN SERUM OR PLASMA 15.1 20.0 - 50.0 10/14 L Specimen Type: SERUM No comment entered. Ordering Provider: Madelaine SAHA Report Released Date/Time: Oct 15, 2023 11:05 AM Reporting Lab: [facility] [place] [address] [address] Performing Lab: [facility] [place] [address] [address] [facility] [place] [facility] LIPID PANEL FASTING CHOLESTERO L [MASS/VOLU ME] IN SERUM OR PLASMA 179 mg/dL 10/14 Specimen Type: SERUM No comment entered. Ordering Provider: Madelaine SAHA Report Released Date/Time: Oct 15, 2023 11:05 AM Reporting Lab: [facility] [place] [address] [address] Performing Lab: [facility] [place] [facility] [address] [facility] [address] [facility] [place] [facility] LIPID PANEL FASTING TRIGLYCERI DE [MASS/VOLU ME] IN SERUM OR PLASMA 123 mg/dL 0 - 150 10/14 Specimen Type: SERUM No comment entered. Ordering Provider: Madelaine SAHA Report Released Date/Time: Oct 15, 2023 11:05 AM Reporting Lab: [facility] [place] [facility] [address] [facility] [address] Performing Lab: [facility] [place] [address] [address] [facility] [place] [facility] LIPID PANEL FASTING CHOLESTERO L IN LDL [MASS/VOLU ME] IN SERUM OR PLASMA BY CALCTHOMPSON N 111 mg/dL 0 - 129 10/14 Specimen Type: SERUM No comment entered. Ordering Provider: Madelaine SAHA Report Released Date/Time: Oct 15, 2023 11:05 AM Reporting Lab: [facility] [place] [facility] [address] [facility] [address] Performing Lab: [facility] [place] [facility] [address] [facility] [address] [facility] [place] [facility] LIPID PANEL FASTING CHOLESTERO L.TOTAL/CH OLESTEROL IN HDL [MASS RATIO] IN SERUM OR PLASMA 4.2 10/14 Specimen Type: SERUM No comment entered. Ordering Provider: Madelaine SAHA Report Released Date/Time: Oct 15, 2023 11:05 AM Reporting Lab: [facility] [place] [address] [address] Performing Lab: [facility] [place] [address] [address] [facility] [place] [facility] LIPID PANEL FASTING CHOLESTERO L IN HDL [MASS/VOLU ME] IN SERUM OR PLASMA 43 mg/dL 40 - 60 10/14 Specimen Type: SERUM No comment entered. Ordering Provider: Madelaine SAHA Report Released Date/Time: Oct 15, 2023 11:05 AM Reporting Lab: [facility] [place] [facility] [address] [facility] [address] Performing Lab: [facility] [place] [address] [address] [facility] [place] [facility] LIVER FUNCTION PROTEIN [MASS/VOLU ME] IN SERUM OR PLASMA 7.1 g/dL 6.0 - 8.3 10/14 Specimen Type: SERUM No comment entered. Ordering Provider: Madelaine SAHA Report Released Date/Time: Oct 15, 2023 11:05 AM Reporting Lab: [facility] [place] [facility] [address] [facility] [address] Performing Lab: [facility] [place] [facility] [address] [facility] [address] [facility] [place] [facility] LIVER FUNCTION ALBUMIN [MASS/VOLU ME] IN SERUM OR PLASMA 3.8 g/dL 3.5 - 5.0 10/14 Specimen Type: SERUM No comment entered. Ordering Provider: Madelaine SAHA Report Released Date/Time: Oct 15, 2023 11:05 AM Reporting Lab: [facility] [place] [facility] [address] [facility] [address] Performing Lab: [facility] [place] [facility] [address] [facility] [address] [facility] [place] [facility] LIVER FUNCTION ALKALINE PHOSPHATAS E [ENZYMATIC ACTIVITY/V OLUME] IN SERUM OR PLASMA 50 U/L 40 - 150 10/14 Specimen Type: SERUM No comment entered. Ordering Provider: Madelaine SAHA Report Released Date/Time: Oct 15, 2023 11:05 AM Reporting Lab: [facility] [place] [facility] [address] [facility] [address] Performing Lab: [facility] [place] [facility] [address] [facility] [address] [facility] [place] [facility] LIVER FUNCTION ASPARTATE AMINOTRANS FERASE [ENZYMATIC ACTIVITY/V OLUME] IN SERUM OR PLASMA 15 U/L 5 - 34 10/14 Specimen Type: SERUM No comment entered. Ordering Provider: Madelaine SAHA Report Released Date/Time: Oct 15, 2023 11:05 AM Reporting Lab: [facility] [place] [facility] [address] [facility] [address] Performing Lab: [facility] [place] [facility] [address] [facility] [address] [facility] [place] [facility] LIVER FUNCTION ALANINE AMINOTRANS FERASE [ENZYMATIC ACTIVITY/V OLUME] IN SERUM OR PLASMA 26 U/L 10/14 Specimen Type: SERUM No comment entered. Ordering Provider: Madelaine SAHA Report Released Date/Time: Oct 15, 2023 11:05 AM Reporting Lab: [facility] [place] [facility] [address] [facility] [address] Performing Lab: [facility] [place] [facility] [address] [facility] [address] [facility] [place] [facility] LIVER FUNCTION BILIRUBIN. TOTAL [MASS/VOLU ME] IN SERUM OR PLASMA 0.5 mg/dL 0.2 - 1.2 10/14 Specimen Type: SERUM No comment entered. Ordering Provider: Madelaine SAHA Report Released Date/Time: Oct 15, 2023 11:05 AM Reporting Lab: [facility] [place] [facility] [address] [facility] [address] Performing Lab: [facility] [place] [facility] [address] [facility] [address] [facility] [place] [facility] CBC LEUKOCYTES [#/VOLUME] IN BLOOD BY AUTOMATED COUNT 6.94 10*3/uL 4.50 - 11.00 05/24 Specimen Type: BLOOD No comment entered. Ordering Provider: Madelaine SAHA Report Released Date/Time: Apr 14, 2023 08:29 AM Reporting Lab: [facility] [place] [facility] [address] [facility] [address] Performing Lab: [facility] [place] [facility] [address] [facility] [address] [facility] [place] [facility] CBC ERYTHROCYT ES [#/VOLUME] IN BLOOD BY AUTOMATED COUNT 4.59 10*6/uL 4.23 - 5.66 05/24 Specimen Type: BLOOD No comment entered. Ordering Provider: Madelaine SAHA Report Released Date/Time: Apr 14, 2023 08:29 AM Reporting Lab: [facility] [place] [facility] [address] [facility] [address] Performing Lab: [facility] [place] [facility] [address] [facility] [address] [facility] [place] [facility] CBC HEMOGLOBIN [MASS/VOLU ME] IN BLOOD 12.9 g/dL 12.8 - 17 05/24 Specimen Type: BLOOD No comment entered. Ordering Provider: Madelaine SAHA Report Released Date/Time: Apr 14, 2023 08:29 AM Reporting Lab: [facility] [place] [facility] [address] [facility] [address] Performing Lab: [facility] [place] [facility] [address] [facility] [address] [facility] [place] [facility] CBC HEMATOCRIT [VOLUME FRACTION] OF BLOOD BY AUTOMATED COUNT 40.6 39.2 - 50.4 05/24 Specimen Type: BLOOD No comment entered. Ordering Provider: Madelaine SAHA Report Released Date/Time: Apr 14, 2023 08:29 AM Reporting Lab: [facility] [place] [facility] [address] [facility] [address] Performing Lab: [facility] [place] [facility] [address] [facility] [address] [facility] [place] [facility] CBC MCV [ENTITIC VOLUME] BY AUTOMATED COUNT 88.5 fL 82 - 99 05/24 Specimen Type: BLOOD No comment entered. Ordering Provider: Madelaine SAHA Report Released Date/Time: Apr 14, 2023 08:29 AM Reporting Lab: [facility] [place] [facility] [address] [facility] [address] Performing Lab: [facility] [place] [facility] [address] [facility] [address] [facility] [place] [facility] CBC MCHC [MASS/VOLU ME] BY AUTOMATED COUNT 31.8 g/dL 30.8 - 35.1 05/24 Specimen Type: BLOOD No comment entered. Ordering Provider: Madelaine SAHA Report Released Date/Time: Apr 14, 2023 08:29 AM Reporting Lab: [facility] [place] [facility] [address] [facility] [address] Performing Lab: [facility] [place] [facility] [address] [facility] [address] [facility] [place] [facility] CBC PLATELETS [#/VOLUME] IN BLOOD BY AUTOMATED COUNT 309 10*3/uL 140 - 360 05/24 Specimen Type: BLOOD No comment entered. Ordering Provider: Madelaine SAHA Report Released Date/Time: Apr 14, 2023 08:29 AM Reporting Lab: [facility] [place] [facility] [address] [facility] [address] Performing Lab: [facility] [place] [facility] [address] [facility] [address] [facility] [place] [facility] CBC ERYTHROCYT E DISTRIBUTI ON WIDTH [RATIO] BY AUTOMATED COUNT 14.0 12.0 - 16.0 05/24 Specimen Type: BLOOD No comment entered. Ordering Provider: Madelaine SAHA Report Released Date/Time: Apr 14, 2023 08:29 AM Reporting Lab: [facility] [place] [address] [address] Performing Lab: [facility] [place] [facility] [address] [facility] [address] [facility] [place] [facility] CBC MCH [ENTITIC MASS] BY AUTOMATED COUNT 28.1 pg 26.2 - 32.6 05/24 Specimen Type: BLOOD No comment entered. Ordering Provider: Madelaine SAHA Report Released Date/Time: Apr 14, 2023 08:29 AM Reporting Lab: [facility] [place] [facility] [address] [facility] [address] Performing Lab: [facility] [place] [facility] [address] [facility] [address] [facility] [place] [facility] BASIC METABOLI C PANEL (fasting ) UREA NITROGEN [MASS/VOLU ME] IN SERUM OR PLASMA 17 mg/dL 7 - 25 05/24 Specimen Type: SERUM No comment entered. Ordering Provider: Madelaine SAHA Report Released Date/Time: Apr 26, 2023 04:38 PM Reporting Lab: [facility] [place] [address] [address] Performing Lab: [facility] [place] [facility] [address] [facility] [address] [facility] BASIC METABOLI C PANEL (fasting ) GLUCOSE [MASS/VOLU ME] IN SERUM OR PLASMA 95 mg/dL 65 - 100 05/24 Specimen Type: SERUM No comment entered. Ordering Provider: Madelaine SAHA Report Released Date/Time: Apr 26, 2023 04:38 PM Reporting Lab: [facility] [address] [facility] [address] Performing Lab: [facility]ERYTRN [facility] [address] [facility] [address] [facility] BASIC METABOLI C PANEL (fasting ) SODIUM [MOLES/VOL UME] IN SERUM OR PLASMA 142 mmol/L 135 - 145 05/24 Specimen Type: SERUM No comment entered. Ordering Provider: Madelaine SAHA Report Released Date/Time: Apr 26, 2023 04:38 PM Reporting Lab: [facility]ERYTRN [facility] [address] [facility] [address] Performing Lab: [facility] [address] [facility] [address] [facility] BASIC METABOLI C PANEL (fasting ) POTASSIUM [MOLES/VOL UME] IN SERUM OR PLASMA 4.8 mmol/L 3.5 - 5.0 05/24 Specimen Type: SERUM No comment entered. Ordering Provider: Madelaine SAHA Report Released Date/Time: Apr 26, 2023 04:38 PM Reporting Lab: [facility]TRN [facility] [address] [facility] [address] Performing Lab: [facility]ERYTRN [facility] [address] [facility] [address] [facility] BASIC METABOLI C PANEL (fasting ) CHLORIDE [MOLES/VOL UME] IN SERUM OR PLASMA 107 mmol/L 100 - 110 05/24 Specimen Type: SERUM No comment entered. Ordering Provider: Madelaine SAHA Report Released Date/Time: Apr 26, 2023 04:38 PM Reporting Lab: [facility] [place] [address] [address] Performing Lab: [facility] [address] [address] [facility] [place] [facility] BASIC METABOLI C PANEL (fasting ) CARBON DIOXIDE, TOTAL [MOLES/VOL UME] IN SERUM OR PLASMA 24 meq/L 20 - 30 05/24 Specimen Type: SERUM No comment entered. Ordering Provider: Madelaine SAHA Report Released Date/Time: Apr 26, 2023 04:38 PM Reporting Lab: [facility] [place] [address] [address] Performing Lab: [facility] [address] [facility] [place] [facility] BASIC METABOLI C PANEL (fasting ) CREATININE [MASS/VOLU ME] IN SERUM OR PLASMA 1.49 mg/dL 0.50 - 1.40 05/24 H Specimen Type: SERUM No comment entered. Ordering Provider: Madelaine SAHA Report Released Date/Time: Apr 26, 2023 04:38 PM Reporting Lab: [facility] [place] [address] [address] Performing Lab: [facility] [address] [address] [facility] [place] [facility] BASIC METABOLI C PANEL (fasting ) GLOMERULAR FILTRATION RATE/1.73 SQ M.PREDICTE D [VOLUME RATE/AREA] IN SERUM, PLASMA OR BLOOD BY CREATININE -BASED FORMULA (CKD-EPI 2020) 48 mL/min 60 05/24 L Specimen Type: SERUM No comment entered. Ordering Provider: Madelaine SAHA Report Released Date/Time: Apr 26, 2023 04:38 PM Reporting Lab: [facility] [place] [address] [address] Performing Lab: [facility] [address] [facility] [address] [facility] [place] [facility] IRON & TIBC PANEL IRON BINDING CAPACITY [MASS/VOLU ME] IN SERUM OR PLASMA 347 ug/dL 204 - 475 05/24 Specimen Type: SERUM No comment entered. Ordering Provider: Madelaine SAHA Report Released Date/Time: Apr 26, 2023 04:38 PM Reporting Lab: [facility] [place] [facility] [address] [facility] [address] Performing Lab: [facility] [place] [facility] [address] [facility] [address] [facility] [place] [facility] IRON & TIBC PANEL IRON [MASS/VOLU ME] IN SERUM OR PLASMA 41 ug/dL 40 - 160 05/24 Specimen Type: SERUM No comment entered. Ordering Provider: Madelaine SAHA Report Released Date/Time: Apr 26, 2023 04:38 PM Reporting Lab: [facility] [place] [facility] [address] [facility] [address] Performing Lab: [facility] [place] [facility] [address] [facility] [address] [facility] [place] [facility] IRON & TIBC PANEL IRON/IRON BINDING CAPACITY.T OTAL [MASS RATIO] IN SERUM OR PLASMA 11.8 20.0 - 50.0 05/24 L Specimen Type: SERUM No comment entered. Ordering Provider: Madelaine SAHA Report Released Date/Time: Apr 26, 2023 04:38 PM Reporting Lab: [facility] [place] [facility] [address] [facility] [address] Performing Lab: [facility] [place] [facility] [address] [facility] [address] [facility] [place] [facility] MICROALB UMIN CREATINI NE RATIO PANEL MICROALBUM IN/CREATIN INE [MASS RATIO] IN URINE 21.1 mg/g 0 - 29.9 05/24 Specimen Type: URINE No comment entered. Ordering Provider: VANWAGNER,W ILLIAM F Report Released Date/Time: Apr 26, 2023 04:38 PM Reporting Lab: [facility] [place] [facility] [address] [facility] [address] Performing Lab: [facility] [place] [facility] [address] [facility] [address] [facility] [place] [facility] MICROALB UMIN CREATINI NE RATIO PANEL MICROALBUM IN [MASS/VOLU ME] IN URINE 1.9 mg/dL 05/24 Specimen Type: URINE No comment entered. Ordering Provider: Madelaine SAHA Report Released Date/Time: Apr 26, 2023 04:38 PM Reporting Lab: [facility] [place] [facility] [address] [facility] [address] Performing Lab: [facility] [place] [facility] [address] [facility] [address] [facility] [place] [facility] MICROALB UMIN CREATINI NE RATIO PANEL CREATININE [MASS/VOLU ME] IN URINE 89.96 mg/dL 05/24 Specimen Type: URINE No comment entered. Ordering Provider: Madelaine SAHA Report Released Date/Time: Apr 26, 2023 04:38 PM Reporting Lab: [facility] [place] [facility] [address] [facility] [address] Performing Lab: [facility] [place] [facility] [address] [facility] [address] [facility] [place] [facility] URINALYS IS COLOR OF URINE Light-Ye llow 05/24 Specimen Type: URINE Comment: If Glucose = >500 and Ketones are positive, please alert the Physician. Ordering Provider: Madelaine SAHA Report Released Date/Time: Apr 26, 2023 04:38 PM Reporting Lab: [facility] [place] [facility] [address] [facility] [address] Performing Lab: [facility] [place] [facility] [address] [facility] [address] [facility] [place] [facility] URINALYS IS APPEARANCE OF URINE Clear 05/24 Specimen Type: URINE Comment: If Glucose = >500 and Ketones are positive, please alert the Physician. Ordering Provider: Madelaine SAHA Report Released Date/Time: Apr 26, 2023 04:38 PM Reporting Lab: [facility] [place] [facility] [address] [facility] [address] Performing Lab: [facility] [place] [facility] [address] [facility] [address] [facility] [place] [facility] URINALYS IS GLUCOSE [MASS/VOLU ME] IN URINE NEGATIVE mg/dL 05/24 Specimen Type: URINE Comment: If Glucose = >500 and Ketones are positive, please alert the Physician. Ordering Provider: Madelaine SAHA Report Released Date/Time: Apr 26, 2023 04:38 PM Reporting Lab: [facility] [place] [facility] [address] [facility] [address] Performing Lab: [facility] [place] [facility] [address] [facility] [address] [facility] [place] [facility] URINALYS IS KETONES [MASS/VOLU ME] IN URINE BY TEST STRIP NEGATIVE mg/dL 05/24 Specimen Type: URINE Comment: If Glucose = >500 and Ketones are positive, please alert the Physician. Ordering Provider: Madelaine SAHA Report Released Date/Time: Apr 26, 2023 04:38 PM Reporting Lab: [facility] [place] [facility] [address] [facility] [address] Performing Lab: [facility] [place] [facility] [address] [facility] [address] [facility] [place] [facility] URINALYS IS ERYTHROCYT ES [PRESENCE] IN URINE SEDIMENT BY LIGHT MICROSCOPY NEGATIVE mg/dL 05/24 Specimen Type: URINE Comment: If Glucose = >500 and Ketones are positive, please alert the Physician. Ordering Provider: Madelaine SAHA Report Released Date/Time: Apr 26, 2023 04:38 PM Reporting Lab: [facility] [place] [facility] [address] [facility] [address] Performing Lab: [facility] [place] [facility] [address] [facility] [address] [facility] [place] [facility] URINALYS IS PROTEIN [MASS/VOLU ME] IN URINE BY TEST STRIP NEGATIVE mg/dL 05/24 Specimen Type: URINE Comment: If Glucose = >500 and Ketones are positive, please alert the Physician. Ordering Provider: Madelaine SAHA Report Released Date/Time: Apr 26, 2023 04:38 PM Reporting Lab: [facility] [place] [facility] [address] [facility] [address] Performing Lab: [facility] [place] [facility] [address] [facility] [address] [facility] [place] [facility] URINALYS IS NITRITE [PRESENCE] IN URINE NEGATIVE mg/dL 05/24 Specimen Type: URINE Comment: If Glucose = >500 and Ketones are positive, please alert the Physician. Ordering Provider: Madelaine SAHA Report Released Date/Time: Apr 26, 2023 04:38 PM Reporting Lab: [facility] [place] [facility] [address] [facility] [address] Performing Lab: [facility] [place] [facility] [address] [facility] [address] [facility] [place] [facility] URINALYS IS BILIRUBIN. TOTAL [PRESENCE] IN URINE NEGATIVE mg/dL 05/24 Specimen Type: URINE Comment: If Glucose = >500 and Ketones are positive, please alert the Physician. Ordering Provider: Madelaine SAHA Report Released Date/Time: Apr 26, 2023 04:38 PM Reporting Lab: [facility] [place] [facility] [address] [facility] [address] Performing Lab: [facility] [place] [facility] [address] [facility] [address] [facility]ITALRCL[facility]ITALN [facility]CH[facility] URINALYS IS SPECIFIC GRAVITY OF URINE BY REFRACTOME TRY 1.017 1.016 - 1.022 05/24 Specimen Type: URINE Comment: If Glucose = >500 and Ketones are positive, please alert the Physician. Ordering Provider: Madelaine SAHA Report Released Date/Time: Apr 26, 2023 04:38 PM Reporting Lab: [facility] [place] [facility] [address] [facility] [address] Performing Lab: [facility] [address] [facility] [address] [facility] URINALYS IS PH OF URINE BY TEST STRIP 6.0 5.0 - 9.0 05/24 Specimen Type: URINE Comment: If Glucose = >500 and Ketones are positive, please alert the Physician. Ordering Provider: Madelaine SAHA Report Released Date/Time: Apr 26, 2023 04:38 PM Reporting Lab: [facility] [place] [facility] [address] [facility] [address] Performing Lab: [facility] [address] [facility] URINALYS IS UROBILINOG EN [MASS/VOLU ME] IN URINE BY TEST STRIP <2.0mg/d L <2.0 - 2.0 05/24 Specimen Type: URINE Comment: If Glucose = >500 and Ketones are positive, please alert the Physician. Ordering Provider: Madelaine SAHA Report Released Date/Time: Apr 26, 2023 04:38 PM Reporting Lab: [facility] [place] [facility] [address] [facility] [address] Performing Lab: [facility] [address] [facility] [address] [facility] URINALYS IS LEUKOCYTE ESTERASE [PRESENCE] IN URINE BY TEST STRIP NEGATIVE 05/24 Specimen Type: URINE Comment: If Glucose = >500 and Ketones are positive, please alert the Physician. Ordering Provider: Madelaine SAHA Report Released Date/Time: Apr 26, 2023 04:38 PM Reporting Lab[facility] [address] [facility] [address] Performing Lab: [facility] [address] [facility] [address] [facility] Vital Signs Combined list of inpatient and [...] [id number] 12:55:36 [facility] PULSE OXIMETRY 90 10/22/2023 12:55:36 [facility] WEIGHT 196 10/22/2023 12:55:36 [facility] BMI 32kg/m2 10/22/2023 12:55:36 [facility] PAIN 0 10/22/2023 12:55:36 [facility] TEMPERATURE 98.1 10/22/2023 12:55:36 [facility] PULSE 88 10/22/2023 12:55:36 [facility] RESPIRATION 16 10/22/2023 12:55:36 [facility] Encounters Combined list of: 1) Encounters from Department of Veterans Affairs facilities going back up to thelast 18 months. 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<b r/> VALENTÍN SAHA 01/22 [facility] En[facility] [id number] 01/22 [facility] [id number] 01/25 [facility] En[facility] [id number] 01/25 [facility] Encounter [id number] 01/25 [facility] WHEELCHAIR MNGMENT TRAINING [id number] Diagnos is: ICD-10- CM R26.89 Other abnorma lities of gait and mobilit y
JOHN MCFADDEN ICA L 02/22 [facility] En[facility] [id number] 04/08 [facility] WHEELCHAIR MNGMENT TRAINING [id number] Diagnos is: ICD-10- CM R26.89 Other abnorma lities of gait and mobilit y
JOHN MCFADDEN ICA L 04/12 [facility] OFFICE O/P EST LOW 20-29 MIN [id number] Diagnos is: ICD-10- CM M35.00 Sjogren syndrom e, unspeci fied
VALENTÍN SAHA 04/23 [facility] Outpatient Encounter [id number] ALEXUS ZARAGOZA 04/24 [facility] Outpatient Encounter [id number] Diagnos is: ICD-10- CM Z04.89 Encount er for examina tion and observa tion for oth reasons
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
CHANI PISANO 05/03 [place] [facility] Outpatient Encounter [id number] 07/23 [facility] Outpatient Encounter [id number] 08/10 [facility] Q[facility] OL DIG ASSMT&MGMT 5-10 [id number] Diagnos is: ICD-10- CM S91.009 A Unspeci fied open wound, unspeci fied ankle, initial encount er
KATY THORPE 08/16 [facility] Out[facility] Encounter [id number] Diagnos is: ICD-10- CM F43.10 Post-tr aumatic stress disorde r, unspeci fied
FEARINGPARVEZ A 09/20 [facility] En[facility] [id number] FEARING,PARVEZ Lopez 09/20 [facility] En[facility] [id number] 10/04 [facility] OFFICE O/P EST LOW 20 MIN [id number] Diagnos is: ICD-10- CM J44.9 Chronic obstruc tive pulmona ry disease , unspeci fied
MARIA AVALENTÍN 10/21 [facility] OFF/OP EST MAY X REQ PHY/QHP [id number] Diagnos is: ICD-10- CM I10 Essenti al (primar y) hyperte nsion<b r/> Dionna YANEZ 10/24 [facility] COMPRE OPH EXAM NEW PT 1/> [id number] Diagnos is: ICD-10- CM H40.013 Open angle with borderl ine finding s, low risk, bilater al
PARVEZ LEMUS 10/24 [facility] ECHO EXAM OF EYE THICKNESS [id number] Diagnos is: ICD-10- CM H40.013 Open angle with borderl ine finding s, low risk, bilater al
PARVEZ LEMUS 10/24 [facility] FIT SPECTACLES MULTIFOCAL [id number] Diagnos is: ICD-10- CM Z46.0 Encount er for fit/adj st of spectac les and contact lenses< br/> PARVEZ LEMUS 10/25 [facility] Out[facility] Encounter [id number] 10/25 [facility] Out[facility] Encounter [id number] 11/23 [facility] Out[facility] Encounter [id number] 12/07 [facility] En[facility] [id number] 12/09 [facility] Out[facility] Encounter [id number] 12/09 [facility] En[facility] [id number] 01/23 [facility] QNHP OL DIG ASSMT&MGMT 5-10 [id number] Diagnos is: ICD-10- CM Z12.2 Encntr screen for maligna nt neoplas m of respira tory organs< br/> PUCHALSKI, MIRELA L 01/23 [facility] Out[facility] En[facility] [id number] 01/31 [facility] Outpatient Encounter [id number] 05/11 [facility] Outpatient Encounter [id number] 05/16 [facility] QNHP OL DIG ASSMT&MGMT 5-10 [id number] Diagnos is: ICD-10- CM R52 Pain, unspeci fied
LAURA LEDESMA 05/26 [facility] Outpatient Encounter [id number] 06/01 [facility] Social History Combined list of available smoking, tobacco, and other social history from Department of Defense and Veterans Affairs facilities. Social History Type Response Date Comment Sour e Tobacco smoking status NHIS VA-TOBACCO USE FORMER CIGARETTES 06/01/2024 [facility] History of tobacco use NE-TOBACCO NEVER USED OTHER TYPE 06/01/2024 [facility] History of tobacco use VA-TOBACCO FORMER USER 01/22/2023 [facility] History of tobacco use VA-TOBACCO FORMER USER 02/17/2022 [facility] History of tobacco use VA-TOBACCO QUIT 1 TO < 5 YRS 06/22/2019 VICKY EVANS Plan of Care List of future care activities from Department of Veterans Affairs facilities. Additional future care activities may be listed in the Assessment and Plan section. Date/Time Care Activity Care Activity Detail Facili ty 09/07/2024 AMBULATORY - MEDICINE AMBULATORY - MEDICI [place] [facility] 10/20/2024 AMBULATORY - MEDICINE AMBULATORY - MEDICI [place] [facility] Advance Directives List of completed, amended, or rescinded Advance Directives on record at Department of [facility] facilities. An actual copy of the Directive is not included. Date Advance Directive Provider Source 10/26/2023 ADVANCE DIRECTIVE MARGARITA KRAFT TRDionna SCHMITT [facility]
[2024-07-26 00:38] LABS: Lyme PCR Source FLUID, SYNOVIAL; Lyme Synovial Fluid PCR NOT DETECTED (NOT DETECTED)
== END 2024-07-24 10:35 | disposition home or self-care (01) ==
LOC: HO.LAB 10:34
PROVIDERS: PCP Internal Medicine; Visit Provider Student in an Organized Health Care Education/Training Program
DX: M06.09 Rheumatoid arthritis without rheumatoid factor, multiple sites (principal); M25.461 Effusion, right knee; L88 Pyoderma gangrenosum
CPT/HCPCS: 20610; 36415; 87070; 87073; 87205; 87476; 89051; 89060; 99212; J2003; J3300

== ENCOUNTER → 2024-07-31 11:09 | Outpatient (BNVA) | payer MEDICARE, SELFPAY | PROVIDERS: PCP Internal Medicine; Visit Provider Nurse Practitioner Family ==

== ENCOUNTER 2024-08-31 11:06 | Outpatient (AMB) | payer MEDICARE, SELFPAY ==
--- NOTE | 2024-08-31 11:09 | MHC.OFFVIS ---
Vital Signs 08/31/24 11:23 Height 5 ft 6 in Weight 185 lb BMI 29.9 BP 127/79 Blood Pressure Location Lt brachial Position Sitting Pulse 77 Pulse Source Pulse Oximeter Pulse Oximetry (%) 97 Oxygen Delivery Method Room Air Intake Visit Reasons: Pill Count Intake Note: Sarath comes in today for a pill count to hydromorphone, patient should have 6 tablets and presents with a total of 44 tablets (30 from this script and 14 left over from last script). 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 Patient is supposed to have #6 pills, in his possession has #44 pills. Patient takes hydromorphine mostly during the wound care and dressing changes in clinic and at home. Patient reports adequate analgesia with current medication regime. He continues to take gabapentin, duloxetine and Tylenol with partial benefit in his left foot and good relief in his right lower extremity. Patient and his report left wound has slightly improved. He continues to regularly follow up with Wound care center and Dermatology providers. Denies any fever, chills, weight loss, bleeding, weakness, dizziness, shortness of breaths, constipation, nausea, sedation, urinary retention or abdominal pain. 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 Acute pulmonary embolism with acute cor pulmonale Acute pulmonary embolism Cardiac arrest CKD (chronic kidney disease) stage 3, GFR 30-59 ml/min Sjogren's disease Leg pain, bilateral Elevated serum creatinine COPD (chronic obstructive pulmonary disease) HTN (hypertension) Rheumatoid arthritis Chronic ulcer of leg Surgical History History of ankle surgery History of hernia repair History of left knee replacement Family History Sister Breast cancer Father Aneurysm Mother Angina at rest Other No family history of coronary artery disease Social History Household Members: Spouse Housing: House Do you presently have visiting nurse or other home services: No Alcohol intake: current Alcohol intake frequency: holidays/special occasions only Comment: restraints Patient Tobacco Use Status: Former Tobacco user Tobacco use type: Cigarette Cigarette Packs Per Day: 1 Years Smoked: quit + years e-Cigarette/Vaping Use: Never Used Advance Directives Date on File: 12/23/21 service: Yes Current occupational status: retired Cognitive needs: Yes (cane) Hearing needs: No Vision needs: Yes (Pt wear glasses. ) Review of Systems Const All systems reviewed & are unremarkable except as noted in HPI and below Physical Exam Vital Signs: Last Vital Signs Pulse 77 08/31/24 11:23 BP 127/79 08/31/24 11:23 Pulse Ox 97 08/31/24 11:23 Oxygen Delivery Method Room Air 08/31/24 11:23 BMI result Body Mass Index 29.9 General: Appears afebrile. Alert and oriented. Mood and affect appropriate. Follows and participates in conversation appropriately. Respiratory effort is unlabored. No cough. Sitting comfortably in the wheelchair. Left lower leg with dressing, dry and intact. Resp Effort & Inspection: normal respiratory effort, able to speak in complete sentences, no cough, no respiratory distress and No symmetric chest movement GI Inspection: Yes normal to inspection Palpation (GI): Soft to palpation, nontender and no guarding Psych Appearance: grossly normal and well kempt Mental Status: mental status grossly normal Speech and movement: Normal speech and movement present and Clear speech present Affect: normal affect Attitude: cooperative Thought process: Normal thought process present Thought content: Normal thought content present, suicidality (none), no hallucinations and Depressive thoughts present Insight: Good insight present (Psych) Judgement: Good judgement present (Psych) Results Reviewed Results Reviewed: Assessment & Plan Assessment & Plan (1) Non-healing wound of left lower extremity: Code(s): S81.802A - Unspecified open wound, left lower leg, initial encounter Category: Medical (2) Chronic pain of left lower extremity: Code(s): M79.605 - Pain in left leg; G89.29 - Other chronic pain Category: Medical (3) Peripheral neuropathy: Code(s): G62.9 - Polyneuropathy, unspecified Category: Medical (4) Pyoderma gangrenosum: Code(s): L88 - Pyoderma gangrenosum Category: Medical (5) Chronic, continuous use of opioids: Code(s): F11.90 - Opioid use, unspecified, uncomplicated Category: Medical Plan Patient has shown accountability for his medication regimen and the pill count was accurate. There is no evidence of misuse, abuse or diversion at this time. [facility] reviewed. Will hold off script for hydromorphine 2 mg BID prn due to surplus in pill count today, he takes it for wound care/dressing changes and moderate-severe pain as needed. Continue duloxetine at pm, gabapentin 600 mg in am and 800 at pm and Tylenol as needed. Follow up with [facility] as scheduled. All questions were answered and the patient is in agreement with the plan. Follow up in 5 weeks for a pill count or sooner if needed. Coding Level of Care Code Est Pt Level 3 (67337) Complex EM visit Add On G2211 Diagnoses Non-healing wound of left lower extremity S81.802A Chronic pain of left lower extremity M79.605; G89.29 Peripheral neuropathy G62.9 Pyoderma gangrenosum L88 Chronic, continuous use of opioids F11.90
[2024-08-31 11:23] VITALS: BP 127/79; PULSE 77; O2SAT 97; BMI 29.9
--- OUTSIDE RECORDS SUMMARY | 2024-08-31 12:28 | XMS_ITS | Continuity of Care Document ---
Author Name [facility] Organization [facility] Care Team Providers Care Morning Caregiver Name Role Phone [facility] Unavailable Unavailable Problems Combined list of problems [...] COPD - Chronic Obstructive Pulmonary Disease (SCT [id number]) Active [facility] [place] Deep venous thrombosis of upper extremity Active Condition Feb 18, 2022 Entered By: MESFIN SAHA Comment: Left [facility] Depression (SCT [id number]) Active Condition [facility] Exposure to potentially hazardous substance Active Condition Oct 07, 2023 Entered By: COL BHARATHI ADAME Comment: ILIANA Screening Snomed Code connected 01/22/23 [facility] H/O: rheumatoid arthritis Active Condition [facility] Hypertension [facility] Moderate protein-calorie malnutrition (weight for age 60-74 percent of standard) Active Condition [facility] PE - Pulmonary Embolism (SCT [id number]) Active Condition [facility] Pyoderma gangrenosum Active Condition [facility] Rheumatoid arthritis Active Condition [facility] Sjogren syndrome Active Condition [facility] [place] Venous ulcer [facility] Diagnosis: ICD-10-CM R52 Pain, unspecified Active Diagnosis [facility] Diagnosis: ICD-10-CM Z12.2 Encntr screen for malignant neoplasm of respiratory organs Active Diagnosis [facility] [place] [facility] Diagnosis: ICD-10-CM Z46.0 Encounter for fit/adjst of spectacles and contact lenses Active Diagnosis [facility] [place] [facility] Diagnosis: ICD-10-CM H40.013 Open angle with borderline findings, low risk, bilateral Active [facility] [place] [facility] Diagnosis: ICD-10-CM I10 Essential (primary) hypertension [facility] Diagnosis: ICD-10-CM J44.9 Chronic obstructive pulmonary disease, unspecified Active Diagnosis [facility] Diagnosis: ICD-10-CM F43.10 Post-traumatic stress disorder, unspecified Active Diagnosis [facility] [facility] Diagnosis: ICD-10-CM S91.009A Unspecified open wound, unspecified ankle, initial encounter Active Diagnosis [facility] Diagnosis: ICD-10-CM Z13.9 Encounter for screening, unspecified Active Diagnosis [facility] Diagnosis: ICD-10-CM I25.10 Athscl heart disease of [place] coronary artery w/o ang pctrs Active Diagnosis [facility] [place] [facility] Diagnosis: ICD-10-CM Z04.89 Encounter for examination and observation for oth reasons Active Diagnosis [facility] Diagnosis: ICD-10-CM M35.00 Sjogren syndrome, unspecified Active Diagnosis [facility] [place] [facility] Diagnosis: ICD-10-CM R26.89 Other abnormalities of gait and mobility Active Diagnosis [facility] Medications Combined list of outpatient medications [...] MOUTH PRN ORAL ACTIVE VALENTÍN SAHA 20[facility] ALBUTEROL 90MCG/ACTUA T (CFC-F) INHL,ORAL,8 .5GM DOSE COUNTER INHALE 2 PUFFS BY MOUTH EVERY 6 HOURS NEEDED RESPIR ATORY (INHAL ATION) ACTIVE VALENTÍN SAHA 2022 [facility] [place] [facility] CALCIUM CARBONATE TAB TAKE [facility] [address] [place] CHOLECALCIF MELISSA (VIT D3) TAB TAKE EVERY DAY [facility] [address] [place] DULOXETINE HCL 20MG CAP,EC TAKE 1 CAPSULE BY MOUTH AT BEDTIME ORAL ACTIVE VALENTÍN SAHA [facility] ETANERCEPT 50MG INJ,SOLN INJECT UNDER THE SKIN SUBCUT ANEOUS [facility] [address] [place] FAMOTIDINE TAB TAKE [facility] [address] [place] FLUTICASONE PROPIONATE 50MCG/SPRAY SOLN,NASAL, 16GM INSTILL 2 SPRAYS INTO EACH NOSTRIL ONCE DAILY NASAL ACTIVE VALENTÍN SAHA 2022 [facility] [place] [facility] GABAPENTIN 300MG CAP TAKE 2 CAPSULES BY MOUTH EVERY EVENING AND TAKE 4 CAPSULES BY MOUTH AT BEDTIME ORAL ACTIVE VALENTÍN SAHA 20[facility] HYDROCHLORO THIAZIDE TAB TAKE EVERY DAY [facility] [address] [place] HYDROMORPHO NE HCL 2MG TAB TAKE ONE TABLET BY MOUTH THREE TIMES DAILY NEEDED ORAL ACTIVE VALENTÍN ASHA 2022 [facility] IBUPROFEN TAB TAKE PRN ACTIVE [facility] [address] [place] METOPROLOL TARTRATE 25MG TAB TAKE ONE TABLET BY MOUTH TWICE DAILY ORAL ACTIVE VALENTÍN SAHA 2022 [facility] [place] [facility] MULTIVITAMI N & MINERALS TAB TAKE EVERY DAY ACTIVE [facility] 2018 [place] NALOXONE HCL 4MG/SPRAY SOLN,SPRAY, NASAL INSTILL 1 SPRAY ONE NOSTRIL ONE TIME PRN NASAL ACTIVE VALENTÍN SAHA 2022 [facility] [place] [facility] PREDNISONE (LOOK ALIKE/SOUND ALIKE) TAB TAKE BY MOUTH ORAL [facility] [address] [place] RIVAROXABAN 10MG TAB TAKE ONE TABLET BY MOUTH ONCE DAILY ORAL ACTIVE VALENTÍN SAHA 2022 [facility] SODIUM CHLORIDE 0.9% (PF) INJ,SYRINGE ,10ML INJECT 1 SYRINGE IV PUSH ONCE DAILY INTRAV ENOUS DISCONT INUED (EDIT) 04/28/2024 [id number] DEON LINDQUISTITRI 2023 30 [facility] [place] SODIUM CHLORIDE 0.9% (PF) INJ,SYRINGE ,10ML INJECT 1 SYRINGE IV PUSH DIRECTED BY PROVIDER INTRAV ENOUS DISCONT INUED (EDIT) 02/18/2024 [id number] 4 DEON LINDQUISTITRI 2023 30 [facility] [place] SODIUM CHLORIDE 0.9% (PF) INJ,SYRINGE ,10ML INJECT 1 SYRINGE DIRECTED BY PROVIDER ONCE DAILY NOT APPLIC ABLE 04/30/2024 [id number] 4 MELISSA OglesbyDAVID 2023 30 [facility] [place] SODIUM CHLORIDE 0.9% (PF) INJ,SYRINGE ,10ML APPLY 1 SYRINGE TOPICALL Y DIRECTED BY PROVIDER TOPICA L 03/02/2024 [id number] 4 DEON LINDQUISTITRI 2023 30 [facility] [place] SODIUM CHLORIDE 0.9% SOLN,IRRG IRRIGATE DIRECTED TOPICALL Y ONCE DAILY TOPICA L ACTIVE 08/31/2024 [id number] 5 MELISSA OglesbyDAVID 2024 1000 [facility] [place] SODIUM CHLORIDE 0.9% SOLN,IRRG IRRIGATE UDP TOPICALL Y ONCE DAILY TOPICA L DISCONT INUED (EDIT) 08/25/2024 [id number] 5 CHANGSSLIN OglesbyDAVID 2024 1000 [facility] [place] SODIUM CHLORIDE 0.9% SOLN,IRRG IRRIGATE UDP TOPICALL Y EVERY OTHER DAY TOPICA L DISCONT INUED (EDIT) 10/01/2023 [id number] 4 RAMBISSOO N,DAVID 2023 1000 [facility] [place] [facility] [facility] SODIUM CHLORIDE 0.9% SOLN,IRRG IRRIGATE DIRECTED TOPICALL Y EVERY OTHER DAY TOPICA L 10/03/2023 [id number] 4 RAMBISSOO N,DAVID 2023 1000 [facility] [place] [facility] [facility] SODIUM CHLORIDE 0.9% SOLN,IRRG IRRIGATE DIRECTED TOPICALL Y EVERY OTHER DAY TOPICA L 08/20/2023 [id number] 4 RAMBISSOO N,DAVID 2023 1000 [facility] UMECLIDINIU M 62.5MCG/YARELY ANTEROL 25MCG/ACTUA T INH,ORAL,30 D INHALE 1 INHALATI ON BY MOUTH ONCE DAILY RESPIR ATORY (INHAL ATION) ACTIVE VALENTÍN SAHA 2022 [facility] UPADACITINI B 15MG 24HR TAB,SA TAKE ONE TABLET BY MOUTH ONCE DAILY ORAL ACTIVE VALENTÍN SAHA 2022 [facility] Allergies, Adverse Reactions, Alerts Combined list of allergies from Department of Defense and Veterans Affairs facilities. It does not include entries that were removed or entered in error. Substance Category Reaction Severity Reaction type Status Date Reported Comments Source HEPARIN Propensity to adverse reactions to drug (finding) Cardiac arrest SEVERE active 3 [facility] [place] [facility] Immunizations Combined list of available immunizations from the Department of Defense and Veterans Affairs facilities. 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 INFLUENZA, UNSPECIFIED FORMULATION 2023 88 complet ed [facility] PNEUMOCOCCAL CONJUGATE PCV20, POLYSACCHARID E [id number] CONJUGATE, ADJUVANT, PF 2023 ROXANNA VILLALBA E LEFT DELTO ID [id number] 216 complet ed [facility] TDAP 2023 ROXANNA VILLALBA E LEFT DELTO ID [id number] 115 complet ed [facility] [place] INFLUENZA, UNSPECIFIED FORMULATION 2022 88 complet ed [facility] COVID-19 (MODERNA), MRNA, LNP-S, BIVALENT, PF, 50 MCG/0.5 ML OR 25MCG/0.25 ML DOSE 1 2021 229 complet ed [facility] [place] INFLUENZA VACCINE, QUADRIVALENT, ADJUVANTED 2021 205 complet ed [facility] COVID-19 (MODERNA), MRNA, LNP-S, PF, 100 MCG/0.5ML DOSE OR 50 MCG/0.25ML DOSE 3 2020 207 complet ed [facility] [place] INFLUENZA, UNSPECIFIED FORMULATION 2020 88 complet ed [facility] COVID-19 (MODERNA), MRNA, LNP-S, PF, 100 MCG/0.5ML DOSE OR 50 MCG/0.25ML DOSE 2 2020 207 complet ed [facility] [place] COVID-19 (MODERNA), MRNA, LNP-S, PF, 100 MCG/0.5ML DOSE OR 50 MCG/0.25ML DOSE 1 2020 207 complet ed [facility] [place] [facility] INFLUENZA, TRIVALENT, ADJUVANTED 2018 NONE 168 complet ed [place] PNEUMOCOCCAL CONJUGATE PCV 13 2017 133 complet ed [facility] PNEUMOCOCCAL POLYSACCHARID E [id number] 2015 33 complet ed [facility] Results Combined list of recent chemistry, [...] AM Reporting Lab: [facility] [place] [facility] [address] [facility] [address] Performing Lab: [facility] [place] [facility] [address] [facility] [address] [facility] [place] [facility] BASIC METABOLI C PANEL (fasting ) GLUCOSE [MASS/VOLU ME] IN SERUM OR PLASMA 95 mg/dL 65 - 100 10/14 Specimen Type: SERUM No comment entered. Ordering Provider: Madelaine SAHA Report Released Date/Time: Oct 15, 2023 11:05 AM Reporting Lab: [facility] [place] [facility] [address] [facility] [address] Performing Lab: [facility] [place] [address] [address] [facility] [place] [facility] BASIC METABOLI C PANEL (fasting ) SODIUM [MOLES/VOL UME] IN SERUM OR PLASMA 141 mmol/L 135 - 145 10/14 Specimen Type: SERUM No comment entered. Ordering Provider: Madelaine SAHA Report Released Date/Time: Oct 15, 2023 11:05 AM Reporting Lab: [facility] [place] [address] [address] Performing Lab: [facility] [place] [address] [address] [facility] [place] [facility] BASIC METABOLI C PANEL (fasting ) POTASSIUM [MOLES/VOL UME] IN SERUM OR PLASMA 4.2 mmol/L 3.5 - 5.0 10/14 Specimen Type: SERUM No comment entered. Ordering Provider: Madelaine SAHA Report Released Date/Time: Oct 15, 2023 11:05 AM Reporting Lab: [facility] [place] [facility] [address] [facility] [address] Performing Lab: [facility] [place] [address] [address] [facility] [place] [facility] BASIC METABOLI C PANEL (fasting ) CHLORIDE [MOLES/VOL UME] IN SERUM OR PLASMA 106 mmol/L 100 - 110 10/14 Specimen Type: SERUM No comment entered. Ordering Provider: Madelaine SAHA Report Released Date/Time: Oct 15, 2023 11:05 AM Reporting Lab: [facility] [address] [address] Performing Lab: [facility] [address] [facility] BASIC METABOLI C PANEL (fasting ) CARBON DIOXIDE, TOTAL [MOLES/VOL UME] IN SERUM OR PLASMA 25 meq/L 20 - 30 10/14 Specimen Type: SERUM No comment entered. Ordering Provider: Madelaine SAHA Report Released Date/Time: Oct 15, 2023 11:05 AM Reporting Lab: [facility] [address] Performing Lab: [facility] [address] [facility] BASIC METABOLI C PANEL (fasting ) CREATININE [MASS/VOLU ME] IN SERUM OR PLASMA 1.37 mg/dL 0.50 - 1.40 10/14 Specimen Type: SERUM No comment entered. Ordering Provider: Madelaine SAHA Report Released Date/Time: Oct 15, 2023 11:05 AM Reporting Lab: [facility] [address] [address] Performing Lab: [facility] [address] [facility] BASIC METABOLI C PANEL (fasting ) GLOMERULAR FILTRATION RATE/1.73 SQ M.PREDICTE D [VOLUME RATE/AREA] IN SERUM, PLASMA OR BLOOD BY CREATININE -BASED FORMULA (CKD-EPI 2020) 53 mL/min 60 10/14 L Specimen Type: SERUM No comment entered. Ordering Provider: VANWAGNER,W ILLIAM F Report Released Date/Time: Oct 15, 2023 11:05 AM Reporting Lab: [facility] [place] [facility] [address] [facility] [address] Performing Lab: [facility] [place] [facility] [address] [facility] [address] [facility] [place] [facility] LIVER FUNCTION PROTEIN [MASS/VOLU ME] IN SERUM OR PLASMA 7.1 g/dL 6.0 - 8.3 10/14 Specimen Type: SERUM No comment entered. Ordering Provider: Madelaine SAHA Report Released Date/Time: Oct 15, 2023 11:05 AM Reporting Lab: [facility] [place] [facility] [address] [facility] [address] Performing Lab: [facility] [place] [facility] [address] [facility] [address] [facility] [place] [facility] LIVER FUNCTION ALBUMIN [MASS/VOLU ME] IN SERUM OR PLASMA 3.8 g/dL 3.5 - 5.0 10/14 Specimen Type: SERUM No comment entered. Ordering Provider: Madelaine SAHA Report Released Date/Time: Oct 15, 2023 11:05 AM Reporting Lab: [facility] [place] [facility] [address] [facility] [address] Performing Lab: [facility] [place] [facility] [address] [facility] [address] [facility] [place] [facility] LIVER FUNCTION ALKALINE PHOSPHATAS E [ENZYMATIC ACTIVITY/V OLUME] IN SERUM OR PLASMA 50 U/L 40 - 150 10/14 Specimen Type: SERUM No comment entered. Ordering Provider: Madelaine SAHA Report Released Date/Time: Oct 15, 2023 11:05 AM Reporting Lab: [facility] [place] [facility] [address] [facility] [address] Performing Lab: [facility] [place] [facility] [address] [facility] [address] [facility] [place] [facility] LIVER FUNCTION ASPARTATE AMINOTRANS FERASE [ENZYMATIC ACTIVITY/V OLUME] IN SERUM OR PLASMA 15 U/L 5 - 34 10/14 Specimen Type: SERUM No comment entered. Ordering Provider: Madelaine SAHA Report Released Date/Time: Oct 15, 2023 11:05 AM Reporting Lab: [facility] [place] [facility] [address] [facility] [address] Performing Lab: [facility] [place] [facility] [address] [facility] [address] [facility] [place] [facility] LIVER FUNCTION ALANINE AMINOTRANS FERASE [ENZYMATIC ACTIVITY/V OLUME] IN SERUM OR PLASMA 26 U/L 10/14 Specimen Type: SERUM No comment entered. Ordering Provider: Madelaine SAHA Report Released Date/Time: Oct 15, 2023 11:05 AM Reporting Lab: [facility] [place] [address] [address] Performing Lab: [facility] [place] [address] [address] [facility] [place] [facility] LIVER FUNCTION BILIRUBIN. TOTAL [MASS/VOLU ME] IN SERUM OR PLASMA 0.5 mg/dL 0.2 - 1.2 10/14 Specimen Type: SERUM No comment entered. Ordering Provider: Madelaine SAHA Report Released Date/Time: Oct 15, 2023 11:05 AM Reporting Lab: [facility] [place] [address] [address] Performing Lab: [facility] [place] [facility] [address] [facility] [address] [facility] [place] [facility] LIPID PANEL FASTING CHOLESTERO L [MASS/VOLU ME] IN SERUM OR PLASMA 179 mg/dL 10/14 Specimen Type: SERUM No comment entered. Ordering Provider: Madelaine SAHA Report Released Date/Time: Oct 15, 2023 11:05 AM Reporting Lab: [facility] [place] [facility] [address] [facility] [address] Performing Lab: [facility] [place] [address] [address] [facility] [place] [facility] LIPID PANEL FASTING TRIGLYCERI DE [MASS/VOLU ME] IN SERUM OR PLASMA 123 mg/dL 0 - 150 10/14 Specimen Type: SERUM No comment entered. Ordering Provider: Madelaine SAHA Report Released Date/Time: Oct 15, 2023 11:05 AM Reporting Lab: [facility] [place] [facility] [address] [facility] [address] Performing Lab: [facility] [place] [facility] [address] [facility] [address] [facility] [place] [facility] LIPID PANEL FASTING CHOLESTERO L IN LDL [MASS/VOLU ME] IN SERUM OR PLASMA BY CALCULAGIOO N 111 mg/dL 0 - 129 10/14 Specimen Type: SERUM No comment entered. Ordering Provider: Madelaine SAHA Report Released Date/Time: Oct 15, 2023 11:05 AM Reporting Lab: [facility] [place] [address] [address] Performing Lab: [facility] [place] [facility] [address] [facility] [address] [facility] [place] [facility] LIPID PANEL FASTING CHOLESTERO L.TOTAL/CH OLESTEROL IN HDL [MASS RATIO] IN SERUM OR PLASMA 4.2 10/14 Specimen Type: SERUM No comment entered. Ordering Provider: Madelaine SAHA Report Released Date/Time: Oct 15, 2023 11:05 AM Reporting Lab: [facility] [place] [facility] [address] [facility] [address] Performing Lab: [facility] [place] [facility] [address] [facility] [address] [facility] [place] [facility] LIPID PANEL FASTING CHOLESTERO L IN HDL [MASS/VOLU ME] IN SERUM OR PLASMA 43 mg/dL 40 - 60 10/14 Specimen Type: SERUM No comment entered. Ordering Provider: Madelaine SAHA Report Released Date/Time: Oct 15, 2023 11:05 AM Reporting Lab: [facility] [place] [facility] [address] [facility] [address] Performing Lab: [facility] [place] [facility] [address] [facility] [address] [facility] [place] [facility] IRON & TIBC PANEL IRON BINDING CAPACITY [MASS/VOLU ME] IN SERUM OR PLASMA 338 ug/dL 204 - 475 10/14 Specimen Type: SERUM No comment entered. Ordering Provider: Madelaine SAHA Report Released Date/Time: Oct 15, 2023 11:05 AM Reporting Lab: [facility] [place] [facility] [address] [facility] [address] Performing Lab: [facility] [place] [facility] [address] [facility] [address] [facility] [place] [facility] IRON & TIBC PANEL IRON [MASS/VOLU ME] IN SERUM OR PLASMA 51 ug/dL 40 - 160 10/14 Specimen Type: SERUM No comment entered. Ordering Provider: Madelaine SAHA Report Released Date/Time: Oct 15, 2023 11:05 AM Reporting Lab: [facility] [place] [facility] [address] [facility] [address] Performing Lab: [facility] [place] [facility] [address] [facility] [address] [facility] [place] [facility] IRON & TIBC PANEL IRON/IRON BINDING CAPACITY.T OTAL [MASS RATIO] IN SERUM OR PLASMA 15.1 20.0 - 50.0 10/14 L Specimen Type: SERUM No comment entered. Ordering Provider: Madelaine SAHA Report Released Date/Time: Oct 15, 2023 11:05 AM Reporting Lab: [facility] [place] [facility] [address] [facility] [address] Performing Lab: [facility] [place] [facility] [address] [facility] [address] [facility] [place] [facility] CBC AND DIFF (AUTO) LEUKOCYTES [#/VOLUME] IN BLOOD BY AUTOMATED COUNT 6.76 10*3/uL 4.50 - 11.00 10/14 Specimen Type: BLOOD No comment entered. Ordering Provider: Madelaine SAHA Report Released Date/Time: Oct 15, 2023 11:05 AM Reporting Lab: [facility] [place] [facility] [address] [facility] [address] Performing Lab: [facility] [place] [facility] [address] [facility] [address] [facility] [place] [facility] CBC AND DIFF (AUTO) ERYTHROCYT ES [#/VOLUME] IN BLOOD BY AUTOMATED COUNT 5.57 10*6/uL 4.23 - 5.66 10/14 Specimen Type: BLOOD No comment entered. Ordering Provider: Madelaine SAHA Report Released Date/Time: Oct 15, 2023 11:05 AM Reporting Lab: [facility] [place] [facility] [address] [facility] [address] Performing Lab: [facility] [place] [facility] [address] [facility] [address] [facility] [place] [facility] CBC AND DIFF (AUTO) HEMOGLOBIN [MASS/VOLU ME] IN BLOOD 14.9 g/dL 12.8 - 17 10/14 Specimen Type: BLOOD No comment entered. Ordering Provider: Madelaine SAHA Report Released Date/Time: Oct 15, 2023 11:05 AM Reporting Lab: [facility] [place] [address] [address] Performing Lab: [facility] [place] [facility] [address] [facility] [address] [facility] [place] [facility] CBC AND DIFF (AUTO) HEMATOCRIT [VOLUME FRACTION] OF BLOOD BY AUTOMATED COUNT 47.5 39.2 - 50.4 10/14 Specimen Type: BLOOD No comment entered. Ordering Provider: Madelaine SAHA Report Released Date/Time: Oct 15, 2023 11:05 AM Reporting Lab: [facility] [place] [address] [address] Performing Lab: [facility] [place] [address] [address] [facility] [place] [facility] CBC AND DIFF (AUTO) MCV [ENTITIC VOLUME] BY AUTOMATED COUNT 85.3 fL 82 - 99 10/14 Specimen Type: BLOOD No comment entered. Ordering Provider: Madelaine SAHA Report Released Date/Time: Oct 15, 2023 11:05 AM Reporting Lab: [facility] [place] [facility] [address] [facility] [address] Performing Lab: [facility] [place] [facility] [address] [facility] [address] [facility] [place] [facility] CBC AND DIFF (AUTO) MCHC [MASS/VOLU ME] BY AUTOMATED COUNT 31.4 g/dL 30.8 - 35.1 10/14 Specimen Type: BLOOD No comment entered. Ordering Provider: Madelaine SAHA Report Released Date/Time: Oct 15, 2023 11:05 AM Reporting Lab: [facility] [place] [address] [address] Performing Lab: [facility] [place] [address] [address] [facility] [place] [facility] CBC AND DIFF (AUTO) PLATELETS [#/VOLUME] IN BLOOD BY AUTOMATED COUNT 243 10*3/uL 140 - 360 10/14 Specimen Type: BLOOD No comment entered. Ordering Provider: Madelaine SAHA Report Released Date/Time: Oct 15, 2023 11:05 AM Reporting Lab: [facility] [place] [facility] [address] [facility] [address] Performing Lab: [facility] [place] [address] [address] [facility] [place] [facility] CBC AND DIFF (AUTO) ERYTHROCYT E DISTRIBUTI ON WIDTH [RATIO] BY AUTOMATED COUNT 15.0 12.0 - 16.0 10/14 Specimen Type: BLOOD No comment entered. Ordering Provider: Madelaine SAHA Report Released Date/Time: Oct 15, 2023 11:05 AM Reporting Lab: [facility] [place] [facility] [address] [facility] [address] Performing Lab: [facility] [place] [facility] [address] [facility] [address] [facility] CBC AND DIFF (AUTO) MONOCYTES [#/VOLUME] IN BLOOD BY AUTOMATED COUNT 0.49 10*3/uL 0.30 - 1.10 10/14 Specimen Type: BLOOD No comment entered. Ordering Provider: Madelaine SAHA Report Released Date/Time: Oct 15, 2023 11:05 AM Reporting Lab: [facility] [place] [facility] [address] [facility] [address] Performing Lab: [facility] [place] [facility] [address] [facility] [address] [facility] CBC AND DIFF (AUTO) MCH [ENTITIC MASS] BY AUTOMATED COUNT 26.8 pg 26.2 - 32.6 10/14 Specimen Type: BLOOD No comment entered. Ordering Provider: Madelaine SAHA Report Released Date/Time: Oct 15, 2023 11:05 AM Reporting Lab: [facility] [place] [address] [address] Performing Lab: [facility] [place] [address] [address] [facility] CBC AND DIFF (AUTO) NEUTROPHIL S/100 LEUKOCYTES IN BLOOD BY AUTOMATED COUNT 67.8 43.7 - 75.8 10/14 Specimen Type: BLOOD No comment entered. Ordering Provider: Madelaine SAHA Report Released Date/Time: Oct 15, 2023 11:05 AM Reporting Lab: [facility] [place] [address] [address] Performing Lab: [facility] [place] [address] [address] [facility] [place] CBC AND DIFF (AUTO) LYMPHOCYTE S/100 LEUKOCYTES IN BLOOD BY AUTOMATED COUNT 21.9 14.0 - 42.3 10/14 Specimen Type: BLOOD No comment entered. Ordering Provider: Madelaine SAHA Report Released Date/Time: Oct 15, 2023 11:05 AM Reporting Lab: [facility] [place] [facility] [address] [facility] [address] Performing Lab: [facility] [place] [facility] [address] [facility] [address] [facility] CBC AND DIFF (AUTO) MONOCYTES/ 100 LEUKOCYTES IN BLOOD BY AUTOMATED COUNT 7.2 5.1 - 13.7 10/14 Specimen Type: BLOOD No comment entered. Ordering Provider: Madelaine SAHA Report Released Date/Time: Oct 15, 2023 11:05 AM Reporting Lab: [facility] [place] [facility] [address] [facility] [address] Performing Lab: [facility] [place] [facility] [address] [facility] [address] [facility] [place] CBC AND DIFF (AUTO) EOSINOPHIL S/100 LEUKOCYTES IN BLOOD BY AUTOMATED COUNT 2.1 0.4 - 6.8 10/14 Specimen Type: BLOOD No comment entered. Ordering Provider: Madelaine SAHA Report Released Date/Time: Oct 15, 2023 11:05 AM Reporting Lab: [facility] [place] [facility] [address] [facility] [address] Performing Lab: [facility] [place] [facility] [address] [facility] [address] [facility] CBC AND DIFF (AUTO) BASOPHILS/ 100 LEUKOCYTES IN BLOOD BY AUTOMATED COUNT 0.6 0.1 - 2.0 10/14 Specimen Type: BLOOD No comment entered. Ordering Provider: Madelaine SAHA Report Released Date/Time: Oct 15, 2023 11:05 AM Reporting Lab: [facility] [place] [facility] [address] [facility] [address] Performing Lab: [facility] [place] [facility] [address] [facility] [address] [facility] CBC AND DIFF (AUTO) NEUTROPHIL S [#/VOLUME] IN BLOOD BY AUTOMATED COUNT 4.58 10*3/uL 2.20 - 7.60 10/14 Specimen Type: BLOOD No comment entered. Ordering Provider: Madelaine SAHA Report Released Date/Time: Oct 15, 2023 11:05 AM Reporting Lab: [facility] [place] [address] [address] Performing Lab: [facility] [place] [address] [address] [facility] [place] [facility] CBC AND DIFF (AUTO) LYMPHOCYTE S [#/VOLUME] IN BLOOD BY AUTOMATED COUNT 1.48 10*3/uL 1.00 - 3.20 10/14 Specimen Type: BLOOD No comment entered. Ordering Provider: Madelaine SAHA Report Released Date/Time: Oct 15, 2023 11:05 AM Reporting Lab: [facility] [place] [address] [address] Performing Lab: [facility] [place] [address] [address] [facility] [place] [facility] CBC AND DIFF (AUTO) EOSINOPHIL S [#/VOLUME] IN BLOOD BY AUTOMATED COUNT 0.14 10*3/uL 0.03 - 0.44 10/14 Specimen Type: BLOOD No comment entered. Ordering Provider: Madelaine SAHA Report Released Date/Time: Oct 15, 2023 11:05 AM Reporting Lab: [facility] [place] [address] [address] Performing Lab: [facility] [place] [address] [address] [facility] [place] [facility] CBC AND DIFF (AUTO) BASOPHILS [#/VOLUME] IN BLOOD BY AUTOMATED COUNT 0.04 10*3/uL 0.01 - 0.13 10/14 Specimen Type: BLOOD No comment entered. Ordering Provider: Madelaine SAHA Report Released Date/Time: Oct 15, 2023 11:05 AM Reporting Lab: [facility] [place] [facility] [address] [facility] [address] Performing Lab: [facility] [place] [facility] [address] [facility] [address] [facility] CBC AND DIFF (AUTO) IMMATURE GRANULOCYT ES/100 LEUKOCYTES IN BLOOD BY AUTOMATED COUNT 0.4 0.0 - 0.7 10/14 Specimen Type: BLOOD No comment entered. Ordering Provider: Madelaine SAHA Report Released Date/Time: Oct 15, 2023 11:05 AM Reporting Lab: [facility] [place] [facility] [address] [facility] [address] Performing Lab: [facility] [place] [facility] [address] [facility] [address] [facility] [place] [facility] CBC AND DIFF (AUTO) IMMATURE GRANULOCYT ES [#/VOLUME] IN BLOOD 0.03 10*3/uL 0.00 - 0.06 10/14 Specimen Type: BLOOD No comment entered. Ordering Provider: Maedlaine SAHA Report Released Date/Time: Oct 15, 2023 11:05 AM Reporting Lab: [facility] [place] [address] [address] Performing Lab: [facility] [place] [facility] [address] [facility] [address] [facility] [place] [facility] CBC LEUKOCYTES [#/VOLUME] IN BLOOD BY AUTOMATED COUNT 6.94 10*3/uL 4.50 - 11.00 05/24 Specimen Type: BLOOD No comment entered. Ordering Provider: Madelaine SAHA Report Released Date/Time: Apr 14, 2023 08:29 AM Reporting Lab: [facility] [place] [facility] [address] [facility] [address] Performing Lab: [facility] [place] [address] [address] [facility] [place] [facility] CBC ERYTHROCYT ES [#/VOLUME] IN BLOOD BY AUTOMATED COUNT 4.59 10*6/uL 4.23 - 5.66 05/24 Specimen Type: BLOOD No comment entered. Ordering Provider: Madelaine SAHA Report Released Date/Time: Apr 14, 2023 08:29 AM Reporting Lab: [facility] [place] [facility] [address] [facility] [address] Performing Lab: [facility] [place] [facility] [address] [facility] [address] [facility] [place] [facility] CBC HEMOGLOBIN [MASS/VOLU ME] IN BLOOD 12.9 g/dL 12.8 - 17 05/24 Specimen Type: BLOOD No comment entered. Ordering Provider: Madelaine SAHA Report Released Date/Time: Apr 14, 2023 08:29 AM Reporting Lab: [facility] [place] [facility] [address] [facility] [address] Performing Lab: [facility] [place] [facility] [address] [facility] [address] [facility] [place] [facility] CBC HEMATOCRIT [VOLUME FRACTION] OF BLOOD BY AUTOMATED COUNT 40.6 39.2 - 50.4 05/24 Specimen Type: BLOOD No comment entered. Ordering Provider: Madelaine SAHA Report Released Date/Time: Apr 14, 2023 08:29 AM Reporting Lab: [facility] [place] [facility] [address] [facility] [address] Performing Lab: [facility] [place] [facility] [address] [facility] [address] [facility] [place] [facility] CBC MCV [ENTITIC VOLUME] BY AUTOMATED COUNT 88.5 fL 82 - 99 05/24 Specimen Type: BLOOD No comment entered. Ordering Provider: Madelaine SAHA Report Released Date/Time: Apr 14, 2023 08:29 AM Reporting Lab: [facility] [place] [facility] [address] [facility] [address] Performing Lab: [facility] [place] [facility] [address] [facility] [address] [facility] [place] [facility] CBC MCHC [MASS/VOLU ME] BY AUTOMATED COUNT 31.8 g/dL 30.8 - 35.1 05/24 Specimen Type: BLOOD No comment entered. Ordering Provider: Madelaine SAHA Report Released Date/Time: Apr 14, 2023 08:29 AM Reporting Lab: [facility] [place] [facility] [address] [facility] [address] Performing Lab: [facility] [place] [facility] [address] [facility] [address] [facility] [place] [facility] CBC PLATELETS [#/VOLUME] IN BLOOD BY AUTOMATED COUNT 309 10*3/uL 140 - 360 05/24 Specimen Type: BLOOD No comment entered. Ordering Provider: Madelaine SAHA Report Released Date/Time: Apr 14, 2023 08:29 AM Reporting Lab: [facility] [place] [address] [address] Performing Lab: [facility] [place] [facility] [address] [facility] [address] [facility] [place] [facility] CBC ERYTHROCYT E DISTRIBUTI ON WIDTH [RATIO] BY AUTOMATED COUNT 14.0 12.0 - 16.0 05/24 Specimen Type: BLOOD No comment entered. Ordering Provider: Madelaine SAHA Report Released Date/Time: Apr 14, 2023 08:29 AM Reporting Lab: [facility] [place] [address] [address] Performing Lab: [facility] [place] [facility] [address] [facility] [address] [facility] [place] [facility] CBC MCH [ENTITIC MASS] BY AUTOMATED COUNT 28.1 pg 26.2 - 32.6 05/24 Specimen Type: BLOOD No comment entered. Ordering Provider: Madelaine SAHA Report Released Date/Time: Apr 14, 2023 08:29 AM Reporting Lab: [facility] [place] [facility] [address] [facility] [address] Performing Lab: [facility] [place] [address] [address] [facility] [place] URINALYS IS COLOR OF URINE Light-Ye llow 05/24 Specimen Type: URINE Comment: If Glucose = >500 and Ketones are positive, please alert the Physician. Ordering Provider: Madelaine SAHA Report Released Date/Time: Apr 26, 2023 04:38 PM Reporting Lab: [facility] [place] [facility] [address] [facility] [address] Performing Lab: [facility] [place] [facility] [address] [facility] [address] [facility] [place] URINALYS IS APPEARANCE OF URINE Clear 05/24 Specimen Type: URINE Comment: If Glucose = >500 and Ketones are positive, please alert the Physician. Ordering Provider: Madelaine SAHA Report Released Date/Time: Apr 26, 2023 04:38 PM Reporting Lab: [facility] [place] [facility] [address] [facility] [address] Performing Lab: [facility] [place] [facility] [address] [facility] [address] [facility] [place] URINALYS IS GLUCOSE [MASS/VOLU ME] IN URINE NEGATIVE mg/dL 05/24 Specimen Type: URINE Comment: If Glucose = >500 and Ketones are positive, please alert the Physician. Ordering Provider: Madelaine SAHA Report Released Date/Time: Apr 26, 2023 04:38 PM Reporting Lab: [facility] [place] [facility] [address] [facility] [address] Performing Lab: [facility] [place] [facility] [address] [facility] [address] [facility] [place] URINALYS IS KETONES [MASS/VOLU ME] IN URINE BY TEST STRIP NEGATIVE mg/dL 05/24 Specimen Type: URINE Comment: If Glucose = >500 and Ketones are positive, please alert the Physician. Ordering Provider: Madelaine SAHA Report Released Date/Time: Apr 26, 2023 04:38 PM Reporting Lab: [facility] [place] [facility] [address] [facility] [address] Performing Lab: [facility] [place] [facility] [address] [facility] [address] [facility] [place] URINALYS IS ERYTHROCYT ES [PRESENCE] IN URINE SEDIMENT BY LIGHT MICROSCOPY NEGATIVE mg/dL 05/24 Specimen Type: URINE Comment: If Glucose = >500 and Ketones are positive, please alert the Physician. Ordering Provider: Madelaine SAHA Report Released Date/Time: Apr 26, 2023 04:38 PM Reporting Lab: [facility] [place] [facility] [address] [facility] [address] Performing Lab: [facility] [place] [facility] [address] [facility] [address] [facility] [place] [facility] URINALYS IS PROTEIN [MASS/VOLU ME] IN URINE BY TEST STRIP NEGATIVE mg/dL 05/24 Specimen Type: URINE Comment: If Glucose = >500 and Ketones are positive, please alert the Physician. Ordering Provider: Madelaine SAHA Report Released Date/Time: Apr 26, 2023 04:38 PM Reporting Lab: [facility] [place] [facility] [address] [facility] [address] Performing Lab: [facility] [place] [facility] [address] [facility] [address] [facility] [place] URINALYS IS NITRITE [PRESENCE] IN URINE NEGATIVE mg/dL 05/24 Specimen Type: URINE Comment: If Glucose = >500 and Ketones are positive, please alert the Physician. Ordering Provider: Madelaine SAHA Report Released Date/Time: Apr 26, 2023 04:38 PM Reporting Lab: [facility] [place] [facility] [address] [facility] [address] Performing Lab: [facility] [place] [facility] [address] [facility] [address] [facility] [place] URINALYS IS BILIRUBIN. TOTAL [PRESENCE] IN URINE NEGATIVE mg/dL 05/24 Specimen Type: URINE Comment: If Glucose = >500 and Ketones are positive, please alert the Physician. Ordering Provider: Madelaine SAHA Report Released Date/Time: Apr 26, 2023 04:38 PM Reporting Lab: [facility] [place] [facility] [address] [facility] [address] Performing Lab: [facility] [address] [facility] URINALYS IS SPECIFIC GRAVITY OF URINE BY REFRACTOME TRY 1.017 1.016 - 1.022 05/24 Specimen Type: URINE Comment: If Glucose = >500 and Ketones are positive, please alert the Physician. Ordering Provider: Madelaine SAHA Report Released Date/Time: Apr 26, 2023 04:38 PM Reporting Lab: [facility] [address] Performing Lab: [facility] [address] [facility] [address] [facility] URINALYS IS PH OF URINE BY TEST STRIP 6.0 5.0 - 9.0 05/24 Specimen Type: URINE Comment: If Glucose = >500 and Ketones are positive, please alert the Physician. Ordering Provider: Madelaine SAHA Report Released Date/Time: Apr 26, 2023 04:38 PM Reporting Lab: [facility] [place] [address] [address] Performing Lab: [facility] [address] [facility] URINALYS IS UROBILINOG EN [MASS/VOLU ME] IN URINE BY TEST STRIP <2.0mg/d L <2.0 - 2.0 05/24 Specimen Type: URINE Comment: If Glucose = >500 and Ketones are positive, please alert the Physician. Ordering Provider: Madelaine SAHA Report Released Date/Time: Apr 26, 2023 04:38 PM Reporting Lab: [facility] [place] [facility] [address] [facility] [address] Performing Lab: [facility] [place] [facility] [address] [facility] [address] [facility] [place] [facility] URINALYS IS LEUKOCYTE ESTERASE [PRESENCE] IN URINE BY TEST STRIP NEGATIVE 05/24 Specimen Type: URINE Comment: If Glucose = >500 and Ketones are positive, please alert the Physician. Ordering Provider: Madelaine SAHA Report Released Date/Time: Apr 26, 2023 04:38 PM Reporting Lab: [facility] [place] [facility] [address] [facility] [address] Performing Lab: [facility] [place] [facility] [address] [facility] [address] [facility] [place] [facility] MICROALB UMIN CREATINI NE RATIO PANEL MICROALBUM IN/CREATIN INE [MASS RATIO] IN URINE 21.1 mg/g 0 - 29.9 05/24 Specimen Type: URINE No comment entered. Ordering Provider: Madelaine SAHA Report Released Date/Time: Apr 26, 2023 04:38 PM Reporting Lab: [facility] [place] [facility] [address] [facility] [address] Performing Lab: [facility] [place] [facility] [address] [facility] [address] [facility] [place] [facility] MICROALB UMIN CREATINI NE RATIO PANEL MICROALBUM IN [MASS/VOLU ME] IN URINE 1.9 mg/dL 05/24 Specimen Type: URINE No comment entered. Ordering Provider: Madelaine SAHA Report Released Date/Time: Apr 26, 2023 04:38 PM Reporting Lab: [facility] [place] [facility] [address] [facility] [address] Performing Lab: [facility] [place] [facility] [address] [facility] [address] [facility] [place] [facility] MICROALB UMIN CREATINI NE RATIO PANEL CREATININE [MASS/VOLU ME] IN URINE 89.96 mg/dL 05/24 Specimen Type: URINE No comment entered. Ordering Provider: Madelaine SAHA Report Released Date/Time: Apr 26, 2023 04:38 PM Reporting Lab: [facility] [place] [facility] [address] [facility] [address] Performing Lab: [facility] [place] [facility] [address] [facility] [address] [facility] [place] [facility] IRON & TIBC PANEL IRON BINDING CAPACITY [MASS/VOLU ME] IN SERUM OR PLASMA 347 ug/dL 204 - 475 05/24 Specimen Type: SERUM No comment entered. Ordering Provider: Madelaine SAHA Report Released Date/Time: Apr 26, 2023 04:38 PM Reporting Lab: [facility] [place] [address] [address] Performing Lab: [facility] [place] [address] [address] [facility] [place] [facility] IRON & TIBC PANEL IRON [MASS/VOLU ME] IN SERUM OR PLASMA 41 ug/dL 40 - 160 05/24 Specimen Type: SERUM No comment entered. Ordering Provider: Madelaine SAHA Report Released Date/Time: Apr 26, 2023 04:38 PM Reporting Lab: [facility] [place] [address] [address] Performing Lab: [facility] [place] [address] [address] [facility] [place] [facility] IRON & TIBC PANEL IRON/IRON BINDING CAPACITY.T OTAL [MASS RATIO] IN SERUM OR PLASMA 11.8 20.0 - 50.0 05/24 L Specimen Type: SERUM No comment entered. Ordering Provider: Madelaine SAHA Report Released Date/Time: Apr 26, 2023 04:38 PM Reporting Lab: [facility] [place] [address] [address] Performing Lab: [facility] [place] [facility] [address] [facility] [address] [facility] BASIC METABOLI C PANEL (fasting ) UREA NITROGEN [MASS/VOLU ME] IN SERUM OR PLASMA 17 mg/dL 7 - 25 05/24 Specimen Type: SERUM No comment entered. Ordering Provider: Madelaine SAHA Report Released Date/Time: Apr 26, 2023 04:38 PM Reporting Lab: [facility] [address] [facility] [address] Performing Lab: [facility] [address] [facility] [address] [facility] BASIC METABOLI C PANEL (fasting ) GLUCOSE [MASS/VOLU ME] IN SERUM OR PLASMA 95 mg/dL 65 - 100 05/24 Specimen Type: SERUM No comment entered. Ordering Provider: Madelaine SAHA Report Released Date/Time: Apr 26, 2023 04:38 PM Reporting Lab: [facility] [address] [facility] [address] Performing Lab: [facility] [address] [facility] BASIC METABOLI C PANEL (fasting ) SODIUM [MOLES/VOL UME] IN SERUM OR PLASMA 142 mmol/L 135 - 145 05/24 Specimen Type: SERUM No comment entered. Ordering Provider: Madelaine SAHA Report Released Date/Time: Apr 26, 2023 04:38 PM Reporting Lab: [facility] [address] [facility] [address] Performing Lab: [facility] [address] [facility] [address] [facility] BASIC METABOLI C PANEL (fasting ) POTASSIUM [MOLES/VOL UME] IN SERUM OR PLASMA 4.8 mmol/L 3.5 - 5.0 05/24 Specimen Type: SERUM No comment entered. Ordering Provider: Madelaine SAHA Report Released Date/Time: Apr 26, 2023 04:38 PM Reporting Lab: [facility] [place] [facility] [address] [facility] [address] Performing Lab: [facility] [place] [facility] [address] [facility] [address] [facility] [place] [facility] BASIC METABOLI C PANEL (fasting ) CHLORIDE [MOLES/VOL UME] IN SERUM OR PLASMA 107 mmol/L 100 - 110 05/24 Specimen Type: SERUM No comment entered. Ordering Provider: Madelaine SAHA Report Released Date/Time: Apr 26, 2023 04:38 PM Reporting Lab: [facility] [place] [address] [address] Performing Lab: [facility] [place] [address] [address] [facility] BASIC METABOLI C PANEL (fasting ) CARBON DIOXIDE, TOTAL [MOLES/VOL UME] IN SERUM OR PLASMA 24 meq/L 20 - 30 05/24 Specimen Type: SERUM No comment entered. Ordering Provider: Madelaine SAHA Report Released Date/Time: Apr 26, 2023 04:38 PM Reporting Lab: [facility] [place] [facility] [address] [facility] [address] Performing Lab: [facility] [place] [address] [address] [facility] [place] [facility] BASIC METABOLI C PANEL (fasting ) CREATININE [MASS/VOLU ME] IN SERUM OR PLASMA 1.49 mg/dL 0.50 - 1.40 05/24 H Specimen Type: SERUM No comment entered. Ordering Provider: Madelaine SAHA Report Released Date/Time: Apr 26, 2023 04:38 PM Reporting Lab: [facility] [place] [facility] [address] [facility] [address] Performing Lab: [facility] [place] [address] [address] [facility] [place] [facility] BASIC METABOLI C PANEL (fasting ) GLOMERULAR FILTRATION RATE/1.73 SQ M.PREDICTE D [VOLUME RATE/AREA] IN SERUM, PLASMA OR BLOOD BY CREATININE -BASED FORMULA (CKD-EPI 2020) 48 mL/min 60 05/24 L Specimen Type: SERUM No comment entered. Ordering Provider: Madelaine SAHA Report Released Date/Time: Apr 26, 2023 04:38 PM Reporting Lab: [facility] [place] [facility] [address] [facility] [address] Performing Lab: [facility] [place] [facility] [address] [facility] [address] [facility] [place] [facility] Vital Signs Combined list of inpatient and outpatient Vital Signs from [employer] of Defense and [employer] Affairs, ranging from 12 months to all on record, depending upon the facility. Vital Sign Value Date Comments Source SYSTOLIC BLOOD PRESSURE [id number] 10/25/19 14:37:52 [facility] [place] [facility] DIASTOLIC BLOOD PRESSURE 80 024 14:37:52 [facility] PULSE 70 10/25/2023 14:37:52 [facility] SYSTOLIC BLOOD PRESSURE 144 10/22/19 24 12:55:36 [facility] DIASTOLIC BLOOD PRESSURE 94 024 12:55:36 [facility] PULSE OXIMETRY 90 10/22/2023 12:55:36 [facility] WEIGHT 196 10/22/2023 12:55:36 [facility] BMI 32 kg/m2 10/22/2023 12:55:36 [facility] PAIN 0 10/22/2023 12:55:36 [facility] TEMPERATURE 98.1 10/22/2023 12:55:36 [facility] PULSE 88 10/22/2023 12:55:36 [facility] RESPIRATION 16 10/22/2023 12:55:36 [facility] Encounters Combined list of: 1) Encounters from Department of Veterans Affairs facilities going backup to the last 18 months, not all VA inpatient encounters are included; 2) Encounters from the Department of Defense facilities going backup to 280 months. Location Location Details Encounter Type Encounter Number Reason For Visit Attending Provider ADM Date DC Date Status Disposition Source [facility] Outpatient Encounter [id number] 04/08 [facility] WHEELCHAIR MNGMENT TRAINING [id number] Diagnos is: ICD-10- CM R26.89 Other abnorma lities of gait and mobilit y JOHN MCFADDEN ICA L 04/12 [facility] [place] OFFICE O/P EST LOW 20-29 MIN [id number] Diagnos is: ICD-10- CM M35.00 Sjogren syndrom e, unspeci fiVALENTÍN Soto 04/23 [facility] [place] Outpatient Encounter [id number] ALEXUS ZARAGOZA John 04/24 [place] [facility] [place] [place] [facility] Outpatient Encounter [id number] Diagnos is: ICD-10- CM Z04.89 Encount er for examina tion and observa tion for oth reasons PEÑA ZARAGOZACharlee Lopez 04/24 [place] [facility] Outpatient Encounter [id number] 04/27 [facility] [place] TTE W/DOPPLER COMPLETE [id number] Diagnos is: ICD-10- CM 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 CARDIOVERS ION ELECTRIC INT [id number] Diagnos is: ICD-10- CM Z13.9 Encount er for screeni ng, unspeci fied CHANI PISANO 05/03 [place] [facility] Outpatient Encounter [id number] 07/23 [facility] [place] Outpatient Encounter [id number] 08/10 [facility] QNHP OL DIG ASSMT&MGMT 5-10 [id number] Diagnos is: ICD-10- CM S91.009 A Unspeci fied open wound, unspeci fied ankle, initial encount er KATY THORPE 08/16 [facility] [place] Outpatient Encounter [id number] Diagnos is: ICD-10- CM F43.10 Post-tr aumatic stress disorde r, unspeci fied FEARING,PARVEZ Lopez 09/20 [facility] Outpatient Encounter [id number] FEARING,PARVEZ Lopez 09/20 [facility] [place] Outpatient Encounter [id number] 10/04 [facility] [place] OFFICE O/P EST LOW 20 MIN [id number] Diagnos is: ICD-10- CM J44.9 Chronic obstruc tive pulmona ry disease , unspeci fied VALENTÍN SAHA 10/21 [facility] OFF/OP EST MAY X REQ PHY/QHP [id number] Diagnos is: ICD-10- CM I10 Essenti al (primar y) hyperte Dionna Salinas M 10/24 [facility] COMPRE OPH EXAM NEW PT 1/> [id number] Diagnos is: ICD-10- CM H40.013 Open angle with borderl ine finding s, low risk, bilater al PARVEZ LEMUS 10/24 [facility] ECHO EXAM OF EYE THICKNESS [id number] Diagnos is: ICD-10- CM H40.013 Open angle with borderl ine finding s, low risk, bilater al PARVEZ LEMUS 10/24 [facility] FIT SPECTACLES MULTIFOCAL [id number] Diagnos is: ICD-10- CM Z46.0 Encount er for fit/adj st of spectac les and contact lenses PARVEZ LEMUS 10/25 [facility] Out[facility] Encounter [id number] 10/25 [facility] Out[facility] Encounter [id number] 11/23 [facility] Out[facility] Encounter [id number] 12/07 [facility] Out[facility] Encounter [id number] 12/09 [facility] Out[facility] Encounter [id number] 12/09 [facility] Out[facility] Encounter [id number] 01/23 [facility] QNHP OL DIG ASSMT&MGMT 5-10 [id number] Diagnos is: ICD-10- CM Z12.2 Encntr screen for maligna nt neoplas m of respira tory organs PUCHALSKYe, MIRELA L 01/23 [facility] Out[facility] En[facility] [id number] 01/31 [facility] Out[facility] Encounter [id number] 05/11 [facility] Out[facility] Encounter [id number] 05/16 [facility] QNHP OL DIG ASSMT&MGMT 5-10 [id number]. Diagnos is: ICD-10- CM R52 Pain, unspeci fied GDULA,LAURA A 05/26 [facility] Out[facility]counter [id number] 1.06/01 [facility] Social History Combined list of available smoking, tobacco, and other social history from Department of Defense and Veterans Affairs facilities. Social History Type Response Date Comment Sourc e Tobacco smoking status [facility] VA-TOBACCO USE FOR[facility] CIGARETTES [facility] of [facility] History of tobacco use NM-TOBACCO FORMER USER 01/22/2023 [facility] History of tobacco use NM-TOBACCO FORMER USER 02/17/2022 [facility] of [facility] < 5 YRS 06/22/2019 [facility] Plan of Care List of future care activities from [facility] facilities. Additional future care activities may be listed in the Assessment and Plan section. Date/Time Care Activity Care Activity Detail Facili ty 09/07/2024 AMBULATORY - MEDICINE AMBULATORY - MEDICI NE [facility] 10/20/2024 AMBULATORY - MEDICINE AMBULATORY - MEDICI NE [facility] Advance Directives List of completed, amended, or rescinded Advance Directives on record at [facility] facilities. An actual copy of the Directive is not included. Date Advance Directive Provider Source 10/26/2023 ADVANCE DIRECTIVE MARGARITA KRAFT [facility]
--- OUTSIDE RECORDS SUMMARY | 2024-08-31 12:28 | XMS_ITS | Patient Health Record ---
Author Organization [facility] Address [address] [place] [id number] Care Team Providers Care Radio Time Buyer Name Role Phone Lalitha MORALES, William Primary Care Provider Kong Nava Unavailable [phone] Arnav Limon Unavailable Unavailable Allergies No Known Allergies Reason For Referral No Information Medications Medication SIG (Take, Route, Frequency, Duration) Notes Start Date End Date Status Enbrel SureClick 50 MG/ML Subcutaneous Active Problems Problem Type SNOMED Code ICD Code Onset Dates Problem Status W/U Status Risk Notes Problem Skin ulcer of calf (926250792) Ulcer (skin exp) LEFT CALF (L97.221) Active confirmed Problem Varicose veins of lower extremity (37162590) Vikash Insuf (other compl) LEFT (I83.892) Active confirmed Problem Vikash Insuf (ulcer) LEFT CALF (I83.022) Active confirmed Plan Of Treatment No Information Insurance Providers Payer Name Payer Address Payer Phone Subscriber Number Group Number Insured Name Patient Relationship to Insured Coverage Start Date Coverage End Date [employer] [address] [place] [address] [id number] Sarath Gipson Self - patient is the insured [employer] [facility] PPO,EPO & Medigap [address] [place] [address] [id number] Farideh Gipson Spouse - patient is the spouse of the insured [employer] [address] [place] [id number] Sarath Gipson Self - patient is the insured 8
--- OUTSIDE RECORDS SUMMARY | 2024-08-31 12:28 | XMS_ITS | Clinical Summary ---
Author Organization [facility] Address [address] [place] [id number] Care Team Providers Care Medical Insurance Coder Name Role Phone Kia Stroud MD Primary Care Provider [phone] Social History Tobacco Use Types Packs/Day Years Used Date Smoking Tobacco: Never Assessed Sex and Gender Information Value Date Recorded Sex Assigned at Not on file Legal Sex Male 10:48 AM EDT Gender Identity Not on file Sexual Orientation Not on file Plan of Treatment Health Maintenance Due Date Last Done Comments Pneumococcal Vaccine: 65+ Ye ars (1 of 1 - PCV) 2010 Influenza Vaccine (#1) 2024 Hepatitis B Vaccine Aged Out No longe r eligible based on patient's age to complete this topic Insurance [employer] MEDICARE AENA MEDICARE Care Teams Medical Insurance Coder Relationship Specialty Start Date End Date Kia Stroud MD [facility] [address] [place], [place] PCP - General Internal Medicine 12/04/21
== END 2024-08-31 11:44 | disposition home or self-care (01) ==
PROVIDERS: PCP Internal Medicine; Visit Provider Nurse Practitioner Family
DX: G89.29 Other chronic pain (principal); M79.605 Pain in left leg; G62.9 Polyneuropathy, unspecified; Z79.891 Long term (current) use of opiate analgesic
CPT/HCPCS: 99213; G2211

== ENCOUNTER → 2024-08-31 11:06 | Outpatient (BNVA) | payer MEDICARE, SELFPAY | PROVIDERS: PCP Internal Medicine; Visit Provider Nurse Practitioner Family | DX: Z51.81 Encounter for therapeutic drug level monitoring (principal); F11.20 Opioid dependence, uncomplicated; S81.802A Unspecified open wound, left lower leg, initial encounter; M79.605 Pain in left leg; G62.9 Polyneuropathy, unspecified; L88 Pyoderma gangrenosum | CPT/HCPCS: 99212 ==

== ENCOUNTER 2024-09-04 10:06 | Outpatient (AMB) | payer MEDICARE, SELFPAY ==
[2024-09-04 10:25] VITALS: BP 128/76; PULSE 71; O2SAT 92; BMI 30.4
--- NOTE | 2024-09-04 10:25 | A.OFFPC_ITS ---
Vital Signs 09/04/24 10:25 Height 5 ft 6 in Weight 188 lb 4.396 oz BMI 30.4 BP 128/76 Blood Pressure Location Lt brachial Position Sitting Pulse 71 Pulse Source Pulse Oximeter Pulse Oximetry (%) 92 Oxygen Delivery Method Room Air Intake Visit Reasons: Pyoderma gangrnosum Allergies heparin (porcine) Allergy (Severe, Verified 09/04/24 10:25) HIT Tobacco use date assessed: 09/04/24 Fall risk assessment: No Falls in past year Last assessed Fall Risk: 09/04/24 Dental Screening Dental Screen Date: 09/04/24 Did you have a dental visit in the last 12 months?: Yes Did you have a dental problem in the last 6 months where you did not have access to dental care?: No Was dental information given to patient?: Patient has dentist [facility] Medical History MDD (major depressive disorder), single episode Pressure injury of buttock, stage 1 Deep vein thrombosis 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 Acute pulmonary embolism with acute cor pulmonale Acute pulmonary embolism Cardiac arrest CKD (chronic kidney disease) stage 3, GFR 30-59 ml/min Sjogren's disease Leg pain, bilateral Elevated serum creatinine COPD (chronic obstructive pulmonary disease) HTN (hypertension) Rheumatoid arthritis Chronic ulcer of leg Surgical History History of ankle surgery History of hernia repair History of left knee replacement Family History Sister Breast cancer Father Aneurysm Mother Angina at rest Other No family history of coronary artery disease Social History Household Members: Spouse Housing: House Do you presently have visiting nurse or other home services: No Alcohol intake: current Alcohol intake frequency: holidays/special occasions only Comment: restraints Patient Tobacco Use Status: Former Tobacco user Tobacco use type: Cigarette Cigarette Packs Per Day: 1 Years Smoked: quit + years e-Cigarette/Vaping Use: Never Used Second Hand Smoke Exposure: No Advance Directives Date on File: 12/23/21 service: Yes Current occupational status: retired Cognitive needs: Yes (cane) Hearing needs: No Vision needs: Yes (Pt wear glasses. ) Questionnaire PHQ-9 Over the last 2 weeks, how often have you been bothered by any of the following problems? 1. Little interest or pleasure in doing things: not at all 2. Feeling down, depressed, or hopeless: not at all 3. Trouble falling or staying asleep, or sleeping too much: not at all 4. Feeling tired or having little energy: not at all 5. Poor appetite or overeating: not at all 6. Feeling bad about yourself - or that you are a failure or have let yourself or your family down: not at all 7. Trouble concentrating on things, such as reading the newspaper or watching television: not at all 8. Moving or speaking so slowly that other people could have noticed. Or the opposite - being so fidgety or restless that you have been moving around a lot more than usual: not at all 9. Thoughts that you would be better off or of hurting yourself in some way: not at all Total score: 0 Depression Screening Interpretation: Negative Depression Screening Done: Yes Source: Developed by Drs. Ronal Rivero, Cecelia Cortez, Johny Ocasio and colleagues, with an educational samantha from [employer]. Thrive Questionnaire Date Thrive assessed: 09/04/24 I am a: Patient What is your living situation today?: I have a steady place to live Within the past 12 months, did the food you bought not last and you didn't have the money to get more?: Never true Within the past 12 months, did you worry whether your food would run out before you got money to buy more?: Never true Do you have trouble paying for medicines?: No Do you have trouble getting transportation to medical appointments?: No Do you have trouble paying your heating and electricity bill?: No Do you have trouble taking care of your child, family member or friend?: No Do you have trouble with day-to-day activities such as bathing, preparing meals, shopping, managing finances, etc.?: No Are you currently unemployed and looking for a job?: No Are you interested in more education?: No Currently or been in a relationship where the following occur: No concerns reported THRIVE Score: 0 AUDIT C Alcohol Use Questionnaire (AUDIT-C) 2. How many drinks containing alcohol do you have on a typical day when you are drinking?: 1 or 2 3. How often do you have six or more drinks on one occasion?: Never Total Score: 0 RENETTA-7 AMB Questionnaire RENETTA-7 Date RENETTA - 7 assessed: 09/04/24 Feeling nervous, anxious, or on edge: 0 = Not at all Not being able to stop or control worryin = Not at all Worrying too much about different things: 0 = Not at all Trouble relaxin = Not at all Being so restless that it is hard to sit still: 0 = Not at all Becoming easily annoyed or irritable: 0 = Not at all Feeling afraid as if something awful might happen: 0 = Not at all Total RENETTA-7 score (0-4 normal; 5-9 mild; 10-14 moderate; 15-21 severe): 0 Source: Developed by Drs. Ronal Rivero, Cecelia Cortez, Johny Ocasio and colleagues, with an educational samantha from [employer]. Physical exam (Primary Care) Vital Signs: Last Vital Signs Pulse 71 09/04/24 10:25 BP 128/76 09/04/24 10:25 Pulse Ox 92 09/04/24 10:25 Oxygen Delivery Method Room Air 09/04/24 10:25 BMI result Body Mass Index 30.4 Tobacco/Smoking Status: Tobacco use Status Tobacco use date assessed 09/04/24 09/04/24 10:31 Patient Tobacco Use Status Former Tobacco user 09/04/24 10:31 Tobacco use type Cigarette 09/04/24 10:31 e-Cigarette/Vaping Use Never Used 09/04/24 10:31 PHQ-9: PHQ-9 Score PHQ-9: Total score 0 09/04/24 10:52 Depression Screening Interpretation: Negative Thrive Assessment: Date of Thrive Assessment Date Thrive assessed 09/04/24 09/04/24 10:31 Currently or been in a relationship where the following occur: No concerns reported Const General: alert; No acute distress Eyes Conjunctivae: conjunctivae normal Resp Auscultation: clear to auscultation bilaterally Cardio Rate: regular rate Rhythm: regular rhythm GI Inspection: Yes normal to inspection Coding Level of Care Code Est Pt Level 4 (53201) Complex EM visit Add On G2211 Diagnoses Ascending aorta dilatation I77.810 Personal history of tobacco use Z87.891 Pyoderma gangrenosum L88 HTN (hypertension) I10 Rheumatoid arthritis of multiple sites with negative rheumatoid factor M06.09 Rheumatoid arthritis location: multiple sites Rheumatoid factor presence: without rheumatoid factor Sjogren's disease M35.00 COPD (chronic obstructive pulmonary disease) J44.9 Assessment & Plan Assessment & Plan (1) Ascending aorta dilatation: Comment: October 2023 4.1 Code(s): I77.810 - Thoracic aortic ectasia Category: Medical Plan: Will plan on follow-up echocardiogram for the ascending aorta dilatation (2) Personal history of tobacco use: Comment: CT 10/30/2023 Code(s): Z87.891 - Personal history of nicotine dependence Category: Social Hx Plan: Patient is being followed up by Pulmonary and CT scan has been ordered in November to December (3) Pyoderma gangrenosum: Code(s): L88 - Pyoderma gangrenosum Category: Medical Plan: Continue to follow-up with dermatology (4) HTN (hypertension): Code(s): I10 - Essential (primary) hypertension Category: Medical Plan: Continue with blood pressure medication. Decrease salt intake and exercise on amlodipine 2.5 mg once a day metoprolol 50 mg once a day (5) Rheumatoid arthritis: Code(s): M06.9 - Rheumatoid arthritis, unspecified Category: Medical Qualifiers: Rheumatoid arthritis location: multiple sites Rheumatoid factor presence: without rheumatoid factor Qualified Code(s): M06.09 - Rheumatoid arth ritis without rheumatoid factor, multiple sites Plan: Continue to follow-up with Rheumatology (6) Sjogren's disease: Code(s): M35.00 - Sjogren syndrome, unspecified Category: Medical Plan: Continue to follow-up with Rheumatology (7) COPD (chronic obstructive pulmonary disease): Code(s): J44.9 - Chronic obstructive pulmonary disease, unspecified Category: Medical Plan: On albuterol and Trelegy Plan History of Present Illness The patient is a 78-year-old male presenting with a follow-up visit for the management of multiple chronic conditions, including Chronic Obstructive Pulmonary Disease (COPD), rheumatoid arthritis, and pyoderma gangrenosum. The COPD was identified through pulmonary function testing (PFT), which suggested emphysema. The patient experiences nocturnal hypoxemia, although he has declined the use of oxygen therapy. He was advised to undergo a follow-up CT scan in December for further evaluation. In terms of rheumatoid arthritis, the patient was previously started on upadacitinib. The pyoderma gangrenosum appears to respond to systemic corticosteroids, as evidenced by the improvement in leg wound healing when on prednisone since April. The patient also has a significant medical history, including heparin-induced thrombocytopenia, hypercholesterolemia, history of smoking, major depressive disorder, and Sj?gren's syndrome. The patient receives amlodipine and metoprolol for hypertension management. Additionally, the patient has a history of anemia, managed previously with iron supplementation, which was discontinued due to gastrointestinal side effects. Current medications include Trelegy for COPD and potential medication adjustments are being considered, such as duloxetine, for which the management in pain control is overseen by another provider. Health Maintenance - Continue follow-up with pulmonary care for COPD management. - Scheduled diagnostics include a CT scan in mid-December and an echocardiogram for ascending aortic dilation. - Blood pressure management on amlodipine 2.5 mg daily and metoprolol 50 mg daily. - Ongoing dermatology follow-ups for wound care associated with pyoderma gangrenosum. - Consideration for ongoing rheumatology follow-up for rheumatoid arthritis and Sj?gren's syndrome. - Routine blood work, including a complete blood count and iron studies, to monitor anemia. Social History - History of smoking. Review of Systems - Respiratory: Reports nocturnal hypoxemia. Physical Exam Results - Labs: Previous fasting blood glucose was 122 mg/dL. Anemia noted, though not specifically quantified during the visit. - Tests and Diagnostics: Previous PFT suggested emphysema. Plan Patient was informed and verbally consented to the use of an ambient scribe for clinic note documentation during this visit. 1. Rheumatoid Arthritis Continued monitoring is indicated, and the patient has been started on upadacitinib. Follow up with rheumatology for ongoing management and medication adjustments. 2. Pyoderma Gangrenosum The condition appears responsive to systemic corticosteroids (prednisone). Continue with the current prednisone therapy under dermatological guidance. No changes until further evaluation of wound healing. 3. History Of Anemia Previously managed with iron supplements, which were discontinued due to side effects. Monitor hemoglobin and iron levels in future blood work. 4. Chronic Obstructive Pulmonary Disease Continue monitoring the COPD with a focus on maintaining the current treatment regimen of Trelegy. The patient declined overnight oxygen despite nocturnal hypoxemia, but oxygen saturation is reportedly in the 90s without significant desaturation. Advise monitoring with home oximetry. Follow-up pulmonary evaluations as scheduled. 5. History Of Smoking Documented as part of the patient?s social history, emphasizing the importance of smoking cessation. 6. Essential Hypertension Blood pressure management to continue with current medications, amlodipine and metoprolol, with regular monitoring. Discussion Notes During the visit, I addressed the patient's ongoing management for COPD, rheumatoid arthritis, and pyoderma gangrenosum. We discussed the role of corticosteroids in wound healing and the importance of adherence to treatment regimens including upadacitinib and Trelegy. The patient is aware of the consequences of nocturnal hypoxemia, yet declines oxygen therapy. I confirmed the follow-up CT and echocardiogram appointments. For hypertension, I reiterated the necessity of regular medication intake and monitoring, while also advising caution due to elevated fasting glucose levels. Lastly, I acknowledged the patient's frustrations with communication issues within the office, promising to address these concerns personally. Patient Instructions - Continue current medication regimen as prescribed. - Attend scheduled CT scan and echocardiogram appointments. - Monitor home oxygen levels, especially during nighttime. - Schedule routine blood work for anemia monitoring. - Maintain dermatology and rheumatology appointments. - Contact the office if experiencing significant changes in symptoms or concerns with medications. - Be proactive in reaching out for any concerns with office communication. Orders: Orders Comprehensive Met. Panel Today I10 - Essential (primary) hypertension Free T4 (Free Thyroxine) Today I10 - Essential (primary) hypertension Lipid Panel Today E78.00 - Pure hypercholesterolemia, unspecified, I10 - Essential (primary) hypertension Vitamin B12 and Folate Today I10 - Essential (primary) hypertension Reticulocyte Count Today I10 - Essential (primary) hypertension Vitamin D 25-OH Total Today I10 - Essential (primary) hypertension Complete Blood Count Auto Diff Today I10 - Essential (primary) hypertension Ferritin Today I10 - Essential (primary) hypertension Hemoglobin A1c Today I10 - Essential (primary) hypertension Thyroid Stimulating Hormone Today I10 - Essential (primary) hypertension IRON PROFILE Today I10 - Essential (primary) hypertension Medications: New duloxetine 20 mg PO BEDTIME 90 caps 1RF pain I10 - Essential (primary) hypertension
--- OUTSIDE RECORDS SUMMARY | 2024-09-04 11:17 | XMS_ITS | Continuity of Care Document ---
Author Name [facility] Organization [facility] Care Team Providers Care Final Inspector Balance Wheel Name Role Phone [facility] Unavailable Unavailable Problems Combined list of problems [...] COPD - Chronic Obstructive Pulmonary Disease (SCT 58887499) Active Condition [facility] [place] Deep venous thrombosis of upper extremity Active Condition Feb 18, 2022 Entered By: MESFIN SAHA Comment: Left [facility] Depression (SCT [id number]) Active Condition [facility] Exposure to potentially hazardous substance Active Condition Oct 07, 2023 Entered By: COL BHARATHI ADAME Comment: ILIANA Screening Snomed Code connected 01/22/23 [facility] H/O: rheumatoid arthritis Active Condition [facility] Hypertension [facility] Moderate protein-calorie malnutrition (weight for age 60-74 percent of standard) Active Condition [facility] PE - Pulmonary Embolism (SCT [id number]) Active Condition [facility] Pyoderma gangrenosum Active Condition [facility] Rheumatoid arthritis Active Condition [facility] Sjogren syndrome Active Condition [facility] [place] [facility] Venous ulcer Active [facility] Diagnosis: ICD-10-CM R52 Pain, unspecified Active Diagnosis [facility] Diagnosis: ICD-10-CM Z12.2 Encntr screen for malignant neoplasm of respiratory organs Active Diagnosis [facility] [place] [facility] Diagnosis: ICD-10-CM Z46.0 Encounter for fit/adjst of spectacles and contact lenses Active Diagnosis [facility] [place] [facility] Diagnosis: ICD-10-CM H40.013 Open angle with borderline findings, low risk, bilateral [facility] [place] [facility] Diagnosis: ICD-10-CM I10 Essential (primary) hypertension [facility] Diagnosis: ICD-10-CM J44.9 Chronic obstructive pulmonary disease, unspecified Active Diagnosis [facility] Diagnosis: ICD-10-CM F43.10 Post-traumatic stress disorder, unspecified [facility] [place] [facility] Diagnosis: ICD-10-CM S91.009A Unspecified open wound, unspecified ankle, initial encounter Active Diagnosis [facility] Diagnosis: ICD-10-CM Z13.9 Encounter for screening, unspecified Active Diagnosis [facility] Diagnosis: ICD-10-CM 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 Diagnosis [facility] [place] [place] [facility] Diagnosis: ICD-10-CM Z04.89 Encounter for examination and observation for oth reasons Active Diagnosis [facility] Diagnosis: ICD-10-CM M35.00 Sjogren syndrome, unspecified Active Diagnosis [facility] [place] [facility] Diagnosis: ICD-10-CM R26.89 Other abnormalities of gait and mobility Active Diagnosis [facility] Medications Combined list of outpatient medications from Department of Defense and Veterans Affairs facilities.Medications provided include 1) outpatient medications from the last 15 months, and 2) patient-reported medications. Medication Details Route Status Patient Instructions Prescription Expires Prescription Number Last Dispense Date Ordering Provider Order Date Order Qty Source ACETAMINOPH EN 500MG TAB TAKE TWO TABLETS BY MOUTH PRN ORAL ACTIVE VALENTÍN SHAA 2022 [facility] [place] [facility] ALBUTEROL 90MCG/ACTUA T (CFC-F) INHL,ORAL,8 .5GM DOSE COUNTER INHALE 2 PUFFS BY MOUTH EVERY 6 HOURS NEEDED RESPIR ATORY (INHAL ATION) ACTIVE VALENTÍN SAHA [address] [facility] [place] [facility] CALCIUM CARBONATE TAB TAKE ACTIVE [facility] [place] CHOLECALCIF MELISSA (VIT D3) TAB TAKE EVERY DAY [facility]IVE [facility] [place] DULOXETINE HCL 20MG CAP,EC TAKE 1 CAPSULE BY MOUTH AT BEDTIME ORAL ACTIVE [facility]ENT[facility]N [facility]HA [facility] [facility] ETANERCEPT 50MG INJ,SOLN INJECT UNDER THE SKIN SUBCUT ANEOUS ACTIVE [facility] [place] FAMOTIDINE TAB TAKE ACTIVE [facility] [place] FLUTICASONE PROPIONATE 50MCG/SPRAY SOLN,NASAL, 16GM INSTILL 2 SPRAYS INTO EACH NOSTRIL ONCE DAILY NASAL ACTIVE VALENTÍN SAHA [address] [facility] [place] [facility] GABAPENTIN 300MG CAP TAKE 2 CAPSULES BY MOUTH EVERY EVENING AND TAKE 4 CAPSULES BY MOUTH AT BEDTIME ORAL ACTIVE VALENTÍN SAHA [facility] HYDROCHLORO THIAZIDE TAB TAKE EVERY DAY [facility]IVE [facility] [place] HYDROMORPHO NE HCL 2MG TAB TAKE ONE TABLET BY MOUTH THREE TIMES DAILY NEEDED ORAL ACTIVE VALENTÍN SAHA 2022 [facility] [place] IBUPROFEN TAB TAKE PRN ACTIVE SERGEY MG CT 2018 [place] METOPROLOL TARTRATE 25MG TAB TAKE ONE TABLET BY MOUTH TWICE DAILY ORAL ACTIVE VALENTÍN SAHA [address] [facility] MULTIVITAMI N & MINERALS TAB TAKE EVERY DAY ACTIVE SERGEY MG CT 2018 [place] NALOXONE HCL 4MG/SPRAY SOLN,SPRAY, NASAL INSTILL 1 SPRAY ONE NOSTRIL ONE TIME PRN NASAL ACTIVE VALENTÍN SAHA [address] [facility] [place] [facility] PREDNISONE (LOOK ALIKE/SOUND ALIKE) TAB TAKE BY MOUTH ORAL ACTIVE [facility] [address] [place] RIVAROXABAN 10MG TAB TAKE ONE TABLET BY MOUTH ONCE DAILY ORAL ACTIVE VALENTÍN SAHA 2022 [facility] SODIUM CHLORIDE 0.9% (PF) INJ,SYRINGE ,10ML INJECT 1 SYRINGE IV PUSH ONCE DAILY INTRAV ENOUS DISCONT INUED (EDIT) 04/28/2024 [id number] DEON LINDQUISTITRI 2023 30 [facility] [place] SODIUM CHLORIDE 0.9% (PF) INJ,SYRINGE ,10ML INJECT 1 SYRINGE IV PUSH DIRECTED BY PROVIDER INTRAV ENOUS DISCONT INUED (EDIT) 02/18/2024 [id number] 4 DEON LINDQUISTITRI 2023 30 [facility] [place] SODIUM CHLORIDE 0.9% (PF) INJ,SYRINGE ,10ML INJECT 1 SYRINGE DIRECTED BY PROVIDER ONCE DAILY NOT APPLIC ABLE 04/30/2024 [id number] RAMBISSLIN OglesbyDAVID 2023 30 [facility] [place] SODIUM CHLORIDE 0.9% (PF) INJ,SYRINGE ,10ML APPLY 1 SYRINGE TOPICALL Y DIRECTED BY PROVIDER TOPICA L 03/02/2024 [id number] 4 CHANGSSLIN OglesbyDAVID 2023 30 [facility] [place] SODIUM CHLORIDE 0.9% SOLN,IRRG IRRIGATE UDP TOPICALL Y ONCE DAILY TOPICA L DISCONT INUED (EDIT) 08/25/2024 [id number] 5 RAMBISSOO MendelDAVID 2024 1000 [facility] [place] SODIUM CHLORIDE 0.9% SOLN,IRRG IRRIGATE UDP TOPICALL Y EVERY OTHER DAY TOPICA L DISCONT INUED (EDIT) 10/01/2023 [id number] 4 BLANKABISSLIN OglesbyDAVID 2023 1000 [facility] [place] SODIUM CHLORIDE 0.9% SOLN,IRRG IRRIGATE DIRECTED TOPICALL Y ONCE DAILY TOPICA L 08/31/2024 [id number] 5 RAMBISSOO N,DAVID 2024 1000 [facility] [place] [facility] [facility] SODIUM CHLORIDE 0.9% SOLN,IRRG IRRIGATE DIRECTED TOPICALL Y EVERY OTHER DAY TOPICA L 10/03/2023 [id number] 4 RAMBISSOO N,DAVID 2023 1000 [facility] [place] [facility] SODIUM CHLORIDE 0.9% SOLN,IRRG IRRIGATE DIRECTED TOPICALL Y EVERY OTHER DAY TOPICA L 08/20/2023 [id number] 4 RAMBISSOO N,DAVID 2023 1000 [facility] UMECLIDINIU M 62.5MCG/YARELY ANTEROL 25MCG/ACTUA T INH,ORAL,30 D INHALE 1 INHALATI ON BY MOUTH ONCE DAILY RESPIR ATORY (INHAL ATION) ACTIVE [facility]HA [facility] UPADACITINI B 15MG 24HR TAB,SA TAKE ONE TABLET BY MOUTH ONCE DAILY ORAL ACTIVE VALENTÍN SAHA [facility] Allergies, Adverse Reactions, Alerts Combined list of allergies from Department of Defense and Veterans Affairs facilities. It does not include entries that were removed or entered in error. Substance Category Reaction Severity Reaction type Status Date Reported Comments Source HEPARIN Propensity to adverse reactions to drug (finding) Cardiac arrest SEVERE active [address] [facility] [place] [facility] Immunizations Combined list of available immunizations from the Department of Defense and Veterans Affairs facilities. Immunization Series Date Given Administered By Site Reaction Lot Number CVX Code Drug Electric Golf Cart Repairer Status Comments Source INFLUENZA, UNSPECIFIED FORMULATION 2023 88 complet ed [facility] [facility] PNEUMOCOCCAL CONJUGATE PCV20, POLYSACCHARID E [id number] CONJUGATE, ADJUVANT, PF 2023 ROXANNA VILLALBA E LEFT DELTO ID [id number] complet ed [facility] [place] complet ed [facility] [place] [facility] INFLUENZA, TRIVALENT, ADJUVANTED 2018 NONE 168 complet ed [place] PNEUMOCOCCAL CONJUGATE PCV 13 2017 133 complet ed [facility] PNEUMOCOCCAL POLYSACCHARID E PPV23 2015 33 complet ed [facility] Results Combined list of recent chemistry, hematology and other laboratory results from Department of Defense and Veterans Affairs, ranging from 15 months to all on record, depending upon the facility. Order Name Results Value Reference Range Date Interpretation Specimen Comments Source LIVER FUNCTION PROTEIN [MASS/VOLU ME] IN SERUM OR PLASMA 7.1 g/dL 6.0 - 8.3 10/14 Specimen Type: SERUM No comment entered. Ordering Provider: Madelaine SAHA Report Released Date/Time: Oct 15, 2023 11:05 AM Reporting Lab: [facility] [place] [facility] [address] [facility] [address] Performing Lab: [facility] [place] [facility] [address] [facility] [address] [facility] [place] [facility] LIVER FUNCTION ALBUMIN [MASS/VOLU ME] IN SERUM OR PLASMA 3.8 g/dL 3.5 - 5.0 10/14 Specimen Type: SERUM No comment entered. Ordering Provider: Madelaine SAHA Report Released Date/Time: Oct 15, 2023 11:05 AM Reporting Lab: [facility] [place] [facility] [address] [facility] [address] Performing Lab: [facility] [place] [address] [address] [facility] [place] [place] [facility] LIVER FUNCTION ALKALINE PHOSPHATAS E [ENZYMATIC ACTIVITY/V OLUME] IN SERUM OR PLASMA 50 U/L 40 - 150 10/14 Specimen Type: SERUM No comment entered. Ordering Provider: Madelaine SAHA Report Released Date/Time: Oct 15, 2023 11:05 AM Reporting Lab: [facility] [place] [facility] [address] [facility] [address] Performing Lab: [facility] [place] [address] [address] [facility] [place] [facility] LIVER FUNCTION ASPARTATE AMINOTRANS FERASE [ENZYMATIC ACTIVITY/V OLUME] IN SERUM OR PLASMA 15 U/L 5 - 34 10/14 Specimen Type: SERUM No comment entered. Ordering Provider: Madelaine SAHA Report Released Date/Time: Oct 15, 2023 11:05 AM Reporting Lab: [facility] [place] [facility] [address] [facility] [address] Performing Lab: [facility] [place] [facility] [address] [facility] [address] [facility] [place] [facility] LIVER FUNCTION ALANINE AMINOTRANS FERASE [ENZYMATIC ACTIVITY/V OLUME] IN SERUM OR PLASMA 26 U/L 10/14 Specimen Type: SERUM No comment entered. Ordering Provider: Madelaine SAHA Report Released Date/Time: Oct 15, 2023 11:05 AM Reporting Lab: [facility] [address] [facility] [address] Performing Lab: [facility] [address] [facility] LIVER FUNCTION BILIRUBIN. TOTAL [MASS/VOLU ME] IN SERUM OR PLASMA 0.5 mg/dL 0.2 - 1.2 10/14 Specimen Type: SERUM No comment entered. Ordering Provider: Madelaine SAHA Report Released Date/Time: Oct 15, 2023 11:05 AM Reporting Lab: [facility] [address] Performing Lab: [facility] [address] [facility] BASIC METABOLI C PANEL (fasting ) UREA NITROGEN [MASS/VOLU ME] IN SERUM OR PLASMA 18 mg/dL 7 - 25 10/14 Specimen Type: SERUM No comment entered. Ordering Provider: Madelaine SAHA Report Released Date/Time: Oct 15, 2023 11:05 AM Reporting Lab: [facility] [place] [address] [address] Performing Lab: [facility] [address] [facility] [address] [facility] BASIC METABOLI C PANEL (fasting ) GLUCOSE [MASS/VOLU ME] IN SERUM OR PLASMA 95 mg/dL 65 - 100 10/14 Specimen Type: SERUM No comment entered. Ordering Provider: Madelaine SAHA Report Released Date/Time: Oct 15, 2023 11:05 AM Reporting Lab: [facility] [address] [address] Performing Lab: [facility] [place] [facility] [address] [facility] [address] [facility] [place] [facility] BASIC METABOLI C PANEL (fasting ) SODIUM [MOLES/VOL UME] IN SERUM OR PLASMA 141 mmol/L 135 - 145 10/14 Specimen Type: SERUM No comment entered. Ordering Provider: Madelaine SAHA Report Released Date/Time: Oct 15, 2023 11:05 AM Reporting Lab: [facility] [place] [facility] [address] [facility] [address] Performing Lab: [facility] [facility] [address] [facility] [address] [facility] [place] [facility] BASIC METABOLI C PANEL (fasting ) POTASSIUM [MOLES/VOL UME] IN SERUM OR PLASMA 4.2 mmol/L 3.5 - 5.0 10/14 Specimen Type: SERUM No comment entered. Ordering Provider: Madelaine SAHA Report Released Date/Time: Oct 15, 2023 11:05 AM Reporting Lab: [facility] [place] [address] [address] Performing Lab: [facility] [place] [facility] [address] [facility] [address] [facility] [place] [facility] BASIC METABOLI C PANEL (fasting ) CHLORIDE [MOLES/VOL UME] IN SERUM OR PLASMA 106 mmol/L 100 - 110 10/14 Specimen Type: SERUM No comment entered. Ordering Provider: Madelaine SAHA Report Released Date/Time: Oct 15, 2023 11:05 AM Reporting Lab: [facility] [place] [address] [address] Performing Lab: [facility] [place] [facility] [address] [facility] [address] [facility] [place] [facility] BASIC METABOLI C PANEL (fasting ) CARBON DIOXIDE, TOTAL [MOLES/VOL UME] IN SERUM OR PLASMA 25 meq/L 20 - 30 10/14 Specimen Type: SERUM No comment entered. Ordering Provider: Madelaine SAHA Report Released Date/Time: Oct 15, 2023 11:05 AM Reporting Lab: [facility] [place] [facility] [address] [facility] [address] Performing Lab: [facility] [place] [facility] [address] [facility] [address] [facility] [place] [facility] BASIC METABOLI C PANEL (fasting ) CREATININE [MASS/VOLU ME] IN SERUM OR PLASMA 1.37 mg/dL 0.50 - 1.40 10/14 Specimen Type: SERUM No comment entered. Ordering Provider: Madelaine SAHA Report Released Date/Time: Oct 15, 2023 11:05 AM Reporting Lab: [facility] [place] [facility] [address] [facility] [address] Performing Lab: [facility] [place] [address] [address] [facility] [place] [facility] BASIC METABOLI C PANEL (fasting ) GLOMERULAR FILTRATION RATE/1.73 SQ M.PREDICTE D [VOLUME RATE/AREA] IN SERUM, PLASMA OR BLOOD BY CREATININE -BASED FORMULA (CKD-EPI 2020) 53 mL/min 60 10/14 L Specimen Type: SERUM No comment entered. Ordering Provider: Madelaine SAHA Report Released Date/Time: Oct 15, 2023 11:05 AM Reporting Lab: [facility] [place] [address] [address] Performing Lab: [facility] [place] [address] [address] [facility] [place] [facility] LIPID PANEL FASTING CHOLESTERO L [MASS/VOLU ME] IN SERUM OR PLASMA 179 mg/dL 10/14 Specimen Type: SERUM No comment entered. Ordering Provider: Madelaine SAHA Report Released Date/Time: Oct 15, 2023 11:05 AM Reporting Lab: [facility] [place] [address] [address] Performing Lab: [facility] [place] [address] [address] [facility] [place] [facility] LIPID PANEL FASTING TRIGLYCERI DE [MASS/VOLU ME] IN SERUM OR PLASMA 123 mg/dL 0 - 150 10/14 Specimen Type: SERUM No comment entered. Ordering Provider: Madelaine SAHA Report Released Date/Time: Oct 15, 2023 11:05 AM Reporting Lab: [facility] [place] [facility] [address] [facility] [address] Performing Lab: [facility] [place] [facility] [address] [facility] [address] [facility] [place] [facility] LIPID PANEL FASTING CHOLESTERO L IN LDL [MASS/VOLU ME] IN SERUM OR PLASMA BY CALCULAGIOO N 111 mg/dL 0 - 129 10/14 Specimen Type: SERUM No comment entered. Ordering Provider: Madelaine SAHA Report Released Date/Time: Oct 15, 2023 11:05 AM Reporting Lab: [facility] [place] [facility] [address] [facility] [address] Performing Lab: [facility] [place] [facility] [address] [facility] [address] [facility] [place] [facility] LIPID PANEL FASTING CHOLESTERO L.TOTAL/CH OLESTEROL IN HDL [MASS RATIO] IN SERUM OR PLASMA 4.2 10/14 Specimen Type: SERUM No comment entered. Ordering Provider: Madelaine SAHA Report Released Date/Time: Oct 15, 2023 11:05 AM Reporting Lab: [facility] [place] [facility] [address] [facility] [address] Performing Lab: [facility] [place] [facility] [address] [facility] [address] [facility] [place] [facility] LIPID PANEL FASTING CHOLESTERO L IN HDL [MASS/VOLU ME] IN SERUM OR PLASMA 43 mg/dL 40 - 60 10/14 Specimen Type: SERUM No comment entered. Ordering Provider: Madelaine SAHA Report Released Date/Time: Oct 15, 2023 11:05 AM Reporting Lab: [facility] [place] [facility] [address] [facility] [address] Performing Lab: [facility] [place] [facility] [address] [facility] [address] [facility] [place] [facility] IRON & TIBC PANEL IRON BINDING CAPACITY [MASS/VOLU ME] IN SERUM OR PLASMA 338 ug/dL 204 - 475 10/14 Specimen Type: SERUM No comment entered. Ordering Provider: Madelaine SAHA Report Released Date/Time: Oct 15, 2023 11:05 AM Reporting Lab: [facility] [place] [facility] [address] [facility] [address] Performing Lab: [facility] [place] [facility] [address] [facility] [address] [facility] [place] [facility] IRON & TIBC PANEL IRON [MASS/VOLU ME] IN SERUM OR PLASMA 51 ug/dL 40 - 160 10/14 Specimen Type: SERUM No comment entered. Ordering Provider: Madelaine SAHA Report Released Date/Time: Oct 15, 2023 11:05 AM Reporting Lab: [facility] [place] [facility] [address] [facility] [address] Performing Lab: [facility] [place] [facility] [address] [facility] [address] [facility] [place] [facility] IRON & TIBC PANEL IRON/IRON BINDING CAPACITY.T OTAL [MASS RATIO] IN SERUM OR PLASMA 15.1 20.0 - 50.0 10/14 L Specimen Type: SERUM No comment entered. Ordering Provider: Madelaine SAHA Report Released Date/Time: Oct 15, 2023 11:05 AM Reporting Lab: [facility] [place] [facility] [address] [facility] [address] Performing Lab: [facility] [place] [facility] [address] [facility] [address] [facility] [place] [facility] CBC AND DIFF (AUTO) LEUKOCYTES [#/VOLUME] IN BLOOD BY AUTOMATED COUNT 6.76 10*3/uL 4.50 - 11.00 10/14 Specimen Type: BLOOD No comment entered. Ordering Provider: Madelaine SAHA Report Released Date/Time: Oct 15, 2023 11:05 AM Reporting Lab: [facility] [place] [facility] [address] [facility] [address] Performing Lab: [facility] [place] [facility] [address] [facility] [address] [facility] [place] [facility] CBC AND DIFF (AUTO) ERYTHROCYT ES [#/VOLUME] IN BLOOD BY AUTOMATED COUNT 5.57 10*6/uL 4.23 - 5.66 10/14 Specimen Type: BLOOD No comment entered. Ordering Provider: Madelaine SAHA Report Released Date/Time: Oct 15, 2023 11:05 AM Reporting Lab: [facility] [place] [facility] [address] [facility] [address] Performing Lab: [facility] [place] [facility] [address] [facility] [address] [facility] [place] [facility] CBC AND DIFF (AUTO) HEMOGLOBIN [MASS/VOLU ME] IN BLOOD 14.9 g/dL 12.8 - 17 10/14 Specimen Type: BLOOD No comment entered. Ordering Provider: Madelaine SAHA Report Released Date/Time: Oct 15, 2023 11:05 AM Reporting Lab: [facility] [place] [facility] [address] [facility] [address] Performing Lab: [facility] [place] [facility] [address] [facility] [address] [facility] [place] [facility] CBC AND DIFF (AUTO) HEMATOCRIT [VOLUME FRACTION] OF BLOOD BY AUTOMATED COUNT 47.5 39.2 - 50.4 10/14 Specimen Type: BLOOD No comment entered. Ordering Provider: Madelaine SAHA Report Released Date/Time: Oct 15, 2023 11:05 AM Reporting Lab: [facility] [place] [facility] [address] [facility] [address] Performing Lab: [facility] [place] [facility] [address] [facility] [address] [facility] [facility] CBC AND DIFF (AUTO) MCV [ENTITIC VOLUME] BY AUTOMATED COUNT 85.3 fL 82 - 99 10/14 Specimen Type: BLOOD No comment entered. Ordering Provider: Madelaine SAHA Report Released Date/Time: Oct 15, 2023 11:05 AM Reporting Lab: [facility] [place] [facility] [address] [facility] [address] Performing Lab: [facility] [place] [facility] [address] [facility] [address] [facility] CBC AND DIFF (AUTO) MCHC [MASS/VOLU ME] BY AUTOMATED COUNT 31.4 g/dL 30.8 - 35.1 10/14 Specimen Type: BLOOD No comment entered. Ordering Provider: Madelaine SAHA Report Released Date/Time: Oct 15, 2023 11:05 AM Reporting Lab: [facility] [place] [address] [address] Performing Lab: [facility] [place] [address] [address] [facility] [place] [facility] CBC AND DIFF (AUTO) PLATELETS [#/VOLUME] IN BLOOD BY AUTOMATED COUNT 243 10*3/uL 140 - 360 10/14 Specimen Type: BLOOD No comment entered. Ordering Provider: Madelaine SAHA Report Released Date/Time: Oct 15, 2023 11:05 AM Reporting Lab: [facility] [place] [facility] [address] [facility] [address] Performing Lab: [facility] [place] [facility] [address] [facility] [address] [facility] CBC AND DIFF (AUTO) ERYTHROCYT E DISTRIBUTI ON WIDTH [RATIO] BY AUTOMATED COUNT 15.0 12.0 - 16.0 10/14 Specimen Type: BLOOD No comment entered. Ordering Provider: Madelaine SAHA Report Released Date/Time: Oct 15, 2023 11:05 AM Reporting Lab: [facility] [place] [facility] [address] [facility] [address] Performing Lab: [facility] [address] [facility] [address] [facility] CBC AND DIFF (AUTO) MONOCYTES [#/VOLUME] IN BLOOD BY AUTOMATED COUNT 0.49 10*3/uL 0.30 - 1.10 10/14 Specimen Type: BLOOD No comment entered. Ordering Provider: Madelaine SAHA Report Released Date/Time: Oct 15, 2023 11:05 AM Reporting Lab: [facility] [place] [facility] [address] [facility] [address] Performing Lab: [facility] [place] [facility] [address] [facility] [address] [facility] CBC AND DIFF (AUTO) MCH [ENTITIC MASS] BY AUTOMATED COUNT 26.8 pg 26.2 - 32.6 10/14 Specimen Type: BLOOD No comment entered. Ordering Provider: Madelaine SAHA Report Released Date/Time: Oct 15, 2023 11:05 AM Reporting Lab: [facility] [place] [address] [address] Performing Lab: [facility] [place] [facility] [address] [facility] [address] [facility] CBC AND DIFF (AUTO) NEUTROPHIL S/100 LEUKOCYTES IN BLOOD BY AUTOMATED COUNT 67.8 43.7 - 75.8 10/14 Specimen Type: BLOOD No comment entered. Ordering Provider: Madelaine SAHA Report Released Date/Time: Oct 15, 2023 11:05 AM Reporting Lab: [facility] [place] [facility] [address] [facility] [address] Performing Lab: [facility] [place] [facility] [address] [place] [address] [facility] CBC AND DIFF (AUTO) LYMPHOCYTE S/100 LEUKOCYTES IN BLOOD BY AUTOMATED COUNT 21.9 14.0 - 42.3 10/14 Specimen Type: BLOOD No comment entered. Ordering Provider: Madelaine SAHA Report Released Date/Time: Oct 15, 2023 11:05 AM Reporting Lab: [facility] [place] [facility] [address] [facility] [address] Performing Lab: [facility] [place] [facility] [address] [facility] [address] [facility] [place] [facility] CBC AND DIFF (AUTO) MONOCYTES/ 100 LEUKOCYTES IN BLOOD BY AUTOMATED COUNT 7.2 5.1 - 13.7 10/14 Specimen Type: BLOOD No comment entered. Ordering Provider: Madelaine SAHA Report Released Date/Time: Oct 15, 2023 11:05 AM Reporting Lab: [facility] [place] [facility] [address] [facility] [address] Performing Lab: [facility] [place] [facility] [address] [facility] [address] [facility] [place] CBC AND DIFF (AUTO) EOSINOPHIL S/100 LEUKOCYTES IN BLOOD BY AUTOMATED COUNT 2.1 0.4 - 6.8 10/14 Specimen Type: BLOOD No comment entered. Ordering Provider: Madelaine SAHA Report Released Date/Time: Oct 15, 2023 11:05 AM Reporting Lab: [facility] [place] [facility] [address] [facility] [address] Performing Lab: [facility] [place] [facility] [address] [facility] [address] [facility] [place] CBC AND DIFF (AUTO) BASOPHILS/ 100 LEUKOCYTES IN BLOOD BY AUTOMATED COUNT 0.6 0.1 - 2.0 10/14 Specimen Type: BLOOD No comment entered. Ordering Provider: Madelaine SAHA Report Released Date/Time: Oct 15, 2023 11:05 AM Reporting Lab: [facility] [place] [address] [facility] [address] Performing Lab: [facility] [place] [facility] [address] [facility] [address] [facility] [place] [facility] CBC AND DIFF (AUTO) NEUTROPHIL S [#/VOLUME] IN BLOOD BY AUTOMATED COUNT 4.58 10*3/uL 2.20 - 7.60 10/14 Specimen Type: BLOOD No comment entered. Ordering Provider: Madelaine SAHA Report Released Date/Time: Oct 15, 2023 11:05 AM Reporting Lab: [facility] [place] [address] [address] Performing Lab[facility] [place] [facility] [address] [facility] [address] [facility] [place] [facility] CBC AND DIFF (AUTO) LYMPHOCYTE S [#/VOLUME] IN BLOOD BY AUTOMATED COUNT 1.48 10*3/uL 1.00 - 3.20 10/14 Specimen Type: BLOOD No comment entered. Ordering Provider: Madelaine SAHA Report Released Date/Time: Oct 15, 2023 11:05 AM Reporting Lab: [facility] [place] [address] [address] Performing Lab: [facility] [place] [facility] [address] [facility] [address] [facility] [place] [facility] CBC AND DIFF (AUTO) EOSINOPHIL S [#/VOLUME] IN BLOOD BY AUTOMATED COUNT 0.14 10*3/uL 0.03 - 0.44 10/14 Specimen Type: BLOOD No comment entered. Ordering Provider: Madelaine SAHA Report Released Date/Time: Oct 15, 2023 11:05 AM Reporting Lab: [facility] [place] [facility] [address] [facility] [address] Performing Lab: [facility] [place] [address] [address] [facility] [place] [facility] CBC AND DIFF (AUTO) BASOPHILS [#/VOLUME] IN BLOOD BY AUTOMATED COUNT 0.04 10*3/uL 0.01 - 0.13 10/14 Specimen Type: BLOOD No comment entered. Ordering Provider: Madelaine SAHA Report Released Date/Time: Oct 15, 2023 11:05 AM Reporting Lab: [facility] [place] [facility] [address] [facility] [address] Performing Lab: [facility] [place] [facility] [address] [facility] [address] [facility] CBC AND DIFF (AUTO) IMMATURE GRANULOCYT ES/100 LEUKOCYTES IN BLOOD BY AUTOMATED COUNT 0.4 0.0 - 0.7 10/14 Specimen Type: BLOOD No comment entered. Ordering Provider: Madelaine SAHA Report Released Date/Time: Oct 15, 2023 11:05 AM Reporting Lab: [facility] [place] [facility] [address] [facility] [address] Performing Lab: [facility] [place] [facility] [address] [facility] [address] [facility] [place] CBC AND DIFF (AUTO) IMMATURE GRANULOCYT ES [#/VOLUME] IN BLOOD 0.03 10*3/uL 0.00 - 0.06 10/14 Specimen Type: BLOOD No comment entered. Ordering Provider: Madelaine SAHA Report Released Date/Time: Oct 15, 2023 11:05 AM Reporting Lab: [facility] [place] [facility] [address] [facility] [address] Performing Lab: [facility] [place] [facility] [address] [facility] [address] [facility] [place] CBC LEUKOCYTES [#/VOLUME] IN BLOOD BY AUTOMATED COUNT 6.94 10*3/uL 4.50 - 11.00 05/24 Specimen Type: BLOOD No comment entered. Ordering Provider: Madelaine SAHA Report Released Date/Time: Apr 14, 2023 08:29 AM Reporting Lab: [facility] [place] [facility] [address] [facility] [address] Performing Lab: [facility] [place] [facility] [address] [facility] [address] [facility] [place] CBC ERYTHROCYT ES [#/VOLUME] IN BLOOD BY AUTOMATED COUNT 4.59 10*6/uL 4.23 - 5.66 05/24 Specimen Type: BLOOD No comment entered. Ordering Provider: Madelaine SAHA Report Released Date/Time: Apr 14, 2023 08:29 AM Reporting Lab: [facility] [place] [address] [facility] [address] Performing Lab: [facility] [place] [facility] [address] [facility] [address] [facility] [place] CBC HEMOGLOBIN [MASS/VOLU ME] IN BLOOD 12.9 g/dL 12.8 - 17 05/24 Specimen Type: BLOOD No comment entered. Ordering Provider: Madelaine SAHA Report Released Date/Time: Apr 14, 2023 08:29 AM Reporting Lab: [facility] [place] [facility] [address] [facility] [address] Performing Lab: [facility] [place] [address] [address] [facility] [place] [facility] CBC HEMATOCRIT [VOLUME FRACTION] OF BLOOD BY AUTOMATED COUNT 40.6 39.2 - 50.4 05/24 Specimen Type: BLOOD No comment entered. Ordering Provider: Madelaine SAHA Report Released Date/Time: Apr 14, 2023 08:29 AM Reporting Lab: [facility] [place] [facility] [address] [facility] [address] Performing Lab: [facility] [place] [facility] [address] [facility] [address] [facility] [place] CBC MCV [ENTITIC VOLUME] BY AUTOMATED COUNT 88.5 fL 82 - 99 05/24 Specimen Type: BLOOD No comment entered. Ordering Provider: Madelaine SAHA Report Released Date/Time: Apr 14, 2023 08:29 AM Reporting Lab: [facility] [place] [facility] [address] [facility] [address] Performing Lab: [facility] [place] [facility] [address] [facility] [address] [facility] [place] CBC MCHC [MASS/VOLU ME] BY AUTOMATED COUNT 31.8 g/dL 30.8 - 35.1 05/24 Specimen Type: BLOOD No comment entered. Ordering Provider: Madelaine SAHA Report Released Date/Time: Apr 14, 2023 08:29 AM Reporting Lab: [facility] [place] [facility] [address] [facility] [address] Performing Lab: [facility] [place] [facility] [address] [facility] [address] [facility] [place] [facility] CBC PLATELETS [#/VOLUME] IN BLOOD BY AUTOMATED COUNT 309 10*3/uL 140 - 360 05/24 Specimen Type: BLOOD No comment entered. Ordering Provider: Madelaine SAHA Report Released Date/Time: Apr 14, 2023 08:29 AM Reporting Lab: [facility] [place] [address] [address] Performing Lab: [facility] [place] [facility] [address] [facility] [address] [facility] [place] [facility] CBC ERYTHROCYT E DISTRIBUTI ON WIDTH [RATIO] BY AUTOMATED COUNT 14.0 12.0 - 16.0 05/24 Specimen Type: BLOOD No comment entered. Ordering Provider: Madelaine SAHA Report Released Date/Time: Apr 14, 2023 08:29 AM Reporting Lab: [facility] [place] [address] [address] Performing Lab: [facility] [place] [facility] [address] [facility] [address] [facility] [place] [facility] CBC MCH [ENTITIC MASS] BY AUTOMATED COUNT 28.1 pg 26.2 - 32.6 05/24 Specimen Type: BLOOD No comment entered. Ordering Provider: Madelaine SAHA Report Released Date/Time: Apr 14, 2023 08:29 AM Reporting Lab: [facility] [place] [facility] [address] [facility] [address] Performing Lab: [facility] [place] [address] [address] [facility] URINALYS IS COLOR OF URINE Light-Ye llow 05/24 Specimen Type: URINE Comment: If Glucose = >500 and Ketones are positive, please alert the Physician. Ordering Provider: Madelaine SAHA Report Released Date/Time: Apr 26, 2023 04:38 PM Reporting Lab: [facility] [place] [facility] [address] [facility] [address] Performing Lab: [facility] [place] [facility] [address] [facility] [address] [facility] URINALYS IS APPEARANCE OF URINE Clear 05/24 Specimen Type: URINE Comment: If Glucose = >500 and Ketones are positive, please alert the Physician. Ordering Provider: Madelaine SAHA Report Released Date/Time: Apr 26, 2023 04:38 PM Reporting Lab: [facility] [place] [address] [address] Performing Lab: [facility] [place] [facility] [address] [facility] [address] [facility] URINALYS IS GLUCOSE [MASS/VOLU ME] IN URINE NEGATIVE mg/dL 05/24 Specimen Type: URINE Comment: If Glucose = >500 and Ketones are positive, please alert the Physician. Ordering Provider: Madelaine SAHA Report Released Date/Time: Apr 26, 2023 04:38 PM Reporting Lab: [facility] [place] [facility] [address] [facility] [address] Performing Lab: [facility] [place] [facility] [address] [facility] [address] [facility] URINALYS IS KETONES [MASS/VOLU ME] IN URINE BY TEST STRIP NEGATIVE mg/dL 05/24 Specimen Type: URINE Comment: If Glucose = >500 and Ketones are positive, please alert the Physician. Ordering Provider: Madelaine SAHA Report Released Date/Time: Apr 26, 2023 04:38 PM Reporting Lab: [facility] [place] [facility] [address] [facility] [address] Performing Lab: [facility] [place] [facility] [address] [facility] [address] [facility] URINALYS IS ERYTHROCYT ES [PRESENCE] IN URINE SEDIMENT BY LIGHT MICROSCOPY NEGATIVE mg/dL 05/24 Specimen Type: URINE Comment: If Glucose = >500 and Ketones are positive, please alert the Physician. Ordering Provider: Madelaine SAHA Report Released Date/Time: Apr 26, 2023 04:38 PM Reporting Lab: [facility] [place] [facility] [address] [facility] [address] Performing Lab: [facility] [place] [facility] [address] [facility] [address] [facility] URINALYS IS PROTEIN [MASS/VOLU ME] IN URINE BY TEST STRIP NEGATIVE mg/dL 05/24 Specimen Type: URINE Comment: If Glucose = >500 and Ketones are positive, please alert the Physician. Ordering Provider: Madelaine SAHA Report Released Date/Time: Apr 26, 2023 04:38 PM Reporting Lab: [facility] [place] [facility] [address] [facility] [address] Performing Lab: [facility] [place] [facility] [address] [facility] [address] [facility] URINALYS IS NITRITE [PRESENCE] IN URINE NEGATIVE mg/dL 05/24 Specimen Type: URINE Comment: If Glucose = >500 and Ketones are positive, please alert the Physician. Ordering Provider: Madelaine SAHA Report Released Date/Time: Apr 26, 2023 04:38 PM Reporting Lab: [facility] [place] [facility] [address] [facility] [address] Performing Lab: [facility] [place] [facility] [address] [facility] [address] [facility] URINALYS IS BILIRUBIN. TOTAL [PRESENCE] IN URINE NEGATIVE mg/dL 05/24 Specimen Type: URINE Comment: If Glucose = >500 and Ketones are positive, please alert the Physician. Ordering Provider: Madelaine SAHA Report Released Date/Time: Apr 26, 2023 04:38 PM Reporting Lab: [facility] [address] [facility] [address] Performing Lab: [facility] [address] [facility] URINALYS IS SPECIFIC GRAVITY OF URINE BY REFRACTOME TRY 1.017 1.016 - 1.022 05/24 Specimen Type: URINE Comment: If Glucose = >500 and Ketones are positive, please alert the Physician. Ordering Provider: Madelaine SAHA Report Released Date/Time: Apr 26, 2023 04:38 PM Reporting Lab: [facility] [address] Performing Lab: [facility] [address] [facility] URINALYS IS PH OF URINE BY TEST STRIP 6.0 5.0 - 9.0 05/24 Specimen Type: URINE Comment: If Glucose = >500 and Ketones are positive, please alert the Physician. Ordering Provider: Madelaine SAHA Report Released Date/Time: Apr 26, 2023 04:38 PM Reporting Lab: [facility] [address] Performing Lab: [facility]N [facility] [address] [facility] URINALYS IS UROBILINOG EN [MASS/VOLU ME] IN URINE BY TEST STRIP <2.0mg/d L <2.0 - 2.0 05/24 Specimen Type: URINE Comment: If Glucose = >500 and Ketones are positive, please alert the Physician. Ordering Provider: Madelaine SAHA Report Released Date/Time: Apr 26, 2023 04:38 PM Reporting Lab: [facility] [place] [facility] [address] [facility] [address] Performing Lab: [facility] [place] [facility] [address] [facility] [address] [facility] [place] [facility] URINALYS IS LEUKOCYTE ESTERASE [PRESENCE] IN URINE BY TEST STRIP NEGATIVE 05/24 Specimen Type: URINE Comment: If Glucose = >500 and Ketones are positive, please alert the Physician. Ordering Provider: Madelaine SAHA Report Released Date/Time: Apr 26, 2023 04:38 PM Reporting Lab: [facility] [place] [facility] [address] [facility] [address] Performing Lab: [facility] [place] [facility] [address] [facility] [address] [facility] [place] [facility] MICROALB UMIN CREATINI NE RATIO PANEL MICROALBUM IN/CREATIN INE [MASS RATIO] IN URINE 21.1 mg/g 0 - 29.9 05/24 Specimen Type: URINE No comment entered. Ordering Provider: Madelaine SAHA Report Released Date/Time: Apr 26, 2023 04:38 PM Reporting Lab: [facility] [place] [facility] [address] [facility] [address] Performing Lab: [facility] [place] [facility] [address] [facility] [address] [facility] [place] [facility] MICROALB UMIN CREATINI NE RATIO PANEL MICROALBUM IN [MASS/VOLU ME] IN URINE 1.9 mg/dL 05/24 Specimen Type: URINE No comment entered. Ordering Provider: Madelaine SAHA Report Released Date/Time: Apr 26, 2023 04:38 PM Reporting Lab: [facility] [place] [facility] [address] [facility] [address] Performing Lab: [facility] [place] [facility] [address] [facility] [address] [facility] [place] [facility] MICROALB UMIN CREATINI NE RATIO PANEL CREATININE [MASS/VOLU ME] IN URINE 89.96 mg/dL 05/24 Specimen Type: URINE No comment entered. Ordering Provider: Madelaine SAHA Report Released Date/Time: Apr 26, 2023 04:38 PM Reporting Lab: [facility] [place] [facility] [address] [facility] [address] Performing Lab: [facility] [place] [facility] [address] [facility] [address] [facility] [place] [facility] IRON & TIBC PANEL IRON BINDING CAPACITY [MASS/VOLU ME] IN SERUM OR PLASMA 347 ug/dL 204 - 475 05/24 Specimen Type: SERUM No comment entered. Ordering Provider: Madelaine SAHA Report Released Date/Time: Apr 26, 2023 04:38 PM Reporting Lab: [facility] [place] [address] [address] Performing Lab: [facility] [place] [address] [address] [facility] [place] [facility] IRON & TIBC PANEL IRON [MASS/VOLU ME] IN SERUM OR PLASMA 41 ug/dL 40 - 160 05/24 Specimen Type: SERUM No comment entered. Ordering Provider: Madelaine SAHA Report Released Date/Time: Apr 26, 2023 04:38 PM Reporting Lab: [facility] [place] [address] [address] Performing Lab: [facility] [place] [address] [address] [facility] [place] [facility] IRON & TIBC PANEL IRON/IRON BINDING CAPACITY.T OTAL [MASS RATIO] IN SERUM OR PLASMA 11.8 20.0 - 50.0 05/24 L Specimen Type: SERUM No comment entered. Ordering Provider: Madelaine SAHA Report Released Date/Time: Apr 26, 2023 04:38 PM Reporting Lab: [facility] [place] [address] [address] Performing Lab: [facility] [place] [facility] [address] [facility] [address] [facility] BASIC METABOLI C PANEL (fasting ) UREA NITROGEN [MASS/VOLU ME] IN SERUM OR PLASMA 17 mg/dL 7 - 25 05/24 Specimen Type: SERUM No comment entered. Ordering Provider: Madelaine SAHA Report Released Date/Time: Apr 26, 2023 04:38 PM Reporting Lab: [facility] [address] [facility] [id number] Performing Lab: [facility] [address] [facility] [address] [facility] BASIC METABOLI C PANEL (fasting ) GLUCOSE [MASS/VOLU ME] IN SERUM OR PLASMA 95 mg/dL 65 - 100 05/24 Specimen Type: SERUM No comment entered. Ordering Provider: Madelaine SAHA Report Released Date/Time: Apr 26, 2023 04:38 PM Reporting Lab: [facility] [address] [facility] [id number] Performing Lab: [facility]ENTERUSE[address] [address] [facility] BASIC METABOLI C PANEL (fasting ) SODIUM [MOLES/VOL UME] IN SERUM OR PLASMA 142 mmol/L 135 - 145 05/24 Specimen Type: SERUM No comment entered. Ordering Provider: Madelaine SAHA Report Released Date/Time: Apr 26, 2023 04:38 PM Reporting Lab: [place] [facility] [place] [address] [address] Performing Lab: [facility] [address] [facility] [address] [facility] BASIC METABOLI C PANEL (fasting ) POTASSIUM [MOLES/VOL UME] IN SERUM OR PLASMA 4.8 mmol/L 3.5 - 5.0 05/24 Specimen Type: SERUM No comment entered. Ordering Provider: Madelaine SAHA Report Released Date/Time: Apr 26, 2023 04:38 PM Reporting Lab: [facility] [place] [facility] [address] [facility] [address] Performing Lab: [facility] [place] [facility] [address] [facility] [address] [facility] [place] [facility] BASIC METABOLI C PANEL (fasting ) CHLORIDE [MOLES/VOL UME] IN SERUM OR PLASMA 107 mmol/L 100 - 110 05/24 Specimen Type: SERUM No comment entered. Ordering Provider: Madelaine SAHA Report Released Date/Time: Apr 26, 2023 04:38 PM Reporting Lab: [facility] [place] [facility] [address] [facility] [address] Performing Lab: [facility] [place] [facility] [address] [facility] [address] [facility] [place] [facility] BASIC METABOLI C PANEL (fasting ) CARBON DIOXIDE, TOTAL [MOLES/VOL UME] IN SERUM OR PLASMA 24 meq/L 20 - 30 05/24 Specimen Type: SERUM No comment entered. Ordering Provider: Madelaine SAHA Report Released Date/Time: Apr 26, 2023 04:38 PM Reporting Lab: [facility] [place] [facility] [address] [facility] [address] Performing Lab: [facility] [place] [address] [address] [facility] [place] [facility] BASIC METABOLI C PANEL (fasting ) CREATININE [MASS/VOLU ME] IN SERUM OR PLASMA 1.49 mg/dL 0.50 - 1.40 05/24 H Specimen Type: SERUM No comment entered. Ordering Provider: Madelaine SAHA Report Released Date/Time: Apr 26, 2023 04:38 PM Reporting Lab: [facility] [place] [facility] [address] [facility] [address] Performing Lab: [facility] [place] [address] [address] [facility] [place] [facility] BASIC METABOLI C PANEL (fasting ) GLOMERULAR FILTRATION RATE/1.73 SQ M.PREDICTE D [VOLUME RATE/AREA] IN SERUM, PLASMA OR BLOOD BY CREATININE -BASED FORMULA (CKD-EPI 2020) 48 mL/min 60 05/24 L Specimen Type: SERUM No comment entered. Ordering Provider: Madelaine SAHA Report Released Date/Time: Apr 26, 2023 04:38 PM Reporting Lab: [facility] [place] [facility] [address] [facility] [address] Performing Lab: [facility] [place] [facility] [address] [facility] [address] [facility] [place] [facility] Vital Signs Combined list of inpatient and [...] Disposition Source [facility] [place] [facility] Outpatient Encounter [id number] 04/08 [facility] [place] [place] [facility] [place] [facility] WHEELCHAIR MNGMENT TRAINING [id number] Diagnos is: ICD-10- CM R26.89 Other abnorma lities of gait and mobilit y JOHN MCFADDEN ICA L 04/12 [facility] [place] [facility] [place] [facility] OFFICE O/P EST LOW 20-29 MIN [id number] Diagnos is: ICD-10- CM M35.00 Sjogren syndrom e, unspeci VALENTÍN Denise F 04/23 [facility] [place] [facility] [place] [place] [facility] Outpatient Encounter [id number] ALEXUS ZARAGOZA John 04/24 [place] [facility] [place] 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 KIRT Lundy 05/03 [facility] [place] [facility] CARDIOVERS ION ELECTRIC INT [id number] Diagnos is: ICD-10- CM Z13.9 Encount er for screeni ng, unspeci fied CHANI PISANO 05/03 [place] [facility] [place] [facility] En[facility] [id number] 07/23 [facility] [place] [facility] [place] [facility] Outpatient Encounter [id number] 08/10 [facility] [place] [facility] Q[facility]P OL DIG ASSMT&MGMT 5-10 [id number] Diagnos is: ICD-10- CM S91.009 A Unspeci fied open wound, unspeci fied ankle, initial encount er KATY THORPE 08/16 [facility] [place] [facility] Outpatient Encounter [id number] Diagnos is: ICD-10- CM F43.10 Post-tr aumatic stress disorde r, unspeci fied FEARING,PARVEZ Lopez 09/20 [facility] [place] [facility] [place] [facility] Outpatient Encounter [id number] FEARING,PARVEZ Lopez 09/20 [facility] [place] [facility] [place] [facility] Outpatient Encounter [id number] 10/04 [facility] [place] [facility] [place] [facility] OFFICE O/P EST LOW 20 MIN [id number] Diagnos is: ICD-10- CM J44.9 Chronic obstruc tive pulmona ry disease , unspeci fied VALENTÍN SAHA 10/21 [facility] [place] [facility] OFF/OP EST MAY X REQ PHY/QHP [id number] Diagnos is: ICD-10- CM I10 Essenti al (primar y) hyperte Dionna Salinas M 10/24 [facility] [place] COMPRE OPH EXAM NEW PT 1/> [id number] Diagnos is: ICD-10- CM H40.013 Open angle with borderl ine finding s, low risk, bilater al PARVEZ LEMUS 10/24 [facility] [place] ECHO EXAM OF EYE THICKNESS [id number] Diagnos is: ICD-10- CM H40.013 Open angle with borderl ine finding s, low risk, bilater al PARVEZ LEMUS 10/24 [facility] [place] [place] FIT SPECTACLES MULTIFOCAL [id number] Diagnos is: ICD-10- CM Z46.0 Encount er for fit/adj st of spectac les and contact lenses PARVEZ LEMUS 10/25 [facility] [place] [place] En[facility] [id number] 10/25 [facility] [place] [facility] [place] Encounter [id number] 11/23 [facility] [place] [facility] [facility] [place] Encounter [id number] 12/07 [facility] [place] [facility] [place] Encounter [id number] 12/09 [facility] [place] [facility] [place] Encounter [id number] 12/09 [facility] [place] [facility] [place] Encounter [id number] 01/23 [facility] [place] [facility] [place] QNHP OL DIG ASSMT&MGMT 5-10 [id number] Diagnos is: ICD-10- CM Z12.2 Encntr screen for maligna nt neoplas m of respira tory organs PUCHALSKI, MIRELA L 01/23 [facility] [place] En[facility] [id number] 01/31 [facility] [place] [place] Encounter [id number] 05/11 [facility] [place] [place] En[facility] [id number] 05/16 [facility] [place] [place] QNHP OL DIG ASSMT&MGMT 5-10 [id number] 1. Diagnos is: ICD-10- CM R52 Pain, unspeci fied GDULA,LAURA A 05/26 [facility] [place] [place] En[facility] [id number] 1.06/01 [facility] [place] Social History Combined list of available smoking, tobacco, and other social history from Department of Defense and Veterans Affairs facilities. Social History Type Response Date Comment Sourc e Tobacco smoking status [facility]-TOBACCO USE FORMER CIGARETTES [facility] of [facility] OTHER TYPE 06/01/2024 [facility] History of tobacco use [facility]ACCO FOR[facility] History of tobacco use [facility]-TOBACCO FORMER USER 02[facility]20[facility] History of tobacco [facility] TO < 5 YRS 06/22/2019 [place] Plan of Care List of future care activities from [facility] facilities. Additional future care activities may be listed in the Assessment and Plan section. Date/Time Care Activity Care Activity Detail Facili ty 09/07/2024 AMBULATORY - MEDICINE AMBULATORY - MEDICI NE [facility] 10/20/2024 AMBULATORY - MEDICINE AMBULATORY - MEDICI NE [facility] Advance Directives List of completed, amended, or rescinded Advance Directives on record at [facility] facilities. An actual copy of the Directive is not included. Date Advance Directive Provider Source 10/26/2023 ADVANCE DIRECTIVE MARGARITA KRAFT [facility]
--- OUTSIDE RECORDS SUMMARY | 2024-09-04 11:18 | XMS_ITS | Clinical Summary ---
Author Organization [facility] Facility Address [address] [place] [address] Care Team Providers Care Borderer Name Role Phone Kia Stroud MD Primary Care Provider [phone] Social History Tobacco Use Types Packs/Day Years [...] Insurance [employer] MEDICARE AENA MEDICARE Care Teams Borderer Relationship Specialty Start Date End Date Kia Stroud MD [facility] [address] [place], [place] PCP - General Internal Medicine 12/04/21
== END 2024-09-04 11:19 | disposition home or self-care (01) ==
PROVIDERS: PCP Internal Medicine; Visit Provider Internal Medicine
DX: I77.810 Thoracic aortic ectasia (principal); L88 Pyoderma gangrenosum; M06.09 Rheumatoid arthritis without rheumatoid factor, multiple sites; M35.00 Sjogren syndrome, unspecified; J44.9 Chronic obstructive pulmonary disease, unspecified; Z87.891 Personal history of nicotine dependence; I10 Essential (primary) hypertension

== ENCOUNTER → 2024-09-04 10:06 | Outpatient (BNVA) | payer MEDICARE, SELFPAY | PROVIDERS: PCP Internal Medicine; Visit Provider Internal Medicine | DX: I77.810 Thoracic aortic ectasia (principal); L88 Pyoderma gangrenosum; I10 Essential (primary) hypertension; M06.09 Rheumatoid arthritis without rheumatoid factor, multiple sites; M35.00 Sjogren syndrome, unspecified; J44.9 Chronic obstructive pulmonary disease, unspecified; Z87.891 Personal history of nicotine dependence | CPT/HCPCS: 99212 ==

== ENCOUNTER 2024-09-25 10:45 | Outpatient (AMB) | payer MEDICARE, SELFPAY ==
--- NOTE | 2024-09-25 10:33 | MHC.OFFVIS ---
Vital Signs 09/25/24 10:47 Height 5 ft 6 in BP 140/80 H Blood Pressure Location Lt brachial Position Sitting Pulse 83 Pulse Source Pulse Oximeter Pulse Oximetry (%) 90 L Oxygen Delivery Method Room Air Intake Visit Reasons: COPD Human Resources Benefits Assistant Required: No Electric Engine Mechanic: Electric Engine Mechanic offered & declined Accompanied by: Self / Same As Patient Allergies heparin (porcine) Allergy (Severe, Verified 09/25/24 10:55) HIT Medication List - Last Reconciled 09/25/24 by Kianna Mendez LPN acetaminophen (Tylenol Extra Strength) 1,000 mg PO Q6H PRN albuterol sulfate 90 mcg/actuation 2 puffs inhalation Q6H PRN amlodipine 2.5 mg PO DAILY amoxicillin mg PO duloxetine 20 mg PO BEDTIME ferrous sulfate 325 mg PO DAILY fluticasone propionate 50 mcg/actuation (Flonase Allergy Relief) 2 sprays intranasal DAILY PRN osaghgvnaby-cctgvsked-bvhkhaqu 100-62.5-25 mcg (Trelegy Ellipta) 1 inh inhalation DAILY gabapentin 800 mg PO BEDTIME 90 days gabapentin 600 mg PO DAILY 90 days hydromorphone 2 mg PO DAILY PRN 30 days ibuprofen 400 mg PO DAILY PRN Lactobac. rhamnosus GG-inulin 20 billion cell -200 mg (Culturelle Ultimate) 1 cap PO DAILY 2 weeks metoprolol succinate ER 50 mg PO DAILY miscellaneous medical supply As directed naloxone 4 mg/actuation (Narcan) 4 mg intranasal Q2M PRN prednisone 20 mg PO BID prednisone 10 mg PO DAILY HPI HPI COPD: Details: Sarath is a pleasant 78 year old male, former smoker, with 30 pack year history, quit 2019, with underlying moderate COPD, Sjogren's, Rheumatoid arthritis on Humira, provoked PE, CKD, HTN and chronic nonhealing wound. He continues to be nonambulatory due to poor healing wound on foot, currently in wheelchair and accompanied by . He reports good control of respiratory symptoms using Trelegy and albuterol MDI. He continues to report baseline dyspnea with exertion, denies persistent cough, wheezing or chest tightness. He denies any visits to urgent care or hospitalizations related to respiratory distress since the last visit. At the prior visit we reviewed overnight oximetry which revealed nocturnal hypoexmia <88% for 41 minutes and recommendation to assess for underlying sleep breathing disorder due to 43 desaturation events per hour with home sleep study, however patient declined. Also discussed 1L of supplemental oxygen at [facility] due to hypoxia, which patient was in agreement to today. He has been monitoring oxygen saturation at home while at rest, never below 90% on room air. [facility] Medical History MDD (major depressive disorder), single episode Pressure injury of buttock, stage 1 Deep vein thrombosis 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 Acute pulmonary embolism with acute cor pulmonale Acute pulmonary embolism Cardiac arrest CKD (chronic kidney disease) stage 3, GFR 30-59 ml/min Sjogren's disease Leg pain, bilateral Elevated serum creatinine COPD (chronic obstructive pulmonary disease) HTN (hypertension) Rheumatoid arthritis Chronic ulcer of leg Surgical History History of ankle surgery History of hernia repair History of left knee replacement Family History Sister Breast cancer Father Aneurysm Mother Angina at rest Other No family history of coronary artery disease Social History Household Members: Spouse Housing: House Do you presently have visiting nurse or other home services: No Alcohol intake: current Alcohol intake frequency: holidays/special occasions only Comment: restraints Patient Tobacco Use Status: Former Tobacco user Tobacco use type: Cigarette Cigarette Packs Per Day: 1 Years Smoked: quit 2018/ 30+ years e-Cigarette/Vaping Use: Never Used Second Hand Smoke Exposure: No Advance Directives Date on File: 12/23/21 service: Yes Current occupational status: retired Cognitive needs: Yes (cane) Hearing needs: No Vision needs: Yes (Pt wear glasses. ) Physical Exam Vital Signs: Last Vital Signs Pulse 83 09/25/24 10:47 BP 140/80 H 09/25/24 10:47 Pulse Ox 90 L 09/25/24 10:47 Oxygen Delivery Method Room Air 09/25/24 10:47 Assessment & Plan Assessment & Plan (1) COPD (chronic obstructive pulmonary disease): Code(s): J44.9 - Chronic obstructive pulmonary disease, unspecified Category: Medical (2) Personal history of tobacco use: Comment: CT 10/30/2023 Code(s): Z87.891 - Personal history of nicotine dependence Category: Social Hx (3) Cough: Code(s): R05.9 - Cough, unspecified Category: Medical (4) Nocturnal hypoxemia: Code(s): G47.34 - Idiopathic sleep related nonobstructive alveolar hypoventilation Category: Medical Plan Upon arrival to room O2 was 90L on room air, again discussed supplemental oxygen for nocturnal hypoxemia which patient was in agreement to. Will enter order for 1L supplemental oxygen at [facility]. He currently reports good control of respiratory symptoms, advised to continue Trelegy and albuterol MDI. CT chest performed 11/2023 revealed emphysematous changes with no concerning pulmonary nodules. Given smoking history, quit 2018, repeat chest CT scheduled for 11/2024. All questions were answered and patient is in agreement of plan. Will follow up to review results or sooner if needed. Coding Level of Care Code Est Pt Level 4 (06077) Diagnoses COPD (chronic obstructive pulmonary disease) J44.9 Personal history of tobacco use Z87.891 Cough R05.9 Nocturnal hypoxemia G47.34
[2024-09-25 10:47] VITALS: BP 140/80; PULSE 83; O2SAT 90
--- OUTSIDE RECORDS SUMMARY | 2024-09-25 12:18 | XMS_ITS | Encounter Summary ---
Author Name [facility] [place] Organization [facility] [place] Address [address] [place] [address] Care Team Providers Care Ship Scaler Name Role Phone LYDIA MG Primary Care [...] Holland's Name Patient's Relationship to Policy Holland [facility] [place] (R) MEDICARE ADVANTAGE MCR ([facility]) Jul 12, 2023 [id number] [phone] [place] [facility]) MEDICARE ADVANTAGE MCR ([facility]) Jul 12, 2023 [id number] [phone] [place] [facility] MEDIC[facility] ADVANTAGE MCR ([facility]) Jul 12, 2019 [id number] [phone] [place] PATIENT [facility] [place] ([facility]) MEDICARE ADVANTAGE MCR (WNR) Jul 12, 2018 [id number] [phone] QUEENIEDE SIMÓNIAM PATIENT [place] [employer] [facility] (WNR) MEDICARE ADVANTAGE [facility] (WNR) Sep 09, 2017 [id number] QUEENIEDE LLIAM PATIENT [facility]MPIRE [employer] [facility] (WNR) MEDICARE ADVANTAGE [facility] (WNR) Jul 12, 2017 [id number] MESFIN EJROMEIAAleksandr PATIENT Selected Encounter This section includes the information on record at OR for the Encounter. Date/Time Encounter Type Encounter Description Reason Provider Source Sep 07, 2024 10:30 AM OFFICE O/P EST HI 40 MIN OPTOMETRY ICD-10-CM H40.013 Open angle with borderline findings, low risk, bilateral MERHAR,TR B IHE Encounter Template Text not used by VA Assessments - Encounter Diagnoses This section includes the primary and secondary diagnoses documented for the Encounter. Date/Time Primary/Secondary Diagnosis Diagnosis Name Provider Source Sep 07, 2024 05:00 PM PRIMARY Open angle with borderline findings, low risk, bilateral MERHAR,TR B [facility] [place] [facility] Sep 07, 2024 05:00 PM SECONDARY Presence of intraocular lens MERHAR,TR B [facility] [place] [facility] Sep 07, 2024 05:00 PM SECONDARY Regular astigmatism, bilateral MERHAR,TR B [facility] [place] [facility] Plan of Treatment: Future Appointments (+ 6 months) and Future Tests (+/- 45 days) The Plan of Treatment section includes future care activities for the patient from all VA treatmentfacilities. This section includes future appointments and future orders which are active, pending or scheduled. Future Appointments This section includes appointments that were scheduled to occur 6 months from the date of the Encounter, up to a maximum of 20 appointments. The data comes from all [place] treatment facilities. Appointment Date/Time Appointment Type Appointme nt Facility Name Oct 20, 2024 01:30 PM AMBULATORY - MEDICINE [place] [facility] [place] [facility] Social History: Smoking Status (Most current) [...] 10:57 AM VA-TOBACCO USE FOR AKANKSHA CIGARETTES [facility] Tobacco Use History This section includes a history of the smoking, or tobacco-related health factors, that were collected on or before the date of the Encounter. The data comes from the [place] facility where the Encounter took place. Date/Time Smoking Status/Tobacco Use Comment F acility Jun 01, 2024 10:57 AM VA-TOBACCO USE [facility]ANKSHA [facility] Jan 22, 2023 01:30 PM VA-TOBACCO FOR[facility] Jan 22, 2023 01:30 PM VA-TOBACCO QUIT 5 TO < 15 YRS [facility] Feb 17, 2022 04:37 PM [facility]ACCO [facility] Feb 17, 2022 04:37 PM VA-TOBACCO QUIT 1 TO < 5 YRS [facility] Advance Directives: All historical and [...] Oct 26, 2023 ADVANCE DIRECTIVE MARGARITA KRAFT [facility] Encounter Notes: All associated encounter notes This section contains the clinical notes associated to the Encounter. Date/Time Encounter Note(s) Provider Source Sep 07, 2024 10:04 AM OPTOMETRY NOTE: LOCAL TITLE: OPTOMETRY NOTE STANDARD TITLE: OPTOMETRY NOTE DATE OF NOTE: SEP 07, 2024@10:04 ENTRY DATE: SEP 07, 2024@10:04:35 AUTHOR: TR BARRY EXP COSIGNER: URGENCY: STATUS: COMPLETED 78 WHITE MALE NOT OR Last eye exam: 10/25/23 Reason for Visit/CC: patient here for a comprehensive eye exam. wears glasses for reading and tv - vision is clear with them but glasses gives him pressure. 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 is concerned about his pressure being high. OHx: low risk open angle glaucoma suspect OU Pseudophakia OU refractive error (-) Pain: (-) SMITH: (-) Diplopia: (-) Flashes: (-) Floaters: (-) Amaurosis Fugax/Tia's: (-) Eye Injury: (+) Eye Surgery: CE OU, YAG OU (-) TBI (-) FOHx: MHx: Code Description Z77.29 Exposure to potentially hazardous substance ([facility] [id number]) E44.0 Moderate protein-calorie malnutrition (weight for age 60-74 percent of standard) ([facility] [id number]) R52. Pain ([facility] 14928710) I26.99 Acute pulmonary embolism ([facility] [id number]) J44.9 COPD - Chronic Obstructive Pulmonary Disease ([facility] [id number]) F32.A Depression ([facility] 64719718) I82.629 Deep venous thrombosis of upper extremity ([facility] 528364810) Z87.39 H/O: rheumatoid arthritis ([facility] [id number]) M35.00 Sjogren syndrome ([facility] 88386498) I26.99 PE - Pulmonary Embolism ([facility] 38462698) Other: SYSTEMIC MEDICATIONS/OCULAR MEDICATIONS: Active and Recently Outpatient Medications (excluding Supplies): Inactive Outpatient Medications Status = 1) SODIUM CHLORIDE 0.9% IRRG SOLN IRRIGATE DIRECTED TOPICALLY ONCE DAILY Active Non-VA Medications Status = 1) Non-VA ACETAMINOPHEN 500MG TAB 1000MG BY MOUTH NEEDED ACTIVE 2) Non-VA ALBUTEROL 90MCG (CFC-F) 200D ORAL INHL 2 PUFFS BY ACTIVE MOUTH EVERY 6 HOURS NEEDED 3) Non-VA DULOXETINE HCL 20MG EC CAP 20MG BY MOUTH AT BEDTIME ACTIVE 4) Non-VA FLUTICASONE PROP 50MCG 120D NASAL INHL 2 SPRAYS INTO ACTIVE EACH NOSTRIL ONCE DAILY 5) Non-VA GABAPENTIN 300MG CAP 600MG BY MOUTH EVERY EVENING AND ACTIVE 1200MG BY MOUTH AT BEDTIME Indication: FOR NERVE PAIN 6) Non-VA HYDROMORPHONE HCL 2MG TAB 2MG BY MOUTH THREE TIMES ACTIVE DAILY NEEDED 7) Non-VA METOPROLOL TARTRATE 25MG TAB 25MG BY MOUTH TWICE ACTIVE DAILY 8) Non-VA NALOXONE HCL 4MG/SPRAY SOLN NASAL SPRAY 1 SPRAY ONE ACTIVE NOSTRIL ONE TIME NEEDED 9) Non-VA RIVAROXABAN 10MG TAB 10MG BY MOUTH ONCE DAILY ACTIVE Indication: TO PREVENT BLOOD CLOTS 10) Non-VA WEINYEUYNTNI93.5/VILANTEROL2 5MCG 30D INH 1 INHALATION ACTIVE BY MOUTH ONCE DAILY 11) Non-VA UPADACITINIB 15MG 24HR SA TAB 15MG BY MOUTH ONCE ACTIVE DAILY 12 Total Medications ALLERGIES: HEPARIN LAST BP: 120/80 (10/25/2023 14:37) PERTINENT LABS: HEMOGLOBIN A1C; BLOOD Marcus. Date: 04/23/23 14:25 Test Name Result Units Range HEMOGLOBIN A1C 5.6 % 4.0 - 5.6 Current Rx with last BCVA: OD: 0.00 -1.50 x070 20/20-1 OS: -0.75 -1.00 X145 20/20 ADD: +2.50 DVA ( )sc ( x )cc OD 20/20-2 OS 20/20-1 Pupils: OS slightly larger than OD, minimally reactive OU (-)APD EOM: Full all meridia OU, (-) pain/diplopia Confrontation Visual Fisher: Full all meridia OU Subjective: OD +0.25 -1.75 x 070 20/20 OS -0.75 -1.00 x 150 20/20 Add: +2.50 SLE: Lids/Lashes: clear OU Conjunctiva: white and quiet OU Corneas: clear OU Iris: flat and clear OU (-)TID OU Anterior Chamber: deep and quiet OU Angles: open OU Lens: PCIOL OU clear centrally (-)PXF OU TAP @ 10:21am [facility] OD 20,20,14 mm Hg OS 22,20,22 mm Hg Previous Pachymetry: OD: 509 OS: 495 Dilating Drops: 1 gtt 1% Tropicamide OU, 2.5% phenylephrine OU (Pt. ed. on side effects) Vitreous: Syneresis OU C/D (Size and Rim Description) OD 0.50 pink & healthy OS 0.60 pink & healthy (-)notching/hemorrhage OU Macula OD flat and clear OS flat and clear A/V: normal caliber OU Posterior Pole: clear OU Periphery: Flat and intact (-)holes, tears, detachments 360 OU Assessment/Plan: 1. low risk open angle glaucoma suspect OU secondary to moderate cupping OU. IOP is borderline but stable with thinner than average pachymetry OU. Cupping appears healthy and stable. No pseudoexfoliation or pigment dispersion. No known family history of glaucoma. RNFL OCT last visit WNL OU - unable to repeat today due to scheduling issue. All patient's questions answered. Monitor in 6 months with IOP check, RNFL OCT and baseline VF 2. Pseudophakia OU - stable, monitor 3. regular astigmatism OU - order new PALs RTC 6 months or earlier PRN total time: 40 minutes Patient Education: Glaucoma: Patient was educated regarding [...] the patient's ability to participate in testing. patient offered and declined printed medication list Medication Reconciliation: Outpatient: Has the patient been taking medications as documented in the EMLR? YES: The patient has been taking medications as documented in the EMLR. Essential Medication List for Review used to complete this medication reconciliation. INCLUDED IN THIS LIST: Alphabetical list of active outpatient prescriptions dispensed from this VA (local) and dispensed from another VA or [facility] facility (remote) as well as [...] whether with a VA or non-VA provider. JLV Link Data on this list may not be complete. Please check JLV. Allergies/ADRs (Tool #5) FACILITY ALLERGY/ADR -------- [facility] [place] [facility] - NO KNOWN ALLERGIES Med Recon NoGlossary (Tool #1) INCLUDED IN THIS LIST: Alphabetical list of active outpatient prescriptions dispensed from this VA (local) and dispensed from another VA or [facility] facility (remote) as well as inpatient orders (local pending and active), local clinic medications, locally documented non-VA medications, and local prescriptions that have or been discontinued in the past 90 days. Non-VA Meds Last Documented On: Jan 22, 2023 NOTE The display of VA prescriptions dispensed from another OR or [facility] facility (remote) is limited to active outpatient prescription entries matched to National Drug File at the originating site and may not include some items such as investigational drugs, compounds, etc. NOT INCLUDED IN THIS LIST: Medications self-entered by the patient into personal health records (i.e. [employer]) are NOT included in this list. Non-VA medications documented outside this OR, remote inpatient orders (regardless of status) and [...] SOLN (Status = Discontinued) IRRIGATE UDP TOPICALLY ONCE DAILY Rx# [id number] Last Released: Days Supply: Rx Expiration Date: 08/25/24 Refills Remainin OUTPT SODIUM CHLORIDE 0.9% IRRG SOLN (Status = ) IRRIGATE DIRECTED TOPICALLY ONCE DAILY Rx# [id number] Last Released: 08/01/24 Qty/Days Supply: Rx Expiration Date: 08/31/24 Refills Remainin Non-VA LZHAGDPKYLRO15.5/VILANTEROL2 5MCG 30D INH UPORTLUSMXHV97.5/VILANTEROL2 5MCG 30D INH INHALE 1 INHALATION BY MOUTH ONCE DAILY Non-VA UPADACITINIB 15MG 24HR SA TAB TAKE ONE TABLET BY MOUTH ONCE DAILY Medication prescribed by Non-VA provider. SUPPLIES OUTPT BANDAGE,GAUZE 4.5IN X 4.1YD STERILE (Status = ) USE 2 BANDAGES PER DAY TOPICALLY ONCE DAILY Rx# [id number] Last Released: 05/23/24 Qty/Days Supply: Rx Expiration Date: 06/16/24 Refills Remainin OUTPT DEPEND UNDERWEAR,MAXIMUM,MEN LARGE (Status = Active) USE 1 BRIEF DIRECTED TWICE DAILY Rx# [id number] Last Released: 08/03/24 Qty/Days Supply: Rx Expiration Date: 10/22/24 Refills Remainin Indication: INCONTINENCE OUTPT DRESS,KERRAMAX CARE 4IN X 9IN (Status = ) APPLY 1 DRESSING TOPICALLY ONCE DAILY DIRECTED Rx# [id number] Last Released: 05/30/24 Qty/Days Supply: Rx Expiration Date: 06/16/24 Refills Remainin OUTPT DRESSING NON-ADHERE OIL/EMULSION [id number] (Status = ) APPLY 1 DRESSING TOPICALLY ONCE DAILY Rx# [id number] Last Released: 05/23/24 Qty/Days Supply: Rx Expiration Date: 06/16/24 Refills Remainin OUTPT DRESSING,ALGINATE/CMC 4IN X 4IN (Status = Active) APPLY 1 DRESSING TOPICALLY EVERY OTHER DAY Rx# [id number] Last Released: 08/15/24 Qty/Days Supply: Rx Expiration Date: 09/08/24 Refills Remainin OUTPT DRESSING,HYDRALOCK SA 6IN X 10IN #[id number] (Status = ) APPLY 1 DRESSING TOPICALLY TWICE DAILY FOR WOUND CARE Rx# [id number] Last Released: 08/23/23 Qty/Days Supply: Rx Expiration Date: 08/17/24 Refills Remainin Indication: FOR WOUND CARE OUTPT DRESSING,RESTORE 6IN X 8IN H#[id number] (Status = ) APPLY 1 DRESSING TOPICALLY ONCE DAILY Rx# [id number] Last Released: Qty/Days Supply: Rx Expiration Date: 06/16/24 Refills Remainin OUTPT DRESSING,RESTORE,CA ALGIN 2X2IN H#[id number] (Status = Discontinued) APPLY 1 DRESSING ONCE DAILY Rx# [id number] Last Released: QtyDays Supply: Rx Expiration Date: 08/25/24 Refills Remainin OUTPT GAUZE PAD 4IN X 4IN NONSTERILE (Status = ) USE 1 SPONGE TOPICALLY 4 TIMES ONCE DAILY Rx# [id number] Last Released: 05/23/24 Qty/Days Supply: Rx Expiration Date: 06/22/24 Refills Remainin OUTPT GAUZE PAD 4IN X 4IN NONSTERILE (Status = ) APPLY GAUZE(S) TOPICALLY FOUR TIMES A DAY Rx# [id number] Last Released: 08/01/24 Qty/Days Supply: Rx Expiration Date: 08/25/24 Refills Remainin OUTPT TAPE,PLASTIC 1IN X 10YD TRANSPORE (Status = ) USE 1 PIECE TOPICALLY ONCE DAILY FOR WOUND CARE Rx# [id number] Last Released: 05/24/24 Qty/Days Supply: 08/10 Rx Expiration Date: 06/16/24 Refills Remainin /flor/ TR BARRY OD Applied Exercise Physiologist Signed: 09/07/2024 17:01 TR BARRY [facility] [place] [facility]
--- OUTSIDE RECORDS SUMMARY | 2024-09-25 12:19 | XMS_ITS | Clinical Summary ---
Author Organization [facility] Facility Address [address] [place] [address] Care Team Providers Care Bag Bailer Name Role Phone Kai Stroud MD Primary Care Provider [phone] Social History Tobacco Use Types Packs/Day Years [...] Insurance AETNA MEDICARE AENA MEDICARE Care Teams Bag Bailer Relationship Specialty Start Date End Date Kia Stroud MD [facility] [address] [place], [place] PCP - General Internal Medicine 12/04/21
--- OUTSIDE RECORDS SUMMARY | 2024-09-25 12:19 | XMS_ITS | Encounter Summary ---
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 Role Phone LYDIA MG [...] Holland's Name Patient's Relationship to Policy Holland [facility] MEDICARE ADVANTAGE MCR ([facility]) Jul 12, 2023 [id number] [phone] [place] [facility] MEDICARE ADVANTAGE MCR ([facility]) Jul 12, 2023 [id number] [phone] [place] [facility] MEDIC[facility] ADVANTAGE MCR ([facility]) Jul 12, 2019 [id number] [place] [facility] MEDICARE ADVANTAGE MCR ([facility]) Jul 12, 2018 [id number] [phone] QUEENIESC SIMÓNIAM PATIENT [place] [employer] [facility] (WNR) MEDICARE ADVANTAGE [facility] (WNR) Sep 09, 2017 [id number] [phone] MESFIN JEROMEIAM PATIENT [place] [facility] [employer] [facility] (WNR) MEDICARE ADVANTAGE [facility] (WNR) Jul 12, 2017 [id number] MESFIN JEROME PATIENT Selected Encounter This section includes the information on record at [place] for the Encounter. Date/Time Encounter Type Encounter Description Reason Provider Source Oct 25, 2023 04:15 PM ECHO EXAM OF EYE THICKNESS OPTOMETRY ICD-10-CM H40.013 Open angle with borderline findings, low risk, bilateral RENATE LEMUS [place] Encounter Template Text not used by [place] Assessments - Encounter Diagnoses This section includes the primary and secondary diagnoses documented for the Encounter. Date/Time Primary/Secondary Diagnosis Diagnosis Name Provider Source Oct 30, 2023 01:46 PM PRIMARY Open angle with borderline findings, low risk, bilateral [facility]ATE LEMUS [facility] [place] [facility] Plan of Treatment: Future Appointments (+ 6 months) and Future Tests (+/- 45 days) The Plan of Treatment section includes future care activities for the patient from all [place] treatmentfacilities. This section includes future appointments and future orders which are active, pending or scheduled. Future Appointments This section includes appointments that were scheduled to occur 6 months from the date of the Encounter, up to a maximum of 20 appointments. The data comes from all [place] treatment facilities. Appointment Date/Time Appointment Type Appointme nt Facility Name November 10, 2023 08:00 AM AMBULATORY - MEDICINE [facility] [facility] Jan 24, 2024 11:00 AM AMBULATORY - NONE [facility] [place] [facility] Lab Results: +/- 30 days of the encounter This section includes the Chemistry and Hematology Lab Results on record with [place] for the patient. Radiology Reports and Pathology Reports are provided separately, in subsequent sections. Lab Results This section contains the Chemistry/Hematology Results that were resulted 30 days before or 30 daysafter the date of the Encounter. Date/Time Source Result Type Result - Unit Interpretation Reference Range Comment Oct 15, 2023 11:06 AM [facility] LIVER FUNCTION Specimen Type: SERUM No comment entered. Ordering Provider: PO SAHA Report Released Date/Time: Oct 15, 2023 11:05 AM Reporting Lab: [facility] [address] [facility] [address] Performing Lab: [facility] [address] [facility] [address] PROTEIN,TOTAL 7.1 g/dL 6.0-8.3 ALBUMIN 3.8 g/dL 3.5-5.0 ALKALINE PHOSPHATASE 50 U/L 40-150 AST 15 U/L 5-34 ALT 26 U/L BILIRUBIN, TOTAL 0.5 mg/dL 0.2-1.2 Oct 15, 2023 11:06 AM [facility] BASIC METABOLIC PANEL (fasting) Specimen Type: SERUM No comment entered. Ordering Provider: OP SAHA Report Released Date/Time: Oct 15, 2023 11:05 AM Reporting Lab: [facility] [address] [facility] [address] Performing Lab: [facility] [address] [facility] [address] UREA NITROGEN 18 mg/dL 7-25 GLUCOSE 95 mg/dL 65-100 SODIUM 141 mmol/L 135-145 POTASSIUM 4.2 mmol/L 3.5-5.0 CHLORIDE 106 mmol/L 100-110 CO2 25 meq/L 20-30 CREATININE, Serum 1.37 mg/dL 0.50-1.40 eGFR(CKD-EPI 2020) 53 mL/min L >60 Oct 15, 2023 11:06 AM [facility] LIPID PANEL FASTING Specimen Type: SERUM No comment entered. Ordering Provider: PO SAHA Report Released Date/Time: Oct 15, 2023 11:05 AM Reporting Lab: [facility] [address] [facility] [address] Performing Lab: [address] [address] CHOLESTEROL 179 mg/dL TRIGLYCERIDE 123 mg/dL 0-150 LDL calculated 111 mg/dL 0-129 CHOL/HDL 4.2 HDL CHOLESTEROL 43 mg/dL 40-60 Oct 15, 2023 11:06 AM [facility] IRON & TIBC PANEL Specimen Type: SERUM No comment entered. Ordering Provider: PO SAHA Report Released Date/Time: Oct 15, 2023 11:05 AM Reporting Lab: [facility] [address] [facility] [address] Performing Lab: [facility] [address] [facility] [address] TIBC 338 ug/dL 204-475 IRON 51 ug/dL 40-160 Transferrin Saturation 15.1 L 20.0-50.0 Oct 15, 2023 11:06 AM [facility] CBC AND DIFF (AUTO) Specimen Type: BLOOD No comment entered. Ordering Provider: PO SAHA Report Released Date/Time: Oct 15, 2023 11:05 AM Reporting Lab: [facility] [address] [facility] [address] Performing Lab: [facility] [address] [facility] [address] WBC 6.76 10*3/uL 4.50-11.00 RBC 5.57 10*6/uL 4.23-5.66 HGB 14.9 g/dL 12.8-17 HCT 47.5 39.2-50.4 MCV 85.3 fL 82-99 MCHC 31.4 g/dL 30.8-35.1 PLT 243 10*3/uL 140-360 RDW-CV 15.0 12.0-16.0 Weston, Abs 0.49 10*3/uL 0.30-1.10 MCH 26.8 pg 26.2-32.6 Neut % 67.8 43.7-75.8 Lymph % 21.9 14.0-42.3 Weston % 7.2 5.1-13.7 Eos % 2.1 0.4-6.8 [...] Source Oct 25, 2023 02:37 PM 120/80 [facility] [place] [facility] [facility] Oct 25, 2023 02:37 PM 122/90 [facility] [facility] Oct 25, 2023 02:37 PM 70 144/80 [facility] Social History: Smoking Status (Most current) and Tobacco Use (All prior to encounter date) This section includes the most current, and the historical, smoking and tobacco- related health factors from the [place] facility where the Encounter took place. Current Smoking Status This section includes the most current smoking, or tobacco-related health factor, from the [place] facility where the Encounter took place. Date/Time Current Smoking Status Comment Facil ity Jan 22, 2023 01:30 PM [facility] Tobacco Use History This section includes a history of the smoking, or tobacco-related health factors, that were collected on or before the date of the Encounter. The data comes from the [place] facility where the Encounter took place. Date/Time Smoking Status/Tobacco Use Comment F acility Jan 22, 2023 01:30 PM VA-TOBACCO QUIT 5 TO < 15 YRS [facility] [place] [facility] Feb 17, 2022 04:37 PM VA-TOBACCO FORMER USER [facility] [facility] Feb 17, 2022 04:37 PM VA-TOBACCO QUIT 1 TO < 5 YRS [facility] Advance Directives: All historical and current Section Date Range: From patient's date of to the date document was created. This section includes ALL of a patient's completed or amended [place] Advance and Rescinded Directives. The entries below indicate that a directive exists for the patient, but an actual copy is not included with this document. The data comes from all [place] facilities. Date Advance Directives Provider Source Oct 26, 2023 ADVANCE DIRECTIVE JADIEL KRAFTSSJohn Pavon [facility] CN TRL [facility] [place] [facility] Encounter Notes: All associated encounter notes [...] Signed: 10/30/2023 13:46 LEANNE FAITH CNTRL [facility]
--- OUTSIDE RECORDS SUMMARY | 2024-09-25 12:19 | XMS_ITS | Encounter Summary ---
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 Role Phone LYDIA MG Primary Care [...] Holland's Name Patient's Relationship to Policy [facility] ([facility] MEDICARE ADVANTAGE MCR ([facility]) Jul 12, 2023 [id number] [phone] [place] PATIENT AETNA [facility] (WNR) MEDICARE ADVANTAGE MCR ([facility]) Jul 12, 2023 [id number] [phone] [place] PATIENT AETNA [facility] (WNR) MEDICARE ADVANTAGE MCR (R) Jul 12, 2019 [id number] [place] [facility]IC[facility] ADVANTAGE [facility] (WNR) Jul 12, 2018 [id number] [phone] [facility] EMPIRE [employer] [facility] (WNR) MEDICARE [facility] (WNR) Sep 09, 2017 [id number] [phone] [facility] PATIENT EMPIRE [employer]UE [employer]OSS [facility] (WNR) MEDICARE [facility] (WNR) Jul 12, 2017 [id number] [place]EN[place] SIMÓNIA PATIENT Selected Encounter This section includes the information on record at VA for the Encounter. Date/Time Encounter Type Encounter Description Reason Provider Source Oct 25, 2023 03:00 PM COMPRE OPH EXAM NEW PT 1/> OPTOMETRY ICD-10-CM H40.013 Open angle with borderline findings, low risk, bilateral RENATE LEMUS I[place] Encounter Template Text not used by VA Assessments - Encounter Diagnoses This section includes the primary and secondary diagnoses documented for the Encounter. Date/Time Primary/Secondary Diagnosis Diagnosis Name Provider Source Oct 27, 2023 03:55 PM PRIMARY Open angle with borderline findings, low risk, bilateral RENATE LEUMS [place] [facility] [place] [facility] Oct 27, 2023 03:55 PM SECONDARY Presence of intraocular lens RENATE LEMUS [place] [facility] [place] [facility] Plan of Treatment: Future Appointments (+ [...] 10, 2023 08:00 AM AMBULATORY - MEDICINE RI [facility] [place] [facility] Jan 24, 2024 11:00 AM AMBULATORY - NONE [place] [facility] [place] [facility] Lab Results: +/- 30 days of [...] Range Comment Oct 15, 2023 11:06 AM [facility] LIVER FUNCTION Specimen Type: SERUM No comment entered. Ordering Provider: PO SAHA Report Released Date/Time: Oct 15, 2023 11:05 AM Reporting Lab: [address] [address] Performing Lab: [address] [address] PROTEIN,TOTAL 7.1 g/dL 6.0-8.3 ALBUMIN 3.8 g/dL 3.5-5.0 ALKALINE PHOSPHATASE 50 U/L 40-150 AST 15 U/L 5-34 ALT 26 U/L BILIRUBIN, TOTAL 0.5 mg/dL 0.2-1.2 Oct 15, 2023 11:06 AM [facility] BASIC METABOLIC PANEL (fasting) Specimen Type: SERUM No comment entered. Ordering Provider: PO SAHA Report Released Date/Time: Oct 15, 2023 11:05 AM Reporting Lab: [address] [address] Performing Lab: [address] [address] UREA NITROGEN 18 mg/dL 7-25 GLUCOSE 95 mg/dL 65-100 SODIUM 141 mmol/L 135-145 POTASSIUM 4.2 mmol/L 3.5-5.0 CHLORIDE 106 mmol/L 100-110 CO2 25 meq/L 20-30 CREATININE, Serum 1.37 mg/dL 0.50-1.40 eGFR(CKD-EPI 2020) 53 mL/min L >60 Oct 15, 2023 11:06 AM [facility] LIPID PANEL FASTING Specimen Type: SERUM No comment entered. Ordering Provider: PO SAHA Report Released Date/Time: Oct 15, 2023 11:05 AM Reporting Lab: [address] [address] Performing Lab: [facility] [address] [address] CHOLESTEROL 179 mg/dL TRIGLYCERIDE 123 mg/dL 0-150 LDL calculated 111 mg/dL 0-129 CHOL/HDL 4.2 HDL CHOLESTEROL 43 mg/dL 40-60 Oct 15, 2023 11:06 AM [facility] IRON & TIBC PANEL Specimen Type: SERUM No comment entered. Ordering Provider: PO SAHA Report Released Date/Time: Oct 15, 2023 11:05 AM Reporting Lab: [facility] [address] [facility] [address] Performing Lab: [facility] [address] [address] TIBC 338 ug/dL 204-475 IRON 51 ug/dL 40-160 Transferrin Saturation 15.1 L 20.0-50.0 Oct 15, 2023 11:06 AM [facility] CBC AND DIFF (AUTO) Specimen Type: BLOOD No comment entered. Ordering Provider: PO SAHA Report Released Date/Time: Oct 15, 2023 11:05 AM Reporting Lab: [facility] [address] [facility] [address] Performing Lab: [facility] [address] [address] WBC 6.76 10*3/uL 4.50-11.00 RBC 5.57 10*6/uL 4.23-5.66 HGB 14.9 g/dL 12.8-17 HCT 47.5 39.2-50.4 MCV 85.3 fL 82-99 MCHC 31.4 g/dL 30.8-35.1 PLT 243 10*3/uL 140-360 RDW-CV 15.0 12.0-16.0 [place], Abs 0.49 10*3/uL 0.30-1.10 MCH 26.8 pg 26.2-32.6 Neut % 67.8 43.7-75.8 Lymph % 21.9 14.0-42.3 [place] % 7.2 5.1-13.7 Eos % 2.1 0.4-6.8 [...] Source Oct 25, 2023 02:37 PM 120/80 [place] [facility] [place] [facility] Oct 25, 2023 02:37 PM 122/90 [place] [facility] [place] [facility] Oct 25, 2023 02:37 PM 70 144/80 [place] [facility] [place] [facility] Social History: Smoking Status (Most current) [...] 22, 2023 01:30 PM VA-TOBACCO FORMER USER [place] [facility] [place] [facility] Tobacco Use History This section includes a history of the smoking, or tobacco-related health factors, that were collected on or before the date of the Encounter. The data comes from the [place] facility where the Encounter took place. Date/Time Smoking Status/Tobacco Use Comment F acility Jan 22, 2023 01:30 PM VA-TOBACCO QUIT 5 TO < 15 YRS [place] [facility] [place] [facility] Feb 17, 2022 04:37 PM VA-TOBACCO FORMER USER [place] [facility] [place] [facility] Feb 17, 2022 04:37 PM VA-TOBACCO QUIT 1 TO < 5 YRS [place] [facility] [place] [facility] Advance Directives: All historical and current [...] Oct 26, 2023 ADVANCE DIRECTIVE MARGARITA KRAFT [facility] T[facility] Encounter Notes: All associated encounter notes This section contains the clinical notes associated to the Encounter. Date/Time Encounter Note(s) Provider Source Oct 25, 2023 04:19 PM OPTOMETRY NOTE: LOCAL TITLE: OPTOMETRY NOTE STANDARD TITLE: OPTOMETRY NOTE DATE OF NOTE: OCT 25, 2023@16:19 ENTRY DATE: OCT 25, 2023@16:20:01 AUTHOR: ISAIAH LEMUS COSIGNER: URGENCY: STATUS: COMPLETED I saw this patient in conjunction with the student and agree with stated findings and plan as noted below after reviewing both the history and repeating lorenz elements of the physical exam now. Patient new [place] eye clinic with history of previous bilateral cataract surgery with YAG capsulotomy left eye presents today for comprehensive eye examination complaining of decreased distance vision while trying to read print on the television. His last eye examination was 2 to 3 years ago in [place]. Anterior segment evaluation shows rosacea facies with [...] this VA (local) and dispensed from another [place] or [facility] facility (remote) as well as inpatient orders [...] JLV. Allergies/ADRs (Tool #5) FACILITY ALLERGY/ADR -------- [place] [facility] [place] [facility] - NO KNOWN ALLERGIES Med. Reconciliation (Tool #1) INCLUDED IN THIS LIST: Alphabetical list of active outpatient prescriptions dispensed from this VA (local) and dispensed from another [place] or [facility] facility (remote) as well as inpatient orders (local pending and active), local clinic medications, locally documented non-VA medications, and local prescriptions that have or been discontinued in the past 90 days. Non-VA Meds Last Documented On: Jan 22, 2023 NOTE The display of VA prescriptions dispensed from another [place] or [facility] facility (remote) is limited to active outpatient prescription entries matched to National Drug File at the originating site and may not include some items such as investigational drugs, compounds, etc. NOT INCLUDED IN THIS LIST: Medications self-entered by the patient into personal health records (i.e. [place]) are NOT included in this list. Non-VA medications documented outside this [place], remote inpatient orders (regardless of status) and [...] IRRIGATE DIRECTED TOPICALLY EVERY OTHER DAY Rx# [id number] Last Released: 07/29/23 Qty/Days Supply: Rx Expiration Date: 08/20/23 Refills Remainin OUTPT SODIUM CHLORIDE 0.9% IRRG SOLN (Status = Discontinued) IRRIGATE UDP TOPICALLY EVERY OTHER DAY Rx# [id number] Last Released: Supply: Rx Expiration Date: 10/01/23 Refills Remainin OUTPT SODIUM CHLORIDE 0.9% IRRG SOLN (Status = ) IRRIGATE DIRECTED TOPICALLY EVERY OTHER DAY Rx# [id number] Last Released: 09/08/23 Qt Supply: Rx Expiration Date: 10/03/23 Refills Remainin Non-VA TRBUNCPHJQUG79.5/VILANTEROL 25MCG 30D INH AULDNFFBDDIK08.5/VILANTEROL 25MCG 30D INH INHALE 1 INHALATION BY MOUTH ONCE DAILY Non-VA UPADACITINIB 15MG 24HR SA TAB TAKE ONE TABLET BY MOUTH ONCE DAILY Medication prescribed by Non-VA provider. SUPPLIES OUTPT BRIEF,PROTECTIVE SUPER ABS LG ATTENDS (Status = Discontinued) USE 1 BRIEF DIRECTED TWICE DAILY NEEDED INCONTINENCE Rx# [id number] Last Released: 04/26/23 Qt/ Supply: Rx Expiration Date: 04/23/24 Refills Remainin Indication: INCONTINENCE OUTPT DEPEND UNDERWEAR,MAXIMUM,MEN LARGE (Status = Active) USE 1 BRIEF DIRECTED TWICE DAILY Rx# [id number] Last Released: Supply: Rx Expiration Date: 10/22/24 Refills Remainin Indication: INCONTINENCE OUTPT DRESSING NON-ADHERE OIL/EMULSION [id number] (Status = ) APPLY 1 DRESSING TOPICALLY EVERY OTHER DAY Rx# [id number] Last Released: 08/02/23 Qty/Days Supply: Rx Expiration Date: 08/20/23 Refills Remainin OUTPT DRESSING NON-ADHERE OIL/EMULSION [id number] (Status = ) APPLY 1 DRESSING TOPICALLY EVERY OTHER DAY Rx# [id number] Last Released: 09/07/23 Qty/Days Supply: Rx Expiration Date: 10/01/23 Refills Remainin OUTPT DRESSING,ALLEVYN GNTL BORDER 3X3IN #0276 (Status = Discontinued) APPLY 1 DRESSING TOPICALLY EVERY OTHER DAY Rx# [id number] Last Released: 08/04/23 Qty/Days Supply: Rx Expiration Date: 08/20/23 Refills Remainin OUTPT DRESSING,AQUACEL AG ADVAN 4X5IN C#[id number] (Status = ) APPLY 1 DRESSING TOPICALLY EVERY OTHER DAY Rx# [id number] Last Released: 09/07/23 Qty/Days Supply: Rx Expiration Date: 10/01/23 Refills Remainin OUTPT DRESSING,HYDRALOCK SA 6IN X 10IN #54126 (Status = Active) APPLY 1 DRESSING TOPICALLY TWICE DAILY FOR WOUND CARE Rx# [id number] Last Released: 08/23/23 Qty/Days Supply: Rx Expiration Date: 08/17/24 Refills Remainin Indication: FOR WOUND CARE OUTPT DRESSING,MEPILEX BORDR 8.7X9.8IN #523571 (Status = ) APPLY 1 DRESSING DIRECTED EVERY OTHER DAY Rx# [id number] Last Released: 08/02/23 Qty/Days Supply: Rx Expiration Date: 08/20/23 Refills Remainin OUTPT DRESSING,MEPILEX BORDR 8.7X9.8IN #[id number] (Status = ) APPLY 1 DRESSING DIRECTED EVERY OTHER DAY Rx# [id number] Last Released: 09/07/23 Qty/Days Supply: Rx Expiration Date: 10/01/23 Refills Remainin OUTPT GAUZE PAD 4IN X 4IN NONSTERILE (Status = ) APPLY GAUZE(S) TOPICALLY EVERY OTHER DAY Rx# [id number] Last Released: 08/02/23 Qty/Days Supply: / Rx Expiration Date: 10/19/23 Refills Remainin OUTPT PAD,ABDOMINAL 5 X 9 STERILE (Status = ) USE 1 PAD TOPICALLY EVERY OTHER DAY Rx# [id number] Last Released: 08/02/23 Qty/Days Supply: Rx Expiration Date: 08/20/23 Refills Remainin OUTPT PAD,ABDOMINAL 5 X 9 STERILE (Status = ) USE 1 PAD TOPICALLY EVERY OTHER DAY Rx# [id number] Last Released: 09/07/23 Qty/Days Supply: Rx Expiration Date: 10/01/23 Refills Remainin OUTPT TAPE,MEDIPORE H SOFT 1IN X 10YD 3M#2861 (Status = ) USE 1 PIECE TOPICALLY EVERY OTHER DAY Rx# [id number] Last Released: 08/02/23 Qty/Days Supply: Rx Expiration Date: 08/20/23 Refills Remainin OUTPT TAPE,MEDIPORE H SOFT 1IN X 10YD 3M#2861 (Status = ) USE 1 PIECE TOPICALLY EVERY OTHER DAY Rx# [id number] Last Released: 09/07/23 Qty/Days Supply: Rx Expiration Date: 10/01/23 Refills Remainin PHARMACY TERMS AND POSSIBLE PATIENT ACTIONS INPT = [place] inpatient order IV = [place] intravenous medication OUTPT = [place] outpatient prescription PHARMACY POSSIBLE PATIENT TERMS EXPLANATION ACTIONS -------- ----- ACTIVE A prescription that can be If you have refills, filled at the local [place] pharmacy. you may request a refill of this prescription from your [place] pharmacy. CLINIC A medication you received during If you have questions a visit to a [place] clinic or about this medication emergency department. contact your [place] healthcare team. DISCONTINUED A prescription your provider has Contact your VA stopped. It is no longer healthcare team if you available to be sent to you or need more of this picked up at the [place] pharmacy medication. window. A prescription which is [...] the VA. Or, it may be an nkmg-ama-hrcyzux (OTC), herbal, dietary supplements or sample medication. [...] An active prescription that is Contact your [place] not scheduled to be filled yet. pharmacy if you need You should receive it before this medication now. you run out. Declines printed copy of medication list now /es/ Isaiah Lemus CHIEF OF OPTOMETRY Signed: 10/27/2023 16:00 ISAIAH LEMSU [place] [facility] [place] [facility] Oct 25, 2023 02:53 PM OPTOMETRY [...] 5. COPD - Chronic Obstructive Pulmonary Disease ([facility] [id number]) 6. Depression ([facility] [id number]) 7. Deep venous thrombosis of upper extremity 8. H/O: rheumatoid arthritis 9. Sjogren syndrome 10. PE - Pulmonary Embolism ([facility] [id number]) Active Outpatient Medications (including Supplies): Active Outpatient Medications Status 1) DEPEND UNDERWEAR,MAXIMUM,MEN LARGE USE 1 BRIEF ACTIVE DIRECTED TWICE DAILY 2) DRESSING,HYDRALOCK SA 6IN X 10IN #31483 APPLY 1 ACTIVE DRESSING TOPICALLY TWICE DAILY [...] BY MOUTH ONCE DAILY ACTIVE 10) Non-VA LHLZZVZFAMXV21.5/VILANTEROL 25MCG 30D INH 1 ACTIVE INHALATION BY [...] noticing the 3-4 years ago. Pt. uses NVO readers currently. LINUS: over 3-4 years ago, in [place]. OHx: 1. Pseudophakia OU 2. Refractive Error [...] OF OPTOMETRY Cosigned: 10/27/2023 15:55 LEANNE FAITH [place] [facility]
--- OUTSIDE RECORDS SUMMARY | 2024-09-25 12:19 | XMS_ITS | Encounter Summary ---
Author Name [place] Organization [place] Address [address] [place] [id number] Care Team Providers Care Drafter Civil Engineering Name Role Phone LYDIA MG Primary Care [...] Holland's Name Patient's Relationship to Policy Holland [facility] ([facility]) MEDICARE ADVANTAGE MCR ([facility]) Jul 12, 2023 [id number] [phone] [place] PATIENT AETNA [facility] ([facility]) MEDICARE ADVANTAGE MCR ([facility]) Jul 12, 2023 [id number] [phone] [place] PATIENT AETNA [facility] (WNR) MEDICARE ADVANTAGE MCR ([facility]) Jul 12, 2019 [id number] [phone] [place] [facility]) MEDICARE ADVANTAGE MCR ([facility]) Jul 12, 2018 [id number] [phone] MESFIN JEROME PATIENT EMPIRSavanah [employer] [facility] (WNR) MEDICARE ADVANTAGE [facility] (WNR) Sep 09, 2017 [id number] MESFIN JEROMEIAAleksandr PATIENT [place]IRSavan[place] [employer] [facility] (WNR) MEDICARE ADVANTAGE [facility] (WNR) Jul 12, 2017 [id number] MESFIN JEROME PATIENT Selected Encounter This section includes the information on record at [place] for the Encounter. Date/Time Encounter Type Encounter Description Reason Provider Source Sep 07, 2024 11:18 AM FIT SPECTACLES MULTIFOCAL OPTOMETRY TR BARRY Encounter Template Text not used by [place] Plan of Treatment: Future Appointments (+ 6 months) and Future Tests (+/- 45 days) The Plan of Treatment section includes future care activities for the patient from all [place] treatmentfacilities. This section includes future appointments and future orders which are active, pending or scheduled. Future Appointments This section includes appointments that were scheduled to occur 6 months from the date of the Encounter, up to a maximum of 20 appointments. The data comes from all [place] treatment facilities. Appointment Date/Time Appointment Type Appointme nt Facility Name Oct 20, 2024 01:30 PM AMBULATORY - MEDICINE [facility] Social History: Smoking Status (Most current) [...] Date/Time Current Smoking Status Comment Facil ity Jun 01, 2024 10:57 AM VA-TOBACCO USE FOR AKANKSHA [facility] Tobacco Use History This section includes a history of the smoking, or tobacco-related health factors, that were collected on or before the date of the Encounter. The data comes from the [place] facility where the Encounter took place. Date/Time Smoking Status/Tobacco Use Comment F acility Jun 01, 2024 10:57 AM VA-TOBACCO USE FOR AKANKSHA CIGARETTES [facility] Jan 22, 2023 01:30 PM VA-TOBACCO FORMER USER [place] [facility] [place] [facility] Jan 22, 2023 01:30 PM VA-TOBACCO QUIT 5 TO < 15 YRS [facility] [place] [facility] Feb 17, 2022 04:37 PM VA-TOBACCO FORMER USER [place] [facility] [place] [facility] Feb 17, 2022 04:37 PM VA-TOBACCO QUIT 1 TO < 5 YRS [facility] Advance Directives: All historical and current Section Date Range: From patient's date of to the date document was created. This section includes ALL of a patient's completed or amended [place] Advance and Rescinded Directives. The entries below indicate that a directive exists for the patient, but an actual copy is not included with this document. The data comes from all [place] facilities. Date Advance Directives Provider Source Oct 26, 2023 ADVANCE DIRECTIVE [facility] Encounter Notes: All associated encounter notes This section contains the clinical notes associated to the Encounter. Date/Time Encounter Note(s) Provider Source Sep 07, 2024 11:18 AM OPTOMETRY NOTE: LOCAL TITLE: OPTOMETRY NOTE STANDARD TITLE: OPTOMETRY NOTE DATE OF NOTE: SEP 07, 2024@11:18 ENTRY DATE: SEP 07, 2024@11:18:50 AUTHOR: LIZ WILLS EXP COSIGNER: URGENCY: STATUS: COMPLETED OPTOMETRY NOTE Has ADDENDA Repaired one pair, replaced broken buddhism covers. Adjusted. The quote provided below is for informational purposes only. Please verify prior to the creation of a purchase order. VALENTÍN [place] [id number] RX INFORMATION OD +0.25 -1.75 X70 Add:+2.50 Pzm:0.00 Dir: Prz2:0.00 Dir2: OS -0.75 -1.00 X150 Add:+2.50 Pzm:0.00 Dir: Prz2:0.00 Dir2: FITTING INFORMATION FPD: NPD: [place]:R:30 L:30 SEG HT:R:24 L:24 Tint:None Shade:None VA Billable Items FRAME: FX6 BLACK 53-20-145 Right Lens: POLY VA PROGRESSIVE PHOTOCHROMIC SCHREIBER 1.586 POLY Left Lens: POLY VA PROGRESSIVE PHOTOCHROMIC SCHREIBER 1.586 POLY KLEAR ANTI-REFLECTIVE COATING CLIN items [employer] - AR Coating 0004 - Progressive - Glass Plastic Poly 0005 - Transition /flor/ LIZ WILLS EVENT CREW TECHNICIAN Signed: 09/07/2024 11:21 Receipt Acknowledged By: 09/07/2024 15:15 /flor/ Marilee Damon Optometry Health Director Behavioral Health 09/07/2024 ADDENDUM STATUS: COMPLETED PDS Garage Construction Equipment Mechanic fit patient with 1 pair(s) of pal eyeglasses on 09/07/2024 as directed by provider. Optometry Health Director Behavioral Health entered consult(s) for order on behalf of provider. MIYA Cornejo also repaired one pair, replaced broken buddhism covers, and adjusted. /flor/ Marilee Damon Optometry Health Director Behavioral Health Signed: 09/07/2024 15:17 [facility]
--- OUTSIDE RECORDS SUMMARY | 2024-09-25 12:19 | XMS_ITS | Encounter Summary ---
Author Name [facility] [place] Organization [facility] [place] Address [address] [place] [id number] Care Team Providers Care Swing Saw Operator Name Role Phone LYDIA MG Primary [...] Name Patient's Relationship to Policy [place] AETNA [facility] (WNR) MEDICARE ADVANTAGE [facility] (R) Jul 12, 2023 [id number] [phone] [place] PATIENT AETNA [facility] (WNR) MEDICARE ADVANTAGE [facility] ([facility]) Jul 12, 2023 [id number] [phone] [place] PATIENT AETNA [facility] (WNR) MEDICARE [facility] (R) Jul 12, 2019 [id number] [phone] [place] PATIENT AETNA [facility] (WNR) MEDICARE ADVANTAGE [facility] (WNR) Jul 12, 2018 [id number] [phone] [place]EN[place]WA HÉCTOR PATIENT EMPIRE [employer] MCR (WNR) MEDICARE [facility] (WNR) Sep 09, 2017 [id number] [phone] [facility] [place] BLUE [employer]OSS MCR (WNR) MEDICARE [facility] (WNR) Jul 12, 2017 [id number] QUEENIE[place] HÉCTOR PATIENT Selected Encounter This section includes the information on record at [place] for the Encounter. Date/Time Encounter Type Encounter Description Reason Provider Source Jan 24, 2024 01:55 PM QNHP OL DIG ASSMT&MGMT 5-10 PULMONARY/CHEST ICD-10-CM Z12.2 Encntr screen for malignant neoplasm of respiratory organs NEFTALI TEJEDA CCA IHE Encounter Template Text not used by [place] Assessments - Encounter Diagnoses This section includes the primary and secondary diagnoses documented for the Encounter. Date/Time Primary/Secondary Diagnosis Diagnosis Name Provider Source Jan 24, 2024 02:07 PM PRIMARY Encntr screen for malignant neoplasm of respiratory organs NEFTALI TEJEDA CCA L [facility] [place] [facility] Plan of Treatment: Future Appointments [...] 28, 2024 11:00 AM AMBULATORY - MEDICINE [facility] [place] [facility] Social History: Smoking Status (Most [...] place. Date/Time Current Smoking Status Comment Facil itmickie Jan 22, 2023 01:30 PM VA-TOBACCO FORMER USER [facility] Tobacco Use History This section includes a history of the smoking, or tobacco-related health factors, that were collected on or before the date of the Encounter. The data comes from the [place] facility where the Encounter took place. Date/Time Smoking Status/Tobacco Use Comment F acility Jan 22, 2023 01:30 PM VA-TOBACCO QUIT 5 TO < 15 YRS [facility] Feb 17, 2022 04:37 PM VA-TOBACCO [facility] Feb 17, 2022 04:37 PM [place]-TOBACCO QUIT 1 TO < 5 YRS [facility] Advance Directives: All historical and current [...] Oct 26, 2023 ADVANCE DIRECTIVE MARGARITA KRAFT [facility] Radiology Reports: +/- 30 days of [...] the Encounter. The data comes from all [place] treatment facilities. Date/Time Radiology Report Provider Source Jan 24, 2024 10:28 AM LDCT LUNG CANCER SCREENING: VALENTÍN GIPSON [id number] -[id number] M Exm Date: JAN 24, 2024@10:28 Req Phys: VALENTÍN AMADOR Loc: ZZCWM/NO/LCS ADMIN (Req'g Loc) Img Loc: NHM/CT Service: Unknown [facility] , (Case 17 COMPLETE) LDCT LUNG CANCER SCREENING (CT Detailed) CPT:70220 Reason for Study: LUNG CANCER SCREENING Clinical History: 100TPY QUIT SMOKING 2015 BASELINE LCS LDCT ON 01/22/2023: LR 1(S): NO SUSPICIOUS PULMONARY NODULES Report Status: Verified Date Reported: JAN 24, 2024 Date Verified: JAN 24, 2024 Overnight Caregiver E-Sig:/ES/BRUCE CABRAL JR Report: Study: Lung cancer [...] reviewed. Secondary computer-aided detection with post-processing from Lorena Gaxiola is used. The lack of intravenous contrast [...] Primary Interpreting Staff: BRUCE CABRAL JR, Radiologist (Overnight Caregiver) /BRUCE SCHERER JR [facility] Encounter Notes: All associated encounter [...] care provider know. You can also call [phone] ( ) or visit [email or web address]. Please contact us with questions or concerns about lung cancer screening. Sincerely, Mirela MOTA, RN, OCN Lung Cancer Screening Nurse Enclosures: brochure entitled, My Lung Cancer Screening Did Not Show Lung Cancer /es/ MIRELA MOTA,RN,OCN LUNG CANCER SCREENING NURSE NAVIGATOR Signed: 01/24/2024 14:09 MIRELA TEJEDA [place] [facility] Jan 24, 2024 01:55 PM [...] by telephone. Comment: Call placed to the . Mendez with 's Jude, Communication authorization verified and on file. Results of LC SLDCT reviewed, specifically that no pulmonary nodules or masses were seen per radiology report. Education provided. Importance of and rationale for continued surveillance with LDCT at an annual interval discussed. 's verbalized good understanding and agreement with this plan. [place]'s expressed appreciation for the time spent and education provided. /flor/ MIRELA MOTA,RN,OCN LUNG CANCER SCREENING NURSE NAVIGATOR Signed: 01/24/2024 14:08 Receipt Acknowledged By: 01/24/2024 14:44 /es/ JOSHUA YANEZ, RN REGISTERED NURSE 01/25/2024 09:37 /es/ HARPAL VILLALBA LPN 01/25/2024 07:30 /es/ Valentín Amador PA-C STAFF PHYSICIAN HANDLE ASSEMBLER MIRELA TEJEDA [facility]
--- OUTSIDE RECORDS SUMMARY | 2024-09-25 12:19 | XMS_ITS ---
Author Name [facility] [place] Organization [place] Address [address] [place] [address] Care Team Providers Care Hr Assistant Name Role Phone LYDIA MG Primary Care Provider SARATH Borjas Primary Care Provider Unavail able Insurance [...] Name Patient's Relationship to Policy [place] [facility] ADVANTAGE [facility] ([facility]) Jul 12, 2023 [id number] [phone] [place] PATIENT AETNA [facility] (WNR) MEDICARE ADVANTAGE [facility] ([facility]) Jul 12, 2023 [id number] [phone] [place] PATIENT AETNA [facility] (WNR) MEDICARE [facility] ([facility]) Jul 12, 2019 [id number] [phone] [place] [facility]ICARE ADVANTAGE [facility] (WNR) Jul 12, 2018 [id number] [phone] [place] SIM[place]NIA PATIENT EMPIRE BCBS MCR (WNR) MEDICARE ADVANTAGE MCR (WNR) Sep 09, 2017 [id number] [phone] [facility] (WNR) MEDICARE ADVANTAGE MCR (WNR) Jul 12, 2017 [id number] [facility] PATIENT Selected Encounter This section includes the information on record at [place] for the Encounter. Date/Time Encounter Type Encounter Description Reason Provider Source Oct 25, 2023 02:30 PM OFF/OP EST NOVEMBER X REQ PHY/QHP PRIMARY CARE/MEDICINE ICD-10-CM I10 Essential (primary) hypertension DIPAK YANEZ IHE Encounter Template Text not used by [place] Assessments - Encounter Diagnoses This section includes the primary and secondary diagnoses documented for the Encounter. Date/Time Primary/Secondary Diagnosis Diagnosis Name Provider Source Oct 25, 2023 02:41 PM PRIMARY Essential (primary) hypertension DIPAK YANEZ [facility] [place] [facility] Plan of Treatment: Future Appointments (+ 6 months) and Future Tests (+/- 45 days) The Plan of Treatment section includes future care activities for the patient from all [place] treatmentfacilities. This section includes future appointments and future orders which are active, pending or scheduled. Future Appointments This section includes appointments that were scheduled to occur 6 months from the date of the Encounter, up to a maximum of 20 appointments. The data comes from all [place] treatment facilities. Appointment Date/Time Appointment Type Appointme nt Facility Name November 10, 2023 08:00 AM AMBULATORY - MEDICINE [facility] [place] [facility] Jan 24, 2024 11:00 AM AMBULATORY - NONE [facility] [place] [facility] Lab Results: +/- 30 days of the encounter This section includes the Chemistry and Hematology Lab Results on record with [place] for the patient. Radiology Reports and Pathology Reports are provided separately, in subsequent sections. Lab Results This section contains the Chemistry/Hematology Results that were resulted 30 days before or 30 daysafter the date of the Encounter. Date/Time Source Result Type Result - Unit Interpretation Reference Range Comment Oct 15, 2023 11:06 AM [facility] BASIC METABOLIC PANEL (fasting) Specimen Type: SERUM No comment entered. Ordering Provider: PO AMADOR Report Released Date/Time: Oct 15, 2023 11:05 AM Reporting Lab: [facility] [address] [phone] Performing Lab: [facility] [address] [address] UREA NITROGEN 18 mg/dL 7-25 GLUCOSE 95 mg/dL 65-100 SODIUM 141 mmol/L 135-145 POTASSIUM 4.2 mmol/L 3.5-5.0 CHLORIDE 106 mmol/L 100-110 CO2 25 meq/L 20-30 CREATININE, Serum 1.37 mg/dL 0.50-1.40 eGFR(CKD-EPI 2020) 53 mL/min L >60 Oct 15, 2023 11:06 AM [facility] LIVER FUNCTION Specimen Type: SERUM No comment entered. Ordering Provider: PO AMADOR Report Released Date/Time: Oct 15, 2023 11:05 AM Reporting Lab: [facility] [address] [address] Performing Lab: [address] [address] PROTEIN,TOTAL 7.1 g/dL 6.0-8.3 ALBUMIN 3.8 g/dL 3.5-5.0 ALKALINE PHOSPHATASE 50 U/L 40-150 AST 15 U/L 5-34 ALT 26 U/L BILIRUBIN, TOTAL 0.5 mg/dL 0.2-1.2 Oct 15, 2023 11:06 AM [facility] LIPID PANEL FASTING Specimen Type: SERUM No comment entered. Ordering Provider: PO AMADOR Report Released Date/Time: Oct 15, 2023 11:05 AM Reporting Lab: [facility] [address] [address] Performing Lab: [address] [address] CHOLESTEROL 179 mg/dL TRIGLYCERIDE 123 mg/dL 0-150 LDL calculated 111 mg/dL 0-129 CHOL/HDL 4.2 HDL CHOLESTEROL 43 mg/dL 40-60 Oct 15, 2023 11:06 AM [facility] IRON & TIBC PANEL Specimen Type: SERUM No comment entered. Ordering Provider: PO AMADOR Report Released Date/Time: Oct 15, 2023 11:05 AM Reporting Lab: [facility] [address] [address] Performing Lab: [facility] [address] [address] TIBC 338 ug/dL 204-475 IRON 51 ug/dL 40-160 Transferrin Saturation 15.1 L 20.0-50.0 Oct 15, 2023 11:06 AM [facility] CBC AND DIFF (AUTO) Specimen Type: BLOOD No comment entered. Ordering Provider: PO AMADOR Report Released Date/Time: Oct 15, 2023 11:05 AM Reporting Lab: [facility] [address] [address] Performing Lab: [facility] [address] [address] WBC 6.76 10*3/uL 4.50-11.00 RBC 5.57 10*6/uL 4.23-5.66 HGB 14.9 g/dL 12.8-17 HCT 47.5 39.2-50.4 MCV 85.3 fL 82-99 MCHC 31.4 g/dL 30.8-35.1 PLT 243 10*3/uL 140-360 RDW-CV 15.0 12.0-16.0 [place], Abs 0.49 10*3/uL 0.30-1.10 MCH 26.8 pg 26.2-32.6 Neut % 67.8 43.7-75.8 Lymph % 21.9 14.0-42.3 [place] % 7.2 5.1-13.7 Eos % 2.1 0.4-6.8 [...] Source Oct 25, 2023 02:37 PM 120/80 [place] [facility] [place] [facility] [facility] Oct 25, 2023 02:37 PM 122/90 [place] [facility] [place] [facility] Oct 25, 2023 02:37 PM 70 144/80 [place] [facility] [place] [facility] Social History: Smoking Status (Most current) and Tobacco Use (All prior to encounter date) This section includes the most current, and the historical, smoking and tobacco- related health factors from the [place] facility where the Encounter took place. Current Smoking Status This section includes the most current smoking, or tobacco-related health factor, from the [place] facility where the Encounter took place. Date/Time Current Smoking Status Comment Facil ity Jan 22, 2023 01:30 PM [facility] Tobacco Use History This section includes a history of the smoking, or tobacco-related health factors, that were collected on or before the date of the Encounter. The data comes from the [place] facility where the Encounter took place. Date/Time Smoking Status/Tobacco Use Comment F acility Jan 22, 2023 01:30 PM VA-TOBACCO QUIT 5 TO < 15 YRS [place] [facility] [place] [facility] Feb 17, 2022 04:37 PM VA-TOBACCO FORMER USER [place] [facility] [place] [facility] Feb 17, 2022 04:37 PM VA-TOBACCO QUIT 1 TO < 5 YRS [facility] Advance Directives: All historical and current Section Date Range: From patient's date of to the date document was created. This section includes ALL of a patient's completed or amended [place] Advance and Rescinded Directives. The entries below indicate that a directive exists for the patient, but an actual copy is not included with this document. The data comes from all [place] facilities. Date Advance Directives Provider Source Oct 26, 2023 ADVANCE DIRECTIVE MARGARITA KRAFT [place] [facility] Encounter Notes: All associated encounter notes [...] Blood pressure check: F: Nursing Clinic D: here for blood pressure check per PCP Sarath Amador. Vet has history of hypertension. Presently he is taking this medication for elevated B/P: Non-VA METOPROLOL TARTRATE TAB 25MG TAKE ONE TABLET BY MOUTH TWICE DAILY. A: B/P today is 144/80 in his left arm (automatic), 120/80 left arm (MANUAL) and 122/90 in his right arm (manual cuff used with arm elevated at heart level) Pulse is 70. Will review results with pcp, to discuss with his outside prescriber. R: tolerated well and left area ab estuardo. /flor/ JOSHUA YANEZ RN REGISTERED NURSE Signed: 10/25/2023 14:41 Receipt Acknowledged By: 10/26/2023 17:15 /flor/ Sarath Amador PA-C STAFF PHYSICIAN FEED MILL MANAGER JOSHUA YANEZ [place] [facility]
--- OUTSIDE RECORDS SUMMARY | 2024-09-25 12:19 | XMS_ITS | Encounter Summary ---
Author Name [facility] [place] [place] Organization [facility] [place] [facility] [place] Address [address] [place] [address] Care Team Providers Care Devops Solutions Architect Name Role Phone LYDIA MG Primary Care [...] Holland's Name Patient's Relationship to Policy [facility] ([facility]) Jul 12, 2023 [id number] [phone] [place] [facility] MEDICARE ADVANTAGE MCR ([facility]) Jul 12, 2023 [id number] [phone] [place] [facility]IC[facility] ADVANTAGE MCR ([facility]) Jul 12, 2019 [id number] [place] [facility]IENT [facility]) MEDICARE ADVANTAGE MCR (WNR) Jul 12, 2018 [id number] [phone] QUEENIEAZ SIMÓNIAAleksandr PATIENT EMPIRE [employer] MCR (WNR) MEDICARE ADVANTAGE [facility] (WNR) Sep 09, 2017 [id number] [facility] PATIENT E[employer]IRE [employer] [facility] (WNR) MEDICARE ADVANTAGE [facility] (WNR) Jul 12, 2017 [id number] QUEENIEAZ HÉCTOR PATIENT Selected Encounter This section includes the information on record at NE for the Encounter. Date/Time Encounter Type Encounter Description Reason Provider Source Oct 22, 2023 01:00 PM OFFICE O/P EST LOW 20 MIN PRIMARY CARE/MEDICINE ICD-10-CM J44.9 Chronic obstructive pulmonary disease, unspecified ALONDRAGNBEBE,WILL LAURA F IHE Encounter Template Text not used by NE Assessments - Encounter Diagnoses This section includes the primary and secondary diagnoses documented for the Encounter. Date/Time Primary/Secondary Diagnosis Diagnosis Name Provider Source Oct 22, 2023 01:37 PM PRIMARY Chronic obstructive pulmonary disease, unspecified ALONDRAPO HARDY [place] [facility] [place] [facility] Oct 22, 2023 01:37 PM SECONDARY Acute embolism and thrombosis of deep vn unsp up extrem CARSONDEBRAPO HARDY [facility] [place] [facility] Oct 22, 2023 01:37 PM SECONDARY Encounter for immunization MARIA APO Berry [facility] [place] [facility] Oct 22, 2023 01:37 PM SECONDARY Other pulmonary embolism without acute cor pulmonale MARIA APO Berry [facility] [place] [facility] Oct 22, 2023 01:37 PM SECONDARY Sjogren syndrome, unspecified CARSONPO BOLIVAR [facility] [place] [facility] Plan of Treatment: Future Appointments (+ 6 months) and Future Tests (+/- 45 days) The Plan of Treatment section includes future care activities for the patient from all [place] treatmentfacilities. This section includes future appointments and future orders which are active, pending or scheduled. Future Appointments This section includes appointments that were scheduled to occur 6 months from the date of the Encounter, up to a maximum of 20 appointments. The data comes from all [place] treatment facilities. Appointment Date/Time Appointment Type Appointme nt Facility Name Oct 25, 2023 02:30 PM [facility] Oct 25, 2023 03:00 PM AMBULATORY - MEDICINE [place] [facility] [place] [facility] Oct 25, 2023 04:15 PM [facility] November 10, 2023 08:00 AM [facility] Jan 24, 2024 11:00 AM [facility] Lab Results: +/- 30 days of the encounter This section includes the Chemistry and Hematology Lab Results on record with NE for the patient. Radiology Reports and Pathology Reports are provided separately, in subsequent sections. Lab Results This section contains the Chemistry/Hematology Results that were resulted 30 days before or 30 daysafter the date of the Encounter. Date/Time Source Result Type Result - Unit Interpretation Reference Range Comment Oct 15, 2023 11:06 AM [facility] BASIC METABOLIC PANEL (fasting) Specimen Type: SERUM No comment entered. Ordering Provider: PO AMADOR Report Released Date/Time: Oct 15, 2023 11:05 AM Reporting Lab: [address] [address] Performing Lab: [address] [address] UREA NITROGEN 18 mg/dL 7-25 GLUCOSE 95 mg/dL 65-100 SODIUM 141 mmol/L 135-145 POTASSIUM 4.2 mmol/L 3.5-5.0 CHLORIDE 106 mmol/L 100-110 CO2 25 meq/L 20-30 CREATININE, Serum 1.37 mg/dL 0.50-1.40 eGFR(CKD-EPI 2020) 53 mL/min L >60 Oct 15, 2023 11:06 AM [facility] LIVER FUNCTION Specimen Type: SERUM No comment entered. Ordering Provider: PO AMADOR Report Released Date/Time: Oct 15, 2023 11:05 AM Reporting Lab: [address] [place] [address] Performing Lab: [facility] [address] [address] PROTEIN,TOTAL 7.1 g/dL 6.0-8.3 ALBUMIN 3.8 g/dL 3.5-5.0 ALKALINE PHOSPHATASE 50 U/L 40-150 AST 15 U/L 5-34 ALT 26 U/L BILIRUBIN, TOTAL 0.5 mg/dL 0.2-1.2 Oct 15, 2023 11:06 AM [facility] LIPID PANEL FASTING Specimen Type: SERUM No comment entered. Ordering Provider: PO AMADOR Report Released Date/Time: Oct 15, 2023 11:05 AM Reporting Lab: [address] [address] Performing Lab: [address] [address] CHOLESTEROL 179 mg/dL TRIGLYCERIDE 123 mg/dL 0-150 LDL calculated 111 mg/dL 0-129 CHOL/HDL 4.2 HDL CHOLESTEROL 43 mg/dL 40-60 Oct 15, 2023 11:06 AM [facility] IRON & TIBC PANEL Specimen Type: SERUM No comment entered. Ordering Provider: PO AMADOR Report Released Date/Time: Oct 15, 2023 11:05 AM Reporting Lab: [address] [address] Performing Lab: [address] [address] TIBC 338 ug/dL 204-475 IRON 51 ug/dL 40-160 Transferrin Saturation 15.1 L 20.0-50.0 Oct 15, 2023 11:06 AM [facility] CBC AND DIFF (AUTO) Specimen Type: BLOOD No comment entered. Ordering Provider: PO AMADOR Report Released Date/Time: Oct 15, 2023 11:05 AM Reporting Lab: [address] [address] Performing Lab: [facility] [address] [address] WBC 6.76 10*3/uL 4.50-11.00 RBC 5.57 10*6/uL 4.23-5.66 HGB 14.9 g/dL 12.8-17 HCT 47.5 39.2-50.4 MCV 85.3 fL 82-99 MCHC 31.4 g/dL 30.8-35.1 PLT 243 10*3/uL 140-360 RDW-CV 15.0 12.0-16.0 Kane, Abs 0.49 10*3/uL 0.30-1.10 MCH 26.8 pg 26.2-32.6 Neut % 67.8 43.7-75.8 Lymph % 21.9 14.0-42.3 Kane % 7.2 5.1-13.7 Eos % 2.1 0.4-6.8 [...] 88 144/94 16 90 0 196 32 [facility] Immunizations: All administered on the encounter date This section contains immunizations associated to the Encounter. Immunization Series Date Issued Reaction Comments PNEUMOCOCCAL CONJUGATE PCV20 , POLYSACCHARIDE [id number] CONJUGATE, ADJUVANT, PF Oct 22, 2023 TDAP Oct 22, 2023 Social History: Smoking Status (Most current) and Tobacco Use (All prior to encounter date) This section includes the most current, and the historical, smoking and tobacco- related health factors from the NE facility where the Encounter took place. Current Smoking Status This section includes the most current smoking, or tobacco-related health factor, from the NE facility where the Encounter took place. Date/Time Current Smoking Status Comment Valeria ity Jan 22, 2023 01:30 PM VA-TOBACCO FORMER USER [facility] Tobacco Use History This section includes a history of the smoking, or tobacco-related health factors, that were collected on or before the date of the Encounter. The data comes from the NE facility where the Encounter took place. Date/Time Smoking Status/Tobacco Use Comment F acility Jan 22, 2023 01:30 PM VA-TOBACCO QUIT 5 TO < 15 YRS [facility] Feb 17, 2022 04:37 PM VA-TOBACCO FORMER USER NE [facility] Feb 17, 2022 04:37 PM NE-TOBACCO QUIT 1 TO < 5 YRS [facility] Advance Directives: All historical and current Section Date Range: From patient's date of to the date document was created. This section includes ALL of a patient's completed or amended [place] Advance and Rescinded Directives. The entries below indicate that a directive exists for the patient, but an actual copy is not included with this document. The data comes from all [place] facilities. Date Advance Directives Provider Source Oct 26, 2023 ADVANCE DIRECTIVE [facility]ARGARITA KRAFT [facility] Encounter Notes: All associated [...] Administered: Oct 22, 2023 13:00 Series: Booster Copy Clerk: [employer] Lot: [id number] Exp Date: Nov 04, 2025 NDC: [id number] Admin Route/Site: INTRAMUSCULAR/LEFT DELTOID Dosage: 0.5mL Vaccine Information Statement(s): TDAP (TETANUS, DIPHTHERIA, PERTUSSIS) VACCINE VIS Feb 14, 2021 ([place]) Order By: Policy Administered By: Harpal Villalba Vaccine Information Sheet (VIS) was given to the patient/caregiver, education regarding adverse reactions was discussed, as well as barriers to learning, if any, were acknowledged. Pneumococcal Conjugate Vaccine (PCV15/PCV20): PCV20 (Prevnar 20) Administered: PNEUMOCOCCAL CONJUGATE PCV20, POLYSACCHARIDE [id number] CONJUGATE, ADJUVANT, PF Date Administered: Oct 22, 2023 13:00 Series: Booster Copy Clerk: [employer] Lot: [id number] Exp Date: May 11, 2024 [facility]: [phone] Admin Route/Site: INTRAMUSCULAR/LEFT DELTOID Dosage: 0.5mL Vaccine Information Statement(s): PNEUMOCOCCAL CONJUGATE ([id number]) VIS November 20, 2022 ([place]) Order By: Policy Administered By: Harpal Villalba Vaccine Information Sheet (VIS) was given to the patient/caregiver, education regarding adverse reactions was discussed, as well as barriers to learning, if any, were acknowledged. /es/ HARPAL VILLALBA LPN HARPAL VILLALBA SPEECH LANGUAGE THERAPIST Signed: 10/22/2023 13:37 HARPAL VILLALBA [facility] [place] [facility] Oct 22, 2023 01:31 PM PHYSICIAN RESEARCH AGRICULTURAL ENGINEER NOTE: LOCAL TITLE: PA NOTE STANDARD TITLE: PHYSICIAN RESEARCH AGRICULTURAL ENGINEER NOTE DATE OF NOTE: OCT 22, 2023@13:31 [...] 5. COPD - Chronic Obstructive Pulmonary Disease ([facility] [id number]) 6. Depression ([facility] [id number]) 7. Deep venous thrombosis of upper extremity Left 8. H/O: rheumatoid arthritis 9. Sjogren syndrome 10. PE - Pulmonary Embolism (SCT [id number]) SERVICE CONNECTED % - NONE [facility]OUND [facility] [...] BY MOUTH ONCE DAILY ACTIVE 10) Non-VA TFTCOELWDJYU56.5/VILANTERO L25MCG 30D INH 1 ACTIVE INHALATION BY [...] today:yes /es/ Valentín Amador PA-C STAFF PHYSICIAN RESEARCH AGRICULTURAL ENGINEER Signed: 10/22/2023 13:37 VALENTÍN AMADOR [facility] [place] [facility] Oct 22, 2023 12:59 PM ACCOUNTING OF [...] standard clinical care, and in accordance with [facility] policy. Patient information was shared with the PDMP [place]. Prescription(s) filled outside the [facility] in the last 90 days are noted. However, they do not raise significant safety concerns and do not influence the treatment plan at this time. nivia Prescriptions: 49 Total Private Pay: 2 Fill Date ID Written Drug Qty Days Prescriber Rx # Pharmacy Refill Daily Dose * Pymt Type METAL FABRICATOR 10/10/2023 4 08/16/2023 Gabapentin 800 Mg Tablet 90.00 30 Ol [facility] [id number] [facility] 07/12 [place] 09/27/2023 4 09/27/2023 Hydromorphone 4 Mg Tablet 30.00 20 Ol [facility] [id number] [facility] ([facility] 0/0 30.00 [place] 09/14/2023 4 08/16/2023 Gabapentin 800 Mg Tablet 90.00 30 Ol [facility] [id number] [facility] 0/ [place] 08/16/2023 4 07/15/2023 Gabapentin 800 Mg Tablet 90.00 30 Ol [facility] [id number] [facility] ([facility]) 1 [place] 08/13/2023 4 08/13/2023 Hydromorphone 4 Mg Tablet 30.00 10 Ol [facility] [id number] [facility] ([facility] 0/0 60.00 [place] 07/15/2023 4 07/15/2023 Gabapentin 800 Mg Tablet 90.00 30 Ol [facility] [id number] [facility] ([facility] 0/ [place] 06/26/2023 4 06/17/2023 Fentanyl 12 Mcg/hr Patch 5.00 15 Ol [facility] [id number] [facility] ([facility] 0/0 28.80 [place] 06/17/2023 4 06/17/2023 Hydromorphone 2 Mg Tablet 60.00 30 Ol [facility] [id number] [facility] ([facility] 0/0 20.00 [place] 06/16/2023 4 05/18/2023 Gabapentin 800 Mg Tablet 90.00 30 Ol [facility] [id number] [facility] ([facility] 07/12 [place] 06/11/2023 4 06/07/2023 Fentanyl 12 Mcg/hr Patch 5.00 15 Ol [facility] [id number] [facility] ([facility]) 0/0 28.80 MME Medicare Aleksandr /flor/ Valentín Amador PA-C STAFF PHYSICIAN RESEARCH AGRICULTURAL ENGINEER Signed: 10/22/2023 13:00 VALENTÍN AMADOR [facility] [place] [facility] Oct 22, 2023 12:58 PM PREVENTIVE MEDICINE NURSING NOTE: LOCAL TITLE: CLINICAL REMINDERS/NURSING STANDARD TITLE: PREVENTIVE MEDICINE NURSING NOTE DATE OF NOTE: OCT 22, 2023@12:58 ENTRY DATE: OCT 22, 2023@12:59:06 AUTHOR: HARPAL VILLALBA EXP COSIGNER: URGENCY: STATUS: COMPLETED PAVE Foot Check: Patient declined limb care exam. Comment: feet are banmdaged s/p surgical debridment The patient was advised the [place] mandates all patients with diabetes mellitus, end stage renal disease, peripheral vascular disease, or sensory neuropathy should have a complete foot check completed annually. This includes a visual exam of the skin, pedal pulses and a sensory exam. Patients with any abnormality noted during the foot check should be referred to a specialist. /flor/ HARPAL VILLALBA LPN Signed: 10/22/2023 13:00 HARPAL VILLALBA [facility]
--- OUTSIDE RECORDS SUMMARY | 2024-09-25 12:19 | XMS_ITS | Continuity of Care Document ---
Author Name [facility] Organization [facility] Care Team Providers Care Process Lead Name Role Phone [facility] Unavailable Unavailable Problems Combined list of problems [...] COPD - Chronic Obstructive Pulmonary Disease (SCT [id number]) Active Condition [facility] Deep venous thrombosis of upper extremity Active Condition Feb 18, 2022 Entered By: MESFIN SAHA Comment: Left [facility] Depression (SCT [id number]) Active Condition [facility] Exposure to potentially hazardous substance Active Condition Oct 07, 2023 Entered By: COL BHARATHI ADAME Comment: ILIANA Screening Snomed Code connected 01/22/23 [facility] H/O: rheumatoid arthritis Active Condition [facility] Hypertension [facility] Moderate protein-calorie malnutrition (weight for age 60-74 percent of standard) Active Condition [facility] PE - Pulmonary Embolism (SCT [id number]) Active Condition [facility] Pyoderma gangrenosum Active Condition [facility] Rheumatoid arthritis Active Condition [facility] Sjogren syndrome Active Condition [facility] Venous ulcer Active Condition [facility] Diagnosis: ICD-10-CM H40.013 Open angle with borderline findings, low risk, bilateral Active Diagnosis [facility] Diagnosis: ICD-10-CM R52 Pain, unspecified Active Diagnosis [facility] [place] [facility] Diagnosis: ICD-10-CM Z12.2 Encntr screen for malignant neoplasm of respiratory organs Active Diagnosis [facility] [place] [facility] Diagnosis: ICD-10-CM Z46.0 Encounter for fit/adjst of spectacles and contact lenses Active Diagnosis [facility] [place] [facility] Diagnosis: ICD-10-CM I10 Essential (primary) hypertension Active [facility] [place] [facility] Diagnosis: ICD-10-CM J44.9 Chronic obstructive pulmonary disease, unspecified Active Diagnosis [facility] [place] [facility] Diagnosis: ICD-10-CM F43.10 Post-traumatic stress disorder, unspecified Active Diagnosis [facility] [place] [facility] Diagnosis: ICD-10-CM S91.009A Unspecified open wound, unspecified ankle, initial encounter Active Diagnosis [facility] Diagnosis: ICD-10-CM Z13.9 Encounter for screening, unspecified Active Diagnosis [facility] Diagnosis: ICD-10-CM I25.10 Athscl heart disease of [place] coronary artery w/o ang pctrs Active Diagnosis [facility] [place] [facility] Diagnosis: ICD-10-CM Z04.89 Encounter for examination and observation for oth reasons Active Diagnosis [facility] Diagnosis: ICD-10-CM M35.00 Sjogren syndrome, unspecified Active Diagnosis [facility] [place] [facility] Diagnosis: ICD-10-CM R26.89 Other abnormalities of gait and mobility Active Diagnosis [facility] Medications Combined list of outpatient medications [...] MOUTH PRN ORAL ACTIVE VALENTÍN SAHA 2022 [facility] [place] [facility] ALBUTEROL 90MCG/ACTUA T (CFC-F) INHL,ORAL,8 .5GM DOSE COUNTER INHALE 2 PUFFS BY MOUTH EVERY 6 HOURS NEEDED RESPIR ATORY (INHAL ATION) ACTIVE VALENTÍN SAHA 2022 [facility] [place] [facility] CALCIUM CARBONATE TAB [facility]KE [facility] [address] [place] CHOLECALCIF MELISSA (VIT D3) TAB TAKE EVERY DAY [facility] [address] [place] DULOXETINE HCL 20MG CAP,EC TAKE 1 CAPSULE BY MOUTH AT BEDTIME ORAL ACTIVE VALENTÍN SAHA [facility] ETANERCEPT 50MG INJ,SOLN INJECT UNDER THE SKIN SUBCUT ANEOUS [facility] [address] [place] FAMOTIDINE TAB TAKE [facility] [address] [place] FLUTICASONE PROPIONATE 50MCG/SPRAY SOLN,NASAL, 16GM INSTILL 2 SPRAYS INTO EACH NOSTRIL ONCE DAILY NASAL ACTIVE VALENTÍN SAHA 2022 [facility] [place] [facility] GABAPENTIN 300MG CAP TAKE 2 CAPSULES BY MOUTH EVERY EVENING AND TAKE 4 CAPSULES BY MOUTH AT BEDTIME ORAL ACTIVE VALENTÍN SAHA 2022 [facility] HYDROCHLORO THIAZIDE TAB TAKE EVERY DAY [facility] [address] [place] HYDROMORPHO NE HCL 2MG TAB TAKE ONE TABLET BY MOUTH THREE TIMES DAILY NEEDED ORAL ACTIVE VALENTÍN SAHA 2022 [facility] IBUPROFEN TAB TAKE PRN ACTIVE [facility] [place] METOPROLOL TARTRATE 25MG TAB TAKE ONE TABLET BY MOUTH TWICE DAILY ORAL ACTIVE VALENTÍN SAHA 2022 [facility] MULTIVITAMI N & MINERALS TAB TAKE EVERY DAY ACTIVE SERGE[facility] [place] NALOXONE HCL 4MG/SPRAY SOLN,SPRAY, NASAL INSTILL 1 SPRAY ONE NOSTRIL ONE TIME PRN NASAL ACTIVE VALENTÍN SAHA 2022 [facility] [place] [facility] PREDNISONE (LOOK ALIKE/SOUND ALIKE) TAB TAKE BY MOUTH ORAL [facility] [address] [place] RIVAROXABAN 10MG TAB TAKE ONE TABLET BY MOUTH ONCE DAILY ORAL ACTIVE VALENTÍN SAHA 2022 [facility] SODIUM CHLORIDE 0.9% (PF) INJ,SYRINGE ,10ML INJECT 1 SYRINGE IV PUSH ONCE DAILY INTRAV ENOUS DISCONT INUED (EDIT) 04/28/2024 [id number] DEON LINDQUISTITRI 2023 30 [facility] SODIUM CHLORIDE 0.9% (PF) INJ,SYRINGE ,10ML INJECT 1 SYRINGE IV PUSH DIRECTED BY PROVIDER INTRAV ENOUS DISCONT INUED (EDIT) 02/18/2024 [id number] 4 DEON LINDQUISTITRI 2023 30 [facility] SODIUM CHLORIDE 0.9% (PF) INJ,SYRINGE ,10ML INJECT 1 SYRINGE DIRECTED BY PROVIDER ONCE DAILY NOT APPLIC ABLE 04/30/2024 [id number] RAMBISSLIN OglesbyDAVID 2023 30 [facility] SODIUM CHLORIDE 0.9% (PF) INJ,SYRINGE ,10ML APPLY 1 SYRINGE TOPICALL Y DIRECTED BY PROVIDER TOPICA L 03/02/2024 [id number] CHANGSSLIN OglesbyDAVID 2023 30 [facility] SODIUM CHLORIDE 0.9% SOLN,IRRG IRRIGATE UDP TOPICALL Y ONCE DAILY TOPICA L DISCONT INUED (EDIT) 08/25/2024 [id number] RAMBISSOO MendelDAVID 2024 1000 [facility] SODIUM CHLORIDE 0.9% SOLN,IRRG IRRIGATE UDP TOPICALL Y EVERY OTHER DAY TOPICA L DISCONT INUED (EDIT) 10/01/2023 [id number] 4 BLANKABISSILN OglesbyDAVID 2023 1000 [facility] SODIUM CHLORIDE 0.9% SOLN,IRRG IRRIGATE DIRECTED TOPICALL Y ONCE DAILY TOPICA L 08/31/2024 [id number] RAMBISSOO N,DAVID 2024 1000 [facility] [place] [facility] SODIUM CHLORIDE 0.9% SOLN,IRRG IRRIGATE DIRECTED TOPICALL Y EVERY OTHER DAY TOPICA L 10/03/2023 [id number] 4 RAMBISSOO N,DAVID 2023 1000 [facility] [place] [facility] SODIUM CHLORIDE 0.9% SOLN,IRRG IRRIGATE DIRECTED TOPICALL Y EVERY OTHER DAY TOPICA L 08/20/2023 [id number] 4 RAMBISSOO N,DAVID 2023 1000 [facility] UMECLIDINIU M 62.5MCG/YARELY ANTEROL 25MCG/ACTUA T INH,ORAL,30 D INHALE 1 INHALATI ON BY MOUTH ONCE DAILY RESPIR ATORY (INHAL ATION) ACTIVE VALENTÍN SAHA 2022 [facility] UPADACITINI B 15MG 24HR TAB,SA TAKE ONE TABLET BY MOUTH ONCE DAILY ORAL ACTIVE VALENTÍN SAHA 2022 [facility] Allergies, Adverse Reactions, Alerts Combined list of allergies from Department of Defense and Veterans Affairs facilities. It does not include entries that were removed or entered in error. Substance Category Reaction Severity Reaction type Status Date Reported Comments Source HEPARIN Propensity to adverse reactions to drug (finding) Cardiac arrest SEVERE active 3 [facility] [place] [facility] Immunizations Combined list of available immunizations from the Department of Defense and Veterans Affairs facilities. Immunization Series Date Given Administered By Site Reaction Lot Number CVX Code Drug Dining Server Status Comments Source INFLUENZA, UNSPECIFIED FORMULATION 2023 88 complet ed [facility] PNEUMOCOCCAL CONJUGATE PCV20, POLYSACCHARID E [id number] CONJUGATE, ADJUVANT, PF 2023 ROXANNA VILLALBA E LEFT DELTO ID [id number] complet ed [facility] complet ed [facility] [place] [facility] INFLUENZA, TRIVALENT, ADJUVANTED 2018 NONE 168 complet ed [place] PNEUMOCOCCAL CONJUGATE PCV 13 2017 133 complet ed [facility] PNEUMOCOCCAL POLYSACCHARID E PPV23 2015 33 complet ed [facility] Results Combined list of recent chemistry, [...] AM Reporting Lab: [facility] [place] [facility] [address] [facility] [address] Performing Lab: [facility] [place] [facility] [address] [facility] [address] [facility] [place] [facility] BASIC METABOLI C PANEL (fasting ) GLUCOSE [MASS/VOLU ME] IN SERUM OR PLASMA 95 mg/dL 65 - 100 10/14 Specimen Type: SERUM No comment entered. Ordering Provider: Madelaine SAHA Report Released Date/Time: Oct 15, 2023 11:05 AM Reporting Lab: [facility] [place] [facility] [address] [facility] [address] Performing Lab: [facility] [place] [address] [address] [facility] [place] [facility] BASIC METABOLI C PANEL (fasting ) SODIUM [MOLES/VOL UME] IN SERUM OR PLASMA 141 mmol/L 135 - 145 10/14 Specimen Type: SERUM No comment entered. Ordering Provider: Madelaine SAHA Report Released Date/Time: Oct 15, 2023 11:05 AM Reporting Lab: [facility] [place] [address] [address] Performing Lab: [facility] [place] [address] [address] [facility] [place] [facility] BASIC METABOLI C PANEL (fasting ) POTASSIUM [MOLES/VOL UME] IN SERUM OR PLASMA 4.2 mmol/L 3.5 - 5.0 10/14 Specimen Type: SERUM No comment entered. Ordering Provider: Madelaine SAHA Report Released Date/Time: Oct 15, 2023 11:05 AM Reporting Lab: [facility] [place] [facility] [address] [facility] [address] Performing Lab: [facility] [place] [address] [address] [facility] [facility] BASIC METABOLI C PANEL (fasting ) CHLORIDE [MOLES/VOL UME] IN SERUM OR PLASMA 106 mmol/L 100 - 110 10/14 Specimen Type: SERUM No comment entered. Ordering Provider: Madelaine SAHA Report Released Date/Time: Oct 15, 2023 11:05 AM Reporting Lab: [facility] [address] [address] Performing Lab: [facility] [address] [facility] BASIC METABOLI C PANEL (fasting ) CARBON DIOXIDE, TOTAL [MOLES/VOL UME] IN SERUM OR PLASMA 25 meq/L 20 - 30 10/14 Specimen Type: SERUM No comment entered. Ordering Provider: Madelaine SAHA Report Released Date/Time: Oct 15, 2023 11:05 AM Reporting Lab: [facility] [address] [address] Performing Lab: [facility] [address] [address] [facility] BASIC METABOLI C PANEL (fasting ) CREATININE [MASS/VOLU ME] IN SERUM OR PLASMA 1.37 mg/dL 0.50 - 1.40 10/14 Specimen Type: SERUM No comment entered. Ordering Provider: Madelaine SAHA Report Released Date/Time: Oct 15, 2023 11:05 AM Reporting Lab: [facility] [address] [address] Performing Lab: [facility] [address] [facility] BASIC METABOLI C PANEL (fasting ) GLOMERULAR FILTRATION RATE/1.73 SQ M.PREDICTE D [VOLUME RATE/AREA] IN SERUM, PLASMA OR BLOOD BY CREATININE -BASED FORMULA (CKD-EPI 2020) 53 mL/min 60 10/14 L Specimen Type: SERUM No comment entered. Ordering Provider: Madelaine SAHA Report Released Date/Time: Oct 15, 2023 11:05 AM Reporting Lab: [facility] [place] [facility] [address] [facility] [address] Performing Lab: [facility] [place] [facility] [address] [facility] [address] [facility] [place] [facility] LIVER FUNCTION PROTEIN [MASS/VOLU ME] IN SERUM OR PLASMA 7.1 g/dL 6.0 - 8.3 10/14 Specimen Type: SERUM No comment entered. Ordering Provider: Madelaine SAHA Report Released Date/Time: Oct 15, 2023 11:05 AM Reporting Lab: [facility] [place] [facility] [address] [facility] [address] Performing Lab: [facility] [place] [facility] [address] [facility] [address] [facility] [place] [facility] LIVER FUNCTION ALBUMIN [MASS/VOLU ME] IN SERUM OR PLASMA 3.8 g/dL 3.5 - 5.0 10/14 Specimen Type: SERUM No comment entered. Ordering Provider: Madelaine SAHA Report Released Date/Time: Oct 15, 2023 11:05 AM Reporting Lab: [facility] [place] [facility] [address] [facility] [address] Performing Lab: [facility] [place] [facility] [address] [facility] [address] [facility] [place] [facility] LIVER FUNCTION ALKALINE PHOSPHATAS E [ENZYMATIC ACTIVITY/V OLUME] IN SERUM OR PLASMA 50 U/L 40 - 150 10/14 Specimen Type: SERUM No comment entered. Ordering Provider: Madelaine SAHA Report Released Date/Time: Oct 15, 2023 11:05 AM Reporting Lab: [facility] [place] [facility] [address] [facility] [address] Performing Lab: [facility] [place] [facility] [address] [facility] [address] [facility] [place] [facility] LIVER FUNCTION ASPARTATE AMINOTRANS FERASE [ENZYMATIC ACTIVITY/V OLUME] IN SERUM OR PLASMA 15 U/L 5 - 34 10/14 Specimen Type: SERUM No comment entered. Ordering Provider: Madelaine SAHA Report Released Date/Time: Oct 15, 2023 11:05 AM Reporting Lab: [facility] [place] [facility] [address] [facility] [address] Performing Lab: [facility] [place] [facility] [address] [facility] [address] [facility] [place] [facility] LIVER FUNCTION ALANINE AMINOTRANS FERASE [ENZYMATIC ACTIVITY/V OLUME] IN SERUM OR PLASMA 26 U/L 10/14 Specimen Type: SERUM No comment entered. Ordering Provider: Madelaine SAHA Report Released Date/Time: Oct 15, 2023 11:05 AM Reporting Lab: [facility] [place] [address] [address] Performing Lab: [facility] [place] [address] [address] [facility] LIVER FUNCTION BILIRUBIN. TOTAL [MASS/VOLU ME] IN SERUM OR PLASMA 0.5 mg/dL 0.2 - 1.2 10/14 Specimen Type: SERUM No comment entered. Ordering Provider: Madelaine SAHA Report Released Date/Time: Oct 15, 2023 11:05 AM Reporting Lab: [facility] [place] [address] [address] Performing Lab[facility] [place] [facility] [address] [facility] [address] [facility] [facility] LIPID PANEL FASTING CHOLESTERO L [MASS/VOLU ME] IN SERUM OR PLASMA 179 mg/dL 10/14 Specimen Type: SERUM No comment entered. Ordering Provider: Madelaine SAHA Report Released Date/Time: Oct 15, 2023 11:05 AM Reporting Lab: [facility] [place] [facility] [address] [facility] [address] Performing Lab: [facility] [address] [facility] [address] [facility] [place] [facility] LIPID PANEL FASTING TRIGLYCERI DE [MASS/VOLU ME] IN SERUM OR PLASMA 123 mg/dL 0 - 150 10/14 Specimen Type: SERUM No comment entered. Ordering Provider: Madelaine SAHA Report Released Date/Time: Oct 15, 2023 11:05 AM Reporting Lab: [facility] [place] [facility] [address] [facility] [address] Performing Lab: [facility] [place] [facility] [address] [facility] [address] [facility] [facility] LIPID PANEL FASTING CHOLESTERO L IN LDL [MASS/VOLU ME] IN SERUM OR PLASMA BY CALCULAGIOO N 111 mg/dL 0 - 129 10/14 Specimen Type: SERUM No comment entered. Ordering Provider: Madelaine SAHA Report Released Date/Time: Oct 15, 2023 11:05 AM Reporting Lab: [facility] [place] [facility] [address] [facility] [address] Performing Lab: [facility] [place] [facility] [address] [facility] [address] [facility] [place] [facility] LIPID PANEL FASTING CHOLESTERO L.TOTAL/CH OLESTEROL IN HDL [MASS RATIO] IN SERUM OR PLASMA 4.2 10/14 Specimen Type: SERUM No comment entered. Ordering Provider: Madelaine SAHA Report Released Date/Time: Oct 15, 2023 11:05 AM Reporting Lab: [facility] [place] [facility] [address] [facility] [address] Performing Lab: [facility] [place] [facility] [address] [facility] [address] [facility] [facility] LIPID PANEL FASTING CHOLESTERO L IN HDL [MASS/VOLU ME] IN SERUM OR PLASMA 43 mg/dL 40 - 60 10/14 Specimen Type: SERUM No comment entered. Ordering Provider: Madelaine SAHA Report Released Date/Time: Oct 15, 2023 11:05 AM Reporting Lab: [facility] [place] [facility] [address] [facility] [address] Performing Lab: [facility] [place] [facility] [address] [facility] [address] [facility] [facility] IRON & TIBC PANEL IRON BINDING CAPACITY [MASS/VOLU ME] IN SERUM OR PLASMA 338 ug/dL 204 - 475 10/14 Specimen Type: SERUM No comment entered. Ordering Provider: Madelaine SAHA Report Released Date/Time: Oct 15, 2023 11:05 AM Reporting Lab: [facility] [place] [facility] [address] [facility] [address] Performing Lab: [facility] [place] [facility] [address] [facility] [address] [facility] [facility] IRON & TIBC PANEL IRON [MASS/VOLU ME] IN SERUM OR PLASMA 51 ug/dL 40 - 160 10/14 Specimen Type: SERUM No comment entered. Ordering Provider: Madelaine SAHA Report Released Date/Time: Oct 15, 2023 11:05 AM Reporting Lab: [facility] [place] [facility] [address] [facility] [address] Performing Lab: [facility] [place] [facility] [address] [facility] [address] [facility] [facility] IRON & TIBC PANEL IRON/IRON BINDING CAPACITY.T OTAL [MASS RATIO] IN SERUM OR PLASMA 15.1 20.0 - 50.0 10/14 L Specimen Type: SERUM No comment entered. Ordering Provider: Madelaine SHAA Report Released Date/Time: Oct 15, 2023 11:05 AM Reporting Lab: [facility] [place] [facility] [address] [facility] [address] Performing Lab: [facility] [place] [facility] [address] [facility] [address] [facility] [facility] CBC AND DIFF (AUTO) LEUKOCYTES [#/VOLUME] IN BLOOD BY AUTOMATED COUNT 6.76 10*3/uL 4.50 - 11.00 10/14 Specimen Type: BLOOD No comment entered. Ordering Provider: Madelaine SAHA Report Released Date/Time: Oct 15, 2023 11:05 AM Reporting Lab: [facility] [place] [facility] [address] [facility] [address] Performing Lab: [facility] [place] [facility] [address] [facility] [address] [facility] [facility] CBC AND DIFF (AUTO) ERYTHROCYT ES [#/VOLUME] IN BLOOD BY AUTOMATED COUNT 5.57 10*6/uL 4.23 - 5.66 10/14 Specimen Type: BLOOD No comment entered. Ordering Provider: Madelaine SAHA Report Released Date/Time: Oct 15, 2023 11:05 AM Reporting Lab: [facility] [place] [facility] [address] [facility] [address] Performing Lab: [facility] [place] [facility] [address] [facility] [address] [facility] [facility] CBC AND DIFF (AUTO) HEMOGLOBIN [MASS/VOLU ME] IN BLOOD 14.9 g/dL 12.8 - 17 10/14 Specimen Type: BLOOD No comment entered. Ordering Provider: Madelaine SAHA Report Released Date/Time: Oct 15, 2023 11:05 AM Reporting Lab: [facility] [place] [facility] [address] [facility] [address] Performing Lab: [facility] [place] [facility] [address] [facility] [address] [facility] CBC AND DIFF (AUTO) HEMATOCRIT [VOLUME FRACTION] OF BLOOD BY AUTOMATED COUNT 47.5 39.2 - 50.4 10/14 Specimen Type: BLOOD No comment entered. Ordering Provider: Madelaine SAHA Report Released Date/Time: Oct 15, 2023 11:05 AM Reporting Lab: [facility] [place] [facility] [address] [facility] [address] Performing Lab: [facility] [place] [facility] [address] [facility] [address] [facility] CBC AND DIFF (AUTO) MCV [ENTITIC VOLUME] BY AUTOMATED COUNT 85.3 fL 82 - 99 10/14 Specimen Type: BLOOD No comment entered. Ordering Provider: Madelaine SAHA Report Released Date/Time: Oct 15, 2023 11:05 AM Reporting Lab: [facility] [place] [facility] [address] [facility] [address] Performing Lab: [facility] [place] [facility] [address] [facility] [address] [facility] CBC AND DIFF (AUTO) MCHC [MASS/VOLU ME] BY AUTOMATED COUNT 31.4 g/dL 30.8 - 35.1 10/14 Specimen Type: BLOOD No comment entered. Ordering Provider: Madelaine SAHA Report Released Date/Time: Oct 15, 2023 11:05 AM Reporting Lab: [facility] [place] [address] [address] Performing Lab: [facility] [place] [address] [address] [facility] CBC AND DIFF (AUTO) PLATELETS [#/VOLUME] IN BLOOD BY AUTOMATED COUNT 243 10*3/uL 140 - 360 10/14 Specimen Type: BLOOD No comment entered. Ordering Provider: Madelaine SAHA Report Released Date/Time: Oct 15, 2023 11:05 AM Reporting Lab: [facility] [place] [facility] [address] [facility] [address] Performing Lab: [facility] [place] [facility] [address] [facility] [address] [facility] CBC AND DIFF (AUTO) ERYTHROCYT E DISTRIBUTI ON WIDTH [RATIO] BY AUTOMATED COUNT 15.0 12.0 - 16.0 10/14 Specimen Type: BLOOD No comment entered. Ordering Provider: Madelaine SAHA Report Released Date/Time: Oct 15, 2023 11:05 AM Reporting Lab: [facility] [place] [facility] [address] [facility] [address] Performing Lab: [facility] [place] [facility] [address] [facility] [address] [facility] CBC AND DIFF (AUTO) MONOCYTES [#/VOLUME] IN BLOOD BY AUTOMATED COUNT 0.49 10*3/uL 0.30 - 1.10 10/14 Specimen Type: BLOOD No comment entered. Ordering Provider: Madelaine SAHA Report Released Date/Time: Oct 15, 2023 11:05 AM Reporting Lab: [facility] [place] [facility] [address] [facility] [address] Performing Lab: [facility] [address] [facility] [address] [facility] CBC AND DIFF (AUTO) MCH [ENTITIC MASS] BY AUTOMATED COUNT 26.8 pg 26.2 - 32.6 10/14 Specimen Type: BLOOD No comment entered. Ordering Provider: Madelaine SAHA Report Released Date/Time: Oct 15, 2023 11:05 AM Reporting Lab: [facility] [place] [address] [address] Performing Lab: [facility] [address] [facility] [address] [facility] CBC AND DIFF (AUTO) NEUTROPHIL S/100 LEUKOCYTES IN BLOOD BY AUTOMATED COUNT 67.8 43.7 - 75.8 10/14 Specimen Type: BLOOD No comment entered. Ordering Provider: Madelaine SAHA Report Released Date/Time: Oct 15, 2023 11:05 AM Reporting Lab: [facility] [address] [facility] [address] Performing Lab: [facility] [address] [place] [address] [facility] CBC AND DIFF (AUTO) LYMPHOCYTE S/100 LEUKOCYTES IN BLOOD BY AUTOMATED COUNT 21.9 14.0 - 42.3 10/14 Specimen Type: BLOOD No comment entered. Ordering Provider: Madelaine SAHA Report Released Date/Time: Oct 15, 2023 11:05 AM Reporting Lab: [facility] [address] [facility] [address] Performing Lab: [facility] [address] [facility] [address] [facility] CBC AND DIFF (AUTO) MONOCYTES/ 100 LEUKOCYTES IN BLOOD BY AUTOMATED COUNT 7.2 5.1 - 13.7 10/14 Specimen Type: BLOOD No comment entered. Ordering Provider: Madelaine SAHA Report Released Date/Time: Oct 15, 2023 11:05 AM Reporting Lab: [facility] [address] [facility] [address] Performing Lab: [facility] [place] [address] [facility] [address] [facility] CBC AND DIFF (AUTO) EOSINOPHIL S/100 LEUKOCYTES IN BLOOD BY AUTOMATED COUNT 2.1 0.4 - 6.8 10/14 Specimen Type: BLOOD No comment entered. Ordering Provider: Madelaine SAHA Report Released Date/Time: Oct 15, 2023 11:05 AM Reporting Lab: [facility] [address] [facility] [address] Performing Lab: [facility] [place] [address] [facility] [address] [facility] CBC AND DIFF (AUTO) BASOPHILS/ 100 LEUKOCYTES IN BLOOD BY AUTOMATED COUNT 0.6 0.1 - 2.0 10/14 Specimen Type: BLOOD No comment entered. Ordering Provider: Madelaine SAHA Report Released Date/Time: Oct 15, 2023 11:05 AM Reporting Lab: [facility] [address] [facility] [address] Performing Lab: [facility] [place] [facility] [address] [facility] [address] [facility] CBC AND DIFF (AUTO) NEUTROPHIL S [#/VOLUME] IN BLOOD BY AUTOMATED COUNT 4.58 10*3/uL 2.20 - 7.60 10/14 Specimen Type: BLOOD No comment entered. Ordering Provider: Madelaine SAHA Report Released Date/Time: Oct 15, 2023 11:05 AM Reporting Lab: [facility] [place] [address] [address] Performing Lab: [facility] [place] [address] [facility] [address] [facility] CBC AND DIFF (AUTO) LYMPHOCYTE S [#/VOLUME] IN BLOOD BY AUTOMATED COUNT 1.48 10*3/uL 1.00 - 3.20 10/14 Specimen Type: BLOOD No comment entered. Ordering Provider: Madelaine SAHA Report Released Date/Time: Oct 15, 2023 11:05 AM Reporting Lab: [facility] [place] [address] [address] Performing Lab[facility] [place] [address] [facility] [address] [facility] [place] CBC AND DIFF (AUTO) EOSINOPHIL S [#/VOLUME] IN BLOOD BY AUTOMATED COUNT 0.14 10*3/uL 0.03 - 0.44 10/14 Specimen Type: BLOOD No comment entered. Ordering Provider: Madelaine SAHA Report Released Date/Time: Oct 15, 2023 11:05 AM Reporting Lab: [facility] [place] [facility] [address] [facility] [address] Performing Lab: [facility] [place] [address] [address] [facility] CBC AND DIFF (AUTO) BASOPHILS [#/VOLUME] IN BLOOD BY AUTOMATED COUNT 0.04 10*3/uL 0.01 - 0.13 10/14 Specimen Type: BLOOD No comment entered. Ordering Provider: Madelaine SAHA Report Released Date/Time: Oct 15, 2023 11:05 AM Reporting Lab: [facility] [place] [facility] [address] [facility] [address] Performing Lab: [facility] [place] [address] [facility] [address] [facility] CBC AND DIFF (AUTO) IMMATURE GRANULOCYT ES/100 LEUKOCYTES IN BLOOD BY AUTOMATED COUNT 0.4 0.0 - 0.7 10/14 Specimen Type: BLOOD No comment entered. Ordering Provider: Madelaine SAHA Report Released Date/Time: Oct 15, 2023 11:05 AM Reporting Lab: [facility] [place] [facility] [address] [facility] [address] Performing Lab: [facility] [place] [address] [facility] [address] [facility] CBC AND DIFF (AUTO) IMMATURE GRANULOCYT ES [#/VOLUME] IN BLOOD 0.03 10*3/uL 0.00 - 0.06 10/14 Specimen Type: BLOOD No comment entered. Ordering Provider: Madelaine SAHA Report Released Date/Time: Oct 15, 2023 11:05 AM Reporting Lab: [facility] [place] [facility] [address] [facility] [address] Performing Lab: [facility] [place] [facility] [address] [facility] [address] [facility] CBC LEUKOCYTES [#/VOLUME] IN BLOOD BY AUTOMATED COUNT 6.94 10*3/uL 4.50 - 11.00 05/24 Specimen Type: BLOOD No comment entered. Ordering Provider: Madelaine SAHA Report Released Date/Time: Apr 14, 2023 08:29 AM Reporting Lab: [facility] [place] [facility] [address] [facility] [address] Performing Lab: [facility] [place] [facility] [address] [facility] [address] [facility] CBC ERYTHROCYT ES [#/VOLUME] IN BLOOD BY AUTOMATED COUNT 4.59 10*6/uL 4.23 - 5.66 05/24 Specimen Type: BLOOD No comment entered. Ordering Provider: Madelaine SAHA Report Released Date/Time: Apr 14, 2023 08:29 AM Reporting Lab: [facility] [address] [facility] [address] Performing Lab: [facility] [address] [facility] [address] [facility] CBC HEMOGLOBIN [MASS/VOLU ME] IN BLOOD 12.9 g/dL 12.8 - 17 05/24 Specimen Type: BLOOD No comment entered. Ordering Provider: Madelaine SAHA Report Released Date/Time: Apr 14, 2023 08:29 AM Reporting Lab: [facility] [place] [facility] [address] [facility] [address] Performing Lab: [facility] [place] [address] [address] [facility] CBC HEMATOCRIT [VOLUME FRACTION] OF BLOOD BY AUTOMATED COUNT 40.6 39.2 - 50.4 05/24 Specimen Type: BLOOD No comment entered. Ordering Provider: Madelaine SAHA Report Released Date/Time: Apr 14, 2023 08:29 AM Reporting Lab: [facility] [place] [facility] [address] [facility] [address] Performing Lab: [facility] [place] [facility] [address] [facility] [address] [facility] CBC MCV [ENTITIC VOLUME] BY AUTOMATED COUNT 88.5 fL 82 - 99 05/24 Specimen Type: BLOOD No comment entered. Ordering Provider: Madelaine SAHA Report Released Date/Time: Apr 14, 2023 08:29 AM Reporting Lab: [facility] [place] [facility] [address] [facility] [address] Performing Lab: [facility] [place] [facility] [address] [facility] [address] [facility] CBC MCHC [MASS/VOLU ME] BY AUTOMATED COUNT 31.8 g/dL 30.8 - 35.1 05/24 Specimen Type: BLOOD No comment entered. Ordering Provider: Madelaine SAHA Report Released Date/Time: Apr 14, 2023 08:29 AM Reporting Lab: [facility] [place] [facility] [address] [facility] [address] Performing Lab: [facility] [place] [facility] [address] [facility] [address] [facility] CBC PLATELETS [#/VOLUME] IN BLOOD BY AUTOMATED COUNT 309 10*3/uL 140 - 360 05/24 Specimen Type: BLOOD No comment entered. Ordering Provider: Madelaine SAHA Report Released Date/Time: Apr 14, 2023 08:29 AM Reporting Lab: [facility] [place] [address] [address] Performing Lab: [facility] [place] [facility] [address] [facility] [address] [facility] [place] CBC ERYTHROCYT E DISTRIBUTI ON WIDTH [RATIO] BY AUTOMATED COUNT 14.0 12.0 - 16.0 05/24 Specimen Type: BLOOD No comment entered. Ordering Provider: Madelaine SAHA Report Released Date/Time: Apr 14, 2023 08:29 AM Reporting Lab: [facility] [place] [address] [address] Performing Lab: [facility] [place] [facility] [address] [facility] [address] [facility] [place] CBC MCH [ENTITIC MASS] BY AUTOMATED COUNT 28.1 pg 26.2 - 32.6 05/24 Specimen Type: BLOOD No comment entered. Ordering Provider: Madelaine SAHA Report Released Date/Time: Apr 14, 2023 08:29 AM Reporting Lab: [facility] [place] [facility] [address] [facility] [address] Performing Lab: [facility] [place] [address] [address] [facility] URINALYS IS COLOR OF URINE Light-Ye llow 05/24 Specimen Type: URINE Comment: If Glucose = >500 and Ketones are positive, please alert the Physician. Ordering Provider: Madelaine SAHA Report Released Date/Time: Apr 26, 2023 04:38 PM Reporting Lab: [facility] [place] [facility] [address] [facility] [address] Performing Lab: [facility] [place] [facility] [address] [facility] [address] [facility] URINALYS IS APPEARANCE OF URINE Clear 05/24 Specimen Type: URINE Comment: If Glucose = >500 and Ketones are positive, please alert the Physician. Ordering Provider: Madelaine SAHA Report Released Date/Time: Apr 26, 2023 04:38 PM Reporting Lab: [facility] [place] [address] [address] Performing Lab: [facility] [place] [facility] [address] [facility] [address] [facility] URINALYS IS GLUCOSE [MASS/VOLU ME] IN URINE NEGATIVE mg/dL 05/24 Specimen Type: URINE Comment: If Glucose = >500 and Ketones are positive, please alert the Physician. Ordering Provider: Madelaine SAHA Report Released Date/Time: Apr 26, 2023 04:38 PM Reporting Lab: [facility] [place] [facility] [address] [facility] [address] Performing Lab: [facility] [place] [facility] [address] [facility] [address] [facility] URINALYS IS KETONES [MASS/VOLU ME] IN URINE BY TEST STRIP NEGATIVE mg/dL 05/24 Specimen Type: URINE Comment: If Glucose = >500 and Ketones are positive, please alert the Physician. Ordering Provider: Madelaine SAHA Report Released Date/Time: Apr 26, 2023 04:38 PM Reporting Lab: [facility] [address] [facility] [address] Performing Lab: [facility] [address] [facility] [address] [facility] URINALYS IS ERYTHROCYT ES [PRESENCE] IN URINE SEDIMENT BY LIGHT MICROSCOPY NEGATIVE mg/dL 05/24 Specimen Type: URINE Comment: If Glucose = >500 and Ketones are positive, please alert the Physician. Ordering Provider: Madelaine SAHA Report Released Date/Time: Apr 26, 2023 04:38 PM Reporting Lab: [facility] [address] [facility] [address] Performing Lab: [facility] [place] [facility] [address] [facility] [address] [facility] URINALYS IS PROTEIN [MASS/VOLU ME] IN URINE BY TEST STRIP NEGATIVE mg/dL 05/24 Specimen Type: URINE Comment: If Glucose = >500 and Ketones are positive, please alert the Physician. Ordering Provider: Madelaine SAHA Report Released Date/Time: Apr 26, 2023 04:38 PM Reporting Lab: [facility] [facility] [address] [facility] [address] Performing Lab: [facility] [address] [facility] [address] [facility] URINALYS IS NITRITE [PRESENCE] IN URINE NEGATIVE mg/dL 05/24 Specimen Type: URINE Comment: If Glucose = >500 and Ketones are positive, please alert the Physician. Ordering Provider: Madelaine SAHA Report Released Date/Time: Apr 26, 2023 04:38 PM Reporting Lab: [facility] [address] [facility] [address] Performing Lab: [facility] [address] [facility] [address] [facility] URINALYS IS BILIRUBIN. TOTAL [PRESENCE] IN URINE NEGATIVE mg/dL 05/24 Specimen Type: URINE Comment: If Glucose = >500 and Ketones are positive, please alert the Physician. Ordering Provider: Madelaine SAHA Report Released Date/Time: Apr 26, 2023 04:38 PM Reporting Lab: [facility] [address] [facility] [address] Performing Lab: [facility] [address] [facility] URINALYS IS SPECIFIC GRAVITY OF URINE BY REFRACTOME TRY 1.017 1.016 - 1.022 05/24 Specimen Type: URINE Comment: If Glucose = >500 and Ketones are positive, please alert the Physician. Ordering Provider: Madelaine SAHA Report Released Date/Time: Apr 26, 2023 04:38 PM Reporting Lab: [facility] [address] Performing Lab: [facility] [address] [facility] URINALYS IS PH OF URINE BY TEST STRIP 6.0 5.0 - 9.0 05/24 Specimen Type: URINE Comment: If Glucose = >500 and Ketones are positive, please alert the Physician. Ordering Provider: Madelaine SAHA Report Released Date/Time: Apr 26, 2023 04:38 PM Reporting Lab: [facility] [address] Performing Lab: [facility]ITAL[facility] [address] [facility] URINALYS IS UROBILINOG EN [MASS/VOLU ME] IN URINE BY TEST STRIP <2.0mg/d L <2.0 - 2.0 05/24 Specimen Type: URINE Comment: If Glucose = >500 and Ketones are positive, please alert the Physician. Ordering Provider: Madelaine SAHA Report Released Date/Time: Apr 26, 2023 04:38 PM Reporting Lab: [facility] [place] [facility] [address] [facility] [address] Performing Lab: [facility] [address] [facility] [address] [facility] URINALYS IS LEUKOCYTE ESTERASE [PRESENCE] IN URINE BY TEST STRIP NEGATIVE 05/24 Specimen Type: URINE Comment: If Glucose = >500 and Ketones are positive, please alert the Physician. Ordering Provider: Madelaine SAHA Report Released Date/Time: Apr 26, 2023 04:38 PM Reporting Lab: [facility] [place] [facility] [address] [facility] [address] Performing Lab: [facility] [place] [facility] [address] [facility] [address] [facility] MICROALB UMIN CREATINI NE RATIO PANEL MICROALBUM IN/CREATIN INE [MASS RATIO] IN URINE 21.1 mg/g 0 - 29.9 05/24 Specimen Type: URINE No comment entered. Ordering Provider: Madelaine SAHA Report Released Date/Time: Apr 26, 2023 04:38 PM Reporting Lab: [facility] [place] [facility] [address] [facility] [address] Performing Lab: [facility] [address] [facility] [address] [facility] MICROALB UMIN CREATINI NE RATIO PANEL MICROALBUM IN [MASS/VOLU ME] IN URINE 1.9 mg/dL 05/24 Specimen Type: URINE No comment entered. Ordering Provider: Madelaine SAHA Report Released Date/Time: Apr 26, 2023 04:38 PM Reporting Lab: [facility] [address] [facility] [address] Performing Lab: [facility] [facility] [address] [facility] [address] [facility] [place] [facility] MICROALB UMIN CREATINI NE RATIO PANEL CREATININE [MASS/VOLU ME] IN URINE 89.96 mg/dL 05/24 Specimen Type: URINE No comment entered. Ordering Provider: Madelaine SAHA Report Released Date/Time: Apr 26, 2023 04:38 PM Reporting Lab: [facility] [place] [facility] [address] [facility] [address] Performing Lab: [facility] [place] [facility] [address] [facility] [address] [facility] IRON & TIBC PANEL IRON BINDING CAPACITY [MASS/VOLU ME] IN SERUM OR PLASMA 347 ug/dL 204 - 475 05/24 Specimen Type: SERUM No comment entered. Ordering Provider: Madelaine SAHA Report Released Date/Time: Apr 26, 2023 04:38 PM Reporting Lab: [facility] [place] [address] [address] Performing Lab: [facility] [place] [address] [address] [facility] [place] IRON & TIBC PANEL IRON [MASS/VOLU ME] IN SERUM OR PLASMA 41 ug/dL 40 - 160 05/24 Specimen Type: SERUM No comment entered. Ordering Provider: Madelaine SAHA Report Released Date/Time: Apr 26, 2023 04:38 PM Reporting Lab: [facility] [place] [address] [address] Performing Lab: [facility] [place] [address] [address] [facility] [place] [facility] IRON & TIBC PANEL IRON/IRON BINDING CAPACITY.T OTAL [MASS RATIO] IN SERUM OR PLASMA 11.8 20.0 - 50.0 05/24 L Specimen Type: SERUM No comment entered. Ordering Provider: Madelaine SAHA Report Released Date/Time: Apr 26, 2023 04:38 PM Reporting Lab: [facility] [place] [address] [address] Performing Lab: [facility] [address] [facility] [address] [facility] BASIC METABOLI C PANEL (fasting ) UREA NITROGEN [MASS/VOLU ME] IN SERUM OR PLASMA 17 mg/dL 7 - 25 05/24 Specimen Type: SERUM No comment entered. Ordering Provider: Madelaine SAHA Report Released Date/Time: Apr 26, 2023 04:38 PM Reporting Lab: [facility] [address] [facility] [address] Performing Lab: [facility] [address] [facility] [address] [facility] BASIC METABOLI C PANEL (fasting ) GLUCOSE [MASS/VOLU ME] IN SERUM OR PLASMA 95 mg/dL 65 - 100 05/24 Specimen Type: SERUM No comment entered. Ordering Provider: Madelaine SAHA Report Released Date/Time: Apr 26, 2023 04:38 PM Reporting Lab: [facility]N [facility] [address] [facility] [address] Performing Lab: [facility]ITAL[facility] [address] [facility]N [facility] BASIC METABOLI C PANEL (fasting ) SODIUM [MOLES/VOL UME] IN SERUM OR PLASMA 142 mmol/L 135 - 145 05/24 Specimen Type: SERUM No comment entered. Ordering Provider: Madelaine SAHA Report Released Date/Time: Apr 26, 2023 04:38 PM Reporting Lab: [facility] [place] [address] [address] Performing Lab: [facility] [address] [facility] [address] [facility] BASIC METABOLI C PANEL (fasting ) POTASSIUM [MOLES/VOL UME] IN SERUM OR PLASMA 4.8 mmol/L 3.5 - 5.0 05/24 Specimen Type: SERUM No comment entered. Ordering Provider: Madelaine SAHA Report Released Date/Time: Apr 26, 2023 04:38 PM Reporting Lab: [facility] [place] [facility] [address] [facility] [address] Performing Lab: [facility] [place] [facility] [address] [facility] [address] [facility] [place] [facility] BASIC METABOLI C PANEL (fasting ) CHLORIDE [MOLES/VOL UME] IN SERUM OR PLASMA 107 mmol/L 100 - 110 05/24 Specimen Type: SERUM No comment entered. Ordering Provider: Madelaine SAHA Report Released Date/Time: Apr 26, 2023 04:38 PM Reporting Lab: [facility] [place] [facility] [address] [facility] [address] Performing Lab: [facility] [place] [facility] [address] [facility] [address] [facility] BASIC METABOLI C PANEL (fasting ) CARBON DIOXIDE, TOTAL [MOLES/VOL UME] IN SERUM OR PLASMA 24 meq/L 20 - 30 05/24 Specimen Type: SERUM No comment entered. Ordering Provider: Madelaine SAHA Report Released Date/Time: Apr 26, 2023 04:38 PM Reporting Lab: [facility] [place] [facility] [address] [facility] [address] Performing Lab: [facility] [place] [address] [address] [facility] BASIC METABOLI C PANEL (fasting ) CREATININE [MASS/VOLU ME] IN SERUM OR PLASMA 1.49 mg/dL 0.50 - 1.40 05/24 H Specimen Type: SERUM No comment entered. Ordering Provider: Madelaine SAHA Report Released Date/Time: Apr 26, 2023 04:38 PM Reporting Lab: [facility] [place] [facility] [address] [facility] [address] Performing Lab: [facility] [place] [address] [address] [facility] BASIC METABOLI C PANEL (fasting ) GLOMERULAR FILTRATION RATE/1.73 SQ M.PREDICTE D [VOLUME RATE/AREA] IN SERUM, PLASMA OR BLOOD BY CREATININE -BASED FORMULA (CKD-EPI 2020) 48 mL/min 60 05/24 L Specimen Type: SERUM No comment entered. Ordering Provider: Madelaine SAHA Report Released Date/Time: Apr 26, 2023 04:38 PM Reporting Lab: [facility] [place] [address] [facility] [address] Performing Lab: [facility] [place] [address] [facility] [address] [facility] [place] Vital Signs Combined list of [...] Disposition Source [facility] [place] Outpatient Encounter [id number] 04/08 [facility] [place] [facility] [place] [facility] WHEELCHAIR MNGMENT TRAINING [id number] Diagnos is: ICD-10- CM R26.89 Other abnorma lities of gait and mobilit y JOHN MCFADDEN ICA L 04/12 [facility] [place] [facility] [place] [facility] OFFICE O/P EST LOW 20-29 MIN [id number] Diagnos is: ICD-10- CM M35.00 Sjogren syndrom e, unspeci VALENTÍN Denise F 04/23 [facility] [place] [facility] [place] [facility] Outpatient Encounter [id number] ALEXUS ZARAGOZA John 04/24 [place] [facility] [place] [facility] Outpatient Encounter [id number] Diagnos is: ICD-10- CM Z04.89 Encount er for examina tion and observa tion for oth reasons PEÑA ZARAGOZACharlee Lopez 04/24 [facility] [place] [facility] Outpatient Encounter [id number] 04/27 [facility] [place] [place] [facility] TTE W/DOPPLER COMPLETE [id number] Diagnos is: ICD-10- CM 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 KIRT Lundy 05/03 [facility] [place] [facility] CARDIOVERS ION ELECTRIC INT [id number] Diagnos is: ICD-10- CM Z13.9 Encount er for screeni ng, unspeci fied CHANI PISANO 05/03 [facility] Encounter [id number] 07/23 [facility] [place] [facility] Outpatient Encounter [id number] 08/10 [facility] [place] [facility] QNHP OL DIG ASSMT&MGMT 5-10 [id number] Diagnos is: ICD-10- CM S91.009 A Unspeci fied open wound, unspeci fied ankle, initial encount er KATY THORPE 08/16 [facility] Outpatient Encounter [id number] Diagnos is: ICD-10- CM F43.10 Post-tr aumatic stress disorde r, unspeci fied FEARING,PARVEZ Lopez 09/20 [facility] [place] [facility] Outpatient Encounter [id number] FEARING,PARVEZ Lopez 09/20 [facility] [place] [facility] Outpatient Encounter [id number] 10/04 [facility] [place] [facility] OFFICE O/P EST LOW 20 MIN [id number] Diagnos is: ICD-10- CM J44.9 Chronic obstruc tive pulmona ry disease , unspeci fied VALENTÍN SAHA 10/21 [facility] OFF/OP EST MAY X REQ PHY/QHP [id number] Diagnos is: ICD-10- CM I10 Essenti al (primar y) hyperte Dionna Salinas M 10/24 [facility] COMPRE OPH EXAM NEW PT 1/> [id number] Diagnos is: ICD-10- CM H40.013 Open angle with borderl ine finding s, low risk, bilater al PARVEZ LEMUS 10/24 [facility] ECHO EXAM OF EYE THICKNESS [id number] Diagnos is: ICD-10- CM H40.013 Open angle with borderl ine finding s, low risk, bilater al PARVEZ LEMUS 10/24 [facility] FIT SPECTACLES MULTIFOCAL [id number] Diagnos is: ICD-10- CM Z46.0 Encount er for fit/adj st of spectac les and contact lenses PARVEZ LEMUS 10/25 [facility] Out[facility] Encounter [id number] 10/25 [facility] Out[facility] Encounter [id number] 11/23 [facility] Encounter [id number] 12/07 [facility] Out[facility] Encounter [id number] 12/09 [facility] Out[facility] Encounter [id number] 12/09 [facility] Encounter [id number] 01/23 [facility] QNHP OL DIG ASSMT&MGMT 5-10 [id number] Diagnos is: ICD-10- CM Z12.2 Encntr screen for maligna nt neoplas m of respira tory organs PUCHALSKI, MIRELA L 01/23 [facility] Encounter [id number] 01/31 [facility] Out[facility] Encounter [id number] 05/11 [facility] Out[facility] Encounter [id number] 05/16 [facility] QNHP OL DIG ASSMT&MGMT 5-10 [id number] 1. Diagnos is: ICD-10- CM R52 Pain, unspeci fied GDULA,LAURA A 05/26 [facility] Encounter [id number] 1.06/01 [facility] Out[facility] Encounter [id number] 08/09 [facility] OFFICE O/P EST HI 40 MIN [id number] Diagnos is: ICD-10- CM H40.013 Open angle with borderl ine finding s, low risk, bilater al ISABELL BARRY H B 09/07 [facility] [place] [facility] FIT SPECTACLES MULTIFOCAL [id number] ISABELL BARRY H B 09/07 [facility] [place] [facility] Social History Combined list of available smoking, tobacco, and other social history from Department of Defense and Veterans Affairs facilities. Social History Type Response Date Comment Sourc e Tobacco smoking status NHIS HI-TOBACCO USE FORMER CIGARETTES 06/01/2024 [facility] [place] [facility] of [facility] 06/01/2024 [facility] [place] [facility] History of tobacco use HI-TOBACCO FORMER USER 01/22/2023 [facility] [place] [facility] History of tobacco use HI-TOBACCO FORMER USER 02/17/2022 [facility] [place] [facility] of [facility] TO < 5 YRS 06/22/2019 VICKY EVANS Plan of Care List of future care activities from Department of Veterans [facility] facilities. Additional future care activities may be listed in the Assessment and Plan section. Date/Time Care Activity Care Activity Detail Facili ty 10/20/2024 AMBULAT[facility] - MEDIC[facility] Advance Directives List of completed, amended, or rescinded Advance Directives on record at Department of Veterans Affairs facilities. An actual copy of the Directive is not included. Date Advance Directive Provider Source 10/26/2023 ADVANCE DIRECTIVE MARGARITA KRAFT [facility]
--- OUTSIDE RECORDS SUMMARY | 2024-09-25 12:19 | XMS_ITS | Patient Health Record ---
Author Organization [facility] [place] Address [address] [place] [id number] Care Team Providers Care Proof Carrier Name Role Phone Lalitha MORALES, William Primary Care Provider Kong Nava Unavailable [phone] Arnav Limon Unavailable Unavailable Allergies No Known Allergies Reason For Referral No Information Medications Medication SIG (Take, Route, Frequency, Duration) Notes Start Date End Date Status Enbrel SureClick 50 MG/ML Subcutaneous Active Problems Problem Type SNOMED Code ICD Code Onset Dates Problem Status W/U Status Risk Notes Problem Skin ulcer of calf (174542652) Ulcer (skin exp) LEFT CALF (L97.221) Active confirmed Problem Varicose veins of lower extremity (00696696) Vikash Insuf (other compl) LEFT (I83.892) Active confirmed Problem Vikash Insuf (ulcer) LEFT CALF (I83.022) Active confirmed Plan Of Treatment No Information Insurance Providers Payer Name Payer Address Payer Phone Subscriber Number Group Number Insured Name Patient Relationship to Insured Coverage Start Date Coverage End Date [employer] Blue [address] [place] [address] [id number] Sarath Gipson Self - patient is the insured [facility],EPO & Medigap [address] [place] [address] [id number] Farideh Gipson Spouse - patient is the spouse of the insured [employer] [address] [place] [address] [id number] Sarath Gipson Self - patient is the insured 8
== END 2024-09-25 11:30 | disposition home or self-care (01) ==
LOC: HO.HPS 10:46
PROVIDERS: PCP Internal Medicine; Visit Provider Nurse Practitioner Family
DX: J44.9 Chronic obstructive pulmonary disease, unspecified (principal); Z87.891 Personal history of nicotine dependence; R05.9 Cough, unspecified; G47.34 Idiopathic sleep related nonobstructive alveolar hypoventilation
CPT/HCPCS: 99214

== ENCOUNTER → 2024-09-25 10:45 | Outpatient (BNVA) | payer MEDICARE, SELFPAY | PROVIDERS: PCP Internal Medicine; Visit Provider Nurse Practitioner Family | DX: J44.9 Chronic obstructive pulmonary disease, unspecified (principal); R05.9 Cough, unspecified; G47.34 Idiopathic sleep related nonobstructive alveolar hypoventilation; Z87.891 Personal history of nicotine dependence | CPT/HCPCS: 99212 ==

== ENCOUNTER 2024-10-02 11:02 | Outpatient (AMB) | payer MEDICARE, SELFPAY ==
--- NOTE | 2024-10-02 11:06 | MHC.OFFVIS ---
Vital Signs 10/02/24 11:20 Height 5 ft 6 in Weight 180 lb BMI 29.0 BP 145/93 H Blood Pressure Location Lt brachial Position Sitting Pulse 82 Pulse Source Pulse Oximeter Pulse Oximetry (%) 97 Oxygen Delivery Method Room Air Intake Visit Reasons: Pill Count Intake Note: Sarath comes in today for a pill count to hydromorphone, patient should have 0 tablets and presents with 42 tablets ( 30 from current script 12 from previous script) which he last took on September 13. 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 Patient is supposed to have #0 pills, in his possession has #42 pills. Patient takes hydromorphine mostly during the wound care and dressing changes in clinic and at home. Patient reports adequate analgesia with current medication regime and reports he does not take hydromorphine with every dressing changes. He reports decreased pain with instep on left side. He continues to take gabapentin but prefers a decreased dose, and continue same doses for duloxetine and Tylenol. Patient and his report left wound has slightly improved. He continues to regularly follow up with Wound care center and Dermatology providers. Denies any fever, chills, weight loss, bleeding, weakness, dizziness, shortness of breaths, constipation, nausea, sedation, urinary retention or abdominal pain. 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 Acute pulmonary embolism with acute cor pulmonale Acute pulmonary embolism Cardiac arrest CKD (chronic kidney disease) stage 3, GFR 30-59 ml/min Sjogren's disease Leg pain, bilateral Elevated serum creatinine COPD (chronic obstructive pulmonary disease) HTN (hypertension) Rheumatoid arthritis Chronic ulcer of leg Surgical History History of ankle surgery History of hernia repair History of left knee replacement Family History Sister Breast cancer Father Aneurysm Mother Angina at rest Other No family history of coronary artery disease Social History Household Members: Spouse Housing: House Do you presently have visiting nurse or other home services: No Alcohol intake: current Alcohol intake frequency: holidays/special occasions only Comment: restraints Patient Tobacco Use Status: Former Tobacco user Tobacco use type: Cigarette Cigarette Packs Per Day: 1 Years Smoked: quit 2018/ 30+ years e-Cigarette/Vaping Use: Never Used Second Hand Smoke Exposure: No Advance Directives Date on File: 12/23/21 service: Yes Current occupational status: retired Cognitive needs: Yes (cane) Hearing needs: No Vision needs: Yes (Pt wear glasses. ) Review of Systems Const All systems reviewed & are unremarkable except as noted in HPI and below Physical Exam Vital Signs: Last Vital Signs Pulse 82 10/02/24 11:20 BP 145/93 H 10/02/24 11:20 Pulse Ox 97 10/02/24 11:20 Oxygen Delivery Method Room Air 10/02/24 11:20 BMI result Body Mass Index 29.0 General: Appears afebrile. No acute distress. Alert and oriented. Mood and affect appropriate. Follows and participates in conversation appropriately. Respiratory effort is unlabored. No cough. Sitting comfortably in the wheelchair. Left lower leg with dressing, dry and intact. Eyes General: appearance normal, both eyes and all related structures Resp Effort & Inspection: normal respiratory effort, able to speak in complete sentences, no cough, no respiratory distress and No symmetric chest movement GI Inspection: Yes normal to inspection Palpation (GI): Soft to palpation, nontender and no guarding Psych Appearance: grossly normal and well kempt Mental Status: mental status grossly normal Speech and movement: Normal speech and movement present and Clear speech present Affect: normal affect Attitude: cooperative Thought process: Normal thought process present Thought content: Normal thought content present, suicidality (none), no hallucinations and Depressive thoughts present Insight: Good insight present (Psych) Judgement: Good judgement present (Psych) Results Reviewed Results Reviewed: Assessment & Plan Assessment & Plan (1) Chronic pain of left lower extremity: Code(s): M79.605 - Pain in left leg; G89.29 - Other chronic pain Category: Medical (2) Peripheral neuropathy: Code(s): G62.9 - Polyneuropathy, unspecified Category: Medical (3) Non-healing wound of left lower extremity: Code(s): S81.802A - Unspecified open wound, left lower leg, initial encounter Category: Medical (4) Pyoderma gangrenosum: Code(s): L88 - Pyoderma gangrenosum Category: Medical (5) Chronic, continuous use of opioids: Code(s): F11.90 - Opioid use, unspecified, uncomplicated Category: Medical Plan Patient has shown accountability for his medication regimen and the pill count was accurate. There is no evidence of misuse, abuse or diversion at this time. LoiLo reviewed. Last script for hydromorphine was sent in July. Will hold off script for hydromorphine 2 mg BID prn due to surplus in pill count today, he takes it for wound care/dressing changes and moderate-severe pain as needed. Continue duloxetine at pm, gabapentin decreased to 400 mg TID and Tylenol as needed. Follow up with [facility] Centers as scheduled. All questions were answered and the patient is in agreement with the plan. Follow up in 8 weeks for a pill count or sooner if needed. Medications: New gabapentin 400 mg PO TID 30 days 90 tabs 0RF pain G62.9 - Polyneuropathy, unspecified, G89.29 - Other chronic pain, M79.605 - Pain in left leg Discontinued gabapentin Discontinued Reason: Duplicate 800 mg PO BEDTIME 90 days 90 tabs 3RF pain G62.9 - Polyneuropathy, unspecified, S81.802A - Unspecified open wound, left lower leg, initial encounter gabapentin Discontinued Reason: Duplicate 600 mg PO DAILY 90 days 90 tabs 1RF pain G62.9 - Polyneuropathy, unspecified, G89.29 - Other chronic pain, M79.605 - Pain in left leg Coding Level of Care Code Est Pt Level 4 (61998) Complex EM visit Add On G2211 Diagnoses Chronic pain of left lower extremity M79.605; G89.29 Peripheral neuropathy G62.9 Non-healing wound of left lower extremity S81.802A Pyoderma gangrenosum L88 Chronic, continuous use of opioids F11.90
[2024-10-02 11:20] VITALS: BP 145/93; PULSE 82; O2SAT 97; BMI 29.0
== END 2024-10-02 11:37 | disposition home or self-care (01) ==
LOC: HO.PMC 11:03
PROVIDERS: PCP Internal Medicine; Visit Provider Nurse Practitioner Family
DX: M79.605 Pain in left leg (principal); G89.29 Other chronic pain; G62.9 Polyneuropathy, unspecified; Z79.891 Long term (current) use of opiate analgesic; S81.802A Unspecified open wound, left lower leg, initial encounter; L88 Pyoderma gangrenosum
CPT/HCPCS: 99214; G2211

== ENCOUNTER → 2024-10-02 11:02 | Outpatient (BNVA) | payer MEDICARE, SELFPAY | PROVIDERS: PCP Internal Medicine; Visit Provider Nurse Practitioner Family | DX: M79.605 Pain in left leg (principal); G89.29 Other chronic pain; G62.9 Polyneuropathy, unspecified; L88 Pyoderma gangrenosum; S81.802A Unspecified open wound, left lower leg, initial encounter; F11.90 Opioid use, unspecified, uncomplicated; X58.XXXA Exposure to other specified factors, initial encounter; Y93.9 Activity, unspecified; Y92.9 Unspecified place or not applicable; Y99.9 Unspecified external cause status; Z51.81 Encounter for therapeutic drug level monitoring | CPT/HCPCS: 99212 ==

== ENCOUNTER 2024-10-09 09:45 | Outpatient (REF) | payer MEDICARE, SELFPAY ==
[2024-10-09 13:51] LABS: MANUAL DIFF FLAG NO
[2024-10-09 13:55] LABS: Basophils Absolute Auto 0.1 X10*3/uL (0.0-0.2); Basophils Percent Auto 0.8 % (0-2); Eosinophils Absolute Auto 0.1 X10*3/uL (0.0-0.4); Eosinophils Percent Auto 1.2 % (0-4); Hematocrit 46.7 % (42.0-52.0); Hemoglobin 14.4 g/dl (14.0-18.0); Imm Gran Abs Auto 0.06 X10*3/uL (0.00-0.03); Imm Gran Pct Auto 0.7 % (0.0-0.4); Immature Retic Fraction 21.1 % (2.3-13.4); Lymphocytes Absolute Auto 2.1 X10*3/uL (1.2-4.9); Lymphocytes Percent Auto 25.5 % (20-40); Mean Corpuscular HGB Conc 30.8 g/dl (31.0-36.0); Mean Corpuscular Hemoglobin 26.5 pg (27.0-33.0); Monocytes Absolute Auto 0.5 X10*3/uL (0.1-1.2); Monocytes Percent Auto 6.3 % (2-11); Neutrophils Absolute Auto 5.4 x10*3/uL (2.0-8.3); Neutrophils Percent Auto 65.5 % (45-73); Platelet Count 255 X10*3/uL (160-400); Red Blood Count 5.43 X10*6/uL (4.60-5.80); Red Cell Distribution Width 19.5 % (11.0-16.0); Retic HGB Equivalent 30.2 pg (30.0-35.0); Reticulocyte Percent 1.6 % (0.5-1.8); Reticulocytes Absolute 0.086 X10*6/uL (0.026-0.095); White Blood Count 8.3 X10*3/uL (4.8-10.8)
[2024-10-09 14:08] LABS: Estimated Average Glucose 123 mg/dL; Hemoglobin A1C 155.0351 umol/L; Hemoglobin A1c % 5.9 % (<6.0); Total Hemoglobin (HGBA1C) 3777.0449 umol/L
[2024-10-09 14:17] LABS: Alanine Aminotransferase 27 U/L (0-40); Alkaline Phosphatase 47 U/L (39-117); Anion Gap 13 (12-20); Aspartate Amino Transferase 22 U/L (5-37); Bilirubin Total 0.6 mg/dL (0.0-1.0); Blood Urea Nitrogen 16 mg/dL (9-16); Calcium 9.6 mg/dL (8.4-10.2); Carbon Dioxide 27 mmol/L (22-29); Chloride 108 mmol/L (96-108); Cholesterol 176 mg/dL (<200); Estimated Glomerular Filt Rate 56; Glucose Random 81 mg/dL (60-115); HDL Cholesterol 53 mg/dL (>40); Iron 76 mcg/dL (45-160); LDL Cholesterol Calculated 103 mg/dL (<100); Percent Iron Saturation 30 % (15-50); Potassium 3.9 mmol/L (3.3-5.1); Sodium 144 mmol/L (135-145); Total Iron Binding Capacity 255 mcg/dL (228-428); Total Protein 7.2 g/dL (6.5-8.0); Triglycerides 101 mg/dL (<150); Unsaturated Iron Binding 179 ug/dL
[2024-10-09 14:37] LABS: Ferritin 78 ng/mL (20-250); Free T4 (Free Thyroxine) 0.89 ng/dL (0.71-1.85); Thyroid Stimulating Hormone 2.64 uIU/mL (0.32-4.0); Vitamin D 25-OH Total 59.1 ng/mL (>30)
[2024-10-09 14:45] LABS: Vitamin B12 480 pg/mL (200-900)
== END 2024-10-09 09:46 | disposition home or self-care (01) ==
LOC: HO.HMGCLDS 09:45
PROVIDERS: PCP Internal Medicine; Visit Provider Internal Medicine
DX: I10 Essential (primary) hypertension (principal); E78.00 Pure hypercholesterolemia, unspecified
CPT/HCPCS: 36415; 80053; 80061; 82306; 82607; 82728; 82746; 83036; 83540; 84439; 84443; 85025; 85045

== ENCOUNTER → 2024-10-16 09:49 | Outpatient (REF) | payer MEDICARE, SELFPAY ==
--- NOTE | 2024-10-16 09:55 | CA_ITS ---
Transthoracic Echocardiogram Patient (Last, First, Middle): Sarath Gipson, Gender: Male Date of : 1945 Age: 78 Procedure Date: 10/16/2024 Procedure Type: Transthoracic Echocardiogram Location: OP Height: 167.64 cm Weight: 85.28 kg BSA: 1.95 m2 Heart Rate: 73 bpm BP: 132 / 76 mmHg Salesperson Flying Squad: SB Referring MD: Majo Barrera BEAUTICIAN APPRENTICEVeena Symptoms: I77.810 - Thoracic aortic ectasia Study Quality: Fair/restricted positioning ECG Rhythm: Sinus Conclusions: - LVEF difficult to evaluate. Hyperdynamic in some views. Somewhat low normal in others. LVEF 55% by biplane method. Possible basal inferolateral hypokinesis. - No obvious valvular pathology seen on this study. Findings Procedure Information The quality of the study was technically difficult. The study quality is limited by patients body habitus and lung artifact. Left Ventricle Normal left ventricular cavity size. Diastolic function is normal for age. There is mild septal asymmetric hypertrophy. LVEF difficult to evaluate. Hyperdynamic in some views. Somewhat low normal in others. LVEF 55% by biplane method. Possible basal inferolateral hypokinesis. Right Ventricle Normal right ventricular cavity size and systolic function. Atria Both atria are normal in size. Aortic Valve There is a normal trileaflet aortic valve. There is no aortic valve stenosis. There is no aortic valve regurgitation. Mitral Valve The mitral valve appears normal. There is no mitral valve regurgitation. There is no mitral valve stenosis. Pulmonic Valve The pulmonic valve is likely normal. Tricuspid Valve There is trace tricuspid valve regurgitation. Tricuspid regurgitation envelope is inadequate for calculation of right ventricular systolic pressure. Great Vessels The asc aorta is normal in size. Venous The inferior vena cava was not well visualized. Pericardium/Pleural There is no evidence of pericardial effusion. Prior Study Comparison Changes noted compared to prior study dated: 11/05/2023. Ascending aortic size 3.8 cm. Unclear if the change is due to technical differences. Recommendations, Care & Conclusions No obvious valvular pathology seen on this study. Measurements 2D Linear Measurements IVSd: 1.17 0.6-0.9/0.6-1.0 cm LVIDd: 4.25 3.9-5.3/4.2-5.9 cm LVIDd Index: 2.18 2.4-3.2/2.2-3.1 cm/m2 LVIDs: 3.19 2.0-3.6 cm LVPWd: 1.02 0.7-1.1 cm LV Mass: 197.94 67-162/88-224 g LV Mass Index: 101.51 43-95/49-115 g/m2 LVOT Diam: 2.60 3.0+(-)1.3 cm 2D Systolic Function EF 2C: 54.90 >55% Mitral Valve MV Pk E: 0.43 MV PK A: 0.54 MV Decel Time: 292.00 E/A: 0.80 E'Lateral: 8.27 E'Medial: 5.66 E/E' Med: 7.60 E/E' Lat: 5.20 PHT: 86.00 MVA PHT: 2.56 Decel [place]: 1.47 Aortic Valve AoV Pk Giovani: 0.94 AoV Pk Grad: 4.00 SANJAY: 3.89 LVOT LVOT Pk Giovani: 0.69 LVOT Mn Giovani: 0.50 LVOT VTI: 0.13 LVOT Pk Grad: 2.00 LVOT Mn Grad: 1.00 LVOT Diam: 2.60 LVOT Area: 5.31 Diastolic Function MV Pk E: 0.43 MV Pk A: 0.54 E/A: 0.80 E'Medial: 5.66 E/E' Med: 7.60 E' Laterial: 8.27 E/E' Lat: 5.20 Right Ventricle TAPSE (mm): 23.30 TVS' Giovani: 12.20 Tricuspid Valve RA Press: 8.00 Great Vessels Aorta Sinus of Valsalva: 4.00 2.0-3.5 cm Ao Asc: 3.80 2.1-3.4 cm Pulmonary Valve PV Pk Giovani: 0.74 Peak PV Grad: 2.00 Updated in Other Vendor System with Status of Final Matt Plunkett MD electronically signed on 10/16/2024 11:43:55 AM with status of Final
--- OUTSIDE RECORDS SUMMARY | 2024-10-16 11:23 | XMS_ITS | Clinical Summary ---
Author Organization [facility] Facility Address [address] [place] [id number] Care Team Providers Care Customs Patrol Officer Name Role Phone Kia Stroud MD Primary Care Provider [phone] Social History Tobacco Use Types Packs/Day Years Used Date Smoking Tobacco: Never Assessed Sex and Gender Information Value Date Recorded Sex Assigned at Not on file Legal Sex Male 10:48 AM EDT Gender Identity Not on file Sexual Orientation Not on file Plan of Treatment Health Maintenance Due Date Last Done Comments Pneumococcal Vaccine: 65+ Ye ars (1 - PCV) 2010 Influenza Vaccine (Season Ended) 2025 Hepatitis B Vaccine Aged Out No longe r eligible based on patient's age to complete this topic Insurance [employer] MEDICARE AENA MEDICARE Care Teams Customs Patrol Officer Relationship Specialty Start Date End Date Kia Stroud MD [facility] [address] [place], [place] PCP - General Internal Medicine 12/04/21
--- OUTSIDE RECORDS SUMMARY | 2024-10-16 11:23 | XMS_ITS | Patient Health Record ---
Author Organization [facility] Address [address] [place] [phone] Care Team Providers Care Physical Medicine Specialist Name Role Phone Lalitha MORALES, William Primary Care Provider Kong Nava Unavailable [phone] Arnav Limon Unavailable Unavailable Allergies No Known Allergies Reason For Referral No Information Medications Medication SIG (Take, Route, Frequency, Duration) Notes Start Date End Date Status Enbrel SureClick 50 MG/ML Subcutaneous Active Problems Problem Type SNOMED Code ICD Code Onset Dates Problem Status W/U Status Risk Notes Problem Skin ulcer of calf (965782995) Ulcer (skin exp) LEFT CALF (L97.221) Active confirmed Problem Varicose veins of lower extremity (54974800) Vikash Insuf (other compl) LEFT (I83.892) Active confirmed Problem Vikash Insuf (ulcer) LEFT CALF (I83.022) Active confirmed Plan Of Treatment No Information Insurance Providers Payer Name Payer Address Payer Phone Subscriber Number Group Number Insured Name Patient Relationship to Insured Coverage Start Date Coverage End Date [employer] Blue [address] [place] [address] [id number] Sarath Gipson Self - patient is the insured [employer] PPO,EPO & Medigap [address] [place] [address] [id number] Farideh Gipson Spouse - patient is the spouse of the insured [employer] [address] [place] [address] [id number] Sarath Gipson Self - patient is the insured 8
== END ==
LOC: HO.CARD 09:49
PROVIDERS: PCP Internal Medicine; Visit Provider Nurse Practitioner Family
DX: I77.810 Thoracic aortic ectasia (principal)
CPT/HCPCS: 93306

== ENCOUNTER → 2024-10-16 09:55 | Outpatient (BNV) | payer MEDICARE, SELFPAY | PROVIDERS: PCP Internal Medicine; Visit Provider Internal Medicine | DX: I42.2 Other hypertrophic cardiomyopathy (principal) | CPT/HCPCS: 93306 ==

== ENCOUNTER 2024-11-02 14:48 | Outpatient (AMB) | payer MEDICARE, SELFPAY ==
[2024-11-02 15:14] VITALS: BP 114/62; PULSE 83
--- NOTE | 2024-11-02 15:14 | MHC.OFFVIS ---
Vital Signs 11/02/24 15:14 Height 5 ft 6 in BP 114/62 Blood Pressure Location Rt brachial Position Sitting Pulse 83 Pulse Source Pulse Oximeter Intake Visit Reasons: 6m follow up Automotive Electrician Helper Required: No Live In Housekeeper Nanny: Live In Housekeeper Nanny Present Allergies heparin (porcine) Allergy (Severe, Verified 11/02/24 15:16) HIT Medication List - Last Reconciled 11/03/24 by Majo Barrera PRIVATE DUTY AIDE-C acetaminophen (Tylenol Extra Strength) 1,000 mg PO Q6H PRN albuterol sulfate 90 mcg/actuation 2 puffs inhalation Q6H PRN amlodipine 2.5 mg PO DAILY amoxicillin mg PO duloxetine 20 mg PO BEDTIME fluticasone propionate 50 mcg/actuation (Flonase Allergy Relief) 2 sprays intranasal DAILY PRN dihsimmwctz-gobjnmdam-ycjndokz 100-62.5-25 mcg (Trelegy Ellipta) 1 inh inhalation DAILY gabapentin 600 mg PO BID 30 days Lactobac. rhamnosus GG-inulin 20 billion cell -200 mg (Culturelle Ultimate) 1 cap PO DAILY 2 weeks metoprolol succinate ER 50 mg PO DAILY miscellaneous medical supply As directed naloxone 4 mg/actuation (Narcan) 4 mg intranasal Q2M PRN prednisone 7.5 mg PO DAILY HPI HPI 6m follow up: Details: Sarath is a 78-year-old male with past medical history of hypertension, pulmonary embolism with cardiac arrest 01/2022 with episodes of wide complex rhythm at that time which was thought to be SVT with aberrancy, COPD who presents for follow-up. Today he reports he has been doing well since his last visit in April. He remains mostly sedentary as he can not ambulate on his left foot due to ongoing open wounds. He says they are slowly healing. He has a dressing on his left lower extremity. He denies any chest discomfort at rest or during activity. He does have shortness of breath at times which he relates to COPD. He now wears oxygen at night. No lightheadedness, presyncope, syncope. He has mild lower leg edema. Compliant with all his medications. Blood pressure has been mostly controlled. is present. 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 Acute pulmonary embolism with acute cor pulmonale Acute pulmonary embolism Cardiac arrest CKD (chronic kidney disease) stage 3, GFR 30-59 ml/min Sjogren's disease Leg pain, bilateral Elevated serum creatinine COPD (chronic obstructive pulmonary disease) HTN (hypertension) Rheumatoid arthritis Chronic ulcer of leg Surgical History History of ankle surgery History of hernia repair History of left knee replacement Family History Sister Breast cancer Father Aneurysm Mother Angina at rest Other No family history of coronary artery disease Social History Household Members: Spouse Housing: House Do you presently have visiting nurse or other home services: No Alcohol intake: current Alcohol intake frequency: holidays/special occasions only Comment: restraints Patient Tobacco Use Status: Former Tobacco user Tobacco use type: Cigarette Cigarette Packs Per Day: 1 Years Smoked: quit + years e-Cigarette/Vaping Use: Never Used Second Hand Smoke Exposure: No Advance Directives Date on File: 12/23/21 service: Yes Current occupational status: retired Cognitive needs: Yes (cane) Hearing needs: No Vision needs: Yes (Pt wear glasses. ) Review of Systems Const All systems reviewed & are unremarkable except as noted in HPI and below ENT Denies dizziness Card Denies chest pain, Denies chest pain at rest, Denies chest pain with activity, Denies rapid heart rate, Denies pedal edema, Denies edema, Denies leg edema, Denies lightheadedness, Denies palpitations, Denies dyspnea, Denies dyspnea on exertion and Denies orthopnea Resp Denies cough, Denies dyspnea and Denies dyspnea on exertion GI Denies hematochezia and Denies change in stool character Musc Details: wound left foot with dressing - unable to weight bear on it. uses wheelchair Reports abnormal gait, Denies limited range of motion, Denies muscle cramps, Denies muscle weakness, Denies numbness, Denies radiating pain into limb, Denies stiffness and Denies tingling Neuro Reports abnormal gait, Denies dizziness, Denies numbness and Denies tingling Endo Denies palpitations Physical Exam Vital Signs: Last Vital Signs Pulse 83 11/02/24 15:14 BP 114/62 11/02/24 15:14 Const General: cooperative, healthy appearing, comfortable and no acute distress Orientation/consciousness: patient oriented x3 Neck Neck: Yes normal visual inspection and Yes no JVD Resp Effort & Inspection: normal respiratory effort Auscultation: clear to auscultation bilaterally, no crackles, no rales, no rhonchi and no wheezes Cardio Jugular venous distension: no JVD Rate: regular rate Rhythm: regular rhythm Heart sounds: S1 normal heart sound present, S2 normal heart sound present, no murmurs and no rubs Neuro General: patient oriented x3 Extrem Other: dressing to left lower extremity. In wheelchair. General: No calf tenderness Psych Appearance: grossly normal Mental Status: mental status grossly normal Speech and movement: Normal speech and movement present Assessment & Plan Assessment & Plan (1) HTN (hypertension): Code(s): I10 - Essential (primary) hypertension Category: Medical Plan: Blood pressure goal less than 130/80. Currently controlled with med management. Continue metoprolol XL 50 mg daily. Continue amlodipine 2.5 mg daily. Reviewed low-salt diet. (2) Acute pulmonary embolism with acute cor pulmonale: Code(s): I26.09 - Other pulmonary embolism with acute cor pulmonale Category: Medical Plan: History of an acute pulmonary embolism with cor pulmonale, cardiac arrest 01/2022. He cardiology consult at that time however did not followed up in our office until October 2023. He tells me he has had no recurrent issues with blood clots. Echocardiogram done 10/16/2024 shows EF 55%, possible basal inferior lateral hypokinesis, RV size and function normal, ascending aorta 3.8 cm. No signs of heart failure on exam. (3) Cardiac arrest: Code(s): I46.9 - Cardiac arrest, cause unspecified Category: Medical Plan: At time of acute PE. Recent echo shows normal EF and normal RV. It does state possible basal inferior lateral hypokinesis. He has no reports of chest discomfort at rest or with activity. Will check with his primary patternmaker metal regarding any further testing. (4) SVT (supraventricular tachycardia): Code(s): I47.10 - Supraventricular tachycardia, unspecified Category: Medical Plan: Following PE while still hospitalized he was having runs of wide complex tachycardia which was evaluated by Dr. Carr and felt to be SVT with aberrancy. He was put on metoprolol and remains on it for heart rate and blood pressure control. No reports of heart palpitations. Holter monitor done on 02/10/2024 for 3 days showed sinus rhythm with heart rates average 71, rare SVE, rare ve with 2 brief runs, 4 beats, no pauses or heart block. Will continue on metoprolol. (5) Ascending aorta dilatation: Comment: October 2023 4.1 Code(s): I77.810 - Thoracic aortic ectasia Category: Medical Plan: Prior echo shows dilated ascending aorta 4.1 cm. More recent echo shows ascending aorta 3.8 cm. Plan Time spent on chart review, documentation, interview and assessment Medications: Refilled metoprolol succinate ER 50 mg PO DAILY 90 tabs 3RF amlodipine 2.5 mg PO DAILY 90 tabs 3RF Coding Level of Care Code Est Pt Level 4 (20624) Complex EM visit Add On G2211 Diagnoses HTN (hypertension) I10 Acute pulmonary embolism with acute cor pulmonale I26.09 Cardiac arrest I46.9 SVT (supraventricular tachycardia) I47.10 Ascending aorta dilatation I77.810 Time Spent (min) 30
--- OUTSIDE RECORDS SUMMARY | 2024-11-02 17:32 | XMS_ITS | Encounter Summary ---
Author Name [facility] [facility] [place] [address] [place] [id number] Care Team Providers Care Bench Lathe Operator Name Role Phone LYDIA MG Primary [...] Holland's Name Patient's Relationship to Policy [facility] ([facility]) Jul 12, 2023 [id number] [phone] [place] PATIENT AETNA [facility] ([facility]) MEDICARE ADVANTAGE MCR ([facility]) Jul 12, 2023 [id number] [phone] [place] PATIENT AETNA [facility] (WNR) MEDICARE ADVANTAGE MCR ([facility]) Jul 12, 2019 [id number] [phone] [place] PATIENT [facility] (WNR) Jul 12, 2018 [id number] [phone] QUEENIENH SIMÓNIAM PATIENT EMPIRE [employer] [facility] (WNR) MEDICARE [facility] (WNR) Sep 09, 2017 [id number] [phone] [facility] [employer] [facility] (WNR) MEDICARE [facility] (WNR) Jul 12, 2017 [id number] QUEENIENH SIMÓNIAM PATIENT Selected Encounter This section includes the information on record at [place] for the Encounter. Date/Time Encounter Type Encounter Description Reason Provider Source Oct 20, 2024 01:30 PM OFFICE O/P EST LOW 20 MIN PRIMARY CARE/MEDICINE ICD-10-CM M35.00 Sjogren syndrome, unspecified VANWAGNER,WILL LAURA F IHE Encounter Template Text not used by [place] Assessments - Encounter Diagnoses This section includes the primary and secondary diagnoses documented for the Encounter. Date/Time Primary/Secondary Diagnosis Diagnosis Name Provider Source Oct 20, 2024 01:52 PM PRIMARY Sjogren syndrome, unspecified VANWAGNER,WILL LAURA F [place] [facility] [place] [facility] Oct 20, 2024 01:52 PM SECONDARY Acute embolism and thrombosis of deep vn unsp up extrem VANWAGNER,WILL LAURA F [place] [facility] [place] [facility] Oct 20, 2024 01:52 PM SECONDARY Chronic obstructive pulmonary disease, unspecified VANWAGNER,WILL LAURA F [place] [facility] [place] [facility] Oct 20, 2024 01:52 PM SECONDARY Pain, unspecified VANWAGNER,WILL LAURA F [facility] [place] [facility] Plan of Treatment: Future Appointments (+ 6 months) and Future Tests (+/- 45 days) The Plan of Treatment section includes future care activities for the patient from all [place] treatmentfacilities. This section includes future appointments and future orders which are active, pending or scheduled. Future Appointments This section includes appointments that were scheduled to occur 6 months from the date of the Encounter, up to a maximum of 20 appointments. The data comes from all [place] treatment facilities. Appointment Date/Time Appointment Type Appointme nt Facility Name Jan 16, 2025 11:15 AM AMBULATORY - NONE [place] [facility] [place] [facility] Active, Pending, and Scheduled Orders This section includes a listing of several types of active, pending, and scheduled orders, including clinic medications orders, diagnostic test orders, procedure orders and consult orders; where the start date of the order is 45 days before the date of the Encounter or 45 days after the date of theEncounter. The data comes from all [place] treatment facilities. Test Date/Time Test Type Test Details Facility Name Oct 20, 2024 01:45 PM Consult Order COMMUNITY CARE-WOUND Cons [facility] [place] [facility] Vital Signs: All taken on the encounter date This section contains inpatient and outpatient Vital Signs collected on the date of the Encounter. Date/Time Temperature Pulse Blood Pressure Respiratory Rate SP02 Pain Height Weight Body Mass Index Source Oct 20, 2024 01:06 PM 98.3 80 124/78 16 92 7 196 32 [facility] Social History: Smoking Status (Most current) and Tobacco Use (All prior to encounter date) This section includes the most current, and the historical, smoking and tobacco- related health factors from the [place] facility where the Encounter took place. Current Smoking Status This section includes the most current smoking, or tobacco-related health factor, from the [place] facility where the Encounter took place. Date/Time Current Smoking Status Comment Valeria ity Jun 01, 2024 10:57 AM VA-TOBACCO NEVER U SED OTHER TYPE [facility] [place] [facility] Tobacco Use History This section includes a history of the smoking, or tobacco-related health factors, that were collected on or before the date of the Encounter. The data comes from the [place] facility where the Encounter took place. Date/Time Smoking Status/Tobacco Use Comment F acility Jun 01, 2024 10:57 AM VA-TOBACCO USE FOR AKANKSHA CIGARETTES [place] [facility] [place] [facility] Jan 22, 2023 01:30 PM VA-TOBACCO FORMER USER [place] [facility] [facility] [facility] Jan 22, 2023 01:30 PM VA-TOBACCO QUIT 5 TO < 15 YRS [place] [facility] [place] [facility] Feb 17, 2022 04:37 PM VA-TOBACCO FORMER USER [place] [facility] [facility] Feb 17, 2022 04:37 PM VA-TOBACCO QUIT 1 TO < 5 YRS [place] [facility] Advance Directives: All historical and current Section Date Range: From patient's date of to the date document was created. This section includes ALL of a patient's completed or amended [place] Advance and Rescinded Directives. The entries below indicate that a directive exists for the patient, but an actual copy is not included with this document. The data comes from all [place] facilities. Date Advance Directives Provider Source Oct 26, 2023 ADVANCE DIRECTIVE ENOCHSIMMARGARITA E [place] [facility] T[facility] Encounter Notes: All associated encounter notes This section contains the clinical notes associated to the Encounter. Date/Time Encounter Note(s) Provider Source Oct 20, 2024 02:23 PM ADDENDUM: LOCAL TITLE: Addendum STANDARD TITLE: ADDENDUM DATE OF NOTE: OCT 20, 2024@14:23:07 ENTRY DATE: OCT 20, 2024@14:23:08 AUTHOR: MIRELA TEJEDA COSIGNER: URGENCY: STATUS: COMPLETED LCS Coordinator placed call to [facility] radiology department, was advised CXR completed in April [address] chest completed November 2023. Requested both reports to be faxed to . LCS Coordinator placed a call to [facility] , per office Bon[place]arte was referred via private insurance from pain management provider at [facility] to the pulmonary team in September 2023. has completed a CT scan with [facility] in November 2023, was seen most recently by Isamar Lock NP [facility] pulmonary in September [address] of the chest in November 2024. Advised that [place] is [place] in [place] through [place] [facility] with annual LCS LDCT in January 2023 and January 2024 with plan for imaging in January 2025. Advised that offices should coordinate so that is not being scanned at a frequency that is not clinically indicated. Direct call back number for LCS Coordinator provided for Isamar Lock NP. Per [facility] Pul medical records are required to be requested via fax request to . Request for clinical notes, PFTs, CT scan reports/chest imaging faxed via [employer] on 10/20/2024 with confirmed receipt. /es/ MIRELA MOTA,RN,OCN LUNG CANCER SCREENING NURSE NAVIGATOR Signed: 10/20/2024 14:49 Receipt Acknowledged By: 10/20/2024 14:59 /es/ JOSHUA YANEZ RN REGISTERED NURSE 10/22/2024 08:09 /es/ Valentín Amador PA-C STAFF PHYSICIAN SENIOR CLINICAL RESEARCH ASSOCIATE ====== --- Original Document --- 10/20/24 TIMOTEO [...] 5. COPD - Chronic Obstructive Pulmonary Disease ([facility] [id number]) 6. Depression ([facility] [id number]) 7. Deep venous thrombosis of upper extremity Left 8. H/O: rheumatoid arthritis 9. Sjogren syndrome 10. PE - Pulmonary Embolism ([facility] [id number]) SERVICE CONNECTED % - 80 [facility] and [...] Indication: TO PREVENT BLOOD CLOTS 10) Non-VA [id number]/VILANTE [id number] 30D INH 1 INHALATION ACTIVE BY MOUTH [...] ask [facility]/ct since an april admission for hypoxia/oxygenation. /flor/ Valentín Amador PA-C STAFF PHYSICIAN SENIOR CLINICAL RESEARCH ASSOCIATE Signed: 10/20/2024 13:52 Receipt Acknowledged By: 10/20/2024 14:13 /es/ JOSHUA YANEZ, RN REGISTERED NURSE 10/20/2024 14:22 /es/ MIRELA MOTA,RN,OCN LUNG CANCER SCREENING NURSE NAVIGATOR 10/20/2024 ADDENDUM STATUS: COMPLETED Respite Care can be provider when dates needed available to enter consult. /flor/ JOSHUA YANEZ RN REGISTERED NURSE Signed: 10/20/2024 14:14 10/20/2024 ADDENDUM STATUS: COMPLETED Images requested for CT Chest 11/2023 and CXR 04/2024, [facility] radiology team notified. /flor/ MIRELA MOTA,RN,OCN LUNG CANCER SCREENING NURSE NAVIGATOR Signed: 10/20/2024 14:58 MIRELA TEJEDA [place] [facility] [facility] Oct 20, 2024 01:47 PM PHYSICIAN SENIOR CLINICAL RESEARCH ASSOCIATE NOTE: LOCAL TITLE: PA NOTE STANDARD TITLE: PHYSICIAN SENIOR CLINICAL RESEARCH ASSOCIATE NOTE DATE OF NOTE: OCT 20, 2024@13:47 ENTRY DATE: OCT 20, 2024@13:47:21 AUTHOR: VALENTÍN AMADOR COSIGNER: URGENCY: STATUS: COMPLETED PA NOTE Has ADDENDA CC/HPI/A/P: 78 year old [...] 5. COPD - Chronic Obstructive Pulmonary Disease ([facility] [id number]) 6. Depression ([facility] [id number]) 7. Deep venous thrombosis of upper extremity Left 8. H/O: rheumatoid arthritis 9. Sjogren syndrome 10. PE - Pulmonary Embolism ([facility] [id number]) SERVICE CONNECTED % - 80 [facility] and [...] Indication: TO PREVENT BLOOD CLOTS 10) Non-VA [id number]/VILANTE [id number] 30D INH 1 INHALATION ACTIVE BY MOUTH [...] ask LCS coordinator to deconflict here vs [place] where they report pulm consult with imaging/ct since an april admission for hypoxia/oxygenation. /flor/ Valentín Amador PA-C STAFF PHYSICIAN SENIOR CLINICAL RESEARCH ASSOCIATE Signed: 10/20/2024 13:52 Receipt Acknowledged By: 10/20/2024 14:13 /es/ JOSHUA YANEZ, RN REGISTERED NURSE 10/20/2024 14:22 /es/ MIRLEA MOTA,RN,OCN LUNG CANCER SCREENING NURSE NAVIGATOR 10/20/2024 ADDENDUM STATUS: COMPLETED Respite Care can be provider when dates needed available to enter consult. /flor/ JOSHUA YANEZ RN REGISTERED NURSE Signed: 10/20/2024 14:14 10/20/2024 ADDENDUM STATUS: COMPLETED LCS Coordinator placed call to [facility] radiology department, was advised CXR completed in April [address] chest completed November 2023. Requested both reports to be faxed to . LCS Coordinator placed a call to [facility] , per office Bonaparte was referred via private insurance from pain management provider at [facility] to the pulmonary team in September 2023. has completed a CT scan with [facility] in November 2023, was seen most recently by Isamar Lokc NP [facility] pulmonary in September [address] of the chest in November 2024. Advised that Bonaparte is enrolled in LCS through [facility] with annual LCS LDCT in January 2023 and January 2024 with plan for imaging in January 2025. Advised that offices should coordinate so that [place] is not being scanned at a frequency that is not clinically indicated. Direct call back number for LCS Coordinator provided for Isamar Lock NP. Per [facility] Pulm medical records are required to be requested via fax request to . Request for clinical notes, PFTs, CT scan reports/chest imaging faxed via [employer] on 10/20/2024 with confirmed receipt. /flor/ MIRELA MOTA,RN,OCN LUNG CANCER SCREENING NURSE NAVIGATOR Signed: 10/20/2024 14:49 Receipt Acknowledged By: 10/20/2024 14:59 /es/ JOSHUA YANEZ RN REGISTERED NURSE 10/22/2024 08:09 /es/ Valentín Amador PA-C STAFF PHYSICIAN SENIOR CLINICAL RESEARCH ASSOCIATE 10/20/2024 ADDENDUM STATUS: COMPLETED Images requested for CT Chest 11/2023 and CXR 04/2024, [facility] radiology team notified. /flor/ MIRELA MOTA,RN,OCN LUNG CANCER SCREENING NURSE NAVIGATOR Signed: 10/20/2024 14:58 10/23/2024 ADDENDUM STATUS: COMPLETED Lcs Coordinator received a phone call from Isamar Davidson NP with [facility] pulmonary who states prior imaging was for post hospital follow up, they will cancel scan scheduled for November and may resume imaging through [facility] program as previously enrolled with next imaging due in January 2025. LCS Coordinator placed a call to . Voicemail left identifying caller as LCS Coordinator, rationale for call briefly explained. Direct call back number for coordinator provided. /flor/ MIRELA MOTA,RN,OCN LUNG CANCER SCREENING NURSE NAVIGATOR Signed: 10/23/2024 15:26 10/24/2024 ADDENDUM STATUS: COMPLETED LCS Coordinator received a call back from [facility], [facility] . Discussed plan to [place] through the [place] LCS Coordinator will reach out to [place] and by phone once images of Chest CT 11/2023 and CXR 04/2024 are received from [place] and reviewed with radiologist to ensure [place] is appropriate follow up time frame. In the interim, [place] was scheduled for LCS LDCT 01/16/2025 at 11:15am. /flor/ MIRELA MOTA,RN,OCN LUNG CANCER SCREENING NURSE NAVIGATOR Signed: 10/24/2024 15:30 VALENTÍN AMADOR [place] [facility] [facility] Oct 20, 2024 01:27 PM ACCOUNTING OF [...] standard clinical care, and in accordance with [facility] policy. Patient information was shared with the PDMP [place]. [facility] in [facility] [...] Pharmacy Refill Daily Dose * Pymt Type PRESS ASSISTANT AND FEEDER 08/22/2024 1 08/21/2024 08/23/2024 Gabapentin 600 Mg Tablet 90.00 90 Ol Buc [id number] [facility] 0/ [place] 08/14/2024 1 08/14/2024 08/15/2024 Triazolam 0.25 Mg Tablet 1.00 1 Do Lei [id number] [facility] (4079) 0/ [place] 08/03/2024 1 08/03/2024 08/07/2024 Hydromorphone 2 Mg Tablet 30.00 30 Ol Buc [id number] [facility] (6243) 0/0 10.00 MME [place] 07/11/2024 1 05/01/2024 07/13/2024 Gabapentin 800 Mg Tablet 90.00 90 Ol Buc [id number] [facility] (4079) 07/14 [place] 05/29/2024 1 05/22/2024 05/30/2024 Hydromorphone 2 Mg Tablet 30.00 30 Ol Buc [id number] [facility] (0777) 0/0 10.00 MME [place] 05/01/2024 1 05/01/2024 05/01/2024 Gabapentin 800 Mg Tablet 90.00 90 Ol Buc [id number] [facility] (4079) 0/3 [place] 04/17/2024 1 04/17/2024 04/21/2024 Gabapentin 600 Mg Tablet 90.00 30 Ol Buc [id number] [facility] (4079) 0/0 Medica /flor/ Valentní Amador PA-C STAFF PHYSICIAN SENIOR CLINICAL RESEARCH ASSOCIATE Signed: 10/20/2024 13:47 VALENTÍN AMADOR [place] [facility] [facility] Oct 20, 2024 01:09 PM PREVENTIVE MEDICINE NURSING NOTE: LOCAL TITLE: CLINICAL REMINDERS/NURSING STANDARD TITLE: PREVENTIVE MEDICINE NURSING NOTE DATE OF NOTE: OCT 20, 2024@13:09 ENTRY DATE: OCT 20, 2024@13:09:21 AUTHOR: HARPAL VILLALBA EXP COSIGNER: URGENCY: STATUS: COMPLETED Suicide Screen: C-SSRS Screening [place] Suicide Severity Rating Scale (C-SSRS) screener 1. [...] LPN Signed: 10/20/2024 13:10 HARPAL VILLALBA CNTRL [facility]
--- OUTSIDE RECORDS SUMMARY | 2024-11-02 17:32 | XMS_ITS | Continuity of Care Document ---
Author Name [facility] Organization [facility] Care Team Providers Care Electronic Equipment Set Up Operator Name Role Phone [facility] Unavailable Unavailable Problems Combined list of problems [...] COPD - Chronic Obstructive Pulmonary Disease (SCT [id number]) Active Condition [facility] Deep venous thrombosis of upper extremity Active Condition Feb 18, 2022 Entered By: MESFIN SAHA Comment: Left [facility] Depression (SCT [id number]) Active Condition [facility] Exposure to potentially hazardous substance Active Condition Oct 07, 2023 Entered By: COL BHARATHI ADAME Comment: ILIANA Screening Snomed Code connected 01/22/23 [facility] H/O: rheumatoid arthritis Active Condition [facility] Hypertension Active Condition [facility] Moderate protein-calorie malnutrition (weight for age 60-74 percent of standard) Active Condition [facility] PE - Pulmonary Embolism (SCT [id number]) Active Condition [facility] Pyoderma gangrenosum Active Condition [facility] Rheumatoid arthritis Active Condition [facility] Sjogren syndrome Active Condition [facility] Venous ulcer Active Condition [facility] Diagnosis: ICD-10-CM M35.00 Sjogren syndrome, unspecified Active Diagnosis [facility] Diagnosis: ICD-10-CM H40.013 Open angle with borderline findings, low risk, bilateral Active Diagnosis [facility] [place] [facility] Diagnosis: ICD-10-CM R52 Pain, unspecified Active Diagnosis [facility] [place] [facility] Diagnosis: ICD-10-CM Z12.2 Encntr screen for malignant neoplasm of respiratory organs Active [facility] Diagnosis: ICD-10-CM Z46.0 Encounter for fit/adjst of spectacles and contact lenses Active Diagnosis [facility] Diagnosis: ICD-10-CM I10 Essential (primary) hypertension [facility] Diagnosis: ICD-10-CM J44.9 Chronic obstructive pulmonary disease, unspecified Active Diagnosis [facility] [place] [facility] Diagnosis: ICD-10-CM F43.10 Post-traumatic stress disorder, unspecified Active Diagnosis [facility] [place] [facility] Diagnosis: ICD-10-CM S91.009A Unspecified open wound, unspecified ankle, initial encounter Active Diagnosis [facility] Medications Combined list of outpatient medications from Department of Defense and Veterans Affairs facilities.Medications provided include 1) outpatient medications from the last 15 months, and 2) patient-reported medications. Medication Details Route Status Patient Instructions Prescription Expires Prescription Number Last Dispense Date Ordering Provider Order Date Order Qty Source ACETAMINOPH EN 500MG TAB TAKE TWO TABLETS BY MOUTH PRN ORAL ACTIVE VALENTÍN SAHA 2022 [facility] ALBUTEROL 90MCG/ACTUA T (CFC-F) INHL,ORAL,8 .5GM DOSE COUNTER INHALE 2 PUFFS BY MOUTH EVERY 6 HOURS NEEDED RESPIR ATORY (INHAL ATION) ACTIVE VALENTÍN SAHA 2022 [facility] CALCIUM CARBONATE TAB TAKE ACTIVE SERGEY MG OR 2018 [place] CHOLECALCIF MELISSA (VIT D3) TAB TAKE EVERY DAY ACTIVE SERGEY MG OR 2018 [place] DULOXETINE HCL 20MG CAP,EC TAKE 1 CAPSULE BY MOUTH AT BEDTIME ORAL ACTIVE VALENTÍN SAHA 2022 [facility] ETANERCEPT 50MG INJ,SOLN INJECT UNDER THE SKIN SUBCUT ANEOUS ACTIVE SERGEY MG OR 2018 [place] FAMOTIDINE TAB TAKE ACTIVE [facility] [place] OR 2019 [place] FLUTICASONE PROPIONATE 50MCG/SPRAY SOLN,NASAL, 16GM INSTILL 2 SPRAYS INTO EACH NOSTRIL ONCE DAILY NASAL ACTIVE MARIA AVALENTÍN Berry 20[facility] GABAPENTIN 300MG CAP TAKE 2 CAPSULES BY MOUTH EVERY EVENING AND TAKE 4 CAPSULES BY MOUTH AT BEDTIME ORAL ACTIVE MARIA AVALENTÍN 2022 [facility] HYDROCHLORO THIAZIDE TAB TAKE EVERY DAY ACTIVE [facility] [place] OR 2019 [place] HYDROMORPHO NE HCL 2MG TAB TAKE ONE TABLET BY MOUTH THREE TIMES DAILY NEEDED ORAL ACTIVE MARIA AVALENTÍN Berry 2022 [facility] IBUPROFEN TAB TAKE PRN ACTIVE MONISERGEY [place]AN OR 2018 [place] METOPROLOL TARTRATE 25MG TAB TAKE ONE TABLET BY MOUTH TWICE DAILY ORAL ACTIVE MARIA AVALENTÍN 2022 [facility] MULTIVITAMI N & MINERALS TAB TAKE EVERY DAY ACTIVE MONISERGEY [place]AN OR 2018 [place] NALOXONE HCL 4MG/SPRAY SOLN,SPRAY, NASAL INSTILL 1 SPRAY ONE NOSTRIL ONE TIME PRN NASAL ACTIVE ALONDRADEBORAHBEBEVALENTÍN 2022 [facility] PREDNISONE (LOOK ALIKE/SOUND ALIKE) TAB TAKE BY MOUTH ORAL ACTIVE SERGEY MG OR 2019 [place] RIVAROXABAN 10MG TAB TAKE ONE TABLET BY MOUTH ONCE DAILY ORAL ACTIVE MARIA AVALENTÍN 2022 [facility] SODIUM CHLORIDE 0.9% (PF) INJ,SYRINGE ,10ML INJECT 1 SYRINGE IV PUSH ONCE DAILY INTRAV ENOUS DISCONT INUED (EDIT) 04/28/2024 [id number] RAMBIDEON DESAIITRI 2023 30 [facility] [place] [facility] SODIUM CHLORIDE 0.9% (PF) INJ,SYRINGE ,10ML INJECT 1 SYRINGE IV PUSH DIRECTED BY PROVIDER INTRAV ENOUS DISCONT INUED (EDIT) 02/18/2024 [id number] CHANGSSLIN OglesbyDAVID 2023 30 [facility] SODIUM CHLORIDE 0.9% (PF) INJ,SYRINGE ,10ML INJECT 1 SYRINGE DIRECTED BY PROVIDER ONCE DAILY NOT APPLIC ABLE 04/30/2024 [id number] 4 BLANKABISSLIN OglesbyDAVID 2023 30 [facility] SODIUM CHLORIDE 0.9% (PF) INJ,SYRINGE ,10ML APPLY 1 SYRINGE TOPICALL Y DIRECTED BY PROVIDER TOPICA L 03/02/2024 [id number] 4 CHANGSSLIN OglesbyDAVID 2023 30 [facility] SODIUM CHLORIDE 0.9% SOLN,IRRG IRRIGATE UDP TOPICALL Y ONCE DAILY TOPICA L DISCONT INUED (EDIT) 08/25/2024 [id number] 5 BLANKABISSLIN Oglesby,DAVID 2024 1000 [facility] SODIUM CHLORIDE 0.9% SOLN,IRRG IRRIGATE UDP TOPICALL Y EVERY OTHER DAY TOPICA L DISCONT INUED (EDIT) 10/01/2023 [id number] 4 CHANGSSLIN OglesbyDAVID 2023 1000 [facility] SODIUM CHLORIDE 0.9% SOLN,IRRG IRRIGATE DIRECTED TOPICALL Y ONCE DAILY TOPICA L 08/31/2024 [id number] 5 RAMBISSOO MendelDAVID 2024 1000 [facility] SODIUM CHLORIDE 0.9% SOLN,IRRG IRRIGATE DIRECTED TOPICALL Y EVERY OTHER DAY TOPICA L 10/03/2023 [id number] 4 BLANKABISSLIN OglesbyDAVID 2023 1000 [facility] UMECLIDINIU M 62.5MCG/YARELY ANTEROL 25MCG/ACTUA T INH,ORAL,30 D INHALE 1 INHALATI ON BY MOUTH ONCE DAILY RESPIR ATORY (INHAL ATION) ACTIVE VALENTÍN SAHA 2022 [facility] UPADACITINI B 15MG 24HR TAB,SA TAKE ONE TABLET BY MOUTH ONCE DAILY ORAL ACTIVE ALONDRAVALENTÍN HARDY 2022 [facility] Allergies, Adverse Reactions, Alerts Combined list of allergies from Department of Defense and Veterans Affairs facilities. It does not include entries that were removed or entered in error. Substance Category Reaction Severity Reaction type Status Date Reported Comments Source HEPARIN Propensity to adverse reactions to drug (finding) Cardiac arrest SEVERE active 3 [facility] Immunizations Combined list of available immunizations from the Department of Defense and Veterans Affairs facilities. Immunization Series Date Given Administered By Site Reaction Lot Number CVX Code Drug Desk Pens Assembler Status Comments Source INFLUENZA, UNSPECIFIED FORMULATION 2023 88 complet ed Booster for Series, HISTORICA L INFORMATI ON - FROM OTHER PROVIDER, [facility] PNEUMOCOCCAL CONJUGATE PCV20, POLYSACCHARID E [id number] CONJUGATE, ADJUVANT, PF 2023 ROXANNA VILLALBA E LEFT DELTO ID [id number] 216 complet ed Booster for Series, [facility] TDAP 2023 ROXANNA VILLALBA LEFT DELTO ID [id number] 115 complet ed Booster for Series, [facility] INFLUENZA, UNSPECIFIED FORMULATION 2022 88 complet ed Booster for Series, HISTORICA L INFORMATI ON - FROM OTHER PROVIDER, [facility] COVID-19 (MODERNA), MRNA, LNP-S, BIVALENT, PF, 50 MCG/0.5 ML OR 25MCG/0.25 ML DOSE 1 2021 229 complet ed HISTORICA L INFORMATI ON - FROM OTHER PROVIDER, [facility] INFLUENZA VACCINE, QUADRIVALENT, ADJUVANTED 2021 205 complet ed [facility] COVID-19 (MODERNA), MRNA, LNP-S, PF, 100 MCG/0.5ML DOSE OR 50 MCG/0.25ML DOSE 3 2020 207 complet ed [facility] [place] [facility] INFLUENZA, UNSPECIFIED FORMULATION 2020 88 complet ed [facility] [place] [facility] [facility] COVID-19 (MODERNA), MRNA, LNP-S, PF, 100 MCG/0.5 ML DOSE 2 2020 207 complet ed MOD; [id number]; 1 [place] COVID-19 (MODERNA), MRNA, LNP-S, PF, 100 MCG/0.5 ML DOSE 1 2020 207 complet ed MOD; [id number]; 1 [place] INFLUENZA, TRIVALENT, ADJUVANTED 2018 NONE 168 complet ed [place] PNEUMOCOCCAL CONJUGATE PCV 13 2017 133 complet ed [facility] PNEUMOCOCCAL POLYSACCHARID E [id number] 2015 33 complet ed [facility] Results Combined list of recent [...] Oct 15, 2023 11:05 AM Reporting Lab: [address] [address] Performing Lab: [address] [address] [facility] LIVER FUNCTION ALBUMIN [MASS/VOLU ME] IN SERUM OR PLASMA 3.8 g/dL 3.5 - 5.0 10/14 Specimen Type: SERUM No comment entered. Ordering Provider: Madelaine SAHA Report Released Date/Time: Oct 15, 2023 11:05 AM Reporting Lab: [facility] [place] [facility] [address] [facility] [address] Performing Lab: [facility] [place] [facility] [address] [facility] [address] [facility] [facility] LIVER FUNCTION ALKALINE PHOSPHATAS E [ENZYMATIC ACTIVITY/V OLUME] IN SERUM OR PLASMA 50 U/L 40 - 150 10/14 Specimen Type: SERUM No comment entered. Ordering Provider: Madelaine SAHA Report Released Date/Time: Oct 15, 2023 11:05 AM Reporting Lab: [facility] [place] [address] [address] Performing Lab: [facility] [place] [address] [address] [facility] [facility] LIVER FUNCTION ASPARTATE AMINOTRANS FERASE [ENZYMATIC ACTIVITY/V OLUME] IN SERUM OR PLASMA 15 U/L 5 - 34 10/14 Specimen Type: SERUM No comment entered. Ordering Provider: Madelaine SAHA Report Released Date/Time: Oct 15, 2023 11:05 AM Reporting Lab: [facility] [place] [facility] [address] [facility] [address] Performing Lab: [facility] [place] [address] [address] [facility] [place] [facility] LIVER FUNCTION ALANINE AMINOTRANS FERASE [ENZYMATIC ACTIVITY/V OLUME] IN SERUM OR PLASMA 26 U/L 10/14 Specimen Type: SERUM No comment entered. Ordering Provider: Madelaine ASHA Report Released Date/Time: Oct 15, 2023 11:05 AM Reporting Lab: [facility] [place] [facility] [address] [facility] [address] Performing Lab: [facility] [place] [address] [address] [facility] [place] [facility] LIVER FUNCTION BILIRUBIN. TOTAL [MASS/VOLU ME] IN SERUM OR PLASMA 0.5 mg/dL 0.2 - 1.2 10/14 Specimen Type: SERUM No comment entered. Ordering Provider: Madelaine SAHA Report Released Date/Time: Oct 15, 2023 11:05 AM Reporting Lab: [facility] [address] [facility] [address] Performing Lab: [facility] [address] [facility] BASIC METABOLI C PANEL (fasting ) UREA NITROGEN [MASS/VOLU ME] IN SERUM OR PLASMA 18 mg/dL 7 - 25 10/14 Specimen Type: SERUM No comment entered. Ordering Provider: Madelaine SAHA Report Released Date/Time: Oct 15, 2023 11:05 AM Reporting Lab: [facility] TRN [facility] [address] Performing Lab: [facility] [address] [facility]ITALRCARRAWAY [facility]ENTERTRN [facility]USE [facility] BASIC METABOLI C PANEL (fasting ) GLUCOSE [MASS/VOLU ME] IN SERUM OR PLASMA 95 mg/dL 65 - 100 10/14 Specimen Type: SERUM No comment entered. Ordering Provider: Madelaine SAHA Report Released Date/Time: Oct 15, 2023 11:05 AM Reporting Lab: [facility] [place] [address] [address] Performing Lab: [place] [facility] [address] [address] [facility] [facility] BASIC METABOLI C PANEL (fasting ) SODIUM [MOLES/VOL UME] IN SERUM OR PLASMA 141 mmol/L 135 - 145 10/14 Specimen Type: SERUM No comment entered. Ordering Provider: Madelaine SAHA Report Released Date/Time: Oct 15, 2023 11:05 AM Reporting Lab: [facility] [address] [address] Performing Lab: [facility] [place] [facility] [address] [facility] [address] [facility] [place] [facility] BASIC METABOLI C PANEL (fasting ) POTASSIUM [MOLES/VOL UME] IN SERUM OR PLASMA 4.2 mmol/L 3.5 - 5.0 10/14 Specimen Type: SERUM No comment entered. Ordering Provider: Madelaine SAHA Report Released Date/Time: Oct 15, 2023 11:05 AM Reporting Lab: [facility] [place] [facility] [address] [facility] [address] Performing Lab: [facility] [place] [address] [address] [facility] [place] [facility] BASIC METABOLI C PANEL (fasting ) CHLORIDE [MOLES/VOL UME] IN SERUM OR PLASMA 106 mmol/L 100 - 110 10/14 Specimen Type: SERUM No comment entered. Ordering Provider: Madelaine SAHA Report Released Date/Time: Oct 15, 2023 11:05 AM Reporting Lab: [facility] [place] [address] [address] Performing Lab: [facility] [place] [address] [address] [facility] BASIC METABOLI C PANEL (fasting ) CARBON DIOXIDE, TOTAL [MOLES/VOL UME] IN SERUM OR PLASMA 25 meq/L 20 - 30 10/14 Specimen Type: SERUM No comment entered. Ordering Provider: Madelaine SAHA Report Released Date/Time: Oct 15, 2023 11:05 AM Reporting Lab: [facility] [place] [address] [address] Performing Lab: [facility] [place] [address] [address] [facility] TRN [facility]USE [facility] BASIC METABOLI C PANEL (fasting ) CREATININE [MASS/VOLU ME] IN SERUM OR PLASMA 1.37 mg/dL 0.50 - 1.40 10/14 Specimen Type: SERUM No comment entered. Ordering Provider: Madelaine SAHA Report Released Date/Time: Oct 15, 2023 11:05 AM Reporting Lab: [facility] [place] [facility] [address] [facility] [address] Performing Lab: [facility] [place] [facility] [address] [facility] [address] [facility] [place] [facility] BASIC METABOLI C PANEL (fasting ) GLOMERULAR FILTRATION RATE/1.73 SQ M.PREDICTE D [VOLUME RATE/AREA] IN SERUM, PLASMA OR BLOOD BY CREATININE -BASED FORMULA (CKD-EPI 2020) 53 mL/min 60 10/14 L Specimen Type: SERUM No comment entered. Ordering Provider: Madelaine SAHA Report Released Date/Time: Oct 15, 2023 11:05 AM Reporting Lab: [facility] [place] [facility] [address] [facility] [address] Performing Lab: [facility] [place] [address] [address] [facility] [place] [facility] LIPID PANEL FASTING CHOLESTERO L [MASS/VOLU ME] IN SERUM OR PLASMA 179 mg/dL 10/14 Specimen Type: SERUM No comment entered. Ordering Provider: Madelaine SAHA Report Released Date/Time: Oct 15, 2023 11:05 AM Reporting Lab: [facility] [place] [address] [address] Performing Lab: [facility] [place] [facility] [address] [facility] [address] [facility] [place] [facility] LIPID PANEL FASTING TRIGLYCERI DE [MASS/VOLU ME] IN SERUM OR PLASMA 123 mg/dL 0 - 150 10/14 Specimen Type: SERUM No comment entered. Ordering Provider: Madelaine SAAH Report Released Date/Time: Oct 15, 2023 11:05 AM Reporting Lab: [facility] [place] [facility] [address] [facility] [address] Performing Lab: [facility] [place] [address] [address] [facility] [place] [facility] LIPID PANEL FASTING CHOLESTERO L IN LDL [MASS/VOLU ME] IN SERUM OR PLASMA BY DIMPLE N 111 mg/dL 0 - 129 10/14 Specimen Type: SERUM No comment entered. Ordering Provider: Madelaine SAHA Report Released Date/Time: Oct 15, 2023 11:05 AM Reporting Lab: [facility] [place] [facility] [address] [facility] [address] Performing Lab: [facility] [place] [facility] [address] [facility] [address] [facility] [place] [facility] LIPID PANEL FASTING CHOLESTERO L.TOTAL/CH OLESTEROL IN HDL [MASS RATIO] IN SERUM OR PLASMA 4.2 10/14 Specimen Type: SERUM No comment entered. Ordering Provider: Madelaine SAHA Report Released Date/Time: Oct 15, 2023 11:05 AM Reporting Lab: [facility] [place] [facility] [address] [facility] [address] Performing Lab: [facility] [place] [facility] [address] [facility] [address] [facility] [place] [facility] LIPID PANEL FASTING CHOLESTERO L IN HDL [MASS/VOLU ME] IN SERUM OR PLASMA 43 mg/dL 40 - 60 10/14 Specimen Type: SERUM No comment entered. Ordering Provider: Madelaine SAHA Report Released Date/Time: Oct 15, 2023 11:05 AM Reporting Lab: [facility] [place] [facility] [address] [facility] [address] Performing Lab: [facility] [place] [facility] [address] [facility] [address] [facility] [place] [facility] IRON & TIBC PANEL IRON BINDING CAPACITY [MASS/VOLU ME] IN SERUM OR PLASMA 338 ug/dL 204 - 475 10/14 Specimen Type: SERUM No comment entered. Ordering Provider: Madelaine SAHA Report Released Date/Time: Oct 15, 2023 11:05 AM Reporting Lab: [facility] [place] [facility] [address] [facility] [address] Performing Lab: [facility] [place] [facility] [address] [facility] [address] [facility] [place] [facility] IRON & TIBC PANEL IRON [MASS/VOLU ME] IN SERUM OR PLASMA 51 ug/dL 40 - 160 10/14 Specimen Type: SERUM No comment entered. Ordering Provider: Madelaine SAHA Report Released Date/Time: Oct 15, 2023 11:05 AM Reporting Lab: [facility] [place] [facility] [address] [facility] [address] Performing Lab: [facility] [place] [facility] [address] [facility] [address] [facility] [place] [facility] IRON & TIBC PANEL IRON/IRON BINDING CAPACITY.T OTAL [MASS RATIO] IN SERUM OR PLASMA 15.1 20.0 - 50.0 10/14 L Specimen Type: SERUM No comment entered. Ordering Provider: Madelaine SAHA Report Released Date/Time: Oct 15, 2023 11:05 AM Reporting Lab: [facility] [place] [facility] [address] [facility] [address] Performing Lab: [facility] [place] [address] [address] [facility] [place] [facility] CBC AND DIFF (AUTO) LEUKOCYTES [#/VOLUME] IN BLOOD BY AUTOMATED COUNT 6.76 10*3/uL 4.50 - 11.00 10/14 Specimen Type: BLOOD No comment entered. Ordering Provider: Madelaine SAHA Report Released Date/Time: Oct 15, 2023 11:05 AM Reporting Lab: [facility] [place] [facility] [address] [facility] [address] Performing Lab: [facility] [place] [facility] [address] [facility] [address] [facility] [place] [facility] CBC AND DIFF (AUTO) ERYTHROCYT ES [#/VOLUME] IN BLOOD BY AUTOMATED COUNT 5.57 10*6/uL 4.23 - 5.66 10/14 Specimen Type: BLOOD No comment entered. Ordering Provider: Madelaine SAHA Report Released Date/Time: Oct 15, 2023 11:05 AM Reporting Lab: [facility] [place] [facility] [address] [facility] [address] Performing Lab: [facility] [place] [facility] [address] [facility] [address] [facility] [place] [facility] CBC AND DIFF (AUTO) HEMOGLOBIN [MASS/VOLU ME] IN BLOOD 14.9 g/dL 12.8 - 17 10/14 Specimen Type: BLOOD No comment entered. Ordering Provider: Madelaine SAHA Report Released Date/Time: Oct 15, 2023 11:05 AM Reporting Lab: [facility] [place] [facility] [address] [facility] [address] Performing Lab: [facility] [place] [facility] [address] [facility] [address] [facility] [place] [facility] CBC AND DIFF (AUTO) HEMATOCRIT [VOLUME FRACTION] OF BLOOD BY AUTOMATED COUNT 47.5 39.2 - 50.4 10/14 Specimen Type: BLOOD No comment entered. Ordering Provider: Madelaine SAHA Report Released Date/Time: Oct 15, 2023 11:05 AM Reporting Lab: [facility] [place] [facility] [address] [facility] [address] Performing Lab: [facility] [place] [facility] [address] [facility] [address] [facility] [place] [facility] CBC AND DIFF (AUTO) MCV [ENTITIC VOLUME] BY AUTOMATED COUNT 85.3 fL 82 - 99 10/14 Specimen Type: BLOOD No comment entered. Ordering Provider: Madelaine SAHA Report Released Date/Time: Oct 15, 2023 11:05 AM Reporting Lab: [facility] [place] [facility] [address] [facility] [address] Performing Lab: [facility] [place] [facility] [address] [facility] [address] [facility] [place] [facility] CBC AND DIFF (AUTO) MCHC [MASS/VOLU ME] BY AUTOMATED COUNT 31.4 g/dL 30.8 - 35.1 10/14 Specimen Type: BLOOD No comment entered. Ordering Provider: Madelaine SAHA Report Released Date/Time: Oct 15, 2023 11:05 AM Reporting Lab: [facility] [place] [address] [address] Performing Lab: [facility] [place] [facility] [address] [facility] [address] [facility] CBC AND DIFF (AUTO) PLATELETS [#/VOLUME] IN BLOOD BY AUTOMATED COUNT 243 10*3/uL 140 - 360 10/14 Specimen Type: BLOOD No comment entered. Ordering Provider: Madelaine SAHA Report Released Date/Time: Oct 15, 2023 11:05 AM Reporting Lab: [facility] [place] [address] [address] Performing Lab: [facility] [place] [address] [address] [facility] [place] [facility] CBC AND DIFF (AUTO) ERYTHROCYT E DISTRIBUTI ON WIDTH [RATIO] BY AUTOMATED COUNT 15.0 12.0 - 16.0 10/14 Specimen Type: BLOOD No comment entered. Ordering Provider: Madelaine SAHA Report Released Date/Time: Oct 15, 2023 11:05 AM Reporting Lab: [facility] [place] [address] [address] Performing Lab: [facility] [place] [address] [address] [facility] CBC AND DIFF (AUTO) MONOCYTES [#/VOLUME] IN BLOOD BY AUTOMATED COUNT 0.49 10*3/uL 0.30 - 1.10 10/14 Specimen Type: BLOOD No comment entered. Ordering Provider: Madelaine SAHA Report Released Date/Time: Oct 15, 2023 11:05 AM Reporting Lab: [facility] [place] [facility] [address] [facility] [address] Performing Lab: [facility] [place] [facility] [address] [facility] [address] [facility] CBC AND DIFF (AUTO) MCH [ENTITIC MASS] BY AUTOMATED COUNT 26.8 pg 26.2 - 32.6 10/14 Specimen Type: BLOOD No comment entered. Ordering Provider: Madelaine SAHA Report Released Date/Time: Oct 15, 2023 11:05 AM Reporting Lab: [facility] [place] [facility] [address] [facility] [address] Performing Lab: [facility] [place] [facility] [address] [facility] [address] [facility] CBC AND DIFF (AUTO) NEUTROPHIL S/100 LEUKOCYTES IN BLOOD BY AUTOMATED COUNT 67.8 43.7 - 75.8 10/14 Specimen Type: BLOOD No comment entered. Ordering Provider: Madelaine SAHA Report Released Date/Time: Oct 15, 2023 11:05 AM Reporting Lab: [facility] [place] [facility] [address] [facility] [address] Performing Lab: [facility] [place] [facility] [address] [facility] [address] [facility] CBC AND DIFF (AUTO) LYMPHOCYTE S/100 LEUKOCYTES IN BLOOD BY AUTOMATED COUNT 21.9 14.0 - 42.3 10/14 Specimen Type: BLOOD No comment entered. Ordering Provider: Madelaine SAHA Report Released Date/Time: Oct 15, 2023 11:05 AM Reporting Lab: [facility] [place] [facility] [address] [facility] [address] Performing Lab: [facility] [place] [facility] [address] [facility] [address] [facility] CBC AND DIFF (AUTO) MONOCYTES/ 100 LEUKOCYTES IN BLOOD BY AUTOMATED COUNT 7.2 5.1 - 13.7 10/14 Specimen Type: BLOOD No comment entered. Ordering Provider: Madelaine SAHA Report Released Date/Time: Oct 15, 2023 11:05 AM Reporting Lab: [facility] [place] [facility] [address] [facility] [address] Performing Lab: [facility] [place] [facility] [address] [facility] [address] [facility] CBC AND DIFF (AUTO) EOSINOPHIL S/100 LEUKOCYTES IN BLOOD BY AUTOMATED COUNT 2.1 0.4 - 6.8 10/14 Specimen Type: BLOOD No comment entered. Ordering Provider: Madelaine SAHA Report Released Date/Time: Oct 15, 2023 11:05 AM Reporting Lab: [facility] [place] [facility] [address] [facility] [address] Performing Lab: [facility] [place] [facility] [address] [facility] [address] [facility] [place] [facility] CBC AND DIFF (AUTO) BASOPHILS/ 100 LEUKOCYTES IN BLOOD BY AUTOMATED COUNT 0.6 0.1 - 2.0 10/14 Specimen Type: BLOOD No comment entered. Ordering Provider: Madelaine SAHA Report Released Date/Time: Oct 15, 2023 11:05 AM Reporting Lab: [facility] [place] [facility] [address] [facility] [address] Performing Lab: [facility] [place] [address] [address] [facility] [place] [facility] CBC AND DIFF (AUTO) NEUTROPHIL S [#/VOLUME] IN BLOOD BY AUTOMATED COUNT 4.58 10*3/uL 2.20 - 7.60 10/14 Specimen Type: BLOOD No comment entered. Ordering Provider: Madelaine SAHA Report Released Date/Time: Oct 15, 2023 11:05 AM Reporting Lab: [facility] [place] [facility] [address] [facility] [address] Performing Lab: [facility] [place] [facility] [address] [facility] [address] [facility] CBC AND DIFF (AUTO) LYMPHOCYTE S [#/VOLUME] IN BLOOD BY AUTOMATED COUNT 1.48 10*3/uL 1.00 - 3.20 10/14 Specimen Type: BLOOD No comment entered. Ordering Provider: Madelaine SAHA Report Released Date/Time: Oct 15, 2023 11:05 AM Reporting Lab: [facility] [place] [facility] [address] [facility] [address] Performing Lab: [facility] [place] [facility] [address] [facility] [address] [facility] CBC AND DIFF (AUTO) EOSINOPHIL S [#/VOLUME] IN BLOOD BY AUTOMATED COUNT 0.14 10*3/uL 0.03 - 0.44 10/14 Specimen Type: BLOOD No comment entered. Ordering Provider: Madelaine SAHA Report Released Date/Time: Oct 15, 2023 11:05 AM Reporting Lab: [facility] [place] [address] [place] [address] Performing Lab: [facility] [place] [facility] [address] [facility] [address] [facility] CBC AND DIFF (AUTO) BASOPHILS [#/VOLUME] IN BLOOD BY AUTOMATED COUNT 0.04 10*3/uL 0.01 - 0.13 10/14 Specimen Type: BLOOD No comment entered. Ordering Provider: Madelaine SAHA Report Released Date/Time: Oct 15, 2023 11:05 AM Reporting Lab: [facility] [place] [facility] [address] [facility] [address] Performing Lab: [facility] [place] [facility] [address] [facility] [address] [facility] CBC AND DIFF (AUTO) IMMATURE GRANULOCYT ES/100 LEUKOCYTES IN BLOOD BY AUTOMATED COUNT 0.4 0.0 - 0.7 10/14 Specimen Type: BLOOD No comment entered. Ordering Provider: Madelaine SAHA Report Released Date/Time: Oct 15, 2023 11:05 AM Reporting Lab: [facility] [place] [facility] [address] [facility] [address] Performing Lab: [facility] [place] [facility] [address] [facility] [address] [facility] [place] [facility] CBC AND DIFF (AUTO) IMMATURE GRANULOCYT ES [#/VOLUME] IN BLOOD 0.03 10*3/uL 0.00 - 0.06 10/14 Specimen Type: BLOOD No comment entered. Ordering Provider: Madelaine SAHA Report Released Date/Time: Oct 15, 2023 11:05 AM Reporting Lab: [facility] [place] [facility] [address] [facility] [address] Performing Lab: [facility] [place] [facility] [address] [facility] [address] [facility] [place] [facility] CBC LEUKOCYTES [#/VOLUME] IN BLOOD BY AUTOMATED COUNT 6.94 10*3/uL 4.50 - 11.00 05/24 Specimen Type: BLOOD No comment entered. Ordering Provider: Madelaine SAHA Report Released Date/Time: Apr 14, 2023 08:29 AM Reporting Lab: [facility] [place] [facility] [address] [facility] [address] Performing Lab: [facility] [place] [facility] [address] [facility] [address] [facility] [place] [facility] CBC ERYTHROCYT ES [#/VOLUME] IN BLOOD BY AUTOMATED COUNT 4.59 10*6/uL 4.23 - 5.66 05/24 Specimen Type: BLOOD No comment entered. Ordering Provider: Madelaine SAHA Report Released Date/Time: Apr 14, 2023 08:29 AM Reporting Lab: [facility] [place] [facility] [address] [facility] [address] Performing Lab: [facility] [place] [facility] [address] [facility] [address] [facility] [place] [facility] CBC HEMOGLOBIN [MASS/VOLU ME] IN BLOOD 12.9 g/dL 12.8 - 17 05/24 Specimen Type: BLOOD No comment entered. Ordering Provider: Madelaine SAHA Report Released Date/Time: Apr 14, 2023 08:29 AM Reporting Lab: [facility] [place] [facility] [address] [facility] [address] Performing Lab: [facility] [place] [facility] [address] [facility] [address] [facility] [place] [facility] CBC HEMATOCRIT [VOLUME FRACTION] OF BLOOD BY AUTOMATED COUNT 40.6 39.2 - 50.4 05/24 Specimen Type: BLOOD No comment entered. Ordering Provider: Madelaine SAHA Report Released Date/Time: Apr 14, 2023 08:29 AM Reporting Lab: [facility] [place] [facility] [address] [facility] [address] Performing Lab: [facility] [place] [facility] [address] [facility] [address] [facility] [place] [facility] CBC MCV [ENTITIC VOLUME] BY AUTOMATED COUNT 88.5 fL 82 - 99 05/24 Specimen Type: BLOOD No comment entered. Ordering Provider: Madelaine SAHA Report Released Date/Time: Apr 14, 2023 08:29 AM Reporting Lab: [facility] [place] [facility] [address] [facility] [address] Performing Lab: [facility] [place] [facility] [address] [facility] [address] [facility] [place] [facility] CBC MCHC [MASS/VOLU ME] BY AUTOMATED COUNT 31.8 g/dL 30.8 - 35.1 05/24 Specimen Type: BLOOD No comment entered. Ordering Provider: Madelaine SAHA Report Released Date/Time: Apr 14, 2023 08:29 AM Reporting Lab: [facility] [place] [facility] [address] [facility] [address] Performing Lab: [facility] [place] [facility] [address] [facility] [address] [facility] [place] [facility] CBC PLATELETS [#/VOLUME] IN BLOOD BY AUTOMATED COUNT 309 10*3/uL 140 - 360 05/24 Specimen Type: BLOOD No comment entered. Ordering Provider: Madelaine SAHA Report Released Date/Time: Apr 14, 2023 08:29 AM Reporting Lab: [facility] [place] [facility] [address] [facility] [address] Performing Lab: [facility] [place] [facility] [address] [facility] [address] [facility] [place] [facility] CBC ERYTHROCYT E DISTRIBUTI ON WIDTH [RATIO] BY AUTOMATED COUNT 14.0 12.0 - 16.0 05/24 Specimen Type: BLOOD No comment entered. Ordering Provider: Madelaine SAHA Report Released Date/Time: Apr 14, 2023 08:29 AM Reporting Lab: [facility] [place] [facility] [address] [facility] [address] Performing Lab: [facility] [place] [facility] [address] [facility] [address] [facility] [place] [facility] CBC MCH [ENTITIC MASS] BY AUTOMATED COUNT 28.1 pg 26.2 - 32.6 05/24 Specimen Type: BLOOD No comment entered. Ordering Provider: Madelaine SAHA Report Released Date/Time: Apr 14, 2023 08:29 AM Reporting Lab: [facility] [place] [address] [address] Performing Lab[facility] [place] [facility] [address] [facility] [address] [facility] [place] [facility] MICROALB UMIN CREATINI NE RATIO PANEL MICROALBUM IN/CREATIN INE [MASS RATIO] IN URINE 21.1 mg/g 0 - 29.9 05/24 Specimen Type: URINE No comment entered. Ordering Provider: Madelaine SAHA Report Released Date/Time: Apr 26, 2023 04:38 PM Reporting Lab: [facility] [place] [facility] [address] [facility] [address] Performing Lab: [facility] [place] [facility] [address] [facility] [address] [facility] [place] [facility] MICROALB UMIN CREATINI NE RATIO PANEL MICROALBUM IN [MASS/VOLU ME] IN URINE 1.9 mg/dL 05/24 Specimen Type: URINE No comment entered. Ordering Provider: Madelaine SAHA Report Released Date/Time: Apr 26, 2023 04:38 PM Reporting Lab: [facility] [place] [facility] [address] [facility] [address] Performing Lab: [facility] [place] [facility] [address] [facility] [address] [facility] [place] [facility] MICROALB UMIN CREATINI NE RATIO PANEL CREATININE [MASS/VOLU ME] IN URINE 89.96 mg/dL 05/24 Specimen Type: URINE No comment entered. Ordering Provider: Madelaine SAHA Report Released Date/Time: Apr 26, 2023 04:38 PM Reporting Lab: [facility] [place] [address] [address] Performing Lab: [facility] [place] [address] [address] [facility] [place] [facility] URINALYS IS COLOR OF URINE Light-Ye llow 05/24 Specimen Type: URINE Comment: If Glucose = >500 and Ketones are positive, please alert the Physician. Ordering Provider: Madelaine SAHA Report Released Date/Time: Apr 26, 2023 04:38 PM Reporting Lab: [facility] [place] [address] [address] Performing Lab: [facility] [place] [address] [address] [facility] [place] [facility] URINALYS IS APPEARANCE OF URINE Clear 05/24 Specimen Type: URINE Comment: If Glucose = >500 and Ketones are positive, please alert the Physician. Ordering Provider: Madelaine SAHA Report Released Date/Time: Apr 26, 2023 04:38 PM Reporting Lab: [facility] [place] [facility] [address] [facility] [address] Performing Lab: [facility] [place] [facility] [address] [facility] [address] [facility] URINALYS IS GLUCOSE [MASS/VOLU ME] IN URINE NEGATIVE mg/dL 05/24 Specimen Type: URINE Comment: If Glucose = >500 and Ketones are positive, please alert the Physician. Ordering Provider: Madelaine SAHA Report Released Date/Time: Apr 26, 2023 04:38 PM Reporting Lab: [facility] [place] [facility] [address] [facility] [address] Performing Lab: [facility] [place] [facility] [address] [facility] [address] [facility] URINALYS IS KETONES [MASS/VOLU ME] IN URINE BY TEST STRIP NEGATIVE mg/dL 05/24 Specimen Type: URINE Comment: If Glucose = >500 and Ketones are positive, please alert the Physician. Ordering Provider: Madelaine SAHA Report Released Date/Time: Apr 26, 2023 04:38 PM Reporting Lab: [facility] [place] [facility] [address] [facility] [address] Performing Lab: [facility] [place] [facility] [address] [facility] [address] [facility] URINALYS IS ERYTHROCYT ES [PRESENCE] IN URINE SEDIMENT BY LIGHT MICROSCOPY NEGATIVE mg/dL 05/24 Specimen Type: URINE Comment: If Glucose = >500 and Ketones are positive, please alert the Physician. Ordering Provider: Madelaine SAHA Report Released Date/Time: Apr 26, 2023 04:38 PM Reporting Lab: [facility] [place] [facility] [address] [facility] [address] Performing Lab: [facility] [place] [facility] [address] [facility] [address] [facility] URINALYS IS PROTEIN [MASS/VOLU ME] IN URINE BY TEST STRIP NEGATIVE mg/dL 05/24 Specimen Type: URINE Comment: If Glucose = >500 and Ketones are positive, please alert the Physician. Ordering Provider: Madelaine SAHA Report Released Date/Time: Apr 26, 2023 04:38 PM Reporting Lab: [facility] [place] [address] [address] Performing Lab: [facility] [address] [address] [facility]TRN [facility] URINALYS IS NITRITE [PRESENCE] IN URINE NEGATIVE mg/dL 05/24 Specimen Type: URINE Comment: If Glucose = >500 and Ketones are positive, please alert the Physician. Ordering Provider: Madelaine SAHA Report Released Date/Time: Apr 26, 2023 04:38 PM Reporting Lab: [facility] [place] [address] [address] Performing Lab: [facility] [place] [address] [address] [facility]TRN [facility] URINALYS IS BILIRUBIN. TOTAL [PRESENCE] IN URINE NEGATIVE mg/dL 05/24 Specimen Type: URINE Comment: If Glucose = >500 and Ketones are positive, please alert the Physician. Ordering Provider: Madelaine SAHA Report Released Date/Time: Apr 26, 2023 04:38 PM Reporting Lab: [facility] [place] [address] [address] Performing Lab: [facility] [place] [address] [address] [facility] [place] [facility] URINALYS IS SPECIFIC GRAVITY OF URINE BY REFRACTOME TRY 1.017 1.016 - 1.022 05/24 Specimen Type: URINE Comment: If Glucose = >500 and Ketones are positive, please alert the Physician. Ordering Provider: Madelaine SAHA Report Released Date/Time: Apr 26, 2023 04:38 PM Reporting Lab: [facility] [place] [address] [address] Performing Lab: [facility] [place] [facility] [address] [facility] [address] [facility] [place] [facility] URINALYS IS PH OF URINE BY TEST STRIP 6.0 5.0 - 9.0 05/24 Specimen Type: URINE Comment: If Glucose = >500 and Ketones are positive, please alert the Physician. Ordering Provider: Madelaine SAHA Report Released Date/Time: Apr 26, 2023 04:38 PM Reporting Lab: [facility] [place] [facility] [address] [facility] [address] Performing Lab: [facility] [place] [facility] [address] [facility] [address] [facility] [place] [facility] URINALYS IS UROBILINOG EN [MASS/VOLU ME] IN URINE BY TEST STRIP <2.0mg/d L <2.0 - 2.0 05/24 Specimen Type: URINE Comment: If Glucose = >500 and Ketones are positive, please alert the Physician. Ordering Provider: Madelaine SAHA Report Released Date/Time: Apr 26, 2023 04:38 PM Reporting Lab: [facility] [place] [facility] [address] [facility] [address] Performing Lab: [facility] [place] [facility] [address] [facility] [address] [facility] [place] [facility] URINALYS IS LEUKOCYTE ESTERASE [PRESENCE] IN URINE BY TEST STRIP NEGATIVE 05/24 Specimen Type: URINE Comment: If Glucose = >500 and Ketones are positive, please alert the Physician. Ordering Provider: Madelaine SAHA Report Released Date/Time: Apr 26, 2023 04:38 PM Reporting Lab: [facility] [place] [facility] [address] [facility] [address] Performing Lab: [facility] [place] [facility] [address] [facility] [address] [facility] [place] [facility] IRON & TIBC PANEL IRON BINDING CAPACITY [MASS/VOLU ME] IN SERUM OR PLASMA 347 ug/dL 204 - 475 05/24 Specimen Type: SERUM No comment entered. Ordering Provider: Madelaine SAHA Report Released Date/Time: Apr 26, 2023 04:38 PM Reporting Lab: [facility] [place] [facility] [address] [facility] [address] Performing Lab: [facility] [place] [facility] [address] [facility] [address] [facility] [place] [facility] IRON & TIBC PANEL IRON [MASS/VOLU ME] IN SERUM OR PLASMA 41 ug/dL 40 - 160 05/24 Specimen Type: SERUM No comment entered. Ordering Provider: Madelaine SAHA Report Released Date/Time: Apr 26, 2023 04:38 PM Reporting Lab: [facility] [place] [address] [address] Performing Lab: [facility] [place] [address] [address] [facility] [place] [facility] IRON & TIBC PANEL IRON/IRON BINDING CAPACITY.T OTAL [MASS RATIO] IN SERUM OR PLASMA 11.8 20.0 - 50.0 05/24 L Specimen Type: SERUM No comment entered. Ordering Provider: Madelaine SAHA Report Released Date/Time: Apr 26, 2023 04:38 PM Reporting Lab: [facility] [place] [address] [address] Performing Lab: [facility] [place] [address] [address] [facility] [place] [facility] BASIC METABOLI C PANEL (fasting ) UREA NITROGEN [MASS/VOLU ME] IN SERUM OR PLASMA 17 mg/dL 7 - 25 05/24 Specimen Type: SERUM No comment entered. Ordering Provider: Madelaine SAHA Report Released Date/Time: Apr 26, 2023 04:38 PM Reporting Lab: [facility] [place] [address] [address] Performing Lab: [facility] [place] [facility] [address] [facility] [address] [facility]TRN [facility] BASIC METABOLI C PANEL (fasting ) GLUCOSE [MASS/VOLU ME] IN SERUM OR PLASMA 95 mg/dL 65 - 100 05/24 Specimen Type: SERUM No comment entered. Ordering Provider: Madelaine SAHA Report Released Date/Time: Apr 26, 2023 04:38 PM Reporting Lab: [facility]PITALRCARRAWAY [facility] CENTERTRN [facility]ENTERUSEM[facility] [address] [facility] [address] Performing Lab: [facility]OSPITALRCARRAWAY METHODIST [facility] CENTERTRN [facility]ENTERUSEM[facility] [address] [facility] [address] [facility] BASIC METABOLI C PANEL (fasting ) SODIUM [MOLES/VOL UME] IN SERUM OR PLASMA 142 mmol/L 135 - 145 05/24 Specimen Type: SERUM No comment entered. Ordering Provider: Madelaine SAHA Report Released Date/Time: Apr 26, 2023 04:38 PM Reporting Lab: [facility]OSPITALRCARRAWAY METHODIST MEDICAL CENTERTRN [facility] [address] [facility] [address] Performing Lab: [facility] HOSPITALRBIBB MEDICAL CENTERN [facility] CENTERUSEM[facility] [address] [facility] [address] [facility] BASIC METABOLI C PANEL (fasting ) POTASSIUM [MOLES/VOL UME] IN SERUM OR PLASMA 4.8 mmol/L 3.5 - 5.0 05/24 Specimen Type: SERUM No comment entered. Ordering Provider: Madelaine SAHA Report Released Date/Time: Apr 26, 2023 04:38 PM Reporting Lab: [facility] HOSPITALRL WSTRN MASSUSEMORGAN [facility] [address] [facility] [address] Performing Lab: [facility] HOSPITALRCARRAWAY [facility] MED[facility] CENTERTRN [facility]ENTERUSEM[facility] [address] [facility] [address] [facility]ERN [facility]ENTERUSE [facility] BASIC METABOLI C PANEL (fasting ) CHLORIDE [MOLES/VOL UME] IN SERUM OR PLASMA 107 mmol/L 100 - 110 05/24 Specimen Type: SERUM No comment entered. Ordering Provider: Madelaine SAHA Report Released Date/Time: Apr 26, 2023 04:38 PM Reporting Lab: [facility] [place] [facility] [address] [facility] [address] Performing Lab: [facility] [address] [facility] [address] [facility] [place] [facility] BASIC METABOLI C PANEL (fasting ) CARBON DIOXIDE, TOTAL [MOLES/VOL UME] IN SERUM OR PLASMA 24 meq/L 20 - 30 05/24 Specimen Type: SERUM No comment entered. Ordering Provider: Madelaine SAHA Report Released Date/Time: Apr 26, 2023 04:38 PM Reporting Lab: [facility] [place] [facility] [address] [facility] [address] Performing Lab: [facility] [address] [facility] BASIC METABOLI C PANEL (fasting ) CREATININE [MASS/VOLU ME] IN SERUM OR PLASMA 1.49 mg/dL 0.50 - 1.40 05/24 H Specimen Type: SERUM No comment entered. Ordering Provider: Madelaine SAHA Report Released Date/Time: Apr 26, 2023 04:38 PM Reporting Lab: [facility] [place] [facility] [address] [facility] [address] Performing Lab: [facility] [address] [address] [place] [facility] BASIC METABOLI C PANEL (fasting ) GLOMERULAR FILTRATION RATE/1.73 SQ M.PREDICTE D [VOLUME RATE/AREA] IN SERUM, PLASMA OR BLOOD BY CREATININE -BASED FORMULA (CKD-EPI 2020) 48 mL/min 60 05/24 L Specimen Type: SERUM No comment entered. Ordering Provider: Madelaine SAHA Report Released Date/Time: Apr 26, 2023 04:38 PM Reporting Lab: [facility] [place] [facility] [address] [facility] [address] Performing Lab: [facility] [address] [address] [facility] [place] [facility] Vital Signs Combined list of inpatient and outpatient Vital Signs from Department of Defense and Veterans Affairs, ranging from 12 months to all on record, depending upon the facility. Vital Sign Value Date Comments Source SYSTOLIC BLOOD PRESSURE 124 10/21/19 25 13:06:41 [facility] [place] [facility] DIASTOLIC BLOOD PRESSURE 78 025 13:06:41 [facility] [place] [facility] PULSE OXIMETRY 92 10/20/2024 13:06:41 [facility] [place] [facility] WEIGHT 196 10/20/2024 13:06:41 [facility] [place] [facility] BMI 32 kg/m2 10/20/2024 13:06:41 [facility] [place] [facility] PAIN 7 10/20/2024 13:06:41 [facility] [place] [facility] TEMPERATURE 98.3 10/20/2024 13:06:41 [facility] [place] [facility] PULSE 80 10/20/2024 13:06:41 [facility] [place] [facility] RESPIRATION 16 10/20/2024 13:06:41 [facility] [place] [facility] Encounters Combined [...] Disposition Source [facility] [place] En[facility] [id number] 07/23 [facility] [place] En[facility] [id number] 08/10 [facility] [place] Q[facility]P OL DIG ASSMT&MGMT 5-10 [id number] Diagnos is: ICD-10- CM S91.009 A Unspeci fied open wound, unspeci fied ankle, initial encount er MAURILIO,KATY GRIFFITHS J 08/16 [facility] [place] [facility] Outpatient Encounter [id number] Diagnos is: ICD-10- CM F43.10 Post-tr aumatic stress disorde r, unspeci fied FEARING,ME YVONNE A 09/20 [facility] [place] [facility] Outpatient Encounter [id number] FEARING,ME CHAEL A 09/20 [facility] [place] [facility] Outpatient Encounter [id number] 10/04 [facility] [place] [facility] OFFICE O/P EST LOW 20 MIN [id number] Diagnos is: ICD-10- CM J44.9 Chronic obstruc tive pulmona ry disease , unspeci fied VALENTÍN SAHA F 10/21 [facility] [place] [facility] [place] [facility] OFF/OP EST MAY X REQ PHY/QHP [id number] Diagnos is: ICD-10- CM I10 Essenti al (primar y) hyperte nsDionna Pierre 10/24 [facility] [place] [facility] [place] [facility] COMPRE OPH EXAM NEW PT 1/> [id number] Diagnos is: ICD-10- CM H40.013 Open angle with borderl ine finding s, low risk, bilater al MARIAHPARVEZ HAMLIN 10/24 [facility] [place] [place] [facility] ECHO EXAM OF EYE THICKNESS [id number] Diagnos is: ICD-10- CM H40.013 Open angle with borderl ine finding s, low risk, bilater al PARVEZ LEMUS 10/24 [facility] FIT SPECTACLES MULTIFOCAL [id number] Diagnos is: ICD-10- CM Z46.0 Encount er for fit/adj st of spectac les and contact lenses PARVEZ LEMUS 10/25 [facility] Out[facility] Encounter [id number] 10/25 [facility] [place] Encounter [id number] 11/22 [facility] [place] Encounter [id number] 11/23 [facility] [place] Encounter [id number] 12/07 [facility] [place] Encounter [id number] 12/09 [facility] [place] Encounter [id number] 12/09 [facility] [place] Encounter [id number] 01/23 [facility] [place] QNHP OL DIG ASSMT&MGMT 5-10 [id number] Diagnos is: ICD-10- CM Z12.2 Encntr screen for maligna nt neoplas m of respira tory organs REBEKAH TEJEDACA L 01/23 [facility] [place] En[facility] [id number] 01/31 [facility] [place] Encounter [id number] 05/11 [facility] [place] [place] Encounter [id number] 05/16 [facility] [place] [place] QNHP OL DIG ASSMT&MGMT 5-10 [id number] 1. Diagnos is: ICD-10- CM R52 Pain, unspeci fied CALLIE,LAURA A 05/26 [facility] [place] En[facility] [id number] [facility] [place] [place] Out[facility] Encounter [id number] 08/09 [facility] [place] OFFICE O/P EST HI 40 MIN [id number] Diagnos is: ICD-10- CM H40.013 Open angle with borderl ine finding s, low risk, bilater al ISABELL BARRY H B 09/07 [facility] FIT SPECTACLES MULTIFOCAL [id number] ISABELL BARRY H B 09/07 [facility] [place] [place] Out[facility] Encounter [id number] 10/19 [facility] [place] [facility] OFFICE O/P EST LOW 20 MIN [id number] Diagnos is: ICD-10- CM M35.00 Sjogren syndrom e, unspeci VALENTÍN Denise 10/20 [facility] [facility] Social History Combined list of available smoking, tobacco, and other social history from Department of Defense and Veterans Affairs facilities. Social History Type Response Date Comment Sourc e Tobacco smoking status NHIS NM-TOBACCO NEVER USED OTHER TYPE 06/01/2024 [facility] History of tobacco use NM-TOBACCO USE FORMER CIGARETTES 06/01/2024 [facility] of [facility] < 15 Y[facility] 01/22/2023 [facility] History of tobacco use NM-TOBACCO FORMER USER 02/17/2022 [facility] History of tobacco [facility] TO < 5 YRS 06/22/2019 [facility] Plan of Care List of future care activities from Department of [facility] facilities. Additional future care activities may be listed in the Assessment and Plan section. Date/Time Care Activity Care Activity Detail Facili ty 01/16/2025 AMBULATORY - NONE AMBULATORY - NONE [facility] Advance Directives List of completed, amended, or rescinded Advance Directives on record at Department of Veterans Affairs facilities. An actual copy of the Directive is not included. Date Advance Directive Provider Source 10/26/2023 ADVANCE DIRECTIVE MARGARITA KRAFT [facility]
--- OUTSIDE RECORDS SUMMARY | 2024-11-02 17:32 | XMS_ITS | Encounter Summary ---
Author Name [facility] [place] [facility] [place] Address [address] [place] [address] Care Team Providers Care Bioinformatics Research Technician Name Role Phone LYDIA MG Primary Care [...] Name Patient's Relationship to Policy [place] [facility] ([facility]) Jul 12, 2023 [id number] [phone] [place] PATIENT AETNA [facility] ([facility]) MEDICARE ADVANTAGE MCR ([facility]) Jul 12, 2023 [id number] [phone] [place] PATIENT AETNA [facility] (WNR) MEDICARE [facility] ([facility]) Jul 12, 2019 [id number] [place] PAT[facility]ANT[facility] MCR (WNR) Jul 12, 2018 [id number] [phone] [facility] [facility]IENT [place] BCBS MCR (WNR) MEDICARE ADVANTAGE MCR (WNR) Sep 09, 2017 [id number] [facility] [place] PATIENT [employer]IRE BLUE CROSS MCR ([place]NR) MEDICARE ADVANTAGE MCR (WNR) Jul 12, 2017 [id number] [place] PATIENT Selected Encounter This section includes the information on record at [place] for the Encounter. Date/Time Encounter Type Encounter [...] bilateral MERHAR,TR B [facility] [place] [facility] Sep 07, 2024 05:00 PM SECONDARY Presence of intraocular lens MERHAR,TR B [facility] [place] [facility] Sep 07, 2024 05:00 PM SECONDARY Regular astigmatism, bilateral MERHAR,TR B [facility] [place] [facility] Plan of Treatment: Future Appointments (+ [...] 20 appointments. The data comes from all [place] treatment facilities. Appointment Date/Time Appointment Type Appointme nt Facility Name Oct 20, 2024 01:30 PM AMBULATORY - MEDICINE [place] [facility] [facility] Jan 16, 2025 11:15 AM AMBULATORY - NONE [place] [facility] [place] [facility] Active, Pending, and Scheduled Orders This section includes a listing of several types of active, pending, and scheduled orders, including clinic medications orders, diagnostic test orders, procedure orders and consult orders; where the start date of the order is 45 days before the date of the Encounter or 45 days after the date of theEncounter. The data comes from all [place] treatment facilities. Test Date/Time Test Type Test Details Facility Name Oct 20, 2024 01:45 PM Consult Order COMMUNITY CARE-WOUND Cons Teacher Vocational Training's Choice [facility] Social History: Smoking Status (Most current) and Tobacco Use (All prior to encounter date) This section includes the most current, and the historical, smoking and tobacco- related health factors from the [place] facility where the Encounter took place. Current Smoking Status This section includes the most current smoking, or tobacco-related health factor, from the [place] facility where the Encounter took place. Date/Time Current Smoking Status Comment Facil ity Jun 01, 2024 10:57 AM VA-TOBACCO USE FOR AKANKSHA CIGARETTES [facility] Tobacco Use History This section includes a history of the smoking, or tobacco-related health factors, that were collected on or before the date of the Encounter. The data comes from the [place] facility where the Encounter took place. Date/Time Smoking Status/Tobacco Use Comment F acility Jun 01, 2024 10:57 AM VA-TOBACCO [facility]SHA [facility] Jan 22, 2023 01:30 PM VA-TOBACCO [facility] Jan 22, 2023 01:30 PM VA-TOBACCO QUIT 5 TO < 15 YRS [facility] Feb 17, 2022 04:37 PM [facility] Feb 17, 2022 04:37 PM VA-TOBACCO QUIT 1 TO < 5 YRS [facility] Advance Directives: All historical and current Section Date Range: From patient's date of to the date document was created. This section includes ALL of a patient's completed or amended [place] Advance and Rescinded Directives. The entries below indicate that a directive exists for the patient, but an actual copy is not included with this document. The data comes from all [place] facilities. Date Advance Directives Provider Source Oct 26, 2023 ADVANCE DIRECTIVE MARGARITA KRAFT [place] [facility] [place] [facility] Encounter Notes: All associated encounter notes [...] pressure. He was told to wear them twist tester but he sees pretty good without them [...] Description Z77.29 Exposure to potentially hazardous substance ([facility] [id number]) E44.0 Moderate protein-calorie malnutrition (weight for age 60-74 percent of standard) ([facility] [id number]) R52. Pain ([facility] [id number]) I26.99 Acute pulmonary embolism ([facility] [id number]) J44.9 COPD - Chronic Obstructive Pulmonary Disease ([facility] [id number]) F32.A Depression ([facility] [id number]) I82.629 Deep venous thrombosis of upper extremity ([facility] [id number]) Z87.39 H/O: rheumatoid arthritis ([facility] [id number]) M35.00 Sjogren syndrome ([facility] 52154415) I26.99 PE - Pulmonary Embolism ([facility] [id number]) Other: SYSTEMIC MEDICATIONS/OCULAR MEDICATIONS: Active and Recently [...] Indication: TO PREVENT BLOOD CLOTS 10) Non-VA GCXBBONHALMC37.5/VILANTEROL2 5MCG 30D INH 1 INHALATION ACTIVE BY [...] of active outpatient prescriptions dispensed from this [place] (local) and dispensed from another [place] or [facility] facility (remote) as well as inpatient [...] list may not be complete. Please check JLSkubana. Allergies/ADRs (Tool #5) FACILITY ALLERGY/ADR -------- [place] [facility] [facility] - NO KNOWN ALLERGIES [facility] ([facility] INCLUDED IN THIS LIST: Alphabetical list of active outpatient prescriptions dispensed from this [place] (local) and dispensed from another [place] or [facility] facility (remote) as well as inpatient orders (local pending and active), local clinic medications, locally documented non-VA medications, and local prescriptions that have or been discontinued in the past 90 days. Non-VA Meds Last Documented On: Jan 22, 2023 NOTE The display of VA prescriptions dispensed from another [place] or [facility] facility (remote) is limited to active outpatient prescription entries matched to National Drug File at the originating site and may not include some items such as investigational drugs, compounds, etc. NOT INCLUDED IN THIS LIST: Medications self-entered by the patient into personal health records (i.e. [employer]) are NOT included in this list. Non-VA medications documented outside this VA, remote inpatient orders (regardless of status) and [...] Discontinued) IRRIGATE UDP TOPICALLY ONCE DAILY Rx# [id number] Last Released: Qty/Days Supply: Rx Expiration Date: 08/25/24 Refills Remainin OUTPT SODIUM CHLORIDE 0.9% IRRG SOLN (Status = ) IRRIGATE DIRECTED TOPICALLY ONCE DAILY Rx# [id number] Last Released: 08/01/24 Qty/Days Supply: Rx Expiration Date: 08/31/24 Refills Remainin Non-VA MHIHZUWZXHKZ68.5/VILANTEROL2 5MCG 30D INH SLDVUUSXJNHV57.5/VILANTEROL2 5MCG 30D INH INHALE 1 INHALATION BY MOUTH ONCE DAILY Non-VA UPADACITINIB 15MG 24HR SA TAB TAKE ONE TABLET BY MOUTH ONCE DAILY Medication prescribed by Non-VA provider. SUPPLIES OUTPT BANDAGE,GAUZE 4.5IN X 4.1YD STERILE (Status = ) USE 2 BANDAGES PER DAY TOPICALLY ONCE DAILY Rx# [id number] Last Released: 05/23/24 Qty/Days Supply: 60 Rx Expiration Date: 06/16/24 Refills Remainin OUTPT DEPEND UNDERWEAR,MAXIMUM,MEN LARGE (Status = Active) USE 1 BRIEF DIRECTED TWICE DAILY Rx# [id number] Last Released: 08/03/24 Qty/Days Supply: Rx Expiration Date: 10/22/24 Refills Remainin Indication: INCONTINENCE OUTPT DRESS,KERRAMAX CARE 4IN X 9IN (Status = ) APPLY 1 DRESSING TOPICALLY ONCE DAILY DIRECTED Rx# [id number] Last Released: 05/30/24 Qty/Days Supply: Rx Expiration Date: 06/16/24 Refills Remainin OUTPT DRESSING NON-ADHERE OIL/EMULSION [id number] (Status = ) APPLY 1 DRESSING TOPICALLY ONCE DAILY Rx# [id number] Last Released: 05/23/24 Qty/Days Supply: Rx Expiration Date: 06/16/24 Refills Remainin OUTPT DRESSING,ALGINATE/CMC 4IN X 4IN (Status = Active) APPLY 1 DRESSING TOPICALLY EVERY OTHER DAY Rx# [id number] Last Released: 08/15/24 Qty/Days Supply: Rx Expiration Date: 09/08/24 Refills Remainin OUTPT DRESSING,HYDRALOCK SA 6IN X 10IN #[id number] (Status = ) APPLY 1 DRESSING TOPICALLY TWICE DAILY FOR WOUND CARE Rx# [id number] Last Released: 08/23/23 Qty/Days Supply: Rx Expiration Date: 08/17/24 Refills Remainin Indication: FOR WOUND CARE OUTPT DRESSING,RESTORE 6IN X 8IN H#[id number] (Status = ) APPLY 1 DRESSING TOPICALLY ONCE DAILY Rx# [id number] Last Released: Qt Supply: Rx Expiration Date: 06/16/24 Refills Remainin OUTPT DRESSING,RESTORE,CA ALGIN 2X2IN H#[id number] (Status = Discontinued) APPLY 1 DRESSING ONCE DAILY Rx# [id number] Last Released: Qt Supply: Rx Expiration Date: 08/25/24 Refills Remainin OUTPT GAUZE PAD 4IN X 4IN NONSTERILE (Status = ) USE 1 SPONGE TOPICALLY 4 TIMES ONCE DAILY Rx# [id number] Last Released: 05/23/24 Qty/Days Supply: Rx Expiration Date: 06/22/24 Refills Remainin OUTPT GAUZE PAD 4IN X 4IN NONSTERILE (Status = ) APPLY GAUZE(S) TOPICALLY FOUR TIMES A DAY Rx# [id number] Last Released: 08/01/24 Qty/Days Supply: Rx Expiration Date: 08/25/24 Refills Remainin OUTPT TAPE,PLASTIC 1IN X 10YD TRANSPORE (Status = ) USE 1 PIECE TOPICALLY ONCE DAILY FOR WOUND CARE Rx# [id number] Last Released: 05/24/24 Qty/Days Supply: 08/10 Rx Expiration Date: 06/16/24 Refills Remainin /flor/ TR BARRY OD Letterpress Printing Machinist Signed: 09/07/2024 17:01 TR BARRY [facility]
--- OUTSIDE RECORDS SUMMARY | 2024-11-02 17:32 | XMS_ITS | Clinical Summary ---
Author Organization [facility] Facility Address [address] [place] [address] Care Team Providers Care Urban Planning Teacher Name Role Phone Kia Stroud MD Primary Care Provider [phone] Social History Tobacco Use Types Packs/Day Years Used Date Smoking Tobacco: Never Assessed Sex and Gender Information Value Date Recorded Sex Assigned at Not on file Legal Sex Male 10:48 AM EDT Gender Identity Not on file Sexual Orientation Not on file Plan of Treatment Health Maintenance Due Date Last Done Comments Pneumococcal Vaccine: 50+ Ye ars (1 - PCV) 11/06/1995 Influenza Vaccine (Season Ended) 2025 Hepatitis B Vaccine Aged Out No longe r eligible based on patient's age to complete this topic Insurance [employer] Medicare Aena Medicare Care Teams Urban Planning Teacher Relationship Specialty Start Date End Date Kia Stroud MD [facility] [address] [place], [place] PCP - General Internal Medicine 12/04/21
--- OUTSIDE RECORDS SUMMARY | 2024-11-02 17:32 | XMS_ITS | Encounter Summary ---
Author Name [facility] [facility] [place] [facility] [facility] [place] Address [address] [place] [id number] Care Team Providers Care Personal Financial Planner Name Role Phone LYDIA MG Primary Care [...] Name Patient's Relationship to Policy [place] AETNA [facility] ([facility]) MEDICARE [facility] ([facility]) Jul 12, 2023 [id number] [phone] [place] PATIENT AETNA [facility] ([facility]) MEDICARE [facility] ([facility]) Jul 12, 2023 [id number] [phone] [place] PATIENT AETNA [facility] ([facility]) MEDICARE [facility] ([facility]) Jul 12, 2019 [id number] [phone] [place] PATIENT AETNA [facility] ([facility]) MEDICARE ADVANTAGE MCR (WNR) Jul 12, 2018 [id number] [phone] [place] HARMONY PATIENT [place] [employer] MCR (WNR) MEDICARE ADVANTAGE MCR (WNR) Sep 09, 2017 [id number] [place] SIMÓNIAM PATIENT [place] [employer]OSS MCR (WNR) MEDICARE ADVANTAGE MCR (WNR) Jul 12, 2017 [id number] [place] HÉCTOR PATIENT Selected Encounter This section includes the information on record at [place] for the Encounter. Date/Time Encounter Type Encounter Description Reason Provider Source Jan 24, 2024 01:55 PM QNHP OL DIG ASSMT&MGMT 5-10 PULMONARY/CHEST ICD-10-CM Z12.2 Encntr screen for malignant neoplasm of respiratory organs NEFTALI TEJEDA [facility] Encounter Template Text not used by [place] Assessments - Encounter Diagnoses This section includes the primary and secondary diagnoses documented for the Encounter. Date/Time Primary/Secondary Diagnosis Diagnosis Name Provider Source Jan 24, 2024 02:07 PM PRIMARY Encntr screen for malignant neoplasm of respiratory organs NEFTALI TEJEDA [facility] Plan of Treatment: Future Appointments (+ 6 months) and Future Tests (+/- 45 days) The Plan of Treatment section includes future care activities for the patient from all [place] treatmentfacilities. This section includes future appointments and [...] 28, 2024 11:00 AM AMBULATORY - MEDICINE [facility] Social History: Smoking Status (Most current) [...] [place]-TOBACCO QUIT 5 TO < 15 YRS [facility] Tobacco Use History This section includes a history of the smoking, or tobacco-related health factors, that were collected on or before the date of the Encounter. The data comes from the [place] facility where the Encounter took place. Date/Time Smoking Status/Tobacco Use Comment F acility Jan 22, 2023 01:30 PM [place]-TOBAC[place] QUIT 5 TO < 15 YRS [facility] Feb 17, 2022 04:37 PM VA-TOBACCO FORMER USER [place] [facility] Feb 17, 2022 04:37 PM [place]-TOBACCO QUIT 1 TO < 5 YRS [facility] Advance Directives: All historical and current Section [...] Oct 26, 2023 ADVANCE DIRECTIVE MARGARITA KRAFT [facility] Radiology Reports: +/- 30 days of the [...] the Encounter. The data comes from all [place] treatment facilities. Date/Time Radiology Report Provider Source Jan 24, 2024 10:28 AM LDCT LUNG CANCER SCREENING: VALENTÍN GIPSON [id number] -[id number] M Exm Date: JAN 24, 2024@10:28 Req Phys: VALENTÍN AMADOR Loc: ZZCWM/NO/LCS ADMIN (Req'g Loc) Img Loc: NHM/CT Service: Unknown [facility] , (Case 17 COMPLETE) LDCT LUNG CANCER SCREENING (CT Detailed) CPT:30913 Reason for Study: LUNG CANCER SCREENING Clinical History: 100TPY QUIT SMOKING 2015 BASELINE LCS LDCT ON 01/22/2023: LR 1(S): NO SUSPICIOUS PULMONARY NODULES Report Status: Verified Date Reported: JAN 24, 2024 Date Verified: JAN 24, 2024 Director Network Development E-Sig:/ES/BRUCE CABRAL JR Report: Study: Lung cancer [...] reviewed. Secondary computer-aided detection with post-processing from [employer] is used. The lack of intravenous contrast [...] Primary Interpreting Staff: BRUCE CABRAL JR, Radiologist (Director Network Development) /BRUCE SCHERER JR [facility] Encounter Notes: All associated encounter notes This [...] care provider know. You can also call [phone] ( ) or visit [email or web address]. Please contact us with questions or concerns about lung cancer screening. Sincerely, Mirela MOTA, RN, OCN Lung Cancer Screening Nurse Enclosures: brochure entitled, My Lung Cancer Screening Did Not Show Lung Cancer /es/ MIRELA MOTA,RN,OCN LUNG CANCER SCREENING NURSE NAVIGATOR Signed: 01/24/2024 14:09 MIRELA TEJEDA [place] [facility] Jan 24, 2024 01:55 PM PREVENTIVE MEDICINE [...] by telephone. Comment: Call placed to the [facility]. Mendez with '[facility], Communication authorization verified and on file. Results of LC SLDCT reviewed, specifically that no pulmonary nodules or masses were seen per radiology report. Education provided. Importance of and rationale for continued surveillance with LDCT at an annual interval discussed. [facility] verbalized good understanding and agreement with this plan. [facility] expressed appreciation for the time spent and education provided. /flor/ MIRELA MOTA,RN,OCN LUNG CANCER SCREENING NURSE NAVIGATOR Signed: 01/24/2024 14:08 Receipt Acknowledged By: 01/24/2024 14:44 /es/ JOSHUA YANEZ, RN REGISTERED NURSE 01/25/2024 09:37 /es/ HARPAL VILLALBA LPN 01/25/2024 07:30 /es/ Valentín Amador PA-C STAFF PHYSICIAN GLOVE OPERATOR MIRELA TEJEDA [facility]
== END 2024-11-02 15:56 | disposition home or self-care (01) ==
LOC: HO.HCS 14:48
PROVIDERS: PCP Internal Medicine; Visit Provider Nurse Practitioner Family
DX: I10 Essential (primary) hypertension (principal); I26.09 Other pulmonary embolism with acute cor pulmonale; I46.9 Cardiac arrest, cause unspecified; I47.10 Supraventricular tachycardia, unspecified; I77.810 Thoracic aortic ectasia
CPT/HCPCS: 99214; G2211

== ENCOUNTER → 2024-11-02 14:48 | Outpatient (BNVA) | payer MEDICARE, SELFPAY | PROVIDERS: PCP Internal Medicine; Visit Provider Nurse Practitioner Family | DX: I10 Essential (primary) hypertension (principal); I26.09 Other pulmonary embolism with acute cor pulmonale; I47.10 Supraventricular tachycardia, unspecified; I77.810 Thoracic aortic ectasia; J44.9 Chronic obstructive pulmonary disease, unspecified; Z86.74 Personal history of sudden cardiac arrest; Z99.81 Dependence on supplemental oxygen | CPT/HCPCS: 99212 ==

== ENCOUNTER 2024-11-27 11:01 | Outpatient (AMB) | payer MEDICARE, SELFPAY ==
--- NOTE | 2024-11-27 11:17 | MHC.OFFVIS ---
Vital Signs 11/27/24 11:18 Height 5 ft 6 in Weight 190 lb BMI 30.7 BP 117/89 Blood Pressure Location Rt brachial Position Sitting Pulse 78 Pulse Source Pulse Oximeter Pulse Oximetry (%) 90 L Oxygen Delivery Method Room Air Intake Visit Reasons: Pill Count Pie Bottomer Required: No Allergies heparin (porcine) Allergy (Severe, Verified 11/27/24 11:17) HIT Medication List - Last Reconciled 11/27/24 by Caitlin Multani, POST PARTUM NURSE acetaminophen (Tylenol Extra Strength) 1,000 mg PO Q6H PRN albuterol sulfate 90 mcg/actuation 2 puffs inhalation Q6H PRN amlodipine 2.5 mg PO DAILY amoxicillin mg PO duloxetine 20 mg PO BEDTIME fluticasone propionate 50 mcg/actuation (Flonase Allergy Relief) 2 sprays intranasal DAILY PRN wyllcajctyt-mvzedlhje-nbquirkr 100-62.5-25 mcg (Trelegy Ellipta) 1 inh inhalation DAILY gabapentin 600 mg PO BID 30 days Lactobac. rhamnosus GG-inulin 20 billion cell -200 mg (Culturelle Ultimate) 1 cap PO DAILY 2 weeks metoprolol succinate ER 50 mg PO DAILY miscellaneous medical supply As directed naloxone 4 mg/actuation (Narcan) 4 mg intranasal Q2M PRN prednisone 7.5 mg PO DAILY HPI Comments Details: Patient presents today for a pill count. Patient is supposed to have #0 pills, in his possession has #30 pills. Patient takes hydromorphine mostly during the wound care and dressing changes in clinic and at home. Patient reports adequate analgesia with current medication regime and takes hydromorphine only during moderate-severe pain during dressing changes. He reports decreased pain with instep on left side and some improvement and slight closure of the wound as noted below. He continues to take gabapentin, duloxetine and Tylenol. Patient continues to regularly follow up with Wound care center and Dermatology providers. Denies any fever, chills, weight loss, bleeding, weakness, dizziness, shortness of breaths, constipation, nausea, sedation, urinary retention or abdominal pain. Patient reports he uses O2 at night. 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 Acute pulmonary embolism with acute cor pulmonale Acute pulmonary embolism Cardiac arrest CKD (chronic kidney disease) stage 3, GFR 30-59 ml/min Sjogren's disease Leg pain, bilateral Elevated serum creatinine COPD (chronic obstructive pulmonary disease) HTN (hypertension) Rheumatoid arthritis Chronic ulcer of leg Surgical History History of ankle surgery History of hernia repair History of left knee replacement Family History Sister Breast cancer Father Aneurysm Mother Angina at rest Other No family history of coronary artery disease Social History Household Members: Spouse Housing: House Do you presently have visiting nurse or other home services: No Alcohol intake: current Alcohol intake frequency: holidays/special occasions only Comment: restraints Patient Tobacco Use Status: Former Tobacco user Tobacco use type: Cigarette Cigarette Packs Per Day: 1 Years Smoked: quit + years e-Cigarette/Vaping Use: Never Used Second Hand Smoke Exposure: No Advance Directives Date on File: 12/23/21 service: Yes Current occupational status: retired Cognitive needs: Yes (cane) Hearing needs: No Vision needs: Yes (Pt wear glasses. ) Review of Systems Const All systems reviewed & are unremarkable except as noted in HPI and below Physical Exam Vital Signs: Last Vital Signs Pulse 78 11/27/24 11:18 BP 117/89 11/27/24 11:18 Pulse Ox 90 L 11/27/24 11:18 Oxygen Delivery Method Room Air 11/27/24 11:18 BMI result Body Mass Index 30.7 General: Appears afebrile. No acute distress. Alert and oriented. Mood and affect appropriate. Follows and participates in conversation appropriately. Respiratory effort is unlabored. No cough. Sitting comfortably in the wheelchair. Left lower leg with dressing, dry and intact. Resp Effort & Inspection: normal respiratory effort, able to speak in complete sentences, no cough, no respiratory distress and No symmetric chest movement GI Inspection: Yes normal to inspection Palpation (GI): Soft to palpation, nontender and no guarding Extrem Other: Psych Appearance: grossly normal and well kempt Mental Status: mental status grossly normal Speech and movement: Normal speech and movement present and Clear speech present Affect: normal affect Attitude: cooperative Thought process: Normal thought process present Thought content: Normal thought content present, suicidality (none), no hallucinations and No Depressive thoughts present Insight: Good insight present (Psych) Judgement: Good judgement present (Psych) Results Reviewed Results Reviewed: Assessment & Plan Assessment & Plan (1) Chronic pain of left lower extremity: Code(s): M79.605 - Pain in left leg; G89.29 - Other chronic pain Category: Medical (2) Peripheral neuropathy: Code(s): G62.9 - Polyneuropathy, unspecified Category: Medical (3) Non-healing wound of left lower extremity: Code(s): S81.802A - Unspecified open wound, left lower leg, initial encounter Category: Medical (4) Pyoderma gangrenosum: Code(s): L88 - Pyoderma gangrenosum Category: Medical (5) Chronic, continuous use of opioids: Code(s): F11.90 - Opioid use, unspecified, uncomplicated Category: Medical Plan Patient has shown accountability for his medication regimen and the pill count was accurate. There is no evidence of misuse, abuse or diversion at this time. MassPat reviewed. Will hold off script for hydromorphine 2 mg BID prn due to surplus in pill count today, he takes it for wound care/dressing changes only. Continue duloxetine, gabapentin and Tylenol as needed. Follow up with [facility]ound and Dermatology Centers as scheduled. All questions were answered and the patient is in agreement with the plan. Follow up in 5 weeks for a pill count or sooner if needed. Coding Level of Care Code Est Pt Level 3 (73757) Complex EM visit Add On G2211 Diagnoses Chronic pain of left lower extremity M79.605; G89.29 Peripheral neuropathy G62.9 Non-healing wound of left lower extremity S81.802A Pyoderma gangrenosum L88 Chronic, continuous use of opioids F11.90
[2024-11-27 11:18] VITALS: BP 117/89; PULSE 78; O2SAT 90; BMI 30.7
--- OUTSIDE RECORDS SUMMARY | 2024-11-27 11:50 | XMS_ITS | Clinical Summary ---
Author Organization [facility] Facility Address [address] [place] [address] Care Team Providers Care Hard Hat Diver Name Role Phone Kia Stroud MD Primary Care Provider [phone] Social History Tobacco Use Types Packs/Day Years [...] Insurance [employer] Medicare Aena Medicare Care Teams Hard Hat Diver Relationship Specialty Start Date End Date Kia Stroud MD [facility] [address] [place], [place] PCP - General Internal Medicine 12/04/21
--- OUTSIDE RECORDS SUMMARY | 2024-11-27 11:50 | XMS_ITS | Encounter Summary ---
Author Name [facility] [facility] [place] Address [address] [place] [id number] Care Team Providers Care Cable Television Program Director Name Role Phone LYDIA MG Primary Care [...] Holland's Name Patient's Relationship to Policy Holland [facility] (WNR) MEDICARE ADVANTAGE MCR ([facility]) Jul 12, 2023 [id number] [phone] [place],W[place] LLIAM PATIENT AETNA [facility] ([facility]) MEDICARE ADVANTAGE MCR ([facility]) Jul 12, 2023 [id number] [phone] QUEENIE,WI LLIAM PATIENT [facility]NA [facility] (WNR) MEDICARE ADVANTAGE MCR ([facility]) Jul 12, 2019 [id number] QUEENIE,WI LLIAM PATIENT [facility] (WNR) MEDICARE ADVANTAGE MCR (WNR) Jul 12, 2018 [id number] [phone] QUEENIEAR SIMÓNIAM PATIENT EMPIRE [employer] MCR (WNR) MEDICARE [facility] (WNR) Sep 09, 2017 [id number] [phone] [facility] EMPIRE BLUE CROSS [facility] (WNR) MEDICARE [facility] (WNR) Jul 12, 2017 [id number] QUEENIEAR SIMÓNIAM PATIENT Selected Encounter This section includes the information on record at [place] for the Encounter. Date/Time Encounter Type Encounter Description Reason Provider Source Oct 20, 2024 01:30 PM OFFICE O/P EST LOW 20 MIN PRIMARY CARE/MEDICINE ICD-10-CM M35.00 Sjogren syndrome, unspecified VANWAGNER,WILL LAURA F IHE Encounter Template Text not used by [place] Assessments - Encounter Diagnoses This section includes the primary and secondary diagnoses documented for the Encounter. Date/Time Primary/Secondary Diagnosis Diagnosis Name Provider Source Oct 20, 2024 01:52 PM PRIMARY Sjogren syndrome, unspecified VANWAGNER,WILL LAURA F [facility] [place] [facility] Oct 20, 2024 01:52 PM SECONDARY Acute embolism and thrombosis of deep vn unsp up extrem VANWAGNER,WILL LAURA F [facility] [place] [facility] Oct 20, 2024 01:52 PM SECONDARY Chronic obstructive pulmonary disease, unspecified VANWAGNER,WILL LAURA F [facility] [place] [facility] Oct 20, 2024 01:52 PM SECONDARY Pain, unspecified VANWAGNER,WILL LAURA F [facility] [place] [facility] Plan of Treatment: Future Appointments (+ 6 months) and Future Tests (+/- 45 days) The Plan of Treatment section includes future care activities for the patient from all [place] treatmentfacilities. This section includes future appointments and future orders which are active, pending or scheduled. Future Appointments This section includes appointments that were scheduled to occur 6 months from the date of the Encounter, up to a maximum of 20 appointments. The data comes from all [place] treatment facilities. Appointment Date/Time Appointment Type Appointme nt Facility Name November 29, 2024 03:00 PM AMBULATORY - MEDICINE LA C NTRL [facility] [place] [facility] Jan 16, 2025 11:15 AM AMBULATORY - NONE [facility] [place] [facility] Active, Pending, and Scheduled Orders This section includes a listing of several types of active, pending, and scheduled orders, including clinic medications orders, diagnostic test orders, procedure orders and consult orders; where the start date of the order is 45 days before the date of the Encounter or 45 days after the date of theEncounter. The data comes from all [place] treatment facilities. Test Date/Time Test Type Test Details Facility Name Oct 20, 2024 01:45 PM Consult Order COMMUNITY CARE-WOUND Cons Dulite Machine Bluer's Choice [facility] Vital Signs: All taken on the encounter date This section contains inpatient and outpatient Vital Signs collected on the date of the Encounter. Date/Time Temperature Pulse Blood Pressure Respiratory Rate SP02 Pain Height Weight Body Mass Index Source Oct 20, 2024 01:06 PM 98.3 80 124/78 16 92 7 196 32 [facility] Social History: Smoking Status (Most current) and Tobacco Use (All prior to encounter date) This section includes the most current, and the historical, smoking and tobacco- related health factors from the [place] facility where the Encounter took place. Current Smoking Status This section includes the most current smoking, or tobacco-related health factor, from the [place] facility where the Encounter took place. Date/Time Current Smoking Status Comment Facil ity Jun 01, 2024 10:57 AM VA-TOBACCO USE FOR AKANKSHA CIGARETTES [facility] Tobacco Use History This section includes a history of the smoking, or tobacco-related health factors, that were collected on or before the date of the Encounter. The data comes from the [place] facility where the Encounter took place. Date/Time Smoking Status/Tobacco Use Comment F acility Jun 01, 2024 10:57 AM VA-TOBACCO USE FOR AKANKSHA CIGARETTES [facility] [place] [facility] Jan 22, 2023 01:30 PM VA-TOBACCO FORMER USER [facility] CN[facility]L [facility] [place] [facility] Jan 22, 2023 01:30 PM VA-TOBACCO QUIT 5 TO < 15 YRS LA [facility] [place] [facility] Feb 17, 2022 04:37 PM VA-TOBACCO FORMER USER [facility] [place] [facility] Feb 17, 2022 04:37 PM VA-TOBACCO QUIT 1 TO < 5 YRS LA [facility] [place] [facility] Advance Directives: All historical and current Section Date Range: From patient's date of to the date document was created. This section includes ALL of a patient's completed or amended [place] Advance and Rescinded Directives. The entries below indicate that a directive exists for the patient, but an actual copy is not included with this document. The data comes from all [place] facilities. Date Advance Directives Provider Source Oct 26, 2023 ADVANCE DIRECTIVE MARGARITA KRAFT LA CN TRL [facility] [place] [facility] Encounter Notes: All associated encounter notes This section contains the clinical notes associated to the Encounter. Date/Time Encounter Note(s) Provider Source Oct 20, 2024 02:23 PM ADDENDUM: LOCAL TITLE: Addendum STANDARD TITLE: ADDENDUM DATE OF NOTE: OCT 20, 2024@14:23:07 ENTRY DATE: OCT 20, 2024@14:23:08 AUTHOR: MIRELA TEJEDA COSIGNER: URGENCY: STATUS: COMPLETED LCS Coordinator placed call to [facility] radiology department, was advised CXR completed in April [address] chest completed November 2023. Requested both reports to be faxed to . LCS Coordinator placed a call to [facility] , per office was referred via private insurance from pain management provider at [facility] to the pulmonary team in September 2023. has completed a CT scan with [facility] in November 2023, was seen most recently by Isamar Lock NP [facility] pulmonary in September [address] of the chest in November 2024. Advised that [place] is enrolled in LCS through [facility] with annual LCS LDCT in January 2023 and January 2024 with plan for imaging in January 2025. Advised that offices should coordinate so that is not being scanned at a frequency that is not clinically indicated. Direct call back number for LCS Coordinator provided for Isamar Lock NP. Per [facility] Pulm medical records are required to be requested via fax request to . Request for clinical notes, PFTs, CT scan reports/chest imaging faxed via RightFax on 10/20/2024 with confirmed receipt. /es/ MIRELA MOTA,RN,OCN LUNG CANCER SCREENING NURSE NAVIGATOR Signed: 10/20/2024 14:49 Receipt Acknowledged By: 10/20/2024 14:59 /es/ JOSHUA YANEZ RN REGISTERED NURSE 10/22/2024 08:09 /es/ Valentín Amador PA-C STAFF PHYSICIAN DIRECTOR DIGITAL ADVERTISING ====== --- Original Document --- 10/20/24 TIMOTEO [...] 5. COPD - Chronic Obstructive Pulmonary Disease ([facility] [id number]) 6. Depression ([facility] [id number]) 7. Deep venous thrombosis of upper extremity Left 8. H/O: rheumatoid arthritis 9. Sjogren syndrome 10. PE - Pulmonary Embolism ([facility] [id number]) SERVICE CONNECTED % - 80 [facility] and [...] Indication: TO PREVENT BLOOD CLOTS 10) Non-VA OZDMMGLKIWVX34.5/VILANTE [id number] 30D INH 1 INHALATION ACTIVE BY MOUTH [...] ask LCS coordinator to deconflict here vs [place] where they report pulm consult with imaging/ct since an april admission for hypoxia/oxygenation. /flor/ Valentín Amador PA-C STAFF PHYSICIAN DIRECTOR DIGITAL ADVERTISING Signed: 10/20/2024 13:52 Receipt Acknowledged By: 10/20/2024 14:13 /es/ JOSHUA YANEZ, RN REGISTERED NURSE 10/20/2024 14:22 /es/ MIRELA MOTA,RN,OCN LUNG CANCER SCREENING NURSE NAVIGATOR 10/20/2024 ADDENDUM STATUS: COMPLETED Respite Care can be provider when dates needed available to enter consult. /es/ JOSHUA YANEZ RN REGISTERED NURSE Signed: 10/20/2024 14:14 10/20/2024 ADDENDUM STATUS: COMPLETED Images requested for CT Chest 11/2023 and CXR 04/2024, [facility] radiology team notified. /flor/ MIRELA MOTA,RN,OCN LUNG CANCER SCREENING NURSE NAVIGATOR Signed: 10/20/2024 14:58 MIRELA TEJEDA [facility] Oct 20, 2024 01:47 PM PHYSICIAN DIRECTOR DIGITAL ADVERTISING NOTE: LOCAL TITLE: PA NOTE STANDARD TITLE: PHYSICIAN DIRECTOR DIGITAL ADVERTISING NOTE DATE OF NOTE: OCT 20, 2024@13:47 [...] 5. COPD - Chronic Obstructive Pulmonary Disease ([facility] [id number]) 6. Depression ([facility] [id number]) 7. Deep venous thrombosis of upper extremity Left 8. H/O: rheumatoid arthritis 9. Sjogren syndrome 10. PE - Pulmonary Embolism ([facility] [id number]) SERVICE CONNECTED % - 80 [facility] and [...] Indication: TO PREVENT BLOOD CLOTS 10) Non-VA UJZLAEUUKVYT28.5/VILANTE [id number] 30D INH 1 INHALATION ACTIVE BY MOUTH [...] ask LCS coordinator to deconflict here vs [facility] where they report pulm consult with imaging/ct since an april admission for hypoxia/oxygenation. /es/ Valentín Amador PA-C STAFF PHYSICIAN DIRECTOR DIGITAL ADVERTISING Signed: 10/20/2024 13:52 Receipt Acknowledged By: 10/20/2024 14:13 /es/ JOSHUA YANEZ RN REGISTERED NURSE 10/20/2024 14:22 /es/ MIRELA MOTA,RN,OCN LUNG CANCER SCREENING NURSE NAVIGATOR 10/20/2024 ADDENDUM STATUS: COMPLETED Respite Care can be provider when dates needed available to enter consult. /flor/ JOSHUA YANEZ RN REGISTERED NURSE Signed: 10/20/2024 14:14 10/20/2024 ADDENDUM STATUS: COMPLETED LCS Coordinator placed call to [facility] radiology department, was advised CXR completed in April [address] chest completed November 2023. Requested both reports to be faxed to . LCS Coordinator placed a call to [facility] , per office was referred via private insurance from pain management provider at [facility] to the pulmonary team in September 2023. [place] has completed a CT scan with [facility] in November 2023, was seen most recently by Isamar Lock NP [facility] pulmonary in September [address] of the chest in November 2024. Advised that [place] is enrolled in LCS through [facility] with annual LCS LDCT in January 2023 and January 2024 with plan for imaging in January 2025. Advised that offices should coordinate so that is not being scanned at a frequency that is not clinically indicated. Direct call back number for LCS Coordinator provided for Isamar Lock NP. Per [facility] Pulm medical records are required to be requested via fax request to . Request for clinical notes, PFTs, CT scan reports/chest imaging faxed via RightFax on 10/20/2024 with confirmed receipt. /flor/ MIRELA MOTA,RN,OCN LUNG CANCER SCREENING NURSE NAVIGATOR Signed: 10/20/2024 14:49 Receipt Acknowledged By: 10/20/2024 14:59 /es/ JOSHUA YANEZ RN REGISTERED NURSE 10/22/2024 08:09 /es/ Valentín Amador PA-C STAFF PHYSICIAN DIRECTOR DIGITAL ADVERTISING 10/20/2024 ADDENDUM STATUS: COMPLETED Images requested for CT Chest 11/2023 and CXR 04/2024, [facility] radiology team notified. /flor/ MIRELA MOTA,RN,OCN LUNG CANCER SCREENING NURSE NAVIGATOR Signed: 10/20/2024 14:58 10/23/2024 ADDENDUM STATUS: COMPLETED Lcs Coordinator received a phone call from Isamar Davidson NP with [facility] pulmonary who states prior imaging was for post hospital follow up, they will cancel scan scheduled for November and may resume imaging through [facility] CW program as previously enrolled with next imaging due in January 2025. LCS Coordinator placed a call to [facility]. Voicemail left identifying caller as LCS Coordinator, rationale for call briefly explained. Direct call back number for coordinator provided. /flor/ MIRELA MOTA,RN,OCN LUNG CANCER SCREENING NURSE NAVIGATOR Signed: 10/23/2024 15:26 10/24/2024 ADDENDUM STATUS: COMPLETED LCS Coordinator received a call back from ananth Roque . D[facility]ed [facility] L[facility] Coordinator will reach out to [place] and by phone once images of Chest CT 11/2023 and CXR 04/2024 are received from [facility] and reviewed with radiologist to ensure [place] is appropriate follow up time frame. In the interim, was scheduled for LCS LDCT 01/16/2025 at 11:15am. /maury MOTA,RN,OCN LUNG CANCER SCREENING NURSE NAVIGATOR Signed: 10/24/2024 15:30 11/09/2024 ADDENDUM STATUS: COMPLETED Received CXR only, call placed to [facility] Radiology, second request for 11/23/2023 CT scan via phone call, followed by repeat fax request on 11/09/2024 via RightFax with confirmed receipt to alt fax number provided by Radiology: . Additionally, [facility] report of 01/06/2024 CT Chest completed at [facility]. [facility] Radiology team requesting images. /flor/ MIRELA MOTA,RN,OCN LUNG CANCER SCREENING NURSE NAVIGATOR Signed: 11/09/2024 09:13 VALENTÍN AMADOR [facility]TRL [facility] [place] [facility] Oct 20, 2024 01:27 PM ACCOUNTING OF [...] review controlled substances prescribed outside of the [place], and any additional information that may become available, as an important component of standard clinical care, and in accordance with [facility] policy. Patient information was shared with the PDMP [place]. Prescription(s) filled outside the [facility] in the [...] Pharmacy Refill Daily Dose * Pymt Type PRICER 08/22/2024 1 08/21/2024 08/23/2024 Gabapentin 600 Mg Tablet 90.00 90 Ol Buc [id number] [facility] 0/1 Medicare [place] 08/14/2024 1 08/14/2024 08/15/2024 Triazolam 0.25 Mg Tablet 1.00 1 Do Lei [id number] [facility] ([facility] 0/0 Medicare [place] 08/03/2024 1 08/03/2024 08/07/2024 Hydromorphone 2 Mg Tablet 30.00 30 Ol Buc [id number] [facility] (4483) 0/0 10.00 MME Medicare [place] 07/11/2024 1 05/01/2024 07/13/2024 Gabapentin 800 Mg Tablet 90.00 90 Ol Buc [id number] [facility] (4079) 07/14 Medicare [place] 05/29/2024 1 05/22/2024 05/30/2024 Hydromorphone 2 Mg Tablet 30.00 30 Ol Buc [id number] [facility] (6083) 0/0 10.00 MME Medicare [place] 05/01/2024 1 05/01/2024 05/01/2024 Gabapentin 800 Mg Tablet 90.00 90 Ol Buc [id number] [facility] (4079) Medicare [place] 04/17/2024 1 04/17/2024 04/21/2024 Gabapentin 600 Mg Tablet 90.00 30 Ol Buc [id number] [facility] (40[facility]) 0/0 [place] /flor/ Valentín Amador PA-C STAFF PHYSICIAN DIRECTOR DIGITAL ADVERTISING Signed: 10/20/2024 13:47 VALENTÍN AMADOR [facility] [place] [facility] Oct 20, 2024 01:09 PM PREVENTIVE MEDICINE NURSING NOTE: LOCAL TITLE: CLINICAL REMINDERS/NURSING STANDARD TITLE: PREVENTIVE MEDICINE NURSING NOTE DATE OF NOTE: OCT 20, 2024@13:09 ENTRY DATE: OCT 20, 2024@13:09:21 AUTHOR: HARPAL VILLALBA EXP COSIGNER: URGENCY: STATUS: COMPLETED Suicide Screen: C-SSRS Screening [place] Suicide Severity Rating Scale (C-SSRS) screener 1. [...] VILLALBA LPN Signed: 10/20/2024 13:10 HARPAL VILLALBA CNT[facility]
--- OUTSIDE RECORDS SUMMARY | 2024-11-27 11:51 | XMS_ITS | Patient Health Record ---
Author Organization [facility] Address [address] [place] [id number] Care Team Providers Care Psych Coordinator Name Role Phone Lalitha MORALES, William Primary Care Provider Kong Nava Unavailable [phone] Arnav Limon Unavailable Unavailable Allergies No Known Allergies Reason For Referral No Information Medications Medication SIG (Take, Route, Frequency, Duration) Notes Start Date End Date Status Enbrel SureClick 50 MG/ML Subcutaneous Active Problems Problem Type SNOMED Code ICD Code Onset Dates Problem Status W/U Status Risk Notes Problem Skin ulcer of calf (887375085) Ulcer (skin exp) LEFT CALF (L97.221) Active confirmed Problem Varicose veins of lower extremity (63466421) Vikash Insuf (other compl) LEFT (I83.892) Active confirmed Problem Vikash Insuf (ulcer) LEFT CALF (I83.022) Active confirmed Plan Of Treatment No Information Insurance Providers Payer Name Payer Address Payer Phone Subscriber Number Group Number Insured Name Patient Relationship to Insured Coverage Start Date Coverage End Date [employer] Blue [address] [place] [address] [id number] Sarath Gipson Self - patient is the insured [facility],EPO & Medigap [address] [place] [address] [id number] Farideh Gipson Spouse - patient is the spouse of the insured [employer] [address] TIMOTEO Fajardo [id number] Sarath Gipson Self - patient is the insured 8
--- OUTSIDE RECORDS SUMMARY | 2024-11-27 11:51 | XMS_ITS | Continuity of Care Document ---
Author Name [facility] Organization [facility] Care Team Providers Care Hotel Service Manager Name Role Phone [facility] Unavailable Unavailable Problems Combined list of problems [...] COPD - Chronic Obstructive Pulmonary Disease (SCT [id number]) Active Condition [facility] Deep venous thrombosis of upper extremity Active Condition Feb 18, 2022 Entered By: MESFIN SAHA Comment: Left [facility] Depression (SCT [id number]) Active Condition [facility] Exposure to potentially hazardous substance Active Condition Oct 07, 2023 Entered By: COL BHARATHI ADAME Comment: ILIANA Screening Snomed Code connected 01/22/23 [facility] H/O: rheumatoid arthritis Active Condition [facility] Hypertension Active Condition [facility] Moderate protein-calorie malnutrition (weight for age 60-74 percent of standard) Active Condition [facility] PE - Pulmonary Embolism (SCT [id number]) Active Condition [facility] Pyoderma gangrenosum Active Condition [facility] Rheumatoid arthritis Active Condition [facility] Sjogren syndrome Active Condition [facility] Venous ulcer Active Condition [facility] Diagnosis: ICD-10-CM M35.00 Sjogren syndrome, unspecified Active Diagnosis [facility] Diagnosis: ICD-10-CM H40.013 Open angle with borderline findings, low risk, bilateral Active Diagnosis [facility] [place] [facility] Diagnosis: ICD-10-CM R52 Pain, unspecified Active Diagnosis [facility] [place] [facility] Diagnosis: ICD-10-CM Z12.2 Encntr screen for malignant neoplasm of respiratory organs Active [facility] Diagnosis: ICD-10-CM Z46.0 Encounter for fit/adjst of spectacles and contact lenses Active Diagnosis [facility] Diagnosis: ICD-10-CM I10 Essential (primary) hypertension Active Diagnosis [facility] Diagnosis: ICD-10-CM J44.9 Chronic obstructive pulmonary disease, unspecified Active Diagnosis [facility] [place] [facility] Diagnosis: ICD-10-CM F43.10 Post-traumatic stress disorder, unspecified Active Diagnosis [facility] [place] [facility] Diagnosis: ICD-10-CM S91.009A Unspecified open wound, [...] MOUTH PRN ORAL ACTIVE VALENTÍN SAHA 20[facility] ALBUTEROL 90MCG/ACTUA T (CFC-F) INHL,ORAL,8 .5GM DOSE COUNTER INHALE 2 PUFFS BY MOUTH EVERY 6 HOURS NEEDED RESPIR ATORY (INHAL ATION) ACTIVE VALENTÍN SHAA 2022 [facility] CALCIUM CARBONATE TAB TAKE ACTIVE SERGEY [place] 2018 [place] CHOLECALCIF MELISSA (VIT D3) TAB TAKE EVERY DAY ACTIVE SERGEY [place] 2018 [place] DULOXETINE HCL 20MG CAP,EC TAKE 1 CAPSULE BY MOUTH AT BEDTIME ORAL ACTIVE VALENTÍN SAHA 2022 [facility] ETANERCEPT 50MG INJ,SOLN INJECT UNDER THE SKIN SUBCUT ANEOUS ACTIVE SERGEY [place] 2018 [place] FAMOTIDINE TAB TAKE [facility]IVE [facility] [place] FLUTICASONE PROPIONATE 50MCG/SPRAY SOLN,NASAL, 16GM INSTILL 2 SPRAYS INTO EACH NOSTRIL ONCE DAILY NASAL ACTIVE MARIA AVALENTÍN Berry [facility] GABAPENTIN 300MG CAP TAKE 2 CAPSULES BY MOUTH EVERY EVENING AND TAKE 4 CAPSULES BY MOUTH AT BEDTIME ORAL ACTIVE MARIA AVALENTÍN 2022 [facility] HYDROCHLORO THIAZIDE TAB TAKE EVERY DAY [facility]IVE [facility] [place] HYDROMORPHO NE HCL 2MG TAB TAKE ONE TABLET BY MOUTH THREE TIMES DAILY NEEDED ORAL ACTIVE MARIA AVALENTÍN Berry [facility] IBUPROFEN TAB TAKE PRN ACTIVE MONISERGEY [place] 2018 [place] METOPROLOL TARTRATE 25MG TAB TAKE ONE TABLET BY MOUTH TWICE DAILY ORAL ACTIVE MARIA AVALENTÍN 2022 [facility] MULTIVITAMI N & MINERALS TAB TAKE EVERY DAY ACTIVE MONISERGEY [place] 2018 [place] NALOXONE HCL 4MG/SPRAY SOLN,SPRAY, NASAL INSTILL 1 SPRAY ONE NOSTRIL ONE TIME PRN NASAL ACTIVE ALONDRADEBORAHBEBEVALENTÍN 2022 [facility] PREDNISONE (LOOK ALIKE/SOUND ALIKE) TAB TAKE BY MOUTH ORAL ACTIVE SERGEY [place] 2019 [place] RIVAROXABAN 10MG TAB TAKE ONE TABLET BY MOUTH ONCE DAILY ORAL ACTIVE MARIA AVALENTÍN 2022 [facility] SODIUM CHLORIDE 0.9% (PF) INJ,SYRINGE ,10ML INJECT 1 SYRINGE IV PUSH ONCE DAILY INTRAV ENOUS DISCONT INUED (EDIT) 04/28/2024 [id number] RAMBIDEON DESAIITRI 2023 30 [place] [facility] [place] [facility] SODIUM CHLORIDE 0.9% (PF) INJ,SYRINGE ,10ML INJECT 1 SYRING[place] IV PUSH DIRECTED BY PROVIDER INTRAV ENOUS DISCONT INUED (EDIT) 02/18/2024 [id number] 4 CHANGSSLIN OglesbyDAVID 2023 30 [facility] SODIUM CHLORIDE 0.9% (PF) INJ,SYRINGE ,10ML INJECT 1 SYRINGE DIRECTED BY PROVIDER ONCE DAILY NOT APPLIC ABLE 04/30/2024 [id number] 4 BLANKABISSLIN OglesbyDAVID 2023 30 [facility] SODIUM CHLORIDE 0.9% (PF) INJ,SYRINGE ,10ML APPLY 1 SYRINGE TOPICALL Y DIRECTED BY PROVIDER TOPICA L 03/02/2024 [id number] CHANGSSLIN OglesbyDAVID 2023 30 [facility] SODIUM CHLORIDE 0.9% SOLN,IRRG IRRIGATE UDP TOPICALL Y ONCE DAILY TOPICA L DISCONT INUED (EDIT) 08/25/2024 [id number] 5 BLANKABISSLIN Oglesby,DAVID 2024 1000 [facility] SODIUM CHLORIDE 0.9% SOLN,IRRG IRRIGATE UDP TOPICALL Y EVERY OTHER DAY TOPICA L DISCONT INUED (EDIT) 10/01/2023 [id number] 4 CHANGSSLIN OglesbyDAVID 2023 1000 [facility] SODIUM CHLORIDE 0.9% SOLN,IRRG IRRIGATE DIRECTED TOPICALL Y ONCE DAILY TOPICA L 08/31/2024 [id number] 5 RAMBISSOO MendelDAVID 2024 1000 [facility] SODIUM CHLORIDE 0.9% SOLN,IRRG IRRIGATE DIRECTED TOPICALL Y EVERY OTHER DAY TOPICA L 10/03/2023 [id number] 4 BLANKABISSLIN OglesbyDAVID 2023 1000 [facility] UMECLIDINIU M 62.5MCG/YARELY ANTEROL 25MCG/ACTUA T INH,ORAL,30 D INHALE 1 INHALATI ON BY MOUTH ONCE DAILY RESPIR ATORY (INHAL ATION) ACTIVE VALENTÍN SAHA 2022 [facility] UPADACITINI B 15MG 24HR TAB,SA TAKE ONE TABLET BY MOUTH ONCE DAILY ORAL ACTIVE ALONDRAVALENTÍN HARDY 2022 [facility] Allergies, Adverse Reactions, Alerts Combined list of allergies from Department of Defense and Veterans Affairs facilities. It does not include entries that were removed or entered in error. Substance Category Reaction Severity Reaction type Status Date Reported Comments Source HEPARIN Propensity to adverse reactions to drug (finding) Cardiac arrest SEVERE active 3 [facility] Immunizations Combined list of available immunizations from the Department of Defense and Veterans Affairs facilities. Immunization Series Date Given Administered By Site Reaction Lot Number CVX Code Drug Cms Expert Status Comments Source INFLUENZA, UNSPECIFIED FORMULATION 2023 88 complet ed Booster for Series, HISTORICA L INFORMATI ON - FROM OTHER PROVIDER, [facility] PNEUMOCOCCAL CONJUGATE PCV20, POLYSACCHARID E [id number] CONJUGATE, ADJUVANT, PF 2023 ROXANNA VILLALBA E LEFT DELTO ID [id number] 216 complet ed Booster for Series, [facility]MIN[facility]E [facility] TDAP 2023 ROXANNA VILLALBA LEFT DELTO ID [id number] 115 complet ed Booster for Series, [facility] INFLUENZA, UNSPECIFIED FORMULATION 2022 88 complet ed Booster for Series, HISTORICA L INFORMATI ON - FROM OTHER PROVIDER, [facility] COVID-19 (MODERNA), MRNA, LNP-S, BIVALENT, PF, 50 MCG/0.5 ML OR 25MCG/0.25 ML DOSE 1 2021 229 complet ed HISTORICA L INFORMATI ON - FROM OTHER PROVIDER, [facility] INFLUENZA VACCINE, QUADRIVALENT, ADJUVANTED 2021 205 complet ed [facility] [place] [facility] COVID-19 (MODERNA), MRNA, LNP-S, PF, 100 MCG/0.5ML DOSE OR 50 MCG/0.25ML DOSE 3 2020 207 complet ed [facility] [place] [facility] INFLUENZA, UNSPECIFIED FORMULATION 2020 88 complet ed [facility] [place] [facility] COVID-19 (MODERNA), MRNA, LNP-S, PF, 100 MCG/0.5 ML DOSE 2 2020 207 complet ed MOD; [id number]; 1 [place] COVID-19 (MODERNA), MRNA, LNP-S, PF, 100 MCG/0.5 ML DOSE 1 2020 207 complet ed MOD; [id number]; 1 [place] INFLUENZA, TRIVALENT, ADJUVANTED 2018 NONE 168 complet ed [place] PNEUMOCOCCAL CONJUGATE PCV 13 2017 133 complet ed [facility] PNEUMOCOCCAL POLYSACCHARID E [id number] 2015 33 complet ed [facility] Results Combined list of recent [...] Oct 15, 2023 11:05 AM Reporting Lab: [address] [address] Performing Lab: [address] [address] [facility] LIVER FUNCTION ALBUMIN [MASS/VOLU ME] IN SERUM OR PLASMA 3.8 g/dL 3.5 - 5.0 10/14 Specimen Type: SERUM No comment entered. Ordering Provider: Madelaine SAHA Report Released Date/Time: Oct 15, 2023 11:05 AM Reporting Lab: [facility] [place] [facility] [address] [address] Performing Lab: [facility] [place] [facility] [address] [address] [facility] [facility] LIVER FUNCTION ALKALINE PHOSPHATAS E [ENZYMATIC ACTIVITY/V OLUME] IN SERUM OR PLASMA 50 U/L 40 - 150 10/14 Specimen Type: SERUM No comment entered. Ordering Provider: Madelaine SAHA Report Released Date/Time: Oct 15, 2023 11:05 AM Reporting Lab: [facility] [place] [address] [address] Performing Lab: [facility] [place] [address] [address] [place] [facility] [facility] LIVER FUNCTION ASPARTATE AMINOTRANS FERASE [ENZYMATIC ACTIVITY/V OLUME] IN SERUM OR PLASMA 15 U/L 5 - 34 10/14 Specimen Type: SERUM No comment entered. Ordering Provider: Madelaine SAHA Report Released Date/Time: Oct 15, 2023 11:05 AM Reporting Lab: [facility] [place] [facility] [address] [address] Performing Lab: [facility] [place] [address] [address] [facility] [facility] LIVER FUNCTION ALANINE AMINOTRANS FERASE [ENZYMATIC ACTIVITY/V OLUME] IN SERUM OR PLASMA 26 U/L 10/14 Specimen Type: SERUM No comment entered. Ordering Provider: Madelaine SAHA Report Released Date/Time: Oct 15, 2023 11:05 AM Reporting Lab: [facility] [place] [facility] [address] [address] Performing Lab: [facility] [place] [address] [address] [facility] [facility] LIVER FUNCTION BILIRUBIN. TOTAL [MASS/VOLU ME] IN SERUM OR PLASMA 0.5 mg/dL 0.2 - 1.2 10/14 Specimen Type: SERUM No comment entered. Ordering Provider: Madelaine SAHA Report Released Date/Time: Oct 15, 2023 11:05 AM Reporting Lab: [facility] [address] [address] Performing Lab: [facility] [address] [facility] BASIC METABOLI C PANEL (fasting ) UREA NITROGEN [MASS/VOLU ME] IN SERUM OR PLASMA 18 mg/dL 7 - 25 10/14 Specimen Type: SERUM No comment entered. Ordering Provider: Madelaine SAHA Report Released Date/Time: Oct 15, 2023 11:05 AM Reporting Lab: [facility] [address] Performing Lab: [facility] [address] [facility] BASIC METABOLI C PANEL (fasting ) GLUCOSE [MASS/VOLU ME] IN SERUM OR PLASMA 95 mg/dL 65 - 100 10/14 Specimen Type: SERUM No comment entered. Ordering Provider: Madelaine SAHA Report Released Date/Time: Oct 15, 2023 11:05 AM Reporting Lab: [facility] [place] [address] [address] Performing Lab: [place] [facility] [facility] [facility] [address] [address] [facility] BASIC METABOLI C PANEL (fasting ) SODIUM [MOLES/VOL UME] IN SERUM OR PLASMA 141 mmol/L 135 - 145 10/14 Specimen Type: SERUM No comment entered. Ordering Provider: Madelaine SAHA Report Released Date/Time: Oct 15, 2023 11:05 AM Reporting Lab: [facility] [address] [address] Performing Lab: [place] [facility] [facility] [facility] [address] [address] [facility] BASIC METABOLI C PANEL (fasting ) POTASSIUM [MOLES/VOL UME] IN SERUM OR PLASMA 4.2 mmol/L 3.5 - 5.0 10/14 Specimen Type: SERUM No comment entered. Ordering Provider: Madelaine SAHA Report Released Date/Time: Oct 15, 2023 11:05 AM Reporting Lab: [place] [facility] [place] [facility] [address] [address] Performing Lab: [place] [facility] [address] [address] [facility] [place] [facility] BASIC METABOLI C PANEL (fasting ) CHLORIDE [MOLES/VOL UME] IN SERUM OR PLASMA 106 mmol/L 100 - 110 10/14 Specimen Type: SERUM No comment entered. Ordering Provider: Madelaine SAHA Report Released Date/Time: Oct 15, 2023 11:05 AM Reporting Lab: [facility] [place] [address] [address] Performing Lab: [place] [facility] [address] [address] [facility] BASIC METABOLI C PANEL (fasting ) CARBON DIOXIDE, TOTAL [MOLES/VOL UME] IN SERUM OR PLASMA 25 meq/L 20 - 30 10/14 Specimen Type: SERUM No comment entered. Ordering Provider: Madelaine SAHA Report Released Date/Time: Oct 15, 2023 11:05 AM Reporting Lab: [place] [facility] [place] [address] [address] Performing Lab: [place] [facility] [place] [address] [address] [facility] BASIC METABOLI C PANEL (fasting ) CREATININE [MASS/VOLU ME] IN SERUM OR PLASMA 1.37 mg/dL 0.50 - 1.40 10/14 Specimen Type: SERUM No comment entered. Ordering Provider: Madelaine SAHA Report Released Date/Time: Oct 15, 2023 11:05 AM Reporting Lab: [facility] [place] [facility] [address] [address] Performing Lab: [facility] [place] [facility] [address] [address] [facility] [facility] BASIC METABOLI C PANEL (fasting ) GLOMERULAR FILTRATION RATE/1.73 SQ M.PREDICTE D [VOLUME RATE/AREA] IN SERUM, PLASMA OR BLOOD BY CREATININE -BASED FORMULA (CKD-EPI 2020) 53 mL/min 60 10/14 L Specimen Type: SERUM No comment entered. Ordering Provider: Madelaine SAHA Report Released Date/Time: Oct 15, 2023 11:05 AM Reporting Lab: [facility] [place] [facility] [address] [address] Performing Lab: [facility] [place] [address] [address] [facility] [place] [facility] LIPID PANEL FASTING CHOLESTERO L [MASS/VOLU ME] IN SERUM OR PLASMA 179 mg/dL 10/14 Specimen Type: SERUM No comment entered. Ordering Provider: Madelaine SAHA Report Released Date/Time: Oct 15, 2023 11:05 AM Reporting Lab: [facility] [place] [address] [address] Performing Lab: [facility] [place] [facility] [address] [address] [facility] [place] [facility] LIPID PANEL FASTING TRIGLYCERI DE [MASS/VOLU ME] IN SERUM OR PLASMA 123 mg/dL 0 - 150 10/14 Specimen Type: SERUM No comment entered. Ordering Provider: Madelaine SAHA Report Released Date/Time: Oct 15, 2023 11:05 AM Reporting Lab: [facility] [place] [facility] [address] [address] Performing Lab: [facility] [place] [address] [address] [facility] [place] [facility] LIPID PANEL FASTING CHOLESTERO L IN LDL [MASS/VOLU ME] IN SERUM OR PLASMA BY DIMPLE N 111 mg/dL 0 - 129 10/14 Specimen Type: SERUM No comment entered. Ordering Provider: Madelaine SAHA Report Released Date/Time: Oct 15, 2023 11:05 AM Reporting Lab: [facility] [place] [facility] [address] [address] Performing Lab: [facility] [place] [facility] [address] [address] [facility] [place] [facility] LIPID PANEL FASTING CHOLESTERO L.TOTAL/CH OLESTEROL IN HDL [MASS RATIO] IN SERUM OR PLASMA 4.2 10/14 Specimen Type: SERUM No comment entered. Ordering Provider: Madelaine SAHA Report Released Date/Time: Oct 15, 2023 11:05 AM Reporting Lab: [facility] [place] [facility] [address] [address] Performing Lab: [facility] [place] [facility] [address] [address] [place] [facility] [facility] LIPID PANEL FASTING CHOLESTERO L IN HDL [MASS/VOLU ME] IN SERUM OR PLASMA 43 mg/dL 40 - 60 10/14 Specimen Type: SERUM No comment entered. Ordering Provider: Madelaine SAHA Report Released Date/Time: Oct 15, 2023 11:05 AM Reporting Lab: [facility] [place] [facility] [address] [address] Performing Lab: [facility] [place] [facility] [address] [address] [facility] [place] [facility] IRON & TIBC PANEL IRON BINDING CAPACITY [MASS/VOLU ME] IN SERUM OR PLASMA 338 ug/dL 204 - 475 10/14 Specimen Type: SERUM No comment entered. Ordering Provider: Madelaine SAHA Report Released Date/Time: Oct 15, 2023 11:05 AM Reporting Lab: [facility] [place] [facility] [address] [address] Performing Lab: [facility] [place] [facility] [address] [address] [facility] [place] [facility] IRON & TIBC PANEL IRON [MASS/VOLU ME] IN SERUM OR PLASMA 51 ug/dL 40 - 160 10/14 Specimen Type: SERUM No comment entered. Ordering Provider: Madelaine SAHA Report Released Date/Time: Oct 15, 2023 11:05 AM Reporting Lab: [facility] [place] [facility] [address] [address] Performing Lab: [facility] [place] [facility] [address] [address] [facility] [place] [facility] IRON & TIBC PANEL IRON/IRON BINDING CAPACITY.T OTAL [MASS RATIO] IN SERUM OR PLASMA 15.1 20.0 - 50.0 10/14 L Specimen Type: SERUM No comment entered. Ordering Provider: Madelaine SAHA Report Released Date/Time: Oct 15, 2023 11:05 AM Reporting Lab: [facility] [place] [facility] [address] [address] Performing Lab: [facility] [place] [address] [address] [facility] CBC AND DIFF (AUTO) LEUKOCYTES [#/VOLUME] IN BLOOD BY AUTOMATED COUNT 6.76 10*3/uL 4.50 - 11.00 10/14 Specimen Type: BLOOD No comment entered. Ordering Provider: Madelaine SAHA Report Released Date/Time: Oct 15, 2023 11:05 AM Reporting Lab: [facility] [place] [facility] [address] [address] Performing Lab: [facility] [place] [facility] [address] [address] [place] [facility] [facility] CBC AND DIFF (AUTO) ERYTHROCYT ES [#/VOLUME] IN BLOOD BY AUTOMATED COUNT 5.57 10*6/uL 4.23 - 5.66 10/14 Specimen Type: BLOOD No comment entered. Ordering Provider: Madelaine SAHA Report Released Date/Time: Oct 15, 2023 11:05 AM Reporting Lab: [facility] [place] [facility] [address] [address] Performing Lab: [facility] [place] [facility] [address] [address] [facility] [place] [facility] CBC AND DIFF (AUTO) HEMOGLOBIN [MASS/VOLU ME] IN BLOOD 14.9 g/dL 12.8 - 17 10/14 Specimen Type: BLOOD No comment entered. Ordering Provider: Madelaine SAHA Report Released Date/Time: Oct 15, 2023 11:05 AM Reporting Lab: [facility] [place] [facility] [address] [address] Performing Lab: [facility] [place] [facility] [address] [address] [facility] [place] [facility] CBC AND DIFF (AUTO) HEMATOCRIT [VOLUME FRACTION] OF BLOOD BY AUTOMATED COUNT 47.5 39.2 - 50.4 10/14 Specimen Type: BLOOD No comment entered. Ordering Provider: Madelaine SAHA Report Released Date/Time: Oct 15, 2023 11:05 AM Reporting Lab: [facility] [place] [facility] [address] [address] Performing Lab: [facility] [place] [facility] [address] [address] [facility] [place] [facility] CBC AND DIFF (AUTO) MCV [ENTITIC VOLUME] BY AUTOMATED COUNT 85.3 fL 82 - 99 10/14 Specimen Type: BLOOD No comment entered. Ordering Provider: Madelaine SAHA Report Released Date/Time: Oct 15, 2023 11:05 AM Reporting Lab: [facility] [place] [facility] [address] [address] Performing Lab: [facility] [place] [facility] [address] [address] [facility] CBC AND DIFF (AUTO) MCHC [MASS/VOLU ME] BY AUTOMATED COUNT 31.4 g/dL 30.8 - 35.1 10/14 Specimen Type: BLOOD No comment entered. Ordering Provider: Madelaine SAHA Report Released Date/Time: Oct 15, 2023 11:05 AM Reporting Lab: [place] [facility] [place] [address] [address] Performing Lab: [facility] [place] [facility] [address] [address] [facility] CBC AND DIFF (AUTO) PLATELETS [#/VOLUME] IN BLOOD BY AUTOMATED COUNT 243 10*3/uL 140 - 360 10/14 Specimen Type: BLOOD No comment entered. Ordering Provider: Madelaine SAHA Report Released Date/Time: Oct 15, 2023 11:05 AM Reporting Lab: [place] [facility] [place] [address] [address] Performing Lab: [facility] [place] [address] [address] [facility] CBC AND DIFF (AUTO) ERYTHROCYT E DISTRIBUTI ON WIDTH [RATIO] BY AUTOMATED COUNT 15.0 12.0 - 16.0 10/14 Specimen Type: BLOOD No comment entered. Ordering Provider: Madelaine SAHA Report Released Date/Time: Oct 15, 2023 11:05 AM Reporting Lab: [facility] [place] [address] [address] Performing Lab: [facility] [place] [address] [address] [facility] CBC AND DIFF (AUTO) MONOCYTES [#/VOLUME] IN BLOOD BY AUTOMATED COUNT 0.49 10*3/uL 0.30 - 1.10 10/14 Specimen Type: BLOOD No comment entered. Ordering Provider: Madelaine SAHA Report Released Date/Time: Oct 15, 2023 11:05 AM Reporting Lab: [facility] [place] [address] [facility] [address] Performing Lab: [facility] [address] [facility] [address] [facility] CBC AND DIFF (AUTO) MCH [ENTITIC MASS] BY AUTOMATED COUNT 26.8 pg 26.2 - 32.6 10/14 Specimen Type: BLOOD No comment entered. Ordering Provider: Madelaine SAHA Report Released Date/Time: Oct 15, 2023 11:05 AM Reporting Lab: [facility] [address] [facility] [address] Performing Lab: [facility] [address] [facility] [address] [facility] CBC AND DIFF (AUTO) NEUTROPHIL S/100 LEUKOCYTES IN BLOOD BY AUTOMATED COUNT 67.8 43.7 - 75.8 10/14 Specimen Type: BLOOD No comment entered. Ordering Provider: Madelaine SAHA Report Released Date/Time: Oct 15, 2023 11:05 AM Reporting Lab: [facility] [place] [address] [facility] [address] Performing Lab: [facility] [address] [facility] [address] [facility] CBC AND DIFF (AUTO) LYMPHOCYTE S/100 LEUKOCYTES IN BLOOD BY AUTOMATED COUNT 21.9 14.0 - 42.3 10/14 Specimen Type: BLOOD No comment entered. Ordering Provider: Madelaine SAHA Report Released Date/Time: Oct 15, 2023 11:05 AM Reporting Lab: [facility] [address] [facility] [address] Performing Lab: [facility] [address] [facility] [address] [facility] CBC AND DIFF (AUTO) MONOCYTES/ 100 LEUKOCYTES IN BLOOD BY AUTOMATED COUNT 7.2 5.1 - 13.7 10/14 Specimen Type: BLOOD No comment entered. Ordering Provider: Madelaine SAHA Report Released Date/Time: Oct 15, 2023 11:05 AM Reporting Lab: [facility] [address] [facility] [address] Performing Lab: [facility] [address] [facility] [address] [facility] CBC AND DIFF (AUTO) EOSINOPHIL S/100 LEUKOCYTES IN BLOOD BY AUTOMATED COUNT 2.1 0.4 - 6.8 10/14 Specimen Type: BLOOD No comment entered. Ordering Provider: Madelaine SAHA Report Released Date/Time: Oct 15, 2023 11:05 AM Reporting Lab: [facility] [address] [facility] [address] Performing Lab: [facility] [place] [facility] [address] [facility] [address] [facility] CBC AND DIFF (AUTO) BASOPHILS/ 100 LEUKOCYTES IN BLOOD BY AUTOMATED COUNT 0.6 0.1 - 2.0 10/14 Specimen Type: BLOOD No comment entered. Ordering Provider: Madelaine SAHA Report Released Date/Time: Oct 15, 2023 11:05 AM Reporting Lab: [facility] [place] [facility] [address] [facility] [address] Performing Lab: [facility] [place] [address] [address] [facility] CBC AND DIFF (AUTO) NEUTROPHIL S [#/VOLUME] IN BLOOD BY AUTOMATED COUNT 4.58 10*3/uL 2.20 - 7.60 10/14 Specimen Type: BLOOD No comment entered. Ordering Provider: Madelaine SAHA Report Released Date/Time: Oct 15, 2023 11:05 AM Reporting Lab: [facility] [place] [facility] [address] [facility] [address] Performing Lab: [facility] [place] [facility] [address] [facility] [address] [facility] CBC AND DIFF (AUTO) LYMPHOCYTE S [#/VOLUME] IN BLOOD BY AUTOMATED COUNT 1.48 10*3/uL 1.00 - 3.20 10/14 Specimen Type: BLOOD No comment entered. Ordering Provider: Madelaine SAHA Report Released Date/Time: Oct 15, 2023 11:05 AM Reporting Lab: [facility] [address] [facility] [address] Performing Lab: [facility] [address] [facility] [address] [facility] CBC AND DIFF (AUTO) EOSINOPHIL S [#/VOLUME] IN BLOOD BY AUTOMATED COUNT 0.14 10*3/uL 0.03 - 0.44 10/14 Specimen Type: BLOOD No comment entered. Ordering Provider: Madelaine SAHA Report Released Date/Time: Oct 15, 2023 11:05 AM Reporting Lab: [facility] [address] [place] [address] Performing Lab: [facility] [place] [facility] [address] [facility] [address] [facility] CBC AND DIFF (AUTO) BASOPHILS [#/VOLUME] IN BLOOD BY AUTOMATED COUNT 0.04 10*3/uL 0.01 - 0.13 10/14 Specimen Type: BLOOD No comment entered. Ordering Provider: Madelaine SAHA Report Released Date/Time: Oct 15, 2023 11:05 AM Reporting Lab: [facility] [address] [facility] [address] Performing Lab: [facility] [address] [facility] [address] [facility] CBC AND DIFF (AUTO) IMMATURE GRANULOCYT ES/100 LEUKOCYTES IN BLOOD BY AUTOMATED COUNT 0.4 0.0 - 0.7 10/14 Specimen Type: BLOOD No comment entered. Ordering Provider: Madelaine SAHA Report Released Date/Time: Oct 15, 2023 11:05 AM Reporting Lab: [facility] [place] [facility] [address] [facility] [address] Performing Lab: [facility] [place] [facility] [address] [facility] [address] [facility] CBC AND DIFF (AUTO) IMMATURE GRANULOCYT ES [#/VOLUME] IN BLOOD 0.03 10*3/uL 0.00 - 0.06 10/14 Specimen Type: BLOOD No comment entered. Ordering Provider: Madelaine SAHA Report Released Date/Time: Oct 15, 2023 11:05 AM Reporting Lab: [facility] [place] [facility] [address] [facility] [address] Performing Lab: [facility] [place] [facility] [address] [facility] [address] [facility] CBC LEUKOCYTES [#/VOLUME] IN BLOOD BY AUTOMATED COUNT 6.94 10*3/uL 4.50 - 11.00 05/24 Specimen Type: BLOOD No comment entered. Ordering Provider: Madelaine SAHA Report Released Date/Time: Apr 14, 2023 08:29 AM Reporting Lab: [facility] [place] [facility] [address] [facility] [address] Performing Lab: [facility] [place] [facility] [address] [facility] [address] [facility] CBC ERYTHROCYT ES [#/VOLUME] IN BLOOD BY AUTOMATED COUNT 4.59 10*6/uL 4.23 - 5.66 05/24 Specimen Type: BLOOD No comment entered. Ordering Provider: Madelaine SAHA Report Released Date/Time: Apr 14, 2023 08:29 AM Reporting Lab: [facility] [place] [facility] [address] [facility] [address] Performing Lab: [facility] [place] [facility] [address] [facility] [address] [facility] CBC HEMOGLOBIN [MASS/VOLU ME] IN BLOOD 12.9 g/dL 12.8 - 17 05/24 Specimen Type: BLOOD No comment entered. Ordering Provider: Madelaine SAHA Report Released Date/Time: Apr 14, 2023 08:29 AM Reporting Lab: [facility] [place] [facility] [address] [facility] [address] Performing Lab: [facility] [address] [facility] [address] [facility] [place] CBC HEMATOCRIT [VOLUME FRACTION] OF BLOOD BY AUTOMATED COUNT 40.6 39.2 - 50.4 05/24 Specimen Type: BLOOD No comment entered. Ordering Provider: Madelaine SAHA Report Released Date/Time: Apr 14, 2023 08:29 AM Reporting Lab: [facility] [place] [facility] [address] [facility] [address] Performing Lab: [facility] [place] [facility] [address] [facility] [address] [facility] [place] CBC MCV [ENTITIC VOLUME] BY AUTOMATED COUNT 88.5 fL 82 - 99 05/24 Specimen Type: BLOOD No comment entered. Ordering Provider: Madelaine SAHA Report Released Date/Time: Apr 14, 2023 08:29 AM Reporting Lab: [facility] [place] [facility] [address] [facility] [address] Performing Lab: [facility] [place] [facility] [address] [facility] [address] [facility] [place] [facility] CBC MCHC [MASS/VOLU ME] BY AUTOMATED COUNT 31.8 g/dL 30.8 - 35.1 05/24 Specimen Type: BLOOD No comment entered. Ordering Provider: Madelaine SAHA Report Released Date/Time: Apr 14, 2023 08:29 AM Reporting Lab: [facility] [place] [facility] [address] [facility] [address] Performing Lab: [facility] [place] [facility] [address] [facility] [address] [facility] [place] [facility] CBC PLATELETS [#/VOLUME] IN BLOOD BY AUTOMATED COUNT 309 10*3/uL 140 - 360 05/24 Specimen Type: BLOOD No comment entered. Ordering Provider: Madelaine SAHA Report Released Date/Time: Apr 14, 2023 08:29 AM Reporting Lab: [facility] [place] [facility] [address] [facility] [address] Performing Lab: [facility] [place] [facility] [address] [facility] [address] [facility] [place] CBC ERYTHROCYT E DISTRIBUTI ON WIDTH [RATIO] BY AUTOMATED COUNT 14.0 12.0 - 16.0 05/24 Specimen Type: BLOOD No comment entered. Ordering Provider: Madelaine SAHA Report Released Date/Time: Apr 14, 2023 08:29 AM Reporting Lab: [facility] [place] [facility] [address] [facility] [address] Performing Lab: [facility] [place] [facility] [address] [facility] [address] [facility] [place] CBC MCH [ENTITIC MASS] BY AUTOMATED COUNT 28.1 pg 26.2 - 32.6 05/24 Specimen Type: BLOOD No comment entered. Ordering Provider: Madelaine SAHA Report Released Date/Time: Apr 14, 2023 08:29 AM Reporting Lab: [facility] [place] [facility] [address] [facility] [address] Performing Lab: [facility] [place] [facility] [address] [facility] [address] [facility] [place] URINALYS IS COLOR OF URINE Light-Ye llow 05/24 Specimen Type: URINE Comment: If Glucose = >500 and Ketones are positive, please alert the Physician. Ordering Provider: Madelaine SAHA Report Released Date/Time: Apr 26, 2023 04:38 PM Reporting Lab: [facility] [place] [facility] [address] [facility] [address] Performing Lab: [facility] [place] [facility] [address] [facility] [address] [facility] URINALYS IS APPEARANCE OF URINE Clear 05/24 Specimen Type: URINE Comment: If Glucose = >500 and Ketones are positive, please alert the Physician. Ordering Provider: Madelaine SAHA Report Released Date/Time: Apr 26, 2023 04:38 PM Reporting Lab: [facility] [place] [facility] [address] [facility] [address] Performing Lab: [place] [facility] [place] [facility] [address] [facility] [address] [facility] [place] [facility] URINALYS IS GLUCOSE [MASS/VOLU ME] IN URINE NEGATIVE mg/dL 05/24 Specimen Type: URINE Comment: If Glucose = >500 and Ketones are positive, please alert the Physician. Ordering Provider: Madelaine SAHA Report Released Date/Time: Apr 26, 2023 04:38 PM Reporting Lab: [facility] [place] [address] [address] Performing Lab: [place] [facility] [place] [facility] [address] [facility] [address] [facility] [place] [facility] URINALYS IS KETONES [MASS/VOLU ME] IN URINE BY TEST STRIP NEGATIVE mg/dL 05/24 Specimen Type: URINE Comment: If Glucose = >500 and Ketones are positive, please alert the Physician. Ordering Provider: Madelaine SAHA Report Released Date/Time: Apr 26, 2023 04:38 PM Reporting Lab: [facility] [place] [facility] [address] [facility] [address] Performing Lab: [place] [facility] [place] [facility] [address] [facility] [address] [place] [facility] URINALYS IS ERYTHROCYT ES [PRESENCE] IN URINE SEDIMENT BY LIGHT MICROSCOPY NEGATIVE mg/dL 05/24 Specimen Type: URINE Comment: If Glucose = >500 and Ketones are positive, please alert the Physician. Ordering Provider: Madelaine SAHA Report Released Date/Time: Apr 26, 2023 04:38 PM Reporting Lab: [facility] [address] [facility] [address] Performing Lab: [facility] [address] [facility] [address] [facility] URINALYS IS PROTEIN [MASS/VOLU ME] IN URINE BY TEST STRIP NEGATIVE mg/dL 05/24 Specimen Type: URINE Comment: If Glucose = >500 and Ketones are positive, please alert the Physician. Ordering Provider: Madelaine SAHA Report Released Date/Time: Apr 26, 2023 04:38 PM Reporting Lab: [facility] [address] [facility] [address] Performing Lab: [facility] [place] [facility] [address] [facility] [address] [facility] [place] [facility] URINALYS IS NITRITE [PRESENCE] IN URINE NEGATIVE mg/dL 05/24 Specimen Type: URINE Comment: If Glucose = >500 and Ketones are positive, please alert the Physician. Ordering Provider: Madelaine SAHA Report Released Date/Time: Apr 26, 2023 04:38 PM Reporting Lab: [facility] [address] [facility] [address] Performing Lab: [facility] [address] [facility] [address] [facility] URINALYS IS BILIRUBIN. TOTAL [PRESENCE] IN URINE NEGATIVE mg/dL 05/24 Specimen Type: URINE Comment: If Glucose = >500 and Ketones are positive, please alert the Physician. Ordering Provider: Madelaine SAHA Report Released Date/Time: Apr 26, 2023 04:38 PM Reporting Lab: [facility] [address] [facility] [address] Performing Lab: [facility] [place] [facility] [address] [facility] [address] [facility] [place] URINALYS IS SPECIFIC GRAVITY OF URINE BY REFRACTOME TRY 1.017 1.016 - 1.022 05/24 Specimen Type: URINE Comment: If Glucose = >500 and Ketones are positive, please alert the Physician. Ordering Provider: Madelaine SAHA Report Released Date/Time: Apr 26, 2023 04:38 PM Reporting Lab: [facility] [address] [facility] [address] Performing Lab: [facility] CENTERUSE[address] [address] [facility] URINALYS IS PH OF URINE BY TEST STRIP 6.0 5.0 - 9.0 05/24 Specimen Type: URINE Comment: If Glucose = >500 and Ketones are positive, please alert the Physician. Ordering Provider: Madelaine SAHA Report Released Date/Time: Apr 26, 2023 04:38 PM Reporting Lab: [facility]ENTERUSE[address] [address] Performing Lab: [facility]ENTERUSE[facility] [address] [facility] [address] [facility]USE [facility] URINALYS IS UROBILINOG EN [MASS/VOLU ME] IN URINE BY TEST STRIP <2.0mg/d L <2.0 - 2.0 05/24 Specimen Type: URINE Comment: If Glucose = >500 and Ketones are positive, please alert the Physician. Ordering Provider: Madelaine SAHA Report Released Date/Time: Apr 26, 2023 04:38 PM Reporting Lab: [facility] [address] [facility] [address] Performing Lab: [facility]USE[facility] [address] [facility] [address] [facility]ENTERUSE [facility] URINALYS IS LEUKOCYTE ESTERASE [PRESENCE] IN URINE BY TEST STRIP NEGATIVE 05/24 Specimen Type: URINE Comment: If Glucose = >500 and Ketones are positive, please alert the Physician. Ordering Provider: Madelaine SAHA Report Released Date/Time: Apr 26, 2023 04:38 PM Reporting Lab: [facility] [place] [facility] [address] [facility] [address] Performing Lab: [facility] [place] [facility] [address] [facility] [address] [facility] [place] [facility] MICROALB UMIN CREATINI NE RATIO PANEL MICROALBUM IN/CREATIN INE [MASS RATIO] IN URINE 21.1 mg/g 0 - 29.9 05/24 Specimen Type: URINE No comment entered. Ordering Provider: Madelaine SAHA Report Released Date/Time: Apr 26, 2023 04:38 PM Reporting Lab: [facility] [place] [facility] [address] [facility] [address] Performing Lab: [facility] [place] [facility] [address] [facility] [address] [facility] [place] [facility] MICROALB UMIN CREATINI NE RATIO PANEL MICROALBUM IN [MASS/VOLU ME] IN URINE 1.9 mg/dL 05/24 Specimen Type: URINE No comment entered. Ordering Provider: Madelaine SAHA Report Released Date/Time: Apr 26, 2023 04:38 PM Reporting Lab: [facility] [place] [facility] [address] [facility] [address] Performing Lab: [facility] [place] [facility] [address] [facility] [address] [facility] [place] [facility] MICROALB UMIN CREATINI NE RATIO PANEL CREATININE [MASS/VOLU ME] IN URINE 89.96 mg/dL 05/24 Specimen Type: URINE No comment entered. Ordering Provider: Madelaine SAHA Report Released Date/Time: Apr 26, 2023 04:38 PM Reporting Lab: [facility] [place] [facility] [address] [facility] [address] Performing Lab: [facility] [place] [facility] [address] [facility] [address] [facility] [place] [facility] IRON & TIBC PANEL IRON BINDING CAPACITY [MASS/VOLU ME] IN SERUM OR PLASMA 347 ug/dL 204 - 475 05/24 Specimen Type: SERUM No comment entered. Ordering Provider: Madelaine SAHA Report Released Date/Time: Apr 26, 2023 04:38 PM Reporting Lab: [facility] [place] [facility] [address] [facility] [address] Performing Lab: [facility] [place] [facility] [address] [facility] [address] [facility] [place] [facility] IRON & TIBC PANEL IRON [MASS/VOLU ME] IN SERUM OR PLASMA 41 ug/dL 40 - 160 05/24 Specimen Type: SERUM No comment entered. Ordering Provider: Madelaine SAHA Report Released Date/Time: Apr 26, 2023 04:38 PM Reporting Lab: [facility] [place] [address] [address] Performing Lab: [facility] [place] [address] [address] [place] [facility] [place] [facility] IRON & TIBC PANEL IRON/IRON BINDING CAPACITY.T OTAL [MASS RATIO] IN SERUM OR PLASMA 11.8 20.0 - 50.0 05/24 L Specimen Type: SERUM No comment entered. Ordering Provider: Madelaine SAHA Report Released Date/Time: Apr 26, 2023 04:38 PM Reporting Lab: [facility] [place] [address] [address] Performing Lab: [facility] [place] [address] [address] [facility] [place] [facility] BASIC METABOLI C PANEL (fasting ) UREA NITROGEN [MASS/VOLU ME] IN SERUM OR PLASMA 17 mg/dL 7 - 25 05/24 Specimen Type: SERUM No comment entered. Ordering Provider: Madelaine SAHA Report Released Date/Time: Apr 26, 2023 04:38 PM Reporting Lab: [facility] [place] [address] [address] Performing Lab: [facility] [place] [facility] [address] [facility] [address] [facility]TRN [facility]ENTERUSE [facility] BASIC METABOLI C PANEL (fasting ) GLUCOSE [MASS/VOLU ME] IN SERUM OR PLASMA 95 mg/dL 65 - 100 05/24 Specimen Type: SERUM No comment entered. Ordering Provider: Madelaine SAHA Report Released Date/Time: Apr 26, 2023 04:38 PM Reporting Lab: [facility]ITALTRN [facility]ENTERUSE[facility] [address] [facility] [address] Performing Lab: [facility]ITALTRN [facility]ENTERUSE[facility] [address] [facility] [address] [facility] BASIC METABOLI C PANEL (fasting ) SODIUM [MOLES/VOL UME] IN SERUM OR PLASMA 142 mmol/L 135 - 145 05/24 Specimen Type: SERUM No comment entered. Ordering Provider: Madelaine SAHA Report Released Date/Time: Apr 26, 2023 04:38 PM Reporting Lab: [facility]ITALTRN [facility] [address] [facility] [address] Performing Lab: [facility]FLINTRENCOM[facility] MONTGOMERYN [facility]ENTERUSEGL[facility] [address] [facility] [address] [facility] BASIC METABOLI C PANEL (fasting ) POTASSIUM [MOLES/VOL UME] IN SERUM OR PLASMA 4.8 mmol/L 3.5 - 5.0 05/24 Specimen Type: SERUM No comment entered. Ordering Provider: Madelaine SAHA Report Released Date/Time: Apr 26, 2023 04:38 PM Reporting Lab: [facility] [address] [facility] [address] Performing Lab: [facility]ITALTRN [facility]ENTERUSE[facility] [address] [facility] [address] [facility]USE [facility] BASIC METABOLI C PANEL (fasting ) CHLORIDE [MOLES/VOL UME] IN SERUM OR PLASMA 107 mmol/L 100 - 110 05/24 Specimen Type: SERUM No comment entered. Ordering Provider: Madelaine SAHA Report Released Date/Time: Apr 26, 2023 04:38 PM Reporting Lab: [facility] [place] [facility] [address] [facility] [address] Performing Lab: [place] [facility] [facility] [facility]ENTERUSETS [facility] [address] [facility] [address] [place] [facility] [place] [facility] BASIC METABOLI C PANEL (fasting ) CARBON DIOXIDE, TOTAL [MOLES/VOL UME] IN SERUM OR PLASMA 24 meq/L 20 - 30 05/24 Specimen Type: SERUM No comment entered. Ordering Provider: Madelaine SAHA Report Released Date/Time: Apr 26, 2023 04:38 PM Reporting Lab: [place] [facility] [facility] [facility] [address] [facility] [address] Performing Lab: [place] [facility] [facility] [facility]ENTERUSE[address] [address] [facility] W[facility] CENTERUSE [facility] BASIC METABOLI C PANEL (fasting ) CREATININE [MASS/VOLU ME] IN SERUM OR PLASMA 1.49 mg/dL 0.50 - 1.40 05/24 H Specimen Type: SERUM No comment entered. Ordering Provider: Madelaine SAHA Report Released Date/Time: Apr 26, 2023 04:38 PM Reporting Lab: [place] [facility] [facility] [address] [facility] [address] Performing Lab: [place] [facility] [facility] [facility] CENTERUSETS [address] [address] [place] [facility] [facility]ENTERUSE [facility] BASIC METABOLI C PANEL (fasting ) GLOMERULAR FILTRATION RATE/1.73 SQ M.PREDICTE D [VOLUME RATE/AREA] IN SERUM, PLASMA OR BLOOD BY CREATININE -BASED FORMULA (CKD-EPI 2020) 48 mL/min 60 05/24 L Specimen Type: SERUM No comment entered. Ordering Provider: Madelaine SAHA Report Released Date/Time: Apr 26, 2023 04:38 PM Reporting Lab: [place] [facility] [facility] [address] [facility] [address] Performing Lab: [place] [facility] [facility] [facility] CENTERUSETS [address] [address] [facility] [place] [facility] Vital Signs Combined list of inpatient [...] [facility] [place] En[facility] [id number] 07/23 [facility] En[facility] [id number] 08/10 [facility] [place] QNHP OL DIG ASSMT&MGMT 5-10 [id number] Diagnos is: ICD-10- CM S91.009 A Unspeci fied open wound, unspeci fied ankle, initial encount er MAURILIO,KATY GRIFFITHS J 08/16 [facility] [place] [facility] Outpatient Encounter [id number] Diagnos is: ICD-10- CM F43.10 Post-tr aumatic stress disorde r, unspeci fied FEARING,VA YVONNE A 09/20 [facility] Outpatient Encounter [id number] FEARING,VA CHAEL A 09/20 [facility] Outpatient Encounter [id number] 10/04 [facility] OFFICE O/P EST LOW 20 MIN [id number] Diagnos is: ICD-10- CM J44.9 Chronic obstruc tive pulmona ry disease , unspeci fied VALENTÍN SAHA F 10/21 [facility] OFF/OP EST MAY X REQ PHY/QHP [id number] Diagnos is: ICD-10- CM I10 Essenti al (primar y) hyperte nsDionna Pierre 10/24 [facility] COMPRE OPH EXAM NEW PT 1/> [id number] Diagnos is: ICD-10- CM H40.013 Open angle with borderl ine finding s, low risk, bilater al MARIAHPARVEZ HAMLIN 10/24 [facility] ECHO EXAM OF EYE THICKNESS [id number] Diagnos is: ICD-10- CM H40.013 Open angle with borderl ine finding s, low risk, bilater al PARVEZ LEMUS 10/24 [facility] FIT SPECTACLES MULTIFOCAL [id number] Diagnos is: ICD-10- CM Z46.0 Encount er for fit/adj st of spectac les and contact lenses PARVEZ LEMUS 10/25 [facility] Out[facility] Encounter [id number] 10/25 [facility] [id number] 11/22 [facility] En[facility] [id number] 11/23 [facility] [facility] [id number] 12/07 [facility] [id number] 12/09 [facility] [id number] 12/09 [facility] En[facility] [id number] 01/23 [facility] QNHP OL DIG ASSMT&MGMT 5-10 [id number] Diagnos is: ICD-10- CM Z12.2 Encntr screen for maligna nt neoplas m of respira tory organs REBEKAH TEJEDACA L 01/23 [facility] En[facility] [id number] 01/31 [facility] [id number] 05/11 [facility] En[facility] [id number] 05/16 [facility] QNHP OL DIG ASSMT&MGMT 5-10 [id number] 1. Diagnos is: ICD-10- CM R52 Pain, unspeci fied CALLIE,LAURA A 05/26 [facility] En[facility] [id number] [facility] En[facility] [id number] 08/09 [facility] OFFICE O/P EST HI 40 MIN [id number] Diagnos is: ICD-10- CM H40.013 Open angle with borderl ine finding s, low risk, bilater al ISABELL BARRY H B 09/07 [facility] FIT SPECTACLES MULTIFOCAL [id number] ISABELL BARRY H B 09/07 [facility] Encounter [id number] 10/09 [facility] Outpatient Encounter [id number] 10/16 [facility] Outpatient Encounter [id number] 10/19 [facility] [place] OFFICE O/P EST LOW 20 MIN [id number] Diagnos is: ICD-10- CM M35.00 Sjogren syndrom e, unspeci fied VALENTÍN SAHA F 10/20 [facility] [place] [place] Social History Combined list of available smoking, tobacco, and other social history from Department of Defense and Veterans Affairs facilities. Social History Type Response Date Comment Sourc e Tobacco smoking status NHIS [place]-TOBACCO USE FORMER CIGARETTES 06/01/2024 [facility] [place] [facility] of [facility] 06/01/2024 [facility] [place] [facility] History of tobacco use TX-TOBACCO FORMER USER 01/22/2023 [facility] [place] [facility] History of tobacco use TX-TOBACCO FORMER USER 02/17/2022 [facility] [place] [facility] History of tobacco use TX-TOBACCO QUIT 1 TO < 5 YRS 06/22/2019 [place] Plan of Care List of future care activities from Department of Veterans Affairs facilities. Additional future care activities may be listed in the Assessment and Plan section. Date/Time Care Activity Care Activity Detail Facili ty 11/29/2024 AMBULAT[facility] - MEDICINE [facility] Advance Directives List of completed, amended, or rescinded Advance Directives on record at Department of Veterans Affairs facilities. An actual copy of the Directive is not included. Date Advance Directive Provider Source 10/26/2023 ADVANCE DIRECTIVE MARGARITA KRAFT [facility]
== END 2024-11-27 11:26 | disposition home or self-care (01) ==
LOC: HO.PMC 11:02
PROVIDERS: PCP Internal Medicine; Visit Provider Nurse Practitioner Family
DX: G89.29 Other chronic pain (principal); M79.605 Pain in left leg; G62.9 Polyneuropathy, unspecified; Z79.891 Long term (current) use of opiate analgesic; S81.802A Unspecified open wound, left lower leg, initial encounter; L88 Pyoderma gangrenosum
CPT/HCPCS: 99213; G2211

== ENCOUNTER 2024-11-27 11:01 | Outpatient (REF) | payer MEDICARE, SELFPAY ==
[2024-11-27 11:54] LABS: MANUAL DIFF FLAG NO
--- OUTSIDE RECORDS SUMMARY | 2024-11-27 12:29 | XMS_ITS | Clinical Summary ---
Author Organization [facility] Facility Address [address] [place] [id number] Care Team Providers Care Ict Developer Name Role Phone Kia Stroud MD Primary Care Provider [phone] Social History Tobacco Use Types Packs/Day Years [...] Insurance [employer] Care Teams Ict Developer Relationship Specialty Start Date End Date Kia Stroud MD [facility] [address] [place], [place] PCP - General Internal Medicine 12/04/21
--- OUTSIDE RECORDS SUMMARY | 2024-11-27 12:30 | XMS_ITS | Continuity of Care Document ---
Author Name [facility] Organization [facility] Care Team Providers Care Pattern Worker Name Role Phone [facility] Unavailable Unavailable Problems Combined list of problems [...] COPD - Chronic Obstructive Pulmonary Disease (SCT [id number]) Active Condition [facility] Deep venous thrombosis of upper extremity Active Condition Feb 18, 2022 Entered By: MESFIN SAHA Comment: Left [facility] Depression (SCT [id number]) Active Condition [facility] Exposure to potentially hazardous substance Active Condition Oct 07, 2023 Entered By: COL BHARATHI ADAME Comment: ILIANA Screening Snomed Code connected 01/22/23 [facility] H/O: rheumatoid arthritis Active Condition [facility] Hypertension Active Condition [facility] Moderate protein-calorie malnutrition (weight for age 60-74 percent of standard) Active Condition [facility] PE - Pulmonary Embolism (SCT [id number]) Active Condition [facility] Pyoderma gangrenosum Active Condition [facility] Rheumatoid arthritis Active Condition [facility] Sjogren syndrome Active Condition [facility] Venous ulcer Active Condition [facility] [place] [facility] Diagnosis: ICD-10-CM M35.00 Sjogren syndrome, unspecified Active Diagnosis [facility] Diagnosis: ICD-10-CM H40.013 Open angle with borderline findings, low risk, bilateral Active Diagnosis [facility] [place] [facility] Diagnosis: ICD-10-CM R52 Pain, unspecified Active Diagnosis [facility] Diagnosis: ICD-10-CM Z12.2 Encntr screen for malignant neoplasm of respiratory organs [facility] Diagnosis: ICD-10-CM Z46.0 Encounter for fit/adjst of spectacles and contact lenses Active Diagnosis [facility] Diagnosis: ICD-10-CM I10 Essential (primary) hypertension [facility] Diagnosis: ICD-10-CM J44.9 Chronic obstructive pulmonary disease, unspecified Active Diagnosis [facility] [place] [facility] Diagnosis: ICD-10-CM F43.10 Post-traumatic stress disorder, unspecified Active Diagnosis [facility] [place] [facility] Diagnosis: ICD-10-CM S91.009A Unspecified open [...] MOUTH PRN ORAL ACTIVE VALENT[facility]N [facility] ALBUTEROL 90MCG/ACTUA T (CFC-F) INHL,ORAL,8 .5GM DOSE COUNTER INHALE 2 PUFFS BY MOUTH EVERY 6 HOURS NEEDED RESPIR ATORY (INHAL ATION) ACTIVE VALENTÍN SAHA 2022 [facility] [place] [facility] CALCIUM CARBONATE TAB TAKE ACTIVE SERGEY MG HI 2018 [place] CHOLECALCIF MELISSA (VIT D3) TAB TAKE EVERY DAY ACTIVE [place]GEY MG HI [place] DULOXETINE HCL 20MG CAP,EC TAKE 1 CAPSULE BY MOUTH AT BEDTIME ORAL ACTIVE VALENTÍN SAHA 2022 [facility] ETANERCEPT 50MG INJ,SOLN INJECT UNDER THE SKIN SUBCUT ANEOUS ACTIVE SERGEY MG HI 2018 [place] FAMOTIDINE TAB TAKE [facility]IVE [facility] 2019 [place] FLUTICASONE PROPIONATE 50MCG/SPRAY SOLN,NASAL, 16GM INSTILL 2 SPRAYS INTO EACH NOSTRIL ONCE DAILY NASAL ACTIVE MARIA AVALENTÍN Berry 2022 [facility] GABAPENTIN 300MG CAP TAKE 2 CAPSULES BY MOUTH EVERY EVENING AND TAKE 4 CAPSULES BY MOUTH AT BEDTIME ORAL ACTIVE MARIA AVALENTÍN 2022 [email or web address] [place] [facility] HYDROCHLORO THIAZIDE TAB TAKE EVERY DAY [facility] 2019 [place] HYDROMORPHO NE HCL 2MG TAB TAKE ONE TABLET BY MOUTH THREE TIMES DAILY NEEDED ORAL ACTIVE MARIA AVALENTÍN Berry 2022 [facility] IBUPROFEN TAB TAKE PRN ACTIVE MONISERGEY MORAN HI 2018 [place] METOPROLOL TARTRATE 25MG TAB TAKE ONE TABLET BY MOUTH TWICE DAILY ORAL ACTIVE MARIA AVALENTÍN 2022 [facility] [place] MULTIVITAMI N & MINERALS TAB TAKE EVERY DAY ACTIVE MONISERGEY MORAN HI 2018 [place] NALOXONE HCL 4MG/SPRAY SOLN,SPRAY, NASAL INSTILL 1 SPRAY ONE NOSTRIL ONE TIME PRN NASAL ACTIVE ALONDRADEBORAHBEBEVALENTÍN 2022 [facility] [place] [facility] PREDNISONE (LOOK ALIKE/SOUND ALIKE) TAB TAKE BY MOUTH ORAL ACTIVE SERGEY MG HI 2019 [place] [facility] 10MG TAB TAKE ONE TABLET BY MOUTH ONCE DAILY ORAL ACTIVE MARIA AVALENTÍN 2022 [email or web address] [place] [facility] SODIUM CHLORIDE 0.9% (PF) INJ,SYRINGE ,10ML INJECT 1 SYRINGE IV PUSH ONCE DAILY INTRAV ENOUS DISCONT INUED (EDIT) 04/28/2024 [id number] RAMBIDEON DESAIITRI 2023 30 [facility] [place] [facility] SODIUM CHLORIDE 0.9% (PF) INJ,SYRINGE ,10ML INJECT 1 SYRINGE IV PUSH DIRECTED BY PROVIDER INTRAV ENOUS DISCONT INUED (EDIT) 02/18/2024 [id number] CHANGSSLIN OglesbyDAVID 2023 30 [facility] SODIUM CHLORIDE 0.9% (PF) INJ,SYRINGE ,10ML INJECT 1 SYRINGE DIRECTED BY PROVIDER ONCE DAILY NOT APPLIC ABLE 04/30/2024 [id number] 4 BLANKABISSLIN OglesbyDAVID 2023 30 [facility] SODIUM CHLORIDE 0.9% (PF) INJ,SYRINGE ,10ML APPLY 1 SYRINGE TOPICALL Y DIRECTED BY PROVIDER TOPICA L 03/02/2024 [id number] 4 CHANGSSLIN OglesbyDAVID 2023 30 [facility] SODIUM CHLORIDE 0.9% SOLN,IRRG IRRIGATE UDP TOPICALL Y ONCE DAILY TOPICA L DISCONT INUED (EDIT) 08/25/2024 [id number] 5 BLANKABISSLIN Oglesby,DAVID 2024 1000 [facility] SODIUM CHLORIDE 0.9% SOLN,IRRG IRRIGATE UDP TOPICALL Y EVERY OTHER DAY TOPICA L DISCONT INUED (EDIT) 10/01/2023 [id number] 4 CHANGSSLIN OglesbyDAVID 2023 1000 [facility] SODIUM CHLORIDE 0.9% SOLN,IRRG IRRIGATE DIRECTED TOPICALL Y ONCE DAILY TOPICA L 08/31/2024 [id number] 5 RAMBISSOO MendelDAVID 2024 1000 [facility] SODIUM CHLORIDE 0.9% SOLN,IRRG IRRIGATE DIRECTED TOPICALL Y EVERY OTHER DAY TOPICA L 10/03/2023 [id number] 4 BLANKABISSLIN OglesbyDAVID 2023 1000 [facility] UMECLIDINIU M 62.5MCG/YARELY ANTEROL 25MCG/ACTUA T INH,ORAL,30 D INHALE 1 INHALATI ON BY MOUTH ONCE DAILY RESPIR ATORY (INHAL ATION) ACTIVE VALENTÍN SAHA 2022 [facility] UPADACITINI B 15MG 24HR TAB,SA TAKE ONE TABLET BY MOUTH ONCE DAILY ORAL ACTIVE ALONDRAVALENTÍN HARDY 2022 [facility] Allergies, Adverse Reactions, Alerts Combined list of allergies from Department of Defense and Veterans Affairs facilities. It does not include entries that were removed or entered in error. Substance Category Reaction Severity Reaction type Status Date Reported Comments Source HEPARIN Propensity to adverse reactions to drug (finding) Cardiac arrest SEVERE active 3 [facility] Immunizations Combined list of available immunizations from the Department of Defense and Veterans Affairs facilities. Immunization Series Date Given Administered By Site Reaction Lot Number CVX Code Drug Planer Stone Status Comments Source INFLUENZA, UNSPECIFIED FORMULATION 2023 88 complet ed Booster for Series, HISTORICA L INFORMATI ON - FROM OTHER PROVIDER, [facility] PNEUMOCOCCAL CONJUGATE PCV20, POLYSACCHARID E [id number] CONJUGATE, ADJUVANT, PF 2023 ROXANNA VILLALBA E LEFT DELTO ID [id number] 216 complet ed Booster for Series, ADMINISTE RED AT [facility] TDAP 2023 ROXANNA VILLALBA LEFT DELTO ID [id number] 115 complet ed Booster for Series, ADMINISTE RED AT [facility] INFLUENZA, UNSPECIFIED FORMULATION 2022 88 complet ed Booster for Series, HISTORICA L INFORMATI ON - FROM OTHER PROVIDER, [facility] COVID-19 (MODERNA), MRNA, LNP-S, BIVALENT, PF, 50 MCG/0.5 ML OR 25MCG/0.25 ML DOSE 1 2021 229 complet ed HISTORICA L INFORMATI ON - FROM OTHER PROVIDER, [facility] INFLUENZA VACCINE, QUADRIVALENT, ADJUVANTED 2021 205 complet ed [email or web address] [place] [facility] [facility] COVID-19 (MODERNA), MRNA, LNP-S, PF, 100 MCG/0.5ML DOSE OR 50 MCG/0.25ML DOSE 3 2020 207 complet ed [facility] [place] [facility] [facility] INFLUENZA, UNSPECIFIED FORMULATION 2020 88 complet ed [facility] [place] [facility] [facility] COVID-19 (MODERNA), MRNA, LNP-S, PF, 100 MCG/0.5 ML DOSE 2 2020 207 complet ed MOD; [id number]; 1 [place] COVID-19 (MODERNA), MRNA, LNP-S, PF, 100 MCG/0.5 ML DOSE 1 2020 207 complet ed MOD; [id number]; 1 [place] INFLUENZA, TRIVALENT, ADJUVANTED 2018 NONE 168 complet ed [place] PNEUMOCOCCAL CONJUGATE PCV 13 2017 133 complet ed [facility] PNEUMOCOCCAL POLYSACCHARID E [id number] 2015 33 complet ed [facility] Results Combined list of recent chemistry, [...] Oct 15, 2023 11:05 AM Reporting Lab: [address] [address] Performing Lab: [address] [address] [facility] BASIC METABOLI C PANEL (fasting ) GLUCOSE [MASS/VOLU ME] IN SERUM OR PLASMA 95 mg/dL 65 - 100 10/14 Specimen Type: SERUM No comment entered. Ordering Provider: Madelaine SAHA Report Released Date/Time: Oct 15, 2023 11:05 AM Reporting Lab: [facility] [place] [facility] [address] [facility] [address] Performing Lab: [facility] [place] [facility] [address] [facility] [address] [facility] [place] [facility] BASIC METABOLI C PANEL (fasting ) SODIUM [MOLES/VOL UME] IN SERUM OR PLASMA 141 mmol/L 135 - 145 10/14 Specimen Type: SERUM No comment entered. Ordering Provider: Madelaine SAHA Report Released Date/Time: Oct 15, 2023 11:05 AM Reporting Lab: [facility] [place] [facility] [address] [facility] [address] Performing Lab: [facility] [place] [address] [address] [facility] [facility] BASIC METABOLI C PANEL (fasting ) POTASSIUM [MOLES/VOL UME] IN SERUM OR PLASMA 4.2 mmol/L 3.5 - 5.0 10/14 Specimen Type: SERUM No comment entered. Ordering Provider: Madelaine SAHA Report Released Date/Time: Oct 15, 2023 11:05 AM Reporting Lab: [facility] [place] [facility] [address] [facility] [address] Performing Lab: [facility] [place] [address] [address] [facility] [facility] BASIC METABOLI C PANEL (fasting ) CHLORIDE [MOLES/VOL UME] IN SERUM OR PLASMA 106 mmol/L 100 - 110 10/14 Specimen Type: SERUM No comment entered. Ordering Provider: Madelaine SAHA Report Released Date/Time: Oct 15, 2023 11:05 AM Reporting Lab: [facility] [place] [facility] [address] [facility] [address] Performing Lab: [facility] [place] [address] [address] [facility] [place] [facility] BASIC METABOLI C PANEL (fasting ) CARBON DIOXIDE, TOTAL [MOLES/VOL UME] IN SERUM OR PLASMA 25 meq/L 20 - 30 10/14 Specimen Type: SERUM No comment entered. Ordering Provider: Madelaine SAHA Report Released Date/Time: Oct 15, 2023 11:05 AM Reporting Lab: [facility] [address] [address] Performing Lab: [facility] [address] [address] [facility] BASIC METABOLI C PANEL (fasting ) CREATININE [MASS/VOLU ME] IN SERUM OR PLASMA 1.37 mg/dL 0.50 - 1.40 10/14 Specimen Type: SERUM No comment entered. Ordering Provider: Madelaine SAHA Report Released Date/Time: Oct 15, 2023 11:05 AM Reporting Lab: [facility] [address] [address] Performing Lab: [facility] [address] [address] [facility] BASIC METABOLI C PANEL (fasting ) GLOMERULAR FILTRATION RATE/1.73 SQ M.PREDICTE D [VOLUME RATE/AREA] IN SERUM, PLASMA OR BLOOD BY CREATININE -BASED FORMULA (CKD-EPI 2020) 53 mL/min 60 10/14 L Specimen Type: SERUM No comment entered. Ordering Provider: Madelaine SAHA Report Released Date/Time: Oct 15, 2023 11:05 AM Reporting Lab: [facility] [address] [address] Performing Lab: [address] [address] [facility] CBC AND DIFF (AUTO) LEUKOCYTES [#/VOLUME] IN BLOOD BY AUTOMATED COUNT 6.76 10*3/uL 4.50 - 11.00 10/14 Specimen Type: BLOOD No comment entered. Ordering Provider: Madelaine SAHA Report Released Date/Time: Oct 15, 2023 11:05 AM Reporting Lab: [facility] [address] [facility] [address] Performing Lab: [facility] [place] [facility] [address] [facility] [address] [facility] CBC AND DIFF (AUTO) ERYTHROCYT ES [#/VOLUME] IN BLOOD BY AUTOMATED COUNT 5.57 10*6/uL 4.23 - 5.66 10/14 Specimen Type: BLOOD No comment entered. Ordering Provider: Madelaine SAHA Report Released Date/Time: Oct 15, 2023 11:05 AM Reporting Lab: [facility] [place] [facility] [address] [facility] [address] Performing Lab: [facility] [place] [facility] [address] [facility] [address] [facility] CBC AND DIFF (AUTO) HEMOGLOBIN [MASS/VOLU ME] IN BLOOD 14.9 g/dL 12.8 - 17 10/14 Specimen Type: BLOOD No comment entered. Ordering Provider: Madelaine SAHA Report Released Date/Time: Oct 15, 2023 11:05 AM Reporting Lab: [facility] [place] [facility] [address] [facility] [address] Performing Lab: [facility] [place] [facility] [address] [facility] [address] [facility] CBC AND DIFF (AUTO) HEMATOCRIT [VOLUME FRACTION] OF BLOOD BY AUTOMATED COUNT 47.5 39.2 - 50.4 10/14 Specimen Type: BLOOD No comment entered. Ordering Provider: Madelaine SAHA Report Released Date/Time: Oct 15, 2023 11:05 AM Reporting Lab: [facility] [place] [facility] [address] [facility] [address] Performing Lab: [facility] [place] [facility] [address] [facility] [address] [facility] CBC AND DIFF (AUTO) MCV [ENTITIC VOLUME] BY AUTOMATED COUNT 85.3 fL 82 - 99 10/14 Specimen Type: BLOOD No comment entered. Ordering Provider: Madelaine SAHA Report Released Date/Time: Oct 15, 2023 11:05 AM Reporting Lab: [facility] [place] [facility] [address] [facility] [address] Performing Lab: [facility] [place] [facility] [address] [facility] [address] [facility] [place] [facility] CBC AND DIFF (AUTO) MCHC [MASS/VOLU ME] BY AUTOMATED COUNT 31.4 g/dL 30.8 - 35.1 10/14 Specimen Type: BLOOD No comment entered. Ordering Provider: Madelaine SAHA Report Released Date/Time: Oct 15, 2023 11:05 AM Reporting Lab: [facility] [place] [address] [address] Performing Lab: [facility] [place] [address] [address] [facility] CBC AND DIFF (AUTO) PLATELETS [#/VOLUME] IN BLOOD BY AUTOMATED COUNT 243 10*3/uL 140 - 360 10/14 Specimen Type: BLOOD No comment entered. Ordering Provider: Madelaine SAHA Report Released Date/Time: Oct 15, 2023 11:05 AM Reporting Lab: [facility] [place] [facility] [address] [facility] [address] Performing Lab: [facility] [place] [facility] [address] [facility] [address] [facility] [place] [facility] CBC AND DIFF (AUTO) ERYTHROCYT E DISTRIBUTI ON WIDTH [RATIO] BY AUTOMATED COUNT 15.0 12.0 - 16.0 10/14 Specimen Type: BLOOD No comment entered. Ordering Provider: Madelaine SAHA Report Released Date/Time: Oct 15, 2023 11:05 AM Reporting Lab: [facility] [place] [address] [address] Performing Lab: [facility] [address] [facility] [address] [facility] CBC AND DIFF (AUTO) MONOCYTES [#/VOLUME] IN BLOOD BY AUTOMATED COUNT 0.49 10*3/uL 0.30 - 1.10 10/14 Specimen Type: BLOOD No comment entered. Ordering Provider: Madelaine SAHA Report Released Date/Time: Oct 15, 2023 11:05 AM Reporting Lab: [facility] [address] [facility] [address] Performing Lab: [facility] [address] [facility] [address] [facility] CBC AND DIFF (AUTO) MCH [ENTITIC MASS] BY AUTOMATED COUNT 26.8 pg 26.2 - 32.6 10/14 Specimen Type: BLOOD No comment entered. Ordering Provider: Madelaine SAHA Report Released Date/Time: Oct 15, 2023 11:05 AM Reporting Lab: [facility] [address] [facility] [address] Performing Lab: [facility] [address] [facility] [address] [facility] CBC AND DIFF (AUTO) NEUTROPHIL S/100 LEUKOCYTES IN BLOOD BY AUTOMATED COUNT 67.8 43.7 - 75.8 10/14 Specimen Type: BLOOD No comment entered. Ordering Provider: Madelaine SAHA Report Released Date/Time: Oct 15, 2023 11:05 AM Reporting Lab: [facility] [address] [facility] [address] Performing Lab: [facility] [address] [facility] [address] [facility] CBC AND DIFF (AUTO) LYMPHOCYTE S/100 LEUKOCYTES IN BLOOD BY AUTOMATED COUNT 21.9 14.0 - 42.3 10/14 Specimen Type: BLOOD No comment entered. Ordering Provider: Madelaine SAHA Report Released Date/Time: Oct 15, 2023 11:05 AM Reporting Lab: [facility] [address] [facility] [address] Performing Lab: [facility] [address] [facility] [address] [facility] CBC AND DIFF (AUTO) MONOCYTES/ 100 LEUKOCYTES IN BLOOD BY AUTOMATED COUNT 7.2 5.1 - 13.7 10/14 Specimen Type: BLOOD No comment entered. Ordering Provider: Madelaine SAHA Report Released Date/Time: Oct 15, 2023 11:05 AM Reporting Lab: [facility] [address] [facility] [address] Performing Lab: [facility] [address] [facility] [address] [facility] CBC AND DIFF (AUTO) EOSINOPHIL S/100 LEUKOCYTES IN BLOOD BY AUTOMATED COUNT 2.1 0.4 - 6.8 10/14 Specimen Type: BLOOD No comment entered. Ordering Provider: Madelaine SAHA Report Released Date/Time: Oct 15, 2023 11:05 AM Reporting Lab: [facility] [facility] [address] [facility] [address] Performing Lab: [facility] [place] [facility] [address] [facility] [address] [facility] CBC AND DIFF (AUTO) BASOPHILS/ 100 LEUKOCYTES IN BLOOD BY AUTOMATED COUNT 0.6 0.1 - 2.0 10/14 Specimen Type: BLOOD No comment entered. Ordering Provider: Madelaine SAHA Report Released Date/Time: Oct 15, 2023 11:05 AM Reporting Lab: [facility] [facility] [address] [facility] [address] Performing Lab: [facility] [address] [facility] [address] [facility] CBC AND DIFF (AUTO) NEUTROPHIL S [#/VOLUME] IN BLOOD BY AUTOMATED COUNT 4.58 10*3/uL 2.20 - 7.60 10/14 Specimen Type: BLOOD No comment entered. Ordering Provider: Madelaine SAHA Report Released Date/Time: Oct 15, 2023 11:05 AM Reporting Lab: [facility] [place] [facility] [address] [facility] [address] Performing Lab: [facility] [place] [address] [address] [facility] CBC AND DIFF (AUTO) LYMPHOCYTE S [#/VOLUME] IN BLOOD BY AUTOMATED COUNT 1.48 10*3/uL 1.00 - 3.20 10/14 Specimen Type: BLOOD No comment entered. Ordering Provider: Madelaine SAHA Report Released Date/Time: Oct 15, 2023 11:05 AM Reporting Lab: [facility] [place] [address] [address] Performing Lab: [facility] [place] [address] [address] [facility] [place] [facility] CBC AND DIFF (AUTO) EOSINOPHIL S [#/VOLUME] IN BLOOD BY AUTOMATED COUNT 0.14 10*3/uL 0.03 - 0.44 10/14 Specimen Type: BLOOD No comment entered. Ordering Provider: Madelaine SAHA Report Released Date/Time: Oct 15, 2023 11:05 AM Reporting Lab: [facility] [place] [address] [address] Performing Lab: [facility] [place] [address] [address] [facility] CBC AND DIFF (AUTO) BASOPHILS [#/VOLUME] IN BLOOD BY AUTOMATED COUNT 0.04 10*3/uL 0.01 - 0.13 10/14 Specimen Type: BLOOD No comment entered. Ordering Provider: Madelaine SAHA Report Released Date/Time: Oct 15, 2023 11:05 AM Reporting Lab: [facility] [place] [address] [address] Performing Lab: [facility] [place] [facility] [address] [facility] [address] [facility] [facility] CBC AND DIFF (AUTO) IMMATURE GRANULOCYT ES/100 LEUKOCYTES IN BLOOD BY AUTOMATED COUNT 0.4 0.0 - 0.7 10/14 Specimen Type: BLOOD No comment entered. Ordering Provider: Madelaine SAHA Report Released Date/Time: Oct 15, 2023 11:05 AM Reporting Lab: [facility] [address] [facility] [address] Performing Lab: [facility] [place] [facility] [address] [facility] [address] [facility] [place] [facility] CBC AND DIFF (AUTO) IMMATURE GRANULOCYT ES [#/VOLUME] IN BLOOD 0.03 10*3/uL 0.00 - 0.06 10/14 Specimen Type: BLOOD No comment entered. Ordering Provider: Madelaine SAHA Report Released Date/Time: Oct 15, 2023 11:05 AM Reporting Lab: [facility] [place] [facility] [address] [facility] [address] Performing Lab: [facility] [place] [facility] [address] [facility] [address] [facility] IRON & TIBC PANEL IRON BINDING CAPACITY [MASS/VOLU ME] IN SERUM OR PLASMA 338 ug/dL 204 - 475 10/14 Specimen Type: SERUM No comment entered. Ordering Provider: Madelaine SAHA Report Released Date/Time: Oct 15, 2023 11:05 AM Reporting Lab: [facility] [place] [facility] [address] [facility] [address] Performing Lab: [facility] [place] [facility] [address] [facility] [address] [facility] [facility] IRON & TIBC PANEL IRON [MASS/VOLU ME] IN SERUM OR PLASMA 51 ug/dL 40 - 160 10/14 Specimen Type: SERUM No comment entered. Ordering Provider: Madelaine SAHA Report Released Date/Time: Oct 15, 2023 11:05 AM Reporting Lab: [facility] [place] [facility] [address] [facility] [address] Performing Lab: [facility] [place] [facility] [address] [address] [facility] [place] [facility] IRON & TIBC PANEL IRON/IRON BINDING CAPACITY.T OTAL [MASS RATIO] IN SERUM OR PLASMA 15.1 20.0 - 50.0 10/14 L Specimen Type: SERUM No comment entered. Ordering Provider: Madelaine SAHA Report Released Date/Time: Oct 15, 2023 11:05 AM Reporting Lab: [facility] [place] [facility] [address] [facility] [address] Performing Lab: [facility] [place] [facility] [address] [facility] [address] [facility] [place] [facility] LIPID PANEL FASTING CHOLESTERO L [MASS/VOLU ME] IN SERUM OR PLASMA 179 mg/dL 10/14 Specimen Type: SERUM No comment entered. Ordering Provider: Madelaine SAHA Report Released Date/Time: Oct 15, 2023 11:05 AM Reporting Lab: [facility] [place] [facility] [address] [facility] [address] [address] Performing Lab: [facility] [place] [facility] [address] [facility] [address] [facility] [place] [facility] LIPID PANEL FASTING TRIGLYCERI DE [MASS/VOLU ME] IN SERUM OR PLASMA 123 mg/dL 0 - 150 10/14 Specimen Type: SERUM No comment entered. Ordering Provider: Madelaine SAHA Report Released Date/Time: Oct 15, 2023 11:05 AM Reporting Lab: [facility] [place] [facility] [address] [facility] [address] Performing Lab: [facility] [place] [facility] [address] [facility] [address] [facility] [place] [facility] LIPID PANEL FASTING CHOLESTERO L IN LDL [MASS/VOLU ME] IN SERUM OR PLASMA BY CALCULATIO N 111 mg/dL 0 - 129 10/14 Specimen Type: SERUM No comment entered. Ordering Provider: Madelaine SAHA Report Released Date/Time: Oct 15, 2023 11:05 AM Reporting Lab: [facility] [place] [facility] [address] [facility] [address] Performing Lab: [facility] [place] [address] [address] [facility] [place] [facility] LIPID PANEL FASTING CHOLESTERO L.TOTAL/CH OLESTEROL IN HDL [MASS RATIO] IN SERUM OR PLASMA 4.2 10/14 Specimen Type: SERUM No comment entered. Ordering Provider: Madelaine SAHA Report Released Date/Time: Oct 15, 2023 11:05 AM Reporting Lab: [facility] [address] [address] Performing Lab: [facility] [place] [address] [address] [facility] [place] [facility] LIPID PANEL FASTING CHOLESTERO L IN HDL [MASS/VOLU ME] IN SERUM OR PLASMA 43 mg/dL 40 - 60 10/14 Specimen Type: SERUM No comment entered. Ordering Provider: Madelaine SAHA Report Released Date/Time: Oct 15, 2023 11:05 AM Reporting Lab: [facility] [place] [address] [address] Performing Lab: [facility] [place] [address] [address] [facility] [place] [facility] LIVER FUNCTION PROTEIN [MASS/VOLU ME] IN SERUM OR PLASMA 7.1 g/dL 6.0 - 8.3 10/14 Specimen Type: SERUM No comment entered. Ordering Provider: Madelaine SAHA Report Released Date/Time: Oct 15, 2023 11:05 AM Reporting Lab: [facility] [place] [address] [address] Performing Lab: [facility] [place] [facility] [address] [facility] [address] [facility] [place] [facility] LIVER FUNCTION ALBUMIN [MASS/VOLU ME] IN SERUM OR PLASMA 3.8 g/dL 3.5 - 5.0 10/14 Specimen Type: SERUM No comment entered. Ordering Provider: Madelaine SAHA Report Released Date/Time: Oct 15, 2023 11:05 AM Reporting Lab: [facility] [place] [facility] [address] [facility] [address] Performing Lab: [facility] [place] [facility] [address] [facility] [address] [facility] [place] [facility] LIVER FUNCTION ALKALINE PHOSPHATAS E [ENZYMATIC ACTIVITY/V OLUME] IN SERUM OR PLASMA 50 U/L 40 - 150 10/14 Specimen Type: SERUM No comment entered. Ordering Provider: Madelaine SAHA Report Released Date/Time: Oct 15, 2023 11:05 AM Reporting Lab: [facility] [place] [facility] [address] [facility] [address] Performing Lab: [facility] [place] [facility] [address] [facility] [address] [facility] [place] [facility] LIVER FUNCTION ASPARTATE AMINOTRANS FERASE [ENZYMATIC ACTIVITY/V OLUME] IN SERUM OR PLASMA 15 U/L 5 - 34 10/14 Specimen Type: SERUM No comment entered. Ordering Provider: Madelaine SAHA Report Released Date/Time: Oct 15, 2023 11:05 AM Reporting Lab: [facility] [place] [facility] [address] [facility] [address] Performing Lab: [facility] [place] [facility] [address] [facility] [address] [facility] [place] [facility] LIVER FUNCTION ALANINE AMINOTRANS FERASE [ENZYMATIC ACTIVITY/V OLUME] IN SERUM OR PLASMA 26 U/L 10/14 Specimen Type: SERUM No comment entered. Ordering Provider: Madelaine SAHA Report Released Date/Time: Oct 15, 2023 11:05 AM Reporting Lab: [facility] [place] [facility] [address] [facility] [address] Performing Lab: [facility] [place] [facility] [address] [facility] [address] [facility] [place] [facility] LIVER FUNCTION BILIRUBIN. TOTAL [MASS/VOLU ME] IN SERUM OR PLASMA 0.5 mg/dL 0.2 - 1.2 10/14 Specimen Type: SERUM No comment entered. Ordering Provider: Madelaine SAHA Report Released Date/Time: Oct 15, 2023 11:05 AM Reporting Lab: [facility] [place] [facility] [address] [facility] [address] Performing Lab: [facility] [place] [facility] [address] [facility] [address] [facility] [place] [facility] CBC LEUKOCYTES [#/VOLUME] IN BLOOD BY AUTOMATED COUNT 6.94 10*3/uL 4.50 - 11.00 05/24 Specimen Type: BLOOD No comment entered. Ordering Provider: Madelaine SAHA Report Released Date/Time: Apr 14, 2023 08:29 AM Reporting Lab: [facility] [place] [facility] [address] [facility] [address] Performing Lab: [facility] [place] [facility] [address] [facility] [address] [facility] [place] [facility] CBC ERYTHROCYT ES [#/VOLUME] IN BLOOD BY AUTOMATED COUNT 4.59 10*6/uL 4.23 - 5.66 05/24 Specimen Type: BLOOD No comment entered. Ordering Provider: Madelaine SAHA Report Released Date/Time: Apr 14, 2023 08:29 AM Reporting Lab: [facility] [place] [facility] [address] [facility] [address] Performing Lab: [facility] [place] [facility] [address] [facility] [address] [facility] [place] [facility] CBC HEMOGLOBIN [MASS/VOLU ME] IN BLOOD 12.9 g/dL 12.8 - 17 05/24 Specimen Type: BLOOD No comment entered. Ordering Provider: Madelaine SAHA Report Released Date/Time: Apr 14, 2023 08:29 AM Reporting Lab: [facility] [place] [facility] [address] [facility] [address] Performing Lab: [facility] [place] [facility] [address] [facility] [address] [facility] [place] [facility] CBC HEMATOCRIT [VOLUME FRACTION] OF BLOOD BY AUTOMATED COUNT 40.6 39.2 - 50.4 05/24 Specimen Type: BLOOD No comment entered. Ordering Provider: Madelaine SAHA Report Released Date/Time: Apr 14, 2023 08:29 AM Reporting Lab: [facility] [place] [facility] [address] [facility] [address] Performing Lab: [facility] [place] [facility] [address] [facility] [address] [facility] [place] [facility] CBC MCV [ENTITIC VOLUME] BY AUTOMATED COUNT 88.5 fL 82 - 99 05/24 Specimen Type: BLOOD No comment entered. Ordering Provider: Madelaine SAHA Report Released Date/Time: Apr 14, 2023 08:29 AM Reporting Lab: [facility] [place] [facility] [address] [facility] [address] Performing Lab: [facility] [place] [facility] [address] [facility] [address] [facility] [place] [facility] CBC MCHC [MASS/VOLU ME] BY AUTOMATED COUNT 31.8 g/dL 30.8 - 35.1 05/24 Specimen Type: BLOOD No comment entered. Ordering Provider: Madelaine SAHA Report Released Date/Time: Apr 14, 2023 08:29 AM Reporting Lab: [facility] [place] [facility] [address] [facility] [address] Performing Lab: [facility] [place] [facility] [address] [facility] [address] [facility] [place] [facility] CBC PLATELETS [#/VOLUME] IN BLOOD BY AUTOMATED COUNT 309 10*3/uL 140 - 360 05/24 Specimen Type: BLOOD No comment entered. Ordering Provider: Madelaine SAHA Report Released Date/Time: Apr 14, 2023 08:29 AM Reporting Lab: [facility] [place] [facility] [address] [facility] [address] Performing Lab: [facility] [place] [facility] [address] [facility] [address] [facility] [place] [facility] CBC ERYTHROCYT E DISTRIBUTI ON WIDTH [RATIO] BY AUTOMATED COUNT 14.0 12.0 - 16.0 05/24 Specimen Type: BLOOD No comment entered. Ordering Provider: Madelaine SAHA Report Released Date/Time: Apr 14, 2023 08:29 AM Reporting Lab: [facility] [place] [facility] [address] [facility] [address] Performing Lab: [facility] [place] [facility] [address] [facility] [address] [facility] [place] [facility] CBC MCH [ENTITIC MASS] BY AUTOMATED COUNT 28.1 pg 26.2 - 32.6 05/24 Specimen Type: BLOOD No comment entered. Ordering Provider: Madelaine SAHA Report Released Date/Time: Apr 14, 2023 08:29 AM Reporting Lab: [facility] [place] [facility] [address] [facility] [address] Performing Lab: [facility] [place] [facility] [address] [facility] [address] [facility] [place] [facility] BASIC METABOLI C PANEL (fasting ) UREA NITROGEN [MASS/VOLU ME] IN SERUM OR PLASMA 17 mg/dL 7 - 25 05/24 Specimen Type: SERUM No comment entered. Ordering Provider: Madelaine SAHA Report Released Date/Time: Apr 26, 2023 04:38 PM Reporting Lab: [facility] [place] [facility] [address] [facility] [address] Performing Lab: [facility] [place] [facility] [address] [facility] [address] [facility]ENTERTRN [facility] BASIC METABOLI C PANEL (fasting ) GLUCOSE [MASS/VOLU ME] IN SERUM OR PLASMA 95 mg/dL 65 - 100 05/24 Specimen Type: SERUM No comment entered. Ordering Provider: Madelaine SAHA Report Released Date/Time: Apr 26, 2023 04:38 PM Reporting Lab: [facility]ENTERTRN [facility] [address] Performing Lab: [facility]USE[facility] [address] [facility] [address] [facility]ITALRJACK [facility]ITALN [facility] BASIC METABOLI C PANEL (fasting ) SODIUM [MOLES/VOL UME] IN SERUM OR PLASMA 142 mmol/L 135 - 145 05/24 Specimen Type: SERUM No comment entered. Ordering Provider: Madelaine SAHA Report Released Date/Time: Apr 26, 2023 04:38 PM Reporting Lab: [facility]ITAL[facility] CENTERTRN [address] [address] Performing Lab: [facility] TRN [facility]ITALUSE[address] [address] [facility] BASIC METABOLI C PANEL (fasting ) POTASSIUM [MOLES/VOL UME] IN SERUM OR PLASMA 4.8 mmol/L 3.5 - 5.0 05/24 Specimen Type: SERUM No comment entered. Ordering Provider: Madelaine SAHA Report Released Date/Time: Apr 26, 2023 04:38 PM Reporting Lab: [facility] [address] [address] Performing Lab: [facility] TRN [facility] [address] [facility] TRN [facility]ITALUSE [facility] BASIC METABOLI C PANEL (fasting ) CHLORIDE [MOLES/VOL UME] IN SERUM OR PLASMA 107 mmol/L 100 - 110 05/24 Specimen Type: SERUM No comment entered. Ordering Provider: Madelaine SAHA Report Released Date/Time: Apr 26, 2023 04:38 PM Reporting Lab: [facility] [place] [facility] [address] [facility] [address] Performing Lab: [facility] [place] [facility] [address] [facility] [address] [facility] [place] [facility] BASIC METABOLI C PANEL (fasting ) CARBON DIOXIDE, TOTAL [MOLES/VOL UME] IN SERUM OR PLASMA 24 meq/L 20 - 30 05/24 Specimen Type: SERUM No comment entered. Ordering Provider: Madelaine SAHA Report Released Date/Time: Apr 26, 2023 04:38 PM Reporting Lab: [facility] [place] [facility] [address] [facility] [address] Performing Lab: [facility] [place] [address] [address] [facility] [place] [facility] BASIC METABOLI C PANEL (fasting ) CREATININE [MASS/VOLU ME] IN SERUM OR PLASMA 1.49 mg/dL 0.50 - 1.40 05/24 H Specimen Type: SERUM No comment entered. Ordering Provider: Madelaine SAHA Report Released Date/Time: Apr 26, 2023 04:38 PM Reporting Lab: [facility] [place] [address] [address] Performing Lab: [facility] [place] [address] [address] [facility] [place] [facility] BASIC METABOLI C PANEL (fasting ) GLOMERULAR FILTRATION RATE/1.73 SQ M.PREDICTE D [VOLUME RATE/AREA] IN SERUM, PLASMA OR BLOOD BY CREATININE -BASED FORMULA (CKD-EPI 2020) 48 mL/min 60 05/24 L Specimen Type: SERUM No comment entered. Ordering Provider: Madelaine SAHA Report Released Date/Time: Apr 26, 2023 04:38 PM Reporting Lab: [facility] [place] [facility] [address] [facility] [address] Performing Lab: [facility] [place] [address] [address] [facility] [place] [facility] IRON & TIBC PANEL IRON BINDING CAPACITY [MASS/VOLU ME] IN SERUM OR PLASMA 347 ug/dL 204 - 475 05/24 Specimen Type: SERUM No comment entered. Ordering Provider: Madelaine SAHA Report Released Date/Time: Apr 26, 2023 04:38 PM Reporting Lab: [facility] [place] [facility] [address] [facility] [address] Performing Lab: [facility] [place] [facility] [address] [facility] [address] [facility] [place] [facility] IRON & TIBC PANEL IRON [MASS/VOLU ME] IN SERUM OR PLASMA 41 ug/dL 40 - 160 05/24 Specimen Type: SERUM No comment entered. Ordering Provider: Madelaine SAHA Report Released Date/Time: Apr 26, 2023 04:38 PM Reporting Lab: [facility] [place] [address] [address] Performing Lab: [facility] [place] [facility] [address] [facility] [address] [facility] [place] [facility] IRON & TIBC PANEL IRON/IRON BINDING CAPACITY.T OTAL [MASS RATIO] IN SERUM OR PLASMA 11.8 20.0 - 50.0 05/24 L Specimen Type: SERUM No comment entered. Ordering Provider: Madelaine SAHA Report Released Date/Time: Apr 26, 2023 04:38 PM Reporting Lab: [facility] [place] [address] [address] Performing Lab: [facility] [place] [address] [address] [facility] [place] [facility] MICROALB UMIN CREATINI NE RATIO PANEL MICROALBUM IN/CREATIN INE [MASS RATIO] IN URINE 21.1 mg/g 0 - 29.9 05/24 Specimen Type: URINE No comment entered. Ordering Provider: Madelaine SAHA Report Released Date/Time: Apr 26, 2023 04:38 PM Reporting Lab: [facility] [place] [facility] [address] [facility] [address] Performing Lab: [facility] [place] [facility] [address] [facility] [address] [facility] [place] [facility] MICROALB UMIN CREATINI NE RATIO PANEL MICROALBUM IN [MASS/VOLU ME] IN URINE 1.9 mg/dL 05/24 Specimen Type: URINE No comment entered. Ordering Provider: Madelaine SAHA Report Released Date/Time: Apr 26, 2023 04:38 PM Reporting Lab: [facility] [place] [facility] [address] [facility] [address] Performing Lab: [facility] [place] [facility] [address] [facility] [address] [facility] [place] [facility] MICROALB UMIN CREATINI NE RATIO PANEL CREATININE [MASS/VOLU ME] IN URINE 89.96 mg/dL 05/24 Specimen Type: URINE No comment entered. Ordering Provider: Madelaine SAHA Report Released Date/Time: Apr 26, 2023 04:38 PM Reporting Lab: [facility] [place] [facility] [address] [facility] [address] Performing Lab: [facility] [place] [facility] [address] [facility] [address] [facility] [place] [facility] URINALYS IS COLOR OF URINE Light-Ye llow 05/24 Specimen Type: URINE Comment: If Glucose = >500 and Ketones are positive, please alert the Physician. Ordering Provider: Madelaine SAHA Report Released Date/Time: Apr 26, 2023 04:38 PM Reporting Lab: [facility] [place] [facility] [address] [facility] [address] Performing Lab: [facility] [place] [facility] [address] [facility] [address] [facility] [place] [facility] URINALYS IS APPEARANCE OF URINE Clear 05/24 Specimen Type: URINE Comment: If Glucose = >500 and Ketones are positive, please alert the Physician. Ordering Provider: Madelaine SAHA Report Released Date/Time: Apr 26, 2023 04:38 PM Reporting Lab: [facility] [place] [facility] [address] [facility] [address] Performing Lab: [facility] [place] [facility] [address] [facility] [address] [facility] [place] [facility] URINALYS IS GLUCOSE [MASS/VOLU ME] IN URINE NEGATIVE mg/dL 05/24 Specimen Type: URINE Comment: If Glucose = >500 and Ketones are positive, please alert the Physician. Ordering Provider: Madelaine SAHA Report Released Date/Time: Apr 26, 2023 04:38 PM Reporting Lab: [facility] [place] [facility] [address] [facility] [address] Performing Lab: [facility] [place] [facility] [address] [facility] [address] [facility] [place] [facility] URINALYS IS KETONES [MASS/VOLU ME] IN URINE BY TEST STRIP NEGATIVE mg/dL 05/24 Specimen Type: URINE Comment: If Glucose = >500 and Ketones are positive, please alert the Physician. Ordering Provider: Madelaine SAHA Report Released Date/Time: Apr 26, 2023 04:38 PM Reporting Lab: [facility] [place] [facility] [address] [facility] [address] Performing Lab: [facility] [place] [facility] [address] [facility] [address] [facility] [place] [facility] URINALYS IS ERYTHROCYT ES [PRESENCE] IN URINE SEDIMENT BY LIGHT MICROSCOPY NEGATIVE mg/dL 05/24 Specimen Type: URINE Comment: If Glucose = >500 and Ketones are positive, please alert the Physician. Ordering Provider: Madelaine SAHA Report Released Date/Time: Apr 26, 2023 04:38 PM Reporting Lab: [facility] [place] [facility] [address] [facility] [address] Performing Lab: [facility] [place] [facility] [address] [facility] [address] [facility]ENTERTRN [place] [facility] URINALYS IS PROTEIN [MASS/VOLU ME] IN URINE BY TEST STRIP NEGATIVE mg/dL 05/24 Specimen Type: URINE Comment: If Glucose = >500 and Ketones are positive, please alert the Physician. Ordering Provider: Madelaine SAHA Report Released Date/Time: Apr 26, 2023 04:38 PM Reporting Lab: [facility] [place] [facility] [address] [facility] [address] Performing Lab: [facility] [place] [facility] [address] [facility] [address] [place], [place] [address]ENTERTRN [place] [facility] URINALYS IS NITRITE [PRESENCE] IN URINE NEGATIVE mg/dL 05/24 Specimen Type: URINE Comment: If Glucose = >500 and Ketones are positive, please alert the Physician. Ordering Provider: Madelaine SAHA Report Released Date/Time: Apr 26, 2023 04:38 PM Reporting Lab: [facility] [place] [facility] [address] [facility] [address] Performing Lab: [facility] [place] [facility] [address] [facility] [address] [facility] [place] [facility] URINALYS IS BILIRUBIN. TOTAL [PRESENCE] IN URINE NEGATIVE mg/dL 05/24 Specimen Type: URINE Comment: If Glucose = >500 and Ketones are positive, please alert the Physician. Ordering Provider: Madelaine SAHA Report Released Date/Time: Apr 26, 2023 04:38 PM Reporting Lab: [facility] [place] [facility] [address] [facility] [address] Performing Lab: [facility] [place] [address] [address] [facility]ITALRJACK [facility]ITALN [place] [facility] URINALYS IS SPECIFIC GRAVITY OF URINE BY REFRACTOME TRY 1.017 1.016 - 1.022 05/24 Specimen Type: URINE Comment: If Glucose = >500 and Ketones are positive, please alert the Physician. Ordering Provider: VANWAGNER,W ILLIAM F Report Released Date/Time: Apr 26, 2023 04:38 PM Reporting Lab: [facility] [place] [facility] [address] [facility] [address] Performing Lab: [facility] [place] [facility] [address] [facility] [address] [facility] [place] [facility] URINALYS IS PH OF URINE BY TEST STRIP 6.0 5.0 - 9.0 05/24 Specimen Type: URINE Comment: If Glucose = >500 and Ketones are positive, please alert the Physician. Ordering Provider: Madelaine SAHA Report Released Date/Time: Apr 26, 2023 04:38 PM Reporting Lab: [facility] [place] [facility] [address] [facility] [address] Performing Lab: [facility] [place] [facility] [address] [facility] [address] [facility] [place] [facility] URINALYS IS UROBILINOG EN [MASS/VOLU ME] IN URINE BY TEST STRIP <2.0mg/d L <2.0 - 2.0 05/24 Specimen Type: URINE Comment: If Glucose = >500 and Ketones are positive, please alert the Physician. Ordering Provider: Madelaine SAHA Report Released Date/Time: Apr 26, 2023 04:38 PM Reporting Lab: [facility] [place] [facility] [address] [facility] [address] Performing Lab: [facility] [place] [facility] [address] [facility] [address] [facility] [place] [facility] URINALYS IS LEUKOCYTE ESTERASE [PRESENCE] IN URINE BY TEST STRIP NEGATIVE 05/24 Specimen Type: URINE Comment: If Glucose = >500 and Ketones are positive, please alert the Physician. Ordering Provider: Madelaine SAHA Report Released Date/Time: Apr 26, 2023 04:38 PM Reporting Lab: [facility] [place] [facility] [address] [facility] [address] Performing Lab: [facility] [place] [facility] [address] [facility] [address] [facility] [place] [facility] Vital Signs Combined list of [...] [facility] [place] [facility] En[facility] [id number] 07/23 [facility] [place] En[facility] [id number] 08/10 [facility] [place] QNHP OL DIG ASSMT&MGMT 5-10 [id number] Diagnos is: ICD-10- CM S91.009 A Unspeci fied open wound, unspeci fied ankle, initial encount er MAURILIO,KATY GRIFFITHS J 08/16 [facility] [place] [facility] Outpatient Encounter [id number] Diagnos is: ICD-10- CM F43.10 Post-tr aumatic stress disorde r, unspeci fied FEARING,DC YVONNE A 09/20 [facility] [place] [facility] Outpatient Encounter [id number] FEARING,DC CHAEL A 09/20 [facility] [place] [facility] Outpatient Encounter [id number] 10/04 [facility] [place] [facility] OFFICE O/P EST LOW 20 MIN [id number] Diagnos is: ICD-10- CM J44.9 Chronic obstruc tive pulmona ry disease , unspeci fied VALENTÍN SAHA F 10/21 [facility] OFF/OP EST MAY X REQ PHY/QHP [id number] Diagnos is: ICD-10- CM I10 Essenti al (primar y) hyperte nsDionna Pierre 10/24 [facility] COMPRE OPH EXAM NEW PT 1/> [id number] Diagnos is: ICD-10- CM H40.013 Open angle with borderl ine finding s, low risk, bilater al MARIAHPARVEZ HAMLIN 10/24 [facility] ECHO EXAM OF EYE THICKNESS [id number] Diagnos is: ICD-10- CM H40.013 Open angle with borderl ine finding s, low risk, bilater al PARVEZ LEMUS 10/24 [facility] FIT SPECTACLES MULTIFOCAL [id number] Diagnos is: ICD-10- CM Z46.0 Encount er for fit/adj st of spectac les and contact lenses PARVEZ LEMUS 10[facility]25 [facility] [facility] [id number] 10/25 [facility] En[facility] [id number] 11/22 [facility] En[facility] [id number] 11/23 [facility] En[facility] [id number] 12/07 [facility] En[facility] [id number] 12/09 [facility] En[facility] [id number] 12/09 [facility] En[facility] [id number] 01/23 [facility] QNHP OL DIG ASSMT&MGMT 5-10 [id number] Diagnos is: ICD-10- CM Z12.2 Encntr screen for maligna nt neoplas m of respira tory organs REBEKAH TEJEDACA L 01/23 [facility] En[facility] [id number] 01/31 [facility] [id number] 05/11 [facility] En[facility] [id number] 05/16 [facility] QNHP OL DIG ASSMT&MGMT 5-10 [id number] 1. Diagnos is: ICD-10- CM R52 Pain, unspeci fied CALLIE,LAURA A 05/26 [facility] En[facility] [id number] [facility] Encounter [id number] 08/09 [facility] OFFICE O/P EST HI 40 MIN [id number] Diagnos is: ICD-10- CM H40.013 Open angle with borderl ine finding s, low risk, bilater al ISABELL BARRY H B 09/07 [facility] FIT SPECTACLES MULTIFOCAL [id number] ISABELL BARRY H B 09/07 [facility] Out[facility] Encounter [id number] 10/09 [facility] Outpatient Encounter [id number] 10/16 [facility] Outpatient Encounter [id number] 10/19 [facility] [place] OFFICE O/P EST LOW 20 MIN [id number] Diagnos is: ICD-10- CM M35.00 Sjogren syndrom e, unspeci fied VALENTÍN SAHA F 10/20 [facility] [place] [facility] Social History Combined list of available smoking, tobacco, and other social history from Department of Defense and Veterans Affairs facilities. Social History Type Response Date Comment Sourc e Tobacco smoking status NHIS MD-TOBACCO USE FORMER CIGARETTES 06/01/2024 [facility] [place] [facility] of [facility]/2024 [facility] [place] [facility] History of tobacco use MD-TOBACCO FORMER USER 01/22/2023 [facility] [place] [facility] History of tobacco use MD-TOBACCO FORMER USER 02/17/2022 [facility] [place] [facility] History of tobacco use MD-TOBACCO QUIT 1 TO < 5 YRS 06/22/2019 [facility] Plan of Care List of future care activities from Department of Veterans Affairs facilities. Additional future care activities may be listed in the Assessment and Plan section. Date/Time Care Activity Care Activity Detail Facili ty 11/29/2024 AMBULAT[facility] - MEDICINE [facility] Advance Directives List of completed, amended, or rescinded Advance Directives on record at Department of Veterans Affairs facilities. An actual copy of the Directive is not included. Date Advance Directive Provider Source 10/26/2023 ADVANCE DIRECTIVE MARGARITA [facility]
[2024-11-27 12:42] LABS: Basophils Absolute Auto 0.1 X10*3/uL (0.0-0.2); Basophils Percent Auto 0.6 % (0-2); Eosinophils Absolute Auto 0.1 X10*3/uL (0.0-0.4); Eosinophils Percent Auto 0.6 % (0-4); Hematocrit 47.1 % (42.0-52.0); Hemoglobin 14.6 g/dl (14.0-18.0); Imm Gran Abs Auto 0.06 X10*3/uL (0.00-0.03); Imm Gran Pct Auto 0.7 % (0.0-0.4); Lymphocytes Percent Auto 11.3 % (20-40); Mean Corpuscular Hemoglobin 26.4 pg (27.0-33.0); Mean Corpuscular Volume 85.3 fL (80.0-98.0); Mean Platelet Volume 9.2 fL (9.4-12.4); Monocytes Absolute Auto 0.5 X10*3/uL (0.1-1.2); Monocytes Percent Auto 5.6 % (2-11); Neutrophils Absolute Auto 7.2 x10*3/uL (2.0-8.3); Neutrophils Percent Auto 81.2 % (45-73); Platelet Count 289 X10*3/uL (160-400); Red Blood Count 5.52 X10*6/uL (4.60-5.80); Red Cell Distribution Width 16.8 % (11.0-16.0); White Blood Count 8.9 X10*3/uL (4.8-10.8)
[2024-11-27 13:08] LABS: Alanine Aminotransferase 29 U/L (0-40); Albumin Level 4.1 g/dL (3.5-5.0); Alkaline Phosphatase 47 U/L (39-117); Anion Gap 13 (12-20); Aspartate Amino Transferase 21 U/L (5-37); Bilirubin Total 0.3 mg/dL (0.0-1.0); Blood Urea Nitrogen 20 mg/dL (9-16); C Reactive Protein 3.26 mg/dL (< or = 0.50); Calcium 9.2 mg/dL (8.4-10.2); Carbon Dioxide 25 mmol/L (22-29); Chloride 107 mmol/L (96-108); Estimated Glomerular Filt Rate 51; Glucose Random 102 mg/dL (60-115); Potassium 4.2 mmol/L (3.3-5.1); Sodium 141 mmol/L (135-145); Total Protein 7.4 g/dL (6.5-8.0)
[2024-11-27 13:28] LABS: Erythrocyte Sedimentation Rate 25 MM/HR (0-15)
== END 2024-11-27 11:02 | disposition home or self-care (01) ==
LOC: HO.LAB 11:01
PROVIDERS: Absent Provider Student in an Organized Health Care Education/Training Program; PCP Internal Medicine; Visit Provider Nurse Practitioner Family
DX: M06.09 Rheumatoid arthritis without rheumatoid factor, multiple sites (principal); L88 Pyoderma gangrenosum; L97.829 Non-pressure chronic ulcer of other part of left lower leg with unspecified severity; M79.605 Pain in left leg; G89.29 Other chronic pain; Z86.718 Personal history of other venous thrombosis and embolism; Z79.891 Long term (current) use of opiate analgesic
CPT/HCPCS: 36415; 80053; 85025; 85652; 86140; 99212

== ENCOUNTER 2024-12-11 13:27 | Outpatient (AMB) | payer MEDICARE, SELFPAY ==
--- NOTE | 2024-12-11 13:04 | A.OFFVIS_ITS ---
Vital Signs 12/11/24 13:31 Height 5 ft 6 in Weight 196 lb 3.382 oz BMI 31.7 BP 136/88 Blood Pressure Location Rt brachial Position Sitting Pulse 79 Pulse Source Pulse Oximeter Pulse Oximetry (%) 93 Oxygen Delivery Method Room Air Intake Visit Reasons: COPD Allergies heparin (porcine) Allergy (Severe, Verified 12/11/24 13:38) HIT HPI HPI COPD: Details: Sarath is a pleasant 78 year old male, former smoker, with 30 pack year history, quit 2019, with underlying moderate COPD, Sjogren's, Rheumatoid arthritis previously on Humira/Acemtra/Enbrel, provoked PE, CKD, HTN and chronic nonhealing wound on chronic prednisone 7.5 mg. He continues to be nonambulatory due to poor healing wound on foot, currently in wheelchair and accompanied by . He reports moderate control of respiratory symptoms using Trelegy 100 mcg and albuterol MDI. He continues to report baseline dyspnea with exertion with occasionally productive cough with clear sputum at night. Denies wheezing or chest tightness. He denies any visits to urgent care or hospitalizations related to respiratory distress since the last visit. At the prior visit we reviewed overnight oximetry which revealed nocturnal hypoexmia <88% for 41 minutes and recommendation to assess for underlying sleep breathing disorder due to 43 desaturation events per hour with home sleep study, however patient declined. He was agreeable to using 1L of supplemental oxygen at [facility] due to hypoxia, which patient he has been using QOD. He has been monitoring oxygen saturation at home while at rest, occasionally decreases to 86% after activity, not interested in using supplemental oxygen with exertion. He also endorses orthopnea, BLE edema unclear if related to wounds, denies PND. [facility] Medical History MDD (major depressive disorder), single episode Pressure injury of buttock, stage 1 Deep vein thrombosis 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 Acute pulmonary embolism with acute cor pulmonale Acute pulmonary embolism Cardiac arrest CKD (chronic kidney disease) stage 3, GFR 30-59 ml/min Sjogren's disease Leg pain, bilateral Elevated serum creatinine COPD (chronic obstructive pulmonary disease) HTN (hypertension) Rheumatoid arthritis Chronic ulcer of leg Surgical History History of ankle surgery History of hernia repair History of left knee replacement Family History Sister Breast cancer Father Aneurysm Mother Angina at rest Other No family history of coronary artery disease Social History Household Members: Spouse Housing: House Do you presently have visiting nurse or other home services: No Alcohol intake: current Alcohol intake frequency: holidays/special occasions only Comment: restraints Patient Tobacco Use Status: Former Tobacco user Tobacco use type: Cigarette Cigarette Packs Per Day: 1 Years Smoked: quit + years e-Cigarette/Vaping Use: Never Used Second Hand Smoke Exposure: No Advance Directives Date on File: 12/23/21 service: Yes Current occupational status: retired Cognitive needs: Yes (cane) Hearing needs: No Vision needs: Yes (Pt wear glasses. ) Review of Systems Const Denies chills, Denies excessive sweating, Denies fever(s), Denies headache(s) and Denies night sweats Eyes Denies dry eyes, Denies irritation and Denies itchy eyes ENT Reports Normal hearing present, Denies headache(s), Denies nasal congestion, Denies nasal discharge and Denies sore throat Card Denies chest pain, Denies chest pain at rest, Denies chest pain with activity, Denies claudication, Reports dyspnea on exertion, Reports orthopnea and Denies paroxysmal nocturnal dyspnea Resp Denies change in phlegm color, Denies chest congestion, Reports cough, Denies hemoptysis, Denies excessive phlegm production, Denies pain on inspiration, Denies pain with cough, Reports dyspnea on exertion, Denies stridor and Denies wheezing Musc Denies myalgias Neuro Reports Normal hearing present and Denies headache(s) Endo Denies excessive sweating Jhon/Lymph Denies lymphadenopathy Aller/Immun Denies itchy eyes, Denies seasonal rhinorrhea and Denies wheezing Physical Exam Vital Signs: Last Vital Signs Pulse 79 12/11/24 13:31 BP 136/88 12/11/24 13:31 Pulse Ox 93 12/11/24 13:31 Oxygen Delivery Method Room Air 12/11/24 13:31 BMI result Body Mass Index 31.7 Const General: cooperative, healthy appearing, comfortable, no acute distress, well developed and alert Orientation/consciousness: patient oriented x3 Limitations: wheelchair HEENT Head: Yes normal to inspection, Yes normocephalic and Yes atraumatic Ears: hearing grossly normal bilaterally and external ears normal Eyes General: appearance normal, both eyes and all related structures Eyelids: Yes eyelids normal Sclerae: sclerae normal EOM: EOMs intact bilaterally Neck Neck: Yes normal visual inspection and Yes no lymphadenopathy Lymphatic: no lymphadenopathy noted Chest Chest palpation & inspection: normal inspection of the chest Resp Effort & Inspection: normal respiratory effort, able to speak in complete sentences, no audible wheezes, no cough, no stridor, not tachypneic, no tripod positioning and no use of accessory muscles Auscultation: diminished lung sounds Cardio Jugular venous distension: no JVD Rate: regular rate Skin Other: warm, dry Neuro General: patient oriented x3 Cranial nerves: Yes Normal hearing present Cognition (Neuro): normal cognition Extrem Other: LLE with edema, covered with dry, clean dressing, trace pedal edema on right Psych Appearance: grossly normal and well kempt Speech and movement: Normal speech and movement present and Clear speech present Affect: normal affect Attitude: cooperative Thought process: Normal thought process present Thought content: Normal thought content present Insight: Good insight present (Psych) Judgement: Good judgement present (Psych) Assessment & Plan Assessment & Plan (1) COPD (chronic obstructive pulmonary disease): Code(s): J44.9 - Chronic obstructive pulmonary disease, unspecified Category: Medical (2) Personal history of tobacco use: Comment: CT 10/30/2023 Code(s): Z87.891 - Personal history of nicotine dependence Category: Social Hx (3) Cough: Code(s): R05.9 - Cough, unspecified Category: Medical (4) Nocturnal hypoxemia: Code(s): G47.34 - Idiopathic sleep related nonobstructive alveolar hypoventilation Category: Medical Plan Patient has been using 1L supplemental oxygen at [facility] every other day, encouraged nightly use. Will send for overnight oximetry on 1L to ensure this is sufficient. He did note that occasionally oxygen saturation decreases to 86% with exertion, discussed adverse effects of hypoxia and need for 1-2L with exertion to maintain O2 90-92%, which he will consider. He currently reports moderate control of respiratory symptoms, will increase Trelegy to 200 mcg in addition to albuterol MDI/DuoNeb. CT chest performed 11/2023 revealed em physematous changes with no concerning pulmonary nodules. Given smoking history, quit 2018, [facility] Patient reports more noticeable orthopnea and occasional increasing of BLE, will send for BNP to assess for a cardiac component. All questions were answered and patient is in agreement of plan. Will follow up to review results or sooner if needed. Orders: Orders B Type Natriuretic Peptide 12/11/24 R06.00 - Dyspnea, unspecified Overnight Pulse Oximetry 12/11/24 G47.34 - Idiopathic sleep related nonobstructive alveolar hypoventilation Medications: New hajlgugorev-iptqwutsp-zbhndagm 200-62.5-25 mcg (Trelegy Ellipta) 1 inh inhalation DAILY 60 ea 0RF Coding Level of Care Code Est Pt Level 4 (37978) Complex EM visit Add On G2211 Diagnoses COPD (chronic obstructive pulmonary disease) J44.9 Personal history of tobacco use Z87.891 Cough R05.9 Nocturnal hypoxemia G47.34
[2024-12-11 13:31] VITALS: BP 136/88; PULSE 79; O2SAT 93; BMI 31.7
--- OUTSIDE RECORDS SUMMARY | 2024-12-11 14:34 | XMS_ITS | Clinical Summary ---
Author Organization [facility] Facility Address [address] [place] [id number] Care Team Providers Care Floor Assembler Name Role Phone Kia Stroud MD Primary Care Provider [phone] Social History Tobacco Use Types Packs/Day Years [...] Insurance [employer] Aena [employer] Care Teams Floor Assembler Relationship Specialty Start Date End Date Kia Stroud MD [facility] [id number] [place], [place] PCP - General Internal Medicine 12/04/21
== END 2024-12-11 14:47 | disposition home or self-care (01) ==
LOC: HO.HPS 13:28
PROVIDERS: PCP Internal Medicine; Visit Provider Nurse Practitioner Family
DX: J44.9 Chronic obstructive pulmonary disease, unspecified (principal); Z87.891 Personal history of nicotine dependence; R05.9 Cough, unspecified; G47.34 Idiopathic sleep related nonobstructive alveolar hypoventilation
CPT/HCPCS: 99214; G2211

== ENCOUNTER → 2024-12-11 13:27 | Outpatient (BNVA) | payer MEDICARE, SELFPAY | PROVIDERS: PCP Internal Medicine; Visit Provider Nurse Practitioner Family | DX: J44.9 Chronic obstructive pulmonary disease, unspecified (principal); G47.34 Idiopathic sleep related nonobstructive alveolar hypoventilation; R06.00 Dyspnea, unspecified; Z87.891 Personal history of nicotine dependence; Z99.3 Dependence on wheelchair; Z86.711 Personal history of pulmonary embolism; Z79.899 Other long term (current) drug therapy | CPT/HCPCS: 99212 ==

== ENCOUNTER 2024-12-13 10:19 | Outpatient (AMB) | payer MEDICARE, SELFPAY ==
--- NOTE | 2024-12-13 10:25 | A.OFFVIS_ITS ---
Vital Signs 12/13/24 10:34 Height 5 ft 6 in Weight 196 lb 3.382 oz BMI 31.7 BP 130/82 Blood Pressure Location Rt brachial Position Sitting Pulse 76 Pulse Source Pulse Oximeter Pulse Oximetry (%) 94 Oxygen Delivery Method Room Air Intake Visit Reasons: Pyoderma(MD thomas sooner appt) Intake Note: Patient presents for Pyoderma follow up. Allergies heparin (porcine) Allergy (Severe, Verified 12/13/24 10:30) HIT Medication List - Last Reconciled 12/13/24 by Lynda Iyer MD acetaminophen (Tylenol Extra Strength) 1,000 mg PO Q6H PRN albuterol sulfate 90 mcg/actuation 2 puffs inhalation Q6H PRN amlodipine 2.5 mg PO DAILY amoxicillin mg PO duloxetine 20 mg PO BEDTIME fluticasone propionate 50 mcg/actuation (Flonase Allergy Relief) 2 sprays in tranasal DAILY PRN tnqbwtyfojt-kgpscpmjs-gbmzxyqj 100-62.5-25 mcg (Trelegy Ellipta) 1 inh inhalation DAILY akvqqdwdcfg-wsidklcvv-faapbfja 200-62.5-25 mcg (Trelegy Ellipta) 1 inh inhalation DAILY gabapentin 600 mg PO BID 30 days Lactobac. 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 Horne. At that time he was following up for his seronegative rheumatoid arthritis/Sjogren's syndrome and pyoderma gangrenosum. At that time he was following up after a hospitalization for COPD exacerbation in April. Noted that once his steroids were tapered his pyoderma gangrenosum Moons would worsen. He was also complaining of right knee pain and swelling for which he received a steroid injection Today, He has been doing well after the knee injection Still having difficulty with healing his LE wounds Rheumatologic History: seronegative RA/Sjogren's (dry mouth +++Ro) diagnosed in the treated with Enbrel for at least 15 years years Kimbrely 2021 Infliximab Humira Cellcept added for pyoderma but subsequently discontinued Initial history: This is a 76-year-old male with a past medical history of rheumatoid arthritis, Sjogren's, pyoderma gangrenosum, hypertension, bilateral PE who presents for evaluation of left lower extremity open wounds. Patient is originally from [place], moved to [place] in June of 2021. Patient stated that he was initially diagnosed with Sjogren's at the [facility] in the due to dry eyes. He was eventually diagnosed with rheumatoid arthritis and he had been on Enbrel since the for many years. Enbrel was switched to reflect this for about 1 year but it was not effective. He was switched to Actemra in June of 2021 to bring down his inflammatory markers down. He received Actemra infusions for 2-3 months then moved to [place]. In [place] patient initially could not find a chemical laboratory tester, he was eventually evaluated by Dari Good. Starting June of 2021 patient started having open left lower extremity wounds that were quite painful. He was admitted at the hospital in summer for evaluation of those wounds. 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 He was started on argatroban then switched to warfarin on discharge. Patient was evaluated by pumping plant operator in [place] Dr. Godwin who started patient on Rinvoq 3-4 months ago. Tear they state that the smaller lower extremity wounds have closed and the large wound is not getting worse and might be getting somewhat better. With regards to his joint pain patient states he is about the same, he has stiffness of his hands worse on the right hand. He has bilateral hand contractures from many years of RA. Current Rheumatology Medication(s): [facility] Medical History MDD (major depressive disorder), single episode Pressure injury of buttock, stage 1 Deep vein thrombosis 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 Acute pulmonary embolism with acute cor pulmonale Acute pulmonary embolism Cardiac arrest CKD (chronic kidney disease) stage 3, GFR 30-59 ml/min Sjogren's disease Leg pain, bilateral Elevated serum creatinine COPD (chronic obstructive pulmonary disease) HTN (hypertension) Rheumatoid arthritis Chronic ulcer of leg Surgical History History of ankle surgery History of hernia repair History of left knee replacement Family History Sister Breast cancer Father Aneurysm Mother Angina at rest Other No family history of coronary artery disease Social History Household Members: Spouse Housing: House Do you presently have visiting nurse or other home services: No Alcohol intake: current Alcohol intake frequency: holidays/special occasions only Comment: restraints Patient Tobacco Use Status: Former Tobacco user Tobacco use type: Cigarette Cigarette Packs Per Day: 1 Years Smoked: quit + years e-Cigarette/Vaping Use: Never Used Second Hand Smoke Exposure: No Advance Directives Date on File: 12/23/21 service: Yes Current occupational status: retired Cognitive needs: Yes (cane) Hearing needs: No Vision needs: Yes (Pt wear glasses. ) Review of Systems Const Details: Review of Systems Constitutional: Denies fever, chills, weight loss ENT: Denies vision changes, eye pain or eye redness, dental caries, dry mouth GI: Denies nausea, vomiting, diarrhea, abdominal pain, change in BM Pulm: Denies SOB, TERRY, hemoptysis, wheezing Cards: Denies chest pain, palpitations Skin: Denies Raynaud's, rash, nail changes, photosensitivity, GLOBAL LEAD: Denies headaches, weakness, paresthesias, recurrent falls MSK: as per HPI All other systems reviewed and are unremarkable except noted above Physical Exam Vital Signs: Last Vital Signs Pulse 76 12/13/24 10:34 BP 130/82 12/13/24 10:34 Pulse Ox 94 12/13/24 10:34 Oxygen Delivery Method Room Air 12/13/24 10:34 BMI result Body Mass Index 31.7 Vital signs reviewed Physical Examination CONSTITUITIONAL Patient alert and cooperative. Well appearing and in no apparent painful distress HEENT Conjunctiva and sclera clear. ?No lymphadenopathy. ? CHEST/RESPIRATORY SYSTEM Normal respiratory effort and able to speak in complete sentences. ?Clear to auscultation bilaterally. ?No crackles, rales, rhonchi, wheezes heard. CARDIAC SYSTEM Regular rate and rhythm. ?S1 and S2 heard no murmurs. ?Radial pulses intact bilaterally MSK Hands: ?Able to make a fist. No synovitis noted to the MCPs, PIPs or DIPs. ?No tenderness to palpation of these joints. No deformities noted. ? Wrists: ?Full range of motion at the wrists without pain. ?No tenderness to palpation or synovitis noted to the wrists. Elbows: Full range of motion without pain. No tenderness, weakness, swelling, increased warmth or erythema. Shoulders: Full range of active range of motion without pain. No tenderness, weakness, swelling, increased warmth or erythema. Knees: ?Full range of motion. ?No tenderness, swelling, increased warmth or erythema.?No effusion or crepitations Ankles: Full range of motion. ?No tenderness, swelling, increased warmth or eryt nidia.? Feet: ?Negative squeeze test. ?No tenderness to palpation or swelling of the MTPs. Tender points:?No tenderness to palpation of the bilateral trapezius, supraspinatus, greater trochanters, anterior costochondral junctions, bilateral gluteal areas, bilateral suboccipital muscle insertions SKIN Left lower leg with wound wrapped Picture seen on phone with large ulcerating wound Results Reviewed Results Reviewed: Laboratory Tests 11/27/24 11:52 WBC 8.9 RBC 5.52 Hgb 14.6 Hct 47.1 Plt Count 289 ESR 25 H Sodium 141 Potassium 4.2 Chloride 107 Carbon Dioxide 25 BUN 20 H Creatinine 1.34 AST 21 ALT 29 Alkaline Phosphatase 47 C-Reactive Protein 3.26 H Assessment & Plan Assessment & Plan (1) Rheumatoid arthritis: Comment: Ddx 1990s Treated with Enbrel for 15 years Changed to infliximab and prednisone at the onset of leg wounds with good response Switched to Kevzara 2021 due to breakthrough synovitis with good response initially Changed to Rinvoq without significant improvement in wounds Subsequently failed Humira, MMF for his wounds Code(s): M06.9 - Rheumatoid arthritis, unspecified Category: Medical Qualifiers: Rheumatoid arthritis location: multiple sites Rheumatoid factor presence: without rheumatoid factor Qualified Code(s): M06.09 - Rheumatoid arthritis without rheumatoid factor, multiple sites Plan: #Seronegative RA/Sjogrens overlap Patient is a 78-year-old male with seronegative rheumatoid arthritis/Sjogren's overlap here today for follow up. His autoimmune history is also complicated by pyoderma gangrenosum. With respect to his inflammatory arthritis his joints are under control with no evidence of active synovitis at this time. His significantly elevated inflammatory markers unlikely secondary to his large wound on his left lower extremity. At this time I think discussing the case with Dermatology and finding a treatment mainly geared at his pyoderma gangrenosum at this time would be most beneficial. Currently on a prednisone taper and not on any other immunosuppression It seems that infliximab and prednisone were good, shown to help both his rheumatoid arthritis and his pyoderma gangrenosum. Plan - Discuss case with dermatology - Consider Anakinra - RTC 3 months Torrie Rome, Melina Rome, Chery Lopez, Vasu Villareal, Coco Brandon. Anakinra for recalcitrant pyoderma gangrenosum. Clin Exp Dermatol. 2020;46(8):1511-0261. doi: 10.1111/figueroa.34654. Epub 2020Feb 26. PMID: [id number]. (2) Pyoderma gangrenosum: Comment: This is a 78-year-old male originally from [place], recently moved to [place] with past medical history of seronegative RA/Sjogren's (dry mouth +++Ro) diagnosed in the treated with Enbrel for at least 15 years years. Patient had right lower extremity wounds which were treated with Renflexis & prednisone with good results however he was having recurrent knee swelling. He was switched to Kevzara early 2021 with some improvement. Patient developed left lower extremity pyoderma gangrenosum. This started around June 2021. 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 He is currently on warfarin now switched to rivaroxaban by watermelon harvesting supervisor. This was discontinued months ago. Patient was started on Rinvoq by his pumping plant operator Dr. Omar Cantor in [place], with little improvement, then dose was increased from 15 mg daily to 30 mg daily for a few months without significant improvement. A steroid tapering course was prescribed 10 months ago which provided temporary improvement. Patient took 3 doses of Renflexis and it was discontinued due to a reaction with joint pain. He was then started on Humira, he took Humira 40 mg every other week then advanced to 40 mg weekly without improvement. He then failed CellCept. CellCept was discontinued. 04/2024 patient was admitted with COPD exacerbation and received IV steroids with improvement of his pyoderma gangr enosum wounds, he was advised by his pumping plant operator to continue with steroids, his steroids are being tapered, per once the dose was lowered to 10 mg a day he stopped getting any improvement. Reviewed records from patient's previous chemical laboratory tester when he had the left knee synovitis, synovial fluid showed CPPD crystals consistent with pseudogout. My belief is Renflexis and prednisone was working well for rheumatoid arthritis and pyoderma gangrenosum, when patient was switched to Kevzara the pyoderma gangrenosum recurred Code(s): L88 - Pyoderma gangrenosum Category: Medical Plan: #Pyoderma gangrenosum Currently following derm for wound care Will discuss possible treatment options with them Plan I spent 46 minutes reviewing the record and labs, taking a history, examining the patient, discussing the treatment plan, ordering diagnostic work up, contacting pumping plant operator and documenting in the medical record Coding Level of Care Code Est Pt Level 5 (23153) Complex EM visit Add On G2211 Diagnoses Rheumatoid arthritis of multiple sites with negative rheumatoid factor M06.09 Rheumatoid arthritis location: multiple sites Rheumatoid factor presence: without rheumatoid factor Pyoderma gangrenosum L88
[2024-12-13 10:34] VITALS: BP 130/82; PULSE 76; O2SAT 94; BMI 31.7
--- OUTSIDE RECORDS SUMMARY | 2024-12-13 10:58 | XMS_ITS | Clinical Summary ---
Author Organization [facility] Facility Address [address] [place] [address] Care Team Providers Care Program Counselor Name Role Phone Kia Stroud MD Primary Care Provider [phone] Social History Tobacco Use Types Packs/Day Years [...] Insurance A[employer]na Medicare Aena Medicare Care Teams Program Counselor Relationship Specialty Start Date End Date Kia Stroud MD [facility] [address] [place], [place] PCP - General Internal Medicine 12/04/21
== END 2024-12-13 11:31 | disposition home or self-care (01) ==
LOC: HO.RHE 10:20
PROVIDERS: PCP Internal Medicine; Visit Provider Student in an Organized Health Care Education/Training Program
DX: M06.09 Rheumatoid arthritis without rheumatoid factor, multiple sites (principal); L88 Pyoderma gangrenosum
CPT/HCPCS: 99215; G2211

== ENCOUNTER → 2024-12-13 10:19 | Outpatient (BNVA) | payer MEDICARE, SELFPAY | PROVIDERS: PCP Internal Medicine; Visit Provider Student in an Organized Health Care Education/Training Program | DX: M06.09 Rheumatoid arthritis without rheumatoid factor, multiple sites (principal); M35.00 Sjogren syndrome, unspecified; L88 Pyoderma gangrenosum | CPT/HCPCS: 99212 ==

== ENCOUNTER 2025-01-01 10:59 | Outpatient (AMB) | payer MEDICARE, SELFPAY ==
--- NOTE | 2025-01-01 11:01 | MHC.OFFVIS ---
Vital Signs 01/01/25 11:10 Height 5 ft 6 in Weight 196 lb BMI 31.6 BP 146/85 H Blood Pressure Location Rt brachial Position Sitting Pulse 92 Pulse Source Pulse Oximeter Pulse Oximetry (%) 98 Oxygen Delivery Method Room Air Intake Visit Reasons: Pill Count Intake Note: Sarath comes in today for a pill count to hydromorphone, patient should have 0 tablets and presents with 38 tablets which he last took about 2 weeks ago, pain today currently is a 0/10 but states when his pain is on its 7/10 Patient will also have a random UDS done today, aware that he needs to go to the lab on the first floor of this building today 01/01/25 before 12pm. Chemical Etching Processor Required: No Accompanied by: Spouse Allergies heparin (porcine) Allergy (Severe, Verified 01/01/25 11:11) HIT HPI Comments Details: Patient presents today for a pill count. Patient is supposed to have #0 pills, in his possession has #38 pills. His chronic left non-healing wound requires regular dressing changes, and the patient has been using hydromorphone sparingly, primarily when attending the wound care center. The patient is currently using tacrolimus cream as prescribed by a Souvenir And Novelty Maker in [place], with instructions to avoid continuous use. The patient is on a daily regimen of 5 mg prednisone, and reports recent blood work indicated elevated inflammation markers. There is ongoing communication between the Manager Retail Sales and the prescribing Physician regarding the management of these markers. Denies any fever, chills, weight loss, bleeding, weakness, dizziness, shortness of breaths, constipation, nausea, sedation, urinary retention or abdominal pain. [facility] Medical History MDD (major depressive disorder), single episode Pressure injury of buttock, stage 1 Deep vein thrombosis 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 Acute pulmonary embolism with acute cor pulmonale Acute pulmonary embolism Cardiac arrest CKD (chronic kidney disease) stage 3, GFR 30-59 ml/min Sjogren's disease Leg pain, bilateral Elevated serum creatinine COPD (chronic obstructive pulmonary disease) HTN (hypertension) Rheumatoid arthritis Chronic ulcer of leg Surgical History History of ankle surgery History of hernia repair History of left knee replacement Family History Sister Breast cancer Father Aneurysm Mother Angina at rest Other No family history of coronary artery disease Social History Household Members: Spouse Housing: House Do you presently have visiting nurse or other home services: No Alcohol intake: current Alcohol intake frequency: holidays/special occasions only Comment: restraints Patient Tobacco Use Status: Former Tobacco user Tobacco use type: Cigarette Cigarette Packs Per Day: 1 Years Smoked: quit + years e-Cigarette/Vaping Use: Never Used Second Hand Smoke Exposure: No Advance Directives Date on File: 12/23/21 service: Yes Current occupational status: retired Cognitive needs: Yes (cane) Hearing needs: No Vision needs: Yes (Pt wear glasses. ) Review of Systems Const All systems reviewed & are unremarkable except as noted in HPI and below Physical Exam General: Appears afebrile. No acute distress. Alert and oriented. Mood and affect appropriate. Follows and participates in conversation appropriately. Respiratory effort is unlabored. No cough. Sitting comfortably in the wheelchair. Left lower leg with dressing, dry and intact. Resp Effort & Inspection: normal respiratory effort, able to speak in complete sentences, no cough, no respiratory distress and No symmetric chest movement GI Inspection: Yes normal to inspection Palpation (GI): Soft to palpation, nontender and no guarding Psych Appearance: grossly normal and well kempt Mental Status: mental status grossly normal Speech and movement: Normal speech and movement present and Clear speech present Affect: normal affect Attitude: cooperative Thought process: Normal thought process present Thought content: Normal thought content present, suicidality (none), no hallucinations and No Depressive thoughts present Insight: Good insight present (Psych) Judgement: Good judgement present (Psych) Results Reviewed Results Reviewed: Assessment & Plan Assessment & Plan (1) Chronic pain of left lower extremity: Code(s): M79.605 - Pain in left leg; G89.29 - Other chronic pain Category: Medical (2) Peripheral neuropathy: Code(s): G62.9 - Polyneuropathy, unspecified Category: Medical (3) Non-healing wound of left lower extremity: Code(s): S81.802A - Unspecified open wound, left lower leg, initial encounter Category: Medical (4) Pyoderma gangrenosum: Comment: This is a 78-year-old male originally from [place], recently moved to [place] with past medical history of seronegative RA/Sjogren's (dry mouth +++Ro) diagnosed in the treated with Enbrel for at least 15 years years. Patient had right lower extremity wounds which were treated with Renflexis & prednisone with good results however he was having recurrent knee swelling. He was switched to Kevzara early 2021 with some improvement. Patient developed left lower extremity pyoderma gangrenosum. This started around June 2021. 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 He is currently on warfarin now switched to rivaroxaban by quality assurance assistant. This was discontinued months ago. Patient was started on Rinvoq by his life agent Dr. Omar Cantor in [place], with little improvement, then dose was increased from 15 mg daily to 30 mg daily for a few months without significant improvement. A steroid tapering course was prescribed 10 months ago which provided temporary improvement. Patient took 3 doses of Renflexis and it was discontinued due to a reaction with joint pain. He was then started on Humira, he took Humira 40 mg every other week then advanced to 40 mg weekly without improvement. He then failed CellCept. CellCept was discontinued. 04/2024 patient was admitted with COPD exacerbation and received IV steroids with improvement of his pyoderma gangrenosum wounds, he was advised by his life agent to continue with steroids, his steroids are being tapered, per once the dose was lowered to 10 mg a day he stopped getting any improvement. 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 My belief is Renflexis and prednisone was working well for rheumatoid arthritis and pyoderma gangrenosum, when patient was switched to Kevzara the pyoderma gangrenosum recurred Code(s): L88 - Pyoderma gangrenosum Category: Medical (5) Chronic, continuous use of opioids: Code(s): F11.90 - Opioid use, unspecified, uncomplicated Category: Medical Plan Patient has shown accountability for his medication regimen and the pill count was accurate. There is no evidence of misuse, abuse or diversion at this time. Fitbayt reviewed. Will hold off script for hydromorphine 2 mg BID prn due to surplus in pill count today, he takes it for wound care/dressing changes only. Continue duloxetine, gabapentin and Tylenol as needed. [facility] with [facility] as scheduled. The patient is encouraged to discuss the potential use of a Expedite Therapeutic Nutritional Drink collagen supplement with Dermatology and Wound care specialists to explore its benefits for wound healing. All questions were answered and the patient is in agreement with the plan. Follow up in 5 weeks for a pill count or sooner if needed. Patient was informed and verbally consented to the use of an ambient scribe for clinic note documentation during this visit. Coding Level of Care Code Est Pt Level 3 (17943) Complex EM visit Add On G2211 Diagnoses Chronic pain of left lower extremity M79.605; G89.29 Peripheral neuropathy G62.9 Non-healing wound of left lower extremity S81.802A Pyoderma gangrenosum L88 Chronic, continuous use of opioids F11.90
[2025-01-01 11:10] VITALS: BP 146/85; PULSE 92; O2SAT 98; BMI 31.6
--- OUTSIDE RECORDS SUMMARY | 2025-01-01 12:32 | XMS_ITS | Clinical Summary ---
Author Organization [facility] Facility Address [address] [place] [id number] Care Team Providers Care Retail Salesperson Name Role Phone Kia Stroud MD Primary Care Provider [phone] Social History Tobacco Use Types Packs/Day Years [...] Insurance A[employer]na Medicare Aena Medicare Care Teams Retail Salesperson Relationship Specialty Start Date End Date Kia Stroud MD [facility] [address] [place], [place] PCP - General Internal Medicine 12/04/21
== END 2025-01-01 11:31 | disposition home or self-care (01) ==
LOC: HO.PMC 10:59
PROVIDERS: PCP Internal Medicine; Visit Provider Nurse Practitioner Family
DX: M79.605 Pain in left leg (principal); G89.29 Other chronic pain; G62.9 Polyneuropathy, unspecified; S81.802A Unspecified open wound, left lower leg, initial encounter; L88 Pyoderma gangrenosum; Z79.891 Long term (current) use of opiate analgesic
CPT/HCPCS: 99213; G2211

== ENCOUNTER → 2025-01-01 10:59 | Outpatient (BNVA) | payer MEDICARE, SELFPAY | PROVIDERS: PCP Internal Medicine; Visit Provider Nurse Practitioner Family | DX: M79.605 Pain in left leg (principal); G89.29 Other chronic pain; G62.9 Polyneuropathy, unspecified; L88 Pyoderma gangrenosum; S81.802D Unspecified open wound, left lower leg, subsequent encounter; X58.XXXD Exposure to other specified factors, subsequent encounter | CPT/HCPCS: 99212 ==

== ENCOUNTER 2025-01-17 12:44 | Outpatient (REF) | payer MEDICARE, SELFPAY ==
--- OUTSIDE RECORDS SUMMARY | 2025-01-17 13:37 | XMS_ITS | Clinical Summary ---
Author Organization [facility] Facility Address [address] [place] [id number] Care Team Providers Care Side Gluer Name Role Phone Kia Stroud MD Primary Care Provider [phone] Social History Tobacco Use Types Packs/Day Years Used Date Smoking Tobacco: Never Assessed Sex and Gender Information Value Date Recorded Sex Assigned at Not on file Legal Sex Male 10:48 AM EDT Gender Identity Not on file Sexual Orientation Not on file Plan of Treatment Health Maintenance Due Date Last Done Comments Pneumococcal Vaccine: 50+ Ye ars (1 of 1 - PCV) 11/06/1995 Influenza Vaccine (#1) 2025 Hepatitis B Vaccine Aged Out No longe r eligible based on patient's age to complete this topic Insurance Aetna Medicare Aena Medicare Care Teams Side Gluer Relationship Specialty Start Date End Date Kia Stroud MD [facility] [address] [place], [place] PCP - General Internal Medicine 12/04/21
--- OUTSIDE RECORDS SUMMARY | 2025-01-17 13:38 | XMS_ITS | Patient Health Record ---
Author Organization [facility] Address [address] [place] [phone] Care Team Providers Care Bottom Stop Attacher Name Role Phone Lalitha MORALES, William Primary Care Provider Kong Nava Unavailable [phone] Arnav Limon Unavailable Unavailable Allergies No Known Allergies Reason For Referral No Information Medications Medication SIG (Take, Route, Frequency, Duration) Notes Start Date End Date Status Enbrel SureClick 50 MG/ML Subcutaneous Active Problems Problem Type SNOMED Code ICD Code Onset Dates Problem Status W/U Status Risk Notes Problem Skin ulcer of calf (317308256) Ulcer (skin exp) LEFT CALF (L97.221) Active confirmed Problem Varicose veins of lower extremity (29617924) Vikash Insuf (other compl) LEFT (I83.892) Active confirmed Problem Vikash Insuf (ulcer) LEFT CALF (I83.022) Active confirmed Plan Of Treatment No Information Insurance Providers Payer Name Payer Address Payer Phone Subscriber Number Group Number Insured Name Patient Relationship to Insured Coverage Start Date Coverage End Date [employer] Blue [address] [place] [address] [id number] Sarath Gipson Self - patient is the insured [employer] PPO,EPO & Medigap [address] [place] [address] [id number] 2 Farideh Gipson Spouse - patient is the spouse of the insured [employer] [address] [place] [address] [id number] Sarath Gipson Self - patient is the insured 8
[2025-01-17 16:10] LABS: B Type Natriuretic Peptide 44 pg/mL (<100)
== END 2025-01-17 12:45 | disposition home or self-care (01) ==
LOC: HO.HMGCLDS 12:44
PROVIDERS: PCP Internal Medicine; Visit Provider Nurse Practitioner Family
DX: R06.00 Dyspnea, unspecified (principal)
CPT/HCPCS: 36415; 83880

== ENCOUNTER 2025-01-22 10:26 | Outpatient (REF) | payer MEDICARE, SELFPAY ==
--- OUTSIDE RECORDS SUMMARY | 2024-10-20 09:30 | XMS_ITS | Encounter Summary ---
Author Name [facility] [facility] [place] Address [address] [place] [id number] Care Team Providers Care Crankshaft Straightener Name Role Phone LYDIA MG Primary Care [...] Holland's Name Patient's Relationship to Policy [facility] ADVANTAGE MCR ([facility]) Jul 12, 2023 [id number] [phone] [place] LLIAM PATIENT [facility] ([facility]) MEDICARE ADVANTAGE MCR ([facility]) Jul 12, 2023 [id number] [phone] [place] LLIAM PATIENT [facility] (WNR) MEDICARE ADVANTAGE MCR ([facility]) Jul 12, 2019 [id number] [place] LLIAM [facility] ([facility] MEDIC[facility] ADVANTAGE MCR (WNR) Jul 12, 2018 [id number] [phone] QUEENIESC SIMÓNIAM PATIENT EMPIRE [employer] MCR (WNR) MEDICARE [facility] (WNR) Sep 09, 2017 [id number] [facility] PATIENT [place] BLUE CROSS MCR (WNR) MEDICARE [facility] (WNR) Jul 12, 2017 [id number] QUEENIESC SIMÓNIAM PATIENT Selected Encounter This section includes the information on record at [place] for the Encounter. Date/Time Encounter Type Encounter Description Reason Provider Source Oct 20, 2024 01:30 PM OFFICE O/P EST LOW 20 MIN PRIMARY CARE/MEDICINE ICD-10-CM M35.00 Sjogren syndrome, unspecified VANWAGNER,WILL LAURA F IHE Encounter Template Text not used by [place] Assessments - Encounter Diagnoses This section includes the primary and secondary diagnoses documented for the Encounter. Date/Time Primary/Secondary Diagnosis Diagnosis Name Provider Source Oct 20, 2024 01:52 PM PRIMARY Sjogren syndrome, unspecified VANWAGNER,WILL LAURA F [facility] CNT [facility] [place] [facility] Oct 20, 2024 01:52 PM SECONDARY Acute embolism and thrombosis of deep vn unsp up extrem VANWAGNER,WILL LAURA F [facility] CNTR [facility] [place] [facility] Oct 20, 2024 01:52 PM SECONDARY Chronic obstructive pulmonary disease, unspecified VANWAGNER,WILL LAURA F [facility] [place] [facility] Oct 20, 2024 01:52 PM SECONDARY Pain, unspecified VANWAGNER,WILL LAURA F [facility] WSN [place] [facility] Plan of Treatment: Future Appointments [...] Appointment Type Appointme nt Facility Name November 29, 2024 03:00 PM AMBULATORY - MEDICINE [facility] NTR[facility] TR[facility] Jan 16, 2025 11[facility]15 AM [facility] - NONE [facility] Vital Signs: All taken on the encounter date This section contains inpatient and outpatient Vital Signs collected on the date of the Encounter. Date/Time Temperature Pulse Blood Pressure Respiratory Rate SP02 Pain Height Weight Body Mass Index Source Oct 20, 2024 01:06 PM 98.3 80 124/78 16 92 7 196 32 [facility] Social History: Smoking Status (Most [...] ity Jun 01, 2024 10:57 AM VA-TOBACCO NEVER U SED OTHER TYPE [facility] Tobacco Use History This section includes a history of the smoking, or tobacco-related health factors, that were collected on or before the date of the Encounter. The data comes from the [place] facility where the Encounter took place. Date/Time Smoking Status/Tobacco Use Comment F acility Jun 01, 2024 10:57 AM VA-TOBACCO USE FOR AKANKSHA CIGARETTES [facility] Jan 22, 2023 01:30 PM VA-TOBACCO FORMER USER [facility] Jan 22, 2023 01:30 PM VA-TOBACCO QUIT 5 TO < 15 YRS [facility] Feb 17, 2022 04:37 PM VA-TOBACCO FORMER USER [facility] Feb 17, 2022 04:37 PM VA-TOBACCO QUIT 1 TO < 5 YRS [facility] Advance Directives: All historical and current Section [...] Oct 26, 2023 ADVANCE DIRECTIVE MARGARITA KRAFT HI CN TRL WSTRN [place] [facility] Encounter Notes: All associated encounter notes This section contains the clinical notes associated to the Encounter. Date/Time Encounter Note(s) Provider Source Oct 20, 2024 02:23 PM ADDENDUM: LOCAL TITLE: Addendum STANDARD TITLE: ADDENDUM DATE OF NOTE: OCT 20, 2024@14:23:07 ENTRY DATE: OCT 20, 2024@14:23:08 AUTHOR: MIRELA TEJEDA COSIGNER: URGENCY: STATUS: COMPLETED LCS Coordinator placed call to [facility] radiology department, was advised CXR completed in April [address] chest completed November 2023. Requested both reports to be faxed to . LCS Coordinator placed a call to [facility] , per office Jamison was referred via private insurance from pain management provider at [facility] to the pulmonary team in September 2023. Jamison has completed a CT scan with [facility] in November 2023, was seen most recently by Isamar Lock NP [facility] pulmonary in September [address] of the chest in November 2024. Advised that Jamison is enrolled in LCS through [place] [facility] with annual LCS LDCT in January 2023 and January 2024 with plan for imaging in January 2025. Advised that offices should coordinate so that is not being scanned at a frequency that is not clinically indicated. Direct call back number for LCS Coordinator provided for Isamar Lock NP. Per [facility] Pulm medical records are required to be requested via fax request to . Request for clinical notes, PFTs, CT scan reports/chest imaging faxed via [employer] on 10/20/2024 with confirmed receipt. /flor/ MIRELA MOTA,RN,OCN LUNG CANCER SCREENING NURSE NAVIGATOR Signed: 10/20/2024 14:49 Receipt Acknowledged By: 10/20/2024 14:59 /es/ JOSHUA YANEZ, RICKEY REGISTERED NURSE 10/22/2024 08:09 /flor/ Valentín Amador PA-C STAFF PHYSICIAN PACKING AND STAMPING MACHINE OPERATOR ====== --- Original Document --- 10/20/24 TIMOTEO NOTE: CC/HPI/A/P: 78 year old MALE here in follow-up for; wound left leg, re-enter wound consult. We adjust the amount of his diapers as well. MRS will likely have a TKA this year. We discuss needs. They doubt he will need inpatient snf but would need SKILLINED nursing at home to supplement family members until MRS can resume his home drsg changes. Review of systems: Patient reports no changes [...] 5. COPD - Chronic Obstructive Pulmonary Disease ([facility] [id number]) 6. Depression ([facility] [id number]) 7. Deep venous thrombosis of upper extremity Left 8. H/O: rheumatoid arthritis 9. Sjogren syndrome 10. PE - Pulmonary Embolism ([facility] [id number]) SERVICE CONNECTED % - 80 VA and Non VA meds were reconciled with the patient who left with a corrected copy. See medication page for details. Active and Recently Outpatient Medications (excluding Supplies): Active Non-VA Medications Status ====== 1) Non-VA ACETAMINOPHEN 500MG TAB 1000MG BY [...] Indication: TO PREVENT BLOOD CLOTS 10) Non-VA [id number]/VILANTE [id number] 30D INH 1 INHALATION ACTIVE BY MOUTH ONCE DAILY 11) Non-VA UPADACITINIB 15MG 24HR SA TAB 15MG BY MOUTH ONCE ACTIVE DAILY 98.3 F [36.8 C] (10/20/2024 13:06) 80 (10/20/2024 13:06) 16 (10/20/2024 13:06) 124/78 (10/20/2024 13:06) 7 (10/20/2024 13:06) 66 in [167.6 cm] (02/25/2022 12:17) 196 lb [88.90 kg] (10/20/2024 13:06) BMI: 31.7 Neuro: Alert and oriented times three, grossly nonfocal, nasolabial folds intact. W/c Good spirits I will ask pact RN to review above and ask LCS coordinator to deconflict here vs [facility] where they report pulm consult with imaging/ct since an april admission for hypoxia/oxygenation. /flor/ Valentín Amador PA-C STAFF PHYSICIAN PACKING AND STAMPING MACHINE OPERATOR Signed: 10/20/2024 13:52 Receipt Acknowledged By: 10/20/2024 14:13 /es/ JOSHUA YANEZ, RN REGISTERED NURSE 10/20/2024 14:22 /es/ MIRELA KINGN,RN,OCN LUNG CANCER SCREENING NURSE NAVIGATOR 10/20/2024 ADDENDUM STATUS: COMPLETED Respite Care can be provider when dates needed available to enter consult. /es/ JOSHUA YANEZ, RICKEY REGISTERED NURSE Signed: 10/20/2024 14:14 10/20/2024 ADDENDUM STATUS: COMPLETED Images requested for CT Chest 11/2023 and CXR 04/2024, [facility] radiology team notified. /flor/ MIRELA MOTA,RN,OCN LUNG CANCER SCREENING NURSE NAVIGATOR Signed: 10/20/2024 14:58 MIRELA TEJEDA [facility] [place] [facility] Oct 20, 2024 01:47 PM PHYSICIAN PACKING AND STAMPING MACHINE OPERATOR NOTE: LOCAL TITLE: PA NOTE STANDARD TITLE: PHYSICIAN PACKING AND STAMPING MACHINE OPERATOR NOTE DATE OF NOTE: OCT 20, 2024@13:47 ENTRY DATE: OCT 20, 2024@13:47:21 AUTHOR: VALENTÍN AMADOR COSIGNER: URGENCY: STATUS: COMPLETED TIMOTEO NOTE Has ADDENDA CC/HPI/A/P: 78 year old MALE here in follow-up for; wound left leg, re-enter wound consult. We adjust the amount of his diapers as well. will likely have a TKA this year. We discuss needs. They doubt he will need inpatient snf but would need SKILLINED nursing at home to supplement family members until MRS can resume his home drsg changes. Review of systems: Patient reports no changes [...] 5. COPD - Chronic Obstructive Pulmonary Disease ([facility] [id number]) 6. Depression ([facility] [id number]) 7. Deep venous thrombosis of upper extremity Left 8. H/O: rheumatoid arthritis 9. Sjogren syndrome 10. PE - Pulmonary Embolism ([facility] [id number]) SERVICE CONNECTED % - 80 VA and Non VA meds were reconciled with the patient who left with a corrected copy. See medication page for details. Active and Recently Outpatient Medications (excluding Supplies): Active Non-VA Medications Status ====== 1) Non-VA ACETAMINOPHEN 500MG TAB 1000MG BY [...] Indication: TO PREVENT BLOOD CLOTS 10) Non-VA [id number]/VILANTE [id number] 30D INH 1 INHALATION ACTIVE BY MOUTH ONCE DAILY 11) Non-VA UPADACITINIB 15MG 24HR SA TAB 15MG BY MOUTH ONCE ACTIVE DAILY 98.3 F [36.8 C] (10/20/2024 13:06) 80 (10/20/2024 13:06) 16 (10/20/2024 13:06) 124/78 (10/20/2024 13:06) 7 (10/20/2024 13:06) 66 in [167.6 cm] (02/25/2022 12:17) 196 lb [88.90 kg] (10/20/2024 13:06) BMI: 31.7 Neuro: Alert and oriented times three, grossly nonfocal, nasolabial folds intact. W/c Good spirits I will ask pact RN to review above and ask [facility] with imaging/ct since an april admission for hypoxia/oxygenation. /flor/ Valentín Amador PA-C STAFF PHYSICIAN PACKING AND STAMPING MACHINE OPERATOR Signed: 10/20/2024 13:52 Receipt Acknowledged By: 10/20/2024 14:13 /flor/ JOSHUA YANEZ RN REGISTERED NURSE 10/20/2024 14:22 /flor/ MIRELA MOTA,RN,OCN LUNG CANCER SCREENING NURSE NAVIGATOR 10/20/2024 ADDENDUM STATUS: COMPLETED Respite Care can be provider when dates needed available to enter consult. /flor/ JOSHUA YANEZ RN REGISTERED NURSE Signed: 10/20/2024 14:14 10/20/2024 ADDENDUM STATUS: COMPLETED LCS Coordinator placed call to [facility] radiology department, was advised CXR completed in April [address] chest completed November 2023. Requested both reports to be faxed to . LCS Coordinator placed a call to [facility] , per office was referred via private insurance from pain management provider at [facility] to the pulmonary team in September 2023. has completed a CT scan with [facility] in November 2023, was seen most recently by Isamar Lock NP [facility] pulmonary in September [address] of the chest in November 2024. Advised that Jamison is enrolled in LCS through [facility] with annual LCS LDCT in January 2023 and January 2024 with plan for imaging in January 2025. Advised that offices should coordinate so that Jamison is not being scanned at a frequency that is not clinically indicated. Direct call back number for LCS Coordinator provided for Isamar Lock NP. Per [facility] Pulm medical records are required to be requested via fax request to . Request for clinical notes, PFTs, CT scan reports/chest imaging faxed via [employer] on 10/20/2024 with confirmed receipt. /flor/ MIRELA MOTA,RN,OCN LUNG CANCER SCREENING NURSE NAVIGATOR Signed: 10/20/2024 14:49 Receipt Acknowledged By: 10/20/2024 14:59 /maury YANEZ RN REGISTERED NURSE 10/22/2024 08:09 /flor/ Valentín Amador PA-C STAFF PHYSICIAN PACKING AND STAMPING MACHINE OPERATOR 10/20/2024 ADDENDUM STATUS: COMPLETED Images requested for CT Chest 11/2023 and CXR 04/2024, [facility] radiology team notified. /maury MOTA,RN,OCN LUNG CANCER SCREENING NURSE NAVIGATOR Signed: 10/20/2024 14:58 10/23/2024 ADDENDUM STATUS: COMPLETED Lcs Coordinator received a phone call from Isamar Davidson NP with [facility] pulmonary who states prior imaging was for post hospital follow up, they will cancel scan scheduled for November and may resume imaging through [facility] program as previously enrolled with next imaging due in January 2025. LCS Coordinator placed a call to Jamison. Voicemail left identifying caller as LCS Coordinator, rationale for call briefly explained. Direct call back number for coordinator provided. /maury MOTA,RICKEY,OCN LUNG CANCER SCREENING NURSE NAVIGATOR Signed: 10/23/2024 15:26 10/24/2024 ADDENDUM STATUS: COMPLETED LCS Coordinator received a call back from Jude, ananth . Discussed plan to [facility] the [facility]. LCS Coordinator will reach out to Jamison and by phone once images of Chest CT 11/2023 and CXR 04/2024 are received from [facility] and reviewed with radiologist to ensure Blanca is appropriate follow up time frame. In the interim, Jamison was scheduled for LCS LDCT 01/16/2025 at 11:15am. /maury MOTA,RICKEY,OCN LUNG CANCER SCREENING NURSE NAVIGATOR Signed: 10/24/2024 15:30 11/09/2024 ADDENDUM STATUS: COMPLETED Received CXR only, call placed to [facility] Radiology, second request for 11/23/2023 CT scan via phone call, followed by repeat fax request on 11/09/2024 via [employer] with confirmed receipt to alt fax number provided by Radiology: . Additionally, [facility] report of 01/06/2024 CT Chest completed at [facility]. [facility] Radiology team requesting images. /maury MOTA,RN,OCN LUNG CANCER SCREENING NURSE NAVIGATOR Signed: 11/09/2024 09:13 12/22/2024 ADDENDUM STATUS: COMPLETED Per [facility] Jonathan [place] CT scan images received and uploaded on 12/20/2024. /flor/ MIRELA MOTA,RN,OCN LUNG CANCER SCREENING NURSE NAVIGATOR Signed: 12/22/2024 12:55 VALENTÍN AMADOR [facility]L [facility] [place] [facility] Oct 20, 2024 01:27 PM ACCOUNTING OF DISCLOSURES NOTE: LOCAL TITLE: STATE PRESCRIPTION DRUG MONITORING PROGRAM STANDARD TITLE: ACCOUNTING OF DISCLOSURES NOTE DATE OF NOTE: OCT 20, 2024@13:27:01 ENTRY DATE: OCT 20, 2024@13:27:01 AUTHOR: VALENTÍN AMADOR EXP COSIGNER: URGENCY: STATUS: COMPLETED This PDMP query was submitted by Valentín Amador PA. The clinical justification for this PDMP query is to review controlled substances prescribed outside of the [facility], and any additional information that may become available, as an important component of standard clinical care, and in accordance with [facility] policy. Patient information was shared with the PDMP [place]. Prescription(s) filled outside the [facility] in the last 90 days are noted. However, they do not raise significant safety concerns and do not influence the treatment plan at this time. Total Prescriptions: 32 Total Prescribers: 2 Total Pharmacies: 2 Narcotics* (excluding Buprenorphine) Current Qty: 0 Current MME/day: 0.00 30 Day Avg MME/day: 0.00 Buprenorphine* Current Qty: 0 Current mg/day: 0.00 30 Day Avg mg/day: 0.00 Prescriptions Prescriptions Total Prescriptions: 32 Total Private Pay: 0 Fill Date ID Written Sold Drug Qty Days Prescriber Rx # Pharmacy Refill Daily Dose * Pymt Type EQUINE DENTIST 08/22/2024 1 08/21/2024 08/23/2024 Gabapentin 600 Mg Tablet 90.00 90 Ol Buc [id number] [facility]859[facility] 0/1 [place] 08/14/2024 1 08/14/2024 08/15/2024 Triazolam 0.25 Mg Tablet 1.00 1 Do Lei [id number] [facility] (8769[facility] 0/0 [place] 08/03/2024 1 08/03/2024 08/07/2024 Hydromorphone 2 Mg Tablet 30.00 30 Ol Buc [id number] [facility] (4113) 0/0 10.00 MME Medicare [place] 07/11/2024 1 05/01/2024 07/13/2024 Gabapentin 800 Mg Tablet 90.00 90 Ol Buc [id number] [facility] (4079) 07/14 [place] 05/29/2024 1 05/22/2024 05/30/2024 Hydromorphone 2 Mg Tablet 30.00 30 Ol Buc [id number] [facility] (4113) 0/0 10.00 MME [place] 05/01/2024 1 05/01/2024 05/01/2024 Gabapentin 800 Mg Tablet 90.00 90 Ol Buc [id number] [facility] (4079) [place] 04/17/2024 1 04/17/2024 04/21/2024 Gabapentin 600 Mg Tablet 90.00 30 Ol Buc [id number] [facility] (4079) 0/0 [place] /flor/ Valentín Amador PA-C STAFF PHYSICIAN PACKING AND STAMPING MACHINE OPERATOR Signed: 10/20/2024 13:47 VALENTÍN AMADOR [facility] CNTRL [facility] Oct 20, 2024 01:09 PM PREVENTIVE MEDICINE NURSING NOTE: LOCAL TITLE: CLINICAL REMINDERS/NURSING STANDARD TITLE: PREVENTIVE MEDICINE NURSING NOTE DATE OF NOTE: OCT 20, 2024@13:09 ENTRY DATE: OCT 20, 2024@13:09:21 AUTHOR: HARPAL VILLALBA EXP COSIGNER: URGENCY: STATUS: COMPLETED Suicide Screen: C-SSRS Screening [place] Suicide Severity Rating Scale (C-SSRS) screener 1. Over the past month, have you wished you were or wished you could go to sleep and not wake up? No 2. Over the past month, have you had any actual thoughts of killing yourself? No 3. Over the past month, have you been thinking about how you might do this? Response not required due to responses to other questions. 4. Over the past month, have you had these thoughts and had some intention of acting on them? Response not required due to responses to other questions. 5. Over the past month, have you started to work out or worked out the details of how to kill yourself? Response not required due to responses to other questions. 6. If yes, at any time in the past month did you intend to carry out this plan? Response not required due to responses to other questions. 7. In your lifetime, have you ever done anything, started to do anything, or prepared to do anything to end your life (for example, collected pills, obtained a gun, gave away valuables, went to the roof but didn't jump)? No 8. If YES, was this within the past 3 months? Response not required due to responses to other questions. /flor/ HARPAL VILLALBA LPN Signed: 10/20/2024 13:10 HARPAL VILLALBA CNTRL WSN [facility] HCS
--- OUTSIDE RECORDS SUMMARY | 2025-01-22 11:10 | XMS_ITS | Clinical Summary ---
Author Organization [facility] Address [address] [place] [id number] Care Team Providers Care Event Staff Name Role Phone Kia Stroud MD Primary Care Provider [phone] Social History Tobacco Use Types Packs/Day Years [...] Insurance A[employer]na Medicare Aena Medicare Care Teams Event Staff Relationship Specialty Start Date End Date Kia Stroud MD [facility] [address] [place], [place] PCP - General Internal Medicine 12/04/21
--- OUTSIDE RECORDS SUMMARY | 2025-01-22 11:10 | XMS_ITS | Patient Health Record ---
Author Organization [facility] Address [address] [place] [phone] Care Team Providers Care Sat Tutor Name Role Phone Lalitha MORALES, William Primary Care Provider Kong Nava Unavailable [phone] Arnav Limon Unavailable Unavailable Allergies No Known Allergies Reason For Referral No Information Medications Medication SIG (Take, Route, Frequency, Duration) Notes Start Date End Date Status Enbrel SureClick 50 MG/ML Subcutaneous Active Problems Problem Type SNOMED Code ICD Code Onset Dates Problem Status W/U Status Risk Notes Problem Skin ulcer of calf (828749643) Ulcer (skin exp) LEFT CALF (L97.221) Active confirmed Problem Varicose veins of lower extremity (44580222) Vikash Insuf (other compl) LEFT (I83.892) Active confirmed Problem Vikash Insuf (ulcer) LEFT CALF (I83.022) Active confirmed Plan Of Treatment No Information Insurance Providers Payer Name Payer Address Payer Phone Subscriber Number Group Number Insured Name Patient Relationship to Insured Coverage Start Date Coverage End Date [employer] Blue [address] [place] [address] [id number] Sarath Gipson Self - patient is the insured [employer] PPO,EPO & Medigap [address] [place] [address] [id number] Farideh Gipson Spouse - patient is the spouse of the insured [employer] [address] [place] [address] [id number] Sarath Gipson Self - patient is the insured 8
[2025-01-22 13:56] LABS: MANUAL DIFF FLAG NO
[2025-01-22 14:10] LABS: Hematocrit 41.0 % (42.0-52.0); Hemoglobin 12.5 g/dl (14.0-18.0); Imm Gran Abs Auto 0.07 X10*3/uL (0.00-0.03); Imm Gran Pct Auto 0.8 % (0.0-0.4); Lymphocytes Absolute Auto 1.0 X10*3/uL (1.2-4.9); Mean Corpuscular HGB Conc 30.5 g/dl (31.0-36.0); Mean Corpuscular Hemoglobin 25.5 pg (27.0-33.0); Mean Corpuscular Volume 83.5 fL (80.0-98.0); NRBC Abs Auto 0.000 X10*3/uL (0.0-0.012); NRBC Pct Auto 0.0 /100WBC (0.0-0.2); Platelet Count 346 X10*3/uL (160-400); Red Blood Count 4.91 X10*6/uL (4.60-5.80); White Blood Count 9.0 X10*3/uL (4.8-10.8)
[2025-01-22 14:42] LABS: Alanine Aminotransferase 28 U/L (0-40); Albumin Level 3.9 g/dL (3.5-5.0); Alkaline Phosphatase 43 U/L (39-117); Anion Gap 14 (12-20); Aspartate Amino Transferase 23 U/L (5-37); Blood Urea Nitrogen 18 mg/dL (9-16); Calcium 9.5 mg/dL (8.4-10.2); Carbon Dioxide 24 mmol/L (22-29); Chloride 108 mmol/L (96-108); Estimated Glomerular Filt Rate 51; Potassium 4.2 mmol/L (3.3-5.1); Sodium 142 mmol/L (135-145); Total Protein 7.1 g/dL (6.5-8.0)
[2025-01-22 14:47] LABS: Thyroid Stimulating Hormone 1.67 uIU/mL (0.32-4.0)
== END 2025-01-22 10:27 | disposition home or self-care (01) ==
LOC: HO.HMGCLDS 10:26
PROVIDERS: PCP Internal Medicine; Visit Provider Internal Medicine
DX: R06.00 Dyspnea, unspecified (principal)
CPT/HCPCS: 36415; 80053; 84443; 85025

== ENCOUNTER 2025-01-29 09:50 | Outpatient (AMB) | payer MEDICARE, SELFPAY ==
--- NOTE | 2025-01-29 09:56 | MHC.OFFVIS ---
Vital Signs 01/29/25 09:57 Height 5 ft 6 in Weight 196 lb BMI 31.6 BP 100/62 Blood Pressure Location Rt brachial Position Sitting Pulse 88 Pulse Source Monitor Intake Visit Reasons: Follow up Director Erp Required: No Service Support Representative: Service Support Representative Present Allergies heparin (porcine) Allergy (Severe, Verified 01/29/25 10:00) HIT Medication List - Last Reconciled 01/29/25 by Majo Barrera, [employer] SALES RECORD SUPERVISOR-C acetaminophen (Tylenol Extra Strength) 1,000 mg PO Q6H PRN albuterol sulfate 90 mcg/actuation 2 puffs inhalation Q6H PRN amlodipine 2.5 mg PO DAILY amoxicillin mg PO duloxetine 20 mg PO BEDTIME fluticasone propionate 50 mcg/actuation (Flonase Allergy Relief) 2 sprays intranasal DAILY PRN eagubjosjrh-zkhxesxtd-jmdwzmux 100-62.5-25 mcg (Trelegy Ellipta) 1 inh inhalation DAILY gabapentin 600 mg PO BID 30 days Lactobac. rhamnosus GG-inulin 20 billion cell -200 mg (Culturelle Ultimate) 1 cap PO DAILY 2 weeks metoprolol succinate ER 50 mg PO DAILY miscellaneous medical supply As directed naloxone 4 mg/actuation (Narcan) 4 mg intranasal Q2M PRN prednisone 5 mg PO DAILY HPI HPI Follow up: Details: Sarath is a 79-year-old male with past medical history of hypertension, pulmonary embolism with cardiac arrest 01/2022 with episodes of wide complex rhythm at that time which was thought to be SVT with aberrancy, COPD who presents for follow-up. Today he reports he presents with his who expresses concern that Sarath has been having increasing fatigue. His symptom was worse 2 weeks ago and it has improved slightly. He was using a new cream for his wounds and 1 of the potential side effects is fatigue the so they stopped it. He also has been wearing his nighttime oxygen during the day when he is feeling short of breath. He is compliant with nighttime use. He has not had any chest discomfort at rest or with activity. No heart palpitations, lightheadedness, presyncope, syncope. He tells me he now has wounds on each ankle and continues to follow with [facility]. He uses a wheelchair and is unable to walk because when he does his wounds open up more. Compliant with all his medications. [facility] Medical History MDD (major depressive disorder), single episode Pressure injury of buttock, stage 1 Deep vein thrombosis 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 Acute pulmonary embolism with acute cor pulmonale Acute pulmonary embolism Cardiac arrest CKD (chronic kidney disease) stage 3, GFR 30-59 ml/min Sjogren's disease Leg pain, bilateral Elevated serum creatinine COPD (chronic obstructive pulmonary disease) HTN (hypertension) Rheumatoid arthritis Chronic ulcer of leg Surgical History History of ankle surgery History of hernia repair History of left knee replacement Family History Sister Breast cancer Father Aneurysm Mother Angina at rest Other No family history of coronary artery disease Social History Household Members: Spouse Housing: House Do you presently have visiting nurse or other home services: No Alcohol intake: current Alcohol intake frequency: holidays/special occasions only Comment: restraints Patient Tobacco Use Status: Former Tobacco user Tobacco use type: Cigarette Cigarette Packs Per Day: 1 Years Smoked: quit + years e-Cigarette/Vaping Use: Never Used Second Hand Smoke Exposure: No Advance Directives Date on File: 12/23/21 service: Yes Current occupational status: retired Cognitive needs: Yes (cane) Hearing needs: No Vision needs: Yes (Pt wear glasses. ) Review of Systems Const All systems reviewed & are unremarkable except as noted in HPI and below Reports fatigue ENT Denies dizziness Card Denies chest pain, Denies chest pain at rest, Denies chest pain with activity, Denies rapid heart rate, Denies pedal edema, Denies edema, Denies leg edema, Denies lightheadedness, Denies palpitations, Denies dyspnea, Denies dyspnea on exertion and Denies orthopnea Resp Denies cough, Denies dyspnea and Denies dyspnea on exertion GI Denies hematochezia and Denies change in stool character Musc Details: feet wounds - uses wheelchair Reports abnormal gait, Denies limited range of motion, Denies muscle cramps, Denies muscle weakness, Denies numbness, Denies radiating pain into limb, Denies stiffness and Denies tingling Neuro Reports abnormal gait, Denies dizziness, Denies numbness and Denies tingling Endo Reports fatigue and Denies palpitations Physical Exam Vital Signs: Last Vital Signs Pulse 88 01/29/25 09:57 BP 100/62 01/29/25 09:57 BMI result Body Mass Index 31.6 Const General: cooperative, healthy appearing, comfortable and no acute distress Orientation/consciousness: patient oriented x3 Neck Neck: Yes normal visual inspection and Yes no JVD Resp Effort & Inspection: normal respiratory effort Auscultation: clear to auscultation bilaterally, no crackles, no rales, no rhonchi and no wheezes Cardio Jugular venous distension: no JVD Rate: regular rate Rhythm: regular rhythm Heart sounds: S1 normal heart sound present, S2 normal heart sound present, no murmurs and no rubs Neuro General: patient oriented x3 Extrem Other: dressing to left lower extremity. In wheelchair. General: No calf tenderness Psych Appearance: grossly normal Mental Status: mental status grossly normal Speech and movement: Normal speech and movement present Office Procedures EKG Details: Today, read by me sinus rhythm with sinus arrythmia, rate 88, Qtc 445ms [id number], Complete Assessment & Plan Assessment & Plan (1) Fatigue: Code(s): R53.83 - Other fatigue Category: Medical Plan: Recent reports of fatigue without other associated symptoms. Recent labs reviewed showing no significant abnormalities. Hematocrit 41, TSH 1.67. Recent cardiac testing reviewed. No need for further testing at this time. If he does report any chest discomfort then a nuclear stress test can be done. (2) HTN (hypertension): Code(s): I10 - Essential (primary) hypertension Category: Medical Plan: Blood pressure goal less than 130/80. Currently controlled with med management. Continue metoprolol XL 50 mg daily. Continue amlodipine 2.5 mg daily. Reviewed low-salt diet. (3) Acute pulmonary embolism with acute cor pulmonale: Code(s): I26.09 - Other pulmonary embolism with acute cor pulmonale Category: Medical Plan: History of an acute pulmonary embolism with cor pulmonale, cardiac arrest 01/2022. He cardiology consult at that time however did not followed up in our office until October 2023. He tells me he has had no recurrent issues with blood clots. Echocardiogram done 10/16/2024 shows EF 55%, possible basal inferior lateral hypokinesis, RV size and function normal, ascending aorta 3.8 cm. No signs of heart failure on exam. (4) Cardiac arrest: Code(s): I46.9 - Cardiac arrest, cause unspecified Category: Medical Plan: At time of acute PE. Recent echo shows normal EF and normal RV. It does state possible basal inferior lateral hypokinesis. He has no reports of chest discomfort at rest or with activity. No indication for cardiac stress test at this time. Signs and symptoms of angina reviewed with him. (5) SVT (supraventricular tachycardia): Code(s): I47.10 - Supraventricular tachycardia, unspecified Category: Medical Plan: Following PE while still hospitalized he was having runs of wide complex tachycardia which was evaluated by Dr. Carr and felt to be SVT with aberrancy. He was put on metoprolol and remains on it for heart rate and blood pressure control. No reports of heart palpitations. Holter monitor done on 02/10/2024 for 3 days showed sinus rhythm with heart rates average 71, rare SVE, rare ve with 2 brief runs, 4 beats, no pauses or heart block. Will continue on metoprolol. (6) Ascending aorta dilatation: Comment: October 2023 4.1 Code(s): I77.810 - Thoracic aortic ectasia Category: Medical Plan: Prior echo shows dilated ascending aorta 4.1 cm. More recent echo shows ascending aorta 3.8 cm. Plan I discussed with the patient the potential causes of his fatigue, including low oxygen levels and the effects of the topical cream. We agreed to continue using nighttime oxygen and consider reintroducing the cream to assess its impact on fatigue. I explained the possibility of conducting a stress test if symptoms worsen or chest discomfort occurs, and emphasized the importance of hydration, especially in hot weather. Patient Instructions: - Use nighttime oxygen and discuss daytime use with PCP. - Monitor for increased fatigue or shortness of breath/ chest discomfort. - Maintain hydration, especially in hot weather. - Attend regular wound care center visits. Patient was informed and verbally consented to the use of an ambient scribe for clinic note documentation during this visit. Visit time spent on chart review, interview, assessment, orders, documentation. Coding Level of Care Code Est Pt Level 4 (28381) Complex EM visit Add On G2211 Diagnoses Fatigue R53.83 HTN (hypertension) I10 Acute pulmonary embolism with acute cor pulmonale I26.09 Cardiac arrest I46.9 SVT (supraventricular tachycardia) I47.10 Ascending aorta dilatation I77.810 CPT Codes EKG - CPT: 70906-[id number], Complete ([id number]) Time Spent (min) 28
[2025-01-29 09:57] VITALS: BP 100/62; PULSE 88; BMI 31.6
--- OUTSIDE RECORDS SUMMARY | 2025-01-29 10:33 | XMS_ITS | Patient Health Record ---
Author Organization [facility] Address [address] [place] [phone] Care Team Providers Care Coping Machine Operator Name Role Phone Lalitha MORALES, William Primary Care Provider Kong Nava Unavailable [phone] Arnav Limon Unavailable Unavailable Allergies No Known Allergies Reason For Referral No Information Medications Medication SIG (Take, Route, Frequency, Duration) Notes Start Date End Date Status Enbrel SureClick 50 MG/ML Subcutaneous Active Problems Problem Type SNOMED Code ICD Code Onset Dates Problem Status W/U Status Risk Notes Problem Skin ulcer of calf (053713283) Ulcer (skin exp) LEFT CALF (L97.221) Active confirmed Problem Varicose veins of lower extremity (33739614) Vikash Insuf (other compl) LEFT (I83.892) Active confirmed Problem Vikash Insuf (ulcer) LEFT CALF (I83.022) Active confirmed Plan Of Treatment No Information Insurance Providers Payer Name Payer Address Payer Phone Subscriber Number Group Number Insured Name Patient Relationship to Insured Coverage Start Date Coverage End Date [employer] Blue [address] [place] [address] [id number] Sarath Gipson Self - patient is the insured [employer] PPO,EPO & Medigap [address] [place] [address] [id number] Farideh Gipson Spouse - patient is the spouse of the insured [employer] [address] [place] [address] [id number] Sarath Gipson Self - patient is the insured 8
--- OUTSIDE RECORDS SUMMARY | 2025-01-29 10:33 | XMS_ITS | Clinical Summary ---
Author Organization [facility] Address [address] [place] [id number] Care Team Providers Care Bottom Worker Name Role Phone Kia Stroud MD Primary Care Provider [phone] Social History Tobacco Use Types Packs/Day Years [...] Insurance [employer] Medicare Aena Medicare Care Teams Bottom Worker Relationship Specialty Start Date End Date Kia Stroud MD [facility] [address] [place], [place] PCP - General Internal Medicine 12/04/21
--- OUTSIDE RECORDS SUMMARY | 2025-01-29 10:33 | XMS_ITS | Clinical Summary ---
Author Organization [facility] Address [address] [place] [id number] Phone Care Team Providers Care Paper Stripper Name Role Phone Kia Stroud MD Primary Care Provider [phone] Allergies No known active allergies Medications umeclidinium-vi lanteroL (ANORO ELLIPTA) 62.5-25 mcg/actuation diskus inhaler Inhale 1 puff into the lungs daily. Active HYDROmorphone (DILAUDID) 2 MG tablet Take 2 mg by mouth 2 (two) times a day as needed for pain (specific location in comments). 02/27/20 Active metoprolol tartrate (LOPRESSOR) 25 MG tablet Take 32.5 mg by mouth 2 (two) times a day. increase to 1.5 tabs hold is systolic BP <90 or HR <60 one tab bid 02/27/20 22 Active gabapentin (NEURONTIN) 300 MG capsule Take 600 mg by mouth 3 (three) times a day. 1in am 1 at 3pm 2 tabs at bedtime per pain management . 03/23/20 Active acetaminophen (TYLENOL) 500 MG tablet Take 1,000 mg by mouth every 8 (eight) hours as needed for pain (specific location in comments). 03/23/20 Active upadacitinib (RINVOQ) 15 mg tablet Take 15 mg by mouth daily. 04/10/20 Active DULoxetine (CYMBALTA) 20 MG capsuleIndicati ons:Ulcer of lower extremity, limited to breakdown of skin, unspecified laterality,Rheu matoid arthritis of multiple sites with negative rheumatoid factor,Neuropat hy [The details of the medication are not available because there are pending changes by a home health clinician.] 30 capsule 1 06/09/20 22 Active Additional Information Patient not taking.Reason: Not effective (pain management cleared pt to no longer take), Informant: Spouse/Significant Other, Reported on 02/11/2023 rivaroxaban (XARELTO) 20 mg Tab Take 10 mg by mouth daily. pt reports dose decreased from 20mg to 10mg due to being on Upadacitinib 10/08/19 23 Active fluticasone propionate (FLONASE) 50 mcg/actuation nasal spray 1 spray by Nasal route daily. 50 mcg total by each Nare route 022 Discontinu ed(No longer taking) tocilizumab (ACTEMRA IV) 598 mg every 30 (thirty) days. 06/24/20 21 022 Discontinu ed(No longer taking) gabapentin (NEURONTIN) 100 MG capsule Take 300 mg by mouth nightly at bedtime. 03/23/20 22 Discontinu ed(Error) warfarin (COUMADIN) 1 MG tablet Take 4 mg by mouth daily. 09/21- inr 1.5. Take 6mg mon/tues 4mg wed/th. 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 Previous treatment includes MTX, Enbrel and Renflexis ( Inflixamab bio similar) and most recently Actemra. His treatment has been complicated by non healing LE wounds for which he was initially treated for venous stasis ulcers with minimal improvement. Beginning in 01/2020 he had treatment for PG with steroids and Inflixamab with resolution of ulcers. His RA became more active and Infliximab was changed to Actemra in 06/2021 with improved joint symptoms. Unfortunately , the leg ulcers have been recurrent since 07/2020 off Inflixamab. He is being followed by [place] [facility] and receiving a prednisone taper, current dose 40 mg/day. -Will plan to continue Actemra IV which he feels has been helpful for RA symptoms , however he is also on steroid taper which is probably controlling symptoms -Will need derm involved for LE ulcers, most likely PG-will refer to derm if needed -Unclear if he has concurrent neuropathy in LE but has significant pain. He has tried and failed Gabapentin, Lyrica, and Tramadol. 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 Previous treatment includes MTX, Enbrel and Renflexis ( Inflixamab bio similar) and most recently Actemra. His treatment has been complicated by non healing LE wounds for which he was initially treated for venous stasis ulcers with minimal improvement. Beginning in 01/2020 he had treatment for PG with steroids and Inflixamab with resolution of ulcers. His RA became more active and Infliximab was changed to Actemra in 06/2021 with improved joint symptoms. Unfortunately , the leg ulcers have been recurrent since 07/2020 off Inflixamab. He is being followed by [place] [facility] and receiving a prednisone taper, current dose 10 mg/day. Recent admission for cellulitis /wound infection of LE requiring Surgery,c/b DVT, PE,cardiac arrest now on coumadin. Followed by [facility] for significant skin ulceration -Will need to hold any biologic treatment until wounds healed. RA does not appear active currently on pred 10 mg -Will need derm involved for LE ulcers, ? 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 Previous treatment includes MTX, Enbrel and Renflexis ( Inflixamab bio similar) and most recently Actemra. His treatment has been complicated by non healing LE wounds for which he was initially treated for venous stasis ulcers with minimal improvement. Beginning in 01/2020 he had treatment for PG with steroids and Inflixamab with resolution of ulcers. His RA became more active and Infliximab was changed to Actemra in 06/2021 with improved joint symptoms. Unfortunately , the leg ulcers have been recurrent since 07/2020 off Inflixamab. He is being followed by [facility] [place] and receiving a prednisone taper, current dose 40 mg/day. -Will plan to continue Actemra IV which he feels has been helpful for RA symptoms , however he is also on steroid taper which is probably controlling symptoms -Will need derm involved for LE ulcers, most likely PG-will refer to derm if needed -Unclear if he has concurrent neuropathy in LE but has significant pain. He has tried and failed Gabapentin, Lyrica, and Tramadol. Will consider a trial of Cymbalta -labs today F/u in 3 weeks prior to infusion Lower extremity ulceration, unspecified laterality, limited to breakdown of skin 09/30/2021 Overview (12/15/2021): Long hx of bilateral LE wounds Treated in past for venous stasis with minimal improvement Most recent pathology ? Venous stasis vs PG Resolution of ulcerations on Inflixamab supports the diagnosis of PG Off Inflixamab since 07/01 with recurrent ulcerations, now on prednisone taper , followed by [facility] Would recommend dermatology involvement Consider [facility] derm/rheum clinic Assessment & Plan (12/15/2021 12:00 AM EDT): Long hx of bilateral LE wounds Treated in past for venous stasis with minimal improvement Most recent pathology ? Venous stasis vs PG Resolution of ulcerations on Inflixamab supports the diagnosis of PG Off Inflixamab since 07/01 with recurrent ulcerations, now on prednisone taper , followed by [facility] Would recommend dermatology involvement Consider [facility] derm/rheum clinic Venous insufficiency 09/30/2021 Smoking history 09/30/2021 Immunizations Immunization Administration Dates Next Due COVID-19 (Pre-05/03) Moderna Vaccine, mRNA, PF 1 08/10/2020,09/04/2020 Influenza High-Dose Quadrivalent Preservative Fr ee IM 04/17/2021,03/29/2020 Influenza High-Dose Trivalent Preservative Free IM 05/05/2018 Influenza, Unspecified Formulation 05/05/2020 Pneumococcal conjugate PCV13 07/12/2017 Pneumococcal polysaccharide PPSV23 08/12/2015 Social History Tobacco Use Types Packs/Day Years Used Date Smoking Tobacco: Former Smokeless Tobacco: Never Home Health Assessment: Transportation Answer Date Recorded Lack of Transportation (Medical) No 03/12/2023 Lack of Transportation (Non-Medical) No 03/12/2023 Patient Unable or Declines to Respond No 03/12/2023 Education Answer Date Recorded Are you interested in more education? Not on viktoria e 2022 Are you concerned about learning? Not on file 2022 No 2022 No 2022 Digital Access Answer Date Recorded No 12/01/2022 No 12/01/2022 Reliable internet access at home? Not on file 12/01/2022 Device with a working camera? Not on file Sex and Gender Information Value Date Recorded Sex Assigned at Not on file Legal Sex Male 1:30 PM EST Gender Identity Not on file Sexual Orientation Not on file Last Filed Vital Signs Vital Sign Reading Time Taken Comments Blood Pressure 128/76 02/23/2023 11:52 AM EDT Pulse 70 02/23/2023 11:52 AM EDT Temperature 36.4 C (97.6 F) 02/23/2023 11:52 AM EDT Respiratory Rate 18 02/23/2023 11:52 AM EDT Oxygen Saturation 93% 02/23/2023 11:52 AM EDT Inhaled Oxygen Concentration - - Weight 80.3 kg (177 lb) 08/25/2022 3:39 PM EST Height 167.6 cm (5' 5.98 ) 03/03/2022 11:11 AM E DT Body Mass Index 28.58 03/03/2022 11:11 AM EDT Plan of Treatment Health Maintenance Due Date Last Done Comments Adult Td,Tdap Booster 1945 LIPID PANEL 1945 DEPRESSION SCREENING 1957 SMOKING Hx and SMOKELESS TOBACCO SCREENING 1958 HEPATITIS C SCREENING 11/06/1963 ZOSTER VACCINES (1 of 2) 1964 RSV VACCINE (1 - 1-dose 75+ series) 2020 COVID-19 VACCINE (3 - Moderna risk series) 07/08/2021 06/10/2021, 09/04/2020 CREATININE LEVEL 02/13/2023 02/13/2022, , 01/28/2022, Additional history exists PNEUMOCOCCAL VACCINES (50+ years) Completed 07/12/2017, 08/12/2015 HEPATITIS A VACCINES Aged Out No long er eligible based on patient's age to complete this topic HIB VACCINES Aged Out No longer eligi ble based on patient's age to complete this topic MENINGOCOCCAL VACCINES (ACWY) Aged Out No longer eligible based on patient's age to complete this topic MENINGOCOCCAL VACCINES (B) Aged Out N o longer eligible based on patient's age to complete this topic Medical Devices Not on file Procedures Procedure Name Priority Date/Time Associated Diagnosis Comments COMPREHENSIVE METABOLIC PANEL Routine 02/13/2022 10:30 AM EDT Cardiac arrest from Last 3 Months or Most Recently Relevant to Health Maintenance Results * (ABNORMAL) Comprehensive metabolic panel (02/13/2022 10:30 AM EDT) SODIUM 143 133 - 146 mmol/L [facility] POTASSIUM 4.7 3.3 - 5.1 mmol/L [facility] CHLORIDE 105 96 - 108 mmol/L [facility] CO2 27 21 - 35 mmol/L [facility] BUN 43(H) 6 - 19 mg/dL [facility] CREATININE 0.80 0.5 - 1.5 mg/dL [facility] GLUCOSE 90 70 - 99 mg/dL [facility] ALBUMIN 3.5(L) 3.9 - 4.8 g/dL [facility] TOTAL PROTEIN 6.2(L) 6.5 - 8.0 g/dL [facility] CALCIUM 9.5 8.4 - 10.3 mg/dL [facility] ALKALINE PHOSPHATASE 72 39 - 117 U/L [facility] TOTAL BILIRUBIN <0.2 0.0 - 1.2 mg/dL [facility] AST 18 0 - 37 U/L [facility] ALT 34 0 - 40 U/L [facility] GLOBULIN 2.7 1 - 4.8 g/dL [facility] EGFR 92 >59 mL/min/1.7 3m2 [facility] Comment:Estimated glomerular filtration rate calculated using the CKD-EPI refit equation. ANION GAP 16 10 - 20 mmol/L [facility] Blood 02/13/2022 10:3 0 AM EDT 02/13/2022 11:28 PM EDT us Alesia Cornejo MD LAB BLOOD ORDERABLES Final Res ult [facility] [address] [place] [address] from Last 3 Months or Most Recently Relevant to Health Maintenance Insurance [employer] O MEDICARE REPLACEMENT AETNA PPO MEDICARE REPLACEMENT AETNA O MEDICARE REPLACEMENT AETNA O MEDICARE REPLACEMENT AETNA O MEDICARE REPLACEMENT AETNA O MEDICARE REPLACEMENT AETNA O MEDICARE REPLACEMENT AETNA O MEDICARE REPLACEMENT AETNA PPO MEDICARE REPLACEMENT Care Teams Paper Stripper Relationship Specialty Start Date End Date Kia Stroud MD [address] [place] [address] PCP - General Internal Medicine 02/25/22 Additional Source Comments The information contained in this document represents components of the legal health record. It is not the complete legal health record.[facility]
--- OUTSIDE RECORDS SUMMARY | 2025-01-29 10:33 | XMS_ITS ---
Author Organization Unknown ENCOUNTERS Encounter Performer Location Date Diagnosis Diagnosis Status Inpatient [facility] [address] [place] [address] [id number] [facility] Emergency [facility] [address] [place] [address] [id number] AIP Pre Admit [facility] [address] [place] [id number] Outpatient [address] [address] [id number] [facility] Outpatient [address] [address] [id number] Post Acute Care Alesia Flores at [address] [phone] [id number] Private home/apt. with home health services Inpatient [facility] [address] [place] [address] [id number] [facility] [address] [address] [id number] AIP *Note: Encounters from your own facility or health system may be excluded. Allergies, Adverse Reactions, Alerts Allergen Type Severity Identification Date heparin (porcine) drug allergy [id number] heparin drug allergy [id number] Medications Name Date Quantity Days Supplied GPI Number
== END 2025-01-29 10:46 | disposition home or self-care (01) ==
LOC: HO.HCS 09:50
PROVIDERS: PCP Internal Medicine; Visit Provider Nurse Practitioner Family
DX: R53.83 Other fatigue (principal); I10 Essential (primary) hypertension; I26.09 Other pulmonary embolism with acute cor pulmonale; I46.9 Cardiac arrest, cause unspecified; I47.10 Supraventricular tachycardia, unspecified; I77.810 Thoracic aortic ectasia
CPT/HCPCS: 93010; 99214; G2211

== ENCOUNTER → 2025-01-29 09:50 | Outpatient (BNVA) | payer MEDICARE, SELFPAY | PROVIDERS: PCP Internal Medicine; Visit Provider Nurse Practitioner Family | DX: I10 Essential (primary) hypertension (principal); I77.810 Thoracic aortic ectasia; I47.10 Supraventricular tachycardia, unspecified; I26.09 Other pulmonary embolism with acute cor pulmonale; I46.9 Cardiac arrest, cause unspecified | CPT/HCPCS: 93005; 99212 ==

== ENCOUNTER 2025-02-02 10:58 | Outpatient (AMB) | payer MEDICARE, SELFPAY ==
--- NOTE | 2025-02-02 11:00 | MHC.OFFVIS ---
Vital Signs 02/02/25 11:09 Height 5 ft 6 in BP 123/86 Blood Pressure Location Lt brachial Pulse 85 Pulse Source Pulse Oximeter Pulse Oximetry (%) 90 L Oxygen Delivery Method Room Air Intake Visit Reasons: Pill count Intake Note: Sarath comes in today for a pill count to hydromorphone, patient should have 0 tablets and presents with 37 tablets which he last took about 3 weeks ago. Tongue Stitcher Required: No Accompanied by: Spouse Allergies heparin (porcine) Allergy (Severe, Verified 02/02/25 11:10) HIT HPI Comments Details: Patient presents today for a pill count. Patient is supposed to have #0 pills, in his possession has #37 pills. His chronic left non-healing wound requires regular dressing changes, and the patient has been using hydromorphone very sparingly, primarily when attending the wound care center. Patient reports new small open wound on his right lateral lower leg and minimal changes with left lower leg non-healing wound. The patient reports he paused tacrolimus cream as prescribed by a Meeting Manager in [place] due to fatigue, and recently restarted after ruling out his fatigue with his Cardiology and PCP providers. He is also on daily regimen of 5 mg prednisone. Denies any fever, chills, weight loss, bleeding, weakness, dizziness, shortness of breaths, constipation, nausea, sedation, urinary retention or abdominal pain. He continues nighttime oxygen use. 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 Acute pulmonary embolism with acute cor pulmonale Acute pulmonary embolism Cardiac arrest CKD (chronic kidney disease) stage 3, GFR 30-59 ml/min Sjogren's disease Leg pain, bilateral Elevated serum creatinine COPD (chronic obstructive pulmonary disease) HTN (hypertension) Rheumatoid arthritis Chronic ulcer of leg Surgical History History of ankle surgery History of hernia repair History of left knee replacement Family History Sister Breast cancer Father Aneurysm Mother Angina at rest Other No family history of coronary artery disease Social History (Reviewed 02/02/25 @ 11:48 by JAYDA Pierce Household Members: Spouse Housing: House Do you presently have visiting nurse or other home services: No Alcohol intake: current Alcohol intake frequency: holidays/special occasions only Comment: restraints Patient Tobacco Use Status: Former Tobacco user Tobacco use type: Cigarette Cigarette Packs Per Day: 1 Years Smoked: quit + years e-Cigarette/Vaping Use: Never Used Second Hand Smoke Exposure: No Advance Directives Date on File: 12/23/21 service: Yes Current occupational status: retired Cognitive needs: Yes (cane) Hearing needs: No Vision needs: Yes (Pt wear glasses. ) Review of Systems Const All systems reviewed & are unremarkable except as noted in HPI and below Physical Exam General: Appears afebrile. No acute distress. Alert and oriented. Mood and affect appropriate. Follows and participates in conversation appropriately. Respiratory effort is unlabored. No cough. Sitting comfortably in the wheelchair. Left lower leg and right lateral lower leg with dressings, dry and intact. Resp Effort & Inspection: normal respiratory effort, able to speak in complete sentences, no cough, no respiratory distress and No symmetric chest movement GI Inspection: Yes normal to inspection Palpation (GI): Soft to palpation, nontender and no guarding Psych Appearance: grossly normal Mental Status: mental status grossly normal Speech and movement: Normal speech and movement present and Clear speech present Affect: normal affect Attitude: cooperative Thought process: Normal thought process present Thought content: Normal thought content present, suicidality (none), no hallucinations and No Depressive thoughts present Insight: Good insight present (Psych) Judgement: Good judgement present (Psych) Results Reviewed Results Reviewed: Assessment & Plan Assessment & Plan (1) Chronic pain of left lower extremity: Code(s): M79.605 - Pain in left leg; G89.29 - Other chronic pain Category: Medical (2) Peripheral neuropathy: Code(s): G62.9 - Polyneuropathy, unspecified Category: Medical (3) Non-healing wound of left lower extremity: Code(s): S81.802A - Unspecified open wound, left lower leg, initial encounter Category: Medical (4) Pyoderma gangrenosum: Comment: This is a 78-year-old male originally from [place], recently moved to [place] with past medical history of seronegative RA/Sjogren's (dry mouth +++Ro) diagnosed in the treated with Enbrel for at least 15 years years. Patient had right lower extremity wounds which were treated with Renflexis & prednisone with good results however he was having recurrent knee swelling. He was switched to Kevzara early 2021 with some improvement. Patient developed left lower extremity pyoderma gangrenosum. This started around June 2021. 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 He is currently on warfarin now switched to rivaroxaban by lumber sorter machine. This was discontinued months ago. Patient was started on Rinvoq by his tandem operator Dr. Omar Cantor in [place], with little improvement, then dose was increased from 15 mg daily to 30 mg daily for a few months without significant improvement. A steroid tapering course was prescribed 10 months ago which provided temporary improvement. Patient took 3 doses of Renflexis and it was discontinued due to a reaction with joint pain. He was then started on Humira, he took Humira 40 mg every other week then advanced to 40 mg weekly without improvement. He then failed CellCept. CellCept was discontinued. 04/2024 patient was admitted with COPD exacerbation and received IV steroids with improvement of his pyoderma gangrenosum wounds, he was advised by his tandem operator to continue with steroids, his steroids are being tapered, per once the dose was lowered to 10 mg a day he stopped getting any improvement. 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 My belief is Renflexis and prednisone was working well for rheumatoid arthritis and pyoderma gangrenosum, when patient was switched to Kevzara the pyoderma gangrenosum recurred Code(s): L88 - Pyoderma gangrenosum Category: Medical (5) Chronic, continuous use of opioids: Code(s): F11.90 - Opioid use, unspecified, uncomplicated Category: Medical Plan Patient has shown accountability for his medication regimen and the pill count was accurate. There is no evidence of misuse, abuse or diversion at this time. [employer] reviewed. Recent UDS was concordant. Will hold off script for hydromorphine 2 mg BID prn due to surplus in pill count today, he takes it for wound care/dressing changes only. Continue duloxetine, gabapentin and Tylenol as needed. We discussed potential opioid program exit given minimal opioid use, will discuss at next visit with his PCP for potential prn prescribing as patient remains stable with regular accountability on his current regime. [facility]. All questions were answered and the patient is in agreement with the plan. Follow up in 8 weeks for a pill count or sooner if needed. Patient was informed and verbally consented to the use of an ambient scribe for clinic note documentation during this visit. Coding Level of Care Code Est Pt Level 3 (76140) Complex EM visit Add On G2211 Diagnoses Chronic pain of left lower extremity M79.605; G89.29 Peripheral neuropathy G62.9 Non-healing wound of left lower extremity S81.802A Pyoderma gangrenosum L88 Chronic, continuous use of opioids F11.90
--- OUTSIDE RECORDS SUMMARY | 2025-02-02 11:08 | XMS_ITS | Clinical Summary ---
Author Organization [facility] Facility Address [address] [place] [address] Care Team Providers Care Graduate Teaching Assistant Name Role Phone Kia Stroud MD Primary Care Provider [phone] Social History Tobacco Use Types Packs/Day Years [...] Insurance [employer] Medicare Aena Medicare Care Teams Graduate Teaching Assistant Relationship Specialty Start Date End Date Kia Stroud MD [facility] [address] [place], [place] PCP - General Internal Medicine 12/04/21
--- OUTSIDE RECORDS SUMMARY | 2025-02-02 11:08 | XMS_ITS | Clinical Summary ---
Author Organization Formerly [facility] Address [address] [place] [phone] Phone Care Team Providers Care Satellite Television Installer Name Role Phone Kia Stroud MD Primary Care Provider [phone] Allergies No known active allergies Medications umeclidinium-vi [...] Noted Date Diagnosed Date Rheumatoid arthritis of [facility] with negative rheumatoid factor 12/14/2021 Overview [...] off Inflixamab. He is being followed by [facility] and receiving a prednisone [...] off Inflixamab. He is being followed by [facility] and receiving a prednisone taper, current dose 10 mg/day. Recent admission for cellulitis /wound infection of LE requiring Surgery,c/b DVT, PE,cardiac arrest now on coumadin. Followed by [facility] for significant skin ulceration -Will need to hold any biologic treatment until wounds healed. RA does not appear active currently on pred 10 mg -Will need derm involved for LE ulcers, ? PG- appointment scheduled with accountant tax in [place] in near future -Unclear if he has [...] off Inflixamab. He is being followed by [facility] and receiving a prednisone taper, current dose [...] on prednisone taper , followed [facility] Would recommend dermatology involvement [place] [facility] [place] Assessment & Plan (12/15/2021 12:00 AM EDT): Long hx of bilateral LE wounds Treated in past for venous stasis with minimal improvement Most recent pathology ? Venous stasis vs PG Resolution of ulcerations on Inflixamab supports the diagnosis of PG Off Inflixamab since 07/01 with recurrent ulcerations, now on prednisone taper , followed by [facility] Would recommend dermatology involvement Consider [facility] [place] [place] Venous insufficiency 09/30/2021 Smoking history [...] EDT) SODIUM 143 133 - 146 mmol/L [facility] POTASSIUM 4.7 3.3 - 5.1 mmol/L [facility] CHLORIDE 105 96 - 108 mmol/L [facility] CO2 27 21 - 35 mmol/L [facility] BUN 43(H) 6 - 19 mg/dL [facility] CREATININE 0.80 0.5 - 1.5 mg/dL [facility] GLUCOSE 90 70 - 99 mg/dL [facility] ALBUMIN 3.5(L) 3.9 - 4.8 g/dL [facility] TOTAL PROTEIN 6.2(L) 6.5 - 8.0 g/dL [facility] CALCIUM 9.5 8.4 - 10.3 mg/dL [facility] ALKALINE PHOSPHATASE 72 39 - 117 U/L [facility] TOTAL BILIRUBIN <0.2 0.0 - 1.2 mg/dL [facility] AST 18 0 - 37 U/L [facility] ALT 34 0 - 40 U/L [facility] GLOBULIN 2.7 1 - 4.8 g/dL [facility] EGFR 92 >59 mL/min/1.7 3m2 [facility] Comment:Estimated glomerular filtration rate calculated using the CKD-EPI refit equation. ANION GAP 16 10 - 20 mmol/L [facility] Blood 02/13/2022 10:3 0 AM EDT 02/13/2022 11:28 PM EDT us Alesia Cornejo MD LAB BLOOD ORDERABLES Final Res ult [facility] [address] [place] [address] from Last 3 Months or Most Recently Relevant to Health Maintenance Insurance [employer] O MEDICARE REPLACEMENT AETNA PPO MEDICARE REPLACEMENT AET[employer] O MEDICARE REPLACEMENT AETNA O MEDICARE REPLACEMENT AETNA O MEDICARE REPLACEMENT AETNA O MEDICARE REPLACEMENT AETNA O MEDICARE REPLACEMENT AETNA O MEDICARE REPLACEMENT AETNA PPO MEDICARE REPLACEMENT Care Teams Satellite Television Installer Relationship Specialty Start Date End Date Kia Stroud MD [address] [place] [address] PCP - General Internal Medicine 02/25/22 Additional Source Comments The information contained in this document represents components of the legal health record. It is not the complete legal health record.Formerly [facility]
--- OUTSIDE RECORDS SUMMARY | 2025-02-02 11:08 | XMS_ITS | Patient Health Record ---
Author Organization [facility] Address [address] [place] [id number] Care Team Providers Care Technician Name Role Phone Lalitha MORALES, William Primary Care Provider Kong Nava Unavailable [phone] Arnav Limon Unavailable Unavailable Allergies No Known Allergies Reason For Referral No Information Medications Medication SIG (Take, Route, Frequency, Duration) Notes Start Date End Date Status Enbrel SureClick 50 MG/ML Subcutaneous Active Problems Problem Type SNOMED Code ICD Code Onset Dates Problem Status W/U Status Risk Notes Problem Skin ulcer of calf (298833331) Ulcer (skin exp) LEFT CALF (L97.221) Active confirmed Problem Varicose veins of lower extremity (34313922) Vikash Insuf (other compl) LEFT (I83.892) Active confirmed Problem Vikash Insuf (ulcer) LEFT CALF (I83.022) Active confirmed Plan Of Treatment No Information Insurance Providers Payer Name Payer Address Payer Phone Subscriber Number Group Number Insured Name Patient Relationship to Insured Coverage Start Date Coverage End Date [employer] [address] [place] [address] [id number] Sarath Gipson Self - patient is the insured [employer] P[employer],EPO & Medigap [address] [place] [address] [id number] Farideh Gipson Spouse - patient is the spouse of the insured [employer] [address] [place] [id number] Sarath Gipson Self - patient is the insured 8
[2025-02-02 11:09] VITALS: BP 123/86; PULSE 85; O2SAT 90
== END 2025-02-02 11:42 | disposition home or self-care (01) ==
LOC: HO.PMC 10:59
PROVIDERS: PCP Internal Medicine; Visit Provider Nurse Practitioner Family
DX: G89.29 Other chronic pain (principal); G62.9 Polyneuropathy, unspecified; M79.605 Pain in left leg; Z79.891 Long term (current) use of opiate analgesic; L88 Pyoderma gangrenosum
CPT/HCPCS: 99213; G2211

== ENCOUNTER → 2025-02-02 10:58 | Outpatient (BNVA) | payer MEDICARE, SELFPAY | PROVIDERS: PCP Internal Medicine; Visit Provider Nurse Practitioner Family | DX: Z51.81 Encounter for therapeutic drug level monitoring (principal); F11.20 Opioid dependence, uncomplicated; M79.605 Pain in left leg; G62.9 Polyneuropathy, unspecified; S81.802D Unspecified open wound, left lower leg, subsequent encounter; L88 Pyoderma gangrenosum; G89.29 Other chronic pain | CPT/HCPCS: 99212 ==

== ENCOUNTER 2025-03-02 10:44 | Outpatient (AMB) | payer MEDICARE, SELFPAY ==
--- OUTSIDE RECORDS SUMMARY | 2025-03-02 05:46 | XMS_ITS | Continuity of Care Document ---
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 Phone [facility] Unavailable Unavailable Problems Combined list of problems [...] COPD - Chronic Obstructive Pulmonary Disease (SCT [id number]) Active Condition [facility] Deep venous thrombosis of upper extremity Active Condition Feb 18, 2022 Entered By: MESFNI SAHA Comment: Left [facility] Depression (SCT [id number]) Active Condition [facility] Exposure to potentially hazardous substance Active Condition Oct 07, 2023 Entered By: COL BHARATHI ADAME Comment: ILIANA Screening Snomed Code connected 01/22/23 [facility] H/O: rheumatoid arthritis Active Condition [facility] Hypertension [facility] Moderate protein-calorie malnutrition (weight for age 60-74 percent of standard) Active Condition [facility] PE - Pulmonary Embolism (SCT [id number]) Active Condition [facility] Pyoderma gangrenosum Active Condition [facility] Rheumatoid arthritis Active Condition [facility] Sjogren syndrome Active Condition [facility] Venous ulcer Active Condition [facility] Diagnosis: ICD-10-CM Z12.2 Encntr screen for malignant neoplasm of respiratory organs Active Diagnosis [facility] Diagnosis: ICD-10-CM M35.00 Sjogren syndrome, unspecified Active Diagnosis [facility] Diagnosis: ICD-10-CM H40.013 Open angle with borderline findings, low risk, bilateral Active Diagnosis [facility] Diagnosis: ICD-10-CM R52 Pain, unspecified Active Diagnosis [facility] Diagnosis: ICD-10-CM Z46.0 Encounter for fit/adjst of spectacles and contact lenses Active Diagnosis [facility] Diagnosis: ICD-10-CM I10 Essential (primary) hypertension Active Diagnosis [facility] Diagnosis: ICD-10-CM J44.9 Chronic obstructive pulmonary disease, unspecified Active Diagnosis [facility] Diagnosis: ICD-10-CM F43.10 Post-traumatic stress disorder, unspecified Active Diagnosis [facility] Medications Combined list of outpatient medications [...] MOUTH PRN ORAL ACTIVE VALENTÍN SAHA 2022 [facility] ALBUTEROL 90MCG/ACTUA T (CFC-F) INHL,ORAL,8 .5GM DOSE COUNTER INHALE 2 PUFFS BY MOUTH EVERY 6 HOURS NEEDED RESPIR ATORY (INHAL ATION) ACTIVE VALENTÍN SAHA 2022 [facility] CALCIUM CARBONATE TAB TAKE ACTIVE SERGEY MG [place] 2018 [place] CHOLECALCIF MELISSA (VIT D3) TAB TAKE EVERY DAY ACTIVE SERGEY [place] DULOXETINE HCL 20MG CAP,EC TAKE 1 CAPSULE BY MOUTH AT BEDTIME ORAL ACTIVE VALENTÍN SAHA 2022 [facility] ETANERCEPT 50MG INJ,SOLN INJECT UNDER THE SKIN SUBCUT ANEOUS ACTIVE SERGEY MG [place] 2018 [place] FAMOTIDINE TAB TAKE ACTIVE SERGEY MG [place] 2019 [place] FLUTICASONE PROPIONATE 50MCG/SPRAY SOLN,NASAL, 16GM INSTILL 2 SPRAYS INTO EACH NOSTRIL ONCE DAILY NASAL ACTIVE VALENTÍN SAHA 2022 [facility] GABAPENTIN 300MG CAP TAKE 2 CAPSULES BY MOUTH EVERY EVENING AND TAKE 4 CAPSULES BY MOUTH AT BEDTIME ORAL ACTIVE VALENTÍN SAHA 2022 [facility] HYDROCHLORO THIAZIDE TAB TAKE EVERY DAY ACTIVE SERGEY MG [place] 2019 [place] HYDROMORPHO NE HCL 2MG TAB TAKE ONE TABLET BY MOUTH THREE TIMES DAILY NEEDED ORAL ACTIVE VALENTÍN SAHA 2022 [facility] IBUPROFEN TAB TAKE PRN ACTIVE SERGEY MG [place] 2018 [place] METOPROLOL TARTRATE 25MG TAB TAKE ONE TABLET BY MOUTH TWICE DAILY ORAL ACTIVE VALENTÍN SAHA 2022 [facility] MULTIVITAMI N & MINERALS TAB TAKE EVERY DAY ACTIVE SERGEY MG [place] 2018 [place] NALOXONE HCL 4MG/SPRAY SOLN,SPRAY, NASAL INSTILL 1 SPRAY ONE NOSTRIL ONE TIME PRN NASAL ACTIVE VALENTÍN SAHA 2022 [facility] PREDNISONE (LOOK ALIKE/SOUND ALIKE) TAB TAKE BY MOUTH ORAL ACTIVE SERGEY MG [place] 2019 [place] RIVAROXABAN 10MG TAB TAKE ONE TABLET BY MOUTH ONCE DAILY ORAL ACTIVE VALENTÍN SAHA 2022 [facility] SODIUM CHLORIDE 0.9% (PF) INJ,SYRINGE ,10ML INJECT 1 SYRINGE IV PUSH ONCE DAILY INTRAV ENOUS DISCONT INUED (EDIT) 04/28/2024 [id number] DAVID LINDQUIST 2023 30 [facility] SODIUM CHLORIDE 0.9% (PF) INJ,SYRINGE ,10ML INJECT 1 SYRINGE IV PUSH DIRECTED BY PROVIDER INTRAV ENOUS DISCONT INUED (EDIT) 02/18/2024 [id number] 4 RAMBISSOO N,DAVID 2023 30 [facility] SODIUM CHLORIDE 0.9% (PF) INJ,SYRINGE ,10ML INJECT 1 SYRINGE DIRECTED BY PROVIDER ONCE DAILY NOT APPLIC ABLE 04/30/2024 [id number] 4 RAMBISSOO N,DAVID 2023 30 [facility] SODIUM CHLORIDE 0.9% (PF) INJ,SYRINGE ,10ML APPLY 1 SYRINGE TOPICALL Y DIRECTED BY PROVIDER TOPICA L 03/02/2024 [id number] 4 RAMBISSOO N,DAVID 2023 30 [facility] SODIUM CHLORIDE 0.9% SOLN,IRRG IRRIGATE QUANTITY SUFFICIE NT TOPICALL Y ONCE DAILY TOPICA L ACTIVE 03/02/2025 [id number] 5 RAMBISSOO N,DAVID 2024 1000 [facility] SODIUM CHLORIDE 0.9% SOLN,IRRG IRRIGATE UDP TOPICALL Y ONCE DAILY TOPICA L DISCONT INUED (EDIT) 08/25/2024 [id number] 5 RAMBISSOO N,DAVID 2024 1000 [facility] SODIUM CHLORIDE 0.9% SOLN,IRRG IRRIGATE QUANTITY SUFFICIE NT TOPICALL Y DIRECTED BY PROVIDER TOPICA L 01/20/2025 [id number] 5 RAMBISSOO N,DAVID 2024 1000 [facility] SODIUM CHLORIDE 0.9% SOLN,IRRG IRRIGATE DIRECTED TOPICALL Y ONCE DAILY TOPICA L 08/31/2024 [id number] 5 RAMBISSOO N,DAVID 2024 1000 [facility] UMECLIDINIU M 62.5MCG/YARELY ANTEROL 25MCG/ACTUA T INH,ORAL,30 D INHALE 1 INHALATI ON BY MOUTH ONCE DAILY RESPIR ATORY (INHAL ATION) ACTIVE VALENTÍN SAHA 2022 [facility] UPADACITINI B 15MG 24HR TAB,SA TAKE ONE TABLET BY MOUTH ONCE DAILY ORAL ACTIVE VALENTÍN SAHA 2022 [facility] Allergies, Adverse Reactions, Alerts Combined list of allergies from [facility] facilities. It does not include entries that were removed or entered in error. Substance Category Reaction Severity Reaction type Status Date Reported Comments Source HEPARIN Propensity to adverse reactions to drug (finding) Cardiac arrest SEVERE active 3 [facility] [place] Immunizations Combined list of available immunizations from the Department of [facility] and [facility] facilities. Immunization Series Date Given Administered By Site Reaction Lot Number CVX Code Drug Fourdrinier Machine Tender Status Comments Source INFLUENZA, UNSPECIFIED FORMULATION 2023 88 complet ed Booster for Series, HISTORICA L INFORMATI ON - FROM OTHER PROVIDER, [facility] PNEUMOCOCCAL CONJUGATE PCV20, POLYSACCHARID E [id number] CONJUGATE, ADJUVANT, PF 2023 ROXANNA VILLALBA LEFT DELTO ID [id number] 216 complet ed Booster for Series, [facility] TDAP 2023 ROXANNA VILLALBA LEFT DELTO ID [id number] 115 complet ed Booster for Series, ADMINISTE [facility] AT [facility] INFLUENZA, UNSPECIFIED FORMULATION 2022 88 complet ed Booster for Series, HISTORICA L INFORMATI ON - FROM OTHER PROVIDER, [facility] COVID-19 (MODERNA), MRNA, LNP-S, BIVALENT, PF, 50 MCG/0.5 ML OR 25MCG/0.25 ML DOSE 1 2021 229 complet ed HISTORICA L INFORMATI ON - FROM OTHER PROVIDER, [facility] INFLUENZA VACCINE, QUADRIVALENT, ADJUVANTED 2021 205 complet ed [facility] COVID-19 (MODERNA), MRNA, LNP-S, PF, 100 MCG/0.5ML DOSE OR 50 MCG/0.25ML DOSE 3 2020 207 complet ed [facility] [facility] INFLUENZA, UNSPECIFIED FORMULATION 2020 88 complet ed [facility] COVID-19 (MODERNA), MRNA, LNP-S, PF, 100 MCG/0.5 ML DOSE 2 2020 207 complet ed MOD; [id number]; 1 [place] COVID-19 (MODERNA), MRNA, LNP-S, PF, 100 MCG/0.5 ML DOSE 1 2020 207 complet ed MOD; [id number]; 1 [place] INFLUENZA, TRIVALENT, ADJUVANTED 2018 NONE 168 complet ed [place] PNEUMOCOCCAL CONJUGATE PCV [address] [facility] PNEUMOCOCCAL POLYSACCHARID E [id number] [address] [facility] Results Combined list of recent chemistry, hematology [...] Oct 15, 2023 11:05 AM Reporting Lab: [facility] [address] [address] Performing Lab: [facility] [address] [address] [facility] BASIC METABOLI C PANEL (fasting ) GLUCOSE [MASS/VOLU ME] IN SERUM OR PLASMA 95 mg/dL 65 - 100 10/14 Specimen Type: SERUM No comment entered. Ordering Provider: Madelaine SAHA Report Released Date/Time: Oct 15, 2023 11:05 AM Reporting Lab: [facility] [facility] [address] [address] Performing Lab: [facility] [facility] [address] [address] [facility] [facility] BASIC METABOLI C PANEL (fasting ) SODIUM [MOLES/VOL UME] IN SERUM OR PLASMA 141 mmol/L 135 - 145 10/14 Specimen Type: SERUM No comment entered. Ordering Provider: Madelaine SAHA Report Released Date/Time: Oct 15, 2023 11:05 AM Reporting Lab: [facility] [facility] [address] [address] Performing Lab: [facility] [place] [facility] [address] [address] [facility] [place] [facility] BASIC METABOLI C PANEL (fasting ) POTASSIUM [MOLES/VOL UME] IN SERUM OR PLASMA 4.2 mmol/L 3.5 - 5.0 10/14 Specimen Type: SERUM No comment entered. Ordering Provider: Madelaine SAHA Report Released Date/Time: Oct 15, 2023 11:05 AM Reporting Lab: [facility] [place] [facility] [address] [address] Performing Lab: [facility] [facility] [address] [address] [facility] BASIC METABOLI C PANEL (fasting ) CHLORIDE [MOLES/VOL UME] IN SERUM OR PLASMA 106 mmol/L 100 - 110 10/14 Specimen Type: SERUM No comment entered. Ordering Provider: Madelaine SAHA Report Released Date/Time: Oct 15, 2023 11:05 AM Reporting Lab: [facility] [facility] [address] [address] Performing Lab: [facility] [facility] [address] [address] [facility] [facility] BASIC METABOLI C PANEL (fasting ) CARBON DIOXIDE, TOTAL [MOLES/VOL UME] IN SERUM OR PLASMA 25 meq/L 20 - 30 04/05 /2024 Specimen Type: SERUM No comment entered. Ordering Provider: Madelaine SAHA Report Released Date/Time: Oct 15, 2023 11:05 AM Reporting Lab: [facility] [facility] [address] [address] Performing Lab: [facility] [place] [address] [address] [facility] [facility] BASIC METABOLI C PANEL (fasting ) CREATININE [MASS/VOLU ME] IN SERUM OR PLASMA 1.37 mg/dL 0.50 - 1.40 10/14 Specimen Type: SERUM No comment entered. Ordering Provider: Madelaine SAHA Report Released Date/Time: Oct 15, 2023 11:05 AM Reporting Lab: [facility] [place] [address] [address] Performing Lab: [facility] [place] [address] [address] [facility] BASIC METABOLI C PANEL (fasting ) GLOMERULAR FILTRATION RATE/1.73 SQ M.PREDICTE D [VOLUME RATE/AREA] IN SERUM, PLASMA OR BLOOD BY CREATININE -BASED FORMULA (CKD-EPI 2020) 53 mL/min 60 10/14 L Specimen Type: SERUM No comment entered. Ordering Provider: Madelaine SAHA Report Released Date/Time: Oct 15, 2023 11:05 AM Reporting Lab: [facility] [place] [address] [address] Performing Lab: [facility] [place] [address] [address] [facility] [facility] LIVER FUNCTION PROTEIN [MASS/VOLU ME] IN SERUM OR PLASMA 7.1 g/dL 6.0 - 8.3 10/14 Specimen Type: SERUM No comment entered. Ordering Provider: Madelaine SAHA Report Released Date/Time: Oct 15, 2023 11:05 AM Reporting Lab: [facility] [place] [address] [address] Performing Lab: [facility] [place] [facility] [address] [address] [facility] LIVER FUNCTION ALBUMIN [MASS/VOLU ME] IN SERUM OR PLASMA 3.8 g/dL 3.5 - 5.0 10/14 Specimen Type: SERUM No comment entered. Ordering Provider: Madelaine SAHA Report Released Date/Time: Oct 15, 2023 11:05 AM Reporting Lab: [facility] [place] [facility] [address] [address] Performing Lab: [facility] [place] [facility] [address] [address] [facility] [place] [facility] LIVER FUNCTION ALKALINE PHOSPHATAS E [ENZYMATIC ACTIVITY/V OLUME] IN SERUM OR PLASMA 50 U/L 40 - 150 10/14 Specimen Type: SERUM No comment entered. Ordering Provider: Madelaine SAHA Report Released Date/Time: Oct 15, 2023 11:05 AM Reporting Lab: [facility] [place] [facility] [address] [address] Performing Lab: [facility] [place] [facility] [address] [address] [facility] [place] [facility] LIVER FUNCTION ASPARTATE AMINOTRANS FERASE [ENZYMATIC ACTIVITY/V OLUME] IN SERUM OR PLASMA 15 U/L 5 - 34 10/14 Specimen Type: SERUM No comment entered. Ordering Provider: Madelaine SAHA Report Released Date/Time: Oct 15, 2023 11:05 AM Reporting Lab: [facility] [place] [facility] [address] [address] Performing Lab: [facility] [place] [facility] [address] [address] [facility] [facility] LIVER FUNCTION ALANINE AMINOTRANS FERASE [ENZYMATIC ACTIVITY/V OLUME] IN SERUM OR PLASMA 26 U/L 10/14 Specimen Type: SERUM No comment entered. Ordering Provider: Madelaine SAHA Report Released Date/Time: Oct 15, 2023 11:05 AM Reporting Lab: [facility] [address] [address] Performing Lab: [facility] [address] [address] [facility] LIVER FUNCTION BILIRUBIN. TOTAL [MASS/VOLU ME] IN SERUM OR PLASMA 0.5 mg/dL 0.2 - 1.2 10/14 Specimen Type: SERUM No comment entered. Ordering Provider: Madelaine SAHA Report Released Date/Time: Oct 15, 2023 11:05 AM Reporting Lab: [facility] [place] [facility] [address] [address] Performing Lab: [facility] [place] [facility] [address] [address] [facility] [place] [facility] LIPID PANEL FASTING CHOLESTERO L [MASS/VOLU ME] IN SERUM OR PLASMA 179 mg/dL 10/14 Specimen Type: SERUM No comment entered. Ordering Provider: Madelaine SAHA Report Released Date/Time: Oct 15, 2023 11:05 AM Reporting Lab: [facility] [place] [facility] [address] [address] Performing Lab: [facility] [place] [facility] [address] [address] [facility] [facility] LIPID PANEL FASTING TRIGLYCERI DE [MASS/VOLU ME] IN SERUM OR PLASMA 123 mg/dL 0 - 150 10/14 Specimen Type: SERUM No comment entered. Ordering Provider: Madelaine SAHA Report Released Date/Time: Oct 15, 2023 11:05 AM Reporting Lab: [facility] [place] [facility] [address] [address] Performing Lab: [facility] [place] [address] [address] [facility] [place] [facility] LIPID PANEL FASTING CHOLESTERO L IN LDL [MASS/VOLU ME] IN SERUM OR PLASMA BY DIMPLE Oglesby 111 mg/dL 0 - 129 10/14 Specimen Type: SERUM No comment entered. Ordering Provider: Madelaine SAHA Report Released Date/Time: Oct 15, 2023 11:05 AM Reporting Lab: [facility] [place] [facility] [address] [address] Performing Lab: [facility] [place] [facility] [address] [address] [facility] [facility] LIPID PANEL FASTING CHOLESTERO L.TOTAL/CH OLESTEROL IN HDL [MASS RATIO] IN SERUM OR PLASMA 4.2 10/14 Specimen Type: SERUM No comment entered. Ordering Provider: Madelaine SAHA Report Released Date/Time: Oct 15, 2023 11:05 AM Reporting Lab: [facility] [place] [facility] [address] [address] Performing Lab: [facility] [place] [facility] [address] [address] [facility] [place] [facility] LIPID PANEL FASTING CHOLESTERO L IN HDL [MASS/VOLU ME] IN SERUM OR PLASMA 43 mg/dL 40 - 60 10/14 Specimen Type: SERUM No comment entered. Ordering Provider: Madelaine SAHA Report Released Date/Time: Oct 15, 2023 11:05 AM Reporting Lab: [facility] [place] [address] [address] Performing Lab: [facility] [place] [facility] [address] [address] [facility] [place] IRON & TIBC PANEL IRON BINDING CAPACITY [MASS/VOLU ME] IN SERUM OR PLASMA 338 ug/dL 204 - 475 10/14 Specimen Type: SERUM No comment entered. Ordering Provider: Madelaine SAHA Report Released Date/Time: Oct 15, 2023 11:05 AM Reporting Lab: [facility] [place] [facility] [address] [address] Performing Lab: [facility] [place] [address] [address] [facility] [place] [facility] IRON & TIBC PANEL IRON [MASS/VOLU ME] IN SERUM OR PLASMA 51 ug/dL 40 - 160 10/14 Specimen Type: SERUM No comment entered. Ordering Provider: Madelaine SAHA Report Released Date/Time: Oct 15, 2023 11:05 AM Reporting Lab: [facility] [place] [facility] [address] [address] Performing Lab: [facility] [place] [facility] [address] [address] [facility] [place] [facility] IRON & TIBC PANEL IRON/IRON BINDING CAPACITY.T OTAL [MASS RATIO] IN SERUM OR PLASMA 15.1 20.0 - 50.0 10/14 L Specimen Type: SERUM No comment entered. Ordering Provider: Madelaine SAHA Report Released Date/Time: Oct 15, 2023 11:05 AM Reporting Lab: [facility] [place] [facility] [address] [address] Performing Lab: [facility] [place] [facility] [address] [address] [facility] [place] [facility] CBC AND DIFF (AUTO) LEUKOCYTES [#/VOLUME] IN BLOOD BY AUTOMATED COUNT 6.76 10*3/uL 4.50 - 11.00 10/14 Specimen Type: BLOOD No comment entered. Ordering Provider: Madelaine SAHA Report Released Date/Time: Oct 15, 2023 11:05 AM Reporting Lab: [facility] [place] [facility] [address] [address] Performing Lab: [facility] [place] [address] [address] [facility] [place] [facility] CBC AND DIFF (AUTO) ERYTHROCYT ES [#/VOLUME] IN BLOOD BY AUTOMATED COUNT 5.57 10*6/uL 4.23 - 5.66 10/14 Specimen Type: BLOOD No comment entered. Ordering Provider: VANWAGNER,W ILLIAM F Report Released Date/Time: Oct 15, 2023 11:05 AM Reporting Lab: [facility] [address] [address] Performing Lab: [facility] [address] [address] [facility] CBC AND DIFF (AUTO) HEMOGLOBIN [MASS/VOLU ME] IN BLOOD 14.9 g/dL 12.8 - 17 10/14 Specimen Type: BLOOD No comment entered. Ordering Provider: Madelaine SAHA Report Released Date/Time: Oct 15, 2023 11:05 AM Reporting Lab: [facility] [place] [facility] [address] [address] Performing Lab: [facility] [place] [facility] [address] [address] [facility] CBC AND DIFF (AUTO) HEMATOCRIT [VOLUME FRACTION] OF BLOOD BY AUTOMATED COUNT 47.5 39.2 - 50.4 10/14 Specimen Type: BLOOD No comment entered. Ordering Provider: Madelaine SAHA Report Released Date/Time: Oct 15, 2023 11:05 AM Reporting Lab: [facility] [address] [address] Performing Lab: [facility] [place] [facility] [address] [address] [facility] CBC AND DIFF (AUTO) MCV [ENTITIC VOLUME] BY AUTOMATED COUNT 85.3 fL 82 - 99 10/14 Specimen Type: BLOOD No comment entered. Ordering Provider: Madelaine SAHA F Report Released Date/Time: Oct 15, 2023 11:05 AM Reporting Lab: [facility] [address] [address] Performing Lab: [facility] [address] [address] [facility] CBC AND DIFF (AUTO) MCHC [MASS/VOLU ME] BY AUTOMATED COUNT 31.4 g/dL 30.8 - 35.1 10/14 Specimen Type: BLOOD No comment entered. Ordering Provider: Madelaine SAHA Report Released Date/Time: Oct 15, 2023 11:05 AM Reporting Lab: [facility] [place] [facility] [address] [address] Performing Lab: [facility] [place] [address] [address] [facility] [facility] CBC AND DIFF (AUTO) PLATELETS [#/VOLUME] IN BLOOD BY AUTOMATED COUNT 243 10*3/uL 140 - 360 10/14 Specimen Type: BLOOD No comment entered. Ordering Provider: Madelaine SAHA Report Released Date/Time: Oct 15, 2023 11:05 AM Reporting Lab: [facility] [place] [address] [phone] Performing Lab: [facility] [place] [address] [address] [facility] [place] [facility] CBC AND DIFF (AUTO) ERYTHROCYT E DISTRIBUTI ON WIDTH [RATIO] BY AUTOMATED COUNT 15.0 12.0 - 16.0 10/14 Specimen Type: BLOOD No comment entered. Ordering Provider: Madelaine SAHA Report Released Date/Time: Oct 15, 2023 11:05 AM Reporting Lab: [facility] [place] [address] [address] Performing Lab: [facility] [place] [address] [address] [facility] [place] [facility] CBC AND DIFF (AUTO) MONOCYTES [#/VOLUME] IN BLOOD BY AUTOMATED COUNT 0.49 10*3/uL 0.30 - 1.10 10/14 Specimen Type: BLOOD No comment entered. Ordering Provider: Madelaine SAHA Report Released Date/Time: Oct 15, 2023 11:05 AM Reporting Lab: [facility] [place] [address] [phone] Performing Lab: [facility] [place] [facility] [address] [address] [facility] CBC AND DIFF (AUTO) MCH [ENTITIC MASS] BY AUTOMATED COUNT 26.8 pg 26.2 - 32.6 10/14 Specimen Type: BLOOD No comment entered. Ordering Provider: Madelaine SAHA Report Released Date/Time: Oct 15, 2023 11:05 AM Reporting Lab: [facility] [place] [address] [facility] [address] Performing Lab: [facility] [place] [address] [address] [facility] CBC AND DIFF (AUTO) NEUTROPHIL S/100 LEUKOCYTES IN BLOOD BY AUTOMATED COUNT 67.8 43.7 - 75.8 10/14 Specimen Type: BLOOD No comment entered. Ordering Provider: Madelaine SAHA Report Released Date/Time: Oct 15, 2023 11:05 AM Reporting Lab: [facility] [address] [facility] [address] Performing Lab: [facility] [address] [facility] [address] [facility] CBC AND DIFF (AUTO) LYMPHOCYTE S/100 LEUKOCYTES IN BLOOD BY AUTOMATED COUNT 21.9 14.0 - 42.3 10/14 Specimen Type: BLOOD No comment entered. Ordering Provider: Madelaine SAHA Report Released Date/Time: Oct 15, 2023 11:05 AM Reporting Lab: [facility] [address] [facility] [address] Performing Lab: [facility] [address] [facility] [address] [facility] CBC AND DIFF (AUTO) MONOCYTES/ 100 LEUKOCYTES IN BLOOD BY AUTOMATED COUNT 7.2 5.1 - 13.7 10/14 Specimen Type: BLOOD No comment entered. Ordering Provider: Madelaine SAHA Report Released Date/Time: Oct 15, 2023 11:05 AM Reporting Lab: [facility] [address] [facility] [address] Performing Lab: [facility] [address] [facility] [address] [facility] CBC AND DIFF (AUTO) EOSINOPHIL S/100 LEUKOCYTES IN BLOOD BY AUTOMATED COUNT 2.1 0.4 - 6.8 10/14 Specimen Type: BLOOD No comment entered. Ordering Provider: Madelaine SAHA Report Released Date/Time: Oct 15, 2023 11:05 AM Reporting Lab: [facility] [address] [facility] [address] Performing Lab: [facility] [facility] [address] [address] [facility] CBC AND DIFF (AUTO) BASOPHILS/ 100 LEUKOCYTES IN BLOOD BY AUTOMATED COUNT 0.6 0.1 - 2.0 10/14 Specimen Type: BLOOD No comment entered. Ordering Provider: Madelaine SAHA Report Released Date/Time: Oct 15, 2023 11:05 AM Reporting Lab: [facility] [place] [facility] [address] [facility] [address] Performing Lab: [facility] [place] [facility] [address] [facility] [address] [facility] CBC AND DIFF (AUTO) NEUTROPHIL S [#/VOLUME] IN BLOOD BY AUTOMATED COUNT 4.58 10*3/uL 2.20 - 7.60 10/14 Specimen Type: BLOOD No comment entered. Ordering Provider: Madelaine SAHA Report Released Date/Time: Oct 15, 2023 11:05 AM Reporting Lab: [facility] [address] [facility] [address] Performing Lab: [facility] [place] [facility] [address] [facility] [address] [facility] CBC AND DIFF (AUTO) LYMPHOCYTE S [#/VOLUME] IN BLOOD BY AUTOMATED COUNT 1.48 10*3/uL 1.00 - 3.20 10/14 Specimen Type: BLOOD No comment entered. Ordering Provider: Madelaine SAHA Report Released Date/Time: Oct 15, 2023 11:05 AM Reporting Lab: [facility] [address] [facility] [address] Performing Lab: [facility] [place] [facility] [address] [facility] [address] [facility] CBC AND DIFF (AUTO) EOSINOPHIL S [#/VOLUME] IN BLOOD BY AUTOMATED COUNT 0.14 10*3/uL 0.03 - 0.44 10/14 Specimen Type: BLOOD No comment entered. Ordering Provider: Madelaine SAHA Report Released Date/Time: Oct 15, 2023 11:05 AM Reporting Lab: [facility] [address] [address] Performing Lab: [facility] [place] [facility] [address] [facility] [address] [facility] CBC AND DIFF (AUTO) BASOPHILS [#/VOLUME] IN BLOOD BY AUTOMATED COUNT 0.04 10*3/uL 0.01 - 0.13 10/14 Specimen Type: BLOOD No comment entered. Ordering Provider: Madelaine SAHA Report Released Date/Time: Oct 15, 2023 11:05 AM Reporting Lab: [facility] [place] [facility] [address] [facility] [address] Performing Lab: [facility] [place] [facility] [address] [facility] [address] [facility] CBC AND DIFF (AUTO) IMMATURE GRANULOCYT ES/100 LEUKOCYTES IN BLOOD BY AUTOMATED COUNT 0.4 0.0 - 0.7 10/14 Specimen Type: BLOOD No comment entered. Ordering Provider: Madelaine SAHA Report Released Date/Time: Oct 15, 2023 11:05 AM Reporting Lab: [facility] [address] [address] Performing Lab: [facility] [place] [facility] [address] [facility] [address] [facility] CBC AND DIFF (AUTO) IMMATURE GRANULOCYT ES [#/VOLUME] IN BLOOD 0.03 10*3/uL 0.00 - 0.06 10/14 Specimen Type: BLOOD No comment entered. Ordering Provider: Madelaine SAHA Report Released Date/Time: Oct 15, 2023 11:05 AM Reporting Lab: [facility] [place] [facility] [address] [facility] [address] Performing Lab: [facility] [place] [facility] [address] [facility] [address] [facility] CBC LEUKOCYTES [#/VOLUME] IN BLOOD BY AUTOMATED COUNT 6.94 10*3/uL 4.50 - 11.00 05/24 Specimen Type: BLOOD No comment entered. Ordering Provider: Madelaine SAHA Report Released Date/Time: Apr 14, 2023 08:29 AM Reporting Lab: [facility] [place] [facility] [address] [facility] [address] Performing Lab: [facility] [place] [facility] [address] [facility] [address] [facility] CBC ERYTHROCYT ES [#/VOLUME] IN BLOOD BY AUTOMATED COUNT 4.59 10*6/uL 4.23 - 5.66 05/24 Specimen Type: BLOOD No comment entered. Ordering Provider: Madelaine SAHA Report Released Date/Time: Apr 14, 2023 08:29 AM Reporting Lab: [facility] [place] [facility] [address] [facility] [address] Performing Lab: [facility] [place] [facility] [address] [facility] [address] [facility] CBC HEMOGLOBIN [MASS/VOLU ME] IN BLOOD 12.9 g/dL 12.8 - 17 05/24 Specimen Type: BLOOD No comment entered. Ordering Provider: Madelaine SAHA Report Released Date/Time: Apr 14, 2023 08:29 AM Reporting Lab: [facility] [address] [facility] [address] Performing Lab: [facility] [address] [facility] [address] [facility] CBC HEMATOCRIT [VOLUME FRACTION] OF BLOOD BY AUTOMATED COUNT 40.6 39.2 - 50.4 05/24 Specimen Type: BLOOD No comment entered. Ordering Provider: Madelaine SAHA Report Released Date/Time: Apr 14, 2023 08:29 AM Reporting Lab: [facility] [address] [facility] [address] Performing Lab: [facility] [place] [facility] [address] [facility] [address] [facility] CBC MCV [ENTITIC VOLUME] BY AUTOMATED COUNT 88.5 fL 82 - 99 05/24 Specimen Type: BLOOD No comment entered. Ordering Provider: Madelaine SAHA Report Released Date/Time: Apr 14, 2023 08:29 AM Reporting Lab: [facility] [address] [facility] [address] Performing Lab: [facility] [place] [facility] [address] [facility] [address] [facility] CBC MCHC [MASS/VOLU ME] BY AUTOMATED COUNT 31.8 g/dL 30.8 - 35.1 05/24 Specimen Type: BLOOD No comment entered. Ordering Provider: Madelaine SAHA Report Released Date/Time: Apr 14, 2023 08:29 AM Reporting Lab: [facility] [address] [facility] [address] Performing Lab: [facility] [address] [facility] [address] [facility] CBC PLATELETS [#/VOLUME] IN BLOOD BY AUTOMATED COUNT 309 10*3/uL 140 - 360 05/24 Specimen Type: BLOOD No comment entered. Ordering Provider: Madelaine SAHA Report Released Date/Time: Apr 14, 2023 08:29 AM Reporting Lab: [facility] [place] [facility] [address] [facility] [address] Performing Lab: [facility] [address] [facility] [address] [facility] CBC ERYTHROCYT E DISTRIBUTI ON WIDTH [RATIO] BY AUTOMATED COUNT 14.0 12.0 - 16.0 05/24 Specimen Type: BLOOD No comment entered. Ordering Provider: Madelaine SAHA Report Released Date/Time: Apr 14, 2023 08:29 AM Reporting Lab: [facility] [place] [facility] [address] [facility] [address] Performing Lab: [facility] [place] [facility] [address] [facility] [address] [facility] [place] [facility] CBC MCH [ENTITIC MASS] BY AUTOMATED COUNT 28.1 pg 26.2 - 32.6 05/24 Specimen Type: BLOOD No comment entered. Ordering Provider: Madelaine SAHA Report Released Date/Time: Apr 14, 2023 08:29 AM Reporting Lab: [facility] [place] [facility] [address] [facility] [address] Performing Lab: [facility] [place] [facility] [address] [facility] [address] [facility] URINALYS IS COLOR OF URINE Light-Ye llow 05/24 Specimen Type: URINE Comment: If Glucose = >500 and Ketones are positive, please alert the Physician. Ordering Provider: Madealine SAHA Report Released Date/Time: Apr 26, 2023 04:38 PM Reporting Lab: [facility] [place] [facility] [address] [facility] [address] Performing Lab: [facility] [place] [facility] [address] [facility] [address] [facility] URINALYS IS APPEARANCE OF URINE Clear 05/24 Specimen Type: URINE Comment: If Glucose = >500 and Ketones are positive, please alert the Physician. Ordering Provider: Madelaine SAHA Report Released Date/Time: Apr 26, 2023 04:38 PM Reporting Lab: [facility] [place] [facility] [address] [facility] [address] Performing Lab: [facility] [place] [facility] [address] [facility] [address] [facility] URINALYS IS GLUCOSE [MASS/VOLU ME] IN URINE NEGATIVE mg/dL 05/24 Specimen Type: URINE Comment: If Glucose = >500 and Ketones are positive, please alert the Physician. Ordering Provider: Madelaine SAHA Report Released Date/Time: Apr 26, 2023 04:38 PM Reporting Lab: [facility] [place] [facility] [address] [facility] [address] Performing Lab: [facility] [place] [facility] [address] [facility] [address] [facility] [place] [facility] URINALYS IS KETONES [MASS/VOLU ME] IN URINE BY TEST STRIP NEGATIVE mg/dL 05/24 Specimen Type: URINE Comment: If Glucose = >500 and Ketones are positive, please alert the Physician. Ordering Provider: Madelaine SAHA Report Released Date/Time: Apr 26, 2023 04:38 PM Reporting Lab: [facility] [place] [facility] [address] [facility] [address] Performing Lab: [facility] [place] [facility] [address] [facility] [address] [facility] [place] [facility] URINALYS IS ERYTHROCYT ES [PRESENCE] IN URINE SEDIMENT BY LIGHT MICROSCOPY NEGATIVE mg/dL 05/24 Specimen Type: URINE Comment: If Glucose = >500 and Ketones are positive, please alert the Physician. Ordering Provider: Madelaine SAHA Report Released Date/Time: Apr 26, 2023 04:38 PM Reporting Lab: [facility] [place] [facility] [address] [facility] [address] Performing Lab: [facility] [place] [facility] [address] [facility] [address] [facility] [place] [facility] URINALYS IS PROTEIN [MASS/VOLU ME] IN URINE BY TEST STRIP NEGATIVE mg/dL 05/24 Specimen Type: URINE Comment: If Glucose = >500 and Ketones are positive, please alert the Physician. Ordering Provider: Madelaine SAHA Report Released Date/Time: Apr 26, 2023 04:38 PM Reporting Lab: [facility] [place] [facility] [address] [facility] [address] Performing Lab: [facility] [place] [facility] [address] [facility] [address] [facility] [place] [facility] URINALYS IS NITRITE [PRESENCE] IN URINE NEGATIVE mg/dL 05/24 Specimen Type: URINE Comment: If Glucose = >500 and Ketones are positive, please alert the Physician. Ordering Provider: Madelaine SAHA Report Released Date/Time: Apr 26, 2023 04:38 PM Reporting Lab: [facility] [place] [facility] [address] [facility] [address] Performing Lab: [facility] [place] [facility] [address] [facility] [address] [facility] [place] [facility] URINALYS IS BILIRUBIN. TOTAL [PRESENCE] IN URINE NEGATIVE mg/dL 05/24 Specimen Type: URINE Comment: If Glucose = >500 and Ketones are positive, please alert the Physician. Ordering Provider: Madelaine SAHA Report Released Date/Time: Apr 26, 2023 04:38 PM Reporting Lab: [facility] [place] [facility] [address] [facility] [address] Performing Lab: [facility] [place] [facility] [address] [facility] [address] [facility]ITALRJACKSON HOSPITALN [facility]USE [facility] URINALYS IS SPECIFIC GRAVITY OF URINE BY REFRACTOME TRY 1.017 1.016 - 1.022 05/24 Specimen Type: URINE Comment: If Glucose = >500 and Ketones are positive, please alert the Physician. Ordering Provider: Madelaine SAHA Report Released Date/Time: Apr 26, 2023 04:38 PM Reporting Lab: [facility]ITALRGRANDVIEW [facility] CENTERTRN [place] [facility] [address] [facility] [address] Performing Lab: [facility] [place] [facility] [address] [facility] [address] [facility]ITALRGRANDVIEW MEDICAL CENTERTRN [place] [facility] URINALYS IS PH OF URINE BY TEST STRIP 6.0 5.0 - 9.0 05/24 Specimen Type: URINE Comment: If Glucose = >500 and Ketones are positive, please alert the Physician. Ordering Provider: Madelaine SAHA Report Released Date/Time: Apr 26, 2023 04:38 PM Reporting Lab: [facility] [place] [facility] [address] [facility] [address] Performing Lab: [facility]OSPITALRGRANDVIEW MEDICAL CENTERTRN [facility] SYSTEMUSETS [address] [address] [facility]ITALRJACKSON HOSPITALN [facility]ENTERCHUSE [facility] URINALYS IS UROBILINOG EN [MASS/VOLU ME] IN URINE BY TEST STRIP <2.0mg/d L <2.0 - 2.0 05/24 Specimen Type: URINE Comment: If Glucose = >500 and Ketones are positive, please alert the Physician. Ordering Provider: Madelaine SAHA Report Released Date/Time: Apr 26, 2023 04:38 PM Reporting Lab: [facility]ITALRGRANDVIEW MEDICAL CENTERTRN [place] [facility] [address] [facility] [address] Performing Lab: [facility]RL [facility]N [place] [facility] [address] [facility] [address] [facility] [place] [facility] URINALYS IS LEUKOCYTE ESTERASE [PRESENCE] IN URINE BY TEST STRIP NEGATIVE 05/24 Specimen Type: URINE Comment: If Glucose = >500 and Ketones are positive, please alert the Physician. Ordering Provider: Madelaine SAHA Report Released Date/Time: Apr 26, 2023 04:38 PM Reporting Lab: [facility]ITALRGRANDVIEW MEDICAL CENTERTRN [place] [address] [address] Performing Lab: [facility] [place] [facility] [address] [facility] [address] [facility] [place] [facility] MICROALB UMIN CREATINI NE RATIO PANEL MICROALBUM IN/CREATIN INE [MASS RATIO] IN URINE 21.1 mg/g 0 - 29.9 05/24 Specimen Type: URINE No comment entered. Ordering Provider: Madelaine SAHA Report Released Date/Time: Apr 26, 2023 04:38 PM Reporting Lab: [facility] [place] [facility] [address] [facility] [address] Performing Lab: [facility] [place] [facility] [address] [facility] [address] [facility] [place] [facility] MICROALB UMIN CREATINI NE RATIO PANEL MICROALBUM IN [MASS/VOLU ME] IN URINE 1.9 mg/dL 05/24 Specimen Type: URINE No comment entered. Ordering Provider: Madelaine SAHA Report Released Date/Time: Apr 26, 2023 04:38 PM Reporting Lab: [facility] [place] [facility] [address] [facility] [address] Performing Lab: [facility] [place] [facility] [address] [facility] [address] [facility] [place] [facility] MICROALB UMIN CREATINI NE RATIO PANEL CREATININE [MASS/VOLU ME] IN URINE 89.96 mg/dL 05/24 Specimen Type: URINE No comment entered. Ordering Provider: Madelaine SAHA Report Released Date/Time: Apr 26, 2023 04:38 PM Reporting Lab: [facility] [place] [facility] [address] [facility] [address] Performing Lab: [facility] [place] [facility] [address] [facility] [address] [facility] [place] [facility] IRON & TIBC PANEL IRON BINDING CAPACITY [MASS/VOLU ME] IN SERUM OR PLASMA 347 ug/dL 204 - 475 05/24 Specimen Type: SERUM No comment entered. Ordering Provider: Madelaine SAHA Report Released Date/Time: Apr 26, 2023 04:38 PM Reporting Lab: [facility] [place] [facility] [address] [facility] [address] Performing Lab: [facility] [place] [facility] [address] [facility] [address] [facility] [place] [facility] IRON & TIBC PANEL IRON [MASS/VOLU ME] IN SERUM OR PLASMA 41 ug/dL 40 - 160 05/24 Specimen Type: SERUM No comment entered. Ordering Provider: Madelaine SAHA Report Released Date/Time: Apr 26, 2023 04:38 PM Reporting Lab: [facility] [place] [facility] [address] [facility] [address] Performing Lab: [facility] [place] [facility] [address] [facility] [address] [facility] [place] [facility] IRON & TIBC PANEL IRON/IRON BINDING CAPACITY.T OTAL [MASS RATIO] IN SERUM OR PLASMA 11.8 20.0 - 50.0 05/24 L Specimen Type: SERUM No comment entered. Ordering Provider: Madelaine SAHA Report Released Date/Time: Apr 26, 2023 04:38 PM Reporting Lab: [facility] [place] [facility] [address] [facility] [address] Performing Lab: [facility] [place] [facility] [address] [facility] [address] [facility] [place] [facility] BASIC METABOLI C PANEL (fasting ) UREA NITROGEN [MASS/VOLU ME] IN SERUM OR PLASMA 17 mg/dL 7 - 25 05/24 Specimen Type: SERUM No comment entered. Ordering Provider: Madelaine SAHA Report Released Date/Time: Apr 26, 2023 04:38 PM Reporting Lab: [facility] [place] [facility] [address] [facility] [address] Performing Lab: [facility] [place] [facility] [address] [facility] [address] [facility] [place] [facility] BASIC METABOLI C PANEL (fasting ) GLUCOSE [MASS/VOLU ME] IN SERUM OR PLASMA 95 mg/dL 65 - 100 05/24 Specimen Type: SERUM No comment entered. Ordering Provider: Madelaine SAHA Report Released Date/Time: Apr 26, 2023 04:38 PM Reporting Lab: [facility]OSPITALRGRANDVIEW MEDICAL CENTERTRN [facility] SYSTEMUSE[address] [address] Performing Lab: [facility] HOSPITALRL TRN [facility] SYSTEMUSE[address] [address] [facility]OSPITALRL WSTRN [facility] SYSTEMUSE [facility] BASIC METABOLI C PANEL (fasting ) SODIUM [MOLES/VOL UME] IN SERUM OR PLASMA 142 mmol/L 135 - 145 05/24 Specimen Type: SERUM No comment entered. Ordering Provider: Madelaine SAHA Report Released Date/Time: Apr 26, 2023 04:38 PM Reporting Lab: [facility]OSPITALRGRANDVIEW MEDICAL CENTERTRN [address] [address] Performing Lab: [facility] HOSPITALRL TRN [facility] SYSTEMUSE[address] [address] [facility]PITALRGRANDVIEW MEDICAL CENTERTRN [facility]USE [facility] BASIC METABOLI C PANEL (fasting ) POTASSIUM [MOLES/VOL UME] IN SERUM OR PLASMA 4.8 mmol/L 3.5 - 5.0 05/24 Specimen Type: SERUM No comment entered. Ordering Provider: Madelaine SAHA Report Released Date/Time: Apr 26, 2023 04:38 PM Reporting Lab: [facility]PITALRL WSTRN [address] [address] Performing Lab: [facility]PITALRL WSTRN [facility] SYSTEMUSE[address] [address] [facility]ITALRL TRN [place] [facility] BASIC METABOLI C PANEL (fasting ) CHLORIDE [MOLES/VOL UME] IN SERUM OR PLASMA 107 mmol/L 100 - 110 05/24 Specimen Type: SERUM No comment entered. Ordering Provider: Madelaine SAHA Report Released Date/Time: Apr 26, 2023 04:38 PM Reporting Lab: [facility]ITALRL WSTRN [address] [address] Performing Lab: [facility]OSPITALRL WSTRN [facility] SYSTEMUSETS [facility] [address] [facility] [address] [facility]RL TRN [facility]USE [facility] BASIC METABOLI C PANEL (fasting ) CARBON DIOXIDE, TOTAL [MOLES/VOL UME] IN SERUM OR PLASMA 24 meq/L 20 - 30 05/24 Specimen Type: SERUM No comment entered. Ordering Provider: Madelaine SAHA Report Released Date/Time: Apr 26, 2023 04:38 PM Reporting Lab: [facility] [place] [facility] [address] [address] Performing Lab: [facility]N [facility] SYSTEMUSE[address] [address] [facility] BASIC METABOLI C PANEL (fasting ) CREATININE [MASS/VOLU ME] IN SERUM OR PLASMA 1.49 mg/dL 0.50 - 1.40 05/24 H Specimen Type: SERUM No comment entered. Ordering Provider: Madelaine SAHA Report Released Date/Time: Apr 26, 2023 04:38 PM Reporting Lab: [facility]N [facility]USE[address] [address] Performing Lab: [facility] TRN [facility]USE[address] [address] [facility]OSPITALRGRANDVIEW MEDICAL CENTERTRN [facility] SYSTEMUSE [facility] BASIC METABOLI C PANEL (fasting ) GLOMERULAR FILTRATION RATE/1.73 SQ M.PREDICTE D [VOLUME RATE/AREA] IN SERUM, PLASMA OR BLOOD BY CREATININE -BASED FORMULA (CKD-EPI 2020) 48 mL/min 60 05/24 L Specimen Type: SERUM No comment entered. Ordering Provider: Madelaine SAHA Report Released Date/Time: Apr 26, 2023 04:38 PM Reporting Lab: [facility]RL [facility] SYSTEMUSETS [address] [address] Performing Lab: [facility]ITALRL TRN [facility]USE[address] [address] [facility]ITALRJ[facility]ITALN [facility] Vital Signs Combined list of inpatient [...] Disposition Source [facility] [place] [facility] Outpatient Encounter [id number] Diagnos is: ICD-10- CM F43.10 Post-tr aumatic stress disorde r, unspeci fied FEARINGPARVEZ 09/20 [facility] En[facility] [id number] FEARINGPARVEZ 09/20 [facility] En[facility] [id number] 10/04 [facility] [place] [place] [facility] OFFICE O/P EST LOW 20 MIN [id number] Diagnos is: ICD-10- CM J44.9 Chronic obstruc tive pulmona ry disease , unspeci VALENTÍN Denise 10/21 [facility] OFF/OP EST MAY X REQ PHY/QHP [id number] Diagnos is: ICD-10- CM I10 Essenti al (primar y) hyperte nsion RONDARUPALDionna M 10/24 [facility] COMPRE OPH EXAM NEW PT 1/ [id number] [id number] Diagnos is: ICD-10- CM H40.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 Open angle with borderl ine finding s, low risk, bilater al MARIAH,PARVEZ BOONE 10/24 [facility] ECHO EXAM OF EYE THICKNESS [id number] Diagnos is: ICD-10- CM H40.013 Open angle with borderl ine finding s, low risk, bilater al PARVEZ LEMUS 10/24 [facility] FIT SPECTACLES MULTIFOCAL [id number] Diagnos is: ICD-10- CM Z46.0 Encount er for fit/adj st of spectac les and contact lenses MARIAHPARVEZ HAMLIN 10/25 [facility] Outpatient Encounter [id number] 10/25 [facility] Outpatient Encounter [id number] 11/22 [facility] Outpatient Encounter [id number] 11/23 [facility] Outpatient Encounter [id number] 12/07 [facility] Out[facility] Encounter [id number] 12/09 [facility] Outpatient Encounter [id number] 12/09 [facility] Out[facility] Encounter [id number] 01/23 [facility] QNHP OL DIG ASSMT&MGMT 5-10 [id number] [id number] Diagnos is: ICD-10- CM Z12.2 Encntr screen for maligna nt neoplas m of respira tory organs PUCHALSKI, MIRELA L 01/23 [facility] Outpatient Encounter [id number] 01/31 [facility] Outpatient Encounter [id number] 05/11 [facility] Out[facility] Encounter [id number] 05/16 [facility] QNHP OL DIG ASSMT&MGMT 5-10 [id number] [id number] Diagnos is: ICD-10- CM R52 Pain, unspeci fied GDULA,LAURA A 05/26 [facility] Outpatient Encounter [id number] [facility] Outpatient Encounter [id number] 08/09 [facility] OFFICE O/P EST HI 40 MIN [id number] Diagnos is: ICD-10- CM H40.013 Open angle with borderl ine finding s, low risk, bilater al ISABELL BARRY 09/07 [facility] FIT SPECTACLES MULTIFOCAL [id number] ISABELL BARRY 09/07 [facility] Outpatient Encounter [id number] 10/09 [facility] Outpatient Encounter [id number] 10/16 [facility] Outpatient Encounter [id number] 10/19 [facility] OFFICE O/P EST LOW 20 MIN [id number] Diagnos is: ICD-10- CM M35.00 Sjogren syndrom e, unspeci fied VALENTÍN SAHA 10/20 [facility] Outpatient Encounter [id number] 11/29 [facility] Outpatient Encounter [id number] 12/20 [facility] Outpatient Encounter [id number] 01/03 [facility] Outpatient Encounter [id number] 01/16 [facility] NQHP OL DIG ASSMT&MGMT 5-10 [id number] Diagnos is: ICD-10- CM Z12.2 Encntr screen for maligna nt neoplas m of respira tory organs PUCHALSKI, MIRELA L 01/22 [facility] Outpatient Encounter [id number] 01/22 [facility] Social History Combined list of available smoking, tobacco, and other social history from Department of Defense and Veterans Affairs facilities. Social History Type Response Date Comment Sourc e Tobacco smoking status NHIS VA-TOBACCO USE FORMER CIGARETTES 06/01/2024 [facility] History of tobacco use VA-TOBACCO NEVER USED OTHER TYPE 06/01/2024 [facility] History of tobacco use VA-TOBACCO FORMER USER 01/22/2023 [facility] History of tobacco use VA-TOBACCO FORMER USER 02/17/2022 [facility] History of tobacco use VA-TOBACCO QUIT 1 TO < 5 YRS 06/22/2019 VICKY EVANS Plan of Care List of future care activities from Department of Veterans Affairs facilities. Additional future care activities may be listed in the Assessment and Plan section. Date/Time Care Activity Care Activity Detail Facili ty 05/11/2025 AMBULATORY - MEDICINE AMBULATORY - MEDICI [facility] Advance Directives List of completed, amended, or rescinded Advance Directives on record at Department of [facility] facilities. An actual copy of the Directive is not included. Date Advance Directive Provider Source 10/26/2023 ADVANCE DIRECTIVE MARGARITA KRAFT [facility]
[2025-03-02 10:47] VITALS: BP 128/82; PULSE 92; TEMP 36.2; O2SAT 90; BMI 31.1
--- NOTE | 2025-03-02 10:47 | MHC.PC.OV ---
Vital Signs 03/02/25 10:47 Height 5 ft 6 in Weight 192 lb 10.944 oz BMI 31.1 BP 128/82 Blood Pressure Location Rt brachial Position Sitting Pulse 92 Pulse Source Pulse Oximeter Temp 97.1 F Temp Source Temporal Artery Scan Pulse Oximetry (%) 90 L Oxygen Delivery Method Room Air Intake Visit Reasons: 6 month follow up Accompanied by: Spouse Allergies heparin (porcine) Allergy (Severe, Verified 03/02/25 10:52) HIT Medication List - Last Reconciled 03/02/25 by Kia Stroud MD acetaminophen (Tylenol Extra Strength) 1,000 mg PO Q6H PRN albuterol sulfate 90 mcg/actuation 2 puffs inhalation Q6H PRN amlodipine 2.5 mg PO DAILY duloxetine 20 mg PO BEDTIME fluticasone propionate 50 mcg/actuation (Flonase Allergy Relief) 2 sprays intranasal DAILY PRN cztuvrsteps-nosjxrtom-iohwhfsf 100-62.5-25 mcg (Trelegy Ellipta) 1 inh inhalation DAILY gabapentin 600 mg PO BID 30 days Lactobac. rhamnosus GG-inulin 20 billion cell -200 mg (Culturelle Ultimate) 1 cap PO DAILY 2 weeks metoprolol succinate ER 50 mg PO DAILY miscellaneous medical supply As directed naloxone 4 mg/actuation (Narcan) 4 mg intranasal Q2M PRN prednisone 5 mg PO DAILY Tobacco use date assessed: 03/02/25 Fall risk assessment: No Falls in past year Last assessed Fall Risk: 03/02/25 Dental Screening Dental Screen Date: 03/02/25 Did you have a dental visit in the last 12 months?: Yes Did you have a dental problem in the last 6 months where you did not have access to dental care?: No Was dental information given to patient?: Patient has dentist [facility] Medical History MDD (major depressive disorder), single episode Pressure injury of buttock, stage 1 Deep vein thrombosis 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 Acute pulmonary embolism with acute cor pulmonale Acute pulmonary embolism Cardiac arrest CKD (chronic kidney disease) stage 3, GFR 30-59 ml/min Sjogren's disease Leg pain, bilateral Elevated serum creatinine COPD (chronic obstructive pulmonary disease) HTN (hypertension) Rheumatoid arthritis Chronic ulcer of leg Surgical History History of ankle surgery History of hernia repair History of left knee replacement Family History Sister Breast cancer Father Aneurysm Mother Angina at rest Other No family history of coronary artery disease Social History Household Members: Spouse Housing: House Do you presently have visiting nurse or other home services: No Alcohol intake: current Alcohol intake frequency: holidays/special occasions only Comment: restraints Patient Tobacco Use Status: Former Tobacco user Tobacco use type: Cigarette Cigarette Packs Per Day: 1 Years Smoked: quit + years e-Cigarette/Vaping Use: Never Used Second Hand Smoke Exposure: No Advance Directives Date on File: 12/23/21 service: Yes Current occupational status: retired Cognitive needs: Yes (cane) Hearing needs: No Vision needs: Yes (Pt wear glasses. ) Questionnaire PHQ-9 Over the last 2 weeks, how often have you been bothered by any of the following problems? 1. Little interest or pleasure in doing things: not at all 2. Feeling down, depressed, or hopeless: not at all 3. Trouble falling or staying asleep, or sleeping too much: several days 4. Feeling tired or having little energy: several days 5. Poor appetite or overeating: not at all 6. Feeling bad about yourself - or that you are a failure or have let yourself or your family down: not at all 7. Trouble concentrating on things, such as reading the newspaper or watching television: not at all 8. Moving or speaking so slowly that other people could have noticed. Or the opposite - being so fidgety or restless that you have been moving around a lot more than usual: not at all 9. Thoughts that you would be better off or of hurting yourself in some way: not at all Total score: 2 Source: Developed by Drs. Ronal Rivero, Cecelia Cortez, Johny Ocasio and colleagues, with an educational samantha from [employer]. Thrive Questionnaire Date Thrive assessed: 03/01/25 I am a: Parent/Caregiver What is your living situation today?: I have a steady place to live Within the past 12 months, did the food you bought not last and you didn't have the money to get more?: Never true Within the past 12 months, did you worry whether your food would run out before you got money to buy more?: Never true Do you have trouble paying for medicines?: No Do you have trouble getting transportation to medical appointments?: No Do you have trouble paying your heating and electricity bill?: No Do you have trouble taking care of your child, family member or friend?: No Do you have trouble with day-to-day activities such as bathing, preparing meals, shopping, managing finances, etc.?: Yes Are you currently unemployed and looking for a job?: No Are you interested in more education?: No Please select the resources that you would like help with: None Currently or been in a relationship where the following occur: No concerns reported THRIVE Score: 0 AUDIT C Alcohol Use Questionnaire (AUDIT-C) 1. How often do you have a drink containing alcohol?: Monthly or less 2. How many drinks containing alcohol do you have on a typical day when you are drinking?: 1 or 2 3. How often do you have six or more drinks on one occasion?: Never Total Score: 1 RENETTA-7 AMB Questionnaire RENETTA-7 Date RENETTA - 7 assessed: 09/04/24 Feeling nervous, anxious, or on edge: 1 = Several days Not being able to stop or control worryin = Not at all Worrying too much about different things: 0 = Not at all Trouble relaxin = Several days Being so restless that it is hard to sit still: 0 = Not at all Becoming easily annoyed or irritable: 0 = Not at all Feeling afraid as if something awful might happen: 0 = Not at all Total RENETTA-7 score (0-4 normal; 5-9 mild; 10-14 moderate; 15-21 severe): 2 Source: Developed by Drs. Ronal Rivero, Cecelia Cortez, Johny Ocasio and colleagues, with an educational samantha from [employer]. Physical exam (Primary Care) Vital Signs: Last Vital Signs Temp 97.1 F 03/02/25 10:47 Pulse 92 03/02/25 10:47 BP 128/82 03/02/25 10:47 Pulse Ox 90 L 03/02/25 10:47 Oxygen Delivery Method Room Air 03/02/25 10:47 BMI result Body Mass Index 31.1 Tobacco/Smoking Status: Tobacco use Status Tobacco use date assessed 03/02/25 03/02/25 10:54 Patient Tobacco Use Status Former Tobacco user 03/02/25 10:54 Tobacco use type Cigarette 03/02/25 10:54 e-Cigarette/Vaping Use Never Used 03/02/25 10:54 PHQ-9: PHQ-9 Score PHQ-9: Total score 2 03/02/25 11:13 Thrive Assessment: Date of Thrive Assessment Date Thrive assessed 03/01/25 03/02/25 10:54 Currently or been in a relationship where the following occur: No concerns reported Const General: alert; No acute distress Eyes Conjunctivae: conjunctivae normal Resp Auscultation: clear to auscultation bilaterally Cardio Rate: regular rate Rhythm: regular rhythm GI Inspection: Yes normal to inspection Extrem General: Yes edema Coding Level of Care Code Est Pt Level 4 (06816) Complex EM visit Add On G2211 Diagnoses HTN (hypertension) I10 Ascending aorta dilatation I77.810 Hypertriglyceridemia E78.1 Rheumatoid arthritis of multiple sites with negative rheumatoid factor M06.09 Rheumatoid arthritis location: multiple sites Rheumatoid factor presence: without rheumatoid factor COPD (chronic obstructive pulmonary disease) J44.9 Pyoderma gangrenosum L88 MDD (major depressive disorder), single episode F32.9 Hypoxemia R09.02 Assessment & Plan Assessment & Plan (1) HTN (hypertension): Code(s): I10 - Essential (primary) hypertension Category: Medical Plan: Continue with blood pressure medication. Decrease salt intake and exercise on amlodipine 2.5 mg once a day metoprolol 50 mg once a day (2) Ascending aorta dilatation: Comment: October 2023 4.1 Code(s): I77.810 - Thoracic aortic ectasia Category: Medical Plan: Continuing to monitor (3) Hypertriglyceridemia: Code(s): E78.1 - Pure hyperglyceridemia Category: Medical Plan: Avoid fried foods, chicken skin, eggs, butter margarine, pastries and meat. Be it pork or beef they have a lot of cholesterol (4) Rheumatoid arthritis: Comment: Ddx 1990s Treated with Enbrel for 15 years Changed to infliximab and prednisone at the onset of leg wounds with good response Switched to Kevzara 2021 due to breakthrough synovitis with good response initially Changed to Rinvoq without significant improvement in wounds Subsequently failed Humira, MMF for his wounds Code(s): M06.9 - Rheumatoid arthritis, unspecified Category: Medical Qualifiers: Rheumatoid arthritis location: multiple sites Rheumatoid factor presence: without rheumatoid factor Qualified Code(s): M06.09 - Rheumatoid arthritis without rheumatoid factor, multiple sites Plan: Continue to follow-up with Rheumatology on steroids tapering (5) COPD (chronic obstructive pulmonary disease): Code(s): J44.9 - Chronic obstructive pulmonary disease, unspecified Category: Medical Plan: Continue with Trelegy and DuoNeb (6) Pyoderma gangrenosum: Comment: This is a 78-year-old male originally from [place], recently moved to [place] with past medical history of seronegative RA/Sjogren's (dry mouth +++Ro) diagnosed in the treated with Enbrel for at least 15 years years. Patient had right lower extremity wounds which were treated with Renflexis & prednisone with good results however he was having recurrent knee swelling. He was switched to Kevzara early 2021 with some improvement. Patient developed left lower extremity pyoderma gangrenosum. This started around June 2021. 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 He is currently on warfarin now switched to rivaroxaban by distance education director. This was discontinued months ago. Patient was started on Rinvoq by his child adolescent care Dr. Omar Cantor in [place], with little improvement, then dose was increased from 15 mg daily to 30 mg daily for a few months without significant improvement. A steroid tapering course was prescribed 10 months ago which provided temporary improvement. Patient took 3 doses of Renflexis and it was discontinued due to a reaction with joint pain. He was then started on Humira, he took Humira 40 mg every other week then advanced to 40 mg weekly without improvement. He then failed CellCept. CellCept was discontinued. 04/2024 patient was admitted with COPD exacerbation and received IV steroids with improvement of his pyoderma gangrenosum wounds, he was advised by his child adolescent care to continue with steroids, his steroids are being tapered, per once the dose was lowered to 10 mg a day he stopped getting any improvement. 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 My belief is Renflexis and prednisone was working well for rheumatoid arthritis and pyoderma gangrenosum, when patient was switched to Kevzara the pyoderma gangrenosum recurred Code(s): L88 - Pyoderma gangrenosum Category: Medical Plan: Patient continues to follow-up with Rheumatology (7) MDD (major depressive disorder), single episode: Code(s): F32.9 - Major depressive disorder, single episode, unspecified Category: Medical Plan: Continue with present medication (8) Hypoxemia: Code(s): R09.02 - Hypoxemia Category: Medical Plan: Discussed the problem of hypoxemia with the recent test Plan History of Present Illness The patient is a 79-year-old male presenting for follow-up care and management of multiple chronic conditions. He has a history of pyoderma gangrenosum, rheumatoid arthritis, and Sjogren's syndrome, which have been managed with various medications including steroids and Rynvoke, though with limited improvement. The patient also reports chronic leg ulcers, which have been treated with wound care and steroid creams, though he is cautious about using topical steroids due to systemic absorption concerns. The patient has a significant cardiac history, including a past cardiac arrest and pulmonary embolism, for which he was previously on Xarelto, but this was discontinued. He also has chronic obstructive pulmonary disease (COPD) and hypoxemia, requiring supplemental oxygen at night, though he experiences difficulties keeping the oxygen on throughout the night. An overnight oximetry test revealed significant desaturation events, and a sleep study has been advised to further evaluate his nocturnal hypoxemia. The patient has a history of hypertension and hypercholesterolemia, managed with medications including amlodipine and metoprolol. He also has peripheral neuropathy, which causes significant pain, managed with gabapentin and duloxetine, though he experiences side effects such as sleepiness. The patient has a history of depression, which is also managed with duloxetine. The patient has anemia, with recent blood work showing a hemoglobin level of 12.5 g/dL. He has been advised to maintain a high-iron diet due to intolerance to iron supplements. Preventative care includes a negative Cologuard test for colon cancer screening conducted in May 2024. Health Maintenance - Colon cancer screening with Cologuard test in May 2024, result negative - Advised high-iron diet due to anemia and intolerance to iron supplements Social History - History of smoking, currently not smoking - Reports limited physical activity due to chronic conditions - Occasional alcohol consumption, primarily wine during special occasions Review of Systems - Cardiovascular: Reports history of cardiac arrest, denies current chest pain - Respiratory: Reports dyspnea, especially at night, denies cough - Neurological: Reports peripheral neuropathy with pain, denies dizziness - Hematologic: Reports anemia, denies easy bruising or bleeding - Psychiatric: Reports depression, denies anxiety Physical Exam Results - Labs: Hemoglobin 12.5 g/dL indicating anemia - Tests: Cologuard test negative for colon cancer - Diagnostics: Overnight oximetry showing desaturation events, 55 events per hour Plan The patient will continue to follow up with wound care for chronic leg ulcers and manage pyoderma gangrenosum with dermatology consultations. For COPD and hypoxemia, the patient is advised to continue using supplemental oxygen at night and consider a sleep study to evaluate nocturnal desaturation. Management of hypertension and hypercholesterolemia will continue with current medications, including amlodipine and metoprolol. Peripheral neuropathy pain management will involve adjusting gabapentin and duloxetine dosages to minimize side effects while maintaining pain control. The patient is advised to maintain a high-iron diet due to anemia and intolerance to iron supplements. Preventative care measures include regular follow-ups and screenings as needed. Patient was informed and verbally consented to the use of an ambient scribe for clinic note documentation during this visit. Discussion Notes During the visit, I discussed the management of the patient's chronic conditions, including the continuation of current medications for hypertension and hypercholesterolemia. We reviewed the need for a sleep study to assess nocturnal hypoxemia and the importance of maintaining supplemental oxygen use at night. I advised the patient on the benefits of a high-iron diet due to anemia and discussed the potential side effects of increasing gabapentin and duloxetine dosages for neuropathy pain management. Patient Instructions - Continue using supplemental oxygen at night as prescribed. - Follow up with dermatology for pyoderma gangrenosum management. - Maintain a high-iron diet to manage anemia. - Monitor and adjust gabapentin and duloxetine dosages as needed to manage neuropathy pain and minimize side effects. - Schedule and complete a sleep study to evaluate nocturnal hypoxemia.
--- OUTSIDE RECORDS SUMMARY | 2025-03-02 10:47 | XMS_ITS | Patient Health Record ---
Author Organization [facility] Address [address] [place] [id number] Care Team Providers Care Flight Technician Name Role Phone Lalitha MORALES, William Primary Care Provider Kong Nava Unavailable [phone] Arnav Limon Unavailable Unavailable Allergies No Known Allergies Reason For Referral No Information Medications Medication SIG (Take, Route, Frequency, Duration) Notes Start Date End Date Status Enbrel SureClick 50 MG/ML Subcutaneous Active Problems Problem Type SNOMED Code ICD Code Onset Dates Problem Status W/U Status Risk Notes Problem Skin ulcer of calf (875026302) Ulcer (skin exp) LEFT CALF (L97.221) Active confirmed Problem Varicose veins of lower extremity (10997371) Vikash Insuf (other compl) LEFT (I83.892) Active confirmed Problem Vikash Insuf (ulcer) LEFT CALF (I83.022) Active confirmed Plan Of Treatment No Information Insurance Providers Payer Name Payer Address Payer Phone Subscriber Number Group Number Insured Name Patient Relationship to Insured Coverage Start Date Coverage End Date [employer] Blue [address] [place] [address] [id number] Sarath Gipson Self - patient is the insured [employer] PPO,EPO & Medigap [address] [place] [address] [id number] Farideh Gipson Spouse - patient is the spouse of the insured [employer] [address] [place] [address] [id number] Sarath Gipson Self - patient is the insured 8
--- OUTSIDE RECORDS SUMMARY | 2025-03-02 10:47 | XMS_ITS | Clinical Summary ---
Author Organization [facility] Address [address] [place] [address] Phone Care Team Providers Care Dial Brusher Name Role Phone Kia Stroud MD Primary Care Provider Allergies No known active allergies Medications umeclidinium-vi [...] Noted Date Diagnosed Date Rheumatoid arthritis of [facility] sites with negative rheumatoid factor 12/14/2021 [...] off Inflixamab. He is being followed by [facility] and receiving a prednisone [...] off Inflixamab. He is being followed by [facility] and receiving a prednisone taper, current dose 10 mg/day. Recent admission for cellulitis /wound infection of LE requiring Surgery,c/b DVT, PE,cardiac arrest now on coumadin. Followed by [facility] for significant skin ulceration -Will need to hold any biologic treatment until wounds healed. RA does not appear active currently on pred 10 mg -Will need derm involved for LE ulcers, ? 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 He is being followed by [facility] and receiving a prednisone taper, current dose [...] now on prednisone taper , followed by [facility] Would recommend dermatology involvement Consider [facility] derm/rheum clinic Assessment & Plan (12/15/2021 12:00 AM EDT): Long hx of bilateral LE wounds Treated in past for venous stasis with minimal improvement Most recent pathology ? Venous stasis vs PG Resolution of ulcerations on Inflixamab supports the diagnosis of PG Off Inflixamab since 07/01 with recurrent ulcerations, now on prednisone taper , followed by [facility] Would recommend dermatology involvement Consider [facility] derm/rheum clinic Venous insufficiency 09/30/2021 Smoking history [...] EDT) SODIUM 143 133 - 146 mmol/L [facility] POTASSIUM 4.7 3.3 - 5.1 mmol/L [facility] CHLORIDE 105 96 - 108 mmol/L [facility] CO2 27 21 - 35 mmol/L [facility] BUN 43(H) 6 - 19 mg/dL [facility] CREATININE 0.80 0.5 - 1.5 mg/dL [facility] GLUCOSE 90 70 - 99 mg/dL [facility] ALBUMIN 3.5(L) 3.9 - 4.8 g/dL [facility] TOTAL PROTEIN 6.2(L) 6.5 - 8.0 g/dL [facility] CALCIUM 9.5 8.4 - 10.3 mg/dL [facility] ALKALINE PHOSPHATASE 72 39 - 117 U/L [facility] TOTAL BILIRUBIN <0.2 0.0 - 1.2 mg/dL [facility] AST 18 0 - 37 U/L [facility] ALT 34 0 - 40 U/L [facility] GLOBULIN 2.7 1 - 4.8 g/dL [facility] EGFR 92 >59 mL/min/1.7 3m2 [facility] Comment:Estimated glomerular filtration rate calculated using the CKD-EPI refit equation. ANION GAP 16 10 - 20 mmol/L [facility] Blood 02/13/2022 10:3 0 AM EDT 02/13/2022 11:28 PM EDT us Alesia Cornejo MD LAB BLOOD ORDERABLES Final Res ult [facility] [address] [place] [address] from Last 3 Months or Most Recently Relevant to Health Maintenance Insurance [employer] O MEDICARE REPLACEMENT AET[employer] PPO MEDICARE REPLACEMENT AET[employer] O MEDICARE REPLACEMENT A[employer] O MEDICARE REPLACEMENT AET[employer] O MEDICARE REPLACEMENT AET[employer] O MEDICARE REPLACEMENT AET[employer] O MEDICARE REPLACEMENT AETNA O MEDICARE REPLACEMENT [employer] PPO MEDICARE REPLACEMENT Care Teams Dial Brusher Relationship Specialty Start Date End Date Kia Stroud MD [address] [place] [address] PCP - General Internal Medicine 02/25/22 Additional Source Comments The information contained in this document represents components of the legal health record. It is not the complete legal health record.[facility]
--- OUTSIDE RECORDS SUMMARY | 2025-03-02 10:47 | XMS_ITS | Clinical Summary ---
Author Organization [facility] Address [address] [place] [address] Care Team Providers Care Bow Maker Machine Tender Name Role Phone Kia Stroud MD Primary Care Provider [phone] Social History Tobacco Use Types Packs/Day Years [...] this topic Insurance [employer] [place] [id number] Care Teams Bow Maker Machine Tender Relationship Specialty Start Date End Date Kai Stroud MD [facility] [address] [place], [place] PCP - General Internal Medicine 12/04/21
== END 2025-03-02 11:46 | disposition home or self-care (01) ==
LOC: HO.HMCH 10:45
PROVIDERS: PCP Internal Medicine; Visit Provider Internal Medicine
DX: I10 Essential (primary) hypertension (principal); M06.09 Rheumatoid arthritis without rheumatoid factor, multiple sites; J44.9 Chronic obstructive pulmonary disease, unspecified; L88 Pyoderma gangrenosum; I77.810 Thoracic aortic ectasia; E78.1 Pure hyperglyceridemia; F32.9 Major depressive disorder, single episode, unspecified; R09.02 Hypoxemia

== ENCOUNTER → 2025-03-02 10:44 | Outpatient (BNVA) | payer MEDICARE, SELFPAY | PROVIDERS: PCP Internal Medicine; Visit Provider Internal Medicine | DX: I10 Essential (primary) hypertension (principal); I77.810 Thoracic aortic ectasia; E78.1 Pure hyperglyceridemia; M06.09 Rheumatoid arthritis without rheumatoid factor, multiple sites; J44.9 Chronic obstructive pulmonary disease, unspecified; L88 Pyoderma gangrenosum; F32.9 Major depressive disorder, single episode, unspecified; R09.02 Hypoxemia | CPT/HCPCS: 96127; 99212 ==

== ENCOUNTER 2025-03-19 13:32 | Outpatient (AMB) | payer MEDICARE, SELFPAY ==
--- NOTE | 2025-03-19 13:35 | MHC.OFFVIS ---
Vital Signs 03/19/25 13:36 Height 5 ft 6 in Weight 190 lb 11.198 oz BMI 30.8 BP 108/72 Blood Pressure Location Rt brachial Position Sitting Pulse 70 Pulse Source Pulse Oximeter Pulse Oximetry (%) 91 L Oxygen Delivery Method Room Air Intake Visit Reasons: COPD Allergies heparin (porcine) Allergy (Severe, Verified 03/19/25 13:40) HIT HPI HPI COPD: Details: Sarath is a pleasant 79 year old male, former 30 pack year smoker, quit 2019, with underlying moderate COPD, Sjogren's, Rheumatoid arthritis previously on Humira/Acemtra/Enbrel, provoked PE, CKD, HTN and chronic nonhealing wound on chronic prednisone 7.5 mg. He continues to be nonambulatory due to poor healing wound on foot, currently in wheelchair and accompanied by . He reports moderate control of respiratory symptoms using Trelegy 100 mcg and albuterol MDI. He continues to report baseline dyspnea with exertion with occasionally productive cough with clear sputum at night. Denies wheezing or chest tightness. He denies any visits to urgent care or hospitalizations related to respiratory distress since the last visit. At the prior visit we reviewed overnight oximetry which revealed nocturnal hypoexmia <88% for 41 minutes and recommendation to assess for underlying sleep breathing disorder due to 43 desaturation events per hour with home sleep study, however patient declined. He was agreeable to using 1L of supplemental oxygen at [facility] due to hypoxia, which patient he has been using QOD. He has been monitoring oxygen saturation at home while at rest, occasionally decreases to 86% after activity, not interested in using supplemental oxygen with exertion. He also endorses orthopnea, BLE edema unclear if related to wounds, denies PND. Today he presents to review overnight oximetry results on 1L supplemental oxygen. Over the last two weeks patient reports increasing episodes of hypoxia requiring daytime supplemental oxygen 3L to maintain oxygen saturation >90% and has increased NOC O2 to 3L. He endorses intermittent dry cough and dyspnea otherwise denies wheezing, chest tightness, chest pain, hemoptysis or signs suggestive of an infectious process. [facility] Medical History MDD (major depressive disorder), single episode Pressure injury of buttock, stage 1 Deep vein thrombosis 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 Acute pulmonary embolism with acute cor pulmonale Acute pulmonary embolism Cardiac arrest CKD (chronic kidney disease) stage 3, GFR 30-59 ml/min Sjogren's disease Leg pain, bilateral Elevated serum creatinine COPD (chronic obstructive pulmonary disease) HTN (hypertension) Rheumatoid arthritis Chronic ulcer of leg Surgical History History of ankle surgery History of hernia repair History of left knee replacement Family History Sister Breast cancer Father Aneurysm Mother Angina at rest Other No family history of coronary artery disease Social History Household Members: Spouse Housing: House Do you presently have visiting nurse or other home services: No Alcohol intake: current Alcohol intake frequency: holidays/special occasions only Comment: restraints Patient Tobacco Use Status: Former Tobacco user Tobacco use type: Cigarette Cigarette Packs Per Day: 1 Years Smoked: quit + years e-Cigarette/Vaping Use: Never Used Second Hand Smoke Exposure: No Advance Directives Date on File: 12/23/21 service: Yes Current occupational status: retired Cognitive needs: Yes (cane) Hearing needs: No Vision needs: Yes (Pt wear glasses. ) Review of Systems Const Denies chills, Denies excessive sweating, Denies fever(s), Denies headache(s) and Denies night sweats Eyes Denies dry eyes, Denies irritation and Denies itchy eyes ENT Reports Normal hearing present, Denies headache(s), Denies nasal congestion, Denies nasal discharge and Denies sore throat Card Denies chest pain, Denies chest pain at rest, Denies chest pain with activity, Denies claudication, Reports dyspnea on exertion, Reports orthopnea and Denies paroxysmal nocturnal dyspnea Resp Denies change in phlegm color, Denies chest congestion, Reports cough, Denies hemoptysis, Denies excessive phlegm production, Denies pain on inspiration, Denies pain with cough, Reports dyspnea on exertion, Denies stridor and Denies wheezing Musc Denies myalgias Neuro Reports Normal hearing present and Denies headache(s) Endo Denies excessive sweating Jhon/Lymph Denies lymphadenopathy Aller/Immun Denies itchy eyes, Denies seasonal rhinorrhea and Denies wheezing Physical Exam Vital Signs: Last Vital Signs Pulse 70 03/19/25 13:36 BP 108/72 03/19/25 13:36 Pulse Ox 91 L 03/19/25 13:36 Oxygen Delivery Method Room Air 03/19/25 13:36 BMI result Body Mass Index 30.8 Const General: cooperative, healthy appearing, comfortable, no acute distress, well developed and alert Orientation/consciousness: patient oriented x3 Limitations: wheelchair HEENT Head: Yes normal to inspection, Yes normocephalic and Yes atraumatic Ears: hearing grossly normal bilaterally and external ears normal Eyes General: appearance normal, both eyes and all related structures Eyelids: Yes eyelids normal Sclerae: sclerae normal EOM: EOMs intact bilaterally Neck Neck: Yes normal visual inspection and Yes no lymphadenopathy Lymphatic: no lymphadenopathy noted Chest Chest palpation & inspection: normal inspection of the chest Resp Effort & Inspection: normal respiratory effort, able to speak in complete sentences, no audible wheezes, no cough, no stridor, not tachypneic, no tripod positioning and no use of accessory muscles Auscultation: diminished lung sounds Cardio Jugular venous distension: no JVD Rate: regular rate Skin Other: warm, dry Neuro General: patient oriented x3 Cranial nerves: Yes Normal hearing present Cognition (Neuro): normal cognition Extrem Other: LLE with edema, covered with dry, clean dressing, trace pedal edema on right Psych Appearance: grossly normal and well kempt Speech and movement: Normal speech and movement present and Clear speech present Affect: normal affect Attitude: cooperative Thought process: Normal thought process present Thought content: Normal thought content present Insight: Good insight present (Psych) Judgement: Good judgement present (Psych) Assessment & Plan Assessment & Plan (1) COPD (chronic obstructive pulmonary disease): Code(s): J44.9 - Chronic obstructive pulmonary disease, unspecified Category: Medical (2) Personal history of tobacco use: Comment: CT 10/30/2023 Code(s): Z87.891 - Personal history of nicotine dependence Category: Social Hx (3) Cough: Code(s): R05.9 - Cough, unspecified Category: Medical (4) Nocturnal hypoxemia: Code(s): G47.34 - Idiopathic sleep related nonobstructive alveolar hypoventilation Category: Medical Plan Reviewed overnight oximetry and 1L of supplemental oxygen is not sufficient, continues with >88% for over an hour and >89% for 2 hours, encouraged patient to increase to 3L at [facility] and monitor oxygen saturation during the day to maintain >90-92%. Overnight oximetry again noted significant number of desaturations suggestive of JORGE however patient continues to decline sleep study. Given increasing oxygen requirements will send for CXR and ddimer today. Signs and symptoms that warrant emergent evaluation reviewed. He currently reports moderate control of respiratory symptoms, with the use of Trelegy [address] chest performed in January through the [facility], will attempt to obtain report. All questions were answered and patient is in agreement of plan. Will follow up to review results or sooner if needed. Orders: Orders XR chest 2V Today R06.00 - Dyspnea, unspecified D Dimer High Sensitivity Today R09.02 - Hypoxemia Medications: Refilled okumkbreyrw-vayimelnv-xicwulcf 100-62.5-25 mcg (Trelegy Ellipta) 1 inh inhalation DAILY 60 ea 6RF Coding Level of Care Code Est Pt Level 4 (30583) Complex EM visit Add On G2211 Diagnoses COPD (chronic obstructive pulmonary disease) J44.9 Personal history of tobacco use Z87.891 Cough R05.9 Nocturnal hypoxemia G47.34
[2025-03-19 13:36] VITALS: BP 108/72; PULSE 70; O2SAT 91; BMI 30.8
--- OUTSIDE RECORDS SUMMARY | 2025-03-19 15:46 | XMS_ITS | Clinical Summary ---
Author Organization [facility] Address [address] [place] [address] Phone Care Team Providers Care Client Account Representative Name Role Phone Kia Stroud MD Primary Care Provider [phone] Allergies No known active allergies Medications umeclidinium-vi [...] Noted Date Diagnosed Date Rheumatoid arthritis of [facility] sites with negative rheumatoid factor 12/14/2021 Overview [...] off Inflixamab. He is being followed by [facility] and receiving a prednisone [...] off Inflixamab. He is being followed by [facility] and receiving a prednisone taper, current dose 10 mg/day. Recent admission for cellulitis /wound infection of LE requiring Surgery,c/b DVT, PE,cardiac arrest now on coumadin. Followed by [facility] for significant skin ulceration -Will need to hold any biologic treatment until wounds healed. RA does not appear active currently on pred 10 mg -Will need derm involved for LE ulcers, ? 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 He is being followed by [facility] [place] and receiving a prednisone taper, current dose [...] now on prednisone taper , followed by [facility] Would recommend dermatology involvement Consider [facility] derm[facility]heum [facility] Assessment & Plan (12/15/2021 12:00 AM EDT): Long hx of bilateral LE wounds Treated in past for venous stasis with minimal improvement Most recent pathology ? Venous stasis vs PG Resolution of ulcerations on Inflixamab supports the diagnosis of PG Off Inflixamab since 07/01 with recurrent ulcerations, now on prednisone taper , followed by [facility] Would recommend dermatology involvement Consider [facility] Venous insufficiency 09/30/2021 Smoking history [...] 02/13/2023 02/13/2022, , 01/28/2022, Additional history exists INFLUENZA VACCINE (#1) 2025 , 03/12/2021, 05/05/2020, Additional history exists PNEUMOCOCCAL VACCINES (50+ years) [...] EDT) SODIUM 143 133 - 146 mmol/L [facility] POTASSIUM 4.7 3.3 - 5.1 mmol/L [facility] CHLORIDE 105 96 - 108 mmol/L [facility] CO2 27 21 - 35 mmol/L [facility] BUN 43(H) 6 - 19 mg/dL [facility] CREATININE 0.80 0.5 - 1.5 mg/dL [facility] GLUCOSE 90 70 - 99 mg/dL [facility] ALBUMIN 3.5(L) 3.9 - 4.8 g/dL [facility] TOTAL PROTEIN 6.2(L) 6.5 - 8.0 g/dL [facility] CALCIUM 9.5 8.4 - 10.3 mg/dL [facility] ALKALINE PHOSPHATASE 72 39 - 117 U/L [facility] TOTAL BILIRUBIN <0.2 0.0 - 1.2 mg/dL [facility] AST 18 0 - 37 U/L [facility] ALT 34 0 - 40 U/L [facility] GLOBULIN 2.7 1 - 4.8 g/dL [facility] EGFR 92 >59 mL/min/1.7 3m2 [facility] Comment:Estimated glomerular filtration rate calculated using the CKD-EPI refit equation. ANION GAP 16 10 - 20 mmol/L [facility] Blood 02/13/2022 10:3 0 AM EDT 02/13/2022 11:28 PM EDT us Alesia Cornejo MD LAB BLOOD ORDERABLES Final Res ult [facility] [address] [place] [address] from Last 3 Months or Most Recently Relevant to Health Maintenance Insurance AETNA O MEDICARE REPLACEMENT AETNA O MEDICARE REPLACEMENT AETNA PPO MEDICARE REPLACEMENT AETNA O MEDICARE REPLACEMENT AETNA O MEDICARE REPLACEMENT AETNA O MEDICARE REPLACEMENT AETNA O MEDICARE REPLACEMENT AETNA PPO MEDICARE REPLACEMENT AETNA PPO MEDICARE REPLACEMENT Care Teams Client Account Representative Relationship Specialty Start Date End Date Kia Stroud MD [address] [place] [id number] PCP - General Internal Medicine 02/25/22 Additional Source Comments The information contained in this document represents components of the legal health record. It is not the complete legal health record.[facility]
--- OUTSIDE RECORDS SUMMARY | 2025-03-19 15:46 | XMS_ITS | Patient Health Record ---
Author Organization [facility] Address [address] [place] [id number] Care Team Providers Care Product Tester Fiberglass Name Role Phone Lalitha MORALES, William Primary Care Provider Kong Nava Unavailable [phone] Arnav Limon Unavailable Unavailable Allergies No Known Allergies Reason For Referral No Information Medications Medication SIG (Take, Route, Frequency, Duration) Notes Start Date End Date Status Enbrel SureClick 50 MG/ML Subcutaneous Active Problems Problem Type SNOMED Code ICD Code Onset Dates Problem Status W/U Status Risk Notes Problem Skin ulcer of calf (571012528) Ulcer (skin exp) LEFT CALF (L97.221) Active confirmed Problem Varicose veins of lower extremity (33109439) Vikash Insuf (other compl) LEFT (I83.892) Active confirmed Problem Vikash Insuf (ulcer) LEFT CALF (I83.022) Active confirmed Plan Of Treatment No Information Insurance Providers Payer Name Payer Address Payer Phone Subscriber Number Group Number Insured Name Patient Relationship to Insured Coverage Start Date Coverage End Date [employer] Blue [address] [place] [address] [id number] Sarath Gipson Self - patient is the insured [employer] PPO,EPO & Medigap [address] [place] [address] [id number] Farideh Gipson Spouse - patient is the spouse of the insured [employer] [address] [place] [address] [id number] Sarath Gipson Self - patient is the insured 8
== END 2025-03-19 14:18 | disposition home or self-care (01) ==
LOC: HO.HPS 13:32
PROVIDERS: PCP Internal Medicine; Visit Provider Nurse Practitioner Family
DX: J44.9 Chronic obstructive pulmonary disease, unspecified (principal); Z87.891 Personal history of nicotine dependence; R05.9 Cough, unspecified; G47.34 Idiopathic sleep related nonobstructive alveolar hypoventilation
CPT/HCPCS: 99214; G2211

== ENCOUNTER 2025-03-19 13:32 | Outpatient (REF) | payer MEDICARE, SELFPAY ==
--- NOTE | ~2025-03-19 | XR_ITS ---
EXAMINATION: XR CHEST CLINICAL INFORMATION: R06.00 - Dyspnea, unspecified COMPARISON: None available. TECHNIQUE: 2 views of the chest were obtained. FINDINGS: The lungs are expanded with platelike atelectasis left lung base. Rest of the lungs are clear. The heart size and pulmonary vascularity is normal. No gross bony abnormality seen. XR/XR chest 2V IMPRESSION: Platelike atelectasis left lung base. Electronically signed by: Christo Dorman MD 03/19/2025 04:35 PM EDT
[2025-03-19 15:42] LABS: D Dimer High Sensitivity 586 NG/ML
--- OUTSIDE RECORDS SUMMARY | 2025-03-19 16:46 | XMS_ITS | Clinical Summary ---
Author Organization [facility] Address [address] [place] [address] Care Team Providers Care Vegetable Worker Name Role Phone Kia Stroud MD Primary Care Provider [phone] Social History Tobacco Use Types Packs/Day Years [...] Insurance Aetna Medicare Aena Medicare Care Teams Vegetable Worker Relationship Specialty Start Date End Date Kia Stroud MD [facility] [address] [place], [place] PCP - General Internal Medicine 12/04/21
== END 2025-03-19 13:33 | disposition home or self-care (01) ==
LOC: HO.XRAY 13:32
PROVIDERS: PCP Internal Medicine; Visit Provider Nurse Practitioner Family
DX: J44.9 Chronic obstructive pulmonary disease, unspecified (principal); G47.34 Idiopathic sleep related nonobstructive alveolar hypoventilation; Z87.891 Personal history of nicotine dependence; Z96.652 Presence of left artificial knee joint
CPT/HCPCS: 36415; 71046; 85379; 99212

== ENCOUNTER → 2025-03-19 14:38 | Outpatient (BNV) | payer MEDICARE, SELFPAY | PROVIDERS: PCP Internal Medicine; Visit Provider Radiology Diagnostic Radiology | DX: J98.11 Atelectasis (principal) | CPT/HCPCS: 71046 ==

== ENCOUNTER 2025-03-22 13:45 | Outpatient (REF) | payer MEDICARE, SELFPAY ==
--- NOTE | ~2025-03-22 | CT_ITS ---
EXAMINATION: CT CHEST ANGIOGRAPHY WITH IV CONTRAST INDICATION: R09.02 - Hypoxemia COMPARISON: Comparison is made with the prior examination dated 11/23/2023. TECHNIQUE: Helical CT scan of the chest was performed following administration of intravenous contrast (65 mL Omnipaque 350). The contrast bolus was timed to optimally opacify the pulmonary arteries. Thin sections were obtained through the pulmonary arteries. Coronal and sagittal reformatted images were generated. 3D/MIP reconstructed images are also obtained and reviewed. This CT exam was performed with one or more of the following dose reduction techniques: automated exposure control, adjustment of the mA and/or kV according to patient size, use of iterative reconstruction technique. DLP: 251 mGy-cm CHEST: THYROID: The thyroid gland is unremarkable. PULMONARY ARTERIES: No intraluminal filling defects are identified within the pulmonary arteries to suggest pulmonary emboli. LUNGS: There is moderate to severe emphysema. There is linear subsegmental atelectasis versus scarring at both lung bases. There are no focal airspace opacities. MEDIASTINUM: There is no mediastinal lymphadenopathy. BILL: There is no hilar lymphadenopathy. CARDIOVASCULATURE: The heart is normal in size. There is no pericardial effusion. The thoracic aorta is normal in caliber. DEGREE OF CORONARY CALCIFICATION: not evaluable, due to dense contrast in the coronary arteries PLEURA: There is no pleural effusion. No pneumothorax. MAIN AIRWAYS: The mainstem bronchi and proximal branches are patent. AXILLA: There is no axillary lymphadenopathy. UPPER ABDOMEN: The visualized portions of the liver, spleen, and adrenals are unremarkable. BONES AND SOFT TISSUES: Unremarkable. CT/CT angio chest PE protocol IMPRESSION: 1. No evidence of pulmonary emboli. 2. Moderate to severe emphysema. Because moderate severe emphysema is an independent risk factor for lung cancer, consider entering the patient into a program of yearly lung cancer screening with low dose chest CT. Electronically signed by: Ronal Coleman MD 03/22/2025 02:36 PM EDT
[2025-03-22] MEDS: iohexoL 350 MG/ML 100 ML INFUS..BTL IV (14:27)
[2025-03-22 16:19] LABS: Creatinine POC 1.1 mg/dL (0.5-1.4); GFR POC > 60
--- OUTSIDE RECORDS SUMMARY | 2025-03-22 17:36 | XMS_ITS | Clinical Summary ---
Author Organization [facility] Address [address] [place] [address] Phone Care Team Providers Care Asset Protection Manager Name Role Phone Kia Stroud MD Primary Care Provider [phone] Allergies No known active allergies Medications umeclidinium-vi [...] Noted Date Diagnosed Date Rheumatoid arthritis of [facility] sites with negative rheumatoid factor 12/14/2021 Overview [...] off Inflixamab. He is being followed by [facility] and receiving a prednisone [...] off Inflixamab. He is being followed by [facility] and receiving a prednisone taper, current dose 10 mg/day. Recent admission for cellulitis /wound infection of LE requiring Surgery,c/b DVT, PE,cardiac arrest now on coumadin. Followed by [facility] for significant skin ulceration -Will need to hold any biologic treatment until wounds healed. RA does not appear active currently on pred 10 mg -Will need derm involved for LE ulcers, ? 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 He is being followed by [facility] [place] and receiving a prednisone taper, current dose [...] now on prednisone taper , followed by [facility] Would recommend dermatology involvement Consider [facility] derm/rheum clinic Assessment & Plan (12/15/2021 12:00 AM EDT): Long hx of bilateral LE wounds Treated in past for venous stasis with minimal improvement Most recent pathology ? Venous stasis vs PG Resolution of ulcerations on Inflixamab supports the diagnosis of PG Off Inflixamab since 07/01 with recurrent ulcerations, now on prednisone taper , followed by [facility] Would recommend dermatology involvement Consider [facility] derm/rheum clinic Venous insufficiency 09/30/2021 Smoking history [...] EDT) SODIUM 143 133 - 146 mmol/L [facility] POTASSIUM 4.7 3.3 - 5.1 mmol/L [facility] CHLORIDE 105 96 - 108 mmol/L [facility] CO2 27 21 - 35 mmol/L [facility] BUN 43(H) 6 - 19 mg/dL [facility] CREATININE 0.80 0.5 - 1.5 mg/dL [facility] GLUCOSE 90 70 - 99 mg/dL [facility] ALBUMIN 3.5(L) 3.9 - 4.8 g/dL [facility] TOTAL PROTEIN 6.2(L) 6.5 - 8.0 g/dL [facility] CALCIUM 9.5 8.4 - 10.3 mg/dL [facility] ALKALINE PHOSPHATASE 72 39 - 117 U/L [facility] TOTAL BILIRUBIN <0.2 0.0 - 1.2 mg/dL [facility] AST 18 0 - 37 U/L [facility] ALT 34 0 - 40 U/L [facility] GLOBULIN 2.7 1 - 4.8 g/dL [facility] EGFR 92 >59 mL/min/1.7 3m2 [facility] Comment:Estimated glomerular filtration rate calculated using the CKD-EPI refit equation. ANION GAP 16 10 - 20 mmol/L [facility] Blood 02/13/2022 10:3 0 AM EDT 02/13/2022 11:28 PM EDT us Alesia Cornejo MD LAB BLOOD ORDERABLES Final Res ult [facility] [address] [place] [address] from Last 3 Months or Most Recently Relevant to Health Maintenance Insurance AETNA O MEDICARE REPLACEMENT AETNA O MEDICARE REPLACEMENT AETNA PPO MEDICARE REPLACEMENT AETNA O MEDICARE REPLACEMENT AETNA O MEDICARE REPLACEMENT AETNA O MEDICARE REPLACEMENT AETNA O MEDICARE REPLACEMENT AETNA PPO MEDICARE REPLACEMENT AETNA PPO MEDICARE REPLACEMENT Care Teams Asset Protection Manager Relationship Specialty Start Date End Date Kia Stroud MD [address] [place] [id number] PCP - General Internal Medicine 02/25/22 Additional Source Comments The information contained in this document represents components of the legal health record. It is not the complete legal health record.[facility]
--- OUTSIDE RECORDS SUMMARY | 2025-03-22 17:36 | XMS_ITS | Clinical Summary ---
Author Organization [facility] Address [address] [place] [address] Care Team Providers Care Field Checker Name Role Phone Kia Stroud MD Primary Care Provider [phone] Social History Tobacco Use Types Packs/Day Years [...] Insurance A[employer]na Medicare Aena Medicare Care Teams Field Checker Relationship Specialty Start Date End Date Kia Stroud MD [facility] [address] [place], [place] PCP - General Internal Medicine 12/04/21
--- OUTSIDE RECORDS SUMMARY | 2025-03-22 17:36 | XMS_ITS | Patient Health Record ---
Author Organization [facility] Address [address] [place] [id number] Care Team Providers Care Hearing Impaired Itinerant Teacher Name Role Phone Lalitha MORALES, William Primary Care Provider Kong Nava Unavailable [phone] Arnav Limon Unavailable Unavailable Allergies No Known Allergies Reason For Referral No Information Medications Medication SIG (Take, Route, Frequency, Duration) Notes Start Date End Date Status Enbrel SureClick 50 MG/ML Subcutaneous Active Problems Problem Type SNOMED Code ICD Code Onset Dates Problem Status W/U Status Risk Notes Problem Vikash Insuf (ulcer) LEFT CALF (I83.022) Active confirmed Problem Varicose veins of lower extremity (02181066) Vikash Insuf (other compl) LEFT (I83.892) Active confirmed Problem Skin ulcer of calf (005208356) Ulcer (skin exp) LEFT CALF (L97.221) Active confirmed Plan Of Treatment No Information Insurance Providers Payer Name Payer Address Payer Phone Subscriber Number Group Number Insured Name Patient Relationship to Insured Coverage Start Date Coverage End Date [employer] Medicare Blue [address] [place] [address] [id number] Sarath Gipson Self - patient is the insured [facility],EPO & Medigap [address] [place] [address] [id number] Farideh Gipson Spouse - patient is the spouse of the insured [employer] [address] [place] [id number] Sarath Gipson Self - patient is the insured 8
== END 2025-03-22 13:46 | disposition home or self-care (01) ==
LOC: HO.CT 13:45
PROVIDERS: PCP Internal Medicine; Visit Provider Nurse Practitioner Family
DX: R09.02 Hypoxemia (principal)
CPT/HCPCS: 71275; 82565; Q9967

== ENCOUNTER → 2025-03-22 13:48 | Outpatient (BNV) | payer MEDICARE, SELFPAY | PROVIDERS: PCP Internal Medicine; Visit Provider Radiology Diagnostic Radiology | DX: J43.9 Emphysema, unspecified (principal) | CPT/HCPCS: 71275 ==

== ENCOUNTER 2025-03-27 12:43 | Outpatient (AMB) | payer MEDICARE, SELFPAY ==
--- NOTE | 2025-03-27 12:48 | A.OFFVIS_ITS ---
Vital Signs 03/27/25 12:55 Height 5 ft 6 in Weight 187 lb 13.341 oz BMI 30.3 BP 122/72 Blood Pressure Location Lt brachial Position Sitting Pulse 77 Pulse Source Pulse Oximeter Pulse Oximetry (%) 92 Oxygen Delivery Method Room Air Intake Visit Reasons: Pyoderma Intake Note: Patient presents for Pyoderma fo;;ow up. Allergies heparin (porcine) Allergy (Severe, Verified 03/27/25 12:53) HIT Medication List - Last Reconciled 03/27/25 by Lynda Iyer MD acetaminophen (Tylenol Extra Strength) 1,000 mg PO Q6H PRN albuterol sulfate 90 mcg/actuation 2 puffs inhalation Q6H PRN amlodipine 2.5 mg PO DAILY duloxetine 20 mg PO BEDTIME fluticasone propionate 50 mcg/actuation (Flonase Allergy Relief) 2 sprays intranasal DAILY PRN uvgytupjgjv-zovunrxwy-grhoekgc 100-62.5-25 mcg (Trelegy Ellipta) 1 inh inhalation DAILY gabapentin 600 mg PO BID 30 days metoprolol succinate ER 50 mg PO DAILY miscellaneous medical supply As directed naloxone 4 mg/actuation (Narcan) 4 mg intranasal Q2M PRN prednisone 5 mg PO DAILY HPI Comments Details: Patient is a 79-year-old male with COPD, depression, hypertension, allergies, hyperlipidemia complicated by aortic dilatation and peripheral vascular disease, 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, seronegative rheumatoid arthritis/Sjogren's syndrome and pyoderma gangrenosum here today for follow up Interval History: Patient last seen 12/13/24 with me - Not on any rheum medications, on prednisone from other providers - He has been doing well after the knee injection 07/2024 - Still having difficulty with healing his LE wounds Today - Not on any rheum medications, on prednisone from other providers - Still having the leg ulcer (pictures seen), looks improved - Concerned about the half-way steroids - Also complaining of bilateral lower leg pedal edema, unable to wear compression stockings - Neuropathy is worsening Rheumatologic History: seronegative RA/Sjogren's (dry mouth +++Ro) diagnosed in the treated with Enbrel for at least 15 years years Kevzara 2021 Infliximab Humira Cellcept added for pyoderma but subsequently discontinued Initial history: This is a 76-year-old male with a past medical history of rheumatoid arthritis, Sjogren's, pyoderma gangrenosum, hypertension, bilateral PE who presents for evaluation of left lower extremity open wounds. Patient is originally from [place], moved to [place] in June of 2021. Patient stated that he was initially diagnosed with Sjogren's at the [facility] back in the due to dry eyes. He was eventually diagnosed with rheumatoid arthritis and he had been on Enbrel since the for many years. Enbrel was switched to reflect this for about 1 year but it was not effective. He was switched to Actemra in June of 2021 to bring down his inflammatory markers down. He received Actemra infusions for 2-3 months then moved to [place]. In [place] patient initially could not find a golf course laborer, he was eventually evaluated by Dari Good. Starting June of 2021 patient started having open left lower extremity wounds that were quite painful. He was admitted at the hospital in summer for evaluation of those wounds. 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 He was started on argatroban then switched to warfarin on discharge. Patient was evaluated by instrument operator in [place] Dr. Godwin who started patient on Rinvoq 3-4 months ago. Tear they state that the smaller lower extremity wounds have closed and the large wound is not getting worse and might be getting somewhat better. With regards to his joint pain patient states he is about the same, he has stiffness of his hands worse on the right hand. He has bilateral hand contractures from many years of RA. Current Rheumatology Medication(s): [facility] Medical History MDD (major depressive disorder), single episode Pressure injury of buttock, stage 1 Deep vein thrombosis 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 Acute pulmonary embolism with acute cor pulmonale Acute pulmonary embolism Cardiac arrest CKD (chronic kidney disease) stage 3, GFR 30-59 ml/min Sjogren's disease Leg pain, bilateral Elevated serum creatinine COPD (chronic obstructive pulmonary disease) HTN (hypertension) Rheumatoid arthritis Chronic ulcer of leg Surgical History History of ankle surgery History of hernia repair History of left knee replacement Family History Sister Breast cancer Father Aneurysm Mother Angina at rest Other No family history of coronary artery disease Social History Household Members: Spouse Housing: House Do you presently have visiting nurse or other home services: No Alcohol intake: current Alcohol intake frequency: holidays/special occasions only Comment: restraints Patient Tobacco Use Status: Former Tobacco user Tobacco use type: Cigarette Cigarette Packs Per Day: 1 Years Smoked: quit + years e-Cigarette/Vaping Use: Never Used Second Hand Smoke Exposure: No Advance Directives Date on File: 12/23/21 service: Yes Current occupational status: retired Cognitive needs: Yes (cane) Hearing needs: No Vision needs: Yes (Pt wear glasses. ) Review of Systems Const Details: Review of Systems Constitutional: Denies fever, chills, weight loss ENT: Denies vision changes, eye pain or eye redness, dental caries, dry mouth GI: Denies nausea, vomiting, diarrhea, abdominal pain, change in BM Pulm: Denies SOB, TERRY, hemoptysis, wheezing Cards: Denies chest pain, palpitations Skin: Denies Raynaud's, rash, nail changes, photosensitivity, PERFORMANCE IMPROVEMENT DIRECTOR: Denies headaches, weakness, paresthesias, recurrent falls MSK: as per HPI All other systems reviewed and are unremarkable except noted above Physical Exam Exam Exam: Vital signs reviewed Physical Examination CONSTITUITIONAL Patient alert and cooperative. Well appearing and in no apparent painful distress Examined in wheel chair MSK Hands * Right Hand: Able to make a fist. No swelling or tenderness to palpation of the MCPs, PIPs or DIPs. Ulnar deviation with prominent synovial hypertrophy of the 2nd - 4th MCPs * Left Hand: Able to make a fist. No swelling or tenderness to palpation of the MCPs, PIPs or DIPs. Synovial hypertrophy noted Wrists * Right Wrist: Fixed wrist. No swelling or TTP * Left Wrist: Decreased ROM. No swelling or TTP Elbows * Right Elbow: Full ROM. No swelling or TTP. No TTP of the medial epicondyle. No TTP of the lateral epicondyle * Left Elbow: Full ROM. No swelling or TTP. No TTP of the medial epicondyle. No TTP of the lateral epicondyle Shoulders * Right shoulder:Decreased ROM. No swelling noted. No TTP of the AC joint. No TTP of the subacromial bursa. No TTP of the posterior shoulder * Left shoulder: Decreased ROM. No swelling noted. No TTP of the AC joint. No TTP of the subacromial bursa. No TTP of the posterior shoulder Knees * Right knee: Decreased ROM with swelling . TTP of the knee joint line. No TTP of pes anserine bursa * Left knee: Decreased ROM. No swelling noted. Surgical scar noted. No TTP of the knee joint line. No TTP of pes anserine bursa. Ankles * Right ankle: Good ankle dorsiflexion and plantar flexion. No TTP of the ankle joint * Left ankle: Good ankle dorsiflexion and plantar flexion. No TTP of the ankle joint Lower leg * Bilateral pedal edema noted up to the tibial tuberosity Feet * Unable to examine properly Tender points? * No tenderness to palpation of the bilateral trapezius, supraspinatus, anterior costochondral junctions, bilateral suboccipital muscle insertions SKIN Lipodermatosclerosis noted to the lower legs Vital Signs: Last Vital Signs Pulse 77 03/27/25 12:55 BP 122/72 03/27/25 12:55 Pulse Ox 92 03/27/25 12:55 Oxygen Delivery Method Room Air 03/27/25 12:55 BMI result Body Mass Index 30.3 Office Procedures AMB Joint Injection/Aspiration Joint Injection/Aspiration Details: Date: 03/27/2025 Study Type: Limited Ultrasound with Guidance of needle placement Indication: Right knee swelling Study Site: Right knee Equipment: [employer] Findings: ?Orthogonal views of the suprapatellar right knee was obtained Compressible fluid was noted in the suprapatellar pouch Procedure: ?After obtaining informed consent for an ultrasound-guided aspiration and glucocorticoid injection of the right knee, the suprapatellar synovial pouch was imaged with ultrasound and revealed moderate compressible effusion. ?The lateral knee was sterilely prepped with chlorhexidine and anesthetized with lidocaine spray. ?A 22 gauge 1.5 in needle was advanced into the synovial cavity under direct ultrasound visualization using in plane technique. ?25 cc of clear fluid was aspirated and 40 mg of kenalog was injected through the same needle. ?The procedure was well tolerated. Impressions: ?No specific findings to suggest crystal related arthritis. Successful aspiration and injection of the right knee using ultrasound guidance Primary Site: right knee Prep: site was prepped using aseptic technique and ethochloride spray was applied Injected: 40 mg of, Kenalog, with 1 mL of and 1% plain lidocaine Approach Used: other Procedure: The patient tolerated the procedure well Coding - Glenohumeral with ultrasound guidance Procedure code (CPT) selection complete Office Meds lidocaine (PF) 10 mg/mL (1 %) injection solution Performing Provider: Lynda Iyer MD Performing Location: [facility] Administered by: Dmitriy Goodwin RN on 03/27/25 15:23 Dose Route Admin Location Dispensed Lot Number Expiration Date [facility] [employer]ic 1 mL Infiltration right knee 2 mL [id number] 09/09/26 31336-955-11 FR [employer]ABI Total Dispensed Waste 2 mL 50 % Kenalog 40 mg/mL suspension for injection Performing Provider: Lynda Iyer MD Performing Location: [facility] Administered by: Dmitriy Goodwin RN on 03/27/25 15:23 Dose Route Admin Location Dispensed Lot Number Expiration Date [facility] [employer] Mechanic 40 mg intra-articular right knee 1 mL [id number] 11/08/25 [address]- 1 LONG [employer]PER [employer] Total Dispensed Waste 1 mL 0 % Results Reviewed Results Reviewed: Laboratory Tests 11/27/24 01/22/25 11:52 10:32 WBC 9.0 RBC 4.91 Hgb 12.5 L Hct 41.0 L Plt Count 346 ESR 25 H Sodium 142 Potassium 4.2 Chloride 108 Carbon Dioxide 24 BUN 18 H Creatinine 1.35 AST 23 ALT 28 C-Reactive Protein 3.26 H Laboratory Tests 10/22/22 12:56 Rheumatoid Factor < 13.0 Cycl Citrul Peptide IgG <16 ELIZABETH Screen POSITIVE A ELIZABETH Titer 1:80 H Proteinase 3 (PR3) Ab <1.0 Myeloperoxidase Ab <1.0 SS-A/Ro Antibody >8.0 POS A HLA-B27 Negative Assessment & Plan Assessment & Plan (1) Rheumatoid arthritis: Comment: Ddx 1990s Treated with Enbrel for 15 years Changed to infliximab and prednisone at the onset of leg wounds with good response Switched to Kevzara 2021 due to breakthrough synovitis with good response initially Changed to Rinvoq without significant improvement in wounds Subsequently failed Humira, MMF for his wounds Code(s): M06.9 - Rheumatoid arthritis, unspecified Category: Medical Qualifiers: Rheumatoid arthritis location: multiple sites Rheumatoid factor presence: without rheumatoid factor Qualified Code(s): M06.09 - Rheumatoid arth ritis without rheumatoid factor, multiple sites Plan: #Seronegative RA/Sjogrens overlap Patient is a 79-year-old male with seronegative rheumatoid arthritis/Sjogren's overlap here today for follow up. His autoimmune history is also complicated by pyoderma gangrenosum. With respect to his inflammatory arthritis his joints are under control with no evidence of active synovitis at this time. His significantly elevated inflammatory markers are likely secondary to his large wound on his left lower extremity. Discussed starting immunosuppression but patient deferred at this time Plan - Continue to monitor off immunosuppression - Prednisone 5mg as per derm - Consider Anakinra - RTC 4 months - Labs before visit: CBC, CMP, ESR, CRP, Hepatitis panel and T spot Torrie Rome, Melina Rome, Chery Lopez, Vasu Villareal, Coco Brandon. Anakinra for recalcitrant pyoderma gangrenosum. Clin Exp Dermatol. 2020;46(8):5454-7137. doi: 10.1111/figueroa.44075. Epub 2020Feb 26. PMID: [id number]. (2) Peripheral neuropathy: Code(s): G62.9 - Polyneuropathy, unspecified Category: Medical Qualifiers: Peripheral neuropathy type: polyneuropathy, unspecified Qualified Code(s): G62.9 - Polyneuropathy, unspecified Plan: #Neuropathy Neuropathy of bilateral lower extremities. Not responsive to gabapentin We will try alpha lipoic acid Plan - Alpha lipoic acid 600mg daily (3) Pyoderma gangrenosum: Code(s): L88 - Pyoderma gangrenosum Category: Medical Plan: #Pyoderma gangrenosum This is a 78-year-old male originally from [place], moved to [place] with past medical history of seronegative RA/Sjogren's (dry mouth +++Ro) diagnosed in the treated with Enbrel for at least 15 years years. Patient had right lower extremity wounds which were treated with Renflexis & prednisone with good results however he was having recurrent knee swelling. He was switched to Kevzara early 2021 with some improvement. Patient developed left lower extremity pyoderma gangrenosum. This started around June 2021. 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 He is currently on warfarin now switched to rivaroxaban by substation electrician supervisor. This was discontinued months ago. Patient was started on Rinvoq by his instrument operator Dr. Omar Cantor in [place], with little improvement, then dose was increased from 15 mg daily to 30 mg daily for a few months without significant improvement. A steroid tapering course was prescribed 10 months ago which provided temporary improvement. Patient took 3 doses of Renflexis and it was discontinued due to a reaction with joint pain. He was then started on Humira, he took Humira 40 mg every other week then advanced to 40 mg weekly without improvement. He then failed CellCept. CellCept was discontinued. 04/2024 patient was admitted with COPD exacerbation and received IV steroids with improvement of his pyoderma gangrenosum wounds, he was advised by his instrument operator to continue with steroids, his steroids are being tapered, per once the dose was lowered to 10 mg a day he stopped getting any improvement. Plan - Continue derm follow up Plan I spent 30 minutes reviewing the record and labs, taking a history, examining the patient, discussing the treatment plan, ordering diagnostic work up, and documenting in the medical record Orders: Orders AMB Joint Injection/Aspiration Today M17.11 - Unilateral primary osteoarthritis, right knee Cell Ct wDiff Synovial Fl Today M25.461 - Effusion, right knee Synov Fld Cult + Crystals Today M25.461 - Effusion, right knee Coding Level of Care Code Est Pt Level 4 (38818) Complex EM visit Add On G2211 Diagnoses Rheumatoid arthritis of multiple sites with negative rheumatoid factor M06.09 Rheumatoid arthritis location: multiple sites Rheumatoid factor presence: without rheumatoid factor Peripheral polyneuropathy G62.9 Peripheral neuropathy type: polyneuropathy, unspecified Pyoderma gangrenosum L88 CPT Codes Coding - Joint 8: 64342 - Glenohumeral with ultrasound guidance ([id number])
[2025-03-27 12:55] VITALS: BP 122/72; PULSE 77; O2SAT 92; BMI 30.3
--- OUTSIDE RECORDS SUMMARY | 2025-03-27 16:42 | XMS_ITS | Patient Health Record ---
Author Organization [facility] Address [address] [place] [id number] Care Team Providers Care Can Maker Name Role Phone Lalitha MORALES, William Primary Care Provider Kong Nava Unavailable [phone] Arnav Limon Unavailable Unavailable Allergies No Known Allergies Reason For Referral No Information Medications Medication SIG (Take, Route, Frequency, Duration) Notes Start Date End Date Status Enbrel SureClick 50 MG/ML Subcutaneous Active Problems Problem Type SNOMED Code ICD Code Onset Dates Problem Status W/U Status Risk Notes Problem Skin ulcer of calf (178758690) Ulcer (skin exp) LEFT CALF (L97.221) Active confirmed Problem Varicose veins of lower extremity (86683168) Vikash Insuf (other compl) LEFT (I83.892) Active confirmed Problem Vikash Insuf (ulcer) LEFT CALF (I83.022) Active confirmed Plan Of Treatment No Information Insurance Providers Payer Name Payer Address Payer Phone Subscriber Number Group Number Insured Name Patient Relationship to Insured Coverage Start Date Coverage End Date [employer] Blue [address] [place] [address] [id number] Sarath Gipson Self - patient is the insured [employer] PPO,EPO & Medigap [address] [place] [address] [id number] Farideh Gipson Spouse - patient is the spouse of the insured [employer] [address] [place] [id number] Sarath Gipson Self - patient is the insured 8
--- OUTSIDE RECORDS SUMMARY | 2025-03-27 16:42 | XMS_ITS | Clinical Summary ---
Author Organization [facility] Facility Address [address] [place] [address] Care Team Providers Care Software Educator Name Role Phone Kia Stroud MD Primary Care Provider [phone] Social History Tobacco Use Types Packs/Day Years [...] Insurance [employer] Medicare Aena Medicare Care Teams Software Educator Relationship Specialty Start Date End Date Kia Stroud MD [facility] [address] [place], [place] PCP - General Internal Medicine 12/04/21
--- OUTSIDE RECORDS SUMMARY | 2025-03-27 16:42 | XMS_ITS | Clinical Summary ---
Author Organization [facility] Address [address] [place] [id number] Phone Care Team Providers Care Audit Partner Name Role Phone Kia Stroud MD Primary Care Provider [phone] Allergies No known active allergies Medications umeclidinium-vi [...] Noted Date Diagnosed Date Rheumatoid arthritis of [facility] sites with negative rheumatoid factor 12/14/2021 Overview [...] off Inflixamab. He is being followed by [facility] and receiving a prednisone [...] off Inflixamab. He is being followed by [facility] and receiving a prednisone taper, current dose 10 mg/day. Recent admission for cellulitis /wound infection of LE requiring Surgery,c/b DVT, PE,cardiac arrest now on coumadin. Followed by [facility] for significant skin ulceration -Will need to hold any biologic treatment until wounds healed. RA does not appear active currently on pred 10 mg -Will need derm involved for LE ulcers, ? PG- appointment scheduled with television director in [place] in near future -Unclear if he has [...] off Inflixamab. He is being followed by [facility] and receiving a prednisone taper, current dose [...] now on prednisone taper , followed by [facility] Would recommend dermatology involvement Consider [facility] derm/rheum clinic Assessment & Plan (12/15/2021 12:00 AM EDT): Long hx of bilateral LE wounds Treated in past for venous stasis with minimal improvement Most recent pathology ? Venous stasis vs PG Resolution of ulcerations on Inflixamab supports the diagnosis of PG Off Inflixamab since 07/01 with recurrent ulcerations, now on prednisone taper , followed by [facility] Would recommend dermatology involvement Consider [facility] derm/rheum clinic Venous insufficiency 09/30/2021 Smoking history [...] EDT) SODIUM 143 133 - 146 mmol/L [facility] POTASSIUM 4.7 3.3 - 5.1 mmol/L [facility] CHLORIDE 105 96 - 108 mmol/L [facility] CO2 27 21 - 35 mmol/L [facility] BUN 43(H) 6 - 19 mg/dL [facility] CREATININE 0.80 0.5 - 1.5 mg/dL [facility] GLUCOSE 90 70 - 99 mg/dL [facility] ALBUMIN 3.5(L) 3.9 - 4.8 g/dL [facility] TOTAL PROTEIN 6.2(L) 6.5 - 8.0 g/dL [facility] CALCIUM 9.5 8.4 - 10.3 mg/dL [facility] ALKALINE PHOSPHATASE 72 39 - 117 U/L [facility] TOTAL BILIRUBIN <0.2 0.0 - 1.2 mg/dL [facility] AST 18 0 - 37 U/L [facility] ALT 34 0 - 40 U/L [facility] GLOBULIN 2.7 1 - 4.8 g/dL [facility] EGFR 92 >59 mL/min/1.7 3m2 [facility] Comment:Estimated glomerular filtration rate calculated using the CKD-EPI refit equation. ANION GAP 16 10 - 20 mmol/L [facility] Blood 02/13/2022 10:3 0 AM EDT 02/13/2022 11:28 PM EDT us Alesia Cornejo MD LAB BLOOD ORDERABLES Final Res ult [facility] [address] [place] [address] from Last 3 Months or Most Recently Relevant to Health Maintenance Insurance [employer] O MEDICARE REPLACEMENT AETNA O MEDICARE REPLACEMENT AETNA PPO MEDICARE REPLACEMENT AETNA O MEDICARE REPLACEMENT AETNA O MEDICARE REPLACEMENT AETNA O MEDICARE REPLACEMENT AETNA O MEDICARE REPLACEMENT AETNA PPO MEDICARE REPLACEMENT AETNA PPO MEDICARE REPLACEMENT Care Teams Audit Partner Relationship Specialty Start Date End Date Kia Stroud MD [address] [place] [id number] PCP - General Internal Medicine 02/25/22 Additional Source Comments The information contained in this document represents components of the legal health record. It is not the complete legal health record.[facility]
== END 2025-03-27 14:27 | disposition home or self-care (01) ==
LOC: HO.RHES 12:43
PROVIDERS: PCP Internal Medicine; Visit Provider Student in an Organized Health Care Education/Training Program
DX: M06.09 Rheumatoid arthritis without rheumatoid factor, multiple sites (principal); L88 Pyoderma gangrenosum; G62.9 Polyneuropathy, unspecified; M17.11 Unilateral primary osteoarthritis, right knee
CPT/HCPCS: 20611; 99214

== ENCOUNTER 2025-03-27 12:43 | Outpatient (REF) | payer MEDICARE, SELFPAY ==
[2025-03-27 17:34] LABS: MN% 17.1 %; PMN% 82.9 %; RBC Synovial Fluid 0.004 X10*6/uL
[2025-03-27 18:24] LABS: BF Shift QC OK YES; Lymphocytes Synovial Fluid 13 %; Monocytes Synovial Fluid 1 %; Neutrophils Synovial Fluid 86 %; Source Synovial Fluid RIGHT KNEE
== END 2025-03-27 12:44 | disposition home or self-care (01) ==
LOC: HO.LNP 12:43
PROVIDERS: PCP Internal Medicine; Visit Provider Student in an Organized Health Care Education/Training Program
DX: L88 Pyoderma gangrenosum (principal); M06.09 Rheumatoid arthritis without rheumatoid factor, multiple sites; G62.9 Polyneuropathy, unspecified; M17.11 Unilateral primary osteoarthritis, right knee; M25.461 Effusion, right knee
CPT/HCPCS: 20611; 87070; 87073; 87205; 89051; 89060; 99212; J2003; J3301

== ENCOUNTER 2025-03-27 13:52 | Outpatient (REF) | payer MEDICARE, SELFPAY ==
--- OUTSIDE RECORDS SUMMARY | 2025-06-26 18:05 | XMS_ITS | Clinical Summary ---
Author Organization [facility] Address [address] [place] [address] Care Team Providers Care Rejector Name Role Phone Kia Stroud MD Primary [...] by mouth in the morning. 3 Active umeclidinium-vi lanteroL (ANORO ELLIPTA) 62.5-25 mcg/actuation blister with device Inhale 1 puff in the morning. 1 Active multivitamin-mi nerals-lutein (Multivitamin 50 Plus) tablet TAKE EVERY DAY 9 Active ostomy supplies (Skin Prep Wipes) misc 4 Sachets in the morning. 120 each 2 5 Active ammonium lactate (LAC-HYDRIN) 12 % lotion Apply topically as needed for dry skin. 400 g 1 5 05/23/20 26 Active collagenase (SantyL) ointment Apply topically in the morning for 15 days. 90 g 2 5 06/07/20 25 Active Problems No known active problems Encounters Date Type Department Care Team Description 06/15/2025 11:30 AM EST Ancillary Procedure [facility] Department of Vascular Ultrasound Imaging [address] [place] [address] Stacey Espinoza MD Non-pressure chronic ulcer of left lower leg, unspecified ulcer stage (HCC) 06/01/2025 11:30 AM EST Office Visit [facility] [address] [place] [address] Stacey Espinoza MD Non-pressure chronic ulcer of left lower leg, unspecified ulcer stage (HCC) (Primary Dx) 05/23/2025 2:00 PM EST Office Visit [facility] [address] [place] [address] Stacey Espinoza MD Pyoderma gangrenosa (Primary Dx) from Last 3 Months Social History Tobacco Use Types Packs/Day Years Used Date Smoking Tobacco: Former Cigarettes 2 61 S tarted: 1965 Smokeless Tobacco: Never Tobacco Cessation:Counseling Given: Not Answered Alcohol Use Standard Drinks/Week Comments Not Currently [...] suspected to have Coronavirus/COVID-19? No / Unsure 06/15/2025 10:50 AM EST Last Filed Vital Signs Vital Sign Reading Time Taken Comments Blood Pressure 130/80 06/14/2025 11:57 AM EST Pulse 80 06/14/2025 11:57 AM EST Temperature - - Respiratory Rate 18 06/14/2025 11:57 AM EST Oxygen Saturation 99% 06/14/2025 11:57 AM EST Inhaled Oxygen Concentration - - Weight 81.6 kg (180 lb) 05/23/2025 2:32 PM EST Height 167.6 cm (5' 6 ) 05/23/2025 2:32 PM EST Body Mass Index 29.05 05/23/2025 2:32 PM EST Plan of Treatment Upcoming Encounters Date Type Department Care Team (Late st Contact Info) Description 06/29/2025 11:30 AM EST Office Visit [facility] [address] [place] [id number] Health Maintenance Due Date Last Done Comments HIV Screening 1945 Medicare Annual Wellness (AWV) 1945 Hepatitis C Screening 11/06/1963 Zoster Vaccines (1 of 2) 11/06/1995 COVID-19 Vaccine ( season) 2025 06/27/2022, 06/10/2021, 05/11/2021, Additional history exists Influenza Vaccine (#1) 2025 , 04/08/2023, 05/08/2022, Additional history exists DTaP,Tdap,and Td Vaccines (2 - Td or Tdap) 10/21/2033 10/22/2023 Pneumococcal Vaccine, 50+ Years Completed 10/22/2023, 07/12/2017, 08/12/2015 HPV Vaccines Aged Out No longer eligi ble based on patient's age to complete this topic Hepatitis A Vaccines Aged Out No long er eligible based on patient's age to complete this topic Meningococcal Vaccine Aged Out No sadie armando eligible based on patient's age to complete this topic Procedures Procedure Name Priority Date/Time Associated Diagnosis Comments VENOUS DOPPLER LOWER EXTREMITY BILATERAL Routine 06/15/2025 12:23 PM EST Non-pressure chronic ulcer of left lower leg, unspecified ulcer stage (HCC) from Last 3 Months Results * Venous doppler lower extremity bilateral (06/15/2025 12:23 PM EST) Anatomical Region Laterality Modality Vascular, Body, Lower Extremities Bilateral Ultrasound 06/15/2025 11:3 0 AM EST Stacey Espinoza MD CV VASCULAR PROCEDURES Final Res ult from Last 3 Months Insurance AETNA MANAGED MEDICARE PPO [place]ONTE Care Teams Rejector Relationship Specialty Start Date End Date Kia Stroud MD [address] [place] [address] PCP - General Family Medicine 05/08/25
--- OUTSIDE RECORDS SUMMARY | 2025-06-26 18:05 | XMS_ITS | Clinical Summary ---
Author Organization [facility] Address [address] [place] [address] Phone Care Team Providers Care Grain Unloader Machine Name Role Phone Kia Stroud MD Primary Care Provider [phone] Allergies No known active allergies Medications umeclidinium-vi [...] Noted Date Diagnosed Date Rheumatoid arthritis of [facility] sites with negative rheumatoid factor 12/14/2021 Overview [...] off Inflixamab. He is being followed by [facility] and receiving a prednisone [...] off Inflixamab. He is being followed by [facility] and receiving a prednisone [...] LE ulcers, ? PG- appointment scheduled with nursing scheduler in [place] in near future -Unclear if he has [...] off Inflixamab. He is being followed by [facility] [place] and receiving a prednisone taper, current dose [...] [facility] [...] EDT) SODIUM 143 133 - 146 mmol/L [facility] POTASSIUM 4.7 3.3 - 5.1 mmol/L [facility] CHLORIDE 105 96 - 108 mmol/L [facility] CO2 27 21 - 35 mmol/L [facility] BUN 43(H) 6 - 19 mg/dL [facility] CREATININE 0.80 0.5 - 1.5 mg/dL [facility] GLUCOSE 90 70 - 99 mg/dL [facility] ALBUMIN 3.5(L) 3.9 - 4.8 g/dL [facility] TOTAL PROTEIN 6.2(L) 6.5 - 8.0 g/dL [facility] CALCIUM 9.5 8.4 - 10.3 mg/dL [facility] ALKALINE PHOSPHATASE 72 39 - 117 U/L [facility] TOTAL BILIRUBIN <0.2 0.0 - 1.2 mg/dL [facility] AST 18 0 - 37 U/L [facility] ALT 34 0 - 40 U/L [facility] GLOBULIN 2.7 1 - 4.8 g/dL [facility] EGFR 92 >59 mL/min/1.7 3m2 [facility] Comment:Estimated glomerular filtration rate calculated using the CKD-EPI refit equation. ANION GAP 16 10 - 20 mmol/L [facility] Blood 02/13/2022 10:3 0 AM EDT 02/13/2022 11:28 PM EDT us Alesia Cornejo MD LAB BLOOD BKR ORDERABLES Final Result [facility] [address] [place] [address] from Last 3 Months or Most Recently Relevant to Health Maintenance Insurance AETNA PPO MEDICARE REPLACEMENT AETNA PPO MEDICARE REPLACEMENT AETNA O MEDICARE REPLACEMENT AETNA O MEDICARE REPLACEMENT AETNA O MEDICARE REPLACEMENT AETNA O MEDICARE REPLACEMENT AETNA O MEDICARE REPLACEMENT AETNA O MEDICARE REPLACEMENT AETNA PPO MEDICARE REPLACEMENT Care Teams Grain Unloader Machine Relationship Specialty Start Date End Date Kia Stroud MD [address] [place] [phone] PCP - General Internal Medicine 02/25/22 Additional Source Comments The information contained in this document represents components of the legal health record. It is not the complete legal health record.[facility]
--- OUTSIDE RECORDS SUMMARY | 2025-06-26 18:05 | XMS_ITS | Patient Health Record ---
Author Organization [facility] Address [address] [place] [id number] Care Team Providers Care [employer] Manager Name Role Phone Lalitha MORALES, William Primary Care Provider Kong Nava Unavailable [phone] Arnav Limon Unavailable Unavailable Allergies No Known Allergies Reason For Referral No Information Medications Medication SIG (Take, Route, Frequency, Duration) Notes Start Date End Date Status Enbrel SureClick 50 MG/ML Subcutaneous Active Problems Problem Type SNOMED Code ICD Code Onset Dates Problem Status W/U Status Risk Notes Problem Skin ulcer of calf (982685287) Ulcer (skin exp) LEFT CALF (L97.221) Active confirmed Problem Varicose veins of lower extremity (96296703) Vikash Insuf (other compl) LEFT (I83.892) Active confirmed Problem Vikash Insuf (ulcer) LEFT CALF (I83.022) Active confirmed Plan Of Treatment No Information Insurance Providers Payer Name Payer Address Payer Phone Subscriber Number Group Number Insured Name Patient Relationship to Insured Coverage Start Date Coverage End Date [employer] [address] [place] [address] [id number] Sarath Gipson Self - patient is the insured [employer] PPO,EPO & Medigap [address] [place] [address] [id number] Farideh Gipson Spouse - patient is the spouse of the insured [employer] [address] [place] [address] [id number] Sarath Gipson Self - patient is the insured 8
== END 2025-03-27 13:53 | disposition home or self-care (01) ==
LOC: HO.RHESR 13:52
PROVIDERS: Visit Provider Student in an Organized Health Care Education/Training Program
DX: Z13.89 Encounter for screening for other disorder (principal)

== ENCOUNTER 2025-03-30 10:40 | Outpatient (AMB) | payer MEDICARE, SELFPAY ==
--- NOTE | 2025-03-30 10:41 | A.OFFVIS_ITS ---
Vital Signs 3 03/30/25 10:56 Height 5 ft 6 in Weight 186 lb 2 oz BMI 30.0 BP 132/87 Blood Pressure Location Lt brachial Position Sitting Respiration 16 Pulse 71 Pulse Source Pulse Oximeter Pulse Oximetry (%) 97 Oxygen Delivery Method Room Air Intake Visit Reasons: PILL COUNT Intake Note: Elvis comes in today for a pill count to hydromorphone, patient should have 0 tablets and presents with 23 tablets which he last took wednesday03/27/25. Pain today 7.5/10 Railroad Dining Car Stewardess Required: No Accompanied by: Self / Same As Patient Allergies heparin (porcine) Allergy (Severe, Verified 03/30/25 10:57) HIT HPI Comments Details: Patient presents today for a pill count. Patient is supposed to have #0 pills, in his possession has #23 pills. His chronic left non-healing wound requires regular dressing changes, and the patient has been using hydromorphone primarily when attending the wound care center. Patient also has been having increasing right knee pain. The knee pain is located in the anterior and lateral aspects of right knee, where fluid was aspirated and a cortisone injection was administered by Dr. Iyer, a Equipment Application Specialist, on Wednesday. The patient reports that the pain has decreased since the procedure, although it persists at a lower intensity. 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 The patient has been managing this condition with gabapentin, taking 600 mg in the morning and 600 mg at night, but not consistently at midday. The neuropathy pain had increased prior to the knee procedure but has shown slight improvement since then. The patient has a history of emphysema and atelectasis in the left lower lung, which affects his breathing, especially at night. He uses oxygen therapy at home, set at 3 liters, but is advised against using opioids at night due to the risk of respiratory depression. The patient also has a chronic wound, which has shown some improvement but still presents concerns due to a yellow and brown area. Hyperbaric oxygen therapy was discussed as a potential treatment, but cost and insurance coverage are barriers. Patient plans to follow up with Wound care with healing and skin discoloration concerns. Denies any fever, chills, weight loss, bleeding, weakness, dizziness, shortness of breaths, constipation, nausea, sedation, urinary retention or abdominal pain. He continues nighttime oxygen use. 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 Acute pulmonary embolism with acute cor pulmonale Acute pulmonary embolism Cardiac arrest CKD (chronic kidney disease) stage 3, GFR 30-59 ml/min Sjogren's disease Leg pain, bilateral Elevated serum creatinine COPD (chronic obstructive pulmonary disease) HTN (hypertension) Rheumatoid arthritis Chronic ulcer of leg Surgical History History of ankle surgery History of hernia repair History of left knee replacement Family History Sister Breast cancer Father Aneurysm Mother Angina at rest Other No family history of coronary artery disease Social History Household Members: Spouse Housing: House Do you presently have visiting nurse or other home services: No Alcohol intake: current Alcohol intake frequency: holidays/special occasions only Comment: restraints Patient Tobacco Use Status: Former Tobacco user Tobacco use type: Cigarette Cigarette Packs Per Day: 1 Years Smoked: quit + years e-Cigarette/Vaping Use: Never Used Second Hand Smoke Exposure: No Advance Directives Date on File: 12/23/21 service: Yes Current occupational status: retired Cognitive needs: Yes (cane) Hearing needs: No Vision needs: Yes (Pt wear glasses. ) Review of Systems Const All systems reviewed & are unremarkable except as noted in HPI and below Physical Exam General: Appears afebrile. Alert and oriented. Mood and affect appropriate. Follows and participates in conversation appropriately. Respiratory effort is unlabored. No cough. Sitting comfortably in the wheelchair. Left lower leg and right lateral lower leg with dressings, dry and intact. Resp Effort & Inspection: normal respiratory effort, able to speak in complete sentences, no audible wheezes, no cough, respiratory effort not decreased, no respiratory distress, no stridor and no use of accessory muscles Extrem Other: Left leg wound picture updated via patient's iphone. Psych Appearance: grossly normal Mental Status: mental status grossly normal Speech and movement: Normal speech and movement present and Clear speech present Affect: normal affect Attitude: cooperative Thought process: Normal thought process present Thought content: Normal thought content present, suicidality (none), no hallucinations and No Depressive thoughts present Insight: Good insight present (Psych) Judgement: Good judgement present (Psych) Results Reviewed Results Reviewed: Assessment & Plan Assessment & Plan (1) Chronic pain of left lower extremity: Code(s): M79.605 - Pain in left leg; G89.29 - Other chronic pain Category: Medical (2) Peripheral neuropathy: Code(s): G62.9 - Polyneuropathy, unspecified Category: Medical Qualifiers: Peripheral neuropathy type: polyneuropathy, unspecified Qualified Code(s): G62.9 - Polyneuropathy, unspecified (3) Non-healing wound of left lower extremity: Code(s): S81.802A - Unspecified open wound, left lower leg, initial encounter Category: Medical (4) Pyoderma gangrenosum: Code(s): L88 - Pyoderma gangrenosum Category: Medical (5) Chronic, continuous use of opioids: Code(s): F11.90 - Opioid use, unspecified, uncomplicated Category: Medical Plan Patient has shown accountability for his medication regimen and the pill count was accurate. There is no evidence of misuse, abuse or diversion at this time. MassPat reviewed. Will hold off script for hydromorphine 2 mg QD-BID prn due to surplus in pill count today, he takes it for wound care/dressing changes only. Continue duloxetine, gabapentin and Tylenol as needed. For the peripheral neuropathy, the current regimen of gabapentin will be continued, and the addition of alpha-lipoic acid is anticipated once prescribed by Rheumatology. The patient is advised to maintain the current dosing schedule and to report any significant changes in symptoms. For the chronic LLE wound, continued monitoring and wound care are recommended, with consideration of hyperbaric oxygen therapy if feasible. The patient should be vigilant for signs of infection and seek medical attention if the wound condition deteriorates. All questions were answered and the patient is in agreement with the plan. Follow up in 6 weeks for a pill count or sooner if needed. Patient was informed and verbally consented to the use of an ambient scribe for clinic note documentation during this visit. Coding Level of Care Code Est Pt Level 4 (57958) Complex EM visit Add On G2211 Diagnoses Chronic pain of left lower extremity M79.605; G89.29 Peripheral polyneuropathy G62.9 Peripheral neuropathy type: polyneuropathy, unspecified Non-healing wound of left lower extremity S81.802A Pyoderma gangrenosum L88 Chronic, continuous use of opioids F11.90
[2025-03-30 10:56] VITALS: BP 132/87; PULSE 71; RESP 16; O2SAT 97
--- OUTSIDE RECORDS SUMMARY | 2025-03-30 11:18 | XMS_ITS | Clinical Summary ---
Author Organization [facility] Facility Address [address] [address] Care Team Providers Care Instrument Maker Name Role Phone Kia Stroud MD Primary Care Provider [phone] Social History Tobacco Use Types Packs/Day Years [...] Insurance A[employer] Medicare Aena Medicare Care Teams Instrument Maker Relationship Specialty Start Date End Date Kia Stroud MD [facility] [address] [place], [place] PCP - General Internal Medicine 12/04/21
--- OUTSIDE RECORDS SUMMARY | 2025-03-30 11:19 | XMS_ITS | Clinical Summary ---
Author Organization [facility] Address [address] [place] [address] Phone Care Team Providers Care Hand Tool Lapper Name Role Phone Kia Stroud MD Primary Care Provider [phone] Allergies No known active allergies Medications umeclidinium-vi [...] Noted Date Diagnosed Date Rheumatoid arthritis of [facility] with negative rheumatoid factor 12/14/2021 [...] off Inflixamab. He is being followed by [facility] and receiving a prednisone [...] off Inflixamab. He is being followed by [place] [facility] and receiving a prednisone taper, current dose 10 mg/day. Recent admission for cellulitis /wound infection of LE requiring Surgery,c/b DVT, PE,cardiac arrest now on coumadin. [facility] -Will need to hold any biologic treatment until wounds healed. RA does not appear active currently on pred 10 mg -Will need derm involved for LE ulcers, ? PG- appointment scheduled with race engine builder in [place] in near future -Unclear if he has [...] off Inflixamab. He is being followed by [facility] [place] and receiving a prednisone taper, current dose [...] now on prednisone taper , [facility] Would recommend dermatology involvement Consider [facility]/rheum clinic Assessment & Plan (12/15/2021 12:00 AM EDT): Long hx of bilateral LE wounds Treated in past for venous stasis with minimal improvement Most recent pathology ? Venous stasis vs PG Resolution of ulcerations on Inflixamab supports the diagnosis of PG Off Inflixamab since 07/01 with recurrent ulcerations, now on prednisone taper , [facility] Would recommend dermatology involvement Consider [facility] derm/rheum clinic Venous insufficiency 09/30/2021 Smoking history [...] EDT) SODIUM 143 133 - 146 mmol/L [facility] POTASSIUM 4.7 3.3 - 5.1 mmol/L [facility] CHLORIDE 105 96 - 108 mmol/L [facility] CO2 27 21 - 35 mmol/L [facility] BUN 43(H) 6 - 19 mg/dL [facility] CREATININE 0.80 0.5 - 1.5 mg/dL [facility] GLUCOSE 90 70 - 99 mg/dL [facility] ALBUMIN 3.5(L) 3.9 - 4.8 g/dL [facility] TOTAL PROTEIN 6.2(L) 6.5 - 8.0 g/dL [facility] CALCIUM 9.5 8.4 - 10.3 mg/dL [facility] ALKALINE PHOSPHATASE 72 39 - 117 U/L [facility] TOTAL BILIRUBIN <0.2 0.0 - 1.2 mg/dL [facility] AST 18 0 - 37 U/L [facility] ALT 34 0 - 40 U/L [facility] GLOBULIN 2.7 1 - 4.8 g/dL [facility] EGFR 92 >59 mL/min/1.7 3m2 [facility] Comment:Estimated glomerular filtration rate calculated using the CKD-EPI refit equation. ANION GAP 16 10 - 20 mmol/L [facility] Blood 02/13/2022 10:3 0 AM EDT 02/13/2022 11:28 PM EDT us Alesia Cornejo MD LAB BLOOD ORDERABLES Final Res ult [facility] [address] [place] [address] from Last 3 Months or Most Recently Relevant to Health Maintenance Insurance AETNA O MEDICARE REPLACEMENT AETNA O MEDICARE REPLACEMENT AETNA PPO MEDICARE REPLACEMENT AETNA O MEDICARE REPLACEMENT AETNA O MEDICARE REPLACEMENT AETNA O MEDICARE REPLACEMENT AETNA O MEDICARE REPLACEMENT AETNA PPO MEDICARE REPLACEMENT AETNA PPO MEDICARE REPLACEMENT Care Teams Hand Tool Lapper Relationship Specialty Start Date End Date Kia Stroud MD [address] [place] [id number] PCP - General Internal Medicine 02/25/22 Additional Source Comments The information contained in this document represents components of the legal health record. It is not the complete legal health record.[facility]
--- OUTSIDE RECORDS SUMMARY | 2025-03-30 11:19 | XMS_ITS | Patient Health Record ---
Author Organization [facility] Address [address] [place] [id number] Care Team Providers Care Band Booker Name Role Phone Lalitha MORALES, William Primary Care Provider Kong Nava Unavailable [phone] Arnav Limon Unavailable Unavailable Allergies No Known Allergies Reason For Referral No Information Medications Medication SIG (Take, Route, Frequency, Duration) Notes Start Date End Date Status Enbrel SureClick 50 MG/ML Subcutaneous Active Problems Problem Type SNOMED Code ICD Code Onset Dates Problem Status W/U Status Risk Notes Problem Skin ulcer of calf (912654857) Ulcer (skin exp) LEFT CALF (L97.221) Active confirmed Problem Varicose veins of lower extremity (82599097) Vikash Insuf (other compl) LEFT (I83.892) Active confirmed Problem Vikash Insuf (ulcer) LEFT CALF (I83.022) Active confirmed Plan Of Treatment No Information Insurance Providers Payer Name Payer Address Payer Phone Subscriber Number Group Number Insured Name Patient Relationship to Insured Coverage Start Date Coverage End Date [employer] Blue [address] [place] [address] [id number] Sarath Gipson Self - patient is the insured [employer] PPO,EPO & Medigap [address] [place] [address] [id number] Farideh Gipson Spouse - patient is the spouse of the insured [employer] [address] [place] [id number] Sarath Gipson Self - patient is the insured 8
== END 2025-03-30 11:17 | disposition home or self-care (01) ==
LOC: HO.PMC 10:41
PROVIDERS: PCP Internal Medicine; Visit Provider Nurse Practitioner Family
DX: M79.605 Pain in left leg (principal); G89.29 Other chronic pain; G62.9 Polyneuropathy, unspecified; S81.802A Unspecified open wound, left lower leg, initial encounter; L88 Pyoderma gangrenosum; Z79.891 Long term (current) use of opiate analgesic
CPT/HCPCS: 99214; G2211

== ENCOUNTER → 2025-03-30 10:40 | Outpatient (BNVA) | payer MEDICARE, SELFPAY | PROVIDERS: PCP Internal Medicine; Visit Provider Nurse Practitioner Family | DX: M79.605 Pain in left leg (principal); G89.29 Other chronic pain; G62.9 Polyneuropathy, unspecified; S81.802A Unspecified open wound, left lower leg, initial encounter; X58.XXXA Exposure to other specified factors, initial encounter; Y93.9 Activity, unspecified; Y92.9 Unspecified place or not applicable; Y99.9 Unspecified external cause status; L88 Pyoderma gangrenosum; Z51.81 Encounter for therapeutic drug level monitoring; Z79.891 Long term (current) use of opiate analgesic | CPT/HCPCS: 99212 ==

== ENCOUNTER 2025-04-25 14:57 | Outpatient (AMB) | payer MEDICARE, SELFPAY ==
--- NOTE | 2025-04-25 15:00 | A.OFFVIS_ITS ---
Vital Signs 04/25/25 15:10 BMI Reason not done Patient refused/unable Comment pt in wheelchair Intake Visit Reasons: Leg wound Intake Note: Patient presents for leg wound assessment. Pt c/o; no complaints. Mold Shifter Required: No Accompanied by: Spouse Allergies heparin (porcine) Allergy (Severe, Verified 04/25/25 15:11) HIT Medication List - Last Reconciled 04/25/25 by Qamar Cedeno MD acetaminophen (Tylenol Extra Strength) 1,000 mg PO Q6H PRN albuterol sulfate 90 mcg/actuation 2 puffs inhalation Q6H PRN amlodipine 2.5 mg PO DAILY duloxetine 20 mg PO BEDTIME fluticasone propionate 50 mcg/actuation (Flonase Allergy Relief) 2 sprays intranasal DAILY PRN cneplpdeacw-wjguekyjp-tejfugrl 100-62.5-25 mcg (Trelegy Ellipta) 1 inh inhalation DAILY gabapentin 600 mg PO BID 30 days metoprolol succinate ER 50 mg PO DAILY miscellaneous medical supply As directed naloxone 4 mg/actuation (Narcan) 4 mg intranasal Q2M PRN prednisone 5 mg PO DAILY prednisone 5 mg PO HPI HPI Leg wound: Details: He is well known to me for chronic leg ulcers and pain He is actually being followed by the [facility] regularly. However, he was unhappy about the change in staffing at the Wound Clinic so he came to me today to have his wound check on his left leg. This has actually improved significantly since I started taking care of this about over 3 years ago. However, this seemed to have worsened a little bit about a month ago although this seems to have improved again since that time. He describes neuropathic pain as well as the entire left leg. His usually changes his dressings at home. [facility] Medical History MDD (major depressive disorder), single episode Pressure injury of buttock, stage 1 Deep vein thrombosis 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 Acute pulmonary embolism with acute cor pulmonale Acute pulmonary embolism Cardiac arrest CKD (chronic kidney disease) stage 3, GFR 30-59 ml/min Sjogren's disease Leg pain, bilateral Elevated serum creatinine COPD (chronic obstructive pulmonary disease) HTN (hypertension) Rheumatoid arthritis Chronic ulcer of leg Surgical History History of ankle surgery History of hernia repair History of left knee replacement Family History Sister Breast cancer Father Aneurysm Mother Angina at rest Other No family history of coronary artery disease Social History Household Members: Spouse Housing: House Do you presently have visiting nurse or other home services: No Alcohol intake: current Alcohol intake frequency: holidays/special occasions only Comment: restraints Patient Tobacco Use Status: Former Tobacco user Tobacco use type: Cigarette Cigarette Packs Per Day: 1 Years Smoked: quit + years e-Cigarette/Vaping Use: Never Used Second Hand Smoke Exposure: No Advance Directives Date on File: 12/23/21 service: Yes Current occupational status: retired Cognitive needs: Yes (cane) Hearing needs: No Vision needs: Yes (Pt wear glasses. ) Review of Systems Const Denies chills and Denies fever(s) Physical Exam Const Other: On wheelchair but able to stand up transfer General: comfortable and no acute distress Resp Effort & Inspection: normal respiratory effort Cardio Rate: regular rate GI Palpation (GI): Soft to palpation Extrem Other: Left leg ulcer laterally, about 4 cm x 10 cm, clean, no undermining, no necrotic tissue, note of significant scars all over the left leg from previous ulcers posteriorly and medially Assessment & Plan Assessment & Plan (1) Chronic ulcer of leg: Code(s): L97.909 - Non-pressure chronic ulcer of unspecified part of unspecified lower leg with unspecified severity Category: Medical Plan: He has this 10 x 7 cm ulcer but this looks clean. This has actually much improved compared to when I 1st started seeing him a few years ago I changed his dressings and used calcium genetic as well as a non adherent dressing. I wrapped the leg with Issac roll I would continue with the same wound care for now. I would not recommend debriding this as he has had problems with debridement in the past with poor healing I can see me in the office on a p.r.n. basis. They said they will continue to follow up with the Wound Clinic. Coding Level of Care Code Est Pt Level 3 (94763) Diagnoses Chronic ulcer of leg L97.909
--- OUTSIDE RECORDS SUMMARY | 2025-04-25 18:39 | XMS_ITS | Patient Health Record ---
Author Organization [facility] Address [address] [place] [phone] Care Team Providers Care Basting Cleaner Name Role Phone Lalitha MORALES, William Primary Care Provider Kong Nava Unavailable [phone] Arnav Limon Unavailable Unavailable Allergies No Known Allergies Reason For Referral No Information Medications Medication SIG (Take, Route, Frequency, Duration) Notes Start Date End Date Status Enbrel SureClick 50 MG/ML Subcutaneous Active Problems Problem Type SNOMED Code ICD Code Onset Dates Problem Status W/U Status Risk Notes Problem Skin ulcer of calf (336167413) Ulcer (skin exp) LEFT CALF (L97.221) Active confirmed Problem Varicose veins of lower extremity (92580498) Vikash Insuf (other compl) LEFT (I83.892) Active confirmed Problem Vikash Insuf (ulcer) LEFT CALF (I83.022) Active confirmed Plan Of Treatment No Information Insurance Providers Payer Name Payer Address Payer Phone Subscriber Number Group Number Insured Name Patient Relationship to Insured Coverage Start Date Coverage End Date [employer] Blue [address] [place] [address] [id number] Sarath Gipson Self - patient is the insured [employer] [facility] PPO,EPO & Medigap [address] [place] [address] [id number] Farideh Gipson Spouse - patient is the spouse of the insured [employer] [address] [place] [address] [id number] Sarath Gipson Self - patient is the insured 8
--- OUTSIDE RECORDS SUMMARY | 2025-04-25 18:39 | XMS_ITS | Clinical Summary ---
Author Organization [facility] Address [address] [place] [address] Phone Care Team Providers Care Personal Lines Underwriter Name Role Phone Kia Stroud MD Primary Care Provider [phone] Allergies No known active allergies Medications umeclidinium-vi [...] Noted Date Diagnosed Date Rheumatoid arthritis of [facility] with negative rheumatoid factor 12/14/2021 [...] off Inflixamab. He is being followed by [facility] and receiving a prednisone [...] off Inflixamab. He is being followed by [facility] and receiving a prednisone taper, current dose 10 mg/day. Recent admission for cellulitis /wound infection of LE requiring Surgery,c/b DVT, PE,cardiac arrest now on coumadin. Followed by [facility] for significant skin ulceration -Will need to hold any biologic treatment until wounds healed. RA does not appear active currently on pred 10 mg -Will need derm involved for LE ulcers, ? PG- appointment scheduled with scale mechanic in [place] in near future -Unclear if he has [...] off Inflixamab. He is being followed by [facility] [place] and receiving a prednisone taper, current dose [...] now on prednisone taper , followed by [facility] Would recommend dermatology involvement Consider [facility] derm/rheum clinic Assessment & Plan (12/15/2021 12:00 AM EDT): Long hx of bilateral LE wounds Treated in past for venous stasis with minimal improvement Most recent pathology ? Venous stasis vs PG Resolution of ulcerations on Inflixamab supports the diagnosis of PG Off Inflixamab since 07/01 with recurrent ulcerations, now on prednisone taper , followed by [facility] Would recommend dermatology involvement Consider [facility] derm/rheum clinic Venous insufficiency 09/30/2021 [...] EDT) SODIUM 143 133 - 146 mmol/L [facility] POTASSIUM 4.7 3.3 - 5.1 mmol/L [facility] CHLORIDE 105 96 - 108 mmol/L [facility] CO2 27 21 - 35 mmol/L [facility] BUN 43(H) 6 - 19 mg/dL [facility] CREATININE 0.80 0.5 - 1.5 mg/dL [facility] GLUCOSE 90 70 - 99 mg/dL [facility] ALBUMIN 3.5(L) 3.9 - 4.8 g/dL [facility] TOTAL PROTEIN 6.2(L) 6.5 - 8.0 g/dL [facility] CALCIUM 9.5 8.4 - 10.3 mg/dL [facility] ALKALINE PHOSPHATASE 72 39 - 117 U/L [facility] TOTAL BILIRUBIN <0.2 0.0 - 1.2 mg/dL [facility] AST 18 0 - 37 U/L [facility] ALT 34 0 - 40 U/L [facility] GLOBULIN 2.7 1 - 4.8 g/dL [facility] EGFR 92 >59 mL/min/1.7 3m2 [facility] Comment:Estimated glomerular filtration rate calculated using the CKD-EPI refit equation. ANION GAP 16 10 - 20 mmol/L [facility] Blood 02/13/2022 10:3 0 AM EDT 02/13/2022 11:28 PM EDT us Alesia Cornejo MD LAB BLOOD ORDERABLES Final Res ult [facility] [address] [place] [address] from Last 3 Months or Most Recently Relevant to Health Maintenance Insurance AETNA O MEDICARE REPLACEMENT AETNA O MEDICARE REPLACEMENT AETNA PPO MEDICARE REPLACEMENT AETNA O MEDICARE REPLACEMENT AETNA O MEDICARE REPLACEMENT AETNA O MEDICARE REPLACEMENT AETNA O MEDICARE REPLACEMENT AETNA PPO MEDICARE REPLACEMENT AETNA PPO MEDICARE REPLACEMENT Care Teams Personal Lines Underwriter Relationship Specialty Start Date End Date Kia Stroud MD [address] [place] [phone] PCP - General Internal Medicine 02/25/22 Additional Source Comments The information contained in this document represents components of the legal health record. It is not the complete legal health record.[facility]
== END 2025-04-25 15:35 | disposition home or self-care (01) ==
LOC: HO.HGS 14:57
PROVIDERS: PCP Internal Medicine; Visit Provider Surgery
DX: L97.909 Non-pressure chronic ulcer of unspecified part of unspecified lower leg with unspecified severity (principal)
CPT/HCPCS: 99213

== ENCOUNTER → 2025-04-25 14:57 | Outpatient (BNVA) | payer MEDICARE, SELFPAY | PROVIDERS: PCP Internal Medicine; Visit Provider Surgery | DX: Z09 Encounter for follow-up examination after completed treatment for conditions other than malignant neoplasm (principal); L97.829 Non-pressure chronic ulcer of other part of left lower leg with unspecified severity | CPT/HCPCS: 99212 ==

== ENCOUNTER 2025-05-03 14:00 | Outpatient (RCR) | payer MEDICARE, OTHER, SELFPAY ==
--- NOTE | ~2025-05-03 | XR_ITS ---
EXAMINATION: XR ANKLE, LEFT XR FOOT, LEFT CLINICAL INFORMATION: Healing wound. Neuropathic change. COMPARISON: Left foot CT dated 12/22/2021. TECHNIQUE: AP, mortise, and lateral views of the left ankle. AP, oblique, and lateral views of the left foot. FINDINGS: LEFT ANKLE: No acute fracture or dislocation. Ankle mortise is maintained. Tibiotalar joint space narrowing with small marginal osteophytes, unchanged. No new lytic or blastic osseous lesion. Circumferential soft tissue swelling. LEFT FOOT: No acute fracture or dislocation. Joint space narrowing with prominent marginal osteophytes at the talonavicular joint as well as scattered throughout the midfoot, similar when compared to the prior CT. Degenerative cystic change within the anterior process of the calcaneus. No new lytic or blastic osseous lesion. Circumferential soft tissue swelling. 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 Cystic change redemonstrated within the calcaneus. No significant interval change. Circumferential soft tissue swelling.
--- NOTE | ~2025-05-03 | XR_ITS ---
EXAMINATION: XR ANKLE, LEFT XR FOOT, LEFT CLINICAL INFORMATION: Healing wound. Neuropathic change. COMPARISON: Left foot CT dated 12/22/2021. TECHNIQUE: AP, mortise, and lateral views of the left ankle. AP, oblique, and lateral views of the left foot. FINDINGS: LEFT ANKLE: No acute fracture or dislocation. Ankle mortise is maintained. Tibiotalar joint space narrowing with small marginal osteophytes, unchanged. No new lytic or blastic osseous lesion. Circumferential soft tissue swelling. LEFT FOOT: No acute fracture or dislocation. Joint space narrowing with prominent marginal osteophytes at the talonavicular joint as well as scattered throughout the midfoot, similar when compared to the prior CT. Degenerative cystic change within the anterior process of the calcaneus. No new lytic or blastic osseous lesion. Circumferential soft tissue swelling. 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 Cystic change redemonstrated within the calcaneus. No significant interval change. Circumferential soft tissue swelling.
== END 2025-07-09 16:14 | disposition home or self-care (01) ==
LOC: HO.WCC 14:00
PROVIDERS: PCP Internal Medicine; Visit Provider Surgery Vascular Surgery
DX: L97.822 Non-pressure chronic ulcer of other part of left lower leg with fat layer exposed (principal); L88 Pyoderma gangrenosum; L95.9 Vasculitis limited to the skin, unspecified; M05.8A Other rheumatoid arthritis with rheumatoid factor of other specified site; G90.09 Other idiopathic peripheral autonomic neuropathy; I87.2 Venous insufficiency (chronic) (peripheral); A49.01 Methicillin susceptible Staphylococcus aureus infection, unspecified site; Z79.899 Other long term (current) drug therapy
CPT/HCPCS: 11042; 11045; 15271; 15272; 73600; 73620; 87070; 87073; 87077; 87186; 87205; 97597; 97598; 97602; 99212; 99213; 99214; 99215; Q4158; Q4187

== ENCOUNTER 2025-05-08 13:26 | Outpatient (AMB) | payer MEDICARE, SELFPAY ==
[2025-05-08 13:35] VITALS: BP 114/72; PULSE 88
--- NOTE | 2025-05-08 13:35 | A.OFFVIS_ITS ---
Vital Signs 05/08/25 13:35 Height 5 ft 6 in BP 114/72 Blood Pressure Location Lt brachial Position Sitting Pulse 88 Pulse Source Pulse Oximeter Intake Visit Reasons: 6m follow up Allergies heparin (porcine) Allergy (Severe, Verified 05/08/25 13:38) HIT Medication List - Last Reconciled 05/08/25 by NATTY MendozaC acetaminophen (Tylenol Extra Strength) 1,000 mg PO Q6H PRN albuterol sulfate 90 mcg/actuation 2 puffs inhalation Q6H PRN amlodipine 2.5 mg PO DAILY duloxetine 20 mg PO BEDTIME fluticasone propionate 50 mcg/actuation (Flonase Allergy Relief) 2 sprays intranasal DAILY PRN jfzeufhovoh-svtxmzdrb-vboijbgj 100-62.5-25 mcg (Trelegy Ellipta) 1 inh inhalation DAILY gabapentin 600 mg PO BID 30 days metoprolol succinate ER 50 mg PO DAILY miscellaneous medical supply As directed naloxone 4 mg/actuation (Narcan) 4 mg intranasal Q2M PRN prednisone 5 mg PO HPI HPI 6m follow up: Details: Sarath is a 79-year-old male with past medical history of hypertension, COPD, DVT, HIT, pulmonary embolism with cardiac arrest 01/2022 with episodes of wide complex rhythm at that time which was thought to be SVT with aberrancy, dilated ascending aorta who presents for follow-up. Today he reports he has had issues with his legs since his last visit here in January. He now has a large wound on his left lateral leg and is [facility]. The wound on his right lower leg is nearly healed. 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 He is still mostly sedentary. He uses a wheelchair and is unable to walk because of his wounds. His prior fatigue did improve. He will get some shortness of breath when he tries to pivot and do ADLs. He does wear his nighttime oxygen as directed. He has not had any chest discomfort at rest or with activity. No heart palpitations, lightheadedness, presyncope, syncope. Compliant with all his medications. is present. 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 Acute pulmonary embolism with acute cor pulmonale Acute pulmonary embolism Cardiac arrest CKD (chronic kidney disease) stage 3, GFR 30-59 ml/min Sjogren's disease Leg pain, bilateral Elevated serum creatinine COPD (chronic obstructive pulmonary disease) HTN (hypertension) Rheumatoid arthritis Chronic ulcer of leg Surgical History History of ankle surgery History of hernia repair History of left knee replacement Family History Sister Breast cancer Father Aneurysm Mother Angina at rest Other No family history of coronary artery disease Social History Household Members: Spouse Housing: House Do you presently have visiting nurse or other home services: No Alcohol intake: current Alcohol intake frequency: holidays/special occasions only Comment: restraints Patient Tobacco Use Status: Former Tobacco user Tobacco use type: Cigarette Cigarette Packs Per Day: 1 Years Smoked: quit + years e-Cigarette/Vaping Use: Never Used Second Hand Smoke Exposure: No Advance Directives Date on File: 12/23/21 service: Yes Current occupational status: retired Cognitive needs: Yes (cane) Hearing needs: No Vision needs: Yes (Pt wear glasses. ) Review of Systems Const All systems reviewed & are unremarkable except as noted in HPI and below ENT Denies dizziness Card Denies chest pain, Denies chest pain at rest, Denies chest pain with activity, Denies rapid heart rate, Denies pedal edema, Denies edema, Denies leg edema, Denies lightheadedness, Denies palpitations, Denies dyspnea, Reports dyspnea on exertion and Denies orthopnea Resp Denies cough, Denies dyspnea and Reports dyspnea on exertion GI Denies hematochezia and Denies change in stool character Musc Details: neuropathy left foot. wound on left lateral ankle, healed wound right lasteral ankle. Denies abnormal gait, Reports limited range of motion, Reports muscle cramps, Denies muscle weakness, Denies numbness, Denies radiating pain into limb, Denies stiffness and Denies tingling Neuro Denies abnormal gait, Denies dizziness, Denies numbness and Denies tingling Endo Denies palpitations Physical Exam Const General: cooperative, healthy appearing, comfortable and no acute distress Orientation/consciousness: patient oriented x3 Neck Neck: Yes normal visual inspection and Yes no JVD Resp Effort & Inspection: normal respiratory effort Auscultation: clear to auscultation bilaterally, no crackles, no rales, no rhonchi and no wheezes Cardio Jugular venous distension: no JVD Rate: regular rate Rhythm: regular rhythm Heart sounds: S1 normal heart sound present, S2 normal heart sound present, no murmurs and no rubs Neuro General: patient oriented x3 Extrem Other: dressing to left lower extremity. In wheelchair. General: No calf tenderness Psych Appearance: grossly normal Mental Status: mental status grossly normal Speech and movement: Normal speech and movement present Assessment & Plan Assessment & Plan (1) Acute pulmonary embolism with acute cor pulmonale: Code(s): I26.09 - Other pulmonary embolism with acute cor pulmonale Category: Medical Plan: History of an acute pulmonary embolism with cor pulmonale, cardiac arrest 01/2022. Not seen in our office between that time and 10/2023. No recurrent issues with blood clots, DVT. He is not on anticoagulation. He did have HIT when hospitalized and has seen Hematology, not since 12/2022. Last Echocardiogram done 10/16/2024 shows EF 55%, possible basal inferior lateral hypokinesis, RV size and function normal, ascending aorta 3.8 cm. No signs of heart failure on exam or reports of angina. No med changes made at this time. (2) Cardiac arrest: Code(s): I46.9 - Cardiac arrest, cause unspecified Category: Medical Plan: At time of acute PE. Recent echo shows normal EF and normal RV. It does state possible basal inferior lateral hypokinesis. He has no reports of chest discomfort at rest or with activity. No indication for cardiac stress test at this time. Signs and symptoms of angina reviewed with him. Will update echo prior to his next visit. (3) HTN (hypertension): Code(s): I10 - Essential (primary) hypertension Category: Medical Plan: Blood pressure goal less than 130/80. Currently controlled with med management. Continue metoprolol XL 50 mg daily. Continue amlodipine 2.5 mg daily. Reviewed low-salt diet. (4) SVT (supraventricular tachycardia): Code(s): I47.10 - Supraventricular tachycardia, unspecified Category: Medical Plan: Following PE while still hospitalized he was having runs of wide complex tachycardia which was evaluated by Dr. Carr and felt to be SVT with aberrancy. He was put on metoprolol and remains on it for heart rate and blood pressure control. Holter monitor done on 02/10/2024 for 3 days showed sinus rhythm with heart rates average 71, rare SVE, rare ve with 2 brief runs, 4 beats, no pauses or heart block. Will continue on metoprolol. (5) Ascending aorta dilatation: Comment: October 2023 4.1 Code(s): I77.810 - Thoracic aortic ectasia Category: Medical Plan: Prior echo shows dilated ascending aorta 4.1 cm. More recent echo shows ascending aorta 3.8 cm. Plan Time spent on chart review, documentation, interview and assessment Orders: Orders CA echo transthoracic complete 10/22/25 I10 - Essential (primary) hypertension, I77.810 - Thoracic aortic ectasia Coding Level of Care Code Est Pt Level 3 (22135) Complex EM visit Add On G2211 Diagnoses Acute pulmonary embolism with acute cor pulmonale I26.09 Cardiac arrest I46.9 HTN (hypertension) I10 SVT (supraventricular tachycardia) I47.10 Ascending aorta dilatation I77.810 Time Spent (min) 24
--- OUTSIDE RECORDS SUMMARY | 2025-05-08 17:23 | XMS_ITS | Clinical Summary ---
Author Organization [facility] Address [address] [place] [address] Care Team Providers Care Wild Life Manager Name Role Phone Kia Stroud MD Primary Care Provider [phone] Social History Tobacco Use Types Packs/Day Years Used Date Smoking Tobacco: Never Assessed Sex and Gender Information Value Date Recorded Sex Assigned at Not on file Legal Sex Male 8:59 AM EDT Gender Identity Not on file Sexual Orientation Not on file Plan of Treatment Upcoming Encounters Date Type Department Care Team (Late st Contact Info) Description 05/23/2025 2:00 PM EST Office Visit [facility] Department of Wound Care [address] [place] [address] Insurance [employer] MA[employer]ED MEDICARE PPO Care Teams Wild Life Manager Relationship Specialty Start Date End Date Kia Stroud MD [address] [place] [address] [address] [place] [address] PCP - General Family Medicine 05/08/25
--- OUTSIDE RECORDS SUMMARY | 2025-05-08 17:23 | XMS_ITS | Clinical Summary ---
Author Organization [facility] Facility Address [address] [place] [id number] Care Team Providers Care Supervisor Plastering Name Role Phone Kia Stroud MD Primary Care Provider [phone] Social History Tobacco Use Types Packs/Day Years [...] Insurance [employer] Medicare Aena Medicare Care Teams Supervisor Plastering Relationship Specialty Start Date End Date Kia Stroud MD [facility] [address] [place], [place] PCP - General Internal Medicine 12/04/21
--- OUTSIDE RECORDS SUMMARY | 2025-05-08 17:23 | XMS_ITS | Patient Health Record ---
Author Organization [facility] Address [address] [place] [id number] Care Team Providers Care Green Feed Attendant Name Role Phone Lalitha MORALES, William Primary Care Provider Kong Nava Unavailable [phone] Arnav Limon Unavailable Unavailable Allergies No Known Allergies Reason For Referral No Information Medications Medication SIG (Take, Route, Frequency, Duration) Notes Start Date End Date Status Enbrel SureClick 50 MG/ML Subcutaneous Active Problems Problem Type SNOMED Code ICD Code Onset Dates Problem Status W/U Status Risk Notes Problem Skin ulcer of calf (631339521) Ulcer (skin exp) LEFT CALF (L97.221) Active confirmed Problem Varicose veins of lower extremity (86891220) Vikash Insuf (other compl) LEFT (I83.892) Active confirmed Problem Vikash Insuf (ulcer) LEFT CALF (I83.022) Active confirmed Plan Of Treatment No Information Insurance Providers Payer Name Payer Address Payer Phone Subscriber Number Group Number Insured Name Patient Relationship to Insured Coverage Start Date Coverage End Date [employer] [address] [place] [address] [id number] Sarath Gipson Self - patient is the insured [employer] [facility] P[employer],EPO & Medigap [address] [place] [address] [id number] Farideh Gipson Spouse - patient is the spouse of the insured [employer] [address] [place] [id number] Sarath Gipson Self - patient is the insured 8
== END 2025-05-08 14:03 | disposition home or self-care (01) ==
LOC: HO.HCS 13:28
PROVIDERS: PCP Internal Medicine; Visit Provider Nurse Practitioner Family
DX: I26.09 Other pulmonary embolism with acute cor pulmonale (principal); I46.9 Cardiac arrest, cause unspecified; I10 Essential (primary) hypertension; I47.10 Supraventricular tachycardia, unspecified; I77.810 Thoracic aortic ectasia
CPT/HCPCS: 99213; G2211

== ENCOUNTER → 2025-05-08 13:26 | Outpatient (BNVA) | payer MEDICARE, SELFPAY | PROVIDERS: PCP Internal Medicine; Visit Provider Nurse Practitioner Family | DX: I10 Essential (primary) hypertension (principal); I26.09 Other pulmonary embolism with acute cor pulmonale; I46.9 Cardiac arrest, cause unspecified; I47.10 Supraventricular tachycardia, unspecified; I77.810 Thoracic aortic ectasia | CPT/HCPCS: 99212 ==

== ENCOUNTER 2025-05-12 16:55 | Inpatient (IN) | payer MEDICARE, SELFPAY ==
[2025-05-12] VITALS (12 sets, daily range): BP systolic 104–150; BP diastolic 65–94; PULSE 78–135; RESP 16–35; TEMP 37.1–40.5; O2SAT 86–100; BMI 27.3
--- NOTE | ~2025-05-12 | CT_ITS ---
CLINICAL HISTORY: abd pain CT abdomen and pelvis with contrast Comparison: None provided Findings: Mild centrilobular emphysema. Calcified coronary atherosclerotic disease. Hepatic steatosis. The spleen is homogeneous in attenuation. The gallbladder is within normal limits. The pancreas is homogeneous in attenuation without main pancreatic ductal dilatation. The left and right kidney demonstrate symmetric corticomedullary enhancement. Right renal interpolar region cortical low-attenuation lesion, 1.7 cm; renal cysts. No bowel obstruction, pneumoperitoneum, or pneumatosis. Mild calcified atherosclerotic disease of the abdominal aorta. Moderate calcified atherosclerotic disease abdominal aorta and aortoiliac vessels. The appendix not grossly identified. The prostate is within normal limits. 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 No acute fracture. IMPRESSION: 1. 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 2. Right renal interpolar region cortical low-attenuation lesion, 1.7 cm; renal cyst. 3. Moderate calcified atherosclerotic disease of the abdominal aorta and aortoiliac vessels. 4. Mild centrilobular emphysema. 5. Hepatic steatosis. 6. No acute intraabdominal or pelvic findings. This document has been electronically signed by: Carlos A Prieto MD on 05/17/2025 21:38:56
--- NOTE | ~2025-05-12 | XR_ITS ---
CLINICAL HISTORY: shortness of breath, fever 1 view chest x-ray Comparison: CT/SR - CT CHEST ANGIOGRAPHY WITH IV CONTRAST - 03/22/25 13:59 EDT CR/NJ/SR - XR CHEST 2 VIEWS - 03/19/25 14:45 EDT CR/SR - XR CHEST 1 VIEW - 04/25/24 12:09 EDT Findings: Moderate bibasilar airspace opacity. Normal size heart. No acute fracture. IMPRESSION: Bibasilar pneumonia. Continued plain film follow-up is recommended to ensure resolution, and to exclude underlying neoplasm. This document has been electronically signed by: Kj Camilo MD on 05/12/2025 18:29:30
--- NOTE | ~2025-05-12 | CT_ITS ---
CLINICAL HISTORY: hypoxia CT chest without contrast Comparison: CT/SR - CT CHEST ANGIOGRAPHY WITH IV CONTRAST - 03/22/25 13:59 EDT Findings: Calcified coronary atherosclerotic disease. Hiatal hernia. Centrilobular lucencies predominantly upper lobes. No active pulmonary inflammatory changes. Bibasilar dependent subsegmental atelectasis. Mild calcified atherosclerotic disease of the abdominal aorta. No acute fractures. Mild osteopenia. Diffuse idiopathic skeletal hyperostosis. IMPRESSION: 1. Centrilobular emphysema. 2. Hiatal hernia. 3. Calcified coronary atherosclerotic disease. 4. No acute pulmonary findings. This document has been electronically signed by: Carlos A Prieto MD on 05/17/2025 18:13:00
--- NOTE | 2025-05-12 17:06 | ECG_ITS ---
Test Reason : SOB Blood Pressure : */* mmHG Vent. Rate : 129 BPM Atrial Rate : 129 BPM P-R Int : 154 ms QRS Dur : 74 ms QT Int : 286 ms P-R-T Axes : 23 -19 31 degrees QTcB Int : 418 ms Sinus tachycardia Nonspecific ST abnormality Abnormal ECG When compared with ECG of 25-Apr-2024 12:08, Vent. rate has increased by 43 bpm Nonspecific T wave abnormality no longer evident in Lateral leads Referred By: David Harris Electronically Signed By: SALLIE HURLEY
--- NOTE | 2025-05-12 17:06 | ED.GENADULT ---
HPI - General Adult General Chief complaint: Fever Stated complaint: ?Sepsis, open wounds on leg, Altered, 103 fever Time Seen by Provider: 05/12/25 17:04 History of Present Illness ED Provider: Kimberly PICHARDO narrative: The patient is a 79-year-old male who has a history of COPD. He also has a history of a chronic wound on his left leg. According to the patient's the patient became ill today with worsening shortness of breath, fever, and increasing cough. Ultimately she called an ambulance. Paramedics arrived and found the patient short of breath, wheezing, and confused. They measured a temperature of 101.5 degrees. He was brought to the hospital. Here the patient is awake and seems confused. He is not a very good historian. His says that he seemed fairly well yesterday and that he did all of his usual activities yesterday. The further says that 1 week ago the patient has a flu shot and that the the patient had a fever for a couple of days following the flu shot but that this fever resolved. The patient's says that the the patient has a wound on his left lower leg that has been present for at least 3 years. She says that yesterday the wound ?looked as well as it ever does. ? Related Data Home Medications ?Medication ?Instructions ?Recorded ?Confirmed acetaminophen 500 mg tablet 1,000 mg PO Q6H PRN Pain (Scale 10/30/21 05/08/25 (Tylenol Extra Strength) Score 1-3) albuterol sulfate 90 mcg/actuation 2 puff inhalation Q6H PRN dyspnea 04/25/24 05/08/25 aerosol inhaler fluticasone propionate 50 2 spray intranasal DAILY PRN 04/25/24 05/08/25 mcg/actuation nasal allergies spray,suspension (Flonase Allergy Relief) prednisone 5 mg tablet 5 mg PO 03/30/25 05/08/25 Previous Rx's ?Medication ?Instructions ?Recorded naloxone 4 mg/actuation nasal 4 mg intranasal Q2M PRN opioid 07/20/22 spray (Narcan) overdose #2 ea miscellaneous medical supply #1 ea 08/13/23 gabapentin 600 mg tablet 600 mg PO BID pain 30 days #60 tabs 10/26/24 amlodipine 2.5 mg tablet 2.5 mg PO DAILY #90 tabs 11/03/24 metoprolol succinate 50 mg 50 mg PO DAILY #90 tabs 11/03/24 tablet,extended release 24 hr duloxetine 20 mg capsule,delayed 20 mg PO BEDTIME pain #90 caps 02/26/25 release fluticasone fur. 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 Acute pulmonary embolism with acute cor pulmonale Acute pulmonary embolism Cardiac arrest CKD (chronic kidney disease) stage 3, GFR 30-59 ml/min Sjogren's disease Leg pain, bilateral Elevated serum creatinine COPD (chronic obstructive pulmonary disease) HTN (hypertension) Rheumatoid arthritis Chronic ulcer of leg Surgical History History of ankle surgery History of hernia repair History of left knee replacement Family History Family History Sister Breast cancer Father Aneurysm Mother Angina at rest Other No family history of coronary artery disease Social History Social History Household Members: Spouse Housing: House Do you presently have visiting nurse or other home services: No Alcohol intake: current Alcohol intake frequency: does not drink Comment: restraints Patient Tobacco Use Status: Former Tobacco user Tobacco use type: Cigarette Cigarette Packs Per Day: 1 Years Smoked: quit 2018/ + years Smoked in Last 30 Days: No e-Cigarette/Vaping Use: Never Used Second Hand Smoke Exposure: No Use of substances other than those prescribed or required for medical reasons: No Advance Directives: No Advance Directives Information Provided: Yes Advance Directives Date on File: 12/23/21 Do you have a plan to hurt others: No Plan service: Yes Current occupational status: retired Cognitive needs: Yes (cane) Hearing needs: No Vision needs: Yes (Pt wear glasses. ) Physical Exam ED Vital Signs: Vital Signs - 24 hr 05/12/25 17:12 05/12/25 17:24 05/12/25 17:26 Temperature 104.9 F H Pulse Rate 126 H 129 H Respiratory Rate 35 H 26 H 26 H Blood Pressure 121/94 H Pulse Oximetry 86 L Oxygen Delivery Method Nasal Cannula Oxygen Flow Rate 05/12/25 18:09 05/12/25 18:53 05/12/25 19:07 Temperature 103.2 F H 101.0 F H Pulse Rate 117 H 98 95 Respiratory Rate 22 H 20 24 H Blood Pressure 143/80 H 116/65 112/77 Pulse Oximetry 100 Oxygen Delivery Method BiPAP Oxygen Flow Rate 05/12/25 19:38 05/12/25 20:21 Temperature 100.3 F Pulse Rate 90 95 Respiratory Rate 20 18 Blood Pressure 108/71 112/76 Pulse Oximetry 94 91 L Oxygen Delivery Method Nasal Cannula Nasal Cannula Oxygen Flow Rate 4 2 BMI result Body Mass Index 27.3 Const Other: The patient is a somewhat chronically ill-appearing male who looked quite acutely ill. He looked very short of breath and seemed somewhat confused. HENMT Other: The face is symmetrical. ?Mucous membranes moist. Eyes Other: Pupils are round equal, conjunctivae are clear, extraocular movements intact Neck Neck: Yes normal visual inspection, Yes full ROM, Yes no lymphadenopathy and Yes no JVD Resp Other: There were inspiratory and expiratory wheezes bilaterally and some crackles at the bases. He looked somewhat short of breath and was somewhat tachypneic. Cardio Rate: tachycardic Rhythm: regular rhythm Heart sounds: S1 normal heart sound present and S2 normal heart sound present GI Other: The abdomen was soft and nontender Skin Other: The patient was somewhat diaphoretic. He has a chronic appearing wound on the lateral aspect of his left lower leg near the lateral malleolus. This does not look infected. Neuro Other: The patient was awake but seemed confused. His face was symmetrical. His tone was symmetrical. He did not seem to have any localizing or lateralizing findings but he did seem quite confused. Extrem Other: The patient has a chronic wound on his left lower leg near the lateral malleolus. He is not seem to have any calf swelling or asymmetry. Medications Administered Discontinued Medications Generic Name Dose Route Start Last Admin Trade Name Andreas PRN Reason Stop Dose Admin Piperacillin Sod/Tazobactam 100 mls @ 200 mls/hr 05/12/25 17:10 05/12/25 17:45 Sod 4.5 gm/ Sodium Chloride IV 05/12/25 17:39 Infused ONCE ONE Infusion Vancomycin HCl 2,000 mg in 500 mls @ 250 mls/hr 05/12/25 17:10 05/12/25 19:41 Vancomycin/Ns IV 05/12/25 19:09 Infused ONCE ONE Infusion Acetaminophen 1,000 mg in 100 mls @ 400 mls/hr 05/12/25 17:22 05/12/25 17:44 Ofirmev IV 05/12/25 17:36 Infused ONCE ONE Infusion Sodium Chloride 2,514 mls @ 2,514 mls/hr 05/12/25 17:22 05/12/25 18:51 Ns 30 ml/kg infuse over 1 hr (2514 ml) 05/12/25 18:21 Infused IV Infusion .Q1H STA Levalbuterol HCl 3.75 mg 05/12/25 17:23 05/12/25 17:26 Levalbuterol Hcl 1.25 Mg/3 Ml Vial.Neb INHALE 05/12/25 17:24 3.75 mg ONCE ONE Administration Methylprednisolone Sodium Succinate 60 mg 05/12/25 18:44 05/12/25 18:58 Methylprednisolone Sod Succ 125 Mg/2 Ml Vial IVPUSH 05/12/25 18:45 60 mg ONCE ONE Administration Medical Decision Making Medical Decision Making [facility] Narrative: The patient is a 79-year-old male with a history of COPD who presents with an acute illness that came on over just the last few hours prior to arrival. He was febrile at home, short of breath, and coughing and also somewhat confused. On exam here he seemed confused and was wheezy. He was seen by respiratory therapy who placed him on BiPAP and administered bronchodilator updraft treatments. Additionally a rectal temperature was obtained which was 105. He therefore had blood cultures and other labs sent and he was started on empiric antibiotics with piperacillin/tazobactam and vancomycin. He was also given 30 mL/kilogram of crystalloid fluids. His initial lactate was mildly elevated. His labs were not remarkably deranged. His chest x-ray was read as bilateral lower lobe infiltrates. Because of the patient's hyperpyrexia he was given IV acetaminophen and was also placed on a cooling blanket. The patient responded well to his treatment. He was tachycardic in his tachycardia improved. His fever improved. His mental status improved. We were able to take him off BiPAP and ultimately place him on 5 L of nasal cannula and he was maintaining oxygen saturations above 90%. At that point I felt that he could be admitted to the hospitalist service. Lab Data 05/12/25 17:17 05/12/25 17:17 Labs: Lab Results 05/12/25 05/12/25 05/12/25 Range/Units 17:17 17:23 17:31 WBC 8.1 (4.8-10.8) X10*3/uL RBC 5.41 (4.60-5.80) X10*6/uL Hgb 12.9 L (14.0-18.0) g/dl Hct 43.5 (42.0-52.0) % MCV 80.4 (80.0-98.0) fL MCH 23.8 L (27.0-33.0) pg MCHC 29.7 L (31.0-36.0) g/dl RDW 19.5 H (11.0-16.0) % Plt Count 373 (160-400) X10*3/uL MPV 8.5 L (9.4-12.4) fL Immature Gran % (Auto) 0.9 H (0.0-0.4) % Neut % (Auto) 89.8 H (45-73) % Lymph % (Auto) 6.9 L (20-40) % [place] % (Auto) 1.8 L (2-11) % Eos % (Auto) 0.2 (0-4) % Baso % (Auto) 0.4 (0-2) % Lymph # (Auto) 0.6 L (1.2-4.9) X10*3/uL [place] # (Auto) 0.2 (0.1-1.2) X10*3/uL Eos # (Auto) 0.0 (0.0-0.4) X10*3/uL Baso # (Auto) 0.0 (0.0-0.2) X10*3/uL Abs Immat Gran (auto) 0.07 H (0.00-0.03) X10*3/uL Absolute Neuts (auto) 7.3 (2.0-8.3) x10*3/uL Absolute Nucleated RBC 0.000 (0.0-0.012) X10*3/uL Nucleated RBC % (auto) 0.0 (0.0-0.2) /100WBC PT 13.8 H (10.9-12.4) SEC INR 1.2 H (0.9-1.1) VBG pH 7.44 H (7.32-7.43) VBG pCO2 36 mmHg VBG pO2 70 mmHg VBG HCO3 25 (22-26) mmol/L VBG O2 Saturation 92.0 % VBG Base Excess 1.5 mmol/L Sodium 143 (135-145) mmol/L Potassium 5.1 D (3.3-5.1) mmol/L Chloride 108 (96-108) mmol/L Carbon Dioxide 22 (22-29) mmol/L Anion Gap 18 (12-20) BUN 19 H (9-16) mg/dL Creatinine 1.39 (0.5-1.4) mg/dL Estim Creat Clear Calc 43.0 Estimated GFR 49 Random Glucose 116 H (60-115) mg/dL Lactic Acid 2.4 H* (0.5-2.0) mmol/L Lactic Acid F/U @ 2Hr (0.5-2.0) mmol/L Calcium 9.5 (8.4-10.2) mg/dL Magnesium 1.8 (1.6-2.6) mg/dL Total Bilirubin 0.5 (0.0-1.0) mg/dL Direct Bilirubin 0.3 (0.0-0.5) mg/dL AST 40 H (5-37) U/L ALT 92 H (0-40) U/L Alkaline Phosphatase 115 (39-117) U/L Troponin I High Sens 2.7 D (<3.5-35.0) ng/L C-Reactive Protein 10.07 H (< or = 0.50) mg/dL NT-Pro-B Natriuret Pep 565.1 H (<300) pg/mL Total Protein 7.4 (6.5-8.0) g/dL Albumin 4.0 (3.5-5.0) g/dL Ethyl Alcohol < 10 mg/dL COVID-19 (MICHOACANO) Negative (Negative) COVID-19 Clin Com See Note Influenza Type A (DAVID) Negative (Negative) Influenza Type B (DAVID) Negative (Negative) Influenza A & B Note See Note 05/12/25 Range/Units 19:40 WBC (4.8-10.8) X10*3/uL RBC (4.60-5.80) X10*6/uL Hgb (14.0-18.0) g/dl Hct (42.0-52.0) % MCV (80.0-98.0) fL MCH (27.0-33.0) pg MCHC (31.0-36.0) g/dl RDW (11.0-16.0) % Plt Count (160-400) X10*3/uL MPV (9.4-12.4) fL Immature Gran % (Auto) (0.0-0.4) % Neut % (Auto) (45-73) % Lymph % (Auto) (20-40) % [place] % (Auto) (2-11) % Eos % (Auto) (0-4) % Baso % (Auto) (0-2) % Lymph # (Auto) (1.2-4.9) X10*3/uL [place] # (Auto) (0.1-1.2) X10*3/uL Eos # (Auto) (0.0-0.4) X10*3/uL Baso # (Auto) (0.0-0.2) X10*3/uL Abs Immat Gran (auto) (0.00-0.03) X10*3/uL Absolute Neuts (auto) (2.0-8.3) x10*3/uL Absolute Nucleated RBC (0.0-0.012) X10*3/uL Nucleated RBC % (auto) (0.0-0.2) /100WBC PT (10.9-12.4) SEC INR (0.9-1.1) VBG pH (7.32-7.43) VBG pCO2 mmHg VBG pO2 mmHg VBG HCO3 (22-26) mmol/L VBG O2 Saturation % VBG Base Excess mmol/L Sodium (135-145) mmol/L Potassium (3.3-5.1) mmol/L Chloride (96-108) mmol/L Carbon Dioxide (22-29) mmol/L Anion Gap (12-20) BUN (9-16) mg/dL Creatinine (0.5-1.4) mg/dL Estim Creat Clear Calc Estimated GFR Random Glucose (60-115) mg/dL Lactic Acid (0.5-2.0) mmol/L Lactic Acid F/U @ 2Hr 3.1 H* (0.5-2.0) mmol/L Calcium (8.4-10.2) mg/dL Magnesium (1.6-2.6) mg/dL Total Bilirubin (0.0-1.0) mg/dL Direct Bilirubin (0.0-0.5) mg/dL AST (5-37) U/L ALT (0-40) U/L Alkaline Phosphatase (39-117) U/L Troponin I High Sens (<3.5-35.0) ng/L C-Reactive Protein (< or = 0.50) mg/dL NT-Pro-B Natriuret Pep (<300) pg/mL Total Protein (6.5-8.0) g/dL Albumin (3.5-5.0) g/dL Ethyl Alcohol mg/dL COVID-19 (MICHOACANO) (Negative) COVID-19 Clin Com Influenza Type A (DAVID) (Negative) Influenza Type B (DAVID) (Negative) Influenza A & B Note Critical Care Time Critical Care Time Critical Care Time: Yes Total Critical Care Time: 35 Attestation: The patient was critically ill with a high probability of imminent or life-threatening deterioration. ?I spent greater than 30 minutes of discontinuous time evaluating the patient, delivering critical care at the bedside, discussing evaluating data with consultants. ?Critical care time does not include time spent performing separately billable procedures or teaching. ?Time spent performing critical care with 35 minutes. Discharge Plan Discharge Clinical Impression: Pneumonia Patient Disposition: Admitted As Inpatient
[2025-05-12] MEDS: SODIUM CHLORIDE 2514 ML IV (17:25)
[2025-05-12 17:26] LABS: MANUAL DIFF FLAG NO
[2025-05-12 17:27] LABS: Venous Blood Gas Refer to POC result
[2025-05-12 17:27] LABS: VBG HCO3 25 mmol/L (22-26); VBG O2 % Saturation 92.0 %
[2025-05-12 17:28] LABS: Hematocrit 43.5 % (42.0-52.0); Hemoglobin 12.9 g/dl (14.0-18.0); Imm Gran Abs Auto 0.07 X10*3/uL (0.00-0.03); Imm Gran Pct Auto 0.9 % (0.0-0.4); Lymphocytes Absolute Auto 0.6 X10*3/uL (1.2-4.9); Mean Corpuscular HGB Conc 29.7 g/dl (31.0-36.0); Mean Corpuscular Hemoglobin 23.8 pg (27.0-33.0); Mean Corpuscular Volume 80.4 fL (80.0-98.0); NRBC Abs Auto 0.000 X10*3/uL (0.0-0.012); NRBC Pct Auto 0.0 /100WBC (0.0-0.2); Platelet Count 373 X10*3/uL (160-400); Red Blood Count 5.41 X10*6/uL (4.60-5.80); White Blood Count 8.1 X10*3/uL (4.8-10.8)
[2025-05-12 17:35] LABS: INTERNATIONAL NORM RATIO 1.2 (0.9-1.1); Prothrombin Time 13.8 SEC (10.9-12.4)
[2025-05-12] MEDS: vancomycin/NS 2,000 MG/500 ML PLAST..BAG 250 MG IV (17:44)
[2025-05-12 17:46] LABS: Alanine Aminotransferase 92 U/L (0-40); Albumin Level 4.0 g/dL (3.5-5.0); Alkaline Phosphatase 115 U/L (39-117); Anion Gap 18 (12-20); Aspartate Amino Transferase 40 U/L (5-37); Blood Urea Nitrogen 19 mg/dL (9-16); Calcium 9.5 mg/dL (8.4-10.2); Carbon Dioxide 22 mmol/L (22-29); Chloride 108 mmol/L (96-108); Creatinine Clr Calc Pharmacy 43.0; Estimated Glomerular Filt Rate 49; Magnesium 1.8 mg/dL (1.6-2.6); Potassium 5.1 mmol/L (3.3-5.1); Sodium 143 mmol/L (135-145); Total Protein 7.4 g/dL (6.5-8.0)
[2025-05-12 17:50] LABS: Troponin-I High Sensitivity 2.7 ng/L (<3.5-35.0)
--- OUTSIDE RECORDS SUMMARY | 2025-05-12 17:51 | XMS_ITS | Clinical Summary ---
Author Organization [facility] Address [address] [place] [id number] Phone Care Team Providers Care Needle Punch Machine Operator Name Role Phone Kia Stroud MD Primary Care Provider [phone] Allergies No known active allergies Medications umeclidinium-vi [...] Date Diagnosed Date Rheumatoid arthritis of [facility] with negative rheumatoid factor 12/14/2021 Overview [...] off Inflixamab. He is being followed by [facility] and receiving a prednisone [...] off Inflixamab. He is being followed by [facility] and receiving a prednisone taper, current dose 10 mg/day. Recent admission for cellulitis /wound infection of LE requiring Surgery,c/b DVT, PE,cardiac arrest now on coumadin. Followed by [facility] for significant skin ulceration -Will need to hold any biologic treatment until wounds healed. RA does not appear active currently on pred 10 mg -Will need derm involved for LE ulcers, ? PG- appointment scheduled with [facility] wrecker in [place] in near future -Unclear if he has [...] off Inflixamab. He is being followed by [facility] [place] and receiving a prednisone taper, current dose [...] now on prednisone taper , followed by [facility] Would recommend dermatology involvement Consider [facility] derm/rheum clinic Assessment & Plan (12/15/2021 12:00 AM EDT): Long hx of bilateral LE wounds Treated in past for venous stasis with minimal improvement Most recent pathology ? Venous stasis vs PG Resolution of ulcerations on Inflixamab supports the diagnosis of PG Off Inflixamab since 07/01 with recurrent ulcerations, now on prednisone taper , followed by [facility] Would recommend dermatology involvement Consider [facility] derm/rheum clinic Venous insufficiency 09/30/2021 Smoking history [...] EDT) SODIUM 143 133 - 146 mmol/L [facility] POTASSIUM 4.7 3.3 - 5.1 mmol/L [facility] CHLORIDE 105 96 - 108 mmol/L [facility] CO2 27 21 - 35 mmol/L [facility] BUN 43(H) 6 - 19 mg/dL [facility] CREATININE 0.80 0.5 - 1.5 mg/dL [facility] GLUCOSE 90 70 - 99 mg/dL [facility] ALBUMIN 3.5(L) 3.9 - 4.8 g/dL [facility] TOTAL PROTEIN 6.2(L) 6.5 - 8.0 g/dL [facility] CALCIUM 9.5 8.4 - 10.3 mg/dL [facility] ALKALINE PHOSPHATASE 72 39 - 117 U/L [facility] TOTAL BILIRUBIN <0.2 0.0 - 1.2 mg/dL [facility] AST 18 0 - 37 U/L [facility] ALT 34 0 - 40 U/L [facility] GLOBULIN 2.7 1 - 4.8 g/dL [facility] EGFR 92 >59 mL/min/1.7 3m2 [facility] Comment:Estimated glomerular filtration rate calculated using the CKD-EPI refit equation. ANION GAP 16 10 - 20 mmol/L [facility] Blood 02/13/2022 10:3 0 AM EDT 02/13/2022 11:28 PM EDT us Alesia Cornejo MD LAB BLOOD ORDERABLES Final Res ult [facility] [address] [place] [address] from Last 3 Months or Most Recently Relevant to Health Maintenance Insurance [employer] O MEDICARE REPLACEMENT AETNA O MEDICARE REPLACEMENT AETNA PPO MEDICARE REPLACEMENT AETNA O MEDICARE REPLACEMENT AETNA O MEDICARE REPLACEMENT AETNA O MEDICARE REPLACEMENT AETNA O MEDICARE REPLACEMENT AETNA PPO MEDICARE REPLACEMENT AETNA PPO MEDICARE REPLACEMENT Care Teams Needle Punch Machine Operator Relationship Specialty Start Date End Date Kia Stroud MD [address] [place] [id number] PCP - General Internal Medicine 02/25/22 Additional Source Comments The information contained in this document represents components of the legal health record. It is not the complete legal health record.[facility]
--- OUTSIDE RECORDS SUMMARY | 2025-05-12 17:51 | XMS_ITS | Patient Health Record ---
Author Organization [facility] Address [address] [place] [id number] Care Team Providers Care Termite Control Representative Name Role Phone Lalitha MORALES, William Primary Care Provider Kong Nava Unavailable [phone] Arnav Limon Unavailable Unavailable Allergies No Known Allergies Reason For Referral No Information Medications Medication SIG (Take, Route, Frequency, Duration) Notes Start Date End Date Status Enbrel SureClick 50 MG/ML Subcutaneous Active Problems Problem Type SNOMED Code ICD Code Onset Dates Problem Status W/U Status Risk Notes Problem Skin ulcer of calf (282121007) Ulcer (skin exp) LEFT CALF (L97.221) Active confirmed Problem Varicose veins of lower extremity (82335448) Vikash Insuf (other compl) LEFT (I83.892) Active confirmed Problem Vikash Insuf (ulcer) LEFT CALF (I83.022) Active confirmed Plan Of Treatment No Information Insurance Providers Payer Name Payer Address Payer Phone Subscriber Number Group Number Insured Name Patient Relationship to Insured Coverage Start Date Coverage End Date [employer] Blue [address] [place] [address] [id number] Sarath Gipson Self - patient is the insured [employer] PPO,EPO & Medigap [address] [place] [address] [id number] Farideh Gipson Spouse - patient is the spouse of the insured [employer] [address] [place] [id number] Sarath Gipson Self - patient is the insured 8
--- OUTSIDE RECORDS SUMMARY | 2025-05-12 17:51 | XMS_ITS | Clinical Summary ---
Author Organization [facility] Address [address] [place] [address] Care Team Providers Care Mentally Impaired Teacher Name Role Phone Kia Stroud MD Primary Care Provider [phone] Social History Tobacco Use Types Packs/Day Years [...] Insurance [employer] Medicare Aena Medicare Care Teams Mentally Impaired Teacher Relationship Specialty Start Date End Date Kia Stroud MD [facility] [address] [place], [place] PCP - General Internal Medicine 12/04/21
--- OUTSIDE RECORDS SUMMARY | 2025-05-12 17:51 | XMS_ITS | Clinical Summary ---
Author Organization [facility] Address [address] [place] [address] Care Team Providers Care Commissions Analyst Name Role Phone Kia Stroud MD Primary Care Provider [phone] Social History Tobacco Use Types Packs/Day Years Used Date Smoking Tobacco: Never Assessed Sex and Gender Information Value Date Recorded Sex Assigned at Not on file Legal Sex Male 8:59 AM EDT Gender Identity Not on file Sexual Orientation Not on file Plan of Treatment Upcoming Encounters Date Type Department Care Team (Late st Contact Info) Description 05/23/2025 2:00 PM EST Office Visit [facility] Department of Wound Care [address] [place] [address] Insurance AET[employer] MANAGED MEDICARE PPO Care Teams Commissions Analyst Relationship Specialty Start Date End Date Kia Stroud MD [address] [place] [address] [address] [place] [address] PCP - General Family Medicine 05/08/25
[2025-05-12 17:56] LABS: COVID-19 Test Negative (Negative); IDNOW Serial# 55D5AD1C; IDNOW Serial# 58CA691E; Influenza B2 Negative (Negative)
[2025-05-12 18:36] LABS: NT Pro B Type Natriuretic Pept 565.1 pg/mL (<300)
--- NOTE | 2025-05-12 18:55 | PC.NURSE ---
RT to bedside, pt downgraded from Bipap to oxymask at 8L.
[2025-05-12 19:24] LABS: Reflex Lactate? Lactic Acid Added
[2025-05-12 20:13] LABS: ~Lactic Acid-LAB USE ONLY 3.1 mmol/L (0.5-2.0)
[2025-05-12] MEDS: Lactated Ringers 1,000 ML 100 ML IVCONT (21:02)
--- NOTE | 2025-05-12 21:02 | P.HPHOSP_ITS ---
History of Present Illness Date of Service: 05/12/25 Attending physician on admission: Jaylen Eden Chief Complaint: Shortness of breath Sarath Gipson is a 79 years old man with past medical history significant for COPD on home oxygen 2 L/min at nighttime, essential hypertension, CKD stage 3A and RA on low dose prednisone was brought to the ED via EMS after he developed worsening shortness on breath associated with wheezing, cough, fever and chills. He denied chest pain or palpitations. He has been confused. Loss of consciousness or head and neck were not reported. He did not report any acute gastrointestinal genitourinary symptoms. He is a former tobacco smoker. In the ED, he was initially found to have temperature of 104.9 degrees, sinus tachycardia, tachypnea and low O2 sats 86% and currently requiring 2 L/min via nasal cannula. Blood pressure has been stable. Blood workup showed no leukocytosis but there is marked neutrophilia. Platelets are 378 and hemoglobin is at baseline, 12.9. Venous blood gas showed no respiratory acidosis. There are no significant electrolyte imbalances. BUN is 19 and creatinine 1.39, at baseline. There is lactic acidosis there is worsening from 2.4-3.1. Glucose 116. Transaminases are slightly elevated, however bilirubin and alk-phos are normal. CRP is 10.07 and BNP 565.1. Troponin is 2.7. ETOH is less than 10. COVID and influenza testing is negative. Chest CTA showed no evidence of PE, there is [id number] emphysema without focal airspace opacities or pleural effusions. ECG shows sinus tachycardia, HR 129 bpm, nonspecific ST abnormalities. Patient was placed on BiPAP for a period of time. ED tx: Albuterol nebs, Zosyn 4.5 mg g IV, vancomycin 2 g IV, Xopenex 1.25 mg there, Xopenex 3.75 mg, Solu-Medrol 50 mg IV, Tylenol 1 g IV Review of Systems 2 Review of Systems: All 12 systems were reviewed and normal except as noted in HPI. 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 Acute pulmonary embolism with acute cor pulmonale Acute pulmonary embolism Cardiac arrest CKD (chronic kidney disease) stage 3, GFR 30-59 ml/min Sjogren's disease Leg pain, bilateral Elevated serum creatinine COPD (chronic obstructive pulmonary disease) HTN (hypertension) Rheumatoid arthritis Chronic ulcer of leg Family History Sister Breast cancer Father Aneurysm Mother Angina at rest Other No family history of coronary artery disease Surgical History History of ankle surgery History of hernia repair History of left knee replacement Social History Household Members: Spouse Housing: House Do you presently have visiting nurse or other home services: No Alcohol intake: current Alcohol intake frequency: does not drink Comment: restraints Patient Tobacco Use Status: Former Tobacco user Tobacco use type: Cigarette Cigarette Packs Per Day: 1 Years Smoked: quit + years e-Cigarette/Vaping Use: Never Used Second Hand Smoke Exposure: No Advance Directives Date on File: 12/23/21 service: Yes Current occupational status: retired Cognitive needs: Yes (cane) Hearing needs: No Vision needs: Yes (Pt wear glasses. 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 Verified 05/12/25 17:14 Active Medications: Current Medications Albuterol Sulfate (Albuterol Sulfate (0.083%) 2.5 Mg/3 Ml Vial.Neb) 2.5 mg INHALE Q2H PRN PRN Reason: Shortness of Breath/Wheezing Albuterol/Ipratropium (Albuterol/Iprat 2.5/0.5mg 3 Ml Ampul.Neb) 3 ml INHALE RQ4H WHILE AWAKE PETER Calcium Carbonate (Calcium Carbonate 750 Mg Tab.Chew) 750 mg PO Q4H PRN PRN Reason: Heartburn Lactated Ringer's (Lr) 1,000 mls @ 100 mls/hr IVCONT .Q10H PETER Stop: 05/13/25 06:44 Piperacillin Sod/Tazobactam (Sod 3.375 gm/ Sodium Chloride) 50 mls @ 100 mls/hr IV Q6H PETER Magnesium Hydroxide (Milk Of Magnesia 30 Ml Oral.Susp) 30 ml PO DAILY PRN PRN Reason: Constipation Melatonin (Melatonin 3 Mg Tablet) 6 mg PO BEDTIME PRN PRN Reason: Insomnia Methylprednisolone Sodium Succinate (Methylprednisolone Sod Succ 40 Mg/Ml Vial) 40 mg IVPUSH Q12H PETER Ondansetron HCl (Ondansetron Hcl 4 Mg/2 Ml Vial) 4 mg IVPUSH Q8H PRN PRN Reason: Nausea and Vomiting Pharmacy Consult (Consult Rx Vancomycin Dosing) 1 each MISCELLANE DAILY PRN PRN Reason: Consult order Sodium Chloride (0.9 % Sodium Chloride Flush 3 Ml Syringe) 3 ml IVFLUSH QSHIFT PETER Home Medications ?Medication ?Instructions ?Recorded ?Confirmed ?Last Taken ?Type acetaminophen 500 mg tablet 1,000 mg PO Q6H PRN Pain ( Scale 10/30/21 05/08/25 12/22/21 History (Tylenol Extra Strength) Score 1-3) albuterol sulfate 90 mcg/actuation 2 puff inhalation Q 6H PRN dyspnea 04/25/24 05/08/25 Unknown History aerosol inhaler fluticasone propionate 50 2 spray intranasal DAILY PRN 04/25/24 05/08/25 Unknown History mcg/actuation nasal allergies spray,suspension (Flonase Allergy Relief) prednisone 5 mg tablet 5 mg PO 03/30/25 05/08/25 Un known History Physical Exam 2 Vital Signs and Narrative: Vital Signs: Last Vital Signs Temp 100.3 F 05/12/25 20:21 Pulse 95 05/12/25 20:21 Resp 18 05/12/25 20:21 BP 112/76 05/12/25 20:21 Pulse Ox 91 L 05/12/25 20:21 O2 Del Method Nasal Cannula 05/12/25 20:21 O2 Flow Rate 2 05/12/25 20:21 Oxygen Flow Rate 3 05/12/25 17:12 BMI result Body Mass Index 27.3 General: Alert, oriented, in no acute distress. Cooperative. Afebrile. Nasal cannula in place. HEENT: Head normocephalic, atraumatic. PER, EOMI. Sclerae anicteric, conjunctiva clear. Dry oral mucosa. Neck: Supple or JVD. Heart: RRR, no murmurs, rubs or gallops. Lungs: Tachypnea, decreased breath sounds bilaterally. No wheezes, rales, or rhonchi. Normal respiratory effort. Abdomen: Soft, non tenderness, nondistended, normoactive bowel sounds. No hepatosplenomegaly, masses or masses. Extremities: No calf tenderness bilaterally, no swelling. Left lower extremity: Clean bandage around ankle foot region. Musculoskeletal: Full range of motion. No joint swelling, deformity, or tenderness. Generalized atrophy. Skin: Warm/Dry. No pallor. No jaundice. Neurologic: Alert & oriented x4. Moving all extremities spontaneously. Normal speech. Psychological: Normal mood and affect. Thought process coherent. Results Labs 05/12/25 17:17 05/12/25 17:17 Labs: Laboratory Results - last 24 hr 05/12/25 05/12/25 05/12/25 17:17 17:23 17:31 MCV 80.4 MCH 23.8 L MCHC 29.7 L RDW 19.5 H Plt Count 373 MPV 8.5 L Immature Gran % (Auto) 0.9 H Neut % (Auto) 89.8 H Lymph % (Auto) 6.9 L [place] % (Auto) 1.8 L Eos % (Auto) 0.2 Baso % (Auto) 0.4 Lymph # (Auto) 0.6 L [place] # (Auto) 0.2 Eos # (Auto) 0.0 Baso # (Auto) 0.0 Abs Immat Gran (auto) 0.07 H Absolute Neuts (auto) 7.3 Absolute Nucleated RBC 0.000 Nucleated RBC % (auto) 0.0 PT 13.8 H INR 1.2 H VBG pH 7.44 H VBG pCO2 36 VBG pO2 70 VBG HCO3 25 VBG O2 Saturation 92.0 VBG Base Excess 1.5 Anion Gap 18 Estim Creat Clear Calc 43.0 Estimated GFR 49 Random Glucose 116 H Lactic Acid 2.4 H* Lactic Acid F/U @ 2Hr Calcium 9.5 Magnesium 1.8 Total Bilirubin 0.5 Direct Bilirubin 0.3 AST 40 H ALT 92 H Alkaline Phosphatase 115 Troponin I High Sens 2.7 D C-Reactive Protein 10.07 H NT-Pro-B Natriuret Pep 565.1 H Total Protein 7.4 Albumin 4.0 Ethyl Alcohol < 10 COVID-19 (MICHOACANO) Negative COVID-19 Clin Com See Note Influenza Type A (DAVID) Negative Influenza Type B (DAVID) Negative Influenza A & B Note See Note 05/12/25 19:40 MCV MCH MCHC RDW Plt Count MPV Immature Gran % (Auto) Neut % (Auto) Lymph % (Auto) [place] % (Auto) Eos % (Auto) Baso % (Auto) Lymph # (Auto) [place] # (Auto) Eos # (Auto) Baso # (Auto) Abs Immat Gran (auto) Absolute Neuts (auto) Absolute Nucleated RBC Nucleated RBC % (auto) PT INR VBG pH VBG pCO2 VBG pO2 VBG HCO3 VBG O2 Saturation VBG Base Excess Anion Gap Estim Creat Clear Calc Estimated GFR Random Glucose Lactic Acid Lactic Acid F/U @ 2Hr 3.1 H* Calcium Magnesium Total Bilirubin Direct Bilirubin AST ALT Alkaline Phosphatase Troponin I High Sens C-Reactive Protein NT-Pro-B Natriuret Pep Total Protein Albumin Ethyl Alcohol COVID-19 ([facility]HOACANO) COVID-19 Clin Com Influenza Type A (DAVID) Influenza Type B (DAVID) Influenza A & B Note Assessment and Plan (1) Acute and chronic respiratory failure with hypoxia: Status: Acute (2) Severe sepsis: Status: Acute Plan Sarath Gipson is a 7/o man with PHx significant for COPD on home oxygen 2 L/min at nighttime, who presents with: Acute on chronic hypoxic respiratory failure due to COPD exacerbation. Telemetry. Pulse oximetry. Supplemental O2 to keep O2 sats > 90%. Continue bronchodilator therapy, IV antibiotic therapy with Zosyn and IV steroids. Severe sepsis, likely secondary to above. NS bolus 30 mL/hour given in ED. Continue IV fluids. Continue empiric IV antibiotic therapy with Zosyn and vancomycin. Blood cultures obtained -will follow results. Acute lactic acidosis. Secondary to severe sepsis. Continue IV antibiotics and IV fluids. Continue to monitor. Essential hypertension. Amlodipine and metoprolol on hold due to soft BP. Restart these when appropriate. CKD stage 3A. Continue to monitor renal function. Avoid nephrotoxic agents. RA. Prednisone hold as patient will be receiving IV Solu-Medrol. Chronic wound, left lower extremity. Wound Care consult. Code status: Full DVT prophylaxis: SCDs only, allergic to heparin. med rec pending Patient will need hospitalization for at least 2 midnights for acute on chronic hypoxic respiratory failure due to COPD exacerbation and sepsis treatment with IV antibiotics, IV steroids, supplemental oxygen and bronchodilator therapy. This documentation was generated using dictation software; minor spreading or bowl sander errors may be present. Quality Stroke Does the patient have a stroke diagnosis?: No VTE Prior VTE?: No VTE Risk Level:: Medical - moderate - high VTE Device Contraindication: Treatment Not Indicated VTE Drug Contraindication: N/A - Med Ordered
[2025-05-12 21:24] LABS: Appearance Urine Clear; Glucose Urine UA Negative (Negative); PH 5.0 (5.0-9.0); Specific Gravity - Urine 1.015 (1.005-1.025)
[2025-05-12 21:48] LABS: Reflex Lactate? 2 Y
--- NOTE | 2025-05-12 22:29 | PC.NURSE ---
T/w took critical value Lactic 3.0, admitting provider Dr. Eden made aware.
[2025-05-12 22:30] LABS: ~Lactic Acid-LAB USE ONLY 3.0 mmol/L (0.5-2.0)
[2025-05-12] MEDS: Lactated Ringers 500 ML 999 ML IV (22:44)
--- NOTE | 2025-05-12 23:22 | PC.NURSE ---
Assumed care of this Pt at 2300.
[2025-05-13] VITALS (13 sets, daily range): BP systolic 107–156; BP diastolic 70–92; PULSE 72–105; RESP 14–24; TEMP 36.4–37; O2SAT 90–96; BMI 29.3
[2025-05-13 03:40] LABS: Hematocrit 35.2 % (42.0-52.0); Hemoglobin 10.5 g/dl (14.0-18.0); Imm Gran Abs Auto 0.06 X10*3/uL (0.00-0.03); Imm Gran Pct Auto 0.6 % (0.0-0.4); Lymphocytes Absolute Auto 0.3 X10*3/uL (1.2-4.9); MANUAL DIFF FLAG SCAN; Mean Corpuscular HGB Conc 29.8 g/dl (31.0-36.0); Mean Corpuscular Hemoglobin 24.1 pg (27.0-33.0); Mean Corpuscular Volume 80.9 fL (80.0-98.0); NRBC Abs Auto 0.000 X10*3/uL (0.0-0.012); NRBC Pct Auto 0.0 /100WBC (0.0-0.2); Platelet Count 296 X10*3/uL (160-400); Red Blood Count 4.35 X10*6/uL (4.60-5.80); SCAN SMEAR FLAG 1; White Blood Count 9.5 X10*3/uL (4.8-10.8)
[2025-05-13 04:03] LABS: Alanine Aminotransferase 69 U/L (0-40); Albumin Level 3.2 g/dL (3.5-5.0); Alkaline Phosphatase 91 U/L (39-117); Anion Gap 16 (12-20); Aspartate Amino Transferase 25 U/L (5-37); Blood Urea Nitrogen 17 mg/dL (9-16); Calcium 8.3 mg/dL (8.4-10.2); Carbon Dioxide 19 mmol/L (22-29); Chloride 111 mmol/L (96-108); Creatinine Clr Calc Pharmacy 45.7; Estimated Glomerular Filt Rate 53; Magnesium 1.9 mg/dL (1.6-2.6); Potassium 4.5 mmol/L (3.3-5.1); Sodium 141 mmol/L (135-145); Total Protein 6.1 g/dL (6.5-8.0)
--- NOTE | 2025-05-13 06:04 | HO.NURTONUR ---
Addendum entered by Yolanda Diaz RN 05/13/25 19:33: changed bandage to L leg wound today. NSR on tele. pain managed at this time. 94% on 2L NC. denies SOB. ADMIT: severe sepsis, acute hypoxia Original Note: Pt A&Ox3, came in from home for worsening shortness on breath associated with wheezing, cough, fever and chills. Here in ED Pt has temp of 104.9 degrees, sinus tachycardia, tachypnea and low O2 sats 86% and currently requiring 2 L/min via nasal cannula, VBG of respiratory acidosis. Pt was placed on BiPAP, given Albuterol nebs, Zosyn 4.5 mg g IV, vancomycin 2 g IV, Xopenex 1.25 mg there, Xopenex 3.75 mg, Solu-Medrol 50 mg IV, Tylenol 1 g IV, sepsis workup. Pt has Chronic wound to left lower extremity, dressing applied. Wound Care consult in place. Pt currently on 2.5L via NC. Bilateral 20G IVs. Pt reports he gets around via W/C, male purewick in place. Pt being admitted for COPD exacerbation.
[2025-05-13] MEDS: 0.9 % Sodium Chloride Flush 3 ML SYRINGE IVFLUSH ×3 (07:03→21:54)
[2025-05-13] MEDS: Albuterol/Iprat 2.5/0.5MG 3 ML AMPUL.NEB INHALE ×4 (08:21→21:29)
--- NOTE | 2025-05-13 09:06 | P.PNIM_ITS ---
Subjective Subjective Date of Service: 05/13/25 Interval History: pneumonia Review of Systems Shortness of breaths seems improving, dry cough No fever. Review of Systems: Yes all other systems are reviewed and are negative Physical Exam 2 Exam: Exam: Appearance: Alert.? Oriented X3.? cvs: rrr, [id number] , no murmur res: clear to auscultation ,no rhonchii or wheezing abd: no rebound or guarding ,nt, bs present. ext pulses present , no cyanosis . neuro: axo3 , nonfocal. Vital Signs: Vital Signs: Last Vital Signs Temp 97.8 F 05/13/25 04:42 Pulse 72 05/13/25 08:24 Resp 16 05/13/25 08:24 BP 128/89 05/13/25 04:42 Pulse Ox 92 05/13/25 04:42 O2 Del Method Nasal Cannula 05/13/25 04:42 O2 Flow Rate 2.5 05/13/25 04:42 Oxygen Flow Rate 3 05/12/25 17:12 BMI result Body Mass Index 27.3 Objective Data Active Medications Acetaminophen (Acetaminophen 325 Mg Tablet) 975 mg PO Q6H PRN PRN Reason: leg pain Last Admin: 05/13/25 07:01 Dose: 975 mg Documented By: HENRI Albuterol Sulfate (Albuterol Sulfate (0.083%) 2.5 Mg/3 Ml Vial.Neb) 2.5 mg INHALE Q2H PRN PRN Reason: Shortness of Breath/Wheezing Albuterol/Ipratropium (Albuterol/Iprat 2.5/0.5mg 3 Ml Ampul.Neb) 3 ml INHALE RQ4H WHILE AWAKE [facility] Last Admin: 05/13/25 08:21 Dose: 3 ml Documented By: SCOVILVidal Calcium Carbonate (Calcium Carbonate 750 Mg Tab.Chew) 750 mg PO Q4H PRN PRN Reason: Heartburn Piperacillin Sod/Tazobactam (Sod 3.375 gm/ Sodium Chloride) 50 mls @ 100 mls/hr IV Q6H [facility] Last Infusion: 05/13/25 06:54 Dose: Infused Documented By: CONOR Vancomycin HCl 1,250 mg/ (Sodium Chloride) 250 mls @ 166.667 mls/hr IV Q24H [facility] Magnesium Hydroxide (Milk Of Magnesia 30 Ml Oral.Susp) 30 ml PO DAILY PRN PRN Reason: Constipation Melatonin (Melatonin 3 Mg Tablet) 6 mg PO BEDTIME PRN PRN Reason: Insomnia Methylprednisolone Sodium Succinate (Methylprednisolone Sod Succ 40 Mg/Ml Vial) 40 mg IVPUSH Q12H [facility] Last Admin: 05/13/25 06:11 Dose: 40 mg Documented By: CONOR Ondansetron HCl (Ondansetron Hcl 4 Mg/2 Ml Vial) 4 mg IVPUSH Q8H PRN PRN Reason: Nausea and Vomiting Pharmacy Consult (Consult Rx Vancomycin Dosing) 1 each MISCELLANE DAILY PRN PRN Reason: Consult order Sodium Chloride (0.9 % Sodium Chloride Flush 3 Ml Syringe) 3 ml IVFLUSH QSHIFT [facility] Last Admin: 05/13/25 07:03 Dose: 3 ml Documented By: HENRI Labs 05/13/25 03:26 05/13/25 03:26 Labs: Laboratory Results - last 24 hr 05/12/25 05/12/25 05/12/25 17:17 17:23 17:31 MCV 80.4 MCH 23.8 L MCHC 29.7 L RDW 19.5 H Plt Count 373 MPV 8.5 L Immature Gran % (Auto) 0.9 H Neut % (Auto) 89.8 H Lymph % (Auto) 6.9 L [place] % (Auto) 1.8 L Eos % (Auto) 0.2 Baso % (Auto) 0.4 Lymph # (Auto) 0.6 L [place] # (Auto) 0.2 Eos # (Auto) 0.0 Baso # (Auto) 0.0 Abs Immat Gran (auto) 0.07 H Absolute Neuts (auto) 7.3 Absolute Nucleated RBC 0.000 Nucleated RBC % (auto) 0.0 Smear Tech's Comments PT 13.8 H INR 1.2 H VBG pH 7.44 H VBG pCO2 36 VBG pO2 70 VBG HCO3 25 VBG O2 Saturation 92.0 VBG Base Excess 1.5 Anion Gap 18 Estim Creat Clear Calc 43.0 Estimated GFR 49 Random Glucose 116 H Lactic Acid 2.4 H* Lactic Acid F/U @ 2Hr Lactic Acid F/U @ 4Hr Calcium 9.5 Magnesium 1.8 Total Bilirubin 0.5 Direct Bilirubin 0.3 AST 40 H ALT 92 H Alkaline Phosphatase 115 Troponin I High Sens 2.7 D C-Reactive Protein 10.07 H NT-Pro-B Natriuret Pep 565.1 H Total Protein 7.4 Albumin 4.0 Urine Color Urine Appearance Urine pH Ur Specific [place] Urine Protein Urine Glucose (UA) Urine Ketones Urine Blood Urine Nitrite Ur Leukocyte Esterase Ethyl Alcohol < 10 COVID-19 ([facility]) Negative COVID-19 Clin Com See Note Influenza Type A (DAVID) Negative Influenza Type B (DAVID) Negative Influenza A & B Note See Note 05/12/25 05/12/25 05/12/25 19:40 21:08 22:00 MCV MCH MCHC RDW Plt Count MPV Immature Gran % (Auto) Neut % (Auto) Lymph % (Auto) [place] % (Auto) Eos % (Auto) Baso % (Auto) Lymph # (Auto) [place] # (Auto) Eos # (Auto) Baso # (Auto) Abs Immat Gran (auto) Absolute Neuts (auto) Absolute Nucleated RBC Nucleated RBC % (auto) Smear Tech's Comments PT INR VBG pH VBG pCO2 VBG pO2 VBG HCO3 VBG O2 Saturation VBG Base Excess Anion Gap Estim Creat Clear Calc Estimated GFR Random Glucose Lactic Acid Lactic Acid F/U @ 2Hr 3.1 H* Lactic Acid F/U @ 4Hr 3.0 H* Calcium Magnesium Total Bilirubin Direct Bilirubin AST ALT Alkaline Phosphatase Troponin I High Sens C-Reactive Protein NT-Pro-B Natriuret Pep Total Protein Albumin Urine Color Yellow Urine Appearance Clear Urine pH 5.0 Ur Specific [place] 1.015 Urine Protein Negative Urine Glucose (UA) Negative Urine Ketones Negative Urine Blood Negative Urine Nitrite Negative Ur Leukocyte Esterase Negative Ethyl Alcohol COVID-19 ([facility]O) COVID-19 Clin Com Influenza Type A (DAVID) Influenza Type B (DAVID) Influenza A & B Note 05/13/25 03:26 MCV 80.9 MCH 24.1 L MCHC 29.8 L RDW 18.5 H Plt Count 296 MPV 8.9 L Immature Gran % (Auto) 0.6 H Neut % (Auto) 94.3 H Lymph % (Auto) 3.5 L [place] % (Auto) 1.4 L Eos % (Auto) 0.0 Baso % (Auto) 0.2 Lymph # (Auto) 0.3 L [place] # (Auto) 0.1 Eos # (Auto) 0.0 Baso # (Auto) 0.0 Abs Immat Gran (auto) 0.06 H Absolute Neuts (auto) 8.9 H Absolute Nucleated RBC 0.000 Nucleated RBC % (auto) 0.0 Smear Tech's Comments VERIFIED PT INR VBG pH VBG pCO2 VBG pO2 VBG HCO3 VBG O2 Saturation VBG Base Excess Anion Gap 16 Estim Creat Clear Calc 45.7 Estimated GFR 53 Random Glucose 228 H Lactic Acid Lactic Acid F/U @ 2Hr Lactic Acid F/U @ 4Hr Calcium 8.3 L D Magnesium 1.9 Total Bilirubin 0.5 Direct Bilirubin AST 25 ALT 69 H Alkaline Phosphatase 91 Troponin I High Sens C-Reactive Protein NT-Pro-B Natriuret Pep Total Protein 6.1 L Albumin 3.2 L Urine Color Urine Appearance Urine pH Ur Specific [place] Urine Protein Urine Glucose (UA) Urine Ketones Urine Blood Urine Nitrite Ur Leukocyte Esterase Ethyl Alcohol COVID-19 ([facility]) COVID-19 Clin Com Influenza Type A (DAVID) Influenza Type B (DAVID) Influenza A & B Note Assessment and Plan (1) Pneumonia: Status: Acute Plan Patient with PHx significant for COPD on home oxygen 2 L/min at nighttime, who presents with: Acute on chronic hypoxic respiratory failure due to COPD exacerbation. Telemetry. Pulse oximetry. Supplemental O2 to keep O2 sats > 90%. Continue bronchodilator therapy, IV antibiotic therapy with Zosyn and IV steroids. Severe sepsis, likely secondary to above. NS bolus 30 mL/hour given in ED. Continue IV fluids. Continue empiric IV antibiotic therapy with Zosyn and vancomycin. Blood cultures obtained -will follow results. Acute lactic acidosis. Secondary to severe sepsis. Continue IV antibiotics and IV fluids. Continue to monitor. Essential hypertension. Amlodipine and metoprolol on hold due to soft BP. Restart these when appropriate. CKD stage 3A. Continue to monitor renal function. Avoid nephrotoxic agents. RA. Prednisone hold as patient will be receiving IV Solu-Medrol. Chronic wound, left lower extremity. Wound Care consult. Code status: Full DVT prophylaxis: SCDs only, allergic to heparin. ongoing need stay for acute on chronic hypoxic respiratory failure due to COPD exacerbation and sepsis treatment with IV antibiotics, IV steroids, supplemental oxygen and bronchodilator therapy. Quality Stroke Does the patient have a stroke diagnosis?: No VTE Prior VTE?: No VTE Risk Level:: Medical - moderate - high VTE Device Contraindication: Treatment Not Indicated VTE Drug Contraindication: N/A - Med Ordered
--- NOTE | 2025-05-13 10:17 | PHA.MEDREC ---
Pharmacy Consult ? Medication Reconciliation Pharmacy has completed the medication reconciliation. Spoke with patient and his . was able to name all medications, doses and freqencies. She did also confirm patient to be on Benfotiamine 300 mg and Gallic acid 600 mg OTC for neuropathy.
[2025-05-13] MEDS: Metoprolol Succinate ER 50 MG TAB.ER.24H PO (12:04)
--- NOTE | 2025-05-13 15:04 | MHC.CM.PN ---
IMM GIVEN 05/13. THIS CM MET WITH PATIENT AND HIS /HCP PRESENT AT BEDSIDE IN THE ED. PER PATIENT, HE LIVES AT HOME WITH HIS , SHE IS HIS PRIMARY CAREGIVER. PATIENT GOES TO THE OUTPATIENT WOUND CLINIC ONCE EVERY TWO WEEKS FOR A LEFT ANKLE WOUND. PATIENT WOULD BE OPEN TO ACCEPTING A [facility] AGENCY UPON DISCHARGE, LONG THEY ARE WELL VERSED IN WOUND CARE. DME: WHEELCHAIR, HOME O2 THROUGH [facility]. PATIENTS WILL TRANSPORT HIM HOME AT DISCHARGE. HCP ON FILE AND VERIFIED. PCP: DR. SMITH PO
--- NOTE | 2025-05-13 15:38 | PC.NURSE ---
Pts changed wound bandage with supplies. Pt medicated for pain. MD aware of tyelnol over the max for the day, reported to hold further Tylenol.
[2025-05-14] VITALS (13 sets, daily range): BP systolic 124–177; BP diastolic 75–102; PULSE 68–105; RESP 16–20; TEMP 36.4–37.2; O2SAT 90–93
--- NOTE | 2025-05-14 | ECG_ITS ---
Test Reason : Chest burning Blood Pressure : */* mmHG Vent. Rate : 95 BPM Atrial Rate : 95 BPM P-R Int : 160 ms QRS Dur : 88 ms QT Int : 344 ms P-R-T Axes : 61 0 41 degrees QTcB Int : 432 ms Sinus rhythm with Premature atrial complexes with Aberrant conduction Otherwise normal ECG When compared with ECG of 12-May-2025 17:18, Aberrant conduction is now Present Referred By: Hernan Hastings Electronically Signed By: Loco Carr
[2025-05-14 07:38] LABS: Creatinine Clr Calc Pharmacy 46.1; Estimated Glomerular Filt Rate 47
[2025-05-14] MEDS: Albuterol/Iprat 2.5/0.5MG 3 ML AMPUL.NEB INHALE ×4 (07:52→19:52)
[2025-05-14] MEDS: Metoprolol Succinate ER 50 MG TAB.ER.24H PO (08:10)
[2025-05-14] MEDS: 0.9 % Sodium Chloride Flush 3 ML SYRINGE IVFLUSH ×2 (08:12→20:34)
--- NOTE | 2025-05-14 11:14 | MHC.CM.PN ---
EMR REVIEWED, PT W/COPD/PNA REMAINS ON PRN NEB TX'S, IV ABX AND IV SOLUMEDROL, PER HOSPITALIST ANTIC 1-2 MORE DAYS OF INPT TX, ANTIC PT WILL DC HOME W/NEW [facility] AND RESUMP OF OUTPT WOUND CLINIC, CM WILL CONT TO FOLLOW DC NEEDS.
--- NOTE | 2025-05-14 12:51 | P.PNIM_ITS ---
Subjective Subjective Date of Service: 05/14/25 Interval History: copd ,penumonia Review of Systems sob with minimal exertion Has cough. Has some burning sensation epigastric area as well as some nausea. Physical Exam 2 Exam: Exam: Appearance: Alert.? Oriented X3.? cvs: [id number], [id number] , no murmur res: Air entry fair, slightly diminished at bases -mild wheezing. abd: no rebound or guarding ,nt, bs present. ext pulses present , no cyanosis . neuro: axo3 , nonfocal. Vital Signs: Vital Signs: Last Vital Signs Temp 98.6 F 05/14/25 11:42 Pulse 88 05/14/25 11:42 Resp 18 05/14/25 11:42 BP 148/90 H 05/14/25 11:42 Pulse Ox 92 05/14/25 11:42 O2 Del Method Nasal Cannula 05/14/25 11:42 O2 Flow Rate 4 05/14/25 11:42 Oxygen Flow Rate 3 05/12/25 17:12 BMI result Body Mass Index 29.3 Objective Data Active Medications Acetaminophen (Acetaminophen 325 Mg Tablet) 975 mg PO Q6H PRN PRN Reason: leg pain Last Admin: 05/14/25 08:10 Dose: 975 mg Documented By: NINA Albuterol Sulfate (Albuterol Sulfate (0.083%) 2.5 Mg/3 Ml Vial.Neb) 2.5 mg INHALE Q2H PRN PRN Reason: Shortness of Breath/Wheezing Albuterol/Ipratropium (Albuterol/Iprat 2.5/0.5mg 3 Ml Ampul.Neb) 3 ml INHALE RQ4H WHILE AWAKE [facility] Last Admin: 05/14/25 11:18 Dose: 3 ml Documented By: SHIRLEY Amlodipine Besylate (Amlodipine Besylate 2.5 Mg Tablet) 2.5 mg PO DAILY [facility]; Protocol Last Admin: 05/14/25 08:09 Dose: 2.5 mg Documented By: NINA Calcium Carbonate (Calcium Carbonate 750 Mg Tab.Chew) 750 mg PO Q4H PRN PRN Reason: Heartburn Duloxetine HCl (Duloxetine Hcl 20 Mg Capsule.Dr) 20 mg PO BEDTIME [facility] Last Admin: 05/13/25 21:53 Dose: 20 mg Documented By: MITCHEL Gabapentin (Gabapentin 600 Mg Tablet) 600 mg PO BID [facility] Last Admin: 05/14/25 08:09 Dose: 600 mg Documented By: NINA Hydromorphone HCl (Hydromorphone Hcl 2 Mg Tablet) 2 mg PO DAILY PRN PRN Reason: wound dressings/cleanings Piperacillin Sod/Tazobactam (Sod 3.375 gm/ Sodium Chloride) 50 mls @ 100 mls/hr IV Q6H [facility] Last Admin: 05/14/25 12:09 Dose: 100 mls/hr Documented By: NINA Vancomycin HCl 1,250 mg/ (Sodium Chloride) 250 mls @ 166.667 mls/hr IV Q24H [facility] Last Infusion: 05/13/25 18:40 Dose: Infused Documented By: HENRI Magnesium Hydroxide (Milk Of Magnesia 30 Ml Oral.Susp) 30 ml PO DAILY PRN PRN Reason: Constipation Melatonin (Melatonin 3 Mg Tablet) 6 mg PO BEDTIME PRN PRN Reason: Insomnia Methylprednisolone Sodium Succinate (Methylprednisolone Sod Succ 40 Mg/Ml Vial) 40 mg IVPUSH Q12H [facility] Last Admin: 05/14/25 06:05 Dose: 40 mg Documented By: MITCHEL Metoprolol Succinate (Metoprolol Succinate Er 50 Mg Tab.Er.24h) 50 mg PO DAILY [facility]; Protocol Last Admin: 05/14/25 08:10 Dose: 50 mg Documented By: NINA Multivitamins/Vitamin C (Multivitamin Tablet) 1 tab PO DAILY [facility] Last Admin: 05/14/25 08:10 Dose: 1 tab Documented By: NINA Ondansetron HCl (Ondansetron Hcl 4 Mg/2 Ml Vial) 4 mg IVPUSH Q8H PRN PRN Reason: Nausea and Vomiting Pharmacy Consult (Consult Rx Vancomycin Dosing) 1 each MISCELLANE DAILY PRN PRN Reason: Consult order Sodium Chloride (0.9 % Sodium Chloride Flush 3 Ml Syringe) 3 ml IVFLUSH QSHIFT [facility] Last Admin: 05/14/25 08:12 Dose: 3 ml Documented By: NINA Labs 05/13/25 03:26 05/14/25 06:14 Labs: Laboratory Results - last 24 hr 05/14/25 06:14 Estim Creat Clear Calc 46.1 Estimated GFR 47 Microbiology Microbiology Results: Microbiology 05/12/25 17:17 Blood Culture - Preliminary Blood - Venous No growth after 24 hours. 05/12/25 17:17 Blood Culture - Preliminary Blood - Venous No growth after 24 hours. Assessment and Plan (1) Pneumonia: Status: Acute Plan Patient with PHx significant for COPD on home oxygen 2 L/min at nighttime, who presents with: Acute on chronic hypoxic respiratory failure due to COPD exacerbation. Telemetry. Pulse oximetry. Supplemental O2 to keep O2 sats > 90%. Continue bronchodilator therapy, IV antibiotic therapy with Zosyn and IV steroids. Incentive spirometry, chest physiotherapy Severe sepsis, likely secondary to above-improving. Continue empiric IV antibiotic therapy with Zosyn and vancomycin. Blood cultures negative at 24 hours ID evaluation. Acute lactic acidosis. Secondary to severe sepsis. Improving with the hydration. Essential hypertension. Back on Amlodipine and metoprolol . Added extra dose of amlodipine 2.5 mg . Burning sensation/nausea:? Dyspepsia versus reflux Given famotidine-seems to be improved significantly Continue Zofran p.r.n. for nausea EKG seems fine, added troponin levels. CKD stage 3A. Continue to monitor renal function. Avoid nephrotoxic agents. Creatinine is 1.4 Nephrology Evaluation RA. Prednisone hold as patient will be receiving IV Solu-Medrol. Chronic wound, left lower extremity. Wound Care consult. Generalized weak: Evaluation Code status: Full DVT prophylaxis: SCDs only, allergic to heparin. ongoing need stay for acute on chronic hypoxic respiratory failure due to COPD exacerbation and sepsis treatment with IV antibiotics, IV steroids, supplemental oxygen and bronchodilator therapy. Patient's staff is aware to monitor patient if any new symptoms-we will follow- up. Night staff is also aware to follow up on patient. Above management updated with patient's on the phone. Quality Stroke Does the patient have a stroke diagnosis?: No VTE Prior VTE?: No VTE Risk Level:: Medical - moderate - high VTE Device Contraindication: Treatment Not Indicated VTE Drug Contraindication: N/A - Med Ordered
--- NOTE | 2025-05-14 13:57 | PC.NURSE ---
pt has had 3 episodes this morning where he has quick burst of an elavated HR up into the 140s. Dr banerjee made aware. will continue to monitor and grab an EKG if HR sustains.
--- NOTE | 2025-05-14 14:42 | HO.WOUND ---
Wound Consult: Initial 79 yr old male admitted to [facility] on 05/12/25- See progress notes and H&P for detailed history. Wound consult placed for left leg wound. Patient agreeable to assessment and photo documentation. at bedside, patient and gave history of wound. It has been present for about 4 years, he has had vascular procedures done to left leg. he reports wounds to the right leg that have healed. He believes wounds are related to agent orange exposure while in the . Patient is followed by [facility] outpatient wound center every other week, they report trying many different treatments including skin substitutes, and biopsies have been done. They report overall improvement in the wound in the last 4 years, however, they have been using the same treatment for the last year due to increase pain. He reports going to a pain clinic with some good results. Patient with palpable pulses, hemosiderin staining to both legs. minimal edema noted - patient reports not wearing compression due to pain. Wound is stable at this time, will continue current home/wound care dressing with cuticerin oil emulsion dressing, durafiber ag. Left lateral lower leg/ankle Etiology: venous stasis ulcer Measurements: 10cm x 5cm x 0.3cm Wound Bed: moist pale pink/white Drainage / Odor: scant serous Edges: ? open Kaelyn wound: ? No Induration, Fluctuance or Warmth noted - scar tissue Pain: yes Goals of Treatment: ? maintain stable wound with current dressing Right medial leg Right lateral leg Recommendations: 1. Turn and Reposition every 2 hours and as needed for patient comfort. Use pillows or wedges to support off loading positions. 2. Off Load all bony prominences with use of pillows and heel boots if needed. Apply Preventative foams where needed. 3. Monitor for incontinence and moisture control, use barrier creams when needed for prevention and treatment. 4. Provide adequate and supplemental nutrition. 5. Order or Continue low air loss mattress. 6. When applicable maintain blood glucose levels per Providers order. Left lateral lower leg: cleanse with saline, pat dry, apply cuticerin oil emulsion dressing, cover with durafiber ag, followed by ABD pad and kerlix, change daily and PRN Re-consult wound care Nurse for wound deterioration or wound changes.
[2025-05-14 16:24] LABS: Glucose, Whole Blood 149 mg/dL (60-115)
--- NOTE | 2025-05-14 16:42 | PC.NURSE ---
Pt began c/o epigastric discomfort and nausea suddenly. BP 177/94, Hr 88, 02 sat 90% 4L.POC 149. EKG obtained. Dr Hastings at bedside to assess pt. labs ordered and pepcid order. will continue to monitor. pt updated on the plan.
--- NOTE | 2025-05-14 17:18 | HE.PHANOTE ---
RE VANCO Patients level came back this evening at 10.4. Patients indication is sepsis, will increase patients dose to 1500 mg Q24H as patient has been on vanco since 05/12 and is not therapeutic yet. Patients SCr did show a bump, therefore next level will be 05/15 @1600 to ensure safety vs efficacy.
[2025-05-14 17:20] LABS: Troponin-I High Sensitivity 5.6 ng/L (<3.5-35.0)
[2025-05-14 18:35] LABS: Anion Gap 14 (12-20); Blood Urea Nitrogen 20 mg/dL (9-16); Calcium 9.7 mg/dL (8.4-10.2); Carbon Dioxide 24 mmol/L (22-29); Chloride 108 mmol/L (96-108); Creatinine Clr Calc Pharmacy 51.9; Estimated Glomerular Filt Rate 54; Potassium 4.2 mmol/L (3.3-5.1); Sodium 142 mmol/L (135-145)
--- NOTE | 2025-05-14 18:47 | PC.NURSE ---
Pt's workup reassuring, pt report an improvement in the epigastric discomfort and nausea. at bedside. will continue to monitor.
[2025-05-15] VITALS (10 sets, daily range): BP systolic 118–150; BP diastolic 74–88; PULSE 72–91; RESP 16–18; TEMP 36.4–37; O2SAT 92–98
[2025-05-15] MEDS: Albuterol/Iprat 2.5/0.5MG 3 ML AMPUL.NEB INHALE ×4 (07:49→19:49)
[2025-05-15 07:55] LABS: Creatinine Clr Calc Pharmacy 49.2; Estimated Glomerular Filt Rate 51
--- NOTE | 2025-05-15 08:07 | HO.PM.IMPN ---
Subjective Subjective Date of Service: 05/15/25 Interval History: copd ,penumonia Review of Systems Review of Systems: Yes all other systems are reviewed and are negative Physical Exam Exam: Exam: Appearance: Alert.? Oriented X3.? cvs: [id number], [id number] , no murmur res: Air entry fair, slightly diminished at bases -mild wheezing. abd: no rebound or guarding ,nt, bs present. ext pulses present , no cyanosis . neuro: axo3 , nonfocal. Vital Signs: Vital Signs: Last Vital Signs Temp 98.0 F 05/15/25 07:41 Pulse 72 05/15/25 07:50 Resp 18 05/15/25 07:50 BP 150/88 H 05/15/25 07:41 Pulse Ox 92 05/15/25 07:41 O2 Del Method Nasal Cannula 05/15/25 07:41 O2 Flow Rate 4 05/15/25 07:41 Oxygen Flow Rate 3 05/12/25 17:12 BMI result Body Mass Index 29.3 Objective Data Active Medications Acetaminophen (Acetaminophen 325 Mg Tablet) 975 mg PO Q6H PRN PRN Reason: leg pain Last Admin: 05/15/25 00:49 Dose: 975 mg Documented By: LOURDES Albuterol Sulfate (Albuterol Sulfate (0.083%) 2.5 Mg/3 Ml Vial.Neb) 2.5 mg INHALE Q2H PRN PRN Reason: Shortness of Breath/Wheezing Albuterol/Ipratropium (Albuterol/Iprat 2.5/0.5mg 3 Ml Ampul.Neb) 3 ml INHALE RQ4H WHILE AWAKE [facility] Last Admin: 05/15/25 07:49 Dose: 3 ml Documented By: REGINE Amlodipine Besylate (Amlodipine Besylate 2.5 Mg Tablet) 2.5 mg PO DAILY [facility]; Protocol Last Admin: 05/14/25 08:09 Dose: 2.5 mg Documented By: NINA Calcium Carbonate (Calcium Carbonate 750 Mg Tab.Chew) 750 mg PO Q4H PRN PRN Reason: Heartburn Last Admin: 05/14/25 17:45 Dose: 750 mg Documented By: NINA Duloxetine HCl (Duloxetine Hcl 20 Mg Capsule.Dr) 20 mg PO BEDTIME [facility] Last Admin: 05/14/25 20:27 Dose: 20 mg Documented By: LOURDES Famotidine (Famotidine 20 Mg Tablet) 20 mg PO DAILY [facility] Gabapentin (Gabapentin 600 Mg Tablet) 600 mg PO BID [facility] Last Admin: 05/14/25 20:27 Dose: 600 mg Documented By: LOURDES Hydromorphone HCl (Hydromorphone Hcl 2 Mg Tablet) 2 mg PO DAILY PRN PRN Reason: wound dressings/cleanings Last Admin: 05/14/25 13:05 Dose: 2 mg Documented By: NINA Piperacillin Sod/Tazobactam (Sod 3.375 gm/ Sodium Chloride) 50 mls @ 100 mls/hr IV Q6H [facility] Last Infusion: 05/15/25 01:31 Dose: Infused Documented By: LOURDES Vancomycin HCl 1,500 mg/ (Sodium Chloride) 500 mls @ 333.333 mls/hr IV Q24H [facility] Last Infusion: 05/14/25 19:48 Dose: Infused Documented By: LOURDES Magnesium Hydroxide (Milk Of Magnesia 30 Ml Oral.Susp) 30 ml PO DAILY PRN PRN Reason: Constipation Melatonin (Melatonin 3 Mg Tablet) 6 mg PO BEDTIME PRN PRN Reason: Insomnia Metoprolol Succinate (Metoprolol Succinate Er 50 Mg Tab.Er.24h) 50 mg PO DAILY [facility]; Protocol Last Admin: 05/14/25 08:10 Dose: 50 mg Documented By: NINA Multivitamins/Vitamin C (Multivitamin Tablet) 1 tab PO DAILY [facility] Last Admin: 05/14/25 08:10 Dose: 1 tab Documented By: NINA Ondansetron HCl (Ondansetron Hcl 4 Mg/2 Ml Vial) 4 mg IVPUSH Q8H PRN PRN Reason: Nausea and Vomiting Last Admin: 05/15/25 00:49 Dose: 4 mg Documented By: LOURDES Pharmacy Consult (Consult Rx Vancomycin Dosing) 1 each MISCELLANE DAILY PRN PRN Reason: Consult order Prednisone (Prednisone 20 Mg Tablet) 40 mg PO DAILY [facility] Sodium Chloride (0.9 % Sodium Chloride Flush 3 Ml Syringe) 3 ml IVFLUSH QSHIFT [facility] Last Admin: 05/14/25 20:34 Dose: 3 ml Documented By: LOURDES Labs 05/13/25 03:26 05/15/25 07:28 Labs: Laboratory Results - last 24 hr 05/14/25 05/14/25 05/15/25 16:19 16:35 07:28 Anion Gap 14 Estim Creat Clear Calc 51.9 49.2 Estimated GFR 54 51 POC Glucose 149 H Random Glucose 151 H Calcium 9.7 D Troponin I High Sens 5.6 D Random Vancomycin 10.4 L Microbiology Microbiology Results: Microbiology 05/12/25 17:17 Blood Culture - Preliminary Blood - Venous No growth after 48 hours. 05/12/25 17:17 Blood Culture - Preliminary Blood - Venous No growth after 48 hours. Assessment and Plan (1) Pneumonia: Status: Acute Plan Patient with PHx significant for COPD on home oxygen 2 L/min at nighttime, who presents with: Acute on chronic hypoxic respiratory failure due to COPD exacerbation. Telemetry. Pulse oximetry. Supplemental O2 to keep O2 sats > 90%. Continue bronchodilator therapy, IV antibiotic therapy with Zosyn and IV steroids. Incentive spirometry, chest physiotherapy Severe sepsis, likely secondary to above-improving. Continue empiric IV antibiotic therapy with Zosyn and vancomycin. Blood cultures negative at 24 hours ID evaluation. Acute lactic acidosis. Secondary to severe sepsis. Improving with the hydration. Essential hypertension. Back on Amlodipine and metoprolol . Burning sensation/nausea:? Dyspepsia versus reflux Given famotidine-seems to be improved significantly Continue Zofran p.r.n. for nausea EKG seems fine, added troponin levels. CKD stage 3A. Continue to monitor renal function. Avoid nephrotoxic agents. Creatinine is 1.3 Nephrology Evaluation RA. Prednisone Chronic wound, left lower extremity. Wound Care consult. Generalized weak: Evaluation Code status: Full DVT prophylaxis: SCDs only, allergic to heparin. ongoing need stay for acute on chronic hypoxic respiratory failure due to COPD exacerbation and sepsis treatment with IV antibiotics, IV steroids, supplemental oxygen and bronchodilator therapy. Quality Stroke Does the patient have a stroke diagnosis?: No VTE Prior VTE?: No VTE Risk Level:: Medical - moderate - high VTE Device Contraindication: Treatment Not Indicated VTE Drug Contraindication: N/A - Med Ordered
[2025-05-15] MEDS: Metoprolol Succinate ER 50 MG TAB.ER.24H PO (09:04)
[2025-05-15] MEDS: 0.9 % Sodium Chloride Flush 3 ML SYRINGE IVFLUSH ×3 (09:06→20:07)
--- NOTE | 2025-05-15 13:55 | PM.CNNEP ---
History of Present Illness Reason for Consult Consult date: 05/15/25 Reason for consult: CKD Chief Complaint Chief complaint: Acute hypoxic respiratory failure, pneumonia sepsi History of Present Illness Narrative: 79 years old man with past medical history significant for COPD on home oxygen 2 L/min at nighttime, essential hypertension, CKD stage 3A and RA on low dose prednisone was brought to the ED via EMS after he developed worsening shortness on breath associated with wheezing, cough, fever and chills. He denied chest pain or palpitations. Baseline creatinine is around 1.3. Admission creatinine 1.44. 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 Acute pulmonary embolism with acute cor pulmonale Acute pulmonary embolism Cardiac arrest CKD (chronic kidney disease) stage 3, GFR 30-59 ml/min Sjogren's disease Leg pain, bilateral Elevated serum creatinine COPD (chronic obstructive pulmonary disease) HTN (hypertension) Rheumatoid arthritis Chronic ulcer of leg Family History Family History Sister Breast cancer Father Aneurysm Mother Angina at rest Other No family history of coronary artery disease Surgical History Surgical History History of ankle surgery History of hernia repair History of left knee replacement Social History Social History Household Members: Spouse Housing: House Do you presently have visiting nurse or other home services: No Alcohol intake: current Alcohol intake frequency: does not drink Comment: restraints Patient Tobacco Use Status: Former Tobacco user Tobacco use type: Cigarette Cigarette Packs Per Day: 1 Years Smoked: quit 2018/ 30+ years e-Cigarette/Vaping Use: Never Used Second Hand Smoke Exposure: No Advance Directives Date on File: 12/23/21 service: No Current occupational status: retired Cognitive needs: Yes (cane) Hearing needs: No Vision needs: Yes (Pt wear glasses. 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 Verified 05/12/25 17:14 Active Medications: Current Medications Acetaminophen (Acetaminophen 325 Mg Tablet) 975 mg PO Q6H PRN PRN Reason: leg pain Last Admin: 05/15/25 09:06 Dose: 975 mg Albuterol Sulfate (Albuterol Sulfate (0.083%) 2.5 Mg/3 Ml Vial.Neb) 2.5 mg INHALE Q2H PRN PRN Reason: Shortness of Breath/Wheezing Albuterol/Ipratropium (Albuterol/Iprat 2.5/0.5mg 3 Ml Ampul.Neb) 3 ml INHALE RQ4H WHILE AWAKE [facility] Last Admin: 05/15/25 11:16 Dose: 3 ml Amlodipine Besylate (Amlodipine Besylate 2.5 Mg Tablet) 2.5 mg PO DAILY [facility]; Protocol Last Admin: 05/15/25 09:05 Dose: 2.5 mg Calcium Carbonate (Calcium Carbonate 750 Mg Tab.Chew) 750 mg PO Q4H PRN PRN Reason: Heartburn Last Admin: 05/14/25 17:45 Dose: 750 mg Duloxetine HCl (Duloxetine Hcl 20 Mg Capsule.Dr) 20 mg PO BEDTIME [facility] Last Admin: 05/14/25 20:27 Dose: 20 mg Famotidine (Famotidine 20 Mg Tablet) 20 mg PO DAILY [facility] Last Admin: 05/15/25 09:05 Dose: 20 mg Gabapentin (Gabapentin 600 Mg Tablet) 600 mg PO BID [facility] Last Admin: 05/15/25 09:04 Dose: 600 mg Hydromorphone HCl (Hydromorphone Hcl 2 Mg Tablet) 2 mg PO DAILY PRN PRN Reason: wound dressings/cleanings Last Admin: 05/14/25 13:05 Dose: 2 mg Piperacillin Sod/Tazobactam (Sod 3.375 gm/ Sodium Chloride) 50 mls @ 100 mls/hr IV Q6H [facility] Last Infusion: 05/15/25 13:14 Dose: Infused Vancomycin HCl 1,500 mg/ (Sodium Chloride) 500 mls @ 333.333 mls/hr IV Q24H [facility] Last Infusion: 05/14/25 19:48 Dose: Infused Doxycycline Hyclate 100 mg/ (Sodium Chloride) 250 mls @ 166.67 mls/hr IV Q12H [facility] Magnesium Hydroxide (Milk Of Magnesia 30 Ml Oral.Susp) 30 ml PO DAILY PRN PRN Reason: Constipation Melatonin (Melatonin 3 Mg Tablet) 6 mg PO BEDTIME PRN PRN Reason: Insomnia Metoprolol Succinate (Metoprolol Succinate Er 50 Mg Tab.Er.24h) 50 mg PO DAILY [facility]; Protocol Last Admin: 05/15/25 09:04 Dose: 50 mg Multivitamins/Vitamin C (Multivitamin Tablet) 1 tab PO DAILY [facility] Last Admin: 05/15/25 09:04 Dose: 1 tab Ondansetron HCl (Ondansetron Hcl 4 Mg/2 Ml Vial) 4 mg IVPUSH Q8H PRN PRN Reason: Nausea and Vomiting Last Admin: 05/15/25 00:49 Dose: 4 mg Pharmacy Consult (Consult Rx Vancomycin Dosing) 1 each MISCELLANE DAILY PRN PRN Reason: Consult order Prednisone (Prednisone 20 Mg Tablet) 40 mg PO DAILY [facility] Last Admin: 05/15/25 09:04 Dose: 40 mg Sodium Chloride (0.9 % Sodium Chloride Flush 3 Ml Syringe) 3 ml IVFLUSH QSHIFT [facility] Last Admin: 05/15/25 09:06 Dose: 3 ml Home Medications ?Medication ?Instructions ?Recorded ?Confirmed ?Last Taken ?Type acetaminophen 500 mg tablet 1,000 mg PO Q6H PRN Pain (Scale 10/30/21 05/13/25 05/12/25 08:00 History (Tylenol Extra Strength) Score 1-3) albuterol sulfate 90 mcg/actuation 2 puff inhalation Q6H PRN dyspnea 04/25/24 05/13/25 05/12/25 08:00 History aerosol inhaler fluticasone propionate 50 2 spray intranasal DAILY PRN 04/25/24 05/13/25 05/12/25 08:00 History mcg/actuation nasal allergies spray,suspension (Flonase Allergy Relief) prednisone 5 mg tablet 5 mg PO DAILY 03/30/25 05/13/25 05/12/25 08:00 History benfotiamine 150 mg capsule 300 mg PO DAILY 05/13/25 05/13/25 05/12/25 08:00 History hydromorphone 2 mg tablet 2 mg PO DAILY PRN wound 05/13/25 05/13/25 05/12/25 08:00 History dressings/cleanings multivitamin 1 tab PO DAILY 05/13/25 05/13/25 05/12/25 08:00 History Physical Exam Vital Signs: Last Vital Signs Temp 98.1 F 05/15/25 11:11 Pulse 84 05/15/25 11:19 Resp 18 05/15/25 11:19 BP 119/80 05/15/25 11:11 Pulse Ox 95 05/15/25 11:11 O2 Del Method Nasal Cannula 05/15/25 11:11 O2 Flow Rate 4 05/15/25 11:11 Oxygen Flow Rate 3 05/12/25 17:12 BMI result Body Mass Index 29.3 Comfortable Neck supple no JVD. Lungs entry equal no rales. Heart S1-S2 heard no gallop or rub. Abdomen soft nontender. Neuro alert awake oriented. No asterixis. Extremities no edema. Results Lab Results 05/13/25 03:26 05/15/25 07:28 Lab results: Chemistry 05/12/25 05/13/25 05/14/25 17:17 03:26 06:14 Sodium 143 141 Potassium 5.1 D 4.5 Carbon Dioxide 22 19 L BUN 19 H 17 H Creatinine 1.39 1.31 1.44 H Calcium 9.5 8.3 L D 05/14/25 05/15/25 16:35 07:28 Sodium 142 Potassium 4.2 Carbon Dioxide 24 BUN 20 H Creatinine 1.28 1.35 Calcium 9.7 D Hematology 05/12/25 05/13/25 17:17 03:26 WBC 8.1 9.5 Hgb 12.9 L 10.5 L Plt Count 373 296 Urinalysis 05/12/25 21:08 Urine Color Yellow Urine Appearance Clear Urine pH 5.0 Ur Specific [place] 1.015 Urine Protein Negative Urine Glucose (UA) Negative Urine Ketones Negative Urine Blood Negative Urine Nitrite Negative Ur Leukocyte Esterase Negative Assessment and Plan (1) HTN (hypertension): Status: Acute (2) Renal insufficiency: Status: Acute Plan Elderly man with CKD 3. Renal function is close to baseline. 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 Recent urine studies were bland without any significant proteinuria or hematuria. Goal is to maintain blood pressure less than 130/80 Can increase amlodipine if needed. Continue to avoid nephrotoxic agents. Shall follow along with the team. He will need outpatient follow up once discharged Procedures Date of Service Date of Service: 05/15/25
[2025-05-15 16:38] LABS: MRSA Nasal PCR NEGATIVE (Negative); SA Nasal PCR POSITIVE (Negative)
[2025-05-16] VITALS (7 sets, daily range): BP systolic 124–165; BP diastolic 70–87; PULSE 69–86; RESP 17–18; TEMP 36.5–36.9; O2SAT 91–94
--- NOTE | 2025-05-16 00:09 | P.CNID_ITS ---
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 Acute pulmonary embolism with acute cor pulmonale Acute pulmonary embolism Cardiac arrest CKD (chronic kidney disease) stage 3, GFR 30-59 ml/min Sjogren's disease Leg pain, bilateral Elevated serum creatinine COPD (chronic obstructive pulmonary disease) HTN (hypertension) Rheumatoid arthritis Chronic ulcer of leg Family History Family History Sister Breast cancer Father Aneurysm Mother Angina at rest Other No family history of coronary artery disease Family history: reviewed and not pertinent Surgical History Surgical History History of ankle surgery History of hernia repair History of left knee replacement Social History Social History Household Members: Spouse Housing: House Do you presently have visiting nurse or other home services: No Alcohol intake: current Alcohol intake frequency: does not drink Comment: restraints Patient Tobacco Use Status: Former Tobacco user Tobacco use type: Cigarette Cigarette Packs Per Day: 1 Years Smoked: quit + years e-Cigarette/Vaping Use: Never Used Second Hand Smoke Exposure: No Advance Directives Date on File: 12/23/21 service: No Current occupational status: retired Cognitive needs: Yes (cane) Hearing needs: No Vision needs: Yes (Pt wear glasses. 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 Verified 05/12/25 17:14 Active Medications: Current Medications Acetaminophen (Acetaminophen 325 Mg Tablet) 975 mg PO Q6H PRN PRN Reason: leg pain Last Admin: 05/15/25 09:06 Dose: 975 mg Albuterol Sulfate (Albuterol Sulfate (0.083%) 2.5 Mg/3 Ml Vial.Neb) 2.5 mg INHALE Q2H PRN PRN Reason: Shortness of Breath/Wheezing Albuterol/Ipratropium (Albuterol/Iprat 2.5/0.5mg 3 Ml Ampul.Neb) 3 ml INHALE RQ4H WHILE AWAKE [facility] Last Admin: 05/15/25 19:49 Dose: 3 ml Amlodipine Besylate (Amlodipine Besylate 2.5 Mg Tablet) 2.5 mg PO DAILY [facility]; Protocol Last Admin: 05/15/25 09:05 Dose: 2.5 mg Calcium Carbonate (Calcium Carbonate 750 Mg Tab.Chew) 750 mg PO Q4H PRN PRN Reason: Heartburn Last Admin: 05/14/25 17:45 Dose: 750 mg Duloxetine HCl (Duloxetine Hcl 20 Mg Capsule.Dr) 20 mg PO BEDTIME [facility] Last Admin: 05/15/25 20:06 Dose: 20 mg Famotidine (Famotidine 20 Mg Tablet) 20 mg PO DAILY [facility] Last Admin: 05/15/25 09:05 Dose: 20 mg Gabapentin (Gabapentin 600 Mg Tablet) 600 mg PO BID [facility] Last Admin: 05/15/25 20:07 Dose: 600 mg Hydromorphone HCl (Hydromorphone Hcl 2 Mg Tablet) 2 mg PO DAILY PRN PRN Reason: wound dressings/cleanings Last Admin: 05/15/25 14:13 Dose: 2 mg Piperacillin Sod/Tazobactam (Sod 3.375 gm/ Sodium Chloride) 50 mls @ 100 mls/hr IV Q6H [facility] Last Infusion: 05/15/25 20:03 Dose: Infused Vancomycin HCl 1,500 mg/ (Sodium Chloride) 500 mls @ 333.333 mls/hr IV Q24H [facility] [place] Last Infusion: 05/15/25 18:40 Dose: Infused Doxycycline Hyclate 100 mg/ (Sodium Chloride) 250 mls @ 166.67 mls/hr IV Q12H [facility] [place] Last Infusion: 05/15/25 15:56 Dose: Infused Magnesium Hydroxide (Milk Of Magnesia 30 Ml Oral.Susp) 30 ml PO DAILY PRN PRN Reason: Constipation Melatonin (Melatonin 3 Mg Tablet) 6 mg PO BEDTIME PRN PRN Reason: Insomnia Metoprolol Succinate (Metoprolol Succinate Er 50 Mg Tab.Er.24h) 50 mg PO DAILY [facility]; Protocol Last Admin: 05/15/25 09:04 Dose: 50 mg Multivitamins/Vitamin C (Multivitamin Tablet) 1 tab PO DAILY [facility] [place] Last Admin: 05/15/25 09:04 Dose: 1 tab Ondansetron HCl (Ondansetron Hcl 4 Mg/2 Ml Vial) 4 mg IVPUSH Q8H PRN PRN Reason: Nausea and Vomiting Last Admin: 05/15/25 00:49 Dose: 4 mg Pharmacy Consult (Consult Rx Vancomycin Dosing) 1 each MISCELLANE DAILY PRN PRN Reason: Consult order Prednisone (Prednisone 20 Mg Tablet) 40 mg PO DAILY [facility] [place] Last Admin: 05/15/25 09:04 Dose: 40 mg Sodium Chloride (0.9 % Sodium Chloride Flush 3 Ml Syringe) 3 ml IVFLUSH QSHIFT [facility] [place] Last Admin: 05/15/25 20:07 Dose: 3 ml Home Medications ?Medication ?Instructions ?Recorded ?Confirmed ?Last Taken ?Type acetaminophen 500 mg tablet 1,000 mg PO Q6H PRN Pain ( Scale 10/30/21 05/13/25 05/12/25 08:00 History (Tylenol Extra Strength) Score 1-3) albuterol sulfate 90 mcg/actuation 2 puff inhalation Q 6H PRN dyspnea 04/25/24 05/13/25 05/12/25 08:00 History aerosol inhaler fluticasone propionate 50 2 spray intranasal DAILY PRN 04/25/24 05/13/25 05/12/25 08:00 History mcg/actuation nasal allergies spray,suspension (Flonase Allergy Relief) prednisone 5 mg tablet 5 mg PO DAILY 03/30/2505/1305/12/25 08:00 History benfotiamine 150 mg capsule 300 mg PO DAILY 05/13/25 1 07/13/24 05/12/25 08:00 History hydromorphone 2 mg tablet 2 mg PO DAILY PRN wound 09/0505/13/25 05/12/25 08:00 History dressings/cleanings multivitamin 1 tab PO DAILY 05/13/2509/0505/12/25 08:00 History Physical Exam 2 Vital Signs: Vital Signs: Last Vital Signs Temp 97.8 F 05/15/25 23:11 Pulse 91 05/15/25 23:11 Resp 18 05/15/25 23:11 BP 133/81 05/15/25 23:11 Pulse Ox 92 05/15/25 23:11 O2 Del Method Nasal Cannula 05/15/25 23:11 O2 Flow Rate 2 05/15/25 23:11 Oxygen Flow Rate 3 05/12/25 17:12 BMI result Body Mass Index 29.3 Const: General: cooperative HEENT: Head: Yes normal to inspection Face and sinus: Yes normal facial exam Mouth: Normal oral and palatal mucosa present Teeth and gingiva: d entition normal Eyes: General: appearance normal, both eyes and all related structures P upils: Equal, round and reactive pupils present Resp: Other: rhonchi bases Effort & Inspection: normal respiratory effort Cardio: Rate: regular rate Rhythm: regular rhythm GI: Palpation (GI): Soft to palpation and nontender : General: Yes no CVA tenderness Back/Spine/Pelvis: Back: no CVA tenderness Skin: General skin exam: no rashes or lesions noted Neuro: General: moves all extremities Cranial nerves: Yes Equal, round and reactive pupils present Extrem: General: Yes normal to inspection Psych: Appearance: grossly normal Results Labs 05/13/25 03:26 05/15/25 07:28 Labs: BMP 05/15/25 07:28 Creatinine 1.35 Microbiology Microbiology Results: Microbiology 05/12/25 17:17 Blood - Venous Blood Culture - Preliminary No growth after 48 hours. 05/12/25 17:17 Blood - Venous Blood Culture - Preliminary No growth after 48 hours. Assessment and Plan (1) Severe sepsis: Status: Acute Plan Would treat pneumonia with Vancomycin Zosyn and Doxcycline. Check MRSA nasal swab. Stop Vancomycin if MRSA nasal negative. 3-5 d IV antibiotics and then possible finish with week Doxcycline po
[2025-05-16 07:26] LABS: Creatinine Clr Calc Pharmacy 49.9; Estimated Glomerular Filt Rate 52
[2025-05-16] MEDS: 0.9 % Sodium Chloride Flush 3 ML SYRINGE IVFLUSH (07:47)
[2025-05-16] MEDS: Metoprolol Succinate ER 50 MG TAB.ER.24H PO (07:47)
[2025-05-16] MEDS: Albuterol/Iprat 2.5/0.5MG 3 ML AMPUL.NEB INHALE ×4 (07:55→21:03)
--- NOTE | 2025-05-16 13:12 | HO.PM.IMPN ---
Subjective Subjective Date of Service: 05/16/25 Interval History: improving, still sob and weak Physical Exam Vital Signs: Vital Signs: Last Vital Signs Temp 98.1 F 05/16/25 12:00 Pulse 78 05/16/25 12:00 Resp 18 05/16/25 12:00 BP 140/85 H 05/16/25 12:00 Pulse Ox 92 05/16/25 12:00 O2 Del Method Nasal Cannula 05/16/25 12:00 O2 Flow Rate 2.5 05/16/25 12:00 Oxygen Flow Rate 3 05/12/25 17:12 BMI result Body Mass Index 29.3 Const: General: cooperative HEENT: Head: Yes normal to inspection Face and sinus: Yes normal facial exam Mouth: Normal oral and palatal mucosa present Teeth and gingiva: dentition normal Eyes: General: appearance normal, both eyes and all related structures Pupils: Equal, round and reactive pupils present Resp: Other: rhonchi bases Effort & Inspection: normal respiratory effort Cardio: Rate: regular rate Rhythm: regular rhythm GI: Palpation (GI): Soft to palpation and nontender : General: Yes no CVA tenderness Back/Spine/Pelvis: Back: no CVA tenderness Skin: General skin exam: no rashes or lesions noted Neuro: General: moves all extremities Cranial nerves: Yes Equal, round and reactive pupils present Extrem: General: Yes normal to inspection Psych: Appearance: grossly normal Objective Data Active Medications Acetaminophen (Acetaminophen 325 Mg Tablet) 975 mg PO Q6H PRN PRN Reason: leg pain Last Admin: 05/15/25 09:06 Dose: 975 mg Documented By: MICHEL Albuterol Sulfate (Albuterol Sulfate (0.083%) 2.5 Mg/3 Ml Vial.Neb) 2.5 mg INHALE Q2H PRN PRN Reason: Shortness of Breath/Wheezing Albuterol/Ipratropium (Albuterol/Iprat 2.5/0.5mg 3 Ml Ampul.Neb) 3 ml INHALE RQ4H WHILE AWAKE [facility] Last Admin: 05/16/25 11:21 Dose: 3 ml Documented By: TOO Amlodipine Besylate (Amlodipine Besylate 2.5 Mg Tablet) 2.5 mg PO DAILY [facility]; Protocol Last Admin: 05/16/25 07:46 Dose: 2.5 mg Documented By: SCOUT Calcium Carbonate (Calcium Carbonate 750 Mg Tab.Chew) 750 mg PO Q4H PRN PRN Reason: Heartburn Last Admin: 05/14/25 17:45 Dose: 750 mg Documented By: NINA Duloxetine HCl (Duloxetine Hcl 20 Mg Capsule.Dr) 20 mg PO BEDTIME [facility] Last Admin: 05/15/25 20:06 Dose: 20 mg Documented By: LOURDES Famotidine (Famotidine 20 Mg Tablet) 20 mg PO DAILY [facility] Last Admin: 05/16/25 07:45 Dose: 20 mg Documented By: SCOUT Gabapentin (Gabapentin 600 Mg Tablet) 600 mg PO BID [facility] Last Admin: 05/16/25 07:46 Dose: 600 mg Documented By: SCOUT Hydromorphone HCl (Hydromorphone Hcl 2 Mg Tablet) 2 mg PO DAILY PRN PRN Reason: wound dressings/cleanings Last Admin: 05/16/25 02:25 Dose: 2 mg Documented By: LOURDES Piperacillin Sod/Tazobactam (Sod 3.375 gm/ Sodium Chloride) 50 mls @ 100 mls/hr IV Q6H [facility] Last Infusion: 05/16/25 08:18 Dose: Infused Documented By: SCOUT Doxycycline Hyclate 100 mg/ (Sodium Chloride) 250 mls @ 166.67 mls/hr IV Q12H [facility] Last Infusion: 05/16/25 03:20 Dose: Infused Documented By: LOURDES Magnesium Hydroxide (Milk Of Magnesia 30 Ml Oral.Susp) 30 ml PO DAILY PRN PRN Reason: Constipation Melatonin (Melatonin 3 Mg Tablet) 6 mg PO BEDTIME PRN PRN Reason: Insomnia Metoprolol Succinate (Metoprolol Succinate Er 50 Mg Tab.Er.24h) 50 mg PO DAILY [facility]; Protocol Last Admin: 05/16/25 07:47 Dose: 50 mg Documented By: SCOUT Multivitamins/Vitamin C (Multivitamin Tablet) 1 tab PO DAILY [facility] Last Admin: 05/16/25 07:47 Dose: 1 tab Documented By: SCOUT Ondansetron HCl (Ondansetron Hcl 4 Mg/2 Ml Vial) 4 mg IVPUSH Q8H PRN PRN Reason: Nausea and Vomiting Last Admin: 05/15/25 00:49 Dose: 4 mg Documented By: LOURDES Prednisone (Prednisone 20 Mg Tablet) 40 mg PO DAILY [facility] Last Admin: 05/16/25 07:47 Dose: 40 mg Documented By: SCOUT Sodium Chloride (0.9 % Sodium Chloride Flush 3 Ml Syringe) 3 ml IVFLUSH QSHIFT [facility] Last Admin: 05/16/25 07:47 Dose: 3 ml Documented By: SCOUT Labs 05/13/25 03:26 05/16/25 06:33 Labs: Laboratory Results - last 24 hr 05/15/25 05/15/25 05/16/25 14:52 15:55 06:33 Estim Creat Clear Calc 49.9 Estimated GFR 52 Nasal Screen MRSA (PCR) NEGATIVE Nasal S. aureus Screen POSITIVE A Nasal MRSA/S.aureus Interp SEE NOTE Random Vancomycin 13.0 L Assessment and Plan (1) Hypoxia: Status: Acute Plan 79M PMH COPD with nocturnal hypoxia on 2L, htn, CKD III, RA on chornic low dose prednisone, heparin induced thrombocytopenia, HTN, mood disorder, cardiac arrest and history of PE 2021 no longer on AC, presented with fever and AMS sepsis and acute metabolic encephalopathy and acute hypoxic respiratory failrue due to presumed pneumonia and copd with acute decopmensation ID appreciated will continue another day iv zosyn and doxy vanc discontinued as mrsa swab negative on dc po doxy continue prednisone CKD III stable RA prednisone dvt prophylaxis -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
--- NOTE | 2025-05-16 13:39 | MHC.CM.PN ---
Pt not ready to DC, he requires continue acute care for weaning O2 and IVABX.
--- NOTE | 2025-05-16 13:54 | MHC.CM.PN ---
EMR REVIEWED AND PER MD ROUNDS, PATIENT IS NOT MEDICALLY CLEARED FOR DISCHARGE TODAY DUE TO MANAGEMENT OF SEPSIS/PNA, REQUIRING ONE MORE DAY OF IV ABX. DP: HOME WITH NEW [facility] FOR WOUND CARE, AND ORAL ABX VIA 'S TRANSPORT HOME.
--- NOTE | 2025-05-16 14:57 | HO.WOUND ---
Wound Consult: Initial 79 yr old male admitted to [facility] on 05/12/25- See progress notes and H&P for detailed history. Wound consult placed for left leg wound. Patient agreeable to assessment and photo documentation. at bedside, patient and gave history of wound. It has been present for about 4 years, he has had vascular procedures done to left leg. he reports wounds to the right leg that have healed. He believes wounds are related to agent orange exposure while in the . Patient is followed by [facility] outpatient wound center every other week, they report trying many different treatments including skin substitutes, and biopsies have been done. They report overall improvement in the wound in the last 4 years, however, they have been using the same treatment for the last year due to increase pain. He reports going to a pain clinic with some good results. Patient with palpable pulses, hemosiderin staining to both legs. minimal edema noted - patient reports not wearing compression due to pain. Wound is stable at this time, will continue current home/wound care dressing with cuticerin oil emulsion dressing, durafiber ag. Left lateral lower leg/ankle 05/14/25 Left lateral lower leg/ankle 05/16/25 Etiology: venous stasis ulcer Measurements: 10cm x 5cm x 0.3cm Wound Bed: moist pale pink/white Drainage / Odor: scant serous Edges: ? open Kaelyn wound: ? No Induration, Fluctuance or Warmth noted - scar tissue Pain: yes Goals of Treatment: ? maintain stable wound with current dressing Right medial leg Right lateral leg Recommendations: 1. Turn and Reposition every 2 hours and as needed for patient comfort. Use pillows or wedges to support off loading positions. 2. Off Load all bony prominences with use of pillows and heel boots if needed. Apply Preventative foams where needed. 3. Monitor for incontinence and moisture control, use barrier creams when needed for prevention and treatment. 4. Provide adequate and supplemental nutrition. 5. Order or Continue low air loss mattress. 6. When applicable maintain blood glucose levels per Providers order. Left lateral lower leg: cleanse with saline, pat dry, apply cuticerin/curad oil emulsion dressing, cover with durafiber ag, followed by ABD pad and kerlix, change daily and PRN Re-consult wound care Nurse for wound deterioration or wound changes.
--- NOTE | 2025-05-16 14:58 | HO.WOUND ---
Wound Consult: Initial 79 yr old male admitted to [facility] on 05/12/25- See progress notes and H&P for detailed history. Wound consult placed for left leg wound. Patient agreeable to assessment and photo documentation. at bedside for initial assessment, patient and gave history of wound. It has been present for about 4 years, he has had vascular procedures done to left leg. he reports wounds to the right leg that have healed. He believes wounds are related to agent orange exposure while in the . Patient is followed by [facility] outpatient wound center every other week, they report trying many different treatments including skin substitutes, and biopsies have been done. They report overall improvement in the wound in the last 4 years, however, they have been using the same treatment for the last year due to increase pain. He reports going to a pain clinic with some good results. Patient with palpable pulses, hemosiderin staining to both legs. minimal edema noted - patient reports not wearing compression due to pain. Wound is stable at this time, will continue current home/wound care dressing with cuticerin oil emulsion dressing, durafiber ag. Today, patient sitting up in chair, was pre-medicated for pain for dressing change - dressing change completed with direct care RN today- wound slightly improved with more pink tissue. Left lateral lower leg/ankle 05/14/25 Left lateral lower leg/ankle 05/16/25 Etiology: venous stasis ulcer Measurements: 10cm x 5cm x 0.3cm Wound Bed: moist pale pink/white Drainage / Odor: scant serous Edges: ? open Kaelyn wound: ? No Induration, Fluctuance or Warmth noted - scar tissue Pain: yes Goals of Treatment: ? maintain stable wound with current dressing Right medial leg Right lateral leg Recommendations: 1. Turn and Reposition every 2 hours and as needed for patient comfort. Use pillows or wedges to support off loading positions. 2. Off Load all bony prominences with use of pillows and heel boots if needed. Apply Preventative foams where needed. 3. Monitor for incontinence and moisture control, use barrier creams when needed for prevention and treatment. 4. Provide adequate and supplemental nutrition. 5. Order or Continue low air loss mattress. 6. When applicable maintain blood glucose levels per Providers order. Left lateral lower leg: cleanse with saline, pat dry, apply cuticerin/curad oil emulsion dressing, cover with durafiber ag, followed by ABD pad and michel, change daily and PRN Re-consult wound care Nurse for wound deterioration or wound changes.
--- NOTE | 2025-05-16 16:27 | P.PNNP_ITS ---
Subjective Subjective Date of Service: 05/16/25 Interval history: improving, still sob and weak Physical Exam 2 Vital Signs: Vital Signs: Last Vital Signs Temp 97.8 F 05/16/25 15:50 Pulse 82 05/16/25 15:50 Resp 18 05/16/25 15:50 BP 124/75 05/16/25 15:50 Pulse Ox 91 L 05/16/25 15:50 O2 Del Method Nasal Cannula 05/16/25 15:50 O2 Flow Rate 3.5 05/16/25 15:50 Oxygen Flow Rate 3 05/12/25 17:12 BMI result Body Mass Index 29.3 Comfortable Neck supple no JVD. Lungs entry equal no rales. Heart S1-S2 heard no gallop or rub. Abdomen soft nontender. Neuro alert awake oriented. No asterixis. Extremities no edema. Objective Data Labs 05/13/25 03:26 05/16/25 06:33 Labs: Laboratory Results - last 24 hr 05/15/25 05/15/25 05/16/25 14:52 15:55 06:33 Creatinine 1.33 Estim Creat Clear Calc 49.9 Estimated GFR 52 Nasal Screen MRSA (PCR) NEGATIVE Nasal S. aureus Screen POSITIVE A Nasal MRSA/S.aureus Interp SEE NOTE Random Vancomycin 13.0 L Microbiology Microbiology Results: Microbiology 05/12/25 17:17 Blood - Venous Blood Culture - Preliminary No growth after 48 hours. 05/12/25 17:17 Blood - Venous Blood Culture - Preliminary No growth after 48 hours. Procedures Date of Service Date of Service: 05/16/25 Assessment & Plan Assessment and plan (1) CKD (chronic kidney disease) stage 3, GFR 30-59 ml/min: Status: Inactive Plan 1. Acute kidney injury, superimposed on chronic kidney disease. 2. Chronic leg ulcers. 3. Rheumatoid arthritis. 4. Acute kidney injury mostly related to volume depletion.? . Ua- No hematuria or protineria RECOMMENDATION:? .? Keep intake more than the output.? Renal function close to baseline Time Spent With Patient Time: Total time managing care of this patient today ____ minutes. Progress Note: Quality Stroke Does the patient have a stroke diagnosis?: No
[2025-05-17] VITALS (11 sets, daily range): BP systolic 132–175; BP diastolic 78–90; PULSE 68–88; RESP 16–24; TEMP 36.3–37; O2SAT 88–96
[2025-05-17] MEDS: 0.9 % Sodium Chloride Flush 3 ML SYRINGE IVFLUSH ×2 (00:34→08:00)
--- NOTE | 2025-05-17 04:28 | PC.NURSE ---
12 beat run narrow complexes while awake in semi fowlers. denies SOB or CP; mentation and VS stable. MD aware. no further orders from physician. call crane in reach, patient is pleasant
[2025-05-17 07:22] LABS: Hematocrit 37.7 % (42.0-52.0); Hemoglobin 11.3 g/dl (14.0-18.0); Mean Corpuscular HGB Conc 30.0 g/dl (31.0-36.0); Mean Corpuscular Hemoglobin 24.0 pg (27.0-33.0); Mean Corpuscular Volume 80.0 fL (80.0-98.0); NRBC Abs Auto 0.030 X10*3/uL (0.0-0.012); NRBC Pct Auto 0.3 /100WBC (0.0-0.2); Platelet Count 331 X10*3/uL (160-400); Red Blood Count 4.71 X10*6/uL (4.60-5.80); White Blood Count 10.4 X10*3/uL (4.8-10.8)
[2025-05-17 07:32] LABS: Alanine Aminotransferase 52 U/L (0-40); Albumin Level 3.5 g/dL (3.5-5.0); Alkaline Phosphatase 62 U/L (39-117); Anion Gap 12 (12-20); Aspartate Amino Transferase 21 U/L (5-37); Blood Urea Nitrogen 21 mg/dL (9-16); Calcium 9.3 mg/dL (8.4-10.2); Carbon Dioxide 25 mmol/L (22-29); Chloride 108 mmol/L (96-108); Creatinine Clr Calc Pharmacy 53.5; Estimated Glomerular Filt Rate 56; Magnesium 1.9 mg/dL (1.6-2.6); Potassium 4.1 mmol/L (3.3-5.1); Sodium 141 mmol/L (135-145); Total Protein 6.4 g/dL (6.5-8.0)
[2025-05-17] MEDS: Albuterol/Iprat 2.5/0.5MG 3 ML AMPUL.NEB INHALE ×4 (07:57→18:51)
[2025-05-17] MEDS: Metoprolol Succinate ER 50 MG TAB.ER.24H PO (07:59)
--- NOTE | 2025-05-17 11:56 | HO.PM.IMPN ---
Subjective Subjective Date of Service: 05/17/25 Interval History: increased o2 requirements Physical Exam Vital Signs: Vital Signs: Last Vital Signs Temp 97.6 F 05/17/25 07:26 Pulse 76 05/17/25 11:35 Resp 18 05/17/25 11:35 BP 175/80 H 05/17/25 07:26 Pulse Ox 88 L 05/17/25 07:26 O2 Del Method Nasal Cannula 05/17/25 07:26 O2 Flow Rate 3.5 05/17/25 07:26 Oxygen Flow Rate 3 05/12/25 17:12 BMI result Body Mass Index 29.3 Comfortable Neck supple no JVD. Lungs entry equal no rales. Heart S1-S2 heard no gallop or rub. Abdomen soft nontender. Neuro alert awake oriented. No asterixis. Extremities no edema. Objective Data Active Medications Acetaminophen (Acetaminophen 325 Mg Tablet) 975 mg PO Q6H PRN PRN Reason: leg pain Last Admin: 05/16/25 19:55 Dose: 975 mg Documented By: CHELA Albuterol Sulfate (Albuterol Sulfate (0.083%) 2.5 Mg/3 Ml Vial.Neb) 2.5 mg INHALE Q2H PRN PRN Reason: Shortness of Breath/Wheezing Albuterol/Ipratropium (Albuterol/Iprat 2.5/0.5mg 3 Ml Ampul.Neb) 3 ml INHALE RQ4H WHILE AWAKE [facility] Last Admin: 05/17/25 11:33 Dose: 3 ml Documented By: TOO Amlodipine Besylate (Amlodipine Besylate 2.5 Mg Tablet) 2.5 mg PO DAILY [facility]; Protocol Last Admin: 05/17/25 07:59 Dose: 2.5 mg Documented By: SCOUT Calcium Carbonate (Calcium Carbonate 750 Mg Tab.Chew) 750 mg PO Q4H PRN PRN Reason: Heartburn Last Admin: 05/14/25 17:45 Dose: 750 mg Documented By: NINA Duloxetine HCl (Duloxetine Hcl 20 Mg Capsule.Dr) 20 mg PO BEDTIME [facility] Last Admin: 05/16/25 20:59 Dose: 20 mg Documented By: CHELA Famotidine (Famotidine 20 Mg Tablet) 20 mg PO DAILY [facility] Last Admin: 05/17/25 07:59 Dose: 20 mg Documented By: SCOUT Gabapentin (Gabapentin 600 Mg Tablet) 600 mg PO BID [facility] Last Admin: 05/17/25 07:59 Dose: 600 mg Documented By: SCOUT Hydromorphone HCl (Hydromorphone Hcl 2 Mg Tablet) 2 mg PO DAILY PRN PRN Reason: wound dressings/cleanings Last Admin: 05/16/25 13:42 Dose: 2 mg Documented By: SCOUT Comments: given for wound care Piperacillin Sod/Tazobactam (Sod 3.375 gm/ Sodium Chloride) 50 mls @ 100 mls/hr IV Q6H [facility] Last Infusion: 05/17/25 08:56 Dose: Infused Documented By: SCOUT Doxycycline Hyclate 100 mg/ (Sodium Chloride) 250 mls @ 166.67 mls/hr IV Q12H [facility] Last Infusion: 05/17/25 04:59 Dose: Infused Documented By: CHELA Magnesium Hydroxide (Milk Of Magnesia 30 Ml Oral.Susp) 30 ml PO DAILY PRN PRN Reason: Constipation Melatonin (Melatonin 3 Mg Tablet) 6 mg PO BEDTIME PRN PRN Reason: Insomnia Metoprolol Succinate (Metoprolol Succinate Er 50 Mg Tab.Er.24h) 50 mg PO DAILY [facility]; Protocol Last Admin: 05/17/25 07:59 Dose: 50 mg Documented By: SCOUT Multivitamins/Vitamin C (Multivitamin Tablet) 1 tab PO DAILY [facility] Last Admin: 05/17/25 07:59 Dose: 1 tab Documented By: SCOUT Ondansetron HCl (Ondansetron Hcl 4 Mg/2 Ml Vial) 4 mg IVPUSH Q8H PRN PRN Reason: Nausea and Vomiting Last Admin: 05/15/25 00:49 Dose: 4 mg Documented By: LOURDES Prednisone (Prednisone 20 Mg Tablet) 40 mg PO DAILY [facility] Last Admin: 05/17/25 07:58 Dose: 40 mg Documented By: SCOUT Sodium Chloride (0.9 % Sodium Chloride Flush 3 Ml Syringe) 3 ml IVFLUSH QSHIFT [facility] Last Admin: 05/17/25 08:00 Dose: 3 ml Documented By: SCOUT Labs 05/17/25 07:07 05/17/25 07:07 Labs: Laboratory Results - last 24 hr 05/17/25 07:07 MCV 80.0 MCH 24.0 L MCHC 30.0 L RDW 19.7 H Plt Count 331 MPV 8.7 L Absolute Nucleated RBC 0.030 H Nucleated RBC % (auto) 0.3 H Anion Gap 12 Estim Creat Clear Calc 53.5 Estimated GFR 56 Random Glucose 113 Calcium 9.3 Magnesium 1.9 Total Bilirubin 0.3 Direct Bilirubin 0.1 AST 21 ALT 52 H Alkaline Phosphatase 62 Total Protein 6.4 L Albumin 3.5 Assessment and Plan (1) Hypoxia: Status: Acute Plan 79M PMH COPD with nocturnal hypoxia on 2L, htn, CKD III, RA on chornic low dose prednisone, heparin induced thrombocytopenia, HTN, mood disorder, cardiac arrest and history of PE 2021 no longer on AC, presented with fever and AMS sepsis and acute metabolic encephalopathy and acute hypoxic respiratory failrue due to presumed pneumonia and copd with acute decopmensation ID appreciated will continue iv zosyn and doxy while inpatient vanc discontinued as mrsa swab negative on dc po doxy continue prednisone check ct chest CKD III stable RA prednisone dvt prophylaxis -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
--- NOTE | 2025-05-17 12:44 | P.PNNP_ITS ---
Subjective Subjective Date of Service: 05/17/25 Interval history: Events noted. Feels better. Increased oxygen requirement Physical Exam 2 Vital Signs: Vital Signs: Last Vital Signs Temp 97.8 F 05/17/25 12:00 Pulse 73 05/17/25 12:00 Resp 18 05/17/25 12:00 BP 148/78 H 05/17/25 12:00 Pulse Ox 94 05/17/25 12:00 O2 Del Method Nasal Cannula 05/17/25 12:00 O2 Flow Rate 2 05/17/25 12:00 Oxygen Flow Rate 3 05/12/25 17:12 BMI result Body Mass Index 29.3 Comfortable Neck supple no JVD. Lungs entry equal no rales. Heart S1-S2 heard no gallop or rub. Abdomen soft nontender. Neuro alert awake oriented. No asterixis. Extremities no edema. Objective Data Labs 05/17/25 07:07 05/17/25 07:07 Labs: Laboratory Results - last 24 hr 05/17/25 07:07 WBC 10.4 RBC 4.71 Hgb 11.3 L Hct 37.7 L MCV 80.0 MCH 24.0 L MCHC 30.0 L RDW 19.7 H Plt Count 331 MPV 8.7 L Absolute Nucleated RBC 0.030 H Nucleated RBC % (auto) 0.3 H Sodium 141 Potassium 4.1 Chloride 108 Carbon Dioxide 25 Anion Gap 12 BUN 21 H Creatinine 1.24 Estim Creat Clear Calc 53.5 Estimated GFR 56 Random Glucose 113 Calcium 9.3 Magnesium 1.9 Total Bilirubin 0.3 Direct Bilirubin 0.1 AST 21 ALT 52 H Alkaline Phosphatase 62 Total Protein 6.4 L Albumin 3.5 Microbiology Microbiology Results: Microbiology 05/12/25 17:17 Blood - Venous Blood Culture - Preliminary No growth after 48 hours. 05/12/25 17:17 Blood - Venous Blood Culture - Preliminary No growth after 48 hours. Procedures Date of Service Date of Service: 05/17/25 Assessment & Plan Assessment and plan (1) CKD (chronic kidney disease) stage 3, GFR 30-59 ml/min: Status: Inactive Plan 1. Acute kidney injury, superimposed on chronic kidney disease. 2. Chronic leg ulcers. 3. Rheumatoid arthritis. 4. Acute kidney injury mostly related to volume depletion.? . Ua- No hematuria or protineria RECOMMENDATION:? .? Keep intake more than the output.? Renal function close to baseline Shall arrange for outpatient follow up once discharged Time Spent With Patient Time: Total time managing care of this patient today ____ minutes. Progress Note: Quality Stroke Does the patient have a stroke diagnosis?: No
--- NOTE | 2025-05-17 20:24 | PC.NURSE ---
patient alerted this nurse of abdominal distension worsening today and disocmfort/pressure on left side, tenderness to palpation to LUQ and epigastric. no n/v. ate half of dinner. passing flatus. worse with coughing. BS seem slightly hypoactive on left. MD notified, CT ordered, NPO diet for now
[2025-05-17] MEDS: iohexoL 350 MG/ML 100 ML INFUS..BTL IV (20:46)
--- NOTE | 2025-05-17 21:21 | PC.NURSE ---
states left abd pain is not bothering me. stable in bed, took pills
--- NOTE | 2025-05-17 22:47 | PC.NURSE ---
no longer NPO per MD Arthur
[2025-05-18] VITALS (10 sets, daily range): BP systolic 133–162; BP diastolic 75–94; PULSE 70–88; RESP 16–20; TEMP 36.2–37; O2SAT 91–93
[2025-05-18 07:04] LABS: Hematocrit 42.9 % (42.0-52.0); Hemoglobin 12.8 g/dl (14.0-18.0); Mean Corpuscular HGB Conc 29.8 g/dl (31.0-36.0); Mean Corpuscular Hemoglobin 24.1 pg (27.0-33.0); Mean Corpuscular Volume 80.8 fL (80.0-98.0); NRBC Abs Auto 0.020 X10*3/uL (0.0-0.012); NRBC Pct Auto 0.2 /100WBC (0.0-0.2); Platelet Count 392 X10*3/uL (160-400); Red Blood Count 5.31 X10*6/uL (4.60-5.80); White Blood Count 12.8 X10*3/uL (4.8-10.8)
[2025-05-18 07:18] LABS: Anion Gap 14 (12-20); Blood Urea Nitrogen 20 mg/dL (9-16); Calcium 10.0 mg/dL (8.4-10.2); Carbon Dioxide 26 mmol/L (22-29); Chloride 105 mmol/L (96-108); Creatinine Clr Calc Pharmacy 50.3; Estimated Glomerular Filt Rate 52; Potassium 3.8 mmol/L (3.3-5.1); Sodium 141 mmol/L (135-145)
[2025-05-18] MEDS: Albuterol/Iprat 2.5/0.5MG 3 ML AMPUL.NEB INHALE ×3 (07:37→19:25)
[2025-05-18] MEDS: Metoprolol Succinate ER 50 MG TAB.ER.24H PO (08:32)
[2025-05-18] MEDS: 0.9 % Sodium Chloride Flush 3 ML SYRINGE IVFLUSH ×2 (08:33→17:16)
--- NOTE | 2025-05-18 10:17 | HO.PM.IMPN ---
Subjective Subjective Date of Service: 05/18/25 Interval History: abd discomfort and bloating Physical Exam Exam: Exam: General: AO X 3, no acute distress Resp: diminished bilateral, no accessory muscles used CVS: S1,S2,RRR GI: soft, non tender, distended Neuro: motor grossly intact, alert Psych: appropriate affect, appropriate insight Vital Signs: Vital Signs: Last Vital Signs Temp 97.9 F 05/18/25 07:14 Pulse 75 05/18/25 07:38 Resp 18 05/18/25 07:38 BP 161/79 H 05/18/25 07:14 Pulse Ox 93 05/18/25 07:14 O2 Del Method Nasal Cannula 05/18/25 07:14 O2 Flow Rate 2 05/18/25 07:14 Oxygen Flow Rate 3 05/12/25 17:12 BMI result Body Mass Index 29.3 Objective Data Active Medications Acetaminophen (Acetaminophen 325 Mg Tablet) 975 mg PO Q6H PRN PRN Reason: leg pain Last Admin: 05/16/25 19:55 Dose: 975 mg Documented By: CHELA Albuterol Sulfate (Albuterol Sulfate (0.083%) 2.5 Mg/3 Ml Vial.Neb) 2.5 mg INHALE Q2H PRN PRN Reason: Shortness of Breath/Wheezing Albuterol/Ipratropium (Albuterol/Iprat 2.5/0.5mg 3 Ml Ampul.Neb) 3 ml INHALE RQ4H WHILE AWAKE [facility] Last Admin: 05/18/25 07:37 Dose: 3 ml Documented By: TOO Amlodipine Besylate (Amlodipine Besylate 2.5 Mg Tablet) 2.5 mg PO DAILY [facility]; Protocol Last Admin: 05/18/25 08:31 Dose: 2.5 mg Documented By: SIXTO Calcium Carbonate (Calcium Carbonate 750 Mg Tab.Chew) 750 mg PO Q4H PRN PRN Reason: Heartburn Last Admin: 05/18/25 02:22 Dose: 750 mg Documented By: CHELA Duloxetine HCl (Duloxetine Hcl 20 Mg Capsule.Dr) 20 mg PO BEDTIME [facility] Last Admin: 05/17/25 21:20 Dose: 20 mg Documented By: CHELA Famotidine (Famotidine 20 Mg Tablet) 20 mg PO DAILY [facility] Last Admin: 05/18/25 08:31 Dose: 20 mg Documented By: SIXTO Gabapentin (Gabapentin 600 Mg Tablet) 600 mg PO BID [facility] Last Admin: 05/18/25 08:32 Dose: 600 mg Documented By: SIXTO Hydromorphone HCl (Hydromorphone Hcl 2 Mg Tablet) 2 mg PO DAILY PRN PRN Reason: wound dressings/cleanings Last Admin: 05/17/25 14:16 Dose: 2 mg Documented By: SCOUT Comments: per patient request for wound care Doxycycline Hyclate 100 mg/ (Sodium Chloride) 250 mls @ 166.67 mls/hr IV Q12H [facility] Last Infusion: 05/18/25 04:45 Dose: Infused Documented By: CHELA Piperacillin Sod/Tazobactam (Sod 3.375 gm/ Sodium Chloride) 50 mls @ 100 mls/hr IV Q6H [facility] Last Infusion: 05/18/25 09:05 Dose: Infused Documented By: SIXTO Magnesium Hydroxide (Milk Of Magnesia 30 Ml Oral.Susp) 30 ml PO DAILY PRN PRN Reason: Constipation Melatonin (Melatonin 3 Mg Tablet) 6 mg PO BEDTIME PRN PRN Reason: Insomnia Metoclopramide HCl (Metoclopramide Hcl 10 Mg/2 Ml Vial) 5 mg IVPUSH TIDAC [facility] Metoprolol Succinate (Metoprolol Succinate Er 50 Mg Tab.Er.24h) 50 mg PO DAILY [facility]; Protocol Last Admin: 05/18/25 08:32 Dose: 50 mg Documented By: SIXTO Multivitamins/Vitamin C (Multivitamin Tablet) 1 tab PO DAILY [facility] Last Admin: 05/18/25 08:32 Dose: 1 tab Documented By: SIXTO Ondansetron HCl (Ondansetron Hcl 4 Mg/2 Ml Vial) 4 mg IVPUSH Q8H PRN PRN Reason: Nausea and Vomiting Last Admin: 05/18/25 05:26 Dose: 4 mg Documented By: CHELA Pantoprazole Sodium (Pantoprazole Sodium 40 Mg/10 Ml Vial) 40 mg IVPUSH DAILY@0630 [facility] Prednisone (Prednisone 20 Mg Tablet) 40 mg PO DAILY [facility] Last Admin: 05/18/25 08:31 Dose: 40 mg Documented By: SIXTO Simethicone (Simethicone 80 Mg Tab.Chew) 80 mg PO QIDWMHS PRN PRN Reason: Gas Last Admin: 05/17/25 23:35 Dose: 80 mg Documented By: CHELA Sodium Chloride (0.9 % Sodium Chloride Flush 3 Ml Syringe) 3 ml IVFLUSH QSHIFT [facility] Last Admin: 05/18/25 08:33 Dose: 3 ml Documented By: SIXTO Labs 05/18/25 06:38 05/18/25 06:38 Labs: Laboratory Results - last 24 hr 05/18/25 06:38 MCV 80.8 MCH 24.1 L MCHC 29.8 L RDW 20.1 H Plt Count 392 MPV 8.8 L Absolute Nucleated RBC 0.020 H Nucleated RBC % (auto) 0.2 Anion Gap 14 Estim Creat Clear Calc 50.3 Estimated GFR 52 Random Glucose 140 H Calcium 10.0 D Microbiology Microbiology Results: Microbiology 05/12/25 17:17 Blood Culture - Final Blood - Venous No growth after 5 days. 05/12/25 17:17 Blood Culture - Final Blood - Venous No growth after 5 days. Assessment and Plan (1) Hypoxia: Status: Acute Plan 79M PMH COPD with nocturnal hypoxia on 2L, htn, CKD III, RA on chornic low dose prednisone, heparin induced thrombocytopenia, HTN, mood disorder, cardiac arrest and history of PE 2021 no longer on AC, presented with fever and AMS sepsis and acute metabolic encephalopathy and acute hypoxic respiratory failrue due to presumed pneumonia and copd with acute decopmensation ID appreciated will continue iv zosyn and doxy while inpatient vanc discontinued as mrsa swab negative on dc po doxy continue prednisone abdominal distension and discomfort reglan, dulcolax no obstruction on CT CKD III stable RA prednisone 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
--- NOTE | 2025-05-18 10:28 | MHC.CM.PN ---
Per ROUNDS discussion, Patient is not yet medically cleared for dc (Abdominal pain & white count rising); home with services is the recommendation and CM will continue to follow.
--- NOTE | 2025-05-18 11:34 | P.CDIM_ITS ---
PROVIDER RESPONSE TEXT: To clarify, the appropriate diagnosis supported by the clinical indicators: Venous stasis ulcer left lower leg QUERY TEXT: PHYSICIAN'S DOCUMENTATION REQUEST Date of Query: 05/18/2025 11:18 AM EST Patient Name: Sarath Gipson Admit Date: 05/13/2025 Dear Master Stock MD, A review of the medical record indicates additional documentation may be needed. Please review below and update the documentation accordingly. Clinical Indicators: per Wound note 05/16/25: left lateral lower leg ankle venous stasis ulcer cleanse with saline, pat dry, apply cuticerin/curad oil emulsion dressing, cover with durafiber ag, followed by ABD pad and kerlix, change daily and PRN Based on the above, could you please provide further information regarding the ulcer/wound: Venous stasis ulcer left lower leg Other (explain) Clinically unable to determine (explain) Thank you, Tamia Nguyen RN Use of terms such as suspected, likely, concern for, or probable (associated with a specific diagnosis that is being evaluated, monitored, or treated as if it exists) are acceptable and can be coded in the inpatient setting, when documented at the time of discharge. Please use your independent medical judgment in providing your response. THIS QUERY IS PART OF THE PERMANENT MEDICAL RECORD
--- NOTE | 2025-05-18 12:50 | P.PNNP_ITS ---
Subjective Subjective Date of Service: 05/18/25 Interval history: Events noted Physical Exam 2 Vital Signs: Vital Signs: Last Vital Signs Temp 98.2 F 05/18/25 11:43 Pulse 88 05/18/25 11:43 Resp 18 05/18/25 11:43 BP 155/87 H 05/18/25 11:43 Pulse Ox 92 05/18/25 11:43 O2 Del Method Nasal Cannula 05/18/25 11:43 O2 Flow Rate 2 05/18/25 11:43 Oxygen Flow Rate 3 05/12/25 17:12 BMI result Body Mass Index 29.3 Comfortable Neck supple no JVD. Lungs entry equal no rales. Heart S1-S2 heard no gallop or rub. Abdomen soft nontender. Neuro alert awake oriented. No asterixis. Extremities no edema. Objective Data Labs 05/18/25 06:38 05/18/25 06:38 Labs: Laboratory Results - last 24 hr 05/18/25 06:38 WBC 12.8 H RBC 5.31 Hgb 12.8 L Hct 42.9 MCV 80.8 MCH 24.1 L MCHC 29.8 L RDW 20.1 H Plt Count 392 MPV 8.8 L Absolute Nucleated RBC 0.020 H Nucleated RBC % (auto) 0.2 Sodium 141 Potassium 3.8 Chloride 105 Carbon Dioxide 26 Anion Gap 14 BUN 20 H Creatinine 1.32 Estim Creat Clear Calc 50.3 Estimated GFR 52 Random Glucose 140 H Calcium 10.0 D Microbiology Microbiology Results: Microbiology 05/12/25 17:17 Blood - Venous Blood Culture - Final No growth after 5 days. 05/12/25 17:17 Blood - Venous Blood Culture - Final No growth after 5 days. Procedures Date of Service Date of Service: 05/18/25 Assessment & Plan Assessment and plan (1) CKD (chronic kidney disease) stage 3, GFR 30-59 ml/min: Status: Inactive Plan 1. Acute kidney injury, superimposed on chronic kidney disease. 2. Chronic leg ulcers. 3. Rheumatoid arthritis. 4. Acute kidney injury mostly related to volume depletion.? . Ua- No hematuria or protineria RECOMMENDATION:? .? Keep intake more than the output.? Renal function close to baseline Shall arrange for outpatient follow up once discharged Time Spent With Patient Time: Total time managing care of this patient today ____ minutes. Progress Note: Quality Stroke Does the patient have a stroke diagnosis?: No
[2025-05-19] MEDS: 0.9 % Sodium Chloride Flush 3 ML SYRINGE IVFLUSH (01:45)
[2025-05-19 04:00] VITALS: BP 160/92; PULSE 71; RESP 20; TEMP 36.3; O2SAT 94
[2025-05-19 07:17] VITALS: BP 126/89; PULSE 75; RESP 16; TEMP 36.6; O2SAT 95
[2025-05-19 07:45] LABS: Hematocrit 40.8 % (42.0-52.0); Hemoglobin 12.2 g/dl (14.0-18.0); Mean Corpuscular HGB Conc 29.9 g/dl (31.0-36.0); Mean Corpuscular Hemoglobin 24.5 pg (27.0-33.0); Mean Corpuscular Volume 81.9 fL (80.0-98.0); NRBC Abs Auto 0.000 X10*3/uL (0.0-0.012); NRBC Pct Auto 0.0 /100WBC (0.0-0.2); Platelet Count 360 X10*3/uL (160-400); Red Blood Count 4.98 X10*6/uL (4.60-5.80); White Blood Count 11.1 X10*3/uL (4.8-10.8)
[2025-05-19] MEDS: Albuterol/Iprat 2.5/0.5MG 3 ML AMPUL.NEB INHALE (07:53)
[2025-05-19 07:55] VITALS: PULSE 73; RESP 18; O2SAT 95
[2025-05-19 08:13] LABS: Anion Gap 13 (12-20); Blood Urea Nitrogen 21 mg/dL (9-16); Calcium 9.6 mg/dL (8.4-10.2); Carbon Dioxide 25 mmol/L (22-29); Chloride 108 mmol/L (96-108); Creatinine Clr Calc Pharmacy 45.1; Estimated Glomerular Filt Rate 46; Potassium 4.0 mmol/L (3.3-5.1); Sodium 142 mmol/L (135-145)
[2025-05-19] MEDS: Metoprolol Succinate ER 50 MG TAB.ER.24H PO (08:41)
--- NOTE | 2025-05-19 09:21 | PM.DS ---
DS: Providers Provider Date of Service: 05/19/25 Date of admission: 05/12/25 20:33 Date of discharge: 05/19/25 Primary care physician: Kia Stroud MD Consults: 05/12/25 21:03 Consult to Wound Care Routine Consulting Provider: [facility] Reason for consultation: Left ankle/foot chronic wound 05/13/25 11:42 Consult to Wound Care Routine Consulting Provider: [facility] W[facility] Care Management Reason for consultation: Right leg wound 05/14/25 16:32 Consult to Infectious Diseases Routine Consulting Provider: [facility] Reason for consultation: Pneumonia Consult to Nephrology Routine Consulting Provider: [facility] Reason for consultation: Cedric Has provider been notified: No DS: Diagnosis Discharge Diagnosis (1) CKD (chronic kidney disease) stage 3, GFR 30-59 ml/min: Status: Inactive DS: Summary Hospital Course Hospital Course: from initial hpi: 79 years old man with past medical history significant for COPD on home oxygen 2 L/min at nighttime, essential hypertension, CKD stage 3A and RA on low dose prednisone was brought to the ED via EMS after he developed worsening shortness on breath associated with wheezing, cough, fever and chills. He denied chest pain or palpitations. He has been confused. Loss of consciousness or head and neck were not reported. He did not report any acute gastrointestinal genitourinary symptoms. He is a former tobacco smoker. In the ED, he was initially found to have temperature of 104.9 degrees, sinus tachycardia, tachypnea and low O2 sats 86% and currently requiring 2 L/min via nasal cannula. Blood pressure has been stable. Blood workup showed no leukocytosis but there is marked neutrophilia. Platelets are 378 and hemoglobin is at baseline, 12.9. Venous blood gas showed no respiratory acidosis. There are no significant electrolyte imbalances. BUN is 19 and creatinine 1.39, at baseline. There is lactic acidosis there is worsening from 2.4-3.1. Glucose 116. Transaminases are slightly elevated, however bilirubin and alk-phos are normal. CRP is 10.07 and BNP 565.1. Troponin is 2.7. ETOH is less than 10. COVID and influenza testing is negative. Chest CTA showed no evidence of PE, there is [id number] emphysema without focal airspace opacities or pleural effusions. ECG shows sinus tachycardia, HR 129 bpm, nonspecific ST abnormalities. Patient was placed on BiPAP for a period of time. ED tx: Albuterol nebs, Zosyn 4.5 mg g IV, vancomycin 2 g IV, Xopenex 1.25 mg there, Xopenex 3.75 mg, Solu-Medrol 50 mg IV, Tylenol 1 g IV hospital course: Patient was admitted for sepsis acute metabolic encephalopathy and acute hypoxic respiratory failure due to presumed pneumonia and COPD with acute decompensation. Was treated with IV Zosyn and doxycycline as well as prednisone. Sepsis resolved and mental status returned to baseline. At discharge patient is still requiring 2 L to maintain oxygenation at low 90s, he does already have p.r.n. oxygen at home. Was seen by infectious disease who recommended completing 5 more days of p.o. doxycycline. Course complicated by abdominal distention and discomfort likely due to constipation was given Dulcolax suppository with relief should continue MiraLax as needed at home. For CKD 3 remained stable. For rheumatoid arthritis was continued on prednisone. Patient is feeling better and he will be discharged home. Time Attestation Discharge Coordination Time (in mins): 33 Quality: Safe Use of Opioids Does Pt have an Active Cancer Diagnosis on the Problem List?: No Quality: Stroke Does the patient have a stroke diagnosis?: No Physical Exam Vital Signs: Vital Signs: Last Vital Signs Temp 97.8 F 05/19/25 07:17 Pulse 73 05/19/25 07:55 Resp 18 05/19/25 07:55 BP 126/89 05/19/25 07:17 Pulse Ox 95 05/19/25 07:17 O2 Del Method Nasal Cannula 05/19/25 07:17 O2 Flow Rate 3 05/19/25 07:17 Oxygen Flow Rate 3 05/12/25 17:12 BMI result Body Mass Index 29.3 Comfortable Neck supple no JVD. Lungs entry equal no rales. Heart S1-S2 heard no gallop or rub. Abdomen soft nontender. Neuro alert awake oriented. No asterixis. Extremities no edema. DS: Data Data Completed and Pending Completed studies during hospitalization [Text1]: Procedures Excision of Left Lower Leg Skin, External Approach (12/22/21) Excision of Left Lower Leg Subcutaneous Tissue and Fascia, Open Approach (12/22/21) Insertion of Endotracheal Airway into Trachea, Via Natural or Artificial Opening (12/22/21) Insertion of Infusion Device into Superior Vena Cava, Percutaneous Approach (12/22/21) Introduction of Vasopressor into Peripheral Vein, Percutaneous Approach (12/22/21) Performance of Cardiac Output, Single, Manual (12/22/21) Respiratory Ventilation, 24-96 Consecutive Hours (12/22/21) Labs on day of discharge: Laboratory Results - last 24 hr 05/19/25 07:02 WBC 11.1 H RBC 4.98 Hgb 12.2 L Hct 40.8 L MCV 81.9 MCH 24.5 L MCHC 29.9 L RDW 20.8 H Plt Count 360 MPV 9.0 L Absolute Nucleated RBC 0.000 Nucleated RBC % (auto) 0.0 Sodium 142 Potassium 4.0 Chloride 108 Carbon Dioxide 25 Anion Gap 13 BUN 21 H Creatinine 1.47 H Estim Creat Clear Calc 45.1 Estimated GFR 46 Random Glucose 102 Calcium 9.6 Discharge Plan Discharge Anticipated Discharge Date/Time: 05/19/25 09:17 Patient Disposition: Home Health Service Discharge Diagnosis: pna Referrals: Po,Kia Liu MD [Primary Care Provider, Internal Medicine] - 1 Week Discharge Medications: New polyethylene glycol 3350 [Miralax] 17 gram powder in packet 17 g PO DAILY Qty: 100 0RF doxycycline hyclate 100 mg tablet 100 mg PO BID Qty: 10 0RF Continued (DME) miscellaneous medical supply Misc See Rx Instructions .Route Qty: 1 0RF Rx Instructions: As directed gabapentin 600 mg tablet 600 mg PO BID 30 Days Qty: 60 6RF duloxetine 20 mg capsule,delayed release(DR/EC) 20 mg PO BEDTIME Qty: 90 2RF albuterol sulfate 90 mcg/actuation HFA aerosol inhaler 2 puff INHALATION Q6H PRN (Reason: dyspnea) fluticasone propionate [Flonase Allergy Relief] 50 mcg/actuation spray,suspension 2 spray intranasal DAILY PRN (Reason: allergies) Rx Instructions: administer into each nostril multivitamin Tablet 1 tab PO DAILY benfotiamine 150 mg Capsule 300 mg PO DAILY hydromorphone 2 mg tablet 2 mg PO DAILY PRN (Reason: wound dressings/cleanings) Rx Instructions: Partial Fill upon patient request. acetaminophen [Tylenol Extra Strength] 500 mg tablet 1,000 mg PO Q6H PRN (Reason: Pain (Scale Score 1-3)) metoprolol succinate 50 mg tablet extended release 24 hr 50 mg PO DAILY Qty: 90 3RF amlodipine 2.5 mg tablet 2.5 mg PO DAILY Qty: 90 3RF Trelegy Ellipta 100-62.5-25 mcg blister with device 1 inh inhalation DAILY Qty: 60 6RF prednisone 5 mg tablet 5 mg PO DAILY Discharge Orders: Discharge Order (Routine); Ordered 05/19/25 Ordered By: Master Stock Diet: Advance to usual diet Activity on Discharge: As tolerated Stand Alone Forms: Patient Portal Discharge page Print Language: [place] Care Plan Goals: recovery Health Concerns: fever, pna, constipation Plan of Treatment: 5 more days doxy, wean o2 as tolerated, otc miralax as needed Assessment: see above
--- NOTE | 2025-05-19 10:34 | W.MHC.F2F ---
Service Date Service Date: 05/19/25 Encounter Date of encounter: 05/19/25 Reasons for Services Signs and symptoms assessed: sob on exertion Reason for [facility]: medication management, medication treatment and teach disease management Homebound: Leaving the home is medically contraindicated at this time without the asist of a device and/or another person due th the listed conditions above and below. Reason homebound: shortness of breath with minimal effort Certification: Based on the above findings, I certify that this patient is confined to the home and needs intermittent [facility] care, physical therapy and/or speech therapy, or continues to need occupational therapy. The patient is under my care, and I have initiated the establishment of the plan of care. The patient will be followed by a physician who will periodically review the plan of care. Time Spent With Patient Time: Total time managing care of this patient today ____ minutes.
--- NOTE | 2025-05-19 10:38 | MHC.CM.PN ---
Second IMM 05/19/25, Pt. has been medically cleared to [place], family will transport him home, he will have home care services from [facility].
== END 2025-05-19 11:38 | disposition home health service (06) | DRG 871 ==
LOC: HO.ED 19:59 → HO.EDOVER 20:41 → HO.IMC 05-13 19:22
PROVIDERS: Internal Medicine; Admitting Provider Internal Medicine; Emergency Provider Emergency Medicine; PCP Internal Medicine; Visit Provider Internal Medicine
DX: A41.9 Sepsis, unspecified organism (principal); G93.41 Metabolic encephalopathy; J18.9 Pneumonia, unspecified organism; J96.21 Acute and chronic respiratory failure with hypoxia; J44.0 Chronic obstructive pulmonary disease with (acute) lower respiratory infection; J44.1 Chronic obstructive pulmonary disease with (acute) exacerbation; L97.829 Non-pressure chronic ulcer of other part of left lower leg with unspecified severity; N17.9 Acute kidney failure, unspecified; R65.20 Severe sepsis without septic shock; I87.2 Venous insufficiency (chronic) (peripheral); Z99.81 Dependence on supplemental oxygen; N18.31 Chronic kidney disease, stage 3a; M06.9 Rheumatoid arthritis, unspecified; I12.9 Hypertensive chronic kidney disease with stage 1 through stage 4 chronic kidney disease, or unspecified chronic kidney disease; Z20.822 Contact with and (suspected) exposure to COVID-19; Z86.711 Personal history of pulmonary embolism; Z87.891 Personal history of nicotine dependence; Z79.52 Long term (current) use of systemic steroids; Z79.899 Other long term (current) drug therapy
CPT/HCPCS: 36415; 71045; 71250; 74177; 80048; 80053; 80076; 80202; 80307; 81003; 82565; 82803; 82947; 83605; 83735; 83880; 84484; 85025; 85027; 85610; 86140; 87040; 87502; 87635; 87640; 87641; 93005; 94640; 97161; 99285; J0131; J1171; J1271; J2405; J2470; J2543; J2765; J2919; J3373; J3374; J7120; Q9967

== ENCOUNTER → 2025-05-12 17:06 | Outpatient (BNV) | payer MEDICARE, SELFPAY | PROVIDERS: Admitting Provider Internal Medicine; Emergency Provider Emergency Medicine; PCP Internal Medicine; Visit Provider Internal Medicine | DX: R00.0 Tachycardia, unspecified (principal) | CPT/HCPCS: 93010 ==

== ENCOUNTER → 2025-05-12 17:06 | Outpatient (BNV) | payer MEDICARE, SELFPAY | PROVIDERS: Emergency Provider Emergency Medicine; PCP Internal Medicine; Visit Provider Radiology Diagnostic Radiology | DX: J18.9 Pneumonia, unspecified organism (principal) | CPT/HCPCS: 71045 ==

== ENCOUNTER 2025-05-12 20:33 | Outpatient (BNV) | payer MEDICARE, SELFPAY | END 2025-05-14 16:27 | PROVIDERS: Admitting Provider Internal Medicine; Emergency Provider Emergency Medicine; PCP Internal Medicine; Visit Provider Internal Medicine Cardiovascular Disease | DX: I49.1 Atrial premature depolarization (principal); I45.9 Conduction disorder, unspecified | CPT/HCPCS: 93010 ==

== ENCOUNTER 2025-05-12 20:33 | Outpatient (BNV) | payer MEDICARE, SELFPAY | END 2025-05-17 17:28 | PROVIDERS: Admitting Provider Internal Medicine; Emergency Provider Emergency Medicine; PCP Internal Medicine; Visit Provider Radiology Diagnostic Radiology | DX: I72.3 Aneurysm of iliac artery (principal); I70.0 Atherosclerosis of aorta; N28.1 Cyst of kidney, acquired; J43.2 Centrilobular emphysema; I25.10 Atherosclerotic heart disease of native coronary artery without angina pectoris; K44.9 Diaphragmatic hernia without obstruction or gangrene; K76.0 Fatty (change of) liver, not elsewhere classified | CPT/HCPCS: 71250; 74177 ==

== ENCOUNTER → 2025-05-12 20:33 | Outpatient (BNV) | payer MEDICARE, SELFPAY | PROVIDERS: Admitting Provider Internal Medicine; Emergency Provider Emergency Medicine; PCP Internal Medicine; Visit Provider Internal Medicine | DX: R09.02 Hypoxemia (principal) | CPT/HCPCS: 99223; 99232; 99233; 99239; G0180 ==

== ENCOUNTER → 2025-05-12 20:33 | Outpatient (BNV) | payer MEDICARE, SELFPAY | PROVIDERS: Admitting Provider Internal Medicine; Emergency Provider Emergency Medicine; PCP Internal Medicine; Visit Provider Internal Medicine | DX: A41.9 Sepsis, unspecified organism (principal); R65.20 Severe sepsis without septic shock | CPT/HCPCS: 99222 ==

== ENCOUNTER → 2025-05-12 20:33 | Outpatient (BNV) | payer MEDICARE, SELFPAY | PROVIDERS: Admitting Provider Internal Medicine; Emergency Provider Emergency Medicine; PCP Internal Medicine; Visit Provider Internal Medicine Hypertension Specialist | DX: N18.30 Chronic kidney disease, stage 3 unspecified (principal) | CPT/HCPCS: 99232 ==

== ENCOUNTER 2025-05-28 13:11 | Outpatient (AMB) | payer MEDICARE, SELFPAY ==
[2025-05-28 13:23] VITALS: BP 110/78; PULSE 90; O2SAT 91; BMI 29.7
--- NOTE | 2025-05-28 13:23 | MHC.OFFVIS ---
Vital Signs 05/28/25 13:23 Height 5 ft 6 in Weight 184 lb 1.376 oz BMI 29.7 BP 110/78 Blood Pressure Location Rt brachial Position Sitting Pulse 90 Pulse Source Pulse Oximeter Pulse Oximetry (%) 91 L Oxygen Delivery Method Room Air Intake Visit Reasons: COPD Allergies heparin (porcine) Allergy (Severe, Verified 05/28/25 13:28) HIT HPI HPI COPD: Details: Sarath is a pleasant 79 year old male, former 30 pack year smoker, quit 2019, with underlying moderate COPD, Sjogren's, Rheumatoid arthritis previously on Humira/Acemtra/Enbrel, provoked PE, CKD, HTN and chronic nonhealing wound on chronic prednisone 5 mg QD. He continues to be nonambulatory due to poor healing wound on foot, currently in wheelchair and accompanied by . He reports moderate control of respiratory symptoms using Trelegy 100 mcg using Albuterol MDI infrequently. Since the last visit he was admitted to [facility] [place] due to sepsis acute metabolic encephalopathy and acute hypoxic respiratory failure due to presumed pneumonia and COPD with acute decompensation. He was treated with IV Zosyn and doxycycline as well as prednisone. Sepsis resolved and mental status returned to baseline. At discharge patient is still requiring 2 L to maintain oxygenation at low 90s, however only using 3L NOC. He has been checking oxygen saturation maintaining >92% on room air at home since discharge. He was evaluated by infectious disease who recommended completing 5 more days of p.o. doxycycline which he has completed and reports significant improvements overall. He denies fever, cough, wheezing, chest congestion or tightness. [facility] Medical History MDD (major depressive disorder), single episode Pressure injury of buttock, stage 1 Deep vein thrombosis 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 Acute pulmonary embolism with acute cor pulmonale Acute pulmonary embolism Cardiac arrest CKD (chronic kidney disease) stage 3, GFR 30-59 ml/min Sjogren's disease Leg pain, bilateral Elevated serum creatinine COPD (chronic obstructive pulmonary disease) HTN (hypertension) Rheumatoid arthritis Chronic ulcer of leg Surgical History History of ankle surgery History of hernia repair History of left knee replacement Family History Sister Breast cancer Father Aneurysm Mother Angina at rest Other No family history of coronary artery disease Social History Household Members: Spouse Housing: House Do you presently have visiting nurse or other home services: No Alcohol intake: current Alcohol intake frequency: does not drink Comment: restraints Patient Tobacco Use Status: Former Tobacco user Tobacco use type: Cigarette Cigarette Packs Per Day: 1 Years Smoked: quit + years e-Cigarette/Vaping Use: Never Used Second Hand Smoke Exposure: No Advance Directives Date on File: 12/23/21 service: No Current occupational status: retired Cognitive needs: Yes (cane) Hearing needs: No Vision needs: Yes (Pt wear glasses. ) Review of Systems Const Denies chills, Denies excessive sweating, Denies fever(s), Denies headache(s) and Denies night sweats Eyes Denies dry eyes, Denies irritation and Denies itchy eyes ENT Reports Normal hearing present and Denies headache(s) Card Denies chest pain, Denies chest pain at rest, Denies chest pain with activity, Denies claudication, Reports dyspnea on exertion, Reports orthopnea and Denies paroxysmal nocturnal dyspnea Resp Denies change in phlegm color, Denies chest congestion, Denies cough, Denies hemoptysis, Denies excessive phlegm production, Denies pain on inspiration, Denies pain with cough, Reports dyspnea on exertion, Denies stridor and Denies wheezing Musc Denies myalgias Neuro Reports Normal hearing present and Denies headache(s) Endo Denies excessive sweating Jhon/Lymph Denies lymphadenopathy Aller/Immun Denies itchy eyes, Denies seasonal rhinorrhea and Denies wheezing Physical Exam Vital Signs: Last Vital Signs Pulse 90 05/28/25 13:23 BP 110/78 05/28/25 13:23 Pulse Ox 91 L 05/28/25 13:23 Oxygen Delivery Method Room Air 05/28/25 13:23 BMI result Body Mass Index 29.7 Const General: cooperative, healthy appearing, comfortable, no acute distress, well developed and alert Orientation/consciousness: patient oriented x3 Limitations: wheelchair HEENT Head: Yes normal to inspection, Yes normocephalic and Yes atraumatic Ears: hearing grossly normal bilaterally and external ears normal Eyes General: appearance normal, both eyes and all related structures Eyelids: Yes eyelids normal Sclerae: sclerae normal EOM: EOMs intact bilaterally Neck Neck: Yes normal visual inspection and Yes no lymphadenopathy Lymphatic: no lymphadenopathy noted Chest Chest palpation & inspection: normal inspection of the chest Resp Other: bibasilar inspiratory crackles L>R Effort & Inspection: normal respiratory effort, able to speak in complete sentences, no audible wheezes, no cough, no stridor, not tachypneic, no tripod positioning and no use of accessory muscles Auscultation: diminished lung sounds Cardio Jugular venous distension: no JVD Rate: regular rate Skin Other: warm, dry Neuro General: patient oriented x3 Cranial nerves: Yes Normal hearing present Cognition (Neuro): normal cognition Extrem Other: LLE with edema, covered with dry, clean dressing, trace pedal edema on right Psych Appearance: grossly normal and well kempt Speech and movement: Normal speech and movement present and Clear speech present Affect: normal affect Attitude: cooperative Thought process: Normal thought process present Thought content: Normal thought content present Insight: Good insight present (Psych) Judgement: Good judgement present (Psych) Results Reviewed Results Reviewed: [address] [address] [address] Scan Report Signed Patient: Sarath Gipson MR#: [id number] : 1945 Acct:[id number] Age/Sex: 79 / M ADM Date: 05/12/25 Loc: [facility] 468-[address]: Master Stock MD Ordering Physician: Master Stock MD Date of Service: 05/17/25 Procedure(s): CT chest wo IV con Accession Number(s): [id number] cc: Master Stock MD; Kia Stroud MD~ Report Number: [id number]: Total DLP = 192.00 mGy-cm Reason for Exam: hypoxia CLINICAL HISTORY: hypoxia CT chest without contrast Comparison: CT/SR - CT CHEST ANGIOGRAPHY WITH IV CONTRAST - 03/22/25 13:59 EDT Findings: Calcified coronary atherosclerotic disease. Hiatal hernia. Centrilobular lucencies predominantly upper lobes. No active pulmonary inflammatory changes. Bibasilar dependent subsegmental atelectasis. Mild calcified atherosclerotic disease of the abdominal aorta. No acute fractures. Mild osteopenia. Diffuse idiopathic skeletal hyperostosis. IMPRESSION: 1. Centrilobular emphysema. 2. Hiatal hernia. 3. Calcified coronary atherosclerotic disease. 4. No acute pulmonary findings. 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: Assessment & Plan Assessment & Plan (1) COPD (chronic obstructive pulmonary disease): Code(s): J44.9 - Chronic obstructive pulmonary disease, unspecified Category: Medical (2) Personal history of tobacco use: Comment: CT 10/30/2023 Code(s): Z87.891 - Personal history of nicotine dependence Category: Social Hx (3) Nocturnal hypoxemia: Code(s): G47.34 - Idiopathic sleep related nonobstructive alveolar hypoventilation Category: Medical (4) History of recent pneumonia: Code(s): Z87.01 - Personal history of pneumonia (recurrent) Category: Medical Plan Since discharge patient reports significant improvements in respiratory symptoms and has been maintaining oxygen saturation >92% on room air. Advised to continue Trelegy, Albuterol MDI PRN and 3L supplemental oxygen NOC. Will send for overnight oximetry to ensure resolution of hypoxemia. Prior overnight oximetry noted significant number of desaturations suggestive of JORGE however patient continues to decline sleep study. Will send for CXR next week to assess for resolving pneumonia given inspiratory bibasilar crackles and send for chest CT in 8-10 weeks to assess for complete resolution. He is aware to call if symptoms change. All questions were answered and patient is in agreement of plan. Will follow up in 10-12 weeks or sooner if needed. Orders: Orders Overnight Pulse Oximetry Today G47.34 - Idiopathic sleep related nonobstructive alveolar hypoventilation XR chest 2V Today Z87.01 - Personal history of pneumonia (recurrent) Coding Level of Care Code Est Pt Level 4 (68304) Complex EM visit Add On G2211 Diagnoses COPD (chronic obstructive pulmonary disease) J44.9 Personal history of tobacco use Z87.891 Nocturnal hypoxemia G47.34 History of recent pneumonia Z87.01
== END 2025-05-28 14:22 | disposition home or self-care (01) ==
LOC: HO.HPS 13:12
PROVIDERS: PCP Internal Medicine; Visit Provider Nurse Practitioner Family
DX: J44.9 Chronic obstructive pulmonary disease, unspecified (principal); Z87.891 Personal history of nicotine dependence; G47.34 Idiopathic sleep related nonobstructive alveolar hypoventilation; Z87.01 Personal history of pneumonia (recurrent)
CPT/HCPCS: 99214; G2211

== ENCOUNTER → 2025-05-28 13:11 | Outpatient (BNVA) | payer MEDICARE, SELFPAY | PROVIDERS: PCP Internal Medicine; Visit Provider Nurse Practitioner Family | DX: R09.02 Hypoxemia (principal); J44.9 Chronic obstructive pulmonary disease, unspecified; Z87.891 Personal history of nicotine dependence; Z87.01 Personal history of pneumonia (recurrent); G47.34 Idiopathic sleep related nonobstructive alveolar hypoventilation | CPT/HCPCS: 99212 ==

== ENCOUNTER 2025-05-29 10:46 | Outpatient (AMB) | payer MEDICARE, SELFPAY ==
--- NOTE | 2025-05-29 10:48 | MHC.OFFVIS ---
Vital Signs 05/29/25 11:03 Height 5 ft 6 in Weight 184 lb BMI 29.7 BP 107/74 Blood Pressure Location Lt brachial Position Sitting Pulse 83 Pulse Source Pulse Oximeter Pulse Oximetry (%) 95 Oxygen Delivery Method Room Air Intake Visit Reasons: Pill Count Intake Note: Sarath comes in today for a pill count to hydromorphone, patient should have 2 tablets and presents with 9 tablets ( 2 from previous script) which he last took yesterday 05/28/25. 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 He has a chronic non-healing wound on his left lower extremity, which is the source of his chronic pain. Due to poor healing of this wound, he utilizes wheelchair for mobility. His pain is reported at 8/10 today. The patient was recently admitted to [facility] from 05/12 to 05/19 due to sepsis, acute metabolic encephalopathy, and acute hypoxic respiratory failure with presumed pneumonia and a COPD exacerbation. He was treated with antibiotics and prednisone, with resolution of the sepsis and his mental status returning to baseline. Post-discharge, he remains on 2-3 liters of supplemental oxygen, primarily at night. He was seen by a [facility] senior specialist yesterday and upcoming PCP follow up next week. He is prescribed hydromorphone 2 mg for pain, which he takes once daily. A recent prescription for 60 pills was not filled by the pharmacy; only a 7-day supply was provided, as he his last prescription fill being in July 2024 and has been taking pain medication only with wound care dressing changes. He receives Wound care at a facility in [place]. Patient reports no significant improvement in his wound healing and has been taking hydromorphone daily with dressing changes with good tolerance and without significant adverse effects. He also takes gabapentin twice daily. Denies any fever, chills, cough, weight loss, bleeding, weakness, dizziness, shortness of breaths, constipation, nausea, sedation, urinary retention or abdominal pain. [facility] Medical History MDD (major depressive disorder), single episode Pressure injury of buttock, stage 1 Deep vein thrombosis 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 Acute pulmonary embolism with acute cor pulmonale Acute pulmonary embolism Cardiac arrest CKD (chronic kidney disease) stage 3, GFR 30-59 ml/min Sjogren's disease Leg pain, bilateral Elevated serum creatinine COPD (chronic obstructive pulmonary disease) HTN (hypertension) Rheumatoid arthritis Chronic ulcer of leg Surgical History History of ankle surgery History of hernia repair History of left knee replacement Family History Sister Breast cancer Father Aneurysm Mother Angina at rest Other No family history of coronary artery disease Social History Household Members: Spouse Housing: House Do you presently have visiting nurse or other home services: No Alcohol intake: current Alcohol intake frequency: does not drink Comment: restraints Patient Tobacco Use Status: Former Tobacco user Tobacco use type: Cigarette Cigarette Packs Per Day: 1 Years Smoked: quit + years e-Cigarette/Vaping Use: Never Used Second Hand Smoke Exposure: No Advance Directives Date on File: 12/23/21 service: No Current occupational status: retired Cognitive needs: Yes (cane) Hearing needs: No Vision needs: Yes (Pt wear glasses. ) Review of Systems Const Details: - General: Reports feeling better after recent hospitalization. - Respiratory: Reports using 2-3 liters of oxygen at night. - Denies developing respiratory depression, dizziness, shortness of breath after taking Dilaudid. - Integumentary: Reports a chronic, non-healing wound on the left lower extremity with no new changes. All systems reviewed & are unremarkable except as noted in HPI and below Physical Exam General: Appears afebrile. Alert and oriented. Mood and affect appropriate. Follows and participates in conversation appropriately. Respiratory effort is unlabored. No cough. Sitting comfortably in the wheelchair. Eyes General: appearance normal, both eyes and all related structures Resp Effort & Inspection: normal respiratory effort, able to speak in complete sentences, no audible wheezes, no cough, respiratory effort not decreased and no respiratory distress Extrem Other: Left foot in dressing, dry intact, no drainage General: Yes capillary refill normal, Yes no calf tenderness, No clubbing, No cyanosis and Yes pedal edema (trace, bilateral) Psych Appearance: grossly normal and well kempt Mental Status: mental status grossly normal Speech and movement: Normal speech and movement present and Clear speech present Affect: normal affect Attitude: cooperative Thought process: Normal thought process present Thought content: Normal thought content present, suicidality (none), no hallucinations and No Depressive thoughts present Insight: Good insight present (Psych) Judgement: Good judgement present (Psych) Results Reviewed Results Reviewed: Assessment & Plan Assessment & Plan (1) Chronic pain of left lower extremity: Code(s): M79.605 - Pain in left leg; G89.29 - Other chronic pain Category: Medical (2) Chronic, continuous use of opioids: Code(s): F11.90 - Opioid use, unspecified, uncomplicated Category: Medical (3) Peripheral neuropathy: Code(s): G62.9 - Polyneuropathy, unspecified Category: Medical Qualifiers: Peripheral neuropathy type: polyneuropathy, unspecified Qualified Code(s): G62.9 - Polyneuropathy, unspecified (4) Non-healing wound of left lower extremity: Code(s): S81.802A - Unspecified open wound, left lower leg, initial encounter Category: Medical (5) Pyoderma gangrenosum: Code(s): L88 - Pyoderma gangrenosum Category: Medical Plan Patient has shown accountability for his medication regimen and the pill count was accurate. There is no evidence of misuse, abuse or diversion at this time. [place] reviewed. The patient and his were counseled on the risk of respiratory depression associated with opioid use, particularly in the context of his recent hypoxic respiratory failure and supplemental oxygen requirement. A new prescription for Narcan will be sent to the pharmacy, as his current supply may be . Wcript for hydromorphine 2 mg once daily prn #30 sent today, he takes it for wound care/dressing changes only. Continue duloxetine, gabapentin and Tylenol as needed. Refill sent for Narcan. Patient will continue follow-up at the wound care center in [place] for his non-healing left lower extremity wound. All questions were answered and the patient is in agreement with the plan. Follow up in 4-5 weeks for a pill count or sooner if needed. Patient was informed and verbally consented to the use of an ambient scribe for clinic note documentation during this visit. Medications: New naloxone 4 mg/actuation (Narcan) spray 1 dose into ONE nostril; alternate nostrils w each dose until help arrives 4 mg intranasal Q2M PRN 2 ea 1RF opioid overdose - Opioid use, unspecified, uncomplicated Changed From hydromorphone Partial Fill upon patient request. 2 mg PO DAILY PRN wound dressings/cleanings - Opioid use, unspecified, uncomplicated, G89.29 - Other chronic pain, M79.605 - Pain in left leg To hydromorphone Partial Fill upon patient request. 2 mg PO DAILY PRN 30 tabs 0RF wound dressings/cleanings 30 days - Opioid use, unspecified, uncomplicated, G89.29 - Other chronic pain, M79.605 - Pain in left leg Coding Level of Care Code Est Pt Level 4 (96459) Complex EM visit Add On G2211 Diagnoses Chronic pain of left lower extremity M79.605; G89.29 Chronic, continuous use of opioids Peripheral polyneuropathy G62.9 Peripheral neuropathy type: polyneuropathy, unspecified Non-healing wound of left lower extremity S81.802A Pyoderma gangrenosum L88
[2025-05-29 11:03] VITALS: BP 107/74; PULSE 83; O2SAT 95; BMI 29.7
== END 2025-05-29 11:14 | disposition home or self-care (01) ==
LOC: HO.PMC 10:47
PROVIDERS: PCP Internal Medicine; Visit Provider Nurse Practitioner Family
DX: M79.605 Pain in left leg (principal); G89.29 Other chronic pain; Z79.891 Long term (current) use of opiate analgesic; G62.9 Polyneuropathy, unspecified; S81.802A Unspecified open wound, left lower leg, initial encounter; L88 Pyoderma gangrenosum
CPT/HCPCS: 99214; G2211

== ENCOUNTER → 2025-05-29 10:46 | Outpatient (BNVA) | payer MEDICARE, SELFPAY | PROVIDERS: PCP Internal Medicine; Visit Provider Nurse Practitioner Family | DX: L88 Pyoderma gangrenosum (principal); F11.90 Opioid use, unspecified, uncomplicated; G62.9 Polyneuropathy, unspecified; S81.802A Unspecified open wound, left lower leg, initial encounter; X58.XXXA Exposure to other specified factors, initial encounter; Z79.899 Other long term (current) drug therapy | CPT/HCPCS: 99212 ==

== ENCOUNTER 2025-05-31 11:29 | Outpatient (AMB) | payer MEDICARE, SELFPAY ==
--- NOTE | 2025-05-31 11:44 | A.OFFPC_ITS ---
Vital Signs 05/31/25 11:46 Height 5 ft 6 in Weight 183 lb 6.793 oz BMI 29.6 BP 134/64 Blood Pressure Location Lt brachial Position Sitting Pulse 85 Pulse Source Pulse Oximeter Temp 97.1 F Temp Source Temporal Artery Scan Pulse Oximetry (%) 98 Oxygen Delivery Method Room Air Intake Visit Reasons: discharge f/u [facility] 05/19 Intake Note: Patient is here for hospital discharge follow up. Patient was discharged from [facility] on 05/19/25. Furs Salesperson Required: No Adapted Physical Education Specialist: Present Accompanied by: Spouse Allergies heparin (porcine) Allergy (Severe, Verified 05/31/25 11:45) HIT Tobacco use date assessed: 05/31/25 Fall risk assessment: No Falls in past year Last assessed Fall Risk: 05/31/25 Dental Screening Dental Screen Date: 03/02/25 HPI HPI Comments History of Present Illness Details Patient is a 79-year-old male with medical history significant for COPD on 2 L home oxygen at night, hypertension, CKD stage IIIA and rheumatoid arthritis on low-dose prednisone who is presenting, accompanied by his for hospital discharge follow up. He was admitted to [facility] from May 12 to 05/19/2025 for acute metabolic encephalopathy, sepsis and acute hypoxic respiratory failure due to presumed pneumonia and COPD exacerbation. He was treated with IV antibiotics and prednisone. Sepsis resolved, mental status returned to baseline. Patient was discharged to complete 5 more days of p.o. doxycycline. Today, he reports he is doing better no shortness of breath or wheezing, continues to use his oxygen night and he completed his course of antibiotics. Continues to uses his inhaler. The patient reports a history of a chronic, non-healing wound on the left outer ankle for the past four years. He states that years ago, the wound was severe enough that the foot turned almost black, leading to a month-long hospitalization and surgical debridement of a portion of the calf. The patient's changes the dressings daily. He reports that due to dissatisfaction with a previous wound center, the patient recently switched to [facility]'s wound center. Due to the wound and his peripheral neuropathy, patient complaining of pain that is not optimally controlled. Current medication for pain include gabapentin 600 mg twice daily, duloxetine 20 mg at bedtime, and three 500 mg Tylenol pills at night. A previous trial of gabapentin three times a day resulted in excessive sleepiness. [facility] Medical History MDD (major depressive disorder), single episode Pressure injury of buttock, stage 1 Deep vein thrombosis 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 Acute pulmonary embolism with acute cor pulmonale Acute pulmonary embolism Cardiac arrest CKD (chronic kidney disease) stage 3, GFR 30-59 ml/min Sjogren's disease Leg pain, bilateral Elevated serum creatinine COPD (chronic obstructive pulmonary disease) HTN (hypertension) Rheumatoid arthritis Chronic ulcer of leg Surgical History History of ankle surgery History of hernia repair History of left knee replacement Family History Sister Breast cancer Father Aneurysm Mother Angina at rest Other No family history of coronary artery disease Social History Household Members: Spouse Housing: House Do you presently have visiting nurse or other home services: No Alcohol intake: current Alcohol intake frequency: does not drink Comment: restraints Patient Tobacco Use Status: Former Tobacco user Tobacco use type: Cigarette Cigarette Packs Per Day: 1 Years Smoked: quit + years e-Cigarette/Vaping Use: Never Used Second Hand Smoke Exposure: Yes Advance Directives Date on File: 12/23/21 service: No Current occupational status: retired Cognitive needs: Yes (Wheelchair) Hearing needs: No Vision needs: Yes (Pt wear glasses. ) Questionnaire Thrive Questionnaire Date Thrive assessed: 03/01/25 I am a: Parent/Caregiver What is your living situation today?: I have a steady place to live Within the past 12 months, did the food you bought not last and you didn't have the money to get more?: Never true Within the past 12 months, did you worry whether your food would run out before you got money to buy more?: Never true Do you have trouble paying for medicines?: No Do you have trouble getting transportation to medical appointments?: No Do you have trouble paying your heating and electricity bill?: No Do you have trouble taking care of your child, family member or friend?: No Do you have trouble with day-to-day activities such as bathing, preparing meals, shopping, managing finances, etc.?: Yes Are you currently unemployed and looking for a job?: No Are you interested in more education?: No Please select the resources that you would like help with: None Currently or been in a relationship where the following occur: No concerns reported THRIVE Score: 0 RENETTA-7 AMB Questionnaire RENETTA-7 Date RENETTA - 7 assessed: 09/04/24 Source: Developed by Drs. Ronal Rivero, Cecelia Cortez, Johny Ocasio and colleagues, with an educational samantha from [employer]. Physical exam (Primary Care) Vital Signs: Last Vital Signs Temp 97.1 F 05/31/25 11:46 Pulse 85 05/31/25 11:46 BP 134/64 05/31/25 11:46 Pulse Ox 98 05/31/25 11:46 Oxygen Delivery Method Room Air 05/31/25 11:46 General: Well-appearing, alert, oriented ?3, in no acute distress. Cardiovascular: RRR, S1-S2 appreciated, no murmurs, rubs or gallops. Respiratory: Lungs clear to auscultation bilaterally, no wheezes, rales or rhonchi. Abdomen: Soft, nontender, nondistended. Normoactive bowel sounds. Wound on left lateral ankle wrapped in bandages. BMI result Body Mass Index 29.6 Tobacco/Smoking Status: Tobacco use Status Tobacco use date assessed 05/31/25 05/31/25 11:53 Patient Tobacco Use Status Former Tobacco user 05/31/25 11:53 Tobacco use type Cigarette 05/31/25 11:53 e-Cigarette/Vaping Use Never Used 05/31/25 11:53 Thrive Assessment: Date of Thrive Assessment Date Thrive assessed 03/01/25 05/31/25 11:53 Currently or been in a relationship where the following occur: No concerns reported Coding Level of Care Code Est Pt Level 4 (93121) Diagnoses Hospital discharge follow-up Z09 Neuropathic pain M79.2 Assessment & Plan Assessment & Plan (1) Hospital discharge follow-up: Code(s): Z09 - Encounter for follow-up examination after completed treatment for conditions other than malignant neoplasm Category: Medical Plan: He was admitted to [facility] from May 12 to 05/19/2025 for acute metabolic encephalopathy, sepsis and acute hypoxic respiratory failure due to presumed pneumonia and COPD exacerbation. He was treated with IV antibiotics and prednisone. Sepsis resolved, mental status returned to baseline. Patient was discharged to complete 5 more days of p.o. doxycycline which he completed. he reports he is doing better no shortness of breath or wheezing, continues to use his oxygen night and his inhalers. (2) Neuropathic pain: Code(s): M79.2 - Neuralgia and neuritis, unspecified Category: Medical Plan: The patient's chronic neuropathic pain is suboptimally controlled, with breakthrough pain in the program or project administrator despite treatment with gabapentin 600 mg BID and duloxetine 20 mg QHS. A trial of increased gabapentin frequency in the past was limited by somnolence. The plan is to increase the duloxetine to 40 mg at bedtime. A new one-month prescription will be sent to the pharmacy. If this change is not effective, the patient will return to the 20 mg dose. Medications: New duloxetine 40 mg (2 x 20 mg) PO BEDTIME 60 caps 0RF neuropathic pain 30 days Discontinued duloxetine Discontinued Reason: Ancillary Entered New Order 20 mg PO BEDTIME 90 caps 2RF pain I10 - Essential (primary) hypertension
[2025-05-31 11:46] VITALS: BP 134/64; PULSE 85; TEMP 36.2; O2SAT 98; BMI 29.6
--- OUTSIDE RECORDS SUMMARY | 2025-05-31 17:47 | XMS_ITS ---
Author Name [facility] Organization Unknown Encounters Encounter Type Encounter Reason Primary Diagnosis Location Date Ambulatory Pyoderma gangrenosum Pyoderma gangrenosum [facility] 05/23/2025 Care Team Organization Name Specialty Phone Email Start Date End Da te [facility] Primary Care 05/23/2025
--- OUTSIDE RECORDS SUMMARY | 2025-05-31 17:47 | XMS_ITS | Patient Health Record ---
Author Organization [facility] Address [address] [place] [phone] Care Team Providers Care Finance Controller Name Role Phone Lalitha MORALES, William Primary Care Provider Kong Nava Unavailable [phone] Arnav Limon Unavailable Unavailable Allergies No Known Allergies Reason For Referral No Information Medications Medication SIG (Take, Route, Frequency, Duration) Notes Start Date End Date Status Enbrel SureClick 50 MG/ML Subcutaneous Active Problems Problem Type SNOMED Code ICD Code Onset Dates Problem Status W/U Status Risk Notes Problem Skin ulcer of calf (346283705) Ulcer (skin exp) LEFT CALF (L97.221) Active confirmed Problem Varicose veins of lower extremity (94455242) Vikash Insuf (other compl) LEFT (I83.892) Active confirmed Problem Vikash Insuf (ulcer) LEFT CALF (I83.022) Active confirmed Plan Of Treatment No Information Insurance Providers Payer Name Payer Address Payer Phone Subscriber Number Group Number Insured Name Patient Relationship to Insured Coverage Start Date Coverage End Date [employer] Blue [address] [place] [address] [id number] Sarath Gipson Self - patient is the insured [employer] PPO,EPO & Medigap [address] [place] [address] [id number] Farideh Gipson Spouse - patient is the spouse of the insured [employer] [address] [place] [id number] Sarath Gipson Self - patient is the insured 8
== END 2025-05-31 12:35 | disposition home or self-care (01) ==
LOC: HO.HMCH 11:30
PROVIDERS: PCP Internal Medicine; Visit Provider Student in an Organized Health Care Education/Training Program
DX: Z09 Encounter for follow-up examination after completed treatment for conditions other than malignant neoplasm (principal); M79.2 Neuralgia and neuritis, unspecified

== ENCOUNTER → 2025-05-31 11:29 | Outpatient (BNVA) | payer MEDICARE, SELFPAY | PROVIDERS: PCP Internal Medicine; Visit Provider Student in an Organized Health Care Education/Training Program | DX: Z09 Encounter for follow-up examination after completed treatment for conditions other than malignant neoplasm (principal); I12.9 Hypertensive chronic kidney disease with stage 1 through stage 4 chronic kidney disease, or unspecified chronic kidney disease; N18.31 Chronic kidney disease, stage 3a; S91.002A Unspecified open wound, left ankle, initial encounter; M06.9 Rheumatoid arthritis, unspecified; G62.9 Polyneuropathy, unspecified; Z99.81 Dependence on supplemental oxygen; Z79.52 Long term (current) use of systemic steroids; Z79.2 Long term (current) use of antibiotics; Z79.899 Other long term (current) drug therapy | CPT/HCPCS: 99212 ==

== ENCOUNTER 2025-06-04 11:01 | Outpatient (AMB) | payer MEDICARE, SELFPAY ==
--- OUTSIDE RECORDS SUMMARY | 2025-06-01 11:30 | XMS_ITS | Encounter Summary ---
Author Organization [facility] Address [address] [place] [address] Care Team Providers Care Patient Liaison Name Role Phone Kia Stroud MD Primary Care Provider [phone] Reason for Referral * Diagnostic Imaging (Routine) - Pending Review Specialty Diagnoses / Procedures Referred By Contac t Referred To Contact Radiology Diagnoses Non-pressure chronic ulcer of left lower leg, unspecified ulcer stage (HCC) Procedures Venous doppler lower extremity bilateral Stacey Espinoza MD [address] [place] [address] Phone: tel: fax: Referral ID Status Reason Start Date Expiration Date V isits Requested Visits Authorized [id number] Pending Review 06/01/2025 07/06/2026 1 1 Reason for Visit * Reason Comments Wound Care Encounter Details Date Type Department Care Team (Late st Contact Info) Description 06/01/2025 11:30 AM EST Office Visit [facility] Department of Wound Care [address] [place] [address] Stacey Espinoza MD [address] [place] [address] Non-pressure chronic ulcer of left lower leg, unspecified ulcer stage (HCC) (Primary Dx) Social History Tobacco Use Types Packs/Day Years Used Date Smoking Tobacco: Former Cigarettes 2 60.9 S tarted: 1965 Smokeless Tobacco: Never Alcohol Use Standard Drinks/Week Comments Not Currently 0 (1 standard drink = 0.6 oz pur e alcohol) Sex and Gender Information Value Date Recorded Sex Assigned at Not on file Legal Sex Male 8:59 AM EDT Gender Identity Not on file Sexual Orientation Not on file COVID-19 Exposure Response Date Recorded In the last 10 days, have yo u been in contact with someone who was confirmed or suspected to have Coronavirus/COVID-19? No / Unsure 06/01/2025 9:44 AM EST documented as of this encounter Last Filed Vital Signs Vital Sign Reading Time Taken Comments Blood Pressure 126/80 06/01/2025 11:17 AM EST Pulse 86 06/01/2025 11:17 AM EST Temperature - - Respiratory Rate 18 06/01/2025 11:17 AM EST Oxygen Saturation 91% 06/01/2025 11:17 AM EST Inhaled Oxygen Concentration - - Weight - - Height - - Body Mass Index - - documented in this encounter Patient Instructions * Patient Instructions* Hunter Choi RN - 06/01/2025 11:30 AM EST [facility] WOUND CARE AND HYPERBARIC MEDICINE [phone] Visit Discharge Instructions: Wound Location Cleanser Cleanse Wound with normal saline May Shower-leave dressing on. - Cover for Protection Topical Treatments Moisturizing lotion to surround skin. - to dry intact skin Dressings Primary dressing: santyl to wound bed Secondary dressing gauze, kerlix Secure with Change dressing 3x weekly Compression/Edema Control Elevate leg(s) as much as possible. Avoid standing in one position for more than 10 minutes. Avoid settings with legs down. Do not cross legs when sitting. Apply Wraps/Stockings in AM and remove at bedtime Home Health Home Health Care: If you have any questions or concerns please contact the wound center. - Nutrition Increase the protein in your diet. Follow-Up Appointments Return appointment 2 week Should you experience any significant changes in your wound(s) or have any questions regarding your home care instructions please contact the wound center @ [phone]. Ifafter hours, contact your primary care physician or go to the hospital emergency room. Hand Hygiene/Smoking Cessation Wash hands before and after wound care. Call the Wound Center at [phone] if you have signs orsymptoms of infection, increased drainage, increasing odor, or unusual redness. After Wound Care hours, please notify your PCP or go to the ER. documented in this encounter Progress Notes * Stacey Espinoza MD - 06/01/2025 11:30 AM EST [facility] WOUND [facility]ARE CLIN[facility] FOLLOW UP VISIT Subjective Patient ID: Sarath is a 79 y.o. male who presents for Wound Care HPI 79-year-old man with medical history significant for rheumatoid arthritis currently on prednisone, Sjogren syndrome, depression, hypertension and COPD presents to the wound center for follow-up visitfor left lower extremity wound. According to the wound edges have been less macerated since use of Skin- Prep. Wound overall measuring smaller in size. brought in venous and arterial Doppler studies performed in 2021. Based on the results patienthad normal ABIs and no evidence of venous reflux. Though he does have history of left GSV ablation. also had pathology report from a biopsy in 2021. Results were reported as granulation tissue versus pyoderma gangrenosum. We discussed the option of repeat punch biopsy in the office. Patient stated that he would be agreeable to a biopsy only under anesthesia as it would be too painful for him. Review of Systems Constitutional: Negative for activity change, appetite change, chills and fever. Respiratory: Negative for cough and chest tightness. Cardiovascular: Positive for leg swelling. Negative for chest pain. Skin: Positive for color change and wound. Negative for rash. The following have been reviewed and updated as appropriate in this visit: Current Medications[1] The patient is allergic to heparin. Past Medical History: Diagnosis Date Anemia Chronic kidney disease COPD (chronic obstructive pulmonary disease) (HCC) Hypertension Nocturnal hypoxemia Peripheral neuropathy Pyoderma gangrenosum Rheumatoid arthritis (HCC) Sero Negative Sjogren syndrome ([facility]) No past surgical history on file. No family history on file. Social History[2] Objective Physical Exam Vitals and nursing note reviewed. Constitutional: General: He is not in acute distress. Appearance: He is not ill-appearing. Cardiovascular: Rate and Rhythm: Normal rate. Pulmonary: Effort: Pulmonary effort is normal. No respiratory distress. Musculoskeletal: Left lower leg: Edema present. Neurological: Mental Status: He is alert and oriented to person, place, and time. Mental status is at baseline. Procedures performed: Procedures Assessment/Plan Primary Diagnosis: Non-pressure chronic ulcer of left lower leg, unspecified ulcer stage (HCC) [L97.929] Assessment/Plan Wound Assessment: Wound 05/23/25 Distal;Left Tibial (Active) Wound Acuity: Chronic 06/01/25 1200 Approximate Date Wound Aquired: 06/11/21 05/23/25 1400 Wound Length (cm) 10 cm 06/01/25 1200 Wound Width (cm) 4.5 cm 06/01/25 1200 Wound Surface Area (cm^2) 35.34 cm^2 06/01/25 1200 Wound Depth (cm) 0.1 cm 06/01/25 1200 Wound Volume (cm^3) 2.356 cm^3 06/01/25 1200 Wound Volume Healing % 13.1 06/01/25 1200 Wound Bed Assessment Biofilm;Painful;Sloughing 06/01/25 1200 Kaelyn-Wound Assessment Dry;Intact 06/01/25 1200 Shape Irregular 06/01/25 1200 Margins Attached edges 06/01/25 1200 Drainage Description Serous 06/01/25 1200 Drainage Amount Moderate 06/01/25 1200 Wound Odor Absent 06/01/25 1200 Treatment Dakins solution;Collagenage-Santyl 06/01/25 1200 Dressing type Gauze;Kerlix 06/01/25 1200 Dressing Changed New 06/01/25 1200 1. Non-pressure chronic ulcer of left lower leg, unspecified ulcer stage (HCC) (Primary) 79-year-old man with open wound left lower extremity venous versus pyoderma. Patient declining another punch biopsy in the office today. Will continue with current dressing for 1 more week. Spent considerable time counseling and patient on how to change dressing. Medical records reviewed as above. Return for nurse visit next week. Will order updated ABIs and venous Doppler studies. - Venous doppler lower extremity bilateral; Future Return in about 2 weeks (around 06/15/2025). Prepared/Electronically Signed by: Stacey Espinoza MD, 06/03/25 11:27 AM I spent a total of 30 minutes on this visit including reviewing records, [id number] encounter, documentation and counseling patient on his condition and addressing concerns and questions [1] Current Outpatient Medications Medication Sig Dispense Refill acetaminophen (TYLENOL) 500 mg tablet Take 1,000 mg by mouth every 6 (six) hours as needed for mildpain (1-3). albuterol HFA 90 mcg/actuation inhaler Inhale 2 puffs every 6 (six) hours as needed for shortness of breath. for dyspnea amLODIPine (NORVASC) 2.5 mg tablet Take 2.5 mg by mouth in the morning. ammonium lactate (LAC-HYDRIN) 12 % lotion Apply topically as needed for dry skin. 400 g 1 clobetasoL (TEMOVATE) 0.05 % cream APPLY CREAM TOPICAL ONCE DAILY TO PERIWOUND OF AFFECTED AREA collagenase (SantyL) ointment Apply topically in the morning for 15 days. 90 g 2 doxycycline (VIBRA-TABS) 100 mg tablet Take 100 mg by mouth in the morning and 100 mg before bedtime. DULoxetine (CYMBALTA) 20 mg capsule Take 20 mg by mouth nightly. fluticasone propionate (FLONASE) 50 mcg/actuation nasal spray Administer 2 sprays into each nostrildaily. gabapentin (NEURONTIN) 600 mg tablet Take 600 mg by mouth in the morning and 600 mg before bedtime. HYDROmorphone (DILAUDID) 2 mg tablet Take 2 mg by mouth 3 (three) times a day as needed. levoFLOXacin (LEVAQUIN) 750 mg tablet Take 750 mg by mouth in the morning. metoprolol succinate XL (Toprol XL) 50 mg 24 hr tablet Take 50 mg by mouth in the morning. metoprolol tartrate (LOPRESSOR) 25 mg tablet Take 25 mg by mouth in the morning and 25 mg before bedtime. vdrdfsvdnuwc-noxmcoyx-gwirwn (Multivitamin 50 Plus) tablet TAKE EVERY DAY naloxone (NARCAN) 4 mg/actuation nasal spray Administer 1 spray into left nostril once as needed for opioid reversal. ostomy supplies (Skin Prep Wipes) misc 4 Sachets in the morning. 120 each 2 predniSONE (DELTASONE) 5 mg tablet Take 5 mg by mouth in the morning. rivaroxaban (XARELTO) 10 mg tablet Take 10 mg by mouth in the morning. Trelegy Ellipta 100-62.5-25 mcg inhaler Inhale 1 puff in the morning. Trelegy Ellipta 200-62.5-25 mcg inhaler Inhale 1 puff in the morning. umeclidinium-vilanteroL (ANORO ELLIPTA) 62.5-25 mcg/actuation blister with device Inhale 1 puff in the morning. No current facility-administered medications for this visit. [2] Social History Socioeconomic History Marital status: Tobacco Use Smoking status: Former Current packs/day: 2.00 Average packs/day: 2.0 packs/day for 60.9 years (121.8 ttl pk-yrs) Types: Cigarettes Start date: 1964 Smokeless tobacco: Never Substance and Sexual Activity Alcohol use: Not Currently Drug use: Never Social Drivers of Health Food Insecurity: No Food Insecurity (12/06/2020) Received from [facility] Hunger Vital Sign Within the past 12 months, you worried that your food would run out before you got the money to buymore.: Never true Within the past 12 months, the food you bought just didn't last and you didn't have money to get more.: Never true Transportation Needs: No Transportation Needs (03/12/2023) [facility] Lack of Transportation (Medical): No Lack of Transportation (Non-Medical): No Patient Unable or Declines to Respond: No Depression: Not at risk (10/22/2020) Received from [facility] PHQ-2 PHQ-2 Total Score: 0 Tobacco Use: Medium Risk (05/23/2025) Patient History Smoking Tobacco Use: Former Smokeless Tobacco Use: Never Stress: No Stress Concern Present (12/06/2020) Received from [facility] [employer] - Occupational Stress Questionnaire Feeling of Stress : Only a little documented in this encounter Plan of Treatment Upcoming Encounters Date Type Department Care Team (Late st Contact Info) Description 06/14/2025 11:30 AM EST Nurse Only [facility] Department of Wound Care [address] [place] [address] 06/15/2025 11:00 AM EST Ancillary Procedure [facility] Department of Vascular Ultrasound Imaging [address] [place] [address] Stacey Espinoza MD [address] [place] [address] Scheduled Orders Name Type Priority Associated Diagnoses Orde r Schedule Venous doppler lower extremity bilateral Vascular Ultrasound Routine Non-pressure chronic ulcer of left lower leg, unspecified ulcer stage (HCC) 1 Occurrences starting 06/01/2025 until 11/29/2026 documented as of this encounter Visit Diagnoses Diagnosis Non-pressure chronic ulcer of left lower leg, unspecified ulcer stage (HCC)- Primary documented in this encounter Care Teams Patient Liaison Relationship Specialty Start Date End Date Kia Stroud MD [address] [place] [address] [address] [place] [address] PCP - General Family Medicine 05/08/25 documented as of this encounter
[2025-06-04 11:02] VITALS: BP 100/68; PULSE 86; O2SAT 92; BMI 29.0
--- NOTE | 2025-06-04 11:02 | HO.NEPHOV ---
Vital Signs 06/04/25 11:02 Height 5 ft 6 in Weight 180 lb BMI 29.0 BP 100/68 Blood Pressure Location Rt brachial Position Sitting Pulse 86 Pulse Source Pulse Oximeter Pulse Oximetry (%) 92 Oxygen Delivery Method Room Air Intake Visit Reasons: [facility] F/U Food Products Tester Required: No Accompanied by: Spouse Allergies heparin (porcine) Allergy (Severe, Verified 06/04/25 11:06) HIT Medication List - Last Reconciled 06/04/25 by Terrance Scruggs MD acetaminophen (Tylenol Extra Strength) 1,000 mg PO Q6H PRN albuterol sulfate 90 mcg/actuation 2 puffs inhalation Q6H PRN alpha lipoic acid 600 mg PO DAILY amlodipine 2.5 mg PO DAILY ammonium lactate 12% 0 appl topical benfotiamine 300 mg PO DAILY collagenase clostridium histo. (Santyl) topical duloxetine 20 mg PO BEDTIME fluticasone propionate 50 mcg/actuation (Flonase Allergy Relief) 2 sprays intranasal DAILY PRN sdhjwptdrpa-fottaeafm-tthfsdgw 100-62.5-25 mcg (Trelegy Ellipta) 1 inh inhalation DAILY gabapentin 600 mg PO BID 30 days hydromorphone 2 mg PO DAILY PRN 30 days metoprolol succinate ER 50 mg PO DAILY miscellaneous medical supply As directed multivitamin 1 tab PO DAILY naloxone 4 mg/actuation (Narcan) 4 mg intranasal Q2M PRN prednisone 5 mg PO DAILY HPI Comments Details: The patient is a 79 year old individual presenting for follow-up of a recent acute kidney injury. The last blood test was on May 19 during a hospitalization, which showed kidney function at approximately 46%. At the time of discharge, the creatinine level was 1.4. The patient's renal function has a history of fluctuations, and the baseline kidney function is noted to be around 50-55%, with a desired creatinine level of 1.2 or 1.3. The patient reports feeling well with normal bowel function and no urinary difficulties. Current medications include inhalers, amlodipine 2.5 mg, duloxetine, gabapentin, metoprolol, and prednisone. The patient is also being followed by pulmonology, for which lung x-rays are planned, and has an upcoming cardiology appointment. The patient has a leg wound which is being managed at [facility], and is not currently on antibiotics. 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 Acute pulmonary embolism with acute cor pulmonale Acute pulmonary embolism Cardiac arrest CKD (chronic kidney disease) stage 3, GFR 30-59 ml/min Sjogren's disease Leg pain, bilateral Elevated serum creatinine COPD (chronic obstructive pulmonary disease) HTN (hypertension) Rheumatoid arthritis Chronic ulcer of leg Surgical History History of ankle surgery History of hernia repair History of left knee replacement Family History Sister Breast cancer Father Aneurysm Mother Angina at rest Other No family history of coronary artery disease Social History Household Members: Spouse Housing: House Do you presently have visiting nurse or other home services: No Alcohol intake: current Alcohol intake frequency: does not drink Comment: restraints Patient Tobacco Use Status: Former Tobacco user Tobacco use type: Cigarette Cigarette Packs Per Day: 1 Years Smoked: quit + years e-Cigarette/Vaping Use: Never Used Second Hand Smoke Exposure: Yes Advance Directives Date on File: 12/23/21 service: No Current occupational status: retired Cognitive needs: Yes (Wheelchair) Hearing needs: No Vision needs: Yes (Pt wear glasses. ) Review of Systems Const Denies fever(s) and Denies weight loss Card Denies chest pain Resp Denies cough and Denies hemoptysis GI Denies abdominal pain, Denies diarrhea and Denies nausea Musc Denies back pain Neuro Denies focal weakness Physical Exam Vital Signs: Last Vital Signs Pulse 86 06/04/25 11:02 BP 100/68 06/04/25 11:02 Pulse Ox 92 06/04/25 11:02 Oxygen Delivery Method Room Air 06/04/25 11:02 BMI result Body Mass Index 29.0 Comfortable Neck supple no JVD. Lungs entry equal no rales. Heart S1-S2 heard no gallop or rub. Abdomen soft nontender. Neuro alert awake oriented. No asterixis. Extremities trace edema. LEft leg wound Assessment & Plan Assessment & Plan (1) Renal insufficiency: Code(s): N28.9 - Disorder of kidney and ureter, unspecified Category: Medical Plan - The patient presents for follow-up of a recent acute kidney injury, with a creatinine of 1.4 at hospital discharge. Most likely from tubular injury - A blood test to check creatinine was ordered for today to assess renal function. - The patient was instructed to maintain adequate fluid intake. - If lab results are stable, follow-up will be in 4-6 months; otherwise, the patient will be contacted. Orders: Orders Basic Metabolic Panel Today Terrance Scruggs MD N28.9 - Disorder of kidney and ureter, unspecified Medications: Changed From duloxetine 40 mg (2 x 20 mg) PO BEDTIME 30 days 60 caps 0RF neuropathic pain To duloxetine 20 mg PO BEDTIME Judy Hartmann MD Coding Level of Care Code Est Pt Level 4 (57918) Diagnoses Renal insufficiency N28.9
--- OUTSIDE RECORDS SUMMARY | 2025-06-04 14:09 | XMS_ITS | Clinical Summary ---
Author Organization [facility] Address [address] [place] [address] Phone Care Team Providers Care Control Clerk Subassembly Name Role Phone Kia Stroud MD Primary Care Provider [phone] Allergies No known active allergies Medications umeclidinium-vi [...] Noted Date Diagnosed Date Rheumatoid arthritis of [facility] sites with negative rheumatoid factor 12/14/2021 [...] off Inflixamab. He is being followed by [facility] and receiving a prednisone [...] off Inflixamab. He is being followed by [facility] and receiving a prednisone taper, current dose 10 mg/day. Recent admission for cellulitis /wound infection of LE requiring Surgery,c/b DVT, PE,cardiac arrest now on coumadin. Followed by [facility] for significant skin ulceration -Will need to hold any biologic treatment until wounds healed. RA does not appear active currently on pred 10 mg -Will need derm involved for LE ulcers, ? PG- appointment scheduled with senior systems architect in [place] in near future -Unclear if [...] off Inflixamab. He is being followed by [facility] [place] and receiving a prednisone taper, current dose [...] now on prednisone taper , followed by [facility] Would recommend dermatology involvement Consider [facility] derm[facility]um [facility] Assessment & Plan (12/15/2021 12:00 AM EDT): Long hx of bilateral LE wounds Treated in past for venous stasis with minimal improvement Most recent pathology ? Venous stasis vs PG Resolution of ulcerations on Inflixamab supports the diagnosis of PG Off Inflixamab since 07/01 with recurrent ulcerations, now on prednisone taper , followed by [facility] Would recommend dermatology involvement Consider [facility] derm[facility]heum [facility] Venous insufficiency 09/30/2021 Smoking history [...] Date/Time Associated Diagnosis Comments COMPREHENSIVE METABOLIC PANEL (CMP) Routine 02/13/2022 10:30 AM EDT Cardiac arrest from Last 3 Months or Most Recently Relevant to Health Maintenance Results * (ABNORMAL) Comprehensive metabolic panel (02/13/2022 10:30 AM EDT) SODIUM 143 133 - 146 mmol/L [facility] POTASSIUM 4.7 3.3 - 5.1 mmol/L [facility] CHLORIDE 105 96 - 108 mmol/L [facility] CO2 27 21 - 35 mmol/L [facility] BUN 43(H) 6 - 19 mg/dL [facility] CREATININE 0.80 0.5 - 1.5 mg/dL [facility] GLUCOSE 90 70 - 99 mg/dL [facility] ALBUMIN 3.5(L) 3.9 - 4.8 g/dL [facility] TOTAL PROTEIN 6.2(L) 6.5 - 8.0 g/dL [facility] CALCIUM 9.5 8.4 - 10.3 mg/dL [facility] ALKALINE PHOSPHATASE 72 39 - 117 U/L [facility] TOTAL BILIRUBIN <0.2 0.0 - 1.2 mg/dL [facility] AST 18 0 - 37 U/L [facility] ALT 34 0 - 40 U/L [facility] GLOBULIN 2.7 1 - 4.8 g/dL [facility] EGFR 92 >59 mL/min/1.7 3m2 [facility] Comment:Estimated glomerular filtration rate calculated using the CKD-EPI refit equation. ANION GAP 16 10 - 20 mmol/L [facility] Blood 02/13/2022 10:3 0 AM EDT 02/13/2022 11:28 PM EDT us Alesia Cornejo MD LAB BLOOD BKR ORDERABLES Final Result [facility] [address] [place] [address] from Last 3 Months or Most Recently Relevant to Health Maintenance Insurance [employer] PPO MEDICARE REPLACEMENT AETNA PPO MEDICARE REPLACEMENT AETNA O MEDICARE REPLACEMENT AETNA O MEDICARE REPLACEMENT AETNA O MEDICARE REPLACEMENT AETNA O MEDICARE REPLACEMENT AETNA O MEDICARE REPLACEMENT AETNA O MEDICARE REPLACEMENT AETNA PPO MEDICARE REPLACEMENT Care Teams Control Clerk Subassembly Relationship Specialty Start Date End Date Kia Stroud MD [address] [place] [phone] PCP - General Internal Medicine 02/25/22 Additional Source Comments The information contained in this document represents components of the legal health record. It is not the complete legal health record.[facility]
--- OUTSIDE RECORDS SUMMARY | 2025-06-04 14:09 | XMS_ITS | Clinical Summary ---
Author Organization [facility] Address [address] [place] [address] Care Team Providers Care Elementary Supervisor Name Role Phone Kia Stroud MD Primary Care Provider Allergies Active Allergy Reactions Criticality Noted Date Comments Heparin High 08/04/2022 Other Reaction(s): Cardiac arrest Medications acetaminophen (TYLENOL) 500 mg tablet Take 1,000 mg by mouth every 6 (six) hours as needed for mild pain (1-3). 2 Active albuterol HFA 90 mcg/actuation inhaler Inhale 2 puffs every 6 (six) hours as needed for shortness of breath. for dyspnea 1 Active amLODIPine (NORVASC) 2.5 mg tablet Take 2.5 mg by mouth in the morning. 5 Active clobetasoL (TEMOVATE) 0.05 % cream APPLY CREAM TOPICAL ONCE DAILY TO PERIWOUND OF AFFECTED AREA 5 Active doxycycline (VIBRA-TABS) 100 mg tablet Take 100 mg by mouth in the morning and 100 mg before bedtime. 5 Active DULoxetine (CYMBALTA) 20 mg capsule Take 20 mg by mouth nightly. 2 Active fluticasone propionate (FLONASE) 50 mcg/actuation nasal spray Administer 2 sprays into each nostril daily. 1 Active Trelegy Ellipta 100-62.5-25 mcg inhaler Inhale 1 puff in the morning. 5 Active Trelegy Ellipta 200-62.5-25 mcg inhaler Inhale 1 puff in the morning. 5 Active gabapentin (NEURONTIN) 600 mg tablet Take 600 mg by mouth in the morning and 600 mg before bedtime. 5 Active HYDROmorphone (DILAUDID) 2 mg tablet Take 2 mg by mouth 3 (three) times a day as needed. 3 Active levoFLOXacin (LEVAQUIN) 750 mg tablet Take 750 mg by mouth in the morning. 5 Active metoprolol succinate XL (Toprol XL) 50 mg 24 hr tablet Take 50 mg by mouth in the morning. 5 Active metoprolol tartrate (LOPRESSOR) 25 mg tablet Take 25 mg by mouth in the morning and 25 mg before bedtime. 3 Active naloxone (NARCAN) 4 mg/actuation nasal spray Administer 1 spray into left nostril once as needed for opioid reversal. 3 Active predniSONE (DELTASONE) 5 mg tablet Take 5 mg by mouth in the morning. 5 Active rivaroxaban (XARELTO) 10 mg tablet Take 10 mg by mouth in the morning. 3 Active umeclidinium-santiago anteroL (ANORO ELLIPTA) 62.5-25 mcg/actuation blister with device Inhale 1 puff in the morning. 1 Active multivitamin-min erals-lutein (Multivitamin 50 Plus) tablet TAKE EVERY DAY 9 Active ostomy supplies (Skin Prep Wipes) misc 4 Sachets in the morning. 120 each 2 5 Active collagenase (SantyL) ointment Apply topically in the morning for 15 days. 90 g 2 5 06/07/20 25 Active ammonium lactate (LAC-HYDRIN) 12 % lotion Apply topically as needed for dry skin. 400 g 1 5 05/23/20 26 Active sodium hypochlorite (DAKIN'S) 0.25 % external solution Irrigate with as directed once for 1 dose. 473 mL 1 5 05/23/20 25 Encounters Date Type Department Care Team Description 06/01/2025 11:30 AM EST Office Visit [facility] Department of Wound Care [address] [place] [address] Stacey Espinoza MD Non-pressure chronic ulcer of left lower leg, unspecified ulcer stage (HCC) (Primary Dx) 05/23/2025 2:00 PM EST Office Visit [facility] Department of Wound Care [address] [place] [address] Stacey Espinoza MD Pyoderma gangrenosa (Primary Dx) from Last 3 Months Social History Tobacco Use Types Packs/Day Years Used Date Smoking Tobacco: Former Cigarettes 2 60.9 S tarted: 1965 Smokeless Tobacco: Never Tobacco Cessation:Counseling Given: No Alcohol Use Standard Drinks/Week Comments Not Currently [...] No / Unsure 06/01/2025 9:44 AM EST Last Filed Vital Signs Vital Sign Reading Time Taken Comments Blood Pressure 126/80 06/01/2025 11:17 AM EST Pulse 86 06/01/2025 11:17 AM EST Temperature - - Respiratory Rate 18 06/01/2025 11:17 AM EST Oxygen Saturation 91% 06/01/2025 11:17 AM EST Inhaled Oxygen Concentration - - Weight 81.6 kg (180 lb) 05/23/2025 2:32 PM EST Height 167.6 cm (5' 6 ) 05/23/2025 2:32 PM EST Body Mass Index 29.05 05/23/2025 2:32 PM EST Plan of Treatment Upcoming Encounters Date Type Department Care Team (Late st Contact Info) Description 06/14/2025 11:30 AM EST Nurse Only [facility] Department of Wound Care [address] [address] 06/15/2025 11:00 AM EST Ancillary Procedure [facility] Department of Vascular Ultrasound Imaging [address] [place] [address] Stacey Espinoza MD [address] [place], [place] [id number] Health Maintenance Due Date Last Done Comments HIV Screening 1945 Medicare Annual Wellness (AWV) 1945 DTaP,Tdap,and Td Vaccines (1 - Tdap) 11/06/1963 Hepatitis C Screening 11/06/1963 Zoster Vaccines (1 of 2) 11/06/1995 COVID-19 Vaccine (3 - 2024- season) 2025 06/10/2021, 09/04/2020 Influenza Vaccine (#1) 2025 , 05/05/2020, 03/29/2020, Additional history exists Pneumococcal Vaccine, 50+ Years Completed 07/12/2017, 08/12/2015 HPV Vaccines Aged Out No longer eligi ble based on patient's age to complete this topic Hepatitis A Vaccines Aged Out No long er eligible based on patient's age to complete this topic Meningococcal Vaccine Aged Out No sadie armando eligible based on patient's age to complete this topic Insurance A[employer] MANAGED MEDICARE PPO [place]ONTE Care Teams Elementary Supervisor Relationship Specialty Start Date End Date Maximus, Kia Liu MD [address] [place] [address] [address] [id number] PCP - General Family Medicine 05/08/25
== END 2025-06-04 11:23 | disposition home or self-care (01) ==
LOC: HO.HKA 11:02
PROVIDERS: PCP Internal Medicine; Visit Provider Internal Medicine Hypertension Specialist
DX: N28.9 Disorder of kidney and ureter, unspecified (principal)
CPT/HCPCS: 99214

== ENCOUNTER 2025-06-04 11:32 | Outpatient (REF) | payer MEDICARE, SELFPAY ==
[2025-06-04 14:05] LABS: Anion Gap 12 (12-20); Blood Urea Nitrogen 22 mg/dL (9-16); Calcium 9.9 mg/dL (8.4-10.2); Carbon Dioxide 30 mmol/L (22-29); Chloride 105 mmol/L (96-108); Estimated Glomerular Filt Rate 57; Potassium 4.5 mmol/L (3.3-5.1); Sodium 142 mmol/L (135-145)
== END 2025-06-04 11:33 | disposition home or self-care (01) ==
LOC: HO.10HDL 11:32
PROVIDERS: Visit Provider Internal Medicine Hypertension Specialist
DX: N28.9 Disorder of kidney and ureter, unspecified (principal)
CPT/HCPCS: 36415; 80048; 99212

== ENCOUNTER 2025-06-27 10:18 | Outpatient (AMB) | payer MEDICARE, SELFPAY ==
--- NOTE | 2025-06-27 10:26 | MHC.PC.OV ---
Vital Signs 06/27/25 10:28 Height 5 ft 6 in Weight 185 lb 13.595 oz BMI 30.0 BP 110/64 Blood Pressure Location Lt brachial Position Sitting Respiration 18 Pulse 82 Pulse Source Pulse Oximeter Temp 97.3 F Temp Source Temporal Artery Scan Pulse Oximetry (%) 93 Oxygen Delivery Method Room Air Intake Visit Reasons: RA, pyoderma gangrenosum Medical Transcriptionist Required: No Accompanied by: Spouse Allergies heparin (porcine) Allergy (Severe, Verified 06/27/25 10:27) HIT Tobacco use date assessed: 05/31/25 Fall risk assessment: No Falls in past year Last assessed Fall Risk: 06/27/25 Dental Screening Dental Screen Date: 03/02/25 HPI HPI Comments History of Present Illness Details History of Present Illness The patient is a 79-year-old obese male presenting for a follow-up visit. He has noted a 5-pound weight gain since May. He was last seen in February 2025. The patient was hospitalized on May 12 for metabolic encephalopathy with sepsis and hypoxic respiratory failure, presumed to be from pneumonia and a COPD exacerbation. He was treated with IV antibiotics and prednisone, and was discharged on doxycycline on May 19. During the hospitalization, he also had an acute kidney injury with a creatinine of 1.4, which has since returned to his baseline of 1.2 to 1.23. He denies any urinary symptoms and has a follow-up scheduled with nephrology in May 2025. 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 He receives wound care at [facility] after changing from a previous provider due to dissatisfaction with care and staffing changes. 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 He believes his skin condition is related to [place] exposure. He complains of pain from peripheral neuropathy, which is managed by pain management with hydromorphone, and he is also taking gabapentin 600 mg twice a day, duloxetine 20 mg at bedtime, and Tylenol. The pain wakes him from sleep between 3:30 and 4:00 AM. He was started on alpha-lipoic acid for the neuropathy by rheumatology, which he feels has helped. A prior attempt to increase duloxetine was not sustained. His medical history is significant for COPD, for which he uses Trelegy, albuterol, and 2 liters of oxygen via nasal cannula. 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 He has declined a sleep study. Cardiovascular history includes cardiac arrest in January 2022, a history of acute pulmonary embolism, and heparin-induced thrombocytopenia. He has an ascending aortic dilatation of 4.1 cm as of October 2023. An echocardiogram in October 2024 showed an ejection fraction of 55% with basal inferolateral hypokinesis. He also has hypertension, peripheral vascular disease, and hypercholesterolemia. Other chronic conditions include major depressive disorder, rheumatoid arthritis, and Sjogren's disease. He is followed by rheumatology, continues prednisone, and anakinra has been considered. For health maintenance, his Cologuard was negative in May 2024. He has a history of smoking. Health Maintenance - Cologuard was negative in May 2024. - He was advised to enroll in a lung cancer screening program based on a recent CTA. - Discussed the importance of chair exercises, increased mobility, and adequate fluid intake to promote circulation and wound healing. - He is scheduled for follow-up with nephrology in May 2025 and pain management in May 2025. Social History - Substance Use: He has a history of smoking. - Functional Status: His mobility is limited; he can perform exercises while sitting but walking is difficult as it puts pressure on his leg wound and can cause it to open. - Nutritional Intake: He does not drink much water and was advised to increase fluid intake to stay well-hydrated, which aids in healing. - Weight Management: He has gained 5 pounds since May. Results - Labs (May 19): Showed stable anemia, normal platelets, and good electrolytes. - Labs (Renal function): Creatinine has returned to a baseline of 1.23. - Labs (Cholesterol): Last test was in September 2024. - Imaging (CTA Chest, March 22): Showed more retrosternal emphysema with no evidence of pulmonary embolism. - Imaging (Echocardiogram, October 2024): EF 55% with basal inferolateral hypokinesis. - Imaging (Aorta): Ascending aortic dilatation measured 4.1 cm in October 2023. - Tests (Cologuard, May 2024): Negative. 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 Acute pulmonary embolism with acute cor pulmonale Acute pulmonary embolism Cardiac arrest CKD (chronic kidney disease) stage 3, GFR 30-59 ml/min Sjogren's disease Leg pain, bilateral Elevated serum creatinine COPD (chronic obstructive pulmonary disease) HTN (hypertension) Rheumatoid arthritis Chronic ulcer of leg Surgical History History of ankle surgery History of hernia repair History of left knee replacement Family History Sister Breast cancer Father Aneurysm Mother Angina at rest Other No family history of coronary artery disease Social History Household Members: Spouse Housing: House Do you presently have visiting nurse or other home services: No Alcohol intake: current Alcohol intake frequency: does not drink Comment: restraints Patient Tobacco Use Status: Former Tobacco user Tobacco use type: Cigarette Cigarette Packs Per Day: 1 Years Smoked: quit + years e-Cigarette/Vaping Use: Never Used Second Hand Smoke Exposure: Yes Advance Directives Date on File: 12/23/21 service: No Current occupational status: retired Cognitive needs: Yes (Wheelchair) Hearing needs: No Vision needs: Yes (Pt wear glasses. ) Questionnaire Thrive Questionnaire Date Thrive assessed: 03/01/25 I am a: Parent/Caregiver What is your living situation today?: I have a steady place to live Within the past 12 months, did the food you bought not last and you didn't have the money to get more?: Never true Within the past 12 months, did you worry whether your food would run out before you got money to buy more?: Never true Do you have trouble paying for medicines?: No Do you have trouble getting transportation to medical appointments?: No Do you have trouble paying your heating and electricity bill?: No Do you have trouble taking care of your child, family member or friend?: No Do you have trouble with day-to-day activities such as bathing, preparing meals, shopping, managing finances, etc.?: Yes Are you currently unemployed and looking for a job?: No Are you interested in more education?: No Please select the resources that you would like help with: None Currently or been in a relationship where the following occur: No concerns reported THRIVE Score: 0 RENETTA-7 AMB Questionnaire RENETTA-7 Date RENETTA - 7 assessed: 09/04/24 Source: Developed by Drs. Ronal Rivero, Cecelia Cortez, Johny Ocasio and colleagues, with an educational samantha from [employer]. Review of Systems Narrative Review of Systems - General: Reports a 5-pound weight gain since May. - Integumentary: Reports a chronic ulcer on the left lower leg. - Neurological: Reports pain from peripheral neuropathy that also irritates his leg wound. - Sleep: Reports waking up around 3:30-4:00 AM due to neuropathy pain. - Genitourinary: Denies urinary symptoms. - Psychiatric: Denies feeling depressed. Physical exam (Primary Care) Vital Signs: Last Vital Signs Temp 97.3 F 06/27/25 10:28 Pulse 82 06/27/25 10:28 Resp 18 06/27/25 10:28 BP 110/64 06/27/25 10:28 Pulse Ox 93 06/27/25 10:28 Oxygen Delivery Method Room Air 06/27/25 10:28 BMI result Body Mass Index 30.0 Tobacco/Smoking Status: Tobacco use Status Tobacco use date assessed 05/31/25 06/27/25 10:28 Patient Tobacco Use Status Former Tobacco user 06/27/25 10:28 Tobacco use type Cigarette 06/27/25 10:28 e-Cigarette/Vaping Use Never Used 06/27/25 10:28 Thrive Assessment: Date of Thrive Assessment Date Thrive assessed 03/01/25 06/27/25 10:28 Currently or been in a relationship where the following occur: No concerns reported Narrative Physical Exam - Constitutional: Obese male. - Cardiovascular: Regular rate and rhythm on auscultation. - Respiratory: Lungs are quiet to auscultation with no wheezing. Const General: alert; No acute distress Eyes Conjunctivae: conjunctivae normal Resp Auscultation: clear to auscultation bilaterally Cardio Rate: regular rate Rhythm: regular rhythm GI Inspection: Yes normal to inspection Extrem General: Yes normal to inspection and No edema Coding Level of Care Code Est Pt Level 4 (63205) Add On Problem Visit Only Diagnoses HTN (hypertension) I10 Hypertriglyceridemia E78.1 Ascending aorta dilatation I77.810 Rheumatoid arthritis of multiple sites with negative rheumatoid factor M06.09 Rheumatoid arthritis location: multiple sites Rheumatoid factor presence: without rheumatoid factor Chronic pain of left lower extremity M79.605; G89.29 Peripheral polyneuropathy G62.9 Peripheral neuropathy type: polyneuropathy, unspecified COPD (chronic obstructive pulmonary disease) J44.9 Nocturnal hypoxemia G47.34 Pyoderma gangrenosum L88 Personal history of tobacco use Z87.891 MDD (major depressive disorder), single episode F32.9 Assessment & Plan Assessment & Plan (1) HTN (hypertension): Code(s): I10 - Essential (primary) hypertension Category: Medical Plan: Continue with blood pressure medication. Decrease salt intake and exercise on amlodipine 2.5 mg once a day and metoprolol 50 mg once a day (2) Hypertriglyceridemia: Code(s): E78.1 - Pure hyperglyceridemia Category: Medical Plan: Avoid fried foods, chicken skin, eggs, butter margarine, pastries and meat. Be it pork or beef they have a lot of cholesterol continue to monitor (3) Ascending aorta dilatation: Comment: October 2023 4.1 Code(s): I77.810 - Thoracic aortic ectasia Category: Medical Plan: Continue to monitor ascending aorta dilatation (4) Rheumatoid arthritis: Comment: Ddx 1990s Treated with Enbrel for 15 years Changed to infliximab and prednisone at the onset of leg wounds with good response Switched to Kevzara 2021 due to breakthrough synovitis with good response initially Changed to Rinvoq without significant improvement in wounds Subsequently failed Humira, MMF for his wounds Code(s): M06.9 - Rheumatoid arthritis, unspecified Category: Medical Qualifiers: Rheumatoid arthritis location: multiple sites Rheumatoid factor presence: without rheumatoid factor Qualified Code(s): M06.09 - Rheumatoid arthritis without rheumatoid factor, multiple sites Plan: Patient is being seen by Dermatology and Rheumatology (5) Chronic pain of left lower extremity: Code(s): M79.605 - Pain in left leg; G89.29 - Other chronic pain Category: Medical Plan: Patient sees pain management on hydromorphone (6) Peripheral neuropathy: Code(s): G62.9 - Polyneuropathy, unspecified Category: Medical Qualifiers: Peripheral neuropathy type: polyneuropathy, unspecified Qualified Code(s): G62.9 - Polyneuropathy, unspecified Plan: Patient has been started on-lipoic acid also (7) COPD (chronic obstructive pulmonary disease): Code(s): J44.9 - Chronic obstructive pulmonary disease, unspecified Category: Medical Plan: On albuterol inhaler and Trelegy (8) Nocturnal hypoxemia: Code(s): G47.34 - Idiopathic sleep related nonobstructive alveolar hypoventilation Category: Medical Plan: On oxygen 2 L nasal cannula (9) Pyoderma gangrenosum: Code(s): L88 - Pyoderma gangrenosum Category: Medical Plan: Continue to follow-up with dermatology and rheumatology (10) Personal history of tobacco use: Comment: CT 10/30/2023 Code(s): Z87.891 - Personal history of nicotine dependence Category: Social Hx Plan: CT lung comment on advised patient to be entered into the lung cancer screening program. (11) MDD (major depressive disorder), single episode: Code(s): F32.9 - Major depressive disorder, single episode, unspecified Category: Medical Plan: Continuing with duloxetine Plan Plan Patient was informed and verbally consented to the use of an ambient scribe for clinic note documentation during this visit. 1. Peripheral Neuropathy The patient's peripheral neuropathy pain is not well controlled on his current regimen of gabapentin, Tylenol, and duloxetine 20 mg, and it continues to disrupt his sleep. He reports some benefit from alpha-lipoic acid. The plan is to increase duloxetine to 40 mg daily by having him take two 20 mg tablets. It was emphasized that he should try the increased dose for at least one month to properly assess its effectiveness, as it takes time to work. He will continue his other pain medications, including hydromorphone from his paint preparer. 2. Chronic Leg Ulcer The patient will continue to follow up with the [facility] wound care center, where his left lower leg ulcer has been showing improvement. He was counseled on the importance of improving circulation for healing through seated exercises, staying well-hydrated, and proper nutrition. He will also continue to follow up with dermatology and rheumatology for management of his underlying conditions. 3. Chronic Obstructive Pulmonary Disease The patient will continue his current COPD regimen, which includes Trelegy, albuterol, and home oxygen. His oxygen use at home maintains his saturation above 90%. Reiterated the recommendation to be entered into the lung cancer screening program. He will continue follow-up with his instrument specialist. 4. Continuity Of Care Per the patient's request for a new perspective on his complex care, a referral was made and a follow-up appointment was scheduled with Dr. Adams for his primary care. The patient intends to maintain his current follow-up schedule. 5. Hypertension Continue amlodipine 2.5 mg and metoprolol 50 mg once daily. 6. Ascending Aortic Dilatation Continue to monitor. Discussion Notes I reviewed the patient's extensive and complex medical history, including his recent hospitalization for sepsis and respiratory failure. We discussed his persistent peripheral neuropathy pain, which disrupts his sleep. I explained that his current dose of duloxetine is very low and recommended an increase to 40 mg daily, emphasizing that it requires consistent use for at least a month to determine efficacy, which he and his caregiver agreed to try. We discussed the importance of promoting circulation to aid in his leg wound healing, and I encouraged him to perform seated exercises for his legs and other body parts, as his mobility is limited. I also advised him to increase his fluid intake, as he does not drink much water. I performed a brief physical exam, listening to his heart and lungs, and reassured him that his heart rhythm was regular and his lungs sounded quiet. Per his request, I facilitated a transfer of his primary care to my colleague, Dr. Adams, for a fresh perspective on his management, and scheduled a follow-up appointment. I reassured the patient that I am still available for consultation if needed. Patient Instructions - Increase your duloxetine dose to 40 mg daily by taking two of your 20 mg tablets. - You must take this new dose for at least one month to see if it helps your nerve pain, as it is not a medication that provides immediate relief. - Continue taking your other medications as prescribed, including Tylenol for pain. - Try to do exercises while sitting in your chair to move your muscles and improve blood flow, which will help your wound heal. - Make sure to drink plenty of fluids, especially water, to stay hydrated. - Continue using your oxygen at home as directed. - A follow-up appointment has been made for you with Dr. Adams for your primary care. - Continue your scheduled appointments with your other specialists, including wound care, pulmonology, and rheumatology. - Due to the high number of flu cases, consider wearing a mask when you are around large groups of people. Medications: New duloxetine 40 mg (2 x 20 mg) PO BEDTIME 60 caps 1RF neuropathic pain
[2025-06-27 10:28] VITALS: BP 110/64; PULSE 82; RESP 18; TEMP 36.3; O2SAT 93
--- OUTSIDE RECORDS SUMMARY | 2025-06-27 12:41 | XMS_ITS | Clinical Summary ---
Author Organization [facility] Address [address] [place] [id number] Phone Care Team Providers Care Facilities Maintenance Engineer Name Role Phone Kia Stroud MD Primary Care Provider [phone] Allergies No known active allergies Medications umeclidinium-vi [...] Diagnosed Date Rheumatoid arthritis of [facility] sites with negative rheumatoid factor 12/14/2021 [...] off Inflixamab. He is being followed by [facility] and receiving a prednisone [...] off Inflixamab. He is being followed by [facility] and receiving a prednisone taper, current dose 10 mg/day. Recent admission for cellulitis /wound infection of LE requiring Surgery,c/b DVT, PE,cardiac arrest now on coumadin. Followed by [facility] for significant skin ulceration -Will need to hold any biologic treatment until wounds healed. RA does not appear active currently on pred 10 mg -Will need derm involved for LE ulcers, ? PG- appointment scheduled with call center professional in [place] in near future -Unclear if he has [...] off Inflixamab. He is being followed by [facility] [place] and receiving a prednisone taper, current dose [...] now on prednisone taper , followed by [facility] Would recommend dermatology involvement Consider [facility] derm/rheum clinic Assessment & Plan (12/15/2021 12:00 AM EDT): Long hx of bilateral LE wounds Treated in past for venous stasis with minimal improvement Most recent pathology ? Venous stasis vs PG Resolution of ulcerations on Inflixamab supports the diagnosis of PG Off Inflixamab since 07/01 with recurrent ulcerations, now on prednisone taper , followed by [facility] Would recommend dermatology involvement Consider [facility] derm/rheum clinic Venous [...] EDT) SODIUM 143 133 - 146 mmol/L [facility] POTASSIUM 4.7 3.3 - 5.1 mmol/L [facility] CHLORIDE 105 96 - 108 mmol/L [facility] CO2 27 21 - 35 mmol/L [facility] BUN 43(H) 6 - 19 mg/dL [facility] CREATININE 0.80 0.5 - 1.5 mg/dL [facility] GLUCOSE 90 70 - 99 mg/dL [facility] ALBUMIN 3.5(L) 3.9 - 4.8 g/dL [facility] TOTAL PROTEIN 6.2(L) 6.5 - 8.0 g/dL [facility] CALCIUM 9.5 8.4 - 10.3 mg/dL [facility] ALKALINE PHOSPHATASE 72 39 - 117 U/L [facility] TOTAL BILIRUBIN <0.2 0.0 - 1.2 mg/dL [facility] AST 18 0 - 37 U/L [facility] ALT 34 0 - 40 U/L [facility] GLOBULIN 2.7 1 - 4.8 g/dL [facility] EGFR 92 >59 mL/min/1.7 3m2 [facility] Comment:Estimated glomerular filtration rate calculated using the CKD-EPI refit equation. ANION GAP 16 10 - 20 mmol/L [facility] Blood 02/13/2022 10:3 0 AM EDT 02/13/2022 11:28 PM EDT us Alesia Cornejo MD LAB BLOOD BKR ORDERABLES Final Result [facility] [address] [place] [address] from Last 3 Months or Most Recently Relevant to Health Maintenance Insurance [employer] PPO MEDICARE REPLACEMENT [employer] PPO MEDICARE REPLACEMENT AETNA O MEDICARE REPLACEMENT AETNA O MEDICARE REPLACEMENT AET[employer] O MEDICARE REPLACEMENT AET[employer] O MEDICARE REPLACEMENT AETNA O MEDICARE REPLACEMENT AETNA O MEDICARE REPLACEMENT [employer] PPO MEDICARE REPLACEMENT Care Teams Facilities Maintenance Engineer Relationship Specialty Start Date End Date Kia Stroud MD [address] [place] [id number] PCP - General Internal Medicine 02/25/22 Additional Source Comments The information contained in this document represents components of the legal health record. It is not the complete legal health record.[facility]
--- OUTSIDE RECORDS SUMMARY | 2025-06-27 12:41 | XMS_ITS | Patient Health Record ---
Author Organization [facility] Address [address] [place] [id number] Care Team Providers Care Kapok Machine Operator Name Role Phone Lalitha MORALES, William Primary Care Provider Kong Nava Unavailable [phone] Arnav Limon Unavailable Unavailable Allergies No Known Allergies Reason For Referral No Information Medications Medication SIG (Take, Route, Frequency, Duration) Notes Start Date End Date Status Enbrel SureClick 50 MG/ML Subcutaneous Active Problems Problem Type SNOMED Code ICD Code Onset Dates Problem Status W/U Status Risk Notes Problem Skin ulcer of calf (070441822) Ulcer (skin exp) LEFT CALF (L97.221) Active confirmed Problem Varicose veins of lower extremity (50746810) Vikash Insuf (other compl) LEFT (I83.892) Active confirmed Problem Vikash Insuf (ulcer) LEFT CALF (I83.022) Active confirmed Plan Of Treatment No Information Insurance Providers Payer Name Payer Address Payer Phone Subscriber Number Group Number Insured Name Patient Relationship to Insured Coverage Start Date Coverage End Date [employer] [address] [place] [address] [id number] Sarath Gipson Self - patient is the insured [employer] PPO,EPO & Medigap [address] [place] [address] [id number] Farideh Gipson Spouse - patient is the spouse of the insured [employer] [address] [place] [id number] Sarath Gipson Self - patient is the insured 8
--- OUTSIDE RECORDS SUMMARY | 2025-06-27 12:41 | XMS_ITS | Clinical Summary ---
Author Organization [facility] Address [address] [place] [id number] Care Team Providers Care Stoneworking Sander Name Role Phone Kia Stroud MD Primary Care Provider [phone] Allergies Active Allergy Reactions Criticality Noted Date [...] Description 06/15/2025 11:30 AM EST [address]illary Procedure [facility] Department of Vascular Ultrasound Imaging [address] [place] [address] Stacey Espinoza MD Non-pressure chronic ulcer of left lower leg, unspecified ulcer stage (HCC) 06/01/2025 11:30 AM EST Office Visit [facility] [address] [place] [address] Stacey Espinoza MD Non-pressure chronic ulcer of left lower leg, unspecified ulcer stage (HCC) (Primary Dx) 05/23/2025 2:00 PM EST Office Visit [facility] [address] [place] [address] Stacey Espinoza MD Pyoderma gangrenosa (Primary Dx) [...] Description 06/29/2025 11:30 AM EST Office Visit [facility] [address] [place] [id number] Health Maintenance Due Date Last Done Comments [...] [employer] MANAGED MEDICARE PPO [place]TE Care Teams Stoneworking Sander Relationship Specialty Start Date End Date Kia Stroud MD [address] [place] [address] PCP - General Family Medicine 05/08/25
== END 2025-06-27 11:24 | disposition home or self-care (01) ==
LOC: HO.HMCH 10:19
PROVIDERS: PCP Internal Medicine; Visit Provider Internal Medicine
DX: I10 Essential (primary) hypertension (principal); M06.09 Rheumatoid arthritis without rheumatoid factor, multiple sites; J44.9 Chronic obstructive pulmonary disease, unspecified; L88 Pyoderma gangrenosum; E78.1 Pure hyperglyceridemia; I77.810 Thoracic aortic ectasia; M79.605 Pain in left leg; G89.29 Other chronic pain; G62.9 Polyneuropathy, unspecified; G47.34 Idiopathic sleep related nonobstructive alveolar hypoventilation; Z87.891 Personal history of nicotine dependence; F32.9 Major depressive disorder, single episode, unspecified

== ENCOUNTER → 2025-06-27 10:18 | Outpatient (BNVA) | payer MEDICARE, SELFPAY | PROVIDERS: PCP Internal Medicine; Visit Provider Internal Medicine | DX: I10 Essential (primary) hypertension (principal); L88 Pyoderma gangrenosum; L97.829 Non-pressure chronic ulcer of other part of left lower leg with unspecified severity; G62.9 Polyneuropathy, unspecified; J44.9 Chronic obstructive pulmonary disease, unspecified; E78.1 Pure hyperglyceridemia; I77.810 Thoracic aortic ectasia; M06.09 Rheumatoid arthritis without rheumatoid factor, multiple sites; M79.605 Pain in left leg; G89.29 Other chronic pain; G47.34 Idiopathic sleep related nonobstructive alveolar hypoventilation; F32.9 Major depressive disorder, single episode, unspecified; Z99.81 Dependence on supplemental oxygen; Z87.891 Personal history of nicotine dependence | CPT/HCPCS: 99212 ==

== ENCOUNTER 2025-07-10 10:59 | Outpatient (AMB) | payer MEDICARE, SELFPAY ==
--- NOTE | 2025-07-10 11:00 | A.OFFVIS_ITS ---
Vital Signs 3 07/10/25 11:16 Height 5 ft 6 in Weight 185 lb BMI 29.9 BP 142/87 H Blood Pressure Location Lt brachial Position Sitting Pulse 74 Pulse Source Pulse Oximeter Pulse Oximetry (%) 96 Oxygen Delivery Method Room Air Intake Visit Reasons: Pill Count Intake Note: Sarath comes in today for a pill count to hydromorphone, patient should have 1 tablet and presents with 21 tablets which he last took 07/07/25. Pain today 04/20 Mortgage Loan Coordinator Required: No Accompanied by: Spouse Allergies heparin (porcine) Allergy (Severe, Verified 07/10/25 11:01) HIT HPI Comments Details: The patient is a 79-year-old male presenting for a pill count and chronic pain management. He has a chronic non-healing wound on his left lower extremity, which is the source of his chronic pain. Due to poor healing of this wound, he utilizes wheelchair for mobility. His pain is reported at 8-10 today with episodic throbbing pain in left foot. Patient is prescribed hydromorphone 2 mg for pain, which he takes once daily. He receives Wound care at a facility in [place]. Patient reports no significant improvement in his wound healing and has been taking hydromorphone daily with dressing changes with good tolerance and without significant adverse effects. He also takes gabapentin twice daily but notes he wakes up regularly at night due to left foot pain. Denies any fever, chills, cough, weight loss, bleeding, weakness, dizziness, shortness of breaths, constipation, nausea, sedation, urinary retention or abdominal pain. 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 Acute pulmonary embolism with acute cor pulmonale Acute pulmonary embolism Cardiac arrest CKD (chronic kidney disease) stage 3, GFR 30-59 ml/min Sjogren's disease Leg pain, bilateral Elevated serum creatinine COPD (chronic obstructive pulmonary disease) HTN (hypertension) Rheumatoid arthritis Chronic ulcer of leg Surgical History History of ankle surgery History of hernia repair History of left knee replacement Family History Sister Breast cancer Father Aneurysm Mother Angina at rest Other No family history of coronary artery disease Social History Household Members: Spouse Housing: House Do you presently have visiting nurse or other home services: No Alcohol intake: current Alcohol intake frequency: does not drink Comment: restraints Patient Tobacco Use Status: Former Tobacco user Tobacco use type: Cigarette Cigarette Packs Per Day: 1 Years Smoked: quit + years e-Cigarette/Vaping Use: Never Used Second Hand Smoke Exposure: Yes Advance Directives Date on File: 12/23/21 service: No Current occupational status: retired Cognitive needs: Yes (Wheelchair) Hearing needs: No Vision needs: Yes (Pt wear glasses. ) Review of Systems Const All systems reviewed & are unremarkable except as noted in HPI and below Physical Exam Vital Signs: Last Vital Signs Pulse 74 07/10/25 11:16 BP 142/87 H 07/10/25 11:16 Pulse Ox 96 07/10/25 11:16 Oxygen Delivery Method Room Air 07/10/25 11:16 BMI result Body Mass Index 29.9 General: Appears afebrile. Alert and oriented. Mood and affect appropriate. Follows and participates in conversation appropriately. Respiratory effort is unlabored. No cough. Sitting comfortably in the wheelchair. Eyes General: appearance normal, both eyes and all related structures Resp Effort & Inspection: normal respiratory effort, able to speak in complete sentences, no audible wheezes, no cough, respiratory effort not decreased and no respiratory distress Extrem Other: Left foot in dressing, dry intact, no drainage General: Yes capillary refill normal, Yes no calf tenderness, No clubbing, No cyanosis and Yes pedal edema (trace, bilateral) Psych Appearance: grossly normal and well kempt Mental Status: mental status grossly normal Speech and movement: Normal speech and movement present and Clear speech present Affect: normal affect Attitude: cooperative Thought process: Normal thought process present Thought content: Normal thought content present, suicidality (none), no hallucinations and No Depressive thoughts present Insight: Good insight present (Psych) Judgement: Good judgement present (Psych) Results Reviewed Results Reviewed: Assessment & Plan Assessment & Plan (1) Neuropathic pain: Code(s): M79.2 - Neuralgia and neuritis, unspecified Category: Medical (2) Chronic pain of left lower extremity: Code(s): M79.605 - Pain in left leg; G89.29 - Other chronic pain Category: Medical (3) Chronic, continuous use of opioids: Code(s): F11.90 - Opioid use, unspecified, uncomplicated Category: Medical (4) Peripheral neuropathy: Code(s): G62.9 - Polyneuropathy, unspecified Category: Medical Qualifiers: Peripheral neuropathy type: polyneuropathy, unspecified Qualified Code(s): G62.9 - Polyneuropathy, unspecified (5) Non-healing wound of left lower extremity: Code(s): S81.802A - Unspecified open wound, left lower leg, initial encounter Category: Medical Plan Patient has shown accountability for his medication regimen and the pill count was accurate. There is no evidence of misuse, abuse or diversion at this time. [facility] Will hold of on refill for hydromorphine 2 mg once daily prn due to surplus which he takes for wound care/dressing changes only. Patient will notify our office when he is down to 5-10 tablets so we can send refill. Continue duloxetine, gabapentin and Tylenol as needed. Patient has Narcan at home. Will change gabapentin to 600 mg in the morning and 800 mg at bedtime and keep duloxetine 20 mg 1 cap at bedtime. Patient will continue follow-up at the wound care center in [place] for his non-healing left lower extremity wound. All questions were answered and the patient is in agreement with the plan. Follow up in 4-5 weeks for a pill count or sooner if needed. Patient was informed and verbally consented to the use of an ambient scribe for clinic note documentation during this visit. Medications: New 2 gabapentin 800 mg PO BEDTIME 30 tabs 0RF pain 30 days M79.2 - Neuralgia and neuritis, unspecified Coding Level of Care Code Est Pt Level 4 (52534) Add On Problem Visit Only Diagnoses Neuropathic pain M79.2 Chronic pain of left lower extremity M79.605; G89.29 Chronic, continuous use of opioids F11.90 Peripheral polyneuropathy G62.9 Peripheral neuropathy type: polyneuropathy, unspecified Non-healing wound of left lower extremity S81.802A
[2025-07-10 11:16] VITALS: BP 142/87; PULSE 74; O2SAT 96; BMI 29.9
--- OUTSIDE RECORDS SUMMARY | 2025-07-10 14:57 | XMS_ITS | Patient Health Record ---
Author Organization [facility] Address [address] [place] [id number] Care Team Providers Care Engineering Production Liaison Name Role Phone Lalitha MORALES, William Primary Care Provider Kong Nava Unavailable [phone] Arnav Limon Unavailable Unavailable Allergies No Known Allergies Reason For Referral No Information Medications Medication SIG (Take, Route, Frequency, Duration) Notes Start Date End Date Status Enbrel SureClick 50 MG/ML Subcutaneous Active Problems Problem Type SNOMED Code ICD Code Onset Dates Problem Status W/U Status Risk Notes Problem Skin ulcer of calf (266308456) Ulcer (skin exp) LEFT CALF (L97.221) Active confirmed Problem Varicose veins of lower extremity (99686836) Vikash Insuf (other compl) LEFT (I83.892) Active confirmed Problem Vikash Insuf (ulcer) LEFT CALF (I83.022) Active confirmed Plan Of Treatment No Information Insurance Providers Payer Name Payer Address Payer Phone Subscriber Number Group Number Insured Name Patient Relationship to Insured Coverage Start Date Coverage End Date [employer] Blue [address] [place] [address] [id number] Sarath Gipson Self - patient is the insured [employer] PPO,EPO & Medigap [address] [place] [address] [id number] Farideh Gipson Spouse - patient is the spouse of the insured [employer] [address] [place] [address] [id number] Sarath Gipson Self - patient is the insured 8
--- OUTSIDE RECORDS SUMMARY | 2025-07-10 14:57 | XMS_ITS | Clinical Summary ---
Author Organization [facility] Address [address] [place] [address] Care Team Providers Care Lead Case Manager Name Role Phone Kia Stroud MD Primary Care Provider [phone] Social History Tobacco Use Types Packs/Day Years [...] this topic Insurance [employer] [place] [address] Care Teams Lead Case Manager Relationship Specialty Start Date End Date Kia Stroud MD [facility] [employer] [facility] [address] [place], [place] PCP - General Internal Medicine 12/04/21
--- OUTSIDE RECORDS SUMMARY | 2025-07-10 14:57 | XMS_ITS | Encounter Summary ---
Author Organization [facility] Address [address] [place] [address] Care Team Providers Care Business Account Executive Name Role Phone Kia Stroud MD Primary Care Provider [phone] Encounter Details Date Type Department Care Team (Late st Contact Info) Description 06/29/2025 Results Follow-Up [facility] Department of Wound Care [address] [place] [address] Stacey Espinoza MD [address] [place] [address] Venous doppler lower extremity bilateral Social History Tobacco Use Types Packs/Day Years Used Date Smoking Tobacco: Former Cigarettes 2 61 S tarted: 1965 Smokeless Tobacco: Never Alcohol [...] suspected to have Coronavirus/COVID-19? No / Unsure 06/29/2025 11:04 AM EST documented as of this encounter Progress Notes * Stacey Espinoza MD - 06/29/2025 12:50 PM EST Spoke to patient about venous doppler results that there was no evidence of incompetent veins. Blanka, can we mail a copy to patient to bring to patient's PCP to look at the lymph node that was pointed out on doppler? Thanks. documented in this encounter Plan of Treatment Upcoming Encounters Date Type Department Care Team (Late st Contact Info) Description 07/13/2025 11:30 AM EST Office Visit [facility] Department of Wound Care [address] [place] [address] documented as of this encounter Visit Diagnoses Not on filedocumented in this encounter Care Teams Business Account Executive Relationship Specialty Start Date End Date Po, Kia Liu MD [address] [place] [address] [address] [place] [address] PCP - General Family Medicine 05/08/25 documented as of this encounter
--- OUTSIDE RECORDS SUMMARY | 2025-07-10 14:57 | XMS_ITS | Clinical Summary ---
Author Organization [facility] Address [address] [place] [address] Care Team Providers Care Ginger Farmer Name Role Phone Kia Stroud MD Primary Care Provider [phone] Allergies Active Allergy Reactions Criticality Noted Date [...] 400 g 1 5 05/23/20 26 Active Active Problems No known active problems Encounters Date Type Department Care Team Description 06/29/2025 11:30 AM EST Office Visit [facility] Department of Wound Care [address] [place] [address] Stacey Espinoza MD Pyoderma gangrenosa (Primary Dx); Non-pressure chronic ulcer of left lower leg, unspecified ulcer stage (HCC) 06/29/2025 Results Follow-Up [facility] [address] [place] [id number] Stacey Espinoza MD Venous doppler lower extremity bilateral 06/15/2025 11:30 AM EST Ancillary Procedure [facility] Department of Vascular Ultrasound Imaging [address] [place] [address] Stacey Espinoza MD Non-pressure chronic ulcer of left lower leg, unspecified ulcer stage (HCC) 06/01/2025 11:30 AM EST Office Visit [facility] Department of Wound Care [address] [place] [address] Stacey Espinoza MD Non-pressure chronic ulcer of left lower leg, unspecified ulcer stage (HCC) (Primary Dx) 05/23/2025 2:00 PM EST Office Visit [facility] [address] [place] [address] Stacey Espinoza MD Pyoderma gangrenosa (Primary Dx) [...] No / Unsure 06/29/2025 11:04 AM EST Last Filed Vital Signs Vital Sign Reading Time Taken Comments Blood Pressure 117/82 06/29/2025 11:04 AM EST Pulse 80 06/29/2025 11:04 AM EST Temperature 36.7 C (98.1 F) 06/29/2025 11:04 AM EST Respiratory Rate 18 06/29/2025 11:04 AM EST Oxygen Saturation 93% 06/29/2025 11:04 AM EST Inhaled Oxygen Concentration - - Weight 81.6 kg (180 lb) 05/23/2025 2:32 PM EST Height 167.6 cm (5' 6 ) 05/23/2025 2:32 PM EST Body Mass Index 29.05 05/23/2025 2:32 PM EST Plan of Treatment Upcoming Encounters Date Type Department Care Team (Late st Contact Info) Description 07/13/2025 11:30 AM EST Office Visit [facility] Department of Wound Care [address] [place] [address] Health Maintenance Due Date Last Done Comments HIV Screening 1945 Medicare Annual Wellness (AWV) 1945 Hepatitis C Screening 11[birth year]06/1963 Zoster Vaccines (1 of 2) 11/06/1995 COVID-19 Vaccine ( season) 2025 06/27/2022, 06/10/2021, 05/11/2021, Additional history exists Influenza Vaccine (#1) 2025 , 04/27/2024, 04/08/2023, Additional history exists DTaP,Tdap,and Td Vaccines (2 - Td or Tdap) 10/21/2033 10/22/2023 Pneumococcal Vaccine, 50+ Years Completed 10/22/2023, 09/03/2017, 07/12/2017, Additional history exists HPV Vaccines Aged Out No longer eligi [...] Bilateral Ultrasound 06/15/2025 11:3 0 AM EST us Stacey Espinoza MD CV VASCULAR PROCEDURES Final Res ult from Last 3 Months Insurance [employer] MANAGED MEDICARE PPO [place] Care Teams Ginger Farmer Relationship Specialty Start Date End Date Kia Stroud MD [address] [facility] [address] [place] [address] PCP - General Family Medicine 05/08/25
--- OUTSIDE RECORDS SUMMARY | 2025-07-10 14:57 | XMS_ITS | Clinical Summary ---
Author Organization [facility] Address [address] [place] [address] Phone Care Team Providers Care Supervisor Fish Processing Name Role Phone Kia Stroud MD Primary Care Provider [phone] Allergies No known active allergies Medications umeclidinium-vi [...] Noted Date Diagnosed Date Rheumatoid arthritis of [facility] sites with negative rheumatoid factor 12/14/2021 Overview [...] off Inflixamab. He is being followed by [facility] and receiving a prednisone [...] off Inflixamab. He is being followed by [facility] and receiving a prednisone taper, current dose 10 mg/day. Recent admission for cellulitis /wound infection of LE requiring Surgery,c/b DVT, PE,cardiac arrest now on coumadin. Followed by [facility] for significant skin ulceration -Will need to hold any biologic treatment until wounds healed. RA does not appear active currently on pred 10 mg -Will need derm involved for LE ulcers, ? PG- appointment scheduled with chimney sweeper in [place] in near future -Unclear if [...] off Inflixamab. He is being followed by [facility] and receiving a prednisone taper, current dose [...] now on prednisone taper , followed by [facility] Would recommend dermatology involvement Consider [facility] derm/rheum clinic Assessment & Plan (12/15/2021 12:00 AM EDT): Long hx of bilateral LE wounds Treated in past for venous stasis with minimal improvement Most recent pathology ? Venous stasis vs PG Resolution of ulcerations on Inflixamab supports the diagnosis of PG Off Inflixamab since 07/01 with recurrent ulcerations, now on prednisone taper , followed by [facility] Would recommend dermatology involvement Consider [facility] derm/rheum clinic Venous insufficiency 09/30/2021 [...] EDT) SODIUM 143 133 - 146 mmol/L [facility] POTASSIUM 4.7 3.3 - 5.1 mmol/L [facility] CHLORIDE 105 96 - 108 mmol/L [facility] CO2 27 21 - 35 mmol/L [facility] BUN 43(H) 6 - 19 mg/dL [facility] CREATININE 0.80 0.5 - 1.5 mg/dL [facility] GLUCOSE 90 70 - 99 mg/dL [facility] ALBUMIN 3.5(L) 3.9 - 4.8 g/dL [facility] TOTAL PROTEIN 6.2(L) 6.5 - 8.0 g/dL [facility] CALCIUM 9.5 8.4 - 10.3 mg/dL [facility] ALKALINE PHOSPHATASE 72 39 - 117 U/L [facility] TOTAL BILIRUBIN <0.2 0.0 - 1.2 mg/dL [facility] AST 18 0 - 37 U/L [facility] ALT 34 0 - 40 U/L [facility] GLOBULIN 2.7 1 - 4.8 g/dL [facility] EGFR 92 >59 mL/min/1.7 3m2 [facility] Comment:Estimated glomerular filtration rate calculated using the CKD-EPI refit equation. ANION GAP 16 10 - 20 mmol/L [facility] Blood 02/13/2022 10:3 0 AM EDT 02/13/2022 11:28 PM EDT us Alesia Cornejo MD LAB BLOOD BKR ORDERABLES Final Result [facility] [address] [place] [address] from Last 3 Months or Most Recently Relevant to Health Maintenance Insurance [employer] PPO MEDICARE REPLACEMENT AETNA PPO MEDICARE REPLACEMENT AETNA O MEDICARE REPLACEMENT AETNA O MEDICARE REPLACEMENT AETNA O MEDICARE REPLACEMENT AETNA O MEDICARE REPLACEMENT AETNA O MEDICARE REPLACEMENT AETNA O MEDICARE REPLACEMENT AETNA PPO MEDICARE REPLACEMENT Care Teams Supervisor Fish Processing Relationship Specialty Start Date End Date Kia Stroud MD [address] [place] [phone] PCP - General Internal Medicine 02/25/22 Additional Source Comments The information contained in this document represents components of the legal health record. It is not the complete legal health record.[facility]
== END 2025-07-10 11:48 | disposition home or self-care (01) ==
LOC: HO.PMC 11:00
PROVIDERS: PCP Internal Medicine; Visit Provider Nurse Practitioner Family
DX: M79.2 Neuralgia and neuritis, unspecified (principal); M79.605 Pain in left leg; G89.29 Other chronic pain; Z79.891 Long term (current) use of opiate analgesic; G62.9 Polyneuropathy, unspecified; S81.802A Unspecified open wound, left lower leg, initial encounter
CPT/HCPCS: 99214; G2211

== ENCOUNTER → 2025-07-10 10:59 | Outpatient (BNVA) | payer MEDICARE, SELFPAY | PROVIDERS: PCP Internal Medicine; Visit Provider Nurse Practitioner Family | DX: F11.90 Opioid use, unspecified, uncomplicated (principal); M79.662 Pain in left lower leg; G89.29 Other chronic pain; M79.2 Neuralgia and neuritis, unspecified; S81.802A Unspecified open wound, left lower leg, initial encounter; I10 Essential (primary) hypertension; Z87.891 Personal history of nicotine dependence | CPT/HCPCS: 99212 ==